=== PATIENT | female | born 1945 | race Caucasian/White ===

== ENCOUNTER 2023-09-15 21:13 | Emergency (ER) | payer MEDICARE, SELFPAY ==
--- NOTE | ~2023-09-15 | CT_ITS ---
Noncontrast CT scan of the cervical spine Technique: Multiple contiguous axial [address] images of the cervical spine were obtained and rec onstructed in 2D sagittal and coronal planes on the acquisition scanner. Dose reduction technique was used on this scan by utilizing automated exposure control, adjustment of the mA and/or kV according to patient size. The dose-length product (DLP) was 339.28 mGy-cm. Clinical History: Pain Findings: No acute fracture seen. There is 4 mm anterolisthesis of C3 over C4, with reversal normal c ervical lordosis. There is severe degenerative disc narrowing throughout the cervical spine. There is fusion of the facet joints at C4-C5, with partial fusion across this disc space. There is advanced d egenerative change at the articulation of the odontoid process with the anterior arch of C1. There is left neural foraminal narrowing at C2-C3 with probable left facet arthropathy. There is bilateral ne ural foraminal narrowing at C3-C4 with severe facet arthropathy bilaterally. There is bilateral neura l foraminal narrowing at C4-C5 and C5-C6. There is moderate canal stenosis at C5-C6. There is bilater al neural foraminal narrowing at C6-C7, with moderate canal stenosis. No prevertebral soft tissue swe lling. Impression: No acute fracture. 4 mm anterolisthesis of C3 over C4. Severe degenerative spondylosis, as above. Reviewed, dictated and finalized at [facility]. Impression: No acute fracture. 4 mm anterolisthesis of C3 over C4. Severe degenerative spondylosis, as above.
--- NOTE | ~2023-09-15 | XR_ITS ---
EXAM: XR hip LT 2V w AP pelvis DATE: 09/15/2023 23:06 HISTORY: fall . COMPARISON: None available. FINDINGS: Decreased mineralization. Lumbar degenerative disc disease. 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 Scattered vascular calcifications. IMPRESSION: No acute osseous finding in the pelvis. Reviewed, dictated and finalized at location K.
--- NOTE | ~2023-09-15 | XR_ITS ---
EXAMINATION: XR chest 1V portable Exam Date/Time: 09/15/2023 21:55 CDT HISTORY: weakness Comparison: None. RESULT: Lines, tubes, and devices: None. Lungs and pleura: Rightward rotation. Possible right suprahilar mass with adjacent atelectasis. [place] scent/emphysematous changes in the lungs.. Cardiomediastinal silhouette: Unremarkable. Other: No acute osseous or upper abdominal finding. IMPRESSION: Rotation limited examination, possible right hilar mass. Consider CT of the chest with contrast for f urther evaluation. Reviewed, dictated and finalized at location K. IMPRESSION: Rotation limited examination, possible right hilar mass. Consider CT of the [address] st with contrast for further evaluation.
--- NOTE | ~2023-09-15 | CT_ITS ---
CT head without contrast Indication: Status post fall Technique: Serial scans were obtained through the brain without the administration of contrast. Dose reduction technique was used on this scan by utilizing automated exposure control and iterative recon struction technique. The dose-length product (DLP) was 605.33 mGy-cm. Findings: There is no evidence of intracranial hemorrhage, mass lesion, or acute infarct. The ventri cles and subarachnoid spaces are dilated, consistent with mild atrophy. Low attenuation regions are seen within the periventricular white matter bilaterally, likely representing changes from chronic mi crovascular ischemic disease. There is no evidence of edema, mass effect or midline shift. The visu alized paranasal sinuses and mastoid air cells are clear. Impression: No intracranial hemorrhage, mass, or acute infarct. Atrophy and chronic white matter changes, as above. Reviewed, dictated and finalized at location . Impression: No intracranial hemorrhage, mass, or acute infarct. Atrophy and chronic white matter changes, as above.
--- NOTE | ~2023-09-15 | XR_ITS ---
EXAM: XR knee LT 3V, XR tibia fibula LT 2V, XR ankle LT min 3V DATE: 09/15/2023 23:06 HISTORY: fall this evening; bruising to left lower leg . COMPARISON: None available. FINDINGS: Decreased mineralization. Comminuted fracture of the distal left tibial metaphysis, with e xtension of fracture lines to the ankle joint, 6 mm medial displacement, 5 mm anterior displacement, and minimal 3 degrees lateral angulation. Comminuted fracture of the distal left fibula above the lev el of the joint line, with 3 mm lateral displacement, 2 mm anterior displacement, minimal 2 degrees o f medial angulation, and 8 degrees anterior angulation. No lytic or blastic lesion. Degenerative olguin ges in the knee and ankle joint. Achilles enthesopathy No erosion or periosteal change. Soft tissues within normal limits. IMPRESSION: No acute osseous finding in the knee. Comminuted intra-articular fracture of the distal left tibial metaphysis, with mild anteromedial disp lacement and minimal lateral angulation. Comminuted distal left fibular fracture, with minimal juan lateral displacement and mild anterior angulation. Reviewed, dictated and finalized at location K. IMPRESSION: No acute osseous finding in the knee. Comminuted intra-articular fracture of the distal left tibial metaphysis, with mild anteromedial displacement and minimal lateral angulation. Comminuted dista l left fibular fracture, with minimal anterolateral displacement and mild anter ior angulation. IMPRESSION: No acute osseous finding in the knee. Comminuted intra-articular fracture of the distal left tibial metaphysis, with mild anteromedial displacement and minimal lateral angulation. Comminuted dista l left fibular fracture, with minimal anterolateral displacement and mild anter ior angulation.
[2023-09-15 21:14] VITALS: BP 125/63; PULSE 109; RESP 15; TEMP 37.1; O2SAT 97
--- NOTE | 2023-09-15 21:30 | ECG_ITS ---
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 Measurements Intervals [place] Rate: 125 P: 42 WV: 145 QRS: 42 QRSD: 78 T: 50 QT: 290 QTc: 419 Interpretive Statements SINUS TACHYCARDIA WITH OCCASIONAL SUPRAVENTRICULAR PREMATURE COMPLEXES SEPTAL MYOCARDIAL INFARCTION , PROBABLY OLD [40+ ms Q WAVE IN V1/V2] No previous ECG available for comparison Electronically Signed On 09-16-2023 13:56:24 CDT by Ricarda Gonzales M.D.
[2023-09-15 21:31] VITALS: BP 129/73; PULSE 130; RESP 14; O2SAT 96
[2023-09-15 21:42] LABS: Basophils Percent Auto 0.2 % (0.2-1.2); Eosinophils Percent Auto 0.1 % (0-4.4); Hemoglobin 13.3 g/dL (12.0-15.0); Immature Granulocyte Absolute 0.07 K/mm3 (0.00-0.031); Immature Granulocyte Percent A 0.5 % (0-0.5); Lymphocytes Absolute Auto 1.34 K/mm3 (0.9-3.2); Lymphocytes Percent Auto 9.6 % (18.3-44.2); Mean Corpuscular HGB Conc 32.4 g/dl (32-36); Mean Corpuscular Hemoglobin 29.6 pg (26-34); Mean Corpuscular Volume 91.1 fl (80-100); Monocytes Absolute Auto 1.5 K/mm3 (0.1-0.6); Monocytes Percent Auto 10.8 % (2.6-8.5); Neutrophils Percent Auto 78.8 % (45.5-73.1); Platelet Count Result 233 k/mm3 (150-375); Red Cell Distribution Width 12.8 % (11.5-14.5); White Blood Count 13.9 K/mm3 (4.5-10.0)
[2023-09-15 21:44] LABS: Appearance Urine Clear (Clear); Bilirubin Urine Negative (Negative); Blood Urine 2+ (Negative); Color Urine Dark Yellow (Yellow); Glucose Urine UA Negative (Negative); Ketones Urine 3+ mg/dL (Negative); Leukocyte Esterase Ur Negative LEU/UL (Negative); Nitrate Urine Negative (Negative); Protein Urine 3+ mg/dL (Negative); Specific Grav Ur 1.026 (1.001-1.035); pH Urine 5.5 (5.0-9.0)
[2023-09-15 21:45] LABS: Bacteria Urine None Seen /hpf; Non Pathogenic Casts 0-2; Squamous Epithelial Cell Urine None Seen /hpf (Few); WBC Urine 0-5 /hpf (0-3)
[2023-09-15 21:48] LABS: Add Urine Microscopic? YES
[2023-09-15 21:52] LABS: Alanine Aminotransferase 35 U/L (6-35); Albumin Level 3.8 g/dL (3.5-5.1); Alkaline Phosphatase 83 U/L (38-126); Anion Gap 6 mmol/L (4-12); Aspartate Amino Transferase 85 U/L (14-36); Bilirubin,Total 1.3 mg/dL (0.2-1.3); Blood Urea Nitrogen 17 mg/dL (7-17); Calcium 8.8 mg/dL (8.4-10.2); Carbon Dioxide 27 mmol/L (22-30); Chloride 102 mmol/L (98-107); Estimated CRCL calculation 72 ml/min; Estimated Glomerular Filt Rate > 60; Glucose 102 mg/dL (65-110); Potassium 3.8 mmol/L (3.4-5.0); Sodium 135 mmol/L (137-145)
[2023-09-15 22:01] VITALS: BP 114/71; PULSE 103; RESP 20; O2SAT 96
[2023-09-15 22:31] VITALS: BP 132/81; PULSE 122; RESP 20; O2SAT 95
[2023-09-15 23:05] VITALS: BP 128/106; O2SAT 97
--- NOTE | 2023-09-15 23:19 | ED.FALL ---
HPI - Fall General Chief Complaint: Fall <HE Snider Last Filed: 09/16/23 01:18> Stated Complaint: fall <HE Snider Last Filed: 09/16/23 01:18> Time Seen by Provider: 09/15/23 22:56 <HE Snider Last Filed: 09/16/23 01:18> Source: patient <HE Snider Last Filed: 09/16/23 01:18> Mode of arrival: ambulatory <HE Snider Last Filed: 09/16/23 01:18> Limitations: no limitations <HE Snider Last Filed: 09/16/23 01:18> History of Present Illness HPI Narrative: Patient is a 78-year-old female who presents to the ED via EMS with report of a fall. Patient reports she fell yesterday morning (Thursday) around 430am in her bathroom. She states the floor was slick and her walker rolled forward, causing her to fall. She twisted her left leg in the fall. Was unable to get up off the ground due to pain in her left leg/ankle. She states she laid on the ground until Thursday evening when she was able to crawl to her phone to call her daughter. Daughter was unable to lift her off the floor, EMS was called around 7pm. Patient complains of pain to her left ankle. Denies left knee or hip pain. Also reports that her right fingers feel tingly. Denies numbness. Denies neck or back pain. She does not believe that she hit her head in the fall. Denies chest or abdominal pain. <HE Snider Last Filed: 09/16/23 01:18> Related Data Allergies/Adverse Reactions: Allergies Allergy/AdvReac Type Severity Reaction Status Date / Time No Known Allergies Allergy Verified 09/15/23 23:23 <HE Snider Last Filed: 09/16/23 01:18> Review of Systems Review of Systems: CONSTITUTIONAL: Denies fever, chills, or sweats. ENT: Denies vision changes. CARDIOVASCULAR: Denies chest pain. RESPIRATORY: Denies dyspnea. GASTROINTESTINAL: Denies abdominal pain, nausea, vomiting. MUSCULOSKELETAL: See HPI. NEUROLOGIC: See HPI. <Christine Wilcox PA-C - Last Filed: 09/16/23 01:18> All systems reviewed & are unremarkable except as noted in HPI and below <Christine Wilcox PA-C - Last Filed: 09/16/23 01:18> Exam Narrative: GENERAL: Elderly, obese with BMI of 30.6, non-toxic, in no acute distress. HEAD: Normocephalic, atraumatic. ENT: Edentulous. RESPIRATORY: Airway patent, respirations nonlabored. Clear to auscultation bilaterally, no rales, rhonchi, wheezing. CARDIOVASCULAR: Regular rate and rhythm without murmurs, rubs, or gallops. peripheral pulses easily palpable. MUSCULOSKELETAL: Limited range of motion of left lower extremity due to pain. Significant bruising noted to left lower leg. Tenderness to palpation diffusely throughout left ankle joint. Mild swelling noted, some pitting edema noted throughout left lower extremity. Sensation is intact throughout foot and ankle. Capillary refill intact. No significant tenderness throughout left knee or hip joint. Sensation intact throughout right arm but patient reporting subjective decreased sensation throughout right fingers. Sharp touch sensation is intact. Capillary refill intact. No significant tenderness throughout right upper extremity. No tenderness throughout cervical spine. SKIN: Warm, dry, normal color. NEURO: A&O X3. Speech clear. PSYCHIATRIC: Appropriate mood and affect. Normal interaction. <Christine Wilcox PA-C - Last Filed: 09/16/23 01:18> Course [employer]/PA Physician Supervision For this patient encounter, I reviewed the [employer] or PA documentation, treatment plan, and medical decision making and had [id number] time with this patient. I performed all aspects of the MDM as documented. <Mandy Martinez MD - Last Filed: 09/16/23 03:49> Vital Signs Vital signs: Vital Signs Temperature 98.8 F 09/15/23 21:14 Pulse Rate 109 H 09/15/23 21:14 Respiratory Rate 15 09/15/23 21:14 Blood
[2023-09-15 23:32] LABS: Magnesium 1.7 mg/dL (1.6-2.3)
[2023-09-15] MEDS: ONDANSETRON INJ 4 MG/2 ML VIAL IV PUSH (23:44)
[2023-09-15] MEDS: MORPHINE SULFATE (*CRX) 2 MG/ML INJ IV PUSH (23:44)
[2023-09-15] MEDS: ACETAMINOPHEN 325 MG TABLET 650 MG PO (23:44)
[2023-09-15] MEDS: SODIUM CHLORIDE 0.9% IV 1,000 ML 999 ML IV CONT (23:45)
[2023-09-16 00:09] LABS: Creatine Kinase 2029 U/L (30-135)
[2023-09-16 00:19] LABS: NT Pro B Type Natriuretic Pept 615 pg/mL (19.9-100)
[2023-09-16] MEDS: MAGNESIUM SULF 1 GM/D5W 100 ML 1 GM/100 ML BAG IVPB (00:43)
[2023-09-16] MEDS: SODIUM CHLORIDE 0.9% IV 1,000 ML 999 ML IV CONT (00:44)
[2023-09-16 01:01] VITALS: BP 118/61; PULSE 97; RESP 15; O2SAT 98
[2023-09-16] MEDS: ONDANSETRON INJ 4 MG/2 ML VIAL IV PUSH (01:29)
[2023-09-16] MEDS: MORPHINE SULFATE (*CRX) 4 MG/ML INJ IV PUSH (01:29)
[2023-09-16 01:31] VITALS: BP 98/57; PULSE 92; RESP 20; O2SAT 94
== END 2023-09-16 02:00 | disposition short-term general hospital (02) ==
PROVIDERS: Student in an Organized Health Care Education/Training Program; Emergency Provider Physician Assistant
DX: S89.192A Other physeal fracture of lower end of left tibia, initial encounter for closed fracture (principal); S82.832A Other fracture of upper and lower end of left fibula, initial encounter for closed fracture; T79.6XXA Traumatic ischemia of muscle, initial encounter; E86.0 Dehydration; E66.9 Obesity, unspecified; Z68.30 Body mass index [BMI] 30.0-30.9, adult; M47.812 Spondylosis without myelopathy or radiculopathy, cervical region; R00.0 Tachycardia, unspecified; I49.1 Atrial premature depolarization; R94.31 Abnormal electrocardiogram [ECG] [EKG]; W01.0XXA Fall on same level from slipping, tripping and stumbling without subsequent striking against object, initial encounter
CPT/HCPCS: 36415; 70450; 71045; 72125; 73502; 73562; 73590; 73610; 80053; 81001; 82550; 83735; 83880; 85025; 93005; 96361; 96365; 96375; 96376; 99285; A9270; J2270; J2405; J3475; J7030

== ENCOUNTER 2023-11-29 14:07 | Emergency (ER) | payer MEDICARE, SELFPAY ==
--- NOTE | ~2023-11-29 | CT_ITS ---
EXAMINATION: CT cervical spine wo con DATE: 11/29/2023 16:24 INDICATION: Neck pain. TECHNIQUE: Computed tomography (CT) of the cervical spine was performed without intravenous contrast. Automated exposure control and iterative reconstruction technique were employed. The dose-length pro duct was 238.98 mGy-cm. COMPARISON: CT cervical spine 09/16/2023 FINDINGS: There is mild emphysema. There is mild scarring at the lung apices. There is 5 degrees levo curvature of cervical spine. There is 2 mm anterolisthesis of C4 on C5. There is kyphosis of cervical spine. There are changes of posterior fusion procedure from C2 to C7 with lateral mass screws and pe dicle screws at some levels. There are laminectomies from C3 to C6. Vertebral body heights are normal . There is severely decreased disc height from C3-C4 through C7-T1 with interbody fusion at C4-C5. Th e following disc levels are specifically discussed: C2-C3: There is mild bilateral uncovertebral joint osteoarthritis. There is severe bilateral facet mauro int osteoarthritis. There is mild right and moderate left neural foraminal stenosis. There is mild ce ntral canal stenosis. C3-C4: There is severe bilateral uncovertebral joint osteoarthritis. There is severe right and modera te left facet joint osteoarthritis. There is moderate right and mild left neural foraminal stenosis. There is mild central canal stenosis with posterior decompression. C4-C5: There is severe right and moderate left uncovertebral joint hypertrophy. There is mild right a nd severe left facet joint hypertrophy. There is mild right and moderate left neural foraminal stenos is. There is mild central canal stenosis with posterior decompression. C5-C6: There is severe bilateral uncovertebral joint osteoarthritis. There is severe bilateral facet joint osteoarthritis. There is moderate bilateral neural foraminal stenosis. There is mild central ca nal stenosis with posterior decompression. C6-C7: There is severe bilateral uncovertebral joint osteoarthritis. There is moderate bilateral face t joint osteoarthritis. There is mild right and moderate left neural foraminal stenosis. There is mil d central canal stenosis with posterior decompression. C7-T1: There is severe bilateral uncovertebral joint osteoarthritis. There is severe bilateral facet joint osteoarthritis. There is moderate bilateral neural foraminal stenosis. There is mild central ca nal stenosis. IMPRESSION: 1. No fracture. 2. Severe cervical spondylosis. 3. Posterior fusion procedure from C2 to C7. Reviewed, dictated and finalized at location E.
--- NOTE | ~2023-11-29 | CT_ITS ---
EXAMINATION: CT thoracic lumbar wo con DATE: 11/29/2023 16:25 INDICATION: Back pain. TECHNIQUE: Computed tomography (CT) of the thoracic and lumbar spine was performed without intravenou s contrast. Automated exposure control and iterative reconstruction technique were employed. The dose -length product was 1479.10 mGy-cm. COMPARISON: None FINDINGS: CT THORACIC SPINE: There is a moderate-sized sliding hiatal hernia. There is mild scarring at the zaid g apices. Bone alignment is normal. There is mild chronic anterior wedging of T6 and T12 vertebral juanjose dies. There is decreased disc height at most levels, severe from T1-T2 through T6-T7 and at T12-L1. T here is multilevel facet joint osteoarthritis, severe at some levels. There is multilevel mild neural foraminal stenosis. On the right, there is moderate neural foraminal stenosis at T1-T2 and T2-T3. On the left, there is moderate neural foraminal stenosis at T1-T2 and T2-T3. There is mildly decreased disc height at most levels. CT LUMBAR SPINE: There is 9 degrees dextrocurvature of lumbar spine. There is 3 mm anterolisthesis of L5 on S1. There is mild chronic anterior wedging of L1 vertebral body. There is severely decreased d isc height from L1-L2 through L5-S1. The following disc levels are specifically discussed: L1-L2: The disc is bulging. There is severe bilateral facet joint osteoarthritis. There is moderate b ilateral neural foraminal stenosis. There is mild central canal stenosis. L2-L3: The disc is bulging. There is severe bilateral moderate bilateral facet joint osteoarthritis. There is no neural foraminal stenosis. There is severe central canal stenosis. L3-L4: The disc is bulging. There is severe bilateral facet joint osteoarthritis. There is moderate r ight and mild left neural foraminal stenosis. There is moderate central canal stenosis. L4-L5: The disc is bulging. There is severe bilateral facet joint osteoarthritis. There is moderate b ilateral neural foraminal stenosis. There is mild central canal stenosis. L5-S1: The disc is bulging. There is severe bilateral facet joint osteoarthritis. There is moderate b ilateral neural foraminal stenosis. There is mild central canal stenosis. IMPRESSION: 1. No fracture. 2. Superior thoracic and lumbar spondylosis. 3. Moderate-sized sliding hiatal hernia. Reviewed, dictated and finalized at location E.
[2023-11-29 14:13] VITALS: BP 149/77; PULSE 70; RESP 20; TEMP 36.4; O2SAT 97
[2023-11-29] MEDS: MORPHINE SULFATE (*CRX) 4 MG/ML INJ IV PUSH (15:53)
[2023-11-29] MEDS: diazePAM INJ (*CRX) 10 MG/2 ML SYRINGE 5 MG IV PUSH (15:54)
[2023-11-29 16:00] VITALS: BP 148/74; PULSE 100; RESP 18; TEMP 36.8; O2SAT 96
[2023-11-29 16:10] LABS: Basophils Percent Auto 0.3 % (0.2-1.2); Eosinophils Absolute Auto 0.2 K/mm3 (0-0.3); Eosinophils Percent Auto 1.5 % (0-4.4); Hematocrit 42.3 % (37.0-47.0); Hemoglobin 12.7 g/dL (12.0-15.0); Immature Granulocyte Absolute 0.03 K/mm3 (0.00-0.031); Immature Granulocyte Percent A 0.3 % (0-0.5); Lymphocytes Absolute Auto 1.56 K/mm3 (0.9-3.2); Mean Corpuscular Hemoglobin 26.4 pg (26-34); Mean Corpuscular Volume 87.9 fl (80-100); Mean Platelet Volume 9.7 fl (7.4-10.4); Monocytes Absolute Auto 0.9 K/mm3 (0.1-0.6); Monocytes Percent Auto 8.7 % (2.6-8.5); Neutrophils Absolute Auto 7.1 K/mm3 (1.3-6.7); Neutrophils Percent Auto 73.2 % (45.5-73.1); Platelet Count Result 359 k/mm3 (150-375); Red Blood Count 4.81 M/mm3 (4.2-5.4); Red Cell Distribution Width 14.5 % (11.5-14.5); White Blood Count 9.8 K/mm3 (4.5-10.0)
[2023-11-29 16:20] LABS: Alanine Aminotransferase 7 U/L (6-35); Albumin Level 3.9 g/dL (3.5-5.1); Alkaline Phosphatase 86 U/L (38-126); Anion Gap 7 mmol/L (4-12); Aspartate Amino Transferase 18 U/L (14-36); Bilirubin,Total 0.6 mg/dL (0.2-1.3); Blood Urea Nitrogen 9 mg/dL (7-17); Carbon Dioxide 30 mmol/L (22-30); Chloride 100 mmol/L (98-107); Estimated CRCL calculation 72 ml/min; Estimated Glomerular Filt Rate > 60; Glucose 121 mg/dL (65-110); Magnesium 1.7 mg/dL (1.6-2.3); Potassium 3.9 mmol/L (3.4-5.0); Sodium 137 mmol/L (137-145)
[2023-11-29] MEDS: MAGNESIUM SULF 2 GM/WATER 50ML 2 GM/50 ML BAG IVPB (17:45)
--- NOTE | 2023-11-29 18:30 | ED.GENADULT ---
HPI - General Adult General Chief complaint: Back Pain/Injury Stated complaint: body spasms Time Seen by Provider: 11/29/23 15:22 History of Present Illness HPI narrative: Patient is a 78-year-old female who presents emergency department from intercourse in [facility] where he has been undergoing rehab after having cervical surgery at a another hospital. Patient reports that she has been having spasms for the last several days has been multiple different antispasmodics the been given to her without relief. The patient reports that the most ambulation she has been able do was get up to a chair or to a wheelchair. The patient reports no new focal weakness reports that she has had no fever denies drainage from the wounds. Related Data Allergies Allergy/AdvReac Type Severity Reaction Status Date / Time No Known Allergies Allergy Verified 09/15/23 23:23 Review of Systems Review of Systems: A 10 system review of systems was completed on the patient and is negative except for what is stated in the HPI. Nursing and ancillary documentation was reviewed. Exam Narrative: GENERAL: Well-appearing, well-nourished, and in moderate acute pain distress. HEAD: Normocephalic, atraumatic. EYES: PERRLA and EOMI. ENT: Nares clear, no rhinorrhea or epistaxis. Mucous membranes moist. NECK: Supple. CHEST: Clear to auscultation. No respiratory distress. HEART: Regular rate and rhythm. No murmur heard. Normal peripheral pulses. ABDOMEN: Soft, nontender, nondistended, normal active bowel sounds. EXTREMITIES: Normal range of motion. No edema. SKIN: Warm, dry, no rash. NEURO: No focal deficits. Alert and oriented x3. PSYCH: Normal mood and affect. Course Vital Signs Vital signs: Vital Signs Temperature 36.4 C 11/29/23 14:13 Pulse Rate 70 11/29/23 14:13 Respiratory Rate 20 11/29/23 14:13 Blood Pressure 149/77 H 11/29/23 14:13 Pulse Oximetry 97 11/29/23 14:13 Oxygen Delivery Room Air 11/29/23 14:13 Temperature 36.8 C 11/29/23 16:00 Pulse Rate 100 11/29/23 16:00 Respiratory Rate 18 11/29/23 16:00 Blood Pressure 148/74 H 11/29/23 16:00 Pulse Oximetry 96 11/29/23 16:00 Oxygen Delivery Room Air 11/29/23 14:13 Medical Decision Making [facility] Narrative Medical decision making narrative: Differential diagnosis includes muscle spasms, infectious process, failure of surgery, postoperative pain Laboratory studies were obtained on the patient showed a white count of 9.8 electrolytes are within normal limits CT cervical spine showed 1. No fracture. 2. Severe cervical spondylosis. 3. Posterior fusion procedure from C2 to C7. CT thoracic lumbar spine showed 1. No fracture. 2. Superior thoracic and lumbar spondylosis. 3. Moderate-sized sliding hiatal hernia. Patient was given Valium and additional pain control and the patient reports her spasms are doing much better the patient will be added to a prescription with Valium for spasm control in the patient should follow-up with her spine surgeon this week Vital Signs Vital Signs: Vital Signs Temperature 36.4 C 11/29/23 14:13 Pulse Rate 70 11/29/23 14:13 Respiratory Rate 20 11/29/23 14:13 Blood Pressure 149/77 H 11/29/23 14:13 Pulse Oximetry 97 11/29/23 14:13 Oxygen Delivery Room Air 11/29/23 14:13 Temperature 36.8 C 11/29/23 16:00 Pulse Rate 100 11/29/23 16:00 Respiratory Rate 18 11/29/23 16:00 Blood Pressure 148/74 H 11/29/23 16:00 Pulse Oximetry 96 11/29/23 16:00 Oxygen Delivery Room Air 11/29/23 14:13 Lab Data 11/29/23 16:04 11/29/23 16:04 Labs: Lab Results 11/29/23 Range/Units 16:04 WBC 9.8 (4.5-10.0) K/mm3 RBC 4.81 (4.2-5.4) M/mm3 Hgb 12.7 (12.0-15.0) g/dL Hct 42.3 (37.0-47.0) % MCV 87.9 (80-100) fl MCH 26.4 (26-34) pg MCHC 30.0 L (32-36) g/dl RDW 14.5 (11.5-14.5) % Plt Count 359 D (150-375) k/mm3 MPV 9.7 (7.
--- NOTE | 2023-11-29 18:42 | PC.NURSE ---
11/29/23 18:37 - Nurse Note by Quynh Savage, RN Pts Director Of Infection Prevention Franca Melo notified of POC to transfer pt back to [facility] with RX for spams & pt to follow up with surgeon at [facility]. Franca voices understanding & is agreeable. RN called [facility] spoke with Yesi who states nurse unavailable, RN left message with contact number to return call. RN verified facility address with Yesi Initialized on 11/29/23 18:37 - END OF NOTE
[2023-11-29 19:14] VITALS: BP 131/80; PULSE 90; RESP 16; TEMP 36.7; O2SAT 98
--- NOTE | 2023-12-23 08:58 | PC.NURSE ---
LATE ENTRY This note is being entered to document information to the patient's record. The following information was omitted on [11/29/23], by [Quynh Savage RN]. Magnesium stop time 184.
== END 2023-11-29 19:17 ==
PROVIDERS: Emergency Provider Emergency Medicine
DX: R25.2 Cramp and spasm (principal); Z98.1 Arthrodesis status; M47.816 Spondylosis without myelopathy or radiculopathy, lumbar region; M47.814 Spondylosis without myelopathy or radiculopathy, thoracic region; M47.812 Spondylosis without myelopathy or radiculopathy, cervical region; K44.9 Diaphragmatic hernia without obstruction or gangrene
CPT/HCPCS: 36415; 72125; 72128; 72131; 80053; 83735; 85025; 96365; 96375; 99284; J2270; J3360; J3475

== ENCOUNTER 2023-12-21 20:47 | Inpatient (IN) | payer MEDICARE, SELFPAY ==
[2023-12-21] VITALS (17 sets, daily range): BP systolic 92–139; BP diastolic 72–95; PULSE 88–141; RESP 15–36; TEMP 36–36.8; O2SAT 91–100
--- NOTE | ~2023-12-21 | XR_ITS ---
EXAM: XR foot LT min 3V DATE: 12/21/2023 22:01 HISTORY: Calcaneus ulceration. COMPARISON: None available. FINDINGS: Status post internal fixation of the distal tibia and fibula. Severely decreased mineraliza tion. No fracture or dislocation. No lytic or blastic lesion. Joint spaces are maintained. Minimal Ac hilles and plantar enthesopathy. Possible erosion at the proximal fifth metatarsal. Forefoot soft tis geovanni swelling. IMPRESSION: Severe osteopenia, which limits radiographic sensitivity. Possible subtle erosion at the proximal fifth metatarsal tuberosity, without definite overlying soft tissue defect, may be an artifact of osteopenic change, correlate for pain/tenderness or other overly ing soft tissue pathology. No definite radiology evidence of osteomyelitis involving the calcaneus. Reviewed, dictated and finalized at location K. IMPRESSION: Severe osteopenia, which limits radiographic sensitivity. Possible subtle erosion at the proximal fifth metatarsal tuberosity, without de finite overlying soft tissue defect, may be an artifact of osteopenic change, c orrelate for pain/tenderness or other overlying soft tissue pathology. No definite radiology evidence of osteomyelitis involving the calcaneus.
--- NOTE | ~2023-12-21 | CT_ITS ---
CT head without contrast Indication: Altered mental status COMPARISON: 09/15/2023 Technique: Serial scans were obtained through the brain without the administration of contrast. Dose reduction technique was used on this scan by utilizing automated exposure control and iterative recon struction technique. The dose-length product (DLP) was 605.33 mGy-cm. Findings: There is no evidence of intracranial hemorrhage, mass lesion, or acute infarct. The ventri cles and subarachnoid spaces are dilated, consistent with mild atrophy. Low attenuation regions are seen within the periventricular white matter bilaterally, likely representing changes from chronic mi crovascular ischemic disease. There is no evidence of edema, mass effect or midline shift. The visu alized paranasal sinuses and mastoid air cells are clear. Impression: No intracranial hemorrhage, mass, or acute infarct. Atrophy and chronic white matter changes, as above. Reviewed, dictated and finalized at location . Impression: No intracranial hemorrhage, mass, or acute infarct. Atrophy and chronic white matter changes, as above.
--- NOTE | ~2023-12-21 | XR_ITS ---
EXAMINATION: XR chest port-a-cath/central DATE: 12/23/2023 11:16 INDICATION: Central line placement. TECHNIQUE: A single frontal view of the chest was obtained. COMPARISON: Chest view 12/21/2023, CT abdomen and pelvis 12/22/2023 FINDINGS: There is mild atelectasis in the lower lung zones. No pleural effusion or pneumothorax. The heart size is normal. There are changes of posterior fusion procedure in cervical spine. A right int ernal jugular central venous catheter is seen with tip in the superior vena cava. IMPRESSION: 1. Central line tip in the superior vena cava. 2. Mild atelectasis in the lower lung zones. Reviewed, dictated and finalized at location A.
--- NOTE | ~2023-12-21 | CT_ITS ---
Non-contrast CT scan of the Abdomen and Pelvis Clinical indication: Sepsis Technique: 2.5 mm axial scans were obtained through the abdomen and pelvis without intravenous or or al contrast. Dose reduction technique was used on this scan by utilizing automated exposure control a nd iterative reconstruction technique. The dose-length product (DLP) was 649.36 mGy-cm. Findings: Images through the lung bases reveal no abnormalities. There is moderate bilateral hydroureteronephrosis. No radiopaque stones. The liver, spleen, pancreas, and adrenals appear normal. Large gallstone present. There are atheroscl erotic calcifications of the aorta. There is no evidence of bowel obstruction. Images through the pelvis were performed. There is no evidence of ascites or lymphadenopathy. Guerrier c atheter and small amount of air present in distended urinary bladder. No pelvic mass evident. There is severe bilateral hip joint degenerative change. There is degenerative spondylosis of the lum bar spine. Probable sacral decubitus ulcer present at the level of the distal coccygeal tip and just distal. Impression: Sacral decubitus ulcer. Moderate bilateral hydroureteronephrosis, without evidence of stone. Cholelithiasis. Reviewed, dictated and finalized at [facility]. Impression: Sacral decubitus ulcer. Moderate bilateral hydroureteronephrosis, without evidence of stone. Cholelithiasis.
--- NOTE | ~2023-12-21 | XR_ITS ---
EXAMINATION: XR abdomen gastric tube insert DATE: 12/23/2023 11:16 INDICATION: Nasogastric tube placement. TECHNIQUE: A semierect view of the abdomen was obtained. COMPARISON: CT abdomen and pelvis 12/22/2023 FINDINGS: There are no dilated loops of bowel. The lower abdomen is excluded. The nasogastric tube ti p is in the stomach. The central line tip is in the superior vena cava. IMPRESSION: 1. Nasogastric tube tip in the stomach. Reviewed, dictated and finalized at location A.
--- NOTE | ~2023-12-21 | XR_ITS ---
EXAMINATION: XR chest 1V portable Exam Date/Time: 12/21/2023 21:45 CDT HISTORY: sepsis Comparison: 09/15/2023. RESULT: Lines, tubes, and devices: Incompletely visualized cervical fusion hardware. Lungs and pleura: Rightward rotation. No focal consolidation, pleural effusion, or pneumothorax. Cardiomediastinal silhouette: Stable enlargement of the aortic knob. Other: No acute osseous or upper abdominal finding. IMPRESSION: No acute cardiopulmonary process. Reviewed, dictated and finalized at location K.
--- NOTE | 2023-12-21 21:07 | ECG_ITS ---
Test Date: 2023-12-21 22:36:09 Measurements Intervals [place] Rate: 120 P: 78 UT: 160 QRS: 39 QRSD: 81 T: 67 QT: 293 QTc: 415 Interpretive Statements SINUS TACHYCARDIA WITH FREQUENT SUPRAVENTRICULAR PREMATURE COMPLEXES BASELINE ARTIFACT- I, II, III, AVR, AVL, AVF, V1-V6 ABNORMAL ECG Compared to ECG 09/15/2023 21:22:20 NO SIGNIFICANT CHANGE Electronically Signed On 12-22-2023 06:22:08 CDT by Marcin Bond D.O.
--- NOTE | 2023-12-21 21:25 | ED.GENADULT ---
HPI - General Adult General Chief complaint: Unspecified Stated complaint: failure to thrive Time Seen by Provider: 12/21/23 20:50 History of Present Illness HPI narrative: This is a 78-year-old female presented to the emergency department via EMS for failure to thrive. A wellness check was called to the patient's household where she was found the composing in her wheelchair. Patient was initially at a rehab facility at the end of November for debility and previous back surgery, muscle spasms. She left [facility] and went home. She has no family in the immediate vicinity close family members live in [place]. A family friend came and checked on her this morning and found that she was in same position she was at for a week, sitting in the wheelchair with stool and maggots around her. No visible food. Patient herself is normally alert oriented x4 on review of the documentation from previous visits but presently she is only alert x2, confused on where she is and how she got here. She she is complaining of feeling weak, but otherwise has no specific complaints. She is able to answer questions. Seems to be quite debilitated and contractured, with foul odor about her, so a clothing, maggots present on clothing. Related Data Allergies Allergy/AdvReac Type Severity Reaction Status Date / Time No Known Allergies Allergy Verified 09/15/23 23:23 Review of Systems Review of Systems: Unable to obtain secondary to patient's medical condition and mental status ROS unobtainable: Yes unobtainable due to medical condition and unobtainable due to mental status Exam Narrative: GENERAL: Septic appearing, not in any acute distress, answers questions, alert x2 HEAD: [Normocephalic, atraumatic.] EYES: [PERRLA and EOMI.] ENT: Nares clear, no rhinorrhea or epistaxis. Very dry mucous membranes NECK: Supple. CHEST: Coarse breath sounds, no respiratory distress HEART: [Regular rate and rhythm]. No murmur heard. [Normal peripheral pulses.] Cool extremities ABDOMEN: [Soft, nondistended], [nontender], [No rigidity or guarding] EXTREMITIES: Generalized weakness with limited active range of motion. 2+ peripheral edema SKIN: Stage II ulcerations around the trunk, elbows, knees. Stage III to stage IV ulcers in the sacrum with purulence and maggots present. Excoriations under the breast tissue and stage III ulcers underneath the breast tissue on the right side NEURO: No obvious focal deficits but alert oriented x2 PSYCH: Pleasant Course Vital Signs Vital signs: Vital Signs Temperature 36.8 C 12/21/23 20:47 Pulse Rate 88 12/21/23 20:47 Respiratory Rate 22 H 12/21/23 20:47 Pulse Oximetry 91 12/21/23 20:47 Oxygen Delivery Room Air 12/21/23 20:47 Temperature 36.1 C L 12/22/23 00:01 Pulse Rate 111 H 12/22/23 00:01 Respiratory Rate 18 12/22/23 00:01 Blood Pressure 178/154 H 12/22/23 00:01 Pulse Oximetry 95 12/22/23 00:01 Oxygen Delivery Room Air 12/21/23 20:47 Medical Decision Making MDM Narrative Medical decision making narrative: This is a 78-year-old female presenting for failure to thrive. She has diffuse excoriations and staging ulcers between 2 and 4 on her extremities, chest, sacrum. She was found sitting in a wheelchair for week. She has maggots and feces on her clothing. Patient is alert x2 but normally is wheelchair bound and alert x4 on previous documentation. She is afebrile here but saturating 91% saturation on room air with a difficult to obtain blood pressure. She is awake and able to ask questions and answer questions. Sacrum has a stage IV ulceration with feces and maggots present. Left heel has a dry dark appearing ulcer does not have any active weepage or drainage. 2+ pitting edema noted likely from protein calorie malnutrition and decompensation. Differential diagnosis at this time includes failure to thrive, sepsis, intra-abdominal process such as abscess formation, intracranial process
[2023-12-21 22:21] LABS: Basophils Absolute Auto 0.1 K/mm3 (0.0-0.1); Basophils Percent Auto 0.3 % (0.2-1.2); Hematocrit 38.6 % (37.0-47.0); Hemoglobin 12.6 g/dL (12.0-15.0); Immature Granulocyte Absolute 0.62 K/mm3 (0.00-0.031); Immature Granulocyte Percent A 1.4 % (0-0.5); Lymphocytes Absolute Auto 1.08 K/mm3 (0.9-3.2); Lymphocytes Percent Auto 2.4 % (18.3-44.2); Mean Corpuscular HGB Conc 32.6 g/dl (32-36); Mean Corpuscular Hemoglobin 26.2 pg (26-34); Mean Corpuscular Volume 80.2 fl (80-100); Mean Platelet Volume 11.2 fl (7.4-10.4); Monocytes Absolute Auto 1.5 K/mm3 (0.1-0.6); Monocytes Percent Auto 3.3 % (2.6-8.5); Neutrophils Absolute Auto 41.2 K/mm3 (1.3-6.7); Neutrophils Percent Auto 92.6 % (45.5-73.1); Platelet Count Result 363 k/mm3 (150-375); Red Blood Count 4.81 M/mm3 (4.2-5.4); Red Cell Distribution Width 15.6 % (11.5-14.5); White Blood Count 44.5 K/mm3 (4.5-10.0)
[2023-12-21] MEDS: LACTATED RINGERS 1,000 ML 999 ML IV CONT ×2 (22:29→22:30)
[2023-12-21 22:32] LABS: INR 1.3; Prothrombin Time 16.8 Seconds (11.1-14.7)
--- NOTE | 2023-12-21 22:32 | PC.NURSE ---
Lab states that they are unable to run the CRP due to a machine malfunction. Dr Jyotsna varma.
[2023-12-21 22:33] LABS: Partial Thromboplastin Time 23.1 Seconds (22.3-36.8)
[2023-12-21 22:36] LABS: Lactic Acid Reflex 3.7 mmol/L (0.7-2.0)
[2023-12-21 22:47] LABS: Troponin I < 0.012 ng/mL (0.000-0.034)
[2023-12-21 22:59] LABS: Add Urine Microscopic? YES; Appearance Urine Cloudy (Clear); Bacteria Urine 4+ /hpf; Bilirubin Urine 1+ (Negative); Blood Urine 1+ (Negative); Color Urine Dark Yellow (Yellow); Glucose Urine UA Negative (Negative); Ketones Urine Negative (Negative); Leukocyte Esterase Ur 3+ LEU/UL (Negative); Nitrate Urine Negative (Negative); Non Pathogenic Casts 0-2; Protein Urine 1+ mg/dL (Negative); RBC Urine 0-2 /hpf (0-2); Specific Grav Ur 1.017 (1.001-1.035); Squamous Epithelial Cell Urine None Seen /hpf (Few); WBC Urine >100 /hpf (0-3); pH Urine 5.5 (5.0-9.0)
--- NOTE | 2023-12-21 23:43 | PC.NURSE ---
warm blankets placed on patient to assist with increasing temperature. Patient to ED covered in feces, urine, blood, and other bodily fluids. patient was cleaned up, clothing required being cut off. patient had multiple wounds throughout body coccyx- a very large wound dark in color, slough, unstagable. groin right side- very deep wound in the fold of top of the thigh, runs the length of the leg/labia. has a lot of drainage, and slough maggots were not present in any of the wounds, but one maggot was found in the blankets while cleaning the patient. patient inner labia was necrotic looking with large hardened tissue and wounds. patient has multiple other wounds throughout body. Patient has been bathed, changed, had linen changes patient is continent of and a collado catheter was placed. daughter was called with an update and is unable to come to the hospital but would like continued updates. patient noncompliant with medications.
[2023-12-21 23:51] LABS: Bilirubin,Total 0.9 mg/dL (0.2-1.3)
[2023-12-22] VITALS (50 sets, daily range): BP systolic 70–178; BP diastolic 46–154; PULSE 103–185; RESP 14–27; TEMP 36.1–37.5; O2SAT 91–100; BMI 27.8
--- NOTE | 2023-12-22 | ECHO_ITS ---
Patient Info Name: Aidee Domínguez Age: 78 years : 1945 Gender: Female Ht: 65 in Wt: 167 lbs BSA: 1.88 m2 HR: 131 bpm BP: 134 / 63 mmHg Heart Rhythm: Tachycardia Technical Quality: Fair Exam Date: 12/22/2023 1:10 PM Exam Location: Echo Lab Patient Status: Inpatient Admit Date: 12/22/2023 Staff Ordering Physician: Rodolfo Morton MD Mechanical Project Manager: Loren Culp RDCS Attending Provider: Manjit Flynn MD Exam Type: CA echo dop color flow w con Study Info Indications - LE edema Complete two-dimensional, color flow and Doppler transthoracic echocardiogram is performed. Contrast/Agitated Saline Contrast/Ag. Saline: Definity Amount: 2.00 ml Administered By: Loren Culp RDCS Existing IV Access: Yes IV Access Condition: patent with no signs of infiltration Summary 1. Left ventricular chamber dimension is normal. 2. Left ventricular systolic function is hyperdynamic, estimated at >70%. 3. There is mild asymmetric septal increased left ventricular wall thickness. 4. The left ventricular diastolic function is grade I diastolic dysfunction. 5. Right ventricular systolic function is normal. 6. Left atrial chamber dimension is mildly enlarged. 7. There is mild tricuspid valve regurgitation. 8. Normal inferior vena cava with >50% collapse upon inspiration consistent with normal right atrial pressure, 3 mmHg. Left Ventricle Left ventricular chamber dimension is normal. Left ventricular systolic function is hyperdynamic, estimated at >70%. There is mild asymmetric septal increased left ventricular wall thickness. The left ventricular diastolic function is grade I diastolic dysfunction. Right Ventricle Right ventricular chamber dimension is normal. Right ventricular systolic function is normal. Left Atria Left atrial chamber dimension is mildly enlarged. Right Atria Right atrial chamber dimension is normal. Atrial Septum Intact interatrial septum visualized by color flow imaging. Aortic Valve The aortic valve is trileaflet. There is no aortic valve stenosis. There is no aortic valve regurgitation. There is moderate aortic valve calcification. Pulmonic Valve The pulmonic valve is not well visualized. There is no pulmonic regurgitation. Mitral Valve There is trace mitral valve regurgitation. Tricuspid Valve There is mild tricuspid valve regurgitation. Pericardium/Pleural There is no pericardial effusion. Inferior Vena Cava Normal inferior vena cava with >50% collapse upon inspiration consistent with normal right atrial pressure, 3 mmHg. Aorta The aortic root size at the sinus of Valsalva is normal. Left Ventricular Outflow Tract Name Value Normal LVOT 2D LVOT Diameter 2.00 cm LVOT Doppler LVOT Peak Gradient 10 mmHg LVOT Mean Gradient 7 mmHg LVOT VTI 21.04 cm LVOT VTI/AV VTI Ratio 0.74 LVOT Stroke Volume 65.79 ml LVOT CO 11.24 l/min LVOT CI 5.97 L/min/m2 Pulmonic Valve
[2023-12-22 00:03] LABS: CRP 8.3 mg/dL (<1.0)
[2023-12-22] MEDS: CEFEPIME 2 GM/NS 50 ML 2 GM/50 ML BAG IVPB (00:04)
[2023-12-22 00:12] LABS: Blood Urea Nitrogen 140 mg/dL (7-17)
[2023-12-22 00:59] LABS: Alanine Aminotransferase 40 U/L (6-35); Albumin Level 3.6 g/dL (3.5-5.1); Alkaline Phosphatase 138 U/L (38-126); Anion Gap 22 mmol/L (4-12); Aspartate Amino Transferase 53 U/L (14-36); Calcium 8.8 mg/dL (8.4-10.2); Carbon Dioxide 13 mmol/L (22-30); Chloride 90 mmol/L (98-107); Glucose 135 mg/dL (65-110); Sodium 125 mmol/L (137-145)
[2023-12-22 01:18] LABS: Glucose Point of Care 105 mg/dl (65-105)
[2023-12-22 01:19] LABS: Reflex Lactic Acid Yes or No Add Lactic
[2023-12-22] MEDS: SODIUM BICARBONATE 8.4% 50 MEQ/50 ML SYRINGE IV PUSH (01:19)
[2023-12-22] MEDS: CALCIUM GLUCONATE 1,000 MG/10 ML VIAL 1000 MG IV PUSH (01:19)
[2023-12-22] MEDS: DEXTROSE 50% 25 GM/50 ML SYRINGE IV PUSH (01:19)
[2023-12-22] MEDS: INSULIN HUMAN REGULAR (*BKC) 100 UNITS/ML IV PUSH (01:26)
[2023-12-22 01:38] LABS: Estimated CRCL calculation 12 ml/min; Estimated Glomerular Filt Rate 12
[2023-12-22 01:48] LABS: Lactic Acid 2.5 mmol/L (0.7-2.0)
[2023-12-22 02:28] LABS: Anion Gap 18 mmol/L (4-12); Calcium 8.4 mg/dL (8.4-10.2); Carbon Dioxide 15 mmol/L (22-30); Chloride 94 mmol/L (98-107); Glucose 144 mg/dL (65-110); Potassium 5.2 mmol/L (3.4-5.0); Sodium 127 mmol/L (137-145)
[2023-12-22] MEDS: VANCOMYCIN 1,250 MG/NS 250 ML 1,250 MG/250 ML BAG 166.67 MG IVPB (02:30)
[2023-12-22 02:32] LABS: Estimated CRCL calculation 14 ml/min; Estimated Glomerular Filt Rate 13
[2023-12-22 02:37] LABS: Glucose Point of Care 114 mg/dl (65-105)
[2023-12-22 03:00] LABS: Blood Urea Nitrogen 139 mg/dL (7-17)
[2023-12-22 03:17] LABS: MRSA (PCR) NOT DETECTED (NOT DETECTE)
--- NOTE | 2023-12-22 05:46 | ADMGEN ---
This patient, Aidee Domínguez, was admitted to Intensive Care Unit-2. Patient/family oriented to hospital policies and general routines including ID bracelet, bed and alarms, visiting hours, pain management, procedures, bathroom and other care routines, personal items, smoking policy, room service/diet, and visiting hours. Information on how to activate the Rapid Response Team has been discussed. Patient/Family are encouraged to report perceived risks to care and to ask questions if they do not understand what they are told or what they should do.
[2023-12-22 06:18] LABS: Potassium 6.2 mmol/L (3.4-5.0)
[2023-12-22] MEDS: LACTATED RINGERS 1,000 ML 125 ML IV CONT (06:26)
[2023-12-22 06:54] LABS: Basophils Absolute Auto 0.1 K/mm3 (0.0-0.1); Basophils Percent Auto 0.2 % (0.2-1.2); Hematocrit 38.6 % (37.0-47.0); Hemoglobin 12.1 g/dL (12.0-15.0); Immature Granulocyte Absolute 0.41 K/mm3 (0.00-0.031); Immature Granulocyte Percent A 1.1 % (0-0.5); Lymphocytes Absolute Auto 0.99 K/mm3 (0.9-3.2); Lymphocytes Percent Auto 2.6 % (18.3-44.2); Mean Corpuscular HGB Conc 31.3 g/dl (32-36); Mean Corpuscular Hemoglobin 25.7 pg (26-34); Mean Corpuscular Volume 82.1 fl (80-100); Mean Platelet Volume 11.5 fl (7.4-10.4); Monocytes Absolute Auto 0.9 K/mm3 (0.1-0.6); Monocytes Percent Auto 2.3 % (2.6-8.5); Neutrophils Absolute Auto 35.3 K/mm3 (1.3-6.7); Neutrophils Percent Auto 93.8 % (45.5-73.1); Nucleated Red Blood Cells Perc 0.1 % (0.0-0.2); Platelet Count Result 304 k/mm3 (150-375); Red Cell Distribution Width 15.9 % (11.5-14.5); White Blood Count 37.7 K/mm3 (4.5-10.0)
[2023-12-22 07:03] LABS: Alanine Aminotransferase 35 U/L (6-35); Albumin Level 3.1 g/dL (3.5-5.1); Alkaline Phosphatase 110 U/L (38-126); Anion Gap 18 mmol/L (4-12); Aspartate Amino Transferase 59 U/L (14-36); Bilirubin,Total 1.2 mg/dL (0.2-1.3); Calcium 8.4 mg/dL (8.4-10.2); Carbon Dioxide 15 mmol/L (22-30); Chloride 96 mmol/L (98-107); Glucose 97 mg/dL (65-110); Magnesium 2.1 mg/dL (1.6-2.3); Potassium 5.1 mmol/L (3.4-5.0); Sodium 129 mmol/L (137-145)
[2023-12-22 07:04] LABS: Creatine Kinase 491 U/L (30-135)
[2023-12-22 07:18] LABS: Creatinine Urine 73.8 mg/dL; Total Protein Urine Random 104 mg/dL; Urea Random Urine 893 MG/DL
[2023-12-22 07:19] LABS: Sodium Urine Random 16 meq/L
[2023-12-22 07:36] LABS: Hepatitis B Surface Antigen Negative (Negative)
[2023-12-22 07:40] LABS: Estimated CRCL calculation 17 ml/min; Estimated Glomerular Filt Rate 17
[2023-12-22 07:47] LABS: Blood Urea Nitrogen 128 mg/dL (7-17)
[2023-12-22 07:54] LABS: Hepatitis B Surface Anti Res Negative
[2023-12-22 08:12] LABS: Eosinophil Urine None Seen % (None Seen); Urine Eos QC 2nd Tech Confirmed
[2023-12-22] MEDS: LACTATED RINGERS 1,000 ML 999 ML IV CONT (08:39)
[2023-12-22] MEDS: SODIUM ZIRCONIUM CYCLOSILICATE 10 GM POWD.PACK PO (08:41)
--- NOTE | 2023-12-22 08:45 | WPDCNINT ---
Assessment and Plan Assessment and plan (1) Sepsis: Code(s): A41.9 - Sepsis, unspecified organism Status: Acute Assessment and Plan: Patient appears to have sepsis secondary to decubitus wound which is likely infected and UTI. There is also component of cellulitis of right foot Patient received 2 L fluid bolus in the ER and I will give additional 1 L Continue IV fluids Blood and urine cultures have been sent Continue vancomycin and add meropenem General surgery consult for sacral decubitus wound, order entry technician consult for necrosis of labia, urology consult CT does not show any free air and on the exam I do not see any crepitus or free air concerning of Jen's gangrene at this time Local Wound care as per Wound Care Service (2) Adult failure to thrive: Code(s): R62.7 - Adult failure to thrive Status: Acute Assessment and Plan: Once patient is seen by surgery patient will be started on diet depending on surgical plane I will consult dietitian (3) Acute renal failure: Code(s): N17.9 - Acute kidney failure, unspecified Status: Acute Assessment and Plan: Patient presented with acute renal failure likely 2nd dehydration which has progressed to ATN and along with possible rhabdomyolysis Patient received IV fluid bolus and IV fluids will be continued. Patient is now producing urine and will monitor urine output electrolytes and creatinine Hyperkalemia was treated with insulin and dextrose along with calcium in the ER and improved 5.1 will start IV fluid bicarb and will also give 1 dose of Lokelma monitor Monitor electrolytes creatinine and urine output CT scan shows bilateral hydroureteronephrosis but no obstructing stone Nephrology neurology has been consulted (4) Acute hyperkalemia: Code(s): E87.5 - Hyperkalemia Status: Acute Assessment and Plan: Treatment as above (5) Decubitus ulcer: Code(s): L89.90 - Pressure ulcer of unspecified site, unspecified stage Status: Acute Assessment and Plan: See above (6) Rhabdomyolysis: Qualifiers: Encounter type: initial encounter Rhabdomyolysis type: traumatic Qualified Code(s): T79.6XXA - Traumatic ischemia of muscle, initial encounter Code(s): M62.82 - Rhabdomyolysis Status: Inactive Assessment and Plan: See above (7) Dehydration: Code(s): E86.0 - Dehydration Status: Inactive Assessment and Plan: See above (8) Encephalopathy: Code(s): G93.40 - Encephalopathy, unspecified Status: Acute Assessment and Plan: Likely secondary to uremia which is partially improved since admission as patient is now AO x3 Check ammonia level Head CT was negative for any acute change TSH was negative Monitor (9) Cellulitis: Code(s): L03.90 - Cellulitis, unspecified Status: Acute Assessment and Plan: See above Plan DVT prophylaxis -Lovenox Nutrition - npo Code Status - Full Code I spoke to patient's daughter Jennifer Domínguez by phone who has not seen patient since November and is currently in the rehab for her own medical issues. I also spoke to Jennifer's friend Sonali who was checking on patient or last 10 days. I will also requested records from [facility] and [facility] Total Critical Care Time - 60 minutes Due to a high probability of clinically significant, life threatening deterioration, the patient required my highest level of preparedness to intervene emergently and I personally spent this critical care time directly and personally managing the patient. This critical care time included obtaining a history; examining the patient; pulse oximetry; ordering and review of studies; arranging urgent treatment with development of a management plan; evaluation of patient's response to treatment; frequent reassessment; and discussions with other providers. It was exclusive of separately billable procedures and treating other patients and teach
[2023-12-22] MEDS: MEROPENEM 500 MG/NS 100 ML 500 MG/100 ML BAG 200 MG IVPB ×3 (08:51→22:39)
[2023-12-22] MEDS: SODIUM BICARBONATE 8.4% 150 MEQ in DEXTROSE 5% 1,000 ML 950 ML 125 MEQ IV CONT (09:01)
[2023-12-22] MEDS: ENOXAPARIN 30 MG/0.3 ML SYRINGE SUB-Q (09:23)
--- NOTE | 2023-12-22 09:38 | P.CONNP_ITS ---
Assessment and Plan Assessment and plan (1) CHRISTIANA (acute kidney injury): Code(s): N17.9 - Acute kidney failure, unspecified Status: Acute Assessment and Plan: * normal creatinine/renal function at baseline * creatinine of 3.8mg/dl on admission with improvement noted * suspect due to volume depletion/dehydration with possible component of renal hypoperfusion/ATN complicated by obstructive uropathy (given admission imaging) * s/p aggressive IVF resuscitation with UOP noted as well * evaluation to date noted: * urine electrolytes prerenal * urine eosinophils negative * UA c/w with infection * CPK mildly elevated - not enough to affect kidney function * Admission CT abd/pelvis with hydronephrosis (Urology following * collado catheter in place * follow repeat labs and UOP (2) Sepsis: Code(s): A41.9 - Sepsis, unspecified organism Status: Acute Assessment and Plan: * presumably secondary to sacral decubitus wound and UTI along with possible right foot cellulitis * s/p aggressive IVF resuscitation and on maintenance IVFs * follow culture (blood, urine and wound) data * on IV antibiotics * General Surgery consulted for sacral decubitus ulcer * wound care following (3) Hyperkalemia: Code(s): E87.5 - Hyperkalemia Status: Acute Assessment and Plan: * resolved * due to #1 * s/p medical management in ER * dosed with lokelma as well * follow trend of repeat K+ levels (4) Decubitus ulcer: Qualifiers: Pressure injury location: sacral region Pressure injury stage: stage 4 Qualified Code(s): L89.154 - Pressure ulcer of sacral region, stage 4 Code(s): L89.90 - Pressure ulcer of unspecified site, unspecified stage Status: Acute Assessment and Plan: * Surgery consulted * likely to need possible debridement * local wound care (5) Cellulitis: Code(s): L03.90 - Cellulitis, unspecified Status: Acute Assessment and Plan: * based on appearance/exam of right foot * follow culture data * on antibiotics (6) Encephalopathy: Code(s): G93.40 - Encephalopathy, unspecified Status: Acute Assessment and Plan: * improvement noted * suspect secondary to CHRISTIANA and associated uremia * Head CT negative * TSH okay * follow-up on ammonia level * follow mentation (7) Adult failure to thrive: Code(s): R62.7 - Adult failure to thrive Status: Acute Assessment and Plan: * as noted by history * dietary consulted I will continue to follow the patient with you while he remains hospitalized and make further recommendations as deemed necessary. Thank you for allowing me to participate in the care of this patient. History of Present Illness Reason for Consult Consult date: 12/22/23 Reason for consult: acute renal failure Chief Complaint Chief complaint: Sepsis, Failure to thrive, Acute renal failure, Ur History of Present Illness Narrative: Almost all the information that I have obtained is from review of the electronic medical record as well as discussion with the physician/ nurses involved in the patient's care as is difficult to get full and complete history from the patient as she is an extremely poor historian. The patient is a 78-year-old female with a past medical history as outlined below who presented to [facility] Emergency room due to failure to thrive. The patient apparent had a leg fracture after a fall in September of this year and was appa
--- NOTE | 2023-12-22 09:38 | PM.CNNEP ---
Assessment and Plan Assessment and plan (1) CHRISTIANA (acute kidney injury): Code(s): N17.9 - Acute kidney failure, unspecified Status: Acute Assessment and Plan: normal creatinine/renal function at baseline creatinine of 3.8mg/dl on admission with improvement noted suspect due to volume depletion/dehydration with possible component of renal hypoperfusion/ATN complicated by obstructive uropathy (given admission imaging) s/p aggressive IVF resuscitation with UOP noted as well evaluation to date noted: urine electrolytes prerenal urine eosinophils negative UA c/w with infection CPK mildly elevated - not enough to affect kidney function Admission CT abd/pelvis with hydronephrosis (Urology following collado catheter in place follow repeat labs and UOP (2) Sepsis: Code(s): A41.9 - Sepsis, unspecified organism Status: Acute Assessment and Plan: presumably secondary to sacral decubitus wound and UTI along with possible right foot cellulitis s/p aggressive IVF resuscitation and on maintenance IVFs follow culture (blood, urine and wound) data on IV antibiotics General Surgery consulted for sacral decubitus ulcer wound care following (3) Hyperkalemia: Code(s): E87.5 - Hyperkalemia Status: Acute Assessment and Plan: resolved due to #1 s/p medical management in ER dosed with lokelma as well follow trend of repeat K+ levels (4) Decubitus ulcer: Qualifiers: Pressure injury location: sacral region Pressure injury stage: stage 4 Qualified Code(s): L89.154 - Pressure ulcer of sacral region, stage 4 Code(s): L89.90 - Pressure ulcer of unspecified site, unspecified stage Status: Acute Assessment and Plan: Surgery consulted likely to need possible debridement local wound care (5) Cellulitis: Code(s): L03.90 - Cellulitis, unspecified Status: Acute Assessment and Plan: based on appearance/exam of right foot follow culture data on antibiotics (6) Encephalopathy: Code(s): G93.40 - Encephalopathy, unspecified Status: Acute Assessment and Plan: improvement noted suspect secondary to CHRISTIANA and associated uremia Head CT negative TSH okay follow-up on ammonia level follow mentation (7) Adult failure to thrive: Code(s): R62.7 - Adult failure to thrive Status: Acute Assessment and Plan: as noted by history dietary consulted I will continue to follow the patient with you while he remains hospitalized and make further recommendations as deemed necessary. Thank you for allowing me to participate in the care of this patient. History of Present Illness Reason for Consult Consult date: 12/22/23 Reason for consult: acute renal failure Chief Complaint Chief complaint: Sepsis, Failure to thrive, Acute renal failure, Ur History of Present Illness Narrative: Almost all the information that I have obtained is from review of the electronic medical record as well as discussion with the physician/ nurses involved in the patient's care as is difficult to get full and complete history from the patient as she is an extremely poor historian. The patient is a 78-year-old female with a past medical history as outlined below who presented to [facility] Emergency room due to failure to thrive. The patient apparent had a leg fracture after a fall in September of this year and was apparently hospitalized at [facility]. Following his hospital stay, she apparently was discharged to [facility] rehab up until late November when she apparently left against medical advice. The patient barely called her daughter's friend Wyatt to pick her up telling her that she has been discharged and is able to walk with assistance of a walker. However, when caring arrived to pick her up, the patient was unable to get out of her wheelchair and unable to even transfer to the car. She
--- NOTE | 2023-12-22 09:54 | WPDURCON ---
Assessment and Plan Assessment and plan (1) Hydronephrosis: Code(s): N13.30 - Unspecified hydronephrosis Status: Acute Assessment and Plan: Now s/p collado catheter placement which is draining well and creatinine is improving. Will continue to monitor creatinine and consider repeat renal US in next 1-2 days to ensure resolution of hydronephrosis (2) Acute renal failure: Code(s): N17.9 - Acute kidney failure, unspecified Status: Acute Assessment and Plan: Creatinine trending down, 2.7 today. Continue to monitor closely. Urology Consult Note HPI Date Seen: 12/22/23 Requesting Physician: Manjit Flynn MD Primary Care Provider: RN TELEPHONE TRIAGE PHYSICIAN Consult Narrative Narrative: Aidee Domínguez is a 78 year old female [facility] who presented to the emergency department on 12/21/2023 failure to thrive after completion of a wellness check which found the patient to be in her wheelchair in the same position for many days, covered in stool, urine, and maggots. On arrival, she was tachycardic and tachypneic with additional vital signs stable, WBC elevated at 44.5, multiple electrolyte abnormalities noted, UA grossly abnormal with dark, cloudy urine, positive leukocytes and white blood cells, and lactic slightly elevated at 2.5. A CT of her abdomen/pelvis was completed which demonstrated moderate bilateral hydroureteronephrosis with no evidence of stones. She had a Collado catheter placed on admission but was still noted to have distended bladder with small amount of air on CT. At the time of my evaluation, patient is resting comfortably in bed, not able to provide much reliable history. Her Collado catheter is draining without difficulty. RN at bedside reports that she had quite a bit of sediment initially which likely explains the distended bladder on CT, however this cleared following irrigation and is now draining freely. Also noted to have sacral decubitus ulcers. Urine and blood cultures are pending at this time. Review of Systems Review of Systems: All systems reviewed & are unremarkable except as noted in HPI and below PMFSH Past Medical History Medical History Dysphagia requiring a soft diet Fracture of left tibia Insomnia Mobility impaired Solitary pulmonary nodule Spondylosis of cervical joint Vitamin A deficiency Surgical History Surgical History H/O cervical spine surgery H/O lumbosacral spine surgery History of surgery on lower extremity Family History Family History Other Unknown family medical history Social History Social History Smoking status: Former smoker Alcohol intake: never Substance use: never Substance use type: does not use Do You Feel Safe in your Home?: Yes Lack of Transportation: YES Lack of Food: Never True Current Housing: I Have Housing Concerned About Future Housing: No Difficulty Paying Gas/Electric Bills: No Difficulty Paying for Meds: No Currently Unemployed: No Education: Associate Degree Difficulty w/ Childcare or Family Care: No Spiritual care concerns: No Meds Home Medications and Allergies Home Medications Medication Instructions Recorded Confirmed Type aspirin 325 mg tablet (Harley 325 mg PO DAILY 12/22/23 12/22/23 History Aspirin) Allergies Allergy/AdvReac Type Severity Reaction Status Date / Time No Known Allergies Allergy Verified 09/15/23 23:23 Vital Signs Vital Signs - 24 hr 12/21/23 20:47 12/21/23 21:47 12/21/23 22:00 Temperature 98.2 F Pulse Rate 88 126 H 128 H Respiratory Rate 22 H 23 H 23 H Blood Pressure Pulse Oximetry 91 Oxygen Delivery Room Air Oxygen Flow Rate 12/21/23 22:13 12/21/23 22:15
--- NOTE | 2023-12-22 09:56 | PM.CNGS ---
Assessment and Plan Assessment and plan (1) Decubitus ulcer: Code(s): L89.90 - Pressure ulcer of unspecified site, unspecified stage Status: Acute Assessment and Plan: The patient has multiple wounds and the largest wound of concern is a large unstageable sacral decubitus ulcer that extends anteriorly towards the perineum and onto the labia and over the mons pubis. The sacral wound has a soft eschar with a foul odor overlying the entire wound that will likely require surgical debridement. There is no CT evidence of subcutaneous gas or clinical findings that are concerning for necrotizing fasciitis. There is also no findings of osteomyelitis on the CT scan. We will initiate local wound care with Dakin's soaked gauze dressing changes. Continue with critical care management treating her sepsis, CHRISTIANA, rhabdomyolysis, and electrolyte abnormalities. We will follow along to decide on timing of surgical debridement in the next few days depending on how she is progressing. Continue frequent turning and local wound care for now. (2) Sepsis: Code(s): A41.9 - Sepsis, unspecified organism Status: Acute Assessment and Plan: Sepsis secondary to decubitus ulcers versus UTI. Continue with critical care management, fluid resuscitation, and IV antibiotics. Blood and urine cultures pending. Will plan to proceed with surgical debridement as mentioned above. (3) Acute renal failure: Code(s): N17.9 - Acute kidney failure, unspecified Status: Acute (4) Adult failure to thrive: Code(s): R62.7 - Adult failure to thrive Status: Acute (5) Acute hyperkalemia: Code(s): E87.5 - Hyperkalemia Status: Acute (6) Mobility impaired: Code(s): Z74.09 - Other reduced mobility Status: Acute (7) Encephalopathy: Code(s): G93.40 - Encephalopathy, unspecified Status: Acute Plan I have discussed the patient's case and plan of care with Dr. Harrington. Thank you for allowing us to see the patient in consultation and we will continue to follow along with you. History of Present Illness Consult details Consult date: 12/22/23 Reason for consult: other (Infected decubitus ulcers) Requesting physician: Sha Jarrell MD Narrative: This is a 78-year-old woman with multiple medical problems, who we have been asked to see in surgical consultation for infected decubitus ulcers. She is alert and oriented this morning, but is a poor historian. Her history is primarily obtained by review of her electronic medical record. She was brought into the ED from home yesterday with failure to thrive. Apparently patient fell in September and had surgery on her leg for fracture at [facility]. Per daughter patient also had a broken rib and also had neck surgery where C2-C7 were fused. Patient was at [facility] at rehab until December 11, when she left [place]. She had a friend pick her up, who took her daughter's home where she resided alone due her her daughter also being in the hospital and then going to rehab. She was at her home alone over the past 10 days. Her friend would try to check on her and was always sitting in the same wheelchair in the same position. She apparently had a fall at one point that prompted a 911 call from the friend, but the patient refused to go to the hospital. The department of aging was called and attempted to visit her but she did not open the door when they came to visit. Her friend was persistently requesting she go to the hospital and she finally agreed yesterday and was brought in by EMS. She was only drinking water and Gatorade. She had some protein bars but not eating much else. Per the ED report, she was found soiled with feces and maggots on her clothes. In the ED, she was tachycardic, tachypneic, and slightly hypotensive. Labs showed a WBC count of 44,500, sodium 125, potassium 6.2, chloride 90, carbon dioxide 13, anion gap 22, BUN 140, creatinine 3.8, lactic acid 3.7, CRP 8.3, A
--- NOTE | 2023-12-22 11:27 | P.PNCROSS_ITS ---
Event Note Event Note Event Note: Records obtained from skilled nursing were reviewed. Patient has history of fracture of shaft of left tibia Generalized muscle weakness Dysphagia requiring mechanical soft diet Gait and mobility issues Spondylosis and myelopathy of cervical region Balance abnormality History of coronavirus infection Pressure ulcer of left heel stage II Vitamin-D deficiency Constipation Insomnia Cervical spine fusion Cervical spine stenosis Solitary pulmonary nodule Patient had C-collar on while ambulation She was on 2 L nasal cannula She had left heel wound and decubitus wound on coccyx at the skilled nursing
--- NOTE | 2023-12-22 12:06 | ECG_ITS ---
Test Date: 2023-12-22 12:05:44 Measurements Intervals [place] Rate: 124 P: 62 NH: 171 QRS: 28 QRSD: 84 T: 64 QT: 310 QTc: 446 Interpretive Statements SINUS TACHYCARDIA WITH FREQUENT SUPRAVENTRICULAR PREMATURE COMPLEXES BASELINE ARTIFACT- V2 ABNORMAL ECG Compared to ECG 12/21/2023 22:36:09 No significant changes Electronically Signed On 12-22-2023 12:11:35 CDT by Marcin Bond D.O.
[2023-12-22] MEDS: ALBUMIN HUMAN 25% 25 GM/100 ML 100 ML IVPB ×2 (12:15→17:08)
[2023-12-22 12:23] LABS: Glucose Point of Care 127 mg/dl (65-105)
--- NOTE | 2023-12-22 12:26 | PC.NURSE ---
Heart monitor alarming Afib. Pt's heart rate remains elevated in the 1-teens to 150's. 12-lead EKG obtained to assess if there is indeed any rhythm change. EKG interprets heart rate as ST w/ frequent PVC's. EKG shown to Cuff Slitter and he's in agreement. also notified of pt's BP decreasing. No new orders
--- NOTE | 2023-12-22 12:41 | P.CDI_ITS ---
CDI Query Clarification Request BMI: 27.8 Nutritional Diagnostic Statement: Please refer to the comprehensive nutrition assessment for further information. If you agree with diagnosis of Severe Protein Calorie Malnutrition as related to inadequate protein energy intake with increased protein energy needs in setting of chronic disease as evidenced by minimal oral intake for at least 1 month; significant weight loss of 7% (13 ibs) in 3 weeks; severe subcutaneous fat loss (orbital fat pads) and severe muscle wasting (temporalis, clavicle). Please specify severity if known: * Mild * Moderate * Severe * Other/Unknown
[2023-12-22 12:51] LABS: Anion Gap 11 mmol/L (4-12); Blood Urea Nitrogen 114 mg/dL (7-17); Carbon Dioxide 22 mmol/L (22-30); Chloride 97 mmol/L (98-107); Glucose 134 mg/dL (65-110); Magnesium 1.8 mg/dL (1.6-2.3); Potassium 3.9 mmol/L (3.4-5.0); Sodium 130 mmol/L (137-145)
[2023-12-22] MEDS: SODIUM CHLORIDE 0.9% IV 1,000 ML 100 ML IV CONT (13:08)
[2023-12-22] MEDS: PERFLUTREN LIPID MICROSPHERES 1.5 ML VIAL DILUTED TO 10 ML TOTAL VOLUME IV PUSH (13:20)
[2023-12-22] MEDS: CALCIUM GLUC 2,000 MG/NS 100ML 2,000 MG/100 ML BAG 100 MG IVPB (13:27)
[2023-12-22 13:30] LABS: Estimated CRCL calculation 21 ml/min; Estimated Glomerular Filt Rate 23
[2023-12-22] MEDS: ALBUMIN HUMAN 5% 250 ML IV CONT (13:45)
[2023-12-22] MEDS: SOD HYPOCHLORITE 1/4 STRENGTH 473 ML 1 APPLIC TOPICAL (14:00)
[2023-12-22] MEDS: TOLNAFTATE 1% POWDER 45 GM BTL 1 APPLIC TOPICAL (14:00)
[2023-12-22] MEDS: AMIODARONE 150 MG/D5W 100 ML 150 MG/100 ML BAG 600 MG IV CONT ×3 (14:36→20:32)
--- NOTE | 2023-12-22 14:40 | PC.NURSE ---
Pt's heart rate increased to the 200's. Dr. Morton to bedside. Amiodarone IV ordered by . Order received to administer another Amiodarone bolus if pt's heart rate remains tachy 30 minutes after first bolus has infused.
[2023-12-22] MEDS: AMIODARONE 360 MG/D5W 200 ML 360 MG/200 ML BAG 33.33 MG IV CONT ×2 (14:57→20:49)
[2023-12-22] MEDS: PHENYLEPHRINE HCL INJ 50 MG in DEXTROSE 5% IN WATER 250 ML/245 ML BAG 12 ML IV CONT (15:30)
--- NOTE | 2023-12-22 15:55 | IVDEFINITY ---
Prior to administration of IV Definity the patient was educated on the risks and benefits of the imaging enhancing agent including potential adverse side effects. The patient verbalized understanding. Allergies were verified. No exclusion criteria were identified and at least one of the following inclusion criteria were met: 1) physician request, 2) patient technically difficult to image (per the [place] [employer]chocardi[employer] guidelines of two or more segments not discernable within the apical view), or 3) questionable left ventricular function. ?
--- NOTE | 2023-12-22 15:58 | PM.IMHP ---
H&P: HPI History of Present Illness Date/Time: 12/22/23 15:58 Chief Complaint: failure to thrive Narrative: Aidee Domínguez is a 78 year old female with past medical history of cervical neck surgery, lumbar disc surgery, ORIF of leg was brought in from home yesterday with complaint of failure to thrive. Patient is unable to provide full detailed history. History mentioned below has been obtained from seismic prospecting observer helper phone conversation with patient's daughter and daughter's friend. Apparently patient fell in September and had surgery on her leg for fracture at [facility]. Per daughter patient also had a broken rib and also had neck surgery where C2-C7 were fused. Patient's daughter did not know which leg she had surgery on. She also stated the patient had disc surgery in lumbar area more than 30 years ago. She is unaware of any any other major medical problem the patient had. Patient was at [facility] at rehab until 11 of December when she left [place]. She called her daughter's friend Sonali to pick her up telling her that she has been discharged and she can walk with the help of walker. When Sonali arrived to pick her up patient was unable to get out of wheelchair and unable to transfer to car. Since patient already checked out of prison daughter's friend was forced to bring her to her daughters home. Patient's daughter herself was in the hospital and then went to rehab and was never at home during this time. Over last 10 days patient stayed at her daughter's home by herself and Sonali checked on her once or twice a day. She states the patient was always seen sitting in wheelchair all the time although she claimed to her daughter's friend that she was able to transfer to bed herself. She was wearing diaper which she never mentioned to the daughter's friend. Her daughter's friend called 911 next day after she fell from wheelchair but patient refused to go to the hospital. As per Sonali she also called department of aging to help her but patient never opened the door when they came to visit her. She states the patient kept on drinking water and Gatorade and only ate protein bars. Sonali brought food but she ate minimal amount . Sonali states the patient had minimal strength in her legs and could only picker operator things with her arms. The only physical complaint she mention to her was that she had spasms in her leg and weakness and pain from her surgery of her lumbar spine decades ago. Obviously she was not drinking alcohol or smoking cigarettes at home. Sonali has no information about patient's medication. Finally after requesting her daily, patient finally agreed to come to the hospital yesterday and was brought to [facility] by EMS In ER CT head read by stat read showed no acute abnormalities, old strokes evident. leukocytosis of 44.5, hyperkalemia at 6.2, sodium of 125 and a chloride 90, anion gap metabolic acidosis with an anion gap of 22 and a bicarb of 13. Significant BUN of a 140 elevated creatinine. Hepatic function panel slightly elevated. Negative troponin, elevated CRP. Urinalysis revealed white blood cells, leukocyte esterase, bacteria consistent with urinary tract infection. Her Guerrier catheter was draining significant tea-colored urine likely from the uremia.Patient was given IV fluid bolus started on IV antibiotics and admitted to ICU. Nephrology and General surgery were consulted. Review of Systems Review of Systems: All systems reviewed & are unremarkable except as noted in HPI and below ROS unobtainable: Yes unobtainable due to medical condition and unobtainable due to mental status PMFSH Past Medical History Medical History Dysphagia requiring a soft diet Fracture of left tibia Insomnia Mobility impaired Solitary pulmonary nodule Spondylosis of cervical joint Vitamin A deficiency Surgical History Surgical History (Reviewed 12/22/23 @ 12:40 by HAIM Gamez
--- NOTE | 2023-12-22 16:56 | PC.NURSE ---
Dr. Morton notified of pt's heart rate remaining in the 140's-150's after receiving second bolus of Amiodarone. Pt is now also on Phenylephrine with SBP in the 70's-80's with parameters for MAP of 60-65. Pt does meet this criteria even with the soft BP. Clarification on if MD would like a SBP parameter on the phenylephrine order as well. No new orders received regarding HR or BP.
[2023-12-22 17:04] LABS: Lactic Acid Reflex 1.9 mmol/L (0.7-2.0)
[2023-12-22 17:26] LABS: Glucose Point of Care 108 mg/dl (65-105)
--- NOTE | 2023-12-22 17:30 | PC.NURSE ---
Pt moved to specialty mattress.
--- NOTE | 2023-12-22 18:42 | PC.NURSE ---
Updated Dr. Morton regarding pt's elevated HR. Pt's HR remains in the 120's-150's. Pt unable to take PO. New order received for 2mg IVP Morphine q3h for severe pain. Dr. Morton updated on all VS st this time as well, HR 137, R 17, 92% on RA, BP 77/59 on 70mcg/min of Phenylephrine. New order to have night RN complete Cheetah and call MD if pt is fluid responsive.
[2023-12-22] MEDS: MORPHINE SULFATE (*CRX) 2 MG/ML INJ IV PUSH (19:01)
[2023-12-22 20:42] LABS: Glucose Point of Care 108 mg/dl (65-105)
--- NOTE | 2023-12-22 22:33 | WPDCN ---
Assessment and Plan Assessment and plan (1) Vulvar lesion: Code(s): N90.89 - Other specified noninflammatory disorders of vulva and perineum Status: Acute Assessment and Plan: No signs of vulvar necrotizing fascitis, no CT finding or crepitus on exam. I suspect she has a chronic superficial inflammatory process of the vulvar and the necrotic area could be due to pressure of the inflamed area. Agree with wound care plan of care in addition to IV antibiotics. She could be reassessed outpatient after she is stable and has had the wound care. At that time consider outpatient biopsy of area if no improvement with wound care. It would be of benefit to have vulvar area more exposed to air, though this is difficult with her limited mobility. Culture obtained of area. HPI Data of Consult Date/Time: 12/22/23 1030 Requesting Physician: Manjit Flynn MD Primary Care Provider: ROD FINISHER PHYSICIAN Consult Narrative Reason for consult: Necrotic area on labia Narrative: Aidee Domínguez is a 78 year old female admitted for sepsis most likely secondary to debub ulcers and UTI. She was noted to have necrotic area at labia. Abd/CT did not show any pelvic lymphadenopathy or fat stranding or gas in the pelvis. Patient awake but unable to obtain history. She has been seen by wound team. [facility] Past Medical History Medical History Dysphagia requiring a soft diet Fracture of left tibia Insomnia Mobility impaired Solitary pulmonary nodule Spondylosis of cervical joint Vitamin A deficiency Surgical History Surgical History H/O cervical spine surgery H/O lumbosacral spine surgery History of surgery on lower extremity Family History Family History Other Unknown family medical history Social History Social History Smoking status: Former smoker Alcohol intake: never Substance use: never Substance use type: does not use Do You Feel Safe in your Home?: Yes Lack of Transportation: YES Lack of Food: Never True Current Housing: I Have Housing Concerned About Future Housing: No Difficulty Paying Gas/Electric Bills: No Difficulty Paying for Meds: No Currently Unemployed: No Education: Associate Degree Difficulty w/ Childcare or Family Care: No Spiritual care concerns: No Meds Home Medications and Allergies Home Medications Medication Instructions Recorded Confirmed Type aspirin 325 mg tablet (Harley 325 mg PO DAILY 12/22/23 12/22/23 History Aspirin) Allergies Allergy/AdvReac Type Severity Reaction Status Date / Time No Known Allergies Allergy Verified 09/15/23 23:23 Vital Signs Vital Signs - 24 hr 12/21/23 23:10 12/21/23 22:52 12/21/23 23:00 Temperature 96.8 F L 96.8 F L Pulse Rate 123 H 122 H Respiratory Rate 24 H 24 H 25 H Blood Pressure Pulse Oximetry 98 98 99 Oxygen Delivery Oxygen Flow Rate 12/21/23 23:03 12/21/23 23:04 12/21/23 23:29 Temperature 96.9 F L 96.9 F L 96.9 F L Pulse Rate 118 H 106 H 122 H Respiratory Rate 24 H 26 H 15 Blood Pressure 110/89 Pulse Oximetry 97 98 Oxygen Delivery Oxygen Flow Rate 12/21/23 23:30 12/21/23 23:31 12/21/23 23:56 Temperature 96.9 F L 96.9 F L 96.9 F L Pulse Rate 120 H 120 H 141 H Respiratory Rate 27 H 17 23 H Blood Pressure 139/95 H Pulse Oximetry 98 100 Oxygen Delivery Oxygen Flow Rate 12/22/23 00:00 12/22/23 00:01 12/22/23 01:16 Temperature 97.0 F L 97.0 F L 97.4 F L Pulse Rate 108 H 111 H 119 H Respiratory Rate 27 H 18 20 Blood Pressure 178/154 H 124/56 L Pulse Oximetry 97 95 97 Oxygen Delivery Oxygen Flow Rate 12/22/23 02:45 12/22/23 03:07 12/22/23 03:15 Temperature 98.2 F 98.4 F 98.5 F Pulse Rate 128 H 130 H 124 H Re
[2023-12-23] VITALS (29 sets, daily range): BP systolic 84–114; BP diastolic 53–79; PULSE 97–166; RESP 12–21; TEMP 36.9–38.2; O2SAT 93–100
[2023-12-23] MEDS: ALBUMIN HUMAN 25% 25 GM/100 ML 100 ML IVPB ×5 (00:24→23:11)
[2023-12-23] MEDS: SOD HYPOCHLORITE 1/4 STRENGTH 473 ML 1 APPLIC TOPICAL ×3 (00:25→21:51)
[2023-12-23] MEDS: TOLNAFTATE 1% POWDER 45 GM BTL 1 APPLIC TOPICAL ×3 (00:25→21:51)
[2023-12-23] MEDS: PHENYLEPHRINE HCL INJ 50 MG in DEXTROSE 5% IN WATER 250 ML/245 ML BAG 33 ML IV CONT ×2 (01:18→08:54)
[2023-12-23] MEDS: AMIODARONE 360 MG/D5W 200 ML 360 MG/200 ML BAG 33.33 MG IV CONT ×2 (02:28→19:54)
[2023-12-23 04:16] LABS: Hematocrit 26.6 % (37.0-47.0); Hemoglobin 8.6 g/dL (12.0-15.0); Mean Corpuscular HGB Conc 32.3 g/dl (32-36); Mean Corpuscular Hemoglobin 26.1 pg (26-34); Mean Corpuscular Volume 80.9 fl (80-100); Mean Platelet Volume 10.7 fl (7.4-10.4); Platelet Count Result 214 k/mm3 (150-375); Red Blood Count 3.29 M/mm3 (4.2-5.4); Red Cell Distribution Width 15.7 % (11.5-14.5); White Blood Count 26.2 K/mm3 (4.5-10.0)
[2023-12-23 04:31] LABS: Alanine Aminotransferase 19 U/L (6-35); Alkaline Phosphatase 64 U/L (38-126); Anion Gap 11 mmol/L (4-12); Aspartate Amino Transferase 28 U/L (14-36); Bilirubin,Total 0.8 mg/dL (0.2-1.3); Blood Urea Nitrogen 77 mg/dL (7-17); Calcium 8.2 mg/dL (8.4-10.2); Carbon Dioxide 25 mmol/L (22-30); Chloride 99 mmol/L (98-107); Creatine Kinase 235 U/L (30-135); Estimated CRCL calculation 39 ml/min; Estimated Glomerular Filt Rate 48; Glucose 117 mg/dL (65-110); Magnesium 1.8 mg/dL (1.6-2.3); Phosphorus 3.1 mg/dL (2.5-4.5); Potassium 2.7 mmol/L (3.4-5.0); Sodium 135 mmol/L (137-145)
[2023-12-23 04:34] LABS: Vancomycin Random 7.6 ug/mL (10-20)
[2023-12-23] MEDS: MORPHINE SULFATE (*CRX) 2 MG/ML INJ IV PUSH ×5 (04:41→23:11)
[2023-12-23] MEDS: SODIUM CHLORIDE 0.9% IV 1,000 ML 100 ML IV CONT (04:47)
[2023-12-23] MEDS: VANCOMYCIN 1,500 MG/NS 500 ML 1,500 MG/500 ML BAG 250 MG IVPB (05:28)
[2023-12-23] MEDS: MEROPENEM 500 MG/NS 100 ML 500 MG/100 ML BAG 200 MG IVPB (05:29)
[2023-12-23] MEDS: POTASSIUM CHLORIDE INJ 40 MEQ in SODIUM CHLORIDE 0.9% IV 500 ML 130 MEQ IVPB (07:51)
[2023-12-23] MEDS: AMIODARONE 360 MG/D5W 200 ML 360 MG/200 ML BAG 16.67 MG IV CONT ×2 (08:00→08:40)
--- NOTE | 2023-12-23 08:47 | WPDINTPN ---
Progress Note: A&P Assessment and Plan (1) Sepsis: Code(s): A41.9 - Sepsis, unspecified organism Status: Acute Assessment and Plan: Patient appears to have sepsis secondary to decubitus wound which is likely infected and UTI. There is also component of cellulitis of right foot Urine and blood culture growing Gram-negative rods Patient received IV fluid bolus in the ER followed by additional bolus in the ICU Continue IV fluids but decrease rate now Continue vancomycin and add meropenem General surgery consult for sacral decubitus wound and there is a plan for taking patient to OR for debridement Patient was also evaluated by Ballast Cleaning Operator and local wound care was recommended CT does not show any free air and on the exam I do not see any crepitus or free air concerning of Jen's gangrene at this time Local Wound care as per Wound Care Service (2) Adult failure to thrive: Code(s): R62.7 - Adult failure to thrive Status: Acute Assessment and Plan: Patient confused at this time. Will insert NG tube. Will wait until surgery sees the patient to see what is the plan for OR before starting tube feeds Dietitian consult (3) Acute renal failure: Code(s): N17.9 - Acute kidney failure, unspecified Status: Acute Assessment and Plan: Patient presented with acute renal failure likely 2nd dehydration which has progressed to ATN and along with possible rhabdomyolysis Patient received IV fluid bolus and IV fluids were continued. Patient is now producing urine Creatinine is improving and down to 1.1 Hyperkalemia was treated with insulin and dextrose along with calcium in the ER and improved 5.1 will start IV fluid bicarb and will also give 1 dose of Lokelma monitor and has resolved Monitor electrolytes creatinine and urine output CT scan shows bilateral hydroureteronephrosis but no obstructing stone Nephrology and Urology has been consulted (4) Acute hyperkalemia: Code(s): E87.5 - Hyperkalemia Status: Acute Assessment and Plan: Resolved and patient is now hypokalemic and electrolytes will be replaced. (5) Decubitus ulcer: Code(s): L89.90 - Pressure ulcer of unspecified site, unspecified stage Status: Acute Assessment and Plan: See above (6) Rhabdomyolysis: Qualifiers: Encounter type: initial encounter Rhabdomyolysis type: traumatic Qualified Code(s): T79.6XXA - Traumatic ischemia of muscle, initial encounter Code(s): M62.82 - Rhabdomyolysis Status: Acute Assessment and Plan: See above (7) Dehydration: Code(s): E86.0 - Dehydration Status: Inactive Assessment and Plan: See above (8) Encephalopathy: Code(s): G93.40 - Encephalopathy, unspecified Status: Acute Assessment and Plan: Likely secondary to uremia and delirium Uremia has improved Head CT was negative for any acute change TSH was normal Monitor (9) Cellulitis: Code(s): L03.90 - Cellulitis, unspecified Status: Acute Assessment and Plan: See above (10) Atrial fibrillation with RVR: Code(s): I48.91 - Unspecified atrial fibrillation Status: Acute Assessment and Plan: Patient went to AFib with RVR yesterday likely sepsis. Continue amiodarone infusion for rate control due to hypertension. Holding aspirin anticoagulation due to anticipated surgery today (11) Hypotension: Code(s): I95.9 - Hypotension, unspecified Status: Acute Assessment and Plan: Patient will hypotension yesterday after she went to AFib with RVR Lactic acid level has normalized She has received good amount of IV fluids and was not further fluid responsive on nicom assessment She was started on phenylephrine infusion and is requiring low-dose to maintain a mean arterial pressure (12) Electrolyte abnormality: Code(s): E87.8 - Other disorders of electrolyte and fluid balance, not elsewhere classified
[2023-12-23] MEDS: ENOXAPARIN 40 MG/0.4 ML SYRINGE SUB-Q (09:07)
[2023-12-23 09:12] LABS: Glucose Point of Care 106 mg/dl (65-105)
[2023-12-23] MEDS: POTASSIUM CHLORIDE 20 MEQ PACKET (FOR LIQUID) 40 MEQ FEED TUBE (09:13)
--- NOTE | 2023-12-23 09:22 | PC.NURSE ---
Patient remains semi confused at this time, stating she knows we're in a hospital and who she is but unaware of what led up to this admission. Follows commands and answers appropriately aside from time and exact location of where she is. Powder Cutting Operator ordered NG tube for supplemental PO potassium due to patient fluctuating orientation and alertness. She is very reluctant to proceeding with insertion and refuses at this time. Powder Cutting Operator aware and will attempt again later if necessary but we are okay to proceed with mixing Potassium with water to drink. Patient tolerated well with HOB @ 45 degrees.
--- NOTE | 2023-12-23 10:04 | WPDUROPN2 ---
Progress Note: A&P Assessment and Plan (1) Hydronephrosis: Code(s): N13.30 - Unspecified hydronephrosis Status: Acute Assessment and Plan: Now s/p collado catheter placement which is draining well and creatinine has greatly improved, down to 1.1 today. Will plan to continue collado especially given extensive sacral decubitus ulcers (2) Acute renal failure: Code(s): N17.9 - Acute kidney failure, unspecified Status: Acute Assessment and Plan: Essentially resolved. Creatinine down to 1.1 today (3) Urinary tract infection: Code(s): N39.0 - Urinary tract infection, site not specified Status: Acute Assessment and Plan: Preliminary urine culture with growth of Proteus. Continue empiric abx while awaiting final culture Subjective Subjective Date/Time Seen: 12/23/23 10:04 Interval history: Resting comfortably in bed. Not able to provide any reliable history. RN at bedside reports mental status has been fluctuant. Collado catheter draining clear yellow urine. Urine output has improved. Review of Systems Review of Systems: ROS unobtainable: Yes unobtainable due to mental status Exam Narrative: General: Awake, comfortable, no acute distress HEENT: Normocephalic, atraumatic, sclerae anicteric Respiratory: Normal respiratory effort, no accessory muscle use Abdomen: Nondistended, soft, nontender : Collado catheter draining clear yellow urine Skin: Normal coloration, warm and dry Neurologic: No focal neuro deficits noted, slightly confused Psychiatric: Appropriate mood and affect, judgment and insight poor Objective Data Vital Signs Vital Signs: Vital Signs - 24 hr 12/22/23 12:00 12/22/23 12:00 12/22/23 12:00 Temperature 99.1 F Pulse Rate 123 H 126 H Respiratory Rate 20 Blood Pressure 85/64 L Pulse Oximetry 91 95 Oxygen Delivery Room Air Oxygen Flow Rate 12/22/23 14:36 12/22/23 14:57 12/22/23 14:47 Temperature Pulse Rate 185 H 176 H 153 H Respiratory Rate Blood Pressure 91/58 L 83/58 L 73/50 L Pulse Oximetry Oxygen Delivery Oxygen Flow Rate 12/22/23 15:09 12/22/23 15:30 12/22/23 15:47 Temperature Pulse Rate 160 H 137 H 147 H Respiratory Rate Blood Pressure 73/50 L 74/58 L 82/72 L Pulse Oximetry Oxygen Delivery Oxygen Flow Rate 12/22/23 15:48 12/22/23 16:00 12/22/23 16:01 Temperature Pulse Rate 141 H 135 H 137 H Respiratory Rate Blood Pressure 74/58 L 88/57 L 88/57 L Pulse Oximetry Oxygen Delivery Oxygen Flow Rate 12/22/23 16:16 12/22/23 14:00 12/22/23 16:00 Temperature 99.5 F 98.8 F Pulse Rate 147 H 117 H 145 H Respiratory Rate 21 H 16 Blood Pressure 78/67 L 94/58 L 88/57 L Pulse Oximetry 92 95 Oxygen Delivery Oxygen Flow Rate 12/22/23 14:00 12/22/23 16:00 12/22/23 16:32 Temperature Pulse Rate 117 H 142 H 145 H Respiratory Rate Blood Pressure 85/61 L Pulse Oximetry Oxygen Delivery Oxygen Flow Rate 12/22/23 16:46 12/22/23 17:02 12/22/23 17:15 Temperature Pulse Rate 148 H 148 H 143 H Respiratory Rate Blood Pressure 93/46 L 88/68 L 86/69 L Pulse Oximetry Oxygen Delivery Oxygen Flow Rate 12/22/23 17:33 12/22/23 16:00 12/22/23 17:46 Temperature Pulse Rate 151 H 130 H Respiratory Rate Blood Pressure 82/58 L 70/58 L Pulse Oximetry 94 Oxygen Delivery Room Air Oxygen Flow Rate 12/22/23 18:02 12/22/23 18:02 12/22/23 18:00 Temperature Pulse Rate 155 H 155 H 146 H Respiratory Rate Blood Pressure 89/57 L 89/57 L Pulse Oximetry Oxygen Delivery Oxygen Flow Rate 12/22/23 18:01 12/22/23 18:15 12/22/23 18:32 Temperature 99.5 F Pulse Rate 156 H 144 H 143 H Respiratory Rate 20 Blood Pressure 89/57 L 85/59 L 77/59 L Pulse Oximetry 95 Oxygen Delivery Oxygen Flow Rate 12/22/23 18:45 12/22/23 19:00 12/22/23 19:20 Temperature Pulse Rate 151
[2023-12-23] MEDS: MIDAZOLAM HCL (*CRX) 2 MG/2 ML VIAL IV PUSH (10:46)
--- NOTE | 2023-12-23 10:50 | PCFNICU ---
ICU Rounding Note: Pt current nutrition is NPO. Nutrition recommendation: Jevity 1.5 at 20 ml/hr Last recorded weight is 80.8 kg, up from 75.8 kg on admit. Bowel Motility: No BM reported. Labs Reviewed:Glu 117, Cr 1.1,GFR 48, K 2.7, Na 135, Alb 3.0,Hct 26.6,Hgb 8.6 Meds Noted:Lovenox, Vancomycin. Skin:See wound assessment for pressure ulcers. Additional Notes: Patient is currently NPO. Confused per nursing. Spoke with [employer] Supervisor today, plans to start NGT feedings of Jevity 1.5 at 20 ml/hr today. Flush 30 ml q 4hours. Agree with diet orders at this time. Following daily in ICU rounds. Will monitor weight labs, skin, tube feeding tolerance, meds every Thursday and Thursday.
--- NOTE | 2023-12-23 11:40 | PM.PNGS ---
Progress Note: A&P Assessment and Plan (1) Decubitus ulcer: Code(s): L89.90 - Pressure ulcer of unspecified site, unspecified stage Status: Acute Assessment and Plan: Continue local wound care with Dakin's soaked gauze dressing changes. Will plan on scheduling her for excisional debridement of the necrotic sacral decubitus ulcer in the next few days if she continues to improve and is medically stable for surgery. (2) Sepsis: Code(s): A41.9 - Sepsis, unspecified organism Status: Acute Assessment and Plan: Sepsis secondary to decubitus ulcers versus UTI. Blood cultures and urine cultures growing gram negative bacilli. Continue IV antibiotics and critical care management, wean vasopressors as tolerated. (3) Acute renal failure: Code(s): N17.9 - Acute kidney failure, unspecified Status: Acute Assessment and Plan: Improving with medical management. BUN down to 77 and creatinine 1.1. (4) Adult failure to thrive: Code(s): R62.7 - Adult failure to thrive Status: Acute (5) Mobility impaired: Code(s): Z74.09 - Other reduced mobility Status: Acute (6) Encephalopathy: Code(s): G93.40 - Encephalopathy, unspecified Status: Acute Plan I have discussed the patient's case and plan of care with Dr. Harrington. Subjective Subjective Date/Time Seen: 12/23/23 11:40 Patient reports: afebrile Interval history: Patient seen in ICU. She went into A fib with RVR yesterday and was started on an amiodarone infusion. She became more hypotensive and is currently requiring vasopressors. Labs are improving. She is alert and oriented again this morning, but still confused regarding her care and very forgetful. She does not recall seeing me yesterday. Her only complaint this morning is generalized pain. She cannot describe a location or what type of pain. No other complaints at this time. Exam Const: General: no acute distress and ill appearing Orientation/consciousness: patient oriented x3 Urinary Catheter: Urinary Catheter: patent and draining and urine clear (not as dark and more of a yellow color today) Skin: Other: Sacral wound with dressing dry and intact. Bilateral feet in waffle boots with dressings dry and intact. Objective Data Vital Signs Vital Signs: Vital Signs - 24 hr 12/22/23 12:00 12/22/23 12:00 12/22/23 12:00 Temperature 99.1 F Pulse Rate 123 H 126 H Respiratory Rate 20 Blood Pressure 85/64 L Pulse Oximetry 91 95 Oxygen Delivery Room Air Oxygen Flow Rate 12/22/23 14:36 12/22/23 14:57 12/22/23 14:47 Temperature Pulse Rate 185 H 176 H 153 H Respiratory Rate Blood Pressure 91/58 L 83/58 L 73/50 L Pulse Oximetry Oxygen Delivery Oxygen Flow Rate 12/22/23 15:09 12/22/23 15:30 12/22/23 15:47 Temperature Pulse Rate 160 H 137 H 147 H Respiratory Rate Blood Pressure 73/50 L 74/58 L 82/72 L Pulse Oximetry Oxygen Delivery Oxygen Flow Rate 12/22/23 15:48 12/22/23 16:00 12/22/23 16:01 Temperature Pulse Rate 141 H 135 H 137 H Respiratory Rate Blood Pressure 74/58 L 88/57 L 88/57 L Pulse Oximetry Oxygen Delivery Oxygen Flow Rate 12/22/23 16:16 12/22/23 14:00 12/22/23 16:00 Temperature 99.5 F 98.8 F Pulse Rate 147 H 117 H 145 H Respiratory Rate 21 H 16 Blood Pressure 78/67 L 94/58 L 88/57 L Pulse Oximetry 92 95 Oxygen Delivery Oxygen Flow Rate 12/22/23 14:00 12/22/23 16:00 12/22/23 16:32 Temperature Pulse Rate 117 H 142 H 145 H Respiratory Rate Blood Pressure 85/61 L Pulse Oximetry Oxygen Delivery Oxygen Flow Rate 12/22/23 16:46 12/22/23 17:02 12/22/23 17:15 Temperature Pulse Rate 148 H 148 H 143 H Respiratory Rate Blood Pressure 93/46 L 88/68 L 86/69 L Pulse Oximetry Oxygen Delivery Oxygen Flow Rate 12/22/23 17:33 12/22/23 16:00 12/22/23 17:46 Temperature Puls
--- NOTE | 2023-12-23 11:49 | WPDPROCEDUR ---
Procedures Central Line Placement Right IJ: Central Line Date: 12/23/23 Central Line Time: 11:00 Discussed w/ the patient/family/POA,the placement of a central venous catheter, including its clinical necessity/indication & associated potential risks, benifits and alternatives.: Yes The patient/family/POA understand(s) and acknowledge(s) the need to proceed with central venous catheter insertion as an important element of the patient's clinical management.: Yes Consent: Consent was obtained from patient's granddaughter by phone. Patient is unable to provide consent. Discussed the non-emergent placement of a central venous catheter, including its clinical necessity/indication and associated potential risks and complications. The patient and/or surrogate understand(s) and acknowledge(s) the need to proceed with central venous catheter insertion as an important element of the patient's clinical management. Time Out Performed: Yes Patient Position: supine Patient placed on monitor/pulse ox: Yes Provider Prep: mask, sterile gown, sterile gloves, Max. sterile barrier precautions, cap and hand hygiene with conventional soap/water or alcohol based hand rub Central line prep: Povidone-Iodine 1% Local anesthesia used: lidocaine 1% Amount of anesthesia used (ml): 4 Sterile US Technique with sterile gel/sterile probe covers: Yes Central line lumen inserted: triple Length (cm): 16 Depth of Insertion (cm): 16 Post Procedure: sutured in place, good blood return, all ports aspirated, flushed, capped, transparent dressing and aseptic technique maintained throughout procedure Post procedure x-ray: tip of catheter in good position and no pneumothorax seen Patient tolerated procedure: well Complications: none
[2023-12-23 12:18] LABS: Glucose Point of Care 101 mg/dl (65-105)
[2023-12-23] MEDS: MEROPENEM 1 GM/NS 100 ML 1 GM/100 ML BAG IVPB ×2 (12:45→20:25)
--- NOTE | 2023-12-23 13:28 | PM.PNNEP ---
Progress Note: A&P Assessment and Plan (1) CHRISTIANA (acute kidney injury): Code(s): N17.9 - Acute kidney failure, unspecified Status: Acute Assessment and Plan: improvement noted normal creatinine/renal function at baseline creatinine of 3.8mg/dl on admission with improvement noted suspect due to volume depletion/dehydration with possible component of renal hypoperfusion/ATN complicated by obstructive uropathy (given admission imaging) s/p aggressive IVF resuscitation with reasonable UOP noted evaluation to date noted: urine electrolytes prerenal urine eosinophils negative UA c/w with infection CPK mildly elevated - not enough to affect kidney function Admission CT abd/pelvis with hydronephrosis (Urology following collado catheter in place follow trend of repeat labs and UOP (2) Sepsis: Code(s): A41.9 - Sepsis, unspecified organism Status: Acute Assessment and Plan: presumably secondary to sacral decubitus wound and UTI along with possible right foot cellulitis s/p aggressive IVF resuscitation and on maintenance IVFs follow culture (blood, urine and wound) data blood and urine cultures with GNB on IV antibiotics vasopressor therapy to maintain MAP General Surgery following for sacral decubitus ulcer wound care following (3) Hyperkalemia: Code(s): E87.5 - Hyperkalemia Status: Acute Assessment and Plan: resolved - now with issues of hypokalemia due to #1 s/p medical management in ER follow trend of repeat K+ levels (4) Decubitus ulcer: Qualifiers: Pressure injury location: sacral region Pressure injury stage: stage 4 Qualified Code(s): L89.154 - Pressure ulcer of sacral region, stage 4 Code(s): L89.90 - Pressure ulcer of unspecified site, unspecified stage Status: Acute Assessment and Plan: Surgery consulted likely to need possible debridement local wound care (5) Cellulitis: Code(s): L03.90 - Cellulitis, unspecified Status: Acute Assessment and Plan: based on appearance/exam of right foot follow culture data on antibiotics (6) Encephalopathy: Code(s): G93.40 - Encephalopathy, unspecified Status: Acute Assessment and Plan: improvement noted suspect secondary to CHRISTIANA and associated uremia Head CT negative TSH okay follow-up on ammonia level follow mentation (7) Adult failure to thrive: Code(s): R62.7 - Adult failure to thrive Status: Acute Assessment and Plan: as noted by history dietary following NG tube placed for feeding Will continue to follow. Subjective Date/time seen: 12/23/23 13:28 Interval history: Follow-up for acute kidney injury/acute renal failure. Renal function/creatinine continues to improve with ongoing therapy/interventions with good urine output noted; she remains awake/alert but confused; central line placed for IV medications/vasopressor therapy given issues with hypotension and Afib with RVR. Exam Narrative: General: elderly and malnourished female in NAD Heart: normal S1 and S2; no rub Lungs: clear to auscultation Abdomen: soft, nontender, nondistended, positive bowel sounds Extremities: no cyanosis or clubbing; trace - 1+ edema Skin: wounds as noted Objective Data Vital Signs Vital Signs: Vital Signs Temp Pulse Resp BP Pulse Ox O2 Del Method O2 Flow Rate 12/23/23 12:00 111 H 12/23/23 12:00 115 H 108/68 12/23/23 10:00 119 H 103/70 12/23/23 10:00 111 H 103/70 12/23/23 08:00 110 H 96/62 L 12/23/23 12:00 118 H 12 108/68 97 12/23/23 10:00 119 H 15 103/70 94 12/23/23 10:00 126 H 12/23/23 08:00 116 H 12/23/23 08:00 98.4 F 116 H 15 96/62 L 98 12/23/23 12:00 110 H 108/68 12/23/23 08:54 123 H 100/70 12/23/23 08:53 117 H 105/63 12/23/23 08:40 121 H
--- NOTE | 2023-12-23 13:28 | P.PNNP_ITS ---
Progress Note: A&P Assessment and Plan (1) CHRISTIANA (acute kidney injury): Code(s): N17.9 - Acute kidney failure, unspecified Status: Acute Assessment and Plan: * improvement noted * normal creatinine/renal function at baseline * creatinine of 3.8mg/dl on admission with improvement noted * suspect due to volume depletion/dehydration with possible component of renal hypoperfusion/ATN complicated by obstructive uropathy (given admission imaging) * s/p aggressive IVF resuscitation with reasonable UOP noted * evaluation to date noted: * urine electrolytes prerenal * urine eosinophils negative * UA c/w with infection * CPK mildly elevated - not enough to affect kidney function * Admission CT abd/pelvis with hydronephrosis (Urology following * collado catheter in place * follow trend of repeat labs and UOP (2) Sepsis: Code(s): A41.9 - Sepsis, unspecified organism Status: Acute Assessment and Plan: * presumably secondary to sacral decubitus wound and UTI along with possible right foot cellulitis * s/p aggressive IVF resuscitation and on maintenance IVFs * follow culture (blood, urine and wound) data * blood and urine cultures with GNB * on IV antibiotics * vasopressor therapy to maintain MAP * General Surgery following for sacral decubitus ulcer * wound care following (3) Hyperkalemia: Code(s): E87.5 - Hyperkalemia Status: Acute Assessment and Plan: * resolved - now with issues of hypokalemia * due to #1 * s/p medical management in ER * follow trend of repeat K+ levels (4) Decubitus ulcer: Qualifiers: Pressure injury location: sacral region Pressure injury stage: stage 4 Qualified Code(s): L89.154 - Pressure ulcer of sacral region, stage 4 Code(s): L89.90 - Pressure ulcer of unspecified site, unspecified stage Status: Acute Assessment and Plan: * Surgery consulted * likely to need possible debridement * local wound care (5) Cellulitis: Code(s): L03.90 - Cellulitis, unspecified Status: Acute Assessment and Plan: * based on appearance/exam of right foot * follow culture data * on antibiotics (6) Encephalopathy: Code(s): G93.40 - Encephalopathy, unspecified Status: Acute Assessment and Plan: * improvement noted * suspect secondary to CHRISTIANA and associated uremia * Head CT negative * TSH okay * follow-up on ammonia level * follow mentation (7) Adult failure to thrive: Code(s): R62.7 - Adult failure to thrive Status: Acute Assessment and Plan: * as noted by history * dietary following * NG tube placed for feeding Will continue to follow. Subjective Date/time seen: 12/23/23 13:28 Interval history: Follow-up for acute kidney injury/acute renal failure. Renal function/creatinine continues to improve with ongoing therapy/intervention s with good urine output noted; she remains awake/alert but confused; central line placed for IV medications/vasopressor therapy given issues with hypotension and Afib with RVR. Exam Narrative: General: elderly and malnourished female in NAD Heart: normal S1 and S2; no rub Lungs: clear to auscultation Abdomen: soft, nontender, nondistended, positive bowel sounds Extremities: no cyanosis or clubbing; trace - 1+ edema Skin: wounds as noted Objective Data Vital Signs Vital Signs:
[2023-12-23] MEDS: CENTRAL LINE FLUSH 10 ML IV PUSH ×2 (14:29→20:27)
--- NOTE | 2023-12-23 17:26 | PM.IMPN ---
Progress Note: A&P Assessment and Plan (1) Hydronephrosis: Code(s): N13.30 - Unspecified hydronephrosis Status: Acute Assessment and Plan: Now s/p collado catheter placement which is draining well and creatinine is improving. Will continue to monitor creatinine and consider repeat renal US in next 1-2 days to ensure resolution of hydronephrosis (2) Acute renal failure: Code(s): N17.9 - Acute kidney failure, unspecified Status: Acute Assessment and Plan: Patient presented with acute renal failure likely 2nd dehydration which has progressed to ATN and along with possible rhabdomyolysis Patient received IV fluid bolus and IV fluids will be continued. Patient is now producing urine and will monitor urine output electrolytes and creatinine Hyperkalemia was treated with insulin and dextrose along with calcium in the ER and improved 5.1 will start IV fluid bicarb and will also give 1 dose of Lokelma monitor Monitor electrolytes creatinine and urine output CT scan shows bilateral hydroureteronephrosis but no obstructing stone Nephrology neurology has been consulted (3) Sepsis: Code(s): A41.9 - Sepsis, unspecified organism Status: Acute Assessment and Plan: Patient appears to have sepsis secondary to decubitus wound which is likely infected and UTI. There is also component of cellulitis of right foot Patient received 2 L fluid bolus in the ER and I will give additional 1 L Continue IV fluids Blood and urine cultures have been sent Continue vancomycin and add meropenem General surgery consult for sacral decubitus wound, laboratory machinist consult for necrosis of labia, urology consult CT does not show any free air and on the exam I do not see any crepitus or free air concerning of Jen's gangrene at this time Local Wound care as per Wound Care Service (4) Adult failure to thrive: Code(s): R62.7 - Adult failure to thrive Status: Acute Assessment and Plan: Consult dietian Subjective Date/time seen: 12/23/23 17:26 Interval history: Patient was placed on central line. Surgery was consulted and she will undergo excisional debridement of necrotic sacral decubitus ulcer if patient is medically stable.urology is consulted current patient status post Collado catheter placement draining well and the creatinine has been improving. Review of Systems Review of Systems: All systems reviewed & are unremarkable except as noted in HPI and below ROS unobtainable: Yes unobtainable due to medical condition and unobtainable due to mental status Exam Narrative: General: Awake, comfortable, no acute distress HEENT: Normocephalic, atraumatic, sclerae anicteric Respiratory: Normal respiratory effort, no accessory muscle use Abdomen: Nondistended, soft, nontender : Collado catheter draining clear yellow urine Skin: Normal coloration, warm and dry Neurologic: No focal neuro deficits noted, slightly confused Psychiatric: Appropriate mood and affect, judgment and insight poor Objective Data Vital Signs Vital Signs: Vital Signs - 24 hr 12/22/23 17:33 12/22/23 17:46 12/22/23 18:02 Temperature Pulse Rate 151 H 130 H 155 H Respiratory Rate Blood Pressure 82/58 L 70/58 L 89/57 L Pulse Oximetry Oxygen Delivery Oxygen Flow Rate 12/22/23 18:02 12/22/23 18:00 12/22/23 18:01 Temperature 99.5 F Pulse Rate 155 H 146 H 156 H Respiratory Rate 20 Blood Pressure 89/57 L 89/57 L Pulse Oximetry 95 Oxygen Delivery Oxygen Flow Rate 12/22/23 18:15 12/22/23 18:32 12/22/23 18:45 Temperature Pulse Rate 144 H 143 H 151 H Respiratory Rate Blood Pressure 85/59 L 77/59 L 93/67 L Pulse Oximetry Oxygen Delivery Oxygen Flow Rate 12/22/23 19:00 12/22/23 19:20 12/22/23 20:00 Temperature 99.2 F Pulse Rate 143 H 141 H 139 H Respiratory Rate 15 Blood Pressure 93/65 L 79/63 L 91/63 L Pulse Oximetry 94 Oxygen Delivery Oxygen Flow Rate
[2023-12-23] MEDS: PHENYLEPHRINE HCL INJ 50 MG in DEXTROSE 5% IN WATER 250 ML/245 ML BAG 24 ML IV CONT (17:45)
[2023-12-23 17:54] LABS: Glucose Point of Care 97 mg/dl (65-105)
[2023-12-23 19:07] LABS: Potassium 3.7 mmol/L (3.4-5.0)
[2023-12-23] MEDS: AMIODARONE 150 MG/D5W 100 ML 150 MG/100 ML BAG 600 MG IV CONT (19:52)
[2023-12-23] MEDS: POTASSIUM CHLORIDE 20 MEQ PACKET (FOR LIQUID) FEED TUBE (20:03)
[2023-12-23] MEDS: ACETAMINOPHEN ELIXIR 325 MG/10.15 ML UDC 650 MG PO (20:03)
[2023-12-23 20:43] LABS: Glucose Point of Care 134 mg/dl (65-105)
--- NOTE | 2023-12-23 23:26 | PC.NURSE ---
Dr Flynn notified for increased pain during dressing change, new order received.
[2023-12-23] MEDS: fentaNYL CITRATE INJ (*CRX) 100 MCG/2 ML VIAL 50 MCG IV PUSH (23:30)
[2023-12-24] VITALS (49 sets, daily range): BP systolic 95–141; BP diastolic 47–94; PULSE 73–144; RESP 12–71; TEMP 36.6–38.1; O2SAT 92–99
[2023-12-24 00:22] LABS: Glucose Point of Care 128 mg/dl (65-105)
[2023-12-24] MEDS: AMIODARONE 360 MG/D5W 200 ML 360 MG/200 ML BAG 33.33 MG IV CONT (02:02)
--- NOTE | 2023-12-24 02:45 | ECG_ITS ---
Test Date: 2023-12-24 02:54:17 Measurements Intervals [place] Rate: 79 P: 79 MT: 157 QRS: 55 QRSD: 89 T: 51 QT: 407 QTc: 469 Interpretive Statements SINUS RHYTHM WITH OCCASIONAL SUPRAVENTRICULAR PREMATURE COMPLEXES DELAYED PRECORDIAL R/S TRANSITION BASELINE ARTIFACT- I, II, III, AVR, AVL, AVF, V1-V6 BORDERLINE ECG Compared to ECG 12/22/2023 12:05:44 HEART RATE HAS DECREASED Electronically Signed On 12-24-2023 05:29:05 CDT by Marcin Bond D.O.
--- NOTE | 2023-12-24 02:50 | PC.NURSE ---
Patient converted from Afib RVR to Sinus Rhythm at 0223. Verified by 12 lead EKG. Patient continues on Amiodarone drip at 1 mg/min. HR 72.
[2023-12-24] MEDS: PHENYLEPHRINE HCL INJ 50 MG in DEXTROSE 5% IN WATER 250 ML/245 ML BAG 21 ML IV CONT (03:45)
[2023-12-24] MEDS: ALBUMIN HUMAN 25% 25 GM/100 ML 100 ML IVPB (05:25)
[2023-12-24] MEDS: MORPHINE SULFATE (*CRX) 2 MG/ML INJ IV PUSH ×4 (05:26→21:01)
[2023-12-24] MEDS: CENTRAL LINE FLUSH 10 ML IV PUSH ×3 (05:28→20:57)
[2023-12-24 06:15] LABS: Glucose Point of Care 148 mg/dl (65-105)
[2023-12-24 06:19] LABS: Hematocrit 26.3 % (37.0-47.0); Hemoglobin 7.9 g/dL (12.0-15.0); Mean Corpuscular Hemoglobin 25.2 pg (26-34); Mean Corpuscular Volume 83.8 fl (80-100); Mean Platelet Volume 11.1 fl (7.4-10.4); Platelet Count Result 217 k/mm3 (150-375); Red Blood Count 3.14 M/mm3 (4.2-5.4); Red Cell Distribution Width 16.1 % (11.5-14.5); White Blood Count 23.4 K/mm3 (4.5-10.0)
[2023-12-24 06:33] LABS: Alanine Aminotransferase 15 U/L (6-35); Albumin Level 3.4 g/dL (3.5-5.1); Alkaline Phosphatase 56 U/L (38-126); Anion Gap 9 mmol/L (4-12); Aspartate Amino Transferase 21 U/L (14-36); Bilirubin,Total 0.9 mg/dL (0.2-1.3); Blood Urea Nitrogen 42 mg/dL (7-17); Calcium 8.3 mg/dL (8.4-10.2); Carbon Dioxide 27 mmol/L (22-30); Chloride 103 mmol/L (98-107); Creatine Kinase 77 U/L (30-135); Estimated CRCL calculation 73 ml/min; Estimated Glomerular Filt Rate > 60; Glucose 136 mg/dL (65-110); Magnesium 1.6 mg/dL (1.6-2.3); Phosphorus 1.7 mg/dL (2.5-4.5); Potassium 3.5 mmol/L (3.4-5.0); Sodium 139 mmol/L (137-145)
--- NOTE | 2023-12-24 08:50 | WPDINTPN ---
Progress Note: A&P Assessment and Plan (1) Sepsis: Code(s): A41.9 - Sepsis, unspecified organism Status: Acute Assessment and Plan: Patient appears to have sepsis secondary to decubitus wound which is likely infected and UTI. There is also component of cellulitis of right foot Urine culture is growing Pseudomonas Blood culture is growing Proteus and Gram-negative bacilli Patient received IV fluid bolus in the ER followed by additional bolus in the ICU and now off IV fluid Continue low-dose Roberto-Synephrine to support blood pressure Continue vancomycin and meropenem General surgery consult for sacral decubitus wound and patient is scheduled to go to OR today for debridement Patient was also evaluated by Commercial Correspondent and local wound care was recommended CT does not show any free air and on the exam I do not see any crepitus or free air concerning of Jen's gangrene at this time Local Wound care as per Wound Care Service (2) Adult failure to thrive: Code(s): R62.7 - Adult failure to thrive Status: Acute Assessment and Plan: Patient confused at this time. NG tube inserted and patient is currently on tube feeds. Will hold tube feeds for surgery and resume post surgery. Dietitian consult (3) Acute renal failure: Code(s): N17.9 - Acute kidney failure, unspecified Status: Acute Assessment and Plan: Patient presented with acute renal failure likely 2nd dehydration which has progressed to ATN and along with possible rhabdomyolysis Patient received IV fluid bolus and IV fluids were continued. Patient is now producing urine Creatinine is improving and down to normal range Hyperkalemia was treated with insulin and dextrose along with calcium in the ER and improved 5.1 will start IV fluid bicarb and will also give 1 dose of Lokelma monitor and has resolved Monitor electrolytes creatinine and urine output CT scan shows bilateral hydroureteronephrosis but no obstructing stone Nephrology and Urology has been consulted (4) Acute hyperkalemia: Code(s): E87.5 - Hyperkalemia Status: Acute Assessment and Plan: Resolved and patient is now hypokalemic and electrolytes will be replaced. (5) Decubitus ulcer: Code(s): L89.90 - Pressure ulcer of unspecified site, unspecified stage Status: Acute Assessment and Plan: See above (6) Rhabdomyolysis: Qualifiers: Encounter type: initial encounter Rhabdomyolysis type: traumatic Qualified Code(s): T79.6XXA - Traumatic ischemia of muscle, initial encounter Code(s): M62.82 - Rhabdomyolysis Status: Acute Assessment and Plan: See above (7) Dehydration: Code(s): E86.0 - Dehydration Status: Inactive Assessment and Plan: See above (8) Encephalopathy: Code(s): G93.40 - Encephalopathy, unspecified Status: Acute Assessment and Plan: Likely secondary to uremia and delirium Uremia has improved Head CT was negative for any acute change TSH was normal Monitor (9) Cellulitis: Code(s): L03.90 - Cellulitis, unspecified Status: Acute Assessment and Plan: See above (10) Atrial fibrillation with RVR: Code(s): I48.91 - Unspecified atrial fibrillation Status: Acute Assessment and Plan: Patient went to AFib with RVR yesterday likely sepsis. Converted to sinus rhythm. Will discontinue amiodarone. Echocardiogram reviewed. Not on anti anticoagulation as patient will be going for surgery today. Will start aspirin post surgery and if patient does develops recurrence of AFib will proceed with anticoagulation if possible. (11) Hypotension: Code(s): I95.9 - Hypotension, unspecified Status: Acute Assessment and Plan: Patient will hypotension yesterday after she went to AFib with RVR Lactic acid level has normalized She has received good amount of IV fluids and was not further fluid responsive on nicom assessment S
[2023-12-24] MEDS: POTASSIUM PHOS,M-BASIC-D-BASIC 20 MMOL in SODIUM CHLORIDE 0.9% IV 250 ML 64.17 MMOL IVPB (08:55)
[2023-12-24] MEDS: MAGNESIUM SULF 2 GM/WATER 50ML 2 GM/50 ML BAG IVPB (08:55)
[2023-12-24] MEDS: MEROPENEM 1 GM/NS 100 ML 1 GM/100 ML BAG IVPB ×2 (08:56→17:27)
[2023-12-24] MEDS: SOD HYPOCHLORITE 1/4 STRENGTH 473 ML 1 APPLIC TOPICAL ×2 (08:56→20:57)
[2023-12-24] MEDS: TOLNAFTATE 1% POWDER 45 GM BTL 1 APPLIC TOPICAL ×2 (08:56→20:57)
--- NOTE | 2023-12-24 10:43 | PCFNICU ---
ICU Rounding Note: Pt current nutrition is NPO. Nutrition recommendation: Goal rate 55 ml/hr Last recorded weight is 84.4 kg, up from 75.8 kg on admit. Bowel Motility:No BM reported. Labs Reviewed:Glu 136, BUN 42, Cr 0.6, Alb 3.4 Meds Noted:Vancomycin, Meropenem Skin: WNL Additional Notes: Patient started on tube feedings of Jevity 1.5 at 20 ml/hr on 12/22. Spoke with Manager Supply today, plans for tube feedings at 30 ml/hr with flush 30 ml q 4 hours to restart after procedure. Goal rate recommending at 55 ml/hr, providing 1815 kcal/77 gm protein/920 ml water. Following daily in ICU rounds. Will monitor weight labs, skin, oral intake, meds every Thursday and Thursday.
[2023-12-24 11:47] LABS: Glucose Point of Care 107 mg/dl (65-105)
--- NOTE | 2023-12-24 12:15 | PM.PNNEP ---
Progress Note: A&P Assessment and Plan (1) CHRISTIANA (acute kidney injury): Code(s): N17.9 - Acute kidney failure, unspecified Status: Acute Assessment and Plan: improvement noted normal creatinine/renal function at baseline creatinine of 3.8mg/dl on admission with improvement noted suspect due to volume depletion/dehydration with possible component of renal hypoperfusion/ATN complicated by obstructive uropathy (given admission imaging) s/p aggressive IVF resuscitation with reasonable UOP noted evaluation to date noted: urine electrolytes prerenal urine eosinophils negative UA c/w with infection CPK mildly elevated - not enough to affect kidney function Admission CT abd/pelvis with hydronephrosis (Urology following) collado catheter in place follow trend of repeat labs and UOP (2) Sepsis: Code(s): A41.9 - Sepsis, unspecified organism Status: Acute Assessment and Plan: presumably secondary to sacral decubitus wound and UTI along with possible right foot cellulitis s/p aggressive IVF resuscitation and on maintenance IVFs follow culture (blood, urine and wound) data blood cultures with Proteus urine cultures with Pseudomonas wound cultures with Proteus on IV antibiotics follow repeat blood cultures vasopressor therapy to maintain MAP General Surgery following for sacral decubitus ulcer wound care following (3) Hyperkalemia: Code(s): E87.5 - Hyperkalemia Status: Resolved Assessment and Plan: resolved - now with issues of hypokalemia due to #1 s/p medical management in ER follow trend of repeat K+ levels (4) Decubitus ulcer: Qualifiers: Pressure injury location: sacral region Pressure injury stage: stage 4 Qualified Code(s): L89.154 - Pressure ulcer of sacral region, stage 4 Code(s): L89.90 - Pressure ulcer of unspecified site, unspecified stage Status: Acute Assessment and Plan: Surgery following possible debridement in OR today local wound care (5) Cellulitis: Code(s): L03.90 - Cellulitis, unspecified Status: Acute Assessment and Plan: based on appearance/exam of right foot follow culture data on antibiotics (6) Encephalopathy: Code(s): G93.40 - Encephalopathy, unspecified Status: Acute Assessment and Plan: improvement noted suspect secondary to CHRISTIANA and associated uremia Head CT negative TSH okay follow-up on ammonia level follow mentation (7) Adult failure to thrive: Code(s): R62.7 - Adult failure to thrive Status: Acute Assessment and Plan: as noted by history dietary following NG tube placed for feeding Not much else to add -- will continue to follow from a distance. Subjective Date/time seen: 12/24/23 12:15 Interval history: Follow-up for acute kidney injury/acute renal failure. Mentaion appears stable if not a bit better (awake/alert but still confused); remains on low vasopressor (pheylephrine) to maintain MAP and renal function/creatinine continues to improve if not normalized with good urine output noted; noted possible plans for OR for debridement of sacral decubitus ulcer. Exam Narrative: General: elderly and malnourished female in NAD Heart: normal S1 and S2; no rub Lungs: clear to auscultation Abdomen: soft, nontender, nondistended, positive bowel sounds Extremities: no cyanosis or clubbing; trace - 1+ edema Skin: multiple wounds as noted previously Objective Data Vital Signs Vital Signs: Vital Signs Temp Pulse Resp BP Pulse Ox O2 Del Method O2 Flow Rate 12/24/23 12:00 99.9 F H 88 16 108/62 94 12/24/23 12:00 94 Nasal Cannula 2 12/24/23 12:00 91 12/24/23 12:45 90 108/57 L 12/24/23 12:30 91 107/57 L 12/24/23 12:15 88 96/51 L 12/24/23 12:00 88 108/62 12/24/23 11:45 91 109/61 12/24/23 11:30 8
--- NOTE | 2023-12-24 12:15 | P.PNNP_ITS ---
Progress Note: A&P Assessment and Plan (1) CHRISTIANA (acute kidney injury): Code(s): N17.9 - Acute kidney failure, unspecified Status: Acute Assessment and Plan: * improvement noted * normal creatinine/renal function at baseline * creatinine of 3.8mg/dl on admission with improvement noted * suspect due to volume depletion/dehydration with possible component of renal hypoperfusion/ATN complicated by obstructive uropathy (given admission imaging) * s/p aggressive IVF resuscitation with reasonable UOP noted * evaluation to date noted: * urine electrolytes prerenal * urine eosinophils negative * UA c/w with infection * CPK mildly elevated - not enough to affect kidney function * Admission CT abd/pelvis with hydronephrosis (Urology following) * collado catheter in place * follow trend of repeat labs and UOP (2) Sepsis: Code(s): A41.9 - Sepsis, unspecified organism Status: Acute Assessment and Plan: * presumably secondary to sacral decubitus wound and UTI along with possible right foot cellulitis * s/p aggressive IVF resuscitation and on maintenance IVFs * follow culture (blood, urine and wound) data * blood cultures with Proteus * urine cultures with Pseudomonas * wound cultures with Proteus * on IV antibiotics * follow repeat blood cultures * vasopressor therapy to maintain MAP * General Surgery following for sacral decubitus ulcer * wound care following (3) Hyperkalemia: Code(s): E87.5 - Hyperkalemia Status: Resolved Assessment and Plan: * resolved - now with issues of hypokalemia * due to #1 * s/p medical management in ER * follow trend of repeat K+ levels (4) Decubitus ulcer: Qualifiers: Pressure injury location: sacral region Pressure injury stage: stage 4 Qualified Code(s): L89.154 - Pressure ulcer of sacral region, stage 4 Code(s): L89.90 - Pressure ulcer of unspecified site, unspecified stage Status: Acute Assessment and Plan: * Surgery following * possible debridement in OR today * local wound care (5) Cellulitis: Code(s): L03.90 - Cellulitis, unspecified Status: Acute Assessment and Plan: * based on appearance/exam of right foot * follow culture data * on antibiotics (6) Encephalopathy: Code(s): G93.40 - Encephalopathy, unspecified Status: Acute Assessment and Plan: * improvement noted * suspect secondary to CHRISTIANA and associated uremia * Head CT negative * TSH okay * follow-up on ammonia level * follow mentation (7) Adult failure to thrive: Code(s): R62.7 - Adult failure to thrive Status: Acute Assessment and Plan: * as noted by history * dietary following * NG tube placed for feeding Not much else to add -- will continue to follow from a distance. Subjective Date/time seen: 12/24/23 12:15 Interval history: Follow-up for acute kidney injury/acute renal failure. Mentaion appears stable if not a bit better (awake/alert but still confused); remains on low vasopressor (pheylephrine) to maintain MAP and renal func tion/creatinine continues to improve if not normalized with good urine output noted; noted possible plans for OR for debridement of sacral decubitus ulcer. Exam Narrative: General: elderly and malnourished female in NAD Heart: normal S1 and S2; no rub Lungs: clear to auscultation Abdomen: soft, nontender, nondistended, positive bowel sounds
--- NOTE | 2023-12-24 12:54 | PM.GYNPNOP ---
POT PULLER - A/P Assessment and plan (1) Vulvar inflammation: Code(s): N76.2 - Acute vulvitis Status: Acute Assessment and Plan: Improving with local wound care. Continue plan per wound care. Cultures pos for mathew Guerrero. She is on antibiotic coverage for this. Will sign off. Call if any concerning change in vulvar area. Postoperative Procedures: Procedures Operation Date: 12/24/23 15:30 <No data on this case meets the specified criteria> Time Spent With Patient Time: Total time spent is greater than 50% in coordination of care (as documented) at patient's floor/unit and/or counseling patient: Time with patient: less than 15 minutes POT PULLER- PN:Subj Post-Op Subjective Date/time seen: 12/24/23 12:54 Interval history: Follow up on vulvar inflammation. Patient confused. Exam Const: General: confusion : Other: difficult exam, pt forcing legs closed, from visualization, labia improved, the dark area improved. POT PULLER - PN: Obj Data Vital Signs Vital Signs: Vital Signs - 24 hr 12/23/23 14:15 12/23/23 14:30 12/23/23 14:00 Temperature Pulse Rate 108 H 113 H 117 H Respiratory Rate Blood Pressure 100/78 107/71 Pulse Oximetry Oxygen Delivery Oxygen Flow Rate Fraction of Inspired Oxygen 12/23/23 14:00 12/23/23 16:00 12/23/23 14:45 Temperature 99.0 F Pulse Rate 116 H 113 H 114 H Respiratory Rate 15 Blood Pressure 100/78 84/63 L 96/63 L Pulse Oximetry 100 Oxygen Delivery Oxygen Flow Rate Fraction of Inspired Oxygen 12/23/23 14:00 12/23/23 14:00 12/23/23 16:00 Temperature Pulse Rate 116 H 116 H 97 Respiratory Rate Blood Pressure 100/78 100/78 84/63 L Pulse Oximetry Oxygen Delivery Oxygen Flow Rate Fraction of Inspired Oxygen 12/23/23 17:44 12/23/23 17:45 12/23/23 16:00 Temperature Pulse Rate 130 H 130 H 130 H Respiratory Rate Blood Pressure 91/62 L 91/62 L Pulse Oximetry Oxygen Delivery Oxygen Flow Rate Fraction of Inspired Oxygen 12/23/23 16:00 12/23/23 18:00 12/23/23 18:00 Temperature 99.5 F Pulse Rate 130 H 119 H 119 H Respiratory Rate 15 15 Blood Pressure 90/59 L 91/62 L Pulse Oximetry 98 98 Oxygen Delivery Oxygen Flow Rate Fraction of Inspired Oxygen 12/23/23 16:00 12/23/23 18:00 12/23/23 18:00 Temperature Pulse Rate 123 H 113 H Respiratory Rate Blood Pressure 108/79 108/79 Pulse Oximetry 97 Oxygen Delivery Room Air Oxygen Flow Rate Fraction of Inspired Oxygen 12/23/23 19:52 12/23/23 19:54 12/23/23 20:03 Temperature 100.8 F H Pulse Rate 148 H 166 H Respiratory Rate Blood Pressure 106/65 106/65 Pulse Oximetry Oxygen Delivery Oxygen Flow Rate Fraction of Inspired Oxygen 12/23/23 20:00 12/23/23 20:00 12/23/23 20:03 Temperature Pulse Rate 144 H 144 H 144 H Respiratory Rate Blood Pressure 100/72 100/72 100/72 Pulse Oximetry Oxygen Delivery Oxygen Flow Rate Fraction of Inspired Oxygen 12/23/23 19:54 12/23/23 20:00 12/23/23 20:48 Temperature 100.7 F H Pulse Rate 166 H 144 H 131 H Respiratory Rate 21 H Blood Pressure 106/65 100/72 85/56 L Pulse Oximetry 98 Oxygen Delivery Oxygen Flow Rate Fraction of Inspired Oxygen 12/23/23 20:00 12/23/23 20:00 12/23/23 21:03 Temperature 100.5 F H Pulse Rate 150 H Respiratory Rate Blood Pressure Pulse Oximetry 98 Oxygen Delivery Room Air Oxygen Flow Rate Fraction of Inspired Oxygen 12/23/23 22:00 12/23/23 22:00 12/23/23 22:00 Temperature 99.9 F H Pulse Rate 129 H 129 H 129 H Respiratory Rate 18 Blood Pressure 109/60 109/60 Pulse Oximetry 98 Oxygen Delivery Oxygen Flow Rate Fraction of Inspired Oxygen 12/23/23 20:04 12/23/23 22:00 12/23/23 21:00 Temperature Pulse Rate 144 H 129 H 133 H Respiratory Rate Blood Pressure 100/72 106/60 97/75 L Pulse Oximetry Oxygen Deliver
--- NOTE | 2023-12-24 14:06 | WPDHPUPDATE1 ---
History and Physical Update Update Date/Time: 12/24/23 14:06 History and Physical has been reviewed, including an updated exam of the patient. There are NO changes in the patient's condition. Risks, benefits, and alternatives have been discussed and questions answered. Patient agrees to proceed with procedure.
--- NOTE | 2023-12-24 15:30 | PC.NURSE ---
patient to OR via bed and on OR monitor; report given to anesthesia about naman gtt going at 20mcg/min
--- NOTE | 2023-12-24 15:39 | WPDANESEPPF ---
Anes - Initial Pre Proc Eval Procedure: Operation Date: 12/24/23 15:30 Proposed Procedures p Debridement Sacral Decubitus Ulcer - Jericho Harrington DO Date/Time: 12/24/23 15:39 Surgeon: Manjit Flynn MD Pre Op Diagnosis: Sepsis, Failure to thrive, Acute renal failure, Ur Patient Data Age: 78 Gender: F Height: 1.65 m Weight: 84.4 kg Last Vital Signs Temp 37.7 C H 12/24/23 14:00 Pulse 91 12/24/23 14:30 Resp 14 12/24/23 14:00 BP 108/56 L 12/24/23 14:30 Pulse Ox 95 12/24/23 14:00 O2 Del Method Nasal Cannula 12/24/23 12:00 O2 Flow Rate 2 12/24/23 12:00 FiO2 28 12/24/23 08:17 Allergies Allergy/AdvReac Type Severity Reaction Status Date / Time No Known Allergies Allergy Verified 09/15/23 23:23 Home Medications Medication Instructions Recorded Confirmed Type aspirin 325 mg tablet (Harley 325 mg PO DAILY 12/22/23 12/22/23 History Aspirin) Laboratory Tests 12/23/23 12/23/23 12/23/23 17:50 18:36 20:15 WBC RBC Hgb Hct MCV MCH MCHC RDW Plt Count MPV Sodium Potassium 3.7 mmol/L (3.4-5.0) Chloride Carbon Dioxide Anion Gap BUN Creatinine Estim Creat Clear Calc Estimated GFR Glucose POC Capillary Glucose 97 mg/dl 134 H mg/dl (65-105) (65-105) Calcium Phosphorus Magnesium Total Bilirubin AST ALT Alkaline Phosphatase Total Creatine Kinase Total Protein Albumin 12/24/23 12/24/23 12/24/23 00:12 06:01 06:08 WBC 23.4 H K/mm3 (4.5-10.0) RBC 3.14 L M/mm3 (4.2-5.4) Hgb 7.9 L g/dL (12.0-15.0) Hct 26.3 L % (37.0-47.0) MCV 83.8 fl (80-100) MCH 25.2 L pg (26-34) MCHC 30.0 L g/dl (32-36) RDW 16.1 H % (11.5-14.5) Plt Count 217 k/mm3 (150-375) MPV 11.1 H fl (7.4-10.4) Sodium 139 mmol/L (137-145) Potassium 3.5 mmol/L (3.4-5.0) Chloride 103 mmol/L (98-107) Carbon Dioxide 27 mmol/L (22-30) Anion Gap 9 mmol/L (4-12) BUN 42 H D mg/dL (7-17) Creatinine 0.60 L mg/dL (0.7-1.0) Estim Creat Clear Calc 73 ml/min Estimated GFR > 60 (59 - ) Glucose 136 H mg/dL (65-110) POC Capillary Glucose 128 H mg/dl 148 H mg/dl (65-105) (65-105) Calcium 8.3 L mg/dL (8.4-10.2) Phosphorus 1.7 L mg/dL (2.5-4.5) Magnesium 1.6 mg/dL (1.6-2.3) Total Bilirubin 0.9 mg/dL (0.2-1.3) AST 21 U/L (14-36) ALT 15 U/L (6-35) Alkaline Phosphatase 56 U/L (38-126) Total Creatine Kinase 77 U/L (30-135) Total Protein 6.0 L g/dL (6.3-8.2) Albumin 3.4 L g/dL (3.5-5.1) 12/24/23 11:44 WBC RBC Hgb Hct MCV MCH MCHC RDW Plt Count MPV Sodium Potassium Chloride Carbon Dioxide Anion Gap BUN Creatinine Estim Creat Clear Calc Estimated GFR Glucose POC Capillary Glucose 107 H mg/dl (65-105) Calcium Phosphorus Magnesium Total Bilirubin AST ALT Alkaline Phosphatase Total Creatine Kinase Total Protein Albumin Patient hx anesthesia problems: none Family hx anesthesia problems: none Results Review: All pre-operative results and documents have been reviewed as part of the pre-operative evaluation. [facility] Past Medical History Medical History (Reviewed 12/22/23 @ 22:45 by Johnny Gutierrez
--- NOTE | 2023-12-24 15:55 | P.PNIM_ITS ---
Progress Note: A&P Assessment and Plan (1) Sepsis: Code(s): A41.9 - Sepsis, unspecified organism Status: Acute Assessment and Plan: Patient appears to have sepsis secondary to decubitus wound which is likely in fected and UTI. There is also component of cellulitis of right foot Urine culture is growing Pseudomonas Blood culture is growing Proteus and Gram-negative bacilli Patient received IV fluid bolus in the ER followed by additional bolus in the ICU and now off IV fluid Continue low-dose Roberto-Synephrine to support blood pressure Continue vancomycin and meropenem General surgery consult for sacral decubitus wound and patient is scheduled to go to OR today for debridement Patient was also evaluated by Water Technician and local wound care was recommended CT does not show any free air and on the exam I do not see any crepitus or free air concerning of Jen's gangrene at this time Local Wound care as per Wound Care Service (2) Adult failure to thrive: Code(s): R62.7 - Adult failure to thrive Status: Acute Assessment and Plan: Patient confused at this time. NG tube inserted and patient is currently on tube feeds. Will hold tube feeds for surgery and resume post surgery. Dietitian consult (3) Acute renal failure: Code(s): N17.9 - Acute kidney failure, unspecified Status: Acute Assessment and Plan: Patient presented with acute renal failure likely 2nd dehydration which has progressed to ATN and along with possible rhabdomyolysis Patient received IV fluid bolus and IV fluids were continued. Patient is now producing urine Creatinine is improving and down to normal range Hyperkalemia was treated with insulin and dextrose along with calcium in the ER and improved 5.1 will start IV fluid bicarb and will also give 1 dose of Lokelma monitor and has resolved Monitor electrolytes creatinine and urine output CT scan shows bilateral hydroureteronephrosis but no obstructing stone Nephrology and Urology has been consulted (4) Acute hyperkalemia: Code(s): E87.5 - Hyperkalemia Status: Acute Assessment and Plan: Resolved and patient is now hypokalemic and electrolytes will be replaced. (5) Decubitus ulcer: Code(s): L89.90 - Pressure ulcer of unspecified site, unspecified stage Status: Acute Assessment and Plan: See above (6) Rhabdomyolysis: Qualifiers: Encounter type: initial encounter Rhabdomyolysis type: traumatic Qualified Code(s): T79.6XXA - Traumatic ischemia of muscle, initial encounter Code(s): M62.82 - Rhabdomyolysis Status: Acute Assessment and Plan: See above (7) Dehydration: Code(s): E86.0 - Dehydration Status: Inactive Assessment and Plan: See above (8) Encephalopathy: Code(s): G93.40 - Encephalopathy, unspecified Status: Acute Assessment and Plan: Likely secondary to uremia and delirium Uremia has improved Head CT was negative for any acute change TSH was normal Monitor (9) Cellulitis: Code(s): L03.90 - Cellulitis, unspecified Status: Acute Assessment and Plan: See above (10) Atrial fibrillation with RVR: Code(s): I48.91 - Unspecified atrial fibrillation Status: Acute Assessment and Plan: Patient went to AFib with RVR yesterday likely sepsis. Converted to sinus rhythm. Will discontinue amiodarone. Echocardiogram reviewed. Not on anti anticoagulation as patient will be going for surgery today. Will start aspirin post surgery and if patient does develops recur
--- NOTE | 2023-12-24 16:55 | P.OP_ITS ---
Procedure Note - Detailed Date of Procedure 12/24/23 Pre-op Diagnosis Unstageable sacral decubitus ulcer Post-op Diagnosis Other (Stage IV sacral decubitus ulcer) Procedure Performed Sharp excisional debridement of sacral decubitus ulcer including skin, subcutaneous fat, muscle, and fascia measuring 20 cm x 15 cm Surgeon Jericho Harrington, DO Anesthesia General Indications This is a 78-year-old woman who presented to the emergency department with multiple wounds. She was found at home by herself in a wheelchair and had been there for probably at least a week. She was sitting in her own feces and urine. She has a large sacral decubitus ulcer we will with soft tissue deep to it. The surface of the skin is necrotic but unstageable due to the intact necrotic surface. She came in septic with acute renal failure and electrolyte abnormalities. She has been resuscitated in the ICU and decision was made to proceed with debridement of the sacral ulcer. Findings Sharp excisional debridement was performed on the sacral ulcer. The total measurement underneath the skin surface of all of the debridement measured 20 cm x 15 cm. This included skin, subcutaneous fat, muscle, and fascia. The wound was tunneling cephalad about 6-8 cm above the skin. It was also tunneling to the left for about 6-8 cm. The right side was able to be adequately sharply debrided. There was still some necrotic surface within the wound bed but most of the tissue was debrided back to healthy-appearing bleeding tissue. No specimens were obtained for pathology. Description of Procedure Procedure as well as risks, benefits, and alternatives were discussed with the family of the patient. Verbal consent was obtained and placed chart prior to procedure. The patient was brought back to the surgical suite. She was placed supine on the operating table. She was then intubated by the anesthesia department. She was then repositioned to the right lateral decubitus position. Time-out was done to confirm patient and procedure. Her sacral area was prepped and draped in sterile fashion using Betadine prep. Sharp excisional debridement was performed using a 15 blade scalpel and curved Lopze scissors. Debridement w as carried out through the skin and subcutaneous tissue down to the level of healthy appearing bleeding tissue. This included sharp excision of skin, subcutaneous fat, muscle, and fascia. The wound appeared to go all the way down to the sacrum, but the bone appeared to be intact. Electrocautery was used for hemostasis in areas where bleeding was noted. I debrided back until the majority of the tissue appeared healthy and viable. There was still some necrotic appearing slough in the left sacral region. Most of the rest of the tissue appeared healthy and viable. The wound was then irrigated with sterile saline. The wound was then packed with Dakin's soaked Kerlix gauze. A total of 3 Kerlix gauzes were placed within the sacral wound. Fluff gauze, ABD pads, and mesh underwear were then applied. The patient was then awakened from anesthesia, extubated, and transferred back to the ICU. Estimated Blood Loss 20 Urine Output 1,100 Complications No immediate complications Condition Critical Disposition ICU [facility] Billing Surgery - Charge Forward: Surgery Billing
--- NOTE | 2023-12-24 17:00 | PC.NURSE ---
pt back from OR; 8L of oxygen via face mask and naman gtt still at 20mcg/min; pt drowsy but awakes easily, only alert to self
[2023-12-24 17:30] LABS: Glucose Point of Care 88 mg/dl (65-105)
[2023-12-24] MEDS: VANCOMYCIN 1,250 MG/NS 250 ML 1,250 MG/250 ML BAG 166.67 MG IVPB (18:35)
[2023-12-25] VITALS (15 sets, daily range): BP systolic 100–133; BP diastolic 54–99; PULSE 97–116; RESP 13–20; TEMP 37.2–38.6; O2SAT 92–99
[2023-12-25] MEDS: MEROPENEM 1 GM/NS 100 ML 1 GM/100 ML BAG IVPB ×3 (00:05→17:41)
[2023-12-25 00:09] LABS: Glucose Point of Care 139 mg/dl (65-105)
[2023-12-25] MEDS: MORPHINE SULFATE (*CRX) 2 MG/ML INJ IV PUSH ×3 (02:21→21:07)
[2023-12-25 05:28] LABS: Hematocrit 27.6 % (37.0-47.0); Hemoglobin 8.5 g/dL (12.0-15.0); Mean Corpuscular HGB Conc 30.8 g/dl (32-36); Mean Corpuscular Hemoglobin 25.8 pg (26-34); Mean Corpuscular Volume 83.6 fl (80-100); Mean Platelet Volume 10.6 fl (7.4-10.4); Platelet Count Result 217 k/mm3 (150-375); Red Cell Distribution Width 16.4 % (11.5-14.5); White Blood Count 21.2 K/mm3 (4.5-10.0)
[2023-12-25 05:47] LABS: Alanine Aminotransferase 16 U/L (6-35); Albumin Level 2.9 g/dL (3.5-5.1); Alkaline Phosphatase 62 U/L (38-126); Anion Gap 6 mmol/L (4-12); Aspartate Amino Transferase 31 U/L (14-36); Bilirubin,Total 1.2 mg/dL (0.2-1.3); Blood Urea Nitrogen 23 mg/dL (7-17); Carbon Dioxide 31 mmol/L (22-30); Chloride 107 mmol/L (98-107); Creatine Kinase 76 U/L (30-135); Estimated CRCL calculation 100 ml/min; Estimated Glomerular Filt Rate > 60; Glucose 136 mg/dL (65-110); Magnesium 1.5 mg/dL (1.6-2.3); Phosphorus 1.3 mg/dL (2.5-4.5); Sodium 144 mmol/L (137-145)
[2023-12-25] MEDS: CENTRAL LINE FLUSH 10 ML IV PUSH ×3 (05:50→20:55)
[2023-12-25] MEDS: POTASSIUM/PHOSPHORUS/SODIUM 1.5 GM PACKET 1 PACKET PO (08:23)
[2023-12-25] MEDS: MAGNESIUM SULF 2 GM/WATER 50ML 2 GM/50 ML BAG IVPB (08:23)
[2023-12-25] MEDS: ASPIRIN 325 MG TABLET PO (08:23)
[2023-12-25] MEDS: ENOXAPARIN 40 MG/0.4 ML SYRINGE SUB-Q (08:23)
[2023-12-25] MEDS: TOLNAFTATE 1% POWDER 45 GM BTL 1 APPLIC TOPICAL ×2 (08:24→20:55)
[2023-12-25] MEDS: SOD HYPOCHLORITE 1/4 STRENGTH 473 ML 1 APPLIC TOPICAL ×2 (08:24→20:55)
[2023-12-25] MEDS: SODIUM PHOSPHATE 20 MM in DEXTROSE 5% IN WATER 250 ML 50 MM IVPB (08:24)
[2023-12-25] MEDS: ACETAMINOPHEN ELIXIR 325 MG/10.15 ML UDC 650 MG PO ×2 (08:25→17:48)
--- NOTE | 2023-12-25 09:27 | P.PNINT_ITS ---
Progress Note: A&P Assessment and Plan (1) Sepsis: Code(s): A41.9 - Sepsis, unspecified organism Status: Acute Assessment and Plan: Patient appears to have sepsis secondary to decubitus wound which is likely in fected and UTI. There is also component of cellulitis of right foot Urine culture is growing Pseudomonas Blood culture is growing Proteus and Gram-negative bacilli 12/23 repeat blood culture sent Patient received IV fluid bolus in the ER followed by additional bolus in the ICU and now off IV fluid Off vasopressors Continue vancomycin and meropenem General surgery consult for sacral decubitus wound and patient underwent surgical debridement on 12/23 Patient was also evaluated by Refractory Products Supervisor and local wound care was recommended CT does not show any free air and on the exam I do not see any crepitus or free air concerning of Jen's gangrene at this time Local Wound care as per Wound Care Service (2) Adult failure to thrive: Code(s): R62.7 - Adult failure to thrive Status: Acute Assessment and Plan: Patient confused at this time. NG tube inserted and patient is currently on tube feeds. Consult speech for swallow evaluation Dietitian consult (3) Acute renal failure: Code(s): N17.9 - Acute kidney failure, unspecified Status: Acute Assessment and Plan: Patient presented with acute renal failure likely 2nd dehydration which has progressed to ATN and along with possible rhabdomyolysis Patient received IV fluid bolus and IV fluids were continued. Patient is now producing urine Creatinine is improving and down to normal range Hyperkalemia was treated with insulin and dextrose along with calcium in the ER and improved 5.1 will start IV fluid bicarb and will also give 1 dose of Lokelma monitor and has resolved Monitor electrolytes creatinine and urine output CT scan shows bilateral hydroureteronephrosis but no obstructing stone Nephrology and Urology has been consulted (4) Decubitus ulcer: Code(s): L89.90 - Pressure ulcer of unspecified site, unspecified stage Status: Acute Assessment and Plan: See above (5) Rhabdomyolysis: Qualifiers: Encounter type: initial encounter Rhabdomyolysis type: traumatic Qualified Code(s): T79.6XXA - Traumatic ischemia of muscle, initial encounter Code(s): M62.82 - Rhabdomyolysis Status: Acute Assessment and Plan: See above (6) Dehydration: Code(s): E86.0 - Dehydration Status: Inactive Assessment and Plan: See above (7) Encephalopathy: Code(s): G93.40 - Encephalopathy, unspecified Status: Acute Assessment and Plan: Likely secondary to uremia and delirium Uremia has improved Head CT was negative for any acute change TSH was normal Monitor (8) Cellulitis: Code(s): L03.90 - Cellulitis, unspecified Status: Acute Assessment and Plan: See above (9) Atrial fibrillation with RVR: Code(s): I48.91 - Unspecified atrial fibrillation Status: Acute Assessment and Plan: Patient went to AFib with RVR yesterday likely sepsis. She was started on amiodarone infusion and Converted to sinus rhythm. Now off of amiodarone. Echocardiogram reviewed. Not on anti anticoagulation as patient was going for surgery and also AFib was pre has converted back to sinus rhythm. Continue aspirin If patient does develops recurrence of AFib will proceed with therapeutic dose anticoagulation if possible. (10) Hypotension: Code(s): I95.9 - Hypotension, unspecified
--- NOTE | 2023-12-25 10:30 | PCSTNOTE ---
Please refer to the Bedside Swallow Evaluation in the EMR. Please note, silent aspiration cannot be ruled out at bedside.
--- NOTE | 2023-12-25 11:22 | PCNFU ---
Nutrition Follow-Up Complete: Severe Protein Calorie Malnutrition as related to inadequate protein energy intake with increased protein energy needs in setting of chronic disease as evidenced by minimal oral intake for at least 1 month; significant weight loss of 7% (13 ibs) in 3 weeks; severe subcutaneous fat loss (orbital fat pads) and severe muscle wasting (temporalis, clavicle). goal: Meet estimated nutritional needs. Patient is progressing towards goal. We will continue current goal. Pt current nutrition is Pureed, Level 4. Last recorded weight is 78.2 kg, up from 75.8 kg on admit. Bowel Motility: No BM reported. Labs Reviewed:Mg 1.5,BUN 23, ,Cr 0.4,Glu 136, Alb 2.9 Meds Noted:Lovenox, Vancomycin Skin: See wound assessment for pressure injures Additional Notes: Patient had debridement on 12/23. Bedside swallow performed today, recommend diet order advancement of Pureed, Level 4 diet. Tube feedings have been discontined. Diet supplements of Ensure Enlive added TID for additional 350 kcal and 20 gm protein as well as protein modular of Leonard BID for wound healing. Agree with diet orders. Will monitor weight labs, skin, oral intake, meds every 3 days.
[2023-12-25 11:59] LABS: Glucose Point of Care 178 mg/dl (65-105)
--- NOTE | 2023-12-25 12:42 | PM.PNGS ---
Progress Note: A&P Assessment and Plan (1) Decubitus ulcer: Code(s): L89.90 - Pressure ulcer of unspecified site, unspecified stage Status: Acute (2) Sepsis: Code(s): A41.9 - Sepsis, unspecified organism Status: Acute (3) Acute renal failure: Code(s): N17.9 - Acute kidney failure, unspecified Status: Acute (4) Adult failure to thrive: Code(s): R62.7 - Adult failure to thrive Status: Acute (5) Mobility impaired: Code(s): Z74.09 - Other reduced mobility Status: Acute (6) Encephalopathy: Code(s): G93.40 - Encephalopathy, unspecified Status: Acute Plan Continue local wound care and broad spectrum antibiotics at this time. Possibility of repeat debridement if more necrotic tissue develops. Patient overall has very poor prognosis and will never heal from a wound this large. With aggressive wound care, best outlook would be to avoid infections in the wounds and limit recurrent sepsis. Subjective Subjective Date/Time Seen: 12/25/23 12:42 Interval history: Nurse reports still low grade fever at times. Doing a little better this AM. Off vasopressors. Wound care dressing changes performed this AM. Exam Back/Spine/Pelvis: Other: Sacral ulcer very large and down to fascia just above sacrum. Mostly viable tissue now, but still some necrotic surface to the wound bed. Skin: Other: Right groin wound with packing in place. Objective Data Vital Signs Vital Signs: Vital Signs - 24 hr 12/24/23 12:45 12/24/23 13:00 12/24/23 14:00 Temperature Pulse Rate 90 88 85 Respiratory Rate Blood Pressure 108/57 L 99/53 L Pulse Oximetry Oxygen Delivery Oxygen Flow Rate 12/24/23 14:00 12/24/23 13:15 12/24/23 13:30 Temperature 37.7 C H Pulse Rate 85 93 87 Respiratory Rate 14 Blood Pressure 101/57 L 114/60 108/54 L Pulse Oximetry 95 Oxygen Delivery Oxygen Flow Rate 12/24/23 13:45 12/24/23 14:00 12/24/23 14:15 Temperature Pulse Rate 90 85 91 Respiratory Rate Blood Pressure 110/58 L 101/57 L 109/59 L Pulse Oximetry Oxygen Delivery Oxygen Flow Rate 12/24/23 14:30 12/24/23 15:30 12/24/23 15:30 Temperature 37.7 C H Pulse Rate 91 97 Respiratory Rate 22 H Blood Pressure 108/56 L 124/88 Pulse Oximetry 92 92 Oxygen Delivery Nasal Cannula Oxygen Flow Rate 2 12/24/23 14:45 12/24/23 15:00 12/24/23 15:15 Temperature Pulse Rate 90 90 94 Respiratory Rate Blood Pressure 107/62 115/61 112/78 Pulse Oximetry Oxygen Delivery Oxygen Flow Rate 12/24/23 15:30 12/24/23 17:00 12/24/23 17:00 Temperature Pulse Rate 97 78 79 Respiratory Rate Blood Pressure 124/88 118/71 Pulse Oximetry Oxygen Delivery Oxygen Flow Rate 12/24/23 17:00 12/24/23 17:30 12/24/23 17:15 Temperature 36.7 C 36.6 C Pulse Rate 79 93 90 Respiratory Rate 18 18 Blood Pressure 118/71 128/78 97/66 L Pulse Oximetry 98 96 Oxygen Delivery Oxygen Flow Rate 12/24/23 17:30 12/24/23 17:45 12/24/23 18:00 Temperature 36.6 C 36.8 C Pulse Rate 92 96 104 H Respiratory Rate 18 18 Blood Pressure 128/78 133/90 Pulse Oximetry 97 96 Oxygen Delivery Oxygen Flow Rate 12/24/23 18:00 12/24/23 17:00 12/24/23 17:30 Temperature 37.1 C Pulse Rate 104 H Respiratory Rate 22 H Blood Pressure 141/79 H Pulse Oximetry 94 98 97 Oxygen Delivery Simple Face Mask Simple Face Mask Oxygen Flow Rate 8 4 12/24/23 18:00 12/24/23 20:00 12/24/23 21:00 Temperature Pulse Rate 102 H 102 H Respiratory Rate 22 H Blood Pressure 103/55 L Pulse Oximetry 93 93 Oxygen Delivery Nasal Cannula Nasal Cannula Oxygen Flow Rate 3 3 12/24/23 20:00 12/24/23 22:15 12/24/23 20:00 Temperature 38.1 C H Pulse Rate 111 H 106 H 111 H Respiratory Rate 14 14 Blood Pressure 103/55 L 95/52 L Pulse Oximetry 93 96 Oxygen Delivery Oxygen Flow Rate
[2023-12-25] MEDS: VANCOMYCIN 1,250 MG/NS 250 ML 1,250 MG/250 ML BAG 166.67 MG IVPB (13:21)
--- NOTE | 2023-12-25 17:23 | PM.IMPN ---
Progress Note: A&P Assessment and Plan (1) Sepsis: Code(s): A41.9 - Sepsis, unspecified organism Status: Acute Assessment and Plan: Patient appears to have sepsis secondary to decubitus wound which is likely infected and UTI. There is also component of cellulitis of right foot Urine culture is growing Pseudomonas Blood culture is growing Proteus and Gram-negative bacilli 12/23 repeat blood culture sent Patient received IV fluid bolus in the ER followed by additional bolus in the ICU and now off IV fluid Off vasopressors Continue vancomycin and meropenem General surgery consult for sacral decubitus wound and patient underwent surgical debridement on 12/23 Patient was also evaluated by Networking Specialist and local wound care was recommended CT does not show any free air and on the exam I do not see any crepitus or free air concerning of Jen's gangrene at this time Local Wound care as per Wound Care Service (2) Adult failure to thrive: Code(s): R62.7 - Adult failure to thrive Status: Acute Assessment and Plan: Patient confused at this time. NG tube inserted and patient is currently on tube feeds. Consult speech for swallow evaluation Dietitian consult (3) Acute renal failure: Code(s): N17.9 - Acute kidney failure, unspecified Status: Acute Assessment and Plan: Patient presented with acute renal failure likely 2nd dehydration which has progressed to ATN and along with possible rhabdomyolysis Patient received IV fluid bolus and IV fluids were continued. Patient is now producing urine Creatinine is improving and down to normal range Hyperkalemia was treated with insulin and dextrose along with calcium in the ER and improved 5.1 will start IV fluid bicarb and will also give 1 dose of Lokelma monitor and has resolved Monitor electrolytes creatinine and urine output CT scan shows bilateral hydroureteronephrosis but no obstructing stone Nephrology and Urology has been consulted (4) Decubitus ulcer: Code(s): L89.90 - Pressure ulcer of unspecified site, unspecified stage Status: Acute Assessment and Plan: See above (5) Rhabdomyolysis: Qualifiers: Encounter type: initial encounter Rhabdomyolysis type: traumatic Qualified Code(s): T79.6XXA - Traumatic ischemia of muscle, initial encounter Code(s): M62.82 - Rhabdomyolysis Status: Acute Assessment and Plan: See above (6) Dehydration: Code(s): E86.0 - Dehydration Status: Inactive Assessment and Plan: See above (7) Encephalopathy: Code(s): G93.40 - Encephalopathy, unspecified Status: Acute Assessment and Plan: Likely secondary to uremia and delirium Uremia has improved Head CT was negative for any acute change TSH was normal Monitor (8) Cellulitis: Code(s): L03.90 - Cellulitis, unspecified Status: Acute Assessment and Plan: See above (9) Atrial fibrillation with RVR: Code(s): I48.91 - Unspecified atrial fibrillation Status: Acute Assessment and Plan: Patient went to AFib with RVR yesterday likely sepsis. She was started on amiodarone infusion and Converted to sinus rhythm. Now off of amiodarone. Echocardiogram reviewed. Not on anti anticoagulation as patient was going for surgery and also AFib was pre has converted back to sinus rhythm. Continue aspirin If patient does develops recurrence of AFib will proceed with therapeutic dose anticoagulation if possible. (10) Hypotension: Code(s): I95.9 - Hypotension, unspecified Status: Acute Assessment and Plan: Patient will hypotension after she went to AFib with RVR Lactic acid level has normalized Hypotension has resolved and patient is now off of vasopressors and IV fluids (11) Electrolyte abnormality: Code(s): E87.8 - Other disorders of electrolyte and fluid balance, not elsewhere classified Status: Acute Assessment and Melly
[2023-12-25 17:53] LABS: Glucose Point of Care 100 mg/dl (65-105)
[2023-12-26] VITALS (15 sets, daily range): BP systolic 110–141; BP diastolic 60–129; PULSE 102–113; RESP 12–19; TEMP 36.4–37.9; O2SAT 96–100; BMI 10.0
[2023-12-26 00:21] LABS: Glucose Point of Care 105 mg/dl (65-105)
[2023-12-26] MEDS: CENTRAL LINE FLUSH 10 ML IV PUSH ×2 (06:16→14:40)
[2023-12-26 06:17] LABS: Glucose Point of Care 105 mg/dl (65-105)
[2023-12-26 06:23] LABS: Hematocrit 27.8 % (37.0-47.0); Hemoglobin 8.4 g/dL (12.0-15.0); Mean Corpuscular HGB Conc 30.2 g/dl (32-36); Mean Corpuscular Hemoglobin 25.5 pg (26-34); Mean Corpuscular Volume 84.2 fl (80-100); Mean Platelet Volume 10.8 fl (7.4-10.4); Platelet Count Result 222 k/mm3 (150-375); Red Cell Distribution Width 16.7 % (11.5-14.5); White Blood Count 20.2 K/mm3 (4.5-10.0)
[2023-12-26 06:36] LABS: Alanine Aminotransferase 19 U/L (6-35); Albumin Level 2.7 g/dL (3.5-5.1); Alkaline Phosphatase 58 U/L (38-126); Anion Gap 6 mmol/L (4-12); Aspartate Amino Transferase 30 U/L (14-36); Bilirubin,Total 1.1 mg/dL (0.2-1.3); Blood Urea Nitrogen 22 mg/dL (7-17); Calcium 7.7 mg/dL (8.4-10.2); Carbon Dioxide 30 mmol/L (22-30); Chloride 103 mmol/L (98-107); Creatine Kinase 43 U/L (30-135); Estimated CRCL calculation 129 ml/min; Estimated Glomerular Filt Rate > 60; Glucose 97 mg/dL (65-110); Magnesium 1.4 mg/dL (1.6-2.3); Phosphorus 1.5 mg/dL (2.5-4.5); Potassium 4.1 mmol/L (3.4-5.0); Sodium 139 mmol/L (137-145)
[2023-12-26 06:39] LABS: Vancomycin Trough 9.4 ug/mL (10.0-20.0)
--- NOTE | 2023-12-26 07:07 | PC.NURSE ---
This patient, Aidee Domínguez, was transferred to [facility] on 12/26/23 at 0645. Personal belongings sent with patient. Report given to Breann SCOTT. Appropriate documentation sent with patient.
[2023-12-26] MEDS: VANCOMYCIN 1,250 MG/NS 250 ML 1,250 MG/250 ML BAG 166.67 MG IVPB ×2 (09:13→18:24)
[2023-12-26] MEDS: ASPIRIN 325 MG TABLET PO (09:14)
[2023-12-26] MEDS: MEROPENEM 1 GM/NS 100 ML 1 GM/100 ML BAG IVPB ×3 (09:14→17:04)
[2023-12-26] MEDS: SOD HYPOCHLORITE 1/4 STRENGTH 473 ML 1 APPLIC TOPICAL ×2 (09:15→20:43)
[2023-12-26] MEDS: TOLNAFTATE 1% POWDER 45 GM BTL 1 APPLIC TOPICAL ×2 (09:15→20:43)
--- NOTE | 2023-12-26 09:26 | PM.PNGS ---
Progress Note: A&P Assessment and Plan (1) Decubitus ulcer: Qualifiers: Pressure injury location: sacral region Pressure injury stage: stage 4 Qualified Code(s): L89.154 - Pressure ulcer of sacral region, stage 4 Code(s): L89.90 - Pressure ulcer of unspecified site, unspecified stage Status: Acute (2) Sepsis: Code(s): A41.9 - Sepsis, unspecified organism Status: Acute (3) Acute renal failure: Code(s): N17.9 - Acute kidney failure, unspecified Status: Acute (4) Adult failure to thrive: Code(s): R62.7 - Adult failure to thrive Status: Acute (5) Mobility impaired: Code(s): Z74.09 - Other reduced mobility Status: Acute (6) Encephalopathy: Code(s): G93.40 - Encephalopathy, unspecified Status: Acute Plan Continue local wound care and broad spectrum antibiotics at this time. Possibility of repeat debridement if more necrotic tissue develops. Patient overall has very poor prognosis and will never heal from a wound this large. With aggressive wound care, best outlook would be to avoid infections in the wounds and limit recurrent sepsis. Discussed that continued stool around the wound will only increase the likelihood of infection. Diverting colostomy might be necessary to help control infection. Patient is agreeable to this plan if it will help prevent infections. I discussed with her that it would most likely be permanent given her overall health status and extensive nature of her wounds. Will try to plan diverting colostomy to be done sometime next week. Subjective Subjective Date/Time Seen: 12/26/23 09:26 Interval history: Patient now moved to IMU. Has Fecal tube in place. Liquid stool leaking around tube. Exam Back/Spine/Pelvis: Other: Sacral wound with some necrotic tissue overlying sacrum, but mostly healthy tissue everywhere else. Other wounds mostly unchanged. Objective Data Vital Signs Vital Signs: Vital Signs - 24 hr 12/25/23 10:00 12/25/23 10:00 12/25/23 12:00 Temperature 37.4 C Pulse Rate 102 H 102 H Respiratory Rate 15 15 Blood Pressure 109/79 Pulse Oximetry 96 94 Oxygen Delivery Room Air Oxygen Flow Rate 12/25/23 12:00 12/25/23 12:00 12/25/23 14:00 Temperature 37.2 C Pulse Rate 97 108 H 106 H Respiratory Rate 15 16 Blood Pressure 116/68 102/61 Pulse Oximetry 94 92 Oxygen Delivery Oxygen Flow Rate 12/25/23 14:00 12/25/23 16:00 12/25/23 16:00 Temperature 37.4 C Pulse Rate 103 H 108 H Respiratory Rate 13 19 Blood Pressure 114/59 L Pulse Oximetry 93 95 Oxygen Delivery Nasal Cannula Oxygen Flow Rate 2 12/25/23 18:00 12/25/23 16:00 12/25/23 18:00 Temperature 37.6 C H Pulse Rate 110 H 110 H 108 H Respiratory Rate 19 Blood Pressure 133/99 H Pulse Oximetry 96 Oxygen Delivery Oxygen Flow Rate 12/25/23 20:00 12/25/23 20:00 12/25/23 20:00 Temperature 37.6 C Pulse Rate 110 H 111 H Respiratory Rate 20 Blood Pressure 128/70 Pulse Oximetry 95 95 Oxygen Delivery Nasal Cannula Oxygen Flow Rate 2 12/25/23 22:00 12/26/23 00:00 12/26/23 00:00 Temperature 37.8 C H Pulse Rate 116 H 106 H Respiratory Rate 14 Blood Pressure 119/82 Pulse Oximetry 96 96 Oxygen Delivery Nasal Cannula Oxygen Flow Rate 2 12/26/23 00:00 12/26/23 02:00 12/26/23 04:00 Temperature 37.9 C H Pulse Rate 103 H 104 H 102 H Respiratory Rate 17 Blood Pressure 141/129 H Pulse Oximetry 96 Oxygen Delivery Oxygen Flow Rate 12/26/23 04:24 12/26/23 04:00 12/26/23 04:00 Temperature Pulse Rate 106 H Respiratory Rate Blood Pressure 110/77 Pulse Oximetry 96 Oxygen Delivery Nasal Cannula Oxygen Flow Rate 2 12/26/23 06:00 12/26/23 07:52 Temperature 37.1 C Pulse Rate 107 H 110 H Respiratory Rate 18 Blood Pressure 127/75 Pulse Oximetry 98 Oxygen Delivery Oxygen Flow Rate Intake/Outp
[2023-12-26] MEDS: ENOXAPARIN 40 MG/0.4 ML SYRINGE SUB-Q (09:30)
--- NOTE | 2023-12-26 10:26 | P.PNIM_ITS ---
Progress Note: A&P Assessment and Plan (1) Sepsis: Code(s): A41.9 - Sepsis, unspecified organism Status: Acute Assessment and Plan: Patient appears to have sepsis secondary to decubitus wound which is likely in fected and UTI. There is also component of cellulitis of right foot Urine culture is growing Pseudomonas Blood culture is growing Proteus and Gram-negative bacilli 12/23 repeat blood culture sent Patient received IV fluid bolus in the ER followed by additional bolus in the ICU and now off IV fluid Off vasopressors Continue vancomycin and meropenem General surgery consult for sacral decubitus wound and patient underwent surgical debridement on 12/23 Patient was also evaluated by Sulfide Head Operator and local wound care was recommended CT does not show any free air and on the exam I do not see any crepitus or free air concerning of Jen's gangrene at this time Local Wound care as per Wound Care Service (2) Adult failure to thrive: Code(s): R62.7 - Adult failure to thrive Status: Acute Assessment and Plan: Patient confused at this time. NG tube inserted and patient is currently on tube feeds. Consult speech for swallow evaluation Dietitian consult (3) Acute renal failure: Code(s): N17.9 - Acute kidney failure, unspecified Status: Acute Assessment and Plan: Patient presented with acute renal failure likely 2nd dehydration which has progressed to ATN and along with possible rhabdomyolysis Patient received IV fluid bolus and IV fluids were continued. Patient is now producing urine Creatinine is improving and down to normal range Hyperkalemia was treated with insulin and dextrose along with calcium in the ER and improved 5.1 will start IV fluid bicarb and will also give 1 dose of Lokelma monitor and has resolved Monitor electrolytes creatinine and urine output CT scan shows bilateral hydroureteronephrosis but no obstructing stone Nephrology and Urology has been consulted (4) Decubitus ulcer: Qualifiers: Pressure injury location: sacral region Pressure injury stage: stage 4 Qualified Code(s): L89.154 - Pressure ulcer of sacral region, stage 4 Code(s): L89.90 - Pressure ulcer of unspecified site, unspecified stage Status: Acute Assessment and Plan: -Continue local wound care and broad spectrum antibiotics at this time. Possibility of repeat debridement if more necrotic tissue develops. Patient overall has very poor prognosis and will never heal from a wound this large. With aggressive wound care, best outlook would be to avoid infections in the wounds and limit recurrent sepsis. -Discussed that continued stool around the wound will only increase the likelihood of infection. Diverting colostomy might be necessary to help control infection. Patient is agreeable to this plan if it will help prevent infections. I discussed with her that it would most likely be permanent given her overall health status and extensive nature of her wounds. Will try to plan diverting colostomy to be done sometime next week. (5) Rhabdomyolysis: Qualifiers: Encounter type: initial encounter Rhabdomyolysis type: traumatic Qualified Code(s): T79.6XXA - Traumatic ischemia of muscle, initial encounter Code(s): M62.82 - Rhabdomyolysis Status: Acute Assessment and Plan: See above (6) Dehydration: Code(s): E86.0 - Dehydration Status: Inactive Assessment and Plan: See above (7) Encephalopathy: Code(s): G93.40 - Encephalopathy, unspecified Status: Acute Assessment and Plan: Likely secondary to ure
[2023-12-26 12:20] LABS: Glucose Point of Care 102 mg/dl (65-105)
[2023-12-26] MEDS: MAGNESIUM SULF 2 GM/WATER 50ML 2 GM/50 ML BAG IVPB (14:40)
[2023-12-26 15:41] LABS: Glucose Point of Care 120 mg/dl (65-105)
[2023-12-26 18:00] LABS: Glucose Point of Care 111 mg/dl (65-105)
[2023-12-26] MEDS: MORPHINE SULFATE (*CRX) 2 MG/ML INJ IV PUSH (22:14)
[2023-12-27] VITALS (18 sets, daily range): BP systolic 93–146; BP diastolic 60–72; PULSE 95–118; RESP 16–24; TEMP 36.3–37.2; O2SAT 94–98
[2023-12-27] MEDS: MEROPENEM 1 GM/NS 100 ML 1 GM/100 ML BAG IVPB ×3 (00:13→17:02)
[2023-12-27 00:41] LABS: Glucose Point of Care 96 mg/dl (65-105)
[2023-12-27 04:47] LABS: Hematocrit 24.6 % (37.0-47.0); Hemoglobin 7.6 g/dL (12.0-15.0); Mean Corpuscular HGB Conc 30.9 g/dl (32-36); Mean Corpuscular Hemoglobin 25.4 pg (26-34); Mean Corpuscular Volume 82.3 fl (80-100); Mean Platelet Volume 10.9 fl (7.4-10.4); Platelet Count Result 239 k/mm3 (150-375); Red Blood Count 2.99 M/mm3 (4.2-5.4); Red Cell Distribution Width 16.7 % (11.5-14.5); White Blood Count 16.5 K/mm3 (4.5-10.0)
[2023-12-27 04:58] LABS: Alanine Aminotransferase 24 U/L (6-35); Albumin Level 2.5 g/dL (3.5-5.1); Alkaline Phosphatase 57 U/L (38-126); Anion Gap 5 mmol/L (4-12); Aspartate Amino Transferase 41 U/L (14-36); Blood Urea Nitrogen 18 mg/dL (7-17); Calcium 7.4 mg/dL (8.4-10.2); Carbon Dioxide 30 mmol/L (22-30); Chloride 100 mmol/L (98-107); Creatine Kinase 32 U/L (30-135); Estimated CRCL calculation 134 ml/min; Estimated Glomerular Filt Rate > 60; Glucose 83 mg/dL (65-110); Magnesium 1.5 mg/dL (1.6-2.3); Phosphorus 1.3 mg/dL (2.5-4.5); Potassium 3.7 mmol/L (3.4-5.0); Sodium 135 mmol/L (137-145)
[2023-12-27 06:03] LABS: Glucose Point of Care 84 mg/dl (65-105)
[2023-12-27] MEDS: VANCOMYCIN 1,250 MG/NS 250 ML 1,250 MG/250 ML BAG 166.67 MG IVPB (06:10)
--- NOTE | 2023-12-27 08:28 | P.PNCROSS_ITS ---
Event Note Event Note Event Note: Creatinine is normal. Dr. Rasheed checked this patient out as follow from samuel santos . He will resume this tomorrow.
--- NOTE | 2023-12-27 08:28 | PM.EVENT ---
Event Note Event Note Event Note: Creatinine is normal. Dr. Rasheed checked this patient out as follow from a distance . He will resume this tomorrow.
[2023-12-27] MEDS: TOLNAFTATE 1% POWDER 45 GM BTL 1 APPLIC TOPICAL ×2 (09:14→20:30)
[2023-12-27] MEDS: SOD HYPOCHLORITE 1/4 STRENGTH 473 ML 1 APPLIC TOPICAL ×2 (09:15→20:30)
[2023-12-27] MEDS: ASPIRIN 325 MG TABLET PO (09:16)
[2023-12-27] MEDS: ENOXAPARIN 40 MG/0.4 ML SYRINGE SUB-Q (09:16)
--- NOTE | 2023-12-27 09:56 | PM.IMPN ---
Progress Note: A&P Assessment and Plan (1) Sepsis: Code(s): A41.9 - Sepsis, unspecified organism Status: Acute Assessment and Plan: Patient appears to have sepsis secondary to decubitus wound which is likely infected and UTI. There is also component of cellulitis of right foot Urine culture is growing Pseudomonas Blood culture is growing Proteus and Gram-negative bacilli 12/23 repeat blood culture sent Patient received IV fluid bolus in the ER followed by additional bolus in the ICU and now off IV fluid Off vasopressors Continue vancomycin and meropenem General surgery consult for sacral decubitus wound and patient underwent surgical debridement on 12/23 Patient was also evaluated by Health Care Law Specialist and local wound care was recommended CT does not show any free air and on the exam I do not see any crepitus or free air concerning of Jen's gangrene at this time Local Wound care as per Wound Care Service (2) Adult failure to thrive: Code(s): R62.7 - Adult failure to thrive Status: Acute Assessment and Plan: Patient confused at this time. NG tube inserted and patient is currently on tube feeds. Consult speech for swallow evaluation Dietitian consult (3) Acute renal failure: Code(s): N17.9 - Acute kidney failure, unspecified Status: Acute Assessment and Plan: Patient presented with acute renal failure likely 2nd dehydration which has progressed to ATN and along with possible rhabdomyolysis Patient received IV fluid bolus and IV fluids were continued. Patient is now producing urine Creatinine is improving and down to normal range Hyperkalemia was treated with insulin and dextrose along with calcium in the ER and improved 5.1 will start IV fluid bicarb and will also give 1 dose of Lokelma monitor and has resolved Monitor electrolytes creatinine and urine output CT scan shows bilateral hydroureteronephrosis but no obstructing stone Nephrology and Urology has been consulted (4) Decubitus ulcer: Qualifiers: Pressure injury location: sacral region Pressure injury stage: stage 4 Qualified Code(s): L89.154 - Pressure ulcer of sacral region, stage 4 Code(s): L89.90 - Pressure ulcer of unspecified site, unspecified stage Status: Acute Assessment and Plan: -Continue local wound care and broad spectrum antibiotics at this time. Possibility of repeat debridement if more necrotic tissue develops. Patient overall has very poor prognosis and will never heal from a wound this large. With aggressive wound care, best outlook would be to avoid infections in the wounds and limit recurrent sepsis. -Discussed that continued stool around the wound will only increase the likelihood of infection. Diverting colostomy might be necessary to help control infection. Patient is agreeable to this plan if it will help prevent infections. I discussed with her that it would most likely be permanent given her overall health status and extensive nature of her wounds. Will try to plan diverting colostomy to be done sometime next week. (5) Rhabdomyolysis: Qualifiers: Encounter type: initial encounter Rhabdomyolysis type: traumatic Qualified Code(s): T79.6XXA - Traumatic ischemia of muscle, initial encounter Code(s): M62.82 - Rhabdomyolysis Status: Acute Assessment and Plan: See above (6) Dehydration: Code(s): E86.0 - Dehydration Status: Inactive Assessment and Plan: See above (7) Encephalopathy: Code(s): G93.40 - Encephalopathy, unspecified Status: Acute Assessment and Plan: Likely secondary to uremia and delirium Uremia has improved Head CT was negative for any acute change TSH was normal Monitor (8) Cellulitis: Code(s): L03.90 - Cellulitis, unspecified Status: Acute Assessment and Plan: See above (9) Atrial fibrillation with RVR: Code(s): I48.91 - Unspecified atrial fibrillation S
[2023-12-27] MEDS: MAGNESIUM SULF 2 GM/WATER 50ML 2 GM/50 ML BAG IVPB (11:30)
[2023-12-27 13:32] LABS: Glucose Point of Care 96 mg/dl (65-105)
--- NOTE | 2023-12-27 14:09 | PM.PNGS ---
Progress Note: A&P Assessment and Plan (1) Decubitus ulcer: Qualifiers: Pressure injury location: sacral region Pressure injury stage: stage 4 Qualified Code(s): L89.154 - Pressure ulcer of sacral region, stage 4 Code(s): L89.90 - Pressure ulcer of unspecified site, unspecified stage Status: Acute (2) Sepsis: Code(s): A41.9 - Sepsis, unspecified organism Status: Acute (3) Acute renal failure: Code(s): N17.9 - Acute kidney failure, unspecified Status: Acute (4) Adult failure to thrive: Code(s): R62.7 - Adult failure to thrive Status: Acute (5) Mobility impaired: Code(s): Z74.09 - Other reduced mobility Status: Acute (6) Encephalopathy: Code(s): G93.40 - Encephalopathy, unspecified Status: Acute Plan Continue local wound care and broad spectrum antibiotics at this time. Possibility of repeat debridement if more necrotic tissue develops. Patient overall has very poor prognosis and will never heal from a wound this large. With aggressive wound care, best outlook would be to avoid infections in the wounds and limit recurrent sepsis. Patient still thinking about agreeing to colostomy placement. Will try to have answer from patient tomorrow and plan for this to be done Thursday or Thursday depending on OR availability. Subjective Subjective Date/Time Seen: 12/27/23 14:09 Interval history: No significant changes. Patient much more alert and aware the past couple days. Exam Back/Spine/Pelvis: Other: Sacral wound with some necrotic tissue overlying sacrum, but mostly healthy tissue everywhere else. Other wounds mostly unchanged. Objective Data Vital Signs Vital Signs: Vital Signs - 24 hr 12/26/23 15:43 12/26/23 16:00 12/26/23 18:00 Temperature 98.3 F Pulse Rate 107 H 107 H 107 H Respiratory Rate 12 Blood Pressure 110/68 Pulse Oximetry 97 Oxygen Delivery Fraction of Inspired Oxygen 12/26/23 20:00 12/26/23 20:00 12/26/23 22:00 Temperature 97.6 F Pulse Rate 109 H 107 H 105 H Respiratory Rate 19 Blood Pressure 125/60 Pulse Oximetry 97 Oxygen Delivery Fraction of Inspired Oxygen 12/27/23 00:00 12/27/23 00:00 12/27/23 02:00 Temperature 97.7 F Pulse Rate 118 H 111 H 109 H Respiratory Rate 18 Blood Pressure 121/60 Pulse Oximetry 98 Oxygen Delivery Fraction of Inspired Oxygen 12/27/23 04:00 12/27/23 04:00 12/27/23 06:00 Temperature 98.4 F Pulse Rate 99 109 H 101 H Respiratory Rate 24 H Blood Pressure 93/68 L Pulse Oximetry 97 Oxygen Delivery Fraction of Inspired Oxygen 12/27/23 08:00 12/27/23 08:30 12/27/23 08:00 Temperature 97.6 F Pulse Rate 100 101 H Respiratory Rate 18 Blood Pressure 139/71 Pulse Oximetry 96 94 Oxygen Delivery Room Air Fraction of Inspired Oxygen 21 12/27/23 10:00 12/27/23 11:41 12/27/23 12:00 Temperature 97.3 F L Pulse Rate 98 96 95 Respiratory Rate 20 Blood Pressure 123/72 Pulse Oximetry 97 Oxygen Delivery Fraction of Inspired Oxygen Intake/Output Intake/Output: Intake & Output 12/24/23 12/25/23 12/26/23 12/27/23 23:59 23:59 23:59 23:59 Intake Total 2096.8 1955 1710 300 Output Total 1850 1150 1485 1400 Balance 246.8 805 225 -1100 Meds/Results Medications: Active Medications Generic Name Dose Route Start Last Admin Trade Name Freq PRN Reason Stop Dose Admin Acetaminophen 650 mg 12/23/23 19:29 12/25/23 17:48 Acetaminophen Elixir 325 Mg/10.15 Ml Udc PO 650 mg Q4H PRN Administration Mild Pain (1-3) or Fever Aspirin 325 mg 12/25/23 08:00 12/27/23 09:16 Aspirin 325 Mg Tablet PO 325 mg DAILY@0800 LILA Administration Dextrose 12.5 gm 12/22/23 11:21 Dextrose 50% 25 Gm/50 Ml Syringe IV PUSH PRN PRN Hypoglycemia Protocol Enoxaparin Sodium 40 mg 12/23/23 09:00 12/27/23 09:16 Enoxaparin 40 Mg/0.4 Ml Syringe HELLER
--- NOTE | 2023-12-27 16:17 | PC.NURSE ---
Reviewed and Approved [facility] SN Mendoza Charting
[2023-12-27 16:36] LABS: Glucose Point of Care 94 mg/dl (65-105)
[2023-12-27 18:39] LABS: Vancomycin Trough 14.6 ug/mL (10.0-20.0)
[2023-12-27] MEDS: VANCOMYCIN 1,500 MG/NS 500 ML 1,500 MG/500 ML BAG 250 MG IVPB (18:55)
[2023-12-27] MEDS: ACETAMINOPHEN ELIXIR 325 MG/10.15 ML UDC 650 MG PO (20:29)
[2023-12-27] MEDS: MORPHINE SULFATE (*CRX) 2 MG/ML INJ IV PUSH (20:30)
[2023-12-27 22:05] LABS: Glucose Point of Care 108 mg/dl (65-105)
[2023-12-28] VITALS (16 sets, daily range): BP systolic 116–152; BP diastolic 55–88; PULSE 87–108; RESP 20–22; TEMP 36.2–37.2; O2SAT 93–100
[2023-12-28] MEDS: MEROPENEM 1 GM/NS 100 ML 1 GM/100 ML BAG IVPB ×3 (01:28→17:45)
[2023-12-28 05:11] LABS: Hematocrit 27.5 % (37.0-47.0); Hemoglobin 8.3 g/dL (12.0-15.0); Mean Corpuscular HGB Conc 30.2 g/dl (32-36); Mean Corpuscular Hemoglobin 25.1 pg (26-34); Mean Corpuscular Volume 83.1 fl (80-100); Mean Platelet Volume 10.4 fl (7.4-10.4); Platelet Count Result 295 k/mm3 (150-375); Red Blood Count 3.31 M/mm3 (4.2-5.4); Red Cell Distribution Width 16.9 % (11.5-14.5); White Blood Count 18.6 K/mm3 (4.5-10.0)
[2023-12-28 05:29] LABS: Albumin Level 2.6 g/dL (3.5-5.1); Chloride 98 mmol/L (98-107); Potassium 3.8 mmol/L (3.4-5.0); Sodium 134 mmol/L (137-145)
[2023-12-28 05:51] LABS: Alanine Aminotransferase 47 U/L (6-35); Alkaline Phosphatase 65 U/L (38-126); Anion Gap 6 mmol/L (4-12); Aspartate Amino Transferase 93 U/L (14-36); Bilirubin,Total 0.9 mg/dL (0.2-1.3); Blood Urea Nitrogen 13 mg/dL (7-17); Calcium 7.5 mg/dL (8.4-10.2); Carbon Dioxide 30 mmol/L (22-30); Estimated CRCL calculation 130 ml/min; Estimated Glomerular Filt Rate > 60; Glucose 86 mg/dL (65-110)
[2023-12-28 07:06] LABS: Glucose Point of Care 82 mg/dl (65-105)
--- NOTE | 2023-12-28 09:00 | PCPTNOTE ---
The patient treatment was not able to be completed at this time due to patient receiving new IV. Will plan to continue treatment per plan of care.
[2023-12-28] MEDS: SOD HYPOCHLORITE 1/4 STRENGTH 473 ML 1 APPLIC TOPICAL ×2 (09:30→22:47)
[2023-12-28] MEDS: TOLNAFTATE 1% POWDER 45 GM BTL 1 APPLIC TOPICAL ×2 (09:30→22:47)
[2023-12-28] MEDS: VANCOMYCIN 1,500 MG/NS 500 ML 1,500 MG/500 ML BAG 250 MG IVPB (09:45)
--- NOTE | 2023-12-28 10:36 | PM.PNGS ---
Progress Note: A&P Assessment and Plan (1) Decubitus ulcer: Qualifiers: Pressure injury location: sacral region Pressure injury stage: stage 4 Qualified Code(s): L89.154 - Pressure ulcer of sacral region, stage 4 Code(s): L89.90 - Pressure ulcer of unspecified site, unspecified stage Status: Acute Assessment and Plan: Continue local wound care and broad spectrum antibiotics at this time. Patient overall has very poor prognosis and will never heal from a wound this large. With aggressive wound care, best outlook would be to avoid infections in the wounds and limit recurrent sepsis. Patient wishes to consider Hospice. Will call her daughter today to discuss plans with the patient in terms of her wounds. Colostomy is still a consideration if she does not want to proceed with Hospice. (2) Sepsis: Code(s): A41.9 - Sepsis, unspecified organism Status: Acute (3) Acute renal failure: Code(s): N17.9 - Acute kidney failure, unspecified Status: Acute (4) Adult failure to thrive: Code(s): R62.7 - Adult failure to thrive Status: Acute (5) Mobility impaired: Code(s): Z74.09 - Other reduced mobility Status: Acute (6) Encephalopathy: Code(s): G93.40 - Encephalopathy, unspecified Status: Acute Plan I have discussed the patient's case and plan of care with Dr. Reich. Subjective Subjective Date/Time Seen: 12/28/23 10:36 Interval history: Patient seen and dressing changed with nurse at the bedside. Patient is asking for me to call her daughter and discuss current plan and treatment with her daughter. Patient also expressed wishes to consider Hospice at this time. Exam Const: General: no acute distress and ill appearing Skin: Other: Large sacral decubitus ulcer extending to bone with the fascia over the sacrum exposed and a small amount of loose necrotic escobedo tissue in that area. Majority of the wound is pink with no significant areas of necrotic tissue or purulent drainage. Left ischial wound dry and appears stable. No purulent drainage, thin layer of a forde eschar appears to be forming on the wound with no crepitus. Silver gel applied. Objective Data Vital Signs Vital Signs: Vital Signs - 24 hr 12/27/23 11:41 12/27/23 12:00 12/27/23 14:00 Temperature 97.3 F L Pulse Rate 96 95 98 Respiratory Rate 20 Blood Pressure 123/72 Pulse Oximetry 97 Oxygen Delivery Oxygen Flow Rate Fraction of Inspired Oxygen 12/27/23 15:48 12/27/23 16:00 12/27/23 18:00 Temperature 97.9 F Pulse Rate 102 H 102 H 118 H Respiratory Rate 16 Blood Pressure 130/69 Pulse Oximetry 97 Oxygen Delivery Oxygen Flow Rate Fraction of Inspired Oxygen 12/27/23 19:40 12/27/23 20:00 12/27/23 22:00 Temperature 98.2 F Pulse Rate 105 H 110 H 101 H Respiratory Rate 20 Blood Pressure 146/72 H Pulse Oximetry 96 Oxygen Delivery Oxygen Flow Rate Fraction of Inspired Oxygen 12/27/23 23:12 12/27/23 23:30 12/28/23 00:00 Temperature 99.0 F Pulse Rate 114 H 99 Respiratory Rate 20 Blood Pressure 127/64 Pulse Oximetry 97 96 Oxygen Delivery Nasal Cannula Oxygen Flow Rate 2 Fraction of Inspired Oxygen 12/28/23 02:00 12/28/23 03:24 12/28/23 04:00 Temperature 98.9 F Pulse Rate 89 89 Respiratory Rate 20 Blood Pressure 116/55 L Pulse Oximetry 95 95 Oxygen Delivery Nasal Cannula Oxygen Flow Rate 2 Fraction of Inspired Oxygen 12/28/23 04:00 12/28/23 06:00 12/28/23 07:00 Temperature 98.9 F Pulse Rate 87 87 87 Respiratory Rate 20 Blood Pressure 128/70 Pulse Oximetry 94 Oxygen Delivery Oxygen Flow Rate Fraction of Inspired Oxygen 12/28/23 08:25 Temperature Pulse Rate Respiratory Rate Blood Pressure Pulse Oximetry 95 Oxygen Delivery Nasal Cannula Oxygen Flow Rate 2 Fraction of Inspired Oxygen 28 Intake/Output Intake/Output: Intake
[2023-12-28 10:47] LABS: Glucose Point of Care 81 mg/dl (65-105)
--- NOTE | 2023-12-28 12:20 | PM.IMPN ---
Progress Note: A&P Assessment and Plan (1) Sepsis: Code(s): A41.9 - Sepsis, unspecified organism Status: Acute Assessment and Plan: Patient appears to have sepsis secondary to decubitus wound which is likely infected and UTI. There is also component of cellulitis of right foot Urine culture is growing Pseudomonas Blood culture is growing Proteus and Gram-negative bacilli 12/23 repeat blood culture sent Patient received IV fluid bolus in the ER followed by additional bolus in the ICU and now off IV fluid Off vasopressors Continue meropenem DC vancomycin General surgery consult for sacral decubitus wound and patient underwent surgical debridement on 12/23 Patient was also evaluated by Sanitary Aide and local wound care was recommended CT does not show any free air and on the exam I do not see any crepitus or free air concerning of Jen's gangrene at this time Local Wound care as per Wound Care Service (2) Adult failure to thrive: Code(s): R62.7 - Adult failure to thrive Status: Acute Assessment and Plan: Consult speech for swallow evaluation Dietitian consult (3) Acute renal failure: Code(s): N17.9 - Acute kidney failure, unspecified Status: Acute Assessment and Plan: Patient presented with acute renal failure likely 2nd dehydration which has progressed to ATN and along with possible rhabdomyolysis Patient received IV fluid bolus and IV fluids were continued. Patient is now producing urine Creatinine is improving and down to normal range Hyperkalemia was treated with insulin and dextrose along with calcium in the ER and improved 5.1 will start IV fluid bicarb and will also give 1 dose of Lokelma monitor and has resolved Monitor electrolytes creatinine and urine output CT scan shows bilateral hydroureteronephrosis but no obstructing stone Nephrology and Urology has been consulted (4) Decubitus ulcer: Qualifiers: Pressure injury location: sacral region Pressure injury stage: stage 4 Qualified Code(s): L89.154 - Pressure ulcer of sacral region, stage 4 Code(s): L89.90 - Pressure ulcer of unspecified site, unspecified stage Status: Acute Assessment and Plan: -Continue local wound care and broad spectrum antibiotics at this time. Possibility of repeat debridement if more necrotic tissue develops. Patient overall has very poor prognosis and will never heal from a wound this large. With aggressive wound care, best outlook would be to avoid infections in the wounds and limit recurrent sepsis. -Discussed that continued stool around the wound will only increase the likelihood of infection. Diverting colostomy might be necessary to help control infection. Patient wants to discuss with her daughter to this plan if it will help prevent infections. I believe patients wants to be in comfort measures and she wanted to discuss with her daughter and officially document it. (5) Rhabdomyolysis: Qualifiers: Encounter type: initial encounter Rhabdomyolysis type: traumatic Qualified Code(s): T79.6XXA - Traumatic ischemia of muscle, initial encounter Code(s): M62.82 - Rhabdomyolysis Status: Acute Assessment and Plan: See above (6) Dehydration: Code(s): E86.0 - Dehydration Status: Inactive Assessment and Plan: See above (7) Encephalopathy: Code(s): G93.40 - Encephalopathy, unspecified Status: Acute Assessment and Plan: Likely secondary to uremia and delirium Uremia has improved Head CT was negative for any acute change TSH was normal Monitor (8) Cellulitis: Code(s): L03.90 - Cellulitis, unspecified Status: Acute Assessment and Plan: See above (9) Atrial fibrillation with RVR: Code(s): I48.91 - Unspecified atrial fibrillation Status: Acute Assessment and Plan: Patient went to AFib with RVR yesterday likely sepsis. She was started on amiodarone infusion and
[2023-12-28 16:19] LABS: Glucose Point of Care 110 mg/dl (65-105)
[2023-12-28] MEDS: ASPIRIN 325 MG TABLET PO (17:13)
[2023-12-28] MEDS: ENOXAPARIN 40 MG/0.4 ML SYRINGE SUB-Q (17:14)
[2023-12-28] MEDS: MORPHINE SULFATE (*CRX) 2 MG/ML INJ IV PUSH ×2 (17:30→22:38)
[2023-12-28 19:50] LABS: Toxigenic C. Diff NEGATIVE (NEGATIVE)
[2023-12-28 20:44] LABS: Glucose Point of Care 110 mg/dl (65-105)
[2023-12-28] MEDS: CENTRAL LINE FLUSH 10 ML IV PUSH (22:47)
[2023-12-28] MEDS: HYDROcodone/acetaminophen (*CRX) 5-325 MG TABLET 1 TAB PO (23:29)
[2023-12-29] VITALS (21 sets, daily range): BP systolic 107–127; BP diastolic 5–64; PULSE 92–108; RESP 18–24; TEMP 36.4–37.8; O2SAT 94–100
[2023-12-29] MEDS: MEROPENEM 1 GM/NS 100 ML 1 GM/100 ML BAG IVPB ×3 (00:13→18:28)
[2023-12-29 05:14] LABS: Hematocrit 25.9 % (37.0-47.0); Hemoglobin 7.8 g/dL (12.0-15.0); Mean Corpuscular HGB Conc 30.1 g/dl (32-36); Mean Corpuscular Hemoglobin 25.2 pg (26-34); Mean Corpuscular Volume 83.5 fl (80-100); Mean Platelet Volume 10.4 fl (7.4-10.4); Platelet Count Result 311 k/mm3 (150-375); Red Cell Distribution Width 17.2 % (11.5-14.5); White Blood Count 16.8 K/mm3 (4.5-10.0)
[2023-12-29 05:29] LABS: Alanine Aminotransferase 33 U/L (6-35); Albumin Level 2.4 g/dL (3.5-5.1); Alkaline Phosphatase 52 U/L (38-126); Anion Gap 4 mmol/L (4-12); Aspartate Amino Transferase 40 U/L (14-36); Bilirubin,Total 0.7 mg/dL (0.2-1.3); Blood Urea Nitrogen 14 mg/dL (7-17); Calcium 7.5 mg/dL (8.4-10.2); Carbon Dioxide 31 mmol/L (22-30); Chloride 99 mmol/L (98-107); Estimated CRCL calculation 102 ml/min; Estimated Glomerular Filt Rate > 60; Glucose 111 mg/dL (65-110); Potassium 3.9 mmol/L (3.4-5.0); Sodium 134 mmol/L (137-145)
[2023-12-29 08:48] LABS: Glucose Point of Care 97 mg/dl (65-105)
[2023-12-29] MEDS: ASPIRIN 325 MG TABLET PO (09:05)
[2023-12-29] MEDS: ENOXAPARIN 40 MG/0.4 ML SYRINGE SUB-Q (09:05)
[2023-12-29] MEDS: TOLNAFTATE 1% POWDER 45 GM BTL 1 APPLIC TOPICAL ×2 (09:06→22:00)
[2023-12-29 11:33] LABS: Glucose Point of Care 94 mg/dl (65-105)
--- NOTE | 2023-12-29 12:41 | PCNFU ---
Nutrition Follow-Up Complete: Severe Protein Calorie Malnutrition as related to inadequate protein energy intake with increased protein energy needs in setting of chronic disease as evidenced by minimal oral intake for at least 1 month; significant weight loss of 7% (13 ibs) in 3 weeks; severe subcutaneous fat loss (orbital fat pads) and severe muscle wasting (temporalis, clavicle). Goal:Meet estimated nutritional needs. Pt slowly progressing towards goal. Continue with same goal Pt current nutrition is Minced and Moist level 5, Ensure enlive TID, MEGHANA TID. Nutrition recommendation: continue with current plan of care Last recorded weight is 81 kg. Bowel Motility: +BM 12/26 Labs Reviewed: Hgb:7.8, HCT:25.9, NA:134, Cr:0.4 Meds Noted: lovenox Skin: unstagabel to sacrum, heel Additional Notes: Pt diet upgraded to minced and moist level 5, intake 25-50% of meals, supplements in place TID for additional calories and protein for wound healing. Encourage po intake. Will monitor weight labs, skin, oral intake, meds every 5 days.
[2023-12-29] MEDS: SOD HYPOCHLORITE 1/4 STRENGTH 473 ML 1 APPLIC TOPICAL ×2 (14:00→22:00)
--- NOTE | 2023-12-29 14:12 | PCOTNOTE ---
Attempted to see pt for OT treatment this afternoon. At 1st attempt, pt and family were with the doctor discussing upcoming procedure. At 2nd attempt pt is with wound care.
--- NOTE | 2023-12-29 14:47 | PM.PNGS ---
Progress Note: A&P Assessment and Plan (1) Decubitus ulcer: Qualifiers: Pressure injury location: sacral region Pressure injury stage: stage 4 Qualified Code(s): L89.154 - Pressure ulcer of sacral region, stage 4 Code(s): L89.90 - Pressure ulcer of unspecified site, unspecified stage Status: Acute Assessment and Plan: Continue local wound care and broad spectrum antibiotics at this time. Patient overall has very poor prognosis and will never heal from a wound this large. With aggressive wound care, best outlook would be to avoid infections in the wounds and limit recurrent sepsis. I have discussed long-term treatment of the wounds with the patient. Her daughter is also at the bedside for this discussion. She is currently bed ridden and not strong enough to be ambulatory. She will need continued aggressive wound care treatment to avoid recurrent infections or worsening wounds. Even with this, sacral wound is probably too large to heal. Patient wants to proceed with colostomy placement to limit risk of wound infection. I discussed proceeding with open diverting colostomy placement under general anesthesia. Patient is agreeable to proceeding. Will plan for surgery tomorrow. Will not perform bowel prep due to risk of worsening contamination of the sacral wounds. Patient will be NPO after midnight in plans for surgery tomorrow. (2) Sepsis: Code(s): A41.9 - Sepsis, unspecified organism Status: Acute (3) Acute renal failure: Code(s): N17.9 - Acute kidney failure, unspecified Status: Acute (4) Adult failure to thrive: Code(s): R62.7 - Adult failure to thrive Status: Acute (5) Mobility impaired: Code(s): Z74.09 - Other reduced mobility Status: Acute (6) Encephalopathy: Code(s): G93.40 - Encephalopathy, unspecified Status: Acute Subjective Subjective Date/Time Seen: 12/29/23 14:47 Interval history: Patient still wanting to continue with wound care and is wanting to proceed with diverting colostomy placement. Exam Const: General: no acute distress and ill appearing Skin: Other: Large sacral decubitus ulcer extending to bone with the fascia over the sacrum exposed and a small amount of loose necrotic escobedo tissue in that area. Majority of the wound is pink with no significant areas of necrotic tissue or purulent drainage. Left ischial wound dry and appears stable. No purulent drainage, thin layer of a forde eschar appears to be forming on the wound with no crepitus. Silver gel applied. Objective Data Vital Signs Vital Signs: Vital Signs - 24 hr 12/28/23 16:00 12/28/23 16:00 12/28/23 16:00 Temperature 97.1 F L Pulse Rate 98 98 Respiratory Rate 22 H Blood Pressure 123/63 Pulse Oximetry 100 96 Oxygen Delivery Nasal Cannula Oxygen Flow Rate 2 Fraction of Inspired Oxygen 12/28/23 18:00 12/28/23 20:31 12/28/23 21:00 Temperature 99.0 F Pulse Rate 98 108 H Respiratory Rate 20 Blood Pressure 138/72 Pulse Oximetry 96 94 Oxygen Delivery Nasal Cannula Oxygen Flow Rate 2 Fraction of Inspired Oxygen 28 12/28/23 20:00 12/28/23 20:00 12/29/23 00:00 Temperature Pulse Rate 105 H Respiratory Rate Blood Pressure Pulse Oximetry 96 96 Oxygen Delivery Nasal Cannula Nasal Cannula Oxygen Flow Rate 1 1 Fraction of Inspired Oxygen 12/29/23 00:42 12/28/23 22:00 12/29/23 00:00 Temperature 100.1 F H Pulse Rate 107 H 100 100 Respiratory Rate 20 Blood Pressure 127/62 Pulse Oximetry 100 Oxygen Delivery Oxygen Flow Rate Fraction of Inspired Oxygen 12/29/23 02:00 12/29/23 03:37 12/29/23 03:42 Temperature 100.0 F H Pulse Rate 103 H 101 H Respiratory Rate 20 Blood Pressure 108/5 L Pulse Oximetry 96 96 Oxygen Delivery Nasal Cannula Oxygen Flow Rate 1 Fraction of Inspired Oxygen 12/29/23 04:00 12/29/23 06:00 12/29/23 07:37 Temperature
--- NOTE | 2023-12-29 14:47 | PM.PNGS ---
Progress Note: A&P Assessment and Plan (1) Decubitus ulcer: Qualifiers: Pressure injury location: sacral region Pressure injury stage: stage 4 Qualified Code(s): L89.154 - Pressure ulcer of sacral region, stage 4 Code(s): L89.90 - Pressure ulcer of unspecified site, unspecified stage Status: Acute Assessment and Plan: Continue local wound care and broad spectrum antibiotics at this time. The patient and her daughter have discussed her treatment options, and the patient decided she wishes to proceed with a diverting colostomy. We will make her NPO after midnight and Dr. Reich has added her onto the surgery schedule tomorrow for an open diverting colostomy. Description of the procedure, risks, benefits, alternatives, and expected recovery were discussed. (2) Sepsis: Code(s): A41.9 - Sepsis, unspecified organism Status: Acute (3) Acute renal failure: Code(s): N17.9 - Acute kidney failure, unspecified Status: Acute (4) Adult failure to thrive: Code(s): R62.7 - Adult failure to thrive Status: Acute (5) Mobility impaired: Code(s): Z74.09 - Other reduced mobility Status: Acute (6) Encephalopathy: Code(s): G93.40 - Encephalopathy, unspecified Status: Acute Plan I have discussed the patient's case and plan of care with Dr. Reich. Subjective Subjective Date/Time Seen: 12/29/23 14:47 Interval history: I had a long discussion with the patient's daughter yesterday afternoon on the phone regarding the patient's wounds, prognosis, and treatment options. She decided to come visit the patient today to discuss all of her options and the patient has decided to proceed with diverting colostomy. Exam Const: General: no acute distress Orientation/consciousness: patient oriented x3 GI: Inspection: non-distended GI Palp: Yes Soft to palpation, No Tenderness to palpation present (GI) and No Guarding due to palpation present (GI) Auscultation: normal bowel sounds Other: Sacral wound with dressing dry and intact Objective Data Vital Signs Vital Signs: Vital Signs - 24 hr 12/28/23 16:00 12/28/23 16:00 12/28/23 16:00 Temperature 97.1 F L Pulse Rate 98 98 Respiratory Rate 22 H Blood Pressure 123/63 Pulse Oximetry 100 96 Oxygen Delivery Nasal Cannula Oxygen Flow Rate 2 Fraction of Inspired Oxygen 12/28/23 18:00 12/28/23 20:31 12/28/23 21:00 Temperature 99.0 F Pulse Rate 98 108 H Respiratory Rate 20 Blood Pressure 138/72 Pulse Oximetry 96 94 Oxygen Delivery Nasal Cannula Oxygen Flow Rate 2 Fraction of Inspired Oxygen 28 12/28/23 20:00 12/28/23 20:00 12/29/23 00:00 Temperature Pulse Rate 105 H Respiratory Rate Blood Pressure Pulse Oximetry 96 96 Oxygen Delivery Nasal Cannula Nasal Cannula Oxygen Flow Rate 1 1 Fraction of Inspired Oxygen 12/29/23 00:42 12/28/23 22:00 12/29/23 00:00 Temperature 100.1 F H Pulse Rate 107 H 100 100 Respiratory Rate 20 Blood Pressure 127/62 Pulse Oximetry 100 Oxygen Delivery Oxygen Flow Rate Fraction of Inspired Oxygen 12/29/23 02:00 12/29/23 03:37 12/29/23 03:42 Temperature 100.0 F H Pulse Rate 103 H 101 H Respiratory Rate 20 Blood Pressure 108/5 L Pulse Oximetry 96 96 Oxygen Delivery Nasal Cannula Oxygen Flow Rate 1 Fraction of Inspired Oxygen 12/29/23 04:00 12/29/23 06:00 12/29/23 07:37 Temperature 99.2 F Pulse Rate 102 H 101 H 92 Respiratory Rate 24 H Blood Pressure 112/52 L Pulse Oximetry 100 Oxygen Delivery Oxygen Flow Rate Fraction of Inspired Oxygen 12/29/23 08:11 12/29/23 08:00 12/29/23 08:00 Temperature Pulse Rate 97 Respiratory Rate Blood Pressure Pulse Oximetry 97 97 Oxygen Delivery Nasal Cannula Nasal Cannula Oxygen Flow Rate 1 1 Fraction of Inspired Oxygen 12/29/23 10:00 12/29/23 11:52 12/29/23 12:00 Temperat
--- NOTE | 2023-12-29 14:58 | PCWOUND ---
WOCN NOTE Received orders to my patient for colostomy placement. Patient with a large soft abdomen, that bulges out with thick adipose tissue when in a sitting position. Marking was placed closer to the naval as it has the least amount of adipose and is not in a skin fold. Black X was placed and covered with a tegaderm dressing. Will follow post-op for colostomy teaching is applicable.
[2023-12-29 16:29] LABS: Glucose Point of Care 117 mg/dl (65-105)
--- NOTE | 2023-12-29 16:47 | PM.IMPN ---
Progress Note: A&P Assessment and Plan (1) Sepsis: Code(s): A41.9 - Sepsis, unspecified organism Status: Acute Assessment and Plan: Patient appears to have sepsis secondary to decubitus wound which is likely infected and UTI. There is also component of cellulitis of right foot Urine culture is growing Pseudomonas Blood culture is growing Proteus and Gram-negative bacilli 12/23 repeat blood culture sent Patient received IV fluid bolus in the ER followed by additional bolus in the ICU and now off IV fluid Off vasopressors Continue meropenem DC vancomycin General surgery consult for sacral decubitus wound and patient underwent surgical debridement on 12/23 Patient was also evaluated by Evaluation Assistant and local wound care was recommended CT does not show any free air and on the exam I do not see any crepitus or free air concerning of Jen's gangrene at this time Local Wound care as per Wound Care Service (2) Adult failure to thrive: Code(s): R62.7 - Adult failure to thrive Status: Acute Assessment and Plan: Consult speech for swallow evaluation Dietitian consult (3) Acute renal failure: Code(s): N17.9 - Acute kidney failure, unspecified Status: Acute Assessment and Plan: Patient presented with acute renal failure likely 2nd dehydration which has progressed to ATN and along with possible rhabdomyolysis Patient received IV fluid bolus and IV fluids were continued. Patient is now producing urine Creatinine is improving and down to normal range Hyperkalemia was treated with insulin and dextrose along with calcium in the ER and improved 5.1 will start IV fluid bicarb and will also give 1 dose of Lokelma monitor and has resolved Monitor electrolytes creatinine and urine output CT scan shows bilateral hydroureteronephrosis but no obstructing stone Nephrology and Urology has been consulted (4) Decubitus ulcer: Qualifiers: Pressure injury location: sacral region Pressure injury stage: stage 4 Qualified Code(s): L89.154 - Pressure ulcer of sacral region, stage 4 Code(s): L89.90 - Pressure ulcer of unspecified site, unspecified stage Status: Acute Assessment and Plan: -Continue local wound care and broad spectrum antibiotics at this time. Possibility of repeat debridement if more necrotic tissue develops. Patient overall has very poor prognosis and will never heal from a wound this large. With aggressive wound care, best outlook would be to avoid infections in the wounds and limit recurrent sepsis. -Discussed that continued stool around the wound will only increase the likelihood of infection. Diverting colostomy might be necessary to help control infection. Family now okay with going ahead with a diverting colostomy. Surgical deformity. (5) Rhabdomyolysis: Qualifiers: Encounter type: initial encounter Rhabdomyolysis type: traumatic Qualified Code(s): T79.6XXA - Traumatic ischemia of muscle, initial encounter Code(s): M62.82 - Rhabdomyolysis Status: Acute Assessment and Plan: See above (6) Dehydration: Code(s): E86.0 - Dehydration Status: Inactive Assessment and Plan: See above (7) Encephalopathy: Code(s): G93.40 - Encephalopathy, unspecified Status: Acute Assessment and Plan: Likely secondary to uremia and delirium Uremia has improved Head CT was negative for any acute change TSH was normal Monitor (8) Cellulitis: Code(s): L03.90 - Cellulitis, unspecified Status: Acute Assessment and Plan: See above (9) Atrial fibrillation with RVR: Code(s): I48.91 - Unspecified atrial fibrillation Status: Acute Assessment and Plan: Patient went to AFib with RVR yesterday likely sepsis. She was started on amiodarone infusion and Converted to sinus rhythm. Now off of amiodarone. Echocardiogram reviewed. Not on anti anticoagulation as patient was going for
[2023-12-29] MEDS: HYDROcodone/acetaminophen (*CRX) 5-325 MG TABLET 1 TAB PO (18:27)
[2023-12-29 21:19] LABS: Glucose Point of Care 101 mg/dl (65-105)
[2023-12-29] MEDS: MORPHINE SULFATE (*CRX) 2 MG/ML INJ IV PUSH (21:22)
[2023-12-30] VITALS (28 sets, daily range): BP systolic 95–139; BP diastolic 55–98; PULSE 86–109; RESP 15–22; TEMP 36.2–37.1; O2SAT 94–100
[2023-12-30] MEDS: MEROPENEM 1 GM/NS 100 ML 1 GM/100 ML BAG IVPB ×3 (00:50→17:00)
[2023-12-30 05:34] LABS: Basophils Percent Auto 0.1 % (0.2-1.2); Eosinophils Absolute Auto 0.2 K/mm3 (0-0.3); Eosinophils Percent Auto 1.4 % (0-4.4); Hematocrit 25.9 % (37.0-47.0); Hemoglobin 7.9 g/dL (12.0-15.0); Immature Granulocyte Absolute 0.14 K/mm3 (0.00-0.031); Immature Granulocyte Percent A 0.9 % (0-0.5); Lymphocytes Absolute Auto 1.75 K/mm3 (0.9-3.2); Lymphocytes Percent Auto 11.5 % (18.3-44.2); Mean Corpuscular HGB Conc 30.5 g/dl (32-36); Mean Corpuscular Hemoglobin 25.6 pg (26-34); Mean Corpuscular Volume 84.1 fl (80-100); Monocytes Absolute Auto 1.1 K/mm3 (0.1-0.6); Neutrophils Percent Auto 79.1 % (45.5-73.1); Platelet Count Result 331 k/mm3 (150-375); Red Blood Count 3.08 M/mm3 (4.2-5.4); Red Cell Distribution Width 17.8 % (11.5-14.5); White Blood Count 15.2 K/mm3 (4.5-10.0)
[2023-12-30 05:47] LABS: Alanine Aminotransferase 26 U/L (6-35); Albumin Level 2.3 g/dL (3.5-5.1); Alkaline Phosphatase 56 U/L (38-126); Anion Gap 4 mmol/L (4-12); Aspartate Amino Transferase 28 U/L (14-36); Bilirubin,Total 0.7 mg/dL (0.2-1.3); Blood Urea Nitrogen 12 mg/dL (7-17); Calcium 7.7 mg/dL (8.4-10.2); Carbon Dioxide 30 mmol/L (22-30); Chloride 100 mmol/L (98-107); Estimated CRCL calculation 102 ml/min; Estimated Glomerular Filt Rate > 60; Glucose 83 mg/dL (65-110); Magnesium 1.4 mg/dL (1.6-2.3); Potassium 3.9 mmol/L (3.4-5.0); Sodium 134 mmol/L (137-145)
[2023-12-30 08:20] LABS: Glucose Point of Care 90 mg/dl (65-105)
[2023-12-30] MEDS: TOLNAFTATE 1% POWDER 45 GM BTL 1 APPLIC TOPICAL ×2 (09:11→19:52)
[2023-12-30] MEDS: ALBUMIN HUMAN 25% 25 GM/100 ML 100 ML IVPB (09:49)
[2023-12-30 11:53] LABS: Glucose Point of Care 84 mg/dl (65-105)
[2023-12-30 12:33] LABS: Glucose Point of Care 76 mg/dl (65-105)
[2023-12-30] MEDS: LACTATED RINGERS 1,000 ML 30 ML IV CONT ×2 (12:33→18:10)
[2023-12-30 13:27] LABS: Glucose Point of Care 81 mg/dl (65-105)
--- NOTE | 2023-12-30 14:41 | WPDANESEPPF ---
Anes - Initial Pre Proc Eval Procedure: Operation Date: 12/24/23 15:30 Proposed Procedures p Debridement Sacral Decubitus Ulcer - Jericho Harrington DO Operation Date: 12/30/23 13:00 Proposed Procedures p Open Diverting Colostomy - Jericho OlgaAlon Harrington DO Date/Time: 12/30/23 14:41 Surgeon: Manjit Flynn MD Pre Op Diagnosis: Sepsis, Failure to thrive, Acute renal failure, Ur Patient Data Age: 78 Gender: F Height: 1.65 m Weight: 80.4 kg Last Vital Signs Temp 98.1 F 12/30/23 12:08 Pulse 98 12/30/23 12:08 Resp 16 12/30/23 12:08 BP 136/70 12/30/23 12:08 Pulse Ox 96 12/30/23 12:08 O2 Del Method Room Air 12/30/23 12:08 O2 Flow Rate 1 12/30/23 03:52 FiO2 24 12/29/23 23:29 Allergies Allergy/AdvReac Type Severity Reaction Status Date / Time No Known Allergies Allergy Verified 09/15/23 23:23 Home Medications Medication Instructions Recorded Confirmed Type aspirin 325 mg tablet (Harley 325 mg PO DAILY 12/22/23 12/22/23 History Aspirin) Laboratory Tests 12/29/23 12/29/23 12/30/23 15:44 19:59 05:08 WBC 15.2 H K/mm3 (4.5-10.0) RBC 3.08 L M/mm3 (4.2-5.4) Hgb 7.9 L g/dL (12.0-15.0) Hct 25.9 L % (37.0-47.0) MCV 84.1 fl (80-100) MCH 25.6 L pg (26-34) MCHC 30.5 L g/dl (32-36) RDW 17.8 H % (11.5-14.5) Plt Count 331 k/mm3 (150-375) MPV 10.0 fl (7.4-10.4) Immature Gran % (Auto) 0.9 H % (0-0.5) Neut % (Auto) 79.1 H % (45.5-73.1) Lymph % (Auto) 11.5 L % (18.3-44.2) [place] % (Auto) 7.0 % (2.6-8.5) Eos % (Auto) 1.4 % (0-4.4) Baso % (Auto) 0.1 L % (0.2-1.2) Lymph # (Auto) 1.75 K/mm3 (0.9-3.2) [place] # (Auto) 1.1 H K/mm3 (0.1-0.6) Eos # (Auto) 0.2 K/mm3 (0-0.3) Baso # (Auto) 0.0 K/mm3 (0.0-0.1) Abs Immat Gran (auto) 0.14 H K/mm3 (0.00-0.031) Absolute Neuts (auto) 12.0 H K/mm3 (1.3-6.7) Absolute Nucleated RBC 0.000 K/mm3 (0.0-0.012) Nucleated RBC % 0.0 % (0.0-0.2) Sodium 134 L mmol/L (137-145) Potassium 3.9 mmol/L (3.4-5.0) Chloride 100 mmol/L (98-107) Carbon Dioxide 30 mmol/L (22-30) Anion Gap 4 mmol/L (4-12) BUN 12 mg/dL (7-17) Creatinine 0.40 L mg/dL (0.7-1.0) Estim Creat Clear Calc 102 ml/min Estimated GFR > 60 (59 - ) Glucose 83 mg/dL (65-110) POC Capillary Glucose 117 H mg/dl 101 mg/dl (65-105) (65-105) Calcium 7.7 L mg/dL (8.4-10.2) Magnesium 1.4 L mg/dL (1.6-2.3) Total Bilirubin 0.7 mg/dL (0.2-1.3) AST 28 U/L (14-36) ALT 26 U/L (6-35) Alkaline Phosphatase 56 U/L (38-126) Total Protein 5.0 L g/dL (6.3-8.2) Albumin 2.3 L g/dL (3.5-5.1) Blood Type Antibody Screen 12/30/23 12/30/23 12/30/23 08:02 09:26 11:22 WBC RBC Hgb Hct MCV MCH MCHC RDW Plt Count MPV Immature Gran % (Auto) Neut % (Auto) Lymph % (Auto) [place] % (Auto) Eos % (Auto) Baso % (Auto) Lymph # (Auto) [place] # (Auto) Eos # (Auto) Baso # (Auto) Abs Immat Gran (auto) Absolute Neuts (auto) Absolute Nucleated RBC Nucleated RBC % Sodium Potassium Chloride Carbon Dioxide Anion Gap BUN Creatinine Estim Creat Clear Calc Estimated GFR Glucose POC Capillary Glucose 90 mg/dl
--- NOTE | 2023-12-30 16:14 | WPDHPUPDATE1 ---
History and Physical Update Update Date/Time: 12/30/23 16:14 History and Physical has been reviewed, including an updated exam of the patient. There are NO changes in the patient's condition. Risks, benefits, and alternatives have been discussed and questions answered. Patient agrees to proceed with procedure.
--- NOTE | 2023-12-30 16:45 | P.PNIM_ITS ---
Progress Note: A&P Assessment and Plan (1) Sepsis: Code(s): A41.9 - Sepsis, unspecified organism Status: Acute Assessment and Plan: Patient appears to have sepsis secondary to decubitus wound which is likely in fected and UTI. There is also component of cellulitis of right foot Urine culture is growing Pseudomonas Blood culture is growing Proteus and Gram-negative bacilli 12/23 repeat blood culture sent Patient received IV fluid bolus in the ER followed by additional bolus in the ICU and now off IV fluid Off vasopressors Continue meropenem DC vancomycin General surgery consult for sacral decubitus wound and patient underwent surgical debridement on 12/23 Patient was also evaluated by Telephone Cleaner and local wound care was recommended CT does not show any free air and on the exam I do not see any crepitus or free air concerning of Jen's gangrene at this time Local Wound care as per Wound Care Service (2) Adult failure to thrive: Code(s): R62.7 - Adult failure to thrive Status: Acute Assessment and Plan: Consult speech for swallow evaluation Dietitian consult (3) Acute renal failure: Code(s): N17.9 - Acute kidney failure, unspecified Status: Acute Assessment and Plan: Patient presented with acute renal failure likely 2nd dehydration which has progressed to ATN and along with possible rhabdomyolysis Patient received IV fluid bolus and IV fluids were continued. Patient is now producing urine Creatinine is improving and down to normal range Hyperkalemia was treated with insulin and dextrose along with calcium in the ER and improved 5.1 will start IV fluid bicarb and will also give 1 dose of Lokelma monitor and has resolved Monitor electrolytes creatinine and urine output CT scan shows bilateral hydroureteronephrosis but no obstructing stone Nephrology and Urology has been consulted (4) Decubitus ulcer: Qualifiers: Pressure injury location: sacral region Pressure injury stage: stage 4 Qualified Code(s): L89.154 - Pressure ulcer of sacral region, stage 4 Code(s): L89.90 - Pressure ulcer of unspecified site, unspecified stage Status: Acute Assessment and Plan: -Continue local wound care and broad spectrum antibiotics at this time. Possibility of repeat debridement if more necrotic tissue develops. Patient overall has very poor prognosis and will never heal from a wound this large. With aggressive wound care, best outlook would be to avoid infections in the wounds and limit recurrent sepsis. -Discussed that continued stool around the wound will only increase the likelihood of infection. Diverting colostomy might be necessary to help control infection. For diverting colostomy. Surgical on board (5) Rhabdomyolysis: Qualifiers: Encounter type: initial encounter Rhabdomyolysis type: traumatic Qualified Code(s): T79.6XXA - Traumatic ischemia of muscle, initial encounter Code(s): M62.82 - Rhabdomyolysis Status: Acute Assessment and Plan: See above (6) Dehydration: Code(s): E86.0 - Dehydration Status: Inactive Assessment and Plan: See above (7) Encephalopathy: Code(s): G93.40 - Encephalopathy, unspecified Status: Acute Assessment and Plan: Likely secondary to uremia and delirium Uremia has improved Head CT was negative for any acute change TSH was normal Monitor (8) Cellulitis: Code(s): L03.90 - Cellulitis, unspecified Status: Acute Assessment and Plan: See above (9) Atrial fibrillation with RV
--- NOTE | 2023-12-30 18:17 | SUR.PHASEI ---
1816- Notified Britt Martinez CRNA and Dr. Harrington patient's blood glucose 75. Per BASIM De La Torre and Dr. Harrington no treatment needed for blood glucose at this time as patient will be receiving clear liquids once upstairs in IMU room.
[2023-12-30 18:20] LABS: Glucose Point of Care 75 mg/dl (65-105)
--- NOTE | 2023-12-30 18:24 | W.PM.PROC2 ---
Procedure Note - Detailed Date of Procedure 12/30/23 Pre-op Diagnosis Stage IV sacral decubitus ulcer Post-op Diagnosis Same Procedure Performed Open diverting colostomy placement Surgeon Jericho Harrington, DO Anesthesia General Indications This is a 78-year-old woman who presented to the hospital with multiple wounds involving her sacrum and multiple other areas. She has a large unstageable necrotic ulcer the looked infected on her sacrum. She was taken for surgical debridement and was found to have stage IV sacral decubitus ulcer. Has been having liquid stools does not much in terms of fecal continence right now. Discussed with her and her family about possible need for colostomy placement to prevent continued stool leaking around the wound. After further discussions ostomy placement verses considering comfort measures patient decided to proceed ostomy placement. Findings Diverting colostomy was performed. Patient was found some clear ascites within her abdomen but her small bowel and colon appeared normal. Chose a location on the distal sigmoid colon to bring up for the colostomy. The distal sigmoid was transected this location leaving her with a rectal stump and end colostomy. No other intra-abdominal abnormalities were noted. Description of Procedure Procedure as well as risks, benefits, and alternatives were discussed with the patient. Written consent was obtained and placed in chart prior to procedure. Patient was brought back to surgical suite. She was placed supine on operating table. Time-out was done to confirm patient and procedure. She was then intubated by the anesthesia department. Her abdomen was prepped and draped in sterile fashion using chlorhexidine prep. A 10 cm vertical midline incision was made in the lower abdomen inferior to the umbilicus using a 10 blade scalpel. Electrocautery was used for hemostasis and for dissection through the subcutaneous tissue. Linea alba was then identified and incised using electrocautery. The peritoneal cavity was then entered using electrocautery. The abdomen was inspected. The sigmoid colon was identified and then traced down to the rectum. There appeared to plenty sigmoid colon to bring for a colostomy. The distal sigmoid colon was identified window was created in the mesocolon using electrocautery. Contour blue load stapler was then advanced across colon at this point was clamped fired. LigaSure bipolar cautery was then used to take down the mesentery for a long enough distance to allow mobilization to bring up for the colostomy. I then made a 2 cm circular incision the left lower quadrant near the marking for the colostomy. The circular section of skin was excised with electrocautery. Dissection was then carried down to the anterior rectus sheath and a vertical incision was made on the anterior rectus sheath with electrocautery. The rectus muscle was then split along its fibers and the posterior rectus sheath was incised with electrocautery. The peritoneum was then entered with electrocautery. The tract was dilated wide enough to allow for the colostomy. The sigmoid colon was then delivered through the colostomy incision and oriented properly without any twisting along its path. The colostomy was sitting in proper position without any tension. I then moved my attention back to the midline incision to close the abdomen. The peritoneum was closed using 0 Vicryl running suture. The fascia was then closed using 0 PDS running absorbable suture. Ermelinda's fascia was reapproximated using 3-0 Vicryl simple interrupted sutures. The skin was then approximated using 4-0 Monocryl running subcuticular suture. Exofin glue was then applied on top. I then excised the staple line from the colostomy site using electrocautery. The colostomy was then matured using 3-0 chromic sutures at the 4 corners and then 4-0 chromic sutures between. Once the entire circumference of the colostomy was adequately se
[2023-12-30] MEDS: fentaNYL CITRATE INJ (*CRX) 100 MCG/2 ML VIAL 25 MCG IV PUSH (18:46)
[2023-12-30 19:21] LABS: Glucose Point of Care 78 mg/dl (65-105)
[2023-12-30] MEDS: HYDROcodone/acetaminophen (*CRX) 5-325 MG TABLET 1 TAB PO (19:50)
--- NOTE | 2023-12-30 19:53 | PC.NURSE ---
193: Patient back from surgery.
[2023-12-30 20:11] LABS: Glucose Point of Care 90 mg/dl (65-105)
[2023-12-30 22:26] LABS: Iron 26 ug/dL (37-170)
[2023-12-30 22:52] LABS: Percent Iron Saturation 15 % (20-50)
[2023-12-30] MEDS: MORPHINE SULFATE (*CRX) 2 MG/ML INJ IV PUSH (23:13)
[2023-12-30] MEDS: SOD HYPOCHLORITE 1/4 STRENGTH 473 ML 1 APPLIC TOPICAL (23:15)
[2023-12-31] VITALS (15 sets, daily range): BP systolic 98–126; BP diastolic 49–69; PULSE 86–103; RESP 12–18; TEMP 36.7–37.3; O2SAT 94–98; BMI 10.0
[2023-12-31] MEDS: HYDROcodone/acetaminophen (*CRX) 5-325 MG TABLET 1 TAB PO ×2 (00:38→06:13)
[2023-12-31] MEDS: MEROPENEM 1 GM/NS 100 ML 1 GM/100 ML BAG IVPB ×3 (00:39→19:32)
[2023-12-31 05:30] LABS: Basophils Percent Auto 0.1 % (0.2-1.2); Hematocrit 27.3 % (37.0-47.0); Hemoglobin 8.2 g/dL (12.0-15.0); Immature Granulocyte Absolute 0.19 K/mm3 (0.00-0.031); Immature Granulocyte Percent A 0.8 % (0-0.5); Lymphocytes Absolute Auto 0.94 K/mm3 (0.9-3.2); Lymphocytes Percent Auto 3.9 % (18.3-44.2); Mean Corpuscular Hemoglobin 25.4 pg (26-34); Mean Corpuscular Volume 84.5 fl (80-100); Mean Platelet Volume 10.4 fl (7.4-10.4); Monocytes Absolute Auto 0.4 K/mm3 (0.1-0.6); Monocytes Percent Auto 1.7 % (2.6-8.5); Neutrophils Absolute Auto 22.5 K/mm3 (1.3-6.7); Neutrophils Percent Auto 93.5 % (45.5-73.1); Platelet Count Result 399 k/mm3 (150-375); Red Blood Count 3.23 M/mm3 (4.2-5.4); Red Cell Distribution Width 18.2 % (11.5-14.5); White Blood Count 24.1 K/mm3 (4.5-10.0)
[2023-12-31 05:53] LABS: Hypochromasia 1+; Ovalocytes 1+; Platelet Estimate Slightly Increased (Adequate); Schistocytes None Seen
[2023-12-31 05:56] LABS: Alanine Aminotransferase 21 U/L (6-35); Albumin Level 2.6 g/dL (3.5-5.1); Alkaline Phosphatase 54 U/L (38-126); Anion Gap 3 mmol/L (4-12); Aspartate Amino Transferase 20 U/L (14-36); Bilirubin,Total 0.7 mg/dL (0.2-1.3); Blood Urea Nitrogen 10 mg/dL (7-17); Carbon Dioxide 31 mmol/L (22-30); Chloride 100 mmol/L (98-107); Estimated CRCL calculation 102 ml/min; Estimated Glomerular Filt Rate > 60; Glucose 112 mg/dL (65-110); Magnesium 1.5 mg/dL (1.6-2.3); Potassium 4.5 mmol/L (3.4-5.0); Sodium 134 mmol/L (137-145)
[2023-12-31 08:39] LABS: Glucose Point of Care 107 mg/dl (65-105)
[2023-12-31] MEDS: ASPIRIN 325 MG TABLET PO (09:45)
--- NOTE | 2023-12-31 10:52 | PM.PNGS ---
Progress Note: A&P Assessment and Plan (1) Decubitus ulcer: Qualifiers: Pressure injury location: sacral region Pressure injury stage: stage 4 Qualified Code(s): L89.154 - Pressure ulcer of sacral region, stage 4 Code(s): L89.90 - Pressure ulcer of unspecified site, unspecified stage Status: Acute Assessment and Plan: Continue local wound care and broad spectrum antibiotics at this time. Routine ostomy care OK to discharge in 1-2 days if continuing to improve (2) Sepsis: Code(s): A41.9 - Sepsis, unspecified organism Status: Acute (3) Acute renal failure: Code(s): N17.9 - Acute kidney failure, unspecified Status: Acute (4) Adult failure to thrive: Code(s): R62.7 - Adult failure to thrive Status: Acute (5) Mobility impaired: Code(s): Z74.09 - Other reduced mobility Status: Acute (6) Encephalopathy: Code(s): G93.40 - Encephalopathy, unspecified Status: Acute Subjective Subjective Date/Time Seen: 12/31/23 10:52 Interval history: Doing well today. Pain controlled. Rectal tube removed. Tolerating diet. Exam Const: General: no acute distress Orientation/consciousness: patient oriented x3 GI: Inspection: non-distended, incision (intact with glue) and other (Ostomy pink and functioning--stool and gas in bag) GI Palp: Yes Soft to palpation and Yes Tenderness to palpation present (GI) (incisional) Auscultation: normal bowel sounds Other: Sacral wound with dressing dry and intact Objective Data Vital Signs Vital Signs: Vital Signs - 24 hr 12/30/23 11:23 12/30/23 11:41 12/30/23 12:08 Temperature 98.1 F 98.1 F 98.1 F Pulse Rate 105 H 105 H 98 Respiratory Rate 18 18 16 Blood Pressure 138/66 138/66 136/70 Pulse Oximetry 98 98 96 Oxygen Delivery Room Air Oxygen Flow Rate 12/30/23 18:10 12/30/23 18:25 12/30/23 18:30 Temperature 98.7 F Pulse Rate 108 H 108 H 109 H Respiratory Rate 20 18 16 Blood Pressure 137/88 120/82 116/57 L Pulse Oximetry 100 100 99 Oxygen Delivery Simple Face Mask Simple Face Mask Room Air Oxygen Flow Rate 8 8 12/30/23 18:45 12/30/23 19:00 12/30/23 19:15 Temperature 97.2 F L Pulse Rate 108 H 90 86 Respiratory Rate 15 15 18 Blood Pressure 105/74 95/59 L 105/58 L Pulse Oximetry 94 96 96 Oxygen Delivery Room Air Nasal Cannula Nasal Cannula Oxygen Flow Rate 2 2 12/30/23 19:35 12/30/23 19:57 12/30/23 20:05 Temperature 98 F 98 F Pulse Rate 92 91 Respiratory Rate 18 20 Blood Pressure 108/58 L 118/56 L Pulse Oximetry 96 96 96 Oxygen Delivery Nasal Cannula Oxygen Flow Rate 2 12/30/23 20:50 12/30/23 21:05 12/30/23 20:00 Temperature 97.8 F Pulse Rate 91 102 H Respiratory Rate 20 Blood Pressure 132/67 Pulse Oximetry 96 100 Oxygen Delivery Nasal Cannula Oxygen Flow Rate 2 12/30/23 22:00 12/30/23 23:18 12/31/23 00:00 Temperature 98.4 F Pulse Rate 95 89 Respiratory Rate 20 Blood Pressure 139/73 Pulse Oximetry 95 95 Oxygen Delivery Room Air Oxygen Flow Rate 12/31/23 00:00 12/31/23 02:00 12/31/23 04:00 Temperature Pulse Rate 98 91 88 Respiratory Rate Blood Pressure Pulse Oximetry Oxygen Delivery Oxygen Flow Rate 12/31/23 04:00 12/31/23 06:00 12/31/23 04:00 Temperature 99.1 F Pulse Rate 88 88 Respiratory Rate 12 Blood Pressure 126/69 Pulse Oximetry 96 96 Oxygen Delivery Room Air Oxygen Flow Rate 12/31/23 08:00 12/31/23 09:58 Temperature 98.2 F Pulse Rate 90 Respiratory Rate 18 Blood Pressure 118/61 Pulse Oximetry 95 94 Oxygen Delivery Room Air Oxygen Flow Rate Intake/Output Intake/Output: Intake & Output 12/28/23 12/29/23 12/30/23 12/31/23 23:59 23:59 23:59 23:59 Intake Total 5225 995 4606 680 Output Total 1600 1700 2950 1000 [facility] [phone] Meds/Results Medications: Active Medications Generic Name Dose Route Start Last
[2023-12-31] MEDS: ENOXAPARIN 40 MG/0.4 ML SYRINGE SUB-Q (11:55)
[2023-12-31] MEDS: COLLAGENASE OINT 30 GM TUBE 1 APPLIC TOPICAL (11:55)
[2023-12-31] MEDS: TOLNAFTATE 1% POWDER 45 GM BTL 1 APPLIC TOPICAL (11:56)
[2023-12-31] MEDS: SOD HYPOCHLORITE 1/4 STRENGTH 473 ML 1 APPLIC TOPICAL (11:56)
--- NOTE | 2023-12-31 12:38 | WPDANESPN ---
Anes - Prog Note Post-Op Date/Time: 12/31/23 12:38 Cardiovascular status: normal Respiratory status: normal Airway patency: baseline Mental status: baseline Post-Op hydration status: normal Vital Signs: Last Vital Signs Temp 36.7 C 12/31/23 12:00 Pulse 100 12/31/23 12:00 Resp 16 12/31/23 12:00 BP 98/50 L 12/31/23 12:00 Pulse Ox 96 12/31/23 12:00 O2 Del Method Room Air 12/31/23 09:58 O2 Flow Rate 2 12/30/23 20:50 FiO2 24 12/29/23 23:29 Pain Score (VAS): 3 I/O: Intake & Output 12/30/23 12/31/23 12/31/23 23:59 07:59 15:59 Intake Total 400 480 300 Output Total 350 1000 Balance 50 -520 300 Laboratory Tests 12/31/23 04:31 12/31/23 04:31 12/30/23 12/30/23 12/30/23 13:24 18:17 19:18 WBC RBC Hgb Hct MCV MCH MCHC RDW Plt Count MPV Immature Gran % (Auto) Neut % (Auto) Lymph % (Auto) [place] % (Auto) Eos % (Auto) Baso % (Auto) Lymph # (Auto) [place] # (Auto) Eos # (Auto) Baso # (Auto) Abs Immat Gran (auto) Absolute Neuts (auto) Absolute Nucleated RBC Nucleated RBC % Platelet Estimate Hypochromasia Ovalocytes Schistocytes Sodium Potassium Chloride Carbon Dioxide Anion Gap BUN Creatinine Estim Creat Clear Calc Estimated GFR Glucose POC Capillary Glucose 81 75 78 Calcium Magnesium Iron TIBC % Saturation Ferritin Total Bilirubin AST ALT Alkaline Phosphatase Total Protein Albumin 12/30/23 12/30/23 12/31/23 20:07 20:27 04:31 WBC 24.1 H RBC 3.23 L Hgb 8.2 L Hct 27.3 L MCV 84.5 MCH 25.4 L MCHC 30.0 L RDW 18.2 H Plt Count 399 H MPV 10.4 Immature Gran % (Auto) 0.8 H Neut % (Auto) 93.5 H Lymph % (Auto) 3.9 L [place] % (Auto) 1.7 L Eos % (Auto) 0.0 Baso % (Auto) 0.1 L Lymph # (Auto) 0.94 [place] # (Auto) 0.4 Eos # (Auto) 0.0 Baso # (Auto) 0.0 Abs Immat Gran (auto) 0.19 H Absolute Neuts (auto) 22.5 H Absolute Nucleated RBC 0.000 Nucleated RBC % 0.0 Platelet Estimate Slightly increased Hypochromasia 1+ Ovalocytes 1+ Schistocytes None seen Sodium 134 L Potassium 4.5 Chloride 100 Carbon Dioxide 31 H Anion Gap 3 L BUN 10 Creatinine 0.40 L Estim Creat Clear Calc 102 Estimated GFR > 60 Glucose 112 H POC Capillary Glucose 90 Calcium 8.0 L Magnesium 1.5 L Iron 26 L TIBC 171 L % Saturation 15 L Ferritin 104.00 Total Bilirubin 0.7 AST 20 ALT 21 Alkaline Phosphatase 54 Total Protein 5.0 L Albumin 2.6 L 12/31/23 08:08 WBC RBC Hgb Hct MCV MCH MCHC RDW Plt Count MPV Immature Gran % (Auto) Neut % (Auto) Lymph % (Auto) [place] % (Auto) Eos % (Auto) Baso % (Auto) Lymph # (Auto) [place] # (Auto) Eos # (Auto) Baso # (Auto) Abs Immat Gran (auto) Absolute Neuts (auto) Absolute Nucleated RBC Nucleated RBC % Platelet Estimate Hypochromasia Ovalocytes Schistocytes Sodium Potassium Chloride Carbon Dioxide Anion Gap BUN Creatinine Estim Creat Clear Calc Estimated GFR Glucose POC Capillary Glucose 107 H Calcium Magnesium Iron TIBC % Saturation Ferritin Total Bilirubin AST ALT Alkaline Phosphatase Total Protein Albumin Post-procedural complaints: none Patient Feedback: Patient satisfied with anesthetic care.
[2023-12-31 12:54] LABS: Glucose Point of Care 148 mg/dl (65-105)
--- NOTE | 2023-12-31 14:34 | PCWOUND ---
WOCN NOTE Patient and family requesting ostomy teaching. Provided a ostomy folder and verbally educated on the ostomy daily care and changing process. All expressed understanding. Educated we do not want to remove the appliance on first day post op if not leaking to allow the incision areas to heal. We will do hands on teaching in a couple of days. Patient states she does not think she will be able to change the appliance by herself as she can not cut an appliance with scissors, she will need good help when she leaves the hospital. I reassured the patient that the hospital staff will take care of her while here. Plan is to teach on Thursday.
--- NOTE | 2023-12-31 15:17 | PM.IMPN ---
Progress Note: A&P Assessment and Plan (1) Sepsis: Code(s): A41.9 - Sepsis, unspecified organism Status: Acute Assessment and Plan: Patient appears to have sepsis secondary to decubitus wound which is likely infected and UTI. There is also component of cellulitis of right foot Urine culture is growing Pseudomonas Blood culture is growing Proteus and Gram-negative bacilli 12/23 repeat blood culture sent Patient received IV fluid bolus in the ER followed by additional bolus in the ICU and now off IV fluid Off vasopressors Continue meropenem DC vancomycin General surgery consult for sacral decubitus wound and patient underwent surgical debridement on 12/23 Patient was also evaluated by Aviation Consultant and local wound care was recommended CT does not show any free air and on the exam I do not see any crepitus or free air concerning of Jen's gangrene at this time Local Wound care as per Wound Care Service S/p diverting colostomy continue Meropenem will switch to Cefepime on discharge per culture (2) Adult failure to thrive: Code(s): R62.7 - Adult failure to thrive Status: Acute Assessment and Plan: Consult speech for swallow evaluation Dietitian consult (3) Acute renal failure: Code(s): N17.9 - Acute kidney failure, unspecified Status: Acute Assessment and Plan: Patient presented with acute renal failure likely 2nd dehydration which has progressed to ATN and along with possible rhabdomyolysis Patient received IV fluid bolus and IV fluids were continued. Patient is now producing urine resolved Hyperkalemia resolved s/p give 1 dose of Lokelma and IVF Monitor electrolytes creatinine and urine output CT scan shows bilateral hydroureteronephrosis but no obstructing stone Nephrology and Urology has been consulted (4) Decubitus ulcer: Qualifiers: Pressure injury location: sacral region Pressure injury stage: stage 4 Qualified Code(s): L89.154 - Pressure ulcer of sacral region, stage 4 Code(s): L89.90 - Pressure ulcer of unspecified site, unspecified stage Status: Acute Assessment and Plan: -Continue local wound care and broad spectrum antibiotics at this time. Possibility of repeat debridement if more necrotic tissue develops. Patient overall has very poor prognosis and will never heal from a wound this large. With aggressive wound care, best outlook would be to avoid infections in the wounds and limit recurrent sepsis. -Discussed that continued stool around the wound will only increase the likelihood of infection. Diverting colostomy might be necessary to help control infection. s/p diverting colostomy continue abx as above Appreciate gen surgery input (5) Rhabdomyolysis: Qualifiers: Encounter type: initial encounter Rhabdomyolysis type: traumatic Qualified Code(s): T79.6XXA - Traumatic ischemia of muscle, initial encounter Code(s): M62.82 - Rhabdomyolysis Status: Acute Assessment and Plan: See above (6) Dehydration: Code(s): E86.0 - Dehydration Status: Inactive Assessment and Plan: See above (7) Encephalopathy: Code(s): G93.40 - Encephalopathy, unspecified Status: Acute Assessment and Plan: Likely secondary to uremia and delirium Uremia has improved Head CT was negative for any acute change TSH was normal Monitor (8) Cellulitis: Code(s): L03.90 - Cellulitis, unspecified Status: Acute Assessment and Plan: See above (9) Atrial fibrillation with RVR: Code(s): I48.91 - Unspecified atrial fibrillation Status: Acute Assessment and Plan: Patient went to AFib with RVR yesterday likely sepsis. She was started on amiodarone infusion and Converted to sinus rhythm. Now off of amiodarone. Echocardiogram reviewed. Not on anti anticoagulation as patient was going for surgery and also AFib was pre has converted back to sinus rhythm. Co
[2023-12-31 16:37] LABS: Glucose Point of Care 100 mg/dl (65-105)
--- NOTE | 2023-12-31 20:30 | PC.NURSE ---
Documentation correction: pain reassessment 12/30 13-
[2023-12-31 20:39] LABS: Glucose Point of Care 127 mg/dl (65-105)
[2024-01-01] VITALS (15 sets, daily range): BP systolic 90–130; BP diastolic 49–75; PULSE 75–104; RESP 16–20; TEMP 36.4–37.5; O2SAT 94–98
[2024-01-01] MEDS: MORPHINE SULFATE (*CRX) 2 MG/ML INJ IV PUSH ×3 (00:05→23:29)
--- NOTE | 2024-01-01 00:52 | PC.NURSE ---
[id number]: Upon assessment pt was crying and begging RN not to make her do anything right now. RN asked if she could do anything to make the patient comfortable and she stated she was just so tired of having to do things, she wasn't hot or cold to just please let her be.
[2024-01-01 04:03] LABS: Basophils Percent Auto 0.1 % (0.2-1.2); Eosinophils Absolute Auto 0.1 K/mm3 (0-0.3); Eosinophils Percent Auto 0.8 % (0-4.4); Hematocrit 23.7 % (37.0-47.0); Hemoglobin 7.4 g/dL (12.0-15.0); Immature Granulocyte Absolute 0.07 K/mm3 (0.00-0.031); Immature Granulocyte Percent A 0.5 % (0-0.5); Lymphocytes Absolute Auto 1.76 K/mm3 (0.9-3.2); Lymphocytes Percent Auto 12.4 % (18.3-44.2); Mean Corpuscular HGB Conc 31.2 g/dl (32-36); Mean Corpuscular Hemoglobin 26.1 pg (26-34); Mean Corpuscular Volume 83.5 fl (80-100); Mean Platelet Volume 9.9 fl (7.4-10.4); Monocytes Absolute Auto 0.8 K/mm3 (0.1-0.6); Monocytes Percent Auto 5.5 % (2.6-8.5); Neutrophils Absolute Auto 11.5 K/mm3 (1.3-6.7); Neutrophils Percent Auto 80.7 % (45.5-73.1); Platelet Count Result 366 k/mm3 (150-375); Red Blood Count 2.84 M/mm3 (4.2-5.4); Red Cell Distribution Width 17.9 % (11.5-14.5); White Blood Count 14.3 K/mm3 (4.5-10.0)
[2024-01-01 04:12] LABS: Lactic Acid Reflex 0.8 mmol/L (0.7-2.0)
[2024-01-01 04:14] LABS: Alanine Aminotransferase 19 U/L (6-35); Albumin Level 2.4 g/dL (3.5-5.1); Alkaline Phosphatase 54 U/L (38-126); Anion Gap 3 mmol/L (4-12); Aspartate Amino Transferase 32 U/L (14-36); Bilirubin,Total 0.6 mg/dL (0.2-1.3); Blood Urea Nitrogen 13 mg/dL (7-17); Calcium 7.7 mg/dL (8.4-10.2); Carbon Dioxide 30 mmol/L (22-30); Chloride 99 mmol/L (98-107); Estimated CRCL calculation 105 ml/min; Estimated Glomerular Filt Rate > 60; Glucose 93 mg/dL (65-110); Magnesium 1.5 mg/dL (1.6-2.3); Potassium 3.9 mmol/L (3.4-5.0); Sodium 132 mmol/L (137-145)
[2024-01-01] MEDS: MEROPENEM 1 GM/NS 100 ML 1 GM/100 ML BAG IVPB ×2 (05:22→09:00)
[2024-01-01] MEDS: HYDROcodone/acetaminophen (*CRX) 5-325 MG TABLET 1 TAB PO (05:29)
[2024-01-01] MEDS: ENOXAPARIN 40 MG/0.4 ML SYRINGE SUB-Q (09:00)
[2024-01-01] MEDS: ASPIRIN 325 MG TABLET PO (09:00)
[2024-01-01 09:15] LABS: Glucose Point of Care 101 mg/dl (65-105)
--- NOTE | 2024-01-01 10:07 | PCNFU ---
Nutrition Follow-Up Complete: Severe Protein Calorie Malnutrition as related to inadequate protein energy intake with increased protein energy needs in setting of chronic disease as evidenced by minimal oral intake for at least 1 month; significant weight loss of 7% (13 ibs) in 3 weeks; severe subcutaneous fat loss (orbital fat pads) and severe muscle wasting (temporalis, clavicle). Meet estimated nutritional needs. - Progressing toward goal. Advanced diet after NPO yesterday Goal: Pt current nutrition is Minced & moist diet, Ensure Enlive TID for additional 350 kcal and 20 g protein each, Leonard BID for additional 90 kcal and 2.5 g protein each for wound healing support. Nutrition recommendation: No new nutrition recommendations. Continue current nutrition care plan and orders. Agree with orders. Last recorded weight is 85.2 kg. Bowel Motility: Fecal catheter draining Labs Reviewed:Hgb 7.4, Hct 23, Alb 2.4, Na 132, Cre 0.4 Meds Noted: Lovenox, vancomycin Skin: Unstageable sacrum, unstageable heel Additional Notes: Pt had diverting colostomy yesterday, NPO yesterday. Intakes fair 25-50%. Agree with nutrition orders Will monitor weight labs, skin, oral intake, meds every 3 days.
--- NOTE | 2024-01-01 11:20 | PM.PNGS ---
Progress Note: A&P Assessment and Plan (1) Decubitus ulcer: Qualifiers: Pressure injury location: sacral region Pressure injury stage: stage 4 Qualified Code(s): L89.154 - Pressure ulcer of sacral region, stage 4 Code(s): L89.90 - Pressure ulcer of unspecified site, unspecified stage Status: Acute Assessment and Plan: Continue local wound care and broad spectrum antibiotics at this time. Routine ostomy care Surgically stable for discharge. Will see PRN. (2) Sepsis: Code(s): A41.9 - Sepsis, unspecified organism Status: Acute (3) Acute renal failure: Code(s): N17.9 - Acute kidney failure, unspecified Status: Acute (4) Adult failure to thrive: Code(s): R62.7 - Adult failure to thrive Status: Acute (5) Mobility impaired: Code(s): Z74.09 - Other reduced mobility Status: Acute (6) Encephalopathy: Code(s): G93.40 - Encephalopathy, unspecified Status: Acute Subjective Subjective Date/Time Seen: 01/01/24 11:20 Interval history: Ostomy functioning. Tolerating diet. Exam Const: General: no acute distress Orientation/consciousness: patient oriented x3 GI: Inspection: non-distended, incision (intact with glue) and other (Ostomy pink and functioning--stool and gas in bag) GI Palp: Yes Soft to palpation and Yes Tenderness to palpation present (GI) (incisional) Auscultation: normal bowel sounds Other: Sacral wound with dressing dry and intact Objective Data Vital Signs Vital Signs: Vital Signs - 24 hr 12/31/23 12:00 12/31/23 14:45 12/31/23 15:01 Temperature 98.1 F Pulse Rate 100 Respiratory Rate 16 Blood Pressure 98/50 L Pulse Oximetry 96 Oxygen Delivery Room Air Room Air Fraction of Inspired Oxygen 12/31/23 15:54 12/31/23 12:00 12/31/23 12:00 Temperature 98.0 F Pulse Rate 86 86 Respiratory Rate 18 Blood Pressure 99/49 L Pulse Oximetry 97 Oxygen Delivery Room Air Fraction of Inspired Oxygen 12/31/23 14:00 12/31/23 16:00 12/31/23 16:00 Temperature Pulse Rate 86 98 98 Respiratory Rate 18 Blood Pressure Pulse Oximetry 97 Oxygen Delivery Room Air Fraction of Inspired Oxygen 12/31/23 18:00 12/31/23 20:44 12/31/23 20:00 Temperature 99.2 F Pulse Rate 101 H 103 H 101 H Respiratory Rate 18 Blood Pressure 107/59 L Pulse Oximetry 98 Oxygen Delivery Fraction of Inspired Oxygen 12/31/23 21:57 12/31/23 20:00 01/01/24 00:15 Temperature 99.5 F Pulse Rate 99 104 H Respiratory Rate 18 Blood Pressure 118/64 Pulse Oximetry 98 98 Oxygen Delivery Room Air Fraction of Inspired Oxygen 01/01/24 00:00 01/01/24 00:00 01/01/24 03:57 Temperature 99.1 F Pulse Rate 103 H 101 H Respiratory Rate 20 Blood Pressure 118/65 Pulse Oximetry 98 96 Oxygen Delivery Room Air Fraction of Inspired Oxygen 01/01/24 02:00 01/01/24 04:00 01/01/24 04:00 Temperature Pulse Rate 98 99 Respiratory Rate Blood Pressure Pulse Oximetry 96 Oxygen Delivery Room Air Fraction of Inspired Oxygen 01/01/24 06:00 01/01/24 08:00 Temperature 98 F Pulse Rate 94 104 H Respiratory Rate 20 Blood Pressure 117/54 L Pulse Oximetry 94 Oxygen Delivery Fraction of Inspired Oxygen Intake/Output Intake/Output: Intake & Output 12/29/23 12/30/23 12/31/23 01/01/24 23:59 23:59 23:59 23:59 Intake Total 982 1320 1460 1012 Output Total 1700 2950 1400 500 Balance -718 -2850 60 512 Meds/Results Medications: Active Medications Generic Name Dose Route Start Last Admin Trade Name Freq PRN Reason Stop Dose Admin Acetaminophen 650 mg 12/23/23 19:29 12/27/23 20:29 Acetaminophen Elixir 325 Mg/10.15 Ml Udc PO 650 mg Q4H PRN Administration Mild Pain (1-3) or Fever Hydrocodone Bitart/Acetaminophen 1 tab 12/28/23 08:21 01/01/24 05:29 Hydrocodone/Acetaminophen (*Crx) 5-325 Mg Tablet PO
[2024-01-01 12:29] LABS: Glucose Point of Care 98 mg/dl (65-105)
[2024-01-01] MEDS: SOD HYPOCHLORITE 1/4 STRENGTH 473 ML 1 APPLIC TOPICAL ×2 (14:00→23:28)
[2024-01-01] MEDS: TOLNAFTATE 1% POWDER 45 GM BTL 1 APPLIC TOPICAL ×2 (14:00→23:29)
[2024-01-01] MEDS: COLLAGENASE OINT 30 GM TUBE 1 APPLIC TOPICAL (14:00)
[2024-01-01] MEDS: AMOXICILLIN/CLAVULANATE K 875-125 MG TAB 1 TABLET PO ×2 (15:59→22:16)
[2024-01-01] MEDS: levoFLOXacin 750 MG TABLET PO (16:00)
--- NOTE | 2024-01-01 17:42 | P.PNIM_ITS ---
Progress Note: A&P Assessment and Plan (1) Sepsis: Code(s): A41.9 - Sepsis, unspecified organism Status: Acute Assessment and Plan: Patient appears to have sepsis secondary to decubitus wound which is likely in fected and UTI. There is also component of cellulitis of right foot Urine culture is growing Pseudomonas Blood culture is growing Proteus and Gram-negative bacilli 12/23 repeat blood culture sent Patient received IV fluid bolus in the ER followed by additional bolus in the ICU and now off IV fluid Off vasopressors Continue meropenem DC vancomycin General surgery consult for sacral decubitus wound and patient underwent surgical debridement on 12/23 Patient was also evaluated by Teaching Manager and local wound care was recommended CT does not show any free air and on the exam I do not see any crepitus or free air concerning of Jen's gangrene at this time Local Wound care as per Wound Care Service S/p diverting colostomy continue Meropenem will switch to Cefepime on discharge per culture (2) Adult failure to thrive: Code(s): R62.7 - Adult failure to thrive Status: Acute Assessment and Plan: Consult speech for swallow evaluation Dietitian consult (3) Acute renal failure: Code(s): N17.9 - Acute kidney failure, unspecified Status: Acute Assessment and Plan: Patient presented with acute renal failure likely 2nd dehydration which has progressed to ATN and along with possible rhabdomyolysis Patient received IV fluid bolus and IV fluids were continued. Patient is now producing urine resolved Hyperkalemia resolved s/p give 1 dose of Lokelma and IVF Monitor electrolytes creatinine and urine output CT scan shows bilateral hydroureteronephrosis but no obstructing stone Nephrology and Urology has been consulted (4) Decubitus ulcer: Qualifiers: Pressure injury location: sacral region Pressure injury stage: stage 4 Qualified Code(s): L89.154 - Pressure ulcer of sacral region, stage 4 Code(s): L89.90 - Pressure ulcer of unspecified site, unspecified stage Status: Acute Assessment and Plan: -Continue local wound care and broad spectrum antibiotics at this time. Possibility of repeat debridement if more necrotic tissue develops. Patient overall has very poor prognosis and will never heal from a wound this large. With aggressive wound care, best outlook would be to avoid infections in the wounds and limit recurrent sepsis. -Discussed that continued stool around the wound will only increase the likelihood of infection. Diverting colostomy might be necessary to help control infection. s/p diverting colostomy continue abx as above Appreciate gen surgery input (5) Rhabdomyolysis: Qualifiers: Encounter type: initial encounter Rhabdomyolysis type: traumatic Qualified Code(s): T79.6XXA - Traumatic ischemia of muscle, initial encounter Code(s): M62.82 - Rhabdomyolysis Status: Acute Assessment and Plan: See above (6) Dehydration: Code(s): E86.0 - Dehydration Status: Inactive Assessment and Plan: See above (7) Encephalopathy: Code(s): G93.40 - Encephalopathy, unspecified Status: Acute Assessment and Plan: Likely secondary to uremia and delirium Uremia has improved Head CT was negative for any acute change TSH was normal Monitor (8) Cellulitis: Code(s): L03.90 - Cellulitis, unspecified Status: Acute Assessment and Plan: See above (9) Atrial fibrillation with RVR: C
[2024-01-01 18:03] LABS: Glucose Point of Care 119 mg/dl (65-105)
[2024-01-01 20:05] LABS: Glucose Point of Care 105 mg/dl (65-105)
[2024-01-02] MEDS: AMOXICILLIN/CLAVULANATE K 875-125 MG TAB 1 TABLET PO ×3 (06:08→21:02)
[2024-01-02 06:19] LABS: Basophils Percent Auto 0.2 % (0.2-1.2); Eosinophils Absolute Auto 0.1 K/mm3 (0-0.3); Eosinophils Percent Auto 0.7 % (0-4.4); Hematocrit 25.5 % (37.0-47.0); Hemoglobin 7.7 g/dL (12.0-15.0); Immature Granulocyte Absolute 0.08 K/mm3 (0.00-0.031); Immature Granulocyte Percent A 0.7 % (0-0.5); Lymphocytes Percent Auto 11.6 % (18.3-44.2); Mean Corpuscular HGB Conc 30.2 g/dl (32-36); Mean Corpuscular Hemoglobin 25.5 pg (26-34); Mean Corpuscular Volume 84.4 fl (80-100); Mean Platelet Volume 10.2 fl (7.4-10.4); Monocytes Absolute Auto 0.7 K/mm3 (0.1-0.6); Monocytes Percent Auto 5.6 % (2.6-8.5); Neutrophils Absolute Auto 9.8 K/mm3 (1.3-6.7); Neutrophils Percent Auto 81.2 % (45.5-73.1); Platelet Count Result 402 k/mm3 (150-375); Red Blood Count 3.02 M/mm3 (4.2-5.4); White Blood Count 12.1 K/mm3 (4.5-10.0)
[2024-01-02 06:28] VITALS: BP 119/58; PULSE 71; RESP 16; TEMP 36.6; O2SAT 96
[2024-01-02 06:28] LABS: Lactic Acid Reflex 1.5 mmol/L (0.7-2.0)
[2024-01-02 06:34] LABS: Alanine Aminotransferase 17 U/L (6-35); Albumin Level 2.6 g/dL (3.5-5.1); Alkaline Phosphatase 65 U/L (38-126); Anion Gap 3 mmol/L (4-12); Aspartate Amino Transferase 24 U/L (14-36); Bilirubin,Total 0.7 mg/dL (0.2-1.3); Blood Urea Nitrogen 10 mg/dL (7-17); Calcium 7.9 mg/dL (8.4-10.2); Carbon Dioxide 31 mmol/L (22-30); Chloride 99 mmol/L (98-107); Estimated CRCL calculation 105 ml/min; Estimated Glomerular Filt Rate > 60; Glucose 108 mg/dL (65-110); Magnesium 1.4 mg/dL (1.6-2.3); Potassium 3.8 mmol/L (3.4-5.0); Sodium 133 mmol/L (137-145)
[2024-01-02 07:45] LABS: Glucose Point of Care 112 mg/dl (65-105)
[2024-01-02] MEDS: BENZOCAINE/MENTHOL (*BKC) 18 EA LOZENGE 1 LOZENGE PO (09:53)
[2024-01-02] MEDS: ASPIRIN 325 MG TABLET PO (09:59)
[2024-01-02] MEDS: IRON SUCROSE COMPLEX 400 MG, IRON SUCROSE COMPLEX 100 MG in SODIUM CHLORIDE 0.9% IV 250 ML 78.57 MG IVPB (10:00)
[2024-01-02] MEDS: ENOXAPARIN 40 MG/0.4 ML SYRINGE SUB-Q (10:01)
[2024-01-02] MEDS: COLLAGENASE OINT 30 GM TUBE 1 APPLIC TOPICAL (10:02)
[2024-01-02 11:13] VITALS: BP 105/59
[2024-01-02 11:40] LABS: Glucose Point of Care 113 mg/dl (65-105)
--- NOTE | 2024-01-02 11:47 | PM.IMPN ---
Progress Note: A&P Assessment and Plan (1) Sepsis: Code(s): A41.9 - Sepsis, unspecified organism Status: Acute Assessment and Plan: Patient appears to have sepsis secondary to decubitus wound which is likely infected and UTI. There is also component of cellulitis of right foot Urine culture is growing Pseudomonas Blood culture is growing Proteus and Gram-negative bacilli 12/23 repeat blood culture sent Patient received IV fluid bolus in the ER followed by additional bolus in the ICU and now off IV fluid Off vasopressors Continue meropenem DC vancomycin General surgery consult for sacral decubitus wound and patient underwent surgical debridement on 12/23 Patient was also evaluated by Printed Circuit Board Reworker and local wound care was recommended CT does not show any free air and on the exam I do not see any crepitus or free air concerning of Jen's gangrene at this time Local Wound care as per Wound Care Service S/p diverting colostomy Abx switched to High dose Augmentin and Levaquin to conclude on 12/2623 (2) Adult failure to thrive: Code(s): R62.7 - Adult failure to thrive Status: Acute Assessment and Plan: Consult speech for swallow evaluation Dietitian consult oral intake now markedly improved (3) Acute renal failure: Code(s): N17.9 - Acute kidney failure, unspecified Status: Acute Assessment and Plan: Patient presented with acute renal failure likely 2nd dehydration which has progressed to ATN and along with possible rhabdomyolysis Patient received IV fluid bolus and IV fluids were continued. Patient is now producing urine resolved Hyperkalemia resolved s/p give 1 dose of Lokelma and IVF Monitor electrolytes creatinine and urine output CT scan shows bilateral hydroureteronephrosis but no obstructing stone Nephrology and Urology has been consulted (4) Decubitus ulcer: Qualifiers: Pressure injury location: sacral region Pressure injury stage: stage 4 Qualified Code(s): L89.154 - Pressure ulcer of sacral region, stage 4 Code(s): L89.90 - Pressure ulcer of unspecified site, unspecified stage Status: Acute Assessment and Plan: -Continue local wound care and broad spectrum antibiotics at this time. Possibility of repeat debridement if more necrotic tissue develops. Patient overall has very poor prognosis and will never heal from a wound this large. With aggressive wound care, best outlook would be to avoid infections in the wounds and limit recurrent sepsis. -Discussed that continued stool around the wound will only increase the likelihood of infection. Diverting colostomy might be necessary to help control infection. s/p diverting colostomy continue abx as above Appreciate gen surgery input (5) Rhabdomyolysis: Qualifiers: Encounter type: initial encounter Rhabdomyolysis type: traumatic Qualified Code(s): T79.6XXA - Traumatic ischemia of muscle, initial encounter Code(s): M62.82 - Rhabdomyolysis Status: Acute Assessment and Plan: See above (6) Dehydration: Code(s): E86.0 - Dehydration Status: Inactive Assessment and Plan: resolved now has adequate oral intake (7) Encephalopathy: Code(s): G93.40 - Encephalopathy, unspecified Status: Acute Assessment and Plan: Likely secondary to uremia and delirium Uremia has improved Head CT was negative for any acute change TSH was normal resolved now alert and oriented and carrying on conversations appropriately (8) Cellulitis: Code(s): L03.90 - Cellulitis, unspecified Status: Acute Assessment and Plan: See above (9) Atrial fibrillation with RVR: Code(s): I48.91 - Unspecified atrial fibrillation Status: Acute Assessment and Plan: Patient went to AFib with RVR yesterday likely sepsis. She was started on amiodarone infusion and Converted to sinus rhythm. Now off of amiodarone. Echocar
[2024-01-02] MEDS: MORPHINE SULFATE (*CRX) 2 MG/ML INJ IV PUSH (14:00)
[2024-01-02] MEDS: levoFLOXacin 750 MG TABLET PO (14:01)
[2024-01-02] MEDS: MAGNESIUM SULFATE 3GM/D5W100ML 3 GM/100 ML BAG IVPB (14:13)
[2024-01-02] MEDS: TOLNAFTATE 1% POWDER 45 GM BTL 1 APPLIC TOPICAL ×2 (15:00→21:01)
[2024-01-02] MEDS: SOD HYPOCHLORITE 1/4 STRENGTH 473 ML 1 APPLIC TOPICAL ×2 (15:00→21:02)
[2024-01-02] MEDS: SODIUM CHLORIDE 0.9% IV 100 ML 25 ML (16:20)
[2024-01-02 16:32] VITALS: BP 105/62; PULSE 108; RESP 12; TEMP 36.9; O2SAT 96
[2024-01-02 16:59] LABS: Glucose Point of Care 92 mg/dl (65-105)
[2024-01-02 17:26] LABS: IFOB Positive Control Positive; Immunochemical Fecal Occult Bl Positive (N)
[2024-01-02 20:25] LABS: Glucose Point of Care 126 mg/dl (65-105)
[2024-01-02 21:09] VITALS: BP 115/51; PULSE 66; RESP 17; TEMP 36.7; O2SAT 96
[2024-01-02 21:53] VITALS: O2SAT 96
[2024-01-03] MEDS: HYDROcodone/acetaminophen (*CRX) 5-325 MG TABLET 1 TAB PO ×3 (01:02→12:45)
[2024-01-03] MEDS: MORPHINE SULFATE (*CRX) 2 MG/ML INJ IV PUSH (04:52)
[2024-01-03 05:49] VITALS: BP 105/48; PULSE 94; RESP 12; TEMP 36.6; O2SAT 95
[2024-01-03] MEDS: AMOXICILLIN/CLAVULANATE K 875-125 MG TAB 1 TABLET PO ×3 (06:37→20:28)
[2024-01-03 08:00] VITALS: BP 110/38; PULSE 86; RESP 18; TEMP 37.2; O2SAT 100
[2024-01-03 08:08] LABS: Glucose Point of Care 90 mg/dl (65-105)
[2024-01-03] MEDS: ASPIRIN 325 MG TABLET PO (09:26)
[2024-01-03] MEDS: BENZOCAINE/MENTHOL (*BKC) 18 EA LOZENGE 1 LOZENGE PO (09:26)
[2024-01-03] MEDS: SOD HYPOCHLORITE 1/4 STRENGTH 473 ML 1 APPLIC TOPICAL ×2 (09:27→20:30)
[2024-01-03] MEDS: COLLAGENASE OINT 30 GM TUBE 1 APPLIC TOPICAL (09:27)
[2024-01-03] MEDS: TOLNAFTATE 1% POWDER 45 GM BTL 1 APPLIC TOPICAL ×2 (09:27→20:29)
[2024-01-03] MEDS: ENOXAPARIN 40 MG/0.4 ML SYRINGE SUB-Q (09:40)
[2024-01-03 10:26] LABS: Basophils Percent Auto 0.3 % (0.2-1.2); Eosinophils Absolute Auto 0.2 K/mm3 (0-0.3); Eosinophils Percent Auto 1.7 % (0-4.4); Hematocrit 25.3 % (37.0-47.0); Hemoglobin 7.7 g/dL (12.0-15.0); Immature Granulocyte Absolute 0.05 K/mm3 (0.00-0.031); Immature Granulocyte Percent A 0.5 % (0-0.5); Lymphocytes Absolute Auto 1.43 K/mm3 (0.9-3.2); Mean Corpuscular HGB Conc 30.4 g/dl (32-36); Mean Corpuscular Hemoglobin 26.1 pg (26-34); Mean Corpuscular Volume 85.8 fl (80-100); Mean Platelet Volume 9.4 fl (7.4-10.4); Monocytes Absolute Auto 0.6 K/mm3 (0.1-0.6); Monocytes Percent Auto 6.3 % (2.6-8.5); Neutrophils Absolute Auto 7.2 K/mm3 (1.3-6.7); Neutrophils Percent Auto 76.2 % (45.5-73.1); Platelet Count Result 371 k/mm3 (150-375); Red Blood Count 2.95 M/mm3 (4.2-5.4); Red Cell Distribution Width 19.4 % (11.5-14.5); White Blood Count 9.5 K/mm3 (4.5-10.0)
[2024-01-03 10:38] LABS: Alanine Aminotransferase 16 U/L (6-35); Albumin Level 2.5 g/dL (3.5-5.1); Alkaline Phosphatase 61 U/L (38-126); Anion Gap 5 mmol/L (4-12); Aspartate Amino Transferase 21 U/L (14-36); Bilirubin,Total 0.5 mg/dL (0.2-1.3); Blood Urea Nitrogen 8 mg/dL (7-17); Carbon Dioxide 28 mmol/L (22-30); Chloride 103 mmol/L (98-107); Estimated CRCL calculation 103 ml/min; Estimated Glomerular Filt Rate > 60; Glucose 117 mg/dL (65-110); Potassium 3.7 mmol/L (3.4-5.0); Sodium 136 mmol/L (137-145)
[2024-01-03 12:01] LABS: Glucose Point of Care 121 mg/dl (65-105)
--- NOTE | 2024-01-03 15:26 | P.PNIM_ITS ---
Progress Note: A&P Assessment and Plan (1) Sepsis: Code(s): A41.9 - Sepsis, unspecified organism Status: Acute Assessment and Plan: Patient appears to have sepsis secondary to decubitus wound which is likely in fected and UTI. There is also component of cellulitis of right foot Urine culture is growing Pseudomonas Blood culture is growing Proteus and Gram-negative bacilli 12/23 repeat blood culture sent Patient received IV fluid bolus in the ER followed by additional bolus in the ICU and now off IV fluid Off vasopressors Continue meropenem DC vancomycin General surgery consult for sacral decubitus wound and patient underwent surgical debridement on 12/23 Patient was also evaluated by Glass Bead Maker and local wound care was recommended CT does not show any free air and on the exam I do not see any crepitus or free air concerning of Jen's gangrene at this time Local Wound care as per Wound Care Service S/p diverting colostomy Abx switched to High dose Augmentin and Levaquin to conclude on 01/07/24 (2) Adult failure to thrive: Code(s): R62.7 - Adult failure to thrive Status: Acute Assessment and Plan: Consult speech for swallow evaluation Dietitian consult oral intake now markedly improved (3) Acute renal failure: Code(s): N17.9 - Acute kidney failure, unspecified Status: Acute Assessment and Plan: Patient presented with acute renal failure likely 2nd dehydration which has progressed to ATN and along with possible rhabdomyolysis Patient received IV fluid bolus and IV fluids were continued. Patient is now producing urine resolved Hyperkalemia resolved s/p give 1 dose of Lokelma and IVF Monitor electrolytes creatinine and urine output CT scan shows bilateral hydroureteronephrosis but no obstructing stone Nephrology and Urology has been consulted (4) Decubitus ulcer: Qualifiers: Pressure injury location: sacral region Pressure injury stage: stage 4 Qualified Code(s): L89.154 - Pressure ulcer of sacral region, stage 4 Code(s): L89.90 - Pressure ulcer of unspecified site, unspecified stage Status: Acute Assessment and Plan: -Continue local wound care and broad spectrum antibiotics at this time. Possibility of repeat debridement if more necrotic tissue develops. Patient overall has very poor prognosis and will never heal from a wound this large. With aggressive wound care, best outlook would be to avoid infections in the wounds and limit recurrent sepsis. -Discussed that continued stool around the wound will only increase the likelihood of infection. Diverting colostomy might be necessary to help control infection. s/p diverting colostomy continue abx as above Appreciate gen surgery input (5) Rhabdomyolysis: Qualifiers: Encounter type: initial encounter Rhabdomyolysis type: traumatic Qualified Code(s): T79.6XXA - Traumatic ischemia of muscle, initial encounter Code(s): M62.82 - Rhabdomyolysis Status: Acute Assessment and Plan: See above (6) Dehydration: Code(s): E86.0 - Dehydration Status: Inactive Assessment and Plan: resolved now has adequate oral intake (7) Encephalopathy: Code(s): G93.40 - Encephalopathy, unspecified Status: Acute Assessment and Plan: Likely secondary to uremia and delirium Uremia has improved Head CT was negative for any acute change TSH was normal resolved now alert and oriented and carrying on conversations appropriately (8) Cellulitis: Code(s): L03.
[2024-01-03 16:00] VITALS: BP 110/56; PULSE 94; RESP 18; TEMP 36.6; O2SAT 98
[2024-01-03 16:12] LABS: Glucose Point of Care 146 mg/dl (65-105)
[2024-01-03] MEDS: levoFLOXacin 750 MG TABLET PO (16:50)
[2024-01-03 20:17] LABS: Glucose Point of Care 112 mg/dl (65-105)
[2024-01-03 21:26] VITALS: BP 104/49; PULSE 66; RESP 12; TEMP 36.1; O2SAT 97
[2024-01-03 21:29] VITALS: O2SAT 97
[2024-01-04 00:33] LABS: Glucose Point of Care 98 mg/dl (65-105)
[2024-01-04] MEDS: MORPHINE SULFATE (*CRX) 2 MG/ML INJ IV PUSH (03:35)
[2024-01-04 05:30] VITALS: BP 138/77; PULSE 91; RESP 16; TEMP 36.8; O2SAT 97
[2024-01-04 06:30] LABS: Basophils Percent Auto 0.3 % (0.2-1.2); Eosinophils Absolute Auto 0.2 K/mm3 (0-0.3); Eosinophils Percent Auto 2.4 % (0-4.4); Hematocrit 24.1 % (37.0-47.0); Hemoglobin 7.5 g/dL (12.0-15.0); Immature Granulocyte Absolute 0.09 K/mm3 (0.00-0.031); Immature Granulocyte Percent A 0.9 % (0-0.5); Lymphocytes Absolute Auto 1.46 K/mm3 (0.9-3.2); Lymphocytes Percent Auto 14.7 % (18.3-44.2); Mean Corpuscular HGB Conc 31.1 g/dl (32-36); Mean Corpuscular Hemoglobin 26.6 pg (26-34); Mean Corpuscular Volume 85.5 fl (80-100); Mean Platelet Volume 9.6 fl (7.4-10.4); Monocytes Absolute Auto 0.8 K/mm3 (0.1-0.6); Monocytes Percent Auto 8.4 % (2.6-8.5); Neutrophils Absolute Auto 7.3 K/mm3 (1.3-6.7); Neutrophils Percent Auto 73.3 % (45.5-73.1); Platelet Count Result 427 k/mm3 (150-375); Red Blood Count 2.82 M/mm3 (4.2-5.4); Red Cell Distribution Width 19.8 % (11.5-14.5)
[2024-01-04] MEDS: AMOXICILLIN/CLAVULANATE K 875-125 MG TAB 1 TABLET PO ×3 (06:35→21:01)
[2024-01-04 06:46] LABS: Alanine Aminotransferase 16 U/L (6-35); Albumin Level 2.6 g/dL (3.5-5.1); Alkaline Phosphatase 64 U/L (38-126); Anion Gap 5 mmol/L (4-12); Aspartate Amino Transferase 19 U/L (14-36); Bilirubin,Total 0.6 mg/dL (0.2-1.3); Blood Urea Nitrogen 9 mg/dL (7-17); Calcium 7.9 mg/dL (8.4-10.2); Carbon Dioxide 26 mmol/L (22-30); Chloride 102 mmol/L (98-107); Estimated CRCL calculation 99 ml/min; Estimated Glomerular Filt Rate > 60; Glucose 90 mg/dL (65-110); Magnesium 1.6 mg/dL (1.6-2.3); Potassium 3.8 mmol/L (3.4-5.0); Sodium 133 mmol/L (137-145)
[2024-01-04 07:49] LABS: Glucose Point of Care 97 mg/dl (65-105)
[2024-01-04 08:00] VITALS: BP 112/61; PULSE 95; RESP 18; TEMP 36.5; O2SAT 98
[2024-01-04] MEDS: ASPIRIN 325 MG TABLET PO (09:04)
[2024-01-04] MEDS: ENOXAPARIN 40 MG/0.4 ML SYRINGE SUB-Q (09:04)
[2024-01-04] MEDS: COLLAGENASE OINT 30 GM TUBE 1 APPLIC TOPICAL (09:06)
[2024-01-04] MEDS: TOLNAFTATE 1% POWDER 45 GM BTL 1 APPLIC TOPICAL ×2 (09:06→21:02)
[2024-01-04] MEDS: SOD HYPOCHLORITE 1/4 STRENGTH 473 ML 1 APPLIC TOPICAL ×2 (09:06→21:02)
--- NOTE | 2024-01-04 10:24 | PC.NURSE ---
On 01/04/24, the student, [Krista Sahni], provided care and completed [employer] documentation on this patient. I have reviewed the student's documentation and agree with the findings.
--- NOTE | 2024-01-04 11:09 | PCPTNOTE ---
Patient declined PT at this time stating she felt sick earlier this morning and wants to keep things calm for a while before I do therapy. PT will continue to follow per plan of care.
--- NOTE | 2024-01-04 11:40 | PC.NURSE ---
On 01/04/24, the student, [Soraida Tobar], provided care and completed [facility] documentation on this patient. I have reviewed the student's documentation and agree with the findings.
--- NOTE | 2024-01-04 11:45 | PM.IMPN ---
Progress Note: A&P Assessment and Plan (1) Sepsis: Code(s): A41.9 - Sepsis, unspecified organism Status: Acute Assessment and Plan: Patient appears to have sepsis secondary to decubitus wound which is likely infected and UTI. There is also component of cellulitis of right foot Urine culture is growing Pseudomonas Blood culture is growing Proteus and Gram-negative bacilli 12/23 repeat blood culture sent Patient received IV fluid bolus in the ER followed by additional bolus in the ICU and now off IV fluid Off vasopressors Continue meropenem DC vancomycin General surgery consult for sacral decubitus wound and patient underwent surgical debridement on 12/23 Patient was also evaluated by Pattern And Chain Maker and local wound care was recommended CT does not show any free air and on the exam I do not see any crepitus or free air concerning of Jen's gangrene at this time Local Wound care as per Wound Care Service S/p diverting colostomy Abx switched to High dose Augmentin and Levaquin to conclude on 01/07/24 (2) Adult failure to thrive: Code(s): R62.7 - Adult failure to thrive Status: Acute Assessment and Plan: Reolved Consult speech for swallow evaluation Dietitian consult oral intake now at baseline (3) Acute renal failure: Code(s): N17.9 - Acute kidney failure, unspecified Status: Acute Assessment and Plan: Patient presented with acute renal failure likely 2nd dehydration which has progressed to ATN and along with possible rhabdomyolysis Patient received IV fluid bolus and IV fluids were continued. Patient is now producing urine resolved Hyperkalemia resolved s/p give 1 dose of Lokelma and IVF Monitor electrolytes creatinine and urine output CT scan shows bilateral hydroureteronephrosis but no obstructing stone Nephrology and Urology has been consulted (4) Decubitus ulcer: Qualifiers: Pressure injury location: sacral region Pressure injury stage: stage 4 Qualified Code(s): L89.154 - Pressure ulcer of sacral region, stage 4 Code(s): L89.90 - Pressure ulcer of unspecified site, unspecified stage Status: Acute Assessment and Plan: -Continue local wound care and broad spectrum antibiotics at this time. Possibility of repeat debridement if more necrotic tissue develops. Patient overall has very poor prognosis and will never heal from a wound this large. With aggressive wound care, best outlook would be to avoid infections in the wounds and limit recurrent sepsis. -Discussed that continued stool around the wound will only increase the likelihood of infection. Diverting colostomy might be necessary to help control infection. s/p diverting colostomy continue abx as above Appreciate gen surgery input continue wound care (5) Rhabdomyolysis: Qualifiers: Encounter type: initial encounter Rhabdomyolysis type: traumatic Qualified Code(s): T79.6XXA - Traumatic ischemia of muscle, initial encounter Code(s): M62.82 - Rhabdomyolysis Status: Acute Assessment and Plan: See above (6) Dehydration: Code(s): E86.0 - Dehydration Status: Inactive Assessment and Plan: resolved now has adequate oral intake (7) Encephalopathy: Code(s): G93.40 - Encephalopathy, unspecified Status: Acute Assessment and Plan: Likely secondary to uremia and delirium Uremia has improved Head CT was negative for any acute change TSH was normal resolved now alert and oriented and carrying on conversations appropriately (8) Cellulitis: Code(s): L03.90 - Cellulitis, unspecified Status: Acute Assessment and Plan: See above (9) Atrial fibrillation with RVR: Code(s): I48.91 - Unspecified atrial fibrillation Status: Acute Assessment and Plan: Patient went to AFib with RVR yesterday likely sepsis. She was started on amiodarone infusion and Converted to sinus rhythm. Now o
[2024-01-04 11:49] LABS: Glucose Point of Care 100 mg/dl (65-105)
--- NOTE | 2024-01-04 12:33 | PC.NURSE ---
On 01/04/24, the student, [Krista Sahni], provided care and completed [facility] documentation on this patient. I have reviewed the student's documentation and agree with the findings.
[2024-01-04 14:24] VITALS: O2SAT 98
[2024-01-04] MEDS: levoFLOXacin 750 MG TABLET PO (14:30)
[2024-01-04 16:00] VITALS: BP 134/70; PULSE 83; RESP 16; TEMP 36.6; O2SAT 100
[2024-01-04 16:41] LABS: Glucose Point of Care 158 mg/dl (65-105)
[2024-01-04 19:58] LABS: Glucose Point of Care 126 mg/dl (65-105)
[2024-01-04 20:30] VITALS: BP 104/64; PULSE 118; RESP 18; TEMP 37.3; O2SAT 98
[2024-01-04] MEDS: MELATONIN 5 MG TABLET PO (21:01)
[2024-01-04] MEDS: HYDROcodone/acetaminophen (*CRX) 5-325 MG TABLET 1 TAB PO (21:01)
[2024-01-05] MEDS: HYDROcodone/acetaminophen (*CRX) 5-325 MG TABLET 1 TAB PO ×2 (01:25→08:21)
[2024-01-05 05:29] VITALS: BP 101/52; PULSE 85; RESP 16; TEMP 37.1; O2SAT 97
[2024-01-05] MEDS: AMOXICILLIN/CLAVULANATE K 875-125 MG TAB 1 TABLET PO (06:36)
[2024-01-05 06:37] LABS: Basophils Percent Auto 0.3 % (0.2-1.2); Eosinophils Absolute Auto 0.3 K/mm3 (0-0.3); Eosinophils Percent Auto 3.3 % (0-4.4); Hematocrit 25.3 % (37.0-47.0); Hemoglobin 7.6 g/dL (12.0-15.0); Immature Granulocyte Absolute 0.04 K/mm3 (0.00-0.031); Immature Granulocyte Percent A 0.5 % (0-0.5); Lymphocytes Absolute Auto 1.58 K/mm3 (0.9-3.2); Lymphocytes Percent Auto 21.2 % (18.3-44.2); Mean Corpuscular Volume 86.6 fl (80-100); Mean Platelet Volume 9.7 fl (7.4-10.4); Monocytes Absolute Auto 0.8 K/mm3 (0.1-0.6); Monocytes Percent Auto 11.1 % (2.6-8.5); Neutrophils Absolute Auto 4.8 K/mm3 (1.3-6.7); Neutrophils Percent Auto 63.6 % (45.5-73.1); Platelet Count Result 452 k/mm3 (150-375); Red Blood Count 2.92 M/mm3 (4.2-5.4); Red Cell Distribution Width 20.5 % (11.5-14.5); White Blood Count 7.5 K/mm3 (4.5-10.0)
[2024-01-05 06:48] LABS: Lactic Acid Reflex 0.8 mmol/L (0.7-2.0)
[2024-01-05 06:49] LABS: Alanine Aminotransferase 14 U/L (6-35); Albumin Level 2.6 g/dL (3.5-5.1); Alkaline Phosphatase 57 U/L (38-126); Anion Gap 3 mmol/L (4-12); Aspartate Amino Transferase 19 U/L (14-36); Bilirubin,Total 0.6 mg/dL (0.2-1.3); Blood Urea Nitrogen 8 mg/dL (7-17); Calcium 8.2 mg/dL (8.4-10.2); Carbon Dioxide 31 mmol/L (22-30); Chloride 100 mmol/L (98-107); Estimated CRCL calculation 99 ml/min; Estimated Glomerular Filt Rate > 60; Glucose 94 mg/dL (65-110); Magnesium 1.6 mg/dL (1.6-2.3); Sodium 134 mmol/L (137-145)
[2024-01-05 07:53] LABS: Glucose Point of Care 91 mg/dl (65-105)
[2024-01-05 08:00] VITALS: PULSE 85; RESP 16; O2SAT 97
[2024-01-05] MEDS: ENOXAPARIN 40 MG/0.4 ML SYRINGE SUB-Q (08:21)
[2024-01-05] MEDS: ASPIRIN 325 MG TABLET PO (08:21)
[2024-01-05] MEDS: TOLNAFTATE 1% POWDER 45 GM BTL 1 APPLIC TOPICAL (08:22)
[2024-01-05] MEDS: SOD HYPOCHLORITE 1/4 STRENGTH 473 ML 1 APPLIC TOPICAL (08:23)
[2024-01-05] MEDS: COLLAGENASE OINT 30 GM TUBE 1 APPLIC TOPICAL (08:23)
[2024-01-05 11:44] LABS: Glucose Point of Care 140 mg/dl (65-105)
[2024-01-05 14:00] VITALS: BP 99/57; PULSE 94; RESP 18; TEMP 36.8; O2SAT 99
--- NOTE | 2024-01-05 14:07 | PM.DS ---
DS: Admitting Diagnosis Discharge Date 01/05/2024 Admitting Diagnosis failure to thrive DS: Discharge Diagnosis Discharge Diagnosis (1) Adult failure to thrive: Code(s): R62.7 - Adult failure to thrive Status: Acute (2) Acute hyperkalemia: Code(s): E87.5 - Hyperkalemia Status: Acute (3) Sepsis: Code(s): A41.9 - Sepsis, unspecified organism Status: Acute (4) Acute renal failure: Code(s): N17.9 - Acute kidney failure, unspecified Status: Acute (5) Atrial fibrillation with RVR: Code(s): I48.91 - Unspecified atrial fibrillation Status: Acute (6) CHRISTIANA (acute kidney injury): Code(s): N17.9 - Acute kidney failure, unspecified Status: Acute DS: Summary Hospital Course Hospital Course: Ptient presented to ER with leukocytosis of 44.5, hyperkalemia at 6.2, sodium of 125 and a chloride 90, anion gap metabolic acidosis with an anion gap of 22 and a bicarb of 13. Significant BUN of a 140 elevated creatinine. Hepatic function panel slightly elevated. Negative troponin, elevated CRP. Urinalysis revealed white blood cells, leukocyte esterase, bacteria consistent with urinary tract infection. Her Guerrier catheter was draining significant tea-colored urine likely from the uremia.Patient was given IV fluid bolus started on IV antibiotics and admitted to ICU. Nephrology and General surgery were consulted. Patient appears to have sepsis secondary to decubitus wound which is likely infected and UTI. There is also component of cellulitis of right foot Urine culture is growing Pseudomonas Blood culture is growing Proteus and Gram-negative bacilli 12/23 repeat blood culture sent Patient received IV fluid bolus in the ER followed by additional bolus in the ICU and now off IV fluid Off vasopressors Continue meropenem DC vancomycin General surgery consult for sacral decubitus wound and patient underwent surgical debridement on 12/23 Patient was also evaluated by Road Train Driver and local wound care was recommended CT does not show any free air and on the exam I do not see any crepitus or free air concerning of Jen's gangrene at this time Local Wound care as per Wound Care Service S/p diverting colostomy Abx switched to High dose Augmentin and Levaquin to conclude on 01/07/24 Patient has completed course of abx and there is no growth on repeat blood culture, patient is clinically stable and wants to go home. Time Spent with Patient Time attestation: Total time spent providing and/or coordinating discharge services: Exam Narrative: General: Pt is alert awake and in NAD. Malnourished old female Lungs/Chest: Trachea central Clear BS B/L, No crackles or wheezing. Cardiac: Tachycardia. Normal S1 S2. No murmurs Abdomen: Normal bowel sounds.. Soft. NT. ND., Colostomy in place Extremities: Bilateral pitting edema present. Scar from surgery present on the right leg. : Guerrier in place with clear urine Neurologic: Follows commands. Moves all 4 extremities see much more awake as compared to yesterday. PERRL AO x2 Skin: Patient was examined with female system support analyst, patient's nurse, wound care nurse. Patient has redness of skin of both feet with warmth right more than left. There are deep tissue injuries on both feet. There is an open wound on left heel which is stage III with some necrotic area but no discharge or purulence. Patient has a wound in the right inguinal fold extending down to perineum. There appears to be necrosis of labia on the right side. The whole perineum is macerated and foul-smelling. Guerrier is in place. There is a deep tissue injury to the right posterior aspect of upper arm. Patient has a large lumbosacral decubitus wound with necrotic area which extends into perineum. HEENT: Dry oral mucosa DS: Data Data Completed and Pending Labs on day of discharge: Labs from last 24 hours 01/05/24 01/05/24 01/05/24 11:39 07:47 06:30 WBC 7.5 RBC 2.92 L
== END 2024-01-05 14:40 | DRG 853 ==
LOC: ANHED 12-22 03:07 → ANHICU 12-22 03:26 → ANHIMU 12-26 05:51 → ANH3MEDSUR 01-01 18:41
PROVIDERS: General Practice; Internal Medicine; Internal Medicine Nephrology; Surgery; Admitting Provider Internal Medicine; Emergency Provider Student in an Organized Health Care Education/Training Program; PCP Internal Medicine; Visit Provider Family Medicine
PROC: 0KBP0ZZ Excision of Left Hip Muscle, Open Approach (ICD-10-PCS; principal; 2023-12-24 15:30)
PROC: 0D1N0Z4 Bypass Sigmoid Colon to Cutaneous, Open Approach (ICD-10-PCS; CPT 49000; principal; 2023-12-30 13:00)
DX: A41.9 Sepsis, unspecified organism (principal); E43 Unspecified severe protein-calorie malnutrition; L89.154 Pressure ulcer of sacral region, stage 4; L89.623 Pressure ulcer of left heel, stage 3; L89.893 Pressure ulcer of other site, stage 3; N17.0 Acute kidney failure with tubular necrosis; L03.115 Cellulitis of right lower limb; M62.82 Rhabdomyolysis; G93.49 Other encephalopathy; N13.6 Pyonephrosis; L89.022 Pressure ulcer of left elbow, stage 2; L89.012 Pressure ulcer of right elbow, stage 2; B96.5 Pseudomonas (aeruginosa) (mallei) (pseudomallei) as the cause of diseases classified elsewhere; B96.4 Proteus (mirabilis) (morganii) as the cause of diseases classified elsewhere; K80.20 Calculus of gallbladder without cholecystitis without obstruction; I48.91 Unspecified atrial fibrillation; E87.5 Hyperkalemia; R62.7 Adult failure to thrive; D50.9 Iron deficiency anemia, unspecified; N76.3 Subacute and chronic vulvitis; Z68.27 Body mass index [BMI] 27.0-27.9, adult; E86.0 Dehydration; Z98.1 Arthrodesis status; Z86.16 Personal history of COVID-19
CPT/HCPCS: 36415; 70450; 71045; 73630; 74176; 80048; 80053; 80202; 81001; 81050; 82274; 82550; 82570; 82728; 82948; 83540; 83550; 83605; 83735; 84100; 84132; 84156; 84300; 84443; 84484; 84540; 85025; 85027; 85610; 85730; 85999; 86140; 86706; 86850; 86900; 86901; 87040; 87070; 87077; 87086; 87088; 87186; 87205; 87340; 87493; 87641; 92610; 93005; 96361; 96365; 96375; 97110; 97162; 97164; 97166; 97167; 97530; 99291; A9270; C1751; C8929; J0282; J0330; J0612; J0613; J0692; J1100; J1650; J1756; J1815; J2185; J2250; J2270; J2371; J2405; J2704; J3010; J3370; J3475; J3480; J7030; J7040; J7050; J7060; J7070; J7120; P9041; P9047; Q9957

== ENCOUNTER 2024-03-27 23:15 | Inpatient (IN) | payer MEDICARE, MEDICAID, SELFPAY ==
--- NOTE | ~2024-03-27 | XR_ITS ---
Portable chest x-ray Comparison: 12/23/2023 Clinical History: Infected wound Findings: There is probable left basilar hazy airspace disease. Right lung clear. Cardiomediastinal silhouette is stable. Bones and soft tissues are unremarkable. Impression: Left basilar atelectasis versus pneumonia. Correlate clinically. Reviewed, dictated and finalized at [facility]. CIATE APPLICATION DEVELOPER Impression: Left basilar atelectasis versus pneumonia. Correlate clinically.
--- NOTE | ~2024-03-27 | XR_ITS ---
Portable chest x-ray Comparison: 03/28/2024 Clinical History: Sepsis Findings: Small left pleural effusion present. Probable COPD pattern or other chronic interstitial d isease. Cardiomediastinal silhouette is stable. Bones and soft tissues are unremarkable. Impression: COPD and/or chronic interstitial disease. Small left pleural effusion. Reviewed, dictated and finalized at [facility]. R RESOURCE ENGINEER Impression: COPD and/or chronic interstitial disease. Small left pleural effusion.
--- NOTE | ~2024-03-27 | CT_ITS ---
EXAMINATION: CT chest abdomen pelvis wo con DATE: 03/28/2024 11:17 INDICATION: Pneumonia TECHNIQUE: Computed tomography (CT) of the chest, abdomen, and pelvis was performed without intraveno us contrast. Automated exposure control and iterative reconstruction technique were employed. The dos e-length product was 895.36 mGy-cm. COMPARISON: None FINDINGS: CHEST CT: There are small bilateral posterior layering pleural effusions with dependent atelectasis in the bila teral lower lobes. 11 x 6 mm pleural-based nodule at the lateral right lower lobe. Calcified nodules in the right lower lobe consistent with old granulomatous disease. Heart size is normal. Atherosclero tic coronary artery calcific location. Aortic valve location. No pericardial effusion. No pathologica lly enlarged thoracic lymphadenopathy. Moderate to severe thoracic and severe lower cervical spondylo sis with completely visualized instrumentation for lower cervical posterior spinal fusion. ABDOMEN/PELVIS CT: Calcified gallstone within the decompressed gallbladder. Liver, spleen, pancreas, bilateral adrenal g lands and bilateral kidneys are normal. There is subtle increased density of the urine in the renal p elvises sees and surrounding a Guerrier catheter in the bladder which could represent excreted contrast. There is a left paraumbilical end colostomy with long Bush's pouch. No bowel obstruction. Uterus and bilateral adnexa are unremarkable. No abscess or free intraperitoneal gas or fluid. There is a la rge decubitus ulcer posterior overlying the right side of the sacrum and the right posterior iliac sp ine with osteophytes at the inferior sacrum consistent with osteomyelitis. 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 Mild lumbar dextroscoliosis with severe spondylosis. IMPRESSION: 1. Significant interval increase in a now large right sacral decubitus ulcer with osteomyelitis at th e inferior sacrum. 2. Interval left paraumbilical end colostomy with Buhs's pouch. 3. Very small bilateral pleural effusions with dependent atelectasis in the bilateral lower lobes. 4. Indeterminate 11 x 6 mm right lower lobe pulmonary nodule. Recommend malacia with any prior outsid e imaging. If unavailable would recommend 3 month follow-up low-dose noncontrast chest CT or PET/CT f or further evaluation. 5. Cholelithiasis. 6. High attenuation fluid within the bladder and bilateral renal collecting systems suggesting excret ed IV contrast with differential including hematuria. Correlate with clinical history and urinalysis. Reviewed, dictated and finalized at location A. UNICATIONS TECHNICIAN IMPRESSION: 1. Significant interval increase in a now large right sacral decubitus ulcer wi th osteomyelitis at the inferior sacrum. 2. 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 3. Very small bilateral pleural effusions with dependent atelectasis in the ibrahima ateral lower lobes. 4. Indeterminate 11 x 6 mm right lower lobe pulmonary nodule. Recommend malacia with any prior outside imaging. If unavailable would recommend 3 month follow- up low-dose noncontrast chest CT or PET/CT for further evaluation. 5. Cholelithiasis. 6. High attenuation fluid within the bladder and bilateral renal collecting sys tems suggesting excreted IV contrast with differential including hematuria. Cor relate with clinical history and urinalysis.
[2024-03-27 23:27] VITALS: BMI 25.4
--- NOTE | 2024-03-27 23:28 | ECG_ITS ---
Test Date: 2024-03-27 23:31:03 Measurements Intervals [place] Rate: 136 P: 0 KS: 0 QRS: 48 QRSD: 79 T: 53 QT: 278 QTc: 418 Interpretive Statements ATRIAL FIBRILLATION WITH RAPID VENTRICULAR RESPONSE ABNORMAL RHYTHM ECG WARNING: DATA QUALITY MAY AFFECT INTERPRETATION Compared to ECG 12/24/2023 02:54:17 Sinus rhythm no longer present Electronically Signed On 03-28-2024 12:02:21 NEWSPAPER EDITOR MANAGING by Guillermo Delaney M.D.
[2024-03-28] VITALS (19 sets, daily range): BP systolic 93–147; BP diastolic 56–88; PULSE 98–140; RESP 16–25; TEMP 36.4–37.3; O2SAT 93–100; BMI 22.3
--- NOTE | 2024-03-28 | ECHO_ITS ---
Patient Info Name: Aidee Domínguez Age: 78 years : 1945 Gender: Female Ht: 65 in Wt: 134 lbs BSA: 1.67 m2 HR: 101 bpm BP: 107 / 64 mmHg Technical Quality: Fair Exam Date: 03/28/2024 1:46 PM Exam Location: Echo Lab Patient Status: Inpatient Admit Date: 03/28/2024 Staff Ordering Physician: Flavio Gaytan MD Quantometer Operator: Griselda Torrez RDCS Attending Provider: Jersey Funez MD Referring Physician: Lucila PATEL; Exam Type: CA echo doppler color flow Study Info Indications - NEW ATRIAL FIBRILLATION Complete two-dimensional, color flow and Doppler transthoracic echocardiogram is performed. Summary 1. Complete two-dimensional, color flow and Doppler transthoracic echocardiogram is performed. 2. Left ventricular systolic function is normal, estimated at 65-70%. 3. The left ventricular diastolic function is abnormal. 4. There is no increased left ventricular wall thickness. 5. Left atrial chamber dimension is normal. 6. There is mild tricuspid valve regurgitation. 7. Mild pulmonary hypertension, estimated pulmonary arterial systolic pressure is 41 mmHg. 8. There is mild aortic valve calcification. Left Ventricle Left ventricular chamber dimension is normal. Left ventricular systolic function is normal, estimated at 65-70%. There is no increased left ventricular wall thickness. Left ventricular septal wall motion is normal. The left ventricular diastolic function is abnormal. Right Ventricle Right ventricular chamber dimension is normal. Right ventricular systolic function is normal. Left Atria Left atrial chamber dimension is normal. Right Atria Right atrial chamber dimension is normal. Aortic Valve The aortic valve is not well visualized. There is no aortic valve stenosis. There is no aortic valve regurgitation. There is mild aortic valve calcification. Pulmonic Valve The pulmonic valve is normal. There is no pulmonic valve stenosis. There is no pulmonic regurgitation. Mitral Valve The mitral valve has normal leaflets. There is no mitral valve stenosis. There is no mitral valve regurgitation. Tricuspid Valve The tricuspid valve leaflets are normal. There is no significant tricuspid valve stenosis. There is mild tricuspid valve regurgitation. Mild pulmonary hypertension, estimated pulmonary arterial systolic pressure is 41 mmHg. Pericardium/Pleural The pericardium appears normal. There is no pericardial effusion. Inferior Vena Cava Normal inferior vena cava with >50% collapse upon inspiration consistent with Empty right atrial pressure, 5 mmHg. Aorta The aortic root size at the sinus of Valsalva is normal. The prox ascending aorta size is normal. Left Ventricular Outflow Tract Name Value Normal LVOT 2D LVOT Diameter 1.9 cm LVOT Doppler LVOT Peak Gradient 9 mmHg LVOT Mean Gradient 5 mmHg LVOT VTI 29 cm LVOT VTI/AV VTI Ratio 0.9 LVOT Stroke Volume 72 ml LVOT CO 10.6 l/min LVOT CI 6.3 l/min/m2 Pulmonic Valve Name Value Normal RVOT Doppler RVOT Peak Gradient 3 mmHg PV Doppler PV Peak Gradient 5 mmHg Mitral Valve Name Value Normal MV Doppler MV Decel [place] 454 cm/s2 MV PHT 42 ms MV Area (PHT) 5.3 cm2 4.0-5.0 MV Diastolic Function MV E Peak Velocity 65 cm/s MV A Peak Velocity 108 cm/s MV E/A 0.6 MV Decel Time 144 ms MV Annular TDI MV E/e' (Septal) 8.2 <=8.0 MV E/e' (Lateral) 5.5 <=8.0 MV E/e' (Average) 6.9 Tricuspid Valve Name Value Normal TV Regurgitation Doppler TR Peak Velocity 298 cm/s TR Peak Gradient 35 mmHg Estimated PAP/RSVP RA Pressure 5 mmHg <=5 PA Systolic Pressure 41 mmHg <36 RV Systolic Pressure 41 mmHg <36 Aorta Name Value Normal Ascending Aorta Ao Root Diameter (MM) 3.8 cm Ao Root Diam Index (MM) 2.3 cm/m2 Aortic Valve Name Value Normal AV Doppler AV Peak Velocity 194 cm/s AV Peak Gradient 10 mmHg AV Mean Gradient 6 mmHg AV VTI 32 cm AV Area (Cont Eq VTI) 3.0 cm2 >=3.0 AV Area (Cont Eq Owen) 2.5 cm2 AV Regurgitation 2D LVOT Area 2.9 cm2 Ventricles Name Value Normal LV Dimensions 2D/MM IVS Diastolic Thickness (2D) 1.1 cm 0.6-1.0 LVID Diastole (2D) 3.8 cm 3.8-5.2 LVIW Diastolic Thickness (2D) 1.1 cm 0.6-0.9 LVID Systole (2D) 2.2 cm 2.2-3.5 LVOT Diameter 1.9 cm LV Mass (2D Cubed) 138.48 g 67.00-162.00 LV Mass Index (2D Cubed) 83 g/m2 43-95 Relative Wall Thickness (2D) 0.60 LV Fractional Shortening/Ejection Fraction 2D/MM LV Fractional Shortening (2D) 44 % 27-45 LV EF (2D Teicholz) 76 % 54-74 LV Diastolic Volume (4C MOD) 60 ml LV EF (4C MOD) 62 % LV Diastolic Volume (2C MOD) 63 ml LV EF (2C MOD) 75 % LV Diastolic Volume (BP MOD) 64 ml 46-106 LV Diastolic Volume Index (BP MOD) 38 ml/m2 29-61 LV Systolic Volume (BP MOD) 19 ml 14-42 LV Systolic Volume Index (BP MOD) 11 ml/m2 8-24 LV EF (BP MOD) 70 % 54-74 LV Diastolic Length (4C) 7.2 cm LV Systolic Length (4C) 5.5 cm LV Stroke Volume (4C MOD) 37 ml Atria Name Value Normal LA Dimensions LA Dimension (MM) 3.1 cm 2.7-3.8 LA Volume (4C A-L) 59 ml LA Volume (BP A-L) 48 ml RA Dimensions RA Area (4C) 15.5 cm2 <=18.0 Report Signatures
--- NOTE | 2024-03-28 00:07 | P.HP_ITS ---
H&P: HPI History of Present Illness Date/Time: 03/28/24 00:07 Chief Complaint: altered mental status Narrative: This is a 78-year-old female with past medical history significant for sacral decubitus ulcer, patient is status post diverting colostomy, patient is bedbound. Patient comes acid transfer from [facility] due to altered mental status patient found to have worsening decubitus ulcer patient is not able to contribute in a meaningful way to history taking. patient has been admitted to intensive care unit. Portable chest x-ray Comparison: 12/23/2023 Clinical History: Infected wound Findings: There is probable left basilar hazy airspace disease. Right lung clear. Cardiomediastinal silhouette is stable. Bones and soft tissues are unremarkable. Impression: Left basilar atelectasis versus pneumonia. Correlate clinically. Review of Systems Review of Systems: ROS unobtainable: Yes unobtainable due to mental status ( Lethargy) [facility] Past Medical History Medical History (Updated 03/28/24 @ 11:23 by Flavio Gaytan MD) Solitary pulmonary nodule Vitamin A deficiency Spondylosis of cervical joint Mobility impaired Fracture of left tibia Dysphagia requiring a soft diet Insomnia Surgical History Surgical History History of colostomy H/O lumbosacral spine surgery H/O cervical spine surgery History of surgery on lower extremity Family History Family History Other Unknown family medical history Social History Social History Smoking status: Former smoker Alcohol intake: never Substance use: never Substance use type: does not use Do You Feel Safe in your Home?: Yes Lack of Transportation: YES Lack of Food: Never True Current Housing: I Have Housing Concerned About Future Housing: No Difficulty Paying Gas/Electric Bills: No Difficulty Paying for Meds: No Currently Unemployed: No Education: Associate Degree Difficulty w/ Childcare or Family Care: No Spiritual care concerns: No Meds Home Medications and Allergies Home Medications ?Medication ?Instructions ?Recorded ?Confirmed ?Type aspirin 325 mg tablet (Harley 325 mg PO DAILY 12/22/23 03/27/24 History Aspirin) benzocaine 6 mg-menthol 10 mg 1 maxim PO PRN PRN Sore Throat #30 ea 01/05/24 03/27/24 Rx lozenges (Chloraseptic Sore Throat) collagenase clostridium histo. 250 1 applic topical QAM #60 grams 01/05/24 03/27/24 Rx unit/gram topical ointment (Santyl) hydrocodone 5 mg-acetaminophen 325 1 tablet PO Q4H PRN Pain Rated 4-6 01/05/24 03/27/24 Rx mg tablet #10 tabs levofloxacin 750 mg tablet 750 mg PO DAILY #2 tabs 01/05/24 03/28/24 Rx melatonin 5 mg tablet 5 mg PO HS PRN Sleep #30 tabs 01/05/24 03/28/24 Rx sodium hypochlorite 0.125 % 1 applic topical Q12HR #100 mL 01/05/24 03/28/24 Rx solution (Dakin's Solution) tolnaftate 1 % topical powder 1 applic topical Q12HR #60 grams 01/05/24 03/27/24 Rx acetaminophen 500 mg capsule 1,000 mg PO Q6H PRN pain 03/27/24 03/27/24 History calcium carbonate (Oyster Shell 500 mg PO BID 03/27/24 03/27/24 History Calcium) diazepam 5 mg tablet 5 mg PO .unknown 03/27/24 03/27/24 History fluticasone propionate 50 2 spray intranasal DAILY PRN 03/27/24 03/27/24 History mcg/actuation nasal allergy symptoms spray,suspension (24 Hour Allergy Relief) methocarbamol 500 mg tablet 500 mg PO Q4H PRN muscle spasm 03/27/24 03/27/24 History silver sulfadiazine 1 % topical 1 applic topical DAILY 03/27/24 03/27/24 History cream (Silvadene) Allergies Allergy/AdvReac Type Severity Reaction Status Date / Time melatonin Allergy Unknown Unknown Verified 03/27/24 23:37 Exam Narrative: patient is laying in bed Const: General: comfortable, no acute distress, well developed, alert, awake, ill appearing, tired appearing and average body habitus Nutritional Appearance: average body habitus Orientation/consciousness: oriented to person and oriented to place HENMT: Head: normal to inspection, normocephalic and atraumatic Ears: hearing grossly normal bilaterally Face/Nose/Sinus: normal facial exam Face and sinus: normal facial exam Eyes: General: appearance normal, both eyes and all related structures Pupils: Equal, round and reactive pupils present EOM: EOMs intact bilaterally Neck: Neck: full ROM, no lymphadenopathy and no JVD Thyroid: thyroid normal Lymphatic: no lymphadenopathy noted Resp: Effort & Inspection: normal respiratory effort and able to speak in complete sentences Auscultation: clear to auscultation bilaterally Cardio: Jugular venous distension: no JVD Rate: regular rate Rhythm: regular rhythm Heart sounds: S1 normal heart sound present and S2 normal heart sound present GI: Inspection: other ( colostomy bag in place) GI Palp: Yes Soft to palpation and Yes No hepatosplenomegaly present : General: Yes deferred Skin: Rashes: no rashes Wounds: wounds noted ( sacral ulcer) Neuro: General: oriented to person, oriented to place and CN's II-XI intact bilaterally Cranial nerves: Yes CN's II-XII intact bilaterally and Yes Equal, round and reactive pupils present Cognition (Neuro): abnormal cognition ( lethargy) Speech: normal speech Gait exam (Neuro): Other gait observations present ( bed ridden) Motor exam (neuro): 5/5 motor strength present throughout Extrem: General: normal to inspection, full ROM, no joint enlargement and no pedal edema Other: bilateral lower extremity edema Assessment and Plan Assessment and plan (1) Sepsis: Code(s): A41.9 - Sepsis, unspecified organism Status: Acute Assessment and Plan: Secondary to infected decubitus ulcer patient started on broad-spectrum antibiotics (2) Acute renal failure: Code(s): N17.9 - Acute kidney failure, unspecified Status: Acute Assessment and Plan: likely secondary to pre renal azotemia in a setting of hypotension and sepsis continue to monitor BUN and creatinine (3) Atrial fibrillation with RVR: Code(s): I48.91 - Unspecified atrial fibrillation Status: Acute Assessment and Plan: patient received digoxin (4) Protein-calorie malnutrition, severe: Code(s): E43 - Unspecified severe protein-calorie malnutrition Status: Acute Assessment and Plan: continue to monitor calorie intake (5) Decubitus ulcer: Qualifiers: Pressure injury location: sacral region Pressure injury stage: stage 4 Qualified Code(s): L89.154 - Pressure ulcer of sacral region, stage 4 Code(s): L89.90 - Pressure ulcer of unspecified site, unspecified stage Status: Acute Assessment and Plan: general surgery consult
--- NOTE | 2024-03-28 00:28 | PC.NURSE ---
Admission completed via transfer sheet from [facility] and recall from previous visit; copy of DNR placed in patient chart. Dr. Flynn updated. Admission report to TYLER Cao.
[2024-03-28 01:07] LABS: Estimated Glomerular Filt Rate > 60
[2024-03-28 01:08] LABS: Lactic Acid Reflex 1.1 mmol/L (0.7-2.0); Magnesium 1.5 mg/dL (1.6-2.3); Phosphorus 3.3 mg/dL (2.5-4.5)
[2024-03-28 01:09] LABS: INR 1.3; Prothrombin Time 16.5 Seconds (11.1-14.7)
[2024-03-28 01:10] LABS: Partial Thromboplastin Time 27.4 Seconds (22.3-36.8)
--- NOTE | 2024-03-28 01:15 | ADMGEN ---
This patient, Aidee Domínguez, was admitted to Intensive Care Unit-2 03/27/24 at 2320. Patient/family oriented to hospital policies and general routines including ID bracelet, bed and alarms, visiting hours, pain management, procedures, bathroom and other care routines, personal items, smoking policy, room service/diet, and visiting hours. Information on how to activate the Rapid Response Team has been discussed. Patient/Family are encouraged to report perceived risks to care and to ask questions if they do not understand what they are told or what they should do.
--- NOTE | 2024-03-28 01:15 | PC.NURSE ---
Dr Flynn made aware of blood pressure and heart rate still in 130's. Reported [facility] results of 10.2% change. Order for digoxin .125mg received.
[2024-03-28] MEDS: DIGOXIN INJ 250 MCG/ML 2 ML AMP (*BKC) 125 MCG IV PUSH (01:30)
[2024-03-28] MEDS: CEFEPIME 1 GM/NS 50 ML 1 GM/50 ML BAG IVPB (01:45)
[2024-03-28] MEDS: metroNIDAZOLE 500 MG/ISO 100ML 500 MG/100 ML BAG 100 MG IVPB ×4 (02:03→21:11)
[2024-03-28] MEDS: VANCOMYCIN 1,750 MG/NS 500 ML 1,750 MG/500 ML BAG 250 MG IVPB (02:29)
[2024-03-28 02:51] LABS: Hemoglobin A1C 4.8 % (<5.7)
[2024-03-28 02:56] LABS: Add Urine Microscopic? YES; Appearance Urine Cloudy (Clear); Bacteria Urine None Seen /hpf; Bilirubin Urine Negative (Negative); Blood Urine Non-Hemolyzed Trace (Negative); Color Urine Dark Yellow (Yellow); Glucose Urine UA Negative (Negative); Ketones Urine 2+ mg/dL (Negative); Leukocyte Esterase Ur 2+ LEU/UL (Negative); Need Manual Microscopic Reviewed; Nitrate Urine Positive (Negative); Protein Urine 1+ mg/dL (Negative); Specific Grav Ur 1.043 (1.001-1.035); Squamous Epithelial Cell Urine Occasional /hpf (Few); WBC Urine 21-50 /hpf (0-3); pH Urine 6.5 (5.0-9.0)
[2024-03-28] MEDS: DIGOXIN INJ 250 MCG/ML 2 ML AMP (*BKC) IV PUSH (03:27)
[2024-03-28 03:35] LABS: MRSA (PCR) NOT DETECTED (NOT DETECTE)
[2024-03-28] MEDS: HYDROcodone/acetaminophen (*CRX) 5-325 MG TABLET 1 TAB PO (04:34)
[2024-03-28] MEDS: dilTIAZem HCl INJ 25 MG/5 ML VIAL 10 MG IV PUSH (06:15)
--- NOTE | 2024-03-28 06:41 | PC.NURSE ---
0600 Dr Flynn called to report heart rate still in the 120s; patient previously received 125mcg and 250mcg dose of digoxin IVP. Blood pressure reviewed and order for 10mg diltiazem IVP received.
--- NOTE | 2024-03-28 06:43 | PC.NURSE ---
Checking orders for morning labs and magnesium level noted to be 1.5. Dr Flynn notified and 2gram mag sulfate ordered IV PIGGY BACK.
[2024-03-28] MEDS: MAGNESIUM SULF 2 GM/WATER 50ML 2 GM/50 ML BAG IVPB (07:03)
[2024-03-28 07:08] LABS: Hematocrit 22.7 % (37.0-47.0); Mean Corpuscular HGB Conc 30.8 g/dl (32-36); Mean Corpuscular Hemoglobin 25.6 pg (26-34); Mean Corpuscular Volume 83.2 fl (80-100); Mean Platelet Volume 8.7 fl (7.4-10.4); Platelet Count Result 511 k/mm3 (150-375); Red Blood Count 2.73 M/mm3 (4.2-5.4); Red Cell Distribution Width 17.7 % (11.5-14.5); White Blood Count 32.3 K/mm3 (4.5-10.0)
[2024-03-28 07:34] LABS: Alanine Aminotransferase 11 U/L (6-35); Albumin Level 1.8 g/dL (3.5-5.1); Alkaline Phosphatase 90 U/L (38-126); Anion Gap 2 mmol/L (4-12); Aspartate Amino Transferase 28 U/L (14-36); Bilirubin,Total 0.6 mg/dL (0.2-1.3); Blood Urea Nitrogen 8 mg/dL (7-17); Calcium 7.2 mg/dL (8.4-10.2); Carbon Dioxide 25 mmol/L (22-30); Chloride 102 mmol/L (98-107); Estimated CRCL calculation 87 ml/min; Estimated Glomerular Filt Rate > 60; Glucose 72 mg/dL (65-110); Potassium 3.4 mmol/L (3.4-5.0); Sodium 129 mmol/L (137-145)
[2024-03-28 08:00] LABS: Band Neutrophils Percent 12 % (0-6); Lymphocytes Absolute Manual 0.64 K/mm3 (1.1-4.5); Lymphocytes Percent Manual 2 % (18-44); Monocytes Absolute Manual 0.96 K/mm3 (0.1-0.90); Monocytes Percent Manual 3 % (3-9); Neutrophils Absolute Manual 30.68 K/mm3 (1.7-7.2); Neutrophils Percent Manual 83 % (46-73); Platelet Estimate Increased (Adequate); Total Cells Counted 100
[2024-03-28 08:01] LABS: Schistocytes None Seen
[2024-03-28] MEDS: ALBUMIN HUMAN 25% 25 GM/100 ML 100 ML IVPB ×3 (08:53→20:33)
[2024-03-28] MEDS: POTASSIUM CHLORIDE 20 MEQ PACKET (FOR LIQUID) 40 MEQ PO (08:53)
--- NOTE | 2024-03-28 09:51 | P.CONIN_ITS ---
Assessment and Plan Assessment and plan (1) Severe sepsis: Code(s): A41.9 - Sepsis, unspecified organism; R65.20 - Severe sepsis without septic shock Status: Acute Assessment and Plan: Patient presented the outside hospital lactic acidosis, hypotension, tachycardia, leukocytosis -source of infection: Decubitus ulcer with purulent drainage, UTI, possible pneumonia -received adequate amount of IV fluids at the outside hospital -lactic acidosis has resolved -will give additional albumin for volume expansion -03/28: Blood cultures have been obtained and pending -03/28: Urine cultures obtained and pending -patient started on cefepime, Flagyl and vancomycin (03/28) will deescalate antibiotics once the cultures are resulted -not requiring any pressors at this time -leukocytosis improving (2) Decubitus ulcer: Qualifiers: Pressure injury location: sacral region Pressure injury stage: stage 4 Qualified Code(s): L89.154 - Pressure ulcer of sacral region, stage 4 Code(s): L89.90 - Pressure ulcer of unspecified site, unspecified stage Status: Acute Assessment and Plan: 14 cm x 15 cm decubitus ulcer at the coccyx. With purulent drainage, pictures have been reviewed -surgery has been consulted -wound Care has been consulted (3) Atrial fibrillation with RVR: Code(s): I48.91 - Unspecified atrial fibrillation Status: Acute Assessment and Plan: Patient went to [facility] RVR overnight likely related to severe sepsis, does not of a history of atrial fibrillation -patient quickly converted back to sinus rhythm with digoxin and diltiazem IV -cardiology be consulted -will discuss with Cardiology regarding anticoagulation (4) Encephalopathy: Code(s): G93.40 - Encephalopathy, unspecified Status: Acute Assessment and Plan: Patient presented the outside hospital with acute altered mental status, likely related to hypotension and sepsis -patient more awake, alert this morning, oriented place, person -continue to monitor and treat underlying cause (5) Iron deficiency anemia: Code(s): D50.9 - Iron deficiency anemia, unspecified Status: Acute Assessment and Plan: Patient with hemoglobin of 7.0 this morning (baseline hemoglobin during last admission has been between 7.5 and 8.2) -will transfuse 1 unit of packed RBCs -monitor H&H (6) Protein-calorie malnutrition, severe: Code(s): E43 - Unspecified severe protein-calorie malnutrition Status: Acute Assessment and Plan: Albumin is 1.8 -severe protein calorie malnutrition -dietitian has been consulted -will start oral diet once if surgery is not planning to perform any procedure -will also encourage supplements (7) Electrolyte abnormality: Code(s): E87.8 - Other disorders of electrolyte and fluid balance, not elsewhere classified Status: Acute Assessment and Plan: Replace potassium and magnesium Plan DVT prophylaxis: Heparin subQ Stress ulcer prophylaxis: Not indicated Nutrition: Diabetic consistent diet Code Status: Do not resuscitate Critical Care Time Spent: 49 minutes Due to a high probability of clinically significant, life threatening deterioration, the patient required my highest level of preparedness to intervene emergently and I personally spent this critical care time directly and personally managing the patient. This critical care time included obtaining a history; examining the patient; pulse oximetry; ordering and review of studies; arranging urgent treatment with development of a management plan; evaluation of patient's response to treatment; frequent reassessment; and discussions with other providers. It was exclusive of separately billable procedures and treating other patients and teaching time. Please see Assessment and Plan section and the rest of the note for further information on patient assessment and treatment This dictation may have been done utilizing a voice recognition system. Attempts have been made to correct errors. However, there may be uncorrected grammatical, spelling, and recognitions errors present. 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 Patient was given 3 L IV fluid bolus at the outside hospital, and transferred to [facility] for continuity of care since the decubitus ulcer will manage by surgery in December 2023. Started on cefepime, vancomycin and Flagyl. Patient seen and examined the ICU this morning, is awake, alert, answers to questions, hard of hearing, follows simple commands. Hemodynamically stable, adequate urine output. Denies any shortness on breath, abdominal pain, nausea, vomiting at this time. Urine output has been adequate, afebrile. Remains on room air, hemoglobin dropped to 7.0 this morning. Patient into AFib RVR overnight requiring IV diltiazem and IV digoxin, patient converted to sinus rhythm, rate controlled Review of Systems 2 Review of Systems: All systems reviewed & are unremarkable except as noted in HPI and below PMFSH Past Medical History Medical History Dysphagia requiring a soft diet Fracture of left tibia Insomnia Mobility impaired Solitary pulmonary nodule Spondylosis of cervical joint Vitamin A deficiency Surgical History Surgical History H/O cervical spine surgery H/O lumbosacral spine surgery History of surgery on lower extremity Family History Family History Other Unknown family medical history Social History Social History Smoking status: Former smoker Alcohol intake: never Substance use: never Substance use type: does not use Do You Feel Safe in your Home?: Yes Lack of Transportation: YES Lack of Food: Never True Current Housing: I Have Housing Concerned About Future Housing: No Difficulty Paying Gas/Electric Bills: No Difficulty Paying for Meds: No Currently Unemployed: No Education: Associate Degree Difficulty w/ Childcare or Family Care: No Spiritual care concerns: No Meds Home Medications and Allergies Home Medications ?Medication ?Instructions ?Recorded ?Confirmed ?Type aspirin 325 mg tablet (Harley 325 mg PO DAILY 12/22/23 03/27/24 History Aspirin) benzocaine 6 mg-menthol 10 mg 1 maxim PO PRN PRN Sore Throat #30 ea 01/05/24 03/27/24 Rx lozenges (Chloraseptic Sore Throat) collagenase clostridium histo. 250 1 applic topical QAM #60 grams 01/05/24 03/27/24 Rx unit/gram topical ointment (Santyl) hydrocodone 5 mg-acetaminophen 325 1 tablet PO Q4H PRN Pain Rated 4-6 01/05/24 03/27/24 Rx mg tablet #10 tabs levofloxacin 750 mg tablet 750 mg PO DAILY #2 tabs 01/05/24 03/28/24 Rx melatonin 5 mg tablet 5 mg PO HS PRN Sleep #30 tabs 01/05/24 03/28/24 Rx sodium hypochlorite 0.125 % 1 applic topical Q12HR #100 mL 01/05/24 03/28/24 Rx solution (Dakin's Solution) tolnaftate 1 % topical powder 1 applic topical Q12HR #60 grams 01/05/24 03/27/24 Rx acetaminophen 500 mg capsule 1,000 mg PO Q6H PRN pain 03/27/24 03/27/24 History calcium carbonate (Oyster Shell 500 mg PO BID 03/27/24 03/27/24 History Calcium) diazepam 5 mg tablet 5 mg PO .unknown 03/27/24 03/27/24 History fluticasone propionate 50 2 spray intranasal DAILY PRN 03/27/24 03/27/24 History mcg/actuation nasal allergy symptoms spray,suspension (24 Hour Allergy Relief) methocarbamol 500 mg tablet 500 mg PO Q4H PRN muscle spasm 03/27/24 03/27/24 History silver sulfadiazine 1 % topical 1 applic topical DAILY 03/27/24 03/27/24 History cream (Silvadene) Allergies Allergy/AdvReac Type Severity Reaction Status Date / Time melatonin Allergy Unknown Unknown Verified 03/27/24 23:37 Vital Signs Vital Signs - 24 hr 03/28/24 00:00 03/28/24 00:00 03/28/24 00:00 Temperature Pulse Rate 137 H 137 H 137 H Respiratory Rate 22 H 22 H Blood Pressure 97/59 L Pulse Oximetry 97 97 Oxygen Delivery Room Air 03/28/24 00:06 03/28/24 01:30 03/28/24 02:00 Temperature Pulse Rate 140 H 132 H 133 H Respiratory Rate Blood Pressure Pulse Oximetry Oxygen Delivery 03/28/24 02:00 03/28/24 03:27 03/28/24 04:00 Temperature 97.6 F Pulse Rate 134 H 122 H 118 H Respiratory Rate 23 H 23 H Blood Pressure 104/62 Pulse Oximetry 96 98 Oxygen Delivery Room Air 03/28/24 04:00 03/28/24 04:00 03/28/24 06:00 Temperature 97.8 F Pulse Rate 128 H 118 H 120 H Respiratory Rate 23 H Blood Pressure 115/60 Pulse Oximetry 98 Oxygen Delivery 03/28/24 06:00 03/28/24 08:00 Temperature 98.4 F Pulse Rate 120 H 102 H Respiratory Rate 22 H 17 Blood Pressure 108/62 93/56 L Pulse Oximetry 95 93 Oxygen Delivery Exam 2 Narrative: General: Patient is awake, alert, ill-appearing HEENT:? Pupils equal and reactive, sclera is clear Neck:? Supple Respiratory:? Coarse breath sounds bilateral bases, otherwise clear, adequate air entry Cardiac:? S1-S2 is normal, sinus rhythm, with tachycardia Abdomen:? Soft, nontender, nondistended, hypoactive bowel sounds Extremities:? Bilateral lower extremity edema pitting in nature, palpable pedal pulses Neuro:? Patient is awake, alert, oriented to place and person, follows simple commands and answers to questions Skin:? Large decubitus ulcer at the coccyx, bilateral lower extremity ulcers noted, left upper thigh wound Psych:? Flat affect, normal mentation Results Labs 03/28/24 07:00 03/28/24 07:00 Labs: Short CBC 03/28/24 Range/Units 07:00 WBC 32.3 H (4.5-10.0) K/mm3 Hgb 7.0 L (12.0-15.0) g/dL Hct 22.7 L (37.0-47.0) % Plt Count 511 H (150-375) k/mm3 BMP 03/28/24 03/28/24 00:43 07:00 Sodium 129 L Potassium 3.4 Chloride 102 Carbon Dioxide 25 BUN 8 Creatinine 0.40 L 0.40 L Glucose 72 Calcium 7.2 L Liver Function 03/28/24 Range/Units 07:00 Total Bilirubin 0.6 (0.2-1.3) mg/dL AST 28 (14-36) U/L ALT 11 (6-35) U/L Alkaline Phosphatase 90 (38-126) U/L Albumin 1.8 L (3.5-5.1) g/dL Urine 03/28/24 Range/Units 02:11 Urine Color Dark yellow (Yellow) Urine Appearance Cloudy H (Clear) Urine pH 6.5 (5.0-9.0) Ur Specific [place] 1.043 H (1.001-1.035) Urine Protein 1+ H (Negative) mg/dL Urine Glucose (UA) Negative (Negative) mg/dL Quality VTE Prophylaxis VTE prophylaxis: pharmacologic ordered Hospitalist MIPS Advance Care Plan I have confirmed that the patient's Advanced Care Plan is present, code status is documented, or surrogate decision maker is listed in patient medical record.: Yes Medication Reconciliation I have utilized all available resources to obtain, update and review the patients current medications (includes all prescriptions, OTC, herbals, cannabis, and nutritional supplements).: Yes
[2024-03-28 11:16] LABS: Iron < 10 ug/dL (37-170)
[2024-03-28 11:35] LABS: Percent Iron Saturation < 10 % (20-50)
[2024-03-28] MEDS: ALBUMIN HUMAN 5% 25 GM/500 ML BTL IV CONT (11:37)
[2024-03-28] MEDS: THIAMINE HCL 200 MG/2 ML VIAL 100 MG IV PUSH (11:37)
[2024-03-28] MEDS: SODIUM CHLORIDE 0.9% IV 250 ML 30 ML IV CONT (11:38)
[2024-03-28] MEDS: CEFEPIME 2 GM/NS 50 ML 2 GM/50 ML BAG IVPB ×2 (11:38→22:13)
--- NOTE | 2024-03-28 12:44 | P.CONGS_ITS ---
Assessment and Plan Assessment and plan (1) Decubitus ulcer: Qualifiers: Pressure injury location: sacral region Pressure injury stage: stage 4 Qualified Code(s): L89.154 - Pressure ulcer of sacral region, stage 4 Code(s): L89.90 - Pressure ulcer of unspecified site, unspecified stage Status: Acute Assessment and Plan: * The patient has a large stage IV sacral decubitus ulcer that required surgical debridement in December and eventually she had a diverting colostomy, which is functioning well. Her chronic sacral decubitus ulcer is complicated by her immobility and severe malnutrition. It has extended in size, but appears stable. The wound is completely clean with granulating healthy tissue, and no purulent drainage or necrotic tissue on my exam. There is bone exposed at the inferior sacrum, which is where the CT scan today is showing osteomyelitis. Continue IV antibiotics as mentioned below for her sepsis. There is no indication for any surgical intervention for the sacral decubitus ulcer. Would recommend to continue local wound care with Dakin's dressing changes. She also has a smaller right ischial ulcer that appears clean with no signs of infection. Continue local wound care for this as well. * Her nutritional status is also very poor. If she has no issues with swallowing, then it is okay from a surgical standpoint to start advancing her diet. It would be beneficial to have the Dietitian consulted for nutritional support. * I will also order a specialty mattress given the multiple decubitus ulcers and her immobility. She will need frequent turning and repositioning. She already has heel boots in [facility] from the [facility]. (2) Severe sepsis: Code(s): A41.9 - Sepsis, unspecified organism; R65.20 - Severe sepsis without septic shock Status: Acute Assessment and Plan: * Patient presents with lactic acidosis, hypotension, tachycardia, and leukocytosis. Source could be UTI vs pulmonary. Her sacral decubitus ulcer is chronic and appears clean with no purulent drainage to suggest acute infection and no necrotic tissue. There are new findings of osteomyelitis of the inferior sacrum on CT, which could also be a source. * Continue broad-spectrum IV antibiotics and medical management. She is not requiring any vasopressors at this time. * Blood cx pending. Urine cx pending. (3) Atrial fibrillation with RVR: Code(s): I48.91 - Unspecified atrial fibrillation Status: Acute Assessment and Plan: * A fib with RVR overnight and has since converted to sinus rhythm. Cardiology being consulted. Okay to anticoagulate from a surgical standpoint if it is recommended by Cardiology. (4) Encephalopathy: Code(s): G93.40 - Encephalopathy, unspecified Status: Acute (5) Iron deficiency anemia: Code(s): D50.9 - Iron deficiency anemia, unspecified Status: Acute (6) Mobility impaired: Code(s): Z74.09 - Other reduced mobility Status: Acute Assessment and Plan: * She is bedbound [facility] a [facility]. Will order specialty mattress. (7) Protein-calorie malnutrition, severe: Code(s): E43 - Unspecified severe protein-calorie malnutrition Status: Acute Assessment and Plan: * Failure to thrive with severe malnutrition. Albumin is 1.8. This would contribute to complications with wound healing and progression of her sacral decubitus ulcer. I stressed the importance of nutrition in terms of wound healing. Plan I have discussed the patient's case and plan of care with Dr. Pacheco. Thank you for allowing us to see the patient in consultation and we will continue to follow along with you. History of Present Illness Consult details Consult date: 03/28/24 Reason for consult: other (Sacral decubitus ulcer) Requesting physician: Flavio Gaytan MD Narrative: Aidee Domínguez is a 78 year old female with past medical history of dysphagia, fracture of the left tibia, insomnia, spondylosis of cervical joint, vitamin-A deficiency, who is known to our service from previous hospitalization in December for sacral decubitus ulcer s/p excisional debridement and eventual diverting colostomy. She was brought into the ED to an outside hospital in [place], [place] on 01/26/2024 and directedly admitted for altered mental status, large decubitus ulcer with purulent drainage, hypotension, acute kidney injury, and failure to thrive. She is a poor historian, therefore history is obtained by review of EMR and discussion with nursing staff. Patient was given 3 L IV fluid bolus at the outside hospital and transferred to [facility] for management of her sepsis and surgical evaluation of the sacral decubitus ulcer. She was started on IV cefepime, vancomycin and Flagyl. Patient seen and examined the ICU this morning. She is alert and able to answer simple questions. She is hemodynamically stable. No specific complaints to me during my evaluation. Denies any shortness on breath, abdominal pain, nausea, vomiting at this time. Patient went into AFib RVR overnight requiring IV diltiazem and IV digoxin, but has since converted to sinus rhythm. She is not on any anticoagulation. WBC count on arrival is 32,300 and she appears to have chronic anemia with hemoglobin 7.0, which was stable from 7.6 in December. UA grossly abnormal, urine culture pending. Blood cultures drawn. CXR this morning showed left basilar atelectasis vs pneumonia. CT chest, abdomen, and pelvis done this morning and showed significant interval increase in a now large right sacral decubitus ulcer with osteomyelitis at the dear sacrum, interval left paraumbilical and colostomy with Lorena's pouch, very stable bilateral pleural effusions with dependent atelectasis in the bilateral lower lobes, indeterminate 11 x 6 mm right lower lobe pulmonary nodule, cholelithiasis, and high attenuation fluid within the bladder and bilateral renal collecting systems suggesting excreted IV contrast with differential including hematuria. Review of Systems 2 Review of Systems: ROS unobtainable: Yes unobtainable due to mental status [facility] Past Medical History Medical History (Updated 03/28/24 @ 11:23 by Flavio Gaytan MD) Solitary pulmonary nodule Vitamin A deficiency Spondylosis of cervical joint Mobility impaired Fracture of left tibia Dysphagia requiring a soft diet Insomnia Surgical History Surgical History History of colostomy H/O lumbosacral spine surgery H/O cervical spine surgery History of surgery on lower extremity Family History Family History Other Unknown family medical history Social History Social History Smoking status: Former smoker Alcohol intake: never Substance use: never Substance use type: does not use Do You Feel Safe in your Home?: Yes Lack of Transportation: YES Lack of Food: Never True Current Housing: I Have Housing Concerned About Future Housing: No Difficulty Paying Gas/Electric Bills: No Difficulty Paying for Meds: No Currently Unemployed: No Education: Associate Degree Difficulty w/ Childcare or Family Care: No Spiritual care concerns: No Meds Home Medications and Allergies Home Medications ?Medication ?Instructions ?Recorded ?Confirmed ?Type aspirin 325 mg tablet (Harley 325 mg PO DAILY 12/22/23 03/27/24 History Aspirin) benzocaine 6 mg-menthol 10 mg 1 maxim PO PRN PRN Sore Throat #30 ea 01/05/24 03/27/24 Rx lozenges (Chloraseptic Sore Throat) collagenase clostridium histo. 250 1 applic topical QAM #60 grams 01/05/24 03/27/24 Rx unit/gram topical ointment (Santyl) hydrocodone 5 mg-acetaminophen 325 1 tablet PO Q4H PRN Pain Rated 4-6 01/05/24 03/27/24 Rx mg tablet #10 tabs levofloxacin 750 mg tablet 750 mg PO DAILY #2 tabs 01/05/24 03/28/24 Rx melatonin 5 mg tablet 5 mg PO HS PRN Sleep #30 tabs 01/05/24 03/28/24 Rx sodium hypochlorite 0.125 % 1 applic topical Q12HR #100 mL 01/05/24 03/28/24 Rx solution (Dakin's Solution) tolnaftate 1 % topical powder 1 applic topical Q12HR #60 grams 01/05/24 03/27/24 Rx acetaminophen 500 mg capsule 1,000 mg PO Q6H PRN pain 03/27/24 03/27/24 History calcium carbonate (Oyster Shell 500 mg PO BID 03/27/24 03/27/24 History Calcium) diazepam 5 mg tablet 5 mg PO .unknown 03/27/24 03/27/24 History fluticasone propionate 50 2 spray intranasal DAILY PRN 03/27/24 03/27/24 History mcg/actuation nasal allergy symptoms spray,suspension (24 Hour Allergy Relief) methocarbamol 500 mg tablet 500 mg PO Q4H PRN muscle spasm 03/27/24 03/27/24 History silver sulfadiazine 1 % topical 1 applic topical DAILY 03/27/24 03/27/24 History cream (Silvadene) Allergies Allergy/AdvReac Type Severity Reaction Status Date / Time melatonin Allergy Unknown Unknown Verified 03/27/24 23:37 Vital Signs Vital Signs - 24 hr 03/28/24 00:00 03/28/24 00:00 12/16/24 00:00 Temperature Pulse Rate 137 H 137 H 137 H Respiratory Rate 22 H 22 H Blood Pressure 97/59 L Pulse Oximetry 97 97 Oxygen Delivery Room Air 03/28/24 00:06 03/28/24 01:30 03/28/24 02:00 Temperature Pulse Rate 140 H 132 H 133 H Respiratory Rate Blood Pressure Pulse Oximetry Oxygen Delivery 03/28/24 02:00 03/28/24 03:27 03/28/24 04:00 Temperature 97.6 F Pulse Rate 134 H 122 H 118 H Respiratory Rate 23 H 23 H Blood Pressure 104/62 Pulse Oximetry 96 98 Oxygen Delivery Room Air 03/28/24 04:00 03/28/24 04:00 03/28/24 06:00 Temperature 97.8 F Pulse Rate 128 H 118 H 120 H Respiratory Rate 23 H Blood Pressure 115/60 Pulse Oximetry 98 Oxygen Delivery 03/28/24 06:00 03/28/24 08:00 03/28/24 10:00 Temperature 98.4 F Pulse Rate 120 H 102 H 98 Respiratory Rate 22 H 17 17 Blood Pressure 108/62 93/56 L 95/61 L Pulse Oximetry 95 93 95 Oxygen Delivery 03/28/24 12:00 Temperature 98.1 F Pulse Rate 101 H Respiratory Rate 16 Blood Pressure 107/64 Pulse Oximetry 95 Oxygen Delivery Exam 2 Const: General: comfortable and no acute distress Nutritional Appearance: a verage body habitus Orientation/consciousness: oriented to person and oriented to place HENMT: Head: normocephalic and atraumatic Ears: hearing grossly abnormal bilaterally (Hard of hearing) Mouth: Yes moist mucous membranes Eyes: General: appearance normal, both eyes and all related structures P upils: Equal, round and reactive pupils present Neck: Neck: normal visual inspection and full ROM Resp: Effort & Inspection: no respiratory distress Auscultation: clear to auscultation bilaterally Cardio: Rate: regular rate Rhythm: regular rhythm Peripheral pulses: P eripheral pulses 2+ throughout GI: Inspection: non-distended and other (Colostomy functioning well with soft forde stool in bag) GI Palp: Yes Soft to palpation, No Tenderness to palpation present (GI), No Guarding due to palpation present (GI) and No Rebound tenderness present Auscultation: normal bowel sounds Urinary Catheter: Urinary Catheter: patent and draining Skin: General skin exam: normal color Other: Large stage IV sacral decubitus ulcer with bone exposed at the inferior sacrum and significant undermining nearly the entire circumference of the wound that is most extensive towards the left. The wound bed has healthy bleeding tissue with areas of granulation. There is also some epithelialization around the edges of the wound on the right buttock. No necrotic tissue or purulent drainage noted. No foul odor or crepitus. (See wound care note for measurements) Stage 3 right ischial decubitus ulcer with 100% pink tissue with some granulation. No bone exposed on exam. There is no necrotic tissue or purulent drainage. No surrounding erythema. Small superficial left heel ulcer with no surrounding erythema, no purulent drainage, does not probe to bone. Base of the wound appears to have some yellow slough. Neuro: General: no focal motor deficits Speech: normal speech Extrem: General: normal to inspection and edema bilateral (diffuse edema bilaterally) Psych: Mental Status: mental status grossly normal Attitude: cooperative Insight: Limited insight present (Psych) Judgement: Limited judgement present (Psych) Results Labs 03/28/24 07:00 03/28/24 07:00 Labs: Abnormal lab results 03/28/24 03/28/24 03/28/24 Range/Units 00:43 02:11 06:58 WBC (4.5-10.0) K/mm3 RBC (4.2-5.4) M/mm3 Hgb (12.0-15.0) g/dL Hct (37.0-47.0) % MCH (26-34) pg MCHC (32-36) g/dl RDW (11.5-14.5) % Plt Count (150-375) k/mm3 Neutrophils % (Manual) (46-73) % Band Neutrophils % (0-6) % Lymphocytes % (Manual) (18-44) % Abs Neuts (Manual) (1.7-7.2) K/mm3 Abs Lymphs (Manual) (1.1-4.5) K/mm3 Abs Monocytes (Manual) (0.1-0.90) K/mm3 PT 16.5 H (11.1-14.7) Seconds Sodium (137-145) mmol/L Anion Gap (4-12) mmol/L Creatinine 0.40 L (0.7-1.0) mg/dL Calcium (8.4-10.2) mg/dL Magnesium 1.5 L (1.6-2.3) mg/dL Iron (37-170) ug/dL TIBC (261-462) ug/dL % Saturation (20-50) % Ferritin (11.1-264) ng/mL Total Protein (6.3-8.2) g/dL Albumin (3.5-5.1) g/dL Urine Appearance Cloudy H (Clear) Ur Specific [place] 1.043 H (1.001-1.035) Urine Protein 1+ H (Negative) mg/dL Urine Ketones 2+ H (Negative) mg/dL Ur Blood (Man) Non-hemolyzed trace H (Negative) Urine Nitrate Positive H (Negative) Leukocyte Esterase Rfl 2+ H (Negative) LISA/UL Urine RBC 6-10 H (0-2) /hpf Urine WBC 21-50 H (0-3) /hpf Crossmatch See Detail 03/28/24 Range/Units 07:00 WBC 32.3 H (4.5-10.0) K/mm3 RBC 2.73 L (4.2-5.4) M/mm3 Hgb 7.0 L (12.0-15.0) g/dL Hct 22.7 L (37.0-47.0) % MCH 25.6 L (26-34) pg MCHC 30.8 L (32-36) g/dl RDW 17.7 H (11.5-14.5) % Plt Count 511 H (150-375) k/mm3 Neutrophils % (Manual) 83 H (46-73) % Band Neutrophils % 12 H (0-6) % Lymphocytes % (Manual) 2 L (18-44) % Abs Neuts (Manual) 30.68 H (1.7-7.2) K/mm3 Abs Lymphs (Manual) 0.64 L (1.1-4.5) K/mm3 Abs Monocytes (Manual) 0.96 H (0.1-0.90) K/mm3 PT (11.1-14.7) Seconds Sodium 129 L (137-145) mmol/L Anion Gap 2 L (4-12) mmol/L Creatinine 0.40 L (0.7-1.0) mg/dL Calcium 7.2 L (8.4-10.2) mg/dL Magnesium (1.6-2.3) mg/dL Iron < 10 L (37-170) ug/dL TIBC 105 L (261-462) ug/dL % Saturation < 10 L (20-50) % Ferritin 275.00 H (11.1-264) ng/mL Total Protein 5.0 L (6.3-8.2) g/dL Albumin 1.8 L (3.5-5.1) g/dL Urine Appearance (Clear) Ur Specific [place] (1.001-1.035) Urine Protein (Negative) mg/dL Urine Ketones (Negative) mg/dL Ur Blood (Man) (Negative) Urine Nitrate (Negative) Leukocyte Esterase Rfl (Negative) LISA/UL Urine RBC (0-2) /hpf Urine WBC (0-3) /hpf Crossmatch Diabetes panel 03/28/24 03/28/24 Range/Units 00:43 07:00 Sodium 129 L (137-145) mmol/L Potassium 3.4 (3.4-5.0) mmol/L Chloride 102 (98-107) mmol/L Carbon Dioxide 25 (22-30) mmol/L BUN 8 (7-17) mg/dL Creatinine 0.40 L 0.40 L (0.7-1.0) mg/dL Glucose 72 (65-110) mg/dL Hemoglobin A1c 4.8 (<5.7) % Calcium 7.2 L (8.4-10.2) mg/dL AST 28 (14-36) U/L ALT 11 (6-35) U/L Alkaline Phosphatase 90 (38-126) U/L Total Protein 5.0 L (6.3-8.2) g/dL Albumin 1.8 L (3.5-5.1) g/dL Calcium panel 03/28/24 03/28/24 Range/Units 00:43 07:00 Calcium 7.2 L (8.4-10.2) mg/dL Phosphorus 3.3 (2.5-4.5) mg/dL Albumin 1.8 L (3.5-5.1) g/dL Pituitary panel 03/28/24 03/28/24 Range/Units 00:43 07:00 Sodium 129 L (137-145) mmol/L Potassium 3.4 (3.4-5.0) mmol/L Chloride 102 (98-107) mmol/L Carbon Dioxide 25 (22-30) mmol/L BUN 8 (7-17) mg/dL Creatinine 0.40 L 0.40 L (0.7-1.0) mg/dL Glucose 72 (65-110) mg/dL Calcium 7.2 L (8.4-10.2) mg/dL Adrenal panel 03/28/24 03/28/24 Range/Units 00:43 07:00 Sodium 129 L (137-145) mmol/L Potassium 3.4 (3.4-5.0) mmol/L Chloride 102 (98-107) mmol/L Carbon Dioxide 25 (22-30) mmol/L BUN 8 (7-17) mg/dL Creatinine 0.40 L 0.40 L (0.7-1.0) mg/dL Glucose 72 (65-110) mg/dL Calcium 7.2 L (8.4-10.2) mg/dL Total Bilirubin 0.6 (0.2-1.3) mg/dL AST 28 (14-36) U/L ALT 11 (6-35) U/L Alkaline Phosphatase 90 (38-126) U/L Total Protein 5.0 L (6.3-8.2) g/dL Albumin 1.8 L (3.5-5.1) g/dL All other labs normal. Imaging Additional studies: ITS Impressions Chest X-Ray 03/28/24 06:35 Impression: Left basilar atelectasis versus pneumonia. Correlate clinically. Chest/Abdomen/Pelvis CT 03/28/24 12:00 IMPRESSION: 1. 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 2. 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 3. Very small bilateral pleural effusions with dependent atelectasis in the bilateral lower lobes. 4. Indeterminate 11 x 6 mm right lower lobe pulmonary nodule. Recommend malacia with any prior outside imaging. If unavailable would recommend 3 month follow-up low-dose noncontrast chest CT or PET/CT for further evaluation. 5. Cholelithiasis. 6. High attenuation fluid within the bladder and bilateral renal collecting systems suggesting excreted IV contrast with differential including hematuria. Correlate with clinical history and urinalysis.
--- NOTE | 2024-03-28 14:04 | PM.CNCAR ---
Assessment and Plan Assessment and plan (1) Atrial fibrillation with RVR: Code(s): I48.91 - Unspecified atrial fibrillation Status: Acute (2) Iron deficiency anemia: Code(s): D50.9 - Iron deficiency anemia, unspecified Status: Acute Plan Assessment: 1. New onset atrial fibrillation with RVR (rates in the 120s-130s range) secondary to sepsis- asymptomatic; [id number] score 3 (age >75, female sex) ----Normal LVEF by TTE in 12/2023 Summary 1. Left ventricular chamber dimension is normal. 2. Left ventricular systolic function is hyperdynamic, estimated at >70%. 3. There is mild asymmetric septal increased left ventricular wall thickness. 4. The left ventricular diastolic function is grade I diastolic dysfunction. 5. Right ventricular systolic function is normal. 6. Left atrial chamber dimension is mildly enlarged. 7. There is mild tricuspid valve regurgitation. 8. Normal inferior vena cava with >50% collapse upon inspiration consistent with normal right atrial pressure, 3 mmHg. ----No h/o bleeding per patient 2. Chronic iron deficiency anemia- Hg 7; blood transfusion has been ordered 3. Sepsis secondary to infected decubitus ulcer; osteomyelitis on CT- on broad spectrum antibiotics 4. Hypokalemia- potassium 3.4 5. Hypotension secondary to sepsis- now resolved 6. BL LE swelling- suspect HFpEF Plan: -Recommend anticoagulation with IV heparin to reduce risk of stroke -Blood transfusion has been ordered. Monitor H and H and keep Hg>8 -Replace potassium and other electrolytes as needed. Keep K>4 and Mg>2 -Check TSH and free T4 -Check BNP -Start metoprolol 25mg BID for rate control if SBP>110mm Hg History of Present Illness History of Present Illness Consult date/time: 03/28/24 14:04 Consult reason: atrial fibrillation Reason For Visit: Sepsis, Decub. Ulcer Narrative: Ms. Hoskins is a 78-year-old female with PMH of dysphagia, fracture of the left tibia, insomnia, spondylosis of cervical joint, vitamin-A deficiency, sacral decubitus ulcer s/p excisional debridement and eventual diverting colostomy, chronic iron deficiency anemia who was admitted for sepsis secondary to infected decubitus ulcer with purulent drainage, [place]RISTIA[place], and failure to thrive. She was noted to have atrial fibrillation and Cardiology was consulted for new onset atrial fibrillation with rapid ventricular response. Patient was treated with IV diltiazem and digoxin for her A fib. Her heart rates are in the 120s to 130s range at the time of my interview with her. She states that she has never had atrial fibrillation in the past. She denies any chest pain, shortness of breath, palpitations, dizziness, lightheadedness, presyncope, or syncope. She reports bilateral lower extremity swelling and some swelling in her upper extremities. She denies recent weight gain. No pain, nausea, emesis, abdominal pain, headache. She does not have any other cardiac history. She has no family history of premature CAD. Cardiac work up: TTE 12/2023: Summary 1. Left ventricular chamber dimension is normal. 2. Left ventricular systolic function is hyperdynamic, estimated at >70%. 3. There is mild asymmetric septal increased left ventricular wall thickness. 4. The left ventricular diastolic function is grade I diastolic dysfunction. 5. Right ventricular systolic function is normal. 6. Left atrial chamber dimension is mildly enlarged. 7. There is mild tricuspid valve regurgitation. 8. Normal inferior vena cava with >50% collapse upon inspiration consistent with normal right atrial pressure, 3 mmHg. Review of Systems Review of Systems: A complete review of systems was performed and pertinent positives are noted in the HPI. [facility] [place] Past Medical History Medical History (Updated 03/28/24 @ 11:23 by Flavio Gaytan MD) Solitary pulmonary nodule Vitamin A deficiency Spondylosis of cervical joint Mobility impaired Fracture of left tibia Dysphagia requiring a soft diet Insomnia Surgical History Surgical History History of colostomy H/O lumbosacral spine surgery H/O cervical spine surgery History of surgery on lower extremity Family History Family History Other Unknown family medical history Social History Social History Smoking status: Former smoker Alcohol intake: never Substance use: never Substance use type: does not use Do You Feel Safe in your Home?: Yes Lack of Transportation: YES Lack of Food: Never True Current Housing: I Have Housing Concerned About Future Housing: No Difficulty Paying Gas/Electric Bills: No Difficulty Paying for Meds: No Currently Unemployed: No Education: Associate Degree Difficulty w/ Childcare or Family Care: No Spiritual care concerns: No Meds Home Medications and Allergies Home Medications ?Medication ?Instructions ?Recorded ?Confirmed ?Type aspirin 325 mg tablet (Harley 325 mg PO DAILY 12/22/23 03/27/24 History Aspirin) benzocaine 6 mg-menthol 10 mg 1 maxim PO PRN PRN Sore Throat #30 ea 01/05/24 03/27/24 Rx lozenges (Chloraseptic Sore Throat) collagenase clostridium histo. 250 1 applic topical QAM #60 grams 01/05/24 03/27/24 Rx unit/gram topical ointment (Santyl) hydrocodone 5 mg-acetaminophen 325 1 tablet PO Q4H PRN Pain Rated 4-6 01/05/24 03/27/24 Rx mg tablet #10 tabs levofloxacin 750 mg tablet 750 mg PO DAILY #2 tabs 01/05/24 03/28/24 Rx melatonin 5 mg tablet 5 mg PO HS PRN Sleep #30 tabs 01/05/24 03/28/24 Rx sodium hypochlorite 0.125 % 1 applic topical Q12HR #100 mL 01/05/24 03/28/24 Rx solution (Dakin's Solution) tolnaftate 1 % topical powder 1 applic topical Q12HR #60 grams 01/05/24 03/27/24 Rx acetaminophen 500 mg capsule 1,000 mg PO Q6H PRN pain 03/27/24 03/27/24 History calcium carbonate (Oyster Shell 500 mg PO BID 03/27/24 03/27/24 History Calcium) diazepam 5 mg tablet 5 mg PO .unknown 03/27/24 03/27/24 History fluticasone propionate 50 2 spray intranasal DAILY PRN 03/27/24 03/27/24 History mcg/actuation nasal allergy symptoms spray,suspension (24 Hour Allergy Relief) methocarbamol 500 mg tablet 500 mg PO Q4H PRN muscle spasm 03/27/24 03/27/24 History silver sulfadiazine 1 % topical 1 applic topical DAILY 03/27/24 03/27/24 History cream (Silvadene) Allergies Allergy/AdvReac Type Severity Reaction Status Date / Time melatonin Allergy Unknown Unknown Verified 03/27/24 23:37 Vital Signs Vital Signs - 24 hr 03/28/24 00:00 03/28/24 00:00 03/28/24 00:00 Temperature Pulse Rate 137 H 137 H 137 H Respiratory Rate 22 H 22 H Blood Pressure 97/59 L Pulse Oximetry 97 97 Oxygen Delivery Room Air 03/28/24 00:06 03/28/24 01:30 03/28/24 02:00 Temperature Pulse Rate 140 H 132 H 133 H Respiratory Rate Blood Pressure Pulse Oximetry Oxygen Delivery 03/28/24 02:00 03/28/24 03:27 03/28/24 04:00 Temperature 36.4 C Pulse Rate 134 H 122 H 118 H Respiratory Rate 23 H 23 H Blood Pressure 104/62 Pulse Oximetry 96 98 Oxygen Delivery Room Air 03/28/24 04:00 03/28/24 04:00 03/28/24 06:00 Temperature 36.6 C Pulse Rate 128 H 118 H 120 H Respiratory Rate 23 H Blood Pressure 115/60 Pulse Oximetry 98 Oxygen Delivery 03/28/24 06:00 03/28/24 08:00 03/28/24 08:00 Temperature 36.9 C Pulse Rate 120 H 102 H 100 Respiratory Rate 22 H 17 Blood Pressure 108/62 93/56 L Pulse Oximetry 95 93 Oxygen Delivery 03/28/24 08:00 03/28/24 10:00 03/28/24 10:00 Temperature Pulse Rate 98 98 Respiratory Rate 17 Blood Pressure 95/61 L Pulse Oximetry 95 Oxygen Delivery Room Air 03/28/24 12:00 03/28/24 12:00 Temperature 36.7 C Pulse Rate 101 H 104 H Respiratory Rate 16 Blood Pressure 107/64 Pulse Oximetry 95 Oxygen Delivery Exam Resp: Other: Bilateral clear to asucultation No rales or rhonchi Cardio: Other: Rhythm irregular S1 S2+ No murmurs or rubs Bilateral lower extremity pitting edema 2+ Results Labs and Meds 03/28/24 07:00 03/28/24 07:00 Lab results: Cardiac Enzymes 03/28/24 Range/Units 07:00 AST 28 (14-36) U/L Coagulation 03/28/24 Range/Units 00:43 PT 16.5 H (11.1-14.7) Seconds APTT 27.4 (22.3-36.8) Seconds CBC 03/28/24 Range/Units 07:00 WBC 32.3 H (4.5-10.0) K/mm3 RBC 2.73 L (4.2-5.4) M/mm3 Hgb 7.0 L (12.0-15.0) g/dL Hct 22.7 L (37.0-47.0) % Plt Count 511 H (150-375) k/mm3 Lymph # (Auto) Not Reportable [place] # (Auto) Not Reportable Eos # (Auto) Not Reportable Baso # (Auto) Not Reportable Comprehensive Metabolic Panel 03/28/24 03/28/24 Range/Units 00:43 07:00 Sodium 129 L (137-145) mmol/L Potassium 3.4 (3.4-5.0) mmol/L Chloride 102 (98-107) mmol/L Carbon Dioxide 25 (22-30) mmol/L BUN 8 (7-17) mg/dL Creatinine 0.40 L 0.40 L (0.7-1.0) mg/dL Glucose 72 (65-110) mg/dL Calcium 7.2 L (8.4-10.2) mg/dL AST 28 (14-36) U/L ALT 11 (6-35) U/L Alkaline Phosphatase 90 (38-126) U/L Total Protein 5.0 L (6.3-8.2) g/dL Albumin 1.8 L (3.5-5.1) g/dL Intake and Output 03/27/24 03/28/24 03/28/24 23:59 07:59 15:59 Intake Total 270 120 Output Total 610 Balance -340 120 Intake: IV 150 Cefepime 1 gm/Ns 50 ml 1 gm In 50 50 ml @ 100 mls/hr IVPB ONCE ONE Rx#:[id number] metroNIDAZOLE 500 MG/ISO 100ML 100 500 mg In 100 ml @ 100 mls/hr IVPB Q8HR LILA Rx#:[id number] Oral 120 120 Output: Urine 610 Stool 0 Other: Number of Bowel Movements Today 1 Patient Weight 03/28/24 23:59 Weight 60.9 kg
[2024-03-28] MEDS: SOD HYPOCHLORITE 1/4 STRENGTH 473 ML 1 APPLIC TOPICAL (14:29)
--- NOTE | 2024-03-28 15:00 | P.PNCROSS_ITS ---
Event Note Event Note Event Note: Discussed with Dr. Judge, health science specialist, She wanted pt to be on Heparin Inf usion. She is aware that pt is anemic and that will be receiving a PRBC transfusion. I ordered the Heparin infusion per protocol for Atrial fibrillation
--- NOTE | 2024-03-28 15:00 | PM.EVENT ---
Event Note Event Note Event Note: Discussed with Dr. Judge, director client, She wanted pt to be on Heparin Infusion. She is aware that pt is anemic and that will be receiving a PRBC transfusion. I ordered the Heparin infusion per protocol for Atrial fibrillation
[2024-03-28] MEDS: VANCOMYCIN 1,000 MG/NS 250 ML 1,000 MG/250 ML BAG 250 MG IVPB (15:25)
[2024-03-28 15:35] LABS: Basophils Percent Auto 0.1 % (0.2-1.2); Hematocrit 24.5 % (37.0-47.0); Immature Granulocyte Absolute 0.38 K/mm3 (0.00-0.031); Immature Granulocyte Percent A 1.3 % (0-0.5); Lymphocytes Absolute Auto 0.92 K/mm3 (0.9-3.2); Lymphocytes Percent Auto 3.2 % (18.3-44.2); Mean Corpuscular HGB Conc 27.3 g/dl (32-36); Mean Corpuscular Hemoglobin 25.2 pg (26-34); Mean Corpuscular Volume 92.1 fl (80-100); Mean Platelet Volume 9.5 fl (7.4-10.4); Monocytes Absolute Auto 1.1 K/mm3 (0.1-0.6); Monocytes Percent Auto 3.8 % (2.6-8.5); Neutrophils Percent Auto 91.6 % (45.5-73.1); Platelet Count Result 395 k/mm3 (150-375); Red Blood Count 2.66 M/mm3 (4.2-5.4); Red Cell Distribution Width 17.9 % (11.5-14.5); White Blood Count 28.5 K/mm3 (4.5-10.0)
[2024-03-28 15:38] LABS: Hemoglobin 6.7 g/dL (12.0-15.0)
[2024-03-28 15:39] LABS: INR 1.5; Prothrombin Time 18.3 Seconds (11.1-14.7)
[2024-03-28 15:40] LABS: Partial Thromboplastin Time 30.5 Seconds (22.3-36.8)
--- NOTE | 2024-03-28 15:49 | P.PNIM_ITS ---
Progress Note: A&P Assessment and Plan (1) Severe sepsis: Code(s): A41.9 - Sepsis, unspecified organism; R65.20 - Severe sepsis without septic shock Status: Acute Assessment and Plan: Patient presented the outside hospital lactic acidosis, hypotension, tachycardia, leukocytosis -source of infection: Decubitus ulcer with purulent drainage, UTI, possible pneumonia -received adequate amount of IV fluids at the outside hospital -lactic acidosis has resolved -will give additional albumin for volume expansion -03/28: Blood cultures have been obtained and pending -03/28: Urine cultures obtained and pending -patient started on cefepime, Flagyl and vancomycin (03/28) will deescalate antibiotics once the cultures are resulted -not requiring any pressors at this time -leukocytosis improving (2) Decubitus ulcer: Qualifiers: Pressure injury location: sacral region Pressure injury stage: stage 4 Qualified Code(s): L89.154 - Pressure ulcer of sacral region, stage 4 Code(s): L89.90 - Pressure ulcer of unspecified site, unspecified stage Status: Acute Assessment and Plan: 14 cm x 15 cm decubitus ulcer at the coccyx. With purulent drainage, pictures have been reviewed -surgery evaluated noted no surgical intervention and recommends continuing abx and wound care -wound Care following (3) Atrial fibrillation with RVR: Code(s): I48.91 - Unspecified atrial fibrillation Status: Acute Assessment and Plan: Patient went to [facility] RVR overnight likely related to severe sepsis, does not of a history of atrial fibrillation -patient quickly converted back to sinus rhythm with digoxin and diltiazem IV continue Metoprolol and Heparin infusion per cards cards following (4) Encephalopathy: Code(s): G93.40 - Encephalopathy, unspecified Status: Acute Assessment and Plan: Patient presented the outside hospital with acute altered mental status, likely related to hypotension and sepsis -patient more awake, alert this morning, oriented place, person -continue to monitor and treat underlying cause (5) Iron deficiency anemia: Code(s): D50.9 - Iron deficiency anemia, unspecified Status: Acute Assessment and Plan: Patient with hemoglobin of 7.0 this morning (baseline hemoglobin during last admission has been between 7.5 and 8.2) -will transfuse 1 unit of packed RBCs -monitor H&H - Iron panel pending (6) Protein-calorie malnutrition, severe: Code(s): E43 - Unspecified severe protein-calorie malnutrition Status: Acute Assessment and Plan: Albumin is 1.8 -severe protein calorie malnutrition -dietitian has been consulted advance diet (7) Electrolyte abnormality: Code(s): E87.8 - Other disorders of electrolyte and fluid balance, not elsewhere classif ied Status: Acute Assessment and Plan: Replace potassium and magnesium Plan DVT prophylaxis: Heparin subQ Stress ulcer prophylaxis: Not indicated Nutrition: Diabetic consistent diet Code Status: Do not resuscitate Subjective Date/time seen: 03/28/24 15:49 Interval history: Patient comfortable at bedside GEn surgery eval noted, no surgical intervention recommended Abx and local wound care Review of Systems Review of Systems: All systems reviewed & are unremarkable except as noted in HPI and below ROS unobtainable: Yes unobtainable due to mental status ( Lethargy) Exam Narrative: General: Patient is awake, alert, ill-appearing HEENT:? Pupils equal and reactive, sclera is clear Neck:? Supple Respiratory:? Coarse breath sounds bilateral bases, otherwise clear, adequate air entry Cardiac:? S1-S2 is normal, sinus rhythm, with tachycardia Abdomen:? Soft, nontender, nondistended, hypoactive bowel sounds Extremities:? Bilateral lower extremity edema pitting in nature, palpable pedal pulses Neuro:? Patient is awake, alert, oriented to place and person, follows simple commands and answers to questions Skin:? Large decubitus ulcer at the coccyx, bilateral lower extremity ulcers noted, left upper thigh wound Psych:? Flat affect, normal mentation Const: General: comfortable, no acute distress, well developed, alert, awake, ill appearing, tired appearing and average body habitus Nutritional Appearance: average body habitus Orientation/consciousness: oriented to person and oriented to place HENMT: Head: normal to inspection, normocephalic and atraumatic Ears: hearing grossly normal bilaterally Face/Nose/Sinus: normal facial exam Face and sinus: normal facial exam Eyes: General: appearance normal, both eyes and all related structures Pupils: Equal, round and reactive pupils present EOM: EOMs intact bilaterally Neck: Neck: full ROM, no lymphadenopathy and no JVD Thyroid: thyroid normal Lymphatic: no lymphadenopathy noted Resp: Effort & Inspection: normal respiratory effort and able to speak in complete sentences Auscultation: clear to auscultation bilaterally Cardio: Jugular venous distension: no JVD Rate: regular rate Rhythm: regular rhythm Heart sounds: S1 normal heart sound present and S2 normal heart sound present GI: Inspection: other ( colostomy bag in place) : General: Yes deferred Skin: General skin exam: wounds noted ( sacral ulcer) Rashes: no rashes Wounds: wounds noted ( sacral ulcer) Neuro: General: oriented to person, oriented to place and CN's II-XI intact bilaterally Cranial nerves: Yes CN's II-XII intact bilaterally and Yes Equal, round and reactive pupils present Cognition (Neuro): abnormal cognition ( lethargy) Speech: normal speech Gait exam (Neuro): Other gait observations present ( bed ridden) Motor exam (neuro): 5/5 motor strength present throughout Extrem: General: normal to inspection, full ROM, no joint enlargement and no pedal edema Other: bilateral lower extremity edema Objective Data Vital Signs Vital Signs: Vital Signs - 24 hr 03/28/24 00:00 03/28/24 00:00 03/28/24 00:00 Temperature Pulse Rate 137 H 137 H 137 H Respiratory Rate 22 H 22 H Blood Pressure 97/59 L Pulse Oximetry 97 97 Oxygen Delivery Room Air 03/28/24 00:06 03/28/24 01:30 03/28/24 02:00 Temperature Pulse Rate 140 H 132 H 133 H Respiratory Rate Blood Pressure Pulse Oximetry Oxygen Delivery 03/28/24 02:00 03/28/24 03:27 03/28/24 04:00 Temperature 97.6 F Pulse Rate 134 H 122 H 118 H Respiratory Rate 23 H 23 H Blood Pressure 104/62 Pulse Oximetry 96 98 Oxygen Delivery Room Air 03/28/24 04:00 03/28/24 04:00 03/28/24 06:00 Temperature 97.8 F Pulse Rate 128 H 118 H 120 H Respiratory Rate 23 H Blood Pressure 115/60 Pulse Oximetry 98 Oxygen Delivery 03/28/24 06:00 03/28/24 08:00 03/28/24 08:00 Temperature 98.4 F Pulse Rate 120 H 102 H 100 Respiratory Rate 22 H 17 Blood Pressure 108/62 93/56 L Pulse Oximetry 95 93 Oxygen Delivery 03/28/24 08:00 03/28/24 10:00 03/28/24 10:00 Temperature Pulse Rate 98 98 Respiratory Rate 17 Blood Pressure 95/61 L Pulse Oximetry 95 Oxygen Delivery Room Air 03/28/24 12:00 03/28/24 12:00 03/28/24 12:00 Temperature 98.1 F Pulse Rate 101 H 104 H Respiratory Rate 16 Blood Pressure 107/64 Pulse Oximetry 95 Oxygen Delivery Room Air 03/28/24 14:00 03/28/24 14:00 Temperature Pulse Rate 120 H 120 H Respiratory Rate 20 Blood Pressure 105/59 L Pulse Oximetry 96 Oxygen Delivery Intake/Output Intake/Output: Intake & Output 03/25/24 03/26/24 03/27/24 03/28/24 23:59 23:59 23:59 23:59 Intake Total 490 Output Total 610 Balance -120 Meds/Results Medications: Active Medications Generic Name Dose Route Start Last Admin Trade Name Freq PRN Reason Stop Dose Admin Acetaminophen 650 mg 03/28/24 07:22 Acetaminophen 325 Mg Tablet PO Q6H PRN Mild Pain (1-3) or Fever Hydrocodone Bitart/Acetaminophen 1 tab 03/28/24 00:08 03/28/24 04:34 Hydrocodone/Acetaminophen (*Crx) 5-325 Mg Tablet PO 1 tab Q4H PRN Administration Pain Rated 4-6 Al Hydrox/Mg Hydrox/Simethicone 30 ml 03/28/24 00:13 Mag Hydrox/Al Hydrox/Simeth 30 Ml Udc PO QID PRN Dyspepsia Benzocaine 1 lozenge 03/28/24 00:08 Benzocaine/Menthol (*Bkc) 18 Ea Lozenge PO PRN PRN Sore Throat Calcium Carbonate 500 mg 03/28/24 09:00 Calcium Carbonate (Oscal) 500 Mg Tablet PO BID LILA Collagenase 1 applic 03/28/24 09:00 Collagenase Oint 30 Gm Tube TOPICAL QAM [facility] Fluticasone Propionate 2 spray 03/28/24 00:08 Fluticasone Propionate 0.05% Na Spr 16 Gm Btl (*Bkc) NASAL DAILY PRN allergy symptoms Heparin Sodium (Porcine) 5,000 units 03/28/24 15:00 Heparin Sodium 5,000 Units/Ml Vial IV PUSH PRN PRN aPTT less than 55 seconds Heparin Sodium (Porcine) 2,500 units 03/28/24 15:00 Heparin Sodium 5,000 Units/Ml Vial IV PUSH PRN PRN aPTT 55 - 70 seconds Cefepime HCl 2 gm in 50 mls @ 100 mls/hr 03/28/24 12:00 03/28/24 11:38 Maxipime 2 Gm/Ns 50 Ml IVPB 100 mls/hr Q12HR LILA Administration Metronidazole 500 mg in 100 mls @ 100 mls/hr 03/28/24 00:15 03/28/24 15:26 Flagyl 500 Mg/Iso Soln 100 Ml IVPB 100 mls/hr Q8HR LILA Administration Vancomycin HCl 1,000 mg in 250 mls @ 250 mls/hr 03/28/24 14:00 03/28/24 15:25 Vancomycin 1,000 Mg/Ns 250 Ml IVPB 250 mls/hr Q12H LILA Administration Sodium Chloride 250 mls @ 30 mls/hr 03/28/24 08:00 03/28/24 11:38 Normal Saline Iv IV CONT 03/28/24 16:19 30 mls/hr .Q8H20M STA Administration Albumin Human 100 mls @ 60 mls/hr 03/28/24 15:00 03/28/24 15:37 Albutein IVPB 03/29/24 04:39 60 mls/hr Q6H LILA Administration Heparin Sodium/Dextrose 25,000 units in 250 mls @ 11 mls/hr 03/28/24 15:00 Heparin Sodium/D5w 100 Units/Ml IV CONT .[id number] LILA Protocol 1,100 UNITS/HR Magnesium Hydroxide 30 ml 03/28/24 00:13 Magnesium Hydroxide Susp 30 Ml Udc PO DAILY PRN Constipation Methocarbamol 500 mg 03/28/24 00:08 Methocarbamol 500 Mg Tablet PO Q4H PRN muscle spasm Ondansetron HCl 4 mg 03/28/24 07:23 Ondansetron Inj 4 Mg/2 Ml Vial IV PUSH Q6H PRN Nausea And Vomiting Perflutren Lipid Microsphere 0 ml 03/28/24 11:28 Perflutren Lipid Microspheres 1.5 Ml Vial Diluted To 10 Ml Total Volume IV PUSH 03/31/24 11:28 ONCE PRN adequate visualization Protocol Silver Sulfadiazine 1 applic 03/28/24 09:00 Silver Sulfadiazine 1% Cr 400 Gm Jar (*Bkc) TOPICAL DAILY LILA Sodium Hypochlorite 1 applic 03/28/24 09:00 03/28/24 14:29 Sod Hypochlorite 1/4 Strength 473 Ml TOPICAL 1 applic Q12HR [facility] Administration Thiamine HCl 100 mg 03/29/24 09:00 Thiamine Hcl 200 Mg/2 Ml Vial IV PUSH QAM [facility] Radiology Results: ITS Impressions Chest X-Ray 03/28/24 06:35 Impression: Left basilar atelectasis versus pneumonia. Correlate clinically. Chest/Abdomen/Pelvis CT 03/28/24 12:00 IMPRESSION: 1. 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 2. 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 3. Very small bilateral pleural effusions with dependent atelectasis in the bilateral lower lobes. 4. Indeterminate 11 x 6 mm right lower lobe pulmonary nodule. Recommend malacia with any prior outside imaging. If unavailable would recommend 3 month follow-up low-dose noncontrast chest CT or PET/CT for further evaluation. 5. Cholelithiasis. 6. High attenuation fluid within the bladder and bilateral renal collecting systems suggesting excreted IV contrast with differential including hematuria. Correlate with clinical history and urinalysis. Labs Labs: Laboratory Results - last 24 hr 03/28/24 03/28/24 03/28/24 00:43 02:10 02:11 WBC RBC Hgb Hct MCV MCH MCHC RDW Plt Count MPV Immature Gran % (Auto) Neut % (Auto) Lymph % (Auto) [place] % (Auto) Eos % (Auto) Baso % (Auto) Lymph # (Auto) [place] # (Auto) Eos # (Auto) Baso # (Auto) Abs Immat Gran (auto) Absolute Neuts (auto) Absolute Nucleated RBC Total Counted Neutrophils % (Manual) Band Neutrophils % Lymphocytes % (Manual) Monocytes % (Manual) Nucleated RBC % Abs Neuts (Manual) Abs Lymphs (Manual) Abs Monocytes (Manual) Platelet Estimate Schistocytes PT 16.5 H INR 1.3 APTT 27.4 Sodium Potassium Chloride Carbon Dioxide Anion Gap BUN Creatinine 0.40 L Estim Creat Clear Calc Not Reportable Estimated GFR > 60 Glucose Hemoglobin A1c 4.8 Lactic Acid 1.1 Calcium Phosphorus 3.3 Magnesium 1.5 L Iron TIBC % Saturation Ferritin Total Bilirubin AST ALT Alkaline Phosphatase Total Protein Albumin Urine Color Dark yellow Urine Appearance Cloudy H Urine pH 6.5 Ur Specific [place] 1.043 H Urine Protein 1+ H Urine Glucose (UA) Negative Urine Ketones 2+ H Ur Blood (Man) Non-hemolyzed trace H Urine Nitrate Positive H Urine Bilirubin Negative Urine Urobilinogen 1.0 Add Ur Microanalysis Reviewed Leukocyte Esterase Rfl 2+ H Urine RBC 6-10 H Urine WBC 21-50 H Ur Squamous Epith Cells Occasional Urine Bacteria None seen Urine Casts 3-5 Nasal MRSA (PCR) Not detected Blood Type Antibody Screen Crossmatch 03/28/24 03/28/24 03/28/24 06:58 07:00 15:23 WBC 32.3 H 28.5 H RBC 2.73 L 2.66 L Hgb 7.0 L 6.7 L* Hct 22.7 L 24.5 L MCV 83.2 92.1 D MCH 25.6 L 25.2 L MCHC 30.8 L 27.3 L RDW 17.7 H 17.9 H Plt Count 511 H 395 H MPV 8.7 9.5 Immature Gran % (Auto) Not Reportable 1.3 H Neut % (Auto) Not Reportable 91.6 H Lymph % (Auto) Not Reportable 3.2 L [place] % (Auto) Not Reportable 3.8 Eos % (Auto) Not Reportable 0.0 Baso % (Auto) Not Reportable 0.1 L Lymph # (Auto) Not Reportable 0.92 [place] # (Auto) Not Reportable 1.1 H Eos # (Auto) Not Reportable 0.0 Baso # (Auto) Not Reportable 0.0 Abs Immat Gran (auto) Not Reportable 0.38 H Absolute Neuts (auto) Not Reportable 26.0 H Absolute Nucleated RBC Not Reportable 0.000 Total Counted 100 Neutrophils % (Manual) 83 H Band Neutrophils % 12 H Lymphocytes % (Manual) 2 L Monocytes % (Manual) 3 Nucleated RBC % Not Reportable 0.0 Abs Neuts (Manual) 30.68 H Abs Lymphs (Manual) 0.64 L Abs Monocytes (Manual) 0.96 H Platelet Estimate Increased Schistocytes None seen PT 18.3 H INR 1.5 APTT 30.5 Sodium 129 L Potassium 3.4 Chloride 102 Carbon Dioxide 25 Anion Gap 2 L BUN 8 Creatinine 0.40 L Estim Creat Clear Calc 87 Estimated GFR > 60 Glucose 72 Hemoglobin A1c Lactic Acid Calcium 7.2 L Phosphorus Magnesium Iron < 10 L TIBC 105 L % Saturation < 10 L Ferritin 275.00 H Total Bilirubin 0.6 AST 28 ALT 11 Alkaline Phosphatase 90 Total Protein 5.0 L Albumin 1.8 L Urine Color Urine Appearance Urine pH Ur Specific [place] Urine Protein Urine Glucose (UA) Urine Ketones Ur Blood (Man) Urine Nitrate Urine Bilirubin Urine Urobilinogen Add Ur Microanalysis Leukocyte Esterase Rfl Urine RBC Urine WBC Ur Squamous Epith Cells Urine Bacteria Urine Casts Nasal MRSA (PCR) Blood Type O Positive Antibody Screen Negative Crossmatch See Detail Quality VTE Prophylaxis VTE prophylaxis: pharmacologic ordered
[2024-03-28 16:00] LABS: Hypochromasia 1+; Platelet Estimate Adequate (Adequate); Schistocytes Rare
[2024-03-28 16:01] LABS: Poikilocytosis 1+
[2024-03-28] MEDS: HEPARIN SOD/D5W 100 UNITS/ML 25,000 UNITS/250 ML BAG 11 UNITS IV CONT (18:41)
[2024-03-28] MEDS: ACETAMINOPHEN 325 MG TABLET 650 MG PO (20:42)
[2024-03-29] VITALS (19 sets, daily range): BP systolic 118–164; BP diastolic 67–99; PULSE 97–137; RESP 15–25; TEMP 36.4–38.2; O2SAT 93–100
--- NOTE | 2024-03-29 00:06 | PC.NURSE ---
patient transferred into bed with specialty air mattress per ceiling lift.
[2024-03-29 01:08] LABS: Basophils Percent Auto 0.1 % (0.2-1.2); Eosinophils Percent Auto 0.1 % (0-4.4); Hematocrit 23.6 % (37.0-47.0); Hemoglobin 7.4 g/dL (12.0-15.0); Immature Granulocyte Absolute 0.28 K/mm3 (0.00-0.031); Immature Granulocyte Percent A 1.3 % (0-0.5); Lymphocytes Absolute Auto 1.32 K/mm3 (0.9-3.2); Mean Corpuscular HGB Conc 31.4 g/dl (32-36); Mean Corpuscular Hemoglobin 26.1 pg (26-34); Mean Corpuscular Volume 83.1 fl (80-100); Mean Platelet Volume 8.8 fl (7.4-10.4); Monocytes Percent Auto 4.3 % (2.6-8.5); Neutrophils Absolute Auto 19.5 K/mm3 (1.3-6.7); Neutrophils Percent Auto 88.2 % (45.5-73.1); Platelet Count Result 460 k/mm3 (150-375); Red Blood Count 2.84 M/mm3 (4.2-5.4); Red Cell Distribution Width 16.9 % (11.5-14.5); White Blood Count 22.1 K/mm3 (4.5-10.0)
[2024-03-29 01:17] LABS: Alanine Aminotransferase 14 U/L (6-35); Albumin Level 2.5 g/dL (3.5-5.1); Alkaline Phosphatase 114 U/L (38-126); Anion Gap 2 mmol/L (4-12); Aspartate Amino Transferase 43 U/L (14-36); Bilirubin,Total 1.7 mg/dL (0.2-1.3); Blood Urea Nitrogen 6 mg/dL (7-17); Calcium 7.7 mg/dL (8.4-10.2); Carbon Dioxide 26 mmol/L (22-30); Chloride 106 mmol/L (98-107); Estimated CRCL calculation 111 ml/min; Estimated Glomerular Filt Rate > 60; Glucose 103 mg/dL (65-110); Lactic Acid Reflex 0.6 mmol/L (0.7-2.0); Magnesium 1.8 mg/dL (1.6-2.3); Phosphorus 2.5 mg/dL (2.5-4.5); Potassium 3.3 mmol/L (3.4-5.0); Sodium 134 mmol/L (137-145)
[2024-03-29 01:21] LABS: Partial Thromboplastin Time 32.5 Seconds (22.3-36.8)
[2024-03-29] MEDS: HEPARIN SODIUM 5,000 UNITS/ML VIAL 5000 UNITS IV PUSH ×2 (02:13→10:15)
[2024-03-29 02:30] LABS: Platelet Estimate Increased (Adequate)
[2024-03-29 02:31] LABS: Hypochromasia 1+; Ovalocytes 1+; Schistocytes Rare
[2024-03-29] MEDS: ACETAMINOPHEN 325 MG TABLET 650 MG PO (02:41)
[2024-03-29] MEDS: VANCOMYCIN 1,000 MG/NS 250 ML 1,000 MG/250 ML BAG 250 MG IVPB (02:49)
[2024-03-29] MEDS: ALBUMIN HUMAN 25% 25 GM/100 ML 100 ML IVPB (02:53)
[2024-03-29] MEDS: SOD HYPOCHLORITE 1/4 STRENGTH 473 ML 1 APPLIC TOPICAL ×3 (03:00→21:44)
[2024-03-29] MEDS: metroNIDAZOLE 500 MG/ISO 100ML 500 MG/100 ML BAG 100 MG IVPB ×3 (06:12→21:43)
[2024-03-29] MEDS: MAGNESIUM SULF 2 GM/WATER 50ML 2 GM/50 ML BAG IVPB (09:18)
[2024-03-29] MEDS: CEFEPIME 2 GM/NS 50 ML 2 GM/50 ML BAG IVPB ×2 (09:18→21:43)
[2024-03-29] MEDS: THIAMINE HCL 200 MG/2 ML VIAL 100 MG IV PUSH (09:19)
[2024-03-29] MEDS: POTASSIUM CHLORIDE 20 MEQ PACKET (FOR LIQUID) 40 MEQ FEED TUBE (09:19)
[2024-03-29] MEDS: CALCIUM GLUC 2,000 MG/NS 100ML 2,000 MG/100 ML BAG 100 MG IVPB (09:26)
[2024-03-29 09:41] LABS: Partial Thromboplastin Time 40.3 Seconds (22.3-36.8)
--- NOTE | 2024-03-29 09:58 | PC.NURSE ---
PT states she is unable to take the potassium powder. Notified MD who gave order to change Potassium to tablet now and then 4hours later. Order read back and verified.
[2024-03-29] MEDS: POTASSIUM CHLORIDE 20 MEQ ER TABLET 40 MEQ PO ×2 (10:18→14:38)
--- NOTE | 2024-03-29 10:18 | PCFNICU ---
Addendum entered by Xiao Patel, RD, LDN 03/29/24 11:42: weight changed noted and nursing is aware. Original Note: ICU Rounding Note: Pt current nutrition is DBCC with Glucerna shakes and Leonard BID. Last recorded weight is 78.2 kg, up from 60.9 kg on admit. Bowel Motility: +BM reported 03/29 Labs Reviewed:Cr 0.3, Na 134, Alb 2.5 Meds Noted: Thiamine, Flagyl, Vancomycin. Skin: stage IV-coccyx, DTI Bilateral feet, Stage III-thigh Additional Notes: Patient remains on a DBCC diet, patient is tolerating diet. Diet supplements of Leonard BID for wound healing and Glucerna Shake BID for additional 240 kcal and 10 gm protein. Agree with diet orders. Plans to downgrade today. Following daily in ICU rounds. Monitoring intakes, weights, labs, supplement tolerance, output, plan of care, wound healing Follow up every 5 days.
--- NOTE | 2024-03-29 10:27 | WPDINTPN ---
Progress Note: A&P Assessment and Plan (1) Severe sepsis: Code(s): A41.9 - Sepsis, unspecified organism; R65.20 - Severe sepsis without septic shock Status: Acute Assessment and Plan: -source of infection: Decubitus ulcer with purulent drainage, osteomyelitis, UTI -received adequate amount of IV fluids at the outside hospital -lactic acidosis has resolved -receiving albumin for volume expansion -03/28: Blood cultures have been obtained and pending -03/28: Urine cultures obtained and pending -continue cefepime, Flagyl and vancomycin (03/28) will deescalate antibiotics once the cultures are resulted -not requiring any pressors at this time and blood pressures and -leukocytosis improving (2) Decubitus ulcer: Qualifiers: Pressure injury location: sacral region Pressure injury stage: stage 4 Qualified Code(s): L89.154 - Pressure ulcer of sacral region, stage 4 Code(s): L89.90 - Pressure ulcer of unspecified site, unspecified stage Status: Acute Assessment and Plan: 14 cm x 15 cm decubitus ulcer at the coccyx. With purulent drainage, pictures have been reviewed -surgery is following and no plan for any surgical intervention -wound Care has evaluated the patient and continue local wound care (3) Atrial fibrillation with RVR: Code(s): I48.91 - Unspecified atrial fibrillation Status: Acute Assessment and Plan: Patient went to [facility] RVR overnight likely related to severe sepsis, does not of a history of atrial fibrillation -patient quickly converted back to sinus rhythm with digoxin and diltiazem IV -cardiology following -patient on heparin infusion as per cardiology recommendations (4) Encephalopathy: Code(s): G93.40 - Encephalopathy, unspecified Status: Acute Assessment and Plan: Patient presented the outside hospital with acute altered mental status, likely related to hypotension and sepsis -patient patient now alert awake and oriented -continue to monitor and treat underlying cause (5) Iron deficiency anemia: Code(s): D50.9 - Iron deficiency anemia, unspecified Status: Acute Assessment and Plan: Patient with hemoglobin of 7.0 this morning (baseline hemoglobin during last admission has been between 7.5 and 8.2) -patient was transfuse 1 unit of packed RBCs 04/28 -monitor H&H (6) Protein-calorie malnutrition, severe: Code(s): E43 - Unspecified severe protein-calorie malnutrition Status: Acute Assessment and Plan: Albumin is 1.8 -severe protein calorie malnutrition -dietitian has been consulted -oral diet and supplements ordered (7) Electrolyte abnormality: Code(s): E87.8 - Other disorders of electrolyte and fluid balance, not elsewhere classified Status: Acute Assessment and Plan: Replace potassium and magnesium Plan DVT prophylaxis: Heparin infusion Stress ulcer prophylaxis: Not indicated Nutrition: Diabetic consistent diet Code Status: Patient has a POLST form stating her wishes to be Do not resuscitate/DNI which I confirmed with the patient. Code status updated in the chart as per patient's wishes. Incentive spirometry Subjective Date/time seen: 03/29/24 Overnight events reviewed. Afebrile On nasal cannula 2 L She denies any new complaints. Review of system was positive for chronic lower extremity pain which she states has been going on for years. Patient denies fever, chest pain, shortness of breath, cough, nausea vomiting, abdominal pain,, diarrhea, headache or constipation. All other systems were reviewed and were negative. Continues to be on heparin infusion Good urine output. Other Vitals acceptable Review of Systems Review of Systems: All systems reviewed & are unremarkable except as noted in HPI and below Exam Narrative: General: Patient is awake, alert, ill-appearing, not in any distress HEENT:? Pupils equal and reactive, sclera is clear Neck:? Supple Respiratory:? Coarse breath sounds bilateral bases, otherwise clear, adequate air entry Cardiac:? S1-S2 is normal, sinus rhythm, with tachycardia Abdomen:? Soft, nontender, nondistended, hypoactive bowel sounds Extremities:? Bilateral lower extremity edema pitting in nature, palpable pedal pulses Neuro:? Patient is awake, alert, oriented to place and person, follows simple commands and answers to questions Skin:? Large decubitus ulcer at the coccyx, bilateral lower extremity ulcers noted, left upper thigh wound Psych:? Flat affect, normal mentation Objective Data Vital Signs Vital Signs: Vital Signs - 24 hr 03/28/24 12:00 03/28/24 12:00 03/28/24 12:00 Temperature 36.7 C Pulse Rate 101 H 104 H Respiratory Rate 16 Blood Pressure 107/64 Pulse Oximetry 95 Oxygen Delivery Room Air Oxygen Flow Rate 03/28/24 14:00 03/28/24 14:00 03/28/24 16:00 Temperature 37.2 C Pulse Rate 120 H 120 H 123 H Respiratory Rate 20 21 H Blood Pressure 105/59 L 123/70 Pulse Oximetry 96 96 Oxygen Delivery Oxygen Flow Rate 03/28/24 16:00 03/28/24 16:00 03/28/24 16:27 Temperature 37.2 C Pulse Rate 118 H 118 H 121 H Respiratory Rate 19 25 H Blood Pressure 134/70 Pulse Oximetry 100 97 Oxygen Delivery Room Air Oxygen Flow Rate 03/28/24 16:46 03/28/24 17:46 03/28/24 18:00 Temperature 36.6 C 37.2 C Pulse Rate 115 H 115 H 117 H Respiratory Rate 21 H 20 Blood Pressure 131/75 136/80 Pulse Oximetry 98 98 Oxygen Delivery Oxygen Flow Rate 03/28/24 18:00 03/28/24 18:40 03/28/24 20:00 Temperature 37.1 C Pulse Rate 117 H 117 H 115 H Respiratory Rate 20 20 21 H Blood Pressure 137/78 137/78 Pulse Oximetry 96 96 97 Oxygen Delivery Nasal Cannula Oxygen Flow Rate 2 03/28/24 20:00 03/28/24 20:00 03/28/24 22:00 Temperature 37.3 C Pulse Rate 114 H 124 H 105 H Respiratory Rate 21 H Blood Pressure 147/88 H Pulse Oximetry 97 Oxygen Delivery Oxygen Flow Rate 03/28/24 22:00 03/29/24 00:00 03/29/24 00:00 Temperature Pulse Rate 105 H 109 H Respiratory Rate 22 H 22 H Blood Pressure 125/70 Pulse Oximetry 100 96 97 Oxygen Delivery Nasal Cannula Nasal Cannula Oxygen Flow Rate 2 2 03/29/24 00:00 03/29/24 01:07 03/29/24 01:45 Temperature 36.5 C Pulse Rate 107 H 109 H 104 H Respiratory Rate 22 H Blood Pressure 124/71 Pulse Oximetry 97 Oxygen Delivery Oxygen Flow Rate 03/29/24 01:45 03/29/24 03:25 03/29/24 04:00 Temperature Pulse Rate 105 H 105 H 107 H Respiratory Rate 15 21 H Blood Pressure 129/82 Pulse Oximetry 96 100 Oxygen Delivery Nasal Cannula Oxygen Flow Rate 2 03/29/24 04:00 03/29/24 06:00 03/29/24 06:00 Temperature 36.8 C Pulse Rate 107 H 111 H 111 H Respiratory Rate 20 19 Blood Pressure 121/74 133/86 Pulse Oximetry 97 99 Oxygen Delivery Oxygen Flow Rate 03/29/24 08:00 Temperature 36.9 C Pulse Rate 110 H Respiratory Rate 23 H Blood Pressure 164/99 H Pulse Oximetry 99 Oxygen Delivery Oxygen Flow Rate Intake/Output Intake/Output: Intake & Output 03/26/24 03/27/24 03/28/24 03/29/24 23:59 23:59 23:59 23:59 Intake Total 1321.5 1390.6 Output Total 1360 710 Balance -38.5 680.6 Meds/Results Medications: Active Medications Generic Name Dose Route Start Last Admin Trade Name Freq PRN Reason Stop Dose Admin Acetaminophen 650 mg 03/28/24 07:22 03/29/24 02:41 Acetaminophen 325 Mg Tablet PO 650 mg Q6H PRN Administration Mild Pain (1-3) or Fever Hydrocodone Bitart/Acetaminophen 1 tab 03/28/24 00:08 03/28/24 04:34 Hydrocodone/Acetaminophen (*Crx) 5-325 Mg Tablet PO 1 tab Q4H PRN Administration Pain Rated 4-6 Al Hydrox/Mg Hydrox/Simethicone 30 ml 03/28/24 00:13 Mag Hydrox/Al Hydrox/Simeth 30 Ml Udc PO QID PRN Dyspepsia Benzocaine 1 lozenge 03/28/24 00:08 Benzocaine/Menthol (*Bkc) 18 Ea Lozenge PO PRN PRN Sore Throat Calcium Carbonate 500 mg 03/28/24 09:00 Calcium Carbonate (Oscal) 500 Mg Tablet PO BID LILA Collagenase 1 applic 03/28/24 09:00 Collagenase Oint 30 Gm Tube TOPICAL QAM [facility] Fluticasone Propionate 2 spray 03/28/24 00:08 Fluticasone Propionate 0.05% Na Spr 16 Gm Btl (*Bkc) NASAL DAILY PRN allergy symptoms Heparin Sodium (Porcine) 5,000 units 03/28/24 15:00 03/29/24 10:15 Heparin Sodium 5,000 Units/Ml Vial IV PUSH 5,000 units PRN PRN Administration aPTT less than 55 seconds Heparin Sodium (Porcine) 2,500 units 03/28/24 15:00 Heparin Sodium 5,000 Units/Ml Vial IV PUSH PRN PRN aPTT 55 - 70 seconds Cefepime HCl 2 gm in 50 mls @ 100 mls/hr 03/28/24 12:00 03/29/24 09:18 Maxipime 2 Gm/Ns 50 Ml IVPB 100 mls/hr Q12HR LILA Administration Metronidazole 500 mg in 100 mls @ 100 mls/hr 03/28/24 00:15 03/29/24 06:12 Flagyl 500 Mg/Iso Soln 100 Ml IVPB 100 mls/hr Q8HR LILA Administration Vancomycin HCl 1,000 mg in 250 mls @ 250 mls/hr 03/28/24 14:00 03/29/24 04:46 Vancomycin 1,000 Mg/Ns 250 Ml IVPB Infused Q12H LILA Infusion Heparin Sodium/Dextrose 25,000 units in 250 mls @ 15 mls/hr 03/28/24 15:00 03/29/24 10:14 Heparin Sodium/D5w 100 Units/Ml IV CONT 1,500 units/hr .[id number] LILA 15 mls/hr Titration Protocol 1,500 UNITS/HR Magnesium Hydroxide 30 ml 03/28/24 00:13 Magnesium Hydroxide Susp 30 Ml Udc PO DAILY PRN Constipation Methocarbamol 500 mg 03/28/24 00:08 Methocarbamol 500 Mg Tablet PO Q4H PRN muscle spasm Ondansetron HCl 4 mg 03/28/24 07:23 Ondansetron Inj 4 Mg/2 Ml Vial IV PUSH Q6H PRN Nausea And Vomiting Perflutren Lipid Microsphere 0 ml 03/28/24 11:28 Perflutren Lipid Microspheres 1.5 Ml Vial Diluted To 10 Ml Total Volume IV PUSH 03/31/24 11:28 ONCE PRN adequate visualization Protocol Potassium Chloride 40 meq 03/29/24 14:15 Potassium Chloride 20 Meq Er Tablet PO 03/29/24 14:16 ONCE ONE Silver Sulfadiazine 1 applic 03/28/24 09:00 Silver Sulfadiazine 1% Cr 400 Gm Jar (*Bkc) TOPICAL DAILY LILA Sodium Hypochlorite 1 applic 03/28/24 09:00 03/29/24 09:19 Sod Hypochlorite 1/4 Strength 473 Ml TOPICAL 1 applic Q12HR LILA Administration Thiamine HCl 100 mg 03/29/24 09:00 03/29/24 09:19 Thiamine Hcl 200 Mg/2 Ml Vial IV PUSH 100 mg QAM LILA Administration Radiology Results: ITS Impressions Chest/Abdomen/Pelvis CT 03/28/24 12:00 IMPRESSION: 1. 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 2. 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 3. Very small bilateral pleural effusions with dependent atelectasis in the bilateral lower lobes. 4. Indeterminate 11 x 6 mm right lower lobe pulmonary nodule. Recommend malacia with any prior outside imaging. If unavailable would recommend 3 month follow-up low-dose noncontrast chest CT or PET/CT for further evaluation. 5. Cholelithiasis. 6. High attenuation fluid within the bladder and bilateral renal collecting systems suggesting excreted IV contrast with differential including hematuria. Correlate with clinical history and urinalysis. Chest X-Ray 03/29/24 07:05 Impression: COPD and/or chronic interstitial disease. Small left pleural effusion. Labs Labs: Laboratory Results - last 24 hr 03/28/24 03/28/24 03/28/24 06:58 07:00 15:23 WBC 28.5 H RBC 2.66 L Hgb 6.7 L* Hct 24.5 L MCV 92.1 D MCH 25.2 L MCHC 27.3 L RDW 17.9 H Plt Count 395 H MPV 9.5 Immature Gran % (Auto) 1.3 H Neut % (Auto) 91.6 H Lymph % (Auto) 3.2 L [place] % (Auto) 3.8 Eos % (Auto) 0.0 Baso % (Auto) 0.1 L Lymph # (Auto) 0.92 [place] # (Auto) 1.1 H Eos # (Auto) 0.0 Baso # (Auto) 0.0 Abs Immat Gran (auto) 0.38 H Absolute Neuts (auto) 26.0 H Absolute Nucleated RBC 0.000 Nucleated RBC % 0.0 Platelet Estimate Adequate Hypochromasia 1+ Poikilocytosis 1+ Ovalocytes Schistocytes Rare PT 18.3 H INR 1.5 APTT 30.5 Sodium Potassium Chloride Carbon Dioxide Anion Gap BUN Creatinine Estim Creat Clear Calc Estimated GFR Glucose Lactic Acid Calcium Phosphorus Magnesium Iron < 10 L TIBC 105 L % Saturation < 10 L Ferritin 275.00 H Total Bilirubin AST ALT Alkaline Phosphatase Total Protein Albumin Blood Type O Positive Antibody Screen Negative Crossmatch See Detail 03/29/24 03/29/24 01:01 08:10 WBC 22.1 H RBC 2.84 L Hgb 7.4 L Hct 23.6 L MCV 83.1 D MCH 26.1 MCHC 31.4 L RDW 16.9 H Plt Count 460 H MPV 8.8 Immature Gran % (Auto) 1.3 H Neut % (Auto) 88.2 H Lymph % (Auto) 6.0 L [place] % (Auto) 4.3 Eos % (Auto) 0.1 Baso % (Auto) 0.1 L Lymph # (Auto) 1.32 [place] # (Auto) 1.0 H Eos # (Auto) 0.0 Baso # (Auto) 0.0 Abs Immat Gran (auto) 0.28 H Absolute Neuts (auto) 19.5 H Absolute Nucleated RBC 0.000 Nucleated RBC % 0.0 Platelet Estimate Increased Hypochromasia 1+ Poikilocytosis Ovalocytes 1+ Schistocytes Rare PT INR APTT 32.5 40.3 H Sodium 134 L Potassium 3.3 L Chloride 106 Carbon Dioxide 26 Anion Gap 2 L BUN 6 L Creatinine 0.30 L Estim Creat Clear Calc 111 Estimated GFR > 60 Glucose 103 Lactic Acid 0.6 L Calcium 7.7 L Phosphorus 2.5 Magnesium 1.8 Iron TIBC % Saturation Ferritin Total Bilirubin 1.7 H AST 43 H ALT 14 Alkaline Phosphatase 114 Total Protein 5.0 L Albumin 2.5 L Blood Type Antibody Screen Crossmatch Quality VTE Prophylaxis VTE prophylaxis: pharmacologic ordered
--- NOTE | 2024-03-29 11:12 | PM.IMPN ---
Progress Note: A&P Assessment and Plan (1) Severe sepsis: Code(s): A41.9 - Sepsis, unspecified organism; R65.20 - Severe sepsis without septic shock Status: Acute (2) Iron deficiency anemia: Code(s): D50.9 - Iron deficiency anemia, unspecified Status: Acute (3) Adult failure to thrive: Code(s): R62.7 - Adult failure to thrive Status: Acute (4) Uremic encephalopathy: Code(s): G93.49 - Other encephalopathy; N19 - Unspecified kidney failure Status: Acute (5) Decubitus ulcer: Qualifiers: Pressure injury location: sacral region Pressure injury stage: stage 4 Qualified Code(s): L89.154 - Pressure ulcer of sacral region, stage 4 Code(s): L89.90 - Pressure ulcer of unspecified site, unspecified stage Status: Acute (6) Atrial fibrillation with RVR: Code(s): I48.91 - Unspecified atrial fibrillation Status: Acute (7) Hypotension: Code(s): I95.9 - Hypotension, unspecified Status: Acute (8) CHRISTIANA (acute kidney injury): Code(s): N17.9 - Acute kidney failure, unspecified Status: Acute Plan Severe sepsis: Code(s): A41.9 - Sepsis, unspecified organism; R65.20 - Severe sepsis without septic shock Status: Acute Assessment and Plan: Patient presented the outside hospital lactic acidosis, hypotension, tachycardia, leukocytosis -source of infection: Decubitus ulcer with purulent drainage, UTI, possible pneumonia -received adequate amount of IV fluids at the outside hospital -lactic acidosis has resolved -will give additional albumin for volume expansion -03/28: Blood cultures have been obtained and pending -03/28: Urine cultures obtained and pending -patient started on cefepime, Flagyl and vancomycin (03/28) deescalate antibiotics once the cultures are resulted off pressors at this time -leukocytosis improving Decubitus ulcer: Qualifiers: Pressure injury location: sacral region Pressure injury stage: stage 4 Qualified Code(s): L89.154 - Pressure ulcer of sacral region, stage 4 Code(s): L89.90 - Pressure ulcer of unspecified site, unspecified stage Status: Acute Assessment and Plan: 14 cm x 15 cm decubitus ulcer at the coccyx. With purulent drainage, pictures have been reviewed -surgery evaluated noted no surgical intervention and recommends continuing abx and wound care -wound Care following Atrial fibrillation with RVR: Code(s): I48.91 - Unspecified atrial fibrillation Status: Acute Assessment and Plan: Patient went to [facility] RVR overnight likely related to severe sepsis, does not of a history of atrial fibrillation -patient quickly converted back to sinus rhythm with digoxin and diltiazem IV continue Metoprolol and Heparin infusion per cards cards following Rate is not controlled, telemetry showed monitor about 130 Encephalopathy: Code(s): G93.40 - Encephalopathy, unspecified Status: Acute Assessment and Plan: Patient presented the outside hospital with acute altered mental status, likely related to hypotension and sepsis Currently patient is oriented place, person, possible baseline now continue to monitor and treat underlying cause Iron deficiency anemia: Code(s): D50.9 - Iron deficiency anemia, unspecified Status: Acute Assessment and Plan: Hemoglobin dropped to 7 transfused 1 unit of packed RBCs -monitor H&H - Iron panel Iron level low Start ferrous sulfate 325 mg once daily Protein-calorie malnutrition, severe: Code(s): E43 - Unspecified severe protein-calorie malnutrition Status: Acute Assessment and Plan: Albumin is 1.8 -severe protein calorie malnutrition -dietitian has been consulted advance diet Electrolyte abnormality: Code(s): E87.8 - Other disorders of electrolyte and fluid balance, not elsewhere classified Status: Acute Assessment and Plan: Replace potassium and magnesium Plan DVT prophylaxis: Heparin subQ Stress ulcer prophylaxis: Not indicated Nutrition: Diabetic consistent diet Code Status: Do not resuscitate Subjective Date/time seen: 03/29/24 11:12 Interval history: I saw examined patient in ICU, patient is off vasopressors. Telemetry showed AFib RVR, heart rate above 130. Patient feel tired, denies chest pain, shortness are breath in bed. Patient also denies abdomen pain dysuria. Labs reviewed Exam Narrative: GENERAL: Pleasant, in no acute distress. Well-nourished. - EYES: EOMI. Anicteric. - HENT: Moist mucous membranes. - LUNGS: Clear to auscultation bilaterally, no wheezing, rhonchi, or rales. - CARDIOVASCULAR: Regular rate and rhythm. No murmur. No JVD. - ABDOMEN: Soft, non-tender and non-distended. No palpable masses. - EXTREMITIES: No edema. Peripheral pulses 2+. Non-tender. - NEUROLOGIC: No focal neurological deficits. CN II-XII grossly intact. - PSYCHIATRIC: Awake, Alert and oriented x 3. Appropriate mood and affect. - SKIN: No rashes or lesions. Warm. - LYMPH: No cervical lymphadenopathy. Objective Data Vital Signs Vital Signs: Vital Signs - 24 hr 03/28/24 12:00 03/28/24 12:00 03/28/24 12:00 Temperature 98.1 F Pulse Rate 101 H 104 H Respiratory Rate 16 Blood Pressure 107/64 Pulse Oximetry 95 Oxygen Delivery Room Air Oxygen Flow Rate 03/28/24 14:00 03/28/24 14:00 03/28/24 16:00 Temperature 99.0 F Pulse Rate 120 H 120 H 123 H Respiratory Rate 20 21 H Blood Pressure 105/59 L 123/70 Pulse Oximetry 96 96 Oxygen Delivery Oxygen Flow Rate 03/28/24 16:00 03/28/24 16:00 03/28/24 16:27 Temperature 99.0 F Pulse Rate 118 H 118 H 121 H Respiratory Rate 19 25 H Blood Pressure 134/70 Pulse Oximetry 100 97 Oxygen Delivery Room Air Oxygen Flow Rate 03/28/24 16:46 03/28/24 17:46 03/28/24 18:00 Temperature 97.8 F 99.0 F Pulse Rate 115 H 115 H 117 H Respiratory Rate 21 H 20 Blood Pressure 131/75 136/80 Pulse Oximetry 98 98 Oxygen Delivery Oxygen Flow Rate 03/28/24 18:00 03/28/24 18:40 03/28/24 20:00 Temperature 98.8 F Pulse Rate 117 H 117 H 115 H Respiratory Rate 20 20 21 H Blood Pressure 137/78 137/78 Pulse Oximetry 96 96 97 Oxygen Delivery Nasal Cannula Oxygen Flow Rate 2 03/28/24 20:00 03/28/24 20:00 03/28/24 22:00 Temperature 99.1 F Pulse Rate 114 H 124 H 105 H Respiratory Rate 21 H Blood Pressure 147/88 H Pulse Oximetry 97 Oxygen Delivery Oxygen Flow Rate 03/28/24 22:00 03/29/24 00:00 03/29/24 00:00 Temperature Pulse Rate 105 H 109 H Respiratory Rate 22 H 22 H Blood Pressure 125/70 Pulse Oximetry 100 96 97 Oxygen Delivery Nasal Cannula Nasal Cannula Oxygen Flow Rate 2 2 03/29/24 00:00 03/29/24 01:07 03/29/24 01:45 Temperature 97.7 F Pulse Rate 107 H 109 H 104 H Respiratory Rate 22 H Blood Pressure 124/71 Pulse Oximetry 97 Oxygen Delivery Oxygen Flow Rate 03/29/24 01:45 03/29/24 03:25 03/29/24 04:00 Temperature Pulse Rate 105 H 105 H 107 H Respiratory Rate 15 21 H Blood Pressure 129/82 Pulse Oximetry 96 100 Oxygen Delivery Nasal Cannula Oxygen Flow Rate 2 03/29/24 04:00 03/29/24 06:00 03/29/24 06:00 Temperature 98.2 F Pulse Rate 107 H 111 H 111 H Respiratory Rate 20 19 Blood Pressure 121/74 133/86 Pulse Oximetry 97 99 Oxygen Delivery Oxygen Flow Rate 03/29/24 08:00 03/29/24 08:00 03/29/24 10:00 Temperature 98.4 F 97.5 F L Pulse Rate 110 H 112 H 111 H Respiratory Rate 23 H 23 H 22 H Blood Pressure 164/99 H 118/68 Pulse Oximetry 99 99 96 Oxygen Delivery Room Air Oxygen Flow Rate Intake/Output Intake/Output: Intake & Output 03/26/24 03/27/24 03/28/24 03/29/24 23:59 23:59 23:59 23:59 Intake Total 1321.5 1640.6 Output Total 1360 710 Balance -38.5 930.6 Meds/Results Medications: Active Medications Generic Name Dose Route Start Last Admin Trade Name Freq PRN Reason Stop Dose Admin Acetaminophen 650 mg 03/28/24 07:22 03/29/24 02:41 Acetaminophen 325 Mg Tablet PO 650 mg Q6H PRN Administration Mild Pain (1-3) or Fever Hydrocodone Bitart/Acetaminophen 1 tab 03/28/24 00:08 03/28/24 04:34 Hydrocodone/Acetaminophen (*Crx) 5-325 Mg Tablet PO 1 tab Q4H PRN Administration Pain Rated 4-6 Al Hydrox/Mg Hydrox/Simethicone 30 ml 03/28/24 00:13 Mag Hydrox/Al Hydrox/Simeth 30 Ml Udc PO QID PRN Dyspepsia Benzocaine 1 lozenge 03/28/24 00:08 Benzocaine/Menthol (*Bkc) 18 Ea Lozenge PO PRN PRN Sore Throat Calcium Carbonate 500 mg 03/28/24 09:00 Calcium Carbonate (Oscal) 500 Mg Tablet PO BID [facility] Collagenase 1 applic 03/28/24 09:00 Collagenase Oint 30 Gm Tube TOPICAL QAM [facility] Fluticasone Propionate 2 spray 03/28/24 00:08 Fluticasone Propionate 0.05% Na Spr 16 Gm Btl (*Bkc) NASAL DAILY PRN allergy symptoms Heparin Sodium (Porcine) 5,000 units 03/28/24 15:00 03/29/24 10:15 Heparin Sodium 5,000 Units/Ml Vial IV PUSH 5,000 units PRN PRN Administration aPTT less than 55 seconds Heparin Sodium (Porcine) 2,500 units 03/28/24 15:00 Heparin Sodium 5,000 Units/Ml Vial IV PUSH PRN PRN aPTT 55 - 70 seconds Cefepime HCl 2 gm in 50 mls @ 100 mls/hr 03/28/24 12:00 03/29/24 10:18 Maxipime 2 Gm/Ns 50 Ml IVPB Infused Q12HR [facility] Infusion Metronidazole 500 mg in 100 mls @ 100 mls/hr 03/28/24 00:15 03/29/24 07:15 Flagyl 500 Mg/Iso Soln 100 Ml IVPB Infused Q8HR [facility] In[facility] Vancomycin HCl 1,000 mg in 250 mls @ 250 mls/hr 03/28/24 14:00 03/29/24 04:46 Vancomycin 1,000 Mg/Ns 250 Ml IVPB Infused Q12H [facility] Infusion Heparin Sodium/Dextrose 25,000 units in 250 mls @ 15 mls/hr 03/28/24 15:00 03/29/24 10:14 Heparin Sodium/D5w 100 Units/Ml IV CONT 1,500 units/hr .[id number] [facility] 15 mls/hr Titration Protocol 1,500 UNITS/HR Magnesium Hydroxide 30 ml 03/28/24 00:13 Magnesium Hydroxide Susp 30 Ml Udc PO DAILY PRN Constipation Methocarbamol 500 mg 03/28/24 00:08 Methocarbamol 500 Mg Tablet PO Q4H PRN muscle spasm Ondansetron HCl 4 mg 03/28/24 07:23 Ondansetron Inj 4 Mg/2 Ml Vial IV PUSH Q6H PRN Nausea And Vomiting Perflutren Lipid Microsphere 0 ml 03/28/24 11:28 Perflutren Lipid Microspheres 1.5 Ml Vial Diluted To 10 Ml Total Volume IV PUSH 03/31/24 11:28 ONCE PRN adequate visualization Protocol Potassium Chloride 40 meq 03/29/24 14:15 Potassium Chloride 20 Meq Er Tablet PO 03/29/24 14:16 ONCE ONE Silver Sulfadiazine 1 applic 03/28/24 09:00 Silver Sulfadiazine 1% Cr 400 Gm Jar (*Bkc) TOPICAL DAILY [facility] Sodium Hypochlorite 1 applic 03/28/24 09:00 03/29/24 09:19 Sod Hypochlorite 1/4 Strength 473 Ml TOPICAL 1 applic Q12HR [facility] Administration Thiamine HCl 100 mg 03/29/24 09:00 03/29/24 09:19 Thiamine Hcl 200 Mg/2 Ml Vial IV PUSH 100 mg QAM [facility] Administration Radiology Results: ITS Impressions Chest/Abdomen/Pelvis CT 03/28/24 12:00 IMPRESSION: 1. 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 2. 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 3. Very small bilateral pleural effusions with dependent atelectasis in the bilateral lower lobes. 4. Indeterminate 11 x 6 mm right lower lobe pulmonary nodule. Recommend malacia with any prior outside imaging. If unavailable would recommend 3 month follow-up low-dose noncontrast chest CT or PET/CT for further evaluation. 5. Cholelithiasis. 6. High attenuation fluid within the bladder and bilateral renal collecting systems suggesting excreted IV contrast with differential including hematuria. Correlate with clinical history and urinalysis. Chest X-Ray 03/29/24 07:05 Impression: COPD and/or chronic interstitial disease. Small left pleural effusion. Labs Labs: Laboratory Results - last 24 hr 03/28/24 03/28/24 03/28/24 06:58 07:00 15:23 WBC 28.5 H RBC 2.66 L Hgb 6.7 L* Hct 24.5 L MCV 92.1 D MCH 25.2 L MCHC 27.3 L RDW 17.9 H Plt Count 395 H MPV 9.5 Immature Gran % (Auto) 1.3 H Neut % (Auto) 91.6 H Lymph % (Auto) 3.2 L [place] % (Auto) 3.8 Eos % (Auto) 0.0 Baso % (Auto) 0.1 L Lymph # (Auto) 0.92 [place] # (Auto) 1.1 H Eos # (Auto) 0.0 Baso # (Auto) 0.0 Abs Immat Gran (auto) 0.38 H Absolute Neuts (auto) 26.0 H Absolute Nucleated RBC 0.000 Nucleated RBC % 0.0 Platelet Estimate Adequate Hypochromasia 1+ Poikilocytosis 1+ Ovalocytes Schistocytes Rare PT 18.3 H INR 1.5 APTT 30.5 Sodium Potassium Chloride Carbon Dioxide Anion Gap BUN Creatinine Estim Creat Clear Calc Estimated GFR Glucose Lactic Acid Calcium Phosphorus Magnesium Iron < 10 L TIBC 105 L % Saturation < 10 L Ferritin 275.00 H Total Bilirubin AST ALT Alkaline Phosphatase Total Protein Albumin Blood Type O Positive Antibody Screen Negative Crossmatch See Detail 03/29/24 03/29/24 01:01 08:10 WBC 22.1 H RBC 2.84 L Hgb 7.4 L Hct 23.6 L MCV 83.1 D MCH 26.1 MCHC 31.4 L RDW 16.9 H Plt Count 460 H MPV 8.8 Immature Gran % (Auto) 1.3 H Neut % (Auto) 88.2 H Lymph % (Auto) 6.0 L [place] % (Auto) 4.3 Eos % (Auto) 0.1 Baso % (Auto) 0.1 L Lymph # (Auto) 1.32 [place] # (Auto) 1.0 H Eos # (Auto) 0.0 Baso # (Auto) 0.0 Abs Immat Gran (auto) 0.28 H Absolute Neuts (auto) 19.5 H Absolute Nucleated RBC 0.000 Nucleated RBC % 0.0 Platelet Estimate Increased Hypochromasia 1+ Poikilocytosis Ovalocytes 1+ Schistocytes Rare PT INR APTT 32.5 40.3 H Sodium 134 L Potassium 3.3 L Chloride 106 Carbon Dioxide 26 Anion Gap 2 L BUN 6 L Creatinine 0.30 L Estim Creat Clear Calc 111 Estimated GFR > 60 Glucose 103 Lactic Acid 0.6 L Calcium 7.7 L Phosphorus 2.5 Magnesium 1.8 Iron TIBC % Saturation Ferritin Total Bilirubin 1.7 H AST 43 H ALT 14 Alkaline Phosphatase 114 Total Protein 5.0 L Albumin 2.5 L Blood Type Antibody Screen Crossmatch
--- NOTE | 2024-03-29 11:15 | P.PNGS_ITS ---
Progress Note: A&P Assessment and Plan (1) Decubitus ulcer: Qualifiers: Pressure injury location: sacral region Pressure injury stage: stage 4 Qualified Code(s): L89.154 - Pressure ulcer of sacral region, stage 4 Code(s): L89.90 - Pressure ulcer of unspecified site, unspecified stage Status: Acute Assessment and Plan: * Large stage IV sacral decubitus ulcer with exposed sacrum that is extensive, but appears stable. There is no necrotic tissue that would require surgical debridement and no purulent drainage noted. * Continue local wound care with Dakin's gauze dressing changes. No indication for surgical intervention at this time. * Patient is refusing turning/repositioning, we had a thorough discussion today about the importance of this in regards to her decubitus ulcers. By the end of our conversation, she agreed to be compliant. Continue frequent turning, heel boots, and specialty mattress. (2) Severe sepsis: Code(s): A41.9 - Sepsis, unspecified organism; R65.20 - Severe sepsis without septic shock Status: Acute Assessment and Plan: * Improving. Patient presented with lactic acidosis, hypotension, tachycardia, and leukocytosis. WBC trending down. * Source could be UTI vs pulmonary vs osteomyelitis * Continue broad-spectrum IV antibiotics and medical management. (3) Atrial fibrillation with RVR: Code(s): I48.91 - Unspecified atrial fibrillation Status: Acute Assessment and Plan: * Cardiology consulted and patient started on a Heparin infusion. (4) Protein-calorie malnutrition, severe: Code(s): E43 - Unspecified severe protein-calorie malnutrition Status: Acute Assessment and Plan: * Failure to thrive with severe malnutrition. Encouraged oral intake again today. Although patient is oriented, she does not seem to comprehend the severity of her wound or the factors contributing to this issue after a thorough discussion. (5) Sacral osteomyelitis: Code(s): M46.28 - Osteomyelitis of vertebra, sacral and sacrococcygeal region Status: Acute Assessment and Plan: * CT showing evidence of acute osteomyelitis of the inferior sacrum, which was not present at the time of her original debridement and hospitalization in December. * This typically requires treatment with 6 weeks of IV antibiotics. Management per Hospitalist. Plan I have discussed the patient's case and plan of care with Dr. Pacheco. Subjective Subjective Date/Time Seen: 03/29/24 11:15 Patient reports: no new complaints and afebrile Interval history: Patient seen in ICU. Started on heparin infusion per Cardiology for A.fib. No acute changes overnight. Per nursing, patient is refusing turning this morning and has refused some meals due to wanting to rest. I had an extensive conversation with her today about the severity of her wounds and the importance of complying with recommended treatment and getting adequate nutrition. The patient is alert and oriented x 2-3 but did not seem to comprehend our discussion. Exam Const: General: comfortable and no acute distress Orientation/consciousness: oriented to person and oriented to place GI: Inspection: non-distended GI Palp: Yes Soft to palpation, No Tenderness to palpation present (GI), No Guarding due to palpation present (GI) and No Rebound tenderness present Auscultation: normal bowel sounds Other: Ostomy functioning well with stool in bag Skin: Other: Sacral wound with dressing dry and intact, examined yesterday Objective Data Vital Signs Vital Signs: Vital Signs - 24 hr 03/28/24 12:00 03/28/24 12:00 03/28/24 12:00 Temperature 98.1 F Pulse Rate 101 H 104 H Respiratory Rate 16 Blood Pressure 107/64 Pulse Oximetry 95 Oxygen Delivery Room Air Oxygen Flow Rate 03/28/24 14:00 03/28/24 14:00 03/28/24 16:00 Temperature 99.0 F Pulse Rate 120 H 120 H 123 H Respiratory Rate 20 21 H Blood Pressure 105/59 L 123/70 Pulse Oximetry 96 96 Oxygen Delivery Oxygen Flow Rate 03/28/24 16:00 03/28/24 16:00 03/28/24 16:27 Temperature 99.0 F Pulse Rate 118 H 118 H 121 H Respiratory Rate 19 25 H Blood Pressure 134/70 Pulse Oximetry 100 97 Oxygen Delivery Room Air Oxygen Flow Rate 03/28/24 16:46 03/28/24 17:46 03/28/24 18:00 Temperature 97.8 F 99.0 F Pulse Rate 115 H 115 H 117 H Respiratory Rate 21 H 20 Blood Pressure 131/75 136/80 Pulse Oximetry 98 98 Oxygen Delivery Oxygen Flow Rate 03/28/24 18:00 03/28/24 18:40 03/28/24 20:00 Temperature 98.8 F Pulse Rate 117 H 117 H 115 H Respiratory Rate 20 20 21 H Blood Pressure 137/78 137/78 Pulse Oximetry 96 96 97 Oxygen Delivery Nasal Cannula Oxygen Flow Rate 2 03/28/24 20:00 03/28/24 20:00 03/28/24 22:00 Temperature 99.1 F Pulse Rate 114 H 124 H 105 H Respiratory Rate 21 H Blood Pressure 147/88 H Pulse Oximetry 97 Oxygen Delivery Oxygen Flow Rate 03/28/24 22:00 03/29/24 00:00 03/29/24 00:00 Temperature Pulse Rate 105 H 109 H Respiratory Rate 22 H 22 H Blood Pressure 125/70 Pulse Oximetry 100 96 97 Oxygen Delivery Nasal Cannula Nasal Cannula Oxygen Flow Rate 2 2 03/29/24 00:00 03/29/24 01:07 03/29/24 01:45 Temperature 97.7 F Pulse Rate 107 H 109 H 104 H Respiratory Rate 22 H Blood Pressure 124/71 Pulse Oximetry 97 Oxygen Delivery Oxygen Flow Rate 03/29/24 01:45 03/29/24 03:25 03/29/24 04:00 Temperature Pulse Rate 105 H 105 H 107 H Respiratory Rate 15 21 H Blood Pressure 129/82 Pulse Oximetry 96 100 Oxygen Delivery Nasal Cannula Oxygen Flow Rate 2 03/29/24 04:00 03/29/24 06:00 03/29/24 06:00 Temperature 98.2 F Pulse Rate 107 H 111 H 111 H Respiratory Rate 20 19 Blood Pressure 121/74 133/86 Pulse Oximetry 97 99 Oxygen Delivery Oxygen Flow Rate 03/29/24 08:00 03/29/24 08:00 03/29/24 08:00 Temperature 98.4 F Pulse Rate 110 H 112 H 113 H Respiratory Rate 23 H 23 H Blood Pressure 164/99 H Pulse Oximetry 99 99 Oxygen Delivery Room Air Oxygen Flow Rate 03/29/24 10:00 Temperature 97.5 F L Pulse Rate 111 H Respiratory Rate 22 H Blood Pressure 118/68 Pulse Oximetry 96 Oxygen Delivery Oxygen Flow Rate Intake/Output Intake/Output: Intake & Output 03/26/24 03/27/24 03/28/24 03/29/24 23:59 23:59 23:59 23:59 Intake Total 1321.5 1640.6 Output Total 1360 710 Balance -38.5 930.6 Meds/Results Medications: Active Medications Generic Name Dose Route Start Last Admin Trade Name Freq PRN Reason Stop Dose Admin Acetaminophen 650 mg 03/28/24 07:22 03/29/24 02:41 Acetaminophen 325 Mg Tablet PO 650 mg Q6H PRN Administration Mild Pain (1-3) or Fever Hydrocodone Bitart/Acetaminophen 1 tab 03/28/24 00:08 03/28/24 04:34 Hydrocodone/Acetaminophen (*Crx) 5-325 Mg Tablet PO 1 tab Q4H PRN Administration Pain Rated 4-6 Al Hydrox/Mg Hydrox/Simethicone 30 ml 03/28/24 00:13 Mag Hydrox/Al Hydrox/Simeth 30 Ml Udc PO QID PRN Dyspepsia Benzocaine 1 lozenge 03/28/24 00:08 Benzocaine/Menthol (*Bkc) 18 Ea Lozenge PO PRN PRN Sore Throat Calcium Carbonate 500 mg 03/28/24 09:00 Calcium Carbonate (Oscal) 500 Mg Tablet PO BID LILA Collagenase 1 applic 03/28/24 09:00 Collagenase Oint 30 Gm Tube TOPICAL QAM LILA Fluticasone Propionate 2 spray 03/28/24 00:08 Fluticasone Propionate 0.05% Na Spr 16 Gm Btl (*Bkc) NASAL DAILY PRN allergy symptoms Heparin Sodium (Porcine) 5,000 units 03/28/24 15:00 03/29/24 10:15 Heparin Sodium 5,000 Units/Ml Vial IV PUSH 5,000 units PRN PRN Administration aPTT less than 55 seconds Heparin Sodium (Porcine) 2,500 units 03/28/24 15:00 Heparin Sodium 5,000 Units/Ml Vial IV PUSH PRN PRN aPTT 55 - 70 seconds Cefepime HCl 2 gm in 50 mls @ 100 mls/hr 03/28/24 12:00 03/29/24 10:18 Maxipime 2 Gm/Ns 50 Ml IVPB Infused Q12HR LILA Infusion Metronidazole 500 mg in 100 mls @ 100 mls/hr 03/28/24 00:15 03/29/24 07:15 Flagyl 500 Mg/Iso Soln 100 Ml IVPB Infused Q8HR LILA Infusion Vancomycin HCl 1,000 mg in 250 mls @ 250 mls/hr 03/28/24 14:00 03/29/24 04:46 Vancomycin 1,000 Mg/Ns 250 Ml IVPB Infused Q12H LILA Infusion Heparin Sodium/Dextrose 25,000 units in 250 mls @ 15 mls/hr 03/28/24 15:00 03/29/24 10:14 Heparin Sodium/D5w 100 Units/Ml IV CONT 1,500 units/hr .[id number] LILA 15 mls/hr Titration Protocol 1,500 UNITS/HR Magnesium Hydroxide 30 ml 03/28/24 00:13 Magnesium Hydroxide Susp 30 Ml Udc PO DAILY PRN Constipation Methocarbamol 500 mg 03/28/24 00:08 Methocarbamol 500 Mg Tablet PO Q4H PRN muscle spasm Ondansetron HCl 4 mg 03/28/24 07:23 Ondansetron Inj 4 Mg/2 Ml Vial IV PUSH Q6H PRN Nausea And Vomiting Perflutren Lipid Microsphere 0 ml 03/28/24 11:28 Perflutren Lipid Microspheres 1.5 Ml Vial Diluted To 10 Ml Total Volume IV PUSH 03/31/24 11:28 ONCE PRN adequate visualization Protocol Potassium Chloride 40 meq 03/29/24 14:15 Potassium Chloride 20 Meq Er Tablet PO 03/29/24 14:16 ONCE ONE Silver Sulfadiazine 1 applic 03/28/24 09:00 Silver Sulfadiazine 1% Cr 400 Gm Jar (*Bkc) TOPICAL DAILY LILA Sodium Hypochlorite 1 applic 03/28/24 09:00 03/29/24 09:19 Sod Hypochlorite 1/4 Strength 473 Ml TOPICAL 1 applic Q12HR LILA Administration Thiamine HCl 100 mg 03/29/24 09:00 03/29/24 09:19 Thiamine Hcl 200 Mg/2 Ml Vial IV PUSH 100 mg QAM LILA Administration Radiology Results: ITS Impressions Chest/Abdomen/Pelvis CT 03/28/24 12:00 IMPRESSION: 1. 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 2. 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 3. Very small bilateral pleural effusions with dependent atelectasis in the bilateral lower lobes. 4. Indeterminate 11 x 6 mm right lower lobe pulmonary nodule. Recommend malacia with any prior outside imaging. If unavailable would recommend 3 month follow-up low-dose noncontrast chest CT or PET/CT for further evaluation. 5. Cholelithiasis. 6. High attenuation fluid within the bladder and bilateral renal collecting systems suggesting excreted IV contrast with differential including hematuria. Correlate with clinical history and urinalysis. Chest X-Ray 03/29/24 07:05 Impression: COPD and/or chronic interstitial disease. Small left pleural effusion. Labs Labs: Laboratory Results - last 24 hr 03/28/24 03/28/24 03/28/24 06:58 07:00 15:23 WBC 28.5 H RBC 2.66 L Hgb 6.7 L* Hct 24.5 L MCV 92.1 D MCH 25.2 L MCHC 27.3 L RDW 17.9 H Plt Count 395 H MPV 9.5 Immature Gran % (Auto) 1.3 H Neut % (Auto) 91.6 H Lymph % (Auto) 3.2 L [place] % (Auto) 3.8 Eos % (Auto) 0.0 Baso % (Auto) 0.1 L Lymph # (Auto) 0.92 [place] # (Auto) 1.1 H Eos # (Auto) 0.0 Baso # (Auto) 0.0 Abs Immat Gran (auto) 0.38 H Absolute Neuts (auto) 26.0 H Absolute Nucleated RBC 0.000 Nucleated RBC % 0.0 Platelet Estimate Adequate Hypochromasia 1+ Poikilocytosis 1+ Ovalocytes Schistocytes Rare PT 18.3 H INR 1.5 APTT 30.5 Sodium Potassium Chloride Carbon Dioxide Anion Gap BUN Creatinine Estim Creat Clear Calc Estimated GFR Glucose Lactic Acid Calcium Phosphorus Magnesium Iron < 10 L TIBC 105 L % Saturation < 10 L Ferritin 275.00 H Total Bilirubin AST ALT Alkaline Phosphatase Total Protein Albumin Blood Type O Positive Antibody Screen Negative Crossmatch See Detail 03/29/24 03/29/24 01:01 08:10 WBC 22.1 H RBC 2.84 L Hgb 7.4 L Hct 23.6 L MCV 83.1 D MCH 26.1 MCHC 31.4 L RDW 16.9 H Plt Count 460 H MPV 8.8 Immature Gran % (Auto) 1.3 H Neut % (Auto) 88.2 H Lymph % (Auto) 6.0 L [place] % (Auto) 4.3 Eos % (Auto) 0.1 Baso % (Auto) 0.1 L Lymph # (Auto) 1.32 [place] # (Auto) 1.0 H Eos # (Auto) 0.0 Baso # (Auto) 0.0 Abs Immat Gran (auto) 0.28 H Absolute Neuts (auto) 19.5 H Absolute Nucleated RBC 0.000 Nucleated RBC % 0.0 Platelet Estimate Increased Hypochromasia 1+ Poikilocytosis Ovalocytes 1+ Schistocytes Rare PT INR APTT 32.5 40.3 H Sodium 134 L Potassium 3.3 L Chloride 106 Carbon Dioxide 26 Anion Gap 2 L BUN 6 L Creatinine 0.30 L Estim Creat Clear Calc 111 Estimated GFR > 60 Glucose 103 Lactic Acid 0.6 L Calcium 7.7 L Phosphorus 2.5 Magnesium 1.8 Iron TIBC % Saturation Ferritin Total Bilirubin 1.7 H AST 43 H ALT 14 Alkaline Phosphatase 114 Total Protein 5.0 L Albumin 2.5 L Blood Type Antibody Screen Crossmatch
--- NOTE | 2024-03-29 12:01 | PC.NURSE ---
PT has increased restlessness, pulling at IV lines, monitor cords, is Alert to self and year but unsure of what hospital she is at. PT is moresuspicious today, states staff are lying to her. THis RN has reviewed every medication being given before adminsitration, has explained the plan of care as well. PT states she just wants to know what is going on . PT has removed another IV line, notified Dr Morton who gave order for mitt restraints. ORder read back and verified.
--- NOTE | 2024-03-29 12:45 | PC.NURSE ---
Dr Hackett at bedside to see the patient. Received order to change transfer order to IMU. Notified cardiology of review PT due to her currently being in afib with a rate of 130. Dr Gonzales to review and place orders
--- NOTE | 2024-03-29 12:45 | PC.NURSE ---
Lifted pt with in room lift and zeroed the bed. New weight placed in chart.
--- NOTE | 2024-03-29 13:34 | PM.PNCARD ---
Progress Note: A&P Assessment and Plan (1) Atrial fibrillation with RVR: Code(s): I48.91 - Unspecified atrial fibrillation Status: Acute Plan Assessment: 1. New onset parxoysmal atrial fibrillation with RVR secondary to sepsis - asymptomatic; [id number] score 3 (age >75, female sex) 2. Chronic iron deficiency anemia, requiring blood transfusion this admission 3. Sepsis secondary to infected decubitus ulcer; osteomyelitis on CT 4. Hypokalemia 5. Hypotension secondary to sepsis - now resolved Plan: -Anticoagulation indicated for stroke risk reduction, currently on Heparin drip, will switch to therapeutic Lovenox. Recommend NOAC prior to discharge. -Start Metoprolol 26mg Q6H. PRN IV Metoprolol ordered. -Replace potassium and other electrolytes as needed. Keep K>4 and Mg>2 Subjective Date/time seen: 03/29/24 13:34 Interval history: Reason for visit: Atrial fibrillation with RVR HPI: Ms. Hoskins is a 78-year-old female with PMH of dysphagia, fracture of the left tibia, insomnia, spondylosis of cervical joint, vitamin-A deficiency, sacral decubitus ulcer s/p excisional debridement and eventual diverting colostomy, chronic iron deficiency anemia who was admitted for sepsis secondary to infected decubitus ulcer with purulent drainage, CHRISTIANA, and failure to thrive. She was noted to have atrial fibrillation and Cardiology was consulted for new onset atrial fibrillation with rapid ventricular response. Patient was treated with IV diltiazem and digoxin for her A fib. Her heart rates are in the 120s to 130s range at the time of my interview with her. She states that she has never had atrial fibrillation in the past. She denies any chest pain, shortness of breath, palpitations, dizziness, lightheadedness, presyncope, or syncope. She reports bilateral lower extremity swelling and some swelling in her upper extremities. She denies recent weight gain. No pain, nausea, emesis, abdominal pain, headache. She does not have any other cardiac history. She has no family history of premature CAD. Date of service 03/29: Has paroxysmal AFIB on tele, currently in RVR with heart rates in the 130s. Review of Systems Review of Systems: All systems reviewed & are unremarkable except as noted in HPI and below (HPI) Exam Const: General: no acute distress Eyes: General: appearance normal, both eyes and all related structures Sclera: sclerae normal Resp: Effort & Inspection: normal respiratory effort Cardio: Rate: tachycardic Rhythm: abnormal rhythm irregularly irregular Neuro: Speech: normal speech Objective Data Vital Signs Vital Signs: Vital Signs - 24 hr 03/28/24 14:00 03/28/24 14:00 03/28/24 16:00 Temperature 37.2 C Pulse Rate 120 H 120 H 123 H Respiratory Rate 20 21 H Blood Pressure 105/59 L 123/70 Pulse Oximetry 96 96 Oxygen Delivery Oxygen Flow Rate 03/28/24 16:00 03/28/24 16:00 03/28/24 16:27 Temperature 37.2 C Pulse Rate 118 H 118 H 121 H Respiratory Rate 19 25 H Blood Pressure 134/70 Pulse Oximetry 100 97 Oxygen Delivery Room Air Oxygen Flow Rate 03/28/24 16:46 03/28/24 17:46 03/28/24 18:00 Temperature 36.6 C 37.2 C Pulse Rate 115 H 115 H 117 H Respiratory Rate 21 H 20 Blood Pressure 131/75 136/80 Pulse Oximetry 98 98 Oxygen Delivery Oxygen Flow Rate 03/28/24 18:00 03/28/24 18:40 03/28/24 20:00 Temperature 37.1 C Pulse Rate 117 H 117 H 115 H Respiratory Rate 20 20 21 H Blood Pressure 137/78 137/78 Pulse Oximetry 96 96 97 Oxygen Delivery Nasal Cannula Oxygen Flow Rate 2 03/28/24 20:00 03/28/24 20:00 03/28/24 22:00 Temperature 37.3 C Pulse Rate 114 H 124 H 105 H Respiratory Rate 21 H Blood Pressure 147/88 H Pulse Oximetry 97 Oxygen Delivery Oxygen Flow Rate 03/28/24 22:00 03/29/24 00:00 03/29/24 00:00 Temperature Pulse Rate 105 H 109 H Respiratory Rate 22 H 22 H Blood Pressure 125/70 Pulse Oximetry 100 96 97 Oxygen Delivery Nasal Cannula Nasal Cannula Oxygen Flow Rate 2 2 03/29/24 00:00 03/29/24 01:07 03/29/24 01:45 Temperature 36.5 C Pulse Rate 107 H 109 H 104 H Respiratory Rate 22 H Blood Pressure 124/71 Pulse Oximetry 97 Oxygen Delivery Oxygen Flow Rate 03/29/24 01:45 03/29/24 03:25 03/29/24 04:00 Temperature Pulse Rate 105 H 105 H 107 H Respiratory Rate 15 21 H Blood Pressure 129/82 Pulse Oximetry 96 100 Oxygen Delivery Nasal Cannula Oxygen Flow Rate 2 03/29/24 04:00 03/29/24 06:00 03/29/24 06:00 Temperature 36.8 C Pulse Rate 107 H 111 H 111 H Respiratory Rate 20 19 Blood Pressure 121/74 133/86 Pulse Oximetry 97 99 Oxygen Delivery Oxygen Flow Rate 03/29/24 08:00 03/29/24 08:00 03/29/24 08:00 Temperature 36.9 C Pulse Rate 110 H 112 H 113 H Respiratory Rate 23 H 23 H Blood Pressure 164/99 H Pulse Oximetry 99 99 Oxygen Delivery Room Air Oxygen Flow Rate 03/29/24 10:00 03/29/24 10:00 03/29/24 12:00 Temperature 36.4 C L 36.9 C Pulse Rate 111 H 106 H 120 H Respiratory Rate 22 H 25 H Blood Pressure 118/68 138/88 Pulse Oximetry 96 93 Oxygen Delivery Oxygen Flow Rate 03/29/24 12:00 03/29/24 12:00 Temperature Pulse Rate 122 H Respiratory Rate Blood Pressure Pulse Oximetry Oxygen Delivery Room Air Oxygen Flow Rate Intake/Output Intake/Output: Intake & Output 03/26/24 03/27/24 03/28/24 03/29/24 23:59 23:59 23:59 23:59 Intake Total 1321.5 1760.6 Output Total 1360 710 Balance -38.5 1050.6 Meds/Results Medications: Active Medications Generic Name Dose Route Start Last Admin Trade Name Freq PRN Reason Stop Dose Admin Acetaminophen 650 mg 03/28/24 07:22 03/29/24 02:41 Acetaminophen 325 Mg Tablet PO 650 mg Q6H PRN Administration Mild Pain (1-3) or Fever Hydrocodone Bitart/Acetaminophen 1 tab 03/28/24 00:08 03/28/24 04:34 Hydrocodone/Acetaminophen (*Crx) 5-325 Mg Tablet PO 1 tab Q4H PRN Administration Pain Rated 4-6 Al Hydrox/Mg Hydrox/Simethicone 30 ml 03/28/24 00:13 Mag Hydrox/Al Hydrox/Simeth 30 Ml Udc PO QID PRN Dyspepsia Benzocaine 1 lozenge 03/28/24 00:08 Benzocaine/Menthol (*Bkc) 18 Ea Lozenge PO PRN PRN Sore Throat Calcium Carbonate 500 mg 03/28/24 09:00 Calcium Carbonate (Oscal) 500 Mg Tablet PO BID LILA Collagenase 1 applic 03/28/24 09:00 Collagenase Oint 30 Gm Tube TOPICAL QAM [facility] Fluticasone Propionate 2 spray 03/28/24 00:08 Fluticasone Propionate 0.05% Na Spr 16 Gm Btl (*Bkc) NASAL DAILY PRN allergy symptoms Heparin Sodium (Porcine) 5,000 units 03/28/24 15:00 03/29/24 10:15 Heparin Sodium 5,000 Units/Ml Vial IV PUSH 5,000 units PRN PRN Administration aPTT less than 55 seconds Heparin Sodium (Porcine) 2,500 units 03/28/24 15:00 Heparin Sodium 5,000 Units/Ml Vial IV PUSH PRN PRN aPTT 55 - 70 seconds Cefepime HCl 2 gm in 50 mls @ 100 mls/hr 03/28/24 12:00 03/29/24 10:18 Maxipime 2 Gm/Ns 50 Ml IVPB Infused Q12HR LILA Infusion Metronidazole 500 mg in 100 mls @ 100 mls/hr 03/28/24 00:15 03/29/24 07:15 Flagyl 500 Mg/Iso Soln 100 Ml IVPB Infused Q8HR LILA Infusion Vancomycin HCl 1,000 mg in 250 mls @ 250 mls/hr 03/28/24 14:00 03/29/24 04:46 Vancomycin 1,000 Mg/Ns 250 Ml IVPB Infused Q12H LILA Infusion Heparin Sodium/Dextrose 25,000 units in 250 mls @ 15 mls/hr 03/28/24 15:00 03/29/24 10:14 Heparin Sodium/D5w 100 Units/Ml IV CONT 1,500 units/hr .[id number] LILA 15 mls/hr Titration Protocol 1,500 UNITS/HR Magnesium Hydroxide 30 ml 03/28/24 00:13 Magnesium Hydroxide Susp 30 Ml Udc PO DAILY PRN Constipation Methocarbamol 500 mg 03/28/24 00:08 Methocarbamol 500 Mg Tablet PO Q4H PRN muscle spasm Metoprolol Tartrate 25 mg 03/29/24 13:20 Metoprolol Tartrate 25 Mg Tablet PO Q6H [facility] Metoprolol Tartrate 5 mg 03/29/24 13:18 Metoprolol Tartrate Inj 5 Mg/5 Ml Vial IV PUSH Q4H PRN Tachycardia Ondansetron HCl 4 mg 03/28/24 07:23 Ondansetron Inj 4 Mg/2 Ml Vial IV PUSH Q6H PRN Nausea And Vomiting Perflutren Lipid Microsphere 0 ml 03/28/24 11:28 Perflutren Lipid Microspheres 1.5 Ml Vial Diluted To 10 Ml Total Volume IV PUSH 03/31/24 11:28 ONCE PRN adequate visualization Protocol Potassium Chloride 40 meq 03/29/24 14:15 Potassium Chloride 20 Meq Er Tablet PO 03/29/24 14:16 ONCE ONE Silver Sulfadiazine 1 applic 03/28/24 09:00 Silver Sulfadiazine 1% Cr 400 Gm Jar (*Bkc) TOPICAL DAILY LILA Sodium Hypochlorite 1 applic 03/28/24 09:00 03/29/24 09:19 Sod Hypochlorite 1/4 Strength 473 Ml TOPICAL 1 applic Q12HR LILA Administration Thiamine HCl 100 mg 03/29/24 09:00 03/29/24 09:19 Thiamine Hcl 200 Mg/2 Ml Vial IV PUSH 100 mg QAM LILA Administration Radiology Results: ITS Impressions Chest/Abdomen/Pelvis CT 03/28/24 12:00 IMPRESSION: 1. 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 2. 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 3. Very small bilateral pleural effusions with dependent atelectasis in the bilateral lower lobes. 4. Indeterminate 11 x 6 mm right lower lobe pulmonary nodule. Recommend malacia with any prior outside imaging. If unavailable would recommend 3 month follow-up low-dose noncontrast chest CT or PET/CT for further evaluation. 5. Cholelithiasis. 6. High attenuation fluid within the bladder and bilateral renal collecting systems suggesting excreted IV contrast with differential including hematuria. Correlate with clinical history and urinalysis. Chest X-Ray 03/29/24 07:05 Impression: COPD and/or chronic interstitial disease. Small left pleural effusion. Labs Labs: Laboratory Results - last 24 hr 03/28/24 03/28/24 03/29/24 06:58 15:23 01:01 WBC 28.5 H 22.1 H RBC 2.66 L 2.84 L Hgb 6.7 L* 7.4 L Hct 24.5 L 23.6 L MCV 92.1 D 83.1 D MCH 25.2 L 26.1 MCHC 27.3 L 31.4 L RDW 17.9 H 16.9 H Plt Count 395 H 460 H MPV 9.5 8.8 Immature Gran % (Auto) 1.3 H 1.3 H Neut % (Auto) 91.6 H 88.2 H Lymph % (Auto) 3.2 L 6.0 L [place] % (Auto) 3.8 4.3 Eos % (Auto) 0.0 0.1 Baso % (Auto) 0.1 L 0.1 L Lymph # (Auto) 0.92 1.32 [place] # (Auto) 1.1 H 1.0 H Eos # (Auto) 0.0 0.0 Baso # (Auto) 0.0 0.0 Abs Immat Gran (auto) 0.38 H 0.28 H Absolute Neuts (auto) 26.0 H 19.5 H Absolute Nucleated RBC 0.000 0.000 Nucleated RBC % 0.0 0.0 Platelet Estimate Adequate Increased Hypochromasia 1+ 1+ Poikilocytosis 1+ Ovalocytes 1+ Schistocytes Rare Rare PT 18.3 H INR 1.5 APTT 30.5 32.5 Sodium 134 L Potassium 3.3 L Chloride 106 Carbon Dioxide 26 Anion Gap 2 L BUN 6 L Creatinine 0.30 L Estim Creat Clear Calc 111 Estimated GFR > 60 Glucose 103 Lactic Acid 0.6 L Calcium 7.7 L Phosphorus 2.5 Magnesium 1.8 Total Bilirubin 1.7 H AST 43 H ALT 14 Alkaline Phosphatase 114 Total Protein 5.0 L Albumin 2.5 L Blood Type O Positive Antibody Screen Negative Crossmatch See Detail 03/29/24 08:10 WBC RBC Hgb Hct MCV MCH MCHC RDW Plt Count MPV Immature Gran % (Auto) Neut % (Auto) Lymph % (Auto) [place] % (Auto) Eos % (Auto) Baso % (Auto) Lymph # (Auto) [place] # (Auto) Eos # (Auto) Baso # (Auto) Abs Immat Gran (auto) Absolute Neuts (auto) Absolute Nucleated RBC Nucleated RBC % Platelet Estimate Hypochromasia Poikilocytosis Ovalocytes Schistocytes PT INR APTT 40.3 H Sodium Potassium Chloride Carbon Dioxide Anion Gap BUN Creatinine Estim Creat Clear Calc Estimated GFR Glucose Lactic Acid Calcium Phosphorus Magnesium Total Bilirubin AST ALT Alkaline Phosphatase Total Protein Albumin Blood Type Antibody Screen Crossmatch
[2024-03-29 13:36] LABS: Vancomycin Trough 11.5 ug/mL (10.0-20.0)
[2024-03-29] MEDS: METOPROLOL TARTRATE 25 MG TABLET PO ×2 (14:36→18:18)
[2024-03-29] MEDS: VANCOMYCIN 1,500 MG/NS 500 ML 1,500 MG/500 ML BAG 250 MG IVPB (14:38)
[2024-03-29] MEDS: ENOXAPARIN 80 MG/0.8 ML SYRINGE 77 MG SUB-Q (14:38)
[2024-03-29] MEDS: METOPROLOL TARTRATE INJ 5 MG/5 ML VIAL IV PUSH (15:49)
[2024-03-29] MEDS: HYDROcodone/acetaminophen (*CRX) 5-325 MG TABLET 1 TAB PO ×2 (17:34→22:26)
--- NOTE | 2024-03-29 18:37 | PC.NURSE ---
Report given to Penny Rodriguez (daughter) at bedside and updated on PT transfer. PT transferred to IMU.
[2024-03-30] VITALS (14 sets, daily range): BP systolic 97–133; BP diastolic 59–79; PULSE 88–133; RESP 8–20; TEMP 37.2–37.3; O2SAT 96–99
[2024-03-30] MEDS: ENOXAPARIN 80 MG/0.8 ML SYRINGE 77 MG SUB-Q ×2 (02:21→14:03)
[2024-03-30] MEDS: VANCOMYCIN 1,500 MG/NS 500 ML 1,500 MG/500 ML BAG 250 MG IVPB ×2 (02:21→16:05)
[2024-03-30] MEDS: METOPROLOL TARTRATE 25 MG TABLET PO ×4 (02:22→20:23)
[2024-03-30 05:13] LABS: Estimated CRCL calculation 127 ml/min; Estimated Glomerular Filt Rate > 60
[2024-03-30] MEDS: metroNIDAZOLE 500 MG/ISO 100ML 500 MG/100 ML BAG 100 MG IVPB ×3 (05:51→22:47)
[2024-03-30 07:35] LABS: Glucose Point of Care 74 mg/dl (65-105)
[2024-03-30] MEDS: FERROUS SULFATE 325 MG TABLET DR PO (07:59)
[2024-03-30] MEDS: CEFEPIME 2 GM/NS 50 ML 2 GM/50 ML BAG IVPB ×2 (07:59→20:23)
[2024-03-30] MEDS: THIAMINE HCL 200 MG/2 ML VIAL 100 MG IV PUSH (07:59)
[2024-03-30] MEDS: SOD HYPOCHLORITE 1/4 STRENGTH 473 ML 1 APPLIC TOPICAL ×2 (08:00→20:24)
--- NOTE | 2024-03-30 09:36 | P.PNIM_ITS ---
Progress Note: A&P Assessment and Plan (1) Severe sepsis: Code(s): A41.9 - Sepsis, unspecified organism; R65.20 - Severe sepsis without septic shock Status: Acute (2) Iron deficiency anemia: Code(s): D50.9 - Iron deficiency anemia, unspecified Status: Acute (3) Adult failure to thrive: Code(s): R62.7 - Adult failure to thrive Status: Acute (4) Uremic encephalopathy: Code(s): G93.49 - Other encephalopathy; N19 - Unspecified kidney failure Status: Acute (5) Decubitus ulcer: Qualifiers: Pressure injury location: sacral region Pressure injury stage: stage 4 Qualified Code(s): L89.154 - Pressure ulcer of sacral region, stage 4 Code(s): L89.90 - Pressure ulcer of unspecified site, unspecified stage Status: Acute (6) Atrial fibrillation with RVR: Code(s): I48.91 - Unspecified atrial fibrillation Status: Acute (7) Hypotension: Code(s): I95.9 - Hypotension, unspecified Status: Acute (8) CHRISTIANA (acute kidney injury): Code(s): N17.9 - Acute kidney failure, unspecified Status: Acute Plan Severe sepsis: Code(s): A41.9 - Sepsis, unspecified organism; R65.20 - Severe sepsis without septic shock Status: Acute Assessment and Plan: Patient presented the outside hospital lactic acidosis, hypotension, tachycardia, leukocytosis -source of infection: Decubitus ulcer with purulent drainage, UTI, possible pneumonia -received adequate amount of IV fluids at the outside hospital -lactic acidosis has resolved -will give additional albumin for volume expansion -03/28: Blood cultures: No growth -03/28: Urine cultures: Contaminated with genital floors on cefepime, Flagyl and vancomycin (03/28) deescalate antibiotics once the cultures are resulted off pressors at this time leukocytosis improving CXR 03/29 COPD and/or chronic interstitial disease.Small left pleural effusion. Decubitus ulcer: Qualifiers: Pressure injury location: sacral region Pressure injury stage: stage 4 Qualified Code(s): L89.154 - Pressure ulcer of sacral region, stage 4 Code(s): L89.90 - Pressure ulcer of unspecified site, unspecified stage Status: Acute Assessment and Plan: 14 cm x 15 cm decubitus ulcer at the coccyx. purulent drainage, pictures have been reviewed -surgery evaluated noted no surgical intervention and recommends continuing abx and wound care wound Care following Wound culture grows Pseudomonas aeruginosa susceptible to cefepime, Levaquin, also growth of Proteus mirabilis susceptible to Augmentin and Unasyn Lab showed leukocytosis persists, 28,300 Follow-up procalcitonin Continue current treatment Repeat wound culture Atrial fibrillation with RVR: Code(s): I48.91 - Unspecified atrial fibrillation Status: Acute Assessment and Plan: Patient went to AFib RVR overnight likely related to severe sepsis, does not of a history of atrial fibrillation -patient quickly converted back to sinus rhythm with digoxin and diltiazem IV continue Metoprolol and Heparin infusion per cards cards following Rate is not controlled, telemetry showed monitor about 130 Encephalopathy: Code(s): G93.40 - Encephalopathy, unspecified Status: Acute Assessment and Plan: Patient presented the outside hospital with acute altered mental status, likely related to hypotension and sepsis Currently patient is oriented place, person, possible baseline now continue to monitor and treat underlying cause Iron deficiency anemia: Code(s): D50.9 - Iron deficiency anemia, unspecified Status: Acute Assessment and Plan: Hemoglobin dropped to , transfused 1 unit of packed RBCs -monitor H&H - Iron panel: Iron level low Start ferrous sulfate 325 mg once daily Protein-calorie malnutrition, severe: Code(s): E43 - Unspecified severe protein-calorie malnutrition Status: Acute Assessment and Plan: Albumin is 1.8 -severe protein calorie malnutrition -dietitian has been consulted advance diet Electrolyte abnormality: Code(s): E87.8 - Other disorders of electrolyte and fluid balance, not elsewhere classified Status: Acute Assessment and Plan: Replace potassium and magnesium Plan DVT prophylaxis: Heparin subQ Stress ulcer prophylaxis: Not indicated Nutrition: Diabetic consistent diet Code Status: Do not resuscitate Subjective Date/time seen: 03/30/24 09:36 Interval history: I saw examined patient. Patient was lying in the bed, no obvious distress, patient feels better, denies chest pain abdomen pain nausea vomiting. Labs reviewed Exam Narrative: GENERAL: Pleasant, in no acute distress. Well-nourished. - EYES: EOMI. Anicteric. - HENT: Moist mucous membranes. - LUNGS: Clear to auscultation bilateral ly, no wheezing, rhonchi, or rales. - CARDIOVASCULAR: Regular rate and rhyth m. No murmur. No JVD. - ABDOMEN: Soft, non-tender and non-dist ended. No palpable masses. - EXTREMITIES: No edema. Peripheral puls es 2+. Non-tender. - NEUROLOGIC: No focal neurological defi cits. CN II-XII grossly intact. - PSYCHIATRIC: Awake, Alert and oriented x 3. Appropriate mood and affect. - SKIN: No rashes or lesions. Warm. - LYMPH: No cervical lymphadenopathy. Objective Data Vital Signs Vital Signs: Vital Signs - 24 hr 03/29/24 10:00 03/29/24 10:00 03/29/24 12:00 Temperature 97.5 F L 98.4 F Pulse Rate 111 H 106 H 120 H Respiratory Rate 22 H 25 H Blood Pressure 118/68 138/88 Pulse Oximetry 96 93 Oxygen Delivery Oxygen Flow Rate 03/29/24 12:00 03/29/24 12:00 03/29/24 14:00 Temperature 100.7 F H Pulse Rate 122 H 128 H Respiratory Rate 22 H Blood Pressure 120/67 Pulse Oximetry 93 Oxygen Delivery Room Air Oxygen Flow Rate 03/29/24 14:00 03/29/24 14:36 03/29/24 15:20 Temperature Pulse Rate 127 H 137 H 134 H Respiratory Rate 25 H Blood Pressure Pulse Oximetry 93 Oxygen Delivery Room Air Oxygen Flow Rate 03/29/24 15:49 03/29/24 16:00 03/29/24 16:00 Temperature 99.3 F Pulse Rate 131 H 97 131 H Respiratory Rate 25 H Blood Pressure 129/92 H Pulse Oximetry 93 Oxygen Delivery Oxygen Flow Rate 03/29/24 18:00 03/29/24 18:00 03/29/24 18:18 Temperature Pulse Rate 107 H 111 H 111 H Respiratory Rate Blood Pressure Pulse Oximetry Oxygen Delivery Oxygen Flow Rate 03/29/24 20:00 03/29/24 20:00 03/29/24 20:43 Temperature 98.3 F Pulse Rate 100 100 109 H Respiratory Rate 16 16 Blood Pressure 121/81 Pulse Oximetry 99 99 Oxygen Delivery Nasal Cannula Oxygen Flow Rate 2 03/29/24 22:00 03/30/24 00:00 03/30/24 00:00 Temperature Pulse Rate 102 H 101 H 101 H Respiratory Rate 16 Blood Pressure Pulse Oximetry 99 Oxygen Delivery Nasal Cannula Oxygen Flow Rate 2 03/30/24 00:00 03/30/24 02:00 03/30/24 02:22 Temperature 99.1 F Pulse Rate 112 H 101 H 100 Respiratory Rate 16 Blood Pressure 133/79 Pulse Oximetry 98 Oxygen Delivery Oxygen Flow Rate 03/30/24 04:00 03/30/24 04:00 03/30/24 04:18 Temperature 99.0 F Pulse Rate 101 H 100 98 Respiratory Rate 16 18 Blood Pressure 132/75 Pulse Oximetry 98 98 Oxygen Delivery Nasal Cannula Oxygen Flow Rate 2 03/30/24 06:00 03/30/24 07:28 03/30/24 07:59 Temperature Pulse Rate 88 102 H 114 H Respiratory Rate 20 Blood Pressure 124/75 Pulse Oximetry 99 Oxygen Delivery Oxygen Flow Rate Intake/Output Intake/Output: Intake & Output 03/27/24 03/28/24 03/29/24 03/30/24 23:59 23:59 23:59 23:59 Intake Total 1321.5 2750.6 600 Output Total 1360 1735 1150 Balance -38.5 1015.6 -550 Meds/Results Medications: Active Medications Generic Name Dose Route Start Last Admin Trade Name Freq PRN Reason Stop Dose Admin Acetaminophen 650 mg 03/28/24 07:22 03/29/24 02:41 Acetaminophen 325 Mg Tablet PO 650 mg Q6H PRN Administration Mild Pain (1-3) or Fever Hydrocodone Bitart/Acetaminophen 1 tab 03/28/24 00:08 03/29/24 22:26 Hydrocodone/Acetaminophen (*Crx) 5-325 Mg Tablet PO 1 tab Q4H PRN Administration Pain Rated 4-6 Al Hydrox/Mg Hydrox/Simethicone 30 ml 03/28/24 00:13 Mag Hydrox/Al Hydrox/Simeth 30 Ml Udc PO QID PRN Dyspepsia Benzocaine 1 lozenge 03/28/24 00:08 Benzocaine/Menthol (*Bkc) 18 Ea Lozenge PO PRN PRN Sore Throat Calcium Carbonate 500 mg 03/28/24 09:00 Calcium Carbonate (Oscal) 500 Mg Tablet PO BID LILA Collagenase 1 applic 03/28/24 09:00 Collagenase Oint 30 Gm Tube TOPICAL QAM [facility] Enoxaparin Sodium 77 mg 03/29/24 15:00 03/30/24 02:21 Enoxaparin 80 Mg/0.8 Ml Syringe SUB-Q 77 mg Q12H LILA Administration Ferrous Sulfate 325 mg 03/30/24 09:00 03/30/24 07:59 Ferrous Sulfate [address] PO 325 mg DAILY LILA Administration Fluticasone Propionate 2 spray 03/28/24 00:08 Fluticasone Propionate 0.05% Na Spr 16 Gm Btl (*Bkc) NASAL DAILY PRN allergy symptoms Cefepime HCl 2 gm in 50 mls @ 100 mls/hr 03/28/24 12:00 03/30/24 07:59 Maxipime 2 Gm/Ns 50 Ml IVPB 100 mls/hr Q12HR LILA Administration Metronidazole 500 mg in 100 mls @ 100 mls/hr 03/28/24 00:15 03/30/24 06:50 Flagyl 500 Mg/Iso Soln 100 Ml IVPB Infused Q8HR LILA Infusion Vancomycin HCl 1,500 mg in 500 mls @ 250 mls/hr 03/29/24 15:00 03/30/24 04:20 Vancomycin 1,500 Mg/Ns 500 Ml IVPB Infused Q12H LILA Infusion Magnesium Hydroxide 30 ml 03/28/24 00:13 Magnesium Hydroxide Susp 30 Ml Udc PO DAILY PRN Constipation Methocarbamol 500 mg 03/28/24 00:08 Methocarbamol 500 Mg Tablet PO Q4H PRN muscle spasm Metoprolol Tartrate 25 mg 03/29/24 13:20 03/30/24 07:59 Metoprolol Tartrate 25 Mg Tablet PO 25 mg Q6H LILA Administration Metoprolol Tartrate 5 mg 03/29/24 13:18 03/29/24 15:49 Metoprolol Tartrate Inj 5 Mg/5 Ml Vial IV PUSH 5 mg Q4H PRN Administration Tachycardia Ondansetron HCl 4 mg 03/28/24 07:23 Ondansetron Inj 4 Mg/2 Ml Vial IV PUSH Q6H PRN Nausea And Vomiting Perflutren Lipid Microsphere 0 ml 03/28/24 11:28 Perflutren Lipid Microspheres 1.5 Ml Vial Diluted To 10 Ml Total Volume IV PUSH 03/31/24 11:28 ONCE PRN adequate visualization Protocol Silver Sulfadiazine 1 applic 03/28/24 09:00 Silver Sulfadiazine 1% Cr 400 Gm Jar (*Bkc) TOPICAL DAILY LILA Sodium Hypochlorite 1 applic 03/28/24 09:00 03/30/24 08:00 Sod Hypochlorite 1/4 Strength 473 Ml TOPICAL 1 applic Q12HR LILA Administration Thiamine HCl 100 mg 03/29/24 09:00 03/30/24 07:59 Thiamine Hcl 200 Mg/2 Ml Vial IV PUSH 100 mg QAM LILA Administration Radiology Results: ITS Impressions Chest/Abdomen/Pelvis CT 03/28/24 12:00 IMPRESSION: 1. 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 2. 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 3. Very small bilateral pleural effusions with dependent atelectasis in the bilateral lower lobes. 4. Indeterminate 11 x 6 mm right lower lobe pulmonary nodule. Recommend malacia with any prior outside imaging. If unavailable would recommend 3 month follow-up low-dose noncontrast chest CT or PET/CT for further evaluation. 5. Cholelithiasis. 6. High attenuation fluid within the bladder and bilateral renal collecting systems suggesting excreted IV contrast with differential including hematuria. Correlate with clinical history and urinalysis. Chest X-Ray 03/29/24 07:05 Impression: COPD and/or chronic interstitial disease. Small left pleural effusion. Labs Labs: Laboratory Results - last 24 hr 03/29/24 03/29/24 03/30/24 08:10 12:59 04:50 APTT 40.3 H Creatinine 0.30 L Estim Creat Clear Calc 127 Estimated GFR > 60 POC Capillary Glucose Vancomycin Trough 11.5 03/30/24 07:27 APTT Creatinine Estim Creat Clear Calc Estimated GFR POC Capillary Glucose 74 Vancomycin Trough
[2024-03-30 10:40] LABS: Anion Gap 4 mmol/L (4-12); Blood Urea Nitrogen 6 mg/dL (7-17); Calcium 7.6 mg/dL (8.4-10.2); Carbon Dioxide 20 mmol/L (22-30); Chloride 109 mmol/L (98-107); Estimated CRCL calculation 127 ml/min; Estimated Glomerular Filt Rate > 60; Glucose 76 mg/dL (65-110); Potassium 4.3 mmol/L (3.4-5.0); Sodium 133 mmol/L (137-145)
[2024-03-30 10:54] LABS: Hematocrit 26.8 % (37.0-47.0); Hemoglobin 8.2 g/dL (12.0-15.0); Mean Corpuscular HGB Conc 30.6 g/dl (32-36); Mean Corpuscular Hemoglobin 25.9 pg (26-34); Mean Corpuscular Volume 84.8 fl (80-100); Mean Platelet Volume 9.1 fl (7.4-10.4); Platelet Count Result 555 k/mm3 (150-375); Red Blood Count 3.16 M/mm3 (4.2-5.4); Red Cell Distribution Width 17.4 % (11.5-14.5); White Blood Count 28.3 K/mm3 (4.5-10.0)
[2024-03-30 11:22] LABS: Anisocytosis 1+; Hypochromasia 1+; Platelet Estimate Adequate (Adequate)
[2024-03-30 11:23] LABS: Schistocytes None Seen
--- NOTE | 2024-03-30 12:54 | P.PNCA_ITS ---
Progress Note: A&P Assessment and Plan (1) Atrial fibrillation with RVR: Code(s): I48.91 - Unspecified atrial fibrillation Status: Acute Assessment and Plan: Assessment: 1. New onset parxoysmal atrial fibrillation with RVR secondary to sepsis - asymptomatic; [id number] score 3 (age >75, female sex) 2. Chronic iron deficiency anemia, requiring blood transfusion this admission- anticoagulation was started on this admission 3. Sepsis secondary to infected decubitus ulcer; osteomyelitis on CT- on broad- spectrum antibiotics 4. Hypokalemia 5. Hypotension secondary to sepsis - now resolved Plan Plan: -Anticoagulation indicated for stroke risk reduction, currently on therapeutic Lovenox. Recommend NOAC prior to discharge -Given chronic iron deficiency anemia with lowest Hg of 6.7 on this admission, she may be a good candidate for left atrial appendage occlusion -Treatment of iron deficiency anemia per primary team. Keep hemoglobin greater than 8 while she is on anticoagulation -she is on metoprolol 25 mg q.i.d. Can up titrate to 50 mg q.i.d as rates are still uncontrolled in the 110s to 130s. Given underlying sepsis and asymptomatic state, will continue beta-oli for now hoping that her rates will be better controlled as her infection gets treated. Also her systolic blood pressure is in the 120s to 130s range and she may not tolerate more medications that drop her blood pressure, particularly given the sepsis. The next option would be amiodarone if the increased dose of beta-oli does not help control her heart rate -Replace potassium and other electrolytes as needed. Keep K>4 and Mg>2 Subjective Date/time seen: 03/30/24 12:54 Interval history: Interval history: HPI: Ms. Hoskins is a 78-year-old female with PMH of dysphagia, fracture of the left tibia, insomnia, spondylosis of cervical joint, vitamin-A deficiency, sacral decubitus ulcer s/p excisional debridement and eventual diverting colostomy, chronic iron deficiency anemia who was admitted for sepsis secondary to infected decubitus ulcer with purulent drainage, CHRISTIANA, and failure to thrive. She was noted to have atrial fibrillation and Cardiology was consulted for new onset atrial fibrillation with rapid ventricular response. Patient was treated with IV diltiazem and digoxin for her A fib. Her heart rates are in the 120s to 130s range at the time of my interview with her. She states that she has never had atrial fibrillation in the past. She denies any chest pain, shortness of breath, palpitations, dizziness, lightheadedness, presyncope, or syncope. She reports bilateral lower extremity swelling and some swelling in her upper extremities. She denies recent weight gain. No pain, nausea, emesis, abdominal pain, headache. She does not have any other cardiac history. She has no family history of premature CAD. Date of service 03/30: Has paroxysmal AFIB on tele, currently in RVR with heart rates in the 130s. No chest pain, shortness of breath, palpitations, dizziness, or lightheadedness. Review of Systems Review of Systems: All systems reviewed & are unremarkable except as noted in HPI and below Exam Const: General: no acute distress Eyes: General: appearance normal, both eyes and all related structures Sclera: sclerae normal Resp: Effort & Inspection: normal respiratory effort Cardio: Rate: tachycardic Rhythm: abnormal rhythm irregularly irregular Neuro: Speech: normal speech Objective Data Vital Signs Vital Signs: Vital Signs - 24 hr 03/29/24 14:00 03/29/24 14:00 03/29/24 14:36 Temperature 38.2 C H Pulse Rate 128 H 127 H 137 H Respiratory Rate 22 H Blood Pressure 120/67 Pulse Oximetry 93 Oxygen Delivery Oxygen Flow Rate 03/29/24 15:20 03/29/24 15:49 03/29/24 16:00 Temperature Pulse Rate 134 H 131 H 97 Respiratory Rate 25 H Blood Pressure Pulse Oximetry 93 Oxygen Delivery Room Air Oxygen Flow Rate 03/29/24 16:00 03/29/24 18:00 03/29/24 18:00 Temperature 37.4 C Pulse Rate 131 H 107 H 111 H Respiratory Rate 25 H Blood Pressure 129/92 H Pulse Oximetry 93 Oxygen Delivery Oxygen Flow Rate 03/29/24 18:18 03/29/24 20:00 03/29/24 20:00 Temperature Pulse Rate 111 H 100 100 Respiratory Rate 16 Blood Pressure Pulse Oximetry 99 Oxygen Delivery Nasal Cannula Oxygen Flow Rate 2 03/29/24 20:43 03/29/24 22:00 03/30/24 00:00 Temperature 36.8 C Pulse Rate 109 H 102 H 101 H Respiratory Rate 16 16 Blood Pressure 121/81 Pulse Oximetry 99 99 Oxygen Delivery Nasal Cannula Oxygen Flow Rate 2 03/30/24 00:00 03/30/24 00:00 03/30/24 02:00 Temperature 37.3 C Pulse Rate 101 H 112 H 101 H Respiratory Rate 16 Blood Pressure 133/79 Pulse Oximetry 98 Oxygen Delivery Oxygen Flow Rate 03/30/24 02:22 03/30/24 04:00 03/30/24 04:00 Temperature Pulse Rate 100 101 H 100 Respiratory Rate 16 Blood Pressure Pulse Oximetry 98 Oxygen Delivery Nasal Cannula Oxygen Flow Rate 2 03/30/24 04:18 03/30/24 06:00 03/30/24 07:28 Temperature 37.2 C Pulse Rate 98 88 102 H Respiratory Rate 18 20 Blood Pressure 132/75 124/75 Pulse Oximetry 98 99 Oxygen Delivery Oxygen Flow Rate 03/30/24 07:59 03/30/24 08:00 03/30/24 08:00 Temperature Pulse Rate 114 H 114 H 114 H Respiratory Rate 20 Blood Pressure Pulse Oximetry 99 Oxygen Delivery Nasal Cannula Oxygen Flow Rate 2 03/30/24 10:00 Temperature Pulse Rate 93 Respiratory Rate Blood Pressure Pulse Oximetry Oxygen Delivery Oxygen Flow Rate Intake/Output Intake/Output: Intake & Output 03/27/24 03/28/24 03/29/24 03/30/24 23:59 23:59 23:59 23:59 Intake Total 1321.5 2750.6 650 Output Total 1360 1735 1150 Balance -38.5 1015.6 -500 Meds/Results Medications: Active Medications Generic Name Dose Route Start Last Admin Trade Name Freq PRN Reason Stop Dose Admin Acetaminophen 650 mg 03/28/24 07:22 03/29/24 02:41 Acetaminophen 325 Mg Tablet PO 650 mg Q6H PRN Administration Mild Pain (1-3) or Fever Hydrocodone Bitart/Acetaminophen 1 tab 03/28/24 00:08 03/29/24 22:26 Hydrocodone/Acetaminophen (*Crx) 5-325 Mg Tablet PO 1 tab Q4H PRN Administration Pain Rated 4-6 Al Hydrox/Mg Hydrox/Simethicone 30 ml 03/28/24 00:13 Mag Hydrox/Al Hydrox/Simeth 30 Ml Udc PO QID PRN Dyspepsia Benzocaine 1 lozenge 03/28/24 00:08 Benzocaine/Menthol (*Bkc) 18 Ea Lozenge PO PRN PRN Sore Throat Calcium Carbonate 500 mg 03/28/24 09:00 Calcium Carbonate (Oscal) 500 Mg Tablet PO BID LILA Collagenase 1 applic 03/28/24 09:00 Collagenase Oint 30 Gm Tube TOPICAL QAM [facility] Enoxaparin Sodium 77 mg 03/29/24 15:00 03/30/24 02:21 Enoxaparin 80 Mg/0.8 Ml Syringe SUB-Q 77 mg Q12H LILA Administration Ferrous Sulfate 325 mg 03/30/24 09:00 03/30/24 07:59 Ferrous Sulfate [address] PO 325 mg DAILY LILA Administration Fluticasone Propionate 2 spray 03/28/24 00:08 Fluticasone Propionate 0.05% Na Spr 16 Gm Btl (*Bkc) NASAL DAILY PRN allergy symptoms Cefepime HCl 2 gm in 50 mls @ 100 mls/hr 03/28/24 12:00 03/30/24 07:59 Maxipime 2 Gm/Ns 50 Ml IVPB 100 mls/hr Q12HR LILA Administration Metronidazole 500 mg in 100 mls @ 100 mls/hr 03/28/24 00:15 03/30/24 06:50 Flagyl 500 Mg/Iso Soln 100 Ml IVPB Infused Q8HR LILA Infusion Vancomycin HCl 1,500 mg in 500 mls @ 250 mls/hr 03/29/24 15:00 03/30/24 04:20 Vancomycin 1,500 Mg/Ns 500 Ml IVPB Infused Q12H LILA Infusion Magnesium Hydroxide 30 ml 03/28/24 00:13 Magnesium Hydroxide Susp 30 Ml Udc PO DAILY PRN Constipation Methocarbamol 500 mg 03/28/24 00:08 Methocarbamol 500 Mg Tablet PO Q4H PRN muscle spasm Metoprolol Tartrate 25 mg 03/29/24 13:20 03/30/24 07:59 Metoprolol Tartrate 25 Mg Tablet PO 25 mg Q6H LILA Administration Metoprolol Tartrate 5 mg 03/29/24 13:18 03/29/24 15:49 Metoprolol Tartrate Inj 5 Mg/5 Ml Vial IV PUSH 5 mg Q4H PRN Administration Tachycardia Ondansetron HCl 4 mg 03/28/24 07:23 Ondansetron Inj 4 Mg/2 Ml Vial IV PUSH Q6H PRN Nausea And Vomiting Perflutren Lipid Microsphere 0 ml 03/28/24 11:28 Perflutren Lipid Microspheres 1.5 Ml Vial Diluted To 10 Ml Total Volume IV PUSH 03/31/24 11:28 ONCE PRN adequate visualization Protocol Silver Sulfadiazine 1 applic 03/28/24 09:00 Silver Sulfadiazine 1% Cr 400 Gm Jar (*Bkc) TOPICAL DAILY LILA Sodium Hypochlorite 1 applic 03/28/24 09:00 03/30/24 08:00 Sod Hypochlorite 1/4 Strength 473 Ml TOPICAL 1 applic Q12HR LILA Administration Thiamine HCl 100 mg 03/29/24 09:00 03/30/24 07:59 Thiamine Hcl 200 Mg/2 Ml Vial IV PUSH 100 mg QAM LILA Administration Radiology Results: ITS Impressions Chest/Abdomen/Pelvis CT 03/28/24 12:00 IMPRESSION: 1. 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 2. 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 3. Very small bilateral pleural effusions with dependent atelectasis in the bilateral lower lobes. 4. Indeterminate 11 x 6 mm right lower lobe pulmonary nodule. Recommend malacia with any prior outside imaging. If unavailable would recommend 3 month follow-up low-dose noncontrast chest CT or PET/CT for further evaluation. 5. Cholelithiasis. 6. High attenuation fluid within the bladder and bilateral renal collecting systems suggesting excreted IV contrast with differential including hematuria. Correlate with clinical history and urinalysis. Chest X-Ray 03/29/24 07:05 Impression: COPD and/or chronic interstitial disease. Small left pleural effusion. Labs Labs: Laboratory Results - last 24 hr 03/29/24 03/30/24 03/30/24 12:59 04:50 04:50 WBC RBC Hgb Hct MCV MCH MCHC RDW Plt Count MPV Immature Gran % (Auto) Neut % (Auto) Lymph % (Auto) Bacon % (Auto) Eos % (Auto) Baso % (Auto) Lymph # (Auto) Bacon # (Auto) Eos # (Auto) Baso # (Auto) Abs Immat Gran (auto) Absolute Neuts (auto) Absolute Nucleated RBC Nucleated RBC % Platelet Estimate Hypochromasia Anisocytosis Schistocytes Sodium 133 L Potassium 4.3 Chloride 109 H Carbon Dioxide 20 L Anion Gap 4 BUN 6 L Creatinine 0.30 L 0.30 L Estim Creat Clear Calc 127 Estimated GFR Glucose POC Capillary Glucose Calcium Vancomycin Trough 11.5 03/30/24 03/30/24 03/30/24 04:50 04:50 07:27 WBC RBC Hgb Hct MCV MCH MCHC RDW Plt Count MPV Immature Gran % (Auto) Neut % (Auto) Lymph % (Auto) Bacon % (Auto) Eos % (Auto) Baso % (Auto) Lymph # (Auto) Bacon # (Auto) Eos # (Auto) Baso # (Auto) Abs Immat Gran (auto) Absolute Neuts (auto) Absolute Nucleated RBC Nucleated RBC % Platelet Estimate Hypochromasia Anisocytosis Schistocytes Sodium Potassium Chloride Carbon Dioxide Anion Gap BUN Creatinine Estim Creat Clear Calc 127 Estimated GFR > 60 > 60 Glucose 76 POC Capillary Glucose 74 Calcium 7.6 L Vancomycin Trough 03/30/24 10:49 WBC 28.3 H RBC 3.16 L Hgb 8.2 L Hct 26.8 L MCV 84.8 MCH 25.9 L MCHC 30.6 L RDW 17.4 H Plt Count 555 H MPV 9.1 Immature Gran % (Auto) Not Reportable Neut % (Auto) Not Reportable Lymph % (Auto) Not Reportable Bacon % (Auto) Not Reportable Eos % (Auto) Not Reportable Baso % (Auto) Not Reportable Lymph # (Auto) Not Reportable Bacon # (Auto) Not Reportable Eos # (Auto) Not Reportable Baso # (Auto) Not Reportable Abs Immat Gran (auto) Not Reportable Absolute Neuts (auto) Not Reportable Absolute Nucleated RBC Not Reportable Nucleated RBC % Not Reportable Platelet Estimate Adequate Hypochromasia 1+ Anisocytosis 1+ Schistocytes None seen Sodium Potassium Chloride Carbon Dioxide Anion Gap BUN Creatinine Estim Creat Clear Calc Estimated GFR Glucose POC Capillary Glucose Calcium Vancomycin Trough
[2024-03-30] MEDS: HYDROcodone/acetaminophen (*CRX) 5-325 MG TABLET 1 TAB PO (14:01)
[2024-03-31] VITALS (9 sets, daily range): BP systolic 100–121; BP diastolic 59–68; PULSE 81–127; RESP 16–22; TEMP 36.5–38; O2SAT 95–98
[2024-03-31 02:43] LABS: Vancomycin Trough 15.3 ug/mL (10.0-20.0)
[2024-03-31] MEDS: METOPROLOL TARTRATE 25 MG TABLET PO ×4 (03:21→18:24)
[2024-03-31] MEDS: VANCOMYCIN 1,500 MG/NS 500 ML 1,500 MG/500 ML BAG 250 MG IVPB ×2 (03:22→17:00)
[2024-03-31] MEDS: ENOXAPARIN 80 MG/0.8 ML SYRINGE 77 MG SUB-Q (03:22)
[2024-03-31] MEDS: metroNIDAZOLE 500 MG/ISO 100ML 500 MG/100 ML BAG 100 MG IVPB ×3 (06:34→21:26)
[2024-03-31 09:20] LABS: Basophils Absolute Auto 0.1 K/mm3 (0.0-0.1); Basophils Percent Auto 0.2 % (0.2-1.2); Eosinophils Absolute Auto 0.2 K/mm3 (0-0.3); Eosinophils Percent Auto 0.5 % (0-4.4); Hemoglobin 7.7 g/dL (12.0-15.0); Immature Granulocyte Absolute 0.51 K/mm3 (0.00-0.031); Immature Granulocyte Percent A 1.6 % (0-0.5); Lymphocytes Absolute Auto 1.86 K/mm3 (0.9-3.2); Mean Corpuscular HGB Conc 30.8 g/dl (32-36); Mean Corpuscular Volume 84.5 fl (80-100); Monocytes Absolute Auto 1.6 K/mm3 (0.1-0.6); Monocytes Percent Auto 5.2 % (2.6-8.5); Neutrophils Absolute Auto 26.9 K/mm3 (1.3-6.7); Neutrophils Percent Auto 86.5 % (45.5-73.1); Platelet Count Result 510 k/mm3 (150-375); Red Blood Count 2.96 M/mm3 (4.2-5.4); White Blood Count 31.1 K/mm3 (4.5-10.0)
[2024-03-31 09:29] LABS: Anion Gap 1 mmol/L (4-12); Blood Urea Nitrogen 11 mg/dL (7-17); Calcium 7.6 mg/dL (8.4-10.2); Carbon Dioxide 27 mmol/L (22-30); Chloride 107 mmol/L (98-107); Estimated CRCL calculation 126 ml/min; Estimated Glomerular Filt Rate > 60; Glucose 110 mg/dL (65-110); Potassium 3.5 mmol/L (3.4-5.0); Sodium 135 mmol/L (137-145)
[2024-03-31] MEDS: THIAMINE HCL 200 MG/2 ML VIAL 100 MG IV PUSH (09:30)
[2024-03-31] MEDS: FERROUS SULFATE 325 MG TABLET DR PO (09:30)
[2024-03-31] MEDS: SOD HYPOCHLORITE 1/4 STRENGTH 473 ML 1 APPLIC TOPICAL ×2 (09:30→21:33)
[2024-03-31] MEDS: CEFEPIME 2 GM/NS 50 ML 2 GM/50 ML BAG IVPB ×2 (09:30→20:38)
--- NOTE | 2024-03-31 09:36 | PM.IMPN ---
Progress Note: A&P Assessment and Plan (1) Severe sepsis: Code(s): A41.9 - Sepsis, unspecified organism; R65.20 - Severe sepsis without septic shock Status: Acute (2) Iron deficiency anemia: Code(s): D50.9 - Iron deficiency anemia, unspecified Status: Acute (3) Adult failure to thrive: Code(s): R62.7 - Adult failure to thrive Status: Acute (4) Uremic encephalopathy: Code(s): G93.49 - Other encephalopathy; N19 - Unspecified kidney failure Status: Acute (5) Decubitus ulcer: Qualifiers: Pressure injury location: sacral region Pressure injury stage: stage 4 Qualified Code(s): L89.154 - Pressure ulcer of sacral region, stage 4 Code(s): L89.90 - Pressure ulcer of unspecified site, unspecified stage Status: Acute (6) Atrial fibrillation with RVR: Code(s): I48.91 - Unspecified atrial fibrillation Status: Acute (7) Hypotension: Code(s): I95.9 - Hypotension, unspecified Status: Acute (8) CHRISTIANA (acute kidney injury): Code(s): N17.9 - Acute kidney failure, unspecified Status: Acute Plan Severe sepsis: Code(s): A41.9 - Sepsis, unspecified organism; R65.20 - Severe sepsis without septic shock Status: Acute Assessment and Plan: Patient presented the outside hospital lactic acidosis, hypotension, tachycardia, leukocytosis -source of infection: Decubitus ulcer with purulent drainage, UTI, possible pneumonia -received adequate amount of IV fluids at the outside hospital -lactic acidosis has resolved -will give additional albumin for volume expansion -03/28: Blood cultures: No growth -03/28: Urine cultures: Contaminated with genital floors on cefepime, Flagyl and vancomycin (03/28) deescalate antibiotics once the cultures are resulted off pressors at this time leukocytosis improving CXR 03/29 COPD and/or chronic interstitial disease.Small left pleural effusion. Decubitus ulcer: Qualifiers: Pressure injury location: sacral region Pressure injury stage: stage 4 Qualified Code(s): L89.154 - Pressure ulcer of sacral region, stage 4 Code(s): L89.90 - Pressure ulcer of unspecified site, unspecified stage Status: Acute Assessment and Plan: 14 cm x 15 cm decubitus ulcer at the coccyx. purulent drainage, pictures have been reviewed -surgery evaluated noted no surgical intervention and recommends continuing abx and wound care wound Care following Wound culture grows Pseudomonas aeruginosa susceptible to cefepime, Levaquin, also growth of Proteus mirabilis susceptible to Augmentin and Unasyn Lab showed leukocytosis persists, 28,300 03/30/24 Follow-up procalcitonin Continue current treatment Repeat wound culture per wound care pt's wbc is trending up patient may need to bone bisopsy for guiding antibiotics selection call patient's daughter Jennifer Keller and left a message. pt has poor prognosis, we need to discuss with her daughter about goals of care Atrial fibrillation with RVR: Code(s): I48.91 - Unspecified atrial fibrillation Status: Acute Assessment and Plan: Patient went to AFib RVR overnight likely related to severe sepsis, does not of a history of atrial fibrillation -patient quickly converted back to sinus rhythm with digoxin and diltiazem IV continue Metoprolol and Heparin infusion per cards cards following Rate is not controlled, telemetry showed monitor about 130 Encephalopathy: Code(s): G93.40 - Encephalopathy, unspecified Status: Acute Assessment and Plan: Patient presented the outside hospital with acute altered mental status, likely related to hypotension and sepsis Currently patient is oriented place, person, possible baseline now continue to monitor and treat underlying cause Iron deficiency anemia: Code(s): D50.9 - Iron deficiency anemia, unspecified Status: Acute Assessment and Plan: Hemoglobin dropped to , transfused 1 unit of packed RBCs -monitor H&H - Iron panel: Iron level low Start ferrous sulfate 325 mg once daily Protein-calorie malnutrition, severe: Code(s): E43 - Unspecified severe protein-calorie malnutrition Status: Acute Assessment and Plan: Albumin is 1.8 -severe protein calorie malnutrition -dietitian has been consulted advance diet Electrolyte abnormality: Code(s): E87.8 - Other disorders of electrolyte and fluid balance, not elsewhere classified Status: Acute Assessment and Plan: Provide potassium chloride 40 mEq b.i.d. p.o., magnesium sulfate 2 g IV Follow-up BMP, magnesium level To keep potassium above 4 and magnesium about 2 Plan DVT prophylaxis: Heparin subQ Stress ulcer prophylaxis: Not indicated Nutrition: Diabetic consistent diet Code Status: Do not resuscitate Subjective Date/time seen: 03/31/24 09:36 Interval history: I saw examined patient. Patient was lying in the bed, no obvious distress, patient is alert, not oriented to time, patient knows her age. Patient does not have obvious distress. Patient feels better, denies chest pain abdomen pain nausea vomiting. Labs reviewed Exam Narrative: GENERAL: Pleasant, in no acute distress. Well-nourished. - EYES: EOMI. Anicteric. - HENT: Moist mucous membranes. - LUNGS: Clear to auscultation bilaterally, no wheezing, rhonchi, or rales. - CARDIOVASCULAR: Irregular rhythm. No murmur. No JVD. - ABDOMEN: Soft, non-tender and non-distended. No palpable masses. Decubital ulcer unstageable, bilateral heel ulcers protected - EXTREMITIES: No edema. Peripheral pulses 2+. Non-tender. - NEUROLOGIC: No focal neurological deficits. CN II-XII grossly intact. - PSYCHIATRIC: Awake, Alert and oriented x 1. Appropriate mood and affect. - LYMPH: No cervical lymphadenopathy. Objective Data Vital Signs Vital Signs: Vital Signs - 24 hr 03/30/24 10:00 03/30/24 14:02 03/30/24 15:50 Temperature 99.1 F Pulse Rate 93 133 H 97 Respiratory Rate 8 L Blood Pressure 97/59 L Pulse Oximetry 96 Oxygen Delivery Oxygen Flow Rate 03/30/24 20:00 03/30/24 20:23 03/31/24 00:41 Temperature 100.4 F H Pulse Rate 100 100 103 H Respiratory Rate 8 L 20 Blood Pressure 113/67 Pulse Oximetry 96 97 Oxygen Delivery Nasal Cannula Oxygen Flow Rate 2 03/31/24 03:21 03/31/24 07:25 03/31/24 09:29 Temperature 98.7 F Pulse Rate 88 99 120 H Respiratory Rate 22 H Blood Pressure 121/60 Pulse Oximetry 98 Oxygen Delivery Oxygen Flow Rate Intake/Output Intake/Output: Intake & Output 03/28/24 03/29/24 03/30/24 03/31/24 23:59 23:59 23:59 23:59 Intake Total 1321.5 2750.6 1570 940 Output Total 1360 1735 1875 450 Balance -38.5 1015.6 -305 490 Meds/Results Medications: Active Medications Generic Name Dose Route Start Last Admin Trade Name Freq PRN Reason Stop Dose Admin Acetaminophen 650 mg 03/28/24 07:22 03/29/24 02:41 Acetaminophen 325 Mg Tablet PO 650 mg Q6H PRN Administration Mild Pain (1-3) or Fever Hydrocodone Bitart/Acetaminophen 1 tab 03/28/24 00:08 03/30/24 14:01 Hydrocodone/Acetaminophen (*Crx) 5-325 Mg Tablet PO 1 tab Q4H PRN Administration Pain Rated 4-6 Al Hydrox/Mg Hydrox/Simethicone 30 ml 03/28/24 00:13 Mag Hydrox/Al Hydrox/Simeth 30 Ml Udc PO QID PRN Dyspepsia Benzocaine 1 lozenge 03/28/24 00:08 Benzocaine/Menthol (*Bkc) 18 Ea Lozenge PO PRN PRN Sore Throat Calcium Carbonate 500 mg 03/28/24 09:00 Calcium Carbonate (Oscal) 500 Mg Tablet PO BID LILA Collagenase 1 applic 03/28/24 09:00 Collagenase Oint 30 Gm Tube TOPICAL QAM [facility] Enoxaparin Sodium 77 mg 03/29/24 15:00 03/31/24 03:22 Enoxaparin 80 Mg/0.8 Ml Syringe SUB-Q 77 mg Q12H LILA Administration Ferrous Sulfate 325 mg 03/30/24 09:00 03/31/24 09:30 Ferrous Sulfate [address] PO 325 mg DAILY LILA Administration Fluticasone Propionate 2 spray 03/28/24 00:08 Fluticasone Propionate 0.05% Na Spr 16 Gm Btl (*Bkc) NASAL DAILY PRN allergy symptoms Cefepime HCl 2 gm in 50 mls @ 100 mls/hr 03/28/24 12:00 03/31/24 09:30 Maxipime 2 Gm/Ns 50 Ml IVPB 100 mls/hr Q12HR LILA Administration Metronidazole 500 mg in 100 mls @ 100 mls/hr 03/28/24 00:15 03/31/24 06:34 Flagyl 500 Mg/Iso Soln 100 Ml IVPB 100 mls/hr Q8HR LILA Administration Vancomycin HCl 1,500 mg in 500 mls @ 250 mls/hr 03/29/24 15:00 03/31/24 05:25 Vancomycin 1,500 Mg/Ns 500 Ml IVPB Infused Q12H LILA Infusion Magnesium Hydroxide 30 ml 03/28/24 00:13 Magnesium Hydroxide Susp 30 Ml Udc PO DAILY PRN Constipation Methocarbamol 500 mg 03/28/24 00:08 Methocarbamol 500 Mg Tablet PO Q4H PRN muscle spasm Metoprolol Tartrate 25 mg 03/29/24 13:20 03/31/24 09:29 Metoprolol Tartrate 25 Mg Tablet PO 25 mg Q6H LILA Administration Metoprolol Tartrate 5 mg 03/29/24 13:18 03/29/24 15:49 Metoprolol Tartrate Inj 5 Mg/5 Ml Vial IV PUSH 5 mg Q4H PRN Administration Tachycardia Ondansetron HCl 4 mg 03/28/24 07:23 Ondansetron Inj 4 Mg/2 Ml Vial IV PUSH Q6H PRN Nausea And Vomiting Perflutren Lipid Microsphere 0 ml 03/28/24 11:28 Perflutren Lipid Microspheres 1.5 Ml Vial Diluted To 10 Ml Total Volume IV PUSH 03/31/24 11:28 ONCE PRN adequate visualization Protocol Silver Sulfadiazine 1 applic 03/28/24 09:00 Silver Sulfadiazine 1% Cr 400 Gm Jar (*Bkc) TOPICAL DAILY LILA Sodium Hypochlorite 1 applic 03/28/24 09:00 03/31/24 09:30 Sod Hypochlorite 1/4 Strength 473 Ml TOPICAL 1 applic Q12HR LILA Administration Thiamine HCl 100 mg 03/29/24 09:00 03/31/24 09:30 Thiamine Hcl 200 Mg/2 Ml Vial IV PUSH 100 mg QAM LILA Administration Radiology Results: ITS Impressions Chest/Abdomen/Pelvis CT 03/28/24 12:00 IMPRESSION: 1. 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 2. 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 3. Very small bilateral pleural effusions with dependent atelectasis in the bilateral lower lobes. 4. Indeterminate 11 x 6 mm right lower lobe pulmonary nodule. Recommend malacia with any prior outside imaging. If unavailable would recommend 3 month follow-up low-dose noncontrast chest CT or PET/CT for further evaluation. 5. Cholelithiasis. 6. High attenuation fluid within the bladder and bilateral renal collecting systems suggesting excreted IV contrast with differential including hematuria. Correlate with clinical history and urinalysis. Chest X-Ray 03/29/24 07:05 Impression: COPD and/or chronic interstitial disease. Small left pleural effusion. Labs Labs: Laboratory Results - last 24 hr 03/30/24 03/30/24 03/31/24 04:50 10:49 01:55 WBC 28.3 H RBC 3.16 L Hgb 8.2 L Hct 26.8 L MCV 84.8 MCH 25.9 L MCHC 30.6 L RDW 17.4 H Plt Count 555 H MPV 9.1 Immature Gran % (Auto) Not Reportable Neut % (Auto) Not Reportable Lymph % (Auto) Not Reportable [place] % (Auto) Not Reportable Eos % (Auto) Not Reportable Baso % (Auto) Not Reportable Lymph # (Auto) Not Reportable [place] # (Auto) Not Reportable Eos # (Auto) Not Reportable Baso # (Auto) Not Reportable Abs Immat Gran (auto) Not Reportable Absolute Neuts (auto) Not Reportable Absolute Nucleated RBC Not Reportable Nucleated RBC % Not Reportable Platelet Estimate Adequate Hypochromasia 1+ Anisocytosis 1+ Schistocytes None seen Sodium 133 L Potassium 4.3 Chloride 109 H Carbon Dioxide 20 L Anion Gap 4 BUN 6 L Creatinine 0.30 L Estim Creat Clear Calc 127 Estimated GFR > 60 Glucose 76 Calcium 7.6 L Vancomycin Trough 15.3 03/31/24 09:06 WBC RBC Hgb Hct MCV MCH MCHC RDW Plt Count MPV Immature Gran % (Auto) Neut % (Auto) Lymph % (Auto) [place] % (Auto) Eos % (Auto) Baso % (Auto) Lymph # (Auto) [place] # (Auto) Eos # (Auto) Baso # (Auto) Abs Immat Gran (auto) Absolute Neuts (auto) Absolute Nucleated RBC Nucleated RBC % Platelet Estimate Hypochromasia Anisocytosis Schistocytes Sodium 135 L Potassium 3.5 Chloride 107 Carbon Dioxide 27 Anion Gap 1 L BUN 11 D Creatinine 0.30 L Estim Creat Clear Calc 126 Estimated GFR > 60 Glucose 110 Calcium 7.6 L Vancomycin Trough
[2024-03-31 10:02] LABS: Anisocytosis 1+; Hypochromasia 2+; Platelet Estimate Increased (Adequate)
[2024-03-31 10:03] LABS: Schistocytes None Seen
[2024-03-31] MEDS: HYDROcodone/acetaminophen (*CRX) 5-325 MG TABLET 1 TAB PO (12:50)
[2024-03-31 16:32] LABS: Procalcitonin 1.2 ng/mL
[2024-03-31] MEDS: ENOXAPARIN 80 MG/0.8 ML SYRINGE SUB-Q (17:00)
[2024-04-01] MEDS: METOPROLOL TARTRATE 25 MG TABLET PO ×4 (02:00→18:08)
[2024-04-01] MEDS: VANCOMYCIN 1,500 MG/NS 500 ML 1,500 MG/500 ML BAG 250 MG IVPB (02:01)
[2024-04-01 06:00] VITALS: BP 139/76; PULSE 111; RESP 16; TEMP 36.7; O2SAT 95
[2024-04-01] MEDS: metroNIDAZOLE 500 MG/ISO 100ML 500 MG/100 ML BAG 100 MG IVPB ×2 (06:02→13:34)
[2024-04-01] MEDS: ENOXAPARIN 80 MG/0.8 ML SYRINGE SUB-Q ×2 (06:03→18:09)
[2024-04-01 06:21] VITALS: PULSE 80
[2024-04-01 07:19] LABS: Basophils Percent Auto 0.2 % (0.2-1.2); Eosinophils Absolute Auto 0.3 K/mm3 (0-0.3); Eosinophils Percent Auto 1.2 % (0-4.4); Hematocrit 25.6 % (37.0-47.0); Hemoglobin 7.8 g/dL (12.0-15.0); Immature Granulocyte Absolute 0.52 K/mm3 (0.00-0.031); Immature Granulocyte Percent A 2.2 % (0-0.5); Lymphocytes Absolute Auto 2.12 K/mm3 (0.9-3.2); Lymphocytes Percent Auto 8.9 % (18.3-44.2); Mean Corpuscular HGB Conc 30.5 g/dl (32-36); Mean Corpuscular Hemoglobin 25.9 pg (26-34); Mean Platelet Volume 9.8 fl (7.4-10.4); Monocytes Absolute Auto 1.7 K/mm3 (0.1-0.6); Monocytes Percent Auto 7.2 % (2.6-8.5); Neutrophils Absolute Auto 19.1 K/mm3 (1.3-6.7); Neutrophils Percent Auto 80.3 % (45.5-73.1); Platelet Count Result 517 k/mm3 (150-375); Red Blood Count 3.01 M/mm3 (4.2-5.4); White Blood Count 23.7 K/mm3 (4.5-10.0)
[2024-04-01 07:32] LABS: Anion Gap 2 mmol/L (4-12); Blood Urea Nitrogen 14 mg/dL (7-17); Calcium 7.5 mg/dL (8.4-10.2); Carbon Dioxide 26 mmol/L (22-30); Chloride 105 mmol/L (98-107); Estimated CRCL calculation 126 ml/min; Estimated Glomerular Filt Rate > 60; Glucose 90 mg/dL (65-110); Potassium 3.7 mmol/L (3.4-5.0); Sodium 133 mmol/L (137-145)
[2024-04-01 07:54] LABS: Procalcitonin 0.9 ng/mL
[2024-04-01 08:20] LABS: Anisocytosis 1+; Hypochromasia 1+; Ovalocytes 1+; Platelet Estimate Increased (Adequate); Schistocytes None Seen
[2024-04-01] MEDS: CEFEPIME 2 GM/NS 50 ML 2 GM/50 ML BAG IVPB (08:53)
[2024-04-01] MEDS: FERROUS SULFATE 325 MG TABLET DR PO (08:53)
[2024-04-01] MEDS: THIAMINE HCL 200 MG/2 ML VIAL 100 MG IV PUSH (08:53)
[2024-04-01 09:26] VITALS: BP 126/75; PULSE 97; RESP 18; TEMP 36.7; O2SAT 96
[2024-04-01 12:23] VITALS: PULSE 79
[2024-04-01] MEDS: HYDROcodone/acetaminophen (*CRX) 5-325 MG TABLET 1 TAB PO (12:23)
--- NOTE | 2024-04-01 15:02 | PM.DS ---
DS: Admitting Diagnosis Discharge Date 04/01/2024 Admitting Diagnosis Sepsis DS: Discharge Diagnosis Discharge Diagnosis (1) Severe sepsis: Code(s): A41.9 - Sepsis, unspecified organism; R65.20 - Severe sepsis without septic shock Status: Acute (2) Iron deficiency anemia: Code(s): D50.9 - Iron deficiency anemia, unspecified Status: Acute (3) Adult failure to thrive: Code(s): R62.7 - Adult failure to thrive Status: Acute (4) Uremic encephalopathy: Code(s): G93.49 - Other encephalopathy; N19 - Unspecified kidney failure Status: Acute (5) Decubitus ulcer: Qualifiers: Pressure injury location: sacral region Pressure injury stage: stage 4 Qualified Code(s): L89.154 - Pressure ulcer of sacral region, stage 4 Code(s): L89.90 - Pressure ulcer of unspecified site, unspecified stage Status: Acute (6) Atrial fibrillation with RVR: Code(s): I48.91 - Unspecified atrial fibrillation Status: Acute (7) Hypotension: Code(s): I95.9 - Hypotension, unspecified Status: Acute (8) CHRISTIANA (acute kidney injury): Code(s): N17.9 - Acute kidney failure, unspecified Status: Acute DS: Summary Hospital Course Hospital Course: Aidee Domínguez is a 78 year old female with past medical history of dysphagia, fracture of the left tibia, insomnia, spondylosis of cervical joint, vitamin-A deficiency, pressure ulcers status post open diverting colostomy presented from outside hospital in [facility] on 01/26/2024 with complains of altered mental status, large decubitus ulcer with purulent drainage, hypotension, acute kidney injury, failure to thrive. Patient was given 3 L IV fluid bolus at the outside hospital, and transferred to [facility] for continuity of care since the decubitus ulcer will manage by surgery in December 2023. Started on cefepime, vancomycin and Flagyl. Blood culture shows no growth. Urine culture contaminated with genital ian. Decubitus ulcer was evaluated by surgery and advised medical management no surgical intervention. Follow-up with wound care. During the hospitalization patient had AFib with RVR possibly due to the sepsis. Continue metoprolol. Metabolic encephalopathy possibly due to the sepsis and other comorbid conditions. Patient also has iron-deficiency anemia and continue ferrous sulfate. Patient antibiotics per de-escalated to Augmentin, levofloxacin, doxycycline for 6 weeks. As mentioned above patient has multiple comorbid conditions. Patient family decided to admit her under hospice. We recommend re conciliation of medications from hospice. Status at Discharge Cognitive/behavioral status at discharge: Prognosis guarded Time Spent with Patient Time attestation: Total time spent providing and/or coordinating discharge services: 45 minutes Exam Narrative: GENERAL: Pleasant, in no acute distress. Well-nourished. - EYES: EOMI. Anicteric. - HENT: Moist mucous membranes. - LUNGS: Clear to auscultation bilaterally, no wheezing, rhonchi, or rales. - CARDIOVASCULAR: Irregular rhythm. No murmur. No JVD. - ABDOMEN: Soft, non-tender and non-distended. No palpable masses. Decubital ulcer unstageable, bilateral heel ulcers protected - EXTREMITIES: No edema. Peripheral pulses 2+. Non-tender. - NEUROLOGIC: No focal neurological deficits. CN II-XII grossly intact. - PSYCHIATRIC: Awake, Alert and oriented x 1. Appropriate mood and affect. - LYMPH: No cervical lymphadenopathy. Const: General: comfortable, no acute distress, well developed, alert, awake, ill appearing, tired appearing and average body habitus Nutritional Appearance: average body habitus Orientation/consciousness: oriented to person and oriented to place HENMT: Head: normal to inspection, normocephalic and atraumatic Ears: hearing grossly normal bilaterally Face/Nose/Sinus: normal facial exam Face and sinus: normal facial exam Eyes: General: appearance normal, both eyes and all related structures Pupils: Equal, round and reactive pupils present EOM: EOMs intact bilaterally Neck: Neck: full ROM, no lymphadenopathy and no JVD Thyroid: thyroid normal Lymphatic: no lymphadenopathy noted Resp: Effort & Inspection: normal respiratory effort and able to speak in complete sentences Auscultation: clear to auscultation bilaterally Cardio: Jugular venous distension: no JVD Rate: regular rate Rhythm: regular rhythm Heart sounds: S1 normal heart sound present and S2 normal heart sound present GI: Inspection: other ( colostomy bag in place) : General: Yes deferred Skin: General skin exam: wounds noted ( sacral ulcer) Rashes: no rashes Wounds: wounds noted ( sacral ulcer) Neuro: General: oriented to person, oriented to place and CN's II-XI intact bilaterally Cranial nerves: Yes CN's II-XII intact bilaterally and Yes Equal, round and reactive pupils present Cognition (Neuro): abnormal cognition ( lethargy) Speech: normal speech Gait exam (Neuro): Other gait observations present ( bed ridden) Motor exam (neuro): 5/5 motor strength present throughout Extrem: General: normal to inspection, full ROM, no joint enlargement and no pedal edema Other: bilateral lower extremity edema DS: Data Data Completed and Pending Labs on day of discharge: Labs from last 24 hours 04/01/24 03/31/24 03/31/24 06:41 14:21 14:13 WBC 23.7 H RBC 3.01 L Hgb 7.8 L Hct 25.6 L MCV 85.0 MCH 25.9 L MCHC 30.5 L RDW 19.0 H Plt Count 517 H MPV 9.8 Immature Gran % (Auto) 2.2 H Neut % (Auto) 80.3 H Lymph % (Auto) 8.9 L [place] % (Auto) 7.2 Eos % (Auto) 1.2 Baso % (Auto) 0.2 Lymph # (Auto) 2.12 [place] # (Auto) 1.7 H Eos # (Auto) 0.3 Baso # (Auto) 0.0 Abs Immat Gran (auto) 0.52 H Absolute Neuts (auto) 19.1 H Absolute Nucleated RBC 0.000 Nucleated RBC % 0.0 Platelet Estimate Increased Hypochromasia 1+ Anisocytosis 1+ Ovalocytes 1+ Schistocytes None seen Sodium 133 L Potassium 3.7 Chloride 105 Carbon Dioxide 26 Anion Gap 2 L BUN 14 Creatinine 0.30 L Estim Creat Clear Calc 126 Estimated GFR > 60 Glucose 90 Calcium 7.5 L Procalcitonin 0.9 1.2 Prolactin Pending Preliminary micro results at discharge 03/28/24 00:43 Blood Culture - Preliminary Blood 03/28/24 00:43 Blood Culture - Preliminary Blood Discharge Plan Discharge Attending physician on discharge: Narayan Michele Consulting providers: Flavio Gaytan; Dash Pacheco; Isidra Etienne Discharging Clinician: Narayan Michele Anticipated Discharge Date/Time: 04/01/24 14:54 Patient Disposition: Hospice - Medical Facility Activity: as tolerated Diet: regular Discharge Instructions: Patient is discharged on hospice Patient needs medicine reconciliation as per hospice protocol after the discharge Patient Instructions: Heparin (By injection), Pain Management (DC) Patient Language: Burundian Stand Alone Forms: General Discharge Information Discharge Medications: New doxycycline hyclate 100 mg Tablet 100 mg PO Q12HR Qty: 84 0RF metoprolol tartrate 25 mg Tablet 25 mg PO Q6H Qty: 30 0RF amoxicillin-pot clavulanate 875-125 mg tablet 1 tablet PO Q12H Qty: 90 0RF Rx Instructions: 2 tabs a day for 6 weeks(End date April) Continued Santyl 250 unit/gram Ointment 1 applic topical QAM Qty: 60 0RF Chloraseptic Sore Throat 6-10 mg Lozenge 1 maxim PO PRN PRN (Reason: Sore Throat) Qty: 30 0RF tolnaftate 1 % Powder 1 applic topical Q12HR Qty: 60 0RF Dakin's Solution 0.125 % Solution 1 applic topical Q12HR Qty: 100 0RF melatonin 5 mg Tablet 5 mg PO HS PRN (Reason: Sleep) Qty: 30 0RF acetaminophen 500 mg capsule 1,000 mg PO Q6H PRN (Reason: pain) calcium carbonate [Oyster Shell Calcium] 500 mg calcium (1,250 mg) tablet 500 mg PO BID diazepam 5 mg tablet 5 mg PO .unknown fluticasone propionate [24 Hour Allergy Relief] 50 mcg/actuation spray,suspension 2 spray intranasal DAILY PRN (Reason: allergy symptoms) Rx Instructions: administer into each nostril methocarbamol 500 mg tablet 500 mg PO Q4H PRN (Reason: muscle spasm) silver sulfadiazine [Silvadene] 1 % cream 1 applic topical DAILY Rx Instructions: apply to (L) heel topically levofloxacin 750 mg tablet 750 mg PO DAILY Qty: 42 0RF Discontinued aspirin [Harley Aspirin] 325 mg Tablet 325 mg PO DAILY hydrocodone-acetaminophen 5-325 mg Tablet 1 tablet PO Q4H PRN (Reason: Pain Rated 4-6) Qty: 10 0RF Date of admission: 03/28/24 00:13 Primary Care Provider: ChristianAaron Admitting Provider: Jersey Funez Attending physician on admission: Jersey Funez Condition: Guarded Prognosis
[2024-04-01] MEDS: SOD HYPOCHLORITE 1/4 STRENGTH 473 ML 1 APPLIC TOPICAL (16:59)
[2024-04-01] MEDS: DOXYCYCLINE HYCLATE 100 MG TABLET PO (16:59)
[2024-04-01 18:08] VITALS: PULSE 98
[2024-04-02 02:28] LABS: Prolactin 19.4 ng/mL
--- OUTSIDE RECORDS SUMMARY | 2024-04-02 06:28 | XMS_ITS | Encounter Summary ---
Author Organization [facility] Address [address] [place] [address]. [place] [address] [place] [address] Care Team Providers Care Packer Denture Name Role Phone Chavo Castañeda MD Primary Care Provider [phone] Encounter Details Date Type Department Care Team (Late st Contact Info) Description 03/23/2024 Orders Only [facility] [address] [place], [place] [id number] Chavo Castañ[place] [address] [place], [place] [id number] Social History Tobacco Use Types Packs/Day Years Used Date Smoking Tobacco: Unknown Comments No Sex and Gender Information Value Date Recorded Sex Assigned at Not on file Legal Sex Female 2:42 PM CDT Gender Identity Not on file Sexual Orientation Not on file documented as of this encounter Plan of Treatment Not on file documented as of this encounter Results * (ABNORMAL) C-REACTIVE PROTEIN, HIGH SENSI (03/23/2024 9:05 AM [employer]) HS-CRP 14.80(H) <0.3 mg/dL 03/23/2024 2:42 PM [employer] [facility] 03/23/2024 9:05 AM [employer] AND [employer] us Chavo Castañeda MD LABORATORY Final Resul t [facility] [address] [place] [address], [place] [phone] * (ABNORMAL) SED RATE, ERYTHROCYTE (ESR) (03/23/2024 9:05 AM [employer]KER) Pathologist [facility] ESR 89(H) 0 - 20 MM/HR 03/23/2024 10:02 AM [facility] 03/23/2024 9:05 AM [employer] us Chavo Castañeda MD LABORATORY Final Resul t [facility] [address] [place] [address], [place] [phone] * (ABNORMAL) CBC W/DIFF AUTOMATED (03/23/2024 9:05 AM [employer]) Pathologist [facility] WBC 11.75(H) 4.4 - 11.0 x10'3/uL 03/23/2024 9:58 AM [facility] RBC 3.07(L) 4.50 - 5.10 x10'6/uL 03/23/2024 9:58 AM [facility] HGB 7.8(L) 12.3 - 15.3 G/DL 03/23/2024 9:58 AM [facility] HCT 25.7(L) 35.9 - 44.6 % 03/23/2024 9:58 AM [facility] MCV 83.7 80.0 - 96.0 FL 03/23/2024 9:58 AM [facility] MCH 25.4 25.3 - 30.9 PG 03/23/2024 9:58 AM [facility] MCHC 30.4(L) 31.0 - 34.1 G/DL 03/23/2024 9:58 AM [facility] RDW 17.1(H) 12.4 - 15.1 % 03/23/2024 9:58 AM [facility] PLT 635(H) 151 - 353 x10'3/uL 03/23/2024 9:58 AM [facility] MPV 9.0(L) 9.6 - 12.0 FL 03/23/2024 9:58 AM [facility] RBC MORPHOLOGY NORMAL 03/23/2024 9:58 AM [facility] PLT MORPH. NORMAL 03/23/2024 9:58 AM [facility] WBC MORPHOLOGY NORMAL 03/23/2024 9:58 AM [facility] LYMPHOCYTES % 8.7(L) 15.8 - 45.0 % 03/23/2024 9:58 AM [facility] NEUTROPHILS % 83.2(H) 42.1 - 71.9 % 03/23/2024 9:58 AM [facility] MONOCYTES % 6.6 5.7 - 12.5 % 03/23/2024 9:58 AM [facility] EOSINOPHILS 0.6 0.0 - 5.6 % 03/23/2024 9:58 AM [facility] BASOPHILS 0.2 0.0 - 1.3 % 03/23/2024 9:58 AM [facility] ABS. NEUTROPHILS 9.78(H) 1.40 - 6.00 x10'3/uL 03/23/2024 9:58 AM [facility] IMMATURE GRANS % 0.7(H) 0.0 - 0.5 % 03/23/2024 9:58 AM [facility] ABS. LYMPHOCYTES 1.02 0.80 - 4.70 x10'3/uL 03/23/2024 9:58 AM [facility] 03/23/2024 9:05 AM [employer] Chavo Castañeda MD LABORATORY Final Resul t [facility] [address] [place] [address], documented in this encounter Visit Diagnoses Diagnosis Stage 4 pressure ulcer (CMS/HCC HHS/HCC)- Primary Pressure ulcer, unspecified site Delayed wound healing Open wound(s) (multiple) of unspecified site(s), complicated documented in this encounter Care Teams Packer Denture Relationship Specialty Start Date End Date Chavo Castañ[place] [address] [place] [address] PCP - General FAMILY PRACTICE 01/11/24 documented as of this encounter
--- OUTSIDE RECORDS SUMMARY | 2024-04-02 06:28 | XMS_ITS | Encounter Summary ---
Author Organization [facility] Address [address] [place] [address]. [place] [address] [place] [address] Care Team Providers Care Registered Dental Assistant Rda Name Role Phone Chavo Castañeda MD Primary Care Provider Encounter Details Date Type Department Care Team (Latest Contact Info) Description 03/23/2024 9:37 AM SOLE TACKER - 03/23/2024 11:59 PM [facility] Hospital Encounter [facility] [address] [place], [place] [id number] Chavo Castañ[place] [address] [place], [place] [id number] Discharge Disposition: Home or Self Care (Routine Discharge) Social History Tobacco Use Types Packs/Day Years Used Date Smoking Tobacco: Unknown Comments No Sex and Gender Information Value Date Recorded Sex Assigned at Not on file Legal Sex Female 2:42 PM CDT Gender Identity Not on file Sexual Orientation Not on file documented as of this encounter Medications at Time of Discharge Acetaminophen 500 MG Cap Take 1,000 mg by mouth every 6 (six) hours. 09/29/2023 aspirin 81 MG chewable tablet Chew 1 tablet (81 mg total) by mouth daily. 09/29/2023 calcium carbonate-vitamin D (OYSTER SHELL CALCIUM W/D) 500-5 MG-MCG Tab tablet Take 1 tablet by mouth 2 (two) times daily. cyclobenzaprine (FLEXERIL) 10 MG tablet Take 1 tablet (10 mg total) by mouth every 12 (twelve) hours. 11/13/2023 diazePAM (VALIUM) 5 MG tablet 11/30/2023 gabapentin (NEURONTIN) 300 MG capsule Take 1 capsule (300 mg total) by mouth 2 (two) times daily. 09/29/2023 09/28/2024 lidocaine 4 % patch Place 2 patches onto the skin daily. 09/30/2023 methocarbamol (ROBAXIN) 500 MG tablet Take 2 tablets (1,000 mg total) by mouth 4 (four) times daily. 09/29/2023 oxyCODONE immediate release (ROXICODONE) 5 MG immediate release tablet Take 1 tablet (5 mg total) by mouth. 09/29/2023 polyethylene glycol (GLYCOLAX) 17 GM/SCOOP powder Take 17 g by mouth daily. 09/29/2023 rOPINIRole (REQUIP) 0.5 MG tablet Take 1 tablet (0.5 mg total) by mouth 3 (three) times daily. 11/23/2023 11/22/2024 SANTYL ointment 11/12/2023 senna-docusate (SENOKOT-S) 8.6-50 MG tablet Take 1 tablet by mouth 2 (two) times daily. 09/29/2023 traZODone (DESYREL) 50 MG tablet Take 1 tablet (50 mg total) by mouth daily. 09/29/2023 documented as of this encounter Progress Notes * Chavo Castañeda MD - 03/23/2024 9:37 AM CST Sed rate and wbc are elevated H/H is low and needs to repeat it in three days TACKER * Margy Schmidt RN - 03/23/2024 9:37 AM CST Pt at [facility]. Results faxed there. TACKER * Margy Schmidt RN - 03/23/2024 9:37 AM CST Results faxed to [facility]. TACKER documented in this encounter Plan of Treatment Not on file documented as of this encounter Procedures Procedure Name Priority Date/Time Associated Diagnosis Comments SED RATE, ERYTHROCYTE (ESR) Routine 03/23/2024 9:05 AM SOLE TACKER Stage 4 pressure ulcer (CMS/HCC HHS/HCC) Delayed wound healing C-REACTIVE PROTEIN, HIGH SENSI Routine 03/23/2024 9:05 AM SOLE TACKER Stage 4 pressure ulcer (CMS/HCC HHS/HCC) Delayed wound healing CBC W/DIFF AUTOMATED Routine 03/23/2024 9:05 AM SOLE TACKER Stage 4 pressure ulcer (CMS/HCC HHS/HCC) Delayed wound healing documented in this encounter Results * (ABNORMAL) CBC W/DIFF AUTOMATED (03/23/2024 9:05 AM SOLE TACKER) WBC 11.75(H) 4.4 - 11.0 x10'3/uL 03/23/2024 9:58 AM SOLE TACKER [facility] RBC 3.07(L) 4.50 - 5.10 x10'6/uL 03/23/2024 9:58 AM [facility] HGB 7.8(L) 12.3 - 15.3 G/DL 03/23/2024 9:58 AM SOLE TACKER [facility] HCT 25.7(L) 35.9 - 44.6 % 03/23/2024 9:58 AM SOLE TACKER [facility] MCV 83.7 80.0 - 96.0 FL 03/23/2024 9:58 AM SOLE TACKER [facility] MCH 25.4 25.3 - 30.9 PG 03/23/2024 9:58 AM SOLE TACKER [facility] MCHC 30.4(L) 31.0 - 34.1 G/DL 03/23/2024 9:58 AM SOLE TACKER [facility] RDW 17.1(H) 12.4 - 15.1 % 03/23/2024 9:58 AM SOLE TACKER [facility] PLT 635(H) 151 - 353 x10'3/uL 03/23/2024 9:58 AM [facility] MPV 9.0(L) 9.6 - 12.0 FL 03/23/2024 9:58 AM [facility] RBC MORPHOLOGY NORMAL 03/23/2024 9:58 AM [facility] PLT MORPH. NORMAL 03/23/2024 9:58 AM [facility] WBC MORPHOLOGY NORMAL 03/23/2024 9:58 AM [facility] LYMPHOCYTES % 8.7(L) 15.8 - 45.0 % 03/23/2024 9:58 AM [facility] NEUTROPHILS % 83.2(H) 42.1 - 71.9 % 03/23/2024 9:58 AM [facility] MONOCYTES % 6.6 5.7 - 12.5 % 03/23/2024 9:58 AM [facility] EOSINOPHILS 0.6 0.0 - 5.6 % 03/23/2024 9:58 AM [facility] BASOPHILS 0.2 0.0 - 1.3 % 03/23/2024 9:58 AM [facility] ABS. NEUTROPHILS 9.78(H) 1.40 - 6.00 x10'3/uL 03/23/2024 9:58 AM [facility] IMMATURE GRANS % 0.7(H) 0.0 - 0.5 % 03/23/2024 9:58 AM [facility] ABS. LYMPHOCYTES 1.02 0.80 - 4.70 x10'3/uL 03/23/2024 9:58 AM [facility] 03/23/2024 9:05 AM SOLE TACKER us Chavo Castañeda MD LABORATORY Final Resul t [facility] [address] [place] [address], [place] [phone] * (ABNORMAL) SED RATE, ERYTHROCYTE (ESR) (03/23/2024 9:05 AM SOLE TACKER) ESR 89(H) 0 - 20 MM/HR 03/23/2024 10:02 AM SOLE TACKER [facility] 03/23/2024 9:05 AM SOLE TACKER Chavo Castañeda MD LABORATORY Final Resul t Performing Organization Address City/[facility]/ZIP Co de Phone Number [facility] [address] [place] [address], [place] [phone] * (ABNORMAL) C-REACTIVE PROTEIN, HIGH SENSI (03/23/2024 9:05 AM SOLE TACKER) HS-CRP 14.80(H) <0.3 mg/dL 03/23/2024 2:42 PM SOLE TACKER [facility] 03/23/2024 9:05 AM SOLE TACKER us Chavo Castañeda MD LABORATORY Final Resul t [facility] [address] [place] [address], [place] [phone] documented in this encounter Visit Diagnoses Diagnosis Stage 4 pressure ulcer (CMS/HCC HHS/HCC) Pressure ulcer, unspecified site Delayed wound healing Open wound(s) (multiple) of unspecified site(s), complicated documented in this encounter Care Teams Registered Dental Assistant Rda Relationship Specialty Start Date End Date Chavo Castañ[place] [address] [place] [address] PCP - General FAMILY PRACTICE 01/11/24 documented as of this encounter
--- OUTSIDE RECORDS SUMMARY | 2024-04-02 06:28 | XMS_ITS | Encounter Summary ---
Author Organization [facility] Address [address] [place] [address]. [place], [place] [id number] [place] [id number] Care Team Providers Care Chief Cardiopulmonary Technologist Name Role Phone Chavo Castañeda MD Primary Care Provider Encounter Details Date Type Department Care Team (Latest Contact Info) Description 03/27/2024 Travel Social History Tobacco Use Types Packs/Day Years Used Date Smoking Tobacco: Unknown Comments No Sex and Gender Information Value Date Recorded Sex Assigned at Not on file Legal Sex Female 2:42 PM CDT Gender Identity Not on file Sexual Orientation Not on file documented as of this encounter Plan of Treatment Not on file documented as of this encounter Visit Diagnoses Not on filedocumented in this encounter Care Teams Chief Cardiopulmonary Technologist Relationship Specialty Start Date End Date Chavo [place] [address] [place] [address] PCP - General FAMILY PRACTICE 01/11/24 documented as of this encounter
--- OUTSIDE RECORDS SUMMARY | 2024-04-02 06:28 | XMS_ITS | Clinical Summary ---
Author Organization [facility] Address [address] [place] [address]. [place] [address] [place] [address] Care Team Providers Care Medical Doctor Md Name Role Phone Chavo Castañeda MD Primary Care Provider Allergies Active Allergy Reactions Criticality Noted Date Comments Melatonin Unknown 03/27/2024 Medications Acetaminophen 500 MG Cap Take 1,000 mg by mouth every 6 (six) hours. 09/29/2023 Active aspirin 81 MG chewable tablet Chew 1 tablet (81 mg total) by mouth daily. 09/29/2023 Active calcium carbonate-vitam in D (OYSTER SHELL CALCIUM W/D) 500-5 MG-MCG Tab tablet Take 1 tablet by mouth 2 (two) times daily. Active SANTYL ointment 11/12/2023 Act davey cyclobenzaprine (FLEXERIL) 10 MG tablet Take 1 tablet (10 mg total) by mouth every 12 (twelve) hours. 11/13/2023 Active diazePAM (VALIUM) 5 MG tablet 11/30/2023 Active gabapentin (NEURONTIN) 300 MG capsule Take 1 capsule (300 mg total) by mouth 2 (two) times daily. 09/29/2023 Active lidocaine 4 % patch Place 2 patches onto the skin daily. 09/30/2023 Active methocarbamol (ROBAXIN) 500 MG tablet Take 2 tablets (1,000 mg total) by mouth 4 (four) times daily. 09/29/2023 Active oxyCODONE immediate release (ROXICODONE) 5 MG immediate release tablet Take 1 tablet (5 mg total) by mouth. 09/29/2023 Active polyethylene glycol (GLYCOLAX) 17 GM/SCOOP powder Take 17 g by mouth daily. 09/29/2023 Active rOPINIRole (REQUIP) 0.5 MG tablet Take 1 tablet (0.5 mg total) by mouth 3 (three) times daily. 11/23/2023 Active senna-docusate (SENOKOT-S) 8.6-50 MG tablet Take 1 tablet by mouth 2 (two) times daily. 09/29/2023 Active traZODone (DESYREL) 50 MG tablet Take 1 tablet (50 mg total) by mouth daily. 09/29/2023 Active Active Problems Problem Noted Date Diagnosed Date Closed fracture of part of tibia 10/12/2023 Electrolyte imbalance 09/19/2023 Overview (01/12/2024): Last Assessment & Plan: - 09/17: Mg 1.7, Phos 2.9, K 3.1 - Magnesium and KPhos treated - 09/17: Mg 1.7, Phos 2.2, K 3.7 - Magnesium and KPhos treated - Monitor electrolytes 09/25: Lytes stable: DC'ed daily labs Weakness of both arms 09/18/2023 Overview (01/12/2024): Last Assessment & Plan: - Pe patient, weakness started after fall. No weakness of arms prior to fall - CT c spine without injury, however spinal cord and neuroforaminal stenosis noted on CT. MRI: Severe high-grade spinal canal stenosis at C3-C4 level secondary to congenitally narrowed spinal canal, multilevel disc osteophyte complex, and ligamentum flavum thickening. Cord edema noted at the C3-C4 level - 09/17: Ortho Spine consulted - 09/19: OR w/ spine: posterior cervical fusion+ instrumentation from C2-7; C3-6 laminectomies, C4-5 bilateral foraminotomies -09/19 In SICU on [place] for MAP augmentation 80-95 for 48h postop - 09/24: RUE US for localized swelling: (-) for DVT; (+) superficial vein thrombus - 09/25: [place] J and upright cspine Xrs completed - 09/26: BUE motor exam stable. Cont PT/OT - 09/28: Doing well, tolerating diet and activity with well controlled pain; [place] J in place; PMNR c/s for recs Acute pain due to trauma 09/17/2023 Overview (01/12/2024): Last Assessment & Plan: - Tylenol 1000 mg q6h - Robaxin 1000 mg qid - Oxycodone 5 mg q4h PRN -gabapentin 300 mg bid - Lidocaine patch daily Bowel regimen senna , Miralax Discharge planning issues 09/17/2023 Overview (01/12/2024): Last Assessment & Plan: 09/25: pending SNF placement. Seen by PT/OT Patient is medically stable for discharge, SW/CM updated. Discharge pending facility acceptance 09/27 Patient is medically stable for discharge, SW/CM updated. Discharge pending patient daughter to select a facility from the list of accepting facilities for disposition. Encounter for medication review 09/17/2023 Overview (01/12/2024): Last Assessment & Plan: - No past medical history, takes no medications at home Pulmonary nodule 09/17/2023 Overview (01/12/2024): Last Assessment & Plan: - CT C/A/P (09/15): Indeterminate right lower lobe pulmonary nodule with broad base along the pleura. Recommend comparison with prior imaging if available to document stability. If no prior imaging is available, recommend follow-up CT in 6-12 months. Cervical spondylosis with myelopathy 09/16/2023 Closed fracture of shaft of left tibia, unspecified fracture morphology, initial encounter 09/16/2023 Overview (01/12/2024): Last Assessment & Plan: #Left tib fib fracture - Orthopedic consult - s/p OR 09/15 IMN - NWB LLE - Maintain SLS - PT/OT - Pain control - Bone health referral at discharge Encounters Date Type Department Care Team Description 03/27/2024 10:19 AM CYTOTECHNOLOGIST - 03/27/2024 10:40 PM CYTOTECHNOLOGIST Emergency [facility] Emergency Room [address] [place] [id number] Raji Bernal MD Wound Recheck Discharge Disposition: Transfer to Acute Care Hospital 03/27/2024 Travel 03/23/2024 9:37 AM CYTOTECHNOLOGIST - 03/23/2024 11:59 PM CYTOTECHNOLOGIST Hospital Encounter [facility] [address] [place] [id number] Chavo Castañeda MD Discharge Disposition: Home or Self Care (Routine Discharge) 03/23/2024 Orders Only [facility] [address] [place] [id number] Chavo Castañeda MD 02/02/2024 3:20 PM CDT Residential [facility] [address] [address] Chavo Castañeda MD Residential (routine) 01/19/2024 6:00 PM CDT Residential [facility] [address] [address] Chavo Castañeda MD Residential (Poss sinus infection ) 01/19/2024 Orders Only [facility] [address] [phone] Chavo Castañeda MD 01/12/2024 1:20 PM CDT Residential [facility] [address] [address] Chavo Castañeda MD Residential (New admit) from Last 3 Months Social History Tobacco Use Types Packs/Day Years Used Date Smoking Tobacco: Unknown Tobacco Cessation:Counseling Given: No Comments No Sex and Gender Information Value Date Recorded Sex Assigned at Not on file Legal Sex Female 2:42 PM CDT Gender Identity Not on file Sexual Orientation Not on file Last Filed Vital Signs Vital Sign Reading Time Taken Comments Blood Pressure 95/59 03/27/2024 10:30 PM CYTOTECHNOLOGIST Pulse 131 03/27/2024 10:30 PM CYTOTECHNOLOGIST Temperature 37.1 ??C (98.7 ??F) 03/27/2024 5:20 PM CS T Respiratory Rate 24 03/27/2024 10:30 PM CYTOTECHNOLOGIST Oxygen Saturation 100% 03/27/2024 10:30 PM CYTOTECHNOLOGIST Inhaled Oxygen Concentration - - Weight 73.6 kg (162 lb 4.1 oz) 03/27/2024 10:20 AM CYTOTECHNOLOGIST Height 162.6 cm (5' 4 ) 03/27/2024 10:20 AM CYTOTECHNOLOGIST Body Mass Index 27.85 03/27/2024 10:20 AM CYTOTECHNOLOGIST Plan of Treatment Health Maintenance Due Date Last Done Comments Hepatitis C 1965 DTaP, Tdap and Td Vaccines ( 1 - Tdap) 1966 Zoster Vaccines (1 of 2) 1997 Annual Medicare Wellness Visit 2012 Dexa Scan (General) 2012 Pneumococcal Vaccine: 65+ Ye ars (1 of 1 - PCV) 2012 RSV Immunization or 60+ Years (1 - 1-dose 75+ series) 2022 COVID-19 Vaccine ( - 2023-2 5 season) 2023 Influenza Adult (#1) 2024 Meningococcal Vaccine Aged Out No chelsea edmundo eligible based on patient's age to complete this topic RSV Immunizations Under 20 Months Aged Out No longer eligible based on patient's age to complete this topic Procedures Procedure Name Priority Date/Time Associated Diagnosis Comments CT ABD+PEL W CON STAT 03/27/2024 12:2 5 PM CYTOTECHNOLOGIST URINE BACTERIA CULTURE STAT 11:57 AM CYTOTECHNOLOGIST URINALYSIS, AUTO, COMPLETE STAT 03/27/2024 11:57 AM CYTOTECHNOLOGIST XR CHEST PORTABLE STAT 03/27/2024 10: 55 AM CYTOTECHNOLOGIST CULTURE, BACTERIA, BLOOD STAT 03/27/2024 10:50 AM CYTOTECHNOLOGIST LACTIC ACID W REFLEX (SEPSIS) STAT 03/27/2024 10:50 AM CYTOTECHNOLOGIST LIPASE STAT 03/27/2024 10:50 AM CYTOTECHNOLOGIST TROPONIN, QUANT STAT 03/27/2024 10:50 AM CYTOTECHNOLOGIST COMPREHENSIVE METABOLIC PANEL STAT 03/27/2024 10:50 AM CYTOTECHNOLOGIST CBC W/DIFF AUTOMATED STAT 03/27/2024 10:50 AM CYTOTECHNOLOGIST ECG 12-LEAD Routine 03/27/2024 10:47 AM CYTOTECHNOLOGIST HC SMEAR GRAM/GIEMSA STAT 03/27/2024 10:40 AM CYTOTECHNOLOGIST CRITICAL CARE Routine 03/27/2024 10:29 AM CYTOTECHNOLOGIST CBC W/DIFF AUTOMATED Routine 03/23/2024 9:05 AM CYTOTECHNOLOGIST Stage 4 pressure ulcer (CMS/HCC HHS/HCC) Delayed wound healing SED RATE, ERYTHROCYTE (ESR) Routine 03/23/2024 9:05 AM CYTOTECHNOLOGIST Stage 4 pressure ulcer (CMS/HCC HHS/HCC) Delayed wound healing C-REACTIVE PROTEIN, HIGH SENSI Routine 03/23/2024 9:05 AM CYTOTECHNOLOGIST Stage 4 pressure ulcer (CMS/HCC HHS/HCC) Delayed wound healing from Last 3 Months Results * CT ABD+PEL W IV CON ONLY (03/27/2024 12:25 PM CYTOTECHNOLOGIST) Anatomical Region Laterality Modality Abdomen Computed Tomogra phy 03/27/2024 12:3 8 PM CYTOTECHNOLOGIST Impressions 03/27/2024 12:50 PM CYTOTECHNOLOGIST IMPRESSION: 1) Large decubitus ulcer with underlying soft tissue infection extending into the presacral space. 2. Destruction and osteomyelitis of the distal sacrum. No definite drainable abscess. 3. Severe arthritic changes at the hips especially on the left. Hypertrophy of the synovium and effusion in the left hip. Sequelae of chronic infection with superimposed acute infection cannot be excluded. 4. Postoperative changes in the abdomen with a stoma. 5. Underdistended segments of the colon including in the pelvis where inflammation and thickening of the rectal wall is difficult to exclude. Uncomplicated diverticula in the distal colon within the pelvis. Postoperative changes in the distal colon. 6. The remainder of the GI tract shows nonspecific appearance Hiatal hernia. 7. Gallstone. 8. Catheterized urinary bladder. 9. Prominent edema in the pelvic wall in the abdominal wall. Ordered By: RAJI BERNAL Interpreted By: Jagdish Durant MD, 03/27/2024 12:38 PM Narrative 03/27/2024 12:50 PM CYTOTECHNOLOGIST [facility] [address] [place] [id number] Examination: CT ABD+PEL W CON Exam time: 03/27/2024 12:06 PM Clinical history: There is difficult due to sulci are in the sacral region. Comparison: No priors. Technique: A dose lowering technique was used for this procedure, which may include, but is not limited to dose reduction technique, automated exposure control and the use of a iterative reconstruction and ALARA (as low as reasonably achievable)/image gently techniques. Images are performed with contrast and patient received 75 mL of Isovue-370. Findings: The base of the chest shows the heart size in the upper normal limits. In the lung bases small atelectatic changes. Mild elevation of the right hemidiaphragm. There is a hiatal hernia. Mild thickening of the distal esophagus. ABDOMEN: The size of the liver is borderline with fatty changes. The spleen is unremarkable. Gallstones. The gallbladder is not well distended. There is no biliary dilatation. Pancreas shows atrophy with homogeneous parenchyma and no focal lesions. In the perla hepatis there are no enlarged lymph nodes. No adrenal masses or nodules. Kidneys: Homogeneous nephrograms. In the right kidney there are no stones. There is no hydronephrosis. In the left kidney no stones or hydronephrosis. There is suggestion of parapelvic cysts in the left kidney. The right ureter shows no stones. In the left ureter no stones. Urinary bladder is catheterized. There is small pockets of air in the bladder lumen which may be iatrogenic although infection cannot be excluded. Borderline wall thickness of the urinary bladder. In the pelvis there is no midline mass or adnexal mass. Retroverted uterus with calcifications. Aorta: At least moderately calcified aorta. The major branches as visualized appear patent. Prominent calcifications are also seen including in the right renal artery and the proximal iliac arteries. Mesentery: There is no free air. Smooth peritoneal contours. In the mid abdomen there is no mass. The root of the mesentery shows no infiltration and portal vein is patent. No enlarged lymph nodes. GI tract: The stomach is not well distended for satisfactory assessment. Hiatal hernia as described. The small bowel loops are nonspecific. Mild retention of fluid and air in the duodenum and the mid abdominal small bowel loops. There is no obstructing pattern. There is no thickening of the small bowel wall. In the right lower quadrant no focal inflammation. Colon is very redundant with mild stool retention and mild spasm in the left and distal colon. The sigmoid is not well evaluated due to underdistention to rule out inflammation. Postoperative changes in the distal colon within the pelvis. Suggestion of few uncomplicated diverticula. There is also some concern about mild thickening of the rectal wall where inflammation may be present. In the left anterior abdominal wall left to the midline and there is a stoma. Adjacent bowel loops are unremarkable. In the posterior pelvis right to the midline and there is a large ulcerated with a skin defect and underlying infection extending from the skin to the presacral space. There is associated osteomyelitis and destruction of the distal sacrum. There is no definite drainable abscess. In the pelvis severe arthritic changes at the hip joints especially on the left. There is small effusion in the left hip. Sequelae of chronic infection perhaps with acute exacerbation in the left hip cannot be excluded. Please correlate clinically. Patchy osteopenia. Degenerative changes at the spine with mild scoliosis and osteopenia. In the abdominal wall there is no mass. There is however at least moderate edema in the abdominal wall at the pelvic wall which may represent third spacing of fluid. Procedure Note Jagdish Durant MD - 03/27/2024 [facility] [address] [place] [address] Examination: CT ABD+PEL W CON Exam time: 03/27/2024 12:06 PM Clinical history: There is difficult due to sulci are in the sacralregion. Comparison: No priors. Technique: A dose lowering technique was used for this procedure, whichmay include, but is not limited to dose reduction technique, automatedexposure control and the use of a iterative reconstruction and ALARA (aslow as reasonably achievable)/image gently techniques. Images areperformed with contrast and patient received 75 mL of Isovue-370. Findings: The base of the chest shows the heart size in the upper normallimits. In the lung bases small atelectatic changes. Mild elevation of theright hemidiaphragm. There is a hiatal hernia. Mild thickening of thedistal esophagus. ABDOMEN: The size of the liver is borderline with fatty changes. The spleen is unremarkable. Gallstones. The gallbladder is not well distended. There is no biliarydilatation. Pancreas shows atrophy with homogeneous parenchyma and no focal lesions.In the perla hepatis there are no enlarged lymph nodes. No adrenal masses or nodules. Kidneys: Homogeneous nephrograms. In the right kidney there are no stones.There is no hydronephrosis. In the left kidney no stones orhydronephrosis. There is suggestion of parapelvic cysts in the leftkidney. The right ureter shows no stones. In the left ureter no stones. Urinary bladder is catheterized. There is small pockets of air in thebladder lumen which may be iatrogenic although infection cannot beexcluded. Borderline wall thickness of the urinary bladder. In the pelvis there is no midline mass or adnexal mass. Retroverted uteruswith calcifications. Aorta: At least moderately calcified aorta. The major branches asvisualized appear patent. Prominent calcifications are also seen includingin the right renal artery and the proximal iliac arteries. Mesentery: There is no free air. Smooth peritoneal contours. In the midabdomen there is no mass. The root of the mesentery shows no infiltrationand portal vein is patent. No enlarged lymph nodes. GI tract: The stomach is not well distended for satisfactory assessment.Hiatal hernia as described. The small bowel loops are nonspecific. Mildretention of fluid and air in the duodenum and the mid abdominal smallbowel loops. There is no obstructing pattern. There is no thickening ofthe small bowel wall. In the right lower quadrant no focal inflammation. Colon is very redundant with mild stool retention and mild spasm in theleft and distal colon. The sigmoid is not well evaluated due tounderdistention to rule out inflammation. Postoperative changes in thedistal colon within the pelvis. Suggestion of few uncomplicateddiverticula. There is also some concern about mild thickening of therectal wall where inflammation may be present. In the left anterior abdominal wall left to the midline and there is astoma. Adjacent bowel loops are unremarkable. In the posterior pelvis right to the midline and there is a largeulcerated with a skin defect and underlying infection extending from theskin to the presacral space. There is associated osteomyelitis anddestruction of the distal sacrum. There is no definite drainableabscess. In the pelvis severe arthritic changes at the hip joints especially on theleft. There is small effusion in the left hip. Sequelae of chronicinfection perhaps with acute exacerbation in the left hip cannot beexcluded. Please correlate clinically. Patchy osteopenia. Degenerative changes at the spine with mild scoliosis and osteopenia. In the abdominal wall there is no mass. There is however at least moderateedema in the abdominal wall at the pelvic wall which may represent thirdspacing of fluid. IMPRESSION: 1) Large decubitus ulcer with underlying soft tissue infection extendinginto the presacral space. 2. Destruction and osteomyelitis of the distal sacrum. No definitedrainable abscess. 3. Severe arthritic changes at the hips especially on the left.Hypertrophy of the synovium and effusion in the left hip. Sequelae ofchronic infection with superimposed acute infection cannot be excluded. 4. Postoperative changes in the abdomen with a stoma. 5. Underdistended segments of the colon including in the pelvis whereinflammation and thickening of the rectal wall is difficult to exclude.Uncomplicated diverticula in the distal colon within the pelvis.Postoperative changes in the distal colon. 6. The remainder of the GI tract shows nonspecific appearance Hiatalhernia. 7. Gallstone. 8. Catheterized urinary bladder. 9. Prominent edema in the pelvic wall in the abdominal wall. Ordered By: RAJI BERNAL Interpreted By: Jagdish Durant MD, 03/27/2024 12:38 PM us Raji Bernal MD CT Final R esult * URINE BACTERIA CULTURE (03/27/2024 11:57 AM CYTOTECHNOLOGIST) SPEC DESCRIPTION URINE CLEAN CATCH 03/27/2024 11:58 AM CYTOTECHNOLOGIST [facility] SPECIAL REQUESTS NO SPECIAL REQUEST 03/27/2024 11:58 AM CYTOTECHNOLOGIST [facility] CULTURE RESULT MULTIPLE ORGANISMS PRESENT, PROBABLE CONTAMINATION . SUGGEST REPEAT CULTURE. 03/29/2024 9:32 AM CYTOTECHNOLOGIST [facility] URINE SPECIMEN OBTAINED BY CLEAN CATCH PROCEDURE / Unknown 03/27/2024 11:57 AM CYTOTECHNOLOGIST 03/27/2024 12:02 PM CYTOTECHNOLOGIST us Raji Bernal MD MICROBIOLOGY - GENERAL ORDERABLES Final Result [facility] [address] [place] [address], [place] [phone] [facility] [address] [place] [address], [place] [phone] * (ABNORMAL) URINALYSIS, AUTO, COMPLETE (03/27/2024 11:57 AM CYTOTECHNOLOGIST) COLOR (U) YELLOW 03/27/2024 12:11 PM [facility] TRANSPARENCY CLEAR 03/27/2024 12:11 PM [facility] SPECIFIC GRAVITY (U) <1.005 1.000 - 1.030 03/27/2024 12:11 PM [facility] U PH 7.0 5.0 - 9.0 03/27/2024 12:11 PM [facility] LEUKOCYTES (U) 3+(A) NEGATIVE 03/27/2024 12:11 PM [facility] NITRITES NEGATIVE NEGATIVE 03/27/2024 12:11 PM [facility] PROTEIN RANDOM (U) TRACE(A) NEGATIVE 03/27/2024 12:11 PM [facility] GLUCOSE (U) NEGATIVE NEGATIVE 03/27/2024 12:11 PM [facility] KETONES MG/DL (U) TRACE(A) NEGATIVE 03/27/2024 12:11 PM [facility] BILIRUBIN (U) NEGATIVE NEGATIVE 03/27/2024 12:11 PM [facility] BLOOD (U) TRACE(A) NEGATIVE 03/27/2024 12:11 PM [facility] WBC/HPF 10-25 0 - 5 /HPF 03/27/2024 12:11 PM [facility] RBC/HPF 0-5 0 - 5 /HPF 03/27/2024 12:11 PM [facility] EPI/HPF NONE SEEN /HPF 03/27/2024 12:11 PM [facility] BACTERIA (U) RARE /HPF 03/27/2024 12:11 PM [facility] URINE SPECIMEN OBTAINED BY CLEAN CATCH PROCEDURE / Unknown 03/27/2024 11:57 AM CYTOTECHNOLOGIST Raji Bernal MD URINE ORDERABLES Final Result Performing Organization Address City/State/[facility] de Phone Number [facility] [address] [place] [address], * XR CHEST PORTABLE (03/27/2024 10:55 AM CYTOTECHNOLOGIST) Anatomical Region Laterality Modality Chest Radiographic Kait ging 03/27/2024 11:0 3 AM CYTOTECHNOLOGIST Impressions 03/27/2024 11:05 AM CYTOTECHNOLOGIST IMPRESSION: 1. Possible small left pleural effusion. Ordered By: RAJI BERNAL Interpreted By: Carloz Aguillon MD, 03/27/2024 11:03 AM Narrative 03/27/2024 11:05 [place] [address] Examination: X-ray chest, 1 view Exam time: 03/27/2024 Clinical history: Sepsis. Comparison: None available Technique: Single frontal upright view of the chest obtained. FINDINGS: No parenchymal consolidation. Blunting of left costophrenic angle. No discrete pneumothorax or large pleural effusion. Possible tortuous ectatic aorta. Degenerative changes shoulders. Spondylosis. Spinal fusion. Procedure Note Carloz Aguillon MD - 03/27/[address] [place] [address] Examination: X-ray chest, 1 view Exam time: 03/27/2024 Clinical history: Sepsis. Comparison: None available Technique: Single frontal upright view of the chest obtained. FINDINGS: No parenchymal consolidation. Blunting of left costophrenic angle. Nodiscrete pneumothorax or large pleural effusion. Possible tortuous ectaticaorta. Degenerative changes shoulders. Spondylosis. Spinal fusion. IMPRESSION: 1. Possible small left pleural effusion. Ordered By: RAJI BERNAL Interpreted By: Carloz Aguillon MD, 03/27/2024 11:03 AM us Raji Bernal MD GENERAL IMAGING Final R esult * LACTIC ACID W REFLEX (SEPSIS) (03/27/2024 10:50 AM CYTOTECHNOLOGIST) LACTIC ACID VENOUS 1.8 0.4 - 2.0 MMOL/L 03/27/2024 11:26 AM CYTOTECHNOLOGIST [facility] 03/27/2024 10:5 0 AM CYTOTECHNOLOGIST us Raji Bernal MD LABORATORY Final R esult [facility] [id number] [place], [place] [id number], * (ABNORMAL) COMPREHENSIVE METABOLIC PANEL (03/27/2024 10:50 AM CYTOTECHNOLOGIST) [facility] GLUCOSE 97 70 - 99 MG/DL 03/27/2024 11:21 AM [facility] BUN 10 7 - 18 MG/DL 03/27/2024 11:21 AM [facility] CREATININE S/P/B 0.64 0.55 - 1.02 MG/DL 03/27/2024 11:21 AM [facility] SODIUM S/P/B 130(L) 136 - 145 MMOL/L 03/27/2024 11:21 AM [facility] POTASSIUM S/P/B 3.6 3.5 - 5.1 MMOL/L 03/27/2024 11:21 AM [facility] CHLORIDE S/P/B 96(L) 100 - 108 MMOL/L 03/27/2024 11:21 AM [facility] CO2 28.4 21 - 32 MMOL/L 03/27/2024 11:21 AM [facility] CALCIUM S/P/B 7.9(L) 8.5 - 10.1 MG/DL 03/27/2024 11:21 AM [facility] BILIRUBIN TOTAL S/P/B 0.7 0.2 - 1.2 MG/DL 03/27/2024 11:21 AM [facility] TOTAL PROTEIN S/P/B 5.6(L) 6.4 - 8.2 G/DL 03/27/2024 11:21 AM [facility] ALBUMIN S/P/B 1.2(L) 3.4 - 5.0 G/DL 03/27/2024 11:21 AM [facility] AST 21 15 - 37 U/L 03/27/2024 11:21 AM [facility] ALT 11(L) 14 - 55 U/L 03/27/2024 11:21 AM [facility] ALKALINE PHOSPHATASE S/P/B 93 50 - 136 U/L 03/27/2024 11:21 AM [facility] ANION GAP 5.6 5 - 15 MMOL/L 03/27/2024 11:21 AM [facility] BUN CREATININE RATIO 15.6 6 - 26 03/27/2024 11:21 AM [facility] A/G RATIO 0.3(L) 1.0 - 2.0 RATIO 03/27/2024 11:21 AM [facility] GFR ESTIMATE >90 >90 ML/MIN/1.7 3 M2 03/27/2024 11:21 AM [facility] Comment: NOTE: eGFR is not calculated for patients <18 years of age. This is an estimated GFR calculation using the new CKD EPI creatinine equation without race and so does not require a correction factor for race. This estimated GFR should not be used for calculating drug doses. 03/27/2024 10:5 0 AM CYTOTECHNOLOGIST us Raji Bernal MD LABORATORY Final R esult [facility] [address] [place] [address], * (ABNORMAL) BLOOD CULTURE #1 (03/27/2024 10:50 AM CYTOTECHNOLOGIST) SPEC DESCRIPTION BLOOD 03/27/2024 10:31 AM [facility] SPECIAL REQUESTS NO SPECIAL REQUEST 03/27/2024 10:31 AM [facility] GRAM STAIN RESULT GRAM POSITIVE COCCI RESEMBLING STREPTOCOCCUS SPECIES 03/28/2024 4:43 PM [facility] GRAM STAIN RESULT GRAM STAIN RESULTS CALLED TO AND REPEATED BACK BY JEFE LOVELACE AT 16:21 ON 03/28/2024 [facility] 03/28/2024 4:43 PM [facility] GRAM STAIN RESULT CALLED AND FAXED TO [facility] 03/28/2024 1642/DVO 03/28/2024 4:43 PM [facility] CULTURE RESULT GROWTH OF STREPTOCOCCI, BETA HEMOLYTIC GROUP A (AA) 03/30/2024 7:00 AM [facility] BLOOD SPECIMEN OBTAINED FOR BLOOD CULTURE / Unknown 03/27/2024 10:50 AM CYTOTECHNOLOGIST 03/27/2024 11:03 AM CYTOTECHNOLOGIST Narrative Organism Antibiotic Method Susceptibility Streptococci, beta hemolytic group a CEFTRIAXONE RADHA (ETEST) 0.016: Sensitive Streptococci, beta hemolytic group a PENICILLIN G RADHA (ETEST) 0.016: Sensitive Raji Bernal MD MICROBIOLOGY - GENERAL ORDERABLES Final Result Performing Organization Address City/State/[facility] Co de Phone Number [facility] [address] [place] [address], [place] [phone] [facility] [address] [place] [address], [place] [phone] * (ABNORMAL) CBC W/DIFF AUTOMATED (03/27/2024 10:50 AM CYTOTECHNOLOGIST) Only the most recent of2 resultswithin the time period is included. WBC 41.56(H) 4.4 - 11.0 x10'3/uL 03/27/2024 11:11 AM CYTOTECHNOLOGIST [facility] RBC 3.22(L) 4.50 - 5.10 x10'6/uL 03/27/2024 11:11 AM [facility] HGB 8.2(L) 12.3 - 15.3 G/DL 03/27/2024 11:11 AM [facility] HCT 26.1(L) 35.9 - 44.6 % 03/27/2024 11:11 AM [facility] MCV 81.1 80.0 - 96.0 FL 03/27/2024 11:11 AM [facility] MCH 25.5 25.3 - 30.9 PG 03/27/2024 11:11 AM [facility] MCHC 31.4 31.0 - 34.1 G/DL 03/27/2024 11:11 AM [facility] RDW 17.3(H) 12.4 - 15.1 % 03/27/2024 11:11 AM [facility] PLT 643(H) 151 - 353 x10'3/uL 03/27/2024 11:11 AM [facility] MPV 9.0(L) 9.6 - 12.0 FL 03/27/2024 11:11 AM [facility] RBC MORPHOLOGY NORMAL 03/27/2024 11:11 AM [facility] PLT MORPH. NORMAL 03/27/2024 11:11 AM [facility] WBC MORPHOLOGY NORMAL 03/27/2024 11:11 AM [facility] LYMPHOCYTES % 3.5(L) 15.8 - 45.0 % 03/27/2024 11:11 AM [facility] NEUTROPHILS % 88.6(H) 42.1 - 71.9 % 03/27/2024 11:11 AM [facility] MONOCYTES % 4.8(L) 5.7 - 12.5 % 03/27/2024 11:11 AM [facility] EOSINOPHILS 0.1 0.0 - 5.6 % 03/27/2024 11:11 AM [facility] BASOPHILS 0.2 0.0 - 1.3 % 03/27/2024 11:11 AM CYTOTECHNOLOGIST [facility] ABS. NEUTROPHILS 36.82(H) 1.40 - 6.00 x10'3/uL 03/27/2024 11:11 AM [facility] IMMATURE GRANS % 2.8(H) 0.0 - 0.5 % 03/27/2024 11:11 AM CYTOTECHNOLOGIST [facility] ABS. LYMPHOCYTES 1.44 0.80 - 4.70 x10'3/uL 03/27/2024 11:11 AM CYTOTECHNOLOGIST [facility] 03/27/2024 10:5 0 AM CYTOTECHNOLOGIST Raji Bernal MD LABORATORY Final R esult Performing Organization Address City/[facility]/ZIP Co de Phone Number [facility] [address] [place] [address], [place] [phone] * TROPONIN, QUANT (03/27/2024 10:50 AM CYTOTECHNOLOGIST) Pathologist [facility] TROPONIN I HIGH SENSITIVITY 7 0 - 50 ng/L 03/27/2024 11:26 AM CYTOTECHNOLOGIST [facility] Comment: HIGH DOSES OF BIOTIN, TROPONIN-SPECIFIC AUTOANTIBODIES, AND ANTIBODY THERAPY CONTAINING HAMA MAY INTERFERE WITH THIS TEST RESULT. CORRELATION TO CLINICAL HISTORY AND PRESENTATION RECOMMENDED. 03/27/2024 10:5 0 AM CYTOTECHNOLOGIST Raji Bernal MD LABORATORY Final R esult [facility] [address] [place] [address], [place] [phone] * (ABNORMAL) LIPASE (03/27/2024 10:50 AM CYTOTECHNOLOGIST) LIPASE 7(L) 16 - 77 UNITS/L 03/27/2024 11:21 AM CYTOTECHNOLOGIST [facility] 03/27/2024 10:5 0 AM CYTOTECHNOLOGIST us Raji Bernal MD LABORATORY Final R esult Performing Organization Address [facility]/State/ZIP Co de Phone Number [facility] [address] [place] [address], * ECG 12 lead (03/27/2024 10:47 AM CYTOTECHNOLOGIST) 03/27/2024 10:4 7 AM CYTOTECHNOLOGIST Narrative [facility] ([facility]) RAD - 03/27/2024 11:30 AM CYTOTECHNOLOGIST ?[facility] ? Test Date: ?2024-03-27 Pat Name: ? AIDEE PADRON ? Department: ?? 85 ? Room: ? TRA1 TR1 Gender: ? Female ? 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 : ?1945 ? Requested By: RAJI BERNAL Order Number: [id number] ? Reading : ?? Chavo Castañeda ? Measurements Intervals ?[employer] ? Rate: ? 154 ?P: ? MD: ? 0 ?QRS: ?52 QRSD: ? 82 ? T: ?53 QT: ? 250 ? QTc: ?400 ? Interpretive Statements ATRIAL FIBRILLATION WITH RAPID VENTRICULAR RESPONSE +++ CRITICAL TEST RESULT +++ No previous ECG available for comparison TECHNOLOGIST Procedure Note Chavo Castañeda MD - 03/27/2024 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: : 1945 Requested By: RAJI BERNAL Order Number: [id number] Reading MD: Chavo Castañeda Measurements Intervals [employer] Rate: 154 P: MD: 0 QRS: 52 QRSD: 82 T: 53 QT: 250 QTc: 400 Interpretive Statements ATRIAL FIBRILLATION WITH RAPID VENTRICULAR RESPONSE +++ CRITICAL TEST RESULT +++ No previous ECG available for comparison TECHNOLOGIST us Raji Bernal MD ECG ORDERABLES Final R esult [facility] ([facility]) RAD * (ABNORMAL) CULTURE, WOUND, W/GRAM STAIN (03/27/2024 10:40 AM CYTOTECHNOLOGIST) SPEC DESCRIPTION BACK 03/27/2024 11:04 AM CYTOTECHNOLOGIST [facility] SPECIAL REQUESTS NO SPECIAL REQUEST 03/27/2024 11:04 AM CYTOTECHNOLOGIST [facility] GRAM STAIN RESULT NO WHITE BLOOD CELLS SEEN 03/29/2024 9:52 AM CYTOTECHNOLOGIST [facility] GRAM STAIN RESULT MANY RED BLOOD CELLS SEEN 03/29/2024 9:52 AM CYTOTECHNOLOGIST [facility] GRAM STAIN RESULT MODERATE GRAM POSITIVE COCCI 03/29/2024 9:52 AM CYTOTECHNOLOGIST [facility] CULTURE RESULT SPARSE GROWTH OF PROTEUS MIRABILIS (A) 2024 7:41 AM CYTOTECHNOLOGIST [facility] CULTURE RESULT LIGHT GROWTH OF STREPTOCOCCI, BETA HEMOLYTIC GROUP A SUSCEPTIBILTY NOT ROUTINELY PERFORMED. SAVING ISOLATE FOR 5 DAYS. CONTACT MICROBIOLOGY DEPARTMENT IF FURTHER WORKUP IS INDICATED. (A) 2024 7:41 AM CYTOTECHNOLOGIST [facility] CULTURE RESULT SPARSE GROWTH OF KLEBSIELLA PNEUMONIAE PROBABLE EXTENDED SPECTRUM BETA LACTAMASE VACUUM COOKER OPERATOR (A) 2024 7:41 AM CYTOTECHNOLOGIST [facility] SPECIMEN FROM TRUNK / Unknown 03/27/2024 10:40 AM CYTOTECHNOLOGIST 03/27/2024 11:29 AM CYTOTECHNOLOGIST Narrative Organism Antibiotic Method Susceptibility Proteus mirabilis AMPICILLIN RADHA (VITEK) >=32: Resistant Proteus mirabilis AMPICILLIN/SULBACTAM RADHA (VITEK) 8: Sensitive Proteus mirabilis CEFEPIME RADHA (VITEK) <=1: Resistant Proteus mirabilis CEFTRIAXONE RADHA (VITEK) 2: Resistant Proteus mirabilis CEFTAZIDIME RADHA (VITEK) <=1: Resistant Proteus mirabilis CEFAZOLIN RADHA (VITEK) >=64: Resistant Proteus mirabilis GENTAMICIN RADHA (VITEK) <=1: Sensitive Proteus mirabilis LEVOFLOXACIN RADHA (VITEK) <=0.12: Sensitive Proteus mirabilis MEROPENEM RADHA (VITEK) <=0.25: Sensitive Proteus mirabilis PIPRACIL/TAZO RADHA (VITEK) <=4: Sensitive Proteus mirabilis TRIMETH-SULFAMETH. RADHA (VITEK) <=20: Sensitive Klebsiella pneumoniae AMPICILLIN RADHA (VITEK) >=32: Resistant Klebsiella pneumoniae AMIKACIN RADHA (VITEK) 4: Sensitive Klebsiella pneumoniae AMPICILLIN/SULBACTAM RADHA (VITEK) >=32: Resistant Klebsiella pneumoniae CEFEPIME RADHA (VITEK) 32: Resistant Klebsiella pneumoniae CEFTRIAXONE RADHA (VITEK) >=64: Resistant Klebsiella pneumoniae CEFTAZIDIME RADHA (VITEK) 16: Resistant Klebsiella pneumoniae CEFAZOLIN RADHA (VITEK) >=64: Resistant Klebsiella pneumoniae ESBL RADHA (VITEK) POS: Resistant Klebsiella pneumoniae GENTAMICIN RADHA (VITEK) >=16: Resistant Klebsiella pneumoniae LEVOFLOXACIN RADHA (VITEK) 1: Sensitive Klebsiella pneumoniae MEROPENEM RADHA (VITEK) <=0.25: Sensitive Klebsiella pneumoniae PIPRACIL/TAZO RADHA (VITEK) 16: Sensitive Klebsiella pneumoniae TRIMETH-SULFAMETH. RADHA (VITEK) >=320: Resistant Klebsiella pneumoniae TOBRAMYCIN RADHA (VITEK) >=16: Resistant Raji Bernal MD MICROBIOLOGY - GENERAL ORDERABLES Final Result [facility] [address] [place] [address], [place] [phone] [facility] [address] [place] [address], [place] [phone] * Critical Care (03/27/2024 10:29 AM CYTOTECHNOLOGIST) Narrative Raji Bernal MD - 03/27/2024 10:29 AM CYTOTECHNOLOGIST Raji Bernal MD ? 03/27/2024 ??5:38 PM Critical Care Performed by: Raji Bernal MD Authorized by: Raji Bernal MD ?? Critical care provider statement: ??Critical care time (minutes): ??55 ??Critical care was necessary to treat or prevent imminent or life-threatening deterioration of the following conditions: ??Cardiac failure, sepsis and dehydration ??Critical care was time spent personally by me on the following activities: ??Blood draw for specimens, development of treatment plan with patient or surrogate, discussions with consultants, evaluation of patient's response to treatment, examination of patient, ordering and performing treatments and interventions, ordering and review of radiographic studies and re-evaluation of patient's condition ??I assumed direction of critical care for this patient from another provider in my specialty: no ?Care discussed with: accepting provider at another facility ?? Raji Bernal MD PROCEDURE/MINOR SURGICA L ORDERABLES Final Result * (ABNORMAL) SED RATE, ERYTHROCYTE (ESR) (03/23/2024 9:05 AM CYTOTECHNOLOGIST) ESR 89(H) 0 - 20 MM/HR 03/23/2024 10:02 AM CYTOTECHNOLOGIST [facility] 03/23/2024 9:05 AM CYTOTECHNOLOGIST Chavo Castañeda MD LABORATORY Final Resul t Performing Organization Address [facility]/State/[facility] Co de Phone Number [facility] [address] [place] [address], * (ABNORMAL) C-REACTIVE PROTEIN, HIGH SENSI (03/23/2024 9:05 AM CYTOTECHNOLOGIST) HS-CRP 14.80(H) <0.3 mg/dL 03/23/2024 2:42 PM CYTOTECHNOLOGIST [facility] 03/23/2024 9:05 AM CYTOTECHNOLOGIST Chavo Castañeda MD LABORATORY Final Resul t [facility] [address] [place] [address], from Last 3 Months Additional Health Concerns Infection Onset Date Last Indicated ESBL - Extended Spectrum Bet a-lactamase Comment:03/27/24 back (RR) 03/27/2024 03/27/2024 Insurance [employer] Care Teams Medical Doctor Md Relationship Specialty Start Date End Date Chavo Castañ[place] [address] [place] [address] PCP - General FAMILY PRACTICE 01/11/24
--- OUTSIDE RECORDS SUMMARY | 2024-04-02 06:28 | XMS_ITS | Encounter Summary ---
Author Organization [facility] Address [address] [place] [address]. [place], [place] [address] [place] [address] Care Team Providers Care Aquatics Instructor Name Role Phone Chavo Castañeda MD Primary Care Provider [phone]- [phone] Reason for Visit * Reason Comments Snf Poss sinus infection Encounter Details Date Type Department Care Team (Late st Contact Info) Description 01/19/2024 6:00 PM CDT Snf [facility] Family & Internal Medicine [address] [phone] Chavo Castañeda MD [address] [place] [address] Snf (Poss sinus infection ) Social History Tobacco Use Types Packs/Day Years Used Date Smoking Tobacco: Unknown Tobacco Cessation:Counseling Given: No Comments Unknown Sex and Gender Information Value Date Recorded Sex Assigned at Not on file Legal Sex Female 2:42 PM CDT Gender Identity Not on file Sexual Orientation Not on file documented as of this encounter Last Filed Vital Signs Vital Sign Reading Time Taken Comments Blood Pressure 148/82 01/19/2024 12:00 PM CDT unable to completed 2nd bp [facility] PT Pulse 80 01/19/2024 12:00 PM CDT Temperature 36.6 ??C (97.8 ??F) 01/19/2024 1 2:00 PM CDT Respiratory Rate 16 01/19/2024 12:0 0 PM CDT Oxygen Saturation 98% 01/19/2024 12: 00 PM CDT Inhaled Oxygen Concentration - - Weight 74.8 kg (165 lb) 01/19/2024 12:0 0 PM CDT Height - - Body Mass Index - - documented in this encounter Patient Instructions * Patient Instructions* Chavo Castañeda MD - 01/19/2024 6:00 PM CDT 1) Acute sinusitis: will start mucinex, aftrin and continue antibiotics. Recommend pushing fluid and tylenol as needed documented in this encounter Progress Notes * Chavo Castañeda MD - 01/19/2024 6:00 PM CDT Images from the original note were not included. Office Progress Note Reason for Visit: Snf (Poss sinus infection ) History of Present Illness: HPI Pt with a history of a-fib, had a fall resulting in a closed fracture of her tibia and was admittedin the hospital and had a pinning. She presents today for sinus congestion with post nasal drainageand productive cough, with no sob, fever, sore throat, wheezing ROS: Review of Systems Constitutional: Positive for malaise/fatigue and weight loss. Negative for fever. HENT: Negative for congestion, hearing loss and tinnitus. Eyes: Negative for blurred vision and double vision. Respiratory: Positive for cough and sputum production. Negative for shortness of breath and wheezing. Cardiovascular: Negative for chest pain, palpitations and leg swelling. Gastrointestinal: Negative for blood in stool, constipation, diarrhea, heartburn, melena and nausea. Genitourinary: Negative for dysuria and hematuria. Musculoskeletal: Positive for back pain, falls and myalgias. Skin: Large sacral and hip skin ulcers Neurological: Positive for sensory change. Negative for dizziness, focal weakness and headaches. Endo/Heme/Allergies: Does not bruise/bleed easily. Psychiatric/Behavioral: Positive for depression. Negative for memory loss and substance abuse. The patient does not have insomnia. Medications: Current Outpatient Medications: Acetaminophen 500 MG Cap, Take 1,000 mg by mouth every 6 (six) hours., Disp: , Rfl: aspirin 81 MG chewable tablet, Chew 1 tablet (81 mg total) by mouth daily., Disp: , Rfl: calcium carbonate-vitamin D (OYSTER SHELL CALCIUM W/D) 500-5 MG-MCG Tab tablet, Take 1 tablet by mouth 2 (two) times daily., Disp: , Rfl: cyclobenzaprine (FLEXERIL) 10 MG tablet, Take 1 tablet (10 mg total) by mouth every 12 (twelve) hours., Disp: , Rfl: diazePAM (VALIUM) 5 MG tablet, , Disp: , Rfl: gabapentin (NEURONTIN) 300 MG capsule, Take 1 capsule (300 mg total) by mouth 2 (two) times daily.,Disp: , Rfl: lidocaine 4 % patch, Place 2 patches onto the skin daily., Disp: , Rfl: methocarbamol (ROBAXIN) 500 MG tablet, Take 2 tablets (1,000 mg total) by mouth 4 (four) times daily., Disp: , Rfl: oxyCODONE immediate release (ROXICODONE) 5 MG immediate release tablet, Take 1 tablet (5 mg total) by mouth., Disp: , Rfl: polyethylene glycol (GLYCOLAX) 17 GM/SCOOP powder, Take 17 g by mouth daily., Disp: , Rfl: rOPINIRole (REQUIP) 0.5 MG tablet, Take 1 tablet (0.5 mg total) by mouth 3 (three) times daily., Disp: , Rfl: SANTYL ointment, , Disp: , Rfl: senna-docusate (SENOKOT-S) 8.6-50 MG tablet, Take 1 tablet by mouth 2 (two) times daily., Disp: , Rfl: traZODone (DESYREL) 50 MG tablet, Take 1 tablet (50 mg total) by mouth daily., Disp: , Rfl: Allergies: Review of patient's allergies indicates: No Known Allergies Medical History: History reviewed. No pertinent past medical history. Surgical History: History reviewed. No pertinent surgical history. Social History: Social History Tobacco Use Smoking status: Unknown Family History: No family history on file. PE: Physical Exam Vitals and nursing note reviewed. Constitutional: General: She is not in acute distress. HENT: Head: Normocephalic and atraumatic. Nose: Congestion present. No rhinorrhea. Mouth/Throat: Mouth: Mucous membranes are moist. Eyes: General: No scleral icterus. Conjunctiva/sclera: Conjunctivae normal. Pupils: Pupils are equal, round, and reactive to light. Neck: Vascular: No carotid bruit. Cardiovascular: Rate and Rhythm: Normal rate and regular rhythm. Pulses: Normal pulses. Pulmonary: Effort: Pulmonary effort is normal. Breath sounds: No wheezing, rhonchi or rales. Abdominal: General: Abdomen is flat. There is no distension. Palpations: There is no mass. Musculoskeletal: General: No swelling. Normal range of motion. Cervical back: Normal range of motion. Lymphadenopathy: Cervical: No cervical adenopathy. Skin: General: Skin is warm. Coloration: Skin is not jaundiced. Comments: Large stage 4 decub of the sacrum and small ones of the hip and leg Neurological: General: No focal deficit present. Mental Status: She is alert and oriented to person, place, and time. Cranial Nerves: No cranial nerve deficit. Psychiatric: Mood and Affect: Mood normal. Behavior: Behavior normal. Filed Vitals: 01/19/24 1200 BP: (!) 148/82 Pulse: 80 Resp: 16 Temp: 97.8 ??F (36.6 ??C) TempSrc: Temporal SpO2: 98% Weight: 74.8 kg (165 lb) There is no height or weight on file to calculate BMI. Diagnoses/Impression: 1. Acute non-recurrent frontal sinusitis Recommendations and Plan: Patient Instructions 1) Acute sinusitis: will start mucinex, aftrin and continue antibiotics. Recommend pushing fluid and tylenol as needed PCP: CHAVO CASTAÑEDA MD 01/23/2024 documented in this encounter Plan of Treatment Not on file documented as of this encounter Visit Diagnoses Diagnosis Acute non-recurrent frontal sinusitis- Primary documented in this encounter Care Teams Aquatics Instructor Relationship Specialty Start Date End Date Chavo Castañ[place] [address] [place] [address] PCP - General FAMILY PRACTICE 01/11/24 documented as of this encounter
--- OUTSIDE RECORDS SUMMARY | 2024-04-02 06:28 | XMS_ITS | Encounter Summary ---
Author Organization [facility] Address [address] [place] [address]. [place], [place] [id number] [place] [address] Care Team Providers Care Senior Safety Support Manager Name Role Phone Chavo Castañeda MD Primary Care Provider [phone]- [phone] Reason for Visit * Reason Comments CT (SCAN) Encounter Details Date Type Department Care Team (Latest Contact Info) Description 09/16/2023 Scan HEALTH INFO [facility]CS Scanned, Doc Med Group CT (SCAN) Social History Tobacco Use Types Packs/Day Years Used Date Smoking Tobacco: Never Assessed Comments Unknown Sex and Gender Information Value Date Recorded Sex Assigned at Not on file Legal Sex Female 2:42 PM CDT Gender Identity Not on file Sexual Orientation Not on file documented as of this encounter Plan of Treatment Not on file documented as of this encounter Procedures Procedure Name Priority Date/Time Associated Diagnosis Comments CT GENERIC 09/16/2023 documented in this encounter Results * CT GENERIC (09/16/2023) Anatomical Region Laterality Modality Other 09/16/2023 us Doc Med [facility] Scanned SCANNING Final Resu lt documented in this encounter Visit Diagnoses Not on filedocumented in this encounter Care Teams Senior Safety Support Manager Relationship Specialty Start Date End Date Chavo Castañeda [place] [address] [place] [address] PCP - General FAMILY PRACTICE 01/11/24 documented as of this encounter
--- OUTSIDE RECORDS SUMMARY | 2024-04-02 06:28 | XMS_ITS | Encounter Summary ---
Author Organization [facility] Address [address] [place] [address]. [place], [place] [id number] [place], [place] [id number] Care Team Providers Care Planning And Analysis Manager Name Role Phone Chavo Castañeda MD Primary Care Provider [phone] Reason for Visit * Reason Comments Mcc routine Encounter Details Date Type Department Care Team (Late st Contact Info) Description 02/02/2024 3:20 PM CDT Mcc [facility] Family & Internal Medicine [facility] [id number] [place] [phone] Chavo Castañeda MD [address] [place] [address] Mcc (routine) Social History Tobacco Use Types Packs/Day Years [...] Sign Reading Time Taken Comments Blood Pressure 106/56 02/02/2024 9:44 AM CDT Pulse 63 02/02/2024 9:44 AM CDT Temperature 36.7 ??C (98 ??F) 02/02/2024 9:44 AM CDT Respiratory Rate 18 02/02/2024 9:44 AM CDT Oxygen Saturation 94% 02/02/2024 9:44 AM CDT Inhaled Oxygen Concentration - - Weight 74.8 kg (165 lb) 02/02/2024 9:44 AM CDT Height - - Body Mass Index - - documented in this encounter Patient Instructions * Patient Instructions* Chavo Castañeda MD - 02/02/2024 3:20 PM CDT I have reviewed her chart and have examined the patient and will continue wound care, she has declined wound care out side the hospital and will follow her cbc,c-reactive protein, esr renal,electrolytes and lipids documented in this encounter Progress Notes * Chavo Castañeda MD - 02/02/2024 3:20 PM CDT Images from the original note were not included. Office Progress Note Reason for Visit: Mcc (routine) History of Present Illness: HPI Pt with a history of a-fib, had a fall resulting in a closed fracture of her left tibia and was admitted in the hospital and had a pinning. She left AMA taken to her daughters house who was not thereand was immobile for over ten days then taken to a rehab facility and developed a large sacral and right hip decub has been admitted to [facility] for rehab due to deconditioning. States has pain, but no fever, chest pain, palpitations, dizziness, sob, anorexia, focal weakness or paresthesia and wound hasimproved. Today presents for routine physical ROS: Review of Systems Constitutional: Positive for malaise/fatigue and weight loss. Negative for fever. HENT: Negative for congestion, hearing loss and tinnitus. Eyes: Negative for blurred vision and double vision. Respiratory: Negative for cough, shortness of breath and wheezing. Cardiovascular: Negative [...] not have insomnia. Medications: Current Outpatient Medications: ??? Acetaminophen 500 MG Cap, Take 1,000 mg by mouth every 6 (six) hours., Disp: , Rfl: ??? aspirin 81 MG chewable tablet, Chew 1 tablet (81 mg total) by mouth daily., Disp: , Rfl: ??? calcium carbonate-vitamin D (OYSTER SHELL CALCIUM W/D) 500-5 MG-MCG Tab tablet, Take 1 tablet by mouth 2 (two) times daily., Disp: , Rfl: ??? cyclobenzaprine (FLEXERIL) 10 MG tablet, Take 1 tablet (10 mg total) by mouth every 12 (twelve)hours., Disp: , Rfl: ??? diazePAM (VALIUM) 5 MG tablet, , Disp: , Rfl: ??? gabapentin (NEURONTIN) 300 MG capsule, Take 1 capsule (300 mg total) by mouth 2 (two) times daily., Disp: , Rfl: ??? lidocaine 4 % patch, Place 2 patches onto the skin daily., Disp: , Rfl: ??? methocarbamol (ROBAXIN) 500 MG tablet, Take 2 tablets (1,000 mg total) by mouth 4 (four) times daily., Disp: , Rfl: ??? oxyCODONE immediate release (ROXICODONE) 5 MG immediate release tablet, Take 1 tablet (5 mg total) by mouth., Disp: , Rfl: ??? polyethylene glycol (GLYCOLAX) 17 GM/SCOOP powder, Take 17 g by mouth daily., Disp: , Rfl: ??? rOPINIRole (REQUIP) 0.5 MG tablet, Take 1 tablet (0.5 mg total) by mouth 3 (three) times daily., Disp: , Rfl: ??? SANTYL ointment, , Disp: , Rfl: ??? senna-docusate (SENOKOT-S) 8.6-50 MG tablet, Take 1 tablet by mouth 2 (two) times daily., Disp:, Rfl: ??? traZODone (DESYREL) 50 MG tablet, Take 1 tablet (50 mg total) by mouth daily., Disp: , Rfl: Allergies: Review of patient's allergies indicates: No Known Allergies Medical History: History reviewed. No pertinent past medical history. Surgical History: History reviewed. No pertinent surgical history. Social History: Social History Tobacco Use ??? Smoking status: Unknown Family History: No family history on file. PE: Physical Exam Vitals and nursing note reviewed. Constitutional: General: She is not in acute distress. HENT: Head: Normocephalic and atraumatic. Nose: Nose normal. Mouth/Throat: Mouth: Mucous membranes are moist. Eyes: General: No scleral icterus. Conjunctiva/sclera: Conjunctivae normal. Pupils: Pupils are equal, round, and reactive to light. Neck: Vascular: No carotid bruit. Cardiovascular: Rate and Rhythm: Normal rate and regular rhythm. Pulses: Normal pulses. Pulmonary: Effort: Pulmonary effort is normal. Breath sounds: No wheezing or rales. Abdominal: General: Abdomen is flat. There is no distension. Musculoskeletal: General: No swelling. Normal range of [...] Mood normal. Behavior: Behavior normal. Filed Vitals: 02/02/24 0944 BP: 106/56 Pulse: 63 Resp: 18 Temp: 98 ??F (36.7 ??C) TempSrc: Skin Probe SpO2: 94% Weight: 74.8 kg (165 lb) There is no height or weight on file to calculate BMI. Diagnoses/Impression: 1. Closed fracture of shaft of left tibia, unspecified fracture morphology, initial encounter 2. Weakness of both arms 3. Pressure injury of sacral region, stage 4 (CMS/HCC HHS/HCC) 4. Pressure injury of right hip, stage 4 (CMS/HCC HHS/HCC) Recommendations and Plan: Patient Instructions I have reviewed her chart and have examined the patient and will continue wound care, she has declined wound care out side the hospital and will follow her cbc,c-reactive protein, esr renal,electrolytes and lipids PCP: CHAVO CASTAÑEDA MD 03/15/2024 [employer] documented in this encounter Plan of Treatment Not on file documented as of this encounter Visit Diagnoses Diagnosis Closed fracture of shaft of left tibia, unspecified fracture morphology, initial encounter- Primary Weakness of both arms Other musculoskeletal symptoms referable to limbs Pressure injury of sacral region, stage 4 (CMS/HCC HHS/HCC) Pressure injury of right hip, stage 4 (CMS/HCC HHS/HCC) documented in this encounter Care Teams Planning And Analysis Manager Relationship Specialty Start Date End Date Chavo Castañ[place] [address] [place] [address] PCP - General FAMILY PRACTICE 01/11/24 documented as of this encounter
--- OUTSIDE RECORDS SUMMARY | 2024-04-02 06:28 | XMS_ITS | Encounter Summary ---
Author Organization [facility] Address [address] [place] [address]. [place] [id number] [place], [place] [id number] Care Team Providers Care Unindentured Apprentice Name Role Phone Chavo Castañeda MD Primary Care Provider [phone] Reason for Referral * Imaging (Routine) - Authorized Specialty Diagnoses / Procedures Referred By Clovis cole Referred To Contact RADIOLOGY Diagnoses Thyroid nodule Procedures [place] Chavo Castañeda [place] [address] [place] [address] Phone: tel: fax: Referral ID Status Reason Start Date Expiration Date V isits Requested Visits Authorized [id number] Authorized 01/19/2024 01/18/2025 1 1 Encounter Details Date Type Department Care Team (Late st Contact Info) Description 01/19/2024 Orders Only [facility] Medical [facility] Family & Internal Medicine [address] [phone] Chavo Castañ[place] [address] [place] [address] Social History Tobacco Use Types Packs/Day Years Used Date Smoking Tobacco: Unknown Comments Unknown Sex and Gender Information Value Date Recorded Sex Assigned at Not on file Legal Sex Female 2:42 PM CDT Gender Identity Not on file Sexual Orientation Not on file documented as of this encounter Plan of Treatment Scheduled Orders Name Type Priority Associated Diagnoses Orde r Schedule US THYROID Ultrasound Routine Thyroid nodule Expected: 01/19/2024, Expires: 01/18/2025 documented as of this encounter Visit Diagnoses Diagnosis Thyroid nodule- Primary Nontoxic uninodular goiter documented in this encounter Care Teams Unindentured Apprentice Relationship Specialty Start Date End Date Chavo Castañeda [place] [address] [place] [address] PCP - General FAMILY PRACTICE 01/11/24 documented as of this encounter
--- OUTSIDE RECORDS SUMMARY | 2024-04-02 06:28 | XMS_ITS | Encounter Summary ---
Author Organization [facility] Address [address] [place] [address]. [place], [place] [id number] [place], [place] [id number] Care Team Providers Care Property Management Supervisor Name Role Phone Chavo Castañeda MD Primary Care Provider [phone] Reason for Visit * Reason Comments Intermediate New admit Encounter Details Date Type Department Care Team (Late st Contact Info) Description 01/12/2024 1:20 PM CDT Intermediate [facility] Medical Group Family & Internal Medicine [address] [phone] Chavo Castañeda MD [address] [place] [address] Intermediate (New admit) Social History Tobacco Use Types Packs/Day Years [...] Sign Reading Time Taken Comments Blood Pressure 135/72 01/12/2024 1:07 PM CDT Pulse 76 01/12/2024 1:07 PM CDT Temperature 36.6 ??C (97.8 ??F) 01/12/2024 1:07 PM CD T Respiratory Rate 16 01/12/2024 1:07 PM CDT Oxygen Saturation 95% 01/12/2024 1:07 PM CDT Inhaled Oxygen Concentration - - Weight 74.8 kg (165 lb) 01/12/2024 1:07 PM CDT Height - - Body Mass Index - - documented in this encounter Patient Instructions * Patient Instructions* Chavo Castañeda MD - 01/12/2024 1:20 PM CDT I have examined the patient and reviewed her chart and will admit her to the floor with her currentmedications unchanged will continue wound care and refer her to Dr Hair. Will follow her cbc,renal function,electrolytes, esr and c- reactive protein documented in this encounter Progress Notes * Chavo Castañeda MD - 01/12/2024 1:20 PM CDT Images from the original note were not included. Office Progress Note Reason for Visit: Intermediate (New admit) History of Present Illness: HPI Pt with a history of a-fib, had a fall resulting in a closed fracture of her tibia and was admittedin the hospital and had a pinning. She left AMA taken to her daughters house who was not there and was immobile for over ten days then taken to a rehab facility and developed a large sacral and righthip decub now being admitted to [facility] for rehab due to deconditioning. States has pain, but no fever,chest pain, palpitations, dizziness, sob, anorexia, focal weakness or paresthesia ROS: Review of Systems Constitutional: Positive for [...] total) by mouth daily., Disp: , Rfl: cyclobenzaprine (FLEXERIL) 10 [...] 2 (two) times daily., Disp: , Rfl: Allergies: Review of [...] Mood normal. Behavior: Behavior normal. Filed Vitals: 01/12/24 1307 BP: 135/72 Pulse: 76 Resp: 16 Temp: 97.8 ??F (36.6 ??C) SpO2: 95% Weight: 74.8 kg (165 lb) There is no height or weight on file to calculate BMI. Diagnoses/Impression: 1. Closed fracture of shaft of left tibia, unspecified fracture morphology, initial encounter 2. Weakness of both arms 3. Pressure injury of sacral region, stage 4 (CMS/HCC HHS/HCC) 4. Pressure injury of right hip, stage 3 (CMS/HCC HHS/HCC) Recommendations and Plan: Patient Instructions I have examined the patient and reviewed her chart and will admit her to the floor with her currentmedications unchanged will continue wound care and refer her to Dr Hair. Will follow her cbc,renal function,electrolytes, esr and c- reactive protein PCP: CHAVO CASTAÑEDA MD 01/16/2024 documented in this encounter Plan of Treatment Not on file documented as of this encounter Visit Diagnoses Diagnosis Closed fracture of shaft of left tibia, unspecified fracture morphology, initial encounter- Primary Weakness of both arms Other musculoskeletal symptoms referable to limbs Pressure injury of sacral region, stage 4 (CMS/HCC HHS/HCC) Pressure injury of right hip, stage 3 (CMS/HCC HHS/HCC) documented in this encounter Care Teams Property Management Supervisor Relationship Specialty Start Date End Date Chavo Castañ[place] [address] [place] [address] PCP - General FAMILY PRACTICE 01/11/24 documented as of this encounter
--- OUTSIDE RECORDS SUMMARY | 2024-04-02 06:28 | XMS_ITS | Encounter Summary ---
Author Organization [facility] Address [address] [place] [address]. [place], [place] [id number] [place], [place] [id number] Care Team Providers Care Edge Sander Name Role Phone Chavo Castañeda MD Primary Care Provider [phone] Reason for Referral * (Routine) - New Request Specialty Diagnoses / Procedures Referred By Clovis cole Referred To Contact Procedures Critical Care Raji Bernal MD [address] [place] [address] Phone: tel: fax: Referral ID Status Reason Start Date Expiration Date V isits Requested Visits Authorized [id number] New Request 03/27/2024 03/27/2025 1 1 ER SWITCHBOARD OPERATOR * Imaging (Emergency) - New Request Specialty Diagnoses / Procedures Referred By Clovis cole Referred To Contact RADIOLOGY Procedures CT ABD+PEL W IV CON ONLY Raji Bernal MD [address] [place] [address] Phone: tel: fax: Referral ID Status Reason Start Date Expiration Date V isits Requested Visits Authorized [id number] New Request 03/27/2024 03/27/2025 1 1 ER SWITCHBOARD OPERATOR Reason for Visit * Reason Comments Wound Recheck Encounter Details Date Type Department Care Team (Late st Contact Info) Description 03/27/2024 10:19 AM FEEDER SWITCHBOARD OPERATOR - 03/27/2024 10:40 PM FEEDER SWITCHBOARD OPERATOR Emergency [facility] Emergency Room [id number] [place] [address] Raji Bernal MD [address] [place] [address] Wound Recheck Discharge Disposition: Transfer to Acute Care Hospital Social History Tobacco Use Types Packs/Day Years [...] Comments Blood Pressure 95/59 03/27/2024 10:30 PM FEEDER SWITCHBOARD OPERATOR Pulse 131 03/27/2024 10:30 PM FEEDER SWITCHBOARD OPERATOR Temperature 37.1 ??C (98.7 ??F) 03/27/2024 5:20 PM CS T Respiratory Rate 24 03/27/2024 10:30 PM FEEDER SWITCHBOARD OPERATOR Oxygen Saturation 100% 03/27/2024 10:30 PM FEEDER SWITCHBOARD OPERATOR Inhaled Oxygen Concentration - - Weight 73.6 kg (162 lb 4.1 oz) 03/27/2024 10:20 AM FEEDER SWITCHBOARD OPERATOR Height 162.6 cm (5' 4 ) 03/27/2024 10:20 AM FEEDER SWITCHBOARD OPERATOR Body Mass Index 27.85 03/27/2024 10:20 AM FEEDER SWITCHBOARD OPERATOR documented in this encounter Medications at Time of Discharge [...] as of this encounter Progress Notes * Latanya Arreola, PharmD - 03/27/2024 1:04 PM CST Vancomycin Pharmacy to Dose Progress Note Day 1 of therapy. Aidee Domínguez is a 78-year-old female for which pharmacy has been consulted to dose vancomycin for the treatment of Sepsis. Other antibiotics ordered include pip/tazo x1. Actual HT/WT: Height: 1.626 m (5' 4 ) Weight: 73.6 kg (162 lb 4.1 oz) BMI: Body mass index is 27.85 kg/m??. Recent labs and vitals: WBC: Lab Results Component Value Date/Time WBC 41.56 (H) 03/27/2024 10:50 AM WBC 11.75 (H) 03/23/2024 09:05 AM SCr: Lab Results Component Value Date/Time CR 0.64 03/27/2024 10:50 AM CrCl: estimated creatinine clearance is 73.5 mL/min (by C-G formula based on SCr of 0.64 mg/dL). Tmax: Temp Av.3 ??F (39.1 ??C) Min: 102.3 ??F (39.1 ??C) Max: 102.3 ??F (39.1 ??C) Vancomycin: No results found for: VANCR Pertinent Cultures: Date Drawn Site Organism Pertinent Sensitivity 03/27 Back wound In process 03/27 Blood In process 03/27 Urine In process Plan: Start vancomycin 1500 mg IV every 18 hours. This is predicted to result in an estimated trough of 14.2 mcg/ml and estimated AUC of 569 mg/L.hr (goal AUC 400-600mg/L.hr). The next level is scheduled 03/29 with AM labs. Pharmacy will follow cultures, clinical status, levels, and adjust as clinically appropriate. Thank you for the consult. LATANYA RAREOLA PharmD 03/27/2024 1:04 PM ER SWITCHBOARD OPERATOR documented in this encounter ED Notes * Salima Mendez RN - 03/27/2024 8:42 PM CST Updated ETA for [facility] is one hour from now. Boom from [facility] states that crew was dispatched out to a 911 call. ER SWITCHBOARD OPERATOR * Cesia Mathews RN - 03/27/2024 5:45 PM CST Call to patients alirio Rodriguez per request to update on patient plan to transfer and room number [facility]. No further questions at this time. [phone] ER SWITCHBOARD OPERATOR * Summer Lim RN - 03/27/2024 5:37 PM CST [facility] called and they are unable to take the transfer at this time. ER SWITCHBOARD OPERATOR * Summer Lim RN - 03/27/2024 5:37 PM CST Call to [facility] for patient transport, spoke with Bill. ETA is 2-3 hours, if sooner, he will giveus a call. ER SWITCHBOARD OPERATOR * Summer Lim RN - 03/27/2024 5:33 PM CST [facility] called at this time, will page it out at this time. ER SWITCHBOARD OPERATOR * Cesia Mathews RN - 03/27/2024 5:32 PM CST Report called to receiving TYLER Turner at [facility] for patient going into room 1721. All questions answered at this time, will call back with ETA. [phone] ER SWITCHBOARD OPERATOR * Cesia Mathews RN - 03/27/2024 3:12 PM CST Call received from house moving supervisor Jose A at [facility], no bed assignment at this time. Will call back when ICU bed is available. ER SWITCHBOARD OPERATOR * Cesia Mathews RN - 03/27/2024 1:25 PM CST ED provider at bedside speaking with patient and family regarding plan of care. ER SWITCHBOARD OPERATOR * Cesia Mathews RN - 03/27/2024 11:10 AM CST EMS Lactated ringers 1,000 ml bolus completed at this time. ED provider notified. ER SWITCHBOARD OPERATOR * Cesia Mathews RN - 03/27/2024 10:41 AM CST 78 year old female in per EMS from [facility] with complaints of AMS and wound. Patient has wound present prior to arrival, patient warm to touch and EMS states they are unsure what her baseline mentation is staff at [facility] stated to EMS this was not her normal . Patient arrives with collado in place. VS per EMS 142 HR sinus tach on monitor 16 resp 20 G placed en route with 100 cc LR administered per EMS en route ER SWITCHBOARD OPERATOR * Raji Bernal MD - 03/27/2024 10:29 AM CSTAssociated Order(s): Critical Care Summary: ED NOTE Images from the original note were not included. Chief Complaint Chief Complaint Patient presents with Wound Recheck History of Present Illness Patient is a 78-year-old female reportedly negative past medical history who presents emergency department with altered mental status. Patient was at [facility]. She was sent here due to altered mental status and concern for sepsis. When I talk to patient she reports that her mouth feels very dry. She denies any pain. She tells me that the year is 19 and then cannot complete the year after that. I suspect the history is limited due to altered mental status. EMS is well gives us a very limitedhistory and is only able to tell us that patient is sent in for being altered and tachycardic with an elevated glucose. Medical History ALLERGIES: Review of patient's allergies indicates: Allergen Reactions Melatonin Unknown MEDICATIONS: Prior to Admission medications Medication Sig Start Date End Date Taking? Authorizing Provider Acetaminophen 500 MG Cap Take 1,000 mg by mouth every 6 (six) hours. 09/29/23 Default History Genericprovider aspirin 81 MG chewable tablet Chew 1 tablet (81 mg total) by mouth daily. 09/29/23 Default History Genericprovider calcium carbonate-vitamin D (OYSTER SHELL CALCIUM W/D) 500-5 MG-MCG Tab tablet Take 1 tablet by mouth 2 (two) times daily. Default History Genericprovider cyclobenzaprine (FLEXERIL) 10 MG tablet Take 1 tablet (10 mg total) by mouth every 12 (twelve) hours. 11/13/23 Default History Genericprovider diazePAM (VALIUM) 5 MG tablet 11/30/23 Default History Genericprovider gabapentin (NEURONTIN) 300 MG capsule Take 1 capsule (300 mg total) by mouth 2 (two) times daily. 09/29/23 09/28/24 Default History Genericprovider lidocaine 4 % patch Place 2 patches onto the skin daily. 09/30/23 Default History Genericprovider methocarbamol (ROBAXIN) 500 MG tablet Take 2 tablets (1,000 mg total) by mouth 4 (four) times daily. 09/29/23 Default History Genericprovider oxyCODONE immediate release (ROXICODONE) 5 MG immediate release tablet Take 1 tablet (5 mg total) by mouth. 09/29/23 Default History Genericprovider polyethylene glycol (GLYCOLAX) 17 GM/SCOOP powder Take 17 g by mouth daily. 09/29/23 Default HistoryGenericprovider rOPINIRole (REQUIP) 0.5 MG tablet Take 1 tablet (0.5 mg total) by mouth 3 (three) times daily. 11/23/23 11/22/24 Default History Genericprovider SANTYL ointment 11/12/23 Default History Genericprovider senna-docusate (SENOKOT-S) 8.6-50 MG tablet Take 1 tablet by mouth 2 (two) times daily. 09/29/23 Default History Genericprovider traZODone (DESYREL) 50 MG tablet Take 1 tablet (50 mg total) by mouth daily. 09/29/23 Default History Genericprovider PAST MEDICAL HISTORY: Past Medical History: Diagnosis Date A-fib (CMS/HCC HHS/HCC) Encephalopathy Failure to thrive in adult Rhabdomyolysis TIA (transient ischemic attack) PAST SURGICAL HISTORY: History reviewed. No pertinent surgical history. FAMILY HISTORY: No family history on file. SOCIAL HISTORY: Social History Tobacco Use Smoking status: Unknown Review of Systems Review of Systems Reason unable to perform ROS: altered. Physical Exam Filed Vitals: 03/27/24 1630 03/27/24 1710 03/27/24 1720 03/27/24 1722 BP: 95/54 97/52 99/61 Pulse: (!) 130 (!) 124 (!) 142 (!) 128 Resp: 23 24 27 27 Temp: 98.7 ??F (37.1 ??C) TempSrc: SpO2: 98% 100% 98% 100% Weight: Height: Physical Exam Constitutional: General: She is not in acute distress. Comments: Very dry oral mucous membranes pale HENT: Head: Normocephalic. Nose: Nose normal. Mouth/Throat: Mouth: Mucous membranes are moist. Pharynx: Oropharynx is clear. Eyes: Conjunctiva/sclera: Conjunctivae normal. Pupils: Pupils are equal, round, and reactive to light. Cardiovascular: Rate and Rhythm: Regular rhythm. Tachycardia present. Heart sounds: No murmur heard. No gallop. Pulmonary: Effort: Pulmonary effort is normal. No respiratory distress. Breath sounds: No wheezing or rales. Abdominal: General: There is no distension. Tenderness: There is no abdominal tenderness. There is no guarding. Genitourinary: Comments: Collado catheter in place Patient has a large decubitus ulcer that has purulent discharge Musculoskeletal: General: No swelling. Cervical back: Neck supple. Skin: General: Skin is warm and dry. Capillary Refill: Capillary refill takes less than 2 seconds. Neurological: Mental Status: Mental status is at baseline. She is disoriented. Psychiatric: Mood and Affect: Mood normal. Please note pooling of fluid Diagnostic Studies / Procedures ELECTROCARDIOGRAMS: Results for orders placed or performed during the hospital encounter of 03/27/24 ECG 12 lead Narrative [facility] Date: 2024-03-27 Pat Name: AIDEE DOMÍNGUEZ Department: Room: [place] [address] Gender: Female Facilities Engineer: : [id number] Requested By: RAJI BERNAL Order Number: [id number] Reading MD: Chavo Castañeda Measurements Intervals [place] Rate: 154 P: NC: 0 QRS: 52 QRSD: 82 T: 53 QT: 250 QTc: 400 Interpretive Statements ATRIAL FIBRILLATION WITH RAPID VENTRICULAR RESPONSE +++ CRITICAL TEST RESULT +++ No previous ECG available for comparison ER SWITCHBOARD OPERATOR EKG obtained at 1047. Rate 154. Rhythm atrial fibrillation with rapid ventricular rate. [place] normal. Intervals QRS 82. QTc 337. There are no obvious ischemic changes LABORATORY STUDIES: Results for orders placed or performed during the hospital encounter of 03/27/24 CBC W/DIFF AUTOMATED Result Value Ref Range WBC 41.56 (H) 4.4 - 11.0 x10'3/uL RBC 3.22 (L) 4.50 - 5.10 x10'6/uL HGB 8.2 (L) 12.3 - 15.3 G/DL HCT 26.1 (L) 35.9 - 44.6 % MCV 81.1 80.0 - 96.0 FL MCH 25.5 25.3 - 30.9 PG MCHC 31.4 31.0 - 34.1 G/DL RDW 17.3 (H) 12.4 - 15.1 % PLT 643 (H) 151 - 353 x10'3/uL MPV 9.0 (L) 9.6 - 12.0 FL RBC MORPHOLOGY NORMAL PLT MORPH. NORMAL WBC MORPHOLOGY NORMAL LYMPHOCYTES % 3.5 (L) 15.8 - 45.0 % NEUTROPHILS % 88.6 (H) 42.1 - 71.9 % MONOCYTES % 4.8 (L) 5.7 - 12.5 % EOSINOPHILS 0.1 0.0 - 5.6 % BASOPHILS 0.2 0.0 - 1.3 % ABS. NEUTROPHILS 36.82 (H) 1.40 - 6.00 x10'3/uL IMMATURE GRANS % 2.8 (H) 0.0 - 0.5 % ABS. LYMPHOCYTES 1.44 0.80 - 4.70 x10'3/uL COMPREHENSIVE METABOLIC PANEL Result Value Ref Range GLUCOSE 97 70 - 99 MG/DL BUN 10 7 - 18 MG/DL CREATININE S/P/B 0.64 0.55 - 1.02 MG/DL SODIUM S/P/B 130 (L) 136 - 145 MMOL/L POTASSIUM S/P/B 3.6 3.5 - 5.1 MMOL/L CHLORIDE S/P/B 96 (L) 100 - 108 MMOL/L CO2 28.4 21 - 32 MMOL/L CALCIUM S/P/B 7.9 (L) 8.5 - 10.1 MG/DL BILIRUBIN TOTAL S/P/B 0.7 0.2 - 1.2 MG/DL TOTAL PROTEIN S/P/B 5.6 (L) 6.4 - 8.2 G/DL ALBUMIN S/P/B 1.2 (L) 3.4 - 5.0 G/DL AST 21 15 - 37 U/L ALT 11 (L) 14 - 55 U/L ALKALINE PHOSPHATASE S/P/B 93 50 - 136 U/L ANION GAP 5.6 5 - 15 MMOL/L BUN CREATININE RATIO 15.6 6 - 26 A/G RATIO 0.3 (L) 1.0 - 2.0 RATIO GFR ESTIMATE >90 >90 ML/MIN/1.73 M2 TROPONIN, QUANT Result Value Ref Range TROPONIN I HIGH SENSITIVITY 7 0 - 50 ng/L LIPASE Result Value Ref Range LIPASE 7 (L) 16 - 77 UNITS/L LACTIC ACID W REFLEX (SEPSIS) Result Value Ref Range LACTIC ACID VENOUS 1.8 0.4 - 2.0 MMOL/L URINALYSIS, AUTO, COMPLETE Result Value Ref Range COLOR (U) YELLOW TRANSPARENCY CLEAR SPECIFIC GRAVITY (U) <1.005 1.000 - 1.030 U PH 7.0 5.0 - 9.0 LEUKOCYTES (U) 3+ (A) NEGATIVE NITRITES NEGATIVE NEGATIVE PROTEIN RANDOM (U) TRACE (A) NEGATIVE GLUCOSE (U) NEGATIVE NEGATIVE KETONES MG/DL (U) TRACE (A) NEGATIVE BILIRUBIN (U) NEGATIVE NEGATIVE BLOOD (U) TRACE (A) NEGATIVE WBC/HPF 10-25 0 - 5 /HPF RBC/HPF 0-5 0 - 5 /HPF EPI/HPF NONE SEEN /HPF BACTERIA (U) RARE /HPF IMAGING STUDIES CT ABD+PEL W IV CON ONLY Final Result by User, [id number] (03/27 1253) [facility] [address] [place] [address] Examination: CT ABD+PEL W CON Exam time: [...] which may represent third spacing of fluid. IMPRESSION: 1) Large decubitus ulcer [...] By: Jagdish Durant MD, 03/27/2024 12:38 PM XR CHEST PORTABLE Final Result by User, [email or web address] (03/27 3191) [facility] [address] [place] [address] Examination: X-ray chest, 1 view Exam time: 03/27/2024 Clinical history: Sepsis. Comparison: None available Technique: Single frontal upright view of the chest obtained. FINDINGS: No parenchymal consolidation. Blunting of left costophrenic angle. No discrete pneumothorax or large pleural effusion. Possible tortuous ectatic aorta. Degenerative changes shoulders. Spondylosis. Spinal fusion. IMPRESSION: 1. Possible small left pleural effusion. Ordered By: RAJI BERNAL Interpreted By: Carloz Aguillon MD, 03/27/2024 11:03 AM Critical Care Performed by: Raji Bernal MD Authorized by: Raji Bernal MD Critical care provider statement: Critical care time (minutes): 55 Critical care was necessary to treat or prevent imminent or life-threatening deterioration of the following conditions: Cardiac failure, sepsis and dehydration Critical care was time spent personally by me on the following activities: Blood draw for specimens, development of treatment plan with patient or surrogate, discussions with consultants, evaluation of patient's response to treatment, examination of patient, ordering and performing treatments and interventions, ordering and review of radiographic studies and re-evaluation of patient's condition I assumed direction of critical care for this patient from another provider in my specialty: no Care discussed with: accepting provider at another facility ED Course / Medical Decision Making Ddx: Severe sepsis, sepsis, soft tissue infection, necrotizing fasciitis, osteomyelitis, renal failure, liver failure, Patient is a 78-year-old female reportedly negative past medical history who presents emergency department with altered mental status. On arrival vitals were remarkable for a heart rate of 42. Additionally patient's temperature is 102.5 ??F. On exam patient has a very large sacral decubitus ulcer that has purulent drainage. See photo above. Above differentials were considered. Labs were obtained.Patient's white count was 40. Surprisingly renal function was normal. Patient's troponin was negative. Lactic acid was negative. CT scan is showing large decubitus ulcer with underlying soft tissue infection and going to the presacral space. Additionally there is destruction and osteomyelitis of the distal sacrum. Initially patient was given 3 L of crystalloid. Blood culture was obtained. A second blood culture was not done because of blood culture shortages. Lactic acid was negative. Patient was started on vancomycin and Zosyn. On sepsis reevaluation patient's heart rate has come down to the 130s. Her bloodpressure continues to be in the 90s over 60s. She does not need pressors yet. A 4th L was given of crystalloid. ED Course as of 03/27/241737 [place] Mar 27, [address] Funez accepts to [facility] [FUENTES] ED Course User Index [FUENTES] Raji Bernal MD Clinical Impression Sacral decubitus ulcer (Primary) Infected wound Tachycardia Fever Disposition: Transfer to Another Facility Raji Bernal MD 03/27/241737 ER SWITCHBOARD OPERATOR documented in this encounter Plan of Treatment Not on file documented as of this encounter Procedures Procedure Name Priority Date/Time Associated Diagnosis Comments CT ABD+PEL W CON STAT 03/27/2024 12:2 5 PM FEEDER SWITCHBOARD OPERATOR URINE BACTERIA CULTURE STAT 11:57 AM FEEDER SWITCHBOARD OPERATOR URINALYSIS, AUTO, COMPLETE STAT 03/27/2024 11:57 AM FEEDER SWITCHBOARD OPERATOR XR CHEST PORTABLE STAT 03/27/2024 10: 55 AM FEEDER SWITCHBOARD OPERATOR LACTIC ACID W REFLEX (SEPSIS) STAT 03/27/2024 10:50 AM FEEDER SWITCHBOARD OPERATOR COMPREHENSIVE METABOLIC PANEL STAT 03/27/2024 10:50 AM FEEDER SWITCHBOARD OPERATOR CULTURE, BACTERIA, BLOOD STAT 03/27/2024 10:50 AM FEEDER SWITCHBOARD OPERATOR CBC W/DIFF AUTOMATED STAT 03/27/2024 10:50 AM FEEDER SWITCHBOARD OPERATOR TROPONIN, QUANT STAT 03/27/2024 10:50 AM FEEDER SWITCHBOARD OPERATOR LIPASE STAT 03/27/2024 10:50 AM FEEDER SWITCHBOARD OPERATOR ECG 12-LEAD Routine 03/27/2024 10:47 AM FEEDER SWITCHBOARD OPERATOR HC SMEAR GRAM/GIEMSA STAT 03/27/2024 10:40 AM FEEDER SWITCHBOARD OPERATOR CRITICAL CARE Routine 03/27/2024 10:29 AM FEEDER SWITCHBOARD OPERATOR documented in this encounter Results * CT ABD+PEL W IV CON ONLY (03/27/2024 12:25 PM FEEDER SWITCHBOARD OPERATOR) Anatomical Region Laterality Modality Abdomen Computed Tomogra phy 03/27/2024 12:3 8 PM FEEDER SWITCHBOARD OPERATOR Impressions 03/27/2024 12:50 PM FEEDER SWITCHBOARD OPERATOR IMPRESSION: 1) Large decubitus ulcer with underlying [...] 03/27/2024 12:38 PM Narrative 03/27/2024 12:50 PM FEEDER SWITCHBOARD OPERATOR [facility] [address] [place] [address] Examination: CT ABD+PEL W CON Exam time: [...] Procedure Note Jagdish Durant MD - 03/27/2024 [facility] [address] [place] [address] Examination: CT ABD+PEL W CON Exam time: [...] * URINE BACTERIA CULTURE (03/27/2024 11:57 AM FEEDER SWITCHBOARD OPERATOR) SPEC DESCRIPTION URINE CLEAN CATCH 03/27/2024 11:58 AM FEEDER SWITCHBOARD OPERATOR [facility] SPECIAL REQUESTS NO SPECIAL REQUEST 03/27/2024 11:58 AM FEEDER SWITCHBOARD OPERATOR [facility] CULTURE RESULT MULTIPLE ORGANISMS PRESENT, PROBABLE CONTAMINATION . SUGGEST REPEAT CULTURE. 03/29/2024 9:32 AM FEEDER SWITCHBOARD OPERATOR [facility] URINE SPECIMEN OBTAINED BY CLEAN CATCH PROCEDURE / Unknown 03/27/2024 11:57 AM FEEDER SWITCHBOARD OPERATOR 03/27/2024 12:02 PM FEEDER SWITCHBOARD OPERATOR Raji Bernal MD MICROBIOLOGY - GENERAL ORDERABLES Final Result [facility] [address] [place] [address], [place] [phone] [facility] [address] [place] [address], [place] [phone] * (ABNORMAL) URINALYSIS, AUTO, COMPLETE (03/27/2024 11:57 AM FEEDER SWITCHBOARD OPERATOR) COLOR (U) YELLOW 03/27/2024 12:11 PM [facility] TRANSPARENCY CLEAR 03/27/2024 12:11 PM [facility] SPECIFIC GRAVITY (U) <1.005 1.000 - 1.030 03/27/2024 12:11 PM [facility] U PH 7.0 5.0 - 9.0 03/27/2024 12:11 PM [facility] LEUKOCYTES (U) 3+(A) NEGATIVE 03/27/2024 12:11 PM [facility] NITRITES NEGATIVE NEGATIVE 03/27/2024 12:11 PM [facility] PROTEIN RANDOM (U) TRACE(A) NEGATIVE 03/27/2024 12:11 PM [facility] GLUCOSE (U) NEGATIVE NEGATIVE 03/27/2024 12:11 PM [facility] KETONES MG/DL (U) TRACE(A) NEGATIVE 03/27/2024 12:11 PM FEEDER SWITCHBOARD OPERATOR [facility] BILIRUBIN (U) NEGATIVE NEGATIVE 03/27/2024 12:11 PM FEEDER SWITCHBOARD OPERATOR [facility] BLOOD (U) TRACE(A) NEGATIVE 03/27/2024 12:11 PM FEEDER SWITCHBOARD OPERATOR [facility] WBC/HPF 10-25 0 - 5 /HPF 03/27/2024 12:11 PM FEEDER SWITCHBOARD OPERATOR [facility] RBC/HPF 0-5 0 - 5 /HPF 03/27/2024 12:11 PM FEEDER SWITCHBOARD OPERATOR [facility] EPI/HPF NONE SEEN /HPF 03/27/2024 12:11 PM FEEDER SWITCHBOARD OPERATOR [facility] BACTERIA (U) RARE /HPF 03/27/2024 12:11 PM [facility] URINE SPECIMEN OBTAINED BY CLEAN CATCH PROCEDURE / Unknown 03/27/2024 11:57 AM FEEDER SWITCHBOARD OPERATOR us Raji Bernal MD URINE ORDERABLES Final Result [facility] [address] [place] [address], [place] [phone] * XR CHEST PORTABLE (03/27/2024 10:55 AM FEEDER SWITCHBOARD OPERATOR) Anatomical Region Laterality Modality Chest Radiographic Kait ging 03/27/2024 11:0 3 AM FEEDER SWITCHBOARD OPERATOR Impressions 03/27/2024 11:05 AM FEEDER SWITCHBOARD OPERATOR IMPRESSION: 1. Possible small left pleural effusion. Ordered By: RAJI BERNAL Interpreted By: Carloz Aguillon MD, 03/27/2024 11:03 AM Narrative 03/27/2024 11:05 AM FEEDER SWITCHBOARD OPERATOR [facility] [address] [place] [address] Examination: X-ray chest, 1 view Exam time: 03/27/2024 Clinical history: Sepsis. Comparison: None available Technique: Single frontal upright view of the chest obtained. FINDINGS: No parenchymal consolidation. Blunting of left costophrenic angle. No discrete pneumothorax or large pleural effusion. Possible tortuous ectatic aorta. Degenerative changes shoulders. Spondylosis. Spinal fusion. Procedure Note Carloz Aguillon MD - 03/27/2024 [facility] [address] [place] [address] Examination: X-ray chest, 1 view Exam time: [...] By: Carloz Aguillon MD, 03/27/2024 11:03 AM Raji Bernal MD GENERAL IMAGING Final R esult * (ABNORMAL) BLOOD CULTURE #1 (03/27/2024 10:50 AM FEEDER SWITCHBOARD OPERATOR) SPEC DESCRIPTION BLOOD 03/27/2024 10:31 AM [facility] SPECIAL REQUESTS NO SPECIAL REQUEST 03/27/2024 10:31 AM [facility] GRAM STAIN RESULT GRAM POSITIVE COCCI RESEMBLING STREPTOCOCCUS SPECIES 03/28/2024 4:43 PM [facility] GRAM STAIN RESULT GRAM STAIN RESULTS CALLED TO AND REPEATED BACK BY JEFE LOVELACE AT 16:21 ON 03/28/2024 [facility] 03/28/2024 4:43 PM [facility] GRAM STAIN RESULT CALLED AND FAXED TO [facility] 03/28/2024 1642/DVO 03/28/2024 4:43 PM FEEDER SWITCHBOARD OPERATOR [facility] CULTURE RESULT GROWTH OF STREPTOCOCCI, BETA HEMOLYTIC GROUP A (AA) 03/30/2024 7:00 AM FEEDER SWITCHBOARD OPERATOR [facility] BLOOD SPECIMEN OBTAINED FOR BLOOD CULTURE / Unknown 03/27/2024 10:50 AM FEEDER SWITCHBOARD OPERATOR 03/27/2024 11:03 AM FEEDER SWITCHBOARD OPERATOR Narrative Organism Antibiotic Method Susceptibility Streptococci, beta hemolytic group a CEFTRIAXONE RADHA (ETEST) 0.016: Sensitive Streptococci, beta hemolytic group a PENICILLIN G RADHA (ETEST) 0.016: Sensitive Raji Bernal MD MICROBIOLOGY - GENERAL ORDERABLES Final Result Performing Organization Address City/[facility]/ZIP Co de Phone Number [facility] [address] [place] [address], [place] [phone] [facility] [address] [place] [address], [place] [phone] * LACTIC ACID W REFLEX (SEPSIS) (03/27/2024 10:50 AM FEEDER SWITCHBOARD OPERATOR) LACTIC ACID VENOUS 1.8 0.4 - 2.0 MMOL/L 03/27/2024 11:26 AM FEEDER SWITCHBOARD OPERATOR [facility] 03/27/2024 10:5 0 AM FEEDER SWITCHBOARD OPERATOR Raji Bernal MD LABORATORY Final R esult [facility] [address] [place] [address], [place] [phone] * (ABNORMAL) LIPASE (03/27/2024 10:50 AM FEEDER SWITCHBOARD OPERATOR) LIPASE 7(L) 16 - 77 UNITS/L 03/27/2024 11:21 AM FEEDER SWITCHBOARD OPERATOR [facility] 03/27/2024 10:5 0 AM FEEDER SWITCHBOARD OPERATOR Raji Bernal MD LABORATORY Final R esult Performing Organization Address [facility]/ZIP Co de Phone Number [facility] [address] [place] [address], * TROPONIN, QUANT (03/27/2024 10:50 AM FEEDER SWITCHBOARD OPERATOR) TROPONIN I HIGH SENSITIVITY 7 0 - 50 ng/L 03/27/2024 11:26 AM FEEDER SWITCHBOARD OPERATOR [facility] Comment: HIGH DOSES OF BIOTIN, TROPONIN-SPECIFIC AUTOANTIBODIES, AND ANTIBODY THERAPY CONTAINING HAMA MAY INTERFERE WITH THIS TEST RESULT. CORRELATION TO CLINICAL HISTORY AND PRESENTATION RECOMMENDED. 03/27/2024 10:5 0 AM FEEDER SWITCHBOARD OPERATOR Raji Bernal MD LABORATORY Final R esult Performing Organization Address [facility] Co de Phone Number [facility] [address] [place] [address], [place] [phone] * (ABNORMAL) COMPREHENSIVE METABOLIC PANEL (03/27/2024 10:50 AM FEEDER SWITCHBOARD OPERATOR) [facility] GLUCOSE 97 70 - 99 MG/DL 03/27/2024 11:21 AM [facility] BUN 10 7 - 18 MG/DL 03/27/2024 11:21 AM [facility] CREATININE S/P/B 0.64 0.55 - 1.02 MG/DL 03/27/2024 11:21 AM [facility] SODIUM S/P/B 130(L) 136 - 145 MMOL/L 03/27/2024 11:21 AM [facility] POTASSIUM S/P/B 3.6 3.5 - 5.1 MMOL/L 03/27/2024 11:21 AM [facility] CHLORIDE S/P/B 96(L) 100 - 108 MMOL/L 03/27/2024 11:21 AM [facility] CO2 28.4 21 - 32 MMOL/L 03/27/2024 11:21 AM [facility] CALCIUM S/P/B 7.9(L) 8.5 - 10.1 MG/DL 03/27/2024 11:21 AM [facility] BILIRUBIN TOTAL S/P/B 0.7 0.2 - 1.2 MG/DL 03/27/2024 11:21 AM [facility] TOTAL PROTEIN S/P/B 5.6(L) 6.4 - 8.2 G/DL 03/27/2024 11:21 AM [facility] ALBUMIN S/P/B 1.2(L) 3.4 - 5.0 G/DL 03/27/2024 11:21 AM [facility] AST 21 15 - 37 U/L 03/27/2024 11:21 AM [facility] ALT 11(L) 14 - 55 U/L 03/27/2024 11:21 AM [facility] ALKALINE PHOSPHATASE S/P/B 93 50 - 136 U/L 03/27/2024 11:21 AM [facility] ANION GAP 5.6 5 - 15 MMOL/L 03/27/2024 11:21 AM [facility] BUN CREATININE RATIO 15.6 6 - 26 03/27/2024 11:21 AM [facility] A/G RATIO 0.3(L) 1.0 - 2.0 RATIO 03/27/2024 11:21 AM [facility] GFR ESTIMATE >90 >90 ML/MIN/1.7 3 M2 03/27/2024 11:21 AM [facility] Comment: NOTE: eGFR is not calculated for patients <18 years of age. This is an estimated GFR calculation using the new CKD EPI creatinine equation without race and so does not require a correction factor for race. This estimated GFR should not be used for calculating drug doses. 03/27/2024 10:5 0 AM FEEDER SWITCHBOARD OPERATOR us Raji Bernal MD LABORATORY Final R esult [facility] [address] [place] [address], [place] [phone] * (ABNORMAL) CBC W/DIFF AUTOMATED (03/27/2024 10:50 AM FEEDER SWITCHBOARD OPERATOR) WBC 41.56(H) 4.4 - 11.0 x10'3/uL 03/27/2024 11:11 AM [facility] RBC 3.22(L) 4.50 - 5.10 x10'6/uL 03/27/2024 11:11 AM [facility] HGB 8.2(L) 12.3 - 15.3 G/DL 03/27/2024 11:11 AM [facility] HCT 26.1(L) 35.9 - 44.6 % 03/27/2024 11:11 AM [facility] MCV 81.1 80.0 - 96.0 FL 03/27/2024 11:11 AM [facility] MCH 25.5 25.3 - 30.9 PG 03/27/2024 11:11 AM [facility] MCHC 31.4 31.0 - 34.1 G/DL 03/27/2024 11:11 AM [facility] RDW 17.3(H) 12.4 - 15.1 % 03/27/2024 11:11 AM [facility] PLT 643(H) 151 - 353 x10'3/uL 03/27/2024 11:11 AM [facility] MPV 9.0(L) 9.6 - 12.0 FL 03/27/2024 11:11 AM [facility] RBC MORPHOLOGY NORMAL 03/27/2024 11:11 AM [facility] PLT MORPH. NORMAL 03/27/2024 11:11 AM [facility] WBC MORPHOLOGY NORMAL 03/27/2024 11:11 AM [facility] LYMPHOCYTES % 3.5(L) 15.8 - 45.0 % 03/27/2024 11:11 AM [facility] NEUTROPHILS % 88.6(H) 42.1 - 71.9 % 03/27/2024 11:11 AM [facility] MONOCYTES % 4.8(L) 5.7 - 12.5 % 03/27/2024 11:11 AM [facility] EOSINOPHILS 0.1 0.0 - 5.6 % 03/27/2024 11:11 AM [facility] BASOPHILS 0.2 0.0 - 1.3 % 03/27/2024 11:11 AM [facility] ABS. NEUTROPHILS 36.82(H) 1.40 - 6.00 x10'3/uL 03/27/2024 11:11 AM [facility] IMMATURE GRANS % 2.8(H) 0.0 - 0.5 % 03/27/2024 11:11 AM [facility] ABS. LYMPHOCYTES 1.44 0.80 - 4.70 x10'3/uL 03/27/2024 11:11 AM [facility] 03/27/2024 10:5 0 AM FEEDER SWITCHBOARD OPERATOR us Raji Bernal MD LABORATORY Final R esult [facility] [address] [place] [phone], * ECG 12 lead (03/27/2024 10:47 AM FEEDER SWITCHBOARD OPERATOR) 03/27/2024 10:4 7 AM FEEDER SWITCHBOARD OPERATOR Narrative [facility] RAD - 03/27/2024 11:30 AM FEEDER SWITCHBOARD OPERATOR ?[facility] ? Test Date: ?2024-03-27 Pat Name: ? AIDEE DOMÍNGUEZ ? Department: ?? 85 ? Room: ? TRA1 TR1 Gender: ? Female ? Facilities Engineer: ?? : ?[id number] ? Requested By: RAJI BERNAL Order Number: [id number] ? Reading MD: ?? Chavo Castañeda ? Measurements Intervals ?[place] ? Rate: ? 154 ?P: ? NC: ? 0 ?QRS: ?52 QRSD: ? 82 ? T: ?53 QT: ? 250 ? QTc: ?400 ? Interpretive Statements ATRIAL FIBRILLATION WITH RAPID VENTRICULAR RESPONSE +++ CRITICAL TEST RESULT +++ No previous ECG available for comparison ER SWITCHBOARD OPERATOR Procedure Note Chavo Castañeda MD - 03/27/2024 [facility] Test Date: 2024-03-27 Pat Name: AIDEE DOMÍNGUEZ Department: 85 Room: [place] [address] Gender: Female Facilities Engineer: : [id number] Requested By: RAJI BERNAL Order Number: [id number] Dell MD: Chavo Castañeda Measurements Intervals [place] Rate: 154 P: NC: 0 QRS: 52 QRSD: 82 T: 53 QT: 250 QTc: 400 Interpretive Statements ATRIAL FIBRILLATION WITH RAPID VENTRICULAR RESPONSE +++ CRITICAL TEST RESULT +++ No previous ECG available for comparison ER SWITCHBOARD OPERATOR us Raji Bernal MD ECG ORDERABLES Final R esult [facility] * (ABNORMAL) CULTURE, WOUND, W/GRAM STAIN (03/27/2024 10:40 AM FEEDER SWITCHBOARD OPERATOR) SPEC DESCRIPTION BACK 03/27/2024 11:04 AM [facility] SPECIAL REQUESTS NO SPECIAL REQUEST 03/27/2024 11:04 AM [facility] GRAM STAIN RESULT NO WHITE BLOOD CELLS SEEN 03/29/2024 9:52 AM FEEDER SWITCHBOARD OPERATOR [facility] GRAM STAIN RESULT MANY RED BLOOD CELLS SEEN 03/29/2024 9:52 AM [facility] GRAM STAIN RESULT MODERATE GRAM POSITIVE COCCI 03/29/2024 9:52 AM [facility] CULTURE RESULT SPARSE GROWTH OF PROTEUS MIRABILIS (A) 2024 7:41 AM FEEDER SWITCHBOARD OPERATOR [facility] CULTURE RESULT LIGHT GROWTH OF STREPTOCOCCI, BETA HEMOLYTIC GROUP A SUSCEPTIBILTY NOT ROUTINELY PERFORMED. SAVING ISOLATE FOR 5 DAYS. CONTACT MICROBIOLOGY DEPARTMENT IF FURTHER WORKUP IS INDICATED. (A) 2024 7:41 AM [facility] CULTURE RESULT SPARSE GROWTH OF KLEBSIELLA PNEUMONIAE PROBABLE EXTENDED SPECTRUM BETA LACTAMASE ASBESTOS WORKER (A) 2024 7:41 AM [facility] SPECIMEN FROM TRUNK / Unknown 03/27/2024 10:40 AM FEEDER SWITCHBOARD OPERATOR 03/27/2024 11:29 AM FEEDER SWITCHBOARD OPERATOR Narrative Organism Antibiotic Method Susceptibility Proteus mirabilis [...] GENERAL ORDERABLES Final Result Performing Organization Address City/State/[facility] de Phone Number [facility] [address] [place] [address], [place] [phone] [facility] [address] [place] [address], [place] [phone] * Critical Care (03/27/2024 10:29 AM FEEDER SWITCHBOARD OPERATOR) Raji Bella MD - 03/27/2024 10:29 AM FEEDER SWITCHBOARD OPERATOR Raji Bernal MD ? 03/27/2024 ??5:38 PM [...] with: accepting provider at another facility ?? us Raji Bernal MD PROCEDURE/MINOR SURGICA L ORDERABLES Final Result documented in this encounter Visit Diagnoses Diagnosis Sacral decubitus ulcer- Primary Pressure ulcer, lower back Infected wound Posttraumatic wound infection not elsewhere classified Tachycardia Tachycardia, unspecified Fever Fever, unspecified documented in this encounter Administered Medications Inactive Administered Medications - up to 3 most recent administrations Medication Order MAR Action Action Date Dose Rate Site acetaminophen (TYLENOL) suppository 650 mg 650 mg, Rectal, Once, 1 dose, On 03/27/24 at 1045, Maximum dose of acetaminophen is 4000 mg from all sources in 24 hours. Given 03/27/2024 10:59 AM FEEDER SWITCHBOARD OPERATOR 650 mg iopamidol (ISOVUE-370) 76 % injection 75 mL 75 mL, Intravenous, IMG once as needed, Contrast, 1 dose, Starting on 03/27/24 at 1225, Until 03/27/24 at 1225 Given 03/27/2024 12:25 PM FEEDER SWITCHBOARD OPERATOR 75 mLs Left Arm lactated ringers bolus infusion 1,000 mL 1,000 mL, Intravenous, Administer over 15 Minutes, Once, 1 dose, On 03/27/24 at 1045 New Bag 03/27/2024 10:58 AM FEEDER SWITCHBOARD OPERATOR 1,000 mLs 4000 mL/hr lactated ringers bolus infusion 1,000 mL 1,000 mL, Intravenous, Administer over 15 Minutes, Once, 1 dose, On 03/27/24 at 1730 New Bag 03/27/2024 5:50 PM FEEDER SWITCHBOARD OPERATOR 1,000 mLs 4000 mL/hr LORazepam (ATIVAN) injection 0.5 mg 0.5 mg, Intravenous, Once, 1 dose, On 03/27/24 at 1415, For IV use, further dilute with an equal volume of saline. Do not exceed a rate of 2 mg/min. Given 03/27/2024 2:19 PM FEEDER SWITCHBOARD OPERATOR 0.5 mg piperacillin-tazobactam (ZOSYN) 4.5 g in sodium chloride 0.9 % 100 mL IVPB 4.5 g, Intravenous, Administer over 30 Minutes, Once, 1 dose, On Thu03/27/24 at 1100 New Bag 03/27/2024 11:13 AM FEEDER SWITCHBOARD OPERATOR 4.5 g 200 mL/hr sodium chloride 0.9% bolus infusion 1,000 mL 1,000 mL, Intravenous, Administer over 60 Minutes, Once, 1 dose, On Thu03/27/24 at 1215 New Bag 03/27/2024 12:36 PM FEEDER SWITCHBOARD OPERATOR 1,000 mLs 1000 mL/hr vancomycin (VANCOCIN) 1,500 mg in sodium chloride 0.9 % 500 mL IVPB 1,500 mg, Intravenous, at 257.5 mL/hr, Once, 1 dose, On Thu03/27/24 at 1230 New Bag 03/27/2024 12:35 PM FEEDER SWITCHBOARD OPERATOR 1,500 mg 257.5 mL/hr vancomycin (VANCOCIN) 1,500 mg in sodium chloride 0.9 % 500 mL IVPB 1,500 mg, Intravenous, at 257.5 mL/hr, Every 18 hours, First dose on Thu03/28/24 at 0800, Until Discontinued vancomycin pharmacy to dose placeholder Intravenous, See admin instructions, Starting on Thu03/27/24 at 1152, Until Thu03/28/24 at 0040, Vancomycin Placeholder Only: Do NOT document administrations on this placeholder.(Use medication on JUN to document administrations or contact pharmacy if medication order not entered.) documented in this encounter Active and Recently Administered Medications Times are shown in FEEDER SWITCHBOARD OPERATOR. Scheduled Medication Order 03/25/2024 03/26/2024 03/27/2024 acetaminophen (TYLENOL) suppository 650 mg (COMPLETED) 650 mg, Rectal, Once, 1 dose, On Thu03/27/24 at 1045, Maximum dose of acetaminophen is 4000 mg from all sources in 24 hours. 1059 (Given - Provid er: Cesia Mathews RN) lactated ringers bolus infusion 1,000 mL (COMPLETED) 1,000 mL, Intravenous, Administer over 15 Minutes, Once, 1 dose, On Thu03/27/24 at 1045 1058 (New Bag - Prov ider: Cesia Mathews RN)1155 (Infusion Stop Time - Provider: Cesia Mathews RN) lactated ringers bolus infusion 1,000 mL (COMPLETED) 1,000 mL, Intravenous, Administer over 15 Minutes, Once, 1 dose, On Thu03/27/24 at 1730 1750 (New Bag - Prov ider: Cesia Mathews RN)1942 (Infusion Stop Time - Provider: Salima Mendez RN) LORazepam (ATIVAN) injection 0.5 mg (COMPLETED) 0.5 mg, Intravenous, Once, 1 dose, On Thu03/27/24 at 1415, For IV use, further dilute with an equal volume of saline. Do not exceed a rate of 2 mg/min. 1419 (Given - Provid er: Cesia Mathews RN) piperacillin-tazobactam (ZOSYN) 4.5 g in sodium chloride 0.9 % 100 mL IVPB (COMPLETED) 4.5 g, Intravenous, Administer over 30 Minutes, Once, 1 dose, On Thu03/27/24 at 1100 1113 (New Bag - Prov ider: Cesia Mathews RN)1155 (Infusion Stop Time - Provider: Cesia Mathews RN) sodium chloride 0.9% bolus infusion 1,000 mL (COMPLETED) 1,000 mL, Intravenous, Administer over 60 Minutes, Once, 1 dose, On Thu03/27/24 at 1215 1236 (New Bag - Prov ider: Cesia Mathews RN)1307 (Infusion Stop Time - Provider: Cesia Mathews RN) vancomycin (VANCOCIN) 1,500 mg in sodium chloride 0.9 % 500 mL IVPB (COMPLETED) 1,500 mg, Intravenous, at 257.5 mL/hr, Once, 1 dose, On Thu03/27/24 at 1230 1235 (New Bag - Prov ider: Cesia Mathews RN)1508 (Infusion Stop Time - Provider: Cesia Mathews RN) vancomycin (VANCOCIN) 1,500 mg in sodium chloride 0.9 % 500 mL IVPB 1,500 mg, Intravenous, at 257.5 mL/hr, Every 18 hours, First dose on Thu03/28/24 at 0800, Until Discontinued vancomycin pharmacy to dose placeholder(Linked Group 1) Intravenous, See admin instructions, Starting on Thu03/27/24 at 1152, Until 03/28/24 at 0040, Vancomycin Placeholder Only: Do NOT document administrations on this placeholder.(Use medication on MAR to document administrations or contact pharmacy if medication order not entered.) PRN Medication Order 03/25/2024 03/26/2024 03/27/2024 iopamidol (ISOVUE-370) 76 % injection 75 mL (COMPLETED) 75 mL, Intravenous, IMG once as needed, Contrast, 1 dose, Starting on 03/27/24 at 1225, Until 03/27/24 at 1225 1225 (Given - Provid er: Kelsey San RTR) Linked Groups Order Group 1: Pharmacy to dose vancomycin (CANCELED) STAT, Once, On 03/27/24 at 1153, For 1 occurrence, Indications: Skin & Soft tissue infection And vancomycin pharmacy to dose placeholderJump to med Intravenous, See admin instructions, Starting on 03/27/24 at 1152, Until 03/28/24 at 0040, Vancomycin Placeholder Only: Do NOT document administrations on this placeholder.(Use medication on MAR to document administrations or contact pharmacy if medication order not entered.) documented in this encounter Care Teams Edge Sander Relationship Specialty Start Date [place] Date Chavo [place] [address] [place] [address] PCP - General FAMILY PRACTICE 01/11/24 documented as of this encounter
--- OUTSIDE RECORDS SUMMARY | 2024-04-02 06:29 | XMS_ITS | Clinical Summary ---
Author Organization [facility] Address [address] [place] [address] Care Team Providers Care Cell Installer Name Role Phone Chavo Castañeda MD Primary Care Provider [phone] Allergies No known active allergies Medications aspirin 81 mg chewable tabletIndicatio ns:prevention of thrombosis Take 1 tablet (81 mg total) by mouth daily for 14 days 4 Active acetaminophen 500 mg capsuleIndicati ons:Pain Take 2 capsules (1,000 mg total) by mouth every 6 (six) hours 4 Active gabapentin (NEURONTIN) 300 mg capsule Take 1 capsule (300 mg total) by mouth 2 (two) times a day 4 09/29/19 25 Active lidocaine (ASPERCREME) 4 % adhesive patch,medicated Place 2 patches on the skin daily 4 Active Additional Information Patient not taking.Reported on 10/16/2023 methocarbamoL (ROBAXIN) 500 mg tablet Take 2 tablets (1,000 mg total) by mouth 4 (four) times a day 4 Active oxyCODONE (ROXICODONE) 5 mg immediate release tabletIndicatio ns:Pain Take 1 tablet (5 mg total) by mouth every 4 (four) hours as needed for pain for up to 20 doses 20 tablet 4 Active polyethylene glycol (MIRALAX) 17 gram/dose bulk powderIndicatio ns:constipation Take 17 g by mouth daily 4 Active senna-docusate (PERICOLACE) 8.6-50 mgIndications:c onstipation Take 1 tablet by mouth 2 (two) times a day 4 Active traZODone (DESYREL) 50 mg tablet Take 1 tablet (50 mg total) by mouth nightly 4 Active Additional Information Patient not taking.Reported on 10/16/2023 SantyL ointment 4 Active calcium carbonate-vitam in D3 1,250mg (500mg elemental) - 5 mcg (200 units) per tablet Take 1 tablet by mouth 2 (two) times a day with meals Active cyclobenzaprine (FLEXERIL) 10 mg tablet Take 1 tablet (10 mg total) by mouth every 12 (twelve) hours 60 tablet 1 4 Active rOPINIRole (REQUIP) 0.5 mg tabletIndicatio ns:Fusion of spine of cervical region Take 1 tablet (0.5 mg total) by mouth 3 (three) times a day 90 tablet 4 11/23/19 25 Active Active Problems Problem Noted Date Diagnosed Date Closed fracture of part of tibia 10/12/2023 Electrolyte imbalance 09/19/2023 Assessment & Plan (09/26/2023 11:24 AM CDT): - 09/17: Mg 1.7, Phos 2.9, K 3.1 - Magnesium and KPhos treated - 09/17: Mg 1.7, Phos 2.2, K 3.7 - Magnesium and KPhos treated - Monitor electrolytes 09/25: Lytes stable: DC'ed daily labs Weakness of both arms 09/18/2023 Assessment & Plan (09/29/2023 12:41 PM CDT): - Pe patient, weakness started after fall. No weakness of arms prior to fall - CT c spine without injury, however spinal cord and neuroforaminal stenosis noted on CT. MRI: Severe high-grade spinal canal stenosis at C3-C4 level secondary to congenitally narrowed spinal canal, multilevel disc osteophyte complex, and ligamentum flavum thickening. Cord edema noted at the C3-C4 level - 7: Ortho Spine consulted - 09/19: OR w/ spine: posterior cervical fusion+ instrumentation from C2-7; C3-6 laminectomies, C4-5 bilateral foraminotomies -09/19 In SICU on naman for MAP augmentation 80-95 for 48h postop - 09/24: RUE US for localized swelling: (-) for DVT; (+) superficial vein thrombus - 09/25: Gervais J and upright cspine Xrs completed - 09/26: BUE motor exam stable. Cont PT/OT - 09/28: Doing well, tolerating diet and activity with well controlled pain; Gervais J in place; PMNR c/s for recs Acute pain due to trauma 09/17/2023 Assessment & Plan (09/28/2023 10:57 AM CDT): - Tylenol 1000 mg q6h - Robaxin 1000 mg qid - Oxycodone 5 mg q4h PRN -gabapentin 300 mg bid - Lidocaine patch daily Bowel regimen senna , Miralax Encounter for medication review 09/17/2023 Assessment & Plan (09/17/2023 2:31 PM CDT): - No past medical history, takes no medications at home Discharge planning issues 09/17/2023 Assessment & Plan (09/28/2023 10:59 AM CDT): 09/25: pending SNF placement. Seen by PT/OT Patient is medically stable for discharge, SW/CM updated. Discharge pending facility acceptance 09/27 Patient is medically stable for discharge, SW/CM updated. Discharge pending patient daughter to select a facility from the list of accepting facilities for disposition. Pulmonary nodule 09/17/2023 Assessment & Plan (09/17/2023 2:32 PM CDT): - CT C/A/P (09/15): Indeterminate right lower lobe pulmonary nodule with broad base along the pleura. Recommend comparison with prior imaging if available to document stability. If no prior imaging is available, recommend follow-up CT in 6-12 months. Closed fracture of shaft of left tibia, unspecified fracture morphology, initial encounter 09/16/2023 Assessment & Plan (09/17/2023 2:29 PM CDT): #Left tib fib fracture - Orthopedic consult - s/p OR 09/15 IMN - NWB LLE - Maintain SLS - PT/OT - Pain control - Bone health referral at discharge Cervical spondylosis with myelopathy 09/16/2023 Encounters Date Type Department Care Team Description 04/01/2024 Orders Only [facility] Cardiology [address] [place] [id number] Isidra Etienne NP Paroxysmal atrial fibrillation (CMS/HCC) (HCC) (Primary Dx) from Last 3 Months Surgical History Surgery Date Site/Laterality Comments CERVICAL FUSION 09/20/2023 C2-7 PCF/I- Dr. Hans Rodriguez Social History Tobacco Use Types Packs/Day Years Used Date Smoking Tobacco: Former Cigarettes Q uit: 1964 Tobacco Cessation:Counseling Given: Not Answered [facility] Utilities Answer Date Recorded In the past 12 months has th e [employer], gas, oil, or water [employer] threatened to shut off services in your home? No 09/16/2023 Humiliation, Afraid, Rape, and Kick questionnair e Answer Date Recorded Within the last year, have y ou been afraid of your partner or ex-partner? No 09/16/2023 Within the last year, have y ou been humiliated or emotionally abused in other ways by your partner or ex-partner? No Within the last year, have y ou been kicked, hit, slapped, or otherwise physically hurt by your partner or ex-partner? No 09/16/2023 Within the last year, have y ou been raped or forced to have any kind of sexual activity by your partner or ex-partner? No 09/16/2023 Social Connection and Isolat ion Panel [NHANES] Answer Date Recorded In a typical week, how many times do you talk on the phone with family, friends, or neighbors? More than three times a week 09/16/2023 How often do you get togethe r with friends or relatives? Twice a week 09/16/2023 How often do you attend chur ch or jehovah's witness services? Never 09/16/2023 Do you belong to any clubs o r organizations such as mosque groups, unions, fraternal or athletic groups, or school groups? No 09/16/2023 How often do you attend meet ings of the clubs or organizations you belong to? Never 09/16/2023 Are you , , di vorced, , never , or living with a partner? 09/16/2023 AUDIT-C Answer Date Recorded Q1: How often do you have a drink containing alc ohol? Monthly or less 09/16/2023 Q2: How many drinks containi ng alcohol do you have on a typical day when you are drinking? 1 or 2 09/16/2023 Q3: How often do you have si x or more drinks on one occasion? Never 09/16/2023 Overall Financial Resource Strain (CARDIA) Answe r Date Recorded How hard is it for you to pa y for the very basics like food, housing, medical care, and heating? Not very hard 09/16/2023 [facility] Helper of Occupat ional Health - Occupational Stress Questionnaire Answer Date Recorded Do you feel stress - tense, restless, nervous, or anxious, or unable to sleep at night because your mind is troubled all the time - these days? Not at all 09/16/2023 Exercise Vital Sign Answer Date Recorde d On average, how many days pe r week do you engage in moderate to strenuous exercise (like a brisk walk)? 2 days 09/16/2023 On average, how many minutes do you engage in exercise at this level? 20 min 09/16/2023 Hunger Vital Sign Answer Date Recorded Within the past 12 months, y ou worried that your food would run out before you got the money to buy more. Never true 09/16/19 24 Within the past 12 months, t he food you bought just didn't last and you didn't have money to get more. Never true 09/16/2023 PRAPARE - Transportation Answer Date Re corded In the past 12 months, has l ack of transportation kept you from medical appointments or from getting medications? No 08/2023 In the past 12 months, has l ack of transportation kept you from meetings, work, or from getting things needed for daily living? No 09/16/2023 Housing Stability Vital Sign Answer Gavin e Recorded In the last 12 months, was t here a time when you were not able to pay the mortgage or rent on time? No 09/16/2023 In the past 12 months, how m any times have you moved where you were living? 2 09/16/2023 At any time in the past 12 m [facility], were you homeless or living in a snf (including now)? No 09/16/2023 Personal Safety Answer Date Recorded Have you ever been in or are you currently in a harmful physical or emotional relationship or is someone making you feel afraid or unsafe? Denies 09/16/2023 Comments No Sex and Gender Information Value Date Recorded Sex Assigned at Not on file Legal Sex Female 12:52 AM CDT Gender Identity Not on file Sexual Orientation Not on file Obstetrics History Last Filed Vital Signs Vital Sign Reading Time Taken Comments Blood Pressure 121/74 09/29/2023 8:00 AM CDT Pulse 116 09/29/2023 8:00 AM CDT Temperature 36.8 ??C (98.2 ??F) 09/29/2023 8:00 AM CD T Respiratory Rate 18 09/29/2023 8:00 AM CDT Oxygen Saturation 93% 09/29/2023 8:00 AM CDT Inhaled Oxygen Concentration - - Weight 82.4 kg (181 lb 10.5 oz) 024 11:00 AM CDT Height 165.1 cm (5' 5 ) 09/23/2023 8:55 AM CDT Body Mass Index 30.23 09/23/2023 8:55 AM CDT Plan of Treatment Health Maintenance Due Date Last Done Comments Depression Screening 1945 Hepatitis C Screening 1945 Osteoporosis Screening-Bone Density Scan 1945 DTaP/Tdap/Td Vaccine (1 - Tdap) 1958 Hepatitis B Screening 1965 Zoster Vaccine (1 of 2) 1997 Pneumococcal vaccine 65+ (1 of 1 - PCV) 2012 Well Visit 65+ 2012 Influenza Vaccine (#1) 2023 Fall Risk Assessment 09/28/2024 09/29/2023 Medical Devices Implanted Type Area Arts Therapist Device Identifier Shelf Expiration Date Model / Serial / Lot Synthes Nail Im Tibial Ti Tn Advanced [id number] 04.043.430s - [id number] Implanted:Qty: 1 on 09/16/2023 by Hammad Taylor MD at [facility] Left: Tibia Synthes I 11/10/2032 04.043.430 S / / [id number] Synthes Screw Bone Locking Cannulated Femoral Threaded 5.0x36mm 04.045.336s - [id number] Implanted:Qty: 1 on 09/16/2023 by Hammad Taylor MD at [facility] Synthes I 04.045.336 S / / Synthes Screw Locking Im Nail 5mm 34mm 04.045.034 - [id number] Implanted:Qty: 2 on 09/16/2023 by Hammad Taylor MD at [facility] Synthes I 04.045.034 / / Synthes 3.5mm 440mm Elastic Nail Intramedullary Titanium Pediatric 475.935 - [id number] Implanted:Qty: 1 on 09/16/2023 by Hammad Taylor MD at [facility] Synthes I 475.935 / / Synthes Screw Locking Threaded 5.0x44mm 04.045.344s - [id number] Implanted:Qty: 2 on 09/16/2023 by Hammad Taylor MD at [facility] Synthes I 04.045.344 S / / Nuvasive Inc Screw Spine Reline C Lock Open Non-Sterile Latex Free [id number] - [id number] Implanted:Qty: 9 on 09/20/2023 by Hans Rodriguez MD at [facility] N/A: Spine Cervical Nuvasive Inc [id number] / / Globus Medical Quartex 4mm 65mm Curve Jasen Spinal Nonsterile Latex Free 1149.7565 - [id number] Implanted:Qty: 1 on 09/20/2023 by Hans Rodriguez MD at [facility] N/A: Spine Cervical [employer] 1149.7565 / / [employer] Connector Spinal Curved Quartex 4.0x70mm Titanium 1149.7570 - [id number] Implanted:Qty: 1 on 09/20/2023 by Hans Rodriguez MD at [facility] N/A: Spine Cervical [employer] 1149.7570 / / Nuvasive Inc Screw Spinal Posterior Cervical Full Thread Solid Reline 4.0x22mm Titanium [id number] - [id number] Implanted:Qty: 2 on 09/20/2023 by Hans Rodriguez MD at [facility] N/A: Spine Cervical Nuvasive Inc [id number] / / Medtronic Inc Infuse 20ga 2x1in Vial Absorbable Syringe Needle Medium Graft 5.6 [id number] - [id number] Implanted:Qty: 1 on 09/20/2023 by Hans Rodriguez MD at [facility] N/A: Spine Cervical Medtronic Inc [id number] 09/11/2024 [id number] / / [id number] Allosource Crushed Fresh Frozen Cancellous 1-4mm Graft 15ml Bone [id number] - [id number] Implanted:Qty: 1 on 09/20/2023 by Hans Rodriguez MD at [facility] N/A: Spine Cervical Allosource 10/12/2027 [id number] / / [id number] Nuvasive Inc Screw Spinal Posterior Cervical Full Thread Solid Reline C 3.5x24mm Titanium [id number] - [id number] Implanted:Qty: 2 on 09/20/2023 by Hans Rodriguez MD at [facility] N/A: Spine Cervical Nuvasive Inc [id number] / / Nuvasive Inc Screw Spinal Posterior Cervical Solid Reline C 3.5x14mm [id number] - [id number] Implanted:Qty: 5 on 09/20/2023 by Hans Rodriguez MD at [facility] N/A: Spine Cervical Nuvasive Inc [id number] / / Insurance [facility] MEDICARE HMO [employer] MEDICARE HMO Advance Directives For more information, please contact: [phone] * Full Code (Latest Code Status on File) Date Activated Date Inactivated Comments 09/16/2023 9:50 PM 09/29/2023 11:49 PM * Full Code Date Activated Date Inactivated Comments 09/16/2023 9:50 PM 09/16/2023 9:50 PM Care Teams Cell Installer Relationship Specialty Start Date End Date Chavo [place]añ[place] [address] [place] [address] PCP - General Family Practice 01/18/24
--- OUTSIDE RECORDS SUMMARY | 2024-04-02 06:29 | XMS_ITS ---
Author Organization [facility] Address Unknown Allergies, Adverse Reactions, Alerts Substance Reaction Status Noted Date Resolved Date Melatonin active Medications Medication Dose Frequency Directions Start Date End Gavin e Aspirin Oral Tablet 325 MG 1 {tbl} Give 1 tablet by mouth in the morning for cardiac 01/06/2024 03/28/2024 HYDROcodone-Acetaminophe n Oral Tablet 5-325 MG 1 {tbl} Give 1 tablet by mouth every 4 hours as needed for pain 01/05/2024 03/28/2024 Sore Throat Mouth/Throat Lozenge 15-3.6 MG 1 Give 1 lozenge by mouth as needed for sore throat 01/05/2024 03/28/2024 Tolnaftate External Powder 1 % Apply to breasts-b/l , LLQ/RLQ topically every day shift for skin management 01/06/2024 03/28/2024 Methocarbamol Oral Tablet 500 MG 1 {tbl} Give 1 tablet by mouth every 4 hours as needed for muscle spasms 01/08/2024 03/28/2024 Silvadene External Cream 1 % Apply to (L) Heel topically every day shift for wound care (L) Heel: Cleanse with NS. Apply Silvadene, Collagen Hydrogel, Collagen and Calcium Alginate. Cover with Bordered Gauze daily and PRN. 01/13/2024 03/28/2024 Dakins (1/2 strength) External Solution 0.25 % Apply to Buttoc k topically every day shift for wound care cleanse area with NS or wound cleanser, apply Dakin's soaked gauze, cover with ABD. Secure with tape. Change if dressing becomes loose or soiled 01/20/2024 03/08/2024 Dakins (1/2 strength) External Solution 0.25 % Apply to (R) Po st Thigh topically every day shift for wound care cleanse area with NS or wound cleanser, apply Dakin's soaked gauze, cover with ABD. Secure with tape. Change if dressing becomes loose or soiled 01/20/2024 03/08/2024 Fluticasone Propionate Nasal Suspension 50 MCG/ACT 2 2 spray in both nostrils as needed for Allergies Daily 01/22/2024 03/28/2024 Medications Administered Medication Dose Frequency Status Start Date End Date Aspirin Oral Tablet 325 MG 1 {tbl} HYDROcodone-Acetaminophen Or al Tablet 5-325 MG 1 {tbl} 03/27/2024 Sore Throat Mouth/Throat Jenny enge 15-3.6 MG 1 01/05/2024 Tolnaftate External Powder 1 % 03/27/2024 Methocarbamol Oral Tablet 500 MG 1 {tbl} 03/27/2024 Silvadene External Cream 1 % 1 05/28/2023 Dakins (1/2 strength) Auto Clutch Rebuilder al Solution 0.25 % 03/07/2024 Dakins (1/2 strength) Auto Clutch Rebuilder al Solution 0.25 % 03/07/2024 Fluticasone Propionate Nasal Suspension 50 MCG/ACT 2 03/25/2024 Problems Problem Status Start Date End Date ENCEPHALOPATHY, UNSPECIFIED (Primary) (G93.40 - ICD-10-CM) ACTIVE 01/05/2024 URINARY TRACT INFECTION, SIT E NOT SPECIFIED (N39.0 - ICD-10-CM) RESOLVED 01/05/2024 01/19/2024 SEPSIS, UNSPECIFIED ORGANISM (A41.9 - ICD-10-CM) ACTIV E 01/05/2024 TRAUMATIC ISCHEMIA OF MUSCLE , SUBSEQUENT ENCOUNTER (T79.6XXD - ICD-10-CM) ACTIVE 01/05/2024 CELLULITIS, UNSPECIFIED (L03.90 - ICD-10-CM) ACTIVE 01/05/2024 UNSPECIFIED SEVERE PROTEIN-C ALORIE MALNUTRITION (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 - ICD-10-CM) ACTIVE 01/05/2024 PRESSURE ULCER OF SACRAL REG ION, STAGE 4 (L89.154 - ICD-10-CM) ACTIVE 01/05/2024 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 - ICD-10-CM) ACTIVE 01/05/2024 OTHER SPECIFIED SPONDYLOPATH IES, CERVICAL REGION (M48.8X2 - ICD-10-CM) ACTIVE 01/05/2024 UNSPECIFIED OPEN WOUND OF VA ANNA AND VULVA, SUBSEQUENT ENCOUNTER (S31.40XD - ICD-10-CM) ACTIVE 01/05/2024 HYPERKALEMIA (E87.5 - ICD-10-CM) ACTIVE 01/05/20 LOCAL INFECTION OF THE SKIN AND SUBCUTANEOUS TISSUE, UNSPECIFIED (L08.9 - ICD-10-CM) ACTIVE 01/05/2024 OBSTRUCTIVE AND REFLUX UROPA THY, UNSPECIFIED (N13.9 - ICD-10-CM) ACTIVE 01/05/2024 ELEVATED WHITE BLOOD CELL CO UNT, UNSPECIFIED (D72.829 - ICD-10-CM) ACTIVE 01/05/2024 ADULT FAILURE TO THRIVE (R62.7 - ICD-10-CM) ACTIVE 01/05/2024 INSOMNIA, UNSPECIFIED (G47.00 - ICD-10-CM) ACTIVE 01/05/2024 SOLITARY PULMONARY NODULE (R91.1 - ICD-10-CM) ACTIVE 01/05/2024 UNSPECIFIED ATRIAL FIBRILLATION (I48.91 - ICD-10-CM) A CTIVE 01/05/2024 HYPOTENSION, UNSPECIFIED (I95.9 - ICD-10-CM) ACTIVE 01/05/2024 PERSONAL HISTORY OF (HEALED) TRAUMATIC FRACTURE (Z87.81 - ICD-10-CM) ACTIVE 01/05/2024 PERSONAL HISTORY OF TRANSIEN T ISCHEMIC ATTACK (TIA), AND CEREBRAL INFARCTION WITHOUT RESIDUAL DEFICITS (Z86.73 - ICD-10-CM) ACTIVE 01/05/2024 RHABDOMYOLYSIS (M62.82 - ICD-10-CM) ACTIVE 01/04 UNSPECIFIED HYDRONEPHROSIS (N13.30 - ICD-10-CM) ACTIVE 01/05/2024 Encounters Encounter Performer Performer Role Encounter Diagnoses Location Date Discharge - Discharged / Transferred to another [facility] 01/05/2024 04:47 pm EDT - 03/27/2024 12:25 pm EST Reason For Referral Skin wound or Ulcer Immunizations Vaccine Date influenza, unspecified formulation pneumococcal, unspecified formulation Social History Vital Signs Vital Sign Reading Time Taken oxygenSaturation 97 % 03/27/2024 12:2 3 pm EST oxygenSaturation 98 % 03/27/2024 09:4 6 am EST oxygenSaturation 98 % 03/26/2024 09:4 6 am EST oxygenSaturation 96 % 03/25/2024 01:2 6 pm EST oxygenSaturation 98 % 03/24/2024 11:5 6 am EST bloodSugar 207 mg/dL 03/27/2024 12:23 pm EST respirations 16 /min 03/27/2024 12:23 pm EST respirations 18 /min 03/27/2024 09:46 am EST respirations 18 /min 03/26/2024 05:09 pm EST respirations 18 /min 03/26/2024 09:46 am EST respirations 18 /min 03/25/2024 01:26 pm EST respirations 17 /min 03/24/2024 11:56 am EST heartrate 143 /min 03/27/2024 12:22 pm EST heartrate 68 /min 03/27/2024 09:46 am EST heartrate 74 /min 03/26/2024 05:09 pm EST heartrate 68 /min 03/26/2024 09:46 am EST heartrate 89 /min 03/25/2024 01:26 pm EST heartrate 75 /min 03/24/2024 11:56 am EST systolicValue 99 mm[Hg] 03/27/2024 12:21 pm EST diastolicValue 64 mm[Hg] 03/27/2024 12:21 pm EST systolicValue 128 mm[Hg] 03/27/2024 09:46 am EST diastolicValue 76 mm[Hg] 03/27/2024 09:46 am EST systolicValue 122 mm[Hg] 03/26/2024 05:09 pm EST diastolicValue 89 mm[Hg] 03/26/2024 05:09 pm EST systolicValue 122 mm[Hg] 03/26/2024 09:46 am EST diastolicValue 66 mm[Hg] 03/26/2024 09:46 am EST systolicValue 116 mm[Hg] 03/25/2024 01:26 pm EST diastolicValue 71 mm[Hg] 03/25/2024 01:26 pm EST systolicValue 126 mm[Hg] 03/24/2024 11:56 am EST diastolicValue 72 mm[Hg] 03/24/2024 11:56 am EST painLevel 0 {score} 03/27/2024 09:47 am EST painLevel 0 {score} 03/27/2024 09:46 am EST painLevel 2 {score} 03/27/2024 03:51 am EST painLevel 6 {score} 03/26/2024 10:52 pm EST painLevel 0 {score} 03/26/2024 05:10 pm EST painLevel 0 {score} 03/26/2024 09:47 am EST painLevel 0 {score} 03/26/2024 09:47 am EST painLevel 0 {score} 03/25/2024 01:58 pm EST painLevel 6 {score} 03/25/2024 01:26 pm EST painLevel 5 {score} 03/25/2024 12:57 pm EST painLevel 1 {score} 03/25/2024 12:34 am EST painLevel 5 {score} 03/24/2024 09:10 pm EST painLevel 5 {score} 03/24/2024 09:07 pm EST painLevel 1 {score} 03/24/2024 02:47 pm EST painLevel 8 {score} 03/24/2024 01:01 pm EST painLevel 2 {score} 03/24/2024 11:52 am EST painLevel 7 {score} 03/24/2024 08:22 am EST temperature 98.6 [degF] 03/27/2024 09:46 am EST temperature 98.8 [degF] 03/26/2024 05:09 pm EST temperature 98.6 [degF] 03/26/2024 09:46 am EST temperature 99.4 [degF] 03/25/2024 01:26 pm EST temperature 97.8 [degF] 03/24/2024 11:56 am EST
--- OUTSIDE RECORDS SUMMARY | 2024-04-02 06:30 | XMS_ITS | Encounter Summary ---
Author Organization [facility] Healthcare Address [address] [place] [address] Care Team Providers Care Reptile Farmer Name Role Phone No, Physician Primary Care Provider [phone] Encounter Details Date Type Department Care Team (Latest Contact Info) Description 11/17/2023 3:00 PM CDT - 11/17/2023 11:59 PM CDT Hospital Encounter [facility] [place], [place] [id number] Closed fracture of shaft of left tibia, unspecified fracture morphology, initial encounter Discharge Disposition: Discharge to home or self care Social History Tobacco Use Types Packs/Day Years Used Date Smoking Tobacco: Former Cigarettes Q uit: 1962 [facility] Utilities Answer Date Recorded In the past 12 months has [facility] [employer], gas, oil, or water [employer] threatened to shut off services in your [...] often do you attend chur ch or druze services? Never 09/16/2023 Do you belong to any clubs o r organizations such as hinduism groups, unions, fraternal or athletic groups, or [...] care, and heating? Not very hard 09/16/2023 [facility] of Occupat ional Health - Occupational Stress [...] any time in the past 12 m [facility], were you homeless or living in a nursing home (including now)? No 09/16/2023 Personal Safety Answer [...] this encounter Medications at Time of Discharge acetaminophen 500 mg capsuleIndicatio ns:Pain Take 2 capsules (1,000 mg total) by mouth every 6 (six) hours 09/29/2023 calcium carbonate-vitami n D3 1,250mg (500mg elemental) - 5 mcg (200 units) per tablet Take 1 tablet by mouth 2 (two) times a day with meals cyclobenzaprine (FLEXERIL) 10 mg tablet Take 1 tablet (10 mg total) by mouth every 12 (twelve) hours 60 tablet 1 11/13/2023 gabapentin (NEURONTIN) 300 mg capsule Take 1 capsule (300 mg total) by mouth 2 (two) times a day 09/29/2023 09/28/2024 lidocaine (ASPERCREME) 4 % adhesive patch,medicated Place 2 patches on the skin daily 09/30/2023 methocarbamoL (ROBAXIN) 500 mg tablet Take 2 tablets (1,000 mg total) by mouth 4 (four) times a day 09/29/2023 oxyCODONE (ROXICODONE) 5 mg immediate release tabletIndication s:Pain Take 1 tablet (5 mg total) by mouth every 4 (four) hours as needed for pain for up to 20 doses 20 tablet 09/29/2023 polyethylene glycol (MIRALAX) 17 gram/dose bulk powderIndication s:constipation Take 17 g by mouth daily 09/29/2023 SantyL ointment 11/12/2023 senna-docusate (PERICOLACE) 8.6-50 mgIndications:co nstipation Take 1 tablet by mouth 2 (two) times a day 09/29/2023 rOPINIRole (REQUIP) 0.25 mg tablet 11/06/2023 11/20/2023 documented as of this encounter Discharge Disposition Disposition Code Departure Means Destination Discharge to home or self care documented in this encounter Plan of Treatment Not on file documented as of this encounter Procedures Procedure Name Priority Date/Time Associated Diagnosis Comments XR TIBIA FIBULA LEFT 2 VIEWS Schedule Routine, Read Routine (OP Routine) 11/17/2023 3:21 PM CDT Closed fracture of shaft of left tibia, unspecified fracture morphology, initial encounter documented in this encounter Results * X-ray tibia fibula left 2 views (11/17/2023 3:21 PM CDT) Anatomical Region Laterality Modality Lower Extremities, Lower Leg Left Com puted Radiography 11/17/2023 3:50 PM CDT Impressions 11/17/2023 4:06 PM CDT Healing, reduced and nailed distal tibial and fibular shaft fractures. Dictated by: Ponce Stringer M.D. The radiology attending physician has personally reviewed this study, and had reviewed and/or edited this written report and agrees with it. Electronically signed by: Anjali Henderson MD Narrative 11/17/2023 4:06 PM CDT EXAMINATION: XR TIBIA FIBULA LEFT 2 VIEWS HISTORY: Tibia and fibular fracture, follow-up FINDINGS: 2 exposures of the left tibia and fibula are submitted for interpretation with 09/16/2023 comparison. Again seen are healing, reduced and nailed distal tibial and fibular shaft fractures. ??There is disuse osteopenia. ??Diffuse lower extremity edema. ??There is unchanged valgus orientation of the ankle on this nonweightbearing examination. ??No acute fractures. ??Knee joint spaces are intact. Procedure Note Anjali Henderson MD - 11/17/2023 EXAMINATION: XR TIBIA FIBULA LEFT 2 VIEWS HISTORY: Tibia and fibular fracture, follow-up FINDINGS: 2 exposures of the left tibia and fibula are submitted for interpretation with 09/16/2023 comparison. Again seen are healing, reduced and nailed distal tibial and fibular shaft fractures. There is disuse osteopenia. Diffuse lower extremity edema. There is unchanged valgus orientation of the ankle on this nonweightbearing examination. No acute fractures. Knee joint spaces are intact. IMPRESSION: Healing, reduced and nailed distal tibial and fibular shaft fractures. Dictated by: Ponce Stringer M.D. The radiology attending physician has personally reviewed this study, and had reviewed and/or edited this written report and agrees with it. Electronically signed by: Anjali Henderson MD us Hammad Taylor MD IMG XR PROCEDURES Final R esult documented in this encounter Visit Diagnoses Diagnosis Closed fracture of shaft of left tibia, unspecified fracture morphology, initial encounter documented in this encounter Care Teams Reptile Farmer Relationship Specialty Start Date End Date No, Physician PCP - General 09/16/23 01/17/24 documented as of this encounter
--- OUTSIDE RECORDS SUMMARY | 2024-04-02 06:30 | XMS_ITS | Encounter Summary ---
Author Organization [facility] Address [address] [facility] [address] [place] [address] Phone Care Team Providers Care Electric Wheelchair Repairer Name Role Phone No, Physician Primary Care Provider [phone] Reason for Referral * Consultation (Routine) - Pending Review Specialty Diagnoses / Procedures Referred By Clovis cole Referred To Contact Neurology Diagnoses Muscle spasms of both lower extremities Hans Rodriguez MD [address] [place] [address] Phone: tel: fax: [facility] Movement Disorders [address] [place] [phone] Phone: tel: fax: Referral ID Status Reason Start Date Expiration Date Visits Requested Visits Authorized [id number] Pending Review Specialty Services Required 11/23/2023 12/22/2024 1 1 Question Answer Please select the performing region: [facility] (All Locations) [167] # of visits: 1 Comments Spasms per patient Encounter Details Date Type Department Care Team (Late st Contact Info) Description 11/23/2023 Orders Only [facility] Orthopaedic Surgery [address] [facility] 2nd [address] [place] [phone] Hans Rodriguez MD [address] [place] [address] Muscle spasms of both lower extremities (Primary Dx) Social History Tobacco Use Types Packs/Day Years Used Date Smoking Tobacco: Former Cigarettes Q uit: 1962 [facility] Utilities Answer Date Recorded In the past 12 months has th e electric, gas, oil, or water company threatened to shut off services in your [...] often do you attend chur ch or synagogue services? Never 09/16/2023 Do you belong to any clubs o r organizations such as zoroastrian groups, unions, fraternal or athletic groups, or [...] care, and heating? Not very hard 09/16/2023 [facility] of Occupat ional Health - Occupational Stress [...] any time in the past 12 m [facility], were you homeless or living in a chcf (including now)? No 09/16/2023 Personal Safety Answer [...] of this encounter Plan of Treatment Scheduled Referrals Name Type Priority Associated Diagnoses Orde r Schedule Ambulatory referral to Neurology Outpatient Referral Routine Muscle spasms of both lower extremities Expected: 12/07/2023 (Approximate), Expires: 11/22/2024 documented as of this encounter Visit Diagnoses Diagnosis Muscle spasms of both lower extremities- Primary documented in this encounter Care Teams Electric Wheelchair Repairer Relationship Specialty Start Date End Date No, Physician PCP - General 09/16/23 01/17/24 documented as of this encounter
--- OUTSIDE RECORDS SUMMARY | 2024-04-02 06:30 | XMS_ITS | Encounter Summary ---
Author Organization [facility] Address [address] [place] [address] Phone Care Team Providers Care Assistant Chief Train Dispatcher Name Role Phone No, Physician Primary Care Provider [phone] Encounter Details Date Type Department Care Team (Late st Contact Info) Description 12/16/2023 Telephone [facility] Orthopaedic Surgery [address] [facility]th [place] [address] [place] [address] Mony Mcneill RMA Social History Tobacco Use Types Packs/Day Years Used Date Smoking Tobacco: Former Cigarettes Q uit: 1962 [facility] Utilities Answer Date Recorded In the past 12 months has e [employer], gas, oil, or water [employer] threatened to shut off services in your [...] often do you attend chur ch or yazidism services? Never 09/16/2023 Do you belong to any clubs o r organizations such as mormonism groups, unions, fraternal or athletic groups, or [...] care, and heating? Not very hard 09/16/2023 [facility] of Occupat ional Health - Occupational Stress [...] any time in the past 12 m [facility], were you homeless or living in a skilled nursing (including now)? No 09/16/2023 Personal Safety Answer [...] on file documented as of this encounter Miscellaneous Notes * Telephone Encounter - Mony Mcneill RMA - 12/16/2023 12:54 PM CDT Received a call from Shu( nurse with [facility]), she states that the patient is refusing home health, she refused to go to a nursing facility, she is refusing to get out of her wheelchair, she refuse to use the bathroom, patient states that she has on a depend so she does not need to go tothe bathroom. Shu called to inform the office that since the patient is refusing home health and her home conditions are not safe they are unable to see the patient and they have to hotline the patient due to the conditions of the home and that patient does not have any help right now. documented in this encounter Plan of Treatment Not on file documented as of this encounter Visit Diagnoses Not on filedocumented in this encounter Care Teams Assistant Chief Train Dispatcher Relationship Specialty Start Date End Date No, Physician PCP - General 09/16/23 01/17/24 documented as of this encounter
--- OUTSIDE RECORDS SUMMARY | 2024-04-02 06:30 | XMS_ITS | Encounter Summary ---
Author Organization [facility] Address [address] [facility] [address] [place] [address] Phone Care Team Providers Care Oil Field Pumper Name Role Phone No, Physician Primary Care Provider [phone] Encounter Details Date Type Department Care Team (Late st Contact Info) Description 12/16/2023 Telephone [facility] [employer] [place] [address] [place] [address] Janice Briscoe LCSW Social History Tobacco Use Types Packs/Day Years Used Date Smoking Tobacco: Former Cigarettes Q uit: 1962 [facility] Utilities Answer Date Recorded In the past 12 months has e electric, gas, oil, or water company [...] often do you attend chur ch or protestant services? Never 09/16/2023 Do you belong to any clubs o r organizations such as anabaptist groups, unions, fraternal or athletic groups, or [...] care, and heating? Not very hard 09/16/2023 [facility] of Occupat ional Health - Occupational Stress [...] any time in the past 12 m onths, were you homeless or living in a [place] (including now)? No 09/16/2023 Personal Safety Answer [...] encounter Miscellaneous Notes * Telephone Encounter - Janice Briscoe LCSW - 12/24/2023 11:36 AM CDT Follow-Up Social Work Follow-Up Progress Note: Ernestine received incoming call from pt's cardroom manager, Nereyda Melo ([phone]). She reported that pt is currently admitted to ICU in Critical Care at [facility] in [place]. She shared that diagnosis is failure to thrive and TYLER MILLS believes there could be amental health component to pt's condition as well. She shared that pt recently checked herself out of SNF rehab due to concerns regarding costs of care and then pt declined once home. Pt typically has support from her dtr who lives with her however pt's dtr (age 5252 years old) is presently in a SNF rehab following a major health concern. TYLER MILLS reported that she is working with pt's granddaughter who lives in [place] however this is limited due to distance and pt's granddaughter's family circumstances. Ernestine highly encouraged pt's RN GENE to work closely with SW and CM team at the hospital where pt is admitted for safe discharge plan and any resources that might be needed for assistance if/when pt is ready to go back home. TYLER MILLS verbalized agreement and did not indicate any addtl SW needs or concerns at this time. Social Work Intervention/Follow-Up Plan: Sw confirmed with RN GENE that pt is currently admitted to ICU and TYLER MILLS plans to work closely with SW/CM team at hospital Sw to proceed with closing referral to SW as pt is not in ambulatory setting at this time as she isadmitted to hospital. Sw to defer to inpt SW/CM team at the hospital where pt is presently admittedfor safe discharge planning and any addtl acute SW needs or concerns. * Telephone Encounter - Janice Briscoe LCSW - 12/23/2023 11:37 AM CDT Follow-Up Social Work Follow-Up Progress Note: Sw received referral for pt which stated, Patient needs assistance with chore work Social Work Intervention/Follow-Up Plan: Ernestine sent [employer] message to pt on 12/23/23 which stated, Dear Aidee Domínguez, My name is Janice and I am one of the outpatient social workers at [facility]. Our team supports all of the [facility] outpatient clinicsby providing resources and support to patients and families. I am trying to reach you to follow up on a referral that we received from your physician, Dr. Taylor. The referral indicated that you are interested in in-home assistance with chore work. Please feel free to respond by this [employer] message or contact me at [phone], Thursday through Thursday, from 8:00 a.m. to 4:30 p.m. Thank you, 2. Sw to continue attempting to reach pt within the next week in order to follow-up on Social Work referral * Telephone Encounter - Janice Briscoe LCSW - 12/17/2023 2:36 PM CDT Follow-Up Social Work Follow-Up Progress Note: Sw received referral for pt which stated, Patient needs assistance with chore work Social Work Intervention/Follow-Up Plan: Ernestine contacted pt via telephone ([phone]) but was unable to speak with pt. Sw left message asking pt to return call when available. Ernestine sent letter to pt's home address on 12/17/23 which stated, Dear Aidee Domínguez, My name is Janice and I am one of the outpatient social workers at [facility]. Our team supports all of the [facility] outpatient clinicsby providing resources and support to patients and families. I am trying to reach you to follow up on a referral that we received from your physician, Dr. Taylor. The referral indicated that you are interested in in-home assistance with chore work. Please contact me at [phone], Thursday through Thursday, from 8:00 a.m. to 4:30 p.m. Thank you, 3. Sw to continue attempting to reach pt within the next week in order to follow-up on Social Work referral * Telephone Encounter - Jancie Briscoe LCSW - 12/16/2023 1:48 PM CDT [facility] Ambulatory Social Work Referral Intake Assessment Priority Level: MODERATE Reason Referral was submitted by ordering user (copy & pasted from referral): Patient needs assistance with chore work CLINICAL NOTE:This referral has been received by the [facility] Social Work Team. A social service agency director has assessed the level of need and this referral is considered High Priority. Dental Office Assistant will contact this patient within 4-7 business days to provide assistance and support. Please referto [facility] Chart Encounters and Notes for follow-up information regarding this referral moving forward. Thank you. Social Work Intervention/Follow-Up Plan: [facility] Plan Dental Office Assistant will follow-up with patient and/or caregiver to complete intakeand assist. documented in this encounter Plan of Treatment Not on file documented as of this encounter Visit Diagnoses Not on filedocumented in this encounter Care Teams Oil Field Pumper Relationship Specialty Start Date End Date No, Physician PCP - General 09/16/23 01/17/24 documented as of this encounter
--- OUTSIDE RECORDS SUMMARY | 2024-04-02 06:30 | XMS_ITS | Encounter Summary ---
Author Organization [facility] Address [address] [place] [address] Phone Care Team Providers Care Piece Worker Name Role Phone No, Physician Primary Care Provider [phone] Reason for Referral * Consultation (Routine) - Closed Specialty Diagnoses / Procedures Referred By Clovis cole Referred To Contact Behavioral Health Diagnoses Closed fracture of shaft of left tibia, unspecified fracture morphology, initial encounter Hammad Taylor MD Phone: tel: fax: [facility] (All Locations) Referral ID Status Reason Start Date Expiration Date V isits Requested Visits Authorized [id number] Closed Specialty Services Required 12/16/2023 01/14/2025 1 1 Question Answer Are you a Physician/Resident within the [facility]? No Please select the performing region: [facility] (All Locations) [167] Please select the performing department: [facility] [[id number]] WARNING PLEASE NOTE: YOUR REFERRAL MAY BE REJECTED IF YOU ARE OUTSIDE A [facility] REASON FOR REFERRAL: TREE SHEAR OPERATOR FOR PATIENT? S WITH MEDICAID INSURANCE, REHABILITATION RESOURCES DO NOT USE THIS REFERRAL FOR THE FOLLOWING: HOME HEALTH ORDERS # of visits: 1 Comments Patient needs assistance with chore work Encounter Details Date Type Department Care Team (Late st Contact Info) Description 12/16/2023 Orders Only [facility] Orthopaedic Surgery [address] 6th [place] [address] [place] [phone] Hammad Taylor MD [address] [facility] [address] [place] [address] Closed fracture of shaft of left tibia, unspecified fracture morphology, initial encounter (Primary Dx) Social History Tobacco Use Types Packs/Day Years Used Date Smoking Tobacco: Former Cigarettes Q uit: 1961 [facility] Utilities Answer Date Recorded In the past 12 months has e [email or web address], gas, oil, or water company threatened to [...] 09/16/2023 How often do you attend chur or alevism services? Never 09/16/2023 Do you belong to any clubs o r organizations such as denominational groups, unions, fraternal or athletic groups, or [...] care, and heating? Not very hard 09/16/2023 [facility] - Occupational Stress Questionnaire Answer Date Recorded [...] any time in the past 12 m [facility], were you homeless or living in [...] Diagnoses Orde r Schedule Ambulatory referral to Social Work Outpatient Referral Routine Closed fracture of shaft of left tibia, unspecified fracture morphology, initial encounter Expected: 12/30/2023 (Approximate), Expires: 12/15/2024 documented as of this encounter Visit Diagnoses Diagnosis Closed fracture of shaft of left tibia, unspecified fracture morphology, initial encounter- Primary documented in this encounter Care Teams Piece Worker Relationship Specialty Start Date End Date No, Physician PCP - General 09/16/23 01/17/24 documented as of this encounter
--- OUTSIDE RECORDS SUMMARY | 2024-04-02 06:31 | XMS_ITS | Encounter Summary ---
Author Organization [facility] Healthcare Address [address] [place] [address] Care Team Providers Care Flag Signalman Name Role Phone No, Physician Primary Care Provider [phone] Reason for Visit * Diagnostic Imaging (Routine) - Pending Review Specialty Diagnoses / Procedures Referred By Clovis cole Referred To Contact Diagnoses Fusion of spine of cervical region Lumbar spine pain Procedures XR Spine Lumbar 4 or More Views Hans Rodriguez MD [address] [facility] [place] [address] Phone: tel: fax: [facility] Referral ID Status Reason Start Date Expiration Date V isits Requested Visits Authorized [id number] Pending Review 11/13/2023 12/12/2024 1 1 Encounter Details Date Type Department Care Team (Latest Contact Info) Description 11/13/2023 9:15 AM CDT - 11/13/2023 11:59 PM CDT Hospital Encounter [facility] [address] [place] [address] [id number] Discharge Disposition: Discharge to home or self care Social History Tobacco Use Types Packs/Day Years Used Date Smoking Tobacco: Former Cigarettes Q uit: 1962 [facility] Utilities Answer Date Recorded In the past 12 months has e [employer], gas, oil, or water company threatened to [...] How often do you attend chur or caodaism services? Never 09/16/2023 Do you belong to any clubs o r organizations such as jewish groups, unions, fraternal or athletic groups, or [...] care, and heating? Not very hard 09/16/2023 [facility] of Occupat ional Health - Occupational Stress [...] any time in the past 12 m [facility], were you homeless or living in a prison (including now)? No 09/16/2023 Personal Safety Answer [...] Name Priority Date/Time Associated Diagnosis Comments XR SPINE LUMBAR ROUTINE Schedule Routine, Read Routine (OP Routine) 11/13/2023 9:39 AM CDT Fusion of spine of cervical region Lumbar spine pain documented in this encounter Results * XR Spine Lumbar 4 or More Views (11/13/2023 9:39 AM CDT) Anatomical Region Laterality Modality L-spine N/A Computed Radiogr aphy 11/13/2023 11:0 7 AM CDT Impressions 11/13/2023 11:53 AM CDT Severe multilevel degenerative disc disease in the lumbar spine. Dictated by: Ponce Stringer M.D. The radiology attending physician has personally reviewed this study, and had reviewed and/or edited this written report and agrees with it. Electronically signed by: Anjali Henderson MD Narrative 11/13/2023 11:53 AM CDT EXAMINATION: XR SPINE LUMBAR 4 OR MORE VIEWS HISTORY: Back pain FINDINGS: 4 exposures of the lumbar spine study for interpretation with 09/16/2023 CT as comparison. There is long segment dextrocurvature of the lumbar spine. ??Slight retrolisthesis of L1 on L2, which does not change with flexion-extension. ??There is severe multilevel degenerative disc disease throughout the lumbar spine. ??Multilevel facet osteoarthropathy. ??No acute fracture or compression fracture deformity. ??Vascular calcifications. 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 Procedure Note Anjali Henderson MD - 11/13/2023 EXAMINATION: XR SPINE LUMBAR 4 OR MORE VIEWS HISTORY: Back pain FINDINGS: 4 exposures of the lumbar spine study for interpretation with 09/16/2023 CT as comparison. There is long segment dextrocurvature of the lumbar spine. Slight retrolisthesis of L1 on L2, which does not change with flexion-extension. There is severe multilevel degenerative disc disease throughout the lumbar spine. Multilevel facet osteoarthropathy. No acute fracture or compression fracture deformity. Vascular calcifications. 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 IMPRESSION: Severe multilevel degenerative disc disease in the lumbar spine. Dictated by: Ponce Stringer M.D. The radiology attending physician has personally reviewed this study, and had reviewed and/or edited this written report and agrees with it. Electronically signed by: Anjali Henderson MD Hans Rodriguez MD IMG XR PROCEDURES Final Result documented in this encounter Visit Diagnoses Not on filedocumented in this encounter Care Teams Flag Signalman Relationship Specialty Start Date End Date No, Physician PCP - General 09/16/23 01/17/24 documented as of this encounter
--- OUTSIDE RECORDS SUMMARY | 2024-04-02 06:31 | XMS_ITS | Encounter Summary ---
Author Organization [facility] Address [address] [place] [address] Phone Care Team Providers Care Continuing Education Specialist Name Role Phone No, Physician Primary Care Provider [phone] Encounter Details Date Type Department Care Team (Late st Contact Info) Description 10/12/2023 Orders Only [facility] Orthopaedic Surgery [address] [facility] 2nd [address] [place] [address] Hans Rodriguez MD [address] [facility] [address] Social History Tobacco Use Types Packs/Day Years Used Date Smoking Tobacco: Former Cigarettes Q uit: 1962 [facility] Utilities Answer Date Recorded In the past 12 months has [facility], gas, oil, or water [facility] [employer] threatened to shut off services in your [...] often do you attend chur ch or congregation services? Never 09/16/2023 Do you belong to any clubs o r organizations such as pentecostalism groups, unions, fraternal or athletic groups, or [...] care, and heating? Not very hard 09/16/2023 [facility] of Occupat ional Health - Occupational Stress [...] any time in the past 12 m [facility], were you homeless or living in a [...] on filedocumented in this encounter Care Teams Continuing Education Specialist Relationship Specialty Start Date End Date No, Physician PCP - General 09/16/23 01/17/24 documented as of this encounter
--- OUTSIDE RECORDS SUMMARY | 2024-04-02 06:31 | XMS_ITS | Encounter Summary ---
Author Organization [facility] Address [address] [place] [address] Phone Care Team Providers Care Mobile Heavy Equipment Operator Name Role Phone No, Physician Primary Care Provider [phone] Reason for Referral * Diagnostic Imaging (Routine) - Pending Review Specialty Diagnoses / Procedures Referred By Contac t Referred To Contact Diagnoses Fusion of spine of cervical region Lumbar spine pain Procedures XR Spine Lumbar 4 or More Views Hans Rodriguez MD [address] [facility] [address] [place] [address] Phone: tel: fax: [facility] Referral ID Status Reason Start Date Expiration Date V isits Requested Visits Authorized [id number] Pending Review 11/13/2023 12/12/2024 1 1 * Diagnostic Imaging (Routine) - Pending Review Specialty Diagnoses / Procedures Referred By Contac t Referred To Contact Diagnoses Lumbar spine pain Procedures XR Spine Lumbar 4 or More Views Hans Rodriguez MD [address] [facility] [address]6B[address] [place] [address] Phone: tel: fax: [facility] Referral ID Status Reason Start Date Expiration Date V isits Requested Visits Authorized [id number] Pending Review 11/13/2023 12/12/2024 1 1 * Diagnostic Imaging (Routine) - Closed Specialty Diagnoses / Procedures Referred By Clovis t Referred To Contact Diagnoses Fusion of spine of cervical region Procedures XR Spine Cervical 2 or 3 Views Hans Rodriguez MD [address] [facility] [place] [address] Phone: tel: fax: [facility] Referral ID Status Reason Start Date Expiration Date Visits Re quested Visits Authorized [id number] Closed 10/29/2023 11/27/2024 1 1 Reason for Visit * Reason Comments Post-op Encounter Details Date Type Department Care Team (Late st Contact Info) Description 11/13/2023 8:10 AM CDT Office Visit [facility] Orthopaedic Surgery [address] [facility] 12th [place] [address] [place] [address] Hans Rodriguez MD [address] [facility] [place] [address] Fusion of spine of cervical region (Primary Dx); Lumbar spine pain Social History Tobacco Use Types Packs/Day Years Used Date Smoking Tobacco: Former Cigarettes Q uit: 1962 [facility] Utilities Answer Date Recorded In the past 12 months has [facility] [employer], gas, oil, or water [employer] threatened to shut off services in your [...] often do you attend chur ch or methodist services? Never 09/16/2023 Do you belong to [...] care, and heating? Not very hard 09/16/2023 [facility] of Occupat ional Health - Occupational [...] were you homeless or living in a penitentiary (including now)? No 09/16/2023 Personal Safety Answer [...] on file documented as of this encounter Patient Instructions * Patient Instructions* Mel Ivory - 11/13/2023 8:10 AM CDT Thank you for your visit today. Dr. Rodriguez has recommended the following treatment: Lumbar x-rays. Follow up for your 3 month postoperative visit (see as scheduled). Please let me know if you have any questions. Cordelia Ivory, RN, BSN Nurse Clinical Coordinator to Dr. Hans Rodriguez Department of Orthopedic Spine Surgery [facility] Important Phone Numbers: Kaylan Sales Representative [employer] to Dr. Rodriguez: [phone] Cordelia Nurse Coordinator to Dr. Rodriguez: [phone] or [phone] documented in this encounter Progress Notes * Hans Rodriguez MD - 11/13/2023 8:10 AM CDT Images from the original note were not included. Established Patient Visit Interim History Aidee Domínguez returns to our office today for her 7 week postop evaluation status post C2-C7 posterior cervical fusion and decompression. She states that her physical function has significantly improved and she is able to eat again. She is able to use her arms to perform normal daily activities of living. She has started to increase her ambulation. She was told that she should be able to get out of the walking boot in a couple of weeks. Physical Examination On exam, she has 5/5 strength in the bilateral deltoids, biceps, wrist extensors, triceps finger flexors, and hand intrinsics. She has sensation intact to light touch in the bilateral upper extremitydermatomes. Her incision is completely healed without drainage. PROMIS Scores 10/06/2023 10/16/2023 PROMIS Pain Interference 72.1 74.1 Physical Function V2.0 16.8 14.7 Anxiety V1.0 65.4 38.3 Depression 49.9 39.8 Review of Plain Radiographs/Studies I personally reviewed and interpreted the cervical spine radiographs dated 11/13/2023. They are unchanged in appearance compared to her prior films. Impression/Diagnosis Status post posterior cervical C2-7 fusion Treatment Plan I discussed with Aidee that she is making really good progress. She is having some muscle crampingin her legs and we will get lumbar spine x-rays today. Regarding her collar she can take it off except for when she is mobilizing out of the wheelchair. I would like her to continue to wear when she is ambulating in case she has a fall. I would like her to continue using it only for mobilizing for the next 5 weeks until I see her again in clinic. At that time we will likely allow her to come out of the collar completely. At 5 weeks we will get a repeat clinical and radiographic examination. Hans Rodriguez M.D. Furnace Mechanic of Orthopaedic Surgery Department of Orthopaedic Surgery [facility] [employer] [place], [place] Medical Auditor done by [employer]; therefore, variances and inaccuracies may occur. I reviewed the patient problem list pertinent to the visit today, but the entire patient problem list was not reviewed today. documented in this encounter Plan of Treatment Scheduled Orders Name Type Priority Associated Diagnoses Orde r Schedule XR Spine Lumbar 4 or More Views Imaging Schedule Routine, Read Routine (OP Routine) Lumbar spine pain Expected: 11/13/2023, Expires: 11/12/2024 documented as of this encounter Results * XR Spine Lumbar [...] by: Anjali Henderson MD Hans Rodriguez MD [facility] [place]R PROCEDURES Final Result * XR Spine Cervical 2 or 3 Views (11/13/2023 8:26 AM CDT) Anatomical Region Laterality Modality Spine N/A Computed Radiogr aphy 11/13/2023 8:33 AM CDT Impressions 11/13/2023 9:11 AM CDT 1. ??Unchanged C2-C7 posterior instrumented fusion. Dictated by: Denis Mckay D.O. The radiology attending physician has personally reviewed this study, and had reviewed and/or edited this written report and agrees with it. Electronically signed by: Lc Washington M.D. Narrative 11/13/2023 9:11 AM CDT EXAMINATION: XR SPINE CERVICAL 2 OR 3 VIEWS HISTORY: ??Neck pain FINDINGS: 2 views of the cervical spine were obtained with comparison 10/16/2023. There is unchanged posterior decompression and instrumented fusion from C2 to C7. ??The hardware is intact. ??There is no non instrumented anterior fusion at C4-C5. 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 Procedure Note Lc Washington MD PhD - 11/13/2023 EXAMINATION: XR SPINE CERVICAL 2 OR 3 VIEWS HISTORY: Neck pain FINDINGS: 2 views of the cervical spine were obtained with comparison 10/16/2023. There is unchanged posterior decompression and instrumented fusion from C2 to C7. The hardware is intact. There is no non instrumented anterior fusion at C4-C5. 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 IMPRESSION: 1. Unchanged C2-C7 posterior instrumented fusion. Dictated by: Denis Mckay D.O. The radiology attending physician has personally reviewed this study, and had reviewed and/or edited this written report and agrees with it. Electronically signed by: Lc Washington M.D. Hans Rodriguez MD IMG XR PROCEDURES Final Result documented in this encounter Visit Diagnoses Diagnosis Fusion of spine of cervical region- Primary Lumbar spine pain Fusion of spine of cervical region documented in this encounter Historical Medications * This list may reflect changes made after this encounter. calcium carbonate-vitamin D3 1,250mg (500mg elemental) - 5 mcg (200 units) per tablet Take 1 tablet by mouth 2 (two) times a day with meals SantyL ointment 11/12/2023 rOPINIRole (REQUIP) 0.25 mg tablet 11/06/2023 11/20/2023 added in this encounter Care Teams Mobile Heavy Equipment Operator Relationship Specialty Start Date End Date No, Physician PCP - General 09/16/23 01/17/24 documented as of this encounter
--- OUTSIDE RECORDS SUMMARY | 2024-04-02 06:31 | XMS_ITS | Encounter Summary ---
Author Organization [facility] Healthcare Address [address] [place] [address] Care Team Providers Care Teradata Solution Architect Name Role Phone No, Physician Primary Care Provider [phone] Reason for Referral * Diagnostic Imaging (Routine) - Closed Specialty Diagnoses / Procedures Referred By Clovis cole Referred To Contact Diagnoses Fusion of spine of cervical region Procedures XR Spine Cervical 2 or 3 Views Hans Rodriguez MD [address] [employer] [address] [place] [address] Phone: tel: fax: [facility] Referral ID Status Reason Start Date Expiration Date Visits Re quested Visits Authorized [id number] Closed 10/08/2023 11/06/2024 1 1 Reason for Visit * Diagnostic Imaging (Routine) - Closed Specialty Diagnoses / Procedures Referred By Contac t Referred To Contact Diagnoses Fusion of spine of cervical region Procedures XR Spine Cervical 2 or 3 Views Hans Rodriguez MD [address] [employer] [address] [place] [address] Phone: tel: fax: [facility] Referral ID Status Reason Start Date Expiration Date Visits Re quested Visits Authorized [id number] Closed 10/08/2023 11/06/2024 1 1 Encounter Details Date Type Department Care Team (Latest Contact Info) Description 10/16/2023 3:15 PM CDT - 10/16/2023 11:59 PM CDT Hospital Encounter [facility] [address] [place] [address] Fusion of spine of cervical region Discharge Disposition: Discharge to home or self care Social History Tobacco Use Types Packs/Day Years Used Date Smoking Tobacco: Former Cigarettes Q uit: 1962 [facility] Utilities Answer Date Recorded In [...] How often do you attend chur or jew services? Never 09/16/2023 Do you belong to any clubs o r organizations such as latter-day groups, unions, fraternal or athletic groups, or [...] care, and heating? Not very hard 09/16/2023 [facility]ational Stress Questionnaire Answer Date [...] any time in the past 12 m [facility], were you homeless or living in a detention (including now)? No 09/16/2023 Personal Safety Answer [...] by mouth every 6 (six) hours 09/29/2023 gabapentin (NEURONTIN) 300 mg capsule Take 1 [...] Take 17 g by mouth daily 09/29/2023 senna-docusate (PERICOLACE) 8.6-50 mgIndications:co nstipation Take 1 tablet by mouth 2 (two) times a day 09/29/2023 traZODone (DESYREL) 50 mg tablet Take 1 tablet (50 mg total) by mouth nightly 09/29/2023 documented as of this encounter Discharge Disposition Disposition Code Departure Means Destination Discharge to home or self care documented in this encounter Plan of Treatment Not on file documented as of this encounter Procedures Procedure Name Priority Date/Time Associated Diagnosis Comments XR SPINE CERVICAL 2 OR 3 VIEWS Schedule Routine, Read Routine (OP Routine) 10/16/2023 3:45 PM CDT Fusion of spine of cervical region documented in this encounter Results * XR Spine Cervical 2 or 3 Views (10/16/2023 3:45 PM CDT) Anatomical Region Laterality Modality Spine N/A Computed Radiogr aphy 10/16/2023 4:47 PM CDT Impressions 10/16/2023 4:47 PM CDT 1. ??Unchanged C2-C7 posterior instrumented fusion with posterior decompression. Electronically signed by: Yimi Hansen M.D. Narrative 10/16/2023 4:47 PM CDT EXAMINATION: XR SPINE CERVICAL 2 OR 3 VIEWS HISTORY: Cervical spondylosis FINDINGS: 3 view examination of the cervical spine is compared with a study from 09/26/2023. ??There is unchanged posterior decompression and instrumented fusion of C2-C7. ??Instrumentation is intact. ??There is noninstrumented anterior fusion at C4-C5. ??There is severe osteoarthritis at the atlantodental joint. ??The patient is edentulous. ??The patient is seated in a wheelchair. Procedure Note Yimi Hansen MD - 10/16/2023 EXAMINATION: XR SPINE CERVICAL 2 OR 3 VIEWS HISTORY: Cervical spondylosis FINDINGS: 3 view examination of the cervical spine is compared with a study from 09/26/2023. There is unchanged posterior decompression and instrumented fusion of C2-C7. Instrumentation is intact. There is noninstrumented anterior fusion at C4-C5. There is severe osteoarthritis at the atlantodental joint. The patient is edentulous. The patient is seated in a wheelchair. IMPRESSION: 1. Unchanged C2-C7 posterior instrumented fusion with posterior decompression. Electronically signed by: Yimi Hansen M.D. Hans Rodriguez MD IMG XR PROCEDURES Final Result documented in this encounter Visit Diagnoses Diagnosis Fusion of spine of cervical region documented in this encounter Care Teams Teradata Solution Architect Relationship Specialty Start Date End Date No, Physician PCP - General 09/16/23 01/17/24 documented as of this encounter
--- OUTSIDE RECORDS SUMMARY | 2024-04-02 06:31 | XMS_ITS | Encounter Summary ---
Author Organization [facility] Address [address] [place] [address] Phone Care Team Providers Care Space Operations Officer Name Role Phone No, Physician Primary Care Provider [phone] Reason for Referral * Diagnostic Imaging (Routine) - Closed Specialty Diagnoses / Procedures Referred By Clovis cole Referred To Contact Diagnoses Fusion of spine of cervical region Procedures XR Spine Cervical 2 or 3 Views Hans Rodriguez MD [address] [facility] [place] [address] Phone: tel: fax: [facility] Referral ID Status Reason Start Date Expiration Date Visits Re quested Visits Authorized [id number] Closed 10/08/2023 11/06/2024 1 1 Reason for Visit * Reason Comments Post-op Encounter Details Date Type Department Care Team (Late st Contact Info) Description 10/16/2023 3:50 PM CDT Office Visit [facility] Orthopaedic Surgery [address] [facility] 12th [place] [address] [place] [address] Hans Rodriguez MD [address] [facility] [address] [address] [address] Fusion of spine of cervical region (Primary Dx) Social History Tobacco Use Types Packs/Day Years Used Date Smoking Tobacco: Former Cigarettes Q uit: 1962 [facility] Utilities Answer Date Recorded In the past 12 months has th e electric, gas, oil, or water [place] threatened to shut off services in your [...] often do you attend chur ch or jewish services? Never 09/16/2023 Do you belong to any clubs o r organizations such as worship groups, unions, fraternal or athletic groups, or [...] care, and heating? Not very hard 09/16/2023 [facility] of Occupat ional Health - Occupational Stress [...] any time in the past 12 m [facility], were you homeless or living in a usp (including now)? No 09/16/2023 Personal Safety Answer [...] Instructions * Patient Instructions* Mel Ivory - 10/16/2023 3:50 PM CDT Thank you for your visit today. Dr. Rodriguez has recommended the following treatment: Follow up for your 6 week postoperative visit (see as scheduled). Please let me know if you have any questions. Cordelia Ivory RN, BSN Nurse Clinical Coordinator to Dr. Hans Rodriguez Department of Orthopedic Spine Surgery [facility] Important Phone Numbers: Kaylan Speech Lang Path to Dr. Rodriguez: [phone] Cordelia Nurse Coordinator to Dr. Rodriguez: [phone] or [phone] documented in this encounter Progress Notes * Hans Rodriguez MD - 10/16/2023 3:50 PM CDT Images from the original note were not included. Established Patient Visit Interim History Aidee Domínguez returns to our office today for her three-week follow-up status post C3-6 laminectomy with bilateral C4-5 foraminotomies and a C2-C7 posterior cervical fusion. Ms. Domínguez is doing well with significant improvement in her muscle strength, but she is still unable to eat due to some hand weakness. Physical Examination On exam, she has 5/5 strength in the bilateral deltoids, biceps, wrist extensors, and triceps. She has 4/5 strength in the bilateral finger flexors and hand intrinsics. She is sensation intact to light touch in the bilateral upper extremity dermatomes. Her incision is well healed. There is no drainage. There is no surrounding erythema. PROMIS Scores 10/06/2023 10/16/2023 PROMIS Pain Interference 72.1 74.1 Physical Function V2.0 16.8 14.7 Anxiety V1.0 65.4 38.3 Depression 49.9 39.8 Review of Plain Radiographs/Studies I personally reviewed and interpreted the cervical spine radiographs dated 10/16/2023. They are unchanged in appearance compared to her prior films. Impression/Diagnosis Status post C2-7 posterior cervical fusion Treatment Plan Ms. Domínguez is significantly improving following spinal cord decompression surgery. Her strength has significantly improved. She continues to have some difficulty eating and using her hands. I discussed with her that it has only been 3 weeks and that she can still have significant improvements. I would like her to continue to wear her cervical collar for the next 3 weeks until I see her again in clinic and we will re-evaluate wearing it at that time. Hans Rodriguez M.D. Tile Picker of Orthopaedic Surgery Department of Orthopaedic Surgery [facility] [place], [place] Ham Rolling Machine Operator done by [employer]; therefore, variances and inaccuracies may occur. I reviewed the patient problem list pertinent to the visit today, but the entire patient problem list was not reviewed today. documented in this encounter Plan of Treatment Not on file documented as of this encounter Results * XR Spine Cervical [...] decompression. Electronically signed by: Yimi Hansen M.D. us Hans Rodriguez MD IMG XR PROCEDURES Final Result documented in this encounter Visit Diagnoses Diagnosis Fusion of spine of cervical region- Primary Fusion of spine of cervical region documented in this encounter Care Teams Space Operations Officer Relationship Specialty Start Date End Date No, Physician PCP - General 09/16/23 01/17/24 documented as of this encounter
--- OUTSIDE RECORDS SUMMARY | 2024-04-02 06:31 | XMS_ITS | Encounter Summary ---
Author Organization [facility] Address [address] [place] [address] Phone Care Team Providers Care Revenue Cycle Analyst Name Role Phone No, Physician Primary Care Provider [phone] Reason for Visit * Reason Comments Follow-up Encounter Details Date Type Department Care Team (Late st Contact Info) Description 11/17/2023 3:30 PM CDT Office Visit [facility] Orthopaedic Surgery [facility] 6th [place] [address] [place] [address] Hammad Taylor MD [address] [facility] [address] [place] [address] Closed fracture of shaft of left tibia, unspecified fracture morphology, initial encounter (Primary Dx) Social History Tobacco Use Types Packs/Day Years Used Date Smoking Tobacco: Former Cigarettes Q uit: 1962 [facility] Utilities Answer Date Recorded In the past 12 months has [facility] [employer] gas, oil, or water [employer] threatened to shut off services in your [...] How often do you attend chur or sabianism services? Never 09/16/2023 Do you belong to any clubs o r organizations such as jainism groups, unions, fraternal or athletic groups, or [...] care, and heating? Not very hard 09/16/2023 [facility] of Occupat ional Health - Occupational Stress [...] any time in the past 12 m [facility], were you homeless or living in a [...] on file documented as of this encounter Progress Notes * Hammad Taylor MD - 11/17/2023 3:30 PM CDT Images from the original note were not included. Orthopaedic Trauma Service Postoperative Patient Visit Diagnosis: Left distal tibia and fibula fractures Surgery: -September 16, 2023: Intramedullary nailing left tibia and left fibula (MRO) INTERIM HISTORY The patient returns to clinic today for their postoperative visit. They are now approximately 8 weeks out from the above procedure. Overall continues to improve. She has no pain in her left lower extremity. Her incisions are all well healed. She has not been able to weight bear all that much secondary to significant muscle spasms that she is getting throughout bilateral lower extremities. Aside from that she is otherwise happy with her progress. PHYSICAL EXAMINATION Well-developed well-nourished in no acute distress. Alert and oriented ??3. Normal respirations without dyspnea with speaking. Left lower extremity Incision: Well healed surgical incisions Knee joint range of motion: Full extension to 120?? of flexion Foot warm and well-perfused, capillary refill <2 seconds. Palpable dorsalis pedis and posterior tibial pulses. Hip flexion 4/5. Knee flexion/extension 4/5. Ankle plantar/dorsiflexion 4+/5. FHL/EHL strength 4+/5. Tibial, superficial and deep peroneal nerve sensation normal. REVIEW OF X-RAYS/STUDIES I have ordered, reviewed, and interpreted xrays of the patient's left tibia. This displays a comminuted left distal tibial shaft and fibula fracture that is status post intramedullary nailing. When compared to prior films there has been interval valgus deformity of the tibia and fibula fractures with loosening of a distal interlocking screw. There is callus formation noted throughout the tibia and fibula fracture sites. All implants are intact. The ankle joint remains well reduced. ASSESSMENT Ms. Domínguez is a 78 y.o. female who sustained the above injury and is now approximately 8 weeks out from surgery. From a clinical standpoint she is overall doing very well. She has remained in her facility at this time, and much of this is secondary to the severe muscle spasms that she is getting throughout her lower extremities. They are currently working on getting her treated, as this will allowher to begin to mobilize. We went over and discussed her current radiographs today and discussed the plan. She is in agreement with the plan and will follow up in 6-8 weeks. PLAN 1) weightbearing as tolerated left lower extremity. 2) Return to clinic in 6-8 weeks with repeat radiographs left tibia 3) Pain management: [id number] 4) DVT prophylaxis: Complete 5) Splinting/bracing/casting: None 6) Physical therapy: Continue 7) Call with any questions. 8) Work status: Retired Hammad Taylor MD Consultant Teacher Orthopedic Trauma Service [facility] Hammad Taylor MD dictating using [employer] Software. Manager Sales And Marketing variances may occur. documented in this encounter Plan of Treatment Not on file documented as of this encounter Results * X-ray tibia fibula [...] it. Electronically signed by: Anjali Henderson MD Hammad Taylor MD IMG XR PROCEDURES Final R esult documented in this encounter Visit Diagnoses Diagnosis Closed fracture of shaft of left tibia, unspecified fracture morphology, initial encounter- Primary Closed fracture of shaft of left tibia, unspecified fracture morphology, initial encounter documented in this encounter Care Teams Revenue Cycle Analyst Relationship Specialty Start Date End Date No, Physician PCP - General 09/16/23 01/17/24 documented as of this encounter
--- OUTSIDE RECORDS SUMMARY | 2024-04-02 06:31 | XMS_ITS | Encounter Summary ---
Author Organization [facility] Address [address] [place] [address] Phone Care Team Providers Care Agency Operator Name Role Phone No, Physician Primary Care Provider [phone] Reason for Referral * Consultation (Routine) - Pending Review Specialty Diagnoses / Procedures Referred By Clovis cole Referred To Contact Physical Therapy Diagnoses Closed fracture of shaft of left tibia, unspecified fracture morphology, initial encounter Hammad Taylor MD Phone: tel: fax: External Order Referral ID Status Reason Start Date Expiration Date Visits Requested Visits Authorized [id number] Pending Review Evaluate and Treat 10/06/2023 11/04/2024 12 12 Question Answer PTRFR PT Evaluate and Treat Therapy options discussed with patient? Yes Location provided for therapy services is: Patient requested/Patient preferred Please select the performing region: External Order [[id number]] # of visits: 12 Comments PT Evaluate and Treat Dx: Left distal tibia and fibula fracture Surgery: Intramedullary nailing left tibia and fibula Weight Bearing Status: Weight-bearing as tolerated left tibia and fibula in Cam boot for 3 weeks Frequency: 2-3 times per week x 8 weeks Instruct Home Exercise Program Goals: increase range of motion, prevent muscle atrophy, decrease pain and inflammation PHASE 1: Weeks 1-3 postoperative or until first clinic visit Goals: Improve range of motion Nonweightbearing left lower extremity in splint Improve ROM PROM/AROM/AAROM of hip and knee in all planes Manual stretching Wiggle toes Improve Strength Core strengthening Lower back stabilizer muscle strengthening Isometric strengthening of quads, hamstrings, abductors, and adductors Gait training and balance PHASE 2: Weeks 3-6 postoperative Goals: Improve range of motion Weightbearing as tolerated in Cam boot Improve ROM PROM/AROM/AAROM of hip, knee, ankle, and subtalar joint in all planes Focus on ankle range of motion Manual stretching Toe stretching Avoid internal or external rotation stress to ankle Improve Strength Core strengthening Lower back stabilizer muscle strengthening Isometric strengthening of quads, hamstrings, abductors, adductors, and ankle dorsiflexors and plantar flexors Gait training and balance PHASE 3: Week 7 postoperative and beyond Goals: Improve range of motion, strength, and stability Weightbearing as tolerated Improve ROM PROM/AROM/AAROM of hip, knee, ankle, and subtalar joint in all planes Focus on ankle range of motion Manual stretching Toe stretching Improve Strength Core strengthening Lower back stabilizer muscle strengthening Isometric strengthening of quads, hamstrings, abductors, adductors, and ankle dorsiflexors and plantar flexors Stationary bicycle, increase resistance as tolerated, 20 minutes 5 times a week or as tolerated Gait training and balance Modalities PRN Massage Heat Ice Compression Hammad Taylor MD Encounter Details Date Type Department Care Team (Late st Contact Info) Description 10/06/2023 8:00 AM CDT Office [facility] [address] [facility] 6th [place] [address] [place] [address] Hammad Taylor MD [address] [facility] [address] [place] [address] Closed fracture of shaft of left tibia, unspecified fracture morphology, initial encounter (Primary Dx) Social History Tobacco Use Types Packs/Day Years Used Date Smoking Tobacco: Former Cigarettes Q uit: 1962 [facility] Utilities Answer Date Recorded In the past 12 months has e [employer], gas, oil, or water [employer] threatened to shut off services in your [...] How often do you attend chur or bahai services? Never 09/16/2023 Do you belong to any clubs o r organizations such as holiness groups, unions, fraternal or athletic groups, or [...] care, and heating? Not very hard 09/16/2023 [facility] [place] of Occupat ional Health - Occupational Stress [...] were you homeless or living in a senior living (including now)? No 09/16/2023 Personal Safety Answer [...] Progress Notes * Hammad Taylor MD - 10/06/2023 8:00 AM CDT Images from the original note were not included. Orthopaedic Trauma Service Postoperative Patient Visit Diagnosis: Left distal tibia and fibula fractures Surgery: -September 16, 2023: Intramedullary nailing left tibia and left fibula (MRO) INTERIM HISTORY The patient returns to clinic today for their postoperative visit. They are now approximately 3 weeks out from the above procedure. Overall she is doing well. She has currently at a rehab facility. She has been nonweightbearing in her splint. She has currently wearing a cervical collar for her prior neck surgery. She denies any numbness or tingling in her left lower extremity. Her pain is well controlled. PHYSICAL EXAMINATION Well-developed well-nourished in no acute distress. Alert and oriented ??3. Normal respirations without dyspnea with speaking. Left lower extremity Incision: Well-healed surgical incisions throughout the left lower extremity Knee joint range of motion: Full extension to 100?? of flexion Ankle joint range of motion: Neutral dorsiflexion to 30?? of plantar flexion Foot warm and well-perfused, capillary refill <2 seconds. Palpable dorsalis pedis and posterior tibial pulses. Knee flexion/extension 4/5. Ankle plantar/dorsiflexion 4/5. FHL/EHL strength 4/5. Tibial, superficial and deep peroneal nerve sensation normal. REVIEW OF X-RAYS/STUDIES No radiographs were ordered today. ASSESSMENT Ms. Domínguez is a 78 y.o. female who sustained the above injuries is now 3 weeks out from surgery. Overall doing well. We again discussed her expected postoperative course and recovery today. She will be transitioned to a cam boot on her left leg and she can now begin full weight-bearing and work withphysical therapy. PLAN 1) weightbearing as tolerated left lower extremity in cam boot for 3 weeks, then wean from cam boot. 2) Return to clinic in 3 weeks with repeat radiographs left tibia 3) Pain management: [id number] 4) DVT prophylaxis: Complete 5) Splinting/bracing/casting: Cam boot 6) Physical therapy: Provided 7) Call with any questions. 8) Work status: no work Hammad Taylor MD Division Merchandise Manager Orthopedic Trauma Service [facility] Hammad Taylor MD dictating using [employer] Software. Driver Examiner variances may occur. documented in this encounter Plan of Treatment Scheduled Referrals Name Type Priority Associated Diagnoses Orde r Schedule Ambulatory referral order to Physical Therapy - Outpatient Referral Routine Closed fracture of shaft of left tibia, unspecified fracture morphology, initial encounter Expected: 10/20/2023 (Approximate), Expires: 10/05/2024 documented as of this encounter Visit Diagnoses Diagnosis Closed fracture of shaft of left tibia, unspecified fracture morphology, initial encounter- Primary documented in this encounter Care Teams Agency Operator Relationship Specialty Start Date End Date No, Physician PCP - General 09/16/23 01/17/24 documented as of this encounter
--- OUTSIDE RECORDS SUMMARY | 2024-04-02 06:31 | XMS_ITS | Encounter Summary ---
Author Organization [facility] Address [address] [place] [address] Care Team Providers Care Lcpc Name Role Phone No, Physician Primary Care Provider [phone] Reason for Referral * Diagnostic Imaging (Routine) - Closed Specialty Diagnoses / Procedures Referred By Clovis cole Referred To Contact Diagnoses Fusion of spine of cervical region Procedures XR Spine Cervical 2 or 3 Views Hans Rodriguez MD [address] [place] [address] Phone: tel: fax: [facility] Referral ID Status Reason Start Date Expiration Date Visits Re quested Visits Authorized [id number] Closed 10/29/2023 11/27/2024 1 1 Reason for Visit * Diagnostic Imaging (Routine) - Closed Specialty Diagnoses / Procedures Referred By Contac t Referred To Contact Diagnoses Fusion of spine of cervical region Procedures XR Spine Cervical 2 or 3 Views Hans Rodriguez MD [address] [place] [address] Phone: tel: fax: [facility] Referral ID Status Reason Start Date Expiration Date Visits Re quested Visits Authorized [id number] Closed 10/29/2023 11/27/2024 1 1 Encounter Details Date Type Department Care Team (Latest Contact Info) Description 11/13/2023 7:30 AM CDT - 11/13/2023 11:59 PM CDT Hospital Encounter [facility] [address] [place] [address] Fusion of spine of cervical region Discharge Disposition: Discharge to home or self care Social History Tobacco Use Types Packs/Day Years Used Date Smoking Tobacco: Former Cigarettes Q uit: 1962 [facility] Utilities Answer Date Recorded In the [...] How often do you attend chur or adventist services? Never 09/16/2023 Do you belong to any clubs o r organizations such as religion groups, unions, fraternal or athletic groups, or [...] care, and heating? Not very hard 09/16/2023 [facility] - Occupational Stress Questionnaire Answer Date [...] any time in the past 12 m [facility], were you homeless or living in [...] VIEWS Schedule Routine, Read Routine (OP Routine) 11/13/2023 8:26 AM CDT Fusion of spine of cervical [...] region documented in this encounter Care Teams Lcpc Relationship Specialty Start Date End Date No, Physician PCP - General 09/16/23 01/17/24 documented as of this encounter
--- OUTSIDE RECORDS SUMMARY | 2024-04-02 06:31 | XMS_ITS | Encounter Summary ---
Author Organization [facility] Address [address] [place] [address] Phone Care Team Providers Care Supervisor Hot Strip Mill Name Role Phone No, Physician Primary Care Provider [phone] Encounter Details Date Type Department Care Team (Late st Contact Info) Description 10/08/2023 Telephone [facility] Orthopaedic Surgery [address] [facility] [address] [place] [address] Hans Rodriguez MD [address] [place] [address] Social History Tobacco Use Types Packs/Day Years Used Date Smoking Tobacco: Former Cigarettes Q uit: 1962 [facility] Utilities Answer Date Recorded In the past 12 months has [facility] electric, gas, oil, or water [employer] threatened to shut off services in your [...] often do you attend chur ch or latter day services? Never 09/16/2023 Do you belong to [...] encounter Miscellaneous Notes * Telephone Encounter - Mel Ivory - 10/08/2023 12:09 PM CDT I attempted to return a voicemail from the patient's daughter, Jennifer, regarding the patient's scheduled appointment with Dr. Rodriguez on 10/16/23. I have provided my contact information where I can be reached for follow up. documented in this encounter Plan of Treatment Not on file documented as of this encounter Visit Diagnoses Not on filedocumented in this encounter Care Teams Supervisor [employer] Relationship Specialty Start Date End Date No, Physician PCP - General 09/16/23 01/17/24 documented as of this encounter
--- OUTSIDE RECORDS SUMMARY | 2024-04-02 06:32 | XMS_ITS | Encounter Summary ---
Author Organization [facility] Address [address] [place] [address] Phone Care Team Providers Care Customs Guard Name Role Phone No, Physician Primary Care Provider [phone] Encounter Details Date Type Department Care Team (Late st Contact Info) Description 09/25/2023 8:25 AM CDT Ancillary Procedure [facility] IP [address] [facility] [address] [place] [address] Social History Tobacco Use Types Packs/Day Years Used Date Smoking Tobacco: Former Cigarettes Q uit: 1962 [facility] Utilities Answer Date Recorded In the [...] often do you attend chur ch or gnosticist services? Never 09/16/2023 Do you belong to any clubs o r organizations such as quaker groups, unions, fraternal or athletic groups, or [...] care, and heating? Not very hard 09/16/2023 [facility] - [...] Procedure Name Priority Date/Time Associated Diagnosis Comments US VEIN DUPLEX UPPER EXTREMITY RIGHT LIMITED ED Urgent/IP Urgent 09/25/2023 10:27 AM CDT documented in this encounter Results * US Vein Duplex Upper Extremity Right Limited, Unilateral (09/25/2023 10:27 AM CDT) Anatomical Region Laterality Modality Vascular Right Ultrasound 09/25/2023 9:24 AM CDT Narrative 09/27/2023 8:50 PM CDT [facility] - Department of Vascular Surgery, Vascular Laboratory [address] [place] [address] Upper Extremity Venous Ultrasound Report Patient Name: AIDEE PADRON : 1945 (78y 5m) Study Date: 09/25/2023 9:24:11 AM Gender: F Tech: DX Location: [id number] Ref Provider: BARB WAKEFIELD ?Quality: Adequate Order Provider: BARB WAKEFIELD PROCEDURES: Vascular Report: Venous Duplex imaging was performed in the right upper extremity. The internal jugular, subclavian and axillary veins were evaluated for patency, spontaneity and phasicity with Doppler, compression and augmentation maneuvers. The brachial, basilic and cephalic veins were also evaluated with compression maneuvers. INDICATIONS: Localized edema. FINDINGS: Performing Drapery Operator: Erick Garay RVT. Right: Unable to obtain right internal jugular vein due to neck brace. Venous Doppler signals in the right subclavian vein, axillary vein, and brachial veins are within normal limits for spontaneity and phasicity; normal response to compression maneuvers. Positive for superficial vein thrombus in the right upper extremity. Superficial veins involved include the Superficial thrombus length is >5cm. Comments: Contralateral subclavian vein is imaged for comparison and is patent. CONCLUSIONS: 1. No evidence of acute deep vein thrombosis in the right upper extremity. 2. Superficial vein thrombus in the right upper extremity. HISTORY: Not identified. PREVIOUS STUDIES: No previous studies for comparison. DISCLAIMER: The study images and the final report will be retained in the patient chart by the Vascular Laboratory for the legally required time period. This chart constitutes the legal record of any testing performed. ATTESTATION: I have reviewed and interpreted the pertinent images and measurements of this study. I attest to the conclusions in the final report that is provided above. Electronically Signed By: Paul Moran MD [facility] 2023-09-27 20:49:52 CDT Procedure Note Paul Moran MD - 09/27/2023 [facility] - Department of Vascular Surgery,Vascular Laboratory [address] [place] [address] Upper Extremity Venous Ultrasound Report Patient Name: AIDEE PADRON : 1945 (78y 5m) Study Date: 09/25/2023 9:24:11 AM Gender: F Tech: DX Location: [id number] Ref Provider: BARB WAKEFIELD Quality: Adequate Order Provider: BARB WAKEFIELD PROCEDURES: Vascular Report: Venous Duplex imaging was performed in the right upper extremity. Theinternal jugular, subclavian and axillary veins were evaluated for patency, spontaneity andphasicity with Doppler, compression and augmentation maneuvers. The brachial, basilic andcephalic veins were also evaluated with compression maneuvers. INDICATIONS: Localized edema. FINDINGS: Performing Drapery Operator: Erick Garay RVT. Right: Unable to obtain right internal jugular vein due to neck brace. VenousDoppler signals in the right subclavian vein, axillary vein, and brachial veins are withinnormal limits for spontaneity and phasicity; normal response to compression maneuvers.Positive for superficial vein thrombus in the right upper extremity. Superficial veinsinvolved include the Superficial thrombus length is >5cm. Comments: Contralateral subclavian vein is imaged for comparison and is patent. CONCLUSIONS: 1. No evidence of acute deep vein thrombosis in the right upperextremity. 2. Superficial vein thrombus in the right upper extremity. HISTORY: Not identified. PREVIOUS STUDIES: No previous studies for comparison. DISCLAIMER: The study images and the final report will be retained in the patientchart by the Vascular Laboratory for the legally required time period. This chartconstitutes the legal record of any testing performed. ATTESTATION: I have reviewed and interpreted the pertinent images and measurements ofthis study. I attest to the conclusions in the final report that is provided above. Electronically Signed By: Paul Moran MD [facility] 2023-09-27 20:49:52 CDT us Barb Wakefield MD IMG US PROCEDURES Final Res ult documented in this encounter Visit Diagnoses Not on filedocumented in this encounter Care Teams Customs Guard Relationship Specialty Start Date End Date No, Physician PCP - General 09/16/23 01/17/24 documented as of this encounter
--- OUTSIDE RECORDS SUMMARY | 2024-04-02 06:32 | XMS_ITS | Encounter Summary ---
Author Organization [facility] Address [address] [place] [address] Phone Care Team Providers Care Embedded Linux Engineer Name Role Phone No, Physician Primary Care Provider [phone] Reason for Referral * Consultation (Routine) - Closed Specialty Diagnoses / Procedures Referred By Clovis cole Referred To Contact [facility] Diagnoses Closed fracture of shaft of left tibia, unspecified fracture morphology, initial encounter Hammad Taylor MD Phone: tel: fax: [facility] (All Locations) Referral ID Status Reason Start Date Expiration Date V isits Requested Visits Authorized [id number] Closed Specialty Services Required 09/16/2023 10/15/2024 1 1 Question Answer Please select the performing region: [facility] (All Locations) [167] # of visits: 1 Comments Fall resulting in L distal tib/fib fx Encounter Details Date Type Department Care Team (Late st Contact Info) Description 09/16/2023 Orders Only [facility] Orthopaedic Surgery [address] [facility] 6[address] [place] [address] [place] [address] Hammad Taylor MD [address] [facility] [address] [place] [address] Closed fracture of shaft of left tibia, unspecified fracture morphology, initial encounter (Primary Dx) Social History Tobacco Use Types Packs/Day Years Used Date Smoking Tobacco: Former Cigarettes Q uit: 1962 [facility] Utilities Answer Date Recorded In the [...] often do you attend chur ch or gnosticism services? Never 09/16/2023 Do you belong to any clubs o r organizations such as zoroastrianism groups, unions, fraternal or athletic groups, or [...] care, and heating? Not very hard 09/16/2023 [facility] [place] [facility] - Occupational Stress [...] any time in the past 12 m [facility], were you homeless or living in a intermediate (including now)? No 09/16/2023 Personal Safety Answer [...] Diagnoses Orde r Schedule Ambulatory referral to [facility] Outpatient Referral Routine Closed fracture of shaft of left tibia, unspecified fracture morphology, initial encounter Expected: 09/30/2023 (Approximate), Expires: 09/15/2024 documented as of this encounter Visit Diagnoses Diagnosis Closed fracture of shaft of left tibia, unspecified fracture morphology, initial encounter- Primary documented in this encounter Care Teams Embedded Linux Engineer Relationship Specialty Start Date End Date No, Physician PCP - General 09/16/23 01/17/24 documented as of this encounter
--- OUTSIDE RECORDS SUMMARY | 2024-04-02 06:32 | XMS_ITS | Encounter Summary ---
Author Organization [facility] Healthcare Address [address] [place] [address] Care Team Providers Care Retail Marketing Executive Name Role Phone No, Physician Primary Care Provider [phone] Reason for Visit * Auth/Cert (Routine) Specialty Diagnoses / Procedures Referred By Clovis cole Referred To Contact Diagnoses Hypocalcemia Closed fracture of shaft of left tibia, unspecified fracture morphology, initial encounter Other closed fracture of distal end of left tibia, initial encounter Fall/left leg fracture/level 2 Procedures NA Referral ID Status Reason Start Date Expiration Date Visits Re quested Visits Authorized [id number] 1 1 Encounter Details Date Type Department Care Team (Late st Contact Info) Description 09/20/2023 8:09 AM CDT Anesthesia Event [facility] Operating Room [address] [place] [address] Lowell Gamez MD [address] [place] [address] Hans Brady CRNA [address] [place] [address] Anesthesia Record Procedure Summary Procedure Name Responsible Anesthesiologist Anesthesia Start Time Anesthesia Stop Time FUSION CERVICAL - POSTERIOR WITH INSTRUMENTATION C2-7; C3-6 Decompression; C4-5 Foraminotomies (Spine Cervical) Lowell Gamez MD 09/20/23 0809 09/20/23 1427 Events Date Time Event Comment 09/20/2023 0714 In Preop 0809 0809 An Start 0811 In Room 0812 An Start Data 0825 An Induction The patient was reevaluated immediately before moderate or deep sedation use and before anesthesia induction. 0827 An Intubation 0931 Head in cranial pins 1001 Quick Note Flipped, BS equ al ibrahima. 1020 Incision Start 1020 Proc Start 1313 Quick Note Monitoring comp lete 1337 Proc Fin 1400 An Extubation 1409 an stop data 1410 Out of Room 1427 Handoff to RN I completed my handoff to the receiving nurse during which we: 1. Patient identified 2. Responsible provider identified 3. Pertinent medical history reviewed 4. Procedure type and surgical course discussed 5. Intraoperative anesthetic management and any significant issues discussed 6. Expectations and concerns for postop period discussed 7. Questions solicited from receiving nurse 8. Patient disposition at the time of handoff: No value filed. 1427 An Stop 1505 Release from the [facility] Med Name Total lidocaine (cardiac) syringe 2 % 40 mg propofol 150 mg propofol 1,912.28 mg fentaNYL 300 mcg fentaNYL infusion 340.01 mcg succinylcholine 60 mg phenylephrine 100 mcg/mL 200 mcg ondansetron PF (ZOFRAN) 2 mg/mL injectio n 4 mg vancomycin 1,000 mg 1,000 mg norepinephrine 64 mcg phenylephrine infusion (100 mcg/mL) 4.22 mg ceFAZolin 2,000 mg niCARdipine 100 mcg LR 1,300 mL LR 0 mL Lactated Ringer's (LR) infusion 700 mL albumin human bottle 5 % 250 mL NS 0.9% 1,000 mL * Agents Name O2% N2O O2 Air Sevoflurane Inspired Sevoflurane * Blood No blood administrations on file. Lines, Drains, and Airways Type Details Placement Removal Peripheral IV Placement Date: 09/20/23; Placement Time: 938 (created via procedure documentation); Catheter Size: 20 G; Orientation: Left; Location: Arm; Site Prep: Chlorhexidine; Insertion Attempts: 2 09/20/23 0939 by Hans Brady CRNA RETIRED Surgical Site 09/16/23; 1305; Le ft; Leg; 03/15/24 (Retired LDA, Removed/Completed by [facility] with LDA Utility); 1213 (Retired LDA, Removed/Completed by [facility] with LDA Utility) 09/16/23 1305 by Cesia Cervantes RN 03/15/24 1213 by Discharge Provider, Automatic Peripheral IV Placement Date: 09/18/23; Placement Time: 1754; Catheter Size: 22 G; Orientation: Left, Posterior; Location: Hand; Technique: Transillumination; Inserted by: Priscila SCOTT; Removal Date: 09/21/23; Removal Reason: Occluded 09/18/23 1755 by Mireya Mcdaniel RN 09/21/23 0000 by Felipa Martinez RN Arterial Line Placement Date: 09/20/23; Placemnt Time: 937 (created via procedure documentation); Size: 20 G; Orientation: Left; Location: Radial; Securement: Transparent dressing; Removal Date: 09/22/23; Removal Time: 219909/20/23937 by Hans Brady CRNA 09/22/232199 by Brianne Bañuelos RN Peripheral IV Placement Date: 09/20/23; Placement Time: 938 (created via procedure documentation); Catheter Size: 16 G; Orientation: Right; Location: Wrist; Site Prep: Chlorhexidine; Insertion Attempts: 1; Removal Date: 09/23/23; Removal Time: 211309/20/23938 by Hans Brady CRNA 09/23/232113 by Brianne Bañuelos RN Urethral Catheter Placement Date: 09/20/23; Placement Time: 09; Inserted by: Mally HENRY; Type: Double-lumen, Temperature probe, Straight-tip; Balloon Size: 10 mL; Urine Returned: Yes; Removal Date: 09/24/23; Removal Time: 1110; Removal Reason: Therapy complete 09/20/23 0950 by Jessica Jerry RN 09/24/23 1110 by Claire Tena, TYLER ETT Placement Date: 09/20/23; Placement Time: 09 (created via procedure documentation); Mask Ventilation: 0; Technique: Video laryngoscopy; Type: ETT - single; Single Lumen Tube Size: 7 mm; Cuffed: Yes; Laryngoscope: Gwen; Blade Size: 3; Location: Oral; Insertion Attempts: 1; Placement Verification: Auscultation, Capnometry; Removal Date: 09/20/23; Removal Time: 1400 09/20/23 0953 by Hans Brady CRNA 09/20/23 1400 by Brady, Hans A., STENOTYPIST Closed/Suction/Open Drain 09/20/23; 1310; 1; Right; Neck; Bulb; 15 Fr.; Therapy complete 09/20/23 1310 by Jessica Jerry RN 09/24/23 0718 by Claire Tena RN RETIRED Surgical Site 09/20/23; 1320; Ne ck; Bacitracin, Telfa, 4x4s, Tegaderm; 03/15/24 (Retired LDA, Removed/Completed by [facility] with LDA Utility); 1213 (Retired LDA, Removed/Completed by [facility] with LDA Utility) 09/20/23 1320 by Jessica Jerry RN 03/15/24 1213 by Discharge Provider, Automatic RETIRED Wound 09/20/23; 1425; Yes; Skin tear; Right; Calf; 03/15/24 (Retired LDA, Removed/Completed by [facility] with LDA Utility); 1213 (Retired LDA, Removed/Completed by [facility] with LDA Utility) 09/20/23 1425 by Hannah Ghotra RN 03/15/24 1213 by Discharge Provider, Automatic documented in this encounter Social History Tobacco Use Types Packs/Day Years Used Date Smoking Tobacco: Former Cigarettes Q uit: 1962 [facility] Utilities Answer Date Recorded In the past 12 months has [facility] [employer], gas, oil, or water [email or web address] threatened to shut off services in your [...] often do you attend chur ch or samaritan services? Never 09/16/2023 Do you belong to any clubs o r organizations such as bahai groups, unions, fraternal or athletic groups, or [...] care, and heating? Not very hard 09/16/2023 [facility] - [...] were you homeless or living in a correction (including now)? No 09/16/2023 Personal Safety Answer [...] on file documented as of this encounter OR Notes * Anesthesia Postprocedure Evaluation - Lowell Gamez MD - 09/20/2023 2:27 PM CDT Patient: Aidee Domínguez Procedure Summary Date: 09/20/23 Room / Location: [facility] OR POD 5 ROOM 236 / [facility] OR POD 5 Anesthesia Start: 808 Anesthesia Stop: 1426 Procedure: FUSION CERVICAL - POSTERIOR WITH INSTRUMENTATION C2-7; C3-6 Decompression; C4-5 Foraminotomies (Spine Cervical) Diagnosis: Cervical spondylosis with myelopathy (Cervical spondylosis with myelopathy [M47.12]) Surgeons: Hans Rodriguez MD Responsible Provider: Lowell Gamez MD Anesthesia Type: general ASA Status: 3 Anesthesia Type: general Last vitals BP 147/65 Pulse 100 Temp 36.5 ??C (97.7 ??F) (Bladder) Resp 19 SpO2 100% Anesthesia Post Evaluation Patient location during evaluation: ICU Patient participation: complete - patient cannot participate Level of consciousness: follows simple commands Pain score: unable to evaluate Pain management: adequate Airway patency: adequate Evidence of recall: no Cardiovascular status: acceptable and hemodynamically stable Respiratory status: face mask Hydration status: acceptable Pt is: normothermic Nausea/Vomiting status: none Comments: Pt transported to ICU fully monitored. No notable events documented. * Anesthesia Procedure Notes - Hans Brady CRNA - 09/20/2023 9:53 AM CDT Associated Order(s): Airway Airway Patient location: OR Urgency: elective Indications for airway management: anesthesia Difficult airway: no Airway prep: Preoxygenated: yes Patient position: sniffing Mask difficulty assessment: 0 - not attempted Spontaneous ventilation during airway: absent Sedation level during airway: GA Final airway details: Final airway type: endotracheal airway Tube type: ETT ETT size: 7.0 mm Cuffed: yes Technique used for successful ETT placement: video laryngoscopy Devices/Methods used in placement: intubating stylet Insertion site: oral Blade type: Gwen Video blade type: Mayen Blade size: 3 Cormack-Lehane (video): grade I - full view of glottis Initial cuff pressure: 25 cm H2O Cuff volume: 7 mL Cuff inflated with: air ETT to gums: 21 cm Placement verified by: auscultation and CO2 detection Airway secured with: prone view tape and tegaderm Number of attempts: 1 * Anesthesia Procedure Notes - Hans Brady CRNA - 09/20/2023 9:39 AM CDT Associated Order(s): Peripheral IV Catheter Peripheral IV Catheter Patient location: OR Preprocedure prep: Prep solution: chlorhexadine PPE: gloves Skin infiltrated with lidocaine 1%: yes PIV line: Laterality: left Site: forearm Catheter size: 20 g Technique: direct visualization Procedure details: good blood return and occlusive dressing applied Number of attempts: 2 Assessment: Events: patient tolerated procedure well with no complications * Anesthesia Procedure Notes - Hans Brady CRNA - 09/20/2023 9:39 AM CDT Associated Order(s): Peripheral IV Catheter Peripheral IV Catheter Patient location: OR Preprocedure prep: Prep solution: chlorhexadine PPE: gloves Skin infiltrated with lidocaine 1%: yes PIV line: Laterality: right Site: wrist Catheter size: 16 g Technique: direct visualization Procedure details: good blood return and occlusive dressing applied Number of attempts: 1 Assessment: Events: patient tolerated procedure well with no complications * Anesthesia Procedure Notes - Hans Brady CRNA - 09/20/2023 9:38 AM CDT Associated Order(s): Arterial Line Arterial Line Patient location: pre-op holding Indication: continuous blood pressure monitoring Procedure prep: Prep solution: chlorhexadine/alcohol Prep: provider hat/mask and sterile gloves Skin infiltrated with lidocaine 1%: yes Arterial line: Catheter size: 20 gauge Catheter length: 1 and 3/4 inch Catheter type: wire-guided catheter Seldinger technique: yes Laterality: left Site: radial artery Line secured: Tegaderm Results: good waveform and good blood return Number of attempts: 1 Assessment: Events: patient tolerated procedure well with no complications * Anesthesia Preprocedure Evaluation - Lowell Gamez MD - 09/20/2023 8:09 AM CDT Anesthesia Evaluation Aidee Domínguez is a 78 y.o. female FUSION CERVICAL/THORACIC - POSTERIOR WITH INSTRUMENTATION (Spine Cervical) Pre-Op Diagnosis Codes: * Cervical spondylosis with myelopathy [M47.12] Patient Active Problem List Diagnosis Date Noted Electrolyte imbalance 09/19/2023 Weakness of both arms 09/18/2023 Acute pain due to trauma 09/17/2023 Encounter for medication review 09/17/2023 Discharge planning issues 09/17/2023 Pulmonary nodule 09/17/2023 Closed fracture of shaft of left tibia, unspecified fracture morphology, initial encounter 09/16/2023 Cervical spondylosis with myelopathy 09/16/2023 No past medical history on file. History reviewed. No pertinent surgical history. OB History No obstetric history on file. No Known Allergies No medications reported. Current Facility-Administered Medications: [Transfer Hold] acetaminophen (TYLENOL) tablet 1,000 mg, 1,000 mg, oral, Q6H, 1,000 mg at 09/19/232114 [Transfer Hold] Carrier Fluids for Secondary Infusion - 0.9% Sodium Chloride, 30 mL, intravenous, PRN [Held by Provider] enoxaparin (LOVENOX) syringe 30 mg, 30 mg, subcutaneous, Q12H LILA, 30 mg at 09/18/232044 [Transfer Hold] famotidine (PEPCID) tablet 20 mg, 20 mg, oral, Daily, 20 mg at 09/18/23 1024 Lactated Ringer's (LR) infusion, 30 mL/hr, intravenous, Continuous, Last Rate: 30 mL/hr at 809, Rate Verify at 09/20/23 0809 Lactated Ringer's (LR) infusion, 30 mL/hr, intravenous, Continuous [Transfer Hold] lidocaine (ASPERCREME) 4 % patch 2 patch, 2 patch, transdermal, Q24H, 2 patch at 09/19/23 1341 [Transfer Hold] magnesium oxide (MAG-OX) tablet 800 mg, 800 mg, oral, Daily, 800 mg at 09/19/23 1116 [Transfer Hold] methocarbamoL (ROBAXIN) tablet 750 mg, 750 mg, oral, QID, 750 mg at 09/19/232114 [Transfer Hold] oxyCODONE (ROXICODONE) tablet 2.5 mg, 2.5 mg, oral, Q4H PRN, 2.5 mg at 09/18/23 0334 [Transfer Hold] polyethylene glycol (MIRALAX) packet 17 g, 17 g, oral, Daily [Transfer Hold] senna-docusate (PERICOLACE) 8.6-50 mg per tablet 1 tablet, 1 tablet, oral, BID, 1 tablet at 09/19/232114 [Transfer Hold] sodium chloride 0.9% flush 0.5-20 mL, 0.5-20 mL, intra-catheter, Q8H LILA, 10 mL at 09/20/23 0428 [Transfer Hold] sodium chloride 0.9% flush 0.5-20 mL, 0.5-20 mL, intra-catheter, PRN [Transfer Hold] traZODone (DESYREL) tablet 50 mg, 50 mg, oral, Nightly, 50 mg at 09/19/232114 Facility-Administered Medications Ordered in Other Encounters: fentaNYL (SUBLIMAZE) preservative free injection, , intravenous, PRN, 100 mcg at 09/20/23 0903 norepinephrine (LEVOPHED) injection, , intravenous, PRN, 16 mcg at 09/20/23 0915 phenylephrine (TIAGO-SYNEPHRINE) 1 mg/10 mL (100 mcg/mL) in sodium chloride 0.9% (premix), , intravenous, PRN, 100 mcg at 09/20/23 0848 vancomycin (VANCOCIN) solution, , intravenous, PRN, 1,000 mg at 09/20/23 0811 Social History Tobacco Use Smoking Status Former Current packs/day: 0.00 Types: Cigarettes Quit date: 1964 Years since quittin.4 Smokeless Tobacco Not on file Alcohol Use: Not At Risk (09/16/2023) AUDIT-C Frequency of Alcohol Consumption: Monthly or less Average Number of Drinks: 1 or 2 Frequency of Binge Drinking: Never Substance and Sexual Activity Drug Use Not on file No family history on file. Vitals: 09/20/23 0750 09/20/23 0755 09/20/23 0800 BP: 136/64 147/65 Pulse: 88 89 87 Resp: 17 20 17 Temp: SpO2: 98% 98% 98% PT: 09/19/2023: 14.4 sec (H) INR: 09/19/2023: 1.26 (H) APTT: 09/19/2023: 30 sec Hgb A1C: No results found for requested labs within last 30 days. CBC RBC: 09/19/2023: 3.37 M/cumm (L) RDW: No results found for requested labs within last 30 days. MCHC: 09/19/2023: 31.8 g/dL (L) MCH: 09/19/2023: 29.1 pg MCV: 09/19/2023: 91.4 fL Hct: 09/19/2023: 30.8 % (L) Hgb: 09/19/2023: 9.8 g/dL (L) WBC: 09/19/2023: 9.5 K/cumm MPV: 09/19/2023: 10.7 fL Platelets: 09/19/2023: 270 K/cumm RDW CV: 09/19/2023: 13.2 % RDW Sd: 09/19/2023: 43.8 fL BMP Glucose: 09/19/2023: 125 mg/dL Calcium: 09/19/2023: 8.4 mg/dL (L) Sodium: 09/19/2023: 141 mmol/L Potassium: 09/19/2023: 3.6 mmol/L CO2: 09/19/2023: 29 mmol/L Chloride: 09/19/2023: 103 mmol/L BUN: 09/19/2023: 8 mg/dL Creatinine: 09/19/2023: 0.44 mg/dL (L) Short Blessed Total Score: 12 DOS Physical Exam Medical history, medications, and allergies reviewed. Attestation: This PAT evaluation 09/20/2023. Airway Exam: Mallampati: III Cervical ROM: FROM Cardiovascular Exam: Rate: regular Rhythm: regular Pulmonary Exam: LCTA, bilat EENT Exam: trachea midline Dental Exam: Edentulous Current state: Patient's current state is cooperative and interactive. Anesthesia Plan ASA 3 My patient is approved for the Anesthesia Controlled Medication protocol when under care of a STENOTYPIST Planned anesthesia: General Team communication plan: oral ET tube Induction: Induction: intravenous. Postoperative Plan: No plan for postoperative opioid use. No postoperative mechanical ventilation intended. Patient's planned disposition post procedure is Floor. Informed Consent: Discussed plan with STENOTYPIST. Anesthesia plan and risks discussed with patient. Consent and Attending signature: I and/or my designee have discussed the anesthesia plan, benefits, possible alternatives, parental presence at time of induction (if indicated), and clinically relevant risks that may include dental injury, unintentional awareness, and/or other complications. The patient and/or parent/legal guardian understand, and agree to proceed. All questions answered. documented in this encounter Plan of Treatment Not on file documented as of this encounter Procedures Procedure Name Priority Date/Time Associated Diagnosis Comments TX AN PROCEDURE PLACEHOLDER Routine 09/20/2023 9:53 AM CDT TX AN ELECTIVE ENDOTRACHEAL AIRWAY Routine 09/20/2023 9:53 AM CDT TX AN PROCEDURE PLACEHOLDER Routine 09/20/2023 9:39 AM CDT TX AN PROCEDURE PLACEHOLDER Routine 09/20/2023 9:39 AM CDT TX AN PROCEDURE PLACEHOLDER Routine 09/20/2023 9:38 AM CDT documented in this encounter Results * TX AN ELECTIVE ENDOTRACHEAL AIRWAY, TX AN PROCEDURE PLACEHOLDER (09/20/2023 9:53 AM CDT) Hans Guan CRNA - 09/20/2023 9:53 AM CDT Hans Brady CRNA ? 09/20/2023 ??9:53 AM Airway Patient location: OR Urgency: elective Indications for airway management: anesthesia Difficult airway: no Airway prep: Preoxygenated: yes Patient position: sniffing Mask difficulty assessment: 0 - not attempted Spontaneous ventilation during airway: absent Sedation level during airway: GA Final airway details: Final airway type: endotracheal airway Tube type: ETT ETT size: 7.0 mm Cuffed: yes Technique used for successful ETT placement: video laryngoscopy Devices/Methods used in placement: intubating stylet Insertion site: oral Blade type: Gwen Video blade type: Mayen Blade size: 3 Cormack-Lehane (video): grade I - full view of glottis Initial cuff pressure: 25 cm H2O Cuff volume: 7 mL Cuff inflated with: air ETT to gums: 21 cm Placement verified by: auscultation and CO2 detection Airway secured with: prone view tape and tegaderm Number of attempts: 1 us Lowell Gamez MD ANESTHESIA ORDERABLES Final Result * TX AN PROCEDURE PLACEHOLDER (09/20/2023 9:39 AM CDT) aHns Guan CRNA - 09/20/2023 9:39 AM CDT Hans Brady CRNA ? 09/20/2023 ??9:39 AM Peripheral IV Catheter Patient location: OR Preprocedure prep: Prep solution: chlorhexadine PPE: gloves Skin infiltrated with lidocaine 1%: yes PIV line: Laterality: left Site: forearm Catheter size: 20 g Technique: direct visualization Procedure details: good blood return and occlusive dressing applied Number of attempts: 2 Assessment: Events: patient tolerated procedure well with no complications Lowell Gamez MD ANESTHESIA ORDERABLES Final Result * TX AN PROCEDURE PLACEHOLDER (09/20/2023 9:39 AM CDT) Hans Guan CRNA - 09/20/2023 9:39 AM CDT Hans Brady CRNA ? 09/20/2023 ??9:39 AM Peripheral IV Catheter Patient location: OR Preprocedure prep: Prep solution: chlorhexadine PPE: gloves Skin infiltrated with lidocaine 1%: yes PIV line: Laterality: right Site: wrist Catheter size: 16 g Technique: direct visualization Procedure details: good blood return and occlusive dressing applied Number of attempts: 1 Assessment: Events: patient tolerated procedure well with no complications Result [facility] Lowell Gamez MD ANESTHESIA ORDERABLES Final Result * TX AN PROCEDURE PLACEHOLDER (09/20/2023 9:38 AM CDT) Hans Guan CRNA - 09/20/2023 9:38 AM CDT Hans Brady CRNA ? 09/20/2023 ??9:38 AM Arterial Line Patient location: pre-op holding Indication: continuous blood pressure monitoring Procedure prep: Prep solution: chlorhexadine/alcohol Prep: provider hat/mask and sterile gloves Skin infiltrated with lidocaine 1%: yes Arterial line: Catheter size: 20 gauge Catheter length: 1 and 3/4 inch Catheter type: wire-guided catheter Seldinger technique: yes Laterality: left Site: radial artery Line secured: Tegaderm Results: good waveform and good blood return Number of attempts: 1 Assessment: Events: patient tolerated procedure well with no complications Result [facility] Lowell Gamez MD ANESTHESIA ORDERABLES Final Result documented in this encounter Visit Diagnoses Not on filedocumented in this encounter Administered Medications Inactive Administered Medications - up to 3 most recent administrations Medication Order MAR Action Action Date Dose Rate Site albumin 5 % bottle intravenous, Continuous PRN, Starting on Thu09/20/23 at 0844, Anesthesia Intra-op New Bag 09/20/2023 8:44 AM CDT ceFAZolin (ANCEF) injection intravenous, Administer over 3 Minutes, As needed, Starting on 09/20/23 at 1015, Anesthesia Intra-op Given 09/20/2023 10:15 AM CDT 2,000 mg fentaNYL (SUBLIMAZE) preservative free injection intravenous, As needed, Starting on Thu09/20/23 at 0819, Anesthesia Intra-op Given 09/20/2023 11:55 AM CDT 50 mcg Given 09/20/2023 10:22 AM CDT 50 mcg Given 09/20/2023 9:31 AM CDT 50 mcg fentaNYL (SUBLIMAZE) preservative free injection intravenous, Continuous PRN, Starting on [place] 09/20/23 at 0829, Anesthesia Intra-op New Bag 09/20/2023 8:29 AM CDT 1 mcg/kg/hr 1.452 mL/hr Lactated Ringer's (LR) infusion 30 mL/hr, intravenous, Continuous, Starting on [place] 09/20/23 at 0815, Pre-Op Restarted 09/20/2023 1:28 PM CDT Rate/Dose Verify 09/20/2023 8:09 AM CDT 30 mL/h r New Bag 09/20/2023 8:01 AM CDT 30 mL/hr 30 mL/hr Lactated Ringer's (LR) infusion intravenous, Continuous PRN, Starting on Thu09/20/23 at 0828, Anesthesia Intra-op New Bag 09/20/2023 8:43 AM CDT New Bag 09/20/2023 8:28 AM CDT Lactated Ringer's (LR) infusion intravenous, Continuous PRN, Starting on Thu09/20/23 at 1146, Anesthesia Intra-op New Bag 09/20/2023 11:46 AM CDT lidocaine (cardiac) (XYLOCAINE) preservative free injection intravenous, As needed, Starting on [place] 09/20/23 at 0825, Anesthesia Intra-op, Indications: Ventricular ArrhythmiasIndications:Ventricular Arrhythmias Given 09/20/2023 8:25 AM CDT 40 mg niCARdipine (CARDENE) injection intravenous, As needed, Starting on [place] 09/20/23 at 1355, Anesthesia Intra-op, Indications: hypertensionIndications:hypertension Given 09/20/2023 1:55 PM CDT 100 mcg norepinephrine (LEVOPHED) injection intravenous, As needed, Starting on Thu09/20/23 at 0851, Anesthesia Intra-op Given 09/20/2023 9:15 AM CDT 16 mcg Given 09/20/2023 9:12 AM CDT 16 mcg Given 09/20/2023 8:51 AM CDT 16 mcg ondansetron (ZOFRAN) injection intravenous, Administer over 2 Minutes, As needed, Starting on Thu09/20/23 at 1315, Anesthesia Intra-op Given 09/20/2023 1:15 PM CDT 4 mg phenylephrine (TIAGO-SYNEPHRINE) 1 mg/10 mL (100 mcg/mL) in sodium chloride 0.9% (premix) intravenous, As needed, Starting on Thu09/20/23 at 0848, Anesthesia Intra-op Given 09/20/2023 10:18 AM CDT 100 mcg Given 09/20/2023 8:48 AM CDT 100 mcg phenylephrine (TIAGO-SYNEPHRINE) 5 mg/50 mL (100 mcg/mL) in sodium chloride 0.9% (premix) intravenous, Continuous PRN, Starting on Thu09/20/23 at 0828, Anesthesia Intra-op Restarted 09/20/2023 1:21 PM CDT 0.2 mcg/kg/min 8.712 mL/hr Restarted 09/20/2023 10:54 AM CDT 0.2 mcg/kg/min 8.712 mL /hr Rate/Dose Change 09/20/2023 8:59 AM CDT 0.4 mcg/kg/min 17. 424 mL/hr propofoL (DIPRIVAN) 10 mg/mL IV intravenous, As needed, Starting on Thu09/20/23 at 0912, Anesthesia Intra-op Given 09/20/2023 9:12 AM CDT 30 mg Given 09/20/2023 8:25 AM CDT 120 mg propofoL (DIPRIVAN) 10 mg/mL IV intravenous, Continuous PRN, Starting on Thu09/20/23 at 0829, Anesthesia Intra-op Rate/Dose Change 09/20/2023 1:05 PM CDT 80 mcg/kg/min 34.848 mL/hr Rate/Dose Change 09/20/2023 9:15 AM CDT 100 mcg/kg/min 43. 56 mL/hr Restarted 09/20/2023 8:55 AM CDT 75 mcg/kg/min 32.67 mL/h r sodium chloride 0.9% infusion intravenous, Continuous PRN, Starting on 09/20/23 at 0847, Anesthesia Intra-op New Bag 09/20/2023 8:47 AM CDT succinylcholine syringe intravenous, As needed, Starting on Thu09/20/23 at 0825, Anesthesia Intra-op Given 09/20/2023 8:25 AM CDT 60 mg vancomycin (VANCOCIN) solution intravenous, As needed, Starting on [place] 09/20/23 at 0811, Anesthesia Intra-op Given 09/20/2023 8:28 AM CDT 1,000 mg documented in this encounter Care Teams Retail Marketing Executive Relationship Specialty Start Date End Date No, Physician PCP - General 09/16/23 01/17/24 documented as of this encounter
--- OUTSIDE RECORDS SUMMARY | 2024-04-02 06:32 | XMS_ITS | Encounter Summary ---
Author Organization [facility] Healthcare Address [address] [place] [address] Care Team Providers Care Sugar Reprocess Operator Head Name Role Phone No, Physician Primary Care Provider [phone] Reason for Visit * Auth/Cert (Routine) Specialty Diagnoses / Procedures Referred By Clovis cole Referred To Contact Diagnoses Hypocalcemia Closed fracture of shaft of left tibia, unspecified fracture morphology, initial encounter Other closed fracture of distal end of left tibia, initial encounter Fall/left leg fracture/level 2 Procedures NA Referral ID Status Reason Start Date Expiration Date Visits Re quested Visits Authorized [id number] 1 1 Encounter Details Date Type Department Care Team (Late st Contact Info) Description 09/16/2023 12:09 PM CDT Anesthesia Event [facility] Operating Room [address] [place] [address] Júnior Velazquez MD [address] [place] [address] Hans Brizuela MD [address] [place] [address] Anesthesia Record Procedure Summary Procedure Name Responsible Anesthesiologist Anesthesia Start Time Anesthesia Stop Time INTRAMEDULLARY NAIL - TIBIAL and FIBULA (Left: Leg Lower) Júnior Velazquez MD 09/16/23 1209 09/16/23 1547 Events Date Time Event Comment 09/16/2023 1101 In Preop 1136 1209 An Start 1214 In Room 1215 An Start Data 1223 An Induction The patient was reevaluated immediately before moderate or deep sedation use and before anesthesia induction. 1225 An Intubation 1234 Anesthesia Ready 1255 Proc Start 1256 Incision Start 1539 An Extubation 1541 Proc Fin 1542 Out of Room 1547 Handoff to RN I completed my handoff [...] the time of handoff: No value filed. 1547 An Stop Meds Name Total propofol 80 mg fentaNYL 50 mcg HYDROmorphone 2 mg/mL 0.5 mg succinylcholine 60 mg rocuronium 70 mg phenylephrine 1 mg/10 mL syringe (100 mc g/mL) 400 mcg phenylephrine 100 mcg/mL 4.81 mg ePHEDrine 25 mg ondansetron PF (ZOFRAN) 2 mg/mL injectio n 4 mg ceFAZolin 2,000 mg calcium chloride 1 g sugammadex 200 mg sodium chloride 0.9% infusion 2,000 mL * Agents Name O2% N2O O2 N2O Air Sevoflurane Inspired Sevoflurane * Blood No blood administrations on file. Lines, Drains, and Airways Type Details Placement Removal Urethral Catheter Placement Date: 09/16/23; Existing LDA Placed by: Other hospital; Removal Date: 09/17/23; Removal Time: 1134; Removal Reason: Per order 09/16/23 0000 by Teresa Lee RN 09/17/23 1134 by Mireya Mcdaniel RN Peripheral IV Placement Date: 09/16/23; Placement Time: 0320; Catheter Size: 20 G; Orientation: Anterior, Left; Location: Forearm; Removal Date: 09/18/23; Removal Time: 1700; Removal Reason: Other (Comment) (leaking) 09/16/23 0320 by Teresa Lee RN 09/18/23 1700 by Mireya Mcdaniel RN Peripheral IV Placement Date: 09/16/23; Placement Time: 0759; Catheter Size: 20 G; Orientation: Anterior, Right; Location: Hand; Removal Date: 09/18/23; Removal Time: 1700; Removal Reason: Occluded 09/16/23 0759 by Adriana Handley RN 09/18/23 1700 by Mireya Mcdaniel RN ETT Placement Date: 09/16/23; Placement Time: 1235 (created via procedure documentation); Mask Ventilation: 1; Technique: Video laryngoscopy; Type: ETT - single; Single Lumen Tube Size: 7 mm; Cuffed: Yes; Laryngoscope: Gwen; Blade Size: 3; Location: Oral; Insertion Attempts: 1; Placement Verification: Auscultation; Removal Date: 09/16/23; Removal Time: 1539 09/16/23 1235 by Morgan Duke III, CRNA 09/16/23 1539 by Morgan Duke III, [employer] RETIRED Surgical Site 09/16/23; 1305; Le ft; Leg; 03/15/24 (Retired LDA, Removed/Completed by [employer] with LDA Utility); 1213 (Retired LDA, Removed/Completed by [employer] with LDA Utility) 09/16/23 1305 by Cesia Cervantes RN 03/15/24 1213 by Discharge Provider, Automatic documented in this encounter Social History Tobacco Use Types Packs/Day Years Used Date Smoking Tobacco: Former Cigarettes Q uit: 1962 [facility] Utilities Answer Date Recorded In the past 12 months has fflap, gas, oil, or water [email or web address] threatened to shut off services in your [...] often do you attend chur ch or mu-ism services? Never 09/16/2023 Do you belong to [...] care, and heating? Not very hard 09/16/2023 [facility] Occupat ional Health - Occupational Stress [...] were you homeless or living in a care home (including now)? No 09/16/2023 Personal Safety [...] OR Notes * Anesthesia Postprocedure Evaluation - Shiv Barboza MD - 09/16/2023 5:17 PM CDT Patient: Aidee Domínguez Procedure Summary Date: 09/16/23 Room / Location: [facility] OR POD 2 ROOM 204 / [facility] OR POD 2 Anesthesia Start: 1209 Anesthesia Stop: 1547 Procedure: INTRAMEDULLARY NAIL - TIBIAL and FIBULA (Left: Leg Lower) Diagnosis: Other closed fracture of distal end of left tibia, initial encounter (Other closed fracture of distal end of left tibia, initial encounter [S82.392A]) Surgeons: Hammad Taylor MD Responsible Provider: Júnior Velazquez MD Anesthesia Type: general ASA Status: 3 Anesthesia Type: general Last vitals BP 96/49 Pulse 75 Temp 36.2 ??C (97.2 ??F) (Temporal) Resp 10 SpO2 99% Anesthesia Post Evaluation Patient location during evaluation: PACU Patient participation: complete - patient participated Level of consciousness: fully awake Pain management: satisfactory to patient Airway patency: adequate Evidence of recall: no Cardiovascular status: acceptable Respiratory status: acceptable and nasal cannula Hydration status: acceptable Pt is: normothermic Nausea/Vomiting status: none Comments: Transfer to the floor. No notable events documented. * Anesthesia Procedure Notes - Morgan Duke III, CRNA - 09/16/2023 12:34 PM CDTAssociated Order(s): Airway Airway Patient location: OR Urgency: elective Indications for airway management: anesthesia Difficult airway: no Staff: Placed by: [employer]: Morgan Duke III, CRNA Emergent airway documentation: Risks and benefits discussed: yes Consent obtained: yes Consent given by: patient Airway prep: Preoxygenated: yes Patient position: sniffing MILS maintained throughout: yes Mask difficulty assessment: 1 - vent by mask Spontaneous ventilation during airway: absent Sedation level during airway: GA Final airway details: Final airway type: endotracheal airway Tube type: ETT ETT size: 7.0 mm Cuffed: yes Technique used for successful ETT placement: video laryngoscopy Insertion site: oral Blade type: Gwen Video blade type: Mayen Blade size: 3 Cormack-Lehane (video): grade I - full view of glottis Cuff volume: 10 mL Cuff inflated with: air ETT to lips: 22 cm Placement verified by: auscultation Airway secured with: silk tape Number of attempts: 1 * Anesthesia Preprocedure Evaluation - Júnior Velazquez MD - 09/16/2023 8:00 AM CDT [facility] Planning Preoperative Evaluation Record Evaluation type/location: IPAP at [facility] Planned procedure site: [facility] (Pods 2/3/5/RELIGIOUS STUDIES PROFESSOR) Date: 09/16/23 Anesthesia Evaluation OPEN REDUCTION INTERNAL FIXATION TIBIA - DISTAL / PILON - SYNTHES (Left: Leg Lower) Pre-Op Diagnosis Codes: * Other closed fracture of distal end of left tibia, initial encounter [S82.392A] HISTORY HPI 78 y/o female with limited healthcare follow up who presented to OSH with left tibia/fibula fracture to undergo LLE ORIF. Past Medical History Information obtained from: patient and chart. Information obtained during: In Person Neurological Pertinent negatives: seizures; neuromuscular disease; CVA/stroke; TIA; CEA; ICA stenosis; dementia/mild cognitive impairment and carotid artery stent Cardiovascular Pertinent negatives: hypertension ; CAD ; [place] ; CABG ; valvular heart disease; valve replacement; atrial fibrillation; arrhythmia; pacemaker/ICD; PVD; DVT/PE; negative for CHF; drug-eluting stent(s); bare metal stent(s) and coronary angioplasty Respiratory Pertinent negatives: COPD; asthma; sleep apnea (ALIRIO); pulmonary hypertension; no O2 use outside thehospital; non-smoker and no tracheostomy Hepatic / Heme Pertinent negatives: liver disease; history of anemia; history of thrombocytopenia and history of Alejandrina positive Gastrointestinal + GERD - PRN medication use only. Symptoms < 1x/week. Pertinent negatives: hiatal hernia Renal / + Renal disease Pertinent negatives: dialysis and nephrolithiasis Musculoskeletal/Pain + Chronic pain (knees: left worse than right) + Osteoarthritis Pertinent negatives: chronic opioid use and previous treatment for opioid use disorder Endocrine / Other Pertinent negatives: diabetes mellitus; thyroid disease; obesity (BMI >30); cancer history; rheumatological disease and transplanted organ Functional Capacity Functional capacity: <4 METs Comments: Pt with OA, ambulates with walker at baseline. Pt denies exertional chest pain or dyspnea. Day of Surgery assessments + Possibility of assessed - ruled out by patient's provided history. Review of Systems + pedal edema (mild, per patient) + muscle weakness (left leg due to knee OA) + chronic pain (knees: left worse than right) + hard of hearing + dentures/partials (upper/lower dentures) Pertinent negatives: productive cough; wheezing; SOB; recent cold/flu; fever; chest pain; palpitations; orthopnea; PND; heavy menses; Sickle Cell disease/trait; previous transfusion; transfusion reaction; melena/hematochezia; easy bruising; bleeding problems; syncope; dizziness; numbness/tingling; vision loss; heartburn; nausea; dysphagia; diarrhea; chipped/loose teeth; abdominal pain; diaphoresis and no unexpected weight change PAT Summary and Plans Cardiac risk classification of planned procedure: intermediate cardiac risk. Recommendations for patient: follow-up appointment with physician. Preoperative assessment status: complete. Initial preoperative evaluation discussed with: Klever Collins MD Additional comments: Aidee Domínguez is a 78 y.o. female who is being evaluated prior to undergoing anintermediate cardiac risk surgery. Revised Cardiac Risk Index factors are (none) for a total RCRI of 0 out of 6. Functional capacity is <4 METs (specifically:limited mobility due to bilateral kneepain, pt uses a walker for ambulation. Pt denies exertional chest pain or dyspnea). Obstructive sleep apnea (ALIRIO) screening status is STOP-Bang=1 suggesting low risk for ALIRIO Blood bank needs for day of procedure: Type and Screen only Finalized labs/tests include: CBC (09/16/2023-WBC 12.7, H/H 11.5/35.2, platelets 128615), CMP (09/16/2023-Creatinine 0.58, calcium 8.4, Protein 5.9, albumin 3.1, AST 84),T&S (09/16/2023-Alejandrina negative), PT (09/16/2023-14/1.23), PTT (09/16/2023-27) Preoperative evaluation performed by Cassandra Martínez NP on 09/16/23 at 8:08 AM. . Patient Active Problem List Diagnosis Date Noted ??? Closed fracture of part of tibia 09/16/2023 ??? Closed fracture of shaft of left tibia, unspecified fracture morphology, initial encounter 09/16/2023 No past medical history on file. No past surgical history on file. OB History No obstetric history on file. No Known Allergies No medications on file. Current Facility-Administered Medications: ??? calcium gluconate 2 g/100 mL in sodium chloride (premix) solution 2 g, 2 g, intravenous, Once, 2 g at 09/16/23 0750 ??? dextrose 5% and Lactated Ringer's infusion, 150 mL/hr, intravenous, Continuous, Last Rate: 150 mL/hr at 09/16/23 0644, 150 mL/hr at 09/16/23 0644 ??? morphine injection 4 mg, 4 mg, intravenous, Q4H PRN, 4 mg at 09/16/23 0338 No current outpatient medications on file. Social History Tobacco Use Smoking Status Not on file Smokeless Tobacco Not on file Alcohol Use: Not on file Substance and Sexual Activity Drug Use Not on file No family history on file. PAT Physical Exam Airway Exam: Mallampati: I Cervical ROM: FROM TM distance: 3 Cardiovascular Exam: Rate: regular Rhythm: regular Murmur: grade II/ Peripheral edema: trace edema (Murmur best heard on left chest) Pulmonary Exam: LCTA, bilat Decreased, bilat EENT Exam: trachea midline Dental Exam: Lower dentures and upper dentures Skin Exam: Skin is warm. Capillary refill is < 3 seconds. Turgor is normal. Abdominal exam: Abdomen is soft. Bowel sounds are present. Current state: Patient's current state is cooperative. Line/Drains/Tubes/Devices: Lines in situ (Peripheral IV x2 (#20 LFA; #20 RFA)): Vitals: 09/16/23 0545 09/16/23 0700 09/16/23 0730 BP: 105/57 119/71 112/63 Pulse: 83 89 89 Resp: 13 12 13 Temp: SpO2: 98% 90% 94% Relevant diagnostics: ECG(s): -09/16/2023-SR 94 bpm, PVC Echocardiogram(s): N/A Stress test(s): N/A Cardiac catheterization(s): N/A PFT(s): N/A Vascular studies: N/A Other: N/A PT: 09/16/2023: 14.0 sec (H) INR: 09/16/2023: 1.23 (H) APTT: 09/16/2023: 27 sec (L) Hgb A1C: No results found for requested labs within last 30 days. CBC RBC: 09/16/2023: 3.93 M/cumm RDW: No results found for requested labs within last 30 days. MCHC: 09/16/2023: 32.7 g/dL MCH: 09/16/2023: 29.3 pg MCV: 09/16/2023: 89.6 fL Hct: 09/16/2023: 35.2 % (L) Hgb: 09/16/2023: 11.5 g/dL (L) WBC: 09/16/2023: 12.7 K/cumm (H) MPV: 09/16/2023: 11.2 fL Platelets: 09/16/2023: 209 K/cumm RDW CV: 09/16/2023: 12.8 % RDW Sd: 09/16/2023: 42.1 fL BMP Glucose: 09/16/2023: 101 mg/dL Calcium: 09/16/2023: 8.4 mg/dL (L) Sodium: 09/16/2023: 137 mmol/L Potassium: 09/16/2023: 3.7 mmol/L CO2: 09/16/2023: 23 mmol/L Chloride: 09/16/2023: 105 mmol/L BUN: 09/16/2023: 20 mg/dL Creatinine: 09/16/2023: 0.58 mg/dL (L) DOS Physical Exam Medical history, medications, and allergies reviewed. Attestation: I endorse the findings of the anesthesia pre-evaluation assessment dated: 09/16/2023. Airway Exam: Mallampati: II Cervical ROM: limited extension TM distance: >4 Cardiovascular Exam: Rate: regular Rhythm: regular Pulmonary Exam: LCTA, bilat Dental Exam: Edentulous Current state: Patient's current state is cooperative. Anesthesia Plan ASA 3 My patient is approved for the Anesthesia Controlled Medication protocol when under care of a [employer] Planned anesthesia: General Team communication plan: oral ET tube Induction: Induction: intravenous. Postoperative Plan: Postoperative administration opioids intended. No postoperative mechanical ventilation intended. Patient's planned disposition post procedure is Floor. Planned trial extubation. Informed Consent: Discussed plan with [employer]. Anesthesia plan and risks discussed with patient. Plan and Consent Comments: No known cardiac disease, but patient has limited mobility, <4 METs, can only walk with cane Consent and Attending signature: I and/or my [...] Procedure Name Priority Date/Time Associated Diagnosis Comments AR AN PROCEDURE PLACEHOLDER Routine 09/16/2023 12:34 PM CDT AR AN ELECTIVE ENDOTRACHEAL AIRWAY Routine 09/16/2023 12:34 PM CDT documented in this encounter Results * AR AN ELECTIVE ENDOTRACHEAL AIRWAY, AR AN PROCEDURE PLACEHOLDER (09/16/2023 12:34 PM CDT) Narrative Morgan Duke III, CRNA - 09/16/2023 12:34 PM CDT Morgan Duke III, CRNA ? 09/16/2023 12:35 PM Airway Patient location: OR Urgency: elective Indications for airway management: anesthesia Difficult airway: no Staff: Placed by: [employer]: Morgan Duke III, CRNA Emergent airway documentation: Risks and benefits discussed: yes Consent obtained: yes Consent given by: patient Airway prep: Preoxygenated: yes Patient position: sniffing MILS maintained throughout: yes Mask difficulty assessment: 1 - vent by mask Spontaneous ventilation during airway: absent Sedation level during airway: GA Final airway details: Final airway type: endotracheal airway Tube type: ETT ETT size: 7.0 mm Cuffed: yes Technique used for successful ETT placement: video laryngoscopy Insertion site: oral Blade type: Gwen Video blade type: Mayen Blade size: 3 Cormack-Lehane (video): grade I - full view of glottis Cuff volume: 10 mL Cuff inflated with: air ETT to lips: 22 cm Placement verified by: auscultation Airway secured with: silk tape Number of attempts: 1 us Júnior Velazquez MD ANESTHESIA ORDERABLES Fi nal Result documented in this encounter Visit Diagnoses Not on filedocumented in this encounter Administered Medications Inactive Administered Medications - up to 3 most recent administrations Medication Order MAR Action Action Date Dose Rate Site calcium chloride IV syringe intravenous, As needed, Starting on Thu09/16/23 at 1234, Anesthesia Intra-op Given 09/16/2023 12:34 PM CDT 1 g ceFAZolin (ANCEF) injection intravenous, Administer over 3 Minutes, As needed, Starting on Thu09/16/23 at 1232, Anesthesia Intra-op Given 09/16/2023 12:32 PM CDT 2,000 mg ePHEDrine injection intravenous, Administer over 5 Minutes, As needed, Starting on Thu09/16/23 at 1238, Anesthesia Intra-op Given 09/16/2023 12:38 PM CDT 25 mg fentaNYL (SUBLIMAZE) preservative free injection intravenous, As needed, Starting on Thu09/16/23 at 1223, Anesthesia Intra-op Given 09/16/2023 12:23 PM CDT 50 mcg HYDROmorphone (DILAUDID) injection intravenous, Administer over 2 Minutes, As needed, Starting on Thu09/16/23 at 1507, Anesthesia Intra-op Given 09/16/2023 3:07 PM CDT 0.5 mg ondansetron (ZOFRAN) injection intravenous, Administer over 2 Minutes, As needed, Starting on Thu09/16/23 at 1237, Anesthesia Intra-op Given 09/16/2023 12:37 PM CDT 4 mg phenylephrine (TIAGO-SYNEPHRINE) 1 mg/10 mL (100 mcg/mL) in sodium chloride 0.9% (premix) intravenous, Continuous PRN, Starting on Thu09/16/23 at 1223, Anesthesia Intra-op Rate/Dose Change 09/16/2023 3:25 PM CDT 0.3 mcg/kg/min 13.068 mL/hr Rate/Dose Change 09/16/2023 3:12 PM CDT 0.1 mcg/kg/min 4.3 56 mL/hr Rate/Dose Change 09/16/2023 2:48 PM CDT 0.3 mcg/kg/min 13. 068 mL/hr phenylephrine (TIAGO-SYNEPHRINE) 1 mg/10 mL (100 mcg/mL) in sodium chloride 0.9% (premix) intravenous, As needed, Starting on Thu09/16/23 at 1234, Anesthesia Intra-op Given 09/16/2023 12:34 PM CDT 400 mcg propofoL (DIPRIVAN) 10 mg/mL IV intravenous, As needed, Starting on Thu09/16/23 at 1223, Anesthesia Intra-op Given 09/16/2023 12:23 PM CDT 80 mg rocuronium (ZEMURON) injection intravenous, As needed, Starting on Thu09/16/23 at 1228, Anesthesia Intra-op Given 09/16/2023 1:33 PM CDT 20 mg Given 09/16/2023 12:28 PM CDT 50 mg sodium chloride 0.9% infusion 30 mL/hr, intravenous, Continuous, Starting on Thu09/16/23 at 1145, Pre-Op New Bag 09/16/2023 3:03 PM CDT New Bag 09/16/2023 1:07 PM CDT Restarted 09/16/2023 12:09 PM CDT succinylcholine syringe intravenous, As needed, Starting on Thu09/16/23 at 1223, Anesthesia Intra-op Given 09/16/2023 12:23 PM CDT 60 mg sugammadex (BRIDION) 100 mg/mL intravenous solution intravenous, As needed, Starting on Thu09/16/23 at 1534, Anesthesia Intra-op Given 09/16/2023 3:34 PM CDT 200 mg documented in this encounter Care Teams Sugar Reprocess Operator Head Relationship Specialty Start Date End Date No, Physician PCP - General 09/16/23 01/17/24 documented as of this encounter
--- OUTSIDE RECORDS SUMMARY | 2024-04-02 06:32 | XMS_ITS | Encounter Summary ---
Author Organization [facility] Healthcare Address [address] [place] [address] Care Team Providers Care Security Program Manager Name Role Phone No, Physician Primary Care Provider [phone] Reason for Visit * Reason Comments Fall * Auth/Cert (Routine) Specialty Diagnoses / Procedures Referred By Contac t Referred To Contact Diagnoses Hypocalcemia Closed fracture of shaft of left tibia, unspecified fracture morphology, initial encounter Other closed fracture of distal end of left tibia, initial encounter Fall/left leg fracture/level 2 Procedures NA Referral ID Status Reason Start Date Expiration Date Visits Re quested Visits Authorized [id number] 1 1 Encounter Details Date Type Department Care Team (Late st Contact Info) Description 09/20/2023 10:10 AM CDT - 09/20/2023 3:00 PM CDT Surgery [facility] Operating Room [address] [place] [address] Hans Rodriguez MD [address] [facility] 6A[address]6B[address] [place] [address] FUSION CERVICAL - POSTERIOR WITH INSTRUMENTATION C2-7; C3-6 Decompression; C4-5 Foraminotomies Surgery Details Date/Time Status Location OR Service Patient Class Case Class Case Type Trauma Case? 09/20/2023 10:10 AM Posted [facility] OR POD 5 236 Orthopaedics Inpatient Urgent - 12 hours Panel 1 Procedure LRB Anes Op Region Wound Class Comments FUSION CERVICAL - POSTERIOR WITH INSTRUMENTATION C2-7; C3-6 Decompression; C4-5 Foraminotomies N/A General Spine Cervical Class I - Clean c2-7 psf w c3-6 decompression, neuromonitoring Surgeon Surgeon Role Service Panel Hans Rodriguez MD Primary Orthopaedics 1 Yas Fuller MD Fellow Orthopaedic Spine 1 documented in this encounter Social History Tobacco Use Types Packs/Day Years Used Date Smoking Tobacco: Former Cigarettes Q uit: 1964 Tobacco Cessation:Counseling Given: Not Answered [facility] Utilities Answer Date Recorded In the [...] How often do you attend chur or evangelical services? Never 09/16/2023 Do you belong to any clubs o r organizations such as anabaptism groups, unions, fraternal or athletic groups, or [...] care, and heating? Not very hard 09/16/2023 [facility] - Occupational Stress Questionnaire Answer Date [...] were you homeless or living in a mcfp (including now)? No 09/16/2023 Personal Safety Answer [...] Sign Reading Time Taken Comments Blood Pressure 147/65 09/20/2023 8:00 AM CDT Pulse 118 09/20/2023 3:00 PM CDT Temperature 36.6 ??C (97.9 ??F) 09/20/2023 3:00 PM CD T Respiratory Rate 20 09/20/2023 3:00 PM CDT Oxygen Saturation 91% 09/20/2023 2:45 PM CDT Inhaled Oxygen Concentration - - Weight 72.6 kg (160 lb) 09/16/2023 10:00 PM CDT Height 165.1 cm (5' 5 ) 09/16/2023 10:00 PM CDT Body Mass Index 30.23 09/23/2023 8:55 AM CDT documented in this encounter Discharge Summaries * Penny Luna, [employer]KER AND WEIGHER - 09/29/2023 1:43 PM CDT Images from the original note were not included. [facility] Inpatient Discharge Summary This is a clinical resume for patient Aidee Domínguez for attending Ibrahima Middleton MD Admission Date: 09/16/2023 Admitting Provider: Hans Rodriguez MD Discharge Date: 09/29/2023 Hospitalization: Total duration of encounter: 13 days Team: Acute Care Surgery Primary Care Provider: Angelia, Physician History of Present Illness: TRAUMA C - RED 78 y.o. female denies PMH s/p GLF. #L distal tib/fib fx #C3-C4 spinal stenosis Procedures: 09/15: L tib fib IMN 09/19: PSF C2-C7 + C3-C6 laminectomies Edited by: Ayesha Liu MD at 09/21/2023 0605 Discharge Diagnosis(es): Cervical spondylosis with myelopathy Secondary Discharge Diagnosis: Principal Problem: Cervical spondylosis with myelopathy Active Problems: Closed fracture of shaft of left tibia, unspecified fracture morphology, initial encounter Acute pain due to trauma Encounter for medication review Discharge planning issues Pulmonary nodule Weakness of both arms Electrolyte imbalance Resolved Problems: No resolved hospital problems. Active Issues Requiring Follow Up: See Below Anticoagulation: unilateral LE injury; ASA 81 BID x 14 days and Followup with your primary care doctor for ongoing management of your chronic medical issues - [facility] has a primary care clinic that may be able to help if you don't have a primary care doctor - call [phone] to see if they can establish care. Hospital Course: Electrolyte imbalance Assessment & Plan - 09/17: Mg 1.7, Phos 2.9, K 3.1 - 09/25: Lytes stable: DC'ed daily labs Weakness of both arms Assessment & Plan - Pe patient, weakness started after fall. [...] DVT; (+) superficial vein thrombus - 09/25: Iroquois J and upright cspine Xrs completed - 09/26: BUE motor exam stable. Cont PT/OT - 09/28: Doing well, tolerating diet and activity with well controlled pain; Iroquois J in place; PMNR c/s for recs Pulmonary nodule Assessment & Plan - CT C/A/P (09/15): Indeterminate right lower lobe pulmonary nodule with broad base along the pleura.Recommend comparison with prior imaging if available to document stability. If no prior imaging is available, recommend follow-up CT in 6-12 months. Acute pain due to trauma Assessment & Plan - Tylenol 1000 mg q6h - Robaxin 1000 mg qid - Oxycodone 5 mg q4h PRN -gabapentin 300 mg bid - Lidocaine patch daily Bowel regimen senna , Miralax Closed fracture of shaft of left tibia, unspecified fracture morphology, initial encounter Assessment & Plan #Left tib fib fracture - Orthopedic consult - s/p OR 09/15 IMN - NWB LLE - Maintain SLS - PT/OT - Pain control - Bone health referral at discharge Operative Procedures Performed: FUSION CERVICAL/THORACIC - POSTERIOR WITH INSTRUMENTATION (Spine Cervical) INTRAMEDULLARY NAIL - TIBIAL and FIBULA - Left Discharge Physical Exam: Discharge Condition: good Pulse: 116 Resp: 18 BP: 121/74 Temp: 36.8 ??C (98.2 ??F) Weight: 82.4 kg (181 lb 10.5 oz) Physical Exam Vitals and nursing note reviewed. Constitutional: Appearance: Normal appearance. HENT: Head: Normocephalic. Mouth/Throat: Mouth: Mucous membranes are moist. Eyes: Extraocular Movements: Extraocular movements intact. Cardiovascular: Rate and Rhythm: Normal rate. Pulmonary: Effort: Pulmonary effort is normal. Abdominal: Palpations: Abdomen is soft. Musculoskeletal: Cervical back: Normal range of motion. Skin: General: Skin is warm and dry. Neurological: General: No focal deficit present. Mental Status: She is alert and oriented to person, place, and time. Psychiatric: Mood and Affect: Mood normal. Behavior: Behavior normal. Diet: Diet Instructions Adult Discharge Diet Diet Type: Return to previous diet Discharge Disposition: Discharge to SNF Code Status at Discharge: Full Code Activity: Activity Instructions Discharge Activity: Walking -You may walk as tolerated. Weight bearing status Restrictions RUE: Weight Bearing as Tolerated Restrictions LUE: Weight Bearing as Tolerated Restrictions RLE: Weight Bearing as Tolerated Restrictions LLE: Weight Bearing as Tolerated Wound Care: Carries out hygiene routine on a regular basis and Requires assistance keep wound clean and dry none Discharge Medications: Your medication list as of September 24, 2023 11:51 AM Current Medications TAKE these medications acetaminophen 500 mg capsule Take 2 capsules (1,000 mg total) by mouth every 6 (six) hours For: pain aspirin 81 mg chewable tablet Take 1 tablet (81 mg total) by mouth daily for 14 days For: prevention of thrombosis gabapentin 300 mg capsule Take 1 capsule (300 mg total) by mouth 2 (two) times a day Commonly known as: NEURONTIN lidocaine 4 % adhesive patch,medicated Place 2 patches on the skin daily Commonly known as: ASPERCREME Start taking on: September 30, 2023 methocarbamoL 500 mg tablet Take 2 tablets (1,000 mg total) by mouth 4 (four) times a day Commonly known as: ROBAXIN oxyCODONE 5 mg immediate release tablet Take 1 tablet (5 mg total) by mouth every 4 (four) hours as needed for pain for up to 20 doses For: pain Commonly known as: ROXICODONE polyethylene glycol 17 gram/dose bulk powder Take 17 g by mouth daily For: constipation Commonly known as: MIRALAX senna-docusate 8.6-50 mg Take 1 tablet by mouth 2 (two) times a day For: constipation Commonly known as: PERICOLACE traZODone 50 mg tablet Take 1 tablet (50 mg total) by mouth nightly Commonly known as: DESYREL Discharge Instructions: Other Instructions Call provider for: increased temperature -Temperature greater than 101 degrees F Call provider for: nausea, vomiting, diarrhea -If you have persistent nausea, vomiting or diarrhea that does not stop Call provider for: severe uncontrolled pain Call provider for: any other concerns or questions Call provider if: you feel dizzy, very tired or like you may faint Care Instructions: Precautions: cervical precautions Immobilization: Iroquois J Activity: Up ad guy Therapy: PT/OT for OOB/mobilization as tolerated Follow-Up: Patient has follow up scheduled on 10/16/[address] Rodriguez located at [facility] 12. Care Instructions: Incentive Spirometer - Continue to use your incentive spirometer Care Instructions: Shower -You may shower Discharge instructions WB Status: Non-weight bearing left lower extremity Immobilization: SLS Activity: Ambulate with assist Therapy: PT/OT for OOB/mobilization as tolerated. Precautions: None DVT ppx: Unilateral lower extremity injury on discharge transition to Aspirin 81mg BID x 14 days totake with food Wound Care: Maintain surgical dressing until follow up with orthopedi Sutures/Pearson: Will be removed 3 weeks after surgical date. (10/07/2023) Please include on discharge orders if patient is going to a facility. Diet: Regular Additional Needs: Bone health referral at discharge Follow-Up: Patient has follow up scheduled on 10/06/[address] Taylor located at [facility] Follow up Contact Information for Follow-ups No, Physician Relationship: PCP - General Next Steps: Follow up Future Appointments Date Time Provider Department Center 10/06/2023 8:00 AM Hammad Taylor MD [facility] 6A OS 10/16/2023 1:00 PM Caron Main MD [facility] 10/16/2023 3:50 PM Hans Rodriguez MD [facility] 11/13/2023 8:10 AM Hans Rodriguez MD [facility] All care plans discussed with rounding/operative attending: Hans Thompson Md, PhD I spent 30 minutes completing this hospital discharge. Penny Luna NP 09/29/23 CC: No, Physician Cosigned by Hans Thompson MD at 09/30/2023 11:29 AM CDT documented in this encounter Medications at Time of Discharge acetaminophen 500 mg capsuleIndicatio ns:Pain Take 2 capsules (1,000 mg total) by mouth every 6 (six) hours 09/29/2023 aspirin 81 mg chewable tabletIndication s:prevention of thrombosis Take 1 tablet (81 mg total) by mouth daily for 14 days 09/29/2023 gabapentin (NEURONTIN) 300 mg capsule Take [...] nightly 09/29/2023 documented as of this encounter Ordered Prescriptions Prescription Sig Dispense Quantity Refills Last Filled Start Date End Date traZODone (DESYREL) 50 mg tablet Take 1 tablet (50 mg total) by mouth nightly 09/29/2023 senna-docusate (PERICOLACE) 8.6-50 mgIndications:cons tipation Take 1 tablet by mouth 2 (two) times a day 09/29/2023 polyethylene glycol (MIRALAX) 17 gram/dose bulk powderIndications: constipation Take 17 g by mouth daily 09/29/2023 oxyCODONE (ROXICODONE) 5 mg immediate release tabletIndications: Pain Take 1 tablet (5 mg total) by mouth every 4 (four) hours as needed for pain for up to 20 doses 20 tablet 09/29/2023 methocarbamoL (ROBAXIN) 500 mg tablet Take 2 tablets (1,000 mg total) by mouth 4 (four) times a day 09/29/2023 lidocaine (ASPERCREME) 4 % adhesive patch,medicated Place 2 patches on the skin daily 09/30/2023 gabapentin (NEURONTIN) 300 mg capsule Take 1 capsule (300 mg total) by mouth 2 (two) times a day 09/29/2023 5 acetaminophen 500 mg capsuleIndications :Pain Take 2 capsules (1,000 mg total) by mouth every 6 (six) hours 09/29/2023 aspirin 81 mg chewable tabletIndications: prevention of thrombosis Take 1 tablet (81 mg total) by mouth daily for 14 days 09/29/2023 traZODone (DESYREL) 50 mg tablet Take 1 tablet (50 mg total) by mouth nightly 09/29/2023 4 senna-docusate (PERICOLACE) 8.6-50 mgIndications:cons tipation Take 1 tablet by mouth 2 (two) times a day 09/29/2023 polyethylene glycol (MIRALAX) 17 gram/dose bulk powderIndications: constipation Take 17 g by mouth daily 09/29/2023 4 methocarbamoL (ROBAXIN) 500 mg tablet Take 2 tablets (1,000 mg total) by mouth 4 (four) times a day 09/29/2023 4 lidocaine (ASPERCREME) 4 % adhesive patch,medicated Place 2 patches on the skin daily 09/30/2023 4 gabapentin (NEURONTIN) 300 mg capsule Take 1 capsule (300 mg total) by mouth 2 (two) times a day 09/29/2023 4 acetaminophen 500 mg capsuleIndications :Pain Take 2 capsules (1,000 mg total) by mouth every 6 (six) hours 09/29/2023 4 documented in this encounter Discharge Disposition Disposition Code Departure Means Destination Comment s Discharge to [facility] documented in this encounter Progress Notes * Caroline Jarquin, RN - 09/29/2023 1:45 PM CDT 09/29/23 1343 Discharge Summary Discharge Disposition senior living facility (short term care) Specify Facility [facility] Facility Contact Number [phone] Discharge Records Transfer Form Completed;Chart Copied Anticipated discharge level of care senior living facility Actual Discharge Level of Care senior living facility Does Actual Level of Care Match Care Team Recommendation? Yes Post Acute Care Plan Home Care Services N/A OP Services N/A DME N/A Post Acute Care Facility N/A Discharge Additional Assistance Does the patient need discharge transport arranged? Yes Type of Transportation Ambulance Has discharge transport been arranged? Yes Details of Transportation [facility] Trip #[id number] D/C Transport Anticipated Date 09/29/23 D/C Transport Anticipated Time 1630 Discharge Transportation Communication Mode of transport has been discussed with the patient/family. All are agreeable to the plan and understand their responsibilities to ensure the safe transfer. No further CM/SW intervention is anticipated at this time. Post Discharge Care Provider Post Discharge Care Plan DC Summary has been faxed to next level of care provider (see Follow Up Providers) 09/29/23 1300 Communications Important Message from Medicare notice given to patient? Yes Per medical team, patient is medically stable for discharge at this time. Patient has been [facility]. CM spoke with the patient/family, admissions, medical team, and RNregarding discharge planning, and all are agreeable to discharge. Post-acute care transfer packet completed and will be sent with the patient. RN provided with report number to nurses station. Room #515A provided by facility. Mode of transport has been discussed with the patient/family, MD, nursing staff. All are agreeable to plan and understand their responsibilities to ensure the safe transfer. Patient/family informed patient may require ambulance transport. pmo project manager informed patient/family that even if the patient's insurance benefit includes ambulance transport, it may not cover the full cost of the transportation. The patient may be responsible for any [id number] cost, includingmileage beyond the nearest appropriate facility. Patient/family voiced understanding. IM letter completed with patient at bedside. Patient were informed of the planned discharge date, the date the beneficiary's financial liability begins, the beneficiary's appeal rights, and how and when to initiate an appeal. Patient were provided a copy of the IM letter and IM letter was placed inunit???s designated medical record bin to be uploaded into the patient???s chart. Patient verbalized understanding IM letter right. CM confirmed with [facility] liaison, that bed was available and collected the following information: Report: [phone] (500 ashley RN) Room: [facility] CM relayed all information to the team. CM faxed DC summary to facility as requested. CM noted EMS scheduled pickup time to liaison. All parties agreeable to DC. MINESH Vernon system configuration specialist * Naheed Cruz MD - 09/29/2023 8:40 AM CDT Images from the original note were not included. [facility] Service- Floor Daily Progress Note Admit: 09/16/2023 2:23 AM Date: September 29, 2023 Length of Stay: 13 Attending: Ibrahima Middleton MD POD:10 Days Post-Op Procedure(s): FUSION CERVICAL - POSTERIOR WITH INSTRUMENTATION C2-7; C3-6 Decompression; C4-5 Foraminotomies Subjective History: TRAUMA C - RED 78 y.o. female denies PMH s/p GLF. #L distal tib/fib fx #C3-C4 spinal stenosis Procedures: 09/15: L tib fib IMN 09/19: PSF C2-C7 + C3-C6 laminectomies Edited by: Ayesha Liu MD at 09/21/2023 0605 Interval History: No acute events overnight. Patient afebrile with stable vital signs No new interval labs Tolerating diet and activity with well controlled pain UOP = 650 Pending PMNR c/s Pending SNF placement Objective Medications: Current Facility-Administered Medications: acetaminophen (TYLENOL) tablet 1,000 mg, 1,000 mg, oral, Q6H, Amy Lara NP, 1,000 mg at 09/29/23 1207 benzocaine-menthoL (CHLORASEPTIC) lozenge 1 lozenge, 1 lozenge, mouth/throat, Q2H PRN, Xiao Gomez MD, 1 lozenge at 09/24/23 1102 bisacodyL (DULCOLAX) suppository 10 mg, 10 mg, rectal, BID PRN, Klever Phillips MD, 10 mg at09/23/23 1248 gabapentin (NEURONTIN) capsule 300 mg, 300 mg, oral, BID, Klever Phillips MD, 300 mg at 09/29/23 0814 heparin 5,000 unit/mL injection 5,000 Units, 5,000 Units, subcutaneous, Q8H [facility], Naheed Cruz MD, 5,000 Units at 09/29/23 0536 lidocaine (ASPERCREME) 4 % patch 2 patch, 2 patch, transdermal, Q24H, Hannah Chun NP, 2 patch at 09/26/23 1318 methocarbamoL (ROBAXIN) tablet 1,000 mg, 1,000 mg, oral, QID, Klever Phillips MD, 1,000 mg at 09/29/23 1207 naloxone (NARCAN) 0.4 mg/mL injection 0.04-0.4 mg, 0.04-0.4 mg, intravenous, Q10 Min PRN, Gwendolyn Bee MD ondansetron (ZOFRAN) injection 4 mg, 4 mg, intravenous, Q6H PRN, Gwendolyn Bee MD oxyCODONE (ROXICODONE) tablet 5 mg, 5 mg, oral, Q4H PRN, Klever Phillips MD, 5 mg at 09/29/23 1208 polyethylene glycol (MIRALAX) packet 17 g, 17 g, oral, Daily, Hannah Chun NP, 17 g at 09/25/23 0900 senna-docusate (PERICOLACE) 8.6-50 mg per tablet 1 tablet, 1 tablet, oral, BID, Marcos [facility] MD, 1 tablet at 09/29/23 0814 sodium chloride (OCEAN) 0.65 % nasal spray 2 spray, 2 spray, each nostril, Q2H PRN, Klever Phillips MD, 2 spray at 09/28/23 0524 sodium chloride 0.9% flush 0.5-20 mL, 0.5-20 mL, intra-catheter, Q8H LILA, Marcos [facility] MD, 10 mL at 09/29/23 0543 sodium chloride 0.9% flush 0.5-20 mL, 0.5-20 mL, intra-catheter, PRN, Marcos [facility] MD traZODone (DESYREL) tablet 50 mg, 50 mg, oral, Nightly, Hannah Chun NP, 50 mg at 003 Past Medical: No past medical history on file. Surgical History: History reviewed. No pertinent surgical history. Is&Os: I/O last 2 completed shifts: In: 1250 [P.O.:1250] Out: 650 [Urine:650] I/O this shift: In: 60 [P.O.:60] Out: 600 [Urine:600] Physical Exam: 24hr Min/Max: Temp Min: 36.7 ??C (98.1 ??F) Max: 37.4 ??C (99.3 ??F) Pulse Min: 99 Max: 122 BP Min: 110/64 Max: 140/87 Resp Min: 14 Max: 18 SpO2 Min: 93 % Max: 97 % Physical Exam Constitutional: no acute distress, awake/conversant, pleasant HEENT: Iroquois J collar in place; normocephalic/atraumatic CV: tachycardic, palpable radial pulses bilaterally, warm and well perfused Resp: breathing unlabored on room air Abd: soft, non-tender, non-distended. No rebound or guarding Ext: warm, moves all extremities, no cyanosis/edema, LLE in orthopedic dressing 4/5 bilateral shoulder abduction, 4/5 elbow flexion Neuro: alert and oriented to person/place/date, motor/sensory grossly intact Labs/Imaging: Recent Labs Lab Units 09/24/23211509/23/23 1604 09/22/232003 WBC K/cumm 12.2* 13.9* 10.6* HEMOGLOBIN g/dL 9.2* 9.5* 8.4* HEMATOCRIT % 29.1* 30.3* 27.3* PLATELETS K/cumm 521* 425* 352 Recent Labs Lab Units 09/25/23 2251 09/25/23 1406 09/25/23 0725 09/24/23 2116 09/23/23 1604 SODIUM mmol/L 137 -- -- 140 141 POTASSIUM PLASMA mmol/L 4.3 -- -- 4.5 4.5 CHLORIDE mmol/L 100 -- -- 104 104 CO2 mmol/L 30 -- -- 29 32 BUN SERUM mg/dL 12 -- -- 10 10 CREATININE mg/dL 0.49* -- -- 0.46* 0.45* GLUCOSE mg/dL 102 -- -- 125 121 POC GLUCOSE MONITOR mg/dL -- 127 127 -- -- CALCIUM mg/dL 8.5 -- -- 8.5 8.4* XR Spine Cervical 2 or 3 Views Result Date: 09/24/2023 1. New posterior instrumented fusion from C2 to C7 with posterior decompression of C3-C6. Dictated by: Juanito Almeida MD PHD The radiology attending physician has personally reviewed this study, and had reviewed and/or edited this written report and agrees with it. Electronically signed by: Nathaniel Christianson MD I have independently reviewed and interpreted all relevant lab and radiographic data. Assessment/Plan Trauma Surgical Assessment and Plan Electrolyte imbalance Assessment & Plan - 09/17: Mg 1.7, Phos 2.9, K 3.1 - Magnesium and KPhos treated - 09/17: Mg 1.7, Phos 2.2, K 3.7 - Magnesium and KPhos treated - Monitor electrolytes 09/25: Lytes stable: DC'ed daily labs Weakness of both arms Assessment & Plan - Pe patient, weakness started after fall. [...] DVT; (+) superficial vein thrombus - 09/25: Iroquois J and upright cspine Xrs completed - 09/26: BUE motor exam stable. Cont PT/OT - 09/28: Doing well, tolerating diet and activity with well controlled pain; Iroquois J in place; PMNR c/s for recs Pulmonary nodule Assessment & Plan - CT C/A/P (09/15): Indeterminate right lower lobe pulmonary nodule with broad base along the pleura.Recommend comparison with prior imaging if available to document stability. If no prior imaging is available, recommend follow-up CT in 6-12 months. Discharge planning issues Assessment & Plan 09/25: pending SNF placement. Seen by PT/OT Patient is medically stable for discharge, SW/CM updated. Discharge pending facility acceptance 09/27 Patient is medically stable for discharge, SW/CM updated. Discharge pending patient daughter to select a facility from the list of accepting facilities for disposition. Encounter for medication review Assessment & Plan - No past medical history, takes no medications at home Acute pain due to trauma Assessment & Plan - Tylenol 1000 mg q6h - Robaxin 1000 mg qid - Oxycodone 5 mg q4h PRN -gabapentin 300 mg bid - Lidocaine patch daily Bowel regimen senna , Miralax Closed fracture of shaft of left tibia, unspecified fracture morphology, initial encounter Assessment & Plan #Left tib fib fracture - Orthopedic consult - s/p OR 09/15 IMN - NWB LLE - Maintain SLS - PT/OT - Pain control - Bone health referral at discharge FEN: These fluid and electrolyte abnormalities are being treated, evaluated or monitored: No fluid or electrolyte disorders Lines/Drains/Tubes: PIVs DVT Prophylaxis: Heparin Diet: Adult Diet Regular Activity: As tolerated, NWB LLE GI Prophylaxis: None Code Status: Full Code All care plans discussed with rounding/operative attending: Jay Cruz MD Cosigned by Hans Thompson MD at 09/30/2023 11:39 AM CDT Associated attestation - Hans Thompson MD - 09/30/2023 11:39 AM CDT I have personally seen and examined this patient on the date of service as documented on the Resident note and have reviewed and confirmed the history, physical exam, laboratory,radiographic data, assessment and plan as documented by the resident. Hans Thompson MD Section of Acute and Critical Care Surgery * Ramon Meléndez - 09/28/2023 7:18 PM CDT Spiritual Care Ramon Meléndez 09/28/23 [id number] 09/28/23 1900 Time Spent Start Time 1820 Stop Time 1835 Time Calculation (min) 15 min Patient Spiritual Assessment Spirituality Assessed Yes Christianity Affiliation Islam Active in Orthodoxy Yes Clinical Encounter Type Visited With Patient and family together Response Type Routine visit Routine Visit Follow-up Reason for visit Support Outcomes and Progress Aligning care with patient's values Achieved Preserve dignity and respect Achieved Demonstrating care and respect Achieved Arielle affirmation Achieved Establish rapport and connectedness Achieved Sense of peace Achieved Interventions Interventions Offer emotional support;Offer spiritual/evangelical support;Prayer;Active listening * Carmencita Funez - 09/28/2023 2:26 PM CDT Physical Therapy Progress Note NOTE: This is a summary note of the moran components of the treatment session. For full details, review chart for all flowsheets documented on by this physical therapy clinician on this date. Vital signs documented in vital signs flowsheet. Care plan progress documented in Care Plan Activity. For questions, please review the treatment team and contact the PT or TURPENTINE FARMER currently assigned to this patient. If a physical therapy clinician is not assigned to this patient, please call [phone]. 09/28/23 1426 PT Last Visit Session Type Treatment PT Received On 09/28/23 Safe Environment Arm band checked;Patient found in supine;Session completed bedside;Gait belt utilized for all out of bed mobility Subjective Agreeable to Therapy Family/Caregiver Present No Precautions Precautions Cervical spine;Fall risk Weight Bearing Restrictions Yes RLE Weight Bearing WBAT LLE Weight Bearing NWB Braces/Orthoses Cervical collar;Other ([place], SLS LLE) Precaution Handout Issued No Precaution Comments PT reviewd precautions with pt who verbalized understanding Activity Tolerance Activity Tolerance Comments Nancy Pain Assessment Pain Assessment 0-10 Pain Score 3 Pain Type Surgical pain Pain Location Leg Pain Orientation Right Cognition Arousal/Alertness Alert;Appropriate responses to stimuli Orientation Oriented X4 (person, place, time, situation) Following Commands Follows all commands and directions without difficulty Compliance/Behavior Easy to engage Balance Balance Yes Static Sitting Balance Static Sitting-Balance Support Bilateral upper extremity supported;Feet unsupported;Posterior support (posterior support from PT) Static Sitting-Sitting Surface Bed Static Sitting-Level of Assistance Maximum assistance Static Sitting-Comment/# of Minutes assist for maintaining upright position in sitting. Verbal cuesfor weight shifting. Pt able to weight shift with cues but unable to maintain shift without assist from PT Static Standing Balance Static Standing-Balance Support Bilateral upper extremity supported (on 2 PT) Static Standing-Standing Surface Floor Static Standing-Level of Assistance Maximum assistance (of 2) Static Standing-Comment/# of Minutes assist to maintain upright positioning and maintian NWB LLE. Bed Mobility Bed Mobility Yes Bed Mobility 1 Bed Mobility From 1 Supine Bed Mobility Type 1 To Bed Mobility to 1 Edge of bed Level of Assistance 1 Maximum Assist;Moderate verbal cues Bed Mobility Comments 1 assist to maneauver B LE and force production to raise trunk off bed. Assist to scoot forward to EOB. Verbal cues for technique and hand positioning. Pt required assist for hand placement 2/2 decreased ROM in BUE Transfers Transfer Yes Transfer 1 Transfer From 1 Bed;Sit Transfer Type 1 To Transfer to 1 Chair with arms;Sit Technique 1 Stand pivot;To right Transfer Device 1 No device;Hand held assist (x2 PT) Transfer Level of Assistance 1 Maximum Assist;Moderate verbal cues (of 2) Trials/Comments 1 assist for force production, steadying to maintain upright positioning, pivot andassist to maintain NWB on LLE during pivot. Verbal cues for technique and positioning Transfers 2 Transfer From 2 Sit;Chair with arms Transfer Type 2 To and from Transfer to 2 Stand Technique 2 Sit to stand;Stand to sit Transfer Device 2 No device;Hand held assist (of 2 PT) Transfer Level of Assistance 2 Maximum Assist;Moderate verbal cues (of 2) Trials/Comments 2 2 STS performed. Assist with force production and maintaining upright positioning. Assist to control descent into chair. Verbal cues for positioning Ambulation Functional Ambulation Category 0 Ambulation No Basic Mobility - 6 Click How much difficulty does the patient have: Turning over in bed 2 How much difficulty does the patient currently have: Sitting down and standing up from a chair witharms? 2 How much difficulty does the patient have: Moving from lying on back to sitting on the side of the bed? 2 How much difficulty does the patient have: Moving to and from a bed to a chair including wheelchair? 2 How much help does the patient currently need: Walk in hospital room? 1 How much help from another person does the patient currently need: Climbing 3-5 steps with a railing? 1 Total 6 Click Score (range 6-24) 10 Score Interpretation 28.13 Safe Environment End of Therapy Session Safe Environment End of Therapy Session Patient left in recliner;RN notified;Chair alarm in place and activated;Call light within reach;Overbed table within reach Assessment Prognosis Good Problem List Decreased strength;Gait deviations;Decreased range of motion;Decreased endurance;Impaired balance;Decreased mobility;Pain Barriers to Discharge Current Mobility Status;Decreased caregiver support;Home environment challenged Plan Plan Continue with current plan;If this is the last note, consider this the discharge summary Recommendation/Plan PT Recommendation/Plan (S) Residential Facility Patient at high risk for Falls;Readmission;Injury due to decreased ability to care for self;Injury due to reduced functional status;Injury due to balance deficits;Injury at home as patient has not returned to prior level of function;Prolonged dependence for self care tasks Recommend SNF due to Risk of injury at home;Unable to safely care for self in the home;Skilled therapy needed to address functional deficits;Skilled therapy needed for patient to return to prior level of independence;Skilled therapy needed to address care for self in the home PT Recommendation/Plan Comments pt agreeable with PT POC PT Frequency during current admission 5-7x/wk Treatment/Interventions during current admission Balance Training;Bed mobility;Positioning;Range ofmotion;Strengthening;Therapeutic activity;Therapeutic exercise;Transfer training Progress during current admission Progressing toward goals PT - Next Appointment 09/29/23 Time Calculation Start Time 1426 Stop Time 1520 Time Calculation (min) 54 min Multi-Disciplinary Problems (from Physical Therapy) Active Problems Problem: Mobility Start Date: 09/28/23 Goal Start Date Expected End Date End Date LTG - Patient will ambulate household distance with LRAD 09/28/23 12/12/23 -- Problem: Transfers Start Date: 09/28/23 Goal Start Date Expected End Date End Date STG - Transfer from bed to chair Mod A with LRAD 09/28/23 10/12/23 -- Goal Start Date Expected End Date End Date STG - Patient to transfer to and from sit to supine min A 09/28/23 10/12/23 -- Goal Start Date Expected End Date End Date STG - Patient will transfer sit to and from stand Mod A 09/28/23 10/12/23 -- Problem: PT Misc Start Date: 09/28/23 Goal Start Date Expected End Date End Date PT STG - Patient and caregivers will participate in and demonstrate understanding of therapeutic exercise and safe mobility strategies to improve independence with functional mobility. 09/28/23 10/12/23 -- Cosigned by Daniel Nichole PT at 09/28/2023 5:24 PM CDT * Penny Luna NP - 09/28/2023 10:55 AM CDT Images from the original note were not included. Trauma C Service - Continuation of Care Note Disposition update from DCAM meetings: pt has many accepting facilities, daughter need to select a facility so pt can discharge. Per CM daughter feels pt can go to [facility] with current injuries and eval from therapy pt recommended for SNF with trauma team in agreement. CM will reach out to daughter today, All care plans discussed with rounding/operative attending: Hans Thompson Md, PhD My total encounter time on 09/28/2023 was 15 minutes which was spent in the management of traumatic injuries performing the activities documented in the note. This includes time spent prior to the visit and after the visit in direct care of the patient. This time does not include time spent in any separately reportable services. Penny Luna NP Section of Acute and Critical Care Surgery * An Youngblood, IFEANYI - 09/28/2023 10:04 AM CDT Occupational Therapy Occupational Therapy Progress Note NOTE: This is a summary note of the moran components of the treatment session. For full details, review chart for all flowsheets documented on by this occupational therapy clinician on this date. Vitalsigns documented in vital signs flowsheet. Care plan progress documented in Care Plan Activity. For questions, please review the treatment team and contact the occupational therapist currently assigned to this patient. If an occupational therapist is not assigned to this patient, please call [phone]. 09/28/23 1004 General Session Type Treatment OT Received On 09/28/23 Safe Environment Arm band checked;Patient found in supine;Session completed bedside;Gait belt not utilized, see comment (no OOB mobility) Subjective Agreeable to Therapy Family/Caregiver Present No Precautions Precautions Cervical spine;Fall risk Weight Bearing Restrictions Yes LLE Weight Bearing NWB Braces/Orthoses Cervical collar;Other ([place]; SLS LLE) Precaution Handout Issued No Precaution Comments verbally reviewed prior to mobility Pain Assessment Pain Assessment 0-10 Pain Score 9 Pain Location Leg Pain Orientation Left Pain Interventions RN Notified (in room, addressing) Static Sitting Balance Static Sitting-Balance Support Bilateral upper extremity supported;Feet supported Static Sitting-Sitting Surface Bed Static Sitting-Level of Assistance Moderate assistance Static Sitting-Comment/# of Minutes mod A for truncal support, LOB in all planes Dynamic Sitting Balance Dynamic Sitting-Balance Support Bilateral upper extremity supported;Feet supported Dynamic Sitting-Balance Lateral lean;Forward lean Dynamic Sitting-Sitting Surface Bed Dynamic Sitting-Level of Assistance Maximum assistance Dynamic Sitting-Comments max A to maintain balance w/ dynamic weight-shifting ADL ADLS (WDL) X Feeding Feeding: Where assessed Supine, bed Feeding: Equipment utilized Built up utensils Feeding: Level of assistance Maximum Assist Feeding: Assistance with Manipulation of containers;Beverage management;Cutting food;Balance;Safety Grooming Grooming: Where assessed Supine, bed Grooming: Level of assistance Maximum Assist Grooming: Assistance with Teeth care;Manipulation of containers;Reaching all areas of head/face;Balance;Safety LE Dressing LE Dressing: Where assessed Supine, bed LE Dressing: Level of assistance Dependent Toileting Toileting: Where assessed Supine, bed Toileting: Level of assistance Dependent Bed Mobility 1 Bed Mobility From 1 Supine Bed Mobility Type 1 To and from Bed Mobility to 1 Rolling right;Rolling left Level of Assistance 1 Maximum Assist Bed Mobility Comments 1 max A force production, LE management, controlled descent Bed Mobility 2 Bed Mobility From 2 Supine Bed Mobility Type 2 To and from Bed Mobility to 2 Edge of Bed Level of Assistance 2 Maximum Assist Bed Mobility Comments 2 via logroll; max A force production, LE management, trunk elevation/descent Transfers Transfer No (increased pain sitting at EOB, pt requests to return to supine) Cognition Arousal/Alertness Alert;Appropriate responses to stimuli Attention Span Attends with cues to redirect Memory Decreased short term memory (per SBT) Current communication Appears Intact Orientation Oriented X4 (person, place, time, situation) Following Commands Follows all commands and directions without difficulty Safety Judgment Decreased awareness of need for assistance Awareness of Errors Assistance required to identify errors made;Assistance required to correct errors made Insight Decreased awareness of deficits Problem Solving Assistance required to identify errors made;Assistance required to generate solutions;Assistance required to implement solutions Compliance/Behavior Easy to engage Perseveration Not present Other Comments Comments Pt would continue to benefit from skilled OT to increase strength, endurance and indep with ADLs. Daily Activity - 6 Clicks Putting on and taking off regular lower body clothing 1 Bathing 1 Toileting 1 Putting on and taking off upper body clothing 1 Personal Grooming 2 Eating Meals 2 Total Score (range 6-24) 8 Score Interpretation 22.86 Safe Environment End of Therapy Session Safe Environment End of Therapy Session Patient left supine in bed;Bed alarm in place and activated;RN notified;Call light within reach;Overbed table within reach Assessment Problem List Decreased upper extremity range of motion;Decreased upper extremity strength;Decreasedsafe judgment during ADL;Decreased cognition;Decreased endurance;Visual deficit;Decreased functional mobility;Decreased ADL independence;Decreased IADL independence;Decreased UE function;Decreased trunk control for functional activities Barriers to Discharge Current Mobility Status;Current ADL Status;Decreased caregiver support;Cognition;Decreased safety awareness Barrier Comments fall risk Plan Plan Continue with current plan;If this is the last note, consider this the discharge summary Recommendation/Plan OT Recommendation (S) Residential Facility Patient at high risk for Falls;Readmission;Injury due to decreased ability to care for self;Injury due to reduced functional status;Injury due to impaired cognition;Injury due to balance deficits;Injury at home as patient has not returned to prior level of function;Developing impaired skin integrity;Prolonged dependence for self care tasks;Developing secondary complications: poor health management;Difficulty maintaining orthopedic restrictions Recommend SNF due to Risk of injury at home;Unable to safely care for self in the home;Skilled therapy needed to address care for self in the home;Skilled therapy needed to address functional deficits;Skilled therapy needed for patient to return to prior level of independence OT Frequency during current admission 5-7x/wk Treatment/Interventions during current admission ADL/IADL retraining;Balance Training;Bed mobility;Cognitive retraining;Compensatory technique education;Endurance training;Functional activity;Functional mobility training;Functional transfer training;Parent/caregiver training and education;Strengthening;Therapeutic activity;Therapeutic exercise Progress during current admission Slow progress, medical status limitations OT - Next Appointment 09/29/23 Time Calculation Start Time 1004 Stop Time 1047 Time Calculation (min) 43 min Multi-Disciplinary Problems (from Occupational Therapy) Active Problems Problem: Dressing Upper Extremities Start Date: 09/18/23 Goal Start Date Expected End Date End Date STG - Patient will dress upper body 09/18/23 10/05/23 -- Goal Details: With Min A Problem: Grooming Start Date: 09/18/23 Goal Start Date Expected End Date End Date STG - Patient will complete grooming 09/18/23 10/05/23 -- Goal Details: Seated EOB with Min A Problem: Transfers Start Date: 09/18/23 Goal Start Date Expected End Date End Date STG - Patient will perform toilet transfer 09/18/23 10/05/23 -- Goal Details: With Mod A Problem: OT Misc Start Date: 09/18/23 Goal Start Date Expected End Date End Date OT LTG - Misc 1 09/18/23 10/28/23 -- Goal Details: Pt. Will perform all ADLs with Mod (I) using AE/adaptive device PRN. * Naheed Cruz MD - 09/28/2023 6:36 AM CDT Images from the original note were not included. [facility] Trauma C Service- Floor Daily Progress Note Admit: 09/16/2023 2:23 AM Date: September 28, 2023 Length of Stay: 12 Attending: Ibrahima Middleton MD POD:9 Days Post-Op Procedure(s): FUSION CERVICAL - POSTERIOR WITH INSTRUMENTATION C2-7; C3-6 Decompression; C4-5 Foraminotomies Subjective History: TRAUMA C - RED 78 y.o. female denies PMH s/p GLF. #L distal tib/fib fx #C3-C4 spinal stenosis Procedures: 09/15: L tib fib IMN 09/19: PSF C2-C7 + C3-C6 laminectomies Edited by: Ayesha Liu MD at 09/21/2023 0605 Interval History: No acute events overnight. Patient afebrile with stable vital signs No new interval labs Tolerating diet, voiding UOP = 1200 Pending SNF placement Objective Medications: Current Facility-Administered Medications: acetaminophen (TYLENOL) tablet 1,000 mg, 1,000 mg, oral, Q6H, Amy Lara NP, 1,000 mg at 09/28/23 0510 benzocaine-menthoL (CHLORASEPTIC) lozenge 1 lozenge, 1 lozenge, mouth/throat, Q2H PRN, Xiao Gomez MD, 1 lozenge at 09/24/23 1102 bisacodyL (DULCOLAX) suppository 10 mg, 10 mg, rectal, BID PRN, Klever Phillips MD, 10 mg at09/23/23 1248 gabapentin (NEURONTIN) capsule 300 mg, 300 mg, oral, BID, Klever Phillips MD, 300 mg at 09/27/23 2053 heparin 5,000 unit/mL injection 5,000 Units, 5,000 Units, subcutaneous, Q8H LILA, Naheed Cruz MD, 5,000 Units at 09/28/23 0510 HYDROmorphone (DILAUDID) injection 0.2 mg, 0.2 mg, intravenous, Q4H PRN, Sterling Patrick MD, 0.2 mg at 09/27/23 0226 lidocaine (ASPERCREME) 4 % patch 2 patch, 2 patch, transdermal, Q24H, Hannah Chun NP, 2 patch at 09/26/23 1318 methocarbamoL (ROBAXIN) tablet 1,000 mg, 1,000 mg, oral, QID, Klever Phillips MD, 1,000 mg at 09/27/23 2130 naloxone (NARCAN) 0.4 mg/mL injection 0.04-0.4 mg, 0.04-0.4 mg, intravenous, Q10 Min PRN, Gwendolyn Bee MD ondansetron (ZOFRAN) injection 4 mg, 4 mg, intravenous, Q6H PRN, Gwendolyn Bee MD oxyCODONE (ROXICODONE) tablet 5 mg, 5 mg, oral, Q4H PRN, Klever Phillips MD, 5 mg at 09/27/23 1509 polyethylene glycol (MIRALAX) packet 17 g, 17 g, oral, Daily, Hannah Chun NP, 17 g at 09/25/23 0900 senna-docusate (PERICOLACE) 8.6-50 mg per tablet 1 tablet, 1 tablet, oral, BID, Marcos Salazar MD, 1 tablet at 09/27/232052 sodium chloride (OCEAN) 0.65 % nasal spray 2 spray, 2 spray, each nostril, Q2H PRN, Klever Phillips MD, 2 spray at 09/28/23 0524 sodium chloride 0.9% flush 0.5-20 mL, 0.5-20 mL, intra-catheter, Q8H LILA, Marcos Salazar MD, 10 mL at 09/28/23 0514 sodium chloride 0.9% flush 0.5-20 mL, 0.5-20 mL, intra-catheter, PRN, Marcos Salazar MD traZODone (DESYREL) tablet 50 mg, 50 mg, oral, Nightly, Hannah Chun NP, 50 mg at 053 Past Medical: No past medical history on file. Surgical History: History reviewed. No pertinent surgical history. Is&Os: I/O last 2 completed shifts: In: 270 [P.O.:270] Out: 825 [Urine:825] I/O this shift: In: - Out: 575 [Urine:575] Physical Exam: 24hr Min/Max: Temp Min: 36.6 ??C (97.8 ??F) Max: 36.9 ??C (98.4 ??F) Pulse Min: 82 Max: 123 BP Min: 104/58 Max: 129/82 Resp Min: 16 Max: 20 SpO2 Min: 94 % Max: 98 % Physical Exam Constitutional: no acute distress, awake/conversant, pleasant HEENT: [place] collar in place; normocephalic/atraumatic CV: tachycardic, palpable radial pulses bilaterally, warm and well perfused Resp: breathing unlabored on room air Abd: soft, non-tender, non-distended. No rebound or guarding Ext: warm, moves all extremities, no cyanosis/edema, LLE in orthopedic dressing 4/5 bilateral shoulder abduction, 4/5 elbow flexion Neuro: alert and oriented to person/place/date, motor/sensory grossly intact Labs/Imaging: Recent Labs Lab Units 09/24/23211509/23/23 1604 09/22/232003 WBC K/cumm 12.2* 13.9* 10.6* HEMOGLOBIN g/dL 9.2* 9.5* 8.4* HEMATOCRIT % 29.1* 30.3* 27.3* PLATELETS K/cumm 521* 425* 352 Recent Labs Lab Units 09/25/23 2251 09/25/23 1406 09/25/23 0725 09/24/23211509/23/23 1604 SODIUM mmol/L 137 -- -- 140 141 POTASSIUM PLASMA mmol/L 4.3 -- -- 4.5 4.5 CHLORIDE mmol/L 100 -- -- 104 104 CO2 mmol/L 30 -- -- 29 32 BUN SERUM mg/dL 12 -- -- 10 10 CREATININE mg/dL 0.49* -- -- 0.46* 0.45* GLUCOSE mg/dL 102 -- -- 125 121 POC GLUCOSE MONITOR mg/dL -- 127 127 -- -- CALCIUM mg/dL 8.5 -- -- 8.5 8.4* XR Spine Cervical 2 or 3 Views Result Date: 09/24/2023 1. New posterior instrumented fusion from C2 to C7 with posterior decompression of C3-C6. Dictated by: Juanito Almeida MD PHD The radiology attending physician has personally reviewed this study, and had reviewed and/or edited this written report and agrees with it. Electronically signed by: Nathaniel Christianson MD I have independently reviewed and interpreted all relevant lab and radiographic data. Assessment/Plan Trauma Surgical Assessment and Plan Electrolyte imbalance Assessment & Plan - 09/17: Mg 1.7, Phos 2.9, K 3.1 - Magnesium and KPhos treated - 09/17: Mg 1.7, Phos 2.2, K 3.7 - Magnesium and KPhos treated - Monitor electrolytes 09/25: Lytes stable: DC'ed daily labs Weakness of both arms Assessment & Plan - Pe patient, weakness started after fall. No weakness of arms prior to fall - No pain or resistance with passive movement. - CT c spine without injury, however spinal cord and neuroforaminal stenosis noted on CT - MRI: Severe high-grade spinal canal stenosis at C3-C4 level secondary to congenitally narrowed spinal canal, multilevel disc osteophyte complex, and ligamentum flavum thickening. Cord edema noted at the C3-C4 level - 09/17: Ortho Spine consulted - 09/18: Operative intervention recommended, patient discussing with family and spine team - PT/OT consult - Elevate arms for swelling - 09/19: OR w/ spine: posterior cervical fusion+ instrumentation from C2-7; C3-6 laminectomies, C4-5 bilateral foraminotomies - In SICU on [place] for MAP augmentation 80-95 for 48h postop - - 09/22: MAP goals liberalized; off pressor support - 09/23: Transferred to the floor; hemodynamically stable - 09/24: RUE US for localized swelling: (-) for DVT; (+) superficial vein thrombus - 09/25: [x] [place] and [x]upright cspine XRs - 09/26: BUE motor exam stable. Cont PT/OT Pulmonary nodule Assessment & Plan - CT C/A/P (09/15): Indeterminate right lower lobe pulmonary nodule with broad base along the pleura.Recommend comparison with prior imaging if available to document stability. If no prior imaging is available, recommend follow-up CT in 6-12 months. Discharge planning issues Assessment & Plan 09/25: pending SNF placement. Seen by PT/OT Encounter for medication review Assessment & Plan - No past medical history, takes no medications at home Acute pain due to trauma Assessment & Plan - Tylenol 1000 mg q6h - Robaxin 500 mg TID, increased to 750 QID on 09/18 - Oxycodone 5 mg q4h PRN Closed fracture of shaft of left tibia, unspecified fracture morphology, initial encounter Assessment & Plan #Left tib fib fracture - Orthopedic consult - s/p OR 09/15 IMN - NWB LLE - Maintain SLS - PT/OT - Pain control - Bone health referral at discharge FEN: These fluid and electrolyte abnormalities are being treated, evaluated or monitored: No fluid or electrolyte disorders Lines/Drains/Tubes: PIVs DVT Prophylaxis: Heparin Diet: Adult Diet Regular Activity: As tolerated, NWB LLE GI Prophylaxis: None Code Status: Full Code All care plans discussed with rounding/operative attending: Jay Cruz MD Cosigned by Hans Thompson MD at 09/29/2023 11:52 AM CDT Associated attestation - Hans Thompson MD - 09/29/2023 11:52 AM CDT I have personally seen and examined this patient on the date of service as documented on the Resident note and have reviewed and confirmed the history, physical exam, laboratory,radiographic data, assessment and plan as documented by the resident. Hans Thompson MD Section of Acute and Critical Care Surgery * Nette Middleton MD PhD - 09/28/2023 6:21 AM CDT Orthopaedic Spine Service Daily Progress Note Admit Date: 09/16/2023 Hospital Day: 12 [facility] Dx: C/f cervical myelopathy Relevant PMHx: None per patient Procedure(s): 09/20/2023 - C2-7 PSF w/ C3-6 decompression and bilateral C4-5 foraminotomies Interval History: 09/28/23: NAEON. Tachy to 120s, o/w AFVSS overnight. No new labs. Exam: RUE weaker than LUE. Alert and conversant. No facial asymmetry. RUE 4-/5 deltoid/biceps/triceps/WF/WE/IO, LUE 4-/5 deltoid, 4/5biceps/triceps/WF/WE/IO. SILT throughout. RLE IP/Q 3/5 (limited by participation), o/w 5/5, LLE limited by splint. SILT throughout BLE. PT/OT recommending SNF. Plan: Q4h neurochecks. PT/OT. Dispo perprimary. Pending referrals/acceptance to SNF. Objective Vitals: 24hr Min/Max: Temp Min: 36.6 ??C (97.8 ??F) Max: 36.9 ??C (98.4 ??F) Pulse Min: 82 Max: 123 BP Min: 104/58 Max: 129/82 Resp Min: 16 Max: 20 SpO2 Min: 94 % Max: 98 % I/O last 2 completed shifts: In: 270 [P.O.:270] Out: 825 [Urine:825] I/O this shift: In: - Out: 575 [Urine:575] Physical Exam: Gen: no acute distress Neuro: A&Ox3 Dressing: clean/dry/intact Wound Vac(s): Not applicable Hemo Vac(s): Not applicable Motor: Muscle Strength Right Left Shoulder abduction (C5) 4-/5 4-/5 Elbow flexion (C5/6) 4-/5 4/5 Elbow extension (C7) 4-/5 4/5 Wrist extension (C6) 4-/5 4/5 Wrist flexion (C7) 4-/5 4/5 Wedding Consultant (C8) 4-/5 4/5 Interosseous of hand (T1) 4-/5 4/5 Iliopsoas (L2/3) 3/5 Splint Quadriceps (L3/4) 5/5 Splint Tibialis anterior (L4/5) 5/5 Splint Extensor hallicus longus (L5) 5/5 Splint Gastrocsoleus complex (S1) 5/5 Splint Sensation Left upper extremity: SILT C5 to T1 dermatomes. Right upper extremity: SILT C5 to T1 dermatomes. Left lower extremity: SILT L2 to S1 dermatomes. Right lower extremity: SILT L2 to S1 dermatomes. Vascular: Bilateral Upper Extremity: 2+ radial pulse, fingers WWP Bilateral Lower Extremity: 2+ DP pulse, toes WWP Lab/Diagnostic Review: Recent Labs Lab Units 09/25/23 2251 09/25/23 0725 09/24/23 2116 SODIUM mmol/L 137 -- 140 POTASSIUM PLASMA mmol/L 4.3 -- 4.5 CHLORIDE mmol/L 100 -- 104 CO2 mmol/L 30 -- 29 ANIONGAP mmol/L 7 -- 7 GLUCOSE mg/dL 102 -- 125 POC GLUCOSE MONITOR -- < > -- BUN SERUM mg/dL 12 -- 10 CREATININE mg/dL 0.49* -- 0.46* CALCIUM mg/dL 8.5 -- 8.5 WBC K/cumm -- -- 12.2* HEMOGLOBIN g/dL -- -- 9.2* HEMATOCRIT % -- -- 29.1* PLATELETS K/cumm -- -- 521* < > = values in this interval not displayed. Micro: Lab Results Component Value Date MICROBIOLOGY Final Report: No growth 09/21/2023 MICROBIOLOGY Final Report: No growth 09/21/2023 Assessment/Plan: 78 y.o. female with above injury/deformity. Patient is now status post C2-7 PSF w C3-6 decompression and bilateral C4-5 foraminotomies. Precautions: cervical precautions Immobilization: Iroquois J Activity: Up ad guy DVT ppx: SQH Therapy: PT/OT for OOB/mobilization as tolerated Drain: removed Antibiotics: Periop ancef Cultures: n/a Guerrier: Per primary Wound Care: Maintain surgical dressing, will be managed by Ortho team Diet: per primary Imaging: post-op upright c-spine XR, completed Additional Needs: none Ortho Spine will continue to follow this patient's hospital course. Dispo: Pending progress, postoperative recovery, and progress with therapy Follow-Up: Patient has follow up scheduled on 10/16/[address] Rodriguez located at [address] Nette Middleton MD, PhD Department of Orthopaedic Surgery PGY-1 [facility] in [facility] Please call with questions during daytime. See below for overnight issues. If you know the resident's name on the appropriate orthopaedic surgery team, please use [email or web address] to page resident directly. If questions arise and the appropriate resident can't be reached or you are calling overnight, please contact [phone] ([facility] 7:30 PM - 6:30 AM - Floor Resident) or [phone] (24 hours/day - Consult Resident) Cosigned by Hans Rodriguez MD at 09/28/2023 8:00 AM CDT * Naheed Cruz MD - 09/27/2023 1:13 PM CDT Images from the original note were not included. [facility] Trauma C Service- Floor Daily Progress Note Admit: 09/16/2023 2:23 AM Date: September 27, 2023 Length of Stay: 11 Attending: Ibrahima Middleton MD POD:8 Days Post-Op Procedure(s): FUSION CERVICAL - POSTERIOR WITH INSTRUMENTATION C2-7; C3-6 Decompression; C4-5 Foraminotomies Subjective History: TRAUMA C - RED 78 y.o. female denies PMH s/p GLF. #L distal tib/fib fx #C3-C4 spinal stenosis Procedures: 09/15: L tib fib IMN 09/19: PSF C2-C7 + C3-C6 laminectomies Edited by: Ayesha Liu MD at 09/21/2023 0605 Interval History: No acute events overnight. Patient afebrile with stable vital signs Saturating well on 2-3 L NC supplementation C-spine xrays done yesterday No new interval labs Tolerating diet, voiding UOP = 800 Pending placement today 4/5 bilateral shoulder abduction Objective Medications: Current Facility-Administered Medications: acetaminophen (TYLENOL) tablet 1,000 mg, 1,000 mg, oral, Q6H, Amy Lara NP, 1,000 mg at 09/27/23 1234 benzocaine-menthoL (CHLORASEPTIC) lozenge 1 lozenge, 1 lozenge, mouth/throat, Q2H PRN, Xiao Gomez MD, 1 lozenge at 09/24/23 1102 bisacodyL (DULCOLAX) suppository 10 mg, 10 mg, rectal, BID PRN, Klever Phillips MD, 10 mg at09/23/23 1248 gabapentin (NEURONTIN) capsule 300 mg, 300 mg, oral, BID, Klever Phillips MD, 300 mg at 09/27/23 0822 heparin 5,000 unit/mL injection 5,000 Units, 5,000 Units, subcutaneous, Q8H LILA, Naheed Cruz MD, 5,000 Units at 09/27/23 0515 HYDROmorphone (DILAUDID) injection 0.2 mg, 0.2 mg, intravenous, Q4H PRN, Sterling Patrick MD, 0.2 mg at 09/27/23 0226 lidocaine (ASPERCREME) 4 % patch 2 patch, 2 patch, transdermal, Q24H, Hannah Chun NP, 2 patch at 09/26/23 1318 methocarbamoL (ROBAXIN) tablet 1,000 mg, 1,000 mg, oral, QID, Klever Phillips MD, 1,000 mg at 09/27/23 1234 naloxone (NARCAN) 0.4 mg/mL injection 0.04-0.4 mg, 0.04-0.4 mg, intravenous, Q10 Min PRN, Gwendolyn Bee MD ondansetron (ZOFRAN) injection 4 mg, 4 mg, intravenous, Q6H PRN, Gwendolyn Bee MD oxyCODONE (ROXICODONE) tablet 5 mg, 5 mg, oral, Q4H PRN, Klever Phillips MD, 5 mg at 09/27/23 0823 polyethylene glycol (MIRALAX) packet 17 g, 17 g, oral, Daily, Hannah Chun NP, 17 g at 09/25/23 0900 senna-docusate (PERICOLACE) 8.6-50 mg per tablet 1 tablet, 1 tablet, oral, BID, Marcos Salazar MD, 1 tablet at 09/26/23 2020 sodium chloride (OCEAN) 0.65 % nasal spray 2 spray, 2 spray, each nostril, Q2H PRN, Klever Phillips MD sodium chloride 0.9% flush 0.5-20 mL, 0.5-20 mL, intra-catheter, Q8H LILA, Marcos Salazar MD, 10 mL at 09/27/23 0517 sodium chloride 0.9% flush 0.5-20 mL, 0.5-20 mL, intra-catheter, PRN, Marcos Salazar MD traZODone (DESYREL) tablet 50 mg, 50 mg, oral, Nightly, Hannah Chun LUIGI, 50 mg at 020 Past Medical: No past medical history on file. Surgical History: History reviewed. No pertinent surgical history. Is&Os: I/O last 2 completed shifts: In: 60 [P.O.:50; I.V.:10] Out: 800 [Urine:800] I/O this shift: In: - Out: 400 [Urine:400] Physical Exam: 24hr Min/Max: Temp Min: 36.6 ??C (97.8 ??F) Max: 36.7 ??C (98.1 ??F) Pulse Min: 98 Max: 116 BP Min: 128/73 Max: 143/77 Resp Min: 18 Max: 20 SpO2 Min: 95 % Max: 99 % Physical Exam Constitutional: no acute distress, awake/conversant, pleasant HEENT: Iroquois J collar in place; normocephalic/atraumatic CV: tachycardic, palpable radial pulses bilaterally, warm and well perfused Resp: breathing unlabored on room air Abd: soft, non-tender, non-distended. No rebound or guarding Ext: warm, moves all extremities, no cyanosis/edema, LLE in orthopedic dressing 4/5 bilateral shoulder abduction, 4/5 elbow flexion Neuro: alert and oriented to person/place/date, motor/sensory grossly intact Labs/Imaging: Recent Labs Lab Units 09/24/23211509/23/23 1604 09/22/232003 WBC K/cumm 12.2* 13.9* 10.6* HEMOGLOBIN g/dL 9.2* 9.5* 8.4* HEMATOCRIT % 29.1* 30.3* 27.3* PLATELETS K/cumm 521* 425* 352 Recent Labs Lab Units 09/25/23 2251 09/25/23 1406 09/25/23 0725 09/24/23211509/23/23 1604 SODIUM mmol/L 137 -- -- 140 141 POTASSIUM PLASMA mmol/L 4.3 -- -- 4.5 4.5 CHLORIDE mmol/L 100 -- -- 104 104 CO2 mmol/L 30 -- -- 29 32 BUN SERUM mg/dL 12 -- -- 10 10 CREATININE mg/dL 0.49* -- -- 0.46* 0.45* GLUCOSE mg/dL 102 -- -- 125 121 POC GLUCOSE MONITOR mg/dL -- 127 127 -- -- CALCIUM mg/dL 8.5 -- -- 8.5 8.4* XR Spine Cervical 2 or 3 Views Result Date: 09/24/2023 1. New posterior instrumented fusion from C2 to C7 with posterior decompression of C3-C6. Dictated by: Juanito Almeida MD PHD The radiology attending physician has personally reviewed this study, and had reviewed and/or edited this written report and agrees with it. Electronically signed by: Nathaniel Christianson MD I have independently reviewed and interpreted all relevant lab and radiographic data. Assessment/Plan Trauma Surgical Assessment and Plan Electrolyte imbalance Assessment & Plan - 09/17: Mg 1.7, Phos 2.9, K 3.1 - Magnesium and KPhos treated - 09/17: Mg 1.7, Phos 2.2, K 3.7 - Magnesium and KPhos treated - Monitor electrolytes 09/25: Lytes stable: DC'ed daily labs Weakness of both arms Assessment & Plan - Pe patient, weakness started after fall. No weakness of arms prior to fall - No pain or resistance with passive movement. - CT c spine without injury, however spinal cord and neuroforaminal stenosis noted on CT - MRI: Severe high-grade spinal canal stenosis at C3-C4 level secondary to congenitally narrowed spinal canal, multilevel disc osteophyte complex, and ligamentum flavum thickening. Cord edema noted at the C3-C4 level - 09/17: Ortho Spine consulted - 09/18: Operative intervention recommended, patient discussing with family and spine team - PT/OT consult - Elevate arms for swelling - 09/19: OR w/ spine: posterior cervical fusion+ instrumentation from C2-7; C3-6 laminectomies, C4-5 bilateral foraminotomies - In SICU on naman for MAP augmentation 80-95 for 48h postop - - 09/22: MAP goals liberalized; off pressor support - 09/23: Transferred to the floor; hemodynamically stable - 09/24: RUE US for localized swelling: (-) for DVT; (+) superficial vein thrombus - 09/25: [x] Iroquois J and [x]upright cspine XRs - 09/26: BUE motor exam stable. Cont PT/OT Pulmonary nodule Assessment & Plan - CT C/A/P (09/15): Indeterminate right lower lobe pulmonary nodule with broad base along the pleura.Recommend comparison with prior imaging if available to document stability. If no prior imaging is available, recommend follow-up CT in 6-12 months. Discharge planning issues Assessment & Plan 09/25: pending SNF placement. Seen by PT/OT Encounter for medication review Assessment & Plan - No past medical history, takes no medications at home Acute pain due to trauma Assessment & Plan - Tylenol 1000 mg q6h - Robaxin 500 mg TID, increased to 750 QID on 09/18 - Oxycodone 5 mg q4h PRN Closed fracture of shaft of left tibia, unspecified fracture morphology, initial encounter Assessment & Plan #Left tib fib fracture - Orthopedic consult - s/p OR 09/15 IMN - NWB LLE - Maintain SLS - PT/OT - Pain control - Bone health referral at discharge FEN: These fluid and electrolyte abnormalities are being treated, evaluated or monitored: No fluid or electrolyte disorders Lines/Drains/Tubes: PIVs DVT Prophylaxis: Heparin Diet: Adult Diet Regular Activity: As tolerated, NWB LLE GI Prophylaxis: None Code Status: Full Code All care plans discussed with rounding/operative attending: Jay Cruz MD Cosigned by Hans Thompson MD at 09/29/2023 11:52 AM CDT Associated attestation - Hans Thompson MD - 09/29/2023 11:52 AM CDT I have personally seen and examined this patient on the date of service as documented on the Resident note and have reviewed and confirmed the history, physical exam, laboratory,radiographic data, assessment and plan as documented by the resident. Hans Thompson MD Section of Acute and Critical Care Surgery * Fernando Barrios MD - 09/26/2023 8:43 AM CDT Orthopaedic Spine Service Daily Progress Note Admit Date: 09/16/2023 [facility] Dx: C/f cervical myelopathy Relevant PMHx: None per patient Procedure(s): 09/20/2023 - C2-7 PSF w/ C3-6 decompression and bilateral C4-5 foraminotomies Interval History: 09/26/23: POD6. AFVSS. NAEON. Voiding. DVT ppx restarted. H/H: 9.2/29.1, WBC: 12.2, Cr: 0.49. Exam:BUE 4-/5 deltoid, BUE 4/5 biceps/triceps/WF/WE/IO. SILT throughout. RLE IP/Q 3/5 (limited by participation), o/w /5, LLE limited by splint. SILT throughout BLE. Plan: Q4h neurochecks. PT/OT. Dispo per primary. Objective Vitals: 24hr Min/Max: Temp Min: 36.6 ??C (97.9 ??F) Max: 37 ??C (98.6 ??F) Pulse Min: 91 Max: 101 BP Min: 105/65 Max: 135/84 Resp Min: 16 Max: 20 SpO2 Min: 92 % Max: 99 % I/O last 2 completed shifts: In: 945 [P.O.:925; I.V.:20] Out: 550 [Urine:550] I/O this shift: In: 0 Out: 200 [Urine:200] Physical Exam: Gen: no acute distress Neuro: A&Ox3 Dressing: clean/dry/intact Wound Vac(s): Not applicable Hemo Vac(s): Not applicable Motor: Muscle Strength Right Left Shoulder abduction (C5) 4-/5 4-/5 Elbow flexion (C5/6) 4-/5 4-/5 Elbow extension (C7) 4/5 4/5 Wrist extension (C6) 4/5 4/5 Wrist flexion (C7) 4/5 4/5 Wedding Consultant (C8) 4/5 4/5 Interosseous of hand (T1) 4/5 4/5 Iliopsoas (L2/3) 5/5 Limited by LLE splint Quadriceps (L3/4) 5/5 Limited by LLE splint Tibialis anterior (L4/5) 5/5 Limited by LLE splint Extensor hallicus longus (L5) 5/5 5/5 Gastrocsoleus complex (S1) 5/5 Limited by LLE splint Sensation Left upper extremity: SILT C5 to T1 dermatomes. Right upper extremity: SILT C5 to T1 dermatomes. Left lower extremity: SILT L2 to S1 dermatomes. Right lower extremity: SILT L2 to S1 dermatomes. Vascular: Bilateral Upper Extremity: 2+ radial pulse, fingers WWP Bilateral Lower Extremity: 2+ DP pulse, toes WWP Lab/Diagnostic Review: Recent Labs Lab Units 09/25/23 2251 09/25/23 0725 09/24/23 2116 09/20/23 0952 09/19/23 2358 SODIUM mmol/L 137 -- 140 < > 141 POTASSIUM PLASMA mmol/L 4.3 -- 4.5 < > 3.6 CHLORIDE mmol/L 100 -- 104 < > 103 CO2 mmol/L 30 -- 29 < > 29 ANIONGAP mmol/L 7 -- 7 < > 9 GLUCOSE mg/dL 102 -- 125 < > 125 POC GLUCOSE MONITOR -- < > -- < > -- BUN SERUM mg/dL 12 -- 10 < > 8 CREATININE mg/dL 0.49* -- 0.46* < > 0.44* CALCIUM mg/dL 8.5 -- 8.5 < > 8.4* WBC K/cumm -- -- 12.2* < > 9.5 HEMOGLOBIN, POC -- -- -- < > -- HEMOGLOBIN g/dL -- -- 9.2* < > 9.8* HEMATOCRIT % -- -- 29.1* < > 30.8* HEMATOCRIT POC -- -- -- < > -- PLATELETS K/cumm -- -- 521* < > 270 APTT sec -- -- -- -- 30 INR -- -- -- -- 1.26* < > = values in this interval not displayed. Micro: Lab Results Component Value Date MICROBIOLOGY Final Report: No growth 09/21/2023 MICROBIOLOGY Final Report: No growth 09/21/2023 Assessment/Plan: 78 y.o. female p/w the above injuries. Patient is now status post above WB Status: Non-weight bearing left lower extremity Immobilization: SLS Activity: Ambulate with assist Therapy: PT/OT for OOB/mobilization as tolerated. Precautions: None DVT ppx: Unilateral lower extremity injury: Lovenox 40mg QHS postop while in the hospital, on discharge transition to Aspirin 81mg BID x 14 days to take with food OR continue Lovenox 40mg QHS if patient will return for further orthopaedic surgery Drain: n/a Antibiotics: Periop: Ancef 1-2gm IV Q8hrs for 24 hours postoperative Cultures: None Wound Care: Maintain surgical dressing until follow-up Sutures/Pearson: Will be removed 3 weeks after surgical date. Please include on discharge orders ifpatient is going to a facility. If the patient is still in the hospital at that time they will be removed by the orthopedic team. Guerrier: n/a Diet: Regular Additional Needs: Bone health referral at discharge Ortho Trauma will sign off at this time, and follow their hospital course peripherally. Please callwith any concerns. Dispo: Pending progress, postoperative recovery, and progress with therapy Follow-Up: Patient has follow up scheduled on 10/06/[address] Taylor located at [facility] Assessment/Plan: 78 y.o. female with above injury/deformity. Patient is now status post C2-7 PSF w C3-6 decompression and bilateral C4-5 foraminotomies. Precautions: cervical precautions Immobilization: Iroquois J Activity: Up ad guy DVT ppx: SQH Therapy: PT/OT for OOB/mobilization as tolerated Drain: removed Antibiotics: Periop ancef Cultures: n/a Guerrier: Per primary Wound Care: Maintain surgical dressing, will be managed by Ortho team Diet: per primary Imaging: upright c-spine XR Additional Needs: none Ortho Spine will continue to follow this patient's hospital course. Dispo: Pending progress, postoperative recovery, and progress with therapy Follow-Up: Patient has follow up scheduled on 10/16/[address] Rodriguez located at [address] Fernando Barrios MD, [facility] [place] Orthopaedic Surgery PGY-2 Please call with questions during daytime. See below for overnight issues. If you know the resident's name on the appropriate orthopaedic surgery team, please use [email or web address] to page resident directly. If questions arise and the appropriate resident can't be reached or you are calling overnight, please contact [phone] ( 7:30 PM - 6:30 AM - Floor Resident) or [phone] (24 hours/day - Consult Resident) Cosigned by Hans Rodriguez MD at 09/26/2023 7:43 PM CDT Associated attestation - Hans Rodriguez MD - 09/26/2023 7:43 PM CDT I personally examined Ms. Domínguez this morning. I agree with the assessment and plan by Dr. Barrios. * Bruce Jack MD - 09/26/2023 5:16 AM CDT Images from the original note were not included. [facility] Trauma C Service- Floor Daily Progress Note Admit: 09/16/2023 2:23 AM Date: September 26, 2023 Length of Stay: 10 Attending: Ibrahima Middleton MD POD:7 Days Post-Op Procedure(s): FUSION CERVICAL - POSTERIOR WITH INSTRUMENTATION C2-7; C3-6 Decompression; C4-5 Foraminotomies Subjective History: TRAUMA C - RED 78 y.o. female denies PMH s/p GLF. #L distal tib/fib fx #C3-C4 spinal stenosis Procedures: 09/15: L tib fib IMN 09/19: PSF C2-C7 + C3-C6 laminectomies Edited by: Ayesha Liu MD at 09/21/2023 0605 Interval History: VSS, on 3 L nasal cannula. Pain score ranging from 6-9 (Tylenol, Robaxin, Oxy). UOP 300 + 2x. Citbn3u. BMP stable. No DVT RUE on Duplex. Pending SNF placement. Objective Medications: Current Facility-Administered Medications: acetaminophen (TYLENOL) tablet 1,000 mg, 1,000 mg, oral, Q6H, Amy Lara NP, 1,000 mg at 09/26/23 0439 benzocaine-menthoL (CHLORASEPTIC) lozenge 1 lozenge, 1 lozenge, mouth/throat, Q2H PRN, Xiao Gomez MD, 1 lozenge at 09/24/23 1102 bisacodyL (DULCOLAX) suppository 10 mg, 10 mg, rectal, BID PRN, Klever Phillips MD, 10 mg at09/23/23 1248 gabapentin (NEURONTIN) capsule 300 mg, 300 mg, oral, BID, Klever Phillips MD, 300 mg at 09/26/23 0820 heparin 5,000 unit/mL injection 5,000 Units, 5,000 Units, subcutaneous, Q8H LILA, Naheed Cruz MD, 5,000 Units at 09/26/23 0439 HYDROmorphone (DILAUDID) injection 0.2 mg, 0.2 mg, intravenous, Q4H PRN, Sterling Patrick MD, 0.2 mg at 09/25/23 0554 lidocaine (ASPERCREME) 4 % patch 2 patch, 2 patch, transdermal, Q24H, Hannah Chun NP, 2 patch at 09/24/23 1341 methocarbamoL (ROBAXIN) tablet 1,000 mg, 1,000 mg, oral, QID, Klever Phillips MD, 1,000 mg at 09/26/23 0820 naloxone (NARCAN) 0.4 mg/mL injection 0.04-0.4 mg, 0.04-0.4 mg, intravenous, Q10 Min PRN, Gwendolyn Bee MD ondansetron (ZOFRAN) injection 4 mg, 4 mg, intravenous, Q6H PRN, Gwendolyn Bee MD oxyCODONE (ROXICODONE) tablet 5 mg, 5 mg, oral, Q4H PRN, Klever Phillips MD, 5 mg at 09/26/23 0446 polyethylene glycol (MIRALAX) packet 17 g, 17 g, oral, Daily, Hannah Chun, LUIGI, 17 g at 09/25/23 0900 senna-docusate (PERICOLACE) 8.6-50 mg per tablet 1 tablet, 1 tablet, oral, BID, Marcos Salazar MD, 1 tablet at 09/26/23 0820 sodium chloride (OCEAN) 0.65 % nasal spray 2 spray, 2 spray, each nostril, Q2H PRN, Klever Phillips MD sodium chloride 0.9% flush 0.5-20 mL, 0.5-20 mL, intra-catheter, Q8H LILA, Marcos Salazar MD, 10 mL at 09/26/23 0441 sodium chloride 0.9% flush 0.5-20 mL, 0.5-20 mL, intra-catheter, PRN, Marcos Salazar MD traZODone (DESYREL) tablet 50 mg, 50 mg, oral, Nightly, Hannah Chun, LUIGI, 50 mg at 147 Past Medical: No past medical history on file. Surgical History: History reviewed. No pertinent surgical history. Is&Os: I/O last 2 completed shifts: In: 945 [P.O.:925; I.V.:20] Out: 550 [Urine:550] I/O this shift: In: 0 Out: 300 [Urine:300] Physical Exam: 24hr Min/Max: Temp Min: 36.6 ??C (97.9 ??F) Max: 37 ??C (98.6 ??F) Pulse Min: 91 Max: 101 BP Min: 105/65 Max: 135/84 Resp Min: 16 Max: 20 SpO2 Min: 92 % Max: 99 % Physical Exam Constitutional: no acute distress, awake/conversant, pleasant HEENT: Iroquois J collar in place; normocephalic/atraumatic CV: tachycardic, palpable radial pulses bilaterally, warm and well perfused Resp: breathing unlabored on room air Abd: soft, non-tender, non-distended. No rebound or guarding Ext: warm, moves all extremities well, no cyanosis/edema, LLE in orthopedic dressing Neuro: alert and oriented to person/place/date, motor/sensory grossly intact Labs/Imaging: Recent Labs Lab Units 09/24/23 2116 09/23/23 1604 09/22/232003 WBC K/cumm 12.2* 13.9* 10.6* HEMOGLOBIN g/dL 9.2* 9.5* 8.4* HEMATOCRIT % 29.1* 30.3* 27.3* PLATELETS K/cumm 521* 425* 352 Recent Labs Lab Units 09/25/23 2251 09/25/23 1406 09/25/23 0725 09/24/23 2116 09/23/23 1604 SODIUM mmol/L 137 -- -- 140 141 POTASSIUM PLASMA mmol/L 4.3 -- -- 4.5 4.5 CHLORIDE mmol/L 100 -- -- 104 104 CO2 mmol/L 30 -- -- 29 32 BUN SERUM mg/dL 12 -- -- 10 10 CREATININE mg/dL 0.49* -- -- 0.46* 0.45* GLUCOSE mg/dL 102 -- -- 125 121 POC GLUCOSE MONITOR mg/dL -- 127 127 -- -- CALCIUM mg/dL 8.5 -- -- 8.5 8.4* Recent Labs Lab Units 09/19/23 2358 PROTIME (PT) sec 14.4* INR 1.26* XR Spine Cervical 2 or 3 Views Result Date: 09/24/2023 1. New posterior instrumented fusion from C2 to C7 with posterior decompression of C3-C6. Dictatedby: Juanito Almeida MD PHD The radiology attending physician has personally reviewed this study, and had reviewed and/or edited this written report and agrees with it. Electronically signed by: Nathaniel Christianson MD I have independently reviewed and interpreted all relevant lab and radiographic data. Assessment/Plan Trauma Surgical Assessment and Plan Electrolyte imbalance Assessment & Plan - 09/17: Mg 1.7, Phos 2.9, K 3.1 - Magnesium and KPhos treated - 09/17: Mg 1.7, Phos 2.2, K 3.7 - Magnesium and KPhos treated - Monitor electrolytes 09/25: Lytes stable: DC'ed daily labs Weakness of both arms Assessment & Plan - Pe patient, weakness started after fall. No weakness of arms prior to fall - No pain or resistance with passive movement. - CT c spine without injury, however spinal cord and neuroforaminal stenosis noted on CT - MRI: Severe high-grade spinal canal stenosis at C3-C4 level secondary to congenitally narrowed spinal canal, multilevel disc osteophyte complex, and ligamentum flavum thickening. Cord edema noted at the C3-C4 level - 09/17: Ortho Spine consulted - 09/18: Operative intervention recommended, patient discussing with family and spine team - PT/OT consult - Elevate arms for swelling - 09/19: OR w/ spine: posterior cervical fusion+ instrumentation from C2-7; C3-6 laminectomies, C4-5 bilateral foraminotomies - In SICU on naman for MAP augmentation 80-95 for 48h postop - - 09/22: MAP goals liberalized; off pressor support - 09/23: Transferred to the floor; hemodynamically stable - 09/24: RUE US for localized swelling: (-) for DVT; (+) superficial vein thrombus - 09/25: [x] Iroquois J and [x]upright cspine XRs Pulmonary nodule Assessment & Plan - CT C/A/P (09/15): Indeterminate right lower lobe pulmonary nodule with broad base along the pleura.Recommend comparison with prior imaging if available to document stability. If no prior imaging is available, recommend follow-up CT in 6-12 months. Discharge planning issues Assessment & Plan 09/25: pending SNF placement. Seen by PT/OT Encounter for medication review Assessment & Plan - No past medical history, takes no medications at home Acute pain due to trauma Assessment & Plan - Tylenol 1000 mg q6h - Robaxin 500 mg TID, increased to 750 QID on 09/18 - Oxycodone 5 mg q4h PRN Closed fracture of shaft of left tibia, unspecified fracture morphology, initial encounter Assessment & Plan #Left tib fib fracture - Orthopedic consult - s/p OR 09/15 IMN - NWChi LLE - Maintain SLS - PT/OT - Pain control - Bone health referral at discharge FEN: These fluid and electrolyte abnormalities are being treated, evaluated or monitored: No fluid or electrolyte disorders Lines/Drains/Tubes: PIVs DVT Prophylaxis: Heparin Diet: Adult Diet Regular Activity: As tolerated, NWB LLE GI Prophylaxis: None Code Status: Full Code All care plans discussed with rounding/operative attending: Jay Jack MD Cosigned by Hans Thompson MD at 09/27/2023 11:40 AM CDT Associated attestation - Hans Thompson MD - 09/27/2023 11:40 AM CDT I have personally seen and examined this patient on the date of service as documented on the Resident note and have reviewed and confirmed the history, physical exam, laboratory,radiographic data, assessment and plan as documented by the resident. Hans Thompson MD Section of Acute and Critical Care Surgery * Raven Rothman, PT - 09/25/2023 3:07 PM CDT Physical Therapy 09/25/23 1500 General PT Missed Visit Reason (large amount of liquid stool, PT unable to return today) * Greer Waller, OT - 09/25/2023 2:52 PM CDT Occupational Therapy Occupational Therapy Progress Note NOTE: This is a summary note of the moran components of the treatment session. For full details, review chart for all flowsheets documented on by this occupational therapy clinician on this date. Vitalsigns documented in vital signs flowsheet. Care plan progress documented in Care Plan Activity. For questions, please review the treatment team and contact the occupational therapist currently assigned to this patient. If an occupational therapist is not assigned to this patient, please call [phone]. 09/25/23 6889 General Session Type Treatment OT Received On 09/25/23 Safe Environment Arm band checked;Patient found in supine;Gait belt not utilized, see comment (no OOB mobility on this date) Subjective Agreeable to Therapy Family/Caregiver Present No Precautions Precautions Fall risk Weight Bearing Restrictions Yes LLE Weight Bearing NWB Braces/Orthoses Cervical collar (Iroquois J) Precaution Comments verbally reviewed precautions with pt prior to mobility Pain Assessment Pain Assessment 0-10 Pain Score 8 Pain Location Leg Pain Orientation Left;Right Pain Interventions Repositioned;RN Notified Balance Balance Yes Static Sitting Balance Static Sitting-Balance Support Bilateral upper extremity supported;Feet supported Static Sitting-Sitting Surface Bed Static Sitting-Level of Assistance Moderate assistance;Minimum assistance Static Sitting-Comment/# of Minutes fluctuating between mod and min assist to maintain upright posture and trunk control; increased lateral leaning on this date; RLE increasingly rigid after bed mobility making sitting EOB more difficult for the pt ADL ADLS (WDL) X Grooming Grooming: Where assessed Supine, bed Grooming: Level of assistance Maximum Assist (mod A for task, unable to tolerate in standing) Grooming: Assistance with Increased time to complete;Manipulation of containers;Reaching all areas of head/face;Balance;Safety Toileting Toileting: Where assessed Supine, bed Toileting: Level of assistance Dependent Toileting: Assistance with (all components) Bed Mobility Bed Mobility Yes Bed Mobility 1 Bed Mobility From 1 Supine Bed Mobility Type 1 To and from Bed Mobility to 1 Rolling right;Rolling left Level of Assistance 1 Maximum Assist Bed Mobility Comments 1 max A for force production and BLE management Bed Mobility 2 Bed Mobility From 2 Supine Bed Mobility Type 2 To and from Bed Mobility to 2 Edge of Bed Level of Assistance 2 Maximum Assist Bed Mobility Comments 2 max A for trunk elevation/ controlled descent, BLE management, and repositioning; VC for technique and safety Transfers Transfer No (2/2 pt declined after toileting) Therapeutic Exercise - ROM/STRENGTH ROM/STRENGTH Yes All Joints - ROM/Strength - Right R Motion All Joints AAROM;PROM R Position All Joints Supine R Weight/Reps/Sets All Joints 10 reps x1 set- all joints All Joints - ROM/STRENGTH - Left L Motion All Joints AAROM;PROM L Position All Joints Supine L Weight/Reps/Sets All Joints 10 reps x1 set - all joints Cognition Arousal/Alertness Alert;Appropriate responses to stimuli Attention Span Attends with cues to redirect;Distractability Current communication Appears Intact Orientation Oriented X4 (person, place, time, situation) Following Commands Follows multistep commands with repetition Safety Judgment Decreased awareness of need for safety Awareness of Errors Assistance required to identify errors made;Assistance required to correct errors made Insight Decreased awareness of deficits Problem Solving Assistance required to identify errors made;Assistance required to generate solutions Compliance/Behavior Easy to engage Other Comments Comments Increased time required for trice care and toileting. RLE became increasingly rigid after toileting and bed mobility making sitting EOB more difficult for the pt. Pt would continue to benefitfrom skilled OT to increase strength, endurance and indep with ADLs. Daily Activity - 6 Clicks Putting on and taking off regular lower body clothing 1 Bathing 1 Toileting 1 Putting on and taking off upper body clothing 1 Personal Grooming 2 Eating Meals 2 Total Score (range 6-24) 8 Score Interpretation 22.86 Safe Environment End of Therapy Session Safe Environment End of Therapy Session Patient left supine in bed;Bed alarm in place and activated;RN notified;Call light within reach;Overbed table within reach Assessment Problem List Decreased upper extremity range of motion;Decreased upper extremity strength;Decreasedsafe judgment during ADL;Decreased cognition;Decreased endurance;Decreased balance;Decreased functional mobility;Decreased ADL independence;Decreased fine motor control;Decreased gross motor control;D ecreased trunk control for functional activities;Pain Barriers to Discharge Current Mobility Status;Current ADL Status Barrier Comments fall risk Plan Plan Continue with current plan;If this is the last note, consider this the discharge summary Recommendation/Plan OT Recommendation Residential Facility Patient at high risk for Falls;Readmission;Injury due to decreased ability to care for self;Injury due to reduced functional status;Injury due to impaired cognition;Injury due to balance deficits;Injury at home as patient has not returned to prior level of function Recommend SNF due to Risk of injury at home;Unable to safely care for self in the home;Skilled therapy needed to address care for self in the home;Skilled therapy needed to address functional deficits;Skilled therapy needed for patient to return to prior level of independence OT Frequency during current admission 5-7x/wk Treatment/Interventions during current admission ADL/IADL retraining;Balance Training;Bed mobility;Cognitive retraining;Compensatory technique education;Endurance training;Equipment eval/education;Functional activity;Functional mobility training;Functional transfer training;Strengthening;Therapeutic activity;Therapeutic exercise;Transfer training Progress during current admission Progressing toward goals OT - Next Appointment 09/28/23 Time Calculation Start Time 1452 Stop Time 1540 Time Calculation (min) 48 min * Naheed Cruz MD - 09/25/2023 10:37 AM CDT Images from the original note were not included. [facility] Trauma [facility] Service- Floor Daily Progress Note Admit: 09/16/2023 2:23 AM Date: September 25, 2023 Length of Stay: 9 Attending: Ibrahima Middleton MD POD:6 Days Post-Op Procedure(s): FUSION CERVICAL - POSTERIOR WITH INSTRUMENTATION C2-7; C3-6 Decompression; C4-5 Foraminotomies Subjective History: TRAUMA C - RED 78 y.o. female denies PMH s/p GLF. #L distal tib/fib fx #C3-C4 spinal stenosis Procedures: 09/15: L tib fib IMN 09/19: PSF C2-C7 + C3-C6 laminectomies Edited by: Ayesha Liu MD at 09/21/2023 0605 Interval History: Transferred to the floor yesterday afternoon No acute events overnight. Patient afebrile, hemodynamically stable Intermittently tachycardic to 120s, EKG normal sinus with some premature complexes H/H: 9.2/29.1, WBC: 12.2, Cr: 0.46. Voiding (1675 UOP) DVT PPx changed to Heparin from Lovenox Right upper extremity US negative for DVT, positive for superficial vein thrombus Objective Medications: Current Facility-Administered Medications: acetaminophen (TYLENOL) tablet 1,000 mg, 1,000 mg, oral, Q6H, Amy Lara NP, 1,000 mg at 09/25/23 1301 benzocaine-menthoL (CHLORASEPTIC) lozenge 1 lozenge, 1 lozenge, mouth/throat, Q2H PRN, Xiao Gomez MD, 1 lozenge at 09/24/23 1102 bisacodyL (DULCOLAX) suppository 10 mg, 10 mg, rectal, BID PRN, Klever Phillips MD, 10 mg at09/23/23 1248 gabapentin (NEURONTIN) capsule 300 mg, 300 mg, oral, BID, Klever Phillips MD, 300 mg at 09/25/23 0900 heparin 5,000 unit/mL injection 5,000 Units, 5,000 Units, subcutaneous, Q8H LILA, Naheed Cruz MD, 5,000 Units at 09/25/23 1301 HYDROmorphone (DILAUDID) injection 0.2 mg, 0.2 mg, intravenous, Q4H PRN, Sterling Patrick MD, 0.2 mg at 09/25/23 0554 lidocaine (ASPERCREME) 4 % patch 2 patch, 2 patch, transdermal, Q24H, Hannah Chun NP, 2 patch at 09/24/23 1341 methocarbamoL (ROBAXIN) tablet 1,000 mg, 1,000 mg, oral, QID, Klever Phillips MD, 1,000 mg at 09/25/23 1301 naloxone (NARCAN) 0.4 mg/mL injection 0.04-0.4 mg, 0.04-0.4 mg, intravenous, Q10 Min PRN, Gwendolyn Bee MD ondansetron (ZOFRAN) injection 4 mg, 4 mg, intravenous, Q6H PRN, Gwendolyn Bee MD oxyCODONE (ROXICODONE) tablet 5 mg, 5 mg, oral, Q4H PRN, Klever Phillips MD, 5 mg at 09/25/23 1301 polyethylene glycol (MIRALAX) packet 17 g, 17 g, oral, Daily, Hannah Chun, LUIGI, 17 g at 09/25/23 0900 senna-docusate (PERICOLACE) 8.6-50 mg per tablet 1 tablet, 1 tablet, oral, BID, Marcos Salazar MD, 1 tablet at 09/25/23 0900 sodium chloride (OCEAN) 0.65 % nasal spray 2 spray, 2 spray, each nostril, Q2H PRN, Klever Phillips MD sodium chloride 0.9% flush 0.5-20 mL, 0.5-20 mL, intra-catheter, Q8H LILA, Marcos Salazar MD, 10 mL at 09/25/23 0510 sodium chloride 0.9% flush 0.5-20 mL, 0.5-20 mL, intra-catheter, PRN, Marcos Salazar MD traZODone (DESYREL) tablet 50 mg, 50 mg, oral, Nightly, Hannah Chun NP, 50 mg at Past Medical: No past medical history on file. Surgical History: History reviewed. No pertinent surgical history. Is&Os: I/O last 2 completed shifts: In: 660 [P.O.:660] Out: 2375 [Urine:2375] I/O this shift: In: 225 [P.O.:225] Out: 200 [Urine:200] Physical Exam: 24hr Min/Max: Temp Min: 36.6 ??C (97.9 ??F) Max: 37.3 ??C (99.1 ??F) Pulse Min: 94 Max: 127 BP Min: 126/65 Max: 159/69 Resp Min: 18 Max: 20 SpO2 Min: 92 % Max: 99 % Physical Exam Constitutional: no acute distress, awake/conversant, pleasant HEENT: Iroquois J collar in place; normocephalic/atraumatic CV: tachycardic, palpable radial pulses bilaterally, warm and well perfused Resp: breathing unlabored on room air Abd: soft, non-tender, non-distended. No rebound or guarding Ext: warm, moves all extremities well, no cyanosis/edema, LLE in orthopedic dressing Neuro: alert and oriented to person/place/date, motor/sensory grossly intact Labs/Imaging: Recent Labs Lab Units 09/24/23211509/23/23 1604 09/22/232003 WBC K/cumm 12.2* 13.9* 10.6* HEMOGLOBIN g/dL 9.2* 9.5* 8.4* HEMATOCRIT % 29.1* 30.3* 27.3* PLATELETS K/cumm 521* 425* 352 Recent Labs Lab Units 09/25/23 1406 09/25/23 0725 09/24/23211509/23/23 1604 09/22/232003 SODIUM mmol/L -- -- 140 141 138 POTASSIUM PLASMA mmol/L -- -- 4.5 4.5 4.5 CHLORIDE mmol/L -- -- 104 104 102 CO2 mmol/L -- -- 29 32 30 BUN SERUM mg/dL -- -- 10 10 9 CREATININE mg/dL -- -- 0.46* 0.45* 0.42* GLUCOSE mg/dL -- -- 125 121 135 POC GLUCOSE MONITOR mg/dL 127 127 -- -- -- CALCIUM mg/dL -- -- 8.5 8.4* 8.0* Recent Labs Lab Units 09/19/23 2358 PROTIME (PT) sec 14.4* INR 1.26* XR Spine Cervical 2 or 3 Views Result Date: 09/24/2023 1. New posterior instrumented fusion from C2 to C7 with posterior decompression of C3-C6. Dictated by: Juanito Almeida MD PHD The radiology attending physician has personally reviewed this study, and had reviewed and/or edited this written report and agrees with it. Electronically signed by: Nathaniel Christianson MD I have independently reviewed and interpreted all relevant lab and radiographic data. Assessment/Plan Trauma Surgical Assessment and Plan Electrolyte imbalance Assessment & Plan - 09/17: Mg 1.7, Phos 2.9, K 3.1 - Magnesium and KPhos treated - 09/17: Mg 1.7, Phos 2.2, K 3.7 - Magnesium and KPhos treated - Monitor electrolytes Weakness of both arms Assessment & Plan - Pe patient, weakness started after fall. No weakness of arms prior to fall - No pain or resistance with passive movement. - CT c spine without injury, however spinal cord and neuroforaminal stenosis noted on CT - MRI: Severe high-grade spinal canal stenosis at C3-C4 level secondary to congenitally narrowed spinal canal, multilevel disc osteophyte complex, and ligamentum flavum thickening. Cord edema noted at the C3-C4 level - 09/17: Ortho Spine consulted - 09/18: Operative intervention recommended, patient discussing with family and spine team - PT/OT consult - Elevate arms for swelling - 09/19: OR w/ spine: posterior cervical fusion+ instrumentation from C2-7; C3-6 laminectomies, C4-5 bilateral foraminotomies - In SICU on naman for MAP augmentation 80-95 for 48h postop - Needs Iroquois J and upright cspine XRs - 09/22: MAP goals liberalized; off pressor support - 09/23: Transferred to the floor; hemodynamically stable - 09/24: RUE US for localized swelling: (-) for DVT; (+) superficial vein thrombus Pulmonary nodule Assessment & Plan - CT C/A/P (09/15): Indeterminate right lower lobe pulmonary nodule with broad base along the pleura.Recommend comparison with prior imaging if available to document stability. If no prior imaging is available, recommend follow-up CT in 6-12 months. Discharge planning issues Assessment & Plan 09/16: Pending PT/OT for discharge planning Encounter for medication review Assessment & Plan - No past medical history, takes no medications at home Acute pain due to trauma Assessment & Plan - Tylenol 1000 mg q6h - Robaxin 500 mg TID, increased to 750 QID on 09/18 - Oxycodone 5 mg q4h PRN Closed fracture of shaft of left tibia, unspecified fracture morphology, initial encounter Assessment & Plan #Left tib fib fracture - Orthopedic consult - s/p OR 09/15 IMN - NWB LLE - Maintain SLS - PT/OT - Pain control - Bone health referral at discharge FEN: These fluid and electrolyte abnormalities are being treated, evaluated or monitored: No fluid or electrolyte disorders Lines/Drains/Tubes: PIVs DVT Prophylaxis: Heparin Diet: Adult Diet Regular Activity: As tolerated, NWB LLE GI Prophylaxis: None Code Status: Full Code All care plans discussed with rounding/operative attending: MD Naheed Kong MD Cosigned by Desirae Akins MD at 10/05/2023 7:47 AM CDT Associated attestation - Desirae Akins MD - 10/05/2023 7:47 AM CDT I have seen and examined the patient on 09/25/23. I agree with the findings and plan of care as discussed with the resident. I spent 5 minutes reviewing the chart, discussing the plan with the patient/family, discussing the plan with the team, and documenting in the medical record. This does not include any time spent on separately billable procedures. Ami Akins MD -[facility], [facility] Acute and Critical Care Surgery [facility] * Klever Phillips MD - 09/24/2023 7:16 AM CDT Surgical ICU Daily Progress Team: Red AM 1 Subjective Patient is a 78 y.o. female admitted on 09/16/2023 2:23 AM. Patient presented 09/15 to ED after ground level fall, found to have L distal tib/fib fracture s/p IMN repair with ortho on 09/15. Found to have possibly worsening upper extremity weakness, MRI findings of spinal cord deformity, and ultimately went to OR with ortho spine for spinal decompression. In OR patient had stable neuromonitoring exceptfor waxing and waning C5. Interval History: 09/23 AM - Ortho spine: q4h NC - TTF when bed available - D/c tobias 09/22 PM: - Ortho spine: q3h neurochecks, Iroquois J, OOBTC/PT as tolerated, upright c-spine XR - given 1g Mg Objective Physical Exam: Physical Exam HENT: Head: Normocephalic and atraumatic. Right Ear: External ear normal. Left Ear: External ear normal. Nose: Nose normal. Mouth/Throat: Mouth: Mucous membranes are moist. Eyes: Conjunctiva/sclera: Conjunctivae normal. Cardiovascular: Rate and Rhythm: Normal rate and regular rhythm. Pulses: Normal pulses. Heart sounds: Normal heart sounds. Pulmonary: Effort: Pulmonary effort is normal. Breath sounds: Normal breath sounds. Abdominal: General: Abdomen is flat. Bowel sounds are normal. There is no distension. Palpations: Abdomen is soft. Tenderness: There is no abdominal tenderness. Musculoskeletal: Right lower leg: No edema. Left lower leg: No edema. Skin: General: Skin is warm and dry. Capillary Refill: Capillary refill takes less than 2 seconds. Neurological: Mental Status: She is alert and oriented to person, place, and time. Comments: SILT bilateral upper extremities. Reports 50% decreased sensation on L vs R at site of IVrelated swelling. Sensation equal at shoulders. 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/5 apparently limited by hand swelling Biceps 4/5 bilaterally Deltoids 4/5 bilaterally Vital signs for last 24 hours: Temp: [37.3 ??C (99.1 ??F)-37.8 ??C (100 ??F)] 37.3 ??C (99.1 ??F) Pulse: [86-122] 86 BP: (91-144)/(46-88) 123/54 Resp: [12-24] 12 SpO2: [95 %-100 %] 95 % Hemodynamics: MAP (mmHg): [55-95] 70 Pulmonary Support: O2 Therapy: Supplemental oxygen O2 Del Method: Nasal cannula O2 Flow Rate (L/min): 2 L/min Intake/Output: Intake/Output Summary (Last 24 hours) at 09/24/2023 0716 Last data filed at 09/24/2023 0600 Gross per 24 hour Intake 990 ml Output 2025 ml Net -1035 ml Lab/Radiology/Diagnostic Review: Laboratory review: Lab results in the last 12 hours: No results found for this or any previous visit (from the past 12 hour(s)). Assessment/Plan Principal Problem: Cervical spondylosis with myelopathy Active Problems: Closed fracture of shaft of left tibia, unspecified fracture morphology, initial encounter Acute pain due to trauma Encounter for medication review Discharge planning issues Pulmonary nodule Weakness of both arms Electrolyte imbalance ICU SYSTEMS ASSESSMENT: Patient presented 09/15 to ED after ground level fall, found to have L distal tib/fib fracture and cervical myelopathy, now s/p IMN repair with ortho on 09/15 and PSF C2-7 Neuro: # Acute pain - Tylenol 1000 mg q6h lila - gabapentin 200mg TID - Robaxin 750 QID lila - oxy 5mg q4, dilaudid 0.2mg q4 prn #upper extremity weakness #cervical myelopathy # posterior cervical fusion from C2-C7 # C3, C4, C5 and C6 laminectomies # C4-5 bilateral foraminotomies - mixed reports in chart, appears to be acute on chronic upper extremity weakness noted during admission 09/18 - No pain or resistance with passive movement. 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 Cord edema noted at the C3-C4 level - ortho spine c/s: s/p PSF 09/19 -Ortho spine: q4h neurochecks, transfer to [facility] floor - PT/OT consult #at risk for delirium - delirium precautions/sleep hygiene - trazodone 50mg nightly #safety evaluation #concern for SI, resolved - on arrival to floor patient waking up from anesthesia, disoriented - at times stating I want to , please let me - on further prompting, patient denies thoughts of wanting to hurt herself or plans to hurt self, appears to not remember what she was saying - for further evaluation when more awake - Reassessment 09/20 PM onwards with patient AO x 3: no SI, daughter also reports no prior history of SI or concern for depression CV: #No acute concerns Off pressors MAP >60 Pulmonary: - SpO2 > 92% 09/23: SpO2 97% on 2L NC #pulmonary nodule - CT C/A/P (09/15): Indeterminate right lower lobe pulmonary nodule with broad base along the pleura.Recommend comparison with prior imaging if available to document stability. If no prior imaging is available, recommend follow-up CT in 6-12 months. GI: Diet: regular PUD PPx: not indicated Bowel regimen: miralax, senna Endo: #No acute concerns BG 120-140s Renal: Fluid balance goal- auto IVF: carrier D/c guerrier Electrolyte abnormality Replace PRN Heme: - Hgb > 7 - Last Hgb 9.5 < 8.4 - CTM daily CBC DVT PPX: SCDs, lovenox 09/23: H/H 9.5/30.3 from 8.4/27.3 ID: - WBC 13.9 from 10.6 - TMax 37.7 - s/p vanc and ancef in OR, no further abx indicated - will CTM for s/s infection (rising leukocytosis, fever) - daily CBC Cultures: 09/20: BCx NGTD MSK: #Left tib fib fracture - Orthopedic consult - s/p OR 09/15 IMN - NWB LLE - Maintain SLS - PT/OT - Pain control - Bone health referral at discharge #cervical myelopathy s/p PSF - as above #likely osteoporosis - intraoperative finding during PSF - bone health referral as above on discharge ICU standards of care: Restraints: None Physical therapy/Activity: as tolerated, NWB LLE Access: PIVs Other: Dispo: PT/OT evaluation for placement Code status: full code Klever Phillips MD 09/24/23 7:16 AM Cosigned by Bryan Acuna MD at 09/24/2023 12:12 PM CDT * Nette Middleton MD PhD - 09/24/2023 7:02 AM CDT Orthopaedic Spine Service Daily Progress Note Admit Date: 09/16/2023 Hospital Day: 8 [facility] Dx: C/f cervical myelopathy Relevant PMHx: None per patient Procedure(s): 09/20/2023 - C2-7 PSF w/ C3-6 decompression and bilateral C4-5 foraminotomies Interval History: 09/24/23: NAEON. AFVSS overnight. H/H: 9.5/30.3, WBC: 13.9, Cr: 0.45. D1 10/10, pulled this AM. Exam: BUE 4-/5 deltoid, BUE 4/5 biceps/triceps/WF/WE/IO. SILT throughout. RLE IP/Q 3/5 (limited by participation), o/w 5/5, LLE limited by splint. SILT throughout BLE. Plan: Q4h neurochecks. Please obtain upright c- spine XRs. Objective Vitals: 24hr Min/Max: Temp Min: 37.3 ??C (99.1 ??F) Max: 37.8 ??C (100 ??F) Pulse Min: 86 Max: 122 BP Min: 91/46 Max: 144/78 Resp Min: 12 Max: 24 SpO2 Min: 95 % Max: 100 % I/O last 2 completed shifts: In: 990 [P.O.:890; IV Piggyback:100] Out: 2024 [Urine:1985; Drains:40] No intake/output data recorded. Physical Exam: Gen: no acute distress Neuro: A&Ox3 Dressing: clean/dry/intact Wound Vac(s): Not applicable Hemo Vac(s): removed today Motor: Muscle Strength Right Left Shoulder abduction (C5) 4-/5 4-/5 Elbow flexion (C5/6) 4-/5 4-/5 Elbow extension (C7) 4/5 4/5 Wrist extension (C6) 4/5 4/5 Wrist flexion (C7) 4/5 4/5 Wedding Consultant (C8) 4/5 4/5 Interosseous of hand (T1) 4/5 4/5 Iliopsoas (L2/3) 5/5 Limited by LLE splint Quadriceps (L3/4) 5/5 Limited by LLE splint Tibialis anterior (L4/5) 5/5 Limited by LLE splint Extensor hallicus longus (L5) 5/5 5/5 Gastrocsoleus complex (S1) 5/5 Limited by LLE splint Sensation Left upper extremity: SILT C5 to T1 dermatomes. Right upper extremity: SILT C5 to T1 dermatomes. Left lower extremity: SILT L2 to S1 dermatomes. Right lower extremity: SILT L2 to S1 dermatomes. Vascular: Bilateral Upper Extremity: 2+ radial pulse, fingers WWP Bilateral Lower Extremity: 2+ DP pulse, toes WWP Lab/Diagnostic Review: Recent Labs Lab Units 09/23/23 1604 09/20/23 0952 09/19/23 2358 SODIUM mmol/L 141 < > 141 POTASSIUM PLASMA mmol/L 4.5 < > 3.6 CHLORIDE mmol/L 104 < > 103 CO2 mmol/L 32 < > 29 ANIONGAP mmol/L 5 < > 9 GLUCOSE mg/dL 121 < > 125 POC GLUCOSE MONITOR -- < > -- BUN SERUM mg/dL 10 < > 8 CREATININE mg/dL 0.45* < > 0.44* CALCIUM mg/dL 8.4* < > 8.4* WBC K/cumm 13.9* < > 9.5 HEMOGLOBIN, POC -- < > -- HEMOGLOBIN g/dL 9.5* < > 9.8* HEMATOCRIT % 30.3* < > 30.8* HEMATOCRIT POC -- < > -- PLATELETS K/cumm 425* < > 270 APTT sec -- -- 30 INR -- -- 1.26* < > = values in this interval not displayed. Micro: Lab Results Component Value Date MICROBIOLOGY Preliminary Report: No growth to date. 09/21/2023 MICROBIOLOGY Preliminary Report: No growth to date. 09/21/2023 Assessment/Plan: 78 y.o. female with above injury/deformity. Patient is now status post C2-7 PSF w C3-6 decompression and bilateral C4-5 foraminotomies. Precautions: cervical precautions Immobilization: Iroquois J Activity: Up ad guy DVT ppx: SQH Therapy: PT/OT for OOB/mobilization as tolerated Drain: removed Antibiotics: Periop ancef Cultures: n/a Guerrier: Per primary Wound Care: Maintain surgical dressing, will be managed by Ortho team Diet: per primary Imaging: upright c-spine XR Additional Needs: none Ortho Spine will continue to follow this patient's hospital course. Dispo: Pending progress, postoperative recovery, and progress with therapy Follow-Up: Patient has follow up scheduled on 10/16/[address] Rodriguez located at [address] Nette Middleton MD, PhD Department of Orthopaedic Surgery PGY-1 [facility] in [facility] Please call with questions during daytime. See below for overnight issues. If you know the resident's name on the appropriate orthopaedic surgery team, please use [email or web address] to page resident directly. If questions arise and the appropriate resident can't be reached or you are calling overnight, please contact [phone] ([facility] 7:30 PM - 6:30 AM - Floor Resident) or [phone] (24 hours/day - Consult Resident) Cosigned by Hans Rodriguez MD at 09/24/2023 11:41 AM CDT * Isidro Gomes MD - 09/24/2023 6:24 AM CDT Images from the original note were not included. [facility] Trauma C Service- Floor Daily Progress Note Admit: 09/16/2023 2:23 AM Date: September 24, 2023 Length of Stay: 8 Attending: Ibrahima Middleton MD POD:5 Days Post-Op Procedure(s): FUSION CERVICAL - POSTERIOR WITH INSTRUMENTATION C2-7; C3-6 Decompression; C4-5 Foraminotomies Subjective History: TRAUMA C 78 y.o. female denies PMH s/p GLF. #L distal tib/fib fx #C3-C4 spinal stenosis Procedures: 09/15: L tib fib IMN 09/19: PSF C2-C7 + C3-C6 laminectomies Interval History: She is POD 4 from posterior cervical fusion+ instrumentation from C2-7; C3-6 laminectomies, C4-5 bilateral foraminotomies Afebrile; NGTD in BCx Plan: OOB for PT OT Pain control Appreciate ortho spine recs regarding neuro check frequency Needs upright cspine XRs per ortho spine Pulm hygiene, IS Can transfer out of the ICU, to floor Objective Medications: Current Facility-Administered Medications: acetaminophen (TYLENOL) tablet 1,000 mg, 1,000 mg, oral, Q6H, Amy Lara NP, 1,000 mg at 09/23/23 231 benzocaine-menthoL (CHLORASEPTIC) lozenge 1 lozenge, 1 lozenge, mouth/throat, Q2H PRN, Xiao Gomez MD, 1 lozenge at 09/22/232101 bisacodyL (DULCOLAX) suppository 10 mg, 10 mg, rectal, BID PRN, Klever Phillips MD, 10 mg at09/23/23 124 enoxaparin (LOVENOX) syringe 30 mg, 30 mg, subcutaneous, Q12H LILA, Klever Phillips MD, 30 mgat 09/23/232029 gabapentin (NEURONTIN) capsule 300 mg, 300 mg, oral, BID, Klever Phillips MD, 300 mg at 09/23/232023 HYDROmorphone (DILAUDID) injection 0.2 mg, 0.2 mg, intravenous, Q4H PRN, Sterling Patrick MD, 0.2 mg at 09/24/23 0534 lidocaine (ASPERCREME) 4 % patch 2 patch, 2 patch, transdermal, Q24H, Hannah Chun NP, 2 patch at 09/23/23 1359 methocarbamoL (ROBAXIN) tablet 1,000 mg, 1,000 mg, oral, QID, Klever Phillips MD, 1,000 mg at 09/23/23 2020 naloxone (NARCAN) 0.4 mg/mL injection 0.04-0.4 mg, 0.04-0.4 mg, intravenous, Q10 Min PRN, Gwendolyn Bee MD ondansetron (ZOFRAN) injection 4 mg, 4 mg, intravenous, Q6H PRN, Gwendolyn Bee MD oxyCODONE (ROXICODONE) tablet 5 mg, 5 mg, oral, Q4H PRN, Klever Phillips MD, 5 mg at 09/24/23 0404 polyethylene glycol (MIRALAX) packet 17 g, 17 g, oral, Daily, Hannah Chun NP, 17 g at 09/22/23 0830 senna-docusate (PERICOLACE) 8.6-50 mg per tablet 1 tablet, 1 tablet, oral, BID, Marcos Salazar MD, 1 tablet at 09/23/23 0853 sodium chloride (OCEAN) 0.65 % nasal spray 2 spray, 2 spray, each nostril, Q2H PRN, Klever Phillips MD sodium chloride 0.9% flush 0.5-20 mL, 0.5-20 mL, intra-catheter, Q8H LILA, Marcos Salazar MD, 10 mL at 09/23/23 1359 sodium chloride 0.9% flush 0.5-20 mL, 0.5-20 mL, intra-catheter, PRN, Marcos Salazar MD traZODone (DESYREL) tablet 50 mg, 50 mg, oral, Nightly, Hannah Chun NP, 50 mg at 024 Past Medical: No past medical history on file. Surgical History: History reviewed. No pertinent surgical history. Is&Os: I/O last 2 completed shifts: In: 1040 [P.O.:990; IV Piggyback:50] Out: 1959 [Urine:1940; Drains:20] I/O this shift: In: 640 [P.O.:540; IV Piggyback:100] Out: 1110 [Urine:1080; Drains:30] Physical Exam: 24hr Min/Max: Temp Min: 37.3 ??C (99.1 ??F) Max: 37.8 ??C (100 ??F) Pulse Min: 86 Max: 122 BP Min: 91/46 Max: 144/78 Resp Min: 12 Max: 24 SpO2 Min: 95 % Max: 100 % Physical Exam Vitals reviewed. Constitutional: Appearance: Normal appearance. Neck: Comments: Neck in c-collar Cardiovascular: Rate and Rhythm: Normal rate. Pulmonary: Effort: Pulmonary effort is normal. Abdominal: Palpations: Abdomen is soft. Musculoskeletal: General: Tenderness present. Normal range of motion. Cervical back: Normal range of motion. Comments: LLE in splint Skin: General: Skin is warm. Neurological: General: No focal deficit present. Mental Status: She is alert and oriented to person, place, and time. Labs/Imaging: Recent Labs Lab Units 09/23/23160309/22/23200309/21/232050 WBC K/cumm 13.9* 10.6* 12.3* HEMOGLOBIN g/dL 9.5* 8.4* 9.1* HEMATOCRIT % 30.3* 27.3* 28.1* PLATELETS K/cumm 425* 352 348 Recent Labs Lab Units 09/23/23 16009/22/23200309/22/23 0716 09/21/23 2334 09/21/232050 SODIUM mmol/L 141 138 -- -- 139 POTASSIUM PLASMA mmol/L 4.5 4.5 -- -- 4.3 CHLORIDE mmol/L 104 102 -- -- 105 CO2 mmol/L 32 30 -- -- 29 BUN SERUM mg/dL 10 9 -- -- 6 CREATININE mg/dL 0.45* 0.42* -- -- 0.37* GLUCOSE mg/dL 121 135 -- -- 143 POC GLUCOSE MONITOR mg/dL -- -- 105 < > -- CALCIUM mg/dL 8.4* 8.0* -- -- 7.8* < > = values in this interval not displayed. Recent Labs Lab Units 09/19/23 2358 PROTIME (PT) sec 14.4* INR 1.26* MRI Cervical Spine WO Contrast Result Date: 09/19/2023 1. Severe high-grade spinal canal stenosis at C3-C4 level secondary to congenitally narrowed spinalcanal, multilevel disc osteophyte complex, and ligamentum flavum thickening. Cord edema is noted atthe C3-C4 level. 2. Other severe multilevel degenerative changes and multilevel severe spinal canal stenosis as detailed above. Findings regarding high-grade severe spinal canal stenosis and cord edema at C3-C4 were discussed with Dr. Hans Chance at 09/18/2023 8:[address] Cuate Mauricio. Dictated by: Cuate Mauricio MD The radiology attending physician has personally reviewed this study, and had reviewed and/or edited this written report and agrees with it. Electronically signed by: Inocencio Hilario M.D. I have independently reviewed and interpreted all relevant lab and radiographic data. Assessment/Plan Trauma Surgical Assessment and Plan Electrolyte imbalance Assessment & Plan - 09/17: Mg 1.7, Phos 2.9, K 3.1 - Magnesium and KPhos treated - 09/17: Mg 1.7, Phos 2.2, K 3.7 - Magnesium and KPhos treated - Monitor electrolytes Weakness of both arms Assessment & Plan - Pe patient, weakness started after fall. No weakness of arms prior to fall - No pain or resistance with passive movement. - CT c spine without injury, however spinal cord and neuroforaminal stenosis noted on CT - MRI: Severe high-grade spinal canal stenosis at C3-C4 level secondary to congenitally narrowed spinal canal, multilevel disc osteophyte complex, and ligamentum flavum thickening. Cord edema noted at the C3-C4 level - 09/17: Ortho Spine consulted - 09/18: Operative intervention recommended, patient discussing with family and spine team - PT/OT consult - Elevate arms for swelling - 09/19: OR w/ spine: posterior cervical fusion+ instrumentation from C2-7; C3-6 laminectomies, C4-5 bilateral foraminotomies - In SICU on naman for MAP augmentation 80-95 for 48h postop - Needs Iroquois J and upright cspine XRs - 09/22: MAP goals liberalized; off pressor support Pulmonary nodule Assessment & Plan - CT C/A/P (09/15): Indeterminate right lower lobe pulmonary nodule with broad base along the pleura.Recommend comparison with prior imaging if available to document stability. If no prior imaging is available, recommend follow-up CT in 6-12 months. Discharge planning issues Assessment & Plan 09/16: Pending PT/OT for discharge planning Encounter for medication review Assessment & Plan - No past medical history, takes no medications at home Acute pain due to trauma Assessment & Plan - Tylenol 1000 mg q6h - Robaxin 500 mg TID, increased to 750 QID on 09/18 - Oxycodone 5 mg q4h PRN Closed fracture of shaft of left tibia, unspecified fracture morphology, initial encounter Assessment & Plan #Left tib fib fracture - Orthopedic consult - s/p OR 09/15 IMN - NWB LLE - Maintain SLS - PT/OT - Pain control - Bone health referral at discharge FEN: These fluid and electrolyte abnormalities are being treated, evaluated or monitored: Hypokalemia--potassium replacement Hypomagnesemia--replace and monitor Hypophosphatemia--replace and monitor Lines/Drains/Tubes: PIV DVT Prophylaxis: Lovenox Diet: Adult Diet Regular Activity: as tolerated, NWB LLE GI Prophylaxis: none Code Status: Full Code Total time spent included the following activities caring for this patient: Patient chart review, Examination and evaluation, Counseling/educating patient/family/caregiver, Ordering medications/tests/procedures, Referring & communicating with other health career coach, and Independent inte rpretation of results 45 minutes All care plans discussed with rounding/operative attending: MD Isidro Kong MD Cosigned by Desirae Akins MD at 09/24/2023 5:20 PM CDT Associated attestation - Desirae Akins MD - 09/24/2023 5:20 PM CDT I have seen and examined the patient on 09/24/23. I agree with the findings and plan of care as discussed with the resident. I spent 5 minutes reviewing the chart, discussing the plan with the patient/family, discussing the plan with the team, and documenting in the medical record. This does not include any time spent on separately billable procedures. MD Maryluo Kong-[facility] Acute and Critical Care Surgery [facility] * Plog, Trevor Celestin MD PhD - 09/23/2023 6:20 PM CDT Surgical ICU Daily Progress Team: Red PM 1 Subjective Patient is a 78 y.o. female admitted on 09/16/2023 2:23 AM. Patient presented 09/15 to ED after ground level fall, found to have L distal tib/fib fracture s/p IMN repair with ortho on 09/15. Found to have possibly worsening upper extremity weakness, MRI findings of spinal cord deformity, and ultimately went to OR with ortho spine for spinal decompression. In OR patient had stable neuromonitoring exceptfor waxing and waning C5. Interval History: 09/22 AM -Ortho spine: q3h neurochecks, Iroquois J, OOBTC/PT as tolerated, upright c-spine XR -PE weaned -TTOU pending bed Objective Physical Exam: Physical Exam HENT: Head: Normocephalic and atraumatic. Right Ear: External ear normal. Left Ear: External ear normal. Nose: Nose normal. Mouth/Throat: Mouth: Mucous membranes are moist. Eyes: Conjunctiva/sclera: Conjunctivae normal. Cardiovascular: Rate and Rhythm: Normal rate and regular rhythm. Pulses: Normal pulses. Heart sounds: Normal heart sounds. Pulmonary: Effort: Pulmonary effort is normal. Breath sounds: Normal breath sounds. Abdominal: General: Abdomen is flat. Bowel sounds are normal. There is no distension. Palpations: Abdomen is soft. Tenderness: There is no abdominal tenderness. Musculoskeletal: Right lower leg: No edema. Left lower leg: No edema. Skin: General: Skin is warm and dry. Capillary Refill: Capillary refill takes less than 2 seconds. Neurological: Mental Status: She is alert and oriented to person, place, and time. Comments: SILT bilateral upper extremities. Reports 50% decreased sensation on L vs R at site of IVrelated swelling. Sensation equal at shoulders. 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/5 apparently limited by hand swelling Biceps 4/5 bilaterally Deltoids 4/5 bilaterally Vital signs for last 24 hours: Temp: [37.3 ??C (99.1 ??F)-37.9 ??C (100.2 ??F)] 37.7 ??C (99.9 ??F) Pulse: [90-122] 122 BP: (100-143)/(45-88) 100/50 Resp: [11-26] 16 SpO2: [91 %-100 %] 95 % Arterial Line BP: (92-114)/(47-63) 113/63 Hemodynamics: MAP (mmHg): [55-95] 55 Pulmonary Support: O2 Therapy: Supplemental oxygen O2 Del Method: Nasal cannula O2 Flow Rate (L/min): 2 L/min Intake/Output: Intake/Output Summary (Last 24 hours) at 09/23/2023 1820 Last data filed at 09/23/2023 1700 Gross per 24 hour Intake 1040 ml Output 1960 ml Net -920 ml Lab/Radiology/Diagnostic Review: Laboratory review: Lab results in the last 12 hours: Recent Results (from the past 12 hour(s)) CBC without differential Collection Time: 09/23/23 4:04 PM Result Value Ref Range WBC 13.9 (H) 3.8 - 9.9 K/cumm Hgb 9.5 (L) 11.9 - 15.5 g/dL Hct 30.3 (L) 35.6 - 45.5 % Plt 425 (H) 150 - 400 K/cumm MPV 10.0 9.1 - 12.3 fL RBC 3.25 (L) 3.90 - 5.20 M/cumm MCV 93.2 81.3 - 96.4 fL MCH 29.2 27.1 - 33.3 pg MCHC 31.4 (L) 32.3 - 35.7 g/dL RDW CV 13.8 11.1 - 14.9 % RDW SD 46.5 35.7 - 48.1 fL NRBC abs 0.00 0.00 - 0.01 K/cumm Magnesium Collection Time: 09/23/23 4:04 PM Result Value Ref Range Magnesium 1.9 1.4 - 2.5 mg/dL Assessment/Plan Principal Problem: Cervical spondylosis with myelopathy Active Problems: Closed fracture of shaft of left tibia, unspecified fracture morphology, initial encounter Acute pain due to trauma Encounter for medication review Discharge planning issues Pulmonary nodule Weakness of both arms Electrolyte imbalance ICU SYSTEMS ASSESSMENT: Patient presented 09/15 to ED after ground level fall, found to have L distal tib/fib fracture and cervical myelopathy, now s/p IMN repair with ortho on 09/15 and PSF C2-7 Neuro: # Acute pain - Tylenol 1000 mg q6h lila - gabapentin 200mg TID - Robaxin 750 QID lila - oxy 5mg q4, dilaudid 0.2mg q4 prn #upper extremity weakness #cervical myelopathy # posterior cervical fusion from C2-C7 # C3, C4, C5 and C6 laminectomies # C4-5 bilateral foraminotomies - mixed reports in chart, appears to be acute on chronic upper extremity weakness noted during admission 09/18 - No pain or resistance with passive movement. 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 Cord edema noted at the C3-C4 level - ortho spine c/s: s/p PSF 09/19 -Ortho spine: q3h neurochecks, transfer to ACCS OU - PT/OT consult #at risk for delirium - delirium precautions/sleep hygiene - trazodone 50mg nightly #safety evaluation #concern for SI, resolved - on arrival to floor patient waking up from anesthesia, disoriented - at times stating I want to , please let me - on further prompting, patient denies thoughts of wanting to hurt herself or plans to hurt self, appears to not remember what she was saying - for further evaluation when more awake - Reassessment 09/20 PM onwards with patient AO x 3: no SI, daughter also reports no prior history of SI or concern for depression CV: #No acute concerns Off pressors MAP >60 Pulmonary: - SpO2 > 92% 09/22: SpO2 97% on 2L NC #pulmonary nodule - CT C/A/P (09/15): Indeterminate right lower lobe pulmonary nodule with broad base along the pleura.Recommend comparison with prior imaging if available to document stability. If no prior imaging is available, recommend follow-up CT in 6-12 months. GI: Diet: regular PUD PPx: not indicated Bowel regimen: miralax, senna Endo: #No acute concerns BG 120-140s Renal: Fluid balance goal- auto IVF: carrier Guerrier to gravity Electrolyte abnormality Replace PRN Heme: - Hgb > 7 - Last Hgb 9.5 < 8.4 - CTM daily CBC DVT PPX: SCDs, lovenox ID: - WBC 13.9 < 10.6 - TMax 37.7 - s/p vanc and ancef in OR, no further abx indicated - will CTM for s/s infection (rising leukocytosis, fever) - daily CBC Cultures: 09/20: BCx NGTD MSK: #Left tib fib fracture - Orthopedic consult - s/p OR 09/15 IMN - NWB LLE - Maintain SLS - PT/OT - Pain control - Bone health referral at discharge #cervical myelopathy s/p PSF - as above #likely osteoporosis - intraoperative finding during PSF - bone health referral as above on discharge ICU standards of care: Restraints: None Physical therapy/Activity: as tolerated, NWB LLE Access: PIVs Other: Dispo: PT/OT evaluation for placement Code status: full code Trevor Olivares MD PhD 09/23/23 6:22 PM Cosigned by Mally Roberts MD at 09/24/2023 5:03 AM CDT Associated attestation - Mally Roberts MD - 09/24/2023 5:03 AM CDT I have seen and examined the patient on 09/23/2023. I agree with the findings and plan of care as documented in the resident's/fellow's note.. * Hannah Ludwig OT - 09/23/2023 8:45 AM CDT Occupational Therapy Occupational Therapy Progress Note NOTE: This is a summary note of the moran components of the treatment session. For full details, review chart for all flowsheets documented on by this occupational therapy clinician on this date. Vitalsigns documented in vital signs flowsheet. Care plan progress documented in Care Plan Activity. For questions, please review the treatment team and contact the occupational therapist currently assigned to this patient. If an occupational therapist is not assigned to this patient, please call [phone]. 09/23/23 0870 General Session Type Re-Evaluation (s/p cervical spinal fusion) OT Received On 09/23/23 Safe Environment Arm band checked Subjective Agreeable to Therapy Family/Caregiver Present No Precautions Precautions Fall risk Weight Bearing Restrictions Yes LLE Weight Bearing NWB Braces/Orthoses Cervical collar (Iroquois J) Precaution Handout Issued No Precaution Comments verbally reviewed precautions with patient Pain Assessment Pain Assessment No/denies pain Pain Score 5 - Moderate pain Patient's Stated Pain Goal No pain Pain Type Surgical pain Pain Location Back (Cervical) Pain Orientation Left Pain Interventions Repositioned Balance Tests Balance Tests Yes Tinetti Sitting Balance 0 Arises 0 Attempts to Arise 0 Immediate Standing Balance (First 5 Seconds) 0 Standing Balance 0 Nudged 0 Eyes Closed 0 Turned 360 Degrees: Steadiness 0 Turned 360 Degrees: Continuity of Steps 0 Sitting Down 0 Balance Score 0 Balance Balance Yes Static Sitting Balance Static Sitting-Balance Support Feet supported;Bilateral upper extremity supported Static Sitting-Sitting Surface Bed Static Sitting-Level of Assistance Moderate assistance Static Sitting-Comment/# of Minutes Mod A for trunk control and support due to posterior and left lateral lean. Pt with increased pain in BUE and difficulty to grasp bed rail to help hold self in upright seated position ADL ADLS (WDL) X Feeding Feeding: Where assessed Sitting;Chair Feeding: Level of assistance Maximum Assist Feeding: Assistance with Manipulation of containers;Scooping food;Hand to mouth;Appropriate use of utensils Grooming Grooming: Where assessed Chair Grooming: Level of assistance Maximum Assist Grooming: Assistance with Increased time to complete;Use of adaptive equipment;Manipulation of containers;Reaching all areas of head/face LE Dressing LE Dressing: Where assessed Supine, bed LE Dressing: Level of assistance Dependent Toileting Toileting: Where assessed Supine, bed Toileting: Level of assistance Dependent Bed Mobility Bed Mobility Yes Bed Mobility 1 Bed Mobility From 1 Supine Bed Mobility Type 1 To and from Bed Mobility to 1 Rolling right;Rolling left Level of Assistance 1 Maximum Assist Bed Mobility Comments 1 Max A for trunk rotation, BLE management, and force production Bed Mobility 2 Bed Mobility From 2 Supine Bed Mobility Type 2 To Bed Mobility to 2 Edge of Bed Level of Assistance 2 Maximum Assist Bed Mobility Comments 2 Max A for trunk elevation, BLE management, and force production Transfers Transfer Yes Transfer 1 Transfer From 1 Bed Transfer Type 1 To Transfer to 1 Chair with arms Technique 1 Lateral Transfer Device 1 Mechanical device Transfer Level of Assistance 1 Dependent Trials/Comments 1 Use of frantz Toilet Transfers Toilet Transfer From Bed Toilet Transfer Type To Toilet Transfer to Standard bedside commode (simulated with chair) Toilet Transfer Technique Lateral Toilet Transfer: Equipment Mechanical Device Toilet Transfers Dependent Toilet Transfers Comments Use of frantz RUE Assessment RUE Assessment X RUE Comments Decreased buckle stringer strength noted LUE Assessment LUE Assessment X LUE Comments Decreased buckle stringer strength noted Cognition Arousal/Alertness Alert;Appropriate responses to stimuli Attention Span Attends with cues to redirect Memory Decreased short term memory Current communication Appears Intact Orientation Oriented X4 (person, place, time, situation) Following Commands Follows multistep commands with repetition Safety Judgment Decreased awareness of need for safety Awareness of Errors Assistance required to correct errors made;Assistance required to identify errors made Insight Decreased awareness of deficits Problem Solving Assistance required to implement solutions;Assistance required to generate solutions;Assistance required to identify errors made Compliance/Behavior Easy to engage Perseveration Present - verbal Daily Activity - 6 Clicks Putting on and taking off regular lower body clothing 1 Bathing 1 Toileting 1 Putting on and taking off upper body clothing 1 Personal Grooming 2 Eating Meals 2 Total Score (range 6-24) 8 Score Interpretation 22.86 Safe Environment End of Therapy Session Safe Environment End of Therapy Session Patient left in chair;RN notified;Overbed table within reach;Call light within reach Assessment Problem List Decreased upper extremity range of motion;Decreased upper extremity strength;Decreasedsafe judgment during ADL;Decreased cognition;Decreased endurance;Decreased balance;Decreased functional mobility;Decreased fine motor control;Decreased gross motor control;Decreased ADL independence;Decreased IADL independence;Decreased UE function;Decreased trunk control for functional activities;Decreased response to environment;Poor/Decreased functional positioning;Decreased upper extremity function;Decreased feeding skills;Decreased ROM;Pain Barriers to Discharge Current Mobility Status;Current ADL Status;Decreased caregiver support;Decreased safety awareness;Cognition Barrier Comments fall risk Plan Plan Continue with current plan;If this is the last note, consider this the discharge summary Recommendation/Plan OT Recommendation Residential Facility Patient at high risk for Falls;Readmission;Injury due to balance deficits;Injury due to impaired cognition;Injury due to reduced functional status;Injury due to decreased ability to care for self Recommend SNF due to Risk of injury at home;Unable to safely care for self in the home;Skilled therapy needed to address care for self in the home;Skilled therapy needed to address functional deficits;Skilled therapy needed for patient to return to prior level of independence OT Frequency during current admission 5-7x/wk Treatment/Interventions during current admission Balance Training;Bed mobility;ADL/IADL retraining;Endurance training;Functional activity;Functional mobility training;Functional transfer training;Strengthening;Therapeutic activity;Therapeutic exercise;Transfer training Progress during current admission Progressing toward goals OT - Next Appointment 09/24/23 Time Calculation Start Time 0845 Stop Time 0910 Time Calculation (min) 25 min Multi-Disciplinary Problems (from Occupational Therapy) Active Problems Problem: Dressings Lower Extremities Start Date: 09/18/23 Problem: Dressing Upper Extremities Start Date: 09/18/23 Goal Start Date Expected End Date End Date STG - Patient will dress upper body 09/18/23 09/25/23 -- Goal Details: With Min A Problem: Grooming Start Date: 09/18/23 Goal Start Date Expected End Date End Date STG - Patient will complete grooming 09/18/23 09/25/23 -- Goal Details: Seated EOB with Min A Problem: Transfers Start Date: 09/18/23 Goal Start Date Expected End Date End Date STG - Patient will perform toilet transfer 09/18/23 09/25/23 -- Goal Details: With Mod A Problem: OT Misc Start Date: 09/18/23 Goal Start Date Expected End Date End Date OT LTG - Misc 1 09/18/23 10/02/23 -- Goal Details: Pt. Will perform all ADLs with Mod (I) using AE/adaptive device PRN. * Nette Middleton MD PhD - 09/23/2023 7:41 AM CDT Orthopaedic Spine Service Daily Progress Note Admit Date: 09/16/2023 Hospital Day: 7 Michael/Alina Dx: C/f cervical myelopathy Relevant PMHx: None per patient Procedure(s): 09/20/2023 - C2-7 PSF w/ C3-6 decompression and bilateral C4-5 foraminotomies Interval History: 09/23/23: NAEON. AFVSS overnight. H/H: 8.4/27.3, WBC: 10.6, Cr: 0.42. D1 output overnight not charted, 30 during AM shift. Exam: RUE 2/5 deltoid, LUE 3/5 deltoid, BUE 4/5 biceps/triceps, 4/5 WF/WE/IO. SILT throughout. RLE 5/5, LLE limited by splint. SILT throughout BLE. Plan: Q3h neurochecks. Maintain drain. Please obtain upright c-spine XRs. Objective Vitals: 24hr Min/Max: Temp Min: 37.3 ??C (99.1 ??F) Max: 37.9 ??C (100.2 ??F) Pulse Min: 80 Max: 110 BP Min: 88/37 Max: 143/76 Resp Min: 5 Max: 26 SpO2 Min: 91 % Max: 99 % I/O last 2 completed shifts: In: 2175.7 [P.O.:1720; I.V.:405.7; IV Piggyback:50] Out: 1710 [Urine:1670; Drains:40] No intake/output data recorded. Physical Exam: Gen: no acute distress Neuro: A&Ox3 Dressing: clean/dry/intact Wound Vac(s): Not applicable Hemo Vac(s): Holding suction nicely, no apparent leaks Motor: Muscle Strength Right Left Shoulder abduction (C5) 2/5 3/5 Elbow flexion (C5/6) 4/5 4/5 Elbow extension (C7) 4/5 4/5 Wrist extension (C6) 4/5 4/5 Wrist flexion (C7) 4/5 4/5 Wedding Consultant (C8) 4/5 4/5 Interosseous of hand (T1) 4/5 4/5 Iliopsoas (L2/3) 5/5 Limited by LLE splint Quadriceps (L3/4) 5/5 Limited by LLE splint Tibialis anterior (L4/5) 5/5 Limited by LLE splint Extensor hallicus longus (L5) 5/5 5/5 Gastrocsoleus complex (S1) 5/5 Limited by LLE splint Sensation Left upper extremity: SILT C5 to T1 dermatomes. Right upper extremity: SILT C5 to T1 dermatomes. Left lower extremity: SILT L2 to S1 dermatomes. Right lower extremity: SILT L2 to S1 dermatomes. Vascular: Bilateral Upper Extremity: 2+ radial pulse, fingers WWP Bilateral Lower Extremity: 2+ DP pulse, toes WWP Lab/Diagnostic Review: Recent Labs Lab Units 09/22/23200309/20/2395109/19/23 2358 SODIUM mmol/L 138 < > 141 POTASSIUM PLASMA mmol/L 4.5 < > 3.6 CHLORIDE mmol/L 102 < > 103 CO2 mmol/L 30 < > 29 ANIONGAP mmol/L 6 < > 9 GLUCOSE mg/dL 135 < > 125 POC GLUCOSE MONITOR -- < > -- BUN SERUM mg/dL 9 < > 8 CREATININE mg/dL 0.42* < > 0.44* CALCIUM mg/dL 8.0* < > 8.4* WBC K/cumm 10.6* < > 9.5 HEMOGLOBIN, POC -- < > -- HEMOGLOBIN g/dL 8.4* < > 9.8* HEMATOCRIT % 27.3* < > 30.8* HEMATOCRIT POC -- < > -- PLATELETS K/cumm 352 < > 270 APTT sec -- -- 30 INR -- -- 1.26* < > = values in this interval not displayed. Micro: Lab Results Component Value Date MICROBIOLOGY Preliminary Report: No growth to date. 09/21/2023 MICROBIOLOGY Preliminary Report: No growth to date. 09/21/2023 Assessment/Plan: 78 y.o. female with above injury/deformity. Patient is now status post C2-7 PSF w C3-6 decompression and bilateral C4-5 foraminotomies. Precautions: n/a Immobilization: Iroquois J Activity: Up ad guy DVT ppx: Holding for OR today Therapy: PT/OT for OOB/mobilization as tolerated Drain: Continue until dry Antibiotics: Periop ancef Cultures: n/a Guerrier: Per primary Wound Care: Maintain surgical dressing, will be managed by Ortho team Diet: per primary Imaging: upright c-spine XR Additional Needs: none Ortho Spine will continue to follow this patient's hospital course. Dispo: Pending progress, postoperative recovery, and progress with therapy Follow-Up: We have not yet scheduled this patient for an appointment, but we will contact the patient with the details including the timing and location of their appointment once it is scheduled Nette Middleton MD, PhD Department of Orthopaedic Surgery PGY-1 [facility] in [facility] Please call with questions during daytime. See below for overnight issues. If you know the resident's name on the appropriate orthopaedic surgery team, please use [email or web address] to page resident directly. If questions arise and the appropriate resident can't be reached or you are calling overnight, please contact [phone] ([place]- 7:30 PM - 6:30 AM - Floor Resident) or [phone] (24 hours/day - Consult Resident) Cosigned by Hans Rodriguez MD at 09/23/2023 8:44 AM CDT Associated attestation - Hans Rodriguez MD - 09/23/2023 8:44 AM CDT I personally examined Ms. Domínguez this morning. She is slowly getting improvement in her bilateral deltoids. On exam, she had 4-/5 strength in the bilateral deltoids. Her mentation also seems significantly improved. I agree with the remainder of the exam by Dr. Middleton. * Klever Phillips MD - 09/23/2023 7:14 AM CDT Surgical ICU Daily Progress Team: Red AM 1 Subjective Patient is a 78 y.o. female admitted on 09/16/2023 2:23 AM. Patient presented 09/15 to ED after ground level fall, found to have L distal tib/fib fracture s/p IMN repair with ortho on 09/15. Found to have possibly worsening upper extremity weakness, MRI findings of spinal cord deformity, and ultimately went to OR with ortho spine for spinal decompression. In OR patient had stable neuromonitoring exceptfor waxing and waning C5. Interval History: 6/12 AM -Ortho spine: q3h neurochecks, Maxx Negro, OOBTC/PT as tolerated -PE weaned -TTOU pending bed Objective Physical Exam: Physical Exam HENT: Head: Normocephalic and atraumatic. Right Ear: External ear normal. Left Ear: External ear normal. Nose: Nose normal. Mouth/Throat: Mouth: Mucous membranes are moist. Eyes: Conjunctiva/sclera: Conjunctivae normal. Cardiovascular: Rate and Rhythm: Normal rate and regular rhythm. Pulses: Normal pulses. Heart sounds: Normal heart sounds. Pulmonary: Effort: Pulmonary effort is normal. Breath sounds: Normal breath sounds. Abdominal: General: Abdomen is flat. Bowel sounds are normal. There is no distension. Palpations: Abdomen is soft. Tenderness: There is no abdominal tenderness. Musculoskeletal: Right lower leg: No edema. Left lower leg: No edema. Skin: General: Skin is warm and dry. Capillary Refill: Capillary refill takes less than 2 seconds. Neurological: Mental Status: She is alert and oriented to person, place, and time. Comments: SILT bilateral upper extremities. Reports 50% decreased sensation on L vs R at site of IVrelated swelling. Sensation equal at shoulders. 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/5 apparently limited by hand swelling Biceps 4/5 bilaterally Deltoids 4/5 bilaterally Vital signs for last 24 hours: Temp: [37.3 ??C (99.1 ??F)-37.9 ??C (100.2 ??F)] 37.6 ??C (99.7 ??F) Pulse: [80-110] 95 BP: (88-143)/(37-76) 116/54 Resp: [5-26] 12 SpO2: [91 %-99 %] 97 % Arterial Line BP: (92-144)/(47-90) 113/63 Hemodynamics: MAP (mmHg): [47-91] 69 Pulmonary Support: O2 Therapy: Supplemental oxygen O2 Del Method: Nasal cannula O2 Flow Rate (L/min): 2 L/min Intake/Output: Intake/Output Summary (Last 24 hours) at 09/23/2023 0714 Last data filed at 09/23/2023 0600 Gross per 24 hour Intake 2165.7 ml Output 1630 ml Net 535.7 ml Lab/Radiology/Diagnostic Review: Laboratory review: Lab results in the last 12 hours: Recent Results (from the past 12 hour(s)) Basic metabolic panel Collection Time: 09/22/23 8:04 PM Result Value Ref Range Sodium 138 135 - 145 mmol/L Potassium, pl 4.5 3.3 - 4.9 mmol/L Chloride 102 97 - 110 mmol/L CO2 30 22 - 32 mmol/L Anion gap 6 2 - 15 mmol/L BUN 9 6 - 25 mg/dL Creatinine 0.42 (L) 0.60 - 1.10 mg/dL Glucose 135 70 - 199 mg/dL Calcium 8.0 (L) 8.5 - 10.3 mg/dL CBC without differential Collection Time: 09/22/23 8:04 PM Result Value Ref Range WBC 10.6 (H) 3.8 - 9.9 K/cumm Hgb 8.4 (L) 11.9 - 15.5 g/dL Hct 27.3 (L) 35.6 - 45.5 % Plt 352 150 - 400 K/cumm MPV 10.0 9.1 - 12.3 fL RBC 2.91 (L) 3.90 - 5.20 M/cumm MCV 93.8 81.3 - 96.4 fL MCH 28.9 27.1 - 33.3 pg MCHC 30.8 (L) 32.3 - 35.7 g/dL RDW CV 13.7 11.1 - 14.9 % RDW SD 46.5 35.7 - 48.1 fL NRBC abs 0.00 0.00 - 0.01 K/cumm Magnesium Collection Time: 09/22/23 8:04 PM Result Value Ref Range Magnesium 1.8 1.4 - 2.5 mg/dL Phosphorus Collection Time: 09/22/23 8:04 PM Result Value Ref Range Phosphorus, pl 1.9 (L) 2.3 - 4.5 mg/dL Type and screen Collection Time: 09/22/23 8:04 PM Result Value Ref Range ABO Rh O Positive Alejandrina, indirect Negative eGFR Collection Time: 09/22/23 8:04 PM Result Value Ref Range eGFR >90 >=60 mL/min/1.73 m2 Assessment/Plan Principal Problem: Cervical spondylosis with myelopathy Active Problems: Closed fracture of shaft of left tibia, unspecified fracture morphology, initial encounter Acute pain due to trauma Encounter for medication review Discharge planning issues Pulmonary nodule Weakness of both arms Electrolyte imbalance ICU SYSTEMS ASSESSMENT: Patient presented 09/15 to ED after ground level fall, found to have L distal tib/fib fracture and cervical myelopathy, now s/p IMN repair with ortho on 09/15 and PSF C2-7 Neuro: # Acute pain - Tylenol 1000 mg q6h lila - gabapentin 200mg TID - Robaxin 750 QID lila - oxy 5mg q4, dilaudid 0.2mg q4 prn #upper extremity weakness #cervical myelopathy # posterior cervical fusion from C2-C7 # C3, C4, C5 and C6 laminectomies # C4-5 bilateral foraminotomies - mixed reports in chart, appears to be acute on chronic upper extremity weakness noted during admission 09/18 - No pain or resistance with passive movement. 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 Cord edema noted at the C3-C4 level - ortho spine c/s: s/p PSF 09/19 -Ortho spine: q3h neurochecks, transfer to ACCS OU - PT/OT consult #at risk for delirium - delirium precautions/sleep hygiene - trazodone 50mg nightly #safety evaluation #concern for SI, resolved - on arrival to floor patient waking up from anesthesia, disoriented - at times stating I want to , please let me - on further prompting, patient denies thoughts of wanting to hurt herself or plans to hurt self, appears to not remember what she was saying - for further evaluation when more awake - Reassessment 09/20 PM onwards with patient AO x 3: no SI, daughter also reports no prior history of SI or concern for depression CV: #No acute concerns Off pressors MAP >60 Pulmonary: - SpO2 > 92% 09/22: SpO2 97% on 2L NC #pulmonary nodule - CT C/A/P (09/15): Indeterminate right lower lobe pulmonary nodule with broad base along the pleura.Recommend comparison with prior imaging if available to document stability. If no prior imaging is available, recommend follow-up CT in 6-12 months. GI: Diet: regular PUD PPx: not indicated Bowel regimen: miralax, senna Endo: #No acute concerns BG 120-140s Renal: Fluid balance goal- auto IVF: carrier Guerrier to gravity Electrolyte abnormality Replace PRN 09/22 AM: UOP 0.95 Heme: - Hgb > 7 09/22 AM: H/H 8.4/27.3 from 9.1/28.1 DVT PPX: SCDs, lovenox ID: - s/p vanc and ancef in OR, no further abx indicated - blood culture x1 for fever Tmax 101.7 overnight 09/22 AM: WBC 10.6 from 12.3 Cultures: 09/20: BCx NGTD MSK: #Left tib fib fracture - Orthopedic consult - s/p OR 09/15 IMN - NWB LLE - Maintain SLS - PT/OT - Pain control - Bone health referral at discharge #cervical myelopathy s/p PSF - as above #likely osteoporosis - intraoperative finding during PSF - bone health referral as above on discharge ICU standards of care: Restraints: None Physical therapy/Activity: as tolerated, NWB LLE Access: PIVs Other: Dispo: PT/OT evaluation for placement Code status: full code S. Jose Phillips MD, EMMANUEL, MS Department of Orthopaedic Surgery, PGY1 [facility] in [place] 09/23/23 7:14 AM Cosigned by Amy Juárez MD at 10/10/2023 4:08 PM CDT * Ayesha Liu MD - 09/23/2023 5:05 AM CDT Images from the original note were not included. [facility] Trauma C Service- Floor Daily Progress Note Admit: 09/16/2023 2:23 AM Date: September 23, 2023 Length of Stay: 7 Attending: Ibrahima Middleton MD POD:4 Days Post-Op Procedure(s): FUSION CERVICAL - POSTERIOR WITH INSTRUMENTATION C2-7; C3-6 Decompression; C4-5 Foraminotomies Subjective History: TRAUMA C 78 y.o. female denies PMH s/p GLF. #L distal tib/fib fx #C3-C4 spinal stenosis Procedures: 09/15: L tib fib IMN 09/19: PSF C2-C7 + C3-C6 laminectomies Interval History: She is POD 3 from posterior cervical fusion+ instrumentation from C2-7; C3-6 laminectomies, C4-5 bilateral foraminotomies Off levo since 11am yesterday - MAP goals liberalized Afebrile; NGTD in BCx Improving strength in her upper extremity; feeling cramps in BL LE Plan: OOB for PT OT Pain control Appreciate ortho spine recs regarding neuro check frequency Needs upright cspine XRs per ortho spine Pulm hygiene, IS Can transfer out of the ICU, likely to floor Objective Medications: Current Facility-Administered Medications: acetaminophen (TYLENOL) tablet 1,000 mg, 1,000 mg, oral, Q6H, Amy Lara NP, 1,000 mg at 09/22/232158 benzocaine-menthoL (CHLORASEPTIC) lozenge 1 lozenge, 1 lozenge, mouth/throat, Q2H PRN, Xiao Gomez MD, 1 lozenge at 09/22/232101 dextrose 5% and Lactated Ringer's infusion, 10 mL/hr, intravenous, Continuous, Shabnam Farmer NP, Stopped at 09/22/23 170 enoxaparin (LOVENOX) syringe 30 mg, 30 mg, subcutaneous, Q12H LILA, Klever Phillips MD, 30 mgat 09/22/232100 gabapentin (NEURONTIN) capsule 200 mg, 200 mg, oral, BID, Xiao Gomez MD, 200 mg at 09/22/232047 HYDROmorphone (DILAUDID) injection 0.2 mg, 0.2 mg, intravenous, Q4H PRN, Sterling Patrick MD, 0.2 mg at 09/23/23 0144 labetaloL (NORMODYNE,TRANDATE) injection 20 mg, 20 mg, intravenous, Q2H PRN, Gwendolyn Bee MD lidocaine (ASPERCREME) 4 % patch 2 patch, 2 patch, transdermal, Q24H, Hannah Chun NP, 2 patch at 09/22/23 1349 methocarbamoL (ROBAXIN) tablet 1,000 mg, 1,000 mg, oral, QID, Klever Phillips MD, 1,000 mg at 09/22/23 2047 naloxone (NARCAN) 0.4 mg/mL injection 0.04-0.4 mg, 0.04-0.4 mg, intravenous, Q10 Min PRN, Gwendolyn Bee MD ondansetron (ZOFRAN) injection 4 mg, 4 mg, intravenous, Q6H PRN, Gwendolyn Bee MD oxyCODONE (ROXICODONE) tablet 5 mg, 5 mg, oral, Q4H PRN, Klever Phillips MD, 5 mg at 09/23/23 0038 phenoL (CHLORASEPTIC) 1.4 % oral spray 1 spray, 1 spray, mouth/throat, Q2H PRN, Xiao Gomez MD phenylephrine in 0.9% sodium chloride (NAMAN-SYNEPHRINE) 25,000 mcg/250 mL (100 mcg/mL) infusion (premix) solution, 0-2.5 mcg/kg/min, intravenous, Titrated, Klevre Phillips MD, Stopped at 09/22/23 1500 polyethylene glycol (MIRALAX) packet 17 g, 17 g, oral, Daily, Hannah Chun NP, 17 g at 09/22/23 0830 potassium, sodium phosphates (PHOS-NAK) 280-160-250 mg packet 2 packet, 2 packet, oral, QID (AC & HS), Sterling Patrick MD, 2 packet at 09/22/23 2159 senna-docusate (PERICOLACE) 8.6-50 mg per tablet 1 tablet, 1 tablet, oral, BID, Marcos Salazar MD, 1 tablet at 09/22/23 2046 sodium chloride (OCEAN) 0.65 % nasal spray 2 spray, 2 spray, each nostril, Q2H PRN, Klever Phillips MD sodium chloride 0.9% flush 0.5-20 mL, 0.5-20 mL, intra-catheter, Q8H LILA, Marcos Salazar MD, 10 mL at 09/22/23 1351 sodium chloride 0.9% flush 0.5-20 mL, 0.5-20 mL, intra-catheter, PRN, Marcos Salazar MD traZODone (DESYREL) tablet 50 mg, 50 mg, oral, Nightly, Hannah Chun, LUIGI, 50 mg at 048 Past Medical: No past medical history on file. Surgical History: History reviewed. No pertinent surgical history. Is&Os: I/O last 2 completed shifts: In: 2116.2 [P.O.:1080; I.V.:986.2; IV Piggyback:50] Out: 1960 [Urine:1930; Drains:30] I/O this shift: In: 290 [P.O.:240; IV Piggyback:50] Out: 845 [Urine:845] Physical Exam: 24hr Min/Max: Temp Min: 37.1 ??C (98.8 ??F) Max: 37.9 ??C (100.2 ??F) Pulse Min: 80 Max: 110 BP Min: 88/37 Max: 139/63 Resp Min: 5 Max: 26 SpO2 Min: 91 % Max: 100 % Physical Exam Vitals reviewed. Constitutional: Appearance: Normal appearance. She is diaphoretic. Neck: Comments: Neck in c-collar Cardiovascular: Rate and Rhythm: Normal rate. Pulmonary: Effort: Pulmonary effort is normal. Abdominal: Palpations: Abdomen is soft. Musculoskeletal: General: Tenderness and signs of injury present. Normal range of motion. Cervical back: Normal range of motion. Comments: LLE in splint Skin: General: Skin is warm. Neurological: General: No focal deficit present. Mental Status: She is alert and oriented to person, place, and time. Labs/Imaging: Recent Labs Lab Units 09/22/23200309/21/23205009/20/232026 WBC K/cumm 10.6* 12.3* 10.7* HEMOGLOBIN g/dL 8.4* 9.1* 9.1* HEMATOCRIT % 27.3* 28.1* 28.2* PLATELETS K/cumm 352 348 270 Recent Labs Lab Units 09/22/23200309/22/23 0716 09/22/23 0323 09/21/23 2334 09/21/23205009/21/23 0026 09/20/232026 SODIUM mmol/L 138 -- -- -- 139 -- 137 POTASSIUM PLASMA mmol/L 4.5 -- -- -- 4.3 -- 4.2 CHLORIDE mmol/L 102 -- -- -- 105 -- 103 CO2 mmol/L 30 -- -- -- 29 -- 28 BUN SERUM mg/dL 9 -- -- -- 6 -- 7 CREATININE mg/dL 0.42* -- -- -- 0.37* -- 0.36* GLUCOSE mg/dL 135 -- -- -- 143 -- 125 POC GLUCOSE MONITOR mg/dL -- 105 104 < > -- < > -- CALCIUM mg/dL 8.0* -- -- -- 7.8* -- 7.7* < > = values in this interval not displayed. Recent Labs Lab Units 09/19/238 PROTIME (PT) sec 14.4* INR 1.26* MRI Cervical Spine WO Contrast Result Date: 09/19/2023 1. Severe high-grade spinal canal stenosis at C3-C4 level secondary to congenitally narrowed spinalcanal, multilevel disc osteophyte complex, and ligamentum flavum thickening. Cord edema is noted atthe C3-C4 level. 2. Other severe multilevel degenerative changes and multilevel severe spinal canal stenosis as detailed above. Findings regarding high-grade severe spinal canal stenosis and cord edema at C3-C4 were discussed with Dr. Hans Chance at 09/18/2023 8:[address] Cuate Mauricio. Dictated by: Cuate Mauricio MD The radiology attending physician has personally reviewed this study, and had reviewed and/or edited this written report and agrees with it. Electronically signed by: Inocencio Hilario M.D. I have independently reviewed and interpreted all relevant lab and radiographic data. Assessment/Plan Trauma Surgical Assessment and Plan Electrolyte imbalance Assessment & Plan - 09/17: Mg 1.7, Phos 2.9, K 3.1 - Magnesium and KPhos treated - 09/17: Mg 1.7, Phos 2.2, K 3.7 - Magnesium and KPhos treated - Monitor electrolytes Weakness of both arms Assessment & Plan - Pe patient, weakness started after fall. No weakness of arms prior to fall - No pain or resistance with passive movement. - CT c spine without injury, however spinal cord and neuroforaminal stenosis noted on CT - MRI: Severe high-grade spinal canal stenosis at C3-C4 level secondary to congenitally narrowed spinal canal, multilevel disc osteophyte complex, and ligamentum flavum thickening. Cord edema noted at the C3-C4 level - 09/17: Ortho Spine consulted - 09/18: Operative intervention recommended, patient discussing with family and spine team - PT/OT consult - Elevate arms for swelling - 09/19: OR w/ spine: posterior cervical fusion+ instrumentation from C2-7; C3-6 laminectomies, C4-5 bilateral foraminotomies - In SICU on naman for MAP augmentation 80-95 for 48h postop - Needs Iroquois J and upright cspine XRs - 09/22: MAP goals liberalized; off pressor support Pulmonary nodule Assessment & Plan - CT C/A/P (09/15): Indeterminate right lower lobe pulmonary nodule with broad base along the pleura.Recommend comparison with prior imaging if available to document stability. If no prior imaging is available, recommend follow-up CT in 6-12 months. Discharge planning issues Assessment & Plan 09/16: Pending PT/OT for discharge planning Encounter for medication review Assessment & Plan - No past medical history, takes no medications at home Acute pain due to trauma Assessment & Plan - Tylenol 1000 mg q6h - Robaxin 500 mg TID, increased to 750 QID on 09/18 - Oxycodone 5 mg q4h PRN Closed fracture of shaft of left tibia, unspecified fracture morphology, initial encounter Assessment & Plan #Left tib fib fracture - Orthopedic consult - s/p OR 09/15 IMN - NWB LLE - Maintain SLS - PT/OT - Pain control - Bone health referral at discharge FEN: These fluid and electrolyte abnormalities are being treated, evaluated or monitored: Hypokalemia--potassium replacement Hypomagnesemia--replace and monitor Hypophosphatemia--replace and monitor Lines/Drains/Tubes: PIV DVT Prophylaxis: Lovenox Diet: Adult Diet Regular Activity: as tolerated, NWB LLE GI Prophylaxis: none Code Status: Full Code Total time spent included the following activities caring for this patient: Patient chart review, Examination and evaluation, Counseling/educating patient/family/caregiver, Ordering medications/tests/procedures, Referring & communicating with other health career coach, and Independent inte rpretation of results 45 minutes All care plans discussed with rounding/operative attending: MD Ayesha Kong MD Cosigned by Desirae Akins MD at 09/24/2023 5:20 PM CDT Associated attestation - Desirae Akins MD - 09/24/2023 5:20 PM CDT I have seen and examined the patient on 09/23/2023. I agree with the findings and plan of care as discussed with the resident. I spent 10 minutes reviewing the chart, discussing the plan with the patient/family, discussing the plan with the team, and documenting in the medical record. This does not include any time spent on separately billable procedures. Ami Akins MD -[facility], [facility] Acute and Critical Care Surgery [facility] [employer] * Gama Arteaga - 09/22/2023 8:45 PM CDT Spiritual Care Note: Chaplain Gama Arteaga M.Div., [facility] [phone] 09/22/23 1745 Time Spent Start Time 1745 Stop Time 1755 Time Calculation (min) 10 min Patient Spiritual Assessment Spirituality Assessed Unable to assess Clinical Encounter Type Visited With Health care provider Response Type Routine visit Routine Visit Introduction Reason for visit Support Referral From (Initated) * Sterling Patrick MD - 09/22/2023 7:39 PM CDT Surgical ICU Daily Progress Team: Red AM 1 Subjective Patient is a 78 y.o. female admitted on 09/16/2023 2:23 AM. Patient presented 09/15 to ED after ground level fall, found to have L distal tib/fib fracture s/p IMN repair with ortho on 09/15. Found to have possibly worsening upper extremity weakness, MRI findings of spinal cord deformity, and ultimately went to OR with ortho spine for spinal decompression. In OR patient had stable neuromonitoring exceptfor waxing and waning C5. Interval History: 09/21 AM -Ortho spine: q3h neurochecks, MAP goals liberated, Iroquois J, OOBTC/PT as tolerated -MAP 70-100s on PE wean -D/c a-line pending PE wean -Dilaudid DIRECTOR OF ANNUAL GIVING to oxy q4h PRN -Start LVX 09/21 PM D/c art line TTOU Replete Mg and phos Objective Physical Exam: Physical Exam HENT: Head: Normocephalic and atraumatic. Right Ear: External ear normal. Left Ear: External ear normal. Nose: Nose normal. Mouth/Throat: Mouth: Mucous membranes are moist. Eyes: Conjunctiva/sclera: Conjunctivae normal. Cardiovascular: Rate and Rhythm: Normal rate and regular rhythm. Pulses: Normal pulses. Heart sounds: Normal heart sounds. Pulmonary: Effort: Pulmonary effort is normal. Breath sounds: Normal breath sounds. Abdominal: General: Abdomen is flat. Bowel sounds are normal. There is no distension. Palpations: Abdomen is soft. Tenderness: There is no abdominal tenderness. Musculoskeletal: Right lower leg: No edema. Left lower leg: No edema. Skin: General: Skin is warm and dry. Capillary Refill: Capillary refill takes less than 2 seconds. Neurological: Mental Status: She is alert and oriented to person, place, and time. Comments: SILT bilateral upper extremities. Reports 50% decreased sensation on L vs R at site of IVrelated swelling. Sensation equal at shoulders. 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/5 apparently limited by hand swelling Biceps 4/5 bilaterally Deltoids 4/5 bilaterally Vital signs for last 24 hours: Temp: [37.1 ??C (98.8 ??F)-38.4 ??C (101.1 ??F)] 37.9 ??C (100.2 ??F) Pulse: [80-125] 102 BP: (88-140)/(37-72) 114/48 Resp: [5-23] 11 SpO2: [91 %-100 %] 93 % Arterial Line BP: (83-152)/(47-90) 92/47 Hemodynamics: MAP (mmHg): [47-89] 62 Pulmonary Support: O2 Therapy: Supplemental oxygen O2 Del Method: Nasal cannula O2 Flow Rate (L/min): 1 L/min Intake/Output: Intake/Output Summary (Last 24 hours) at 09/22/2023 1939 Last data filed at 09/22/2023 1800 Gross per 24 hour Intake 2106.22 ml Output 1885 ml Net 221.22 ml Lab/Radiology/Diagnostic Review: Laboratory review: Lab results in the last 12 hours: No results found for this or any previous visit (from the past 12 hour(s)). Assessment/Plan Principal Problem: Cervical spondylosis with myelopathy Active Problems: Closed fracture of shaft of left tibia, unspecified fracture morphology, initial encounter Acute pain due to trauma Encounter for medication review Discharge planning issues Pulmonary nodule Weakness of both arms Electrolyte imbalance ICU SYSTEMS ASSESSMENT: Patient presented 09/15 to ED after ground level fall, found to have L distal tib/fib fracture and cervical myelopathy, now s/p IMN repair with ortho on 09/15 and PSF C2-7 Neuro: # Acute pain - Tylenol 1000 mg q6h lila - gabapentin 200mg TID - Robaxin 750 QID lila - oxy 5mg q4, dilaudid 0.2mg q4 prn #upper extremity weakness #cervical myelopathy # posterior cervical fusion from C2-C7 # C3, C4, C5 and C6 laminectomies # C4-5 bilateral foraminotomies - mixed reports in chart, appears to be acute on chronic upper extremity weakness noted during admission 09/18 - No pain or resistance with passive movement. 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 Cord edema noted at the C3-C4 level - ortho spine c/s: s/p PSF 09/19 -Ortho spine: q3h neurochecks, transfer to [facility] OU - PT/OT consult #at risk for delirium - delirium precautions/sleep hygiene - trazodone 50mg nightly #safety evaluation #concern for SI, resolved - on arrival to floor patient waking up from anesthesia, disoriented - at times stating I want to , please let me - on further prompting, patient denies thoughts of wanting to hurt herself or plans to hurt self, appears to not remember what she was saying - for further evaluation when more awake - Reassessment 09/20 PM onwards with patient AO x 3: no SI, daughter also reports no prior history of SI or concern for depression CV: Pulmonary: - SpO2 > 92% 09/21: SpO2 97% on RL NC #pulmonary nodule - CT C/A/P (09/15): Indeterminate right lower lobe pulmonary nodule with broad base along the pleura.Recommend comparison with prior imaging if available to document stability. If no prior imaging is available, recommend follow-up CT in 6-12 months. GI: Diet: regular PUD PPx: not indicated Bowel regimen: miralax, senna Endo: Renal: Fluid balance goal- auto IVF: carrier Guerrier to gravity Electrolyte abnormality Replace PRN Heme: - Hgb > 7 DVT PPX: SCDs, lovenox ID: - s/p vanc and ancef in OR, no further abx indicated - blood culture x1 for fever Tmax 101.7 overnight Cultures: 09/20: BCx NGTD MSK: #Left tib fib fracture - Orthopedic consult - s/p OR 09/15 IMN - NWB LLE - Maintain SLS - PT/OT - Pain control - Bone health referral at discharge #cervical myelopathy s/p PSF - as above #likely osteoporosis - intraoperative finding during PSF - bone health referral as above on discharge ICU standards of care: Restraints: None Physical therapy/Activity: as tolerated, NWB LLE Access: PIVs Other: Dispo: PT/OT evaluation for placement Code status: full code Sterling Patrick MD, PhD Anesthesiology CA-1 09/22/23 7:39 PM Cosigned by Mally Roberts MD at 09/23/2023 6:13 AM CDT Associated attestation - Mally Roberts MD - 09/23/2023 6:13 AM CDT I have seen and examined the patient on 09/22/2023. I agree with the findings and plan of care as documented in the resident's/fellow's note.. * Nette Middleton MD PhD - 09/22/2023 7:58 AM CDT Orthopaedic Spine Service Daily Progress Note Admit Date: 09/16/2023 Hospital Day: [facility] Dx: C/f cervical myelopathy Relevant PMHx: None per patient Procedure(s): 09/20/2023 - C2-7 PSF w/ C3-6 decompression and bilateral C4-5 foraminotomies Interval History: 09/22/23: NAEON. Febrile to 38.4, most recent 37.7, requiring naman up to 1.2 for MAP goals, weaned to 0.1 on rounds. H/H: 9.1/28.1, WBC: 12.3, Cr: 0.37. BCx 09/20 pending. D1 output not charted last night, 90 during AM shift. Exam: UE 2/5 deltoid, LUE 3/5 deltoid, BUE 4/5 biceps/triceps, 4/5 WF/WE/IO. SILT throughout. RLE 5/5, LLE limited by splint. SILT throughout BLE. Plan: MAP around 80-85 for 48 hours post-op. Q3h neurochecks. Maintain drain. Objective Vitals: 24hr Min/Max: Temp Min: 37.1 ??C (98.8 ??F) Max: 38.4 ??C (101.1 ??F) Pulse Min: 80 Max: 125 BP Min: 90/51 Max: 140/54 Resp Min: 9 Max: 23 SpO2 Min: 93 % Max: 100 % I/O last 2 completed shifts: In: 1224.6 [I.V.:1174.6; IV Piggyback:50] Out: 3205 [Urine:3115; Drains:90] I/O this shift: In: 10 [I.V.:10] Out: 80 [Urine:80] PPhysical Exam: Gen: no acute distress Neuro: A&Ox3 Dressing: clean/dry/intact Wound Vac(s): Not applicable Hemo Vac(s): Holding suction nicely, no apparent leaks Motor: Muscle Strength Right Left Shoulder abduction (C5) 2/5 3/5 Elbow flexion (C5/6) 4/5 4/5 Elbow extension (C7) 4/5 4/5 Wrist extension (C6) 4/5 4/5 Wrist flexion (C7) 4/5 4/5 Wedding Consultant (C8) 4/5 4/5 Interosseous of hand (T1) 4/5 4/5 Iliopsoas (L2/3) 5/5 Limited by LLE splint Quadriceps (L3/4) 5/5 Limited by LLE splint Tibialis anterior (L4/5) 5/5 Limited by LLE splint Extensor hallicus longus (L5) 5/5 5/5 Gastrocsoleus complex (S1) 5/5 Limited by LLE splint Sensation Left upper extremity: SILT C5 to T1 dermatomes. Right upper extremity: SILT C5 to T1 dermatomes. Left lower extremity: SILT L2 to S1 dermatomes. Right lower extremity: SILT L2 to S1 dermatomes. Vascular: Bilateral Upper Extremity: 2+ radial pulse, fingers WWP Bilateral Lower Extremity: 2+ DP pulse, toes WWP Lab/Diagnostic Review: Recent Labs Lab Units 09/22/23 0716 09/21/23 2334 09/21/231 09/20/23 0952 09/19/23 2358 09/16/23 2259 09/16/23 0302 SODIUM mmol/L -- -- 139 < > 141 < > 137 POTASSIUM PLASMA mmol/L -- -- 4.3 < > 3.6 < > 3.7 CHLORIDE mmol/L -- -- 105 < > 103 < > 105 CO2 mmol/L -- -- 29 < > 29 < > 23 ANIONGAP mmol/L -- -- 5 < > 9 < > 9 GLUCOSE mg/dL -- -- 143 < > 125 < > 101 POC GLUCOSE MONITOR mg/dL 105 < > -- < > -- -- -- BUN SERUM mg/dL -- -- 6 < > 8 < > 20 CREATININE mg/dL -- -- 0.37* < > 0.44* < > 0.58* CALCIUM mg/dL -- -- 7.8* < > 8.4* < > 8.4* ALBUMIN g/dL -- -- -- -- -- -- 3.1* ALK PHOS Units/L -- -- -- -- -- -- 78 ALT Units/L -- -- -- -- -- -- 33 AST Units/L -- -- -- -- -- -- 84* BILIRUBIN TOTAL mg/dL -- -- -- -- -- -- 0.8 WBC K/cumm -- -- 12.3* < > 9.5 < > 12.7* HEMOGLOBIN, POC -- -- -- < > -- -- -- HEMOGLOBIN g/dL -- -- 9.1* < > 9.8* < > 11.5* HEMATOCRIT % -- -- 28.1* < > 30.8* < > 35.2* HEMATOCRIT POC -- -- -- < > -- -- -- PLATELETS K/cumm -- -- 348 < > 270 < > 209 NEUTROS PCT % -- -- -- -- -- -- 78.6 LYMPHS PCT % -- -- -- -- -- -- 7.9 MONOS PCT % -- -- -- -- -- -- 12.6 EOS PCT % -- -- -- -- -- -- 0.1 APTT sec -- -- -- -- 30 -- 27* INR -- -- -- -- 1.26* -- 1.23* < > = values in this interval not displayed. Micro: Lab Results Component Value Date MICROBIOLOGY Preliminary Report: No growth to date. 09/21/2023 MICROBIOLOGY Preliminary Report: No growth to date. 09/21/2023 Assessment/Plan: 78 y.o. female with above injury/deformity. Patient is now status post C2-7 PSF w C3-6 decompression and bilateral C4-5 foraminotomies. Precautions: n/a Immobilization: Iroquois J Activity: Up ad guy DVT ppx: Holding for OR today Therapy: PT/OT for OOB/mobilization as tolerated Drain: Continue until dry Antibiotics: Periop ancef Cultures: n/a Guerrier: Per primary Wound Care: Maintain surgical dressing, will be managed by Ortho team Diet: per primary Imaging: upright c-spine XR Additional Needs: none Ortho Spine will continue to follow this patient's hospital course. Dispo: Pending progress, postoperative recovery, and progress with therapy Follow-Up: We have not yet scheduled this patient for an appointment, but we will contact the patient with the details including the timing and location of their appointment once it is scheduled Nette Middleton MD, PhD Department of Orthopaedic Surgery PGY-1 [facility] in [facility] Please call with questions during daytime. See below for overnight issues. If you know the resident's name on the appropriate orthopaedic surgery team, please use [email or web address] to page resident directly. If questions arise and the appropriate resident can't be reached or you are calling overnight, please contact [phone] (Thu- 7:30 PM - 6:30 AM - Floor Resident) or [phone] (24 hours/day - Consult Resident) Cosigned by Hans Rodriguez MD at 09/22/2023 9:06 AM CDT Associated attestation - Hans Rodriguez MD - 09/22/2023 9:06 AM CDT I personally examined Ms. Domínguez this morning. I agree with the assessment and plan by Dr. Middleton. The patient feels like her strength is improving and she now has about 3+/5 strength in her left deltoid. She states her right deltoid is similar in strength but she is having pain in her right should and deferred the exam on that side. * Klever Phillips MD - 09/22/2023 7:12 AM CDT Surgical ICU Daily Progress Team: Red AM 1 Subjective Patient is a 78 y.o. female admitted on 09/16/2023 2:23 AM. Patient presented 09/15 to ED after ground level fall, found to have L distal tib/fib fracture s/p IMN repair with ortho on 09/15. Found to have possibly worsening upper extremity weakness, MRI findings of spinal cord deformity, and ultimately went to OR with ortho spine for spinal decompression. In OR patient had stable neuromonitoring exceptfor waxing and waning C5. Interval History: 09/21 AM -Ortho spine: q3h neurochecks, MAP goals liberated, Iroquois J, OOBTC/PT as tolerated -MAP 70-100s on PE wean -D/c a-line pending PE wean -Dilaudid DIRECTOR OF ANNUAL GIVING to oxy q4h PRN -Start LVX 610 PM Replete Mg Objective Physical Exam: Physical Exam HENT: Head: Normocephalic and atraumatic. Right Ear: External ear normal. Left Ear: External ear normal. Nose: Nose normal. Mouth/Throat: Mouth: Mucous membranes are moist. Eyes: Conjunctiva/sclera: Conjunctivae normal. Cardiovascular: Rate and Rhythm: Normal rate and regular rhythm. Pulses: Normal pulses. Heart sounds: Normal heart sounds. Pulmonary: Effort: Pulmonary effort is normal. Breath sounds: Normal breath sounds. Abdominal: General: Abdomen is flat. Bowel sounds are normal. There is no distension. Palpations: Abdomen is soft. Tenderness: There is no abdominal tenderness. Musculoskeletal: Right lower leg: No edema. Left lower leg: No edema. Skin: General: Skin is warm and dry. Capillary Refill: Capillary refill takes less than 2 seconds. Neurological: Mental Status: She is alert and oriented to person, place, and time. Comments: SILT bilateral upper extremities. Reports 50% decreased sensation on L vs R at site of IVrelated swelling. Sensation equal at shoulders. 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/5 apparently limited by hand swelling Biceps 4/5 bilaterally Deltoids 4/5 bilaterally Vital signs for last 24 hours: Temp: [37.1 ??C (98.8 ??F)-38.4 ??C (101.1 ??F)] 37.2 ??C (99 ??F) Pulse: [80-125] 85 BP: (90-140)/(44-72) 103/63 Resp: [9-18] 12 SpO2: [93 %-100 %] 97 % Arterial Line BP: (83-171)/(50-90) 101/77 Hemodynamics: MAP (mmHg): [60-89] 72 Pulmonary Support: O2 Therapy: Supplemental oxygen O2 Del Method: Nasal cannula O2 Flow Rate (L/min): 2 L/min Intake/Output: Intake/Output Summary (Last 24 hours) at 09/22/2023 0712 Last data filed at 09/22/2023 0600 Gross per 24 hour Intake 1173.23 ml Output 3145 ml Net -1971.77 ml Lab/Radiology/Diagnostic Review: Laboratory review: Lab results in the last 12 hours: Recent Results (from the past 12 hour(s)) POCT glucose Collection Time: 09/21/23 7:59 PM Result Value Ref Range Glucose, POC 142 70 - 199 mg/dL Basic metabolic panel Collection Time: 09/21/23 8:51 PM Result Value Ref Range Sodium 139 135 - 145 mmol/L Potassium, pl 4.3 3.3 - 4.9 mmol/L Chloride 105 97 - 110 mmol/L CO2 29 22 - 32 mmol/L Anion gap 5 2 - 15 mmol/L BUN 6 6 - 25 mg/dL Creatinine 0.37 (L) 0.60 - 1.10 mg/dL Glucose 143 70 - 199 mg/dL Calcium 7.8 (L) 8.5 - 10.3 mg/dL CBC without differential Collection Time: 09/21/23 8:51 PM Result Value Ref Range WBC 12.3 (H) 3.8 - 9.9 K/cumm Hgb 9.1 (L) 11.9 - 15.5 g/dL Hct 28.1 (L) 35.6 - 45.5 % Plt 348 150 - 400 K/cumm MPV 10.4 9.1 - 12.3 fL RBC 3.04 (L) 3.90 - 5.20 M/cumm MCV 92.4 81.3 - 96.4 fL MCH 29.9 27.1 - 33.3 pg MCHC 32.4 32.3 - 35.7 g/dL RDW CV 13.6 11.1 - 14.9 % RDW SD 45.5 35.7 - 48.1 fL NRBC abs 0.00 0.00 - 0.01 K/cumm Magnesium Collection Time: 09/21/23 8:51 PM Result Value Ref Range Magnesium 1.8 1.4 - 2.5 mg/dL Phosphorus Collection Time: 09/21/23 8:51 PM Result Value Ref Range Phosphorus, pl 2.5 2.3 - 4.5 mg/dL eGFR Collection Time: 09/21/23 8:51 PM Result Value Ref Range eGFR >90 >=60 mL/min/1.73 m2 POCT glucose Collection Time: 09/21/23 11:34 PM Result Value Ref Range Glucose, POC 115 70 - 199 mg/dL POCT glucose Collection Time: 09/22/23 3:23 AM Result Value Ref Range Glucose, POC 104 70 - 199 mg/dL Assessment/Plan Principal Problem: Cervical spondylosis with myelopathy Active Problems: Closed fracture of shaft of left tibia, unspecified fracture morphology, initial encounter Acute pain due to trauma Encounter for medication review Discharge planning issues Pulmonary nodule Weakness of both arms Electrolyte imbalance ICU SYSTEMS ASSESSMENT: Patient presented 09/15 to ED after ground level fall, found to have L distal tib/fib fracture and cervical myelopathy, now s/p IMN repair with ortho on 09/15 and PSF C2-7 Neuro: # Acute pain - Tylenol 1000 mg q6h lila - gabapentin 200mg TID - Robaxin 750 QID lila - dilaudid DIRECTOR OF ANNUAL GIVING 0.2/10m/1.2mg 09/21: Switch dilaudid DIRECTOR OF ANNUAL GIVING to oxy 5mg q4h PRN #upper extremity weakness #cervical myelopathy # posterior cervical fusion from C2-C7 # C3, C4, C5 and C6 laminectomies # C4-5 bilateral foraminotomies - mixed reports in chart, appears to be acute on chronic upper extremity weakness noted during admission 09/18 - No pain or resistance with passive movement. 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 Cord edema noted at the C3-C4 level - ortho spine c/s: s/p PSF 09/19 -Ortho spine: q3h neurochecks, continue MAP > 80 through 48h postop, Iroquois J collar to be fitted, OOBTC/PT as tolerated - PT/OT consult #at risk for delirium - delirium precautions/sleep hygiene - trazodone 50mg nightly #safety evaluation #concern for SI, resolved - on arrival to floor patient waking up from anesthesia, disoriented - at times stating I want to , please let me - on further prompting, patient denies thoughts of wanting to hurt herself or plans to hurt self, appears to not remember what she was saying - for further evaluation when more awake - Reassessment 09/20 PM onwards with patient AO x 3: no SI, daughter also reports no prior history of SI or concern for depression CV: MAP > 80 through 48h postop then MAP >65 - Phenylephrine gtt to maintain MAP > 80 09/21 PE 1, MAP 70-100s, plan to liberate MAP goals per ortho spine recs D/c A-line wean PE weaned Pulmonary: - SpO2 > 92% 09/21: SpO2 97% on RL NC #pulmonary nodule - CT C/A/P (09/15): Indeterminate right lower lobe pulmonary nodule with broad base along the pleura.Recommend comparison with prior imaging if available to document stability. If no prior imaging is available, recommend follow-up CT in 6-12 months. GI: Diet: regular PUD PPx: not indicated Bowel regimen: miralax, senna Endo: - ICU LD SSI Renal: Fluid balance goal - permissive IVF: carrier Guerrier to gravity Electrolyte abnormality Replace PRN Heme: - Hgb > 7 DVT PPX: SCDs, hold chemoppx until POD2 per ortho spine ID: - s/p vanc and ancef in OR, no further abx indicated - blood culture x1 for fever Tmax 101.7 overnight Cultures: 09/20: BCx NGTD MSK: #Left tib fib fracture - Orthopedic consult - s/p OR 09/15 IMN - NWB LLE - Maintain SLS - PT/OT - Pain control - Bone health referral at discharge #cervical myelopathy s/p PSF - as above #likely osteoporosis - intraoperative finding during PSF - bone health referral as above on discharge ICU standards of care: Restraints: None Physical therapy/Activity: as tolerated, NWB LLE Access: PIVs, L radial art line Other: Dispo: PT/OT evaluation for placement Code status: full code Ladonna Jose Phillips MD, EMMANUEL, MS Department of Orthopaedic Surgery, PGY1 [facility] in [place] 09/22/23 7:12 AM Cosigned by Amy Juárez MD at 10/10/2023 4:08 PM CDT * Isidro Gomes MD - 09/22/2023 6:02 AM CDT Images from the original note were not included. [facility] Trauma C Service- Floor Daily Progress Note Admit: 09/16/2023 2:23 AM Date: September 22, 2023 Length of Stay: 6 Attending: Ibrahima Middleton MD POD:3 Days Post-Op Procedure(s): FUSION CERVICAL - POSTERIOR WITH INSTRUMENTATION C2-7; C3-6 Decompression; C4-5 Foraminotomies Subjective History: TRAUMA C 78 y.o. female denies PMH s/p GLF. #L distal tib/fib fx #C3-C4 spinal stenosis Procedures: 09/15: L tib fib IMN 09/19: PSF C2-C7 + C3-C6 laminectomies Interval History: She is POD 2 from posterior cervical fusion+ instrumentation from C2-7; C3-6 laminectomies, C4-5 bilateral foraminotomies On 1.0 naman for MAP augmentation Remains febrile, Tmax 100.6; CXR unremarkable; BCx pending, UA not sent Plan: OOB for PT OT Pain control Appreciate ortho spine recs regarding neuro check frequency Remove MAP augmentation parameters today and wean naman Needs Iroquois J and upright cspine XRs per ortho spine Pulm hygiene, IS Objective Medications: Current Facility-Administered Medications: acetaminophen (TYLENOL) tablet 1,000 mg, 1,000 mg, oral, Q6H, Amy Lara, [employer], 1,000 mg at 09/22/23 0417 benzocaine-menthoL (CHLORASEPTIC) lozenge 1 lozenge, 1 lozenge, mouth/throat, Q2H PRN, Xiao Gomez MD dextrose gel in packet 15 g, 15 g, oral, Q15 Min PRN OR dextrose (D10W) 10% bolus 250 mL, 250 mL, intravenous, Q15 Min PRN, Gwendolyn Bee MD dextrose 5% and Lactated Ringer's infusion, 10 mL/hr, intravenous, Continuous, Shabnam Farmer NP, Last Rate: 10 mL/hr at 09/22/23 0500, 10 mL/hr at 09/22/23 0500 [Held by Provider] enoxaparin (LOVENOX) syringe 30 mg, 30 mg, subcutaneous, Q12H [facility], Hannah Chun NP, 30 mg at 09/18/232044 gabapentin (NEURONTIN) capsule 200 mg, 200 mg, oral, BID, Xiao Gomez MD, 200 mg at 09/21/232046 glucagon injection 1 mg, 1 mg, intramuscular, Q30 Min PRN, Gwendolyn Bee MD HYDROmorphone in 0.9% sodium chloride (DILAUDID) 20 mg/100 mL (0.2 mg/mL) (premix), , intravenous, Continuous, Gwendolyn Bee MD, Rate Verify at 09/20/23 1655 insulin lispro (HumaLOG, ADMELOG) 100 unit/mL injection 1-3 Units, 1-3 Units, subcutaneous, Q4H [facility], Gwendolyn Bee MD labetaloL (NORMODYNE,TRANDATE) injection 20 mg, 20 mg, intravenous, Q2H PRN, Gwendolyn Bee MD Lactated Ringer's (LR) bolus 500 mL, 500 mL, intravenous, Once, Gwendolyn Bee MD lidocaine (ASPERCREME) 4 % patch 2 patch, 2 patch, transdermal, Q24H, Hannah Chun NP, 2 patch at 09/19/23 1341 methocarbamoL (ROBAXIN) tablet 750 mg, 750 mg, oral, QID, Hannah Chun NP, 750 mg at 09/21/23 204 naloxone (NARCAN) 0.4 mg/mL injection 0.04-0.4 mg, 0.04-0.4 mg, intravenous, Q10 Min PRN, Gwendolyn Bee MD ondansetron (ZOFRAN) injection 4 mg, 4 mg, intravenous, Q6H PRN, Gwendolyn Bee MD phenoL (CHLORASEPTIC) 1.4 % oral spray 1 spray, 1 spray, mouth/throat, Q2H PRN, Xiao Gomez MD phenylephrine in 0.9% sodium chloride (NAMAN-SYNEPHRINE) 25,000 mcg/250 mL (100 mcg/mL) infusion (premix) solution, 0-2.5 mcg/kg/min, intravenous, Titrated, Xiao Gomez MD, Last Rate: 43.6 mL/hr at 09/22/23 0500, 1 mcg/kg/min at 09/22/23 0500 polyethylene glycol (MIRALAX) packet 17 g, 17 g, oral, Daily, Hannah Chun NP, 17 g at 09/21/23 0816 senna-docusate (PERICOLACE) 8.6-50 mg per tablet 1 tablet, 1 tablet, oral, BID, Marcos Salazar MD, 1 tablet at 09/21/23 204 sodium chloride 0.9% flush 0.5-20 mL, 0.5-20 mL, intra-catheter, Q8H LILA, Marcos Salazar MD, 10 mL at 09/22/23 0519 sodium chloride 0.9% flush 0.5-20 mL, 0.5-20 mL, intra-catheter, PRN, Marcos Salazar MD traZODone (DESYREL) tablet 50 mg, 50 mg, oral, Nightly, Hannah Chun NP, 50 mg at 046 Past Medical: No past medical history on file. Surgical History: History reviewed. No pertinent surgical history. Is&Os: I/O last 2 completed shifts: In: 1408 [I.V.:908; IV Piggyback:500] Out: 2625 [Urine:2495; Drains:130] I/O this shift: In: 495.4 [I.V.:445.4; IV Piggyback:50] Out: 1295 [Urine:1295] Physical Exam: 24hr Min/Max: Temp Min: 37.5 ??C (99.5 ??F) Max: 38.5 ??C (101.3 ??F) Pulse Min: 80 Max: 125 BP Min: 90/51 Max: 140/54 Resp Min: 9 Max: 18 SpO2 Min: 93 % Max: 100 % Physical Exam Vitals reviewed. Constitutional: Appearance: Normal appearance. She is diaphoretic. Neck: Comments: Neck in c-collar Cardiovascular: Rate and Rhythm: Normal rate. Pulmonary: Effort: Pulmonary effort is normal. Abdominal: Palpations: Abdomen is soft. Musculoskeletal: General: Tenderness and signs of injury present. Normal range of motion. Cervical back: Normal range of motion. Comments: LLE in splint Skin: General: Skin is warm. Neurological: General: No focal deficit present. Mental Status: She is alert and oriented to person, place, and time. Labs/Imaging: Recent Labs Lab Units 09/21/23205009/20/23202609/20/23 1534 WBC K/cumm 12.3* 10.7* 9.9 HEMOGLOBIN g/dL 9.1* 9.1* 9.8* HEMATOCRIT % 28.1* 28.2* 30.7* PLATELETS K/cumm 348 270 277 Recent Labs Lab Units 09/22/23 0323 09/21/23 2334 09/21/23205009/21/23 0026 09/20/23202609/20/23 1600 09/20/23 1534 SODIUM mmol/L -- -- 139 -- 137 -- 140 POTASSIUM PLASMA mmol/L -- -- 4.3 -- 4.2 -- 3.7 CHLORIDE mmol/L -- -- 105 -- 103 -- 102 CO2 mmol/L -- -- 29 -- 28 -- 27 BUN SERUM mg/dL -- -- 6 -- 7 -- 7 CREATININE mg/dL -- -- 0.37* -- 0.36* -- 0.35* GLUCOSE mg/dL -- -- 143 -- 125 -- 136 POC GLUCOSE MONITOR mg/dL 104 115 -- < > -- < > -- CALCIUM mg/dL -- -- 7.8* -- 7.7* -- 7.9* < > = values in this interval not displayed. Recent Labs Lab Units 09/19/23 2358 PROTIME (PT) sec 14.4* INR 1.26* MRI Cervical Spine WO Contrast Result Date: 09/19/2023 1. Severe high-grade spinal canal stenosis at C3-C4 level secondary to congenitally narrowed spinalcanal, multilevel disc osteophyte complex, and ligamentum flavum thickening. Cord edema is noted atthe C3-C4 level. 2. Other severe multilevel degenerative changes and multilevel severe spinal canal stenosis as detailed above. Findings regarding high-grade severe spinal canal stenosis and cord edema at C3-C4 were discussed with Dr. Hans Chance at 09/18/2023 8:[address] Cuate Mauricio. Dictated by: Cuate Mauricio MD The radiology attending physician has personally reviewed this study, and had reviewed and/or edited this written report and agrees with it. Electronically signed by: Inocencio Hilario M.D. I have independently reviewed and interpreted all relevant lab and radiographic data. Assessment/Plan Trauma Surgical Assessment and Plan Electrolyte imbalance Assessment & Plan - 09/17: Mg 1.7, Phos 2.9, K 3.1 - Magnesium and KPhos treated - 09/17: Mg 1.7, Phos 2.2, K 3.7 - Magnesium and KPhos treated - Monitor electrolytes Weakness of both arms Assessment & Plan - Pe patient, weakness started after fall. No weakness of arms prior to fall - No pain or resistance with passive movement. - CT c spine without injury, however spinal cord and neuroforaminal stenosis noted on CT - MRI: Severe high-grade spinal canal stenosis at C3-C4 level secondary to congenitally narrowed spinal canal, multilevel disc osteophyte complex, and ligamentum flavum thickening. Cord edema noted at the C3-C4 level - 6/7: Ortho Spine consulted - 09/18: Operative intervention recommended, patient discussing with family and spine team - PT/OT consult - Elevate arms for swelling - 09/19: OR w/ spine: posterior cervical fusion+ instrumentation from C2-7; C3-6 laminectomies, C4-5 bilateral foraminotomies - In SICU on naman for MAP augmentation 80-95 for 48h postop - Needs Iroquois J and upright cspine XRs Pulmonary nodule Assessment & Plan - CT C/A/P (09/15): Indeterminate right lower lobe pulmonary nodule with broad base along the pleura.Recommend comparison with prior imaging if available to document stability. If no prior imaging is available, recommend follow-up CT in 6-12 months. Discharge planning issues Assessment & Plan 09/16: Pending PT/OT for discharge planning Encounter for medication review Assessment & Plan - No past medical history, takes no medications at home Acute pain due to trauma Assessment & Plan - Tylenol 1000 mg q6h - Robaxin 500 mg TID, increased to 750 QID on 09/18 - Oxycodone 5 mg q4h PRN Closed fracture of shaft of left tibia, unspecified fracture morphology, initial encounter Assessment & Plan #Left tib fib fracture - Orthopedic consult - s/p OR 09/15 IMN - NWB LLE - Maintain SLS - PT/OT - Pain control - Bone health referral at discharge FEN: These fluid and electrolyte abnormalities are being treated, evaluated or monitored: Hypokalemia--potassium replacement Hypomagnesemia--replace and monitor Hypophosphatemia--replace and monitor Lines/Drains/Tubes: PIV DVT Prophylaxis: Lovenox Diet: Adult Diet Regular Activity: as tolerated, NWB LLE GI Prophylaxis: none Code Status: Full Code Total time spent included the following activities caring for this patient: Patient chart review, Examination and evaluation, Counseling/educating patient/family/caregiver, Ordering medications/tests/procedures, Referring & communicating with other health career coach, and Independent inte rpretation of results 45 minutes All care plans discussed with rounding/operative attending: MD Isidro Kong MD Cosigned by Desirae Akins MD at 09/22/2023 2:37 PM CDT Associated attestation - Desirae Akins MD - 09/22/2023 2:37 PM CDT I have seen and examined the patient on 09/22/23. I agree with the findings and plan of care as discussed with the resident. I spent 15 minutes reviewing the chart, discussing the plan with the patient/family, discussing the plan with the team, and documenting in the medical record. This does not include any time spent on separately billable procedures. Appreciate excellent ICU care. Infectious work up pending. Remains on low-dose phenylephrine for MAP augmentation, which should end today. Once BP goals normalized and BP stable off of vasopressors, can transfer out of ICU from Trauma standpoint. Ami Akins MD [facility], [facility] Acute and Critical Care Surgery [facility] * Sterling Patrick MD - 09/21/2023 8:02 PM CDT Surgical ICU Daily Progress Team: Red AM 1 Subjective Patient is a 78 y.o. female admitted on 09/16/2023 2:23 AM. Patient presented 09/15 to ED after ground level fall, found to have L distal tib/fib fracture s/p IMN repair with ortho on 09/15. Found to have possibly worsening upper extremity weakness, MRI findings of spinal cord deformity, and ultimately went to OR with ortho spine for spinal decompression. In OR patient had stable neuromonitoring exceptfor waxing and waning C5. Interval History: 09/20 AM -AOx4 mental status improved, pain control adequate -500cc bolus -Ortho spine: q3h neurochecks, continue MAP > 80 through 48h postop, Iroquois J collar to be fitted, OOBTC/PT as tolerated 09/20 PM Replete Mg Objective Physical Exam: Physical Exam HENT: Head: Normocephalic and atraumatic. Right Ear: External ear normal. Left Ear: External ear normal. Nose: Nose normal. Mouth/Throat: Mouth: Mucous membranes are moist. Eyes: Conjunctiva/sclera: Conjunctivae normal. Cardiovascular: Rate and Rhythm: Normal rate and regular rhythm. Pulses: Normal pulses. Heart sounds: Normal heart sounds. Pulmonary: Effort: Pulmonary effort is normal. Breath sounds: Normal breath sounds. Abdominal: General: Abdomen is flat. Bowel sounds are normal. There is no distension. Palpations: Abdomen is soft. Tenderness: There is no abdominal tenderness. Musculoskeletal: Right lower leg: No edema. Left lower leg: No edema. Skin: General: Skin is warm and dry. Capillary Refill: Capillary refill takes less than 2 seconds. Neurological: Mental Status: She is alert and oriented to person, place, and time. Comments: SILT bilateral upper extremities. Reports 50% decreased sensation on L vs R at site of IVrelated swelling. Sensation equal at shoulders. 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/5 apparently limited by hand swelling Biceps 4/5 bilaterally Deltoids 4/5 bilaterally Vital signs for last 24 hours: Temp: [37.4 ??C (99.3 ??F)-38.7 ??C (101.7 ??F)] 38.3 ??C (100.9 ??F) Pulse: [83-129] 109 Resp: [8-19] 16 SpO2: [93 %-100 %] 95 % Arterial Line BP: (99-171)/(50-84) 110/67 Hemodynamics: Pulmonary Support: O2 Therapy: Supplemental oxygen O2 Del Method: Nasal cannula O2 Flow Rate (L/min): 2 L/min Intake/Output: Intake/Output Summary (Last 24 hours) at 09/21/20232001 Last data filed at 09/21/2023 1800 Gross per 24 hour Intake 1408.04 ml Output 2480 ml Net -1071.96 ml Lab/Radiology/Diagnostic Review: Laboratory review: Lab results in the last 12 hours: Recent Results (from the past 12 hour(s)) POCT glucose Collection Time: 09/21/23 3:43 PM Result Value Ref Range Glucose, POC 129 70 - 199 mg/dL POCT glucose Collection Time: 09/21/23 7:59 PM Result Value Ref Range Glucose, POC 142 70 - 199 mg/dL Assessment/Plan Principal Problem: Cervical spondylosis with myelopathy Active Problems: Closed fracture of shaft of left tibia, unspecified fracture morphology, initial encounter Acute pain due to trauma Encounter for medication review Discharge planning issues Pulmonary nodule Weakness of both arms Electrolyte imbalance ICU SYSTEMS ASSESSMENT: Neuro: # Acute pain - Tylenol 1000 mg q6h lila - gabapentin 200mg TID - Robaxin 750 QID lila - dilaudid DIRECTOR OF ANNUAL GIVING 0.2/10m/1.2mg #upper extremity weakness #cervical myelopathy # posterior cervical fusion from C2-C7 # C3, C4, C5 and C6 laminectomies # C4-5 bilateral foraminotomies - mixed reports in chart, appears to be acute on chronic upper extremity weakness noted during admission 09/18 - No pain or resistance with passive movement. 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 Cord edema noted at the C3-C4 level - ortho spine c/s: s/p PSF 09/19 -Ortho spine: q3h neurochecks, continue MAP > 80 through 48h postop, Iroquois J collar to be fitted, OOBTC/PT as tolerated - PT/OT consult #at risk for delirium - delirium precautions/sleep hygiene - trazodone 50mg nightly #safety evaluation #concern for SI, resolved - on arrival to floor patient waking up from anesthesia, disoriented - at times stating I want to , please let me - on further prompting, patient denies thoughts of wanting to hurt herself or plans to hurt self, appears to not remember what she was saying - for further evaluation when more awake - Reassessment 6/10 PM onwards with patient AO x 3: no SI, daughter also reports no prior history of SI or concern for depression CV: MAP > 80 through 48h postop - Phenylephrine gtt to maintain MAP > 80 Pulmonary: - SpO2 > 92% #pulmonary nodule - CT C/A/P (09/15): Indeterminate right lower lobe pulmonary nodule with broad base along the pleura.Recommend comparison with prior imaging if available to document stability. If no prior imaging is available, recommend follow-up CT in 6-12 months. GI: Diet: regular PUD PPx: not indicated Bowel regimen: miralax, senna Endo: - ICU LD SSI Renal: Fluid balance goal - permissive IVF: carrier Guerrier to gravity Electrolyte abnormality Replace PRN Heme: - Hgb > 7 DVT PPX: SCDs, hold chemoppx until POD2 per ortho spine ID: - s/p vanc and ancef in OR, no further abx indicated - blood culture x1 for fever Tmax 101.7 overnight Cultures: 09/20: blood cultures pending MSK: #Left tib fib fracture - Orthopedic consult - s/p OR 09/15 IMN - NWB LLE - Maintain SLS - PT/OT - Pain control - Bone health referral at discharge #cervical myelopathy s/p PSF - as above #likely osteoporosis - intraoperative finding during PSF - bone health referral as above on discharge ICU standards of care: Restraints: None Physical therapy/Activity: as tolerated, NWB LLE Access: PIVs, L radial art line Other: Dispo: PT/OT evaluation for placement Code status: full code Sterling Patrick MD, PhD Anesthesiology CA-1 09/21/23 8:02 PM Cosigned by Mally Roberts MD at 09/22/2023 9:39 PM CDT Associated attestation - Mally Roberts MD - 09/22/2023 9:39 PM CDT I have seen and examined the patient on 09/21/2023. I agree with the findings and plan of care as documented in the resident's/fellow's note.. * Doris Ibarra OT - 09/21/2023 2:14 PM CDT 09/21/23 1414 General OT Missed Visit Reason Patient declined (pt reports fatigue after recently finishing switching beds with PT; will continue to follow and evaluate as able) * Glenroy Rush, PT - 09/21/2023 1:32 PM CDT Physical Therapy Physical Therapy Progress Note NOTE: This is a summary note of the moran components of the treatment session. For full details, review chart for all flowsheets documented on by this physical therapy clinician on this date. Vital signs documented in vital signs flowsheet. Care plan progress documented in Care Plan Activity. For questions, please review the treatment team and contact the PT or TURPENTINE FARMER currently assigned to this patient. If a physical therapy clinician is not assigned to this patient, please call [phone]. 09/21/23 1332 PT Last Visit Session Type Treatment PT Received On 09/21/23 Safe Environment Arm band checked;Session completed bedside;Patient found in supine;Gait belt not utilized, see comment (no OOB mobility performed this visit) Subjective Agreeable to Therapy Family/Caregiver Present Yes (Daughter) Precautions Precautions Fall risk Weight Bearing Restrictions Yes LLE Weight Bearing NWB Braces/Orthoses Cervical collar (Iroquois J on throughout session) Precaution Handout Issued No Precaution Comments Verbally reviewed precautions, patient verbalized understanding Activity Tolerance Activity Tolerance Comments Nancy: TING () Pain Assessment Pain Assessment No/denies pain Cognition Arousal/Alertness Alert;Appropriate responses to stimuli Orientation Oriented to person;Oriented to place;Oriented to time Following Commands Follows multistep commands without difficulty Balance Balance Yes Static Sitting Balance Static Sitting-Balance Support Bilateral upper extremity supported;Feet supported Static Sitting-Sitting Surface Bed Static Sitting-Level of Assistance Minimum assistance Static Sitting-Comment/# of Minutes Min A for steadying assist ICU Mobility Scale ICU Mobility Scale 3 FSS-ICU Functional Status Score (ICU scale) Rolling 2 Supine to Sit 2 Sitting 4 Sit to Stand 0 Ambulation or Wheelchair Mobility? Wheelchair Mobility Wheelchair Mobility 0 Score (Out of 35) 8 Bed Mobility Bed Mobility Yes Bed Mobility 1 Bed Mobility From 1 Supine Bed Mobility Type 1 To and from Bed Mobility to 1 Edge of bed Level of Assistance 1 Maximum Assist Bed Mobility Comments 1 Max A via log roll for trunk elevation, LE positioning, and hip scooting Bed Mobility 2 Bed Mobility From 2 Supine Bed Mobility Type 2 To and from Bed Mobility to 2 Rolling right Level of Assistance 2 Maximum Assist Bed Mobility Comments 2 Max A for trunk rotation Bed Mobility 3 Bed Mobility From 3 Supine Bed Mobility Type 3 To and from Bed Mobility to 3 Rolling left Level of Assistance 3 Moderate Assist Bed Mobility Comments 3 Mod A for trunk rotation, patient able to participate more rolling to L dueto use of RLE for force production Transfers Transfer Yes Transfer 1 Transfer From 1 Bed (edge of bed) Transfer Type 1 To Transfer to 1 Bed Technique 1 Lateral Transfer Device 1 Mechanical device (overhead lift) Transfer Level of Assistance 1 Dependent Trials/Comments 1 use of overhead lift given patient's current mobility status and precautions Ambulation Ambulation No Stairs Stairs No Other Comments Other PT Comments Patient denied significant LE spasming this session, able to participate more this session Basic Mobility - 6 Click How much difficulty does the patient have: Turning over in bed 2 How much difficulty does the patient currently have: Sitting down and standing up from a chair witharms? 2 How much difficulty does the patient have: Moving from lying on back to sitting on the side of the bed? 3 How much difficulty does the patient have: Moving to and from a bed to a chair including wheelchair? 1 How much help does the patient currently need: Walk in hospital room? 1 How much help from another person does the patient currently need: Climbing 3-5 steps with a railing? 1 Total 6 Click Score (range 6-24) 10 Score Interpretation 28.13 Safe Environment End of Therapy Session Safe Environment End of Therapy Session RN notified;Call light within reach;Overbed table within reach;Patient left supine in bed Assessment Prognosis Good Problem List Decreased strength;Decreased endurance;Impaired balance;Decreased mobility;Pain;Orthopedic restrictions;Edema;Decreased active movement;Impaired tone Problem List Comments PT Diagnosis: SLMF with Left distal tib/fib fx ORIF and IMN Left distal tib/fib fx, cervical myelopathy now s/p C2-7 PSF w C3-6 decompression and bilateral C4-5 foraminotomies (09/19), admit to SICU for postoperative monitoring results in above listed activity deficits and impair ments which prevent full participation in home and community mobility Barriers to Discharge Current Mobility Status;Decreased caregiver support;Home environment challenged Plan Plan Continue with current plan;If this is the last note, consider this the discharge summary Recommendation/Plan PT Recommendation/Plan Residential Facility Patient at high risk for Readmission;Falls;Injury due to decreased ability to care for self;Injury due to reduced functional status;Injury due to balance deficits;Injury at home as patient has not returned to prior level of function;Prolonged dependence for self care tasks Recommend SNF due to Risk of injury at home;Unable to safely care for self in the home;Skilled therapy needed to address functional deficits;Skilled therapy needed to address care for self in the home;Skilled therapy needed for patient to return to prior level of independence PT Recommendation/Plan Comments Patient agreeable with current plan of care PT Frequency during current admission 5-7x/wk Treatment/Interventions during current admission Balance Training;Bed mobility;Endurance training;Functional activity;Functional transfer training;Transfer training;Therapeutic exercise;Therapeutic ac tivity;Strengthening PT Equipment Recommended Other (Comment) (Pending progress) Progress during current admission Progressing toward goals PT - Next Appointment 09/22/23 PT Evaluation Complete Yes Time Calculation Start Time 1332 Stop Time 1425 Time Calculation (min) 53 min Multi-Disciplinary Problems (from Physical Therapy) Active Problems Problem: Transfers Start Date: 09/17/23 Goal Start Date Expected End Date End Date STG - Transfer from bed to chair 09/17/23 10/01/23 -- Goal Details: Mod A Goal Start Date Expected End Date End Date STG - Patient to transfer to and from sit to supine 09/17/23 10/01/23 -- Goal Details: Min A Goal Start Date Expected End Date End Date STG - Patient will transfer sit to and from stand 09/17/23 10/01/23 -- Goal Details: Mod A * Isidro Gomes MD - 09/21/2023 9:19 AM CDT Images from the original note were not included. [facility]- Floor Daily Progress Note Admit: 09/16/2023 2:23 AM Date: September 21, 2023 Length of Stay: 5 Attending: Ibrahima Middleton MD POD:1 Day Post-Op Procedure(s): FUSION CERVICAL - POSTERIOR WITH INSTRUMENTATION C2-7; C3-6 Decompression; C4-5 Foraminotomies Subjective History: TRAUMA C 78 y.o. female denies PMH s/p GLF. #L distal tib/fib fx #C3-C4 spinal stenosis Procedures: 09/15: L tib fib IMN 09/19: PSF C2-C7 + C3-C6 laminectomies Interval History: She is POD 1 from posterior cervical fusion+ instrumentation from C2-7; C3-6 laminectomies, C4-5 bilateral foraminotomies On 0.3 naman for MAP augmentation Febrile to 38.7 overnight, per RNs patient very agitated and in pain, receiving scheduled tylenol Plan: PT OT Pain control Appreciate ortho spine recs Remain in SICU for MAP augmentation to 80-85 for 48h postop Objective Medications: Current Facility-Administered Medications: acetaminophen (TYLENOL) tablet 1,000 mg, 1,000 mg, oral, Q6H, Amy Lara NP, 1,000 mg at 09/21/23 0457 benzocaine-menthoL (CHLORASEPTIC) lozenge 1 lozenge, 1 lozenge, mouth/throat, Q2H PRN, Xiao Gomez MD Carrier Fluids for Secondary Infusion - 0.9% Sodium Chloride, 30 mL, intravenous, PRN, Marcos Salazar MD dextrose gel in packet 15 g, 15 g, oral, Q15 Min PRN OR dextrose (D10W) 10% bolus 250 mL, 250 mL, intravenous, Q15 Min PRN, Gwendolyn Bee MD dextrose 5% and Lactated Ringer's infusion, 25 mL/hr, intravenous, Continuous, Gwendolyn Bee MD, Last Rate: 25 mL/hr at 09/21/23 0700, 25 mL/hr at 09/21/23 0700 [Held by Provider] enoxaparin (LOVENOX) syringe 30 mg, 30 mg, subcutaneous, Q12H LILA, Hannah Chun NP, 30 mg at 09/18/23 2045 famotidine (PEPCID) tablet 20 mg, 20 mg, oral, Daily, Hannah Chun NP, 20 mg at 09/21/23 0816 gabapentin (NEURONTIN) capsule 200 mg, 200 mg, oral, BID, Xiao Gomez MD, 200 mg at 09/21/23 0329 glucagon injection 1 mg, 1 mg, intramuscular, Q30 Min PRN, Gwendolyn Bee MD HYDROmorphone in 0.9% sodium chloride (DILAUDID) 20 mg/100 mL (0.2 mg/mL) (premix), , intravenous, Continuous, Gwendolyn Bee MD, Rate Verify at 09/20/23 1655 insulin lispro (HumaLOG, ADMELOG) 100 unit/mL injection 1-3 Units, 1-3 Units, subcutaneous, Q4H LILA, Gwendolyn Bee MD labetaloL (NORMODYNE,TRANDATE) injection 20 mg, 20 mg, intravenous, Q2H PRN, Gwendolyn Bee MD Lactated Ringer's (LR) bolus 500 mL, 500 mL, intravenous, Once, Gwendolyn Bee MD lidocaine (ASPERCREME) 4 % patch 2 patch, 2 patch, transdermal, Q24H, Hannah Chun NP, 2 patch at 09/19/23 1341 methocarbamoL (ROBAXIN) tablet 750 mg, 750 mg, oral, QID, Hannah Chun NP, 750 mg at 09/21/23 0816 naloxone (NARCAN) 0.4 mg/mL injection 0.04-0.4 mg, 0.04-0.4 mg, intravenous, Q10 Min PRN, Gwendolyn Bee MD ondansetron (ZOFRAN) injection 4 mg, 4 mg, intravenous, Q6H PRN, Gwendolyn Bee MD oxyCODONE (ROXICODONE) tablet 5 mg, 5 mg, oral, Q4H PRN, Xiao Gomez MD phenoL (CHLORASEPTIC) 1.4 % oral spray 1 spray, 1 spray, mouth/throat, Q2H PRN, Xiao Gomez MD phenylephrine in 0.9% sodium chloride (NAMAN-SYNEPHRINE) 25,000 mcg/250 mL (100 mcg/mL) infusion (premix) solution, 0-2.5 mcg/kg/min, intravenous, Titrated, Xioa Gomez MD, Last Rate: 43.6 mL/hr at 09/21/23 0800, 1 mcg/kg/min at 09/21/23 0800 polyethylene glycol (MIRALAX) packet 17 g, 17 g, oral, Daily, Hannah Chun NP, 17 g at 09/21/23 0816 senna-docusate (PERICOLACE) 8.6-50 mg per tablet 1 tablet, 1 tablet, oral, BID, Marcos Salazar MD, 1 tablet at 09/21/23 0816 sodium chloride 0.9% flush 0.5-20 mL, 0.5-20 mL, intra-catheter, Q8H LILA, Marcos Salazar MD, 10 mL at 09/21/23 0707 sodium chloride 0.9% flush 0.5-20 mL, 0.5-20 mL, intra-catheter, PRN, Marcos Salazar MD traZODone (DESYREL) tablet 50 mg, 50 mg, oral, Nightly, Hannah Chun, [employer]HER, 50 mg at Past Medical: No past medical history on file. Surgical History: History reviewed. No pertinent surgical history. Is&Os: I/O last 2 completed shifts: In: 4245.2 [I.V.:3395.2; IV Piggyback:850] Out: 2595 [Urine:2215; Drains:180; Blood:200] I/O this shift: In: 110.1 [I.V.:110.1] Out: 460 [Urine:460] Physical Exam: 24hr Min/Max: Temp Min: 36.5 ??C (97.7 ??F) Max: 38.7 ??C (101.7 ??F) Pulse Min: 78 Max: 129 Resp Min: 8 Max: 21 SpO2 Min: 87 % Max: 100 % Physical Exam Vitals reviewed. Constitutional: Appearance: Normal appearance. She is diaphoretic. Neck: Comments: Neck in c-collar Cardiovascular: Rate and Rhythm: Normal rate. Pulmonary: Effort: Pulmonary effort is normal. Abdominal: Palpations: Abdomen is soft. Musculoskeletal: General: Tenderness and signs of injury present. Normal range of motion. Cervical back: Normal range of motion. Comments: LLE in splint Skin: General: Skin is warm. Neurological: General: No focal deficit present. Mental Status: She is alert and oriented to person, place, and time. Labs/Imaging: Recent Labs Lab Units 09/20/23202624 1534 09/20/2395109/19/232357 WBC K/cumm 10.7* 9.9 -- 9.5 HEMOGLOBIN, POC g/dL -- -- 9.4* -- HEMOGLOBIN g/dL 9.1* 9.8* -- 9.8* HEMATOCRIT % 28.2* 30.7* -- 30.8* HEMATOCRIT POC % -- -- 28.0* -- PLATELETS K/cumm 270 277 -- 270 Recent Labs Lab Units 09/21/23 0734 09/21/23 0347 09/21/23 0026 09/20/23202609/20/23 1600 09/20/23 15309/20/2395109/19/232357 SODIUM mmol/L -- -- -- 137 -- 140 -- 141 POTASSIUM PLASMA mmol/L -- -- -- 4.2 -- 3.7 -- 3.6 CHLORIDE mmol/L -- -- -- 103 -- 102 -- 103 CO2 mmol/L -- -- -- 28 -- 27 -- 29 BUN SERUM mg/dL -- -- -- 7 -- 7 -- 8 CREATININE mg/dL -- -- -- 0.36* -- 0.35* -- 0.44* GLUCOSE mg/dL -- -- -- 125 -- 136 -- 125 POC GLUCOSE MONITOR mg/dL 110 107 110 -- < > -- < > -- CALCIUM mg/dL -- -- -- 7.7* -- 7.9* -- 8.4* < > = values in this interval not displayed. Recent Labs Lab Units 09/19/232357 PROTIME (PT) sec 14.4* INR 1.26* MRI Cervical Spine WO Contrast Result Date: 09/19/2023 1. Severe high-grade spinal canal stenosis at C3-C4 level secondary to congenitally narrowed spinalcanal, multilevel disc osteophyte complex, and ligamentum flavum thickening. Cord edema is noted atthe C3-C4 level. 2. Other severe multilevel degenerative changes and multilevel severe spinal canal stenosis as detailed above. Findings regarding high-grade severe spinal canal stenosis and cord edema at C3-C4 were discussed with Dr. Hans Chance at 09/18/2023 8:[address] Cuate Mauricio. Dictated by: Cuate Mauricio MD The radiology attending physician has personally reviewed this study, and had reviewed and/or edited this written report and agrees with it. Electronically signed by: Inocencio Hilario M.D. I have independently reviewed and interpreted all relevant lab and radiographic data. Assessment/Plan Trauma Surgical Assessment and Plan Electrolyte imbalance Assessment & Plan - 09/17: Mg 1.7, Phos 2.9, K 3.1 - Magnesium and KPhos treated - 09/17: Mg 1.7, Phos 2.2, K 3.7 - Magnesium and KPhos treated - Monitor electrolytes Weakness of both arms Assessment & Plan - Pe patient, weakness started after fall. No weakness of arms prior to fall - No pain or resistance with passive movement. - CT c spine without injury, however spinal cord and neuroforaminal stenosis noted on CT - MRI: Severe high-grade spinal canal stenosis at C3-C4 level secondary to congenitally narrowed spinal canal, multilevel disc osteophyte complex, and ligamentum flavum thickening. Cord edema noted at the C3-C4 level - 09/17: Ortho Spine consulted - 09/18: Operative intervention recommended, patient discussing with family and spine team - PT/OT consult - Elevate arms for swelling - 09/19: OR w/ spine: posterior cervical fusion+ instrumentation from C2-7; C3-6 laminectomies, C4-5 bilateral foraminotomies Pulmonary nodule Assessment & Plan - CT C/A/P (09/15): Indeterminate right lower lobe pulmonary nodule with broad base along the pleura.Recommend comparison with prior imaging if available to document stability. If no prior imaging is available, recommend follow-up CT in 6-12 months. Discharge planning issues Assessment & Plan 09/16: Pending PT/OT for discharge planning Encounter for medication review Assessment & Plan - No past medical history, takes no medications at home Acute pain due to trauma Assessment & Plan - Tylenol 1000 mg q6h - Robaxin 500 mg TID, increased to 750 QID on 09/18 - Oxycodone 5 mg q4h PRN Closed fracture of shaft of left tibia, unspecified fracture morphology, initial encounter Assessment & Plan #Left tib fib fracture - Orthopedic consult - s/p OR 09/15 IMN - NWB LLE - Maintain SLS - PT/OT - Pain control - Bone health referral at discharge FEN: These fluid and electrolyte abnormalities are being treated, evaluated or monitored: Hypokalemia--potassium replacement Hypomagnesemia--replace and monitor Hypophosphatemia--replace and monitor Lines/Drains/Tubes: PIV DVT Prophylaxis: Lovenox Diet: Adult Diet Regular Activity: as tolerated, NWB LLE GI Prophylaxis: none Code Status: Full Code Total time spent included the following activities caring for this patient: Patient chart review, Examination and evaluation, Counseling/educating patient/family/caregiver, Ordering medications/tests/procedures, Referring & communicating with other health career coach, and Independent inte rpretation of results 45 minutes All care plans discussed with rounding/operative attending: MD Isidro Kong MD Cosigned by Desirae Akins MD at 09/22/2023 2:37 PM CDT Associated attestation - Desirae Akins MD - 09/22/2023 2:37 PM CDT I have seen and examined the patient on 09/21/2023. I agree with the findings and plan of care as discussed with the resident. I spent 8 minutes reviewing the chart, discussing the plan with the patient/family, discussing the plan with the team, and documenting in the medical record. This does not include any time spent on separately billable procedures. Ami Akins MD [facility], [facility] Acute and Critical Care Surgery [employer] * Nette Middleton MD PhD - 09/21/2023 7:53 AM CDT Orthopaedic Spine Service Daily Progress Note Admit Date: 09/16/2023 Hospital Day: 5 Yas/Michael Dx: C/f cervical myelopathy Relevant PMHx: None per patient Procedure(s): - 09/20/2023: C2-7 PSF w C3-6 decompression and bilateral C4-5 foraminotomies Interval History: 09/21/23: POD1 s/p C2-7 PSF w C3-6 decompression and bilateral C4-5 foraminotomies. In SICU for MAPgoals, naman weaned overnight. Febrile to 38.5 overnight, tachy to 120s. H/H: 9.1/28.2, WBC: 10.7, Cr: 0.36. +UOP. D1 30/170. Exam: RUE 2/5 deltoid, LUE 3/5 deltoid, BUE 4/5 biceps/triceps, 4/5 WF/WE/IO. SILT throughout. RLE 5/5, LLE limited by splint. SILT throughout BLE. Plan: MAP around 80-85 for 48 hours post-op. Q3h neurochecks. Maintain drain. Okay to discontinue abx from ortho spine perspective. Objective Vitals: 24hr Min/Max: Temp Min: 36.5 ??C (97.7 ??F) Max: 38.7 ??C (101.7 ??F) Pulse Min: 78 Max: 129 BP Min: 147/65 Max: 147/65 Resp Min: 8 Max: 21 SpO2 Min: 87 % Max: 100 % I/O last 2 completed shifts: In: 4245.2 [I.V.:3395.2; IV Piggyback:850] Out: 2595 [Urine:2215; Drains:180; Blood:200] I/O this shift: In: 51.4 [I.V.:51.4] Out: 60 [Urine:60] Physical Exam: Gen: no acute distress Neuro: A&Ox3 Dressing: clean/dry/intact Wound Vac(s): Not applicable Hemo Vac(s): Holding suction nicely, no apparent leaks Motor: Muscle Strength Right Left Shoulder abduction (C5) 2/5 3/5 Elbow flexion (C5/6) 4/5 4/5 Elbow extension (C7) 4/5 4/5 Wrist extension (C6) 4/5 4/5 Wrist flexion (C7) 4/5 4/5 Wedding Consultant (C8) 4/5 4/5 Interosseous of hand (T1) 4/5 4/5 Iliopsoas (L2/3) 5/5 Limited by LLE splint Quadriceps (L3/4) 5/5 Limited by LLE splint Tibialis anterior (L4/5) 5/5 Limited by LLE splint Extensor hallicus longus (L5) 5/5 5/5 Gastrocsoleus complex (S1) 5/5 Limited by LLE splint RUE 2/5 deltoid, LUE 3/5 deltoid, BUE 4/5 biceps/triceps, 4/5 WF/WE/IO. SILT throughout. RLE 5/5, LLE limited by splint. SILT throughout BLE. Sensation Left upper extremity: SILT C5 to T1 dermatomes. Right upper extremity: SILT C5 to T1 dermatomes. Left lower extremity: SILT L2 to S1 dermatomes. Right lower extremity: SILT L2 to S1 dermatomes. Vascular: Bilateral Upper Extremity: 2+ radial pulse, fingers WWP Bilateral Lower Extremity: 2+ DP pulse, toes WWP Lab/Diagnostic Review: Recent Labs Lab Units 09/21/23 0734 09/21/23 0026 09/20/23202609/20/23 0952 09/19/23 3868 09/16/23 2259 09/16/23 0302 SODIUM mmol/L -- -- 137 < > 141 < > 137 POTASSIUM PLASMA mmol/L -- -- 4.2 < > 3.6 < > 3.7 CHLORIDE mmol/L -- -- 103 < > 103 < > 105 CO2 mmol/L -- -- 28 < > 29 < > 23 ANIONGAP mmol/L -- -- 6 < > 9 < > 9 GLUCOSE mg/dL -- -- 125 < > 125 < > 101 POC GLUCOSE MONITOR mg/dL 110 < > -- < > -- -- -- BUN SERUM mg/dL -- -- 7 < > 8 < > 20 CREATININE mg/dL -- -- 0.36* < > 0.44* < > 0.58* CALCIUM mg/dL -- -- 7.7* < > 8.4* < > 8.4* ALBUMIN g/dL -- -- -- -- -- -- 3.1* ALK PHOS Units/L -- -- -- -- -- -- 78 ALT Units/L -- -- -- -- -- -- 33 AST Units/L -- -- -- -- -- -- 84* BILIRUBIN TOTAL mg/dL -- -- -- -- -- -- 0.8 WBC K/cumm -- -- 10.7* < > 9.5 < > 12.7* HEMOGLOBIN, POC -- -- -- < > -- -- -- HEMOGLOBIN g/dL -- -- 9.1* < > 9.8* < > 11.5* HEMATOCRIT % -- -- 28.2* < > 30.8* < > 35.2* HEMATOCRIT POC -- -- -- < > -- -- -- PLATELETS K/cumm -- -- 270 < > 270 < > 209 NEUTROS PCT % -- -- -- -- -- -- 78.6 LYMPHS PCT % -- -- -- -- -- -- 7.9 MONOS PCT % -- -- -- -- -- -- 12.6 EOS PCT % -- -- -- -- -- -- 0.1 APTT sec -- -- -- -- 30 -- 27* INR -- -- -- -- 1.26* -- 1.23* < > = values in this interval not displayed. Micro: No results found for: MICROBIOLOGY Assessment/Plan: 78 y.o. female with above injury/deformity. Patient is now status post C2-7 PSF w C3-6 decompression and bilateral C4-5 foraminotomies. Precautions: n/a Immobilization: Iroquois J Activity: Up ad ugy DVT ppx: Holding for OR today Therapy: PT/OT for OOB/mobilization as tolerated Drain: Continue until dry Antibiotics: Periop ancef Cultures: n/a Guerrier: Per primary Wound Care: Maintain surgical dressing, will be managed by Ortho team Diet: per primary Imaging: upright c-spine XR Additional Needs: none Ortho Spine will continue to follow this patient's hospital course. Dispo: Pending progress, postoperative recovery, and progress with therapy Follow-Up: We have not yet scheduled this patient for an appointment, but we will contact the patient with the details including the timing and location of their appointment once it is scheduled Nette Middleton MD, PhD Department of Orthopaedic Surgery PGY-1 [facility] in [facility] Please call with questions during daytime. See below for overnight issues. If you know the resident's name on the appropriate orthopaedic surgery team, please use [email or web address] to page resident directly. If questions arise and the appropriate resident can't be reached or you are calling overnight, please contact [phone] ([place]- 7:30 PM - 6:30 AM - Floor Resident) or [phone] (24 hours/day - Consult Resident) Cosigned by Hans Rodriguez MD at 09/21/2023 8:37 AM CDT Associated attestation - Hans Rodriguez MD - 09/21/2023 8:37 AM CDT I personally examined Ms. Domínguez this morning. I agree with the assessment and plan by Dr. Middleton. She may start subq heparin tomorrow for DVT prophylaxis. * [facility] Services[facility]ol[facility] Davalos MD - 09/21/2023 6:43 AM CDT Surgical ICU Daily Progress Team: Red AM 1 Subjective Patient is a 78 y.o. female admitted on 09/16/2023 2:23 AM. Patient presented 09/15 to ED after ground level fall, found to have L distal tib/fib fracture s/p IMN repair with ortho on 09/15. Found to have possibly worsening upper extremity weakness, MRI findings of spinal cord deformity, and ultimately went to OR with ortho spine for spinal decompression. In OR patient had stable neuromonitoring exceptfor waxing and waning C5. Interval History: 09/20 AM -AOx4 mental status improved, pain control adequate -500cc bolus -Ortho spine: q3h neurochecks, continue MAP > 80 through 48h postop, Iroquois J collar to be fitted, OOBTC/PT as tolerated Objective Physical Exam: Physical Exam HENT: Head: Normocephalic and atraumatic. Right Ear: External ear normal. Left Ear: External ear normal. Nose: Nose normal. Mouth/Throat: Mouth: Mucous membranes are moist. Eyes: Conjunctiva/sclera: Conjunctivae normal. Cardiovascular: Rate and Rhythm: Normal rate and regular rhythm. Pulses: Normal pulses. Heart sounds: Normal heart sounds. Pulmonary: Effort: Pulmonary effort is normal. Breath sounds: Normal breath sounds. Abdominal: General: Abdomen is flat. Bowel sounds are normal. There is no distension. Palpations: Abdomen is soft. Tenderness: There is no abdominal tenderness. Musculoskeletal: Right lower leg: No edema. Left lower leg: No edema. Skin: General: Skin is warm and dry. Capillary Refill: Capillary refill takes less than 2 seconds. Neurological: Mental Status: She is alert and oriented to person, place, and time. Comments: SILT bilateral upper extremities. Reports 50% decreased sensation on L vs R at site of IVrelated swelling. Sensation equal at shoulders. 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/5 apparently limited by hand swelling Biceps 4/5 bilaterally Deltoids 4/5 bilaterally Vital signs for last 24 hours: Temp: [36.5 ??C (97.7 ??F)-38.7 ??C (101.7 ??F)] 37.9 ??C (100.2 ??F) Pulse: [78-129] 115 Resp: [8-21] 11 SpO2: [87 %-100 %] 98 % Arterial Line BP: (107-195)/(50-90) 111/50 Hemodynamics: Pulmonary Support: O2 Therapy: Supplemental oxygen O2 Del Method: Nasal cannula O2 Flow Rate (L/min): 2 L/min Intake/Output: Intake/Output Summary (Last 24 hours) at 09/21/2023 1150 Last data filed at 09/21/2023 1000 Gross per 24 hour Intake 2267.56 ml Output 2940 ml Net -672.44 ml Lab/Radiology/Diagnostic Review: Laboratory review: Lab results in the last 12 hours: Recent Results (from the past 12 hour(s)) POCT glucose Collection Time: 09/21/23 12:26 AM Result Value Ref Range Glucose, POC 110 70 - 199 mg/dL POCT glucose Collection Time: 09/21/23 3:47 AM Result Value Ref Range Glucose, POC 107 70 - 199 mg/dL POCT glucose Collection Time: 09/21/23 7:34 AM Result Value Ref Range Glucose, POC 110 70 - 199 mg/dL Assessment/Plan Principal Problem: Cervical spondylosis with myelopathy Active Problems: Closed fracture of shaft of left tibia, unspecified fracture morphology, initial encounter Acute pain due to trauma Encounter for medication review Discharge planning issues Pulmonary nodule Weakness of both arms Electrolyte imbalance ICU SYSTEMS ASSESSMENT: Neuro: # Acute pain - Tylenol 1000 mg q6h lila - gabapentin 200mg TID - Robaxin 750 QID lila - dilaudid DIRECTOR OF ANNUAL GIVING 0.2/10m/1.2mg #upper extremity weakness #cervical myelopathy # posterior cervical fusion from C2-C7 # C3, C4, C5 and C6 laminectomies # C4-5 bilateral foraminotomies - mixed reports in chart, appears to be acute on chronic upper extremity weakness noted during admission 09/18 - No pain or resistance with passive movement. 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 Cord edema noted at the C3-C4 level - ortho spine c/s: s/p PSF 09/19 -Ortho spine: q3h neurochecks, continue MAP > 80 through 48h postop, Iroquois J collar to be fitted, OOBTC/PT as tolerated - PT/OT consult #at risk for delirium - delirium precautions/sleep hygiene - trazodone 50mg nightly #safety evaluation #concern for SI, resolved - on arrival to floor patient waking up from anesthesia, disoriented - at times stating I want to , please let me - on further prompting, patient denies thoughts of wanting to hurt herself or plans to hurt self, appears to not remember what she was saying - for further evaluation when more awake - Reassessment 6/10 PM onwards with patient AO x 3: no SI, daughter also reports no prior history of SI or concern for depression CV: - MAP > 80 through 48h postop - Phenylephrine gtt to maintain MAP > 80 Pulmonary: - SpO2 > 92% #pulmonary nodule - CT C/A/P (09/15): Indeterminate right lower lobe pulmonary nodule with broad base along the pleura.Recommend comparison with prior imaging if available to document stability. If no prior imaging is available, recommend follow-up CT in 6-12 months. GI: Diet: regular PUD PPx: not indicated Bowel regimen: miralax, senna Endo: - ICU LD SSI Renal: Fluid balance goal - permissive IVF: carrier Guerrier to gravity Electrolyte abnormality Replace PRN Heme: - Hgb > 7 DVT PPX: SCDs, hold chemoppx until POD2 per ortho spine ID: - s/p vanc and ancef in OR, no further abx indicated - blood culture x1 for fever Tmax 101.7 overnight Cultures: 09/20: blood cultures pending MSK: #Left tib fib fracture - Orthopedic consult - s/p OR 09/15 IMN - NWB LLE - Maintain SLS - PT/OT - Pain control - Bone health referral at discharge #cervical myelopathy s/p PSF - as above #likely osteoporosis - intraoperative finding during PSF - bone health referral as above on discharge ICU standards of care: Restraints: None Physical therapy/Activity: as tolerated, NWB LLE Access: PIVs, L radial art line Other: Dispo: PT/OT evaluation for placement Code status: full code Umberto Bee MD PhD Obstetrics & Gynecology - PGY 1 09/21/23 11:50 AM Cosigned by Noel Armijo MD at 10/12/2023 1:48 AM CDT * Xiao Gomez MD - 09/21/2023 2:13 AM CDT Surgical ICU Daily Progress Team: Red PM Subjective Patient is a 78 y.o. female admitted on 09/16/2023 2:23 AM. Patient presented 09/15 to ED after ground level fall, found to have L distal tib/fib fracture s/p IMN repair with ortho on 09/15. Found to have possibly worsening upper extremity weakness, MRI findings of spinal cord deformity, and ultimately went to OR with ortho spine for spinal decompression. In OR patient had stable neuromonitoring exceptfor waxing and waning C5. Interval History: 09/19 PM -Naman for MAP 80 or above augmentation -500 mL of IV fluids -patient reaffirmed no SI or HI Objective Physical Exam: Physical Exam General: Sleepy but interactive. No acute distress. Non-toxic appearing. Head: Atraumatic. Eyes: No scleral icterus. Eye movements and pupils grossly congruent and intact. Ears: Normal external ears. Nose: Grossly normal. No rhinorrhea. No ecchymoses. Mouth: No erythema or lesions. Neck: In c collar Lungs: No respiratory distress. Lungs CTAB. Heart: RRR on auscultation. No edema. No JVD. Abdomen: Soft, non-distended. No tenderness to light or deep palpation. No guarding. MSK: Left cast in place with well perfused toes. Otherwise - no joint swelling or redness. No decreased range of motion. No gross deformities. Skin: No rashes, petechiae, lesions. Moist mucus membranes. Capillary refill < 2. Neuro: Grossly intact. Mild weakness in the bilateral upper extremities, although potentially limited by sleepiness/effort but unable to tell. Psych: Appropriate behavior and mood for situation. No SI or HI. Vital signs for last 24 hours: Temp: [36.4 ??C (97.5 ??F)-37.9 ??C (100.2 ??F)] 37.9 ??C (100.2 ??F) Pulse: [78-122] 99 BP: (126-147)/(59-68) 147/65 Resp: [8-21] 15 SpO2: [87 %-100 %] 94 % Arterial Line BP: (115-195)/(50-90) 158/79 Hemodynamics: MAP (mmHg): [80-88] 88 Pulmonary Support: O2 Therapy: Supplemental oxygen O2 Del Method: Nasal cannula O2 Flow Rate (L/min): 2 L/min Intake/Output: Intake/Output Summary (Last 24 hours) at 09/21/2023 0214 Last data filed at 09/21/2023 0100 Gross per 24 hour Intake 4081.25 ml Output 2835 ml Net 1246.25 ml Lab/Radiology/Diagnostic Review: Laboratory review: Lab results in the last 12 hours: Recent Results (from the past 12 hour(s)) Basic metabolic panel Collection Time: 09/20/23 3:34 PM Result Value Ref Range Sodium 140 135 - 145 mmol/L Potassium, pl 3.7 3.3 - 4.9 mmol/L Chloride 102 97 - 110 mmol/L CO2 27 22 - 32 mmol/L Anion gap 11 2 - 15 mmol/L BUN 7 6 - 25 mg/dL Creatinine 0.35 (L) 0.60 - 1.10 mg/dL Glucose 136 70 - 199 mg/dL Calcium 7.9 (L) 8.5 - 10.3 mg/dL Magnesium Collection Time: 09/20/23 3:34 PM Result Value Ref Range Magnesium 1.5 1.4 - 2.5 mg/dL Phosphorus Collection Time: 09/20/23 3:34 PM Result Value Ref Range Phosphorus, pl 3.3 2.3 - 4.5 mg/dL CBC without differential Collection Time: 09/20/23 3:34 PM Result Value Ref Range WBC 9.9 3.8 - 9.9 K/cumm Hgb 9.8 (L) 11.9 - 15.5 g/dL Hct 30.7 (L) 35.6 - 45.5 % Plt 277 150 - 400 K/cumm MPV 10.2 9.1 - 12.3 fL RBC 3.35 (L) 3.90 - 5.20 M/cumm MCV 91.6 81.3 - 96.4 fL MCH 29.3 27.1 - 33.3 pg MCHC 31.9 (L) 32.3 - 35.7 g/dL RDW CV 13.3 11.1 - 14.9 % RDW SD 44.0 35.7 - 48.1 fL NRBC abs 0.00 0.00 - 0.01 K/cumm eGFR Collection Time: 09/20/23 3:34 PM Result Value Ref Range eGFR >90 >=60 mL/min/1.73 m2 POCT glucose Collection Time: 09/20/23 4:00 PM Result Value Ref Range Glucose, POC 116 70 - 199 mg/dL POCT glucose Collection Time: 09/20/23 7:44 PM Result Value Ref Range Glucose, POC 122 70 - 199 mg/dL Basic metabolic panel Collection Time: 09/20/23 8:27 PM Result Value Ref Range Sodium 137 135 - 145 mmol/L Potassium, pl 4.2 3.3 - 4.9 mmol/L Chloride 103 97 - 110 mmol/L CO2 28 22 - 32 mmol/L Anion gap 6 2 - 15 mmol/L BUN 7 6 - 25 mg/dL Creatinine 0.36 (L) 0.60 - 1.10 mg/dL Glucose 125 70 - 199 mg/dL Calcium 7.7 (L) 8.5 - 10.3 mg/dL CBC without differential Collection Time: 09/20/23 8:27 PM Result Value Ref Range WBC 10.7 (H) 3.8 - 9.9 K/cumm Hgb 9.1 (L) 11.9 - 15.5 g/dL Hct 28.2 (L) 35.6 - 45.5 % Plt 270 150 - 400 K/cumm MPV 10.3 9.1 - 12.3 fL RBC 3.08 (L) 3.90 - 5.20 M/cumm MCV 91.6 81.3 - 96.4 fL MCH 29.5 27.1 - 33.3 pg MCHC 32.3 32.3 - 35.7 g/dL RDW CV 13.2 11.1 - 14.9 % RDW SD 44.2 35.7 - 48.1 fL NRBC abs 0.00 0.00 - 0.01 K/cumm Magnesium Collection Time: 09/20/23 8:27 PM Result Value Ref Range Magnesium 2.4 1.4 - 2.5 mg/dL Phosphorus Collection Time: 09/20/23 8:27 PM Result Value Ref Range Phosphorus, pl 3.5 2.3 - 4.5 mg/dL eGFR Collection Time: 09/20/23 8:27 PM Result Value Ref Range eGFR >90 >=60 mL/min/1.73 m2 POCT glucose Collection Time: 09/21/23 12:26 AM Result Value Ref Range Glucose, POC 110 70 - 199 mg/dL Assessment/Plan Principal Problem: Cervical spondylosis with myelopathy Active Problems: Closed fracture of shaft of left tibia, unspecified fracture morphology, initial encounter Acute pain due to trauma Encounter for medication review Discharge planning issues Pulmonary nodule Weakness of both arms Electrolyte imbalance ICU SYSTEMS ASSESSMENT: Neuro: # Acute pain - Tylenol 1000 mg q6h lila - Robaxin 750 QID lila - PRN dilaudid > dPCA when awake from OR #upper extremity weakness #cervical myelopathy # posterior cervical fusion from C2-C7 # C3, C4, C5 and C6 laminectomies # C4-5 bilateral foraminotomies - mixed reports in chart, appears to be acute on chronic upper extremity weakness noted during admission 6/8 - No pain or resistance with passive movement. 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 Cord edema noted at the C3-C4 level - ortho spine c/s: s/p PSF 09/19 - PT/OT consult #at risk for delirium - delirium precautions/sleep hygiene - trazodone 50mg nightly #safety evaluation - on arrival to floor patient waking up from anesthesia, disoriented - at times stating I want to , please let me - on further prompting, patient denies thoughts of wanting to hurt herself or plans to hurt self, appears to not remember what she was saying - for further evaluation when more awake - Reassessment 09/20 PM notable for AO x 3 patient, no SI, daughter also reports no prior history ofSI or concern from a depression standpoint CV: - MAP > 80-85 through 48h postop - Phenylephrine gtt to maintain MAP > 80-85 Pulmonary: - SpO2 > 92% #pulmonary nodule - CT C/A/P (09/15): Indeterminate right lower lobe pulmonary nodule with broad base along the pleura.Recommend comparison with prior imaging if available to document stability. If no prior imaging is available, recommend follow-up CT in 6-12 months. GI: Diet: regular PUD PPx: not indicated Bowel regimen: miralax, senna Endo: - ICU LD SSI Renal: Fluid balance goal - permissive IVF: D5LR@25, dc when taking appropriate PO Guerrier to gravity Electrolyte abnormality Replace PRN Heme: - Hgb > 7 DVT PPX: SCDs, hold chemoppx until POD2 per ortho spine ID: - s/p vanc and ancef in OR MSK: #Left tib fib fracture - Orthopedic consult - s/p OR 09/15 IMN - NWB LLE - Maintain SLS - PT/OT - Pain control - Bone health referral at discharge #cervical myelopathy s/p PSF - as above #likely osteoporosis - intraoperative finding during PSF - bone health referral as above on discharge ICU standards of care: Restraints: None Physical therapy/Activity: as tolerated, NWB LLE Access: PIVs, L radial art line Other: Dispo: PT/OT evaluation for placement Goals of care: Full code Code status: full code Xiao Gomez MD 09/21/23 2:14 AM Cosigned by Mally Roberts MD at 09/21/2023 2:39 AM CDT Associated attestation - Mally Roberts MD - 09/21/2023 2:39 AM CDT I have seen and examined the patient on 09/21/23. I agree with the findings and plan of care as documented in the resident's/fellow's note.. * Nette Middleton MD PhD - 09/20/2023 8:06 AM CDT Orthopaedic Spine Service Daily Progress Note Admit Date: 09/16/2023 Hospital Day: 4 [facility] Dx: C/f cervical myelopathy Relevant PMHx: None per patient Plan: pending C2-7 PSF w C3-6 decompression and C4-5 foraminotomies Procedure(s): pending C2-7 PSF w C3-6 decompression and C4-5 foraminotomies Interval History: 09/20/23: NAEON. AFVSS overnight. H/H: 9.8/30.8, WBC: 9.5, Cr: 0.44. Exam: Refusing to be examined this morning. Plan: OR today for C2-7 PSF w C3-6 decompression and C4-5 foraminotomies. Objective Vitals: 24hr Min/Max: Temp Min: 36.4 ??C (97.5 ??F) Max: 37.4 ??C (99.3 ??F) Pulse Min: 86 Max: 124 BP Min: 120/62 Max: 160/79 Resp Min: 15 Max: 22 SpO2 Min: 90 % Max: 99 % I/O last 2 completed shifts: In: - Out: 1949 [Urine:1950] No intake/output data recorded. Physical Exam: Gen: no acute distress Neuro: refusing to participate in exam Motor/Sensation Unable to evaluate motor or sensory exam as patient refusing to participate Vascular: Bilateral Upper Extremity: fingers WWP Bilateral Lower Extremity: toes WWP Lab/Diagnostic Review: Recent Labs Lab Units 09/19/23 2358 09/16/23 2259 09/16/23 0302 SODIUM mmol/L 141 < > 137 POTASSIUM PLASMA mmol/L 3.6 < > 3.7 CHLORIDE mmol/L 103 < > 105 CO2 mmol/L 29 < > 23 ANIONGAP mmol/L 9 < > 9 GLUCOSE mg/dL 125 < > 101 BUN SERUM mg/dL 8 < > 20 CREATININE mg/dL 0.44* < > 0.58* CALCIUM mg/dL 8.4* < > 8.4* ALBUMIN g/dL -- -- 3.1* ALK PHOS Units/L -- -- 78 ALT Units/L -- -- 33 AST Units/L -- -- 84* BILIRUBIN TOTAL mg/dL -- -- 0.8 WBC K/cumm 9.5 < > 12.7* HEMOGLOBIN g/dL 9.8* < > 11.5* HEMATOCRIT % 30.8* < > 35.2* PLATELETS K/cumm 270 < > 209 NEUTROS PCT % -- -- 78.6 LYMPHS PCT % -- -- 7.9 MONOS PCT % -- -- 12.6 EOS PCT % -- -- 0.1 APTT sec 30 -- 27* INR 1.26* -- 1.23* < > = values in this interval not displayed. Micro: No results found for: MICROBIOLOGY Assessment/Plan: 78 y.o. female with above injury/deformity. Ortho is planning OR today for C2-7 PSF w C3-6 decompression and C4-5 foraminotomies. Precautions: n/a Immobilization: none Activity: Up ad guy DVT ppx: Holding for OR today Therapy: PT/OT for OOB/mobilization as tolerated Drain: n/a Antibiotics: Periop ancef Cultures: n/a Guerrier: Per primary Wound Care: Maintain surgical dressing, will be managed by Ortho team Diet: NPO Imaging: none Additional Needs: none Ortho Spine will continue to follow this patient's hospital course. Dispo: Pending progress, postoperative recovery, and progress with therapy Follow-Up: We have not yet scheduled this patient for an appointment, but we will contact the patient with the details including the timing and location of their appointment once it is scheduled Please call with questions during daytime. See below for overnight issues. If you know the resident's name on the appropriate orthopaedic surgery team, please use [email or web address] to page resident directly. If questions arise and the appropriate resident can't be reached or you are calling overnight, please contact [phone] ([place]- 7:30 PM - 6:30 AM - Floor Resident) or [phone] (24 hours/day - Consult Resident) Cosigned by Hans Rodriguez MD at 09/20/2023 9:10 AM CDT Associated attestation - Hans Rodriguez MD - 09/20/2023 9:10 AM CDT I saw Ms. Domínguez this morning. I agree with the assessment and plan by Dr. Middleton. * Hans Rodriguez MD - 09/19/2023 8:42 PM CDT I talked to Aidee again this evening. I described the procedure in detail including the risks and benefits and the patient wished to proceed with surgery tomorrow morning. Risks of surgery include C5 palsy, spinal cord injury including paralysis, spinal nonunion, spinal fluid leak, infection, nerve root injury, adjacent segment disease, instrumentation failure including bertin or screw fracture, need for revision surgery, hematoma/seroma formation, blood clots and anesthesia related complications. I also called her daughter and discussed the plan for surgery tomorrow. They both wished to proceed. * Hannah Chun NP - 09/19/2023 1:26 PM CDT [facility] Tra[facility] Service- Floor Daily Progress Note Admit: 09/16/2023 2:23 AM Date: September 19, 2023 Length of Stay: 3 Attending: Ibrahima Middleton MD POD:Day of Surgery Procedure(s): FUSION CERVICAL/THORACIC - POSTERIOR WITH INSTRUMENTATION Subjective History: TRAUMA C 78 y.o. female denies PMH s/p GLF. #L distal tib/fib fx Procedures: 09/15: L tib fib IMN Edited by: Ayesha Liu MD at 09/17/2023 0614 Interval History: BUE weakness continues, MRI demonstrated severe cervical spine stenosis, Ortho Spine consulted. Operative intervention recommended. Pt refused intervention this am. Continues to endorse BLE muscle spasms. Robaxin increased, KPhos, Mg treated. Pt encouraged to get OOB and work withtherapy. Objective Medications: Current Facility-Administered Medications: acetaminophen (TYLENOL) tablet 1,000 mg, 1,000 mg, oral, Q6H, Amy Lara NP, 1,000 mg at 09/18/23 1715 Carrier Fluids for Secondary Infusion - 0.9% Sodium Chloride, 30 mL, intravenous, PRN, Marcos Salazar MD enoxaparin (LOVENOX) syringe 30 mg, 30 mg, subcutaneous, Q12H LILA, Hannah Chun NP, 30 mg at 09/18/235 famotidine (PEPCID) tablet 20 mg, 20 mg, oral, Daily, Hannah Chun NP, 20 mg at 09/18/23 1024 lidocaine (ASPERCREME) 4 % patch 2 patch, 2 patch, transdermal, Q24H, Hannah Chun NP magnesium oxide (MAG-OX) tablet 800 mg, 800 mg, oral, Daily, Hannah Chun NP, 800 mg at 09/19/23 1116 methocarbamoL (ROBAXIN) tablet 750 mg, 750 mg, oral, QID, Hannah Chun NP methocarbamoL (ROBAXIN) tablet 750 mg, 750 mg, oral, Once, Hannah Chun NP oxyCODONE (ROXICODONE) tablet 2.5 mg, 2.5 mg, oral, Q4H PRN, Marcos Salazar MD, 2.5 mg at 09/18/23 0334 polyethylene glycol (MIRALAX) packet 17 g, 17 g, oral, Daily, Hannah Chun, LUIGI senna-docusate (PERICOLACE) 8.6-50 mg per tablet 1 tablet, 1 tablet, oral, BID, Marcos Salazar MD, 1 tablet at 09/18/23 0916 sodium chloride 0.9% flush 0.5-20 mL, 0.5-20 mL, intra-catheter, Q8H LILA, Marcos Salazar MD, 10 mL at 09/19/23 0519 sodium chloride 0.9% flush 0.5-20 mL, 0.5-20 mL, intra-catheter, PRN, Marcos Salazar MD Past Medical: No past medical history on file. Surgical History: History reviewed. No pertinent surgical history. Is&Os: I/O last 2 completed shifts: In: - Out: 1150 [Urine:1150] I/O this shift: In: - Out: 450 [Urine:450] Physical Exam: 24hr Min/Max: Temp Min: 36.8 ??C (98.2 ??F) Max: 37.4 ??C (99.3 ??F) Pulse Min: 101 Max: 124 BP Min: 138/82 Max: 160/79 Resp Min: 17 Max: 22 SpO2 Min: 91 % Max: 97 % Physical Exam Vitals and nursing note reviewed. Constitutional: Appearance: She is obese. Cardiovascular: Rate and Rhythm: Normal rate. Pulmonary: Effort: Pulmonary effort is normal. Abdominal: Palpations: Abdomen is soft. Musculoskeletal: General: Tenderness and signs of injury present. Normal range of motion. Cervical back: Normal range of motion. Comments: LLE in splint Skin: General: Skin is warm and dry. Neurological: General: No focal deficit present. Mental Status: She is alert and oriented to person, place, and time. Comments: Pt appeared suspicious of staff Labs/Imaging: Recent Labs Lab Units 09/19/23 0135 09/18/23 0125 09/16/23 2259 WBC K/cumm 8.8 8.4 10.4* HEMOGLOBIN g/dL 9.3* 9.3* 10.3* HEMATOCRIT % 28.6* 28.4* 32.3* PLATELETS K/cumm 217 175 179 Recent Labs Lab Units 09/19/23 0135 09/18/23 0125 09/16/23 2259 SODIUM mmol/L 144 140 141 POTASSIUM PLASMA mmol/L 3.7 3.1* 3.8 CHLORIDE mmol/L 107 106 108 CO2 mmol/L 29 27 28 BUN SERUM mg/dL 6 9 12 CREATININE mg/dL 0.41* 0.45* 0.54* GLUCOSE mg/dL 87 97 130 CALCIUM mg/dL 8.2* 7.8* 8.0* Recent Labs Lab Units 09/16/23 0302 PROTIME (PT) sec 14.0* INR 1.23* MRI Cervical Spine WO Contrast Result Date: 09/19/2023 1. Severe high-grade spinal canal stenosis at C3-C4 level secondary to congenitally narrowed spinalcanal, multilevel disc osteophyte complex, and ligamentum flavum thickening. Cord edema is noted atthe C3-C4 level. 2. Other severe multilevel degenerative changes and multilevel severe spinal canal stenosis as detailed above. Findings regarding high-grade severe spinal canal stenosis and cord edema at C3-C4 were discussed with Dr. Hans Chance at 09/18/2023 8:[address] Cuate Mauricio. Dictated by: Cuate Mauricio MD The radiology attending physician has personally reviewed this study, and had reviewed and/or edited this written report and agrees with it. Electronically signed by: Inocencio Hilario M.D. I have independently reviewed and interpreted all relevant lab and radiographic data. Assessment/Plan Trauma Surgical Assessment and Plan Closed fracture of shaft of left tibia, unspecified fracture morphology, initial encounter Assessment & Plan #Left tib fib fracture - Orthopedic consult - s/p OR 09/15 IMN - NWB LLE - Maintain SLS - PT/OT - Pain control - Bone health referral at discharge Electrolyte imbalance Assessment & Plan - 09/17: Mg 1.7, Phos 2.9, K 3.1 - Magnesium and KPhos treated - 09/17: Mg 1.7, Phos 2.2, K 3.7 - Magnesium and KPhos treated - Monitor electrolytes Weakness of both arms Assessment & Plan - Pe patient, weakness started after fall. No weakness of arms prior to fall - No pain or resistance with passive movement. - CT c spine without injury, however spinal cord and neuroforaminal stenosis noted on CT - MRI: Severe high-grade spinal canal stenosis at C3-C4 level secondary to congenitally narrowed spinal canal, multilevel disc osteophyte complex, and ligamentum flavum thickening. Cord edema noted at the C3-C4 level - 09/17: Ortho Spine consulted - 09/18: Operative intervention recommended, patient discussing with family and spine team - PT/OT consult - Elevate arms for swelling. Acute pain due to trauma Assessment & Plan - Tylenol 1000 mg q6h - Robaxin 500 mg TID, increased to 750 QID on 09/18 - Oxycodone 5 mg q4h PRN Pulmonary nodule Assessment & Plan - CT C/A/P (09/15): Indeterminate right lower lobe pulmonary nodule with broad base along the pleura.Recommend comparison with prior imaging if available to document stability. If no prior imaging is available, recommend follow-up CT in 6-12 months. Discharge planning issues Assessment & Plan 09/16: Pending PT/OT for discharge planning Encounter for medication review Assessment & Plan - No past medical history, takes no medications at home FEN: These fluid and electrolyte abnormalities are being treated, evaluated or monitored: Hypokalemia--potassium replacement Hypomagnesemia--replace and monitor Hypophosphatemia--replace and monitor Lines/Drains/Tubes: PIV DVT Prophylaxis: Lovenox Diet: Adult Diet Regular Activity: as tolerated, NWB LLE GI Prophylaxis: none Code Status: Full Code Total time spent included the following activities caring for this patient: Patient chart review, Examination and evaluation, Counseling/educating patient/family/caregiver, Ordering medications/tests/procedures, Referring & communicating with other health career coach, and Independent inte rpretation of results 45 minutes All care plans discussed with rounding/operative attending: MD Hannah Kong NP Cosigned by Desirae Akins MD at 09/20/2023 2:10 PM CDT * Hans Rodriguez MD - 09/19/2023 10:17 AM CDT I just got off the phone with Aidee Rodriguez's daughter. She states that the upper extremity weaknessis new since at least her injury. She is unsure if it occurred before or after the surgery. I discussed that the 24 hour surgery window hat optimizes the likelihood of spinal cord recovery has passedso performing the surgery to remove spinal cord compression today versus in the next couple days would not make much difference in her intermediate recovery. Jennifer plans to see her mother today to evaluate her mental status and decision making compared to baseline and to assess her arm function compared to baseline as well. That will help make a decision on whether or not to proceed with surgery. I did discuss my physical exam and discussed with her the findings on the cervical spine MRI. Right nowboth Aidee and Jennifer do not want to proceed with surgery. If they do change their minds we will proceed with surgery at that time. * Hans Rodriguez MD - 09/19/2023 7:47 AM CDT Orthopaedic Trauma Service Daily Progress Note Admit Date: 09/16/2023 Hospital Day: 3 MRO Dx: L distal tib/fib fx Injury Mechanism: SLMF OI: none PMHx: none Procedure(s): 09/16/23 ORIF + IMN L distal tib/fib fx Interval History: POD3. Tachy to the 110s o/w AFVSS. Pain controlled. AM labs pending. Primary team obtained MRI cervical spine due to upper extrmeity weakness. MRI concerning for severe cervical stenosis and cord signal change at C3-C4. Ortho spine consulted. Per pt, weakness is improving. Splint/dressings c/d/I. OTS will plan to s/o and follow peripherally. Please call with additional questions/concerns Objective Vitals: 24hr Min/Max: Temp Min: 36.8 ??C (98.2 ??F) Max: 37.1 ??C (98.8 ??F) Pulse Min: 101 Max: 125 BP Min: 118/64 Max: 147/81 Resp Min: 18 Max: 18 SpO2 Min: 90 % Max: 94 % I/O last 2 completed shifts: In: - Out: 1150 [Urine:1150] No intake/output data recorded. Physical Exam: Gen: No acute distress Alert and oriented: x3 Extremity Left Lower extremity Dressing/wound: dressing clean/dry/intact Immobilization: splint intact, tolerating well Sensation: intact to light touch in the superficial peroneal, deep peroneal, and tibial distributions Motor: wiggles all toes Perfusion: toes WWP Lab/Diagnostic Review: Recent Labs Lab Units 09/19/23 0135 09/16/23 2259 09/16/23 0302 SODIUM mmol/L 144 < > 137 POTASSIUM PLASMA mmol/L 3.7 < > 3.7 CHLORIDE mmol/L 107 < > 105 CO2 mmol/L 29 < > 23 ANIONGAP mmol/L 8 < > 9 GLUCOSE mg/dL 87 < > 101 BUN SERUM mg/dL 6 < > 20 CREATININE mg/dL 0.41* < > 0.58* CALCIUM mg/dL 8.2* < > 8.4* ALBUMIN g/dL -- -- 3.1* ALK PHOS Units/L -- -- 78 ALT Units/L -- -- 33 AST Units/L -- -- 84* BILIRUBIN TOTAL mg/dL -- -- 0.8 WBC K/cumm 8.8 < > 12.7* HEMOGLOBIN g/dL 9.3* < > 11.5* HEMATOCRIT % 28.6* < > 35.2* PLATELETS K/cumm 217 < > 209 NEUTROS PCT % -- -- 78.6 LYMPHS PCT % -- -- 7.9 MONOS PCT % -- -- 12.6 EOS PCT % -- -- 0.1 APTT sec -- -- 27* INR -- -- 1.23* < > = values in this interval not displayed. Micro: No results found for: MICROBIOLOGY Assessment/Plan: 78 y.o. female p/w the above injuries. Patient is now status post above WB Status: Non-weight bearing left lower extremity Immobilization: SLS Activity: Ambulate with assist Therapy: PT/OT for OOB/mobilization as tolerated. Precautions: None DVT ppx: Unilateral lower extremity injury: Lovenox 40mg QHS postop while in the hospital, on discharge transition to Aspirin 81mg BID x 14 days to take with food OR continue Lovenox 40mg QHS if patient will return for further orthopaedic surgery Drain: n/a Antibiotics: Periop: Ancef 1-2gm IV Q8hrs for 24 hours postoperative Cultures: None Wound Care: Maintain surgical dressing until follow-up Sutures/Dee Dee: Will be removed 3 weeks after surgical date. Please include on discharge orders ifpatient is going to a facility. If the patient is still in the hospital at that time they will be removed by the orthopedic team. Guerrier: n/a Diet: Regular Additional Needs: Bone health referral at discharge Ortho Trauma will sign off at this time, and follow their hospital course peripherally. Please callwith any concerns. Dispo: Pending progress, postoperative recovery, and progress with therapy Follow-Up: Patient has follow up scheduled on 10/06/[address] Taylor located at [facility] Chon Miner MD Orthopaedic Surgery PGY2 Please call with questions during daytime. See below for overnight issues. If you know the resident's name on the appropriate orthopaedic surgery team, please use [email or web address] to page resident directly. If questions arise and the appropriate resident can't be reached or you are calling overnight, please contact [phone] ([place]- 7:30 PM - 6:30 AM - Floor Resident) or [phone] (24 hours/day - Consult Resident) I personally examined Ms. Domínguez this morning and reviewed the cervical spine MRI on 09/19/2023. Thereis severe central canal stenosis with spinal cord deformity and signal change at C3-4 with some ligamentum flavum infolding at the inferior aspect of C2 that may prevent some spinal cord float back. There is also severe spinal cord deformity at C5-6 and C6-7. She has severe neuroforaminal stenosis a t C4-5 with already very weak deltoids. On my exam, she had 2/5 deltoids bilaterally, 3/5 biceps and wrist extension bilaterally, 3/5 triceps, 3/5 buckle stringer, and 2/5 interossei bilaterally. She was able to follow commands but is a little confused. Given the amount of weakness and spinal cord deformity with the weakness being new onset we willdecompress the spinal cord in an urgent manner. This will include C2-7 posterior cervical fusion, C3-6 laminectomies, and a C7 dome laminectomy, and C4-5 foraminotomies. She is at high risk of weak deltoids postoperatively given the severity of her C4-5 neuroforaminal stenosis and this could worsenwith spinal cord float back. The risks of the surgery were discussed with the patient and include spinal fluid leak, paralysis, failure to have improvement in motor function, greater nerve weakness following surgery, spinal nonunion, adjacent segment disease, hematoma/seroma formation, need for revision surgery, infection, blood clots, and anesthesia related complications. * Hannah Chun NP - 09/18/2023 2:30 PM CDT Images from the original note were not included. Trauma C Service - Continuation of Care Note Summary of Plan from Rounds: patient lying in bed in no distress, noted her BUE weakness improved this am. No nausea, oriented x4, awaiting OT recs Significant events occurring after rounds: family at bedside, pt endorsed stable but continued weakness to both arms. Having difficulty eating, drinking due to weakness, family asking about dischargeplan, plan for arms, order MRI c spine [facility]: attended in person. Not medically ready for d/c. Requires therapy recs Labs and test results reviewed: CT head and neck with no cervical fracture, severe multilevel DDD with up to severe stenosis at C3-C4 and up to severe neuroforaminal stenosis at R C5-C^ and left C4-C5, C3-C4 Counseling/educating patient/family/caregiver pertaining to plan for placement after hospitalization, role of CM, contacting CM, plan for BUE weakness work up All care plans discussed with rounding/operative attending: Blane Vidal MD My total encounter time on 09/18/2023 was 30 minutes which was spent in the management of traumatic injuries performing the activities documented in the note. This includes time spent prior to the visit and after the visit in direct care of the patient. This time does not include time spent in any separately reportable services. Hannah Chun NP Section of Acute and Critical Care Surgery * Naheed Cruz MD - 09/18/2023 8:00 AM CDT [facility] Trauma C Service- Floor Daily Progress Note Admit: 09/16/2023 2:23 AM Date: September 18, 2023 Length of Stay: 2 Attending: Ibrahima Middleton MD POD:2 Days Post-Op Procedure(s): INTRAMEDULLARY NAIL - TIBIAL and FIBULA Subjective History: TRAUMA C 78 y.o. female denies H s/p GLF. #L distal tib/fib fx Procedures: 09/15: L tib fib IMN Edited by: Ayesha Liu MD at 09/17/2023 0614 Interval History: Doing well on the floor. Examined for proximal upper extremity muscle weakness. Known significant C3-C5 spinal stenosis, and likely super imposed weakness. K 3.1 repeated, patient stable on repeat exams. Motor and sensation intact in all hand distributions, no bony tenderness. Weakness mostly in deltoids, biceps, Improved on exam this morning. Plan for cont. recovery, PT/OT. Objective Medications: Current Facility-Administered Medications: acetaminophen (TYLENOL) tablet 1,000 mg, 1,000 mg, oral, Q6H, Amy Lara NP, 1,000 mg at 09/18/23 0334 Carrier Fluids for Secondary Infusion - 0.9% Sodium Chloride, 30 mL, intravenous, PRN, Marcos Salazar MD enoxaparin (LOVENOX) syringe 30 mg, 30 mg, subcutaneous, Q12H [facility], Amy Lara NP, 30 mg at 09/17/232009 famotidine (PEPCID) 20 mg/50 mL in sodium chloride 0.9% (premix) 20 mg, 20 mg, intravenous, Q24H LILA, Marcos Salazar MD, Last Rate: 150 mL/hr at 09/17/23 0952, 20 mg at 09/17/23 0952 magnesium oxide (MAG-OX) tablet 800 mg, 800 mg, oral, Once, Hannah Chun, LUIGI methocarbamoL (ROBAXIN) tablet 500 mg, 500 mg, oral, TID, Amy Lara NP, 500 mg at 09/17/232009 oxyCODONE (ROXICODONE) tablet 2.5 mg, 2.5 mg, oral, Q4H PRN, Marcos Salazar MD, 2.5 mg at 09/18/23 0334 potassium chloride 40 mEq/520 mL in sodium chloride 0.9% (premix) 40 mEq, 40 mEq, intravenous, Once, Naheed Cruz MD, Last Rate: 130 mL/hr at 09/18/23 0548, 40 mEq at 09/18/23 0548 senna-docusate (PERICOLACE) 8.6-50 mg per tablet 1 tablet, 1 tablet, oral, BID, Marcos Salazar MD, 1 tablet at 09/17/232009 sodium chloride 0.9% flush 0.5-20 mL, 0.5-20 mL, intra-catheter, Q8H [facility] Hor[facility] Guillermo, MD, 10 mL at 09/18/23 0553 sodium chloride 0.9% flush 0.5-20 mL, 0.5-20 mL, intra-catheter, PRN, Marcos Salazar MD Past Medical: No past medical history on file. Surgical History: History reviewed. No pertinent surgical history. Is&Os: I/O last 2 completed shifts: In: - Out: 300 [Urine:300] No intake/output data recorded. Physical Exam: 24hr Min/Max: Temp Min: 36.6 ??C (97.9 ??F) Max: 37.6 ??C (99.7 ??F) Pulse Min: 103 Max: 117 BP Min: 100/66 Max: 140/83 Resp Min: 16 Max: 18 SpO2 Min: 90 % Max: 94 % Physical Exam Constitutional: no acute distress, awake/conversant, appropriate HEENT: normocephalic/atraumatic, anicteric sclerae CV: palpable pulses bilaterally Resp: breathing unlabored on room air Abd: soft, non-tender, non-distended Ext: warm, moves all extremities , no cyanosis/edema - proximal upper extremity weakness - motor/sensory grossly intact Neuro: alert and oriented to person/place/date Labs/Imaging: Recent Labs Lab Units 09/18/2312409/16/23225809/16/23 0302 WBC K/cumm 8.4 10.4* 12.7* HEMOGLOBIN g/dL 9.3* 10.3* 11.5* HEMATOCRIT % 28.4* 32.3* 35.2* PLATELETS K/cumm 175 179 209 Recent Labs Lab Units 09/18/2312409/16/23225809/16/23 0302 SODIUM mmol/L 140 141 137 POTASSIUM PLASMA mmol/L 3.1* 3.8 3.7 CHLORIDE mmol/L 106 108 105 CO2 mmol/L 27 28 23 BUN SERUM mg/dL 9 12 20 CREATININE mg/dL 0.45* 0.54* 0.58* GLUCOSE mg/dL 97 130 101 CALCIUM mg/dL 7.8* 8.0* 8.4* Recent Labs Lab Units 09/16/23 0302 PROTIME (PT) sec 14.0* INR 1.23* XR Tibia Fibula Left 2 Views Result Date: 09/17/2023 1. Interval nailing and reduction of the comminuted, minimally displaced distal tibia and fibula fractures Electronically signed by: Khoa Tao MD, PHD I have independently reviewed and interpreted all relevant lab and radiographic data. Assessment/Plan Trauma Surgical Assessment and Plan Pulmonary nodule Assessment & Plan - CT C/A/P (09/15): Indeterminate right lower lobe pulmonary nodule with broad base along the pleura.Recommend comparison with prior imaging if available to document stability. If no prior imaging is available, recommend follow-up CT in 6-12 months. Discharge planning issues Assessment & Plan 09/16: Pending PT/OT for discharge planning Encounter for medication review Assessment & Plan - No past medical history, takes no medications at home Acute pain due to trauma Assessment & Plan - Tylenol 1000 mg q6h - Robaxin 500 mg TID - Oxycodone 5 mg q4h PRN Closed fracture of shaft of left tibia, unspecified fracture morphology, initial encounter Assessment & Plan #Left tib fib fracture - Orthopedic consult - s/p OR 09/15 IMN - NWB LLE - Maintain SLS - PT/OT - Pain control - Bone health referral at discharge FEN: These fluid and electrolyte abnormalities are being treated, evaluated or monitored: Hypokalemia--potassium replacement Lines/Drains/Tubes: see summary DVT Prophylaxis: Lovenox Diet: Adult Diet Regular Activity: Ambulate with assist GI Prophylaxis: Pepsid Code Status: Full Code All care plans discussed with rounding/operative attending: MD Naheed Jaramillo MD Cosigned by Blane Vidal MD at 09/18/2023 1:55 PM CDT Associated attestation - Blane Vidal MD - 09/18/2023 1:55 PM CDT I have personally seen and examined this patient on the date of service as documented on the resident note and have reviewed and confirmed the history, physical exam, laboratory,radiographic data, assessment and plan as documented by the resident. Blane Vidal MD Section of Acute and Critical Care Surgery Department of Surgery [facility] Office: [phone] * Alicia Mills OT - 09/18/2023 7:56 AM CDT Occupational Therapy Occupational Therapy Evaluation Note NOTE: This is a summary note of the moran components of the evaluation session. For full details, review chart for all flowsheets documented on by this occupational therapy clinician on this date. Vital signs are documented in vital signs flowsheet. For questions, please review the treatment team and contact the occupational therapist currently assigned to this patient. If an occupational therapist is not assigned to this patient, please call [phone]. 09/18/23 0756 General Chart Reviewed Yes Session Type Evaluation OT Received On 09/18/23 Safe Environment Arm band checked;Patient found in supine;Gait belt not utilized, see comment (no OOB mobility) Subjective Agreeable to Therapy Family/Caregiver Present No Occupational Therapy-Patient Goal Agreeable to POC Precautions Precautions Fall risk Weight Bearing Restrictions Yes LLE Weight Bearing NWB Braces/Orthoses Other (SLS) Precaution Comments Reviewed with pt Home Living Type of Home Condo/Townhome/[place] Home Layout One level Home Access Stairs to enter without rails Entrance Stairs-Rails None Entrance Stairs-Number of Steps 1 Bathroom Shower/Tub Tub/shower unit Bathroom Toilet Raised Bathroom Equipment Grab bars in shower/tub;Grab bars around toilet Home Mobility Equipment-Available 4-Wheeled walker;Single point cane Home Mobility Equipment-Currently Using 4-Wheeled walker Home ADL Equipment-Available None Home ADL Equipment-Currently Using None Prior Function Level of [place] Independent with ADLs;Independent functional transfers;Independent with ambulation;Independent with homemaking with ambulation Lives With Alone Receives Help From Spouse/Significant other ([employer]ARM[employer] from daughter) Driving Yes Mode of Transportation Car ADL Assistance Independent Instrumental ADL (IADL) Assistance Independent Vocational/Occupation Retired Type of Occupation PCT Fall within the last 6 months Yes Fall within the last 6 months comment 4 at home ADL ADLS (WDL) X Feeding Feeding: Where assessed Sitting (in bed) Feeding: Level of assistance Dependent Feeding: Assistance with Beverage management Response to foods trialed Pt unable to grasp cup and bring to mouth. Grooming Grooming: Where assessed Supine, bed Grooming: Level of assistance Dependent Grooming: Assistance with (all parts of task) LE Dressing LE Dressing: Where assessed Supine, bed LE Dressing: Level of assistance Dependent LE Dressing: Assistance with (all parts of task) Toileting Toileting: Where assessed Supine, bed Toileting: Level of assistance Dependent Toileting: Assistance with (all parts of task) Toilet Transfers Toilet Transfers Not tested Toilet Transfers Comments NT 2/2 safety concerns Pain Assessment Pain Assessment No/denies pain Cognition Arousal/Alertness Alert Attention Span Appears intact Memory Decreased short term memory (per SBT) Current communication Appears Intact Orientation Oriented X4 (person, place, time, situation) Following Commands Follows one step commands without difficulty Safety Judgment Decreased awareness of need for assistance Awareness of Errors Assistance required to identify errors made;Assistance required to correct errors made Insight Decreased awareness of deficits Problem Solving Assistance required to identify errors made;Assistance required to generate solutions;Assistance required to implement solutions Compliance/Behavior Easy to engage Perseveration Not present Cognitive Tests Cognitive Tests Yes Short Blessed Test What year is it now? 0 What month is it now? 0 Repeat this name and address after me Kirk Goodman [address] [place] [address] Without looking at the clock, tell me what time it is 0 Count aloud backwards from 20-1 0 Say the months of the year backwards in reverse order 4 Repeat the name and address I asked you to remember 8 Short Blessed Total Score 12 Short Blessed Comments Impaired cognition Balance Tests Balance Tests No (unable to complete 2/2 safety concerns) Balance Balance Yes Static Sitting Balance Static Sitting-Balance Support Feet supported;No upper extremity supported Static Sitting-Sitting Surface Bed Static Sitting-Level of Assistance Maximum assistance Static Sitting-Comment/# of Minutes assist for trunk support, posterior lean Bed Mobility Bed Mobility Yes Bed Mobility 1 Bed Mobility From 1 Supine Bed Mobility Type 1 To and from Bed Mobility to 1 Edge of bed Level of Assistance 1 Maximum Assist Bed Mobility Comments 1 assist to move BLE, hips to EOB, and trunk elevation/descent. BLE rigid when moving Bed Mobility 2 Bed Mobility From 2 Supine Bed Mobility Type 2 To and from Bed Mobility to 2 Rolling left;Rolling right Level of Assistance 2 Maximum Assist Bed Mobility Comments 2 X 2 assist Transfers Transfer No (NT 2/2 safety concerns) RUE Assessment RUE Assessment X RUE Comments PROM WFL, strength 1/5. Reported normal use of UE at PLOF LUE Assessment LUE Assessment X LUE Comments PROM WFL, strength 1/5. Reported normal use of UE at PLOF Daily Activity - 6 Clicks Putting on and taking off regular lower body clothing 1 Bathing 1 Toileting 1 Putting on and taking off upper body clothing 2 Personal Grooming 1 Eating Meals 1 Total Score (range 6-24) 7 Score Interpretation 20.13 Safe Environment End of Therapy Session Safe Environment End of Therapy Session Patient left supine in bed;Bed alarm in place and activated;RN notified;Call light within reach;Overbed table within reach Assessment Problem List Decreased upper extremity range of motion;Decreased upper extremity strength;Decreasedsafe judgment during ADL;Decreased cognition;Decreased endurance;Visual deficit;Decreased functional mobility;Decreased ADL independence;Decreased IADL independence;Decreased UE function;Decreased trunk control for functional activities Barriers to Discharge Current Mobility Status;Current ADL Status;Decreased caregiver support;Cognition;Decreased safety awareness Barrier Comments fall risk Plan Plan Plan of care initiated;If this is the last note, consider this the discharge summary Recommendation/Plan OT Recommendation (S) Residential Facility Patient at high risk for Falls;Readmission;Injury due to decreased ability to care for self;Injury due to reduced functional status;Injury due to impaired cognition;Injury due to balance deficits;Injury at home as patient has not returned to prior level of function;Developing impaired skin integrity;Prolonged dependence for self care tasks;Developing secondary complications: poor health management;Difficulty maintaining orthopedic restrictions Recommend SNF due to Risk of injury at home;Unable to safely care for self in the home;Skilled therapy needed to address care for self in the home;Skilled therapy needed to address functional deficits;Skilled therapy needed for patient to return to prior level of independence OT Frequency during current admission 5-7x/wk Treatment/Interventions during current admission ADL/IADL retraining;Balance Training;Bed mobility;Cognitive retraining;Compensatory technique education;Endurance training;Functional activity;Functional mobility training;Functional transfer training;Parent/caregiver training and education;Strengthening;Therapeutic activity;Therapeutic exercise OT - Next Appointment 09/21/23 OT Evaluation Complete Yes Time Calculation Start Time 0756 Stop Time 0834 Time Calculation (min) 38 min Multi-Disciplinary Problems (from Occupational Therapy) Active Problems Problem: Dressings Lower Extremities Start Date: 09/18/23 Problem: Dressing Upper Extremities Start Date: 09/18/23 Goal Start Date Expected End Date End Date STG - Patient will dress upper body 09/18/23 09/25/23 -- Goal Details: With Min A Problem: Grooming Start Date: 09/18/23 Goal Start Date Expected End Date End Date STG - Patient will complete grooming 09/18/23 09/25/23 -- Goal Details: Seated EOB with Min A Problem: Transfers Start Date: 09/18/23 Goal Start Date Expected End Date End Date STG - Patient will perform toilet transfer 09/18/23 09/25/23 -- Goal Details: With Mod A Problem: OT Misc Start Date: 09/18/23 Goal Start Date Expected End Date End Date OT LTG - Misc 1 09/18/23 10/02/23 -- Goal Details: Pt. Will perform all ADLs with Mod (I) using AE/adaptive device PRN. * Amy Lara NP - 09/17/2023 2:32 PM CDT Images from the original note were not included. Trauma C Service - Continuation of Care Note Summary of Plan from Rounds: Needs post op PT/OT evaluations for discharge planning Disposition update from DCAM meetings: attended in person, requested PCP clinic referral for patient Medication adjustments: Added Robaxin to pain regimen Home medication review performed Labs and test results reviewed: WBC 10.4, Hgb 10.3. Mag 1.5, repletion given Counseling/educating patient/family/caregiver pertaining to plan of care, including working with PT/OT for dispo planning, and adjusting pain regimen All care plans discussed with rounding/operative attending: Blane Vidal MD My total encounter time on 09/17/2023 was 30 minutes which was spent in the management of traumatic injuries performing the activities documented in the note. This includes time spent prior to the visit and after the visit in direct care of the patient. This time does not include time spent in any separately reportable services. Amy Lara NP Section of Acute and Critical Care Surgery * Cuate Tellez PT - 09/17/2023 1:47 PM CDT Physical Therapy Physical Therapy Evaluation Note NOTE: This is a summary note of the moran components of the evaluation session. For full details, review chart for all flowsheets documented on by this physical therapy clinician on this date. Vital signs are documented in the vital signs flowsheet. For questions, please review the treatment team and contact the PT or TURPENTINE FARMER currently assigned to this patient. If a physical therapy clinician is not assigned to this patient, please call [phone]. Multi-Disciplinary Problems (from Physical Therapy) Active Problems Problem: Transfers Start Date: 09/17/23 Goal Start Date Expected End Date End Date STG - Transfer from bed to chair 09/17/23 10/01/23 -- Goal Details: Mod A Goal Start Date Expected End Date End Date STG - Patient to transfer to and from sit to supine 09/17/23 10/01/23 -- Goal Details: Min A Goal Start Date Expected End Date End Date STG - Patient will transfer sit to and from stand 09/17/23 10/01/23 -- Goal Details: Mod A 09/17/23 1347 General Chart Reviewed Yes Session Type Evaluation PT Received On 09/17/23 Safe Environment Arm band checked;Patient found in supine;Gait belt not utilized, see comment (no OOB mobility) Subjective Agreeable to Therapy Family/Caregiver Present No Physical Therapy-Patient Goal to return home Precautions Precautions Fall risk Weight Bearing Restrictions Yes LLE Weight Bearing NWB Precaution Handout Issued No Precaution Comments reviewed precautions Home Living Type of Home [facility] Home Layout One level Home Access Stairs to enter without rails Entrance Stairs-Rails None Entrance Stairs-Number of Steps 2 Home Mobility Equipment-Available 4-Wheeled walker Home Mobility Equipment-Currently Using 4-Wheeled walker Additional Comments Use of 4WW at baseline Prior Function Level of [place] Independent functional transfers;Independent with ambulation Lives With Alone Receives Help From Other (Comment) (limited assist) Fall within the last 6 months Yes Fall within the last 6 months comment 1 fall leading to current admission Activity Tolerance Activity Tolerance Comments nancy: not assessed Pain Assessment Pain Assessment 0-10 Pain Score 7 Patient's Stated Pain Goal No pain Pain Type Surgical pain Pain Interventions RN Notified (RN Mireya) Cognition Arousal/Alertness Alert;Appropriate responses to stimuli Orientation Oriented X4 (person, place, time, situation) Following Commands Follows all commands and directions without difficulty Sensation Numbness/Tingling No (BLE) Balance Tests Balance Tests No (unable to perform due to limited mobility at this time) Balance Balance No Bed Mobility Bed Mobility Yes Bed Mobility 1 Bed Mobility From 1 Supine Bed Mobility Type 1 To and from Bed Mobility to 1 Rolling right Level of Assistance 1 Dependent Bed Mobility Comments 1 assist for all components Bed Mobility 2 Bed Mobility Comments 2 attempt to bring BLE towards EOB, but patient reporting significant BLE spasms Transfers Transfer No Ambulation Ambulation No Stairs Stairs No RLE Assessment RLE Comments limited assessment due to spasms with limited mobility, pt able to demonstrate ankle dorsiflexion and plantarflexion and quadriceps contraction LLE Assessment LLE Comments unable to move actively against gravity or gravity assisted; formal MMT deferred due to procedure Other Comments Other PT Comments Limited mobility assessment due to patient reporting BLE spasms with limited BLE and BUE movement. Patient reports significant pain with BLE spasms. Unable to get EOB due to pain with spasms. Patient demonstrates significant BUE weakness at this time, reporting onset since procedure. Basic Mobility - 6 Click How much difficulty does the patient have: Turning over in bed 1 How much difficulty does the patient currently have: Sitting down and standing up from a chair witharms? 1 How much difficulty does the patient have: Moving from lying on back to sitting on the side of the bed? 1 How much difficulty does the patient have: Moving to and from a bed to a chair including wheelchair? 1 How much help does the patient currently need: Walk in hospital room? 1 How much help from another person does the patient currently need: Climbing 3-5 steps with a railing? 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 IMN Left distal tib/fib fx results in above listed activity deficits and impairments which prevent full participation in home and community mobility Barriers to Discharge Current Mobility Status;Decreased caregiver support;Home environment challenged Plan Plan Plan of care initiated;If this is the last note, consider this the discharge summary Recommendation/Plan PT Recommendation/Plan Residential Facility Patient at high risk for Readmission;Falls;Injury due to decreased ability to care for self;Injury due to reduced functional status;Injury due to balance deficits;Injury at home as patient has not returned to prior level of function;Prolonged dependence for self care tasks Recommend SNF due to Risk of injury at home;Unable to safely care for self in the home;Skilled therapy needed to address care for self in the home;Skilled therapy needed to address functional deficits;Skilled therapy needed for patient to return to prior level of independence PT Recommendation/Plan Comments Pending progress PT Frequency during current admission 5-7x/wk Treatment/Interventions during current admission Balance Training;Bed mobility;Endurance training;Functional activity;Functional transfer training;Transfer training;Therapeutic exercise;Therapeutic ac tivity;Strengthening PT - Next Appointment 09/18/23 PT Evaluation Complete Yes Time Calculation Start Time 1347 Stop Time 1418 Time Calculation (min) 31 min * Chon Miner MD - 09/17/2023 5:39 AM CDT Orthopaedic Trauma Service Daily Progress Note Admit Date: 09/16/2023 Hospital Day: 1 [facility] Dx: L distal tib/fib fx Injury Mechanism: SLMF OI: none PMHx: none Procedure(s): 09/16/23 ORIF + IMN L distal tib/fib fx Interval History: POD1. AFVSS. Hgb 10.3. WBC 10.4. Pain controlled. Dressings c/d/I. NVI LLE. Plan PT/OT for OOB mobilization, NWB LLE in SLS. Edited by: Chon Miner MD at 09/17/2023 0539 Objective Vitals: 24hr Min/Max: Temp Min: 36 ??C (96.8 ??F) Max: 37 ??C (98.6 ??F) Pulse Min: 72 Max: 112 BP Min: 87/46 Max: 137/79 Resp Min: 8 Max: 18 SpO2 Min: 90 % Max: 100 % I/O last 2 completed shifts: In: 1999 [I.V.:1999] Out: 365 [Urine:215; Blood:150] I/O this shift: In: - Out: 225 [Urine:225] Physical Exam: Gen: No acute distress Alert and oriented: x3 Extremity Left Lower extremity Dressing/wound: dressing clean/dry/intact Immobilization: splint intact, tolerating well Sensation: regional block still in effect Motor: regional block still in effect Perfusion: toes WWP Wound Vac(s): n/a Hemovac(s): n/a Tertiary Exam Findings: negative, there are no other apparent painful joints or extremities on exam Lab/Diagnostic Review: Recent Labs Lab Units 09/16/23 2259 09/16/23 0302 SODIUM mmol/L 141 137 POTASSIUM PLASMA mmol/L 3.8 3.7 CHLORIDE mmol/L 108 105 CO2 mmol/L 28 23 ANIONGAP mmol/L 5 9 GLUCOSE mg/dL 130 101 BUN SERUM mg/dL 12 20 CREATININE mg/dL 0.54* 0.58* CALCIUM mg/dL 8.0* 8.4* ALBUMIN g/dL -- 3.1* ALK PHOS Units/L -- 78 ALT Units/L -- 33 AST Units/L -- 84* BILIRUBIN TOTAL mg/dL -- 0.8 WBC K/cumm 10.4* 12.7* HEMOGLOBIN g/dL 10.3* 11.5* HEMATOCRIT % 32.3* 35.2* PLATELETS K/cumm 179 209 NEUTROS PCT % -- 78.6 LYMPHS PCT % -- 7.9 MONOS PCT % -- 12.6 EOS PCT % -- 0.1 APTT sec -- 27* INR -- 1.23* Micro: No results found for: MICROBIOLOGY Assessment/Plan: 78 y.o. female p/w the above injuries. Patient is now status post above WB Status: Non-weight bearing left lower extremity Immobilization: SLS Activity: Ambulate with assist Therapy: PT/OT for OOB/mobilization as tolerated. Precautions: None DVT ppx: Unilateral lower extremity injury: Lovenox 40mg QHS postop while in the hospital, on discharge transition to Aspirin 81mg BID x 14 days to take with food OR continue Lovenox 40mg QHS if patient will return for further orthopaedic surgery Drain: n/a Antibiotics: Periop: Ancef 1-2gm IV Q8hrs for 24 hours postoperative Cultures: None Wound Care: Maintain surgical dressing until follow-up Sutures/Pearson: Will be removed 3 weeks after surgical date. Please include on discharge orders ifpatient is going to a facility. If the patient is still in the hospital at that time they will be removed by the orthopedic team. Guerrier: n/a Diet: Regular Additional Needs: Bone health referral at discharge Ortho Trauma is the primary team, and will manage this patient's hospital course. Dispo: Pending progress, postoperative recovery, and progress with therapy Follow-Up: We have not yet scheduled this patient for an appointment, but we will contact the patient with the details including the timing and location of their appointment once it is scheduled. Chon Miner MD Orthopaedic Surgery PGY2 Please call with questions during daytime. See below for overnight issues. If you know the resident's name on the appropriate orthopaedic surgery team, please use [email or web address] to page resident directly. If questions arise and the appropriate resident can't be reached or you are calling overnight, please contact [phone] ([place]- 7:30 PM - 6:30 AM - Floor Resident) or [phone] (24 hours/day - Consult Resident) Cosigned by Diogo Lao MD at 09/18/2023 10:14 AM CDT * Otto Dotson MD - 09/16/2023 6:39 PM CDT Ortho Trauma Post-Op Note Diagnosis: L distal tibia and fibula fractures Surgical Procedure: Procedure(s) (LRB): INTRAMEDULLARY NAIL - TIBIAL and FIBULA (Left) Subjective Aidee Domínguez seen post-operatively in PACU. Patient is awake and alert to verbal stimuli. Pain is controlled. The patient denies chest pain, denies nausea/emesis, and denies shortness of breath. Objective Vitals: Most Recent: Vitals: 09/16/23 1730 BP: 106/50 Pulse: 80 Resp: 10 Temp: SpO2: 100% Physical Exam: Left Lower extremity: Dressing/Splint: dressing clean/dry/intact Sensation: intact to light touch in the superficial peroneal, deep peroneal, and tibial distributions Motor: wiggles all toes Perfusion: toes WWP Wound Vac(s): holding suction, no apparent leaks Hemovac(s): holding suction, no apparent leaks Guerrier: n/a Assessment/Plan: 78 y.o. female p/w the above injuries. Patient is now status post above WB Status: Weight bearing as tolerated left lower extremity Immobilization: None Activity: Ambulate with assist Therapy: PT/OT for OOB/mobilization as tolerated. Precautions: None DVT ppx: Unilateral lower extremity injury: Lovenox 40mg QHS postop while in the hospital, on discharge transition to Aspirin 81mg BID x 14 days to take with food OR continue Lovenox 40mg QHS if patient will return for further orthopaedic surgery Drain: n/a Antibiotics: Periop: Ancef 1-2gm IV Q8hrs for 24 hours postoperative Cultures: None Wound Care: Maintain surgical dressing until follow-up Sutures/[place]: Will be removed 3 weeks after surgical date. Please include on discharge orders ifpatient is going to a facility. If the patient is still in the hospital at that time they will be removed by the orthopedic team. Guerrier: n/a Diet: Regular Additional Needs: Bone health referral at discharge Ortho Trauma is the primary team, and will manage this patient's hospital course. Dispo: Pending progress, postoperative recovery, and progress with therapy Follow-Up: We have not yet scheduled this patient for an appointment, but we will contact the patient with the details including the timing and location of their appointment once it is scheduled. Otto Dotson MD Department of Orthopaedic Surgery, PGY-3 [facility] [place]/[facility] Please use [email or web address] to find phone number. Cosigned by Hammad Taylor MD at 09/16/2023 6:41 PM CDT documented in this encounter H&P Notes * Gwendolyn Bee MD - 09/20/2023 1:26 PM CDT Images from the original note were not included. Critical Care Medicine Consult / History and Physical Team: Red AM Reason for Consult: postoperative monitoring Requesting Provider: Dr. Rodriguez Subjective Patient is a 78 y.o. female with no known past medical history chief complaint of ground level fallwith L distal tib/fib fractures s/p IMN, found to have cervical myelopathy and is now Day of Surgery from [facility] C2-C7, C3-6 laminectomy, C4-5 foraminotomies, a/f postoperative monitoring with q1h neurochecks. HPI: Patient presented 09/15 to ED after ground level fall, found to have L distal tib/fib fracture s/p IMN repair with ortho on 09/15. Found to have possibly worsening upper extremity weakness, MRI findings of spinal cord deformity, and ultimately went to OR with ortho spine for spinal decompression. In ORpatient had stable neuromonitoring except for waxing and waning C5. On arrival to 4400 patient is drowsy but responsive to verbal stimuli, reports pain at operative site. Hypertensive to 180-190s systolic No past medical history on file. History reviewed. No pertinent surgical history. No Known Allergies Social History Tobacco Use Smoking status: Former Current packs/day: 0.00 Types: Cigarettes Quit date: 1963 Years since quittin.4 Smokeless tobacco: None Substance and Sexual Activity Drug use: None Sexual activity: None Alcohol Use: Not At Risk (09/16/2023) AUDIT-C Frequency of Alcohol Consumption: Monthly or less Average Number of Drinks: 1 or 2 Frequency of Binge Drinking: Never No family history on file. HOME MEDICATIONS : Not on File Medications: No medications prior to admission. Scheduled Medications Medication Dose Route Frequency acetaminophen (TYLENOL) tablet 1,000 mg 1,000 mg oral Q6H [Held by Provider] enoxaparin (LOVENOX) syringe 30 mg 30 mg subcutaneous Q12H [facility] famotidine (PEPCID) tablet 20 mg 20 mg oral Daily insulin lispro (HumaLOG, ADMELOG) 100 unit/mL injection 1-3 Units 1-3 Units subcutaneous Q4H [facility] lidocaine (ASPERCREME) 4 % patch 2 patch 2 patch transdermal Q24H magnesium oxide (MAG-OX) tablet 800 mg 800 mg oral Daily methocarbamoL (ROBAXIN) tablet 750 mg 750 mg oral QID polyethylene glycol (MIRALAX) packet 17 g 17 g oral Daily senna-docusate (PERICOLACE) 8.6-50 mg per tablet 1 tablet 1 tablet oral BID sodium chloride 0.9% flush 0.5-20 mL 0.5-20 mL intra-catheter Q8H [facility] traZODone (DESYREL) tablet 50 mg 50 mg oral Nightly Continuous Medications: Current Facility-Administered Medications Medication Dose Route Frequency Last Admin dextrose 5% and Lactated Ringer's 25 mL/hr intravenous Continuous 25 mL/hr at 09/20/23 1445 PRN Medications: sodium chloride 0.9%, 30 mL dextrose, 15 g OR dextrose, 250 mL glucagon, 1 mg HYDROmorphone, 0.5 mg naloxone, 0.04-0.4 mg ondansetron, 4 mg sodium chloride 0.9%, 0.5-20 mL Review of Systems: As per HPI Objective Vitals: Arrival Vitals Temp 09/16/23 0230 37.3 ??C (99.1 ??F) Pulse 09/16/23 0230 97 Resp 09/16/23 0230 17 BP 09/16/23 0230 123/64 SpO2 09/16/23 0230 94 % Temp src 09/16/23 0230 Oral Heart Rate Source 09/16/23 1115 Monitor Patient Position 09/16/23 1550 Lying BP Location 09/16/23 2200 Left arm FiO2 (%) -- 24hr Min/Max: Temp Min: 36.4 ??C (97.5 ??F) Max: 37.1 ??C (98.8 ??F) Pulse Min: 86 Max: 123 BP Min: 120/62 Max: 147/65 Resp Min: 14 Max: 20 SpO2 Min: 90 % Max: 100 % Current Vitals: BP 147/65 Pulse 100 Temp 36.5 ??C (97.7 ??F) (Bladder) Resp 19 Ht 165.1 cm (5' 5 ) Wt 72.6 kg (160 lb) SpO2 100% BMI 26.63 kg/m?? Intake/Output: I/O last 2 completed shifts: In: - Out: 1950 [Urine:1950] I/O this shift: In: 3250 [I.V.:3000; IV Piggyback:250] Out: 825 [Urine:595; Drains:30; Blood:200] LDA: Arterial Line 09/20/23 Left Radial (Active) Placement Date/Time: 09/20/23 (c) 0992 Size: 20 G Orientation: Left Location: Radial Securement Method: Transparent dressing Number of days: 0 ETT ETT - single 7 mm (Active) Placement Date/Time: 09/20/23 (c) 0953 Mask Ventilation: Not attempted Technique: Video laryngoscopy ETT Type: ETT - single Single Lumen Tube Size: 7 mm Cuffed: Yes Laryngoscope: Gwen Blade Size: 3 Location: Oral Airway Insertion Attemp... Number of days: 0 Urethral Catheter Double-lumen;Temperature probe;Straight-tip (Active) Placement Date/Time: 09/20/23 0950 Inserted by: Mally HENRY Catheter Type: Double-lumen;Temperature probe;Straight-tip Tube Size (Fr.): 16 Fr Catheter Balloon Size: 10 mL Urine Returned: Yes Number of days: 0 Closed/Suction/Open Drain 1 Right Neck Bulb 15 Fr. (Active) Placement Date/Time: 09/20/23 1310 Tube Number: 1 Orientation: Right Location: Neck Drain Tube Type: Bulb Size (Fr.): 15 Fr. Drain [place] Size (mL): 100 mL Number of days: 0 Vent settings for last 24 hours: Hemodynamic parameters for last 24 hours: Physical Exam: Physical Exam Constitutional: Comments: Drowsy but arousable, in mild distress HENT: Head: Normocephalic and atraumatic. Right Ear: External ear normal. Left Ear: External ear normal. Nose: Nose normal. Mouth/Throat: Mouth: Mucous membranes are moist. Eyes: Conjunctiva/sclera: Conjunctivae normal. Cardiovascular: Rate and Rhythm: Normal rate and regular rhythm. Pulses: Normal pulses. Heart sounds: Normal heart sounds. Pulmonary: Effort: Pulmonary effort is normal. Breath sounds: Normal breath sounds. Comments: Low vibratory upper airway noises in upper lung davis Abdominal: General: Abdomen is flat. Bowel sounds are normal. There is no distension. Palpations: Abdomen is soft. Tenderness: There is no abdominal tenderness. Musculoskeletal: Comments: LLE operative site wrapped RLE posterior calf with wound covered with polymem pad Skin: General: Skin is warm and dry. Capillary Refill: Capillary refill takes less than 2 seconds. Neurological: Mental Status: She is disoriented. Comments: Oriented to self, drowsy but arousable. Moves all extremeties spontaneously and to command. Not able to participate in full strength exam. Patient at times states I want to , when further prompted, denies desire to harm self or plansto harm self, appears to not remember what she said Lab/Radiology/Diagnostic Review: Laboratory review: Lab results in the last 12 hours: Recent Results (from the past 12 hour(s)) POC Blood Gas and Chemistries, Arterial - Collection Time: 09/20/23 9:52 AM Result Value Ref Range pH, Art POC 7.53 (H) 7.35 - 7.45 pCO2, Art POC 41 35 - 45 mmHg pO2, Art POC 401 (H) 83 - 108 mmHg Na, POC 137 135 - 145 mmol/L K POC 3.6 3.3 - 4.9 mmol/L Cl, POC 108 97 - 110 mmol/L Ionized Ca, POC 4.64 4.50 - 5.10 mg/dL Glucose, POC 137 70 - 199 mg/dL Lactate, POC 1.2 0.7 - 2.2 mmol/L SO2 (cee) arterial 100 (H) 90 - 95 % Base excess, POC 10.6 mmol/L HCO3, Art POC 34 (H) 20 - 30 mmol/L Hct, POC 28.0 (L) 36.3 - 45.3 % O2 Sat, Art POC (Calc) 100 % Total Hb, POC 9.4 (L) 11.9 - 15.5 g/dL Plan: Neuro: # Acute pain - Tylenol 1000 mg q6h lila - Robaxin 750 QID lila - PRN dilaudid > dPCA when awake from OR #upper extremity weakness #cervical myelopathy # posterior cervical fusion from C2-C7 # C3, C4, C5 and C6 laminectomies # C4-5 bilateral foraminotomies - mixed reports in chart, appears to be acute on chronic upper extremity weakness noted during admission 09/18 - No pain or resistance with passive movement. 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 Cord edema noted at the C3-C4 level - ortho spine c/s: s/p PSF 09/19 - PT/OT consult #at risk for delirium - delirium precautions/sleep hygiene - trazodone 50mg nightly #safety evaluation - on arrival to floor patient waking up from anesthesia, disoriented - at times stating I want to , please let me - on further prompting, patient denies thoughts of wanting to hurt herself or plans to hurt self, appears to not remember what she was saying - for further evaluation when more awake CV: - MAP > 80-85 through 48h postop - unsupported Pulmonary: - SpO2 > 92% #pulmonary nodule - CT C/A/P (09/15): Indeterminate right lower lobe pulmonary nodule with broad base along the pleura.Recommend comparison with prior imaging if available to document stability. If no prior imaging is available, recommend follow-up CT in 6-12 months. GI: Diet: regular PUD PPx: not indicated Bowel regimen: miralax, senna Endo: - ICU LD SSI Renal Fluid balance goal - permissive IVF: D5LR@25, dc when taking appropriate PO Guerrier to gravity Electrolyte abnormality Replace PRN Heme: - Hgb > 7 DVT PPX: SCDs, hold chemoppx until POD2 per ortho spine ID: - s/p vanc and ancef in OR MSK: #Left tib fib fracture - Orthopedic consult - s/p OR 09/15 IMN - NWB LLE - Maintain SLS - PT/OT - Pain control - Bone health referral at discharge #cervical myelopathy s/p PSF - as above #likely osteoporosis - intraoperative finding during PSF - bone health referral as above on discharge ICU standards of care: Restraints: None Physical therapy/Activity: as tolerated, NWB LLE Access: PIVs, L radial art line Other: Dispo: PT/OT evaluation for placement Goals of care: Full code Red AM Assessment and plan has been reviewed with attending, Dr. Sam Bee MD PhD Obstetrics & Gynecology - PGY 1 09/20/2023 3:12 PM Cosigned by Sam Jean MD PhD at 09/20/2023 5:24 PM CDT documented in this encounter Procedure Notes * Mally Roberts MD - 09/23/2023 6:20 PM CDTAssociated Order(s): Critical Care Post-Procedure Diagnose(s): Other closed fracture of distal end of left tibia, initial encounter Critical Care Performed by: Mally Roberts MD Authorized by: Mally Roberts MD CRITICAL CARE: Team: SICU RED Shift: PM Level of Billing: Critical Care My time spent with this patient was 30 minutes: Critical Provider Statement: I have seen and examined the patient on this day of service. I have reviewed and confirmed the history, physical exam, laboratory and radiologic data as documented in thesigned ICU note. I have reviewed and discussed my treatment plan with the ICU team and other medical/senior microsoft consultant staff, making frequent assessments and decisions regarding this patient's complex medical care. Critical Care time was exclusive of time spent performing separately billed procedures, treating other patients, and teaching. This time was in addition to and separate from critical care provided by other practitioners in my group on this day of service. Critical Care was necessary to treat or prevent imminent or life-threatening deterioration of the following conditions: Acute pain/acute postoperative pain Severe long-bone fracture and Spinal cord injury/spine fracture This time was spent by me doing the following: Acute pain control Advanced wound care and Spinal immobilization * Mally Roberts MD - 09/22/2023 7:39 PM CDTAssociated Order(s): Critical Care Post-Procedure Diagnose(s): Other closed fracture of distal end of left tibia, initial encounter Critical Care Performed by: Mally Roberts MD Authorized by: Mally Roberts MD CRITICAL CARE: Team: SICU RED Shift: PM Level of Billing: Critical Care My time spent with this patient was 30 minutes: Critical Provider Statement: I have seen and examined the patient on this day of service. I have reviewed and confirmed the history, physical exam, laboratory and radiologic data as documented in thesigned ICU note. I have reviewed and discussed my treatment plan with the ICU team and other medical/senior microsoft consultant staff, making frequent assessments and decisions regarding this patient's complex medical care. Critical Care time was exclusive of time spent performing separately billed procedures, treating other patients, and teaching. This time was in addition to and separate from critical care provided by other practitioners in my group on this day of service. Critical Care was necessary to treat or prevent imminent or life-threatening deterioration of the following conditions: Acute pain/acute postoperative pain Spinal cord injury/spine fracture and Severe long-bone fracture This time was spent by me doing the following: Serial bedside patient exams and Serial laboratory checks Acute pain control Spinal immobilization and Acute fracture care I spent time reviewing and interpreting data from bedside monitors, laboratory results, and imaging * Mally Roberts MD - 09/21/2023 8:02 PM CDTAssociated Order(s): Critical Care Post-Procedure Diagnose(s): Other closed fracture of distal end of left tibia, initial encounter Critical Care Performed by: Mally Roberts MD Authorized by: Mally Roberts MD CRITICAL CARE: Team: SICU RED Shift: PM Level of Billing: Critical Care My time spent with this patient was 30 minutes: Critical Provider Statement: I have seen and examined the patient on this day of service. I have reviewed and confirmed the history, physical exam, laboratory and radiologic data as documented in thesigned ICU note. I have reviewed and discussed my treatment plan with the ICU team and other medical/senior microsoft consultant staff, making frequent assessments and decisions regarding this patient's complex medical care. Critical Care time was exclusive of time spent performing separately billed procedures, treating other patients, and teaching. This time was in addition to and separate from critical care provided by other practitioners in my group on this day of service. Critical Care was necessary to treat or prevent imminent or life-threatening deterioration of the following conditions: Acute pain/acute postoperative pain Spinal cord injury/spine fracture This time was spent by me doing the following: Serial bedside patient exams and Serial laboratory checks Acute pain control Spinal immobilization and Acute fracture care I spent time reviewing and interpreting data from bedside monitors, laboratory results, and imaging * Noel Armijo MD - 09/21/2023 6:43 AM CDTAssociated Order(s): Critical Care Post-Procedure Diagnose(s): Cervical spondylosis with myelopathy; Other closed fracture of distal end of left tibia, initial encounter Critical Care Performed by: Noel Armijo MD Authorized by: Noel Armijo MD CRITICAL CARE: Team: SICU RED Shift: AM Level of Billing: Critical Care My time spent with this patient was 30 minutes: Critical Provider Statement: I have seen and examined the patient on this day of service. I have reviewed and confirmed the history, physical exam, laboratory and radiologic data as documented in thesigned ICU note. I have reviewed and discussed my treatment plan with the ICU team and other medical/senior microsoft consultant staff, making frequent assessments and decisions regarding this patient's complex medical care. Critical Care time was exclusive of time spent performing separately billed procedures, treating other patients, and teaching. This time was in addition to and separate from critical care provided by other practitioners in my group on this day of service. Critical Care was necessary to treat or prevent imminent or life-threatening deterioration of the following conditions: Acute pain/acute postoperative pain Post cervical fusion Severe long-bone fracture This time was spent by me doing the following: Serial bedside patient exams Acute pain control and Frequent neurologic exams Initiation/active titration of vasoactive medications Active and frequent reassessment of respiratory status and oxygen requirements Acute fracture care I spent time reviewing and interpreting data from bedside monitors, laboratory results, and imaging, I spent time discussing the management of this critically ill patient with consultants and the medical staff and I spent time documenting in the medical record * Mally Roberts MD - 09/21/2023 2:13 AM CDTAssociated Order(s): Critical Care Post-Procedure Diagnose(s): Other closed fracture of distal end of left tibia, initial encounter Critical Care Performed by: Mally Roberts MD Authorized by: Mally Roberts MD CRITICAL CARE: Team: SICU RED Shift: PM Level of Billing: Critical Care My time spent with this patient was 30 minutes: Critical Provider Statement: I have seen and examined the patient on this day of service. I have reviewed and confirmed the history, physical exam, laboratory and radiologic data as documented in thesigned ICU note. I have reviewed and discussed my treatment plan with the ICU team and other medical/senior microsoft consultant staff, making frequent assessments and decisions regarding this patient's complex medical care. Critical Care time was exclusive of time spent performing separately billed procedures, treating other patients, and teaching. This time was in addition to and separate from critical care provided by other practitioners in my group on this day of service. Critical Care was necessary to treat or prevent imminent or life-threatening deterioration of the following conditions: Acute pain/acute postoperative pain Spinal cord injury/spine fracture and Limb threatening condition This time was spent by me doing the following: Serial bedside patient exams and Serial laboratory checks Acute pain control and Frequent neurologic exams Initiation/active titration of vasoactive medications Active and frequent monitoring of intake/output and volumen status Advanced wound care, Acute fracture care and Spinal immobilization I spent time reviewing and interpreting data from bedside monitors, laboratory results, and imaging * Le Hurst RN - 09/18/2023 6:04 PM CDT Images from the original note were not included. Vascular Access Nurse: Procedure Note Summary of treatment provided to patient today is as follows : . Bedside Procedure Time out/Checklist (Last 4 Hours) Pre-Op Checklist Row Name 09/18/23 1550 Patient Preparation Temp 37.1 ??C (98.8 ??F) -MY User Moran (r) = Recorded By, (t) = Taken By, (c) = Cosigned By Initials Name MY Valeria Jewell Vascular Access Documentation (Last 4 Hours) [facility] Additional Procedures Row Name 09/18/23 1803 Procedures Time in 1800 -JH Time out 1805 - Time Calculation (min) 5 min - Vascular Access Procedures Canceled on arrival -JH Canceled on arrival Procedure canceled;Other (comment) PIV started by floor - Peripheral IV 09/16/23 20 G Anterior;Left Forearm IV Properties Placement Date: 09/16/23 -MH Placement Time: 319 -MH Type: Angiocath -MH Size (Gauge): 20 G -MH Location Orientation: Anterior;Left -MH Location: Forearm -MH Peripheral IV 09/16/23 20 G Anterior;Right Hand IV Properties Placement Date: 09/16/23 -AO Placement Time: 758 -AO Size (Gauge): 20 G -AO LocationOrientation: Anterior;Right -AO Location: Hand -AO Peripheral IV 09/18/23 22 G Left;Posterior Hand IV Properties Placement Date: 09/18/23 -LH Placement Time: 1754 -LH Size (Gauge): 22 G -LH LocationOrientation: Left;Posterior -LH Location: Hand -LH Technique: Transillumination -LH Inserted by: Priscila SCOTT - User Moran (r) = Recorded By, (t) = Taken By, (c) = Cosigned By Initials Name AO Adriana Handley RN Teresa Lee RN Mireya Mcdaniel RN Le Hurst RN Plan: Follow up: Le Hurts RN * Buffy Caicedo, CALVIN - 09/18/2023 8:49 AM CDTAssociated Order(s): CORN HUSKER EVALUATE AND TREAT Speech-Language Pathology: Clinical Bedside Swallow [facility]/PM 78 y.o. 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 She had a mechanical fall 2 days ago while she was ambulating with her walker but her walker slipped on the wet floor causing her to fall onto her left leg. She did not hit her head or lose consciousness but was on the ground for 24 hours until her daughter found her the next day and called EMS. She was seen outside hospital where she had imaging of her head and cervical spine as well as x-rays of her left lower extremity which showed the above fracture. Was transferred for further evaluation. 09/15- INTRAMEDULLARY NAIL - TIBIAL and FIBULA (Left) No prior ST notes. Respiratory/Intubation Status: intubated 09/15, now RA Chest CT 09/15- No pleural effusion or pneumothorax. Upper lobe predominant emphysematous changes arenoted. There is mild dependent atelectasis with components of subtle peripheral reticulation. There are mild tree-in-bud nodules in the anterior aspect of the left upper lobe, which may represent mild bronchiolitis. There is a nodule in the right lower lobe with broad base along the pleural Neuro CT 09/15- No acute intracranial process. No acute fracture of the cervical spine. Precautions: fall Current Diet Order:regular solids/thin liquids Baseline Diet: regular solids/thin liquids per pt's report General Information Aidee Domínguez 09/18/23 General Observations: Swallow evaluation completed on 6499. Pt awake, in bed upon CORN HUSKER arrival in room. PCT present and assisting with breakfast. No family/visitors present. Pt A&Ox4, pleasant andcooperative. Pain Score: 0 If pain >4, was RN notified? N/A Patient Stated Goal/Comments: Pt did not state goals related to skilled ST this date. Clinical Impression & Professional Recommendations Diet Solids Recommendation: Regular Diet Liquids Recommendations: Thin/regular Recommended Form of Medications: As tolerated Postural Recommendations: Upright Assistance with feeding/swallowing: One to one assist with meals Specialty Instructions: thorough oral care 2-3x/day including teeth brushing (gums and tongue) withsuction while upright at 90 and with 100% assistance to improve the oral biome and reduce the risk of aspiration related complications (i.e., PNA) Dysphagia Diagnosis: No suspected dysphagia, oral-pharyngeal function appears WFL Overall Clinical Impression/Additional Information: Oral mechanism exam WFL. Exam notable for edentulous status. PCT reported pt's dentures are at home. Pt reports no difficulty with mastication without dentures. CORN HUSKER assist with feeding pt breakfast. Pt observed with thin liquids via straw and regular solid consistencies from breakfast tray. Pt with slower but functional mastication of more soliditems. Good oral clearance across trials. No s/s of aspiration. Swallow appears to be WFL. Assessment Details & Results Consistencies Administered: Thin liquids, Solids MASA: Kat Assessment of Swallowing Ability (MASA) Alertness: Alert Cooperation: Cooperative Auditory Comprehension: No abnormality detected Respiration: Chest clear Respiratory Rate (for swallow): Able to control breath rate for swallow Aphasia: No abnormality detected Apraxia: No abnormality detected Dysarthria: No abnormality detected Saliva: No abnormality detected Lip Seal: No abnormality detected Tongue Movement: Full range of motion Tongue Strength: No abnormality detected Tongue Coordination: No abnormality detected Gag: No gag (did not assess) Palate: No abnormality detected Cough Reflex: No deficit noted Voluntary Cough: No abnormality detected Voice: No abnormality detected Trach: No trach Oral Preparation: No deficits noted Bolus Clearance: Fully cleared Oral Transit: No deficits noted Pharyngeal Phase: Immediate laryngeal elevation Pharyngeal Response: No deficits noted MASA Score: 196 Dysphagia: No dysphagia detected (178-200) Aspiration Risk: No aspiration risk (170-200) Plan CORN HUSKER Frequency of Services during current admission: One-time visit (Discharge from this service) CORN HUSKER Recommendation (Add'l Services): No further CORN HUSKER indicated Further Assessment/Follow up Indicated: Recommendations: (No further ST needs for swallowing.) Next Visit Plan:No further ST warranted Additional Referrals: none Please reference care plan for treatment goals, if indicated. Discharge Summary Statement If this is the last swallow therapy visit, this serves as the discharge summary. documented in this encounter Consult Notes * Dot Brown RD - 09/29/2023 1:54 PM CDT NUTRITION ASSESSMENT Nutrition Status: Patient does not meet ASPEN criteria for malnutrition at this time. REASON FOR ASSESSMENT: Length of Stay Encounter Date: 09/29/23 1:54 PM Admission Date: 09/16/2023 LOS: 13 days HPI: Patient is a 78 y.o. female no known past medical history chief complaint of ground level fall withL distal tib/fib fractures s/p IMN, found to have cervical myelopathy. OR 09/15: IMN left tibia and fibula OR 09/19: PSF C2-C7, C3-6 laminectomy, C4-5 foraminotomies Objective No past medical history on file. History reviewed. No pertinent surgical history. Social History Tobacco Use Smoking status: Former Current packs/day: 0.00 Types: Cigarettes Quit date: 1964 Years since quittin.5 Smokeless tobacco: None Substance and Sexual Activity Drug use: None Sexual activity: None Alcohol Use: Not At Risk (09/16/2023) AUDIT-C Frequency of Alcohol Consumption: Monthly or less Average Number of Drinks: 1 or 2 Frequency of Binge Drinking: Never MEDICATION/LAB REVIEW: Scheduled Meds: acetaminophen, 1,000 mg, oral, Q6H gabapentin, 300 mg, oral, BID heparin, 5,000 Units, subcutaneous, Q8H LILA lidocaine, 2 patch, transdermal, Q24H methocarbamoL, 1,000 mg, oral, QID polyethylene glycol, 17 g, oral, Daily senna-docusate, 1 tablet, oral, BID sodium chloride 0.9%, 0.5-20 mL, intra-catheter, Q8H LILA traZODone, 50 mg, oral, Nightly Continuous Infusions: PRN Meds: benzocaine-menthoL bisacodyL naloxone ondansetron oxyCODONE sodium chloride sodium chloride 0.9% Recent Labs Lab Units 09/25/23225009/24/236 09/23/23 1604 09/22/232003 SODIUM mmol/L 137 140 141 138 POTASSIUM PLASMA mmol/L 4.3 4.5 4.5 4.5 CHLORIDE mmol/L 100 104 104 102 CO2 mmol/L 30 29 32 30 BUN SERUM mg/dL 12 10 10 9 CREATININE mg/dL 0.49* 0.46* 0.45* 0.42* [id number] mL/min/1.73 m2 >90 >90 >90 >90 CALCIUM mg/dL 8.5 8.5 8.4* 8.0* PHOSPHORUS PLASMA mg/dL -- 3.3 3.8 1.9* MAGNESIUM mg/dL -- 1.9 1.9 1.8 Recent Labs Lab Units 09/25/23225009/25/23 1406 09/25/23 0725 09/24/236 09/23/23 1604 09/22/232003 GLUCOSE mg/dL 102 -- -- 125 121 135 POC GLUCOSE MONITOR mg/dL -- 127 127 -- -- -- No results found for: ALT , AST , BILIRUBIN , ALKPHOS , LIPASE No results found for: HGBA1C , HDL , LDLCALC , CHOL , TRIG NURSING ASSESSMENT: Last BM Date: 09/28/23 Bowel Sounds (All Quadrants): Active Kane Scale Score: 14 Skin Integrity: Surgical incision Type of Wound (LDA): Surgical site Edema: Mild pitting, silght indention Vital Signs BP: 121/74 Temp: 36.8 ??C (98.2 ??F) Pulse: 116 Resp: 18 SpO2: 93 % Intake/Output Summary (Last 24 hours) at 09/29/2023 1354 Last data filed at 09/29/2023 1155 Gross per 24 hour Intake 510 ml Output 1250 ml Net -740 ml Adult Malnutrition Scoring Tool (MST) What diet do you follow at home?: Regular Have You Recently Lost Weight Without Trying?: No Have you been eating poorly because of a decreased appetite?: No Malnutrition Screening Tool (MST) Score: 0 Within the past 12 months, you worried that your food would run out before you got the money to buymore.: Never true Within the past 12 months, the food you bought just didn't last and you didn't have money to get more.: Never true Anthropometrics Weight: 82.4 kg (181 lb 10.5 oz) Admission Weight : 72.6 kg Weight Change: 9.82 kg (21.65 lbs) IBW/kg (Calculated) : 56.7 kg Height: 165.1 cm (5' 5 ) Weight in (lb) to have BMI = 25: 149.9 BMI (Calculated): 30.2 Wt Readings from Last 10 Encounters: 09/24/23 82.4 kg (181 lb 10.5 oz) ESTIMATED NEEDS: Weight Used for Equation Calculations (RD Determined): 72.6 kg (160 lb 0.9 oz) Total Kcal/kg Estimated Needs : 1669.8 Kcal/k. Type of Weight Used for Estimated Kcals: RD determined Total Protein Estimated Needs (gm): 85.05 Protein Needs Based on g/k.5 Type of Weight Used for Estimated Protein : [place] Dietary Orders (From admission, onward) Start Ordered 09/23/23 1100 Oral Nutrition Supplements ([facility]) Select Supplement: VARY/multiple Flavor, Ensure Plus- Evie; Quantity (# of cans): 1 can All Meals Question Answer Comment ([facility]) Select Supplement: VARY/multiple Flavor ([facility]) Select Supplement: Ensure Plus - Evie Quantity (# of cans): 1 can 09/23/23 0809 09/20/23 1434 Adult Diet Regular Diet effective now Question: ([facility]) Diet type Answer: Regular 09/20/23 1439 Reviewed. Allergies: IMPRESSION: Pt reports she continues to eat well consuming 50-100% of most meals. No issues with a poor appetite. Pt reports no N/V. +BM yesterday. Pt has been drinking 2 ensure per day, likes any of the flavors. ASPEN MALNUTRITION ASSESSMENT: Date of completion: 09/23/2023 ASPEN/AND Malnutrition Screening: Patient does not meet malnutrition criteria NUTRITION FOCUSED PHYSICAL EXAM: Completed, patient with changes likely related to age and not nutrition status. Subcutaneous Fat Loss Orbital Region - Surrounding the Eye: Loose skin, Slightly dark circles NUTRITION DIAGNOSIS: Nutrition Diagnosis 1: Inadequate oral intake Related to: Acute illness/injury Evidenced by: Patient interview INTERVENTION(S): Summary: Medical food supplement Continue regular - provide food preferences as able. Continue Ensure Plus TID Encouraged PO intake, snacks, supplements. GOAL(S): Adequate nutrition to meet estimated needs by next assessment MONITORING/EVALUATION: Appetite, GI output, I/O, Labs, PO intake Diet Instructions Adult Discharge Diet Diet Type: Return to previous diet Dot Brown MS RD LD #[phone] * Jose Rodriguez MD - 09/29/2023 10:53 AM CDTAssociated Order(s): CONSULT TO PM&R PHYSICIAN Consult Reason: Assess rehabilitation needs Requesting Attending: Ibrahima Middleton MD HISTORY Aidee Domínguez is a 78yo Right-handed woman with pmh of no reported medical history who was transferred from [facility] 09/16/23 with BUE weakness and LLE pain after a fall whereby walker slipped on floor with reported >36hr downtime, found to have rhabdomyolysis, Left distal tib-fib fractures, and Cervical spondylosis with severe C3-C4 stenosis and anterior and posterior cord impingement, with incidental finding of RLL pulmonary nodule, undergoing Left tibial and fibular IMN with Dr. Taylor on 09/16/23, and C3-C6 laminectomies and C2- C7 PSF with Dr. Rodriguez on 09/20/23. She continues withuse of [place] orthosis and NWB LLE in splint. She is seen today for rehabilitation evaluation. She has no fever/chills, nausea, chest or abdominal pain, or dyspnea. She has had numbness in Bilateral hands which preceded the falls, without neck pain. Bowel and bladder sensation are intact. DIET: Regular/thin PMH/PSH : None reported Functional Status: Prehospitalization: Ellie with ADLs and mobility with use of Rollator, driving Current: LE Dressing total assist Toileting total assist Bed mobility maxA Transfers maxA x2 Family history: No family history on file. Social history Social History Tobacco Use Smoking status: Former Current packs/day: 0.00 Types: Cigarettes Quit date: 1963 Years since quittin.5 Smokeless tobacco: None Substance and Sexual Activity Alcohol use: None Drug use: None Sexual activity: None Plan to live near daughter in an accessible senior condominium. ALLERGIES: No Known Allergies MEDICATIONS: Current Facility-Administered Medications Medication Dose Route Frequency Provider Last Rate Last Admin acetaminophen (TYLENOL) tablet 1,000 mg 1,000 mg oral Q6H Amy Lara NP 1,000 mg at 09/28/23 2322 benzocaine-menthoL (CHLORASEPTIC) lozenge 1 lozenge 1 lozenge mouth/throat Q2H PRN Xiao Gomez MD 1 lozenge at 09/24/23 1102 bisacodyL (DULCOLAX) suppository 10 mg 10 mg rectal BID PRN Klever Phillips MD 10 mg at 09/23/23 1248 gabapentin (NEURONTIN) capsule 300 mg 300 mg oral BID Klever Phillips MD 300 mg at 09/29/23 0814 heparin 5,000 unit/mL injection 5,000 Units 5,000 Units subcutaneous Q8H Naheed Landin MD 5,000 Units at 09/29/23 0536 lidocaine (ASPERCREME) 4 % patch 2 patch 2 patch transdermal Q24H Hannah Chun NP 2 patch at 09/26/23 1318 methocarbamoL (ROBAXIN) tablet 1,000 mg 1,000 mg oral QID Klever Phillips MD 1,000 mg at 09/29/23 0814 naloxone (NARCAN) 0.4 mg/mL injection 0.04-0.4 mg 0.04-0.4 mg intravenous Q10 Min PRN Gwendolyn Bee MD ondansetron (ZOFRAN) injection 4 mg 4 mg intravenous Q6H PRN Gwendolyn Bee MD oxyCODONE (ROXICODONE) tablet 5 mg 5 mg oral Q4H PRN Klever Phillips MD 5 mg at 09/28/23 1745 polyethylene glycol (MIRALAX) packet 17 g 17 g oral Daily Hannah Cuhn NP 17 g at 900 senna-docusate (PERICOLACE) 8.6-50 mg per tablet 1 tablet 1 tablet oral BID Marcos Salazar MD 1 tablet at 09/29/23 0814 sodium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 facility-administered medications on file prior to encounter. No current outpatient medications on file prior to encounter. Immunizations: There is no immunization history on file for this patient. Past Medical History: No past medical history on file. Hospitalized: No Surgical History: No past surgical history on file. Family History: No family history on file. Social: Social History Tobacco Use Smoking status: Not on file Smokeless tobacco: Not on file Substance and Sexual Activity Drug use: Not on file Sexual activity: Not on file Alcohol Use: Not on file Last Meal: 09/14 SURVEY Primary Assessment Uncontrolled hemorrhage: No Airway: Patent Eye Opening: Spontaneous Best Verbal Response: Oriented Best Motor Response: Obeys commands Brittney Coma Scale Score: 15 C-Spine Precautions: No Breathing Effort: Normal Trachea: Midline Pulse Present: Left Radial, Right Radial, Right Pedal, Left Pedal, Left Popliteal, Right Popliteal Capillary Refill: Less than/equal to 3 seconds Cardiac Rhythm: Normal sinus rhythm L Pupil Reaction: Brisk R Pupil Reaction: Brisk Patient exposed: Yes Warming Devices: Warm Blankets Secondary Assessment Head: No injury noted TM Left: Clear TM Right: Clear Pupils: Equal, Reactive right, Reactive left EOM intact: Yes Face: No injury noted Neck: No injury noted Trachea: Midline Chest right: No injury noted Chest left: No injury noted Breath Sounds: Normal Breath Sounds Abdomen/Pelvis/Perineum injury : No injury noted Pelvic stability: Yes Perineum blood at meatus: No Is patient : No Spine/Posterior surfaces: No injury noted Extremities: Injury Site: LLE LLE inspection: Swelling, Deformity Log rolled: Yes Rectal tone: Present Resuscitation Phase & Emergency Treatments Pt received Pain Medication Trauma Team: Attending: Ibrahima Middleton MD Clarence: Sher Consultants: (name of attending) IP CONSULT TO ORTHOPEDIC SURGERY Vitals Temp: 37.3 ??C (99.1 ??F) Pulse: 83 Resp: 13 BP: 105/57 SpO2: 98 % O2 Flow Rate (L/min): 2 L/min O2 Del Method: Nasal cannula Physical Exam Constitutional: Appearance: Normal appearance. HENT: Head: Normocephalic and atraumatic. Right Ear: External ear normal. Left Ear: External ear normal. Nose: Nose normal. Mouth/Throat: Mouth: Mucous membranes are moist. Pharynx: Oropharynx is clear. Cardiovascular: Rate and Rhythm: Normal rate and regular rhythm. Pulses: Normal pulses. Pulmonary: Effort: Pulmonary effort is normal. Abdominal: General: Abdomen is flat. There is no distension. Palpations: Abdomen is soft. Tenderness: There is no abdominal tenderness. Musculoskeletal: General: Swelling, tenderness and deformity present. Cervical back: Normal range of motion and neck supple. Left lower leg: Edema present. Skin: General: Skin is warm and dry. Findings: Bruising (LLE distal ecchymosis) present. Neurological: General: No focal deficit present. Mental Status: She is alert and oriented to person, place, and time. SECONDARY DATA Data Review: Lab Results Component Value Date WBC 12.7 (H) 09/16/2023 HGB 11.5 (L) 09/16/2023 HCT 35.2 (L) 09/16/2023 MCV 89.6 09/16/2023 LABPLAT 209 09/16/2023 Lab Results Component Value Date GLUCOSE 101 09/16/2023 CALCIUM 8.4 (L) 09/16/2023 SODIUM 137 09/16/2023 POTASSIUM 3.7 09/16/2023 CO2 23 09/16/2023 CHLORIDE 105 09/16/2023 BUNSER 20 09/16/2023 CREATININE 0.58 (L) 09/16/2023 Recent Labs Lab Units 09/16/23 0302 APTT sec 27* PROTIME (PT) sec 14.0* INR 1.23* Recent Results (from the past 36 hour(s)) Urinalysis reflex to microscopic and culture Urine Collection Time: 09/16/23 3:02 AM Specimen: Urine Result Value Ref Range Color, ur Maryana Yellow Clarity, ur Clear Clear Specific gravity, ur 1.028 1.003 - 1.030 pH, urine 6.0 Protein, ur ql 3+ (A) Negative Glucose, ur ql Negative Negative Ketones, ur 2+ (A) Negative Bilirubin, ur Negative Negative Blood, ur 2+ (A) Negative Urobilinogen, ur <2.0 <2.0 mg/dL Nitrite, ur Negative Negative Leukocyte esterase, ur Negative Negative UA reflex comment Reflex to microscopic UA will be performed. CBC with auto differential Collection Time: 09/16/23 3:02 AM Result Value Ref Range WBC 12.7 (H) 3.8 - 9.9 K/cumm Hgb 11.5 (L) 11.9 - 15.5 g/dL Hct 35.2 (L) 35.6 - 45.5 % Plt 209 150 - 400 K/cumm MPV 11.2 9.1 - 12.3 fL RBC 3.93 3.90 - 5.20 M/cumm MCV 89.6 81.3 - 96.4 fL MCH 29.3 27.1 - 33.3 pg MCHC 32.7 32.3 - 35.7 g/dL RDW CV 12.8 11.1 - 14.9 % RDW SD 42.1 35.7 - 48.1 fL NRBC abs 0.00 0.00 - 0.01 K/cumm Comprehensive metabolic panel Collection Time: 09/16/23 3:02 AM Result Value Ref Range Sodium 137 135 - 145 mmol/L Potassium, pl 3.7 3.3 - 4.9 mmol/L Chloride 105 97 - 110 mmol/L CO2 23 22 - 32 mmol/L Anion gap 9 2 - 15 mmol/L BUN 20 6 - 25 mg/dL Creatinine 0.58 (L) 0.60 - 1.10 mg/dL Glucose 101 70 - 199 mg/dL Calcium 8.4 (L) 8.5 - 10.3 mg/dL Bilirubin, total 0.8 0.1 - 1.2 mg/dL Protein, pl 5.9 (L) 6.5 - 8.5 g/dL Albumin 3.1 (L) 3.5 - 5.0 g/dL Alk phos 78 40 - 130 Units/L ALT 33 7 - 45 Units/L AST 84 (H) 10 - 45 Units/L Protime-INR Collection Time: 09/16/23 3:02 AM Result Value Ref Range PT 14.0 (H) 10.3 - 13.7 sec INR 1.23 (H) 0.90 - 1.20 aPTT Collection Time: 09/16/23 3:02 AM Result Value Ref Range aPTT 27 (L) 28 - 38 sec Type and screen Collection Time: 09/16/23 3:02 AM Result Value Ref Range ABO Rh O Positive Alejandrina, indirect Negative Creatine kinase (CK), total Collection Time: 09/16/23 3:02 AM Result Value Ref Range CK 1,389 (H) 30 - 200 Units/L Differential, auto Collection Time: 09/16/23 3:02 AM Result Value Ref Range Neutrophil abs 10.0 (H) 1.5 - 6.5 K/cumm Imm gran abs 0.1 0.0 - 0.1 K/cumm Lymphocyte abs 1.0 0.8 - 3.3 K/cumm Monocyte abs 1.6 (H) 0.2 - 0.8 K/cumm Eosinophil abs 0.0 0.0 - 0.5 K/cumm Basophil abs 0.0 0.0 - 0.1 K/cumm Neutrophil pct 78.6 % Imm gran pct 0.6 % Lymphocyte pct 7.9 % Monocyte pct 12.6 % Eosinophil pct 0.1 % Basophil pct 0.2 % Urinalysis, microscopic only Collection Time: 09/16/23 3:02 AM Result Value Ref Range WBC, ur 0-5 0 - 5 /HPF RBC, ur 11-20 (A) 0 - 2 /HPF Epithelial cells, squamous, ur 1-5 0 - 5 /HPF Bacteria, ur Trace (A) Mucous, ur Present (A) Hyaline casts, ur 6-10 0 - 10 /LPF Culture Reflex Comment Reflex conditions for urine culture (WBC >10) not met. eGFR Collection Time: 09/16/23 3:02 AM Result Value Ref Range eGFR >90 >=60 mL/min/1.73 m2 Magnesium Collection Time: 09/16/23 3:02 AM Result Value Ref Range Magnesium 2.0 1.4 - 2.5 mg/dL Check Sample Collection Time: 09/16/23 4:42 AM Result Value Ref Range ABO Rh O Positive Imaging: CT Ankle Left WO Contrast Result Date: 09/16/2023 1. Comminuted, minimally displaced and foreshortened fracture of the distal left tibial metaphysis extending into the lateral aspect of the metaphysis without definite involvement of the articular surface. Evaluation is partially limited by diffuse osteopenia. 2. Comminuted and angulated distal left fibular diaphyseal fracture. Dictated by: Dennis Masters MD, PHD CT Chest Abdomen Pelvis W Contrast Result Date: 09/16/2023 1. No findings of acute trauma in the chest, abdomen or pelvis. 2. Small- moderate hiatal hernia. Otherwise, no evidence of mediastinal mass as clinically queried. 3. Nonspecific mild central intrahepatic and extrahepatic bile duct dilatation of uncertain significance in the setting of normal serum bilirubin. 4. Indeterminate right lower lobe pulmonary nodule with broad base along the pleura. Recommend comparison with prior imaging if available to document stability. If no prior imaging is available, recommend follow-up CT in 6-12 months. Dictated by: Dennis Masters MD, PHD XR Tibia Fibula Left 2 Views Result Date: 09/16/2023 FINDINGS/IMPRESSION: LEFT TIBIA/FIBULA: Comparison is made to radiograph from 09/15/2023 at 11:00 PM. Splinting of the left leg obscures fine underlying bony detail. Redemonstrated comminuted fractures involving the distal left tibia and fibula, likely with intra-articular extension and involving the syndesmosis that are not significantly changed in alignment. Continued apex lateral angulation of the fibular fracture. Associated soft tissue swelling is noted. Dictated by: Eris Goldstein M.D. Neuro CT Outside Consult Result Date: 09/16/2023 1. No acute intracranial process. 2. No acute fracture of the cervical spine. 3. Severe multilevel degenerative disc disease of the cervical spine with up to severe spinal canal stenosis at C3-C4 in up to severe neuroforaminal stenosis at multiple levels as described above. The findings, conclusions and recommendations within this report do not replace the initial findings, conclusions and recommendations made at the facility where the study was performed based upon the imaging and clinical condition at that time. Comparison with the prior report and clinical history is necessary. The provided images may or may not represent the [facility] source data set and thus may contain changes that may lower the accuracy of this second-opinion interpretation. Dictated by: Pedro Dias MD Neuro CT Outside Consult Result Date: 09/16/2023 1. No acute intracranial process. 2. No acute fracture of the cervical spine. 3. Severe multilevel degenerative disc disease of the cervical spine with up to severe spinal canal stenosis at C3-C4 in up to severe neuroforaminal stenosis at multiple levels as described above. The findings, conclusions and recommendations within this report do not replace the initial findings, conclusions and recommendations made at the facility where the study was performed based upon the imaging and clinical condition at that time. Comparison with the prior report and clinical history is necessary. The provided images may or may not represent the [facility] source data set and thus may contain changes that may lower the accuracy of this second-opinion interpretation. Dictated by: Pedro Dias MD XR Outside Reference Result Date: 09/16/2023 These images are for Reference purposes only and have not been reviewed by [facility]. There will be no report generated by a [facility]ologist. XR Outside Reference Result Date: 09/16/2023 These images are for Reference purposes only and have not been reviewed by [facility]. There will be no report generated by a [facility]ologist. XR Outside Reference Result Date: 09/16/2023 These images are for Reference purposes only and have not been reviewed by [facility]. There will be no report generated by a [facility]ologist. XR Outside Reference Result Date: 09/16/2023 These images are for Reference purposes only and have not been reviewed by [facility]. There will be no report generated by a [facility]ologist. XR Outside Reference Result Date: 09/16/2023 These images are for Reference purposes only and have not been reviewed by [facility]. There will be no report generated by a [facility]ologist. XR Outside Reference Result Date: 09/16/2023 These images are for Reference purposes only and have not been reviewed by [facility]. There will be no report generated by a [facility]iologist. Cosigned by Ibrahima Middleton MD at 09/16/2023 8:20 AM CDT Associated attestation - Ibrahima Middleton MD - 09/16/2023 8:20 AM CDT I have personally seen and examined this patient on the day of arrival and have reviewed, discussedand confirmed the history, physical exam, laboratory, radiographic data, assessment and plan as documented by the resident. Disposition of patient: Admit to GTS Ibrahima Middleton MD Section of Acute and Critical Care Surgery * Pablo Gardner MD - 09/16/2023 3:59 AM CDTAssociated Order(s): IP CONSULT TO ORTHOPEDIC SURGERY Orthopaedic Surgery Trauma Service Consult September 16, 2023 3:59 AM Reason for Consult: left tib-fib fractures Requesting Provider: ED This patient was evaluated within 30 minutes of consultation. [facility] Dx: L distal tib/fib fx Injury Mechanism: SLMF OI: none PMHx: none Plan: ORIF L distal tib/fib fx Procedure(s): PENDING ORIF L distal tib/fib fx HPI: 78 y.o. female s/p mechanical fall p/w left distal tib-fib fractures. Patient found down after24 hours, was unable to get up due to her leg. Exam: alert and oriented x3, closed, scattered ecchymosis, minimal swelling with intact wrinkles, neurovascularly intact distally OI: none. Consulting Services: trauma. PMHx: none. Soc Hx: non smoker, +social EtOH, - drugs, ambulates with a wheeled walker, retired, lives alone No past medical history on file. No past surgical history on file. Prior to Admission medications Not on File No Known Allergies Social History Tobacco Use Smoking status: Not on file Smokeless tobacco: Not on file Substance and Sexual Activity Drug use: Not on file Sexual activity: Not on file Alcohol Use: Not on file No family history on file. Review of Systems: Constitutional: Negative for chills and fever. HENT: Negative for acute hearing loss Eyes: Negative for pain and visual disturbance. Respiratory: Negative for cough and shortness of breath. Cardiovascular: Negative for chest pain and palpitations. Gastrointestinal: Negative for abdominal pain and vomiting. Genitourinary: Negative for dysuria and hematuria. Musculoskeletal: pain in injured extremity Skin: Negative for acute rash. Neurological: Negative for seizures and syncope. Review of systems per HPI and otherwise all other systems are negative. Objective Vitals: 24hr Min/Max: Temp Min: 37.3 ??C (99.1 ??F) Max: 37.3 ??C (99.1 ??F) Pulse Min: 90 Max: 114 BP Min: 105/60 Max: 123/64 Resp Min: 13 Max: 20 SpO2 Min: 92 % Max: 95 % Most Recent: Vitals: 09/16/23 0315 09/16/23 0330 09/16/23 0335 09/16/23 0345 BP: 115/63 106/58 109/50 Pulse: 114 93 95 95 Resp: 17 13 20 18 Temp: TempSrc: SpO2: 95% 94% 95% 93% Weight: Height: Physical Exam: Gen: Well-developed, well-nourished, in no acute distress. Alert and oriented: x3 Normal respirations, no dyspnea with speaking Left Lower Extremity No obvious deformity, skin intact, scattered ecchymosis Tenderness to palpation at distal leg No crepitus with passive range of motion hip, knee, ankle Fires tibialis anterior, gastroc-soleus complex, extensor hallucis longus, and flexor hallucis longus SILT superficial peroneal, deep peroneal, tibial, saphenous, and sural nerve distributions 2+ dorsalis pedis, posterior tibial pulses Toes warm and well perfused, brisk capillary refill <3 seconds Remainder of extremities examined with no other areas of tenderness or injuries noted Lab/Radiology/Diagnostic Review: Laboratory review: Recent Results (from the past 24 hour(s)) CBC with auto differential Collection Time: 09/16/23 3:02 AM Result Value Ref Range WBC 12.7 (H) 3.8 - 9.9 K/cumm Hgb 11.5 (L) 11.9 - 15.5 g/dL Hct 35.2 (L) 35.6 - 45.5 % Plt 209 150 - 400 K/cumm MPV 11.2 9.1 - 12.3 fL RBC 3.93 3.90 - 5.20 M/cumm MCV 89.6 81.3 - 96.4 fL MCH 29.3 27.1 - 33.3 pg MCHC 32.7 32.3 - 35.7 g/dL RDW CV 12.8 11.1 - 14.9 % RDW SD 42.1 35.7 - 48.1 fL NRBC abs 0.00 0.00 - 0.01 K/cumm Protime-INR Collection Time: 09/16/23 3:02 AM Result Value Ref Range PT 14.0 (H) 10.3 - 13.7 sec INR 1.23 (H) 0.90 - 1.20 aPTT Collection Time: 09/16/23 3:02 AM Result Value Ref Range aPTT 27 (L) 28 - 38 sec Differential, auto Collection Time: 09/16/23 3:02 AM Result Value Ref Range Neutrophil abs 10.0 (H) 1.5 - 6.5 K/cumm Imm gran abs 0.1 0.0 - 0.1 K/cumm Lymphocyte abs 1.0 0.8 - 3.3 K/cumm Monocyte abs 1.6 (H) 0.2 - 0.8 K/cumm Eosinophil abs 0.0 0.0 - 0.5 K/cumm Basophil abs 0.0 0.0 - 0.1 K/cumm Neutrophil pct 78.6 % Imm gran pct 0.6 % Lymphocyte pct 7.9 % Monocyte pct 12.6 % Eosinophil pct 0.1 % Basophil pct 0.2 % Radiology Review: I independently reviewed and interpreted the imaging with the following findings: XR of left knee, tib-fib, and ankle reviewed, displaying distal tib-fib fractures Clinical Images: None Procedure: Please see separate procedure note for details. Assessment/Plan: 78 y.o. female p/w left distal tib-fib fracture. Plan: OR for ORIF Recommend consultation with GTS for admission Weight Bearing: NWB LLE Diet: NPO until further notice DVT ppx: hold Further Workup: Pre-op - IPAP evaluation, rapid COVID, CBC/BMP/coags/T&S/UA/CXR/EKG Further Imaging: none Pain control: per ED Keep splint clean and dry, elevation above level of the heart Abx: n/a Will discuss with the ortho trauma team prior to further recommendations. Signed, Pablo Gardner MD Orthopaedic Surgery PGY-2 For patients or family members viewing this note through Immediately programs: This note was written as a communication tool between healthcare providers and may contain technical language, terminology and abbreviations that are difficult to interpret without advanced medical training. If you have questions or concerns regarding what is written in this note, please request tospeak with the primary medical team taking care of you or your family member or call your PCP for clarification. Please do not call the cell or pager numbers listed in this note, as the provider theyare associated with may no longer be involved in your care. Normal business hours: If you know the resident's name on the appropriate orthopaedic surgery team,please use the Directory Search at [email or web address] to page resident directly. If questions arise and the appropriate resident can't be reached or you are calling overnight, please contact [phone] ([place]- 7:30 PM - 6:30 AM - Floor Resident) or [phone] (24 hours/day - Consult Resident) Cosigned by Hammad Taylor MD at 09/16/2023 6:51 AM CDT Associated attestation - Hammad Taylor MD - 09/16/2023 6:51 AM CDT Attending Attestation I have reviewed the orthopaedic surgery consultation note, reviewed the history, and reviewed the pertinent imaging studies in this patient's chart which show left distal tibia and fibula fractures. I have seen and examined the patient on 09/16/23 in the Emergency Department. I agree with the findings, and endorse the plan of care as documented in the note by Dr. Gardner. Based on the above findings, I consider the patient to be an acceptable risk for: Open reduction internal fixation left tibia fracture, possible open reduction internal fixation left fibula fracture.I discussed with the patient the indications for the procedure, the potential risks, expected benefits, and options for both operative and non-operative treatment. After this lengthy discussion, She has given her informed consent and wishes to proceed with surgery. Hammad Taylor MD Network Communications Engineer Orthopedic Trauma Service [facility] Hammad Taylor MD dictating using [employer] Software. Missileman variances may occur. documented in this encounter Nursing Notes * Priscila Crespo RN - 09/29/2023 2:21 PM CDT Report given to Mariaa at [facility]. Faxed script to [phone]. * Claire Tena RN - 09/24/2023 12:01 PM CDT Patient transferred to [facility]. No personal belongings at bedside to send with patient. No questions from receiving RN. * Hannah Ghotra RN - 09/20/2023 5:48 PM CDT Dilaudid DIRECTOR OF ANNUAL GIVING 20mg/100ml of sodium chloride was ordered for patient with the parameters of 0.2mg [id number] with a 1.2mg lockout per hour. Dilaudid CADD started (order ID [id number]) at 1456 with dual sign from second RN. Provider then D/C'd the original Dilaudid DIRECTOR OF ANNUAL GIVING order and re-ordered it (order ID [id number]) with thesame concentration, instructions and parameters (0.2mg q10 mins with a 1.2mg lockout per hour). Dual sign RN handoff completed at 1654 after clearing pump values. At 1657 there is a canceled entry under the discontinued order stating, provider ordered DIRECTOR OF ANNUAL GIVING standard dosing 0.2 dilaudid q10 min with a 1.2mg lockout/hr then D/C order but reordered under the same parameters; DIRECTOR OF ANNUAL GIVING not stopped, see handoff with dual nurse sign at 1654 under new order. 1 CADD pulled from xis and given in total; the CADD from 1456 (order ID [id number]). * Karley Guo RN - 09/19/2023 10:03 AM CDT Patient drowsy, irritable, and not participating in neuro assessment on arrival to pre-op at 0920. Patient asking to leave hospital. I spoke with her nurse Christian on 6500 and he said this neuro statuschange from being alert and oriented was noticed around 0630. I also spoke with LUIGI Chun and she said that the patient was alert and oriented when she assessed the patient yesterday at 4pm. LUIGI Chun ordered a head CT. In CT several minutes later patient refused head CT and surgery. She answered orientation questions appropriately. LUIGI Chun notified and said she would cancel the head CT. CT not performed. Surgical spine resident present when patient arrived back in pre-op holding. He spoke with patient and patient's daughter Jennifer. Patient refused to have surgery and daughter agreed. Spinal surgery canceled. documented in this encounter ED Notes * Maximiliano Santana RN - 09/16/2023 10:34 AM CDT Bed: [place] [address] Expected date: Expected time: Means of arrival: Comments: 1R Maximiliano Santana RN 09/16/23 1034 * Sara Jimenez MD - 09/16/2023 2:48 AM CDT HPI Chief Complaint Patient presents with Fall Aidee Domínguez is a 78 y.o. 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 Patient normally ambulates with a walker. She had a mechanical fall 2 days ago while she was ambulating with her walker but her walker slipped on the wet floor causing her to fall onto her left leg. She did not hit her head or lose consciousness but was on the ground for 24 hours until her daughter found her the next day and called EMS. She was seen outside hospital where she had imaging of her head and cervical spine as well as x-rays of her left lower extremity which showed the above fracture. Was transferred for further evaluati on. The left leg was splinted prior to transfer. Patient did receive 4 mg of morphine prior to transfer and states her pain is well controlled at this time. She is not on blood thinners. She was alsonoted to have an elevated CK and received fluids outside hospital. Portions of the record may have been created with voice recognition software. Occasional wrong-wordor '[id number]' substitutions may have occurred due to the inherent limitations of voice recognition software. Read the chart carefully and recognize, using context, where substitutions have occurred. Patient History: Patient Active Problem List Diagnosis Date Noted Closed fracture of part of tibia 09/16/2023 Closed fracture of shaft of left tibia, unspecified fracture morphology, initial encounter 09/16/2023 No past medical history on file. History reviewed. No pertinent surgical history. No family history on file. Social History Tobacco Use Smoking status: Former Current packs/day: 0.00 Types: Cigarettes Quit date: 1964 Years since quittin.4 Smokeless tobacco: None Substance and Sexual Activity Alcohol use: None Drug use: None Sexual activity: None Social History Social History Narrative Not on file Review of Systems Review of Systems All other systems reviewed and are negative. Physical Exam ED Triage Vitals Temp Pulse Resp BP SpO2 09/16/23 0230 09/16/23 0230 09/16/23 0230 09/16/23 0230 09/16/23 0230 37.3 ??C (99.1 ??F) 97 17 123/64 94 % Temp src Heart Rate Source Patient Position BP Location FiO2 (%) 09/16/23 0230 09/16/23 1115 09/16/23 1550 09/16/23 2200 -- Oral Monitor Lying Left arm Height Height Method Weight Weight Method 09/16/23 0245 09/16/23 0245 09/16/23 0245 09/16/23 0245 1.651 m (5' 5 ) Stated 72.6 kg (160 lb) Stated Physical Exam Vitals and nursing note reviewed. Constitutional: General: She is not in acute distress. Appearance: She is well-developed. HENT: Head: Normocephalic and atraumatic. Eyes: Conjunctiva/sclera: Conjunctivae normal. Cardiovascular: Rate and Rhythm: Normal rate and regular rhythm. Heart sounds: No murmur heard. Pulmonary: Effort: Pulmonary effort is normal. No respiratory distress. Breath sounds: Normal breath sounds. Abdominal: Palpations: Abdomen is soft. Tenderness: There is no abdominal tenderness. Musculoskeletal: General: No swelling. Cervical back: Neck supple. No tenderness. Thoracic back: No tenderness. Lumbar back: No tenderness. Comments: + significant tenderness, ecchymoses, swelling of the left lower extremity though soft compartments neurovascularly intact distally, unable to palpate DP or PT but does have dopplerable pulses in the DP and PT Skin: General: Skin is warm and dry. Capillary Refill: Capillary refill takes less than 2 seconds. Neurological: Mental Status: She is alert. Psychiatric: Mood and Affect: Mood normal. [facility] Medical Decision Making 78-year-old female history as above presenting his transfer to outside hospital with a left tib-fibfracture due to mechanical fall the day prior. Head CT of her head and cervical spine outside hospital which were negative. Splint was removed, the fracture is not open. We will consult Orthopedic surgery further management. GTS also saw on arrival. Patient will likely admission. She also had elevated CK outside hospital, possibly from dialysis. We will obtain repeat CK as well as repeat labs including CBC, BMP, type and screen, coags. We will put an order for p.r.n. morphine the patient statesthat her pain is well controlled at this time. Amount and/or Complexity of Data Reviewed Labs: ordered. Decision-making details documented in ED Course. Radiology: ordered. Decision-making details documented in ED Course. ECG/medicine tests: ordered. Risk Prescription drug management. Decision regarding hospitalization. Attending Summary of Care ED Course as of 09/17/23 0726 Time: 09/15 0303 Comment: 78 yo F fall 2d ago down 24hrs dtr found slipped wet floor, to osh/mandeep found tib fib fx, ct head/spine and other xrays negative. Exam intact mentation, benignc ardiopulm/abd exams, leftshin ecchymosis with soft compartment. IMP: mechanical fall/left tib fib fx, rhabdo from osh, plan pain control/fluids/ortho eval and admit GTS anticiapted. By: Diogo Lee MD Time: 09/15 312 Comment: Spoke to Orthopedic surgery who will evaluate the patient and provide recommendations By: Sara Jimenez MD Time: 09/16 399 Comment: Ortho plans on surgery later today. They splinted to the left lower extremity. Recommendedleft ankle CT as well as left tib-fib postreduction films. By: Sara Jimenez MD Time: 09/15 400 Comment: Patient will be admitted to GTS under Dr. Middleton By: Sara Jimenez MD Time: 09/15 413 Comment: GTS noted a mediastinal mass on patient's chest x-ray so requested a CT chest abdomen pelvis which has been ordered. By: Sara Jimenez MD Time: 09/15 532 Value: CK(!): 1,389 Comment: (Reviewed) By: Sara Jimenez MD Time: 09/15 610 Value: XR Tibia Fibula Left 2 Views Comment: IMPRESSION: FINDINGS/IMPRESSION: LEFT TIBIA/FIBULA: Comparison is made to radiograph from 09/15/2023 at 11:00 PM. Splinting of the left leg obscures fine underlying bony detail. Redemonstrated comminuted fractures involving the distal left tibia and fibula, likely with intra-articular extension and involving the syndesmosis that are not significantly changed in alignment. Continued apex lateral angulation of the fibular fracture. Associated soft tissue swelling is noted. By: Sara Jimenez MD Time: 09/16 651 Comment: TRANSITION OF CARE: I, Miquel Bagley MD, am taking signout from outgoing doctor. I have reviewed all pertinent vital signs, allergies, and history available in the chart. Summary: 78 y.o. female with no significant PMHx presenting with fall. Mechanical fall with comminuted distal L tib/fib fx and down 24 hrs. Plan for ORIF with ortho. NPO,likely OR today. Pending/Dispo: admit to GTS post op By: Miquel Bagley MD Time: 09/15 800 Comment: Patient comfortable after CT ankle, denies pain. LLE neurovascularly intact, in plaster cast. Awaiting transfer to [facility]. Not requesting analgesia at this time. OR time 1228 per encounters By: Miquel Bagley MD Other closed fracture of distal end of left tibia, initial encounter Closed fracture of shaft of left tibia, unspecified fracture morphology, initial encounter Hypocalcemia Sara Jimenez MD Resident 09/17/23725 Cosigned by Diogo Lee MD at 09/17/2023 6:58 PM CDT Associated attestation - Diogo Lee MD - 09/17/2023 6:58 PM CDT I have seen and examined the patient on 09/16/2023. I reviewed the resident's note and agree with thefindings and plan of care as documented in the resident's note with modifications as documented in my note. * Teresa Lee RN - 09/16/2023 2:41 AM CDT Pt transferred from [facility] after unwitnessed mechanical fall on Thursday morning. Per pt she was on the ground for approx 24 hours after she was found. -hit head, -LOC, -BT. Imaging at OSH shows pt has a L distal tib fib fx. PMS intact and pulses palpable on arrival. * Ami Bragg RN - 09/16/2023 2:23 AM CDT Bed: [facility] Expected date: 09/16/23 Expected time: 1:05 AM Means of arrival: Ambulance Comments: Ami Bragg RN 09/16/23 0223 documented in this encounter Miscellaneous Notes * Plan of Care - Priscila Crespo RN - 09/29/2023 6:04 PM CDT Goals: Clinical Goals for the Shift: pain control, safety, comfort [facility] Patient Centered Goal for Treatment: safety Summary: * ECIN Note - Caroline Jarquin RN - 09/29/2023 2:12 PM CDT Images from the original note were not included. Patient COVID neg result. 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 Patient Information: Patient Header Patient Information Patient Name: AIDEE DOMÍNGUEZ Date of 1945 (78 years) Sex: Female , OT Eval and Treat Last 72 Hours OT Evaluation No documentation. OT Treatment Row Name 09/28/23 1004 09/25/23 1452 09/23/23 0810 Session Type Treatment -BS Treatment -AK Re-Evaluation s/p cervical spinal fusion -EL OT Received On 09/28/23 -BS 09/25/23 -AK 09/23/23 -EL Safe Environment Arm band checked;Patient found in supine;Session completed bedside;Gait belt not utilized, see comment no OOB mobility -BS Arm band checked;Patient found in supine;Gait belt not utilized, see comment no OOB mobility on this date -AK Arm band checked -EL Subjective Agreeable to Therapy -BS Agreeable to Therapy -AK Agreeable to Therapy -EL Family/Caregiver Present No -BS No -AK No -EL Precautions Cervical spine;Fall risk -BS Fall risk -AK Fall risk -EL Weight Bearing Restrictions Yes -BS Yes -AK Yes -EL LLE Weight Bearing NWB -BS NWB -AK NWB -EL Braces/Orthoses Cervical collar;Other [place]; [facility] LLE -BS Cervical collar [place] -AK Cervical collar [place] - Precaution Handout Issued No -BS -- No -EL Precaution Comments verbally reviewed prior to mobility -BS verbally reviewed precautions with pt prior to mobility -AK verbally reviewed precautions with patient -EL Pain Assessment 0-10 -BS 0-10 -AK No/denies pain -EL Pain Score 9 -BS 8 -AK 5 - Moderate pain -EL Patient's Stated Pain Goal -- -- No pain -EL Pain Type -- -- Surgical pain -EL Pain Location Leg -BS Leg -AK Back (Cervical) -EL Pain Orientation Left -BS Left;Right -AK Left -EL Pain Interventions RN Notified in room, addressing -BS Repositioned;RN Notified -AK Repositioned -EL Balance Tests -- -- Yes -EL Sitting Balance -- -- 0 -EL Arises -- -- 0 -EL Attempts to Arise -- -- 0 -EL Immediate Standing Balance (First 5 Seconds) -- -- 0 -EL Standing Balance -- -- 0 -EL Nudged -- -- 0 -EL Eyes Closed -- -- 0 -EL Turned 360 Degrees: Steadiness -- -- 0 -EL Turned 360 Degrees: Continuity of Steps -- -- 0 -EL Sitting Down -- -- 0 -EL Balance Score -- -- 0 -EL Balance -- Yes -AK Yes -EL Static Sitting-Balance Support Bilateral upper extremity supported;Feet supported -BS Bilateral upper extremity supported;Feet supported -AK Feet supported;Bilateral upper extremity supported -EL Static Sitting-Sitting Surface Bed -BS Bed -AK Bed -EL Static Sitting-Level of Assistance Moderate assistance -BS Moderate assistance;Minimum assistance -AK Moderate assistance -EL Static Sitting-Comment/# of Minutes mod A for truncal support, LOB in all planes -BS fluctuating between mod and min assist to maintain upright posture and trunk control; increased lateral leaning onthis date; RLE increasingly rigid after bed mobility making sitting EOB more difficult for the pt -AK Mod A for trunk control and support due to posterior and left lateral lean. Pt with increased pain in BUE and difficulty to grasp bed rail to help hold self in upright seated position -EL Dynamic Sitting-Balance Support Bilateral upper extremity supported;Feet supported -BS -- -- Dynamic Sitting-Balance Lateral lean;Forward lean -BS -- -- Dynamic Sitting-Sitting Surface Bed -BS -- -- Dynamic Sitting-Level of Assistance Maximum assistance -BS -- -- Dynamic Sitting-Comments max A to maintain balance w/ dynamic weight-shifting - BS -- -- ADLS (WDL) X -BS X -AK X -EL Feeding: Where assessed Supine, bed -BS -- Sitting;Chair -EL Feeding: Equipment utilized Built up utensils -BS -- -- Feeding: Level of assistance Maximum Assist -BS -- Maximum Assist -EL Feeding: Assistance with Manipulation of containers;Beverage management;Cutting food;Balance;Safety-BS -- Manipulation of containers;Scooping food;Hand to mouth;Appropriate use of utensils -EL Grooming: Where assessed Supine, bed -BS Supine, bed -AK Chair -EL Grooming: Level of assistance Maximum Assist -BS Maximum Assist mod A for task, unable to tolerate in standing -AK Maximum Assist -EL Grooming: Assistance with Teeth care;Manipulation of containers;Reaching all areas of head/face;Balance;Safety -BS Increased time to complete;Manipulation of containers;Reaching all areas of head/face;Balance;Safety -AK Increased time to complete;Use of adaptive equipment;Manipulation of containers;Reaching all areas of head/face -EL LE Dressing: Where assessed Supine, bed -BS -- Supine, bed -EL LE Dressing: Level of assistance Dependent -BS -- Dependent -EL Toileting: Where assessed Supine, bed -BS Supine, bed -AK Supine, bed -EL Toileting: Level of assistance Dependent -BS Dependent -AK Dependent -EL Toileting: Assistance with -- -- all components -AK -- Bed Mobility -- Yes -AK Yes -EL Bed Mobility From 1 Supine -BS Supine -AK Supine -EL Bed Mobility Type 1 To and from -BS To and from -AK To and from -EL Bed Mobility to 1 Rolling right;Rolling left -BS Rolling right;Rolling left -AK Rolling right;Rolling left -EL Level of Assistance 1 Maximum Assist -BS Maximum Assist -AK Maximum Assist -EL Bed Mobility Comments 1 max A force production, LE management, controlled descent -BS max A for force production and BLE management -AK Max A for trunk rotation, BLE management, and force production -EL Bed Mobility From 2 Supine -BS Supine -AK Supine -EL Bed Mobility Type 2 To and from -BS To and from -AK To -EL Bed Mobility to 2 Edge of Bed -BS Edge of Bed -AK Edge of Bed -EL Level of Assistance 2 Maximum Assist -BS Maximum Assist -AK Maximum Assist -EL Bed Mobility Comments 2 via logroll; max A force production, LE management, trunk elevation/descent-BS max A for trunk elevation/ controlled descent, BLE management, and repositioning; VC for technique and safety -AK Max A for trunk elevation, BLE management, and force production -EL Transfer No increased pain sitting at EOB, pt requests to return to supine -BS No 2/2 pt declined after toileting -AK Yes -EL Transfer From 1 -- -- Bed -EL Transfer Type 1 -- -- To -EL Transfer to 1 -- -- Chair with arms -EL Technique 1 -- -- Lateral -EL Transfer Device 1 -- -- Mechanical device -EL Transfer Level of Assistance 1 -- -- Dependent -EL Trials/Comments 1 -- -- Use of frantz -EL Toilet Transfer From -- -- Bed -EL Toilet Transfer Type -- -- To -EL Toilet Transfer to -- -- Standard bedside commode simulated with chair -EL Toilet Transfer Technique -- -- Lateral -EL Toilet Transfer: Equipment -- -- Mechanical Device -EL Toilet Transfers -- -- Dependent -EL Toilet Transfers Comments -- -- Use of frantz -EL ROM/STRENGTH -- Yes -AK -- R Motion All Joints -- AAROM;PROM -AK -- R Position All Joints -- Supine -AK -- R Weight/Reps/Sets All Joints -- 10 reps x1 set- all joints -AK -- L Motion All Joints -- AAROM;PROM -AK -- L Position All Joints -- Supine -AK -- L Weight/Reps/Sets All Joints -- 10 reps x1 set - all joints -AK -- RUE Assessment -- -- X -EL RUE Comments -- -- Decreased buckle stringer strength noted -EL LUE Assessment -- -- X -EL LUE Comments -- -- Decreased buckle stringer strength noted -EL Arousal/Alertness Alert;Appropriate responses to stimuli -BS Alert;Appropriate responses to stimuli-AK Alert;Appropriate responses to stimuli -EL Attention Span Attends with cues to redirect -BS Attends with cues to redirect;Distractability -AK Attends with cues to redirect -EL Memory Decreased short term memory per SBT -BS -- Decreased short term memory -EL Current communication Appears Intact -BS Appears Intact -AK Appears Intact -EL Orientation Oriented X4 (person, place, time, situation) -BS Oriented X4 (person, place, time, situation) -AK Oriented X4 (person, place, time, situation) -EL Following Commands Follows all commands and directions without difficulty -BS Follows multistep commands with repetition -AK Follows multistep commands with repetition -EL Safety Judgment Decreased awareness of need for assistance -BS Decreased awareness of need for safety -AK Decreased awareness of need for safety -EL Awareness of Errors Assistance required to identify errors made;Assistance required to correct errors made -BS Assistance required to identify errors made;Assistance required to correct errors made -AK Assistance required to correct errors made;Assistance required to identify errors made -EL Insight Decreased awareness of deficits -BS Decreased awareness of deficits -AK Decreased awarenessof deficits -EL Problem Solving Assistance required to identify errors made;Assistance required to generate solutions;Assistance required to implement solutions -BS Assistance required to identify errors made;Assistance required to generate solutions -AK Assistance required to implement solutions;Assistance required to generate solutions;Assistance required to identify errors made -EL Compliance/Behavior Easy to engage -BS Easy to engage -AK Easy to engage -EL Perseveration Not present -BS -- Present - verbal -EL Comments Pt would continue to benefit from skilled OT to increase strength, endurance and indep with ADLs. -BS Increased time required for trice care and toileting. RLE became increasingly rigid aftertoileting and bed mobility making sitting EOB more difficult for the pt. Pt would continue to benefit from skilled OT to increase strength, endurance and indep with ADLs. -AK -- Putting on and taking off regular lower body clothing 1 -BS 1 -AK 1 -EL Bathing 1 -BS 1 -AK 1 -EL Toileting 1 -BS 1 -AK 1 -EL Putting on and taking off upper body clothing 1 -BS 1 -AK 1 -EL Personal Grooming 2 -BS 2 -AK 2 -EL Eating Meals 2 -BS 2 -AK 2 -EL Total Score (range 6-24) 8 -BS 8 -AK 8 -EL Score Interpretation 22.86 -BS 22.86 -AK 22.86 -EL Safe Environment End of Therapy Session Patient left supine in bed;Bed alarm in place and activated;RN notified;Call light within reach;Overbed table within reach -BS Patient left supine in bed;Bed alarm in place and activated;RN notified;Call light within reach;Overbed table within reach -AK Patient left in chair;RN notified;Overbed table within reach;Call light within reach -EL Problem List Decreased upper extremity range of motion;Decreased upper extremity strength;Decreasedsafe judgment during ADL;Decreased cognition;Decreased endurance;Visual deficit;Decreased functional mobility;Decreased ADL independence;Decreased IADL independence;Decreased UE function;Decreased trunk control for functional activities -BS Decreased upper extremity range of motion;Decreased upper extremity strength;Decreased safe judgment during ADL;Decreased cognition;Decreased endurance;Decreased balance;Decreased functional mobility;Decreased ADL independence;Decreased fine motor control;Dec reased gross motor control;Decreased trunk control for functional activities;Pain -AK Decreased upper extremity range of motion;Decreased upper extremity strength;Decreased safe judgment during ADL;Decreased cognition;Decreased endurance;Decreased balance;Decreased functional mobility;Decreased fine motor control;Decreased gross motor control;Decreased ADL independence;Decreased IADL independence;Decreased UE function;Decreased trunk control for functional activities;Decreased response to enviro nment;Poor/Decreased functional positioning;Decreased upper extremity function;Decreased feeding skills;Decreased ROM;Pain -EL Barriers to Discharge Current Mobility Status;Current ADL Status;Decreased caregiver support;Cognition;Decreased safety awareness -BS Current Mobility Status;Current ADL Status -AK Current Mobility Status;Current ADL Status;Decreased caregiver support;Decreased safety awareness;Cognition -EL Barrier Comments fall risk -BS fall risk -AK fall risk -EL Plan Continue with current plan;If this is the last note, consider this the discharge summary -BS Continue with current plan;If this is the last note, consider this the discharge summary -AK Continuewith current plan;If this is the last note, consider this the discharge summary -EL OT Recommendation Residential Facility -BS Residential Facility -AK Residential Facility -EL Patient at high risk for Falls;Readmission;Injury due to decreased ability to care for self;Injury due to reduced functional status;Injury due to impaired cognition;Injury due to balance deficits;Injury at home as patient has not returned to prior level of function;Developing impaired skin integrity;Prolonged dependence for self care tasks;Developing secondary complications: poor health management;Difficulty maintaining orthopedic restrictions -BS Falls;Readmission;Injury due to decreased ability to care for self;Injury due to reduced functional status;Injury due to impaired cognition;Injury due to balance deficits;Injury at home as patient has not returned to prior level of function - AK Falls;Readmission;Injury due to balance deficits;Injury due to impaired cognition;Injury due to reduced functional status;Injury due to decreased ability to care for self -EL Recommend SNF due to Risk of injury at home;Unable to safely care for self in the home;Skilled therapy needed to address care for self in the home;Skilled therapy needed to address functional deficits;Skilled therapy needed for patient to return to prior level of independence -BS Risk of injury at home;Unable to safely care for self in the home;Skilled therapy needed to address care for self in the home;Skilled therapy needed to address functional deficits;Skilled therapy needed for patient to return to prior level of independence -AK Risk of injury at home;Unable to safely care for self in the home;Skilled therapy needed to address care for self in the home;Skilled therapy needed to address functional deficits;Skilled therapy needed for patient to return to prior level of independence -EL OT Frequency during current admission 5-7x/wk -BS 5-7x/wk -AK 5-7x/wk -EL Treatment/Interventions during current admission ADL/IADL retraining;Balance Training;Bed mobility;Cognitive retraining;Compensatory technique education;Endurance training;Functional activity;Functional mobility training;Functional transfer training;Parent/caregiver training and education;Strengthening;Therapeutic activity;Therapeutic exercise -BS ADL/IADL retraining;Balance Training;Bed mobility;Cognitive retraining;Compensatory technique education;Endurance training;Equipment eval/education;Functional activity;Functional mobility training;Functional transfer training;Strengthening;Therapeutic activity;Therapeutic exercise;Transfer training -AK Balance Training;Bed mobility;ADL/IADL retraining;Endurance training;Functional activity;Functional mobility training;Functional transfer training;Strengthening;Therapeutic activity;Therapeutic exercise;Transfer training -EL Progress during current admission Slow progress, medical status limitations -BS Progressing toward goals -AK Progressing toward goals -EL OT - Next Appointment 09/29/23 -BS 09/28/23 -AK 09/24/23 -EL Start Time 1004 -BS 1452 -AK 0845 -EL Stop Time 1047 -BS 1540 -AK 0910 -EL Time Calculation (min) 43 min -BS 48 min -AK 25 min -EL User Moran (r) = Recorded By, (t) = Taken By, (c) = Cosigned By Initials Name Effective Dates An Jovel, OT 03/02/23 - Hannah No, OT 11/07/22 - Greer Wheat, OT 02/20/22 - OT Notes 09/28/2023 11:06 AM Progress Notes signed by An Youngblood, OT , PT Eval and Treat Last 72 Hours PT Evaluation Row Name 09/25/23 1500 PT Missed Visit Reason -- large amount of liquid stool, PT unable to return today - User Moran (r) = Recorded By, (t) = Taken By, (c) = Cosigned By Initials Name Effective Dates Raven Rothman, PT 06/15/19 - PT TREATMENT (Last 168 Hours) PT Treatment Row Name 09/28/23 1426 PT Last Visit Session Type Treatment -MS (r) MH (c) Safe Environment Arm band checked;Patient found in supine;Session completed bedside;Gait belt utilized for all out of bed mobility -MS (r) MH (c) Subjective Agreeable to Therapy -MS (r) MH (c) Family/Caregiver Present No -MS (r) MH (c) Precautions Precautions Cervical spine;Fall risk -MS (r) MH (c) Weight Bearing Restrictions Yes -MS (r) MH (c) RLE Weight Bearing WBAT -MS (r) MH (c) LLE Weight Bearing NWB -MS (r) MH (c) Braces/Orthoses Cervical collar;Other [place], SLS LLE -MS (r) MH (c) Precaution Handout Issued No -MS (r) MH (c) Precaution Comments PT reviewd precautions with pt who verbalized understanding -MS (r) MH (c) Activity Tolerance Activity Tolerance Comments Nancy -MS (r) MH (c) Cognition Arousal/Alertness Alert;Appropriate responses to stimuli -MS (r) MH (c) Orientation Oriented X4 (person, place, time, situation) -MS (r) MH (c) Following Commands Follows all commands and directions without difficulty -MS (r) MH (c) Compliance/Behavior Easy to engage -MS (r) MH (c) Balance Balance Yes -MS (r) MH (c) Static Sitting Balance Static Sitting-Balance Support Bilateral upper extremity supported;Feet unsupported;Posterior support posterior support from PT -MS (r) MH (c) Static Sitting-Sitting Surface Bed -MS (r) MH (c) Static Sitting-Level of Assistance Maximum assistance -MS (r) MH (c) Static Sitting-Comment/# of Minutes assist for maintaining upright position in sitting. Verbal cuesfor weight shifting. Pt able to weight shift with cues but unable to maintain shift without assist from PT -MS (r) MH (c) Static Standing Balance Static Standing-Balance Support Bilateral upper extremity supported on 2 PT -MS (r) MH (c) Static Standing-Standing Surface Floor -MS (r) MH (c) Static Standing-Level of Assistance Maximum assistance of 2 -MS (r) MH (c) Static Standing-Comment/# of Minutes assist to maintain upright positioning and maintian NWB LLE. -MS (r) MH (c) Bed Mobility Bed Mobility Yes -MS (r) MH (c) Bed Mobility 1 Bed Mobility From 1 Supine -MS (r) MH (c) Bed Mobility Type 1 To -MS (r) MH (c) Bed Mobility to 1 Edge of bed -MS (r) MH (c) Level of Assistance 1 Maximum Assist;Moderate verbal cues -MS (r) MH (c) Bed Mobility Comments 1 assist to maneauver B LE and force production to raise trunk off bed. Assist to scoot forward to EOB. Verbal cues for technique and hand positioning. Pt required assist for hand placement 2/2 decreased ROM in BUE -MS (r) MH (c) Transfers Transfer Yes -MS (r) MH (c) Transfer 1 Transfer From 1 Bed;Sit -MS (r) MH (c) Transfer Type 1 To -MS (r) MH (c) Transfer to 1 Chair with arms;Sit -MS (r) MH (c) Technique 1 Stand pivot;To right -MS (r) MH (c) Transfer Device 1 No device;Hand held assist x2 PT -MS (r) MH (c) Transfer Level of Assistance 1 Maximum Assist;Moderate verbal cues of 2 -MS (r) MH (c) Trials/Comments 1 assist for force production, steadying to maintain upright positioning, pivot andassist to maintain NWB on LLE during pivot. Verbal cues for technique and positioning -MS (r) MH (c) Transfers 2 Transfer From 2 Sit;Chair with arms -MS (r) MH (c) Transfer Type 2 To and from -MS (r) MH (c) Transfer to 2 Stand -MS (r) MH (c) Technique 2 Sit to stand;Stand to sit -MS (r) MH (c) Transfer Device 2 No device;Hand held assist of 2 PT -MS (r) MH (c) Transfer Level of Assistance 2 Maximum Assist;Moderate verbal cues of 2 -MS (r) MH (c) Trials/Comments 2 2 STS performed. Assist with force production and maintaining upright positioning. Assist to control descent into chair. Verbal cues for positioning -MS (r) MH (c) Ambulation Functional Ambulation Category 0 -MS (r) MH (c) Ambulation No -MS (r) MH (c) Basic Mobility - 6 Click How much difficulty does the patient have: Turning over in bed 2 -MS (r) MH (c) How much difficulty does the patient currently have: Sitting down and standing up from a chair witharms? 2 -MS (r) MH (c) How much difficulty does the patient have: Moving from lying on back to sitting on the side of the bed? 2 -MS (r) MH (c) How much difficulty does the patient have: Moving to and from a bed to a chair including wheelchair? 2 -MS (r) MH (c) How much help does the patient currently need: Walk in hospital room? 1 -MS (r) MH (c) How much help from another person does the patient currently need: Climbing 3-5 steps with a railing? 1 -MS (r) NIKOS (c) Total 6 Click Score (range 6-24) 10 -MS Score Interpretation 28.13 -MS (r) NIKOS (c) Safe Environment End of Therapy Session Safe Environment End of Therapy Session Patient left in recliner;RN notified;Chair alarm in place and activated;Call light within reach;Overbed table within reach -MS (r) NIKOS (c) Assessment Prognosis Good -MS (r) NIKOS (c) Problem List Decreased strength;Gait deviations;Decreased range of motion;Decreased endurance;Impaired balance;Decreased mobility;Pain -MS (r) MH (c) Barriers to Discharge Current Mobility Status;Decreased caregiver support;Home environment challenged -MS (r) MH (c) Plan Plan Continue with current plan;If this is the last note, consider this the discharge summary -MS (r) NIKOS (c) Recommendation/Plan PT Recommendation/Plan Residential Facility -MS (r) NIKOS (c) Patient at high risk for Falls;Readmission;Injury due to decreased ability to care for self;Injury due to reduced functional status;Injury due to balance deficits;Injury at home as patient has not returned to prior level of function;Prolonged dependence for self care tasks -MS (r) MH (c) Recommend SNF due to Risk of injury at home;Unable to safely care for self in the home;Skilled therapy needed to address functional deficits;Skilled therapy needed for patient to return to prior level of independence;Skilled therapy needed to address care for self in the home -MS (r) NIKOS (c) PT Recommendation/Plan Comments pt agreeable with PT POC -MS (r) NIKOS (c) PT Frequency during current admission 5-7x/wk -MS (r) NIKOS (c) Treatment/Interventions during current admission Balance Training;Bed mobility;Positioning;Range ofmotion;Strengthening;Therapeutic activity;Therapeutic exercise;Transfer training -MS (r) NIKOS (c) Progress during current admission Progressing toward goals -MS (r) NIKOS (c) Time Calculation Start Time 1426 -MS (r) NIKOS (c) Stop Time 1520 -MS (r) NIKOS (c) Time Calculation (min) 54 min -MS User Moran (r) = Recorded By, (t) = Taken By, (c) = Cosigned By Initials Name Effective Dates MS Dee Dee, Carmencita CAlon 07/27/23 - Daniel Nichole, PT 08/22/21 - PT Notes Notes from 09/27/23 through 09/29/23 No notes of this type exist for this encounter. , Wound Info Only Active Wound Assessment Active Wound / Pressure injury / Thao / Negative Pressure Wound / Incision Wound 09/20/23 Skin tear Right Calf Date First Assessed 09/20/23 Site Calf Time First Assessed 1425 Days 8 Present on Hospital Admission: Yes Wound Type: Skin tear Location Orientation: Right Assessments Row Name 09/28/23 1930 09/28/23 1019 09/27/23 1928 09/27/23 1600 09/27/23 1200 Wound Status Evolving Evolving -- Healing Healing Site Assessment -- Color appropriate for ethnicity;Clean;Dry -- Clean;Color appropriate for ethnicity Clean;Color appropriate for ethnicity Trice-wound Assessment -- Intact;Dry -- Dry Dry Margins -- Unattached edges -- Defined edges Defined edges Closure -- Open to air -- Open to air Open to air Drainage Amount -- -- -- None None Drainage Odor -- -- -- No odor No odor Wound 09/21/23 MASD (Moisture associated skin damage) Gluteal Cleft (vertical) Date First Assessed 09/21/23 Site Gluteal Cleft (vertical) Time First Assessed 0900 Days 7 Wound Type: MASD (Moisture associated skin damage) Assessments Row Name 09/28/23 1930 09/28/23 1019 09/27/23 1928 09/27/23 1600 09/27/23 1200 Wound Status Evolving Evolving -- Evolving Evolving Site Assessment Clean;[place] Clean;Color appropriate for ethnicity;Dry -- Clean Clean Trice-wound Assessment Dry;Intact Intact;Dry -- Dry;Intact;Blanchable erythema Dry;Intact;Blanchableerythema Margins -- -- -- Unattached edges Unattached edges Closure -- -- -- Open to air Open to air Drainage Amount None -- -- None None Drainage Odor -- -- -- No odor No odor Dressing Status Open to Air -- -- Clean/Dry/Intact Clean/Dry/Intact Dressing Moisture barrier Foam -- Foam Foam Interventions Cleansed -- -- -- -- Surgical Site 09/16/23 Left Leg Date First Assessed 09/16/23 Site Leg Time First Assessed 1305 Days 12 Location Orientation: Left Assessments Row Name 09/28/23 1930 09/28/23 1019 09/27/238 09/27/23 1600 09/27/23 1200 Site Assessment RAFA RAFA RAFA RAFA RAFA Trice-wound Assessment RAFA RAFA RAFA RAFA RAFA Closure Unable to assess -- Unable to assess Unable to assess Unable to assess Drainage Amount None -- RAFA RAFA RAFA Dressing Status Clean, dry, intact -- Clean, dry, intact -- -- Dressing Christopher wrap -- Christopher wrap -- -- Surgical Site 09/20/23 Neck Bacitracin, Telfa, 4x4s, Tegaderm Date First Assessed 09/20/23 Site Neck Time First Assessed 1320 Days 8 Wound Description (Comments): Bacitracin, Telfa, 4x4s, Tegaderm Assessments Row Name 09/28/23 1930 09/28/23101809/27/23192709/27/23 1600 09/27/23 1200 Site Assessment RAFA RAFA RAFA RAFA RAFA Trice-wound Assessment RAFA RAFA RAFA RAFA RAFA Closure Unable to assess -- Unable to assess Unable to assess Unable to assess Drainage Amount None -- None None None Dressing Status -- -- Clean, dry, intact -- -- * Plan of Care - Caroline Jarquin, RN - 09/29/2023 8:30 AM CDT 09/28/23 [facility] Discharge Planning Support System Children (daughter Jennifer [phone]) Anticipated discharge level of care senior living facility Does the patient need discharge transport arranged? Yes Type of Transportation Ambulance Has discharge transport been arranged? No Discharge Transportation Communication Mode of transport has been discussed with the patient/family. All are agreeable to the plan and understand their responsibilities to ensure the safe transfer. No further CM/SW intervention is anticipated at this time. Post Acute Care Plan Home Care Services N/A OP Services N/A DME N/A Post Acute Care Facility N/A CM Progression of Care Update: CM called by daughter Jennifer who noted preference is [facility] placement. CM contacted [facility] liaisonJordyn [phone], who noted that facility does not have bed availabilityand have a wait list currently. CM relayed this to patient at bedside who noted to contact Jennifer regarding 2nd choice. Patient also noted frustration that [facility] cannot hold beds and now cannot accept. CM then called Jennifer back who noted 2nd choice as [facility]. CM contacted admissions liaison Margy [phone] who noted that patient is being reviewed again with possible auth start today. CM awaiting further updates. Addendum 0940: Cm called back by Margy noting that patient is accepting and auth is being started. CM relayed to patient daughter, Jennifer. Addendum 1000: CM called by Margy stating patient needs to have a following PCP for possible HH needs on DC from SNF. CM asked Jennifer via text if she'd prefer to set up with someone in her area or for CM to contact [facility] clinic for new PCP. Awaiting response. CM to relayed appt time/date/provider name to Margy when secured. Jennifer noted she'd prefer to [facility] clinic. CM messaged via [employer] and secured appt for 10/[address], [facility], [address]. CM relayed to Margy. Per Medical Chart/Rounds/IDR: 78 year old female presenting s/p GLF resulting in L tib/fib fractures, C3-4 spinal stenosis s/p cervical fusion with instrumentation and decompression. Patient is medically ready for DC. ADD: 09/29 Discharge Barriers: SNF acceptance/auth initiation Education Needs Identified (plan): None identified at this time. F/U Appointments: per medical team Patient's Identified Problem/Goal Problem:?Ensure acute medical needs are met and that patient has a safe discharge plan. Goal:?Secure a discharge plan that patient/family are agreeable with?and ensure patient has continuum of care. Patient and/or family are agreeable with plan. pmo project manager will continue to follow and assist with discharge planning as needed. If any further discharge needs arise, please contact the covering pillowcase cutter. MINESH Vrenon system configuration specialist * Plan of Care - Blake Joseph RN - 09/29/2023 6:02 AM CDT Goals: Problem: Skin Integrity Impairment Risk Goal: Mobility will improve Outcome: Progressing Goal: Understanding of ways to prevent future skin breakdown will improve Outcome: Progressing Goal: Nutritional status will improve Outcome: Progressing Goal: Risk for impaired skin integrity will decrease Outcome: Progressing Problem: Discharge Planning Goal: Understanding discharge needs will improve Outcome: Progressing Problem: General Patient Education Goal: Knowledge of disease process, condition or treatment will be improved Outcome: Progressing Problem: Physical Regulation Goal: Will remain free from infection Outcome: Progressing Problem: Safety Goal: Free from injury or harm Outcome: Progressing Problem: Fall Risk Goal: Ability to state ways to decrease the risk of falls will improve Outcome: Progressing Goal: Will remain free from falls Outcome: Progressing Goal: Will remain free from injury from falls Outcome: Progressing Problem: Restraint for Violent/Self-Destructive Behavior Goal: Remains free from injury from restraints Outcome: Progressing Problem: Lack of Knowledge Goal: Ability to develop a pain control plan will improve Outcome: Progressing Problem: Medication Goal: Satisfaction with pain management medication regimen will improve Outcome: Progressing Problem: Sensory Goal: Ability to identify factors that increase pain levels will improve while working to decrease the patient's pain levels Outcome: Progressing Clinical Goals for the Shift: VSS, pain control, safety, mantain skin intgerity, q2 turns, rest Senior Living Patient Centered Goal for Treatment: safety Summary: VSS, pain improves w/ scheduled meds and repositioning. Patient is progressing towards allgoals. * Plan of Care - Nancy Torrez - 09/28/2023 11:35 AM CDT Problem: Skin Integrity Impairment Risk Goal: Mobility will improve Outcome: Progressing Goal: Understanding of ways to prevent future skin breakdown will improve Outcome: Progressing Goal: Nutritional status will improve Outcome: Progressing Goal: Risk for impaired skin integrity will decrease Outcome: Progressing Problem: Discharge Planning Goal: Understanding discharge needs will improve Outcome: Progressing Problem: General Patient Education Goal: Knowledge of disease process, condition or treatment will be improved Outcome: Progressing Problem: Physical Regulation Goal: Will remain free from infection Outcome: Progressing Problem: Safety Goal: Free from injury or harm Outcome: Progressing Problem: Fall Risk Goal: Ability to state ways to decrease the risk of falls will improve Outcome: Progressing Goal: Will remain free from falls Outcome: Progressing Goal: Will remain free from injury from falls Outcome: Progressing Problem: Restraint for Violent/Self-Destructive Behavior Goal: Remains free from injury from restraints Outcome: Progressing Problem: Lack of Knowledge Goal: Ability to develop a pain control plan will improve Outcome: Progressing Problem: Medication Goal: Satisfaction with pain management medication regimen will improve Outcome: Progressing Problem: Sensory Goal: Ability to identify factors that increase pain levels will improve while working to decrease the patient's pain levels Outcome: Progressing Goals: Clinical Goals for the Shift: pain control, safety, and comfort Senior Living Patient Centered Goal for Treatment: safety Summary: pt doing well today. Pt worked with pt this morning. Pts pain controlled with PRN pain medications * Plan of Care - Caroline Jarquin RN - 09/28/2023 9:00 AM CDT 09/28/23 [facility] Discharge Planning Support System Children (daughter Jennifer [phone]) Anticipated discharge level of care senior living facility Does the patient need discharge transport arranged? Yes Type of Transportation Ambulance Has discharge transport been arranged? No Discharge Transportation Communication Mode of transport has been discussed with the patient/family. All are agreeable to the plan and understand their responsibilities to ensure the safe transfer. No further CM/SW intervention is anticipated at this time. Post Acute Care Plan Home Care Services N/A OP Services N/A DME N/A Post Acute Care Facility N/A CM Progression of Care Update: CM met with patient at bedside to update that multiple SNFs are accepting, CM just needs to speak with patient daughter Jennifer regarding choice. Patient agreeable. Addendum 1000: CM called daughter Jennifer who noted that she will be looking into all accepting SNFs and to follow up with CM on preference. Addendum 1200: CM left a VM by Jennifer noting that she'd like patient to have referral send to [facility]. Cm called Jennifer back describing how insurance would likely not accept coverage of patient due to rec for SNF. Jennifer stated she'd still like the referral to be sent. CM sent referral via e[employer], awaiting response. Jennifer noted that she will follow up with CM on SNF preference. Addendum 1330: CM contacted by Mellissa with [facility] via [employer] message noting that patient will need to be seen by therapy and be able to tolerate getting out of bed. She also stated that patient isnot likely to be independent 100% based on current notes in a 2 week rehab stay so patient would need a designated caregiver for d/c plan to be considered for inpatient rehab level of care. CM to relay to patient daughter with follow up call. Addendum 1500: CM called patient alirio Rodriguez with VM left regarding SNF choice and IPR requirements. Awaiting response. Per Medical Chart/Rounds/IDR: 78 year old female presenting s/p GLF resulting in L tib/fib fractures, C3-4 spinal stenosis s/p cervical fusion with instrumentation and decompression. Patient is medically ready for DC. ADD: 09/28 Discharge Barriers: SNF acceptance; daughter preference decision Education Needs Identified (plan): None identified at this time. F/U Appointments: per medical team Patient's Identified Problem/Goal Problem:?Ensure acute medical needs are met and that patient has a safe discharge plan. Goal:?Secure a discharge plan that patient/family are agreeable with?and ensure patient has continuum of care. Patient and/or family are agreeable with plan. pmo project manager will continue to follow and assist with discharge planning as needed. If any further discharge needs arise, please contact the covering pillowcase cutter. MINESH Vernon RN Case Manager * Plan of Care - Abdi Peterson RN - 09/28/2023 4:17 AM CDT Goals: Clinical Goals for the Shift: pain control, safety, and comfort Senior Living Patient Centered Goal for Treatment: safety Summary: Problem: General Patient Education Goal: Knowledge of disease process, condition or treatment will be improved Outcome: Ongoing Problem: Safety Goal: Free from injury or harm Outcome: Progressing Problem: Skin Integrity Impairment Risk Goal: Mobility will improve Outcome: Ongoing Problem: Fall Risk Goal: Will remain free from falls Outcome: Progressing Problem: Lack of Knowledge Goal: Ability to develop a pain control plan will improve Outcome: Ongoing Problem: Medication Goal: Satisfaction with pain management medication regimen will improve Outcome: Progressing * Plan of Care - Priscila Crespo RN - 09/27/2023 4:52 PM CDT Goals: Clinical Goals for the Shift: pain control, safety, and comfort Senior Living Patient Centered Goal for Treatment: safety Summary: * Plan of Care - Abdi Peterson RN - 09/27/2023 4:53 AM CDT Goals: Clinical Goals for the Shift: pain/safety management, vss, I&O, promote comfort/rest Senior Living Patient Centered Goal for Treatment: safety Summary: Problem: Safety Goal: Free from injury or harm Outcome: Progressing Problem: Skin Integrity Impairment Risk Goal: Mobility will improve Outcome: Progressing Goal: Nutritional status will improve Outcome: Ongoing Problem: Fall Risk Goal: Will remain free from falls Outcome: Progressing Problem: Lack of Knowledge Goal: Ability to develop a pain control plan will improve Outcome: Ongoing Problem: Medication Goal: Satisfaction with pain management medication regimen will improve Outcome: Progressing Problem: Sensory Goal: Ability to identify factors that increase pain levels will improve while working to decrease the patient's pain levels Outcome: Ongoing * Plan of Care - Priscila Crespo RN - 09/26/2023 5:05 PM CDT Goals: Clinical Goals for the Shift: pain control, comfort Senior Living Patient Centered Goal for Treatment: safety Summary: Patient's pain has been controlled and managed by muscle relaxer, Tylenol, and Gabapentin.Education has been given entailing what each medication does and how their potential outcomes. Swelling in patient's right arm decreased after removal of IV. Arm is elevated and returned back to normal color with some bruising. * Plan of Care - Dede Sahni RN - 09/26/2023 3:04 AM CDT Goals: Clinical Goals for the Shift: pain control Senior Living Patient Centered Goal for Treatment: safety Summary: Problem: Skin Integrity Impairment Risk Goal: Mobility will improve Outcome: Progressing Goal: Understanding of ways to prevent future skin breakdown will improve Outcome: Progressing Goal: Nutritional status will improve Outcome: Progressing Goal: Risk for impaired skin integrity will decrease Outcome: Progressing * Plan of Care - Arelis Cisse RN - 09/25/2023 5:05 PM CDT Problem: Skin Integrity Impairment Risk Goal: Mobility will improve Outcome: Progressing Goal: Understanding of ways to prevent future skin breakdown will improve Outcome: Progressing Goal: Nutritional status will improve Outcome: Progressing Goal: Risk for impaired skin integrity will decrease Outcome: Progressing Goals: Clinical Goals for the Shift: pain control Senior Living Patient Centered Goal for Treatment: safety Summary: VSS, I&Os, neuro/vasc check, safety, comfort, pain management, medications * Plan of Care - Caroline Jarquin RN - 09/25/2023 8:40 AM CDT 09/25/23 1018 Discharge Planning Support System Children (daughter Jennifer [phone]) Anticipated discharge level of care senior living facility Does the patient need discharge transport arranged? Yes Type of Transportation Ambulance Has discharge transport been arranged? No Discharge Transportation Communication Mode of transport has been discussed with the patient/family. All are agreeable to the plan and understand their responsibilities to ensure the safe transfer. No further CM/SW intervention is anticipated at this time. Post Acute Care Plan Home Care Services N/A OP Services N/A DME N/A Post Acute Care Facility N/A CM Progression of Care Update: Skin Tanner noted patient has been recommended for SNF by PT/OT. pmo project manager met with the patient at bedside to discuss recommendations by therapy and to work on a potential discharge disposition plan. Skin Tanner provided education to patient on longterm facilities and the rehabilitation process. Patient reported she was interested in short term SNF placement for rehabilitation. pmo project manager provided a list of SNF to patient and patient noted she would like CM to call daughter Jennifer for placement decisions. CM to call after IDR. Addendum 1145: CM called patient daughter Jennifer, as requested, and spoke concerning SNF recommendation. Jennifer noted that she'd like CM to send referrals as close to patient home as possible. CM sent referrals and to update patient daughter with accepting/denying facilities. Per Medical Chart/Rounds/IDR: 78 year old female presenting s/p GLF resulting in L tib/fib fractures, C3-4 spinal stenosis s/p cervical fusion with instrumentation and decompression. ADD: TBD pending IDR Discharge Barriers: None identified at this time. Education Needs Identified (plan): None identified at this time. F/U Appointments: per medical team Patient's Identified Problem/Goal Problem:?Ensure acute medical needs are met and that patient has a safe discharge plan. Goal:?Secure a discharge plan that patient/family are agreeable with?and ensure patient has continuum of care. Patient and/or family are agreeable with plan. pmo project manager will continue to follow and assist with discharge planning as needed. If any further discharge needs arise, please contact the covering pillowcase cutter. MINESH Vernon system configuration specialist * [facility] Note - Caroline Jarquin RN - 09/25/2023 7:54 AM CDT Images from the original note were not included. Patient Information: Patient Header Patient Information Patient Name: AIDEE DOMÍNGUEZ Date of 1945 (78 years) Sex: Female , OT Eval and Treat Last 72 Hours OT Evaluation Row Name 09/21/23 1414 09/18/23 2812 Chart Reviewed -- Yes -CD Session Type -- Evaluation -CD OT Received On -- 09/18/23 -CD Safe Environment -- Arm band checked;Patient found in supine;Gait belt not utilized, see comment noOOB mobility -CD Subjective -- Agreeable to Therapy -CD OT Missed Visit Reason Patient declined pt reports fatigue after recently finishing switching beds with PT; will continue to follow and evaluate as able - DR -- Family/Caregiver Present -- No -CD Occupational Therapy-Patient Goal -- Agreeable to POC -CD Precautions -- Fall risk -CD Weight Bearing Restrictions -- Yes -CD LLE Weight Bearing -- NWB -CD Braces/Orthoses -- Other SLS -CD Precaution Comments -- Reviewed with pt -CD Type of Home -- Condo/Townhome/[place] -CD Home Layout -- One level -CD Home Access -- Stairs to enter without rails -CD Entrance Stairs-Rails -- None -CD Entrance Stairs-Number of Steps -- 1 -CD Bathroom Shower/Tub -- Tub/shower unit -CD Bathroom Toilet -- Raised -CD Bathroom Equipment -- Grab bars in shower/tub;Grab bars around toilet -CD Home Mobility Equipment-Available -- 4-Wheeled walker;Single point cane -CD Home Mobility Equipment-Currently Using -- 4-Wheeled walker -CD Home ADL Equipment-Available -- None -CD Home ADL Equipment-Currently Using -- None -CD Level of [place] -- Independent with ADLs;Independent functional transfers;Independent with ambulation;Independent with homemaking with ambulation -CD Lives With -- Alone -CD Receives Help From -- Spouse/Significant other [employer] FARMER from daughter -CD Driving -- Yes -CD Mode of Transportation -- Car -CD ADL Assistance -- Independent -CD Instrumental ADL (IADL) Assistance -- Independent -CD Vocational/Occupation -- Retired -CD Type of Occupation -- [employer] -CD Fall within the last 6 months -- Yes -CD Fall within the last 6 months comment -- 4 at home -CD ADLS (WDL) -- X -CD Feeding: Where assessed -- Sitting in bed -CD Feeding: Level of assistance -- Dependent -CD Feeding: Assistance with -- Beverage management -CD Response to foods trialed -- Pt unable to grasp cup and bring to mouth. -CD Grooming: Where assessed -- Supine, bed -CD Grooming: Level of assistance -- Dependent -CD Grooming: Assistance with -- -- all parts of task -CD LE Dressing: Where assessed -- Supine, bed -CD LE Dressing: Level of assistance -- Dependent -CD LE Dressing: Assistance with -- -- all parts of task -CD Toileting: Where assessed -- Supine, bed -CD Toileting: Level of assistance -- Dependent -CD Toileting: Assistance with -- -- all parts of task -CD Toilet Transfers -- Not tested -CD Toilet Transfers Comments -- NT 2/2 safety concerns -CD Pain Assessment -- No/denies pain -CD Arousal/Alertness -- Alert -CD Attention Span -- Appears intact -CD Memory -- Decreased short term memory per SBT -CD Current communication -- Appears Intact -CD Orientation -- Oriented X4 (person, place, time, situation) -CD Following Commands -- Follows one step commands without difficulty -CD Safety Judgment -- Decreased awareness of need for assistance -CD Awareness of Errors -- Assistance required to identify errors made;Assistance required to correct errors made -CD Insight -- Decreased awareness of deficits -CD Problem Solving -- Assistance required to identify errors made;Assistance required to generate solutions;Assistance required to implement solutions -CD Compliance/Behavior -- Easy to engage -CD Perseveration -- Not present -CD Cognitive Tests -- Yes -CD What year is it now? -- 0 -CD What month is it now? -- 0 -CD Repeat this name and address after me -- Kirk Goodman [address] [place] [address] -CD Without looking at the clock, tell me what time it is -- 0 -CD Count aloud backwards from 20-1 -- 0 -CD Say the months of the year backwards in reverse order -- 4 -CD Repeat the name and address I asked you to remember -- 8 -CD Short Blessed Total Score -- 12 -CD Short Blessed Comments -- Impaired cognition -CD Balance Tests -- No unable to complete 2/2 safety concerns -CD Balance -- Yes -CD Static Sitting-Balance Support -- Feet supported;No upper extremity supported -CD Static Sitting-Sitting Surface -- Bed -CD Static Sitting-Level of Assistance -- Maximum assistance -CD Static Sitting-Comment/# of Minutes -- assist for trunk support, posterior lean -CD Bed Mobility -- Yes -CD Bed Mobility From 1 -- Supine -CD Bed Mobility Type 1 -- To and from -CD Bed Mobility to 1 -- Edge of bed -CD Level of Assistance 1 -- Maximum Assist -CD Bed Mobility Comments 1 -- assist to move BLE, hips to EOB, and trunk elevation/descent. BLE rigid when moving -CD Bed Mobility From 2 -- Supine -CD Bed Mobility Type 2 -- To and from -CD Bed Mobility to 2 -- Rolling left;Rolling right - Level of Assistance 2 -- Maximum Assist -CD Bed Mobility Comments 2 -- X 2 assist -CD Transfer -- No NT 2 safety concerns -CD RUE Assessment -- X -CD RUE Comments -- PROM WFL, strength 04/17. Reported normal use of UE at PLOF -CD LUE Assessment -- X -CD LUE Comments -- PROM WFL, strength 04/17. Reported normal use of UE at PLOF -CD Putting on and taking off regular lower body clothing -- 1 -CD Bathing -- 1 -CD Toileting -- 1 -CD Putting on and taking off upper body clothing -- 2 -CD Personal Grooming -- 1 -CD Eating Meals -- 1 -CD Total Score (range 6-24) -- 7 -CD Score Interpretation -- 20.13 -CD Safe Environment End of Therapy Session -- Patient left supine in bed;Bed alarm in place and activated;RN notified;Call light within reach;Overbed table within reach -CD Problem List -- Decreased upper extremity range of motion;Decreased upper extremity strength;Decreased safe judgment during ADL;Decreased cognition;Decreased endurance;Visual deficit;Decreased functional mobility;Decreased ADL independence;Decreased IADL independence;Decreased UE function;Decreasedtrunk control for functional activities -CD Barriers to Discharge -- Current Mobility Status;Current ADL Status;Decreased caregiver support;Cognition;Decreased safety awareness -CD Barrier Comments -- fall risk -CD Plan -- Plan of care initiated;If this is the last note, consider this the discharge summary -CD OT Recommendation -- Residential Facility -CD Patient at high risk for -- Falls;Readmission;Injury due to decreased ability to care for self;Injury due to reduced functional status;Injury due to impaired cognition;Injury due to balance deficits;Injury at home as patient has not returned to prior level of function;Developing impaired skin integrity;Prolonged dependence for self care tasks;Developing secondary complications: poor health management;Difficulty maintaining orthopedic restrictions -CD Recommend SNF due to -- Risk of injury at home;Unable to safely care for self in the home;Skilled therapy needed to address care for self in the home;Skilled therapy needed to address functional deficits;Skilled therapy needed for patient to return to prior level of independence -CD OT Frequency during current admission -- 5-7x/wk -CD Treatment/Interventions during current admission -- ADL/IADL retraining;Balance Training;Bed mobility;Cognitive retraining;Compensatory technique education;Endurance training;Functional activity;Functional mobility training;Functional transfer training;Parent/caregiver training and education;Strengthening;Therapeutic activity;Therapeutic exercise -CD OT - Next Appointment -- 09/21/23 -CD OT Evaluation Complete -- Yes -CD Start Time -- 0756 -CD Stop Time -- 0834 -CD Time Calculation (min) -- 38 min -CD User Moran (r) = Recorded By, (t) = Taken By, (c) = Cosigned By Initials Name Effective Dates CD Alicia Mills, OT 12/01/22 - Doris Lam, OT 03/02/23 - OT Treatment Row Name 09/23/23 0845 Session Type Re-Evaluation s/p cervical spinal fusion -EL OT Received On 09/23/23 -EL Safe Environment Arm band checked -EL Subjective Agreeable to Therapy -EL Family/Caregiver Present No -EL Precautions Fall risk -EL Weight Bearing Restrictions Yes -EL LLE Weight Bearing NWB -EL Braces/Orthoses Cervical collar [place]roquois J -EL Precaution Handout Issued No -EL Precaution Comments verbally reviewed precautions with patient -EL Pain Assessment No/denies pain -EL Pain Score 5 - Moderate pain -EL Patient's Stated Pain Goal No pain -EL Pain Type Surgical pain -EL Pain Location Back (Cervical) -EL Pain Orientation Left -EL Pain Interventions Repositioned -EL Balance Tests Yes -EL Sitting Balance 0 -EL Arises 0 -EL Attempts to Arise 0 -EL Immediate Standing Balance (First 5 Seconds) 0 -EL Standing Balance 0 -EL Nudged 0 -EL Eyes Closed 0 -EL Turned 360 Degrees: Steadiness 0 -EL Turned 360 Degrees: Continuity of Steps 0 -EL Sitting Down 0 -EL Balance Score 0 -EL Balance Yes -EL Static Sitting-Balance Support Feet supported;Bilateral upper extremity supported -EL Static Sitting-Sitting Surface Bed -EL Static Sitting-Level of Assistance Moderate assistance -EL Static Sitting-Comment/# of Minutes Mod A for trunk control and support due to posterior and left lateral lean. Pt with increased pain in BUE and difficulty to grasp bed rail to help hold self in upright seated position -EL ADLS (WDL) X -EL Feeding: Where assessed Sitting;Chair -EL Feeding: Level of assistance Maximum Assist -EL Feeding: Assistance with Manipulation of containers;Scooping food;Hand to mouth;Appropriate use of utensils -EL Grooming: Where assessed Chair -EL Grooming: Level of assistance Maximum Assist -EL Grooming: Assistance with Increased time to complete;Use of adaptive equipment;Manipulation of containers;Reaching all areas of head/face -EL LE Dressing: Where assessed Supine, bed -EL LE Dressing: Level of assistance Dependent -EL Toileting: Where assessed Supine, bed -EL Toileting: Level of assistance Dependent -EL Bed Mobility Yes -EL Bed Mobility From 1 Supine -EL Bed Mobility Type 1 To and from -EL Bed Mobility to 1 Rolling right;Rolling left -EL Level of Assistance 1 Maximum Assist -EL Bed Mobility Comments 1 Max A for trunk rotation, BLE management, and force production -EL Bed Mobility From 2 Supine -EL Bed Mobility Type 2 To -EL Bed Mobility to 2 Edge of Bed -EL Level of Assistance 2 Maximum Assist -EL Bed Mobility Comments 2 Max A for trunk elevation, BLE management, and force production -EL Transfer Yes -EL Transfer From 1 Bed -EL Transfer Type 1 To -EL Transfer to 1 Chair with arms -EL Technique 1 Lateral -EL Transfer Device 1 Mechanical device -EL Transfer Level of Assistance 1 Dependent -EL Trials/Comments 1 Use of frantz -EL Toilet Transfer From Bed -EL Toilet Transfer Type To -EL Toilet Transfer to Standard bedside commode simulated with chair -EL Toilet Transfer Technique Lateral -EL Toilet Transfer: Equipment Mechanical Device -EL Toilet Transfers Dependent -EL Toilet Transfers Comments Use of frantz -EL RUE Assessment X -EL RUE Comments Decreased buckle stringer strength noted -EL LUE Assessment X -EL LUE Comments Decreased buckle stringer strength noted -EL Arousal/Alertness Alert;Appropriate responses to stimuli -EL Attention Span Attends with cues to redirect -EL Memory Decreased short term memory -EL Current communication Appears Intact -EL Orientation Oriented X4 (person, place, time, situation) -EL Following Commands Follows multistep commands with repetition -EL Safety Judgment Decreased awareness of need for safety -EL Awareness of Errors Assistance required to correct errors made;Assistance required to identify errors made -EL Insight Decreased awareness of deficits -EL Problem Solving Assistance required to implement solutions;Assistance required to generate solutions;Assistance required to identify errors made -EL Compliance/Behavior Easy to engage -EL Perseveration Present - verbal -EL Putting on and taking off regular lower body clothing 1 -EL Bathing 1 -EL Toileting 1 -EL Putting on and taking off upper body clothing 1 -EL Personal Grooming 2 -EL Eating Meals 2 -EL Total Score (range 6-24) 8 -EL Score Interpretation 22.86 -EL Safe Environment End of Therapy Session Patient left in chair;RN notified;Overbed table within reach;Call light within reach -EL Problem List Decreased upper extremity range of motion;Decreased upper extremity strength;Decreasedsafe judgment during ADL;Decreased cognition;Decreased endurance;Decreased balance;Decreased functional mobility;Decreased fine motor control;Decreased gross motor control;Decreased ADL independence;Decreased IADL independence;Decreased UE function;Decreased trunk control for functional activities;Decreased response to environment;Poor/Decreased functional positioning;Decreased upper extremity function;Decreased feeding skills;Decreased ROM;Pain -EL Barriers to Discharge Current Mobility Status;Current ADL Status;Decreased caregiver support;Decreased safety awareness;Cognition -EL Barrier Comments fall risk -EL Plan Continue with current plan;If this is the last note, consider this the discharge summary -EL OT Recommendation Residential Facility -EL Patient at high risk for Falls;Readmission;Injury due to balance deficits;Injury due to impaired cognition;Injury due to reduced functional status;Injury due to decreased ability to care for self -EL Recommend SNF due to Risk of injury at home;Unable to safely care for self in the home;Skilled therapy needed to address care for self in the home;Skilled therapy needed to address functional deficits;Skilled therapy needed for patient to return to prior level of independence -EL OT Frequency during current admission 5-7x/wk -EL Treatment/Interventions during current admission Balance Training;Bed mobility;ADL/IADL retraining;Endurance training;Functional activity;Functional mobility training;Functional transfer training;Strengthening;Therapeutic activity;Therapeutic exercise;Transfer training -EL Progress during current admission Progressing toward goals -EL OT - Next Appointment 09/24/23 -EL Start Time 0845 -EL Stop Time 909 -EL Time Calculation (min) 25 min -EL User Moran (r) = Recorded By, (t) = Taken By, (c) = Cosigned By Initials Name Effective Dates EL Hannah Ludwig OT 11/07/22 - OT Notes 09/23/2023 3:15 PM Progress Notes signed by Oziel, Hannah, OT , PT Eval and Treat Last 72 Hours PT Evaluation No documentation. PT TREATMENT (Last 168 Hours) PT Treatment Row Name 09/21/23 8256 PT Last Visit Session Type Treatment -MM Safe Environment Arm band checked;Session completed bedside;Patient found in supine;Gait belt not utilized, see comment no OOB mobility performed this visit -MM Subjective Agreeable to Therapy -MM Family/Caregiver Present Yes Daughter -MM Precautions Precautions Fall risk -MM Weight Bearing Restrictions Yes -MM LLE Weight Bearing NWB -MM Braces/Orthoses Cervical collar [place] J on throughout session -MM Precaution Handout Issued No -MM Precaution Comments Verbally reviewed precautions, patient verbalized understanding -MM Activity Tolerance Activity Tolerance Comments Nancy: SH () -MM Pain Assessment Pain Assessment No/denies pain -MM Cognition Arousal/Alertness Alert;Appropriate responses to stimuli -MM Orientation Oriented to person;Oriented to place;Oriented to time -MM Following Commands Follows multistep commands without difficulty -MM Balance Balance Yes -MM Static Sitting Balance Static Sitting-Balance Support Bilateral upper extremity supported;Feet supported -MM Static Sitting-Sitting Surface Bed -MM Static Sitting-Level of Assistance Minimum assistance -MM Static Sitting-Comment/# of Minutes Min A for steadying assist -MM ICU Mobility Scale ICU Mobility Scale 3 -MM FSS-ICU Functional Status Score (ICU scale) Rolling 2 -MM Supine to Sit 2 -MM Sitting 4 -MM Sit to Stand 0 -MM Ambulation or Wheelchair Mobility? Wheelchair Mobility -MM Wheelchair Mobility 0 -MM Score (Out of 35) 8 -MM Bed Mobility Bed Mobility Yes -MM Bed Mobility 1 Bed Mobility From 1 Supine -MM Bed Mobility Type 1 To and from -MM Bed Mobility to 1 Edge of bed -MM Level of Assistance 1 Maximum Assist -MM Bed Mobility Comments 1 Max A via log roll for trunk elevation, LE positioning, and hip scooting -MM Bed Mobility 2 Bed Mobility From 2 Supine -MM Bed Mobility Type 2 To and from -MM Bed Mobility to 2 Rolling right -MM Level of Assistance 2 Maximum Assist -MM Bed Mobility Comments 2 Max A for trunk rotation -MM Bed Mobility 3 Bed Mobility From 3 Supine -MM Bed Mobility Type 3 To and from -MM Bed Mobility to 3 Rolling left -MM Level of Assistance 3 Moderate Assist -MM Bed Mobility Comments 3 Mod A for trunk rotation, patient able to participate more rolling to L dueto use of RLE for force production -MM Transfers Transfer Yes -MM Transfer 1 Transfer From 1 Bed edge of bed -MM Transfer Type 1 To -MM Transfer to 1 Bed -MM Technique 1 Lateral -MM Transfer Device 1 Mechanical device overhead lift -MM Transfer Level of Assistance 1 Dependent -MM Trials/Comments 1 use of overhead lift given patient's current mobility status and precautions -MM Ambulation Ambulation No -MM Stairs Stairs No -MM Other Comments Other PT Comments Patient denied significant LE spasming this session, able to participate more this session -MM Basic Mobility - 6 Click How much difficulty does the patient have: Turning over in bed 2 -MM How much difficulty does the patient currently have: Sitting down and standing up from a chair witharms? 2 -MM How much difficulty does the patient have: Moving from lying on back to sitting on the side of the bed? 3 -MM How much difficulty does the patient have: Moving to and from a bed to a chair including wheelchair? 1 -MM How much help does the patient currently need: Walk in hospital room? 1 -MM How much help from another person does the patient currently need: Climbing 3-5 steps with a railing? 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 Left distal tib/fib fx, cervical myelopathy now s/p C2-7 PSF w C3-6 decompression and bilateral C4-5 foraminotomies (09/19), admit to SICU for postoperative monitoring results in above listed activity deficits and impair ments which prevent full participation in home and community mobility -MM Barriers to Discharge Current Mobility Status;Decreased caregiver support;Home environment challenged -MM Plan Plan Continue with current plan;If this is the last note, consider this the discharge summary -MM Recommendation/Plan PT Recommendation/Plan Residential Facility -MM Patient at high risk for Readmission;Falls;Injury due to decreased ability to care for self;Injury due to reduced functional status;Injury due to balance deficits;Injury at home as patient has not returned to prior level of function;Prolonged dependence for self care tasks -MM Recommend SNF due to Risk of injury at home;Unable to safely care for self in the home;Skilled therapy needed to address functional deficits;Skilled therapy needed to address care for self in the home;Skilled therapy needed for patient to return to prior level of independence -MM PT Recommendation/Plan Comments Patient agreeable with current plan of care -MM PT Frequency during current admission 5-7x/wk -MM Treatment/Interventions during current admission Balance Training;Bed mobility;Endurance training;Functional activity;Functional transfer training;Transfer training;Therapeutic exercise;Therapeutic ac tivity;Strengthening -MM PT Equipment Recommended Other (Comment) Pending progress -MM Progress during current admission Progressing toward goals -MM PT Evaluation Complete Yes -MM Time Calculation Start Time 1332 -MM Stop Time 1425 -MM Time Calculation (min) 53 min -MM User Moran (r) = Recorded By, (t) = Taken By, (c) = Cosigned By Initials Name Effective Dates MM Glenroy Rush, PT 01/08/23 - PT Notes Notes from 09/23/23 through 09/25/23 No notes of this type exist for this encounter. , Wound Info Only Active Wound Assessment Active Wound / Pressure injury / Thao / Negative Pressure Wound / Incision Wound 09/20/23 Skin tear Right Calf Date First Assessed 09/20/23 Site Calf Time First Assessed 1425 Days 4 Present on Hospital Admission: Yes Wound Type: Skin tear Location Orientation: Right Assessments Row Name 09/25/23 0400 09/25/23 0000 09/24/23 1900 09/24/23 1206 09/24/23 0700 Wound Status Healing Healing Healing Healing Healing Site Assessment Clean;Dry Clean;Dry Clean;Dry Clean;Dry Clean;Dry Trice-wound Assessment Dry;Intact Dry;Intact Dry;Intact Dry;Intact Dry;Intact Margins Defined edges Defined edges Defined edges Defined edges Defined edges Closure Open to air Open to air Open to air Open to air Open to air Drainage Amount None None None None None Drainage Description -- -- -- -- -- Drainage Odor -- -- -- -- -- Dressing Status Clean/Dry/Intact Clean/Dry/Intact Clean/Dry/Intact Clean/Dry/Intact -- Dressing -- -- -- Foam Foam Interventions -- -- -- Other (Comment) monitor -- Row Name 09/23/231899 Wound Status Healing Site Assessment Red;Moist Trice-wound Assessment Dry;Intact Margins Defined edges Closure -- Drainage Amount Moderate Drainage Description Sanguineous Drainage Odor No odor Dressing Status New;Changed Dressing Foam polymem Interventions -- Wound 09/21/23 MASD (Moisture associated skin damage) Gluteal Cleft (vertical) Date First Assessed 09/21/23 Site Gluteal Cleft (vertical) Time First Assessed 0900 Days 3 Wound Type: MASD (Moisture associated skin damage) Assessments Row Name 09/25/23 0400 09/25/23 0000 09/24/23 19009/24/23 1206 09/24/23 0700 Wound Status Evolving Evolving Evolving Evolving Evolving Site Assessment Clean Clean Clean Clean;Excoriated Clean;[place];Excoriated Trice-wound Assessment Dry;Intact;Blanchable erythema Dry;Intact;Blanchable erythema Dry;Intact;Blanchable erythema Dry;Intact;Blanchable erythema Dry;Intact;Blanchable erythema Margins -- -- -- Unattached edges Unattached edges Closure Open to air Open to air Open to air -- Open to air Drainage Amount None None None None None Drainage Odor No odor No odor No odor -- No odor Dressing Status Clean/Dry/Intact Clean/Dry/Intact Clean/Dry/Intact Clean/Dry/Intact Clean/Dry/Intact Dressing Foam Foam Foam Foam -- Interventions -- -- -- Other (Comment) monitor Site care;Cleansed;Topical barrier cream Row Name 09/23/231899 Wound Status Evolving Site Assessment [place] Trice-wound Assessment Dry;Intact;Blanchable erythema Margins Unattached edges Closure Open to air Drainage Amount None Drainage Odor -- Dressing Status Clean/Dry/Intact Dressing Foam Interventions -- Surgical Site 09/16/23 Left Leg Date First Assessed 09/16/23 Site Leg Time First Assessed 1305 Days 8 Location Orientation: Left Assessments Row Name 09/25/230 09/25/23 0000 09/24/23 1900 09/24/23 1206 09/24/23 0700 Site Assessment RAFA RAFA RAFA RAFA RAFA Trice-wound Assessment RAFA RAFA RAFA RAFA Dry;Intact Closure Unable to assess Unable to assess Unable to assess Unable to assess Unable to assess Drainage Amount None None None None None Drainage Odor No odor No odor No odor -- -- Dressing Status Clean, dry, intact Clean, dry, intact Clean, dry, intact Clean, dry, intact -- Dressing Intervention -- -- -- Other (Comment) monitor -- Dressing Christopher wrap;Splint Christopher wrap;Splint Christopher wrap;Splint Christopher wrap;Splint Splint;Christopher wrap Interventions -- -- -- Other (Comment) monitor Site care Row Name 09/23/23 1900 Site Assessment RAFA Trice-wound Assessment Intact;Dry Closure Unable to assess Drainage Amount None Drainage Odor -- Dressing Status -- Dressing Intervention -- Dressing Splint;Christopher wrap Interventions -- Surgical Site 09/20/23 Neck Bacitracin, Telfa, 4x4s, Tegaderm Date First Assessed 09/20/23 Site Neck Time First Assessed 1320 Days 4 Wound Description (Comments): Bacitracin, Telfa, 4x4s, Tegaderm Assessments Row Name 09/25/23 0400 09/25/23 0000 09/24/23 1900 09/24/23 1206 09/24/23 0700 Site Assessment RAFA RAFA RAFA RAFA RAFA Trice-wound Assessment RAFA RAFA RAFA RAFA Dry;Intact Closure Unable to assess Unable to assess Unable to assess Unable to assess Unable to assess Drainage Amount None None None None None Drainage Odor No odor No odor No odor -- -- Dressing Status Clean, dry, intact Clean, dry, intact Clean, dry, intact Clean, dry, intact Clean, dry, intact Dressing Intervention -- -- -- Other (Comment) monitor -- Dressing -- -- -- [place] Dressing [place] Dressing Interventions -- -- -- Other (Comment) monitor Site care Row Name 09/23/23 1900 Site Assessment RAFA Trice-wound Assessment Dry;Intact Closure Unable to assess Drainage Amount None Drainage Odor No odor Dressing Status Clean, dry, intact Dressing Intervention -- Dressing Transparent film Interventions -- * Plan of Care - Dede Sahni RN - 09/25/2023 1:24 AM CDT Goals: Clinical Goals for the Shift: pain control Senior Living Patient Centered Goal for Treatment: safety Summary: Problem: Skin Integrity Impairment Risk Goal: Mobility will improve Outcome: Progressing Goal: Understanding of ways to prevent future skin breakdown will improve Outcome: Progressing Goal: Nutritional status will improve Outcome: Progressing Goal: Risk for impaired skin integrity will decrease Outcome: Progressing * Significant Event - Klever Phillips MD - 09/24/2023 11:16 AM CDT CHUGG-OUT (SICU to OU/Floor Transfer) SICU MD HANDOFF Patient is a 78 y.o. female admitted on 09/16/2023 2:23 AM. Patient presented 09/15 to ED after ground level fall, found to have L distal tib/fib fracture s/p IMN repair with ortho on 09/15. Found to have possibly worsening upper extremity weakness, MRI findings of spinal cord deformity, and ultimately went to OR with ortho spine for spinal decompression. In OR patient had stable neuromonitoring exceptfor waxing and waning C5. Interval History: 09/23 AM - Ortho spine: q4h NC - TTF when bed available - D/c tobias 09/22 PM: - Ortho spine: q3h neurochecks, [place], OOBTC/PT as tolerated, upright c-spine XR - given 1g Mg Objective Physical Exam: Physical Exam HENT: Head: Normocephalic and atraumatic. Right Ear: External ear normal. Left Ear: External ear normal. Nose: Nose normal. Mouth/Throat: Mouth: Mucous membranes are moist. Eyes: Conjunctiva/sclera: Conjunctivae normal. Cardiovascular: Rate and Rhythm: Normal rate and regular rhythm. Pulses: Normal pulses. Heart sounds: Normal heart sounds. Pulmonary: Effort: Pulmonary effort is normal. Breath sounds: Normal breath sounds. Abdominal: General: Abdomen is flat. Bowel sounds are normal. There is no distension. Palpations: Abdomen is soft. Tenderness: There is no abdominal tenderness. Musculoskeletal: Right lower leg: No edema. Left lower leg: No edema. Skin: General: Skin is warm and dry. Capillary Refill: Capillary refill takes less than 2 seconds. Neurological: Mental Status: She is alert and oriented to person, place, and time. Comments: SILT bilateral upper extremities. Reports 50% decreased sensation on L vs R at site of IVrelated swelling. Sensation equal at shoulders. 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/5 apparently limited by hand swelling Biceps 4/5 bilaterally Deltoids 4/5 bilaterally Vital signs for last 24 hours: Temp: [37.3 ??C (99.1 ??F)-37.8 ??C (100 ??F)] 37.3 ??C (99.1 ??F) Pulse: [86-122] 86 BP: (91-144)/(46-88) 123/54 Resp: [12-24] 12 SpO2: [95 %-100 %] 95 % Hemodynamics: MAP (mmHg): [55-95] 70 Pulmonary Support: O2 Therapy: Supplemental oxygen O2 Del Method: Nasal cannula O2 Flow Rate (L/min): 2 L/min Intake/Output: Intake/Output Summary (Last 24 hours) at 09/24/2023 0716 Last data filed at 09/24/2023 0600 Gross per 24 hour Intake 990 ml Output 2025 ml Net -1035 ml Lab/Radiology/Diagnostic Review: Laboratory review: Lab results in the last 12 hours: Recent Results No results found for this or any previous visit (from the past 12 hour(s)). Assessment/Plan Principal Problem: Cervical spondylosis with myelopathy Active Problems: Closed fracture of shaft of left tibia, unspecified fracture morphology, initial encounter Acute pain due to trauma Encounter for medication review Discharge planning issues Pulmonary nodule Weakness of both arms Electrolyte imbalance ICU SYSTEMS ASSESSMENT: Patient presented 09/15 to ED after ground level fall, found to have L distal tib/fib fracture and cervical myelopathy, now s/p IMN repair with ortho on 09/15 and PSF C2-7 Neuro: # Acute pain - Tylenol 1000 mg q6h lila - gabapentin 200mg TID - Robaxin 750 QID lila - oxy 5mg q4, dilaudid 0.2mg q4 prn #upper extremity weakness #cervical myelopathy # posterior cervical fusion from C2-C7 # C3, C4, C5 and C6 laminectomies # C4-5 bilateral foraminotomies - mixed reports in chart, appears to be acute on chronic upper extremity weakness noted during admission 09/18 - No pain or resistance with passive movement. 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 Cord edema noted at the C3-C4 level - ortho spine c/s: s/p PSF 09/19 -Ortho spine: q4h neurochecks, transfer to [facility] floor - PT/OT consult #at risk for delirium - delirium precautions/sleep hygiene - trazodone 50mg nightly #safety evaluation #concern for SI, resolved - on arrival to floor patient waking up from anesthesia, disoriented - at times stating I want to , please let me - on further prompting, patient denies thoughts of wanting to hurt herself or plans to hurt self, appears to not remember what she was saying - for further evaluation when more awake - Reassessment 09/20 PM onwards with patient AO x 3: no SI, daughter also reports no prior history of SI or concern for depression CV: #No acute concerns Off pressors MAP >60 Pulmonary: - SpO2 > 92% 09/23: SpO2 97% on 2L NC #pulmonary nodule - CT C/A/P (09/15): Indeterminate right lower lobe pulmonary nodule with broad base along the pleura.Recommend comparison with prior imaging if available to document stability. If no prior imaging is available, recommend follow-up CT in 6-12 months. GI: Diet: regular PUD PPx: not indicated Bowel regimen: miralax, senna Endo: #No acute concerns BG 120-140s Renal: Fluid balance goal- auto IVF: carrier D/c guerrier Electrolyte abnormality Replace PRN Heme: - Hgb > 7 - Last Hgb 9.5 < 8.4 - CTM daily CBC DVT PPX: SCDs, lovenox 09/23: H/H 9.5/30.3 from 8.4/27.3 ID: - WBC 13.9 from 10.6 - TMax 37.7 - s/p vanc and ancef in OR, no further abx indicated - will CTM for s/s infection (rising leukocytosis, fever) - daily CBC Cultures: 09/20: BCx NGTD MSK: #Left tib fib fracture - Orthopedic consult - s/p OR 09/15 IMN - NWB LLE - Maintain SLS - PT/OT - Pain control - Bone health referral at discharge #cervical myelopathy s/p PSF - as above #likely osteoporosis - intraoperative finding during PSF - bone health referral as above on discharge ICU standards of care: Restraints: None Physical therapy/Activity: as tolerated, NWB LLE Access: PIVs Other: Dispo: PT/OT evaluation for placement Code status: full code MD Consults: [x] ACCS [] Cardiology [] Endo [] ENT [] GI [] Hand [] ID [] Neuro [] NSGY [x] Ortho [] Pain [] PRS [] Renal [] Spine-NSGY [x] Spine-Ortho [] Urology [] Other: Rehab/Ancillary Consults: [] BI (trauma patient with LOC) [] Chemical dependency [] PT [] OT [] Speech [] PM&R [] SMART (stroke patient) [] Wound care SITUATIONAL AWARENESS PERTINENT physical exam findings on day of transfer: HENT: Head: Normocephalic and atraumatic. Right Ear: External ear normal. Left Ear: External ear normal. Nose: Nose normal. Mouth/Throat: Mouth: Mucous membranes are moist. Eyes: Conjunctiva/sclera: Conjunctivae normal. Cardiovascular: Rate and Rhythm: Normal rate and regular rhythm. Pulses: Normal pulses. Heart sounds: Normal heart sounds. Pulmonary: Effort: Pulmonary effort is normal. Breath sounds: Normal breath sounds. Abdominal: General: Abdomen is flat. Bowel sounds are normal. There is no distension. Palpations: Abdomen is soft. Tenderness: There is no abdominal tenderness. Musculoskeletal: Right lower leg: No edema. Left lower leg: No edema. Skin: General: Skin is warm and dry. Capillary Refill: Capillary refill takes less than 2 seconds. Neurological: Mental Status: She is alert and oriented to person, place, and time. Comments: SILT bilateral upper extremities. Reports 50% decreased sensation on L vs R at site of IVrelated swelling. Sensation equal at shoulders. 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/5 apparently limited by hand swelling Biceps 4/5 bilaterally Deltoids 4/5 bilaterally New findings that warrant follow-up and pending studies: [] Yes--describe: [x] None Important changes to home medications: [] Home medications stopped/on hold: [] Dose changes: [x] No notable changes New medications to consider stopping prior to hospital discharge: [] New antipsychotic (started for ICU delirium): [x] Other: trazodone CURRENT ANTICOAGULANT THERAPY [x] VTE Prophylaxis [] Heparin [x] Lovenox [] SCDs [] IVC Filter [] Other: [] None - Reason: [] Therapeutic Anticoagulation Indication: [] Heparin [] Lovenox [] Other: Any previous issues with tolerating anticoagulants? [] Yes [] No Describe: Venous duplex performed? [] Yes ---> Most recent findings: [] No CURRENT ANTIMICROBIAL THERAPY [x] N/A - No current antimicrobial therapy [Antibiotic/Antimicrobial_Name] Indication: Start Date: Planned Duration: [Antibiotic/Antimicrobial_Name] Indication: Start Date: Planned Duration: LINES/DRAINS/AIRWAYS PRESENT Peripheral IV 09/20/23 20 G Left Arm (Active) Number of days: 4 Peripheral IV 09/22/23 20 G Anterior;Right Forearm (Active) Number of days: 2 Urethral Catheter Double-lumen;Temperature probe;Straight-tip (Active) Number of days: 4 TO-DO LIST PRIOR TO TRANSFER Make sure the following monitors or precautions are ordered if indicated: Telemetry [] Yes [x] No Continuous pulse oximetry [] Yes [x] No ALIRIO precautions [] Yes [x] No Difficult airway [] Yes [x] No Trach orders/signage [] Yes [x] No Size/Type: Date placed: Did patient require insulin while in SICU? [] Yes, scheduled insulin [] Yes, sliding scale only ----> d/c SICU insulin and order floor sliding scale insulin [x] No ----> d/c SICU insulin and blood glucose checks Is the patient receiving TPN? [] Yes ----> [] Today's bag is ordered [x] No Central line necessary? [] Yes [x] No [] N/A Groin line necessary? [] Yes [x] No [] N/A [] Discontinue K/Mg/Phos repletion order (if applicable) [] Discontinue stress ulcer prophylaxis if no longer indicated [] Discontinue ICU alcohol withdrawal order set (meds and nursing communications -- replace with floor order set if ongoing therapy needed) [x] Signed & Held orders reconciled (all orders either released or discontinued) [x] Sign-out was called to Natnael Doilicho of the ACCS service. QUESTIONS? Call [phone] ([phone]). * Plan of Care - Claire Tena RN - 09/24/2023 11:09 AM CDT Goals: Clinical Goals for the Shift: OOBTC; TTF: pain control; spinal xrays Summary: Problem: Discharge Planning Goal: Understanding discharge needs will improve Outcome: Progressing Problem: Fall Risk Goal: Ability to state ways to decrease the risk of falls will improve Outcome: Progressing Goal: Will remain free from falls Outcome: Progressing Goal: Will remain free from injury from falls Outcome: Progressing Problem: Skin Integrity Impairment Risk Goal: Mobility will improve Outcome: Progressing Goal: Understanding of ways to prevent future skin breakdown will improve Outcome: Progressing Goal: Nutritional status will improve Outcome: Progressing Goal: Risk for impaired skin integrity will decrease Outcome: Progressing Problem: Lack of Knowledge Goal: Ability to develop a pain control plan will improve Outcome: Progressing Problem: Medication Goal: Satisfaction with pain management medication regimen will improve Outcome: Progressing Problem: Sensory Goal: Ability to identify factors that increase pain levels will improve while working to decrease the patient's pain levels Outcome: Progressing Problem: Coping Goal: Ability to cope will improve Outcome: Progressing Problem: Health Behavior Goal: Identification of resources available to assist in meeting health care needs will improve Outcome: Progressing Problem: Neurosensory Goal: Achieves stable or improved neurological status Outcome: Progressing Problem: Respiratory Goal: Achieves optimal ventilation and oxygenation Outcome: Progressing Problem: Cardiovascular Goal: Maintains optimal cardiac output and hemodynamic stability Outcome: Progressing Problem: Skin/Tissue Integrity Goal: Skin integrity remains intact Outcome: Progressing Problem: Musculoskeletal Goal: Return mobility to safest level of function Outcome: Progressing Problem: Gastrointestinal Goal: Minimal or absence of nausea and vomiting Outcome: Progressing Problem: Genitourinary Goal: Absence of urinary retention Outcome: Progressing Problem: Infection Goal: Absence of infection during hospitalization Outcome: Progressing Problem: Metabolic/Fluid and Electrolytes Goal: Electrolytes maintained within normal limits Outcome: Progressing Problem: Hematologic Goal: Maintains hematologic stability Outcome: Progressing * Plan of Care - Claire Tena RN - 09/23/2023 12:36 PM CDT Goals: Clinical Goals for the Shift: VSS; OOBTC; ttou; pain control Summary: Problem: Discharge Planning Goal: Understanding discharge needs will improve Outcome: Progressing Problem: Fall Risk Goal: Ability to state ways to decrease the risk of falls will improve Outcome: Progressing Goal: Will remain free from falls Outcome: Progressing Goal: Will remain free from injury from falls Outcome: Progressing Problem: Skin Integrity Impairment Risk Goal: Mobility will improve Outcome: Progressing Goal: Understanding of ways to prevent future skin breakdown will improve Outcome: Progressing Goal: Nutritional status will improve Outcome: Progressing Goal: Risk for impaired skin integrity will decrease Outcome: Progressing Problem: Lack of Knowledge Goal: Ability to develop a pain control plan will improve Outcome: Progressing Problem: Medication Goal: Satisfaction with pain management medication regimen will improve Outcome: Progressing Problem: Sensory Goal: Ability to identify factors that increase pain levels will improve while working to decrease the patient's pain levels Outcome: Progressing Problem: Coping Goal: Ability to cope will improve Outcome: Progressing Problem: Health Behavior Goal: Identification of resources available to assist in meeting health care needs will improve Outcome: Progressing * Plan of Care - Miladys Cardenas RN - 09/22/2023 9:38 AM CDT Problem: Discharge Planning Goal: Understanding discharge needs will improve 09/22/2023937 by Miladys Cardenas RN Outcome: Progressing 09/22/2023935 by Miladys Cardenas RN Outcome: Progressing Problem: Fall Risk Goal: Ability to state ways to decrease the risk of falls will improve 09/22/2023937 by Miladys Cardenas RN Outcome: Progressing 09/22/2023935 by Miladys Cardenas RN Outcome: Progressing Goal: Will remain free from falls 09/22/2023937 by Miladys Cardenas RN Outcome: Progressing 09/22/2023935 by Miladys Cardenas RN Outcome: Progressing Goal: Will remain free from injury from falls 09/22/2023937 by Miladys Cardenas RN Outcome: Progressing 09/22/2023935 by Miladys Cardenas RN Outcome: Progressing Problem: Skin Integrity Impairment Risk Goal: Mobility will improve 09/22/2023937 by Miladys Cardenas RN Outcome: Progressing 09/22/2023935 by Miladys Cardenas RN Outcome: Progressing Goal: Understanding of ways to prevent future skin breakdown will improve 09/22/2023937 by Miladys Cardenas RN Outcome: Progressing 09/22/2023935 by Miladys Cardenas RN Outcome: Progressing Goal: Nutritional status will improve 09/22/2023937 by Miladys Cardenas RN Outcome: Progressing 09/22/2023935 by Miladys Cardenas RN Outcome: Progressing Goal: Risk for impaired skin integrity will decrease 09/22/2023937 by Miladys Cardenas RN Outcome: Progressing 09/22/2023935 by Miladys Cardenas RN Outcome: Progressing Problem: Lack of Knowledge Goal: Ability to develop a pain control plan will improve 09/22/2023937 by Miladys Cardenas RN Outcome: Progressing 09/22/2023935 by Miladys Cardenas RN Outcome: Progressing Problem: Medication Goal: Satisfaction with pain management medication regimen will improve 09/22/2023937 by Miladys Cardenas RN Outcome: Progressing 09/22/2023935 by Miladys Cardenas RN Outcome: Progressing Problem: Sensory Goal: Ability to identify factors that increase pain levels will improve while working to decrease the patient's pain levels 09/22/2023937 by Miladys Cardenas RN Outcome: Progressing 09/22/2023935 by Miladys Cardenas RN Outcome: Progressing Problem: Coping Goal: Ability to cope will improve 09/22/2023937 by Miladys Cardenas RN Outcome: Progressing 09/22/2023935 by Miladys Cardenas RN Outcome: Progressing Problem: Health Behavior Goal: Identification of resources available to assist in meeting health care needs will improve 09/22/2023 0938 by Miladys Cardenas RN Outcome: Progressing 09/22/2023 0936 by Miladys Cardenas RN Outcome: Progressing Goals: Clinical Goals for the Shift: oob w/ PT OT, PO pain meds, map >80 till 1100 Summary: * Plan of Care - Miladys Cardenas RN - 09/22/2023 9:36 AM CDT Problem: Discharge Planning Goal: Understanding discharge needs will improve Outcome: Progressing Problem: Fall Risk Goal: Ability to state ways to decrease the risk of falls will improve Outcome: Progressing Goal: Will remain free from falls Outcome: Progressing Goal: Will remain free from injury from falls Outcome: Progressing Problem: Skin Integrity Impairment Risk Goal: Mobility will improve Outcome: Progressing Goal: Understanding of ways to prevent future skin breakdown will improve Outcome: Progressing Goal: Nutritional status will improve Outcome: Progressing Goal: Risk for impaired skin integrity will decrease Outcome: Progressing Problem: Lack of Knowledge Goal: Ability to develop a pain control plan will improve Outcome: Progressing Problem: Medication Goal: Satisfaction with pain management medication regimen will improve Outcome: Progressing Problem: Sensory Goal: Ability to identify factors that increase pain levels will improve while working to decrease the patient's pain levels Outcome: Progressing Problem: Coping Goal: Ability to cope will improve Outcome: Progressing Problem: Health Behavior Goal: Identification of resources available to assist in meeting health care needs will improve Outcome: Progressing Goals: Clinical Goals for the Shift: oob w/ PT OT, PO pain meds, map >80 till 1100 Summary: * Plan of [place] - Yannick Jenkins RN - 09/22/2023 12:36 AM CDT Goals: Clinical Goals for the Shift: wean naman, stable VS, maintain maps>80 as per orders, sleep hygiene, pain control Summary: * Provider Query - Gwendolyn Bee MD - 09/21/2023 11:59 AM CDT Specify the condition you are evaluating, treating or monitoring and document in the medical recordand the form below. ____ Acute blood loss anemia ____ Chronic blood loss anemia ___x_ Acute blood loss anemia on baseline chronic anemia ____ Precipitous drop in Hemoglobin or Hematocrit ____ Other (specify below) Additional Provider Response: Chronic anemia of unknown etiology suspect iron deficiency anemia Clinical Indicators/Treatments: 78 y.o. 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 Patient normally ambulates with a walker. She had a mechanical fall 2 days ago while she was ambulating with her walker but her walker slipped on the wet floor causing her to fall onto her left leg. She did not hit her head or lose consciousness but was on the ground for 24 hours until her daughter found her the next day and called EMS. 09/16/23 03:02 09/16/23 22:59 09/18/23 01:25 09/19/23 01:35 09/19/23 23:58 09/20/23 09:52 09/20/23 15:34 09/20/23 20:27 Hgb 11.5 (L) 10.3 (L) 9.3 (L) 9.3 (L) 9.8 (L) 9.8 (L) 9.1 (L) Hct 35.2 (L) 32.3 (L) 28.4 (L) 28.6 (L) 30.8 (L) 30.7 (L) 28.2 (L) 6/5 Ortho surgery EBL 150 09/19 Ortho/Spine surgery EBL 200 ml Monitor/TX: - lab monitoring - monitor SICU References: Acute Blood Loss Anemia Screening Criteria Anemia Anemia is measured using the following hemoglobin levels by The WHO for persons living in the [place]: Men <13.5 g/dL Women <12.5 g/dL Acute Blood Loss Anemia Blood loss anemia is anemia due to loss of blood (enough blood to become anemic per above measurements or more anemic for patients with preexisting chronic anemia) Causes may include surgery, trauma, or GI bleeding Some patients are anemic to start with and become more anemic. To determine how much of a drop in Hgb/Hct is significant enough to warrant a diagnosis of blood loss anemia, consider the following criteria: Transfusion given Development of symptoms of anemia not previously present Drop in Hgb of 1.0-2.0 gm/dl and/or Hct 3-6% (smaller drop is more significant with a lower baseline.) >25% drop of Hgb from baseline Important Concepts Blood transfusion is not required to substantiate the diagnosis of acute blood loss anemia, but if a transfusion is necessary, acute blood loss anemia is almost certainly present and should be documented. Even if the amount of blood lost following surgery is expected and routinely associated with the procedure, acute blood loss anemia is still present if anemia occurs and warrants monitoring, evaluation, treatment, increased RN care, or extends the length of stay. Acute blood loss anemia is not classified as a complication, unlike ???postop hemorrhage?? or ???hemorrhage due to surgery.?? Failure to document acute blood loss anemia, when appropriate, may harmquality scores because severity of illness will not be adequately recorded If provider believes patient has Acute Blood Loss Anemia in the absence of above clinical indicators, please document rationale and clinical impression in detail. Acute Blood Loss Anemia References WHO. Haemoglobin concentrations for the diagnosis of anaemia and assessment of severity. Vitamin and Mineral Nutrition Information System. [place], World Health Organization, 2011 (WHO/NMH/NHD/MNM/11.1) http://www.who.int/vmnis/indicators/haemoglobin.pdf https://acphospitalist.org/archives//coding.htm https://acphospitalist.org/archives//yefevs-vwnmt-qyyq-anemia.htmhttps:// acphospitalist.org/archives//usabxn-fyyzp-zjpv-anemia.htm From the ICD-10-CM Coding Guidelines, use of terms such as likely, suspected, possible, or probable(associated with a specific diagnosis that is being evaluated, monitored, or treated as if it exists) are acceptable and can be coded in the inpatient setting when documented at the time of discharge. This documentation will become part of the patient???s medical record. Respectfully, Mer Petersen RN BSN [facility] Clinical Ladle Car Operator [email or web address] [phone] * Initial Assessments - Helen Murillo RN - 09/21/2023 11:16 AM CDT CM Initial Assessment Interview Note Information Obtained From: Patient (09/21/231113) Admission Source: transfer from OSH Impression: Patient transferred from OSH for fall. Plan Includes: CM anticipate pt d/c home with HH vs rehab. Primary Source of Transportation: Does the patient need discharge transport arranged?: No (09/21/231113) Health Insurance Coverage: [employer] Medicare Prescription Coverage: yes Pharmacy: Primary Care Provider: Daughter Jennifer ordonez pt moved home from [place] recently and is looking for a new PCP. Prior to Admission: Functional Status: Minimal assist with ADLs Primary Caregiver: Self Support System: Children Home Care Services: No Outpatient Services: No Durable Medical Equipment: Walker (wheeled) Living Arrangements: Alone Type of Residence: Apartment (09/21/231113) Potential discharge needs include: Home Health: Occupational therapy, Physical therapy, senior living (09/21/231113) OP Services: no Dialysis: no Behavioral Health Services: Behavioral Health Services: No (09/21/231113) Anticipated Level of Care: Anticipated discharge level of care: Other (Comment) Pt/Family agrees with Anticipated Level of Care: Unknown (09/21/231113) Patient expects to be Discharged to: Other (Comment) (Pt/OT recs pending), (09/21/231113) Additional Information: Patient lives in apartment alone. Patient does not have HH. Uses a walker. PT/OT evals pending. Patient's Identified Problem/Goal Problem: Ensure acute medical needs are met and that patient has a safe discharge plan. Goal: Secure a discharge plan that patient/family are agreeable with and ensure patient has continuum of care. Case management will follow for discharge planning and send referrals as needed. Goals include: To assure continuity of care, To maximize coping skills, To assure patient is in a safe environment and To assure access to community resources. Plan includes: 1. Collaboration with Patient, Provider, Direct Care Nurse, Tile Picker, and other members of theHealth Care Team to assure needed interventions completed. 2. Return patient to optimal level of self-care post discharge. 3. Skin Tanner will follow for Discharge Planning - interventions as needed 4. Anticipated level of care at discharge 5. Planned Discharge Disposition Helen Murillo RN * Provider Query - Hammad Taylor MD - 09/21/2023 10:34 AM CDT Specify the etiology of the fracture and document in the medical record and on the form below. ____Left tib/fib fracture Traumatic, Closed ____Left tib/fib fracture noted as Pathologic due to osteoporosis __x__Left tib/fib fracture due to a combination of trauma and pathological process when trauma alone would not likely be sufficient to cause the fracture ____Other, specify below Additional Provider Response: Please see above Clinical Indicators/Treatments: OP NOTE Obey PREOPERATIVE DIAGNOSIS: Left tibia fracture (fracture type: comminuted; location: distal) Left fibula fracture Status post fall from standing POSTOPERATIVE DIAGNOSIS: Same PROCEDURE: Left tibia closed reduction and intramedullary nailing Left fibula closed reduction and intramedullary nailing Left ankle stress examination under fluoroscopy OP NOTE spine surgery Severe spinal cord compression at C3-4 with very low quality bone consistent with osteoporosis Monitor/TX - follow up with Bone health outpatient References: From the ICD-10-CM Official Guidelines for Coding and Reporting, use of terms such as likely, suspected, possible, or probable (associated with a specific diagnosis that is being evaluated, monitored, or treated as if it exists) are acceptable and can be coded in the inpatient setting when documented at the time of discharge. This documentation will become part of the patient???s medical record. Respectfully, Mer [facility] Clinical Ladle Car Operator [email or web address] [phone] * Plan of Care - Felipa Martinez RN - 09/21/2023 8:50 AM CDT Problem: Discharge Planning Goal: Understanding discharge needs will improve Outcome: Progressing Problem: Fall Risk Goal: Ability to state ways to decrease the risk of falls will improve Outcome: Progressing Goal: Will remain free from falls Outcome: Progressing Goal: Will remain free from injury from falls Outcome: Progressing Problem: Skin Integrity Impairment Risk Goal: Mobility will improve Outcome: Progressing Goal: Understanding of ways to prevent future skin breakdown will improve Outcome: Progressing Goal: Nutritional status will improve Outcome: Progressing Goal: Risk for impaired skin integrity will decrease Outcome: Progressing Problem: Lack of Knowledge Goal: Ability to develop a pain control plan will improve Outcome: Progressing Problem: Medication Goal: Satisfaction with pain management medication regimen will improve Outcome: Progressing Problem: Sensory Goal: Ability to identify factors that increase pain levels will improve while working to decrease the patient's pain levels Outcome: Progressing Problem: Coping Goal: Ability to cope will improve Outcome: Progressing Problem: Health Behavior Goal: Identification of resources available to assist in meeting health care needs will improve Outcome: Progressing Goals: Clinical Goals for the Shift: VSS, pain control, PT/OT, MAP >80 * Plan of Taylor - Anais Martini RN - 09/20/2023 11:14 PM CDT Goals: Clinical Goals for the Shift: q1 neuro checks, pain control, MAP >80 Summary: Problem: Discharge Planning Goal: Understanding discharge needs will improve Outcome: Progressing Problem: Fall Risk Goal: Ability to state ways to decrease the risk of falls will improve Outcome: Progressing Goal: Will remain free from falls Outcome: Progressing Goal: Will remain free from injury from falls Outcome: Progressing Problem: Skin Integrity Impairment Risk Goal: Mobility will improve Outcome: Progressing Goal: Understanding of ways to prevent future skin breakdown will improve Outcome: Progressing Goal: Nutritional status will improve Outcome: Progressing Goal: Risk for impaired skin integrity will decrease Outcome: Progressing Problem: Lack of Knowledge Goal: Ability to develop a pain control plan will improve Outcome: Progressing Problem: Medication Goal: Satisfaction with pain management medication regimen will improve Outcome: Progressing Problem: Sensory Goal: Ability to identify factors that increase pain levels will improve while working to decrease the patient's pain levels Outcome: Progressing Problem: Coping Goal: Ability to cope will improve Outcome: Progressing Problem: Health Behavior Goal: Identification of resources available to assist in meeting health care needs will improve Outcome: Progressing * Op Note - Hans Rodriguez MD - 09/20/2023 10:20 AM CDT ..Operative Report Surgeon Hans Rodriguez MD Electrical And Instrumentation Manager(s) Surgeons and Role: * Hans Rodriguez MD - Primary * Yas Fuller MD - Fellow Anesthesia General endotracheal. Preoperative Diagnosis 1) Severe upper extremity weakness 2) Spinal cord signal change - unclear whether myelopathy or ALVARADO D spinal cord injury 3) left tibia/fibula fracture with recent history of ORIF Postoperative Diagnosis Same Procedure(s) 1) posterior cervical instrumentation from C2-C7 2) posterior cervical fusion from C2-C7 3) C3, C4, C5 and C6 laminectomies 4) C4-5 bilateral foraminotomies 5) local autograft harvest 6) intraoperative use of spinal cord monitor Indications for Surgery Aidee Domínguez is a 78 y.o. female who was a consult after sustaining a left tibia fracture. It is unclear the exact timing of the development of her upper extremity weakness. We were consulted after ORIF of the tibia fracture and ultimately proceeded to surgery after the daughter the patient were comfortable with the surgical procedure. The indications for the procedure, the potential risks, expected benefits, and alternatives to surgery were discussed with the patient and the patient gave her informed consent to proceed. Operative Findings Severe spinal cord compression at C3-4 with very low quality bone consistent with osteoporosis Description The operative site was identified and marked in the preoperative holding area. The patient was thenbrought back to the operating room supine on the hospital stretcher. She was administered a generalanesthetic and oral endotracheal intubation was performed by the anesthesiology service team. Additional intravenous access was obtained. Preoperative intravenous antibiotics consisting of Ancef and vancomycin were administered for infection prophylaxis. Spinal cord monitoring needles were placed. A Guerrier catheter was placed. Pan-Wells tongs were applied in the standard fashion for temporary intraop traction. The patient was then turned prone onto the OSI Nathaniel table. All bony prominences were properly padded and the patient's abdomen and axillae were allowed to hang free. The patient'shead and neck were supported using the Pan-Wells tongs and 15 lbs of temporary intraop traction. Once we were satisfied with the patient's position on the operating table, the patient was securedto the table. The entire posterior cervical spine was then prepped and draped in the usual sterile fashion using alcohol and ChloraPrep. A preoperative time-out was conducted correctly identifying the procedures we were about to perform. A skin incision was made with a 10 blade from the approximate level of C2-C7. Bovie electrocauterywas used to dissect through the subcutaneous tissue and fascia. The C2 spinous process and lamina were exposed. The C3, C4, C5, C6, and C7 spinous processes, lamina, and lateral masses were exposed with Bovie electrocautery. A Lor clamp was placed on the C2 spinous process. Fluoroscopic shots confirmed we were operating on the correct levels. Attention was then turned to placing the C2 screws.A [employer] 4 was placed on the inner ring of C2 bilaterally. A high-speed 1.5 mm bur was used to create a starting point. A 3.0 mm tap was used to cannulate the screw tract of approximately 20 mm. A ball-tipped probe confirmed appropriate placement of the screw tracts without any breaches. A 3.5 x 24 mm parsicle screw was placed and left approximately 4 mm proud to aid with alignment of the bertin. The a 1.5 mm bur was then used to create the starting points for the C3, C4, in C5 lateral mass screws. A 3.0 mm tap was used and taken to approximately 14 mm. A ball-tip probe confirmed appropriate placement of the screw tracts. We then created foraminotomies bilateral at C6-7 to palpate the C7 pedicles. This was performed with a 3.0 mm bur and a 2-0 Kerrison rongeur. Once the pedicles were palpated with a nerve hook, a 1.5 mm high-speed bur was used to create the starting point. A 3.0 mm tap was taken to approximately 20 mm. A 4.0 x 22 mm pedicle screw was placed bilaterally. Both of these had good purchase. We next performed the C4-5 foraminotomies bilaterally. This was performed by usinga high-speed bur. Once the beginning of the ligamentum flavum was identified, we switched to a 2 Kerrison rongeur to complete the foraminotomy. Once the C5 nerve was identified and traced out lateralpast the pedicle, which was palpated with a nerve hook, the foraminotomy was considered complete. This was performed bilaterally prior to the laminectomies. Attention was then turned to performing the C3, C4, C5, and C6 laminectomies. A high-speed bur was used to create approximately a 15 mm trough. Once the trough was created bilaterally, towel clips were placed on the C3, C4, C5, and C6 spinousprocesses of lamina. Upward pressure was applied and a nerve hook was used to remove the ligamentumflavum. Once these were free there was noted additional severe spinal cord compression at C3-4. A 2-0 Kerrison rongeur was then used to undercut the lamina at C3-4. There was significant decompression of the spinal cord at this level with cord flow back. The motor was noted this time it was noticedthat there was a small decrease in the motors of the deltoid and biceps on the right side, but the s ensory potentials were unchanged. I did perform additional decompression of the right C5 nerve rootafter the change in motor was identified and this looked and felt completely free of compression. Attention was then turned to placing the C3, C4, and C5 lateral mass screws. These had pretty poor purchase. A radiograph was obtained and found that the right C7 pedicle screw did not appear at an optimal position. This was removed and the starting point was moved a little cephalad and medial. A radiograph confirmed better placement of the screw after it was repositioned. Given the poor purchase of the lateral mass screws when trying to place the rods, the C5 right lateral mass screw was removedsince it had almost no purchase. It was also noticed that when placing the bertin and set screws the right C3 screw did change in position, but this was left in place in order to hopefully obtain some purchase compared to completely removing it. The vector traction was then changed to extension and the head was pulled towards the ceiling. This did not improve the position of her head, likely due to the underlying autofusion present. The 4.0 mm titanium rods were then placed along with set screws and the set screws were final tightened. This completed the C2- C7 posterior cervical instrumentation.The wound was then copiously irrigated with 3 L of normal saline and 1 g of Ancef. A radiograph confirmed appropriate placement of the screws and rods, with the exception of the right C3 screw as mentioned above that I thought would lead to a less strong construct if it was removed. The C3-4, C4-5,C5-6, and C6-7 bilateral facets were decorticated with a high-speed bur. The C2 lamina was decorticated. The C3, C4, C5, C6, and C7 lateral masses were decorticated with a high-speed bur bilaterally.The combination of local autograft harvested from the laminectomies and 15 cc of allograft chips were placed spanning from C2-7 to stimulate a C2-7 posterior cervical fusion. 1 g of vancomycin powderwas placed in the wound. There was no active bleeding identified. A 15 Finnish drain was placed through a separate incision deep to the fascia. The fascia was closed with 1 Vicryl. The subcutaneous tissue was closed with 2-0 Vicryl. The skin was closed with a running 3-0 nylon. A sterile dressing was applied. Neuromonitoring data remained stable during the procedure with the exception of waxing and waning C5 motors during the case. Patient's neurological examination following completion of the case is notyet known at the time of this dictation. I was scrubbed and present for all critical portions of the procedure including posterior cervical instrumentation from C2-C7, posterior cervical fusion from C2-C7, C3, C4, C5 and C6 laminectomies, and C4-5 bilateral foraminotomies. I was immediately available for all non-critical portions of the procedure. Please note that Dr. Yas Fuller MD was scrubbed and present for the entire procedure as well. He assisted during the case in its entirety including the exposure, C2-C7, posterior cervical fusion from C2-C7, C3, C4, C5 and C6 laminectomies, and C4-5 bilateral foraminotomies, and wound closure. His skilled assistance greatly helped to expedite the case thereby making the procedure safer. In addition, his skilled assistance was required as there was no qualified resident level assistants available. Implant Information Implant Name Type Inv. Item Serial No. Travel Pta Lot No. [id number] No. Used Action Jumbas Infuse 20ga 2x1in Vial Absorbable Syringe Needle Medium Graft 5.6 [id number] - [id number] [employer] Infuse 20ga 2x1in Vial Absorbable Syringe Needle Medium Graft 5.6 [id number] Med[employer] [id number] N/A 1 Implanted ALLOSOURCE Crushed Fresh Frozen Cancellous 1-4mm Graft 15ml Bone [id number] - [id number] [employer]OURCE Crushed Fresh Frozen Cancellous 1-4mm Graft 15ml Bone [id number] All[employer]ource [id number] N/A 1 Implanted [employer] Screw Spinal Posterior Cervical Full Thread Solid Reline C 3.5x24mm Titanium [id number] [employer] Screw Spinal Posterior Cervical Full Thread Solid Reline C 3.5x24mm Titanium [id number] Nuv[employer] Inc N/A 2 Implanted [employer] Screw Spinal Posterior Cervical Solid Reline C 3.5x14mm [id number] - [id number] [employer] Screw Spinal Posterior Cervical Solid Reline C 3.5x14mm [id number] Nuv[employer] Inc N/A 5 Implanted [employer] Screw Spine Reline C Lock Open Non-Sterile Latex Free [id number] - [id number] [employer] Screw Spine Reline C Lock Open Non-Sterile Latex Free [id number] Nuv[employer] Inc N/A 9 Implanted [employer] Screw Spinal Posterior Cervical Full Thread Solid Reline C 4.0x20 [employer]uv[employer] Inc N/A 2 Implanted GLOBUS [employer]ICAL QUARTEX 4MM 65MM CURVE BERTIN SPINAL NONSTERILE LATEX FREE 1149.7565 - [id number] G[employer] QUARTEX 4MM 65MM CURVE BERTIN SPINAL NONSTERILE LATEX FREE 1149.7565 [employer] N/A 1 Implanted GLOBUS MEDICAL Connector Spinal Curved Quartex 4.0x70mm Titanium 1149.7570 - [id number] GLO[employer]ICAL Connector Spinal Curved Quartex 4.0x70mm Titanium 1149.7570 [employer] N/A 1 Implanted Specimens None. Counts Correct. Estimated Blood Loss 15 mL. Total IV Fluids Please see anesthesia records Complications None. Condition on Discharge Stable. Hans Rodriguez M.D. Network Communications Engineer of Orthopaedic Surgery Department of Orthopaedic Surgery [employer] [facility] [place], [place] Operative Report dictated by Hans Rodriguez M.D. on 09/20/23 using Fluency Direct. Missileman variances may occur. * Plan of Care - Rayna Pat RN - 09/19/2023 11:37 PM CDT Goals: Clinical Goals for the Shift: Promote comfort and rest. NPO after MN for surgery tomorrow Summary: Problem: Discharge Planning Goal: Understanding discharge needs will improve Outcome: Progressing Problem: Fall Risk Goal: Ability to state ways to decrease the risk of falls will improve Outcome: Progressing Goal: Will remain free from falls Outcome: Progressing Goal: Will remain free from injury from falls Outcome: Progressing Problem: Skin Integrity Impairment Risk Goal: Mobility will improve Outcome: Progressing Goal: Understanding of ways to prevent future skin breakdown will improve Outcome: Progressing Goal: Nutritional status will improve Outcome: Progressing Goal: Risk for impaired skin integrity will decrease Outcome: Progressing Problem: Lack of Knowledge Goal: Ability to develop a pain control plan will improve Outcome: Progressing Problem: Medication Goal: Satisfaction with pain management medication regimen will improve Outcome: Progressing Problem: Sensory Goal: Ability to identify factors that increase pain levels will improve while working to decrease the patient's pain levels Outcome: Progressing Problem: Coping Goal: Ability to cope will improve Outcome: Progressing Problem: Health Behavior Goal: Identification of resources available to assist in meeting health care needs will improve Outcome: Progressing * Assessment & Plan Note - Hannah Chun NP - 09/19/2023 1:22 PM CDT Associated Problem(s): Electrolyte imbalance - 6/7: Mg 1.7, Phos 2.9, K 3.1 - Magnesium and KPhos treated - 6/7: Mg 1.7, Phos 2.2, K 3.7 - Magnesium and KPhos treated - Monitor electrolytes 09/25: Lytes stable: DC'ed daily labs * Plan of Care - Tres Bruno - 09/19/2023 12:10 AM CDT Goals: Clinical Goals for the Shift: VSS; pain management; post op care; promote comfort and rest; mobility Summary: Problem: Discharge Planning Goal: Understanding discharge needs will improve Outcome: Progressing Problem: Fall Risk Goal: Ability to state ways to decrease the risk of falls will improve Outcome: Progressing Goal: Will remain free from falls Outcome: Progressing Goal: Will remain free from injury from falls Outcome: Progressing Problem: Skin Integrity Impairment Risk Goal: Mobility will improve Outcome: Progressing Goal: Understanding of ways to prevent future skin breakdown will improve Outcome: Progressing Goal: Nutritional status will improve Outcome: Progressing Goal: Risk for impaired skin integrity will decrease Outcome: Progressing * Plan of Care - Mireya Mcdaniel RN - 09/18/2023 7:49 PM CDT Clinical Goals for the Shift: VSS; pain management; post op care; promote comfort and rest; mobility Summary: pt free of falls and medicated for pain as ordered; VSS. MRI spine and pending results. Problem: Discharge Planning Goal: Understanding discharge needs will improve Outcome: Progressing Problem: Fall Risk Goal: Ability to state ways to decrease the risk of falls will improve Outcome: Progressing Goal: Will remain free from falls Outcome: Progressing Goal: Will remain free from injury from falls Outcome: Progressing Problem: Skin Integrity Impairment Risk Goal: Mobility will improve Outcome: Progressing * Assessment & Plan Note - Hannah Chun NP - 09/18/2023 2:42 PM CDT Associated Problem(s): Weakness of both arms - Pe patient, weakness started after fall. [...] DVT; (+) superficial vein thrombus - 09/25: [place] J and upright cspine Xrs completed - 09/26: BUE motor exam stable. Cont PT/OT - 09/28: Doing well, tolerating diet and activity with well controlled pain; Iroquois J in place; PMNR c/s for recs * Plan of Care - Tres Bruno - 09/18/2023 12:21 AM CDT Goals: Clinical Goals for the Shift: VSS; pain management; surgical post op care; promote comfort and rest Summary: Problem: Discharge Planning Goal: Understanding discharge needs will improve Outcome: Progressing Problem: Fall Risk Goal: Ability to state ways to decrease the risk of falls will improve Outcome: Progressing Goal: Will remain free from falls Outcome: Progressing Goal: Will remain free from injury from falls Outcome: Progressing Problem: Skin Integrity Impairment Risk Goal: Mobility will improve Outcome: Progressing Goal: Understanding of ways to prevent future skin breakdown will improve Outcome: Progressing Goal: Nutritional status will improve Outcome: Progressing Goal: Risk for impaired skin integrity will decrease Outcome: Progressing * Plan of Care - Mireya Mcdaniel RN - 09/17/2023 5:54 PM CDT Summary: pt free of falls and medicated for pain as ordered (constant muscle spasms in BLE); VSS. Guerrier removed and no void, bladder scan 273 and per MD monitor and rescan later. Continued muscle spasms and medications regimen changed per MD. Continued weakness/inability to lift BUE-MD paged and mon itoring. Problem: Skin Integrity Impairment Risk Goal: Mobility will improve Outcome: Not Progressing Problem: Fall Risk Goal: Ability to state ways to decrease the risk of falls will improve Outcome: Progressing Goal: Will remain free from falls Outcome: Progressing Goal: Will remain free from injury from falls Outcome: Progressing Problem: Lack of Knowledge Goal: Ability to develop a pain control plan will improve Outcome: Progressing Problem: Coping Goal: Ability to cope will improve Outcome: Progressing Problem: Health Behavior Goal: Identification of resources available to assist in meeting health care needs will improve Outcome: Progressing * Assessment & Plan Note - Amy Lara NP - 09/17/2023 2:32 PM CDT Associated Problem(s): Pulmonary nodule - CT C/A/P (09/15): Indeterminate right lower lobe pulmonary nodule with broad base along the pleura.Recommend comparison with prior imaging if available to document stability. If no prior imaging is available, recommend follow-up CT in 6-12 months. * Assessment & Plan Note - Amy Lara NP - 09/17/2023 2:31 PM CDT Associated Problem(s): Discharge planning issues 09/25: pending SNF placement. Seen by PT/OT Patient is medically stable for discharge, SW/CM updated. Discharge pending facility acceptance 09/27 Patient is medically stable for discharge, SW/CM updated. Discharge pending patient daughter to select a facility from the list of accepting facilities for disposition. * Assessment & Plan Note - Amy Lara NP - 09/17/2023 2:31 PM CDT Associated Problem(s): Encounter for medication review - No past medical history, takes no medications at home * Assessment & Plan Note - Amy Lara NP - 09/17/2023 2:30 PM CDT Associated Problem(s): Acute pain due to trauma - Tylenol 1000 mg q6h - Robaxin 1000 mg qid - Oxycodone 5 mg q4h PRN -gabapentin 300 mg bid - Lidocaine patch daily Bowel regimen senna , Miralax * Assessment & Plan Note - Amy Lara NP - 09/17/2023 2:29 PM CDT Associated Problem(s): Closed fracture of shaft of left tibia, unspecified fracture morphology, initial encounter #Left tib fib fracture - Orthopedic consult - s/p OR 09/15 IMN - NWB LLE - Maintain SLS - PT/OT - Pain control - Bone health referral at discharge * Plan of Care - Tres Bruno - 09/16/2023 10:16 PM CDT Goals: Summary: Problem: Discharge Planning Goal: Understanding discharge needs will improve 09/16/20232215 by Tres Bruno Outcome: Progressing 09/16/20232215 by Tres Bruno Outcome: Progressing Problem: Fall Risk Goal: Ability to state ways to decrease the risk of falls will improve 09/16/20232215 by Tres Bruno Outcome: Progressing 09/16/20232215 by Tres Bruno Outcome: Progressing Goal: Will remain free from falls 09/16/20232215 by Tres Bruno Outcome: Progressing 09/16/20232215 by Tres Bruno Outcome: Progressing Goal: Will remain free from injury from falls 09/16/20232215 by Tres Bruno Outcome: Progressing 09/16/20232215 by Tres Bruno Outcome: Progressing Problem: Skin Integrity Impairment Risk Goal: Mobility will improve 09/16/20232215 by Tres Bruno Outcome: Progressing 09/16/20232215 by Tres Bruno Outcome: Progressing Goal: Understanding of ways to prevent future skin breakdown will improve 09/16/20232215 by Tres Bruno Outcome: Progressing 09/16/20232215 by Tres Bruno Outcome: Progressing Goal: Nutritional status will improve 09/16/20232215 by Tres Bruno Outcome: Progressing 09/16/[id number] by Tres Bruno Outcome: Progressing Goal: Risk for impaired skin integrity will decrease 09/16/20232215 by Tres Bruno Outcome: Progressing 09/16/[id number] by Tres Bruno Outcome: Progressing * Brief Op Note - Zoila Segura MD - 09/16/2023 12:56 PM CDT Operative Progress Note Surgical Team: Surgeons and Role: * Hammad Taylor MD - Primary * Otto Dotson MD - Resident - Assisting * Zoila Segura MD - Resident - Assisting Anesthesiologist: Júnior Velazquez MD SOFTWARE TEST DEVELOPER: Morgan Duke III SOFTWARE TEST DEVELOPER Business Performance Advisor: Irasema Palafox RN Business Performance Advisor Relief: Mel Salazar RN Scrub Relief: Pool Londono RN Scrub: Bambi Rees [facility] Business Performance Advisor: Cesia Cervantes RN DATE OF SURGERY : 09/16/2023 Preoperative Diagnosis: Pre-op Diagnosis * Other closed fracture of distal end of left tibia, initial encounter [S82.392A] Postoperative Diagnosis: Post-op Diagnosis * Other closed fracture of distal end of left tibia, initial encounter [S82.392A] Procedure(s): Procedure(s) (LRB): INTRAMEDULLARY NAIL - TIBIAL and FIBULA (Left) Operative Findings: L tibial IMN, L fibular Nail Estimated Blood Loss: 150 mL Intraoperative Fluids: See anesthesia note mls Specimens: No specimen collected in procedure Implants: Implant Name Type Inv. Item Serial No. Travel Pta Lot No. LRB No. Used Action SYNTHES Nail Im Tibial Ti Tn Advanced [id number] 04.043.430S - [id number] SYNTHES Nail Im Tibial Ti Tn Advanced [id number] 04.043.430S Synthes I [id number] Left 1 Implanted SYNTHES Screw Bone Locking Cannulated Femoral Threaded 5.0x36mm 04.045.336S - [id number] SYNTHES Screw Bone Locking Cannulated Femoral Threaded 5.0x36mm 04.045.336S Synthes I Left 1 Implanted SYNTHES SCREW LOCKING IM NAIL 5MM 34MM 04.045.034 - [id number] SYNTHES SCREW LOCKING IM NAIL 5MM 34MM 04.045.034 Synthes I Left 2 Implanted SYNTHES 3.5mm 440mm Elastic Nail Intramedullary Titanium Pediatric 475.935 - [id number] SYNTHES 3.5mm 440mm Elastic Nail Intramedullary Titanium Pediatric 475.935 Synthes I Left 1 Implanted SYNTHES Screw Locking Threaded 5.0x44mm 04.045.344S - [id number] SYNTHES Screw Locking Threaded 5.0x44mm 04.045.344S Synthes I Left 2 Implanted Blood/Blood Products Transfused: 0 mls Complications: None Condition on Discharge from the operating room was stable Zoila Segura MD Date: 09/16/2023 Time: 3:38 PM TEACHING ATTESTATION : I was present and directly participated in the entire procedure (including opening and closing). Cosigned by Hammad Taylor MD at 09/16/2023 4:22 PM CDT * ED Procedure Note - Diogo Lee MD - 09/16/2023 7:06 AM CDT Associated Order(s): Critical Care Procedure Critical Care Performed by: iDogo Lee MD Authorized by: Diogo Lee MD Critical care provider statement: As reflected in the history, physical exam, orders, notes, and/or MDM, I was personally present while the patient was critically ill and provided critical care services for 35 minutes, excluding timeinvolved in separately billable procedures. Critical care was necessary to treat or prevent imminent or life- threatening deterioration of the following condition(s): severe long-bone fracture Critical care was time spent by me providing the following: continuous telemetry, continuous pulse oximetry, interpretation of bedside monitors, imaging, and arterial/venous lab draws, serial bedside patient exams and resuscitation with fluids decision regarding NPO status prepared for emergent procedure/operating room and acute pain control I provided emergent necessary critical care medicine services to this patient. I ordered and reviewed test results and/or imaging studies. I spent time discussing the management of this critically ill patient with consultants and the medical staff. I spent time discussing the management and therapeutic options for this critically ill patient with the patient themselves or with the appropriate designated surrogate decision-maker. I spent time documenting in the medical record. Diogo Lee MD 09/16/23 0707 * Op Note - Hammad Taylor MD - 09/16/2023 3:48 AM CDT Date of Surgery: 09/16/2023 INDICATIONS: Ms. Domínguez is a 78 y.o.-year-old female who sustained a left distal tibia and fibula fracture. The patient was indicated for open reduction and internal fixation due to the displaced nature of the fracture and came to the operating room today for this procedure. The risks and benefits of the procedure were discussed prior to the procedure, including both operative and non- operative modalities. Risks include, but are not limited to bleeding, infection, damage to surrounding structures, failure to heal, malunion, nonunion, deep venous thrombosis, pulmonary embolism, and . At the completion of this discussion all questions were answered, and consent was obtained. PREOPERATIVE DIAGNOSIS: Left tibia fracture (fracture type: comminuted; location: distal) Left fibula fracture Status post fall from standing POSTOPERATIVE DIAGNOSIS: Same PROCEDURE: Left tibia closed reduction and intramedullary nailing Left fibula closed reduction and intramedullary nailing Left ankle stress examination under fluoroscopy SURGEON: Hammad Taylor M.D. ASSISTANT TENNIS PROFESSIONAL: Zoila Segura MD (PGY5); Otto Dotson MD (PGY3) ANESTHESIA: General ASA Status: See anesthesia. IV FLUIDS AND URINE: See anesthesia. ESTIMATED BLOOD LOSS: 150 mL. IMPLANTS: Synthes Advanced Suprapatellar Tibia Intramedullary Nail (12 mm x 330 mm) with 2 proximaland 3 distal interlocking screws; Synthes 3.5 mm titanium elastic intramedullary nail SPECIMENS: None. DRAINS: None. COMPLICATIONS: None. DESCRIPTION OF PROCEDURE: The patient was brought to the operating room supine on a hospital bed/stretcher. After the patient had anesthesia induced by the anesthesiologist, and the endotracheal tubewas placed and secured in standard fashion. The patient was then gently transferred from the hospital bed to the operating room table and placed in the supine position. At this time great care was taken to ensure that all neurovascular structures and non-operative extremities were appropriately padded and secured to the table in standard fashion. The patient had SCDs placed on the lower extremities per hospital protocol. The operative extremity was then preemptively shaved and cleaned with chlorhexidine scrub brushes and alcohol per our trauma service protocol. The operative extremity was then sterilely prepped and draped per hospital protocol. The patient received antibiotics prior to the beginning of the procedure, and these were redosed throughout the procedure as needed at the standard indicated intervals. A surgical timeout was then performed confirming that this was the correct patient, correct procedure, and correct surgical site and location. The superior border of the patella was marked out on the skin, and then an incision was marked out 2 cm proximal to the superior border of the patella. With a 10 blade scalpel the incision was sharply incised down through skin and subcutaneous tissues until the quad tendon was encountered. At this point we stopped and obtained hemostasis with electrocautery. Next the quadriceps tendon was then split sharply in line with surgical incision and its fibers from the superior pole of the patella proximally. A protective sleeve was then gently inserted within the patellofemoral joint and down to theproximal tibia. A starting guidewire was placed in the appropriate start point, and this was confirmed on orthogonal fluoroscopic views. The guidewire was then advanced into the proximal tibia and weconfirmed our trajectory on orthogonal fluoroscopic views. The opening reamer was then inserted over the guidewire and then advanced into the proximal tibia in standard fashion taking great care not to ream out the posterior cortex. A ball-tipped guidewire was then gently advanced down to the level of the fracture but not across it. The fracture was reduced with axial traction and rotation, and then further stabilized with percutaneously placed large pointed reduction tenaculums. Once the tibia fracture was appropriately reduced and the reduction was confirmed on orthogonal fluoroscopic views, the ball-tipped guidewire was gently advanced down the length of the tibia into the appropriate position and point in the distal tibia. The length was measured with the measuring device on a perfect lateral fluoroscopic image of the knee. Reaming occurred sequentially from an 8.5 mm reamer up to an 13.0 mm Reamer. A 12 mm x 330 mm intramedullary nail was then selected and assembled on the back table. It was then inserted over the guidewire and then gently malleted down to the distal tibia while taking great care not to displace the fracture reduction. We then assessed the rotation of the tibia to make sure that the tibial crest was aligned with the 2nd metatarsal. We also confirmed that the rotation of the nail was correct by obtaining a perfect lateral of the ankle and a perfect lateral of the nail. The distal interlocks were placed with perfect table mountain technique. This was done under fluoroscopic guidance by initiallyobtaining the start point and then drilling bicortically. Each drill bit was then measured with the measuring device, and the appropriate length interlock was then placed initially on power and then final tightened on hand. We again assessed our rotation by palpation of the tibial crest and ensuring that it aligned with the 2nd metatarsal. The proximal interlock screws were placed through the outrigger jig. Each of these were placed in standard fashion by making a percutaneous incision in the skin, spreading bluntly through the soft tissues, and then inserting the soft tissue sleeve down to bone, drilling, measuring, and then placing the appropriate length screw on power and final tightening on hand. A dorsiflexion external rotation stress exam under anesthesia of the ankle was then performed, and demonstrated evidence of instability. Additionally, given the valgus failure of her fracture pattern, it was felt to be beneficial to have an additional point of stability laterally by stabilizing thefibula fracture. Attention was now turned to the fibula fracture. Under fluoroscopic guidance a 1 cm percutaneous incision was made distal to the tip of the fibula. A 4.2 mm drill bit with a soft tissue sleeve was then advanced through the wound down to the tip of the fibula, and under orthogonal fluoroscopic guidance we obtained an appropriate start point on the distal tip of the fibula. The drill was then advanced in to the distal fibula while oscillating. With the soft tissue guide remaining in place, the 4.2 mm drill bit was then removed, and with a 2.5 mm drill bit the canal was opened up to the level ofthe fracture while isolating. A 3.5 mm titanium elastic intramedullary nail was selected, and then advanced through the percutaneous incision into the distal fibula and gently malleted up to the fracture site. The fracture was then reduced with closed manipulation. The nail was then advanced past the fracture site up into the proximal fibula. We then turned our attention back to the distal fibula. The elastic nail was then cut to the appropriate length, and under fluoroscopic guidance was gently malleted to the appropriate depth so that it did not remain prominent distally. A dorsiflexion external rotation stress exam under anesthesia of the ankle was then performed, and demonstrated no evidence of instability. Final fluoroscopic views were taken in AP, lateral, and mortise views to confirm the reduction, location of implants and safety of implants. Hemostasis was achieved with electrocautery. The wounds were copiously irrigated with normal saline solution. The surgical incisions were then closed in layered fashion using 1-0 Vicryl for the deep fascia and quad tendon split, 3-0 Monocryl for the subcutaneous and deep dermal layers in simple interrupted fashion, and 3-0 nylon for the skin in horizontal mattress fashion. The wounds were cleaned and dried a final time and a sterile dressing consisting of Steri-Strips, xeroform, 4x4s, and ABD was placed. The patient was then wrapped in Webril and placed in a short leg splint. The patient was then transferred back to the bed and left the operating room in stable condition. All sponge and instrument counts were correct. I was present for the entire procedure. POSTOPERATIVE PLAN: Ms. Domínguez will be nonweightbearing on the left lower extremity in a splint, andwill return in three weeks for suture removal and will not need any x-rays until the six week visit. At that time she will be transitioned to a Cam boot and will begin ankle range of motion. Ms. Domínguez will receive DVT prophylaxis based on other medications, activity level, and risk ratio of bleeding to thrombosis per the primary team; if possible, we would prefer Lovenox. * ED Procedure Note - Diogo Lee MD - 09/16/2023 3:02 AM CDT Associated Order(s): ECG 12 lead Procedure ECG 12 lead Date/Time: 09/16/2023 3:02 AM Performed by: Diogo Lee MD Authorized by: Sara Jimenez MD Rate: ECG rate: 94 ECG rate assessment: normal Rhythm: Rhythm: sinus rhythm Ectopy: Ectopy: PVCs QRS: QRS axis: Normal QRS intervals: Normal Conduction: Conduction: normal ST segments: ST segments: Normal T waves: T waves: normal Previous ECG: Previous ECG: Unavailable Interpretation: Interpretation: non-specific Recommended Follow-up: Recommended follow up: further workup in the ED Diogo Lee MD 09/16/23 030 * ED Pre-Arrival Note - Frandy Renee RN - 09/16/2023 1:05 AM CDT Pre-Arrival Note Transfer from [facility]. Patient fell Thursday at 4am, found at Thursday at 7pm. Patient foundto have a distal left tib/fib fx. Patient also found to have a CK of 2000. OSH planning to splint prior to transfer. Neuro/Vascular intact. Report given to Dr. Tamez who accepted the patient as a Level 2 trauma. Frandy Renee RN documented in this encounter Plan of Treatment Pending Results Name Type Priority Associated Diagnoses Date /Time Magnesium Lab STAT 09/16/2023 3:0 2 AM CDT Protime-INR Lab Timed 09/19/2023 11 :58 PM CDT Scheduled Orders Name Type Priority Associated Diagnoses Orde r Schedule Magnesium Lab STAT Once for 1 Occ urrences starting 09/16/2023 until 09/16/2023 Protime-INR Lab Timed Once for 1 Oc currences starting 09/19/2023 until 09/19/2023 ECG 12 lead ECG Routine As needed unt il discontinued starting 09/20/2023 ECG 12 lead ECG STAT As needed unt il discontinued starting 09/20/2023 documented as of this encounter Procedures Procedure Name Priority Date/Time Associated Diagnosis Comments COVID-19 CORONAVIRUS RNA Routine 09/29/2023 12:50 PM CDT XR SPINE CERVICAL 2 OR 3 VIEWS IP Routine 09/26/2023 11:16 AM CDT EGFR Routine 09/25/2023 10:51 PM CDT BASIC METABOLIC PANEL Routine 09/25/2023 10:51 PM CDT INFECTION PREVENTION CLEMENT AURIS PCR, SURVEILLANCE Routine 09/25/2023 6:26 PM CDT POCT GLUCOSE DEVICE Routine 09/25/2023 2 :06 PM CDT US VEIN DUPLEX UPPER EXTREMITY RIGHT LIMITED ED Urgent/IP Urgent 09/25/2023 10:27 AM CDT POCT GLUCOSE DEVICE Routine 09/25/2023 7 :25 AM CDT XR CHEST 1 VIEW ED Urgent/IP Urgent 09/24/2023 10:45 PM CDT EGFR Routine 09/24/2023 9:16 PM CDT CBC WITHOUT DIFFERENTIAL Routine 09/24/2023 9:16 PM CDT PHOSPHORUS Routine 09/24/2023 9:16 PM CDT MAGNESIUM Routine 09/24/2023 9:16 PM CDT BASIC METABOLIC PANEL Routine 09/24/2023 9:16 PM CDT XR SPINE CERVICAL 2 OR 3 VIEWS IP Routine 09/24/2023 9:36 AM CDT CRITICAL CARE Routine 09/23/2023 6:20 PM CDT Other closed fracture of distal end of left tibia, initial encounter EGFR Routine 09/23/2023 4:04 PM CDT CBC WITHOUT DIFFERENTIAL Routine 09/23/2023 4:04 PM CDT PHOSPHORUS Routine 09/23/2023 4:04 PM CDT MAGNESIUM Routine 09/23/2023 4:04 PM CDT BASIC METABOLIC PANEL Routine 09/23/2023 4:04 PM CDT EGFR Routine 09/22/2023 8:04 PM CDT CBC WITHOUT DIFFERENTIAL Routine 09/22/2023 8:04 PM CDT TYPE AND SCREEN Timed 09/22/2023 8:04 PM CDT PHOSPHORUS Routine 09/22/2023 8:04 PM CDT MAGNESIUM Routine 09/22/2023 8:04 PM CDT BASIC METABOLIC PANEL Routine 09/22/2023 8:04 PM CDT CRITICAL CARE Routine 09/22/2023 7:39 PM CDT Other closed fracture of distal end of left tibia, initial encounter POCT GLUCOSE DEVICE Routine 09/22/2023 7 :16 AM CDT POCT GLUCOSE DEVICE Routine 09/22/2023 3 :23 AM CDT POCT GLUCOSE DEVICE Routine 09/21/2023 11:34 PM CDT EGFR Routine 09/21/2023 8:51 PM CDT CBC WITHOUT DIFFERENTIAL Routine 09/21/2023 8:51 PM CDT PHOSPHORUS Routine 09/21/2023 8:51 PM CDT MAGNESIUM Routine 09/21/2023 8:51 PM CDT BASIC METABOLIC PANEL Routine 09/21/2023 8:51 PM CDT CRITICAL CARE Routine 09/21/2023 8:02 PM CDT Other closed fracture of distal end of left tibia, initial encounter POCT GLUCOSE DEVICE Routine 09/21/2023 7 :59 PM CDT POCT GLUCOSE DEVICE Routine 09/21/2023 3 :43 PM CDT BLOOD CULTURE Routine 09/21/2023 12:29 PM CDT BLOOD CULTURE Routine 09/21/2023 12:19 PM CDT POCT GLUCOSE DEVICE Routine 09/21/2023 11:36 AM CDT XR CHEST 1 VIEW ED Urgent/IP Urgent 09/21/2023 10:57 AM CDT INFECTION PREVENTION CLEMENT AURIS PCR, SURVEILLANCE Routine 09/21/2023 9:51 AM CDT POCT GLUCOSE DEVICE Routine 09/21/2023 7 :34 AM CDT CRITICAL CARE Routine 09/21/2023 6:43 AM CDT Other closed fracture of distal end of left tibia, initial encounter Cervical spondylosis with myelopathy POCT GLUCOSE DEVICE Routine 09/21/2023 3 :47 AM CDT CRITICAL CARE Routine 09/21/2023 2:13 AM CDT Other closed fracture of distal end of left tibia, initial encounter POCT GLUCOSE DEVICE Routine 09/21/2023 12:26 AM CDT EGFR Routine 09/20/2023 8:27 PM CDT CBC WITHOUT DIFFERENTIAL Routine 09/20/2023 8:27 PM CDT PHOSPHORUS Routine 09/20/2023 8:27 PM CDT MAGNESIUM Routine 09/20/2023 8:27 PM CDT BASIC METABOLIC PANEL Routine 09/20/2023 8:27 PM CDT POCT GLUCOSE DEVICE Routine 09/20/2023 7 :44 PM CDT INFECTION PREVENTION CLEMENT AURIS PCR, SURVEILLANCE Routine 09/20/2023 4:29 PM CDT POCT GLUCOSE DEVICE Routine 09/20/2023 4 :00 PM CDT EGFR STAT 09/20/2023 3:34 PM CDT CBC WITHOUT DIFFERENTIAL STAT 09/20/2023 3:34 PM CDT PHOSPHORUS STAT 09/20/2023 3:34 PM CDT MAGNESIUM STAT 09/20/2023 3:34 PM CDT BASIC METABOLIC PANEL STAT 09/20/2023 3:34 PM CDT FL FLUOROSCOPY < 1 HOUR IP Routine 09/20/2023 1:05 PM CDT POC BLOOD GAS AND CHEMISTRIES, ARTERIAL Routine 09/20/2023 9:52 AM CDT FUSION CERVICAL/THORACIC - POSTERIOR WITH INSTRUMENTATION 09/20/2023 8:11 AM CDT Cervical spondylosis with myelopathy EGFR Routine 09/19/2023 11:58 PM CDT APTT Timed 09/19/2023 11:58 PM CDT PROTIME-INR Timed 09/19/2023 11:58 PM CDT CBC WITHOUT DIFFERENTIAL Routine 09/19/2023 11:58 PM CDT TYPE AND SCREEN Timed 09/19/2023 11:58 PM CDT PHOSPHORUS Routine 09/19/2023 11:58 PM CDT MAGNESIUM Routine 09/19/2023 11:58 PM CDT BASIC METABOLIC PANEL Routine 09/19/2023 11:[address] HEAD WO CONTRAST ED Urgent/IP Urgent 09/19/2023 10:48 PM CDT EGFR Routine 09/19/2023 1:35 AM CDT CBC WITHOUT DIFFERENTIAL Routine 09/19/2023 1:35 AM CDT PHOSPHORUS Routine 09/19/2023 1:35 AM CDT MAGNESIUM Routine 09/19/2023 1:35 AM CDT BASIC METABOLIC PANEL Routine 09/19/2023 1:35 AM CDT MRI CERVICAL SPINE WO CONTRAST ED Urgent/IP Urgent 09/18/2023 7:27 PM CDT CORN HUSKER EVALUATE AND TREAT Routine 8:49 AM CDT EGFR Routine 09/18/2023 1:25 AM CDT CBC WITHOUT DIFFERENTIAL Routine 09/18/2023 1:25 AM CDT PHOSPHORUS Routine 09/18/2023 1:25 AM CDT MAGNESIUM Routine 09/18/2023 1:25 AM CDT BASIC METABOLIC PANEL Routine 09/18/2023 1:25 AM CDT EGFR Routine 09/16/2023 10:59 PM CDT CBC WITHOUT DIFFERENTIAL Routine 09/16/2023 10:59 PM CDT PHOSPHORUS Routine 09/16/2023 10:59 PM CDT MAGNESIUM Routine 09/16/2023 10:59 PM CDT BASIC METABOLIC PANEL Routine 09/16/2023 10:59 PM CDT XR TIBIA FIBULA LEFT 2 VIEWS ED Urgent/IP Urgent 09/16/2023 5:19 PM CDT FL FLUOROSCOPY < 1 HOUR IP Routine 09/16/2023 3:21 PM CDT CREATINE KINASE (CK), TOTAL STAT 09/16/2023 9:58 AM CDT [facility] CRITICAL CARE ILL/INJURED PATIENT INIT 30-74 MIN Routine 09/16/2023 7:06 AM CDT CALCIUM, IONIZED STAT 09/16/2023 6:[address] ANKLE LEFT WO CONTRAST ED Urgent/IP Urgent 09/16/2023 6:[address] CHEST ABDOMEN PELVIS W CONTRAST ED 09/16/2023 6:17 AM CDT B CHECK SAMPLE STAT 09/16/2023 4:42 AM CDT XR TIBIA FIBULA LEFT 2 VIEWS ED Urgent/IP Urgent 09/16/2023 4:27 AM CDT ECG 12-LEAD Routine 09/16/2023 3:02 AM CDT EGFR STAT 09/16/2023 3:02 AM CDT DIFFERENTIAL AUTO STAT 09/16/2023 3:0 2 AM CDT URINALYSIS AND REFLEX TO MICROSCOPIC AND CULTURE STAT 09/16/2023 3:02 AM CDT CBC WITH AUTO DIFFERENTIAL STAT 09/16/2023 3:02 AM CDT URINALYSIS, MICROSCOPIC ONLY STAT 09/16/2023 3:02 AM CDT APTT Routine 09/16/2023 3:02 AM CDT PROTIME-INR Routine 09/16/2023 3:02 AM CDT TYPE AND SCREEN Timed 09/16/2023 3:02 AM CDT MAGNESIUM STAT 09/16/2023 3:02 AM CDT CREATINE KINASE (CK), TOTAL STAT 09/16/2023 3:02 AM CDT COMPREHENSIVE METABOLIC PANEL STAT 09/16/2023 3:02 AM CDT XR TRANSFER OF OUTSIDE FILMS Routine 09/16/2023 2:57 AM CDT XR TRANSFER OF OUTSIDE FILMS Routine 09/16/2023 2:56 AM CDT XR TRANSFER OF OUTSIDE FILMS Routine 09/16/2023 2:55 AM CDT XR TRANSFER OF OUTSIDE FILMS Routine 09/16/2023 2:[address] OUTSIDE CONSULT Routine 09/16/2023 2:52 AM CDT XR TRANSFER OF OUTSIDE FILMS Routine 09/16/2023 2:[address] OUTSIDE CONSULT Routine 09/16/2023 2:50 AM CDT XR TRANSFER OF OUTSIDE FILMS ED 09/16/2023 2:42 AM CDT documented in this encounter Results * COVID-19 Coronavirus RNA Nasopharyngeal (09/29/2023 12:50 PM CDT) COVID-19 RNA Negative Negative [facility] Nasopharyngeal 09/29/2023 12 :50 PM CDT 09/29/2023 1:33 PM CDT Narrative [facility] - 09/29/2023 2:09 PM CDT Is the patient experiencing any symptoms consistent with COVID (eg. Fever, cough, shortness of breath)?->No What is the reason for testing?->Screening for post-acute care placement ??Interpretive data: Synonyms for this test include: PCR and NAAT . ??This test is performed using the [employer] Xpert Xpress plus assay. This is a real-time RT-PCR test intended for the qualitative detection of nucleic acid from the SARS-CoV-2. This assay has been reviewed by the FDA for Emergency Use Authorization (EUA). The performance characteristics have been verified by the performing laboratory. Results must be considered in the clinical context and a negative result does not rule out infection. Interpretive data last revised September 11, 2021. ??Interpretive data: Synonyms for this test include: PCR and NAAT . ??This test is performed using the [employer] Xpert Xpress plus assay. This is a real-time RT-PCR test intended for the qualitative detection of nucleic acid from the SARS-CoV-2. This assay has been reviewed by the FDA for Emergency Use Authorization (EUA). The performance characteristics have been verified by the performing laboratory. Results must be considered in the clinical context and a negative result does not rule out infection. Interpretive data last revised September 11, 2021. Penny Luna [facility] MICROBIOLOGY - G ENERAL ORDERABLES Final Result [facility] Department [place] [address] [facility] * XR Spine Cervical 2 or 3 Views (09/26/2023 11:16 AM CDT) Anatomical Region Laterality Modality Spine N/A Computed Radiogr aphy 09/26/2023 3:54 PM CDT Impressions 09/26/2023 3:54 PM CDT 1. ??Unchanged posterior instrumented spinal fusion from C2-C7 Electronically signed by: Ken Gerard MD Narrative 09/26/2023 3:54 PM CDT EXAMINATION: XR SPINE CERVICAL 2 OR 3 VIEWS HISTORY: ??Cervical fusion FINDINGS: 4 radiographs of the cervical spine are compared to 09/24/2023. The patient is imaged wearing a collar. ??Redemonstrated posterior decompression from C3-C6 and instrumented spinal fusion from C2-C7. No prevertebral soft tissue swelling. Procedure Note Josefina Gerard MD - 09/26/2023 EXAMINATION: XR SPINE CERVICAL 2 OR 3 VIEWS HISTORY: Cervical fusion FINDINGS: 4 radiographs of the cervical spine are compared to 09/24/2023. The patient is imaged wearing a collar. Redemonstrated posterior decompression from C3-C6 and instrumented spinal fusion from C2-C7. No prevertebral soft tissue swelling. IMPRESSION: 1. Unchanged posterior instrumented spinal fusion from C2-C7 Electronically signed by: Ken Gerard MD us Ibrahima Middleton MD IMG XR PROCEDURES Final Res ult * eGFR (09/25/2023 10:51 PM CDT) eGFR >90 >=60 mL/min/1. 73 m2 Comment: Interpretive Data Reference Interval Normal ?>/= 90 mL/min/1.73m2 Mildly decreased* ? 60 - 89 mL/min/1.73m2 Mildly to moderately decreased ?45 - 59 mL/min/1.73m2 Moderately to severely decreased ??30 - 44 mL/min/1.73m2 Severely decreased ?15 - 29 mL/min/1.73m2 Kidney Failure ?< 15 ??mL/min/1.73m2 *Relative to young adult level Estimated glomerular filtration rate is determined by the 2020 CKD-EPI equation recommended by the National Kidney Foundation (A Unifying Approach to GFR Estimation: Recommendations of the NKF-ASK Task Force on Reassessing the Inclusion of Race in Diagnosing Kidney Disease, JASN 202). The CKD-EPI equation should not be used for patients with unstable renal function and has not been validated in children and those over 70. Current interpretive data was last reviewed 2021. Blood 09/25/2023 10:5 1 PM CDT 09/26/2023 12:11 AM CDT us Ibrahima Middleton MD LAB BLOOD ORDERABLES Final Result [facility] [place] [address] * (ABNORMAL) Basic metabolic panel (09/25/2023 10:51 PM CDT) Sodium 137 135 - 145 mmol/L Potassium, pl 4.3 3.3 - 4.9 mmol/L [facility] Chloride 100 97 - 110 mmol/L [facility] CO2 30 22 - 32 mmol/L [facility] Anion gap 7 2 - 15 mmol/L [facility] BUN 12 6 - 25 mg/dL [facility] Creatinine 0.49(L) 0.60 - 1.10 mg/dL [facility] Glucose 102 70 - 199 mg/dL [facility] Comment: Interpretive Data Fasting glucose >/= 126 mg/dl is diagnostic for diabetes. ?? Fasting is defined as no caloric intake for at least 8 hours. Fasting glucose between 100 mg/dl to 125 mg/dl is diagnostic of prediabetes. In a patient with classic symptoms of hyperglycemia or hyperglycemic crisis, a random glucose >/= 200 mg/dl is diagnostic for diabetes. In the absence of unequivocal hyperglycemia, results should be confirmed by repeat testing. The classification and Diagnosis of Diabetes Diabetes Care 2021; 46: S19-S40. Current interpretive data was last revised 2022. Calcium 8.5 8.5 - 10.3 mg/dL [facility] Blood 09/25/2023 10:5 1 PM CDT 09/26/2023 12:11 AM CDT Ibrahima Middleton MD LAB BLOOD ORDERABLES Final Result Performing Organization Address [facility] Co de Phone Number [facility] [place] [address] * Infection Prevention Clement auris PCR, surveillance Axilla/Groin (09/25/2023 6:26 PM CDT) Pathologist [facility] Clement auris DNA Not Detected Not Detected [facility] Comment: Interpretive Data Testing performed by [facility] Molecular Infectious Disease Laboratory using the [employer] MDX Clement auris assay. ??This assay detects DNA from Clement auris using Real-Time PCR. ??This assay is laboratory developed and is not cleared by the [place] Food and Drug Administration. ??The performance characteristics have been verified by the [facility] Molecular Infectious Disease Laboratory. Interpretive data was last reviewed on 08/05/2023 Axilla/Groin 09/25/2023 6:26 PM CDT 09/25/2023 6:42 PM CDT Jacoby Nguyen MD LAB MICROBIOLOGY - GENERAL OR DERABLES Final Result Performing Organization Address [facility] Co de Phone Number [facility] [place] [address] [facility] * POCT glucose (09/25/2023 2:06 PM CDT) Pathologist [facility] Glucose, POC 127 70 - 199 mg/dL Blood 09/25/2023 2:06 PM CDT 09/25/2023 2:06 PM CDT us Ibrahima Middleton MD LAB POCT ORDERABLES - DEVIC E Final Result [facility] Department of Laboratories [place], [place] [id number] * US Vein Duplex Upper Extremity Right Limited, Unilateral (09/25/2023 10:27 AM CDT) Anatomical Region Laterality Modality Vascular Right Ultrasound 09/25/2023 9:24 AM CDT Narrative 09/27/2023 8:50 PM CDT [facility] - Department of Vascular Surgery, Vascular Laboratory [address] [place] [id number] Upper Extremity Venous Ultrasound Report Patient Name: AIDEE DOMÍNGUEZ : 1945 (78y 5m) Study Date: 09/25/2023 9:24:11 AM Gender: F Tech: DX Location: [id number] Ref Provider: IBRAHIMA MIDDLETON ?Quality: Adequate Order Provider: IBRAHIMA MIDDLETON PROCEDURES: Vascular Report: Venous Duplex imaging was performed in the right upper extremity. The internal jugular, subclavian and axillary veins were evaluated for patency, spontaneity and phasicity with Doppler, compression and augmentation maneuvers. The brachial, basilic and cephalic veins were also evaluated with compression maneuvers. INDICATIONS: Localized edema. FINDINGS: Performing Traffic Superintendent: Erick Garay RVT. Right: Unable to obtain [...] above. Electronically Signed By: Paul Moran MD [facility] 2023-09-27 20:49:52 CDT Procedure Note Paul Moran MD - 09/27/2023 [facility] - Department of Vascular Surgery,Vascular Laboratory [address] [place] [address] Upper Extremity Venous Ultrasound Report Patient Name: AIDEE DOMÍNGUEZ : 1945 (78y 5m) Study Date: 09/25/2023 9:24:11 AM Gender: F Tech: DX Location: [id number] Ref Provider: IBRAHIMA MIDDLETON Quality: Adequate Order Provider: IBRAHIMA MIDDLETON PROCEDURES: Vascular Report: Venous Duplex imaging was performed in the right upper extremity. Theinternal jugular, subclavian and axillary veins were evaluated for patency, spontaneity andphasicity with Doppler, compression and augmentation maneuvers. The brachial, basilic andcephalic veins were also evaluated with compression maneuvers. INDICATIONS: Localized edema. FINDINGS: Performing Traffic Superintendent: Erick Garay RVT. Right: Unable to obtain [...] above. Electronically Signed By: Paul Moran MD [facility] 2023-09-27 20:49:52 CDT Ibrahima Middleton MD IMG US PROCEDURES Final Res ult * POCT glucose (09/25/2023 7:25 AM CDT) Glucose, POC 127 70 - 199 mg/dL Blood 09/25/2023 7:25 AM CDT 09/25/2023 7:25 AM CDT Ibrahima Middleton MD LAB POCT ORDERABLES - DEVIC E Final Result Performing Organization Address City/State/[facility] Co ar Phone Number [facility] [place] [address] * XR Chest 1 View (09/24/2023 10:45 PM CDT) Anatomical Region Laterality Modality Body, Chest N/A Digital Radiogra phy 09/25/2023 11:2 5 AM CDT Impressions 09/25/2023 12:32 PM CDT Comparison radiographs dated 09/21/2023. Stable cardiomediastinal silhouette with mild widening of the mediastinum. ??Mild bibasilar atelectasis. ??No pleural effusion, pulmonary edema, or pneumothorax. Dictated by: Chelo Rubio MD The radiology attending physician has personally reviewed this study, and had reviewed and/or edited this written report and agrees with it. Electronically signed by: Aquilino Person M.D. Narrative 09/25/2023 12:32 PM CDT EXAMINATION: 1 view chest radiograph Procedure Note Aquilino Person MD - 09/25/2023 EXAMINATION: 1 view chest radiograph IMPRESSION: Comparison radiographs dated 09/21/2023. Stable cardiomediastinal silhouette with mild widening of the mediastinum. Mild bibasilar atelectasis. No pleural effusion, pulmonary edema, or pneumothorax. Dictated by: Chelo Rubio MD The radiology attending physician has personally reviewed this study, and had reviewed and/or edited this written report and agrees with it. Electronically signed by: Aquilino Person M.D. Ibrahima Middleton MD IMG XR PROCEDURES Final Res ult * eGFR (09/24/2023 9:16 PM CDT) eGFR >90 >=60 mL/min/1. 73 m2 Comment: Interpretive Data Reference Interval Normal ?>/= 90 mL/min/1.73m2 Mildly decreased* ? 60 - 89 mL/min/1.73m2 Mildly to moderately decreased ?45 - 59 mL/min/1.73m2 Moderately to severely decreased ??30 - 44 mL/min/1.73m2 Severely decreased ?15 - 29 mL/min/1.73m2 Kidney Failure ?< 15 ??mL/min/1.73m2 *Relative to young adult level Estimated glomerular filtration rate is determined by the 2020 CKD-EPI equation recommended by the National Kidney Foundation (A Unifying Approach to GFR Estimation: Recommendations of the NKF-ASK Task Force on Reassessing the Inclusion of Race in Diagnosing Kidney Disease, JASN 202). The CKD-EPI equation should not be used for patients with unstable renal function and has not been validated in children and those over 70. Current interpretive data was last reviewed 2021. Blood 09/24/2023 9:16 PM CDT 09/24/2023 9:46 PM CDT Ibrahima Middleton MD LAB BLOOD ORDERABLES Final Result Performing Organization Address City/[facility] [place] [address] * Phosphorus (09/24/2023 9:16 PM CDT) [facility] Phosphorus, pl 3.3 2.3 - 4.5 mg/dL Blood 09/24/2023 9:16 PM CDT 09/24/2023 9:46 PM CDT Ibrahima Middleton MD LAB BLOOD ORDERABLES Final Result Performing Organization Address [facility] [place] [address] * Magnesium (09/24/2023 9:16 PM CDT) [facility] Magnesium 1.9 1.4 - 2.5 mg/dL Blood 09/24/2023 9:16 PM CDT 09/24/2023 9:46 PM CDT Ibrahima Middleton MD LAB BLOOD ORDERABLES Final Result Performing Organization Address [facility] Co de Phone Number [facility] [place] [address] * (ABNORMAL) CBC without differential (09/24/2023 9:16 PM CDT) [facility] WBC 12.2(H) 3.8 - 9.9 K/cumm Hgb 9.2(L) 11.9 - 15.5 g/dL [facility] Hct 29.1(L) 35.6 - 45.5 % [facility] Plt 521(H) 150 - 400 K/cumm [facility] MPV 9.7 9.1 - 12.3 fL [facility] RBC 3.12(L) 3.90 - 5.20 M/cumm [facility] MCV 93.3 81.3 - 96.4 fL [facility] MCH 29.5 27.1 - 33.3 pg [facility] MCHC 31.6(L) 32.3 - 35.7 g/dL [facility] RDW CV 14.0 11.1 - 14.9 % [facility] RDW SD 47.3 35.7 - 48.1 fL [facility] NRBC abs 0.00 0.00 - 0.01 K/cumm [facility] Blood 09/24/2023 9:16 PM CDT 09/24/2023 9:53 PM CDT Ibrahima Middleton MD LAB BLOOD ORDERABLES Final Result [facility] Department [place] [address] * (ABNORMAL) Basic metabolic panel (09/24/2023 9:16 PM CDT) Pathologist [facility] Sodium 140 135 - 145 mmol/L Potassium, pl 4.5 3.3 - 4.9 mmol/L [facility] Chloride 104 97 - 110 mmol/L [facility] CO2 29 22 - 32 mmol/L [facility] Anion gap 7 2 - 15 mmol/L [facility] BUN 10 6 - 25 mg/dL [facility] Creatinine 0.46(L) 0.60 - 1.10 mg/dL [facility] Glucose 125 70 - 199 mg/dL [facility] Comment: Interpretive Data Fasting glucose >/= 126 mg/dl is diagnostic for diabetes. ?? Fasting is defined as no caloric intake for at least 8 hours. Fasting glucose between 100 mg/dl to 125 mg/dl is diagnostic of prediabetes. In a patient with classic symptoms of hyperglycemia or hyperglycemic crisis, a random glucose >/= 200 mg/dl is diagnostic for diabetes. In the absence of unequivocal hyperglycemia, results should be confirmed by repeat testing. The classification and Diagnosis of Diabetes Diabetes Care 2021; 46: S19-S40. Current interpretive data was last revised 2022. Calcium 8.5 8.5 - 10.3 mg/dL [facility] Blood 09/24/2023 9:16 PM CDT 09/24/2023 9:46 PM CDT Ibrahima Middleton MD LAB BLOOD ORDERABLES Final Result [facility] [place] [address] * XR Spine Cervical 2 or 3 Views (09/24/2023 9:36 AM CDT) Anatomical Region Laterality Modality Spine N/A Computed Radiogr aphy 09/24/2023 10:0 3 AM CDT Impressions 09/24/2023 2:15 PM CDT 1. ??New posterior instrumented fusion from C2 to C7 with posterior decompression of C3-C6. Dictated by: Juanito Almeida MD PHD The radiology attending physician has personally reviewed this study, and had reviewed and/or edited this written report and agrees with it. Electronically signed by: Nathaniel Christianson MD Narrative 09/24/2023 2:15 PM CDT EXAMINATION: XR SPINE CERVICAL 2 OR 3 VIEWS HISTORY: ??Pain. FINDINGS: 2 exposures of the cervical spine compared to MRI 09/18/2023. There is new posterior instrumented fusion from C2 to C7 with decompression from C3 to C6. ??Instrumentation is intact. ??No new acute fracture. Procedure Note Nathaniel Christianson MD - 09/24/2023 EXAMINATION: XR SPINE CERVICAL 2 OR 3 VIEWS HISTORY: Pain. FINDINGS: 2 exposures of the cervical spine compared to MRI 09/18/2023. There is new posterior instrumented fusion from C2 to C7 with decompression from C3 to C6. Instrumentation is intact. No new acute fracture. IMPRESSION: 1. New posterior instrumented fusion from C2 to C7 with posterior decompression of C3-C6. Dictated by: Juanito Almeida MD PHD The radiology attending physician has personally reviewed this study, and had reviewed and/or edited this written report and agrees with it. Electronically signed by: Nathaniel Christianson MD us Ibrahima Middleton MD IMG XR PROCEDURES Final Res ult * Critical Care (09/23/2023 6:20 PM CDT) Narrative Mally Roberts MD - 09/23/2023 6:20 PM CDT Mally Roberts MD ? 09/24/2023 ??5:04 AM Critical Care Performed by: Mally Roberts MD Authorized by: Mally Roberts MD ?? CRITICAL CARE: ??Team: ??SICU RED ??Shift: ??PM ??Level of Billing: ??Critical Care ??My time spent with this patient was 30 minutes: Critical Provider Statement: I have seen and examined the patient on this day of service. I have reviewed and confirmed the history, physical exam, laboratory and radiologic data as documented in the signed ICU note. I have reviewed and discussed my treatment plan with the ICU team and other medical/senior microsoft consultant staff, making frequent assessments and decisions regarding this patient's complex medical care. Critical Care time was exclusive of time spent performing separately billed procedures, treating other patients, and teaching. This time was in addition to and separate from critical care provided by other practitioners in my group on this day of service. Critical Care was necessary to treat or prevent imminent or life-threatening deterioration of the following conditions: ? Acute pain/acute postoperative pain ?? Severe long-bone fracture and Spinal cord injury/spine fracture ??This time was spent by me doing the following: ? Acute pain control ?? Advanced wound care and Spinal immobilization us Mally Roberts MD IN CLINIC/BEDSIDE ORDERABLES F inal Result * eGFR (09/23/2023 4:04 PM CDT) [facility] eGFR >90 >=60 mL/min/1. 73 m2 Comment: Interpretive Data Reference Interval Normal ?>/= 90 mL/min/1.73m2 Mildly decreased* ? 60 - 89 mL/min/1.73m2 Mildly to moderately decreased ?45 - 59 mL/min/1.73m2 Moderately to severely decreased ??30 - 44 mL/min/1.73m2 Severely decreased ?15 - 29 mL/min/1.73m2 Kidney Failure ?< 15 ??mL/min/1.73m2 *Relative to young adult level Estimated glomerular filtration rate is determined by the 2020 CKD-EPI equation recommended by the National Kidney Foundation (A Unifying Approach to GFR Estimation: Recommendations of the NKF-ASK Task Force on Reassessing the Inclusion of Race in Diagnosing Kidney Disease, JASN 2020). The CKD-EPI equation should not be used for patients with unstable renal function and has not been validated in children and those over 70. Current interpretive data was last reviewed 2021. Blood 09/23/2023 4:04 PM CDT 09/23/2023 4:28 PM CDT Ibrahima Middleton MD LAB BLOOD ORDERABLES Final Result Performing Organization Address City/[facility] Co de Phone Number [facility] [place] [address] * Phosphorus (09/23/2023 4:04 PM CDT) Phosphorus, pl 3.8 2.3 - 4.5 mg/dL Blood 09/23/2023 4:04 PM CDT 09/23/2023 4:28 PM CDT Ibrahima Middleton MD LAB BLOOD ORDERABLES Final Result [facility] [place] [address] * Magnesium (09/23/2023 4:04 PM CDT) Magnesium 1.9 1.4 - 2.5 mg/dL Blood 09/23/2023 4:04 PM CDT 09/23/2023 4:28 PM CDT Ibrahima Middleton MD LAB BLOOD ORDERABLES Final Result Performing Organization Address [facility] Co de Phone Number [facility] [place] [address] * (ABNORMAL) CBC without differential (09/23/2023 4:04 PM CDT) Pathologist [facility] WBC 13.9(H) 3.8 - 9.9 K/cumm Hgb 9.5(L) 11.9 - 15.5 g/dL [facility] Hct 30.3(L) 35.6 - 45.5 % [facility] Plt 425(H) 150 - 400 K/cumm [facility] MPV 10.0 9.1 - 12.3 fL [facility] RBC 3.25(L) 3.90 - 5.20 M/cumm [facility] MCV 93.2 81.3 - 96.4 fL [facility] MCH 29.2 27.1 - 33.3 pg [facility] MCHC 31.4(L) 32.3 - 35.7 g/dL [facility] RDW CV 13.8 11.1 - 14.9 % [facility] RDW SD 46.5 35.7 - 48.1 fL [facility] NRBC abs 0.00 0.00 - 0.01 K/cumm [facility] Blood 09/23/2023 4:04 PM CDT 09/23/2023 4:28 PM CDT Ibrahima Middleton MD LAB BLOOD ORDERABLES Final Result Performing Organization Address [facility]/ZIP Co de Phone Number [facility] [place] [address] * (ABNORMAL) Basic metabolic panel (09/23/2023 4:04 PM CDT) Pathologist [facility] Sodium 141 135 - 145 mmol/L Potassium, pl 4.5 3.3 - 4.9 mmol/L [facility] Chloride 104 97 - 110 mmol/L [facility] CO2 32 22 - 32 mmol/L [facility] Anion gap 5 2 - 15 mmol/L [facility] BUN 10 6 - 25 mg/dL [facility] Creatinine 0.45(L) 0.60 - 1.10 mg/dL [facility] Glucose 121 70 - 199 mg/dL [facility] Comment: Interpretive Data Fasting glucose >/= 126 mg/dl is diagnostic for diabetes. ?? Fasting is defined as no caloric intake for at least 8 hours. Fasting glucose between 100 mg/dl to 125 mg/dl is diagnostic of prediabetes. In a patient with classic symptoms of hyperglycemia or hyperglycemic crisis, a random glucose >/= 200 mg/dl is diagnostic for diabetes. In the absence of unequivocal hyperglycemia, results should be confirmed by repeat testing. The classification and Diagnosis of Diabetes Diabetes Care 202; 46: S19-S40. Current interpretive data was last revised 2022. Calcium 8.4(L) 8.5 - 10.3 mg/dL [facility] Blood 09/23/2023 4:04 PM CDT 09/23/2023 4:28 PM CDT Ibrahima Middleton MD LAB BLOOD ORDERABLES Final Result [facility] [place] [address] * eGFR (09/22/2023 8:04 PM CDT) Pathologist [facility] eGFR >90 >=60 mL/min/1. 73 m2 Comment: Interpretive Data Reference Interval Normal ?>/= 90 mL/min/1.73m2 Mildly decreased* ? 60 - 89 mL/min/1.73m2 Mildly to moderately decreased ?45 - 59 mL/min/1.73m2 Moderately to severely decreased ??30 - 44 mL/min/1.73m2 Severely decreased ?15 - 29 mL/min/1.73m2 Kidney Failure ?< 15 ??mL/min/1.73m2 *Relative to young adult level Estimated glomerular filtration rate is determined by the 2020 CKD-EPI equation recommended by the National Kidney Foundation (A Unifying Approach to GFR Estimation: Recommendations of the NKF-ASK Task Force on Reassessing the Inclusion of Race in Diagnosing Kidney Disease, JASN 2020). The CKD-EPI equation should not be used for patients with unstable renal function and has not been validated in children and those over 70. Current interpretive data was last reviewed 2021. Blood 09/22/2023 8:04 PM CDT 09/22/2023 8:20 PM CDT us Ibrahima Middleton MD LAB BLOOD ORDERABLES Final Result Performing Organization Address City/[facility] Co de Phone Number [facility] [place] [address] * Type and screen (09/22/2023 8:04 PM CDT) Pathologist [facility] ABO Rh O Positive Alejandrina, indirect Negative [facility] Blood 09/22/2023 8:04 PM CDT 09/22/2023 8:14 PM CDT Narrative [facility] - 09/22/2023 9:13 PM CDT Has the patient had Daratumumab or Isatuximab in the past 6 months?->Unknown us Sterling Patrick MD LAB BLOOD BANK TEST OR DERABLES Final Result Performing Organization Address City/[facility] Co de Phone Number [facility] [place] [address] * (ABNORMAL) Phosphorus (09/22/2023 8:04 PM CDT) Pathologist [facility] Phosphorus, pl 1.9(L) 2.3 - 4.5 mg/dL Blood 09/22/2023 8:04 PM CDT 09/22/2023 8:20 PM CDT Ibrahima Middleton MD LAB BLOOD ORDERABLES Final Result Performing Organization Address City/[facility] Co de Phone Number [facility] [place] [address] * Magnesium (09/22/2023 8:04 PM CDT) [facility] Magnesium 1.8 1.4 - 2.5 mg/dL Blood 09/22/2023 8:04 PM CDT 09/22/2023 8:20 PM CDT Ibrahima Middleton MD LAB BLOOD ORDERABLES Final Result Performing Organization Address [facility] de Phone Number [facility] [place] [address] * (ABNORMAL) CBC without differential (09/22/2023 8:04 PM CDT) [facility] WBC 10.6(H) 3.8 - 9.9 K/cumm Hgb 8.4(L) 11.9 - 15.5 g/dL [facility] Hct 27.3(L) 35.6 - 45.5 % [facility] Plt 352 150 - 400 K/cumm [facility] MPV 10.0 9.1 - 12.3 fL [facility] RBC 2.91(L) 3.90 - 5.20 M/cumm [facility] MCV 93.8 81.3 - 96.4 fL [facility] MCH 28.9 27.1 - 33.3 pg [facility] MCHC 30.8(L) 32.3 - 35.7 g/dL [facility] RDW CV 13.7 11.1 - 14.9 % [facility] RDW SD 46.5 35.7 - 48.1 fL [facility] NRBC abs 0.00 0.00 - 0.01 K/cumm [facility] Blood 09/22/2023 8:04 PM CDT 09/22/2023 8:20 PM CDT Ibrahima Middleton MD LAB BLOOD ORDERABLES Final Result Performing Organization Address City/[facility]/ZIP Co de Phone Number [facility] [place] [address] * (ABNORMAL) Basic metabolic panel (09/22/2023 8:04 PM CDT) [facility] Sodium 138 135 - 145 mmol/L Potassium, pl 4.5 3.3 - 4.9 mmol/L [facility] Chloride 102 97 - 110 mmol/L [facility] CO2 30 22 - 32 mmol/L [facility] Anion gap 6 2 - 15 mmol/L [facility] BUN 9 6 - 25 mg/dL [facility] Creatinine 0.42(L) 0.60 - 1.10 mg/dL [facility] Glucose 135 70 - 199 mg/dL [facility] Comment: Interpretive Data Fasting glucose >/= 126 mg/dl is diagnostic for diabetes. ?? Fasting is defined as no caloric intake for at least 8 hours. Fasting glucose between 100 mg/dl to 125 mg/dl is diagnostic of prediabetes. In a patient with classic symptoms of hyperglycemia or hyperglycemic crisis, a random glucose >/= 200 mg/dl is diagnostic for diabetes. In the absence of unequivocal hyperglycemia, results should be confirmed by repeat testing. The classification and Diagnosis of Diabetes Diabetes Care 2021; 46: S19-S40. Current interpretive data was last revised 2022. Calcium 8.0(L) 8.5 - 10.3 mg/dL [facility] Blood 09/22/2023 8:04 PM CDT 09/22/2023 8:20 PM CDT Ibrahima Middleton MD LAB BLOOD ORDERABLES Final Result Performing Organization Address City/[facility] Co de Phone Number [facility] [place] [address] * Critical Care (09/22/2023 7:39 PM CDT) Narrative Mally Roberts MD - 09/22/2023 7:39 PM CDT Mally Roberts MD ? 09/23/2023 ??6:16 AM Critical Care Performed by: Mally Roberts MD Authorized by: Mally Roberts MD ?? CRITICAL CARE: ??Team: ??SICU RED ??Shift: ??PM ??Level of Billing: ??Critical Care ??My time spent with this patient was 30 minutes: Critical Provider Statement: I have seen and examined the patient on this day of service. I have reviewed and confirmed the history, physical exam, laboratory and radiologic data as documented in the signed ICU note. I have reviewed and discussed my treatment plan with the ICU team and other medical/senior microsoft consultant staff, making frequent assessments and decisions regarding this patient's complex medical care. Critical Care time was exclusive of time spent performing separately billed procedures, treating other patients, and teaching. This time was in addition to and separate from critical care provided by other practitioners in my group on this day of service. Critical Care was necessary to treat or prevent imminent or life-threatening deterioration of the following conditions: ? Acute pain/acute postoperative pain ?? Spinal cord injury/spine fracture and Severe long-bone fracture ??This time was spent by me doing the following: ? Serial bedside patient exams and Serial laboratory checks ?? Acute pain control ?? Spinal immobilization and Acute fracture care ?? I spent time reviewing and interpreting data from bedside monitors, laboratory results, and imaging us Mally Roberts MD IN CLINIC/BEDSIDE ORDERABLES F inal Result * POCT glucose (09/22/2023 7:16 AM CDT) Glucose, POC 105 70 - 199 mg/dL Blood 09/22/2023 7:16 AM CDT 09/22/2023 7:16 AM CDT us Ibrahima Middleton MD LAB POCT ORDERABLES - DEVIC E Final Result Performing Organization Address [facility] de Phone Number [facility] [place] [address] * POCT glucose (09/22/2023 3:23 AM CDT) Glucose, POC 104 70 - 199 mg/dL Blood 09/22/2023 3:23 AM CDT 09/22/2023 3:23 AM CDT Ibrahima Middleton MD LAB POCT ORDERABLES - DEVIC E Final Result Performing Organization Address [facility] de Phone Number [facility] [place] [address] * POCT glucose (09/21/2023 11:34 PM CDT) Pathologist [facility] Glucose, POC 115 70 - 199 mg/dL Blood 09/21/2023 11:3 4 PM CDT 09/21/2023 11:34 PM CDT Ibrahima Middleton MD LAB POCT ORDERABLES - DEVIC E Final Result Performing Organization Address [facility] de Phone Number [facility] [place] [address] * eGFR (09/21/2023 8:51 PM CDT) eGFR >90 >=60 mL/min/1. 73 m2 Comment: Interpretive Data Reference Interval Normal ?>/= 90 mL/min/1.73m2 Mildly decreased* ? 60 - 89 mL/min/1.73m2 Mildly to moderately decreased ?45 - 59 mL/min/1.73m2 Moderately to severely decreased ??30 - 44 mL/min/1.73m2 Severely decreased ?15 - 29 mL/min/1.73m2 Kidney Failure ?< 15 ??mL/min/1.73m2 *Relative to young adult level Estimated glomerular filtration rate is determined by the 2020 CKD-EPI equation recommended by the National Kidney Foundation (A Unifying Approach to GFR Estimation: Recommendations of the NKF-ASK Task Force on Reassessing the Inclusion of Race in Diagnosing Kidney Disease, JASN 2020). The CKD-EPI equation should not be used for patients with unstable renal function and has not been validated in children and those over 70. Current interpretive data was last reviewed 2021. Blood 09/21/2023 8:51 PM CDT 09/21/2023 9:41 PM CDT Ibrahima Middleton MD LAB BLOOD ORDERABLES Final Result Performing Organization Address City/[facility]/ZIP Co de Phone Number [facility] [place] [address] * Phosphorus (09/21/2023 8:51 PM CDT) Phosphorus, pl 2.5 2.3 - 4.5 mg/dL Blood 09/21/2023 8:51 PM CDT 09/21/2023 9:41 PM CDT Ibrahima Middleton MD LAB BLOOD ORDERABLES Final Result [facility] [place] [address] * Magnesium (09/21/2023 8:51 PM CDT) Magnesium 1.8 1.4 - 2.5 mg/dL Blood 09/21/2023 8:51 PM CDT 09/21/2023 9:41 PM CDT Ibrahima Middleton MD LAB BLOOD ORDERABLES Final Result Performing Organization Address City/[facility]/ZIP Co de Phone Number [facility] [place] [address] * (ABNORMAL) CBC without differential (09/21/2023 8:51 PM CDT) [facility] WBC 12.3(H) 3.8 - 9.9 K/cumm Hgb 9.1(L) 11.9 - 15.5 g/dL [facility] Hct 28.1(L) 35.6 - 45.5 % [facility] Plt 348 150 - 400 K/cumm [facility] MPV 10.4 9.1 - 12.3 fL [facility] RBC 3.04(L) 3.90 - 5.20 M/cumm [facility] MCV 92.4 81.3 - 96.4 fL [facility] MCH 29.9 27.1 - 33.3 pg [facility] MCHC 32.4 32.3 - 35.7 g/dL [facility] RDW CV 13.6 11.1 - 14.9 % [facility] RDW SD 45.5 35.7 - 48.1 fL [facility] NRBC abs 0.00 0.00 - 0.01 K/cumm [facility] Blood 09/21/2023 8:51 PM CDT 09/21/2023 9:42 PM CDT Ibrahima Middleton MD LAB BLOOD ORDERABLES Final Result [facility] [place] [address] * (ABNORMAL) Basic metabolic panel (09/21/2023 8:51 PM CDT) Pathologist [facility] Sodium 139 135 - 145 mmol/L Potassium, pl 4.3 3.3 - 4.9 mmol/L [facility] Chloride 105 97 - 110 mmol/L [facility] CO2 29 22 - 32 mmol/L [facility] Anion gap 5 2 - 15 mmol/L [facility] BUN 6 6 - 25 mg/dL [facility] Creatinine 0.37(L) 0.60 - 1.10 mg/dL [facility] Glucose 143 70 - 199 mg/dL [facility] Comment: Interpretive Data Fasting glucose >/= 126 mg/dl is diagnostic for diabetes. ?? Fasting is defined as no caloric intake for at least 8 hours. Fasting glucose between 100 mg/dl to 125 mg/dl is diagnostic of prediabetes. In a patient with classic symptoms of hyperglycemia or hyperglycemic crisis, a random glucose >/= 200 mg/dl is diagnostic for diabetes. In the absence of unequivocal hyperglycemia, results should be confirmed by repeat testing. The classification and Diagnosis of Diabetes Diabetes Care 2021; 46: S19-S40. Current interpretive data was last revised 2022. Calcium 7.8(L) 8.5 - 10.3 mg/dL [facility] Blood 09/21/2023 8:51 PM CDT 09/21/2023 9:41 PM CDT us Ibrahima Middleton MD LAB BLOOD ORDERABLES Final Result [facility] [place] [address] * Critical Care (09/21/2023 8:02 PM CDT) Narrative Mally Roberts MD - 09/21/2023 8:02 PM CDT Mally Roberts MD ? 09/22/2023 ??9:40 PM Critical Care Performed by: Mally Roberts MD Authorized by: Mally Roberts MD ?? CRITICAL CARE: ??Team: ??SICU RED ??Shift: ??PM ??Level of Billing: ??Critical Care ??My time spent with this patient was 30 minutes: Critical Provider Statement: I have seen and examined the patient on this day of service. I have reviewed and confirmed the history, physical exam, laboratory and radiologic data as documented in the signed ICU note. I have reviewed and discussed my treatment plan with the ICU team and other medical/senior microsoft consultant staff, making frequent assessments and decisions regarding this patient's complex medical care. Critical Care time was exclusive of time spent performing separately billed procedures, treating other patients, and teaching. This time was in addition to and separate from critical care provided by other practitioners in my group on this day of service. Critical Care was necessary to treat or prevent imminent or life-threatening deterioration of the following conditions: ? Acute pain/acute postoperative pain ?? Spinal cord injury/spine fracture ??This time was spent by me doing the following: ? Serial bedside patient exams and Serial laboratory checks ?? Acute pain control ?? Spinal immobilization and Acute fracture care ?? I spent time reviewing and interpreting data from bedside monitors, laboratory results, and imaging Mally Roberts MD IN CLINIC/BEDSIDE ORDERABLES F inal Result * POCT glucose (09/21/2023 7:59 PM CDT) Glucose, POC 142 70 - 199 mg/dL Blood 09/21/2023 7:59 PM CDT 09/21/2023 7:59 PM CDT Ibrahima Middleton MD LAB POCT ORDERABLES - DEVIC E Final Result Performing Organization Address [facility] de Phone Number [facility] [place] [address] * POCT glucose (09/21/2023 3:43 PM CDT) Glucose, POC 129 70 - 199 mg/dL Blood 09/21/2023 3:43 PM CDT 09/21/2023 3:43 PM CDT Ibrahima Middleton MD LAB POCT ORDERABLES - DEVIC E Final Result Performing Organization Address [facility] Co de Phone Number [facility] [place] [address] * Blood culture Blood Arm, right (09/21/2023 12:29 PM CDT) Report Final Report: No growth Blood (Arm, right) 09/21/2023 12:29 PM CDT 09/21/2023 1:53 PM CDT Jena WILKINS - 09/25/2023 4:00 PM CDT Collection->Peripheral 1. ?Blood cultures are incubated for 4 days on a continuously monitored blood culture system. The first report of a negative culture is issued within 24 hours of receipt of the specimen in the laboratory. 2. ?Positive culture results are reported as soon as they are detected. 3. ?The most important factor for detection of microbes in the setting of bloodstream infection is the volume of blood submitted for culture. Failure to collect an optimal blood volume can result in false negative blood cultures. For pediatric patients, the recommended blood volume to collect is 1 mL of blood per year of patient age (up to 20 mL) per blood culture set. For adult patients, 20 mL of blood, divided equally between aerobic and anaerobic blood culture bottles, is recommended for each blood culture set. 4. ?For blood cultures with Gram-positive cocci, a rapid molecular test for organism identification may be performed using the [employer]ig[employer] Gram-Positive Blood Culture Assay. This assay detects microbial DNA in positive blood culture broth via hybridization of target DNA to capture oligonucleotides on a microarray. This assay has been cleared by the [place] Food and Drug Administration and its performance characteristics have been verified by the [facility] Microbiology Laboratory. 5. ?For questions about this culture, contact the Microbiology Laboratory at [phone]. Interpretive data was last revised on 2019. us Ibrahima Middleton MD LAB MICROBIOLOGY - GENERAL ORDERABLES Final Result [facility] Department [place] [address] * Blood culture Blood (09/21/2023 12:19 PM CDT) Report Final Report: No growth Blood 09/21/2023 12:1 9 PM CDT 09/21/2023 1:53 PM CDT Narrative [facility]AY WILKINS - 09/25/2023 4:00 PM CDT Collection->Peripheral 1. ?Blood cultures are incubated for 4 days on a continuously monitored blood culture system. The first report of a negative culture is issued within 24 hours of receipt of the specimen in the laboratory. 2. ?Positive culture results are reported as soon as they are detected. 3. ?The most important factor for detection of microbes in the setting of bloodstream infection is the volume of blood submitted for culture. Failure to collect an optimal blood volume can result in false negative blood cultures. For pediatric patients, the recommended blood volume to collect is 1 mL of blood per year of patient age (up to 20 mL) per blood culture set. For adult patients, 20 mL of blood, divided equally between aerobic and anaerobic blood culture bottles, is recommended for each blood culture set. 4. ?For blood cultures with Gram-positive cocci, a rapid molecular test for organism identification may be performed using the [employer]ig[employer] Gram-Positive Blood Culture Assay. This assay detects microbial DNA in positive blood culture broth via hybridization of target DNA to capture oligonucleotides on a microarray. This assay has been cleared by the [place] Food and Drug Administration and its performance characteristics have been verified by the [facility] Microbiology Laboratory. 5. ?For questions about this culture, contact the Microbiology Laboratory at [phone]. Interpretive data was last revised on 2019. Ibrahima Middleton MD LAB MICROBIOLOGY - GENERAL ORDERABLES Final Result [facility] [place] [address] * POCT glucose (09/21/2023 11:36 AM CDT) [facility] Signature Glucose, POC 128 70 - 199 mg/dL Blood 09/21/2023 11:3 6 AM CDT 09/21/2023 11:36 AM CDT Ibrahima Middleton MD LAB POCT ORDERABLES - DEVIC E Final Result [facility] [place] [address] * XR Chest 1 View (09/21/2023 10:57 AM CDT) Anatomical Region Laterality Modality Body, Chest N/A Computed Radiogr aphy 09/21/2023 11:4 6 AM CDT Impressions 09/21/2023 11:46 AM CDT A drain projects over the neck. ??Cervical fusion instrumentation is partially imaged. There are patchy airspace opacities in the lung bases which are nonspecific and could represent atelectasis versus aspiration and/or pneumonia in the appropriate clinical context. ??Small bilateral pleural effusions are present. ??No pneumothorax is identified. ??A subpleural nodule seen on the chest CT dated 09/16/2023 is not well evaluated radiographically. ??Mild atherosclerotic calcification is present at the aortic knob. ??Heart size is normal. Electronically signed by: Dash Dolan M.D. Narrative 09/21/2023 11:46 AM CDT EXAMINATION: XR CHEST 1 VIEW HISTORY: Fever COMPARISON: Chest CT dated 09/16/2023 Procedure Note Dash Dolan MD PhD - 09/21/2023 EXAMINATION: XR CHEST 1 VIEW HISTORY: Fever COMPARISON: Chest CT dated 09/16/2023 IMPRESSION: A drain projects over the neck. Cervical fusion instrumentation is partially imaged. There are patchy airspace opacities in the lung bases which are nonspecific and could represent atelectasis versus aspiration and/or pneumonia in the appropriate clinical context. Small bilateral pleural effusions are present. No pneumothorax is identified. A subpleural nodule seen on the chest CT dated 09/16/2023 is not well evaluated radiographically. Mild atherosclerotic calcification is present at the aortic knob. Heart size is normal. Electronically signed by: Dash Dolan M.D. Ibrahima Middleton MD IMG XR PROCEDURES Final Res ult * Infection Prevention Clement auris PCR, surveillance Axilla/Groin (09/21/2023 9:51 AM CDT) Clement auris DNA Not Detected Not Detected [facility] Comment: Interpretive Data Testing performed by [facility] Molecular Infectious Disease Laboratory using the [employer] MDX Clement auris assay. ??This assay detects DNA from Clement auris using Real-Time PCR. ??This assay is laboratory developed and is not cleared by the [facility] Food and Drug Administration. ??The performance characteristics have been verified by the [facility] Molecular Infectious Disease Laboratory. Interpretive data was last reviewed on 08/05/2023 Axilla/Groin 09/21/2023 9:51 AM CDT 09/21/2023 10:10 AM CDT Jacoby Nguyen MD LAB MICROBIOLOGY - GENERAL OR DERABLES Final Result Performing Organization Address City/[facility]/ZIP Co de Phone Number [facility] [place] [address] [facility] * POCT glucose (09/21/2023 7:34 AM CDT) Pathologist [facility] Glucose, POC 110 70 - 199 mg/dL Blood 09/21/2023 7:34 AM CDT 09/21/2023 7:34 AM CDT Ibrahima Middleton MD LAB POCT ORDERABLES - DEVIC E Final Result [facility] [place] [address] * Critical Care (09/21/2023 6:43 AM CDT) Narrative Noel Armijo MD - 09/21/2023 6:43 AM CDT Noel Armijo MD ? 10/12/2023 ??1:57 AM Critical Care Performed by: Noel Armijo MD Authorized by: Noel Amrijo MD ?? CRITICAL CARE: ??Team: ??SICU RED ??Shift: ??AM ??Level of Billing: ??Critical Care ??My time spent with this patient was 30 minutes: Critical Provider Statement: I have seen and examined the patient on this day of service. I have reviewed and confirmed the history, physical exam, laboratory and radiologic data as documented in the signed ICU note. I have reviewed and discussed my treatment plan with the ICU team and other medical/senior microsoft consultant staff, making frequent assessments and decisions regarding this patient's complex medical care. Critical Care time was exclusive of time spent performing separately billed procedures, treating other patients, and teaching. This time was in addition to and separate from critical care provided by other practitioners in my group on this day of service. Critical Care was necessary to treat or prevent imminent or life-threatening deterioration of the following conditions: ? Acute pain/acute postoperative pain ?? Post cervical fusion ?? Severe long-bone fracture ??This time was spent by me doing the following: ? Serial bedside patient exams ?? Acute pain control and Frequent neurologic exams ?? Initiation/active titration of vasoactive medications ?? Active and frequent reassessment of respiratory status and oxygen requirements ?? Acute fracture care ?? I spent time reviewing and interpreting data from bedside monitors, laboratory results, and imaging, I spent time discussing the management of this critically ill patient with consultants and the medical staff and I spent time documenting in the medical record us Noel Armijo MD IN CLINIC/BEDSIDE ORDERABLES Fi nal Result * POCT glucose (09/21/2023 3:47 AM CDT) Glucose, POC 107 70 - 199 mg/dL Blood 09/21/2023 3:47 AM CDT 09/21/2023 3:47 AM CDT us Ibrahima Middleton MD LAB POCT ORDERABLES - DEVIC E Final Result [facility] Department [place] [address] * Critical Care (09/21/2023 2:13 AM CDT) Narrative Niziolek, Mally, MD - 09/21/2023 2:13 AM CDT Mally Roberts MD ? 09/21/2023 ??2:40 AM Critical Care Performed by: Mally Roberts MD Authorized by: Mally Roberts MD ?? CRITICAL CARE: ??Team: ??SICU RED ??Shift: ??PM ??Level of Billing: ??Critical Care ??My time spent with this patient was 30 minutes: Critical Provider Statement: I have seen and examined the patient on this day of service. I have reviewed and confirmed the history, physical exam, laboratory and radiologic data as documented in the signed ICU note. I have reviewed and discussed my treatment plan with the ICU team and other medical/senior microsoft consultant staff, making frequent assessments and decisions regarding this patient's complex medical care. Critical Care time was exclusive of time spent performing separately billed procedures, treating other patients, and teaching. This time was in addition to and separate from critical care provided by other practitioners in my group on this day of service. Critical Care was necessary to treat or prevent imminent or life-threatening deterioration of the following conditions: ? Acute pain/acute postoperative pain ?? Spinal cord injury/spine fracture and Limb threatening condition ??This time was spent by me doing the following: ? Serial bedside patient exams and Serial laboratory checks ?? Acute pain control and Frequent neurologic exams ?? Initiation/active titration of vasoactive medications ?? Active and frequent monitoring of intake/output and volumen status ?? Advanced wound care, Acute fracture care and Spinal immobilization ?? I spent time reviewing and interpreting data from bedside monitors, laboratory results, and imaging us Mally Roberts MD IN CLINIC/BEDSIDE ORDERABLES F inal Result * POCT glucose (09/21/2023 12:26 AM CDT) Glucose, POC 110 70 - 199 mg/dL Blood 09/21/2023 12:2 6 AM CDT 09/21/2023 12:26 AM CDT Ibrahima Middleton MD LAB POCT ORDERABLES - DEVIC E Final Result Performing Organization Address City/[facility]/ZIP Co de Phone Number [facility] [place] [address] * eGFR (09/20/2023 8:27 PM CDT) Pathologist [facility] eGFR >90 >=60 mL/min/1. 73 m2 Comment: Interpretive Data Reference Interval Normal ?>/= 90 mL/min/1.73m2 Mildly decreased* ? 60 - 89 mL/min/1.73m2 Mildly to moderately decreased ?45 - 59 mL/min/1.73m2 Moderately to severely decreased ??30 - 44 mL/min/1.73m2 Severely decreased ?15 - 29 mL/min/1.73m2 Kidney Failure ?< 15 ??mL/min/1.73m2 *Relative to young adult level Estimated glomerular filtration rate is determined by the 2020 CKD-EPI equation recommended by the National Kidney Foundation (A Unifying Approach to GFR Estimation: Recommendations of the NKF-ASK Task Force on Reassessing the Inclusion of Race in Diagnosing Kidney Disease, JASN 2020). The CKD-EPI equation should not be used for patients with unstable renal function and has not been validated in children and those over 70. Current interpretive data was last reviewed 2021. Blood 09/20/2023 8:27 PM CDT 09/20/2023 8:46 PM CDT us Ibrahima Middleton MD LAB BLOOD ORDERABLES Final Result [facility] [place] [address] * Phosphorus (09/20/2023 8:27 PM CDT) Pathologist [facility] Phosphorus, pl 3.5 2.3 - 4.5 mg/dL Blood 09/20/2023 8:27 PM CDT 09/20/2023 8:46 PM CDT Ibrahima Middleton MD LAB BLOOD ORDERABLES Final Result Performing Organization Address [facility] de Phone Number [facility] [place] [address] * Magnesium (09/20/2023 8:27 PM CDT) [facility] Magnesium 2.4 1.4 - 2.5 mg/dL Blood 09/20/2023 8:27 PM CDT 09/20/2023 8:46 PM CDT Ibrahima Middleton MD LAB BLOOD ORDERABLES Final Result Performing Organization Address [facility] de Phone Number [facility] [place] [address] * (ABNORMAL) CBC without differential (09/20/2023 8:27 PM CDT) [facility] WBC 10.7(H) 3.8 - 9.9 K/cumm Hgb 9.1(L) 11.9 - 15.5 g/dL [facility] Hct 28.2(L) 35.6 - 45.5 % [facility] Plt 270 150 - 400 K/cumm [facility] MPV 10.3 9.1 - 12.3 fL [facility] RBC 3.08(L) 3.90 - 5.20 M/cumm [facility] MCV 91.6 81.3 - 96.4 fL [facility] MCH 29.5 27.1 - 33.3 pg [facility] MCHC 32.3 32.3 - 35.7 g/dL [facility] RDW CV 13.2 11.1 - 14.9 % [facility] RDW SD 44.2 35.7 - 48.1 fL [facility] NRBC abs 0.00 0.00 - 0.01 K/cumm [facility] Blood 09/20/2023 8:27 PM CDT 09/20/2023 8:45 PM CDT Ibrahima Middleton MD LAB BLOOD ORDERABLES Final Result Performing Organization Address [facility]/ZIP Co de Phone Number [facility] [place] [address] * (ABNORMAL) Basic metabolic panel (09/20/2023 8:27 PM CDT) [facility] Sodium 137 135 - 145 mmol/L Potassium, pl 4.2 3.3 - 4.9 mmol/L [facility] Chloride 103 97 - 110 mmol/L [facility] CO2 28 22 - 32 mmol/L [facility] Anion gap 6 2 - 15 mmol/L [facility] BUN 7 6 - 25 mg/dL [facility] Creatinine 0.36(L) 0.60 - 1.10 mg/dL [facility] Glucose 125 70 - 199 mg/dL [facility] Comment: Interpretive Data Fasting glucose >/= 126 mg/dl is diagnostic for diabetes. ?? Fasting is defined as no caloric intake for at least 8 hours. Fasting glucose between 100 mg/dl to 125 mg/dl is diagnostic of prediabetes. In a patient with classic symptoms of hyperglycemia or hyperglycemic crisis, a random glucose >/= 200 mg/dl is diagnostic for diabetes. In the absence of unequivocal hyperglycemia, results should be confirmed by repeat testing. The classification and Diagnosis of Diabetes Diabetes Care 2021; 46: S19-S40. Current interpretive data was last revised 2022. Calcium 7.7(L) 8.5 - 10.3 mg/dL [facility] Blood 09/20/2023 8:27 PM CDT 09/20/2023 8:46 PM CDT Ibrahima Middleton MD LAB BLOOD ORDERABLES Final Result Performing Organization Address [facility] Co de Phone Number [facility] [place] [address] * POCT glucose (09/20/2023 7:44 PM CDT) Glucose, POC 122 70 - 199 mg/dL Blood 09/20/2023 7:44 PM CDT 09/20/2023 7:44 PM CDT Ibrahima Middleton MD LAB POCT ORDERABLES - DEVIC E Final Result [facility] [place] [address] * Infection Prevention Clement auris PCR, surveillance Axilla/Groin (09/20/2023 4:29 PM CDT) [facility] Clement auris DNA Not Detected Not Detected [facility] Comment: Interpretive Data Testing performed by [facility] Molecular Infectious Disease Laboratory using the [employer] MDX Clement auris assay. ??This assay detects DNA from Clement auris using Real-Time PCR. ??This assay is laboratory developed and is not cleared by the [place] Food and Drug Administration. ??The performance characteristics have been verified by the [facility] Molecular Infectious Disease Laboratory. Interpretive data was last reviewed on 08/05/2023 Axilla/Groin 09/20/2023 4:29 PM CDT 09/20/2023 4:48 PM CDT Jacoby Nguyen MD LAB MICROBIOLOGY - GENERAL OR DERABLES Final Result [facility] [place] [address] [facility] * POCT glucose (09/20/2023 4:00 PM CDT) Glucose, POC 116 70 - 199 mg/dL Blood 09/20/2023 4:00 PM CDT 09/20/2023 4:00 PM CDT us Ibrahima Middleton MD LAB POCT ORDERABLES - DEVIC E Final Result Performing Organization Address [facility] Co de Phone Number [facility]AY [facility] [place] [address] * eGFR (09/20/2023 3:34 PM CDT) eGFR >90 >=60 mL/min/1. 73 m2 Comment: Interpretive Data Reference Interval Normal ?>/= 90 mL/min/1.73m2 Mildly decreased* ? 60 - 89 mL/min/1.73m2 Mildly to moderately decreased ?45 - 59 mL/min/1.73m2 Moderately to severely decreased ??30 - 44 mL/min/1.73m2 Severely decreased ?15 - 29 mL/min/1.73m2 Kidney Failure ?< 15 ??mL/min/1.73m2 *Relative to young adult level Estimated glomerular filtration rate is determined by the 2020 CKD-EPI equation recommended by the National Kidney Foundation (A Unifying Approach to GFR Estimation: Recommendations of the NKF-ASK Task Force on Reassessing the Inclusion of Race in Diagnosing Kidney Disease, JASN 2020). The CKD-EPI equation should not be used for patients with unstable renal function and has not been validated in children and those over 70. Current interpretive data was last reviewed 2021. Blood 09/20/2023 3:34 PM CDT 09/20/2023 3:50 PM CDT us Ibrahima Middleton MD LAB BLOOD ORDERABLES Final Result Performing Organization Address [facility] Co de Phone Number [facility] [place] [address] * (ABNORMAL) CBC without differential (09/20/2023 3:34 PM CDT) [facility] WBC 9.9 3.8 - 9.9 K/cumm Hgb 9.8(L) 11.9 - 15.5 g/dL [facility] Hct 30.7(L) 35.6 - 45.5 % [facility] Plt 277 150 - 400 K/cumm [facility] MPV 10.2 9.1 - 12.3 fL [facility] RBC 3.35(L) 3.90 - 5.20 M/cumm [facility] MCV 91.6 81.3 - 96.4 fL [facility] MCH 29.3 27.1 - 33.3 pg [facility] MCHC 31.9(L) 32.3 - 35.7 g/dL [facility] RDW CV 13.3 11.1 - 14.9 % [facility] RDW SD 44.0 35.7 - 48.1 fL [facility] NRBC abs 0.00 0.00 - 0.01 K/cumm [facility] Blood 09/20/2023 3:34 PM CDT 09/20/2023 3:50 PM CDT Ibrahima Middleton MD LAB BLOOD ORDERABLES Final Result Performing Organization Address [facility] Co de Phone Number [facility] [place] [address] * Phosphorus (09/20/2023 3:34 PM CDT) [facility] Phosphorus, pl 3.3 2.3 - 4.5 mg/dL Blood 09/20/2023 3:34 PM CDT 09/20/2023 3:50 PM CDT Ibrahima Middleton MD LAB BLOOD ORDERABLES Final Result Performing Organization Address [facility] Co de Phone Number [facility] [place] [address] * Magnesium (09/20/2023 3:34 PM CDT) Pathologist [facility] Magnesium 1.5 1.4 - 2.5 mg/dL Blood 09/20/2023 3:34 PM CDT 09/20/2023 3:50 PM CDT Ibrahima Middleton MD LAB BLOOD ORDERABLES Final Result [facility] [place] [address] * (ABNORMAL) Basic metabolic panel (09/20/2023 3:34 PM CDT) Pathologist [facility] Sodium 140 135 - 145 mmol/L Potassium, pl 3.7 3.3 - 4.9 mmol/L [facility] Chloride 102 97 - 110 mmol/L [facility] CO2 27 22 - 32 mmol/L [facility] Anion gap 11 2 - 15 mmol/L [facility] BUN 7 6 - 25 mg/dL [facility] Creatinine 0.35(L) 0.60 - 1.10 mg/dL [facility] Glucose 136 70 - 199 mg/dL [facility] Comment: Interpretive Data Fasting glucose >/= 126 mg/dl is diagnostic for diabetes. ?? Fasting is defined as no caloric intake for at least 8 hours. Fasting glucose between 100 mg/dl to 125 mg/dl is diagnostic of prediabetes. In a patient with classic symptoms of hyperglycemia or hyperglycemic crisis, a random glucose >/= 200 mg/dl is diagnostic for diabetes. In the absence of unequivocal hyperglycemia, results should be confirmed by repeat testing. The classification and Diagnosis of Diabetes Diabetes Care 202; 46: S19-S40. Current interpretive data was last revised 2022. Calcium 7.9(L) 8.5 - 10.3 mg/dL [facility] Blood 09/20/2023 3:34 PM CDT 09/20/2023 3:50 PM CDT Ibrahima Middleton MD LAB BLOOD ORDERABLES Final Result [facility] [place] [address] * [place] Fluoroscopy < 1 Hour (09/20/2023 1:05 PM CDT) Narrative [facility] - 09/20/2023 1:05 PM CDT The images from this study are not interpreted by Radiology. ??Please refer to the physician's procedure / OR operative note. us Hans Rodriguez MD IMG FLUOROSCOPY PROCEDU RES Final Result [facility] * (ABNORMAL) POC Blood Gas and Chemistries, Arterial - (09/20/2023 9:52 AM CDT) pH, Art POC 7.53(H) 7.35 - 7.45 pCO2, Art POC 41 35 - 45 mmHg [facility] pO2, Art POC 401(H) 83 - 108 mmHg [facility] Na, POC 137 135 - 145 mmol/L [facility] K POC 3.6 3.3 - 4.9 mmol/L [facility] Comment: Interpretive Data Not all point of care methods assess for hemolysis. Confirm with instrument and retest K+ if not consistent with clinical signs and symptoms. Current Interpretive Data was last revised on 2023. Cl, POC 108 97 - 110 mmol/L [facility] Ionized Ca, POC 4.64 4.50 - 5.10 mg/dL [facility] Glucose, POC 137 70 - 199 mg/dL [facility] Lactate, POC 1.2 0.7 - 2.2 mmol/L [facility] SO2 (cee) arterial 100(H) 90 - 95 % [facility] Base excess, POC 10.6 mmol/L [facility] HCO3, Art POC 34(H) 20 - 30 mmol/L [facility] Hct, POC 28.0(L) 36.3 - 45.3 % [facility] O2 Sat, Art POC (Calc) 100 % [facility] Total Hb, POC 9.4(L) 11.9 - 15.5 g/dL [facility] Blood 09/20/2023 9:52 AM CDT 09/20/2023 9:52 AM CDT Ibrahima Middleton MD LAB POCT ORDERABLES - DEVIC E Final Result Performing Organization Address [facility] de Phone Number [facility] [place] [address] * (ABNORMAL) Protime-INR (09/19/2023 11:58 PM CDT) PT 14.4(H) 10.3 - 13.7 sec INR 1.26(H) 0.90 - 1.20 [facility] Comment: Interpretive data Oral anticoagulant therapeutic ranges: Venous thromboembolism prophylaxis or treatment: 2.0-3.0 CARDIOLOGY Standard range: 2.0-3.0 High-intensity range: 2.5-3.5 Refer to indication-specific guidelines for appropriate target ranges for prosthetic heart valve replacement. Current interpretive data was last revised on 2019. Blood 09/19/2023 11:5 8 PM CDT 09/20/2023 12:40 AM CDT Ibrahima Middleton MD LAB BLOOD ORDERABLES Final Result Performing Organization Address [facility] de Phone Number [facility] [place] [address] * eGFR (09/19/2023 11:58 PM CDT) eGFR >90 >=60 mL/min/1. 73 m2 Comment: Interpretive Data Reference Interval Normal ?>/= 90 mL/min/1.73m2 Mildly decreased* ? 60 - 89 mL/min/1.73m2 Mildly to moderately decreased ?45 - 59 mL/min/1.73m2 Moderately to severely decreased ??30 - 44 mL/min/1.73m2 Severely decreased ?15 - 29 mL/min/1.73m2 Kidney Failure ?< 15 ??mL/min/1.73m2 *Relative to young adult level Estimated glomerular filtration rate is determined by the 2020 CKD-EPI equation recommended by the National Kidney Foundation (A Unifying Approach to GFR Estimation: Recommendations of the NKF-ASK Task Force on Reassessing the Inclusion of Race in Diagnosing Kidney Disease, JASN 2020). The CKD-EPI equation should not be used for patients with unstable renal function and has not been validated in children and those over 70. Current interpretive data was last reviewed 2021. Blood 09/19/2023 11:5 8 PM CDT 09/20/2023 12:44 AM CDT Ibrahima iMddleton MD LAB BLOOD ORDERABLES Final Result Performing Organization Address City/[facility] Co de Phone Number [facility] [address] * aPTT (09/19/2023 11:58 PM CDT) aPTT 30 28 - 38 sec Comment: Interpretive Data Heparin therapeutic range: 66.0 - 100.0 seconds. Range based on correlation with therapeutic heparin activity range of 0.3 - 0.7 Units/mL. Current interpretive data was last revised on 2023. Blood 09/19/2023 11:5 8 PM CDT 09/20/2023 12:40 AM CDT us Ibrahima Middleton MD LAB BLOOD ORDERABLES Final Result Performing Organization Address City/[facility]/ZIP Co de Phone Number [facility] [address] * Type and screen (09/19/2023 11:58 PM CDT) Alejandrina, indirect Negative ABO Rh O Positive [facility] Blood 09/19/2023 11:5 8 PM CDT 09/20/2023 12:55 AM CDT Narrative [facility] - 09/20/2023 2:02 AM CDT Has the patient had Daratumumab or Isatuximab in the past 6 months?->Unknown us Ibrahima Middleton MD LAB BLOOD BANK TEST ORDERAB LES Final Result [facility] [place] [address] * (ABNORMAL) Basic metabolic panel (09/19/2023 11:58 PM CDT) Pathologist [facility] Sodium 141 135 - 145 mmol/L Potassium, pl 3.6 3.3 - 4.9 mmol/L [facility] Chloride 103 97 - 110 mmol/L [facility] CO2 29 22 - 32 mmol/L [facility] Anion gap 9 2 - 15 mmol/L [facility] BUN 8 6 - 25 mg/dL [facility] Creatinine 0.44(L) 0.60 - 1.10 mg/dL [facility] Glucose 125 70 - 199 mg/dL [facility] Comment: Interpretive Data Fasting glucose >/= 126 mg/dl is diagnostic for diabetes. ?? Fasting is defined as no caloric intake for at least 8 hours. Fasting glucose between 100 mg/dl to 125 mg/dl is diagnostic of prediabetes. In a patient with classic symptoms of hyperglycemia or hyperglycemic crisis, a random glucose >/= 200 mg/dl is diagnostic for diabetes. In the absence of unequivocal hyperglycemia, results should be confirmed by repeat testing. The classification and Diagnosis of Diabetes Diabetes Care 2021; 46: S19-S40. Current interpretive data was last revised 2022. Calcium 8.4(L) 8.5 - 10.3 mg/dL [facility] Blood 09/19/2023 11:5 8 PM CDT 09/20/2023 12:44 AM CDT Ibrahima Middleton MD LAB BLOOD ORDERABLES Final Result [facility] [place] [address] * Magnesium (09/19/2023 11:58 PM CDT) Pathologist [facility] Magnesium 1.6 1.4 - 2.5 mg/dL Blood 09/19/2023 11:5 8 PM CDT 09/20/2023 12:44 AM CDT Ibrahima Middleton MD LAB BLOOD ORDERABLES Final Result Performing Organization Address [facility] de Phone Number [facility] [place] [address] * (ABNORMAL) CBC without differential (09/19/2023 11:58 PM CDT) [facility] WBC 9.5 3.8 - 9.9 K/cumm Hgb 9.8(L) 11.9 - 15.5 g/dL [facility] Hct 30.8(L) 35.6 - 45.5 % [facility] Plt 270 150 - 400 K/cumm [facility] MPV 10.7 9.1 - 12.3 fL [facility] RBC 3.37(L) 3.90 - 5.20 M/cumm [facility] MCV 91.4 81.3 - 96.4 fL [facility] MCH 29.1 27.1 - 33.3 pg [facility] MCHC 31.8(L) 32.3 - 35.7 g/dL [facility] RDW CV 13.2 11.1 - 14.9 % [facility] RDW SD 43.8 35.7 - 48.1 fL [facility] NRBC abs 0.00 0.00 - 0.01 K/cumm [facility] Blood 09/19/2023 11:5 8 PM CDT 09/20/2023 12:45 AM CDT Ibrahima Middleton MD LAB BLOOD ORDERABLES Final Result Performing Organization Address City/State/[facility] Co de Phone Number [facility] [place] [address] * Phosphorus (09/19/2023 11:58 PM CDT) Phosphorus, pl 2.7 2.3 - 4.5 mg/dL Blood 09/19/2023 11:5 8 PM CDT 09/20/2023 12:44 AM CDT Ibrahima Middleton MD LAB BLOOD ORDERABLES Final Result Performing Organization Address [facility] de Phone Number [facility] [place] [address] * CT Head WO Contrast (09/19/2023 10:48 PM CDT) Anatomical Region Laterality Modality Head and Neck N/A Computed Tomogra phy 09/19/2023 11:0 7 PM CDT Impressions 09/20/2023 9:02 AM CDT No acute intracranial process. Dictated by: Carson Vidal MD The radiology attending physician has personally reviewed this study, and had reviewed and/or edited this written report and agrees with it. Electronically signed by: Jacoby Andrew MD Narrative 09/20/2023 9:02 AM CDT EXAMINATION: CT head without contrast HISTORY: Mental status change TECHNIQUE: CT of the head was performed with images acquired from skull base to vertex without intravenous contrast. COMPARISON: 09/16/2023 FINDINGS: There is no acute intracranial hemorrhage. ??There is unchanged ex vacuo dilatation of the ventricles. ??Scattered ill-defined hypodensities in the periventricular and subcortical white matter are nonspecific, likely on the basis of chronic small vessel ischemic change. ??Again seen are chronic appearing lacunar infarcts of the left insula and right thalamus. ??There is parenchymal volume loss. There are atherosclerotic calcifications of the intracranial vessels. No mass effect or midline shift is present. The visualized portions of the orbits are normal. The visualized portions of the mastoids are normal. The visualized portions of the paranasal sinuses are normal. No fractures are identified. ??Left cerumen impaction. ??Patient is edentulous. Procedure Note Jacoby Andrew MD PhD - 09/20/2023 EXAMINATION: CT head without contrast HISTORY: Mental status change TECHNIQUE: CT of the head was performed with images acquired from skull base to vertex without intravenous contrast. COMPARISON: 09/16/2023 FINDINGS: There is no acute intracranial hemorrhage. There is unchanged ex vacuo dilatation of the ventricles. Scattered ill-defined hypodensities in the periventricular and subcortical white matter are nonspecific, likely on the basis of chronic small vessel ischemic change. Again seen are chronic appearing lacunar infarcts of the left insula and right thalamus. There is parenchymal volume loss. There are atherosclerotic calcifications of the intracranial vessels. No mass effect or midline shift is present. The visualized portions of the orbits are normal. The visualized portions of the mastoids are normal. The visualized portions of the paranasal sinuses are normal. No fractures are identified. Left cerumen impaction. Patient is edentulous. IMPRESSION: No acute intracranial process. Dictated by: Carson Vidal MD The radiology attending physician has personally reviewed this study, and had reviewed and/or edited this written report and agrees with it. Electronically signed by: Jacoby Andrew MD Hannah Chun NP IMG CT PROCEDURES Final R esult * eGFR (09/19/2023 1:35 AM CDT) eGFR >90 >=60 mL/min/1. 73 m2 Comment: Interpretive Data Reference Interval Normal ?>/= 90 mL/min/1.73m2 Mildly decreased* ? 60 - 89 mL/min/1.73m2 Mildly to moderately decreased ?45 - 59 mL/min/1.73m2 Moderately to severely decreased ??30 - 44 mL/min/1.73m2 Severely decreased ?15 - 29 mL/min/1.73m2 Kidney Failure ?< 15 ??mL/min/1.73m2 *Relative to young adult level Estimated glomerular filtration rate is determined by the 2020 CKD-EPI equation recommended by the National Kidney Foundation (A Unifying Approach to GFR Estimation: Recommendations of the NKF-ASK Task Force on Reassessing the Inclusion of Race in Diagnosing Kidney Disease, JASN 2020). The CKD-EPI equation should not be used for patients with unstable renal function and has not been validated in children and those over 70. Current interpretive data was last reviewed 2021. Blood 09/19/2023 1:35 AM CDT 09/19/2023 1:53 AM CDT us Ibrahima Middleton MD LAB BLOOD ORDERABLES Final Result [facility] Department [place] [address] * (ABNORMAL) Basic metabolic panel (09/19/2023 1:35 AM CDT) Pathologist [facility] Sodium 144 135 - 145 mmol/L Potassium, pl 3.7 3.3 - 4.9 mmol/L [facility] Chloride 107 97 - 110 mmol/L [facility] CO2 29 22 - 32 mmol/L [facility] Anion gap 8 2 - 15 mmol/L [facility] BUN 6 6 - 25 mg/dL [facility] Creatinine 0.41(L) 0.60 - 1.10 mg/dL [facility] Glucose 87 70 - 199 mg/dL [facility] Comment: Interpretive Data Fasting glucose >/= 126 mg/dl is diagnostic for diabetes. ?? Fasting is defined as no caloric intake for at least 8 hours. Fasting glucose between 100 mg/dl to 125 mg/dl is diagnostic of prediabetes. In a patient with classic symptoms of hyperglycemia or hyperglycemic crisis, a random glucose >/= 200 mg/dl is diagnostic for diabetes. In the absence of unequivocal hyperglycemia, results should be confirmed by repeat testing. The classification and Diagnosis of Diabetes Diabetes Care 2021; 46: S19-S40. Current interpretive data was last revised 2022. Calcium 8.2(L) 8.5 - 10.3 mg/dL [facility] Blood 09/19/2023 1:35 AM CDT 09/19/2023 1:53 AM CDT Ibrahima Middleton MD LAB BLOOD ORDERABLES Final Result [facility] [place] [address] * Magnesium (09/19/2023 1:35 AM CDT) Pathologist [facility] Magnesium 1.7 1.4 - 2.5 mg/dL Blood 09/19/2023 1:35 AM CDT 09/19/2023 1:53 AM CDT Ibrahima Middleton MD LAB BLOOD ORDERABLES Final Result Performing Organization Address City/[facility] Co de Phone Number [facility] [place] [address] * (ABNORMAL) CBC without differential (09/19/2023 1:35 AM CDT) WBC 8.8 3.8 - 9.9 K/cumm Hgb 9.3(L) 11.9 - 15.5 g/dL [facility] Hct 28.6(L) 35.6 - 45.5 % [facility] Plt 217 150 - 400 K/cumm [facility] MPV 10.4 9.1 - 12.3 fL [facility] RBC 3.10(L) 3.90 - 5.20 M/cumm [facility] MCV 92.3 81.3 - 96.4 fL [facility] MCH 30.0 27.1 - 33.3 pg [facility] MCHC 32.5 32.3 - 35.7 g/dL [facility] RDW CV 13.2 11.1 - 14.9 % [facility] RDW SD 44.3 35.7 - 48.1 fL [facility] NRBC abs 0.00 0.00 - 0.01 K/cumm [facility] Blood 09/19/2023 1:35 AM CDT 09/19/2023 1:54 AM CDT Ibrahima Middleton MD LAB BLOOD ORDERABLES Final Result [facility] [place] [address] * (ABNORMAL) Phosphorus (09/19/2023 1:35 AM CDT) Pathologist [facility] Phosphorus, pl 2.2(L) 2.3 - 4.5 mg/dL Blood 09/19/2023 1:35 AM CDT 09/19/2023 1:53 AM CDT Ibrahima Middleton MD LAB BLOOD ORDERABLES Final Result Performing Organization Address City/[facility] Co de Phone Number [facility] [place] [address] * MRI Cervical Spine WO Contrast (09/18/2023 7:27 PM CDT) Anatomical Region Laterality Modality Spine N/A Magnetic Resonan ce 09/18/2023 7:53 PM CDT Impressions 09/19/2023 9:57 AM CDT 1. ??Severe high-grade spinal canal stenosis at C3-C4 level secondary to congenitally narrowed spinal canal, multilevel disc osteophyte complex, and ligamentum flavum thickening. ??Cord edema is noted at the C3-C4 level. 2. ??Other severe multilevel degenerative changes and multilevel severe spinal canal stenosis as detailed above. Findings regarding high-grade severe spinal canal stenosis and cord edema at C3-C4 were discussed with Dr. Hans Chance at 09/18/2023 8:[address] Cuate Mauricio. Dictated by: Cuate Mauricio MD The radiology attending physician has personally reviewed this study, and had reviewed and/or edited this written report and agrees with it. Electronically signed by: Inocencio Hilario M.D. Narrative 09/19/2023 9:57 AM CDT EXAMINATION: Magnetic resonance imaging (MRI) of the cervical spine without contrast HISTORY: Weakness after fall TECHNIQUE: Multiplanar multi-weighted MRI of the cervical spine was performed without intravenous contrast using the standard protocol. COMPARISON: Cervical spine CT 624 FINDINGS: Motion degraded exam. There is loss of normal cervical lordosis. Likely degenerative type I Modic changes at C3-C4. No acute fracture is identified. Degenerative changes at the craniocervical junction. Partially imaged patchy/confluent white matter disease and cerebral volume loss. Probable cord edema at the C3-C4 level. No soft tissue abnormality is identified. Normal signal voids are present in the vertebral arteries. Congenitally narrowed spinal canal due to shortened pedicles. C2-C3: Mild disc height loss diffuse disc bulge and ligamentum flavum thickening results in severe spinal canal stenosis. There is mild right, moderate left facet arthropathy. There is mild bilateral uncovertebral joint disease. There is moderate right, severe left neuroforaminal stenosis. C3-C4: Severe disc height loss, posterior disc osteophyte complex, and ligamentum flavum thickening result in severe high-grade neuroforaminal stenosis. ??The anterior posterior diameter of the spinal canal measures 2 mm. ??There is moderate bilateral facet arthropathy. There is moderate bilateral uncovertebral joint disease. There is severe bilateral neuroforaminal stenosis. C4-C5: The C4-C5 vertebral bodies are fused. ??No high-grade spinal canal stenosis. ??Facet joints are fused. There is moderate bilateral uncovertebral joint disease. There is moderate right, severe left neuroforaminal stenosis. C5-C6: Severe disc height loss and posterior disc osteophyte complex resulting in severe spinal canal stenosis. There is mild bilateral facet arthropathy. There is severe bilateral uncovertebral joint disease. There is severe bilateral neuroforaminal stenosis. C6-C7: Severe disc height loss and posterior disc osteophyte complex resulting in severe spinal canal stenosis. There is mild bilateral facet arthropathy. ??The uncovertebral joints and neuroforamina are suboptimally characterized due to respiratory motion. C7-T1: Severe disc height loss and posterior disc osteophyte complex resulting in moderate spinal canal stenosis. There is mild bilateral facet arthropathy. The uncovertebral joints and neuroforamina are suboptimally characterized due to respiratory motion. Procedure Note Inocencio Hilario MD PhD - 09/19/2023 EXAMINATION: Magnetic resonance imaging (MRI) of the cervical spine without contrast HISTORY: Weakness after fall TECHNIQUE: Multiplanar multi-weighted MRI of the cervical spine was performed without intravenous contrast using the standard protocol. COMPARISON: Cervical spine CT 624 FINDINGS: Motion degraded exam. There is loss of normal cervical lordosis. Likely degenerative type I Modic changes at C3-C4. No acute fracture is identified. Degenerative changes at the craniocervical junction. Partially imaged patchy/confluent white matter disease and cerebral volume loss. Probable cord edema at the C3-C4 level. No soft tissue abnormality is identified. Normal signal voids are present in the vertebral arteries. Congenitally narrowed spinal canal due to shortened pedicles. C2-C3: Mild disc height loss diffuse disc bulge and ligamentum flavum thickening results in severe spinal canal stenosis. There is mild right, moderate left facet arthropathy. There is mild bilateral uncovertebral joint disease. There is moderate right, severe left neuroforaminal stenosis. C3-C4: Severe disc height loss, posterior disc osteophyte complex, and ligamentum flavum thickening result in severe high-grade neuroforaminal stenosis. The anterior posterior diameter of the spinal canal measures 2 mm. There is moderate bilateral facet arthropathy. There is moderate bilateral uncovertebral joint disease. There is severe bilateral neuroforaminal stenosis. C4-C5: The C4-C5 vertebral bodies are fused. No high-grade spinal canal stenosis. Facet joints are fused. There is moderate bilateral uncovertebral joint disease. There is moderate right, severe left neuroforaminal stenosis. C5-C6: Severe disc height loss and posterior disc osteophyte complex resulting in severe spinal canal stenosis. There is mild bilateral facet arthropathy. There is severe bilateral uncovertebral joint disease. There is severe bilateral neuroforaminal stenosis. C6-C7: Severe disc height loss and posterior disc osteophyte complex resulting in severe spinal canal stenosis. There is mild bilateral facet arthropathy. The uncovertebral joints and neuroforamina are suboptimally characterized due to respiratory motion. C7-T1: Severe disc height loss and posterior disc osteophyte complex resulting in moderate spinal canal stenosis. There is mild bilateral facet arthropathy. The uncovertebral joints and neuroforamina are suboptimally characterized due to respiratory motion. IMPRESSION: 1. Severe high-grade spinal canal stenosis at C3-C4 level secondary to congenitally narrowed spinal canal, multilevel disc osteophyte complex, and ligamentum flavum thickening. Cord edema is noted at the C3-C4 level. 2. Other severe multilevel degenerative changes and multilevel severe spinal canal stenosis as detailed above. Findings regarding high-grade severe spinal canal stenosis and cord edema at C3-C4 were discussed with Dr. Hans Chance at 09/18/2023 8:[address] Cuate Mauricio. Dictated by: Cuate Mauricio MD The radiology attending physician has personally reviewed this study, and had reviewed and/or edited this written report and agrees with it. Electronically signed by: Inocencio Hilario M.D. Hannah Chun NP IMG MRI PROCEDURES Final Result * [facility]N [facility]USKER Evaluation and Treatment (09/18/2023 8:49 AM CDT) Narrative Buffy Caicedo SLP - 09/18/2023 8:49 AM CDT Buffy Caicedo SLP ? 09/18/2023 ??9:41 AM Speech-Language Pathology: Clinical Bedside Swallow [facility]/PM 78 y.o. 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 She had a mechanical fall 2 days ago while she was ambulating with her walker but her walker slipped on the wet floor causing her to fall onto her left leg. ??She did not hit her head or lose consciousness but was on the ground for 24 hours until her daughter found her the next day and called EMS. ??She was seen outside hospital where she had imaging of her head and cervical spine as well as x-rays of her left lower extremity which showed the above fracture. ??Was transferred for further evaluation. 09/15- INTRAMEDULLARY NAIL - TIBIAL and FIBULA (Left) No prior ST notes. Respiratory/Intubation Status: intubated 09/15, now RA Chest CT 09/15- No pleural effusion or pneumothorax. ??Upper lobe predominant emphysematous changes are noted. ??There is mild dependent atelectasis with components of subtle peripheral reticulation. ??There are mild tree-in-bud nodules in the anterior aspect of the left upper lobe, which may represent mild bronchiolitis. There is a nodule in the right lower lobe with broad base along the pleural Neuro CT 09/15- No acute intracranial process. No acute fracture of the cervical spine. Precautions: fall Current Diet Order:regular solids/thin liquids Baseline Diet: regular solids/thin liquids per pt's report General Information Aidee Sang 09/18/23 General Observations: Swallow evaluation completed on 6499. Pt awake, in bed upon CORN HUSKER arrival in room. PCT present and assisting with breakfast. No family/visitors present. Pt A&Ox4, pleasant and cooperative. Pain Score: 0 If pain >4, was RN notified? N/A Patient Stated Goal/Comments: Pt did not state goals related to skilled ST this date. Clinical Impression & Professional Recommendations Diet Solids Recommendation: Regular Diet Liquids Recommendations: Thin/regular Recommended Form of Medications: As tolerated Postural Recommendations: Upright Assistance with feeding/swallowing: One to one assist with meals Specialty Instructions: thorough oral care 2-3x/day including teeth brushing (gums and tongue) with suction while upright at 90 and with 100% assistance to improve the oral biome and reduce the risk of aspiration related complications (i.e., PNA) Dysphagia Diagnosis: No suspected dysphagia, oral-pharyngeal function appears WFL Overall Clinical Impression/Additional Information: Oral mechanism exam WFL. Exam notable for edentulous status. PCT reported pt's dentures are at home. Pt reports no difficulty with mastication without dentures. CORN HUSKER assist with feeding pt breakfast. Pt observed with thin liquids via straw and regular solid consistencies from breakfast tray. Pt with slower but functional mastication of more solid items. Good oral clearance across trials. No s/s of aspiration. Swallow appears to be WFL. Assessment Details & Results Consistencies Administered: Thin liquids, Solids MASA: Kat Assessment of Swallowing Ability (MASA) Alertness: Alert Cooperation: Cooperative Auditory Comprehension: No abnormality detected Respiration: Chest clear Respiratory Rate (for swallow): Able to control breath rate for swallow Aphasia: No abnormality detected Apraxia: No abnormality detected Dysarthria: No abnormality detected Saliva: No abnormality detected Lip Seal: No abnormality detected Tongue Movement: Full range of motion Tongue Strength: No abnormality detected Tongue Coordination: No abnormality detected Gag: No gag (did not assess) Palate: No abnormality detected Cough Reflex: No deficit noted Voluntary Cough: No abnormality detected Voice: No abnormality detected Trach: No trach Oral Preparation: No deficits noted Bolus Clearance: Fully cleared Oral Transit: No deficits noted Pharyngeal Phase: Immediate laryngeal elevation Pharyngeal Response: No deficits noted MASA Score: 196 Dysphagia: No dysphagia detected (178-200) Aspiration Risk: No aspiration risk (170-200) Plan [facility]N [facility]ER Frequency of Services during current admission: One-time visit (Discharge from this service) CORN [facility]USKER Recommendation (Add'l Services): No further CORN HUSKER indicated Further Assessment/Follow up Indicated: Recommendations: ??(No further ST needs for swallowing.) Next Visit Plan:No further ST warranted Additional Referrals: none Please reference care plan for treatment goals, if indicated. Discharge Summary Statement If this is the last swallow therapy visit, this serves as the discharge summary. us Amy Lara NP [facility] ORDERABLES Final R esult * eGFR (09/18/2023 1:25 AM CDT) eGFR >90 >=60 mL/min/1. 73 m2 Comment: Interpretive Data Reference Interval Normal ?>/= 90 mL/min/1.73m2 Mildly decreased* ? 60 - 89 mL/min/1.73m2 Mildly to moderately decreased ?45 - 59 mL/min/1.73m2 Moderately to severely decreased ??30 - 44 mL/min/1.73m2 Severely decreased ?15 - 29 mL/min/1.73m2 Kidney Failure ?< 15 ??mL/min/1.73m2 *Relative to young adult level Estimated glomerular filtration rate is determined by the 2020 CKD-EPI equation recommended by the National Kidney Foundation (A Unifying Approach to GFR Estimation: Recommendations of the NKF-ASK Task Force on Reassessing the Inclusion of Race in Diagnosing Kidney Disease, JASN 2020). The CKD-EPI equation should not be used for patients with unstable renal function and has not been validated in children and those over 70. Current interpretive data was last reviewed 2021. Blood 09/18/2023 1:25 AM CDT 09/18/2023 2:00 AM CDT us Ibrahima Middleton MD LAB BLOOD ORDERABLES Final Result [facility] [place] [address] * (ABNORMAL) Basic metabolic panel (09/18/2023 1:25 AM CDT) [facility] Sodium 140 135 - 145 mmol/L Potassium, pl 3.1(L) 3.3 - 4.9 mmol/L [facility] Chloride 106 97 - 110 mmol/L [facility] CO2 27 22 - 32 mmol/L [facility] Anion gap 7 2 - 15 mmol/L [facility] BUN 9 6 - 25 mg/dL [facility] Creatinine 0.45(L) 0.60 - 1.10 mg/dL [facility] Glucose 97 70 - 199 mg/dL [facility] Comment: Interpretive Data Fasting glucose >/= 126 mg/dl is diagnostic for diabetes. ?? Fasting is defined as no caloric intake for at least 8 hours. Fasting glucose between 100 mg/dl to 125 mg/dl is diagnostic of prediabetes. In a patient with classic symptoms of hyperglycemia or hyperglycemic crisis, a random glucose >/= 200 mg/dl is diagnostic for diabetes. In the absence of unequivocal hyperglycemia, results should be confirmed by repeat testing. The classification and Diagnosis of Diabetes Diabetes Care 2021; 46: S19-S40. Current interpretive data was last revised 2022. Calcium 7.8(L) 8.5 - 10.3 mg/dL [facility] Blood 09/18/2023 1:25 AM CDT 09/18/2023 2:00 AM CDT Ibrahima Middleton MD LAB BLOOD ORDERABLES Final Result Performing Organization Address [facility] de Phone Number [facility] [place] [address] * Magnesium (09/18/2023 1:25 AM CDT) [facility] Magnesium 1.7 1.4 - 2.5 mg/dL Blood 09/18/2023 1:25 AM CDT 09/18/2023 2:00 AM CDT Ibrahima Middleton MD LAB BLOOD ORDERABLES Final Result Performing Organization Address [facility] de Phone Number [facility] [place] [address] * (ABNORMAL) CBC without differential (09/18/2023 1:25 AM CDT) [facility] WBC 8.4 3.8 - 9.9 K/cumm Hgb 9.3(L) 11.9 - 15.5 g/dL [facility] Hct 28.4(L) 35.6 - 45.5 % [facility] Plt 175 150 - 400 K/cumm [facility] MPV 11.1 9.1 - 12.3 fL [facility] RBC 3.14(L) 3.90 - 5.20 M/cumm [facility] MCV 90.4 81.3 - 96.4 fL [facility] MCH 29.6 27.1 - 33.3 pg [facility] MCHC 32.7 32.3 - 35.7 g/dL [facility] RDW CV 13.2 11.1 - 14.9 % [facility] RDW SD 43.3 35.7 - 48.1 fL [facility] NRBC abs 0.00 0.00 - 0.01 K/cumm [facility] Blood 09/18/2023 1:25 AM CDT 09/18/2023 1:59 AM CDT Ibrahima Middleton MD LAB BLOOD ORDERABLES Final Result Performing Organization Address [facility] de Phone Number [facility] [place] [address] * Phosphorus (09/18/2023 1:25 AM CDT) Phosphorus, pl 2.9 2.3 - 4.5 mg/dL Blood 09/18/2023 1:25 AM CDT 09/18/2023 2:00 AM CDT Ibrahima Middleton MD LAB BLOOD ORDERABLES Final Result Performing Organization Address [facility] de Phone Number [facility] [place] [address] * eGFR (09/16/2023 10:59 PM CDT) eGFR >90 >=60 mL/min/1. 73 m2 Comment: Interpretive Data Reference Interval Normal ?>/= 90 mL/min/1.73m2 Mildly decreased* ? 60 - 89 mL/min/1.73m2 Mildly to moderately decreased ?45 - 59 mL/min/1.73m2 Moderately to severely decreased ??30 - 44 mL/min/1.73m2 Severely decreased ?15 - 29 mL/min/1.73m2 Kidney Failure ?< 15 ??mL/min/1.73m2 *Relative to young adult level Estimated glomerular filtration rate is determined by the 2021 CKD-EPI equation recommended by the National Kidney Foundation (A Unifying Approach to GFR Estimation: Recommendations of the NKF-ASK Task Force on Reassessing the Inclusion of Race in Diagnosing Kidney Disease, JASN 202). The CKD-EPI equation should not be used for patients with unstable renal function and has not been validated in children and those over 70. Current interpretive data was last reviewed 2021. Blood 09/16/2023 10:5 9 PM CDT 09/17/2023 12:11 AM CDT us Ibrahima Middleton MD LAB BLOOD ORDERABLES Final Result [facility] Department [place] [address] * (ABNORMAL) Basic metabolic panel (09/16/2023 10:59 PM CDT) Sodium 141 135 - 145 mmol/L Potassium, pl 3.8 3.3 - 4.9 mmol/L [facility] Chloride 108 97 - 110 mmol/L [facility] CO2 28 22 - 32 mmol/L [facility] Anion gap 5 2 - 15 mmol/L [facility] BUN 12 6 - 25 mg/dL [facility] Creatinine 0.54(L) 0.60 - 1.10 mg/dL [facility] Glucose 130 70 - 199 mg/dL [facility] Comment: Interpretive Data Fasting glucose >/= 126 mg/dl is diagnostic for diabetes. ?? Fasting is defined as no caloric intake for at least 8 hours. Fasting glucose between 100 mg/dl to 125 mg/dl is diagnostic of prediabetes. In a patient with classic symptoms of hyperglycemia or hyperglycemic crisis, a random glucose >/= 200 mg/dl is diagnostic for diabetes. In the absence of unequivocal hyperglycemia, results should be confirmed by repeat testing. The classification and Diagnosis of Diabetes Diabetes Care 202; 46: S19-S40. Current interpretive data was last revised 2022. Calcium 8.0(L) 8.5 - 10.3 mg/dL [facility] Blood 09/16/2023 10:5 9 PM CDT 09/17/2023 12:11 AM CDT Ibrahima Middleton MD LAB BLOOD ORDERABLES Final Result Performing Organization Address [facility] Co de Phone Number [facility] [place] [address] * Magnesium (09/16/2023 10:59 PM CDT) [facility] Magnesium 1.5 1.4 - 2.5 mg/dL Blood 09/16/2023 10:5 9 PM CDT 09/17/2023 12:11 AM CDT Ibrahima Middleton MD LAB BLOOD ORDERABLES Final Result Performing Organization Address [facility] de Phone Number [facility] Department [place] [address] * (ABNORMAL) CBC without differential (09/16/2023 10:59 PM CDT) [facility] WBC 10.4(H) 3.8 - 9.9 K/cumm Hgb 10.3(L) 11.9 - 15.5 g/dL [facility] Hct 32.3(L) 35.6 - 45.5 % [facility] Plt 179 150 - 400 K/cumm [facility] MPV 11.1 9.1 - 12.3 fL [facility] RBC 3.46(L) 3.90 - 5.20 M/cumm [facility] MCV 93.4 81.3 - 96.4 fL [facility] MCH 29.8 27.1 - 33.3 pg [facility] MCHC 31.9(L) 32.3 - 35.7 g/dL [facility] RDW CV 13.1 11.1 - 14.9 % [facility] RDW SD 44.7 35.7 - 48.1 fL [facility] NRBC abs 0.00 0.00 - 0.01 K/cumm [facility] Blood 09/16/2023 10:5 9 PM CDT 09/17/2023 12:12 AM CDT Ibrahima Middleton MD LAB BLOOD ORDERABLES Final Result Performing Organization Address [facility] Co de Phone Number [facility] [place] [address] * (ABNORMAL) Phosphorus (09/16/2023 10:59 PM CDT) Phosphorus, pl 1.7(L) 2.3 - 4.5 mg/dL Blood 09/16/2023 10:5 9 PM CDT 09/17/2023 12:11 AM CDT Ibrahima Middleton MD LAB BLOOD ORDERABLES Final Result Performing Organization Address [facility] de Phone Number [facility] [place] [address] * XR Tibia Fibula Left 2 Views (09/16/2023 5:19 PM CDT) Anatomical Region Laterality Modality Lower Extremities, Lower Leg Left Dig ital Radiography 09/17/2023 6:26 AM CDT Impressions 09/17/2023 6:26 AM CDT 1. ??Interval nailing and reduction of the comminuted, minimally displaced distal tibia and fibula fractures Electronically signed by: Khoa Tao MD, PHD Narrative 09/17/2023 6:26 AM CDT EXAMINATION: Left tibia-fibula 2 views HISTORY: ??Left distal tibia and fibula fractures FINDINGS: 4 portable radiographs of the left leg are compared to prior radiographs and CT examination from the same day. ??There has been interval nailing and reduction of a comminuted, minimally displaced and foreshortened fracture of the distal left tibia and fibular shafts with overlying splint. ??Arterial atherosclerosis is present. Procedure Note Khoa Tao MD PhD - 09/17/2023 EXAMINATION: Left tibia-fibula 2 views HISTORY: Left distal tibia and fibula fractures FINDINGS: 4 portable radiographs of the left leg are compared to prior radiographs and CT examination from the same day. There has been interval nailing and reduction of a comminuted, minimally displaced and foreshortened fracture of the distal left tibia and fibular shafts with overlying splint. Arterial atherosclerosis is present. IMPRESSION: 1. Interval nailing and reduction of the comminuted, minimally displaced distal tibia and fibula fractures Electronically signed by: Khoa Tao MD, PHD us Ibrahima Middleton MD IMG XR PROCEDURES Final Res ult * FL Fluoroscopy < 1 Hour (09/16/2023 3:21 PM CDT) Narrative [facility] - 09/16/2023 3:24 PM CDT The images from this study are not interpreted by Radiology. ??Please refer to the physician's procedure / OR operative note. us Hammad Taylor MD IMG FLUOROSCOPY PROCEDURE S Final Result [facility] * (ABNORMAL) Creatine kinase (CK), total (09/16/2023 9:58 AM CDT) CK 1,157(H) 30 - 200 Units/L Blood 09/16/2023 9:58 AM CDT 09/16/2023 10:24 AM CDT us Miquel Bagley MD LAB BLOOD ORDERABLES Final Result [facility] [place] [address] * [facility] ILL/INJURED PATIENT INIT 30-74 MIN (09/16/2023 7:06 AM CDT) Narrative Diogo Lee MD - 09/16/2023 7:06 AM CDT Diogo Lee MD ? 09/16/2023 ??7:07 AM Critical Care Performed by: Diogo Lee MD Authorized by: Diogo Lee MD ?? Critical care provider statement: As reflected in the history, physical exam, orders, notes, and/or MDM, I was personally present while the patient was critically ill and provided critical care services for 35 minutes, excluding time involved in separately billable procedures. ??Critical care was necessary to treat or prevent imminent or life-threatening deterioration of the following condition(s): ?? severe long-bone fracture ??Critical care was time spent by me providing the following: ? continuous telemetry, continuous pulse oximetry, interpretation of bedside monitors, imaging, and arterial/venous lab draws, serial bedside patient exams and resuscitation with fluids ?? decision regarding NPO status ?? prepared for emergent procedure/operating room and acute pain control ?? I provided emergent necessary critical care medicine services to this patient. I ordered and reviewed test results and/or imaging studies. I spent time discussing the management of this critically ill patient with consultants and the medical staff. I spent time discussing the management and therapeutic options for this critically ill patient with the patient themselves or with the appropriate designated surrogate decision-maker. I spent time documenting in the medical record. us Diogo Lee MD IN CLINIC/[facility]ED[facility] E ORDERABLES Final Result * (ABNORMAL) Calcium, ionized (09/16/2023 6:44 AM CDT) Calcium, Ionized 4.40(L) 4.50 - 5.10 mg/dL Blood 09/16/2023 6:44 AM CDT 09/16/2023 6:57 AM CDT us Diogo Lee MD LAB BLOOD ORDERA BLES Final Result [facility] Department [place] [address] * CT Chest Abdomen Pelvis W Contrast (09/16/2023 6:17 AM CDT) Anatomical Region Laterality Modality Body N/A Computed Tomogra phy 09/16/2023 6:41 AM CDT Impressions 09/16/2023 7:42 AM CDT 1. ??No findings of acute trauma in the chest, abdomen or pelvis. 2. ??Small-moderate hiatal hernia. ??Otherwise, no evidence of mediastinal mass as clinically queried. 3. ??Nonspecific mild central intrahepatic and extrahepatic bile duct dilatation of uncertain significance in the setting of normal serum bilirubin. 4. ??Indeterminate right lower lobe pulmonary nodule with broad base along the pleura. ??Recommend comparison with prior imaging if available to document stability. ??If no prior imaging is available, recommend follow-up CT in 6-12 months. Dictated by: Dennis Masters MD, PHD The radiology attending physician has personally reviewed this study, and had reviewed and/or edited this written report and agrees with it. Electronically signed by: Carloz Lewis M.D. Narrative 09/16/2023 7:42 AM CDT EXAMINATION: ??Computed tomography of the chest, abdomen and pelvis with intravenous contrast HISTORY: 78-year-old presenting after fall on Thursday. ??Reported mediastinal mass on chest radiograph. TECHNIQUE: ??Transaxial computed tomographic images of the chest, abdomen and pelvis were obtained with intravenous contrast according to the standard protocol after the uneventful administration of 70 mL Opti-Ray 350 intravenous contrast. COMPARISON: Outside chest radiograph 09/15/2023. ??No prior CT available. FINDINGS: ?? Chest: Heart size within normal limits. ??No pericardial effusion. ??Calcified coronary artery disease. ??Aortic valve calcifications. 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 ??No mediastinal hematoma. ??No pathologically enlarged clavicular or axillary lymph nodes. ??No mediastinal or hilar lymphadenopathy. ??There is a small-moderate hiatal hernia. No pleural effusion or pneumothorax. ??Upper lobe predominant emphysematous changes are noted. ??There is mild dependent atelectasis with components of subtle peripheral reticulation. ??There are mild tree-in-bud nodules in the anterior aspect of the left upper lobe, which may represent mild bronchiolitis. ??There is a 1.4 x 0.3 cm nodule in the right lower lobe with broad base along the pleural (series 6, image 82). ??There are otherwise a few scattered tiny bilateral pulmonary nodules. Abdomen/Pelvis: No suspicious hepatic lesion. ??There is cholelithiasis without evidence of acute cholecystitis. ??There is mild extrahepatic and central intrahepatic bile duct dilatation. ??The common duct is dilated to the level of the ampulla measuring 9 mm in diameter. ??No significant main pancreatic duct dilatation. ??The pancreas is normal. Spleen is normal. ??Adrenal glands are normal. ??Kidneys enhance symmetrically. ??No hydronephrosis. ??Urinary bladder decompressed by Guerrier catheter. No ascites or pneumoperitoneum. ??Moderate rectal stool burden. ??Large bowel is normal in caliber. ??Appendix is normal. ??Small bowel is normal in caliber. ??No bowel obstruction. ??Abdominal aorta is atherosclerotic and nonaneurysmal. ??Atherosclerotic calcifications extend into the branch vessels. ??No lymphadenopathy in the abdomen or pelvis. Severe bilateral hip osteoarthritis with extensive subchondral cyst formation. ??The left femoral head and acetabulum demonstrate extensive remodeling. ??No acute fracture identified. ??Multilevel degenerative changes spine. ??No suspicious osseous lesion. Procedure Note Carloz Lewis MD - 09/16/2023 EXAMINATION: Computed tomography of the chest, abdomen and pelvis with intravenous contrast HISTORY: 78-year-old presenting after fall on Thursday. Reported mediastinal mass on chest radiograph. TECHNIQUE: Transaxial computed tomographic images of the chest, abdomen and pelvis were obtained with intravenous contrast according to the standard protocol after the uneventful administration of 70 mL Opti-Ray 350 intravenous contrast. COMPARISON: Outside chest radiograph 09/15/2023. No prior CT available. FINDINGS: Chest: Heart size within normal limits. No pericardial effusion. Calcified coronary artery disease. Aortic valve calcifications. 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 No mediastinal hematoma. No pathologically enlarged clavicular or axillary lymph nodes. No mediastinal or hilar lymphadenopathy. There is a small-moderate hiatal hernia. No pleural effusion or pneumothorax. Upper lobe predominant emphysematous changes are noted. There is mild dependent atelectasis with components of subtle peripheral reticulation. There are mild tree-in-bud nodules in the anterior aspect of the left upper lobe, which may represent mild bronchiolitis. There is a 1.4 x 0.3 cm nodule in the right lower lobe with broad base along the pleural (series 6, image 82). There are otherwise a few scattered tiny bilateral pulmonary nodules. Abdomen/Pelvis: No suspicious hepatic lesion. There is cholelithiasis without evidence of acute cholecystitis. There is mild extrahepatic and central intrahepatic bile duct dilatation. The common duct is dilated to the level of the ampulla measuring 9 mm in diameter. No significant main pancreatic duct dilatation. The pancreas is normal. Spleen is normal. Adrenal glands are normal. Kidneys enhance symmetrically. No hydronephrosis. Urinary bladder decompressed by Guerrier catheter. No ascites or pneumoperitoneum. Moderate rectal stool burden. Large bowel is normal in caliber. Appendix is normal. Small bowel is normal in caliber. No bowel obstruction. Abdominal aorta is atherosclerotic and nonaneurysmal. Atherosclerotic calcifications extend into the branch vessels. No lymphadenopathy in the abdomen or pelvis. Severe bilateral hip osteoarthritis with extensive subchondral cyst formation. The left femoral head and acetabulum demonstrate extensive remodeling. No acute fracture identified. Multilevel degenerative changes spine. No suspicious osseous lesion. IMPRESSION: 1. No findings of acute trauma in the chest, abdomen or pelvis. 2. Small-moderate hiatal hernia. Otherwise, no evidence of mediastinal mass as clinically queried. 3. Nonspecific mild central intrahepatic and extrahepatic bile duct dilatation of uncertain significance in the setting of normal serum bilirubin. 4. Indeterminate right lower lobe pulmonary nodule with broad base along the pleura. Recommend comparison with prior imaging if available to document stability. If no prior imaging is available, recommend follow-up CT in 6-12 months. Dictated by: Dennis Masters MD, PHD The radiology attending physician has personally reviewed this study, and had reviewed and/or edited this written report and agrees with it. Electronically signed by: Carloz Lewis M.D. Sara Jimenez MD IM CT PROCEDURES Final Resul t * CT Ankle Left WO Contrast (09/16/2023 6:17 AM CDT) Anatomical Region Laterality Modality Ankle Left Computed Tomogra phy 09/16/2023 6:49 AM CDT Impressions 09/16/2023 7:09 AM CDT 1. ??Splinted, comminuted, minimally displaced and foreshortened fracture of the distal left tibial shaft with suggestion of intra-articular extension at the posterior malleolus and with syndesmotic extension 2. ??Comminuted and angulated distal left fibular shaft fracture. 3. Diffuse demineralization Dictated by: Dennis Masters MD, PHD The radiology attending physician has personally reviewed this study, and had reviewed and/or edited this written report and agrees with it. Electronically signed by: Khoa Tao MD, PHD Narrative 09/16/2023 7:09 AM CDT EXAMINATION: ??Computed tomography of the left ankle without intravenous contrast HISTORY: Left tibia and fibula fractures. TECHNIQUE: ??Transaxial computed tomographic images of the left ankle were obtained without intravenous contrast according to the standard protocol. COMPARISON: Left tibia-fibula radiographs 09/16/2023. FINDINGS: ?? The ankle is in a splint. ??Diffuse soft tissue swelling about the ankle extending into the foot. Diffuse osteopenia is noted. ??There is a comminuted , minimally displaced and minimally foreshortened fracture of the distal left tibia shaft that extends into distal tibiofibular syndesmosis with suggestion of intra-articular extension at the posterior malleolus. There is also a comminuted and angulated distal left fibular shaft fracture above the level of the syndesmosis with apex dorsal and lateral angulation. The talar dome is intact. ??Small calcaneal enthesophyte. ??Diffuse soft tissue is noted without gas or organized fluid collection. The visualized flexor, extensor, and peroneal tendons appear intact. Procedure Note Khoa Tao MD PhD - 09/16/2023 EXAMINATION: Computed tomography of the left ankle without intravenous contrast HISTORY: Left tibia and fibula fractures. TECHNIQUE: Transaxial computed tomographic images of the left ankle were obtained without intravenous contrast according to the standard protocol. COMPARISON: Left tibia-fibula radiographs 09/16/2023. FINDINGS: The ankle is in a splint. Diffuse soft tissue swelling about the ankle extending into the foot. Diffuse osteopenia is noted. There is a comminuted , minimally displaced and minimally foreshortened fracture of the distal left tibia shaft that extends into distal tibiofibular syndesmosis with suggestion of intra-articular extension at the posterior malleolus. There is also a comminuted and angulated distal left fibular shaft fracture above the level of the syndesmosis with apex dorsal and lateral angulation. The talar dome is intact. Small calcaneal enthesophyte. Diffuse soft tissue is noted without gas or organized fluid collection. The visualized flexor, extensor, and peroneal tendons appear intact. IMPRESSION: 1. Splinted, comminuted, minimally displaced and foreshortened fracture of the distal left tibial shaft with suggestion of intra-articular extension at the posterior malleolus and with syndesmotic extension 2. Comminuted and angulated distal left fibular shaft fracture. 3. Diffuse demineralization Dictated by: Dennis Masters MD, PHD The radiology attending physician has personally reviewed this study, and had reviewed and/or edited this written report and agrees with it. Electronically signed by: Khoa Tao MD, PHD Sara Jimenez MD IMG CT PROCEDURES Final Resul t * Check Sample (09/16/2023 4:42 AM CDT) ABO Rh O Positive [facility] HCLL OTHER 09/16/2023 4:42 AM CDT 09/16/2023 4:58 AM CDT Ibrahima Middleton MD LAB BLOOD ORDERABLES Final Result [facility] Department [place] [address] [facility] * XR Tibia Fibula Left 2 Views (09/16/2023 4:27 AM CDT) Anatomical Region Laterality Modality Lower Extremities, Lower Leg Left Com puted Radiography 09/16/2023 5:49 AM CDT Impressions 09/16/2023 9:48 AM CDT FINDINGS/IMPRESSION: ?? LEFT TIBIA/FIBULA: Comparison is made to radiograph from 09/15/2023 at 11:00 PM. Splinting of the left leg obscures fine underlying bony detail. Redemonstrated comminuted fractures involving the distal left tibia and fibula, likely with intra-articular extension and involving the syndesmosis that are not significantly changed in alignment. Continued apex lateral angulation of the fibular fracture. Associated soft tissue swelling is noted. Dictated by: Eris Goldstein M.D. The radiology attending physician has personally reviewed this study, and had reviewed and/or edited this written report and agrees with it. Electronically signed by: Nabil Elmore M.D. Narrative 09/16/2023 9:48 AM CDT EXAMINATION: ??XR TIBIA FIBULA LEFT 2 VIEWS HISTORY: ??left tib/fib fx Procedure Note Nabil Elmore MD - 09/16/2023 EXAMINATION: XR TIBIA FIBULA LEFT 2 VIEWS HISTORY: left tib/fib fx IMPRESSION: FINDINGS/IMPRESSION: LEFT TIBIA/FIBULA: Comparison is made to radiograph from 09/15/2023 at 11:00 PM. Splinting of the left leg obscures fine underlying bony detail. Redemonstrated comminuted fractures involving the distal left tibia and fibula, likely with intra-articular extension and involving the syndesmosis that are not significantly changed in alignment. Continued apex lateral angulation of the fibular fracture. Associated soft tissue swelling is noted. Dictated by: Eris Goldstein M.D. The radiology attending physician has personally reviewed this study, and had reviewed and/or edited this written report and agrees with it. Electronically signed by: Nabil Elmore M.D. us Sara Jimenez MD IMG XR PROCEDURES Final Resul t * ECG 12-LEAD (09/16/2023 3:02 AM CDT) Narrative [facility] - 09/16/2023 3:02 AM CDT Diogo Lee MD ? 09/16/2023 ??3:03 AM ECG 12 lead Date/Time: 09/16/2023 3:02 AM Performed by: Diogo Lee MD Authorized by: Sara Jimenez MD ?? Rate: ??ECG rate: ??94 ??ECG rate assessment: normal ?? Rhythm: ??Rhythm: sinus rhythm ?? Ectopy: ??Ectopy: PVCs ?? QRS: ??QRS axis: ??Normal ??QRS intervals: ??Normal Conduction: ??Conduction: normal ?? ST segments: ??ST segments: ??Normal T waves: ??T waves: normal ?? Previous ECG: ??Previous ECG: ??Unavailable Interpretation: ??Interpretation: non-specific ?? Recommended Follow-up: ??Recommended follow up: further workup in the ED ?? Sara Jimenez MD ECG ORDERABLES Final Result Performing Organization Address City/[facility]/ZIP Co de Phone Number [facility] * Magnesium (09/16/2023 3:02 AM CDT) Pathologist [facility] Magnesium 2.0 1.4 - 2.5 mg/dL Blood 09/16/2023 3:02 AM CDT 09/16/2023 3:57 AM CDT Ibrahima Middleton MD LAB BLOOD ORDERABLES Final Result Performing Organization Address City/[facility] Co de Phone Number [facility] Department [place] [address] * eGFR (09/16/2023 3:02 AM CDT) eGFR >90 >=60 mL/min/1. 73 m2 Comment: Interpretive Data Reference Interval Normal ?>/= 90 mL/min/1.73m2 Mildly decreased* ? 60 - 89 mL/min/1.73m2 Mildly to moderately decreased ?45 - 59 mL/min/1.73m2 Moderately to severely decreased ??30 - 44 mL/min/1.73m2 Severely decreased ?15 - 29 mL/min/1.73m2 Kidney Failure ?< 15 ??mL/min/1.73m2 *Relative to young adult level Estimated glomerular filtration rate is determined by the 2020 CKD-EPI equation recommended by the National Kidney [employer] (A Unifying Approach to GFR Estimation: Recommendations of the NKF-ASK Task Force on Reassessing the Inclusion of Race in Diagnosing Kidney Disease, JASN 2020). The CKD-EPI equation should not be used for patients with unstable renal function and has not been validated in children and those over 70. Current interpretive data was last reviewed 2021. Blood 09/16/2023 3:02 AM CDT 09/16/2023 3:57 AM CDT Sara Jimenez MD LAB BLOOD ORDERABLES Final Re sult Performing Organization Address [facility] Co de Phone Number [facility] [place] [address] * (ABNORMAL) Urinalysis, microscopic only (09/16/2023 3:02 AM CDT) WBC, ur 0-5 0 - 5 /HPF RBC, ur 11-20(A) 0 - 2 /HPF [facility] Epithelial cells, squamous, ur 1-5 0 - 5 /HPF [facility] Bacteria, ur Trace(A) [facility] Mucous, ur Present(A) [facility] Hyaline casts, ur 6-10 0 - 10 /LPF [facility] Culture Reflex Comment Reflex conditions for urine culture (WBC >10) not met. [facility] Urine 09/16/2023 3:02 AM CDT 09/16/2023 3:22 AM CDT Sara Jimenez MD LAB URINE ORDERABLES Final Re sult Performing Organization Address [facility] Co de Phone Number [facility] [place] [address] * (ABNORMAL) Differential, auto (09/16/2023 3:02 AM CDT) Neutrophil abs 10.0(H) 1.5 - 6.5 K/cumm Imm gran abs 0.1 0.0 - 0.1 K/cumm [facility] Lymphocyte abs 1.0 0.8 - 3.3 K/cumm [facility] Monocyte abs 1.6(H) 0.2 - 0.8 K/cumm [facility] Eosinophil abs 0.0 0.0 - 0.5 K/cumm [facility] Basophil abs 0.0 0.0 - 0.1 K/cumm [facility] Neutrophil pct 78.6 % [facility] Comment: Interpretive Data Percent cell count reference ranges are not reported, since discordance with absolute values may lead to misinterpretation of CBC data. Current Interpretive Data was last revised on 2017. Imm gran pct 0.6 % [facility] Comment: Interpretive Data Percent cell count reference ranges are not reported, since discordance with absolute values may lead to misinterpretation of CBC data. Current Interpretive Data was last revised on 2017. Lymphocyte pct 7.9 % [facility] Comment: Interpretive Data Percent cell count reference ranges are not reported, since discordance with absolute values may lead to misinterpretation of CBC data. Current Interpretive Data was last revised on 2017. Monocyte pct 12.6 % [facility] Comment: Interpretive Data Percent cell count reference ranges are not reported, since discordance with absolute values may lead to misinterpretation of CBC data. Current Interpretive Data was last revised on 2017. Eosinophil pct 0.1 % [facility] Comment: Interpretive Data Percent cell count reference ranges are not reported, since discordance with absolute values may lead to misinterpretation of CBC data. Current Interpretive Data was last revised on 2017. Basophil pct 0.2 % [facility] Comment: Interpretive Data Percent cell count reference ranges are not reported, since discordance with absolute values may lead to misinterpretation of CBC data. Current Interpretive Data was last revised on 2017. Blood 09/16/2023 3:02 AM CDT 09/16/2023 3:49 AM CDT Sara Jimenez MD LAB BLOOD ORDERABLES Final Re sult Performing Organization Address [facility] Co de Phone Number [facility] [place] [address] * (ABNORMAL) Creatine kinase (CK), total (09/16/2023 3:02 AM CDT) CK 1,389(H) 30 - 200 Units/L Blood 09/16/2023 3:02 AM CDT 09/16/2023 3:57 AM CDT Sara Jimenez MD LAB BLOOD ORDERABLES Final Re sult Performing Organization Address [facility] [place] [address] * Type and screen (09/16/2023 3:02 AM CDT) ABO Rh O Positive Alejandrina, indirect Negative [facility] Blood 09/16/2023 3:02 AM CDT 09/16/2023 3:44 AM CDT Narrative [facility] - 09/16/2023 4:38 AM CDT Has the patient had Daratumumab or Isatuximab in the past 6 months?->Unknown Sara Jimenez MD LAB BLOOD BANK TEST ORDERABLE S Final Result Performing Organization Address [facility] Co de Phone Number [facility] [place] [address] * (ABNORMAL) aPTT (09/16/2023 3:02 AM CDT) aPTT 27(L) 28 - 38 sec Comment: Interpretive Data Heparin therapeutic range: 66.0 - 100.0 seconds. Range based on correlation with therapeutic heparin activity range of 0.3 - 0.7 Units/mL. Current interpretive data was last revised on 2023. Blood 09/16/2023 3:02 AM CDT 09/16/2023 3:31 AM CDT Sara Jimenez MD LAB BLOOD ORDERABLES Final Re sult Performing Organization Address [facility] Co de Phone Number [facility] [place] [address] * (ABNORMAL) Protime-INR (09/16/2023 3:02 AM CDT) PT 14.0(H) 10.3 - 13.7 sec INR 1.23(H) 0.90 - 1.20 [facility] Comment: Interpretive data Oral anticoagulant therapeutic ranges: Venous thromboembolism prophylaxis or treatment: 2.0-3.0 CARDIOLOGY Standard range: 2.0-3.0 High-intensity range: 2.5-3.5 Refer to indication-specific guidelines for appropriate target ranges for prosthetic heart valve replacement. Current interpretive data was last revised on 2019. Blood 09/16/2023 3:02 AM CDT 09/16/2023 3:31 AM CDT Sara Jimenez MD LAB BLOOD ORDERABLES Final Re sult Performing Organization Address City/[facility] Co de Phone Number [facility] [place] [address] * (ABNORMAL) Comprehensive metabolic panel (09/16/2023 3:02 AM CDT) Sodium 137 135 - 145 mmol/L Potassium, pl 3.7 3.3 - 4.9 mmol/L [facility] Chloride 105 97 - 110 mmol/L [facility] CO2 23 22 - 32 mmol/L [facility] Anion gap 9 2 - 15 mmol/L [facility] BUN 20 6 - 25 mg/dL [facility] Creatinine 0.58(L) 0.60 - 1.10 mg/dL [facility] Glucose 101 70 - 199 mg/dL [facility] Comment: Interpretive Data Fasting glucose >/= 126 mg/dl is diagnostic for diabetes. ?? Fasting is defined as no caloric intake for at least 8 hours. Fasting glucose between 100 mg/dl to 125 mg/dl is diagnostic of prediabetes. In a patient with classic symptoms of hyperglycemia or hyperglycemic crisis, a random glucose >/= 200 mg/dl is diagnostic for diabetes. In the absence of unequivocal hyperglycemia, results should be confirmed by repeat testing. The classification and Diagnosis of Diabetes Diabetes Care 2021; 46: S19-S40. Current interpretive data was last revised 2022. Calcium 8.4(L) 8.5 - 10.3 mg/dL [facility] Bilirubin, total 0.8 0.1 - 1.2 mg/dL [facility] Protein, pl 5.9(L) 6.5 - 8.5 g/dL [facility] Albumin 3.1(L) 3.5 - 5.0 g/dL [facility] Alk phos 78 40 - 130 Units/L [facility] ALT 33 7 - 45 Units/L [facility] AST 84(H) 10 - 45 Units/L [facility] Blood 09/16/2023 3:02 AM CDT 09/16/2023 3:57 AM CDT us Sara Jimenez MD LAB BLOOD ORDERABLES Final Re sult [facility] [place] [address] * (ABNORMAL) CBC with auto differential (09/16/2023 3:02 AM CDT) WBC 12.7(H) 3.8 - 9.9 K/cumm Hgb 11.5(L) 11.9 - 15.5 g/dL [facility] Hct 35.2(L) 35.6 - 45.5 % [facility] Plt 209 150 - 400 K/cumm [facility] MPV 11.2 9.1 - 12.3 fL [facility] RBC 3.93 3.90 - 5.20 M/cumm [facility] MCV 89.6 81.3 - 96.4 fL [facility] MCH 29.3 27.1 - 33.3 pg [facility] MCHC 32.7 32.3 - 35.7 g/dL [facility] RDW CV 12.8 11.1 - 14.9 % [facility] RDW SD 42.1 35.7 - 48.1 fL [facility] NRBC abs 0.00 0.00 - 0.01 K/cumm [facility] Blood 09/16/2023 3:02 AM CDT 09/16/2023 3:49 AM CDT us Sara Jimenez MD LAB BLOOD ORDERABLES Final Re sult [facility] [place] [address] * (ABNORMAL) Urinalysis reflex to microscopic and culture Urine (09/16/2023 3:02 AM CDT) Color, ur Maryana Yellow Clarity, ur Clear Clear [facility] Specific gravity, ur 1.028 1.003 - 1.030 [facility] pH, urine 6.0 [facility] Comment: Interpretive Data ? Urine pH is affected by diet, medications, systemic acid-base disturbances, and renal tubular function. ??pH may affect urinary stone formation. ??For example, urine pH below 6.0 may help reduce the tendency for calcium phosphate stones and pH greater than 6.0 may reduce the tendency for uric acid stone formation. Source: [facility] [employer] Current Interpretive Data was last revised on 2017 Protein, ur ql 3+(A) Negative [facility] Glucose, ur ql Negative Negative [facility] Ketones, ur 2+(A) Negative [facility] Bilirubin, ur Negative Negative [facility] Blood, ur 2+(A) Negative [facility] Urobilinogen, ur <2.0 <2.0 mg/dL [facility] Nitrite, ur Negative Negative [facility] Leukocyte esterase, ur Negative Negative [facility] UA reflex comment Reflex to microscopic [facility] will be performed. [facility] Urine 09/16/2023 3:02 AM CDT 09/16/2023 3:22 AM CDT us Sara Jimenez MD LAB MICROBIOLOGY - GENERAL OR DERABLES Final Result [facility] [place] [address] * XR Outside Reference (09/16/2023 2:57 AM CDT) Impressions [id number] - 09/16/2023 2:57 AM CDT These images are for Reference purposes only and have not been reviewed by [facility]. ??There will be no report generated by a [facility]. Narrative [facility] - 09/16/2023 2:57 AM CDT EXAMINATION: ??Images For Reference Purposes Only us Sara Jimenez MD IMG XR PROCEDURES Final Resul t Performing Organization Address City/[facility] Co de Phone Number [facility] * XR Outside Reference (09/16/2023 2:56 AM CDT) Impressions [facility] - 09/16/2023 2:56 AM CDT These images are for Reference purposes only and have not been reviewed by [facility]. ??There will be no report generated by a [facility]iologist. Narrative [facility] - 09/16/2023 2:56 AM CDT EXAMINATION: ??Images For Reference Purposes Only us Sara Jimenez MD IMG XR PROCEDURES Final Resul t Performing Organization Address City/[facility]/ZIP Co de Phone Number [facility] * XR Outside Reference (09/16/2023 2:55 AM CDT) Impressions [facility] - 09/16/2023 2:55 AM CDT These images are for Reference purposes only and have not been reviewed by [facility]. ??There will be no report generated by a [facility]iologist. Narrative [facility] - 09/16/2023 2:55 AM CDT EXAMINATION: ??Images For Reference Purposes Only Sara Jimenez MD IMG XR PROCEDURES Final Resul t Performing Organization Address [facility] de Phone Number [facility] * XR Outside Reference (09/16/2023 2:54 AM CDT) Impressions [facility] - 09/16/2023 2:54 AM CDT These images are for Reference purposes only and have not been reviewed by [facility]. ??There will be no report generated by a [facility]iologist. Narrative [facility] - 09/16/2023 2:54 AM CDT EXAMINATION: ??Images For Reference Purposes Only Sara Jimenez MD IMG XR PROCEDURES Final Resul t Performing Organization Address [facility] de Phone Number [facility] * Neuro CT Outside Consult (09/16/2023 2:52 AM CDT) Anatomical Region Laterality Modality N/A Computed Tomogra phy 09/16/2023 3:23 AM CDT Impressions 09/16/2023 12:12 PM CDT 1. ??No acute intracranial process. 2. ??No acute fracture of the cervical spine. 3. ??Severe multilevel degenerative disc disease of the cervical spine with up to severe spinal canal stenosis at C3-C4 and up to severe neuroforaminal stenosis at multiple levels as described above. 4. ??Chronic-appearing lacunar infarcts in the left insula and right thalamus. 5. ??1.8 cm right thyroid nodule. Recommend follow up of the Incidental thyroid nodule Additional Imaging in 3 Months with thyroid ultrasound. The findings, conclusions and recommendations within this report do not replace the initial findings, conclusions ??and recommendations made at the facility where the study was performed based upon the imaging and clinical condition at that time. ??Comparison with the prior report and clinical history is necessary. ??The provided images may or may not represent the [facility] source data set and thus may contain changes that may lower the accuracy of this second-opinion interpretation. Dictated by: Pedro Dias MD The radiology attending physician has personally reviewed this study, and had reviewed and/or edited this written report and agrees with it. Electronically signed by: Jason Serrato M.D. Narrative 09/16/2023 12:12 PM CDT EXAMINATION: RADIOLOGY CONSULTATION ON OUTSIDE IMAGING STUDY STUDY INITIALLY PERFORMED: 09/16/[address] [facility]. TYPE OF STUDY: Multiple CT images of the head and cervical spine without intravenous contrast are provided at the time of this interpretation. CONTRAST ROUTE: No contrast was administered. The protocol was adequate to address the clinical question. The outside final report was not available at the time of this second opinion interpretation. TYPE OF CONSULTATION: Consult on outside imaging study with images submitted through Outside Image Sharing Service DATE OF CONSULTATION: 09/16/2023 3:17 AM HISTORY: Fall with tibia-fibula fracture. COMPARISON: None available. FINDINGS: Diffuse parenchymal volume loss with ex vacuo dilatation of ventricles. ??Confluent subcortical and periventricular white matter hypodensities are nonspecific with sequela of chronic small vessel ischemic disease. ??Intracranial atherosclerotic vascular calcifications are noted. Chronic left lacunar infarct in the left insula and right thalamus. There is no acute intracranial hemorrhage. Ventricles are of normal size and morphology. No mass effect or midline shift is present. The escobedo-white matter differentiation is normal. The visualized portions of the orbits are normal. The visualized portions of the mastoids are normal. The visualized portions of the paranasal sinuses are normal. No fractures are identified. Reversal of expected cervical lordosis centered at C5-C6. ??There is anterolisthesis at C3-C4. ??Non-instrumented fusion at C4-C5. There is no acute fracture. Vertebral bodies are normal in height without compression fractures. Severe multilevel degenerative disc disease with varying degrees of uncovertebral and facet arthropathy as well as degenerative endplate sclerosis and irregularities. ??There is up to severe spinal canal stenosis at C3-C4. ??There is up to severe neural foraminal stenosis on the right at C5-C6, on the left at C4-C5, left C3-C4. The craniocervical junction is normal. Limited views of the skull base appear normal. The sphenoid sinus is well aerated. No soft tissue abnormality is identified. ??Biapical parenchymal scarring. Bone island in the left lateral process of C2. Procedure Note Jason Serrato MD - 09/16/2023 EXAMINATION: RADIOLOGY CONSULTATION ON OUTSIDE IMAGING STUDY STUDY INITIALLY PERFORMED: 09/16/[address] [facility]. TYPE OF STUDY: Multiple CT images of the head and cervical spine without intravenous contrast are provided at the time of this interpretation. CONTRAST ROUTE: No contrast was administered. The protocol was adequate to address the clinical question. The outside final report was not available at the time of this second opinion interpretation. TYPE OF CONSULTATION: Consult on outside imaging study with images submitted through Outside Image Sharing Service DATE OF CONSULTATION: 09/16/2023 3:17 AM HISTORY: Fall with tibia-fibula fracture. COMPARISON: None available. FINDINGS: Diffuse parenchymal volume loss with ex vacuo dilatation of ventricles. Confluent subcortical and periventricular white matter hypodensities are nonspecific with sequela of chronic small vessel ischemic disease. Intracranial atherosclerotic vascular calcifications are noted. Chronic left lacunar infarct in the left insula and right thalamus. There is no acute intracranial hemorrhage. Ventricles are of normal size and morphology. No mass effect or midline shift is present. The escobedo-white matter differentiation is normal. The visualized portions of the orbits are normal. The visualized portions of the mastoids are normal. The visualized portions of the paranasal sinuses are normal. No fractures are identified. Reversal of expected cervical lordosis centered at C5-C6. There is anterolisthesis at C3-C4. Non-instrumented fusion at C4-C5. There is no acute fracture. Vertebral bodies are normal in height without compression fractures. Severe multilevel degenerative disc disease with varying degrees of uncovertebral and facet arthropathy as well as degenerative endplate sclerosis and irregularities. There is up to severe spinal canal stenosis at C3-C4. There is up to severe neural foraminal stenosis on the right at C5-C6, on the left at C4-C5, left C3-C4. The craniocervical junction is normal. Limited views of the skull base appear normal. The sphenoid sinus is well aerated. No soft tissue abnormality is identified. Biapical parenchymal scarring. Bone island in the left lateral process of C2. IMPRESSION: 1. No acute intracranial process. 2. No acute fracture of the cervical spine. 3. Severe multilevel degenerative disc disease of the cervical spine with up to severe spinal canal stenosis at C3-C4 and up to severe neuroforaminal stenosis at multiple levels as described above. 4. Chronic-appearing lacunar infarcts in the left insula and right thalamus. 5. 1.8 cm right thyroid nodule. Recommend follow up of the Incidental thyroid nodule Additional Imaging in 3 Months with thyroid ultrasound. The findings, conclusions and recommendations within this report do not replace the initial findings, conclusions and recommendations made at the facility where the study was performed based upon the imaging and clinical condition at that time. Comparison with the prior report and clinical history is necessary. The provided images may or may not represent the [facility] source data set and thus may contain changes that may lower the accuracy of this second-opinion interpretation. Dictated by: Pedro Dias MD The radiology attending physician has personally reviewed this study, and had reviewed and/or edited this written report and agrees with it. Electronically signed by: Jason Serrato M.D. Sara Jimenez MD IMG CT PROCEDURES Final Resul t * XR Outside Reference (09/16/2023 2:51 AM CDT) Impressions [facility] - 09/16/2023 2:51 AM CDT These images are for Reference purposes only and have not been reviewed by [facility]. ??There will be no report generated by a [facility]. Narrative [facility] - 09/16/2023 2:51 AM CDT EXAMINATION: ??Images For Reference Purposes Only Sara Jimenez MD IMG XR PROCEDURES Final Resul t [facility] * Neuro CT Outside Consult (09/16/2023 2:50 AM CDT) Anatomical Region Laterality Modality N/A Computed Tomogra phy 09/16/2023 3:23 AM CDT Impressions 09/16/2023 12:12 PM CDT 1. ??No acute intracranial process. 2. ??No acute fracture of the cervical spine. 3. ??Severe multilevel degenerative disc disease of the cervical spine with up to severe spinal canal stenosis at C3-C4 and up to severe neuroforaminal stenosis at multiple levels as described above. 4. ??Chronic-appearing lacunar infarcts in the left insula and right thalamus. 5. ??1.8 cm right thyroid nodule. Recommend follow up of the Incidental thyroid nodule Additional Imaging in 3 Months with thyroid ultrasound. The findings, conclusions and recommendations within this report do not replace the initial findings, conclusions ??and recommendations made at the facility where the study was performed based upon the imaging and clinical condition at that time. ??Comparison with the prior report and clinical history is necessary. ??The provided images may or may not represent the [facility] source data set and thus may contain changes that may lower the accuracy of this second-opinion interpretation. Dictated by: Pedro Dias MD The radiology attending physician has personally reviewed this study, and had reviewed and/or edited this written report and agrees with it. Electronically signed by: Perla Blum 09/16/2023 12:12 PM CDT EXAMINATION: RADIOLOGY CONSULTATION ON OUTSIDE IMAGING STUDY STUDY INITIALLY PERFORMED: 09/16/[address] [facility]. TYPE OF STUDY: Multiple CT images of the head and cervical spine without intravenous contrast are provided at the time of this interpretation. CONTRAST ROUTE: No contrast was administered. The protocol was adequate to address the clinical question. The outside final report was not available at the time of this second opinion interpretation. TYPE OF CONSULTATION: Consult on outside imaging study with images submitted through Outside Image Sharing Service DATE OF CONSULTATION: 09/16/2023 3:17 AM HISTORY: Fall with tibia-fibula fracture. COMPARISON: None available. FINDINGS: Diffuse parenchymal volume loss with ex vacuo dilatation of ventricles. ??Confluent subcortical and periventricular white matter hypodensities are nonspecific with sequela of chronic small vessel ischemic disease. ??Intracranial atherosclerotic vascular calcifications are noted. Chronic left lacunar infarct in the left insula and right thalamus. There is no acute intracranial hemorrhage. Ventricles are of normal size and morphology. No mass effect or midline shift is present. The escobedo-white matter differentiation is normal. The visualized portions of the orbits are normal. The visualized portions of the mastoids are normal. The visualized portions of the paranasal sinuses are normal. No fractures are identified. Reversal of expected cervical lordosis centered at C5-C6. ??There is anterolisthesis at C3-C4. ??Non-instrumented fusion at C4-C5. There is no acute fracture. Vertebral bodies are normal in height without compression fractures. Severe multilevel degenerative disc disease with varying degrees of uncovertebral and facet arthropathy as well as degenerative endplate sclerosis and irregularities. ??There is up to severe spinal canal stenosis at C3-C4. ??There is up to severe neural foraminal stenosis on the right at C5-C6, on the left at C4-C5, left C3-C4. The craniocervical junction is normal. Limited views of the skull base appear normal. The sphenoid sinus is well aerated. No soft tissue abnormality is identified. ??Biapical parenchymal scarring. Bone island in the left lateral process of C2. Procedure Note Jason Serrato MD - 09/16/2023 EXAMINATION: RADIOLOGY CONSULTATION ON OUTSIDE IMAGING STUDY STUDY INITIALLY PERFORMED: 09/16/[address] [facility]. TYPE OF STUDY: Multiple CT images of the head and cervical spine without intravenous contrast are provided at the time of this interpretation. CONTRAST ROUTE: No contrast was administered. The protocol was adequate to address the clinical question. The outside final report was not available at the time of this second opinion interpretation. TYPE OF CONSULTATION: Consult on outside imaging study with images submitted through Outside Image Sharing Service DATE OF CONSULTATION: 09/16/2023 3:17 AM HISTORY: Fall with tibia-fibula fracture. COMPARISON: None available. FINDINGS: Diffuse parenchymal volume loss with ex vacuo dilatation of ventricles. Confluent subcortical and periventricular white matter hypodensities are nonspecific with sequela of chronic small vessel ischemic disease. Intracranial atherosclerotic vascular calcifications are noted. Chronic left lacunar infarct in the left insula and right thalamus. There is no acute intracranial hemorrhage. Ventricles are of normal size and morphology. No mass effect or midline shift is present. The escobedo-white matter differentiation is normal. The visualized portions of the orbits are normal. The visualized portions of the mastoids are normal. The visualized portions of the paranasal sinuses are normal. No fractures are identified. Reversal of expected cervical lordosis centered at C5-C6. There is anterolisthesis at C3-C4. Non-instrumented fusion at C4-C5. There is no acute fracture. Vertebral bodies are normal in height without compression fractures. Severe multilevel degenerative disc disease with varying degrees of uncovertebral and facet arthropathy as well as degenerative endplate sclerosis and irregularities. There is up to severe spinal canal stenosis at C3-C4. There is up to severe neural foraminal stenosis on the right at C5-C6, on the left at C4-C5, left C3-C4. The craniocervical junction is normal. Limited views of the skull base appear normal. The sphenoid sinus is well aerated. No soft tissue abnormality is identified. Biapical parenchymal scarring. Bone island in the left lateral process of C2. IMPRESSION: 1. No acute intracranial process. 2. No acute fracture of the cervical spine. 3. Severe multilevel degenerative disc disease of the cervical spine with up to severe spinal canal stenosis at C3-C4 and up to severe neuroforaminal stenosis at multiple levels as described above. 4. Chronic-appearing lacunar infarcts in the left insula and right thalamus. 5. 1.8 cm right thyroid nodule. Recommend follow up of the Incidental thyroid nodule Additional Imaging in 3 Months with thyroid ultrasound. The findings, conclusions and recommendations within this report do not replace the initial findings, conclusions and recommendations made at the facility where the study was performed based upon the imaging and clinical condition at that time. Comparison with the prior report and clinical history is necessary. The provided images may or may not represent the [facility] source data set and thus may contain changes that may lower the accuracy of this second-opinion interpretation. Dictated by: Pedro Dias MD The radiology attending physician has personally reviewed this study, and had reviewed and/or edited this written report and agrees with it. Electronically signed by: Jason Serrato M.D. Sara Jimenez MD IM CT PROCEDURES Final Resul t * XR Outside Reference (09/16/2023 2:42 AM CDT) Impressions [facility] - 09/16/2023 2:42 AM CDT These images are for Reference purposes only and have not been reviewed by [facility]. ??There will be no report generated by a [facility]. Narrative [facility] - 09/16/2023 2:42 AM CDT EXAMINATION: ??Images For Reference Purposes Only Sara Jimenez MD IMG XR PROCEDURES Final Resul t [facility] documented in this encounter Visit Diagnoses Diagnosis Cervical spondylosis with myelopathy- Primary Other closed fracture of distal end of left tibia, initial encounter Closed fracture of shaft of left tibia, unspecified fracture morphology, initial encounter Hypocalcemia Cervical spondylosis with myelopathy Closed fracture of shaft of left tibia, unspecified fracture morphology, initial encounter Acute pain due to trauma Encounter for medication review Discharge planning issues Pulmonary nodule Other diseases of lung, not elsewhere classified Weakness of both arms Other musculoskeletal symptoms referable to limbs Electrolyte imbalance Electrolyte and fluid disorders not elsewhere classified Cervical spondylosis with myelopathy documented in this encounter Admitting Diagnoses Diagnosis Closed fracture of part of tibia Closed fracture of unspecified part of tibia Closed fracture of shaft of left tibia, unspecified fracture morphology, initial encounter Cervical spondylosis with myelopathy documented in this encounter Administered Medications Inactive Administered Medications - up to 3 most recent administrations Medication Order MAR Action Action Date Dose Rate Site acetaminophen (TYLENOL) tablet 1,000 mg 1,000 mg, oral, Every 6 hours, First dose (after last modification) on [place] 09/17/23 at 1630, Indications: PainIndications:Pain Given 09/29/2023 5:36 PM CDT 1,000 mg Given 09/29/2023 12:07 PM CDT 1,000 mg Given 09/28/2023 11:22 PM CDT 1,000 mg benzocaine-menthoL (CHLORASEPTIC) lozenge 1 lozenge 1 lozenge, mouth/throat, Every 2 hours PRN, sore throat, Starting on Thu09/21/23 at 0538 Given 09/24/2023 11:02 AM CDT 1 lozenge Given 09/22/2023 9:02 PM CDT 1 lozenge bisacodyL (DULCOLAX) suppository 10 mg 10 mg, rectal, 2 times daily PRN, constipation, Starting on Thu09/23/23 at 1237, Indications: constipationIndications:constipa tion Given 09/23/2023 12:48 PM CDT 10 mg ceFAZolin (ANCEF) 1,000 mg in sodium chloride 0.9% 1,000 mL irrigation solution As needed, Starting on Thu09/20/23 at 1305, Intra-Op Given 09/20/2023 1:05 PM CDT Surgical Site gabapentin (NEURONTIN) capsule 300 mg 300 mg, oral, 2 times daily, First dose (after last modification) on Thu09/23/23 at 2100 Given 09/29/2023 8:14 AM CDT 300 mg Given 09/28/2023 8:03 PM CDT 300 mg Given 09/28/2023 8:22 AM CDT 300 mg heparin 5,000 unit/mL injection 5,000 Units 5,000 Units, subcutaneous, Every 8 hours scheduled, First dose on Thu09/25/23 at 1400, Indications: Deep Vein Thrombosis PreventionIndications:Deep Vein Thrombosis Prevention Given 09/29/2023 5:40 PM CDT 5,000 Units Left Lower Abdomen Given 09/29/2023 5:36 AM CDT 5,000 Units L eft Upper Abdomen Given 09/28/2023 9:13 PM CDT 5,000 Units L eft Lower Abdomen lidocaine (ASPERCREME) 4 % patch 2 patch 2 patch, transdermal, Administer over 12 Hours, Every 24 hours, First dose on Thu09/19/23 at 1315, Apply to affected area: back, neck Medication Applied 09/26/2023 1:18 PM CDT 2 patches Back Medication Applied 09/24/2023 1:41 PM CDT 2 patches Other (Comment) Medication Applied 09/23/2023 1:59 PM CDT 2 patches Other (Comment) methocarbamoL (ROBAXIN) tablet 1,000 mg 1,000 mg, oral, 4 times daily, First dose (after last modification) on Thu09/22/23 at 1700 Given 09/29/2023 5:36 PM CDT 1,000 mg Given 09/29/2023 12:07 PM CDT 1,000 mg Given 09/29/2023 8:14 AM CDT 1,000 mg naloxone (NARCAN) 0.4 mg/mL injection 0.04-0.4 mg 0.04-0.4 mg, intravenous, Every 10 min PRN, other, excessive sedation/respiratory depression, Starting on Thu09/20/23 at 1433, Dilute 0.4 mg with 9 mL NS (final concentration 0.04 mg/mL). For respiratory depression (respiratory rate less than 6), administer 0.4 mg IVP over 30 seconds. For excessive sedation administer 0.04 mg (1 mL) every 1 minute until desired level of alertness. Stop DIRECTOR OF ANNUAL GIVING and notify covering MD. This order has been ordered with DIRECTOR OF ANNUAL GIVING infusion, please review upon the discontinuation of DIRECTOR OF ANNUAL GIVING. For IV, administer over 30 seconds., Indications: Opioid ToxicityIndications:Opioid Toxicity ondansetron (ZOFRAN) injection 4 mg 4 mg, intravenous, Administer over 2 Minutes, Every 6 hours PRN, nausea, vomiting, Starting on Thu09/20/23 at 1435, Indications: nausea and vomitingIndications:nausea and vomiting oxyCODONE (ROXICODONE) tablet 5 mg 5 mg, oral, Every 4 hours PRN, 1st line for pain, Starting on Thu09/22/23 at 1143, Indications: PainIndications:Pain Given 09/29/2023 5:36 PM CDT 5 mg Given 09/29/2023 12:08 PM CDT 5 mg Given 09/28/2023 5:45 PM CDT 5 mg polyethylene glycol (MIRALAX) packet 17 g 17 g, oral, Daily, First dose on Thu09/19/23 at 0900, Indications: constipationIndications:constipation Given 09/25/2023 9:00 AM CDT 17 g Given 09/24/2023 8:39 AM CDT 17 g Given 09/22/2023 8:30 AM CDT 17 g senna-docusate (PERICOLACE) 8.6-50 mg per tablet 1 tablet 1 tablet, oral, 2 times daily, First dose on Thu09/16/23 at 2230, Hold for diarrhea., Indications: constipationIndications:constipation Given 09/29/2023 8:14 AM CDT 1 table t Given 09/28/2023 8:22 AM CDT 1 tablet Given 09/27/2023 8:53 PM CDT 1 tablet sodium chloride (OCEAN) 0.65 % nasal spray 2 spray 2 spray, each nostril, Every 2 hours PRN, congestion, Starting on Thu09/22/23 at 1703 Given 09/28/2023 5:24 AM CDT 2 sprays sodium chloride 0.9% flush 0.5-20 mL 0.5-20 mL, intra-catheter, Every 8 hours scheduled, First dose on 09/16/23 at 2230, Flush volume based on line type and size. Given 09/29/2023 5:43 AM CDT 10 mL Given 09/28/2023 8:05 PM CDT 10 mL Given 09/28/2023 1:46 PM CDT 10 mL sodium chloride 0.9% irrigation As needed, Starting on 09/20/23 at 1028, Intra-Op Given 09/20/2023 10:28 AM CDT 1,000 mL Surgical Site thrombin-recombinant 5,000 unit topical solution As needed, Starting on 09/20/23 at 1028, Intra-Op Given 09/20/2023 10:28 AM CDT 5,000 Units Surgical Site traZODone (DESYREL) tablet 50 mg 50 mg, oral, Nightly, First dose on 09/19/23 at 2100 Given 09/28/2023 8:03 PM CDT 50 mg Given 09/27/2023 8:53 PM CDT 50 mg Given 09/26/2023 8:20 PM CDT 50 mg vancomycin (VANCOCIN) solution As needed, Starting on 09/20/23 at 1315, Intra-Op Given 09/20/2023 1:15 PM CDT 1,000 mg Surgical Site documented in this encounter Discontinued Medications Medication Sig Discontinue Reason Start Date End Da te acetaminophen 500 mg capsuleIndications:Pain Take 2 capsules (1,000 mg total) by mouth every 6 (six) hours 09/29/2023 09/29/2023 gabapentin (NEURONTIN) 300 mg capsule Take 1 capsule (300 mg total) by mouth 2 (two) times a day 09/29/2023 09/29/2023 lidocaine (ASPERCREME) 4 % adhesive patch,medicated Place 2 patches on the skin daily 09/30/2023 09/29/2023 methocarbamoL (ROBAXIN) 500 mg tablet Take 2 tablets (1,000 mg total) by mouth 4 (four) times a day 09/29/2023 09/29/2023 polyethylene glycol (MIRALAX) 17 gram/dose bulk powderIndications:const ipation Take 17 g by mouth daily 09/29/2023 09/29/2023 senna-docusate (PERICOLACE) 8.6-50 mgIndications:constipat ion Take 1 tablet by mouth 2 (two) times a day 09/29/2023 09/29/2023 traZODone (DESYREL) 50 mg tablet Take 1 tablet (50 mg total) by mouth nightly 09/29/2023 09/29/2023 documented as of this encounter Active and Recently Administered Medications Times are shown in CDT. Scheduled Medication Order 09/27/2023 09/28/2023 09/29/2023 acetaminophen (TYLENOL) tablet 1,000 mg 1,000 mg, oral, Every 6 hours, First dose (after last modification) on Thu09/17/23 at 1630, Indications: Pain 0515 (Given - Provider: Abdi Peterson RN)1234 (Given - Provider: Priscila Crespo RN)1814 (Given - Provider: Priscila Crespo RN) 0053 (Given - Provider: Abdi Peterson RN)0510 (Given - Provider: Abdi Peterson RN)1206 (Given - Provider: Nancy Torrez)1719 (Given - Provider: Nancy Torrez)2322 (Given - Provider: Blake Joseph RN) 0543 (Not Given - Provider: Blake Joseph RN - Reason: Patient/family refused)1207 (Given - Provider: Priscila Crespo RN)1736 (Given - Provider: Priscila Crespo RN) gabapentin (NEURONTIN) capsule 300 mg 300 mg, oral, 2 times daily, First dose (after last modification) on Thu09/23/23 at 2100 0822 (Given - Provider: Priscila Crespo RN)2053 (Given - Provider: Abdi Peterson RN) 0822 (Given - Provider: Nancy Torrez)2002 (Given - Provider: Blake Joseph, TYLER) 0814 (Given - Provider: Priscila Crespo, TYLER) heparin 5,000 unit/mL injection 5,000 Units 5,000 Units, subcutaneous, Every 8 hours scheduled, First dose on Thu09/25/23 at 1400, Indications: Deep Vein Thrombosis Prevention 0515 (Given - Provider: Abdi Peterson, RN)1509 (Given - Provider: Priscila Crespo, TYLER)2101 (Given - Provider: Abdi Peterson RN) 0510 (Given - Provider: Abdi Peterson RN)1346 (Given - Provider: Nancy Torrez)2113 (Given - Provider: Blake Joseph, TYLER) 0536 (Given - Provider: Blake Joseph, TYLER)1740 (Given - Provider: Priscila Crespo RN) lidocaine (ASPERCREME) 4 % patch 2 patch 2 patch, transdermal, Administer over 12 Hours, Every 24 hours, First dose on Thu09/19/23 at 1315, Apply to affected area: back, neck 1623 (Not Given - Provider: Priscila Crespo RN - Reason: Patient/family refused) 1324 (Not Given - Provider: Nancy Torrez - Reason: Patient/family refused) 1257 (Not Given - Provider: Priscila Crespo RN - Reason: Patient/family refused) methocarbamoL (ROBAXIN) tablet 1,000 mg 1,000 mg, oral, 4 times daily, First dose (after last modification) on Thu09/22/23 at 1700 0822 (Given - Provider: Priscila Crespo RN)1234 (Given - Provider: Priscila Crespo, TYLER)1826 (Given - Provider: Priscila Crespo RN)2130 (Given - Provider: Dede Sahni RN) 0822 (Given - Provider: Nancy Torrez)1206 (Given - Provider: Nancy Torrez)1719 (Given - Provider: Nancy Torrez)2002 (Given - Provider: Blake Joseph, TYLER) 0814 (Given - Provider: Priscila Crespo RN)1207 (Given - Provider: Priscila Crespo RN)1736 (Given - Provider: Priscila Crespo RN) polyethylene glycol (MIRALAX) packet 17 g 17 g, oral, Daily, First dose on Thu09/19/23 at 0900, Indications: constipation 0823 (Not Given - Provider: Priscila Crespo RN - Reason: Patient/family refused) 922 (Not Given - Provider: Nancy Torrez - Reason: Patient/family refused) 104 (Not Given - Provider: Priscila Crespo RN - Reason: Patient/family refused) senna-docusate (PERICOLACE) 8.6-50 mg per tablet 1 tablet 1 tablet, oral, 2 times daily, First dose on Thu09/16/23 at 2230, Hold for diarrhea., Indications: constipation 0824 (Not Given - Provider: Priscila Crespo RN - Reason: Patient/family refused)2052 (Given - Provider: Abdi Peterson RN) 08 (Given - Provider: Nancy Torrez)2004 (Not Given - Provider: Blake Joseph RN - Reason: Order parameters not met) 08 (Given - Provider: Priscila Crespo RN) sodium chloride 0.9% flush 0.5-20 mL 0.5-20 mL, intra-catheter, Every 8 hours scheduled, First dose on Thu09/16/23 at 2230, Flush volume based on line type and size. 0517 (Given - Provider: Abdi Peterson RN)1400 (Due)2102 (Given - Provider: Abdi Peterson RN) 0514 (Given - Provider: Abdi Peterson RN)1346 (Given - Provider: Nancy Torrez)2004 (Given - Provider: Blake Joseph RN) 0543 (Given - Provider: Blake Joseph, TYLER)1400 (Due) traZODone (DESYREL) tablet 50 mg 50 mg, oral, Nightly, First dose on Thu09/19/23 at 2100 2052 (Given - Provider: Abdi Peterson RN) 2002 (Given - Provider: Blake Joseph, TYLER) PRN Medication Order 09/27/2023 09/28/2023 09/29/2023 benzocaine-menthoL (CHLORASEPTIC) lozenge 1 lozenge 1 lozenge, mouth/throat, Every 2 hours PRN, sore throat, Starting on Thu09/21/23 at 0538 bisacodyL (DULCOLAX) suppository 10 mg 10 mg, rectal, 2 times daily PRN, constipation, Starting on Thu09/23/23 at 1237, Indications: constipation HYDROmorphone (DILAUDID) injection 0.2 mg (CANCELED) 0.2 mg, intravenous, Administer over 2 Minutes, Every 4 hours PRN, breakthrough pain, Starting on Thu09/22/23 at 1818 0226 (Given - Provider: Abdi Peterson RN) naloxone (NARCAN) 0.4 mg/mL injection 0.04-0.4 mg 0.04-0.4 mg, intravenous, Every 10 min PRN, other, excessive sedation/respiratory depression, Starting on Thu09/20/23 at 1433, Dilute 0.4 mg with 9 mL NS (final concentration 0.04 mg/mL). For respiratory depression (respiratory rate less than 6), administer 0.4 mg IVP over 30 seconds. For excessive sedation administer 0.04 mg (1 mL) every 1 minute until desired level of alertness. Stop DIRECTOR OF ANNUAL GIVING and notify covering MD. This order has been ordered with DIRECTOR OF ANNUAL GIVING infusion, please review upon the discontinuation of DIRECTOR OF ANNUAL GIVING. For IV, administer over 30 seconds., Indications: Opioid Toxicity ondansetron (ZOFRAN) injection 4 mg 4 mg, intravenous, Administer over 2 Minutes, Every 6 hours PRN, nausea, vomiting, Starting on Thu09/20/23 at 1435, Indications: nausea and vomiting oxyCODONE (ROXICODONE) tablet 5 mg 5 mg, oral, Every 4 hours PRN, 1st line for pain, Starting on Thu09/22/23 at 1143, Indications: Pain 0515 (Given - Provider: Abdi Peterson RN)0823 (Given - Provider: Priscila Crespo RN - Comment: BLE/BUE)1509 (Given - Provider: Priscila Crespo RN) 1019 (Given - Provider: Nancy Torrez - Comment: scan didn't save)1745 (Given - Provider: Nancy Torrez) 1208 (Given - Provider: Priscila Crespo RN)1736 (Given - Provider: Priscila Crespo RN) sodium chloride (OCEAN) 0.65 % nasal spray 2 spray 2 spray, each nostril, Every 2 hours PRN, congestion, Starting on Thu09/22/23 at 1703 0524 (Given - Provider: Abdi Peterson RN) sodium chloride 0.9% flush 0.5-20 mL 0.5-20 mL, intra-catheter, As needed, line care, Starting on Thu09/16/23 at 2149, Flush volume based on line type and size. Flush before and after each use. documented in this encounter Orders Medications Ordered That Slava ht Not Have Been Administered Count Last Ordered Date First Ordered Date heparin 5,000 unit/mL inject ion 5,000 Units 1 09/25/2023 baclofen (LIORESAL) tablet 5 mg 1 metoprolol (LOPRESSOR) injection 5 mg 1 bisacodyL (DULCOLAX) suppository 10 mg 1 gabapentin (NEURONTIN) capsule 300 mg 1 03/2024 magnesium sulfate 1 g/100 mL in dextrose 5% (premix) 1 g 1 09/23/2023 traZODone (DESYREL) tablet 50 mg 2 09/23/19 24 09/19/2023 enoxaparin (LOVENOX) syringe 30 mg 2 202309/17/2023 HYDROmorphone (DILAUDID) injection 0.2 mg 3 09/22/2023 09/16/2023 magnesium sulfate 2 g/50 mL in water (premix) 2 g 3 09/22/2023 09/17/2023 methocarbamoL (ROBAXIN) tablet 1,000 mg 1 0 09/22/2023 oxyCODONE (ROXICODONE) tablet 5 mg 3 202309/21/2023 phenylephrine in 0.9% sodium chloride (NAMAN-SYNEPHRINE) 25,000 mcg/250 mL (100 mcg/mL) infusion (premix) solution 3 09/22/2023 09/19 potassium, sodium phosphates (PHOS-NAK) 280-160-250 mg packet 2 packet 1 09/22/2023 sodium chloride (OCEAN) 0.65 % nasal spray 2 spray 1 09/22/2023 benzocaine-menthoL (CHLORASE PTIC) lozenge 1 lozenge 1 09/21/2023 dextrose 5% and Lactated Ringer's infusion 4 09/21/2023 09/16/2023 gabapentin (NEURONTIN) capsule 200 mg 1 01/2024 HYDROmorphone (DILAUDID) injection 0.5 mg 2 09/21/2023 09/20/2023 Lactated Ringer's (LR) bolus 500 mL 2 09/2009/20/2023 lidocaine (PF) (XYLOCAINE) 1 0 mg/mL (1 %) preservative free injection 100 mg 1 09/21/2023 phenoL (CHLORASEPTIC) 1.4 % oral spray 1 spray 1 09/21/2023 dextrose (D10W) 10% bolus 250 mL 1 09/20/19 dextrose gel in packet 15 g 1 09/20/2023 glucagon injection 1 mg 1 09/20/2023 hydrALAZINE (APRESOLINE) injection 10 mg 1 09/20/2023 HYDROmorphone in 0.9% sodium chloride (DILAUDID) 20 mg/100 mL (0.2 mg/mL) (premix) 2 09/20/2023 insulin lispro (HumaLOG, ADM ELOG) 100 unit/mL injection 1-3 Units 1 09/20/2023 labetaloL (NORMODYNE,TRANDAT E) injection 20 mg 2 09/20/2023 Lactated Ringer's (LR) infusion 2 magnesium sulfate 4 g/100 mL in water (premix) 4 g 1 09/20/2023 naloxone (NARCAN) 0.4 mg/mL injection 0.04-0.4 mg 2 09/20/2023 09/16/2023 ondansetron (ZOFRAN) injection 4 mg 2 09/1909/16/2023 potassium chloride ER (KLOR- CON) extended release tablet 40 mEq 1 09/20/2023 acetaminophen (TYLENOL) tablet 1,000 mg 3 0 09/19/2023 09/16/2023 lidocaine (ASPERCREME) 4 % patch 2 patch 1 09/19/2023 magnesium oxide (MAG-OX) tablet 800 mg 3 09/18/2023 methocarbamoL (ROBAXIN) tablet 750 mg 2 11/2023 polyethylene glycol (MIRALAX) packet 17 g 1 09/19/2023 sodium chloride 0.9% infusion 2 09/19/2023 09/16/2023 sodium phosphate - potassium phosphate (K-PHOS NEUTRAL) tablet 500 mg 2 09/19/2023 famotidine (PEPCID) tablet 20 mg 1 09/18/19 OLANZapine (ZyPREXA) 5 mg in sterile water 1 mL (5 mg/mL) syringe 1 09/18/2023 potassium chloride (KLOR-CON ) packet 40 mEq 1 09/18/2023 potassium chloride 40 mEq/52 0 mL in sodium chloride 0.9% (premix) 40 mEq 1 09/18/2023 methocarbamoL (ROBAXIN) tablet 500 mg 2 09/2023 acetaminophen (TYLENOL) tablet 650 mg 1 08/2023 albuterol 2.5 mg/0.5 mL nebu lizer solution 2.5 mg 1 09/16/2023 calcium gluconate 2 g/100 mL in sodium chloride (premix) solution 2 g 1 09/16/2023 Carrier Fluids for Secondary Infusion - 0.9% Sodium Chloride 1 09/16/2023 ceFAZolin (ANCEF) 1 gram/10 mL in sterile water (premix) 1,000 mg 1 09/16/2023 ceFAZolin (ANCEF) 2,000 mg/2 0 mL in sterile water (premix) 2,000 mg 1 09/16/2023 diphenhydrAMINE (BENADRYL) 5 0 mg/mL injection 12.5 mg 1 09/16/2023 enoxaparin (LOVENOX) syringe 40 mg 1 2023 famotidine (PEPCID) 20 mg/50 mL in sodium chloride 0.9% (premix) 20 mg 1 09/16/2023 HYDROmorphone (DILAUDID) injection 0.4 mg 1 09/16/2023 ioversoL (OPTIRAY 350) syringe 75 mL 1 08/2023 Lactated Ringer's (LR) bolus 1,000 mL 1 08/2023 meperidine (DEMEROL) preserv ative free injection 12.5 mg 1 09/16/2023 morphine injection 4 mg 1 09/16/2023 oxyCODONE (ROXICODONE) tablet 2.5 mg 1 08/2023 prochlorperazine (COMPAZINE) injection 5 mg 1 09/16/2023 senna-docusate (PERICOLACE) 8.6-50 mg per tablet 1 tablet 1 09/16/2023 sodium chloride 0.9% flush 0.5-20 mL 2 08/2023 sodium chloride 0.9% irrigation 2 Lab Orders Without Results Count Last Ordered D ate First Ordered Date POCT GLUCOSE DEVICE 3 09/21/2023 09/20/19 24 MAGNESIUM 1 09/16/2023 POCT CREATININE - DEVICE 1 09/16/2023 EKG Orders Without Results Count Last Ordered D ate First Ordered Date ECG 12-LEAD 2 09/24/2023 09/16/2023 Diet Count Last Ordered Date First Orde red Date ADULT DISCHARGE DIET 1 09/29/2023 Nursing Count Last Ordered Date First Orde red Date DISCHARGE ACTIVITY 1 09/29/2023 DISCHARGE CALL PROVIDER 5 09/29/2023 DISCHARGE DRESSING 3 09/29/2023 DISCHARGE INSTRUCTIONS 1 09/29/2023 WEIGHT BEARING STATUS 1 09/29/2023 GUERRIER CATHETER - DISCONTINUE 2 09/24/2023 09/17/2023 QTC MONITORING 1 09/20/2023 WEIGH PATIENT 2 09/20/2023 09/16/2023 NURSING COMMUNICATION 1 09/19/2023 Consult Count Last Ordered Date First Orde red Date CONSULT TO PM&R PHYSICIAN 1 09/29/2023 IP CONSULT TO ORTHO SPINE 1 09/18/2023 IP CONSULT TO VASCULAR ACCESS TEAM 1 2023 IP CONSULT TO ORTHOPEDIC SURGERY 1 09/16/19 24 Admission Count Last Ordered Date First Orde red Date ADMIT TO INPATIENT 1 09/16/2023 Transfer Count Last Ordered Date First Orde red Date TRANSFER PATIENT TO NEW UNIT 3 09/24/2023 09/16/2023 Discharge Count Last Ordered Date First Orde red Date DISCHARGE PATIENT 1 09/29/2023 CORE MEASURES Count Last Ordered Date First Ord ered Date REASON FOR NO VTE PROPHYLAXI S - HOSPITAL ADMISSION - MEDICATIONS 1 09/20/2023 Case Request Count Last Ordered Date First Orde red Date CASE REQUEST OPERATING ROOM 2 09/20/2023 09/16/2023 ADT Patient Update Count Last Ordered Date Firs t Ordered Date UPDATE LEVEL OF CARE/SERVICE 1 09/20/2023 documented in this encounter Care Teams Security Program Manager Relationship Specialty Start Date End Date No, Physician PCP - General 09/16/23 01/17/24 documented as of this encounter
--- OUTSIDE RECORDS SUMMARY | 2024-04-02 06:32 | XMS_ITS | Encounter Summary ---
Author Organization [facility] Healthcare Address [address] [place] [address] Care Team Providers Care Mogul Operator Name Role Phone No, Physician Primary Care Provider [phone] Reason for Visit * Reason Comments Fall * Auth/Cert (Routine) Specialty Diagnoses / Procedures Referred By Clovis t Referred To Contact Diagnoses Hypocalcemia Closed fracture of shaft of left tibia, unspecified fracture morphology, initial encounter Other closed fracture of distal end of left tibia, initial encounter Fall/left leg fracture/level 2 Procedures NA Referral ID Status Reason Start Date Expiration Date Visits Re quested Visits Authorized [id number] 1 1 Encounter Details Date Type Department Care Team (Late st Contact Info) Description 09/16/2023 2:23 AM CDT - 09/29/2023 7:44 PM CDT Hospital Encounter [facility] [address] [place] [address] Diogo Lee MD [address] [place] [address] Ibrahima Middleton MD [address] [facility] [id number] [place] [address] Kirk Hollis MD [address] [place] [address] Hammad Taylor MD [address] [facility] 6A/6B/12A [place] [address] Other closed fracture of distal end of left tibia, initial encounter (Primary Dx); Closed fracture of shaft of left tibia, unspecified fracture morphology, initial encounter; Hypocalcemia; Cervical spondylosis with myelopathy Discharge Disposition: Discharge to SNF Social History Tobacco Use Types Packs/Day Years Used Date Smoking Tobacco: Former Cigarettes Q uit: 1964 Tobacco Cessation:Counseling Given: Not Answered [facility] Utilities Answer Date Recorded In the past 12 months has e [email or web address], [employer], or water [employer] threatened to shut off services in your [...] any clubs o r organizations such as congregational groups, unions, fraternal or athletic groups, or [...] care, and heating? Not very hard 09/16/2023 [facility] - Occupational Stress Questionnaire Answer Date Recorded [...] any time in the past 12 m [facility], were you homeless or living in [...] in this encounter Discharge Summaries * Penny Luna NP - 09/29/2023 1:43 PM CDT Images from the original note were not included. [facility] Trauma C Service Inpatient Discharge Summary This is a clinical resume for patient Aidee Domínguez for attending Ibrahima Middleton MD Admission Date: 09/16/2023 Admitting Provider: Hans Rodriguez MD Discharge Date: 09/29/2023 Hospitalization: Total duration of encounter: 13 days Team: Acute Care Surgery Primary Care Provider: No, Physician History of Present Illness: TRAUMA C [...] management of your chronic medical issues - [facility] has a primary care clinic that may be able to help if you don't have a primary care doctor - call [phone] to see if they can establish care. [...] DVT; (+) superficial vein thrombus - 09/25: [place] and upright cspine Xrs completed - 09/26: BUE motor exam stable. Cont PT/OT - 09/28: Doing well, tolerating diet and activity with well controlled pain; [place] in place; PMNR c/s for recs [...] faint Care Instructions: Precautions: cervical precautions Immobilization: [place] Activity: Up ad guy Therapy: PT/OT for OOB/mobilization as tolerated Follow-Up: Patient has follow up scheduled on 10/16/[address] Rodriguez located at [facility] 12A. Care Instructions: Incentive Spirometer - Continue to [...] surgical dressing until follow up with orthopedi Sutures/Dee Dee: Will be removed 3 weeks after surgical date. (10/07/2023) Please include on discharge orders if patient is going to a facility. Diet: Regular Additional Needs: Bone health referral at discharge Follow-Up: Patient has follow up scheduled on 10/06/[address] Taylor located at [facility] Follow up Contact Information for Follow-ups No, Physician Relationship: PCP - General Next Steps: Follow up Future Appointments Date Time Provider Department Center 10/06/2023 8:00 AM Hammad Taylor MD [facility] 6A OS 10/16/2023 1:00 PM Caron Main MD [facility] 10/16/2023 3:50 PM Hans Rodriguez MD [facility] [...] Departure Means Destination Comment s Discharge to [facility] documented in this encounter Progress Notes * Caroline Jarquin, RN - 09/29/2023 1:45 PM CDT 09/29/23 1343 Discharge Summary Discharge Disposition group home facility (short term care) Specify Facility [facility] Facility Contact Number [phone] Discharge Records Transfer Form Completed;Chart Copied Anticipated discharge level of care group home facility Actual Discharge Level of Care group home facility Does Actual Level of Care Match Care Team Recommendation? Yes Post Acute Care Plan Home Care Services N/A OP Services N/A DME N/A Post Acute Care Facility N/A Discharge Additional Assistance Does the patient need discharge transport arranged? Yes Type of Transportation Ambulance Has discharge transport been arranged? Yes Details of Transportation [facility] Trip #[id number] D/C Transport Anticipated Date 09/29/23 D/C Transport [...] at this time. Patient has been [facility]. CM spoke with the patient/family, admissions, medical team, and RNregarding discharge planning, and all are agreeable to discharge. Post-acute care transfer packet completed and will be sent with the patient. RN provided with report number to nurses station. Room #515-A provided by facility. Mode of transport has been discussed with the patient/family, MD, nursing staff. All are agreeable to plan and understand their responsibilities to ensure the safe transfer. Patient/family informed patient may require ambulance transport. software developer manager informed patient/family that even if the patient's insurance benefit includes ambulance transport, it may not cover the full cost of the transportation. The patient may be responsible for any kua-[id number]-[id number] cost, includingmileage beyond the nearest appropriate facility. [...] IM letter right. CM confirmed with [facility] facility liaison, that bed was available and collected the following information: Report: [phone] (Adi ramirez RN) Room: 515-A CM relayed all information to the team. CM faxed DC summary to facility as requested. CM noted EMS scheduled pickup time to liaison. All parties agreeable to DC. MINESH Vernon lamp decorator * Naheed Cruz MD - 09/29/2023 8:40 AM CDT Images from the original note were not included. [facility] Trauma C Service- Floor Daily Progress Note [...] injection 5,000 Units, 5,000 Units, subcutaneous, Q8H [facility], Naheed Cruz MD, 5,000 Units at 09/29/23 [...] Constitutional: no acute distress, awake/conversant, pleasant HEENT: [place] collar in place; normocephalic/atraumatic CV: tachycardic, [...] DVT; (+) superficial vein thrombus - 09/25: [place] and upright cspine Xrs completed - 09/26: BUE motor exam stable. Cont PT/OT - 09/28: Doing well, tolerating diet and activity with well controlled pain; [place] in place; PMNR c/s for recs [...] 09/28/2023 7:18 PM CDT Spiritual Care Ramon Rika 09/28/23 [id number] 09/28/23 1900 Time Spent Start Time 1820 Stop Time 1835 Time Calculation (min) 15 min Patient Spiritual Assessment Spirituality Assessed Yes Protestant Affiliation Scientology Active in Confucianism Yes Clinical Encounter Type Visited With Patient and family together Response Type Routine visit Routine Visit Follow-up Reason for visit Support Outcomes and Progress Aligning care with patient's values Achieved Preserve dignity and respect Achieved Demonstrating care and respect Achieved Arielle affirmation Achieved Establish rapport and connectedness Achieved Sense of peace Achieved Interventions Interventions Offer emotional support;Offer spiritual/alevism support;Prayer;Active listening * Carmencita Funez - 09/28/2023 [...] treatment team and contact the PT or DIESEL PLANT OPERATOR currently assigned to this patient. If a physical therapy clinician is not assigned to this patient, please call [phone]. 09/28/23 1426 PT Last Visit Session Type Treatment PT Received On 09/28/23 Safe Environment Arm band checked;Patient found in supine;Session completed bedside;Gait belt utilized for all out of bed mobility Subjective Agreeable to Therapy Family/Caregiver Present No Precautions Precautions Cervical spine;Fall risk Weight Bearing Restrictions Yes RLE Weight Bearing WBAT LLE Weight Bearing NWB Braces/Orthoses Cervical collar;Other (mentasta J, SLS LLE) Precaution Handout Issued No [...] the discharge summary Recommendation/Plan PT Recommendation/Plan (S) Fdc Facility Patient at high risk for Falls;Readmission;Injury [...] mobility. 09/28/23 10/12/23 -- Cosigned by Daniel Nichole, PT at 09/28/2023 5:24 PM CDT * [...] Acute and Critical Care Surgery * An Youngblood OT - 09/28/2023 10:04 AM CDT Occupational Therapy [...] not assigned to this patient, please call [phone]. 09/28/23 1004 General Session Type Treatment OT Received On 09/28/23 Safe Environment Arm band checked;Patient found in supine;Session completed bedside;Gait belt not utilized, see comment (no OOB mobility) Subjective Agreeable to Therapy Family/Caregiver Present No Precautions Precautions Cervical spine;Fall risk Weight Bearing Restrictions Yes LLE Weight Bearing NWB Braces/Orthoses Cervical collar;Other ([place]; SLS LLE) Precaution Handout Issued No [...] the discharge summary Recommendation/Plan OT Recommendation (S) Fdc Facility Patient at high risk for Falls;Readmission;Injury [...] from the original note were not included. [facility] Tra[facility] C Service- Floor Daily Progress Note [...] Constitutional: no acute distress, awake/conversant, pleasant HEENT: [place] collar in place; normocephalic/atraumatic CV: tachycardic, [...] Lab Units 09/25/23 2251 09/25/23 1406 09/25/23 0709/24/23211509/23/23 1604 SODIUM mmol/L 137 -- -- 140 [...] (+) superficial vein thrombus - 09/25: [x] [place] and [x]upright cspine XRs - 09/26: [...] Note Admit Date: 09/16/2023 Hospital Day: 12 [facility] Dx: C/f cervical myelopathy Relevant PMHx: [...] 4-/5 4/5 Wrist flexion (C7) 4-/5 4/5 Trade Show Manager (C8) 4-/5 4/5 Interosseous of hand (T1) [...] bilateral C4-5 foraminotomies. Precautions: cervical precautions Immobilization: [place] Marky Activity: Up ad guy DVT ppx: SQH [...] on 10/16/[address] Rodriguez located at [address] Nette Middleton MD, PhD Department of Orthopaedic Surgery PGY-1 [facility] Please call with questions during daytime. See below for overnight issues. If you know the resident's name on the appropriate orthopaedic surgery team, please use [email or web address] to page resident directly. If questions arise and the appropriate resident can't be reached or you are calling overnight, please contact [phone] ([facility] 7:30 PM - 6:30 AM - Floor Resident) or [phone] (24 hours/day - Consult Resident) Cosigned by Hans Rodriguez MD at 09/28/2023 8:00 AM CDT * Naheed Cruz MD - 09/27/2023 1:13 PM CDT Images from the original note were not included. [facility] Tra[facility] C Service- Floor Daily Progress Note [...] injection 5,000 Units, 5,000 Units, subcutaneous, [facility]8H [facility], Naheed Cruz MD, 5,000 Units at 09/27/23 0515 HYDROmorphone (DILAUDID) injection 0.2 mg, 0.2 mg, intravenous, Q4H PRN, Sterling Patrick MD, 0.2 mg at 09/27/23 0226 lidocaine (ASPERCREME) 4 % patch 2 patch, 2 patch, transdermal, Q24H, Hannah Chun, LUIGI, 2 patch at 09/26/23 1318 methocarbamoL (ROBAXIN) [...] 0.5-20 mL, 0.5-20 mL, intra-catheter, PRN, Marcos Salazarmo, MD traZODone (DESYREL) tablet 50 mg, 50 [...] Constitutional: no acute distress, awake/conversant, pleasant HEENT: [place] collar in place; normocephalic/atraumatic CV: tachycardic, [...] (+) superficial vein thrombus - 09/25: [x] [place] and [x]upright cspine XRs - 09/26: [...] Admit Date: 09/16/2023 Hospital Day: 10 [facility] Dx: C/f cervical myelopathy Relevant PMHx: [...] 4/5 4/5 Wrist flexion (C7) 4/5 4/5 Trade Show Manager (C8) 4/5 4/5 Interosseous of hand (T1) [...] WWP Lab/Diagnostic Review: Recent Labs Lab Units 09/25/231 09/25/23 0725 09/24/23 2116 09/20/23 0952 09/19/23 1568 SODIUM mmol/L 137 -- 140 < > [...] Wound Care: Maintain surgical dressing until follow-up Sutures/Atlantic: Will be removed 3 weeks after surgical [...] on 10/06/[address] Taylor located at [facility] Assessment/Plan: 78 y.o. female with above injury/deformity. Patient is now status post C2-7 PSF w C3-6 decompression and bilateral C4-5 foraminotomies. Precautions: cervical precautions Immobilization: [place] Activity: Up ad guy DVT ppx: [...] on 10/16/[address] Rodriguez located at [address] Fernando Barrios MD, [facility] Orthopaedic Surgery PGY-2 Please call with questions during daytime. See below for overnight issues. If you know the resident's name on the appropriate orthopaedic surgery team, please use [email or web address] to page resident directly. If questions arise and the appropriate resident can't be reached or you are calling overnight, please contact [phone] ([place]- 7:30 PM - 6:30 AM - Floor Resident) or [phone] (24 hours/day - Consult Resident) Cosigned by Hans Rodriguez MD at 09/26/2023 7:43 PM CDT Associated attestation - Hans Rodriguez MD - 09/26/2023 7:43 PM CDT I personally examined Ms. Domínguez this morning. I agree with the assessment and plan by Dr. Barrios. * Bruce Jack MD - 09/26/2023 5:16 AM CDT Images from the original note were not included. [facility] Trauma C Service- Floor Daily Progress Note [...] (Tylenol, Robaxin, Oxy). UOP 300 + 2x. Drlgw1v. BMP stable. No DVT RUE on Duplex. [...] Nightly, Hannah Chun NP, 50 mg at 147 Past Medical: No [...] Constitutional: no acute distress, awake/conversant, pleasant HEENT: [place] collar in place; normocephalic/atraumatic CV: tachycardic, [...] (+) superficial vein thrombus - 09/25: [x] [place] and [x]upright cspine XRs Pulmonary nodule [...] not assigned to this patient, please call [phone]. 09/25/23 3119 General Session Type Treatment OT Received On 09/25/23 Safe Environment Arm band checked;Patient found in supine;Gait belt not utilized, see comment (no OOB mobility on this date) Subjective Agreeable to Therapy Family/Caregiver Present No Precautions Precautions Fall risk Weight Bearing Restrictions Yes LLE Weight Bearing NWB Braces/Orthoses Cervical collar ([place]) Precaution Comments verbally reviewed precautions with [...] this the discharge summary Recommendation/Plan OT Recommendation Fdc Facility Patient at high risk for Falls;Readmission;Injury [...] from the original note were not included. [facility] Trauma C Service- Floor Daily Progress Note [...] injection 5,000 Units, 5,000 Units, subcutaneous, [facility]H [facility], Nhaeed Cruz MD, 5,000 Units at 09/25/23 1301 [...] flush 0.5-20 mL, 0.5-20 mL, intra-catheter, Q8H [facility], Marcos [facility] MD, 10 mL at 09/25/23 [...] Constitutional: no acute distress, awake/conversant, pleasant HEENT: [place] collar in place; normocephalic/atraumatic CV: tachycardic, [...] augmentation 80-95 for 48h postop - Needs [place] and upright cspine XRs - 09/22: [...] to document stability. If no prior imaging isavailable, recommend follow-up CT in 6-12 months. Discharge [...] time spent on separately billable procedures. MD Marylou [facility] Acute and Critical Care Surgery [facility] * Klever Phillips MD - 09/24/2023 7:16 [...] 09/22 PM: - Ortho spine: q3h neurochecks, [place], OOBTC/PT as tolerated, upright c-spine XR [...] IVrelated swelling. Sensation equal at shoulders. Hand cash posting representative L 3/5 R 2/5 apparently limited by [...] 09/19 -Ortho spine: q4h neurochecks, transfer to [facility] floor - PT/OT consult #at risk for [...] further evaluation when more awake - Reassessment / PM onwards with patient AO x 3: [...] evaluation for placement Code status: full code Kleevr Phillips MD 09/24/23 7:16 AM Cosigned by Bryan Acuna MD at 09/24/2023 12:12 PM CDT * Nette Middleton MD PhD - 09/24/2023 7:02 AM CDT Orthopaedic Spine Service Daily Progress Note Admit Date: 09/16/2023 Hospital Day: 8 [facility] Dx: C/f cervical myelopathy Relevant PMHx: [...] In: 990 [P.O.:890; IV Piggyback:100] Out: 2024 [Urine:1984; Drains:40] No intake/output data recorded. Physical Exam: Gen: no acute distress Neuro: A&Ox3 Dressing: clean/dry/intact Wound Vac(s): Not applicable Hemo Vac(s): removed today Motor: Muscle Strength Right Left Shoulder abduction (C5) 4-/5 4-/5 Elbow flexion (C5/6) 4-/5 4-/5 Elbow extension (C7) 4/5 4/5 Wrist extension (C6) 4/5 4/5 Wrist flexion (C7) 4/5 4/5 Trade Show Manager (C8) 4/5 4/5 Interosseous of hand (T1) [...] bilateral C4-5 foraminotomies. Precautions: cervical precautions Immobilization: [place] Marky Activity: Up ad guy DVT ppx: SQH [...] on 10/16/[address] Rodriguez located at [address] Nette Middleton MD, PhD Department of Orthopaedic Surgery PGY-1 [facility] Please call with questions during daytime. See below for overnight issues. If you know the resident's name on the appropriate orthopaedic surgery team, please use [email or web address] to page resident directly. If questions arise and the appropriate resident can't be reached or you are calling overnight, please contact [phone] ([place]- 7:30 PM - 6:30 AM - Floor Resident) or [phone] (24 hours/day - Consult Resident) Cosigned by Hans Rodriguez MD at 09/24/2023 11:41 AM CDT * Isidro Gomes MD - 09/24/2023 6:24 AM CDT Images from the original note were not included. [facility] Trauma C Service- Floor Daily Progress Note [...] PRN, Xiao Gomez MD, 1 lozenge at 09/22/23 210 bisacodyL (DULCOLAX) suppository 10 mg, 10 mg, rectal, BID PRN, Klever Phillips MD, 10 mg at09/23/23 1248 enoxaparin (LOVENOX) syringe 30 mg, 30 mg, subcutaneous, Q12H LILA, Klever Phillips MD, 30 mgat 09/23/23 2030 gabapentin (NEURONTIN) capsule 300 mg, 300 mg, oral, BID, Klever Phillips MD, 300 mg at 06/12/24 2024 HYDROmorphone (DILAUDID) injection 0.2 mg, 0.2 mg, intravenous, Q4H PRN, Sterling Patrick MD, 0.2 mg at 09/24/23 0534 lidocaine (ASPERCREME) 4 % patch 2 patch, 2 patch, transdermal, Q24H, Hannah Chun, LUIGI, 2 patch at 09/23/23 1359 methocarbamoL (ROBAXIN) [...] Recent Labs Lab Units 09/23/23 16009/22/23200309/22/23 0716 09/21/23233309/21/232050 SODIUM mmol/L 141 138 -- -- 139 [...] not displayed. Recent Labs Lab Units 09/19/23 9338 PROTIME (PT) sec 14.4* INR 1.26* MRI [...] augmentation 80-95 for 48h postop - Needs [place] and upright cspine XRs - 09/22: [...] medications/tests/procedures, Referring & communicating with other health rn acute care, and Independent inte rpretation of results 45 [...] on separately billable procedures. Ami Akins MD -[facility] Acute and Critical Care Surgery [facility] * Plog, Trevor Celestin MD PhD - [...] exceptfor waxing and waning C5. Interval History: 612 AM -Ortho spine: q3h neurochecks, [place], OOBTC/PT as tolerated, upright c-spine XR [...] IVrelated swelling. Sensation equal at shoulders. Hand cash posting representative L 3/5 R 2/5 apparently limited by [...] 09/19 -Ortho spine: q3h neurochecks, transfer to [facility] OU - PT/OT consult #at risk for [...] as documented in the resident's/fellow's note.. * OzielHannah francis, OT - 09/23/2023 8:45 AM CDT Occupational [...] not assigned to this patient, please call [phone]. 09/23/23 0853 General Session Type Re-Evaluation (s/p cervical spinal fusion) OT Received On 09/23/23 Safe Environment Arm band checked Subjective Agreeable to Therapy Family/Caregiver Present No Precautions Precautions Fall risk Weight Bearing Restrictions Yes LLE Weight Bearing NWB Braces/Orthoses Cervical collar ([place]) Precaution Handout Issued No Precaution Comments [...] Assessment RUE Assessment X RUE Comments Decreased cash posting representative strength noted LUE Assessment LUE Assessment X LUE Comments Decreased cash posting representative strength noted Cognition Arousal/Alertness Alert;Appropriate responses to [...] this the discharge summary Recommendation/Plan OT Recommendation Fdc Facility Patient at high risk for Falls;Readmission;Injury [...] Note Admit Date: 09/16/2023 [facility]: C/f cervical myelopathy Relevant PMHx: None [...] 4/5 4/5 Wrist flexion (C7) 4/5 4/5 Trade Show Manager (C8) 4/5 4/5 Interosseous of hand (T1) [...] WWP Lab/Diagnostic Review: Recent Labs Lab Units 09/22/23200309/20/23 0952 09/19/23 2358 SODIUM mmol/L 138 < > 141 [...] and bilateral C4-5 foraminotomies. Precautions: n/a Immobilization: [place] Activity: Up ad guy DVT ppx: [...] MD, PhD Department of Orthopaedic Surgery PGY-1 [facility] Please call with questions during daytime. See below for overnight issues. If you know the resident's name on the appropriate orthopaedic surgery team, please use [email or web address] to page resident directly. If questions arise and the appropriate resident can't be reached or you are calling overnight, please contact [phone] ([place]- 7:30 PM - 6:30 AM - Floor Resident) or [phone] (24 hours/day - Consult Resident) Cosigned by [...] History: 09/22 AM -Ortho spine: q3h neurochecks, [place], OOBTC/PT as tolerated -PE weaned -TTOU pending [...] IVrelated swelling. Sensation equal at shoulders. Hand cash posting representative L 3/5 R 2/5 apparently limited by [...] 09/19 -Ortho spine: q3h neurochecks, transfer to [facility] OU - PT/OT consult #at risk for [...] EMMANUEL, MS Department of Orthopaedic Surgery, PGY1 [facility] in [place] 09/23/23 7:14 AM Cosigned by Amy Juárez MD at 10/10/2023 4:08 PM CDT * Ayesha Liu MD - 09/23/2023 5:05 AM CDT Images from the original note were not included. [facility] Trauma C Service- Floor Daily Progress Note [...] Continuous, Shabnam Farmer NP, Stopped at 09/22/23 1700 enoxaparin (LOVENOX) syringe 30 mg, 30 mg, subcutaneous, Q12H [facility], Klever Phillips MD, 30 mgat 09/22/232100 gabapentin [...] infusion (premix) solution, 0-2.5 mcg/kg/min, intravenous, Titrated, Klever Phillips MD, Stopped at 09/22/23 1500 polyethylene [...] BID, Marcos [facility] MD, 1 tablet at 09/22/232045 sodium chloride (OCEAN) 0.65 % nasal spray [...] not displayed. Recent Labs Lab Units 09/19/23 2438 PROTIME (PT) sec 14.4* INR 1.26* MRI [...] augmentation 80-95 for 48h postop - Needs [place] and upright cspine XRs - 09/22: [...] consult - s/p OR 09/15 IMN - CHING LLE - Maintain SLS - PT/OT - [...] medications/tests/procedures, Referring & communicating with other health rn acute care, and Independent inte rpretation of results 45 [...] on separately billable procedures. Ami Akins MD -[facility] Acute and Critical Care Surgery [facility] [employer] * Gama Arteaga - 09/22/2023 8:45 PM CDT Spiritual Care Note: Chaplain Gama Arteaga M.Div., [facility] [phone] 09/22/23 1745 Time Spent Start Time 1745 [...] -Ortho spine: q3h neurochecks, MAP goals liberated, [place], OOBTC/PT as tolerated -MAP 70-100s on PE wean -D/c a-line pending PE wean -Dilaudid PHP ENGINEER to oxy q4h PRN -Start LVX 09/21 [...] IVrelated swelling. Sensation equal at shoulders. Hand cash posting representative L 3/5 R 2/5 apparently limited by [...] 09/19 -Ortho spine: q3h neurochecks, transfer to [facility] - PT/OT consult #at risk for [...] Progress Note Admit Date: 09/16/2023 Hospital Day: [facility] Dx: C/f cervical myelopathy Relevant PMHx: [...] 4/5 4/5 Wrist flexion (C7) 4/5 4/5 Trade Show Manager (C8) 4/5 4/5 Interosseous of hand (T1) [...] and bilateral C4-5 foraminotomies. Precautions: n/a Immobilization: [place] Activity: Up ad guy DVT ppx: [...] MD, PhD Department of Orthopaedic Surgery PGY-1 [facility] Please call with questions during daytime. See below for overnight issues. If you know the resident's name on the appropriate orthopaedic surgery team, please use [email or web address] to page resident directly. If questions arise and the appropriate resident can't be reached or you are calling overnight, please contact [phone] ([place]- 7:30 PM - 6:30 AM - Floor Resident) or [phone] (24 hours/day - Consult Resident) Cosigned by [...] -Ortho spine: q3h neurochecks, MAP goals liberated, [place], OOBTC/PT as tolerated -MAP 70-100s on PE wean -D/c a-line pending PE wean -Dilaudid PHP ENGINEER to oxy q4h PRN -Start LVX 6/10 PM Replete Mg Objective Physical Exam: Physical [...] IVrelated swelling. Sensation equal at shoulders. Hand cash posting representative L 3/5 R 2/5 apparently limited by [...] - Robaxin 750 QID lila - dilaudid PHP ENGINEER 0.2/10m/1.2mg 09/21: Switch dilaudid PHP ENGINEER to oxy 5mg q4h PRN #upper extremity [...] continue MAP > 80 through 48h postop, [place] collar to be fitted, OOBTC/PT as [...] EMMANUEL, MS Department of Orthopaedic Surgery, PGY1 [facility] in [place] 09/22/23 7:12 AM Cosigned by Amy Juárez MD at 10/10/2023 4:08 PM CDT * Isidro Gomes MD - 09/22/2023 6:02 AM CDT Images from the original note were not included. [facility] Trauma C Service- Floor Daily Progress Note [...] augmentation parameters today and wean naman Needs [place] and upright cspine XRs per ortho spine Pulm hygiene, IS Objective Medications: Current Facility-Administered Medications: acetaminophen (TYLENOL) tablet 1,000 mg, 1,000 mg, oral, Q6H, Amy Lara NP, 1,000 mg at 09/22/23 0417 benzocaine-menthoL (CHLORASEPTIC) [...] syringe 30 mg, 30 mg, subcutaneous, [facility]12H [facility], Hannah Chun NP, 30 mg at 09/18/232044 [...] injection 1-3 Units, 1-3 Units, subcutaneous, Q4H [facility], Gwendolyn Bee MD labetaloL (NORMODYNE,TRANDATE) injection 20 mg, 20 mg, intravenous, Q2H PRN, Gwendolyn Bee MD Lactated Ringer's (LR) bolus 500 mL, 500 mL, intravenous, Once, Gwendolyn Bee MD lidocaine (ASPERCREME) 4 % patch 2 patch, 2 patch, transdermal, Q24H, Hannah Chun, LUIGI, 2 patch at 09/19/23 1341 methocarbamoL (ROBAXIN) tablet 750 mg, 750 mg, oral, QID, Hannah Chun NP, 750 mg at 09/21/23 2047 naloxone (NARCAN) 0.4 mg/mL injection 0.04-0.4 [...] Marcos Salazar MD, 1 tablet at 09/21/23 2046 sodium chloride 0.9% flush 0.5-20 mL, 0.5-20 mL, intra-catheter, Q8H LILA, Marcos Salazar MD, 10 mL at 09/22/23 0519 sodium chloride 0.9% flush 0.5-20 mL, 0.5-20 mL, intra-catheter, PRN, Marcos Salazar MD traZODone (DESYREL) tablet 50 mg, 50 mg, oral, Nightly, Hannah Chun, LUIGI, 50 mg at 046 Past Medical: No [...] augmentation 80-95 for 48h postop - Needs [place] and upright cspine XRs Pulmonary nodule [...] medications/tests/procedures, Referring & communicating with other health rn acute care, and Independent inte rpretation of results 45 [...] ICU from Trauma standpoint. Ami Akins MD [facility] Acute and Critical Care Surgery [facility] * Sterling Patrick MD - 09/21/2023 8:02 [...] exceptfor waxing and waning C5. Interval History: 10 AM -AOx4 mental status improved, pain control adequate -500cc bolus -Ortho spine: q3h neurochecks, continue MAP > 80 through 48h postop, [place] collar to be fitted, OOBTC/PT as tolerated 6/10 PM Replete Mg Objective Physical Exam: Physical [...] IVrelated swelling. Sensation equal at shoulders. Hand cash posting representative L 3/5 R 2/5 apparently limited by [...] - Robaxin 750 QID lila - dilaudid PHP ENGINEER 0.2/10m/1.2mg #upper extremity weakness #cervical myelopathy # [...] continue MAP > 80 through 48h postop, [place] collar to be fitted, OOBTC/PT as [...] documented in the resident's/fellow's note.. * Doris Ibarra, OT - 09/21/2023 2:14 PM CDT 09/21/23 [...] treatment team and contact the PT or DIESEL PLANT OPERATOR currently assigned to this patient. If a physical therapy clinician is not assigned to this patient, please call [phone]. 09/21/23 1332 PT Last Visit Session Type Treatment PT Received On 09/21/23 Safe Environment Arm band checked;Session completed bedside;Patient found in supine;Gait belt not utilized, see comment (no OOB mobility performed this visit) Subjective Agreeable to Therapy Family/Caregiver Present Yes (Daughter) Precautions Precautions Fall risk Weight Bearing Restrictions Yes LLE Weight Bearing NWB Braces/Orthoses Cervical collar ([place] on throughout session) Precaution Handout Issued No Precaution Comments Verbally reviewed precautions, patient verbalized understanding Activity Tolerance Activity Tolerance Comments Nancy: SH () Pain Assessment Pain Assessment No/denies pain [...] this the discharge summary Recommendation/Plan PT Recommendation/Plan Fdc Facility Patient at high risk for Readmission;Falls;Injury [...] from the original note were not included. [facility] Trauma C Service- Floor Daily Progress Note [...] syringe 30 mg, 30 mg, subcutaneous, Q12H [facility], Hannah Chun NP, 30 mg at 09/18/23 204 famotidine (PEPCID) tablet 20 mg, 20 mg, [...] packet 17 g, 17 g, oral, Daily, aHnnah Chun NP, 17 g at 09/21/23 0816 senna-docusate (PERICOLACE) 8.6-50 mg per tablet 1 tablet, 1 tablet, oral, BID, Marcos Salazar MD, 1 tablet at 09/21/23 0816 sodium chloride 0.9% flush 0.5-20 mL, 0.5-20 mL, intra-catheter, Q8H ILLA, Marcos Salazar MD, 10 mL at 09/21/23 [...] and time. Labs/Imaging: Recent Labs Lab Units 09/20/23202609/20/23 1534 09/20/2395109/19/232357 WBC K/cumm 10.7* 9.9 -- 9.5 HEMOGLOBIN, POC g/dL -- -- 9.4* -- HEMOGLOBIN g/dL 9.1* 9.8* -- 9.8* HEMATOCRIT % 28.2* 30.7* -- 30.8* HEMATOCRIT POC % -- -- 28.0* -- PLATELETS K/cumm 270 277 -- 270 Recent Labs Lab Units 09/21/23 0734 09/21/23 0347 09/21/23 0026 09/20/23202609/20/23 1600 09/20/23153309/20/2395109/19/232357 SODIUM mmol/L -- -- -- 137 -- [...] medications/tests/procedures, Referring & communicating with other health rn acute care, and Independent inte rpretation of results 45 [...] on separately billable procedures. Ami Akins MD -[facility] Acute and Critical Care Surgery [facility] [employer] * Nette Middleton MD PhD - 09/21/2023 7:53 AM CDT Orthopaedic Spine Service Daily Progress Note Admit Date: 09/16/2023 Hospital Day: [facility] Dx: C/f cervical myelopathy Relevant PMHx: None [...] 4/5 4/5 Wrist flexion (C7) 4/5 4/5 Trade Show Manager (C8) 4/5 4/5 Interosseous of hand (T1) [...] 09/21/23 0734 09/21/23 0026 09/20/23202609/20/23 0952 09/19/23 2358 09/16/23 2259 09/16/23 0302 [...] and bilateral C4-5 foraminotomies. Precautions: n/a Immobilization: Max[place] Activity: Up ad guy DVT ppx: Holding [...] MD, PhD Department of Orthopaedic Surgery PGY-1 [facility] Please call with questions during daytime. See below for overnight issues. If you know the resident's name on the appropriate orthopaedic surgery team, please use [email or web address] to page resident directly. If questions arise and the appropriate resident can't be reached or you are calling overnight, please contact [phone] ([place]- 7:30 PM - 6:30 AM - Floor Resident) or [phone] (24 hours/day - Consult Resident) Cosigned by Hans Rodriguez MD at 09/21/2023 8:37 AM CDT Associated attestation - Hans Rodriguez MD - 09/21/2023 8:37 AM CDT I personally examined Ms. Domínguez this morning. I agree with the assessment and plan by Dr. Middleton. She may start subq heparin tomorrow for DVT prophylaxis. * Gwendolyn Bee MD - 09/21/2023 6:43 AM CDT Surgical [...] continue MAP > 80 through 48h postop, [place] collar to be fitted, OOBTC/PT as [...] IVrelated swelling. Sensation equal at shoulders. Hand cash posting representative L 3/5 R 2/5 apparently limited by [...] - Robaxin 750 QID lila - dilaudid PHP ENGINEER 0.2/10m/1.2mg #upper extremity weakness #cervical myelopathy # [...] continue MAP > 80 through 48h postop, [place] collar to be fitted, OOBTC/PT as [...] Progress Note Admit Date: 09/16/2023 Hospital Day: [facility] Dx: C/f cervical myelopathy Relevant PMHx: [...] the appropriate orthopaedic surgery team, please use [email or web address] to page resident directly. If questions arise and the appropriate resident can't be reached or you are calling overnight, please contact [phone] ([place]- 7:30 PM - 6:30 AM - Floor Resident) or [phone] (24 hours/day - Consult Resident) Cosigned by [...] Chun NP - 09/19/2023 1:26 PM CDT [facility] Trauma C Service- Floor Daily Progress Note [...] patch 2 patch, 2 patch, transdermal, Q24H, Hananh Chun NP magnesium oxide (MAG-OX) tablet 800 [...] g, 17 g, oral, Daily, Hannah Chun NP senna-docusate (PERICOLACE) 8.6-50 mg per tablet 1 tablet, 1 tablet, oral, BID, Marcos Salazar MD, 1 tablet at 09/18/23 0916 sodium chloride 0.9% flush 0.5-20 mL, 0.5-20 mL, intra-catheter, Q8H LILA, Marcos Salazar MD, 10 mL at 09/19/23 0519 sodium chloride 0.9% flush 0.5-20 mL, 0.5-20 mL, intra-catheter, PRN, Mracos Salazar MD Past Medical: No past medical [...] of staff Labs/Imaging: Recent Labs Lab Units 09/19/2313409/18/2312409/16/23 2259 WBC K/cumm 8.8 8.4 10.4* HEMOGLOBIN g/dL 9.3* 9.3* 10.3* HEMATOCRIT % 28.6* 28.4* 32.3* PLATELETS K/cumm 217 175 179 Recent Labs Lab Units 09/19/2313409/18/2312409/16/23 2259 SODIUM mmol/L 144 140 141 POTASSIUM [...] medications/tests/procedures, Referring & communicating with other health rn acute care, and Independent inte rpretation of results 45 [...] would not make much difference in her alf recovery. Jennifer plans to see her mother [...] Wound Care: Maintain surgical dressing until follow-up Sutures/Atlantic: Will be removed 3 weeks after surgical [...] on 10/06/[address] Taylor located at [facility] Chon Miner MD Orthopaedic Surgery PGY2 Please call with questions during daytime. See below for overnight issues. If you know the resident's name on the appropriate orthopaedic surgery team, please use [email or web address] to page resident directly. If questions arise and the appropriate resident can't be reached or you are calling overnight, please contact [phone] ([facility] 7:30 PM - 6:30 AM - Floor Resident) or [phone] (24 hours/day - Consult Resident) I personally [...] and wrist extension bilaterally, 3/5 triceps, 3/5 cash posting representative, and 2/5 interossei bilaterally. She was able [...] order MRI c spine Disposition update from [facility] meetings: attended in person. Not medically ready [...] Cruz MD - 09/18/2023 8:00 AM CDT [facility] Trauma C Service- Floor Daily Progress Note [...] 30 mg, 30 mg, subcutaneous, Q12H LILA, Amy Lara NP, 30 mg at 09/17/232009 famotidine (PEPCID) 20 mg/50 mL in sodium chloride 0.9% (premix) 20 mg, 20 mg, intravenous, Q24H Sher SHARP Horacio Guillermo, MD, Last Rate: 150 mL/hr at 09/17/23 0952, 20 mg at 09/17/23 0952 magnesium oxide (MAG-OX) tablet 800 mg, 800 mg, oral, Once, Hannah Chun NP methocarbamoL (ROBAXIN) tablet 500 mg, 500 mg, [...] flush 0.5-20 mL, 0.5-20 mL, intra-catheter, Q8H Sher SHARP Horacio Guillermo, MD, 10 mL at 09/18/23 [...] to person/place/date Labs/Imaging: Recent Labs Lab Units 09/18/23 0125 09/16/23225809/16/23 0302 WBC K/cumm 8.4 10.4* 12.7* HEMOGLOBIN g/dL 9.3* 10.3* 11.5* HEMATOCRIT % 28.4* 32.3* 35.2* PLATELETS K/cumm 175 179 209 Recent Labs Lab Units 09/18/23 0125 09/16/23225809/16/23 0302 SODIUM mmol/L 140 141 137 POTASSIUM [...] and Critical Care Surgery Department of Surgery [facility] ACCS Office: [phone] * Alicia Mills OT - 09/18/2023 7:56 [...] not assigned to this patient, please call [phone]. 09/18/23 0257 General Chart Reviewed Yes Session Type Evaluation [...] with pt Home [facility] Home Layout One level Home Access Stairs to enter without rails Entrance Stairs-Rails None Entrance Stairs-Number of Steps 1 Bathroom Shower/Tub Tub/shower unit Bathroom Toilet Raised Bathroom Equipment Grab bars in shower/tub;Grab bars around toilet Home Mobility Equipment-Available 4-Wheeled walker;Single point cane Home Mobility Equipment-Currently Using 4-Wheeled walker Home ADL Equipment-Available None Home ADL Equipment-Currently Using None Prior Function Level of [facility] Independent with ADLs;Independent functional transfers;Independent with ambulation;Independent with homemaking with ambulation Lives With Alone Receives Help From Spouse/Significant other (DIESEL PLANT OPERATOR from daughter) Driving Yes Mode of Transportation [...] name and address after me Kirk Goodman [address] [place] [address] Without looking at the clock, tell me [...] the discharge summary Recommendation/Plan OT Recommendation (S) Fdc Facility Patient at high risk for Falls;Readmission;Injury [...] treatment team and contact the PT or DIESEL PLANT OPERATOR currently assigned to this patient. If a physical therapy clinician is not assigned to this patient, please call [phone]. Multi-Disciplinary Problems (from Physical Therapy) Active Problems [...] reviewed precautions Home Living Type of [facility] Home Layout One level Home Access Stairs to enter without rails Entrance Stairs-Rails None Entrance Stairs-Number of Steps 2 Home Mobility Equipment-Available 4-Wheeled walker Home Mobility Equipment-Currently Using 4-Wheeled walker Additional Comments Use of 4WW at baseline Prior Function Level of [facility] Independent functional transfers;Independent with ambulation Lives With [...] Type Surgical pain Pain Interventions RN Notified (TYLER Gomes) Cognition Arousal/Alertness Alert;Appropriate responses to stimuli Orientation [...] this the discharge summary Recommendation/Plan PT Recommendation/Plan Fdc Facility Patient at high risk for Readmission;Falls;Injury [...] Wound Care: Maintain surgical dressing until follow-up Sutures/Atlantic: Will be removed 3 weeks after surgical [...] the appropriate orthopaedic surgery team, please use [email or web address] to page resident directly. If questions arise and the appropriate resident can't be reached or you are calling overnight, please contact [phone] ( 7:30 PM - 6:30 AM - Floor Resident) or [phone] (24 hours/day - Consult Resident) Cosigned by [...] Wound Care: Maintain surgical dressing until follow-up Sutures/Atlantic: Will be removed 3 weeks after surgical [...] Dotson MD Department of Orthopaedic Surgery, PGY-3 [facility] [place]/[facility] Please use [email or web address] to find phone number. Cosigned by Hammad [...] syringe 30 mg 30 mg subcutaneous [facility]H [facility] famotidine (PEPCID) tablet 20 mg 20 mg oral Daily insulin lispro (HumaLOG, ADMELOG) 100 unit/mL injection 1-3 Units 1-3 Units subcutaneous Q4H [facility] lidocaine (ASPERCREME) 4 % patch 2 patch 2 patch transdermal Q24H magnesium oxide (MAG-OX) tablet 800 mg 800 mg oral Daily methocarbamoL (ROBAXIN) tablet 750 mg 750 mg oral QID polyethylene glycol (MIRALAX) packet 17 g 17 g oral Daily senna-docusate (PERICOLACE) 8.6-50 mg per tablet 1 tablet 1 tablet oral BID sodium chloride 0.9% flush 0.5-20 mL 0.5-20 mL intra-catheter Q8H [facility] traZODone (DESYREL) tablet 50 mg 50 mg [...] Left Radial (Active) Placement Date/Time: 09/20/23 (c) 38 Size: 20 G Orientation: Left Location: Radial [...] Type: Bulb Size (Fr.): 15 Fr. Drain Holmen Size (mL): 100 mL Number of days: [...] mg q6h lila - Robaxin 750 QID illa - PRN dilaudid > dPCA when awake [...] plan with the ICU team and other medical/surgical consultant staff, making frequent assessments and decisions [...] plan with the ICU team and other medical/surgical consultant staff, making frequent assessments and decisions [...] plan with the ICU team and other medical/surgical consultant staff, making frequent assessments and decisions [...] plan with the ICU team and other medical/surgical consultant staff, making frequent assessments and decisions [...] plan with the ICU team and other medical/surgical consultant staff, making frequent assessments and decisions [...] Time in 1800 -JH Time out 1805 -JH Time Calculation (min) 5 min - Vascular Access Procedures Canceled on arrival -JH Canceled on arrival Procedure canceled;Other (comment) PIV started by floor - Peripheral IV 09/16/23 20 G Anterior;Left Forearm IV Properties Placement Date: 09/16/23 -MH Placement Time: 319 - Type: Angiocath -MH Size (Gauge): 20 G -MH Location Orientation: Anterior;Left -MH Location: Forearm -MH Peripheral IV 09/16/23 20 G Anterior;Right Hand IV Properties Placement Date: 09/16/23 -AO Placement Time: 758 -AO Size (Gauge): 20 G -AO Location Orientation: Anterior;Right -AO Location: Hand -AO Peripheral IV [...] Le Hurst RN Plan: Follow up: Le Hurst RN * Buffy Caicedo SLP - 09/18/2023 8:49 AM CDTAssociated Order(s): IT TRAINING SPECIALIST EVALUATE AND TREAT Speech-Language Pathology: Clinical Bedside Swallow HPI/PMH 78 y.o. 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 Pt awake, in bed upon IT TRAINING SPECIALIST arrival in room. PCT present and assisting [...] reports no difficulty with mastication without dentures. IT TRAINING SPECIALIST assist with feeding pt breakfast. Pt observed [...] Aspiration Risk: No aspiration risk (170-200) Plan IT TRAINING SPECIALIST Frequency of Services during current admission: One-time visit (Discharge from this service) IT TRAINING SPECIALIST Recommendation (Add'l Services): No further IT TRAINING SPECIALIST indicated Further Assessment/Follow up Indicated: Recommendations: (No further ST needs for swallowing.) Next Visit Plan:No further ST warranted Additional Referrals: none Please reference care plan for treatment goals, if indicated. Discharge Summary Statement If this is the last swallow therapy visit, this serves as the discharge summary. documented in this encounter Consult Notes * Dot Brown, KAROLYN - 09/29/2023 1:54 PM CDT NUTRITION ASSESSMENT [...] sodium chloride 0.9% Recent Labs Lab Units 09/25/23225009/24/23211509/23/23 1604 09/22/232003 SODIUM mmol/L 137 140 141 138 POTASSIUM PLASMA mmol/L 4.3 4.5 4.5 4.5 CHLORIDE mmol/L 100 104 104 102 CO2 mmol/L 30 29 32 30 BUN SERUM mg/dL 12 10 10 9 CREATININE mg/dL 0.49* 0.46* 0.45* 0.42* [id number] mL/min/1.73 m2 >90 >90 >90 >90 CALCIUM mg/dL 8.5 8.5 8.4* 8.0* PHOSPHORUS PLASMA mg/dL -- 3.3 3.8 1.9* MAGNESIUM mg/dL -- 1.9 1.9 1.8 Recent Labs Lab Units 09/25/23 2251 09/25/23 1406 09/25/23 0725 09/24/23211509/23/23 1604 09/22/232003 GLUCOSE mg/dL 102 -- -- [...] of Weight Used for Estimated Protein : [place] Dietary Orders (From admission, onward) Start Ordered 09/23/23 1100 Oral Nutrition Supplements ([facility]) Select Supplement: VARY/multiple Flavor, Ensure Plus- Evie; Quantity (# of cans): 1 can All Meals Question Answer Comment ([facility]) Select Supplement: VARY/multiple Flavor ([facility]) Select Supplement: Ensure Plus - Evie Quantity (# of cans): 1 can 09/23/23 0809 09/20/23 1434 Adult Diet Regular Diet effective now Question: ([facility]) Diet type Answer: Regular 09/20/23 1439 Reviewed. [...] previous diet Dot Brown MS RD LD #[phone] * Jose Rodriguez MD - 09/29/2023 10:53 AM CDTAssociated Order(s): CONSULT TO PM&R PHYSICIAN Consult Reason: Assess rehabilitation needs Requesting Attending: Ibrahima Middleton MD HISTORY Aidee Domínguez is a 78yo Right-handed woman with pmh of no reported medical history who was transferred from [facility] 09/16/23 with BUE weakness and LLE [...] Rodriguez on 09/20/23. She continues withuse of [place] orthosis and NW LLE in splint. She is seen today [...] live near [facility] in an [facility] ALLERGIES: No Known Allergies MEDICATIONS: Current Facility-Administered [...] 17 g 17 g oral Daily Hannah Chun NP 17 g at 900 senna-docusate (PERICOLACE) [...] and C3-C6 laminectomies and C2-C7 PSF 09/20/23. [place] orthosis NWB LLE in splint Recommendations: [...] safe discharge to Home; and transfer to jail facility is recommended, with continued PT and OT. Upon liberalization of LLE weight-bearing, she may benefit from intensive inpatient rehabilitation,prior to return to Home, which would necessitate completion of ADLs and transfers and mobility at Ellie-set-up level. Thank you for this consult. Please contact with any questions. Jose Rodriguez Canning Machine Operator Physical Medicine and Rehabilitation 45 minutes total collaborative time spent on hospital floor in face to face evaluation and discussion with patient, and in review and coordination and planning of patient care. * Georgia Tiwari RD - 09/23/2023 8:15 AM CDT NUTRITION [...] sodium chloride 0.9% Recent Labs Lab Units 09/22/23200309/21/23205024 2027 SODIUM mmol/L 138 139 137 POTASSIUM PLASMA mmol/L 4.5 4.3 4.2 CHLORIDE mmol/L 102 105 103 CO2 mmol/L 30 29 28 BUN SERUM mg/dL 9 6 7 CREATININE mg/dL 0.42* 0.37* 0.36* [id number] mL/min/1.73 m2 >90 >90 >90 CALCIUM mg/dL 8.0* 7.8* 7.7* PHOSPHORUS PLASMA mg/dL 1.9* 2.5 3.5 MAGNESIUM mg/dL 1.8 1.8 2.4 Recent Labs Lab Units 09/22/23 2004 09/22/23 0716 09/22/23 0323 09/21/234 09/21/23205009/21/23195809/21/23 1543 GLUCOSE mg/dL 135 -- -- [...] of Weight Used for Estimated Protein : [place] Dietary Orders (From admission, onward) Start Ordered 09/23/23 1100 Oral Nutrition Supplements ([facility]) Select Supplement: VARY/multiple Flavor, Ensure Plus- Evie; Quantity (# of cans): 1 can All Meals Question Answer Comment ([facility]) Select Supplement: VARY/multiple Flavor ([facility]) Select Supplement: Ensure Plus - Evie Quantity (# of cans): 1 can 09/23/23 0809 09/20/23 1434 Adult Diet Regular Diet effective now Question: ([facility]) Diet type Answer: Regular 09/20/23 1439 Reviewed. [...] GI output, I/O, Labs, PO intake Georgia Tiwari MS, RD-AP, LD, [facility] [phone] NSS Weekend / Consult [phone] * Yas Fuller MD - 09/18/2023 11:34 [...] extension 3/5 4-/5 Wrist flexion 3/5 4/5 Trade Show Manager 4/5 4/5 Interosseous of hand 3/5 4/5 [...] full discussion with family Plan: Admitted to S Further Workup: Post-void residual measurement Further Imaging: [...] surgery team,please use the Directory Search at [email or web address] to page resident directly. If questions arise and the appropriate resident can't be reached or you are calling overnight, please contact [phone] ([place]- 7:30 PM - 6:30 AM - Floor Resident) or [phone] (24 hours/day - Consult Resident) Fellow Addendum: [...] after recent surgery for tibia fracture Imaging: ME shows significant stenosis at C3-4 and stenosis [...] Fuller MD Orthopaedic Surgery - Spine Fellow [facility] in [place] I personally examined Ms. Domínguez on the [...] and wrist extension bilaterally, 3/5 triceps, 3/5 cash posting representative, and 2/5 interossei bilaterally. She was able [...] MD at 09/19/2023 8:53 PM CDT * Sher Sena, Marcos Negron MD - 09/16/2023 4:37 AM CDT [facility] Team C Trauma Surgery History and Physical [...] trauma service-Floor FOLLOWUP NEEDED: Patient may call [phone] - option 1 after discharge during normal businesshours (M-) to schedule a follow-up appointment if needed with the Acute [facility] Critical Care Surgery Clinic in the 3rd floor of the [place] for [facility] Trauma Surgery September 16, 2023 7:06 [...] Response: Oriented Best Motor Response: Obeys commands Arnett Coma Scale Score: 15 C-Spine Precautions: No [...] soft tissue swelling is noted. Dictated by: Eirs Goldstein M.D. Neuro CT Outside Consult Result [...] images may or may not represent the sun'aq source data set and thus may contain [...] images may or may not represent the sun'aq source data set and thus may contain changes that may lower the accuracy of this second-opinion interpretation. Dictated by: Pedro Dias MD XR Outside Reference Result Date: 09/16/2023 These images are for Reference purposes only and have not been reviewed by [facility] Radiology. There will be no report generated by a [facility] Radiologist. XR Outside Reference Result Date: 09/16/2023 These images are for Reference purposes only and have not been reviewed by [facility] Radiology. There will be no report generated by a [facility] Radiologist. XR Outside Reference Result Date: 09/16/2023 These images are for Reference purposes only and have not been reviewed by [facility] Radiology. There will be no report generated by a [facility] Radiologist. XR Outside Reference Result Date: 09/16/2023 These images are for Reference purposes only and have not been reviewed by [facility] Radiology. There will be no report generated by a [facility] Radiologist. XR Outside Reference Result Date: 09/16/2023 These images are for Reference purposes only and have not been reviewed by [facility] Radiology. There will be no report generated by a [facility] Radiologist. XR Outside Reference Result Date: 09/16/2023 These images are for Reference purposes only and have not been reviewed by [facility] Radiology. There will be no report generated by a [facility] Radiologist. Cosigned by Ibrahima Middleton MD at [...] or family members viewing this note through [employer]topia programs: This note was written as a [...] surgery team,please use the Directory Search at [email or web address] to page resident directly. If questions arise and the appropriate resident can't be reached or you are calling overnight, please contact [phone] ([place]- 7:30 PM - 6:30 AM - Floor Resident) or [phone] (24 hours/day - Consult Resident) Cosigned by [...] to proceed with surgery. Hammad Taylor MD Canning Machine Operator Orthopedic Trauma Service [facility] Orthopedics Hammad Taylor MD dictating using [employer] Software. Production Control Analyst variances may occur. documented in this encounter Nursing Notes * Priscila Crespo RN - 09/29/2023 2:21 PM CDT Report given to Mariaa at [facility]. Faxed script to [phone]. * Claire Tena RN - 09/24/2023 12:01 PM CDT Patient transferred to [facility]. No personal belongings at bedside to send with patient. No questions from receiving RN. * Hannah Ghotra RN - 09/20/2023 5:48 PM CDT Dilaudid PHP ENGINEER 20mg/100ml of sodium chloride was ordered for patient with the parameters of 0.2mg [id number] with a 1.2mg lockout per hour. Dilaudid CADD started (order ID [id number]) at 1456 with dual sign from second RN. Provider then D/C'd the original Dilaudid PHP ENGINEER order and re-ordered it (order ID [id number]) with thesame concentration, instructions and parameters (0.2mg q10 mins with a 1.2mg lockout per hour). Dual sign RN handoff completed at 1654 after clearing pump values. At 1657 there is a canceled entry under the discontinued order stating, provider ordered PHP ENGINEER standard dosing 0.2 dilaudid q10 min with a 1.2mg lockout/hr then D/C order but reordered under the same parameters; PHP ENGINEER not stopped, see handoff with dual nurse sign at 1654 under new order. 1 CADD pulled from [facility] and given in total; the CADD from 1456 (order ID [id number]). * Karley Guo RN - 09/19/2023 10:03 AM CDT Patient drowsy, irritable, and not participating in neuro assessment on arrival to pre-op at 0920. Patient asking to leave hospital. I spoke with her nurse Christian on 6500 and he said this neuro statuschange from being alert and oriented was noticed around 0630. I also spoke with DRY HOUSE OPERATOR Adiel and she said that the patient was alert and oriented when she assessed the patient yesterday at 4pm. LUIGI Chun ordered a head CT. In CT several minutes later patient refused head CT and surgery. She answered orientation questions appropriately. DRY HOUSE OPERATOR Adiel notified and said she would cancel the head CT. CT not performed. Surgical spine resident present when patient arrived back in pre-op holding. He spoke with patient and patient's daughter Jennifer. Patient refused to have surgery and daughter agreed. Spinal surgery canceled. documented in this encounter ED Notes * Maximiliano Santana RN - 09/16/2023 10:34 AM CDT Bed: ED2-4 Expected date: Expected time: Means of arrival: [...] created with voice recognition software. Occasional wrong-wordor '[id number]' substitutions may have occurred due to the [...] alert. Psychiatric: Mood and Affect: Mood normal. [facility] Medical Decision Making 78-year-old female history as [...] Course as of 09/17/23 0726 Time: 09/15 302 Comment: 78 yo F fall 2d ago [...] op By: Miquel Bagley MD Time: 09/15 08 Comment: Patient comfortable after CT ankle, denies pain. LLE neurovascularly intact, in plaster cast. Awaiting transfer to [facility]. Not requesting analgesia at this time. OR time 1228 per encounters By: Miquel Bagley MD Other closed fracture of distal end of left tibia, initial encounter Closed fracture of shaft of left tibia, unspecified fracture morphology, initial encounter Hypocalcemia Sara Jimenez MD Resident 09/17/23 0726 Cosigned by Diogo Lee MD at 09/17/2023 [...] 09/16/2023 2:41 AM CDT Pt transferred from [facility] after unwitnessed mechanical fall on Thursday morning. Per pt she was on the ground for approx 24 hours after she was found. -hit head, -LOC, -BT. Imaging at OSH shows pt has a L distal tib fib fx. PMS intact and pulses palpable on arrival. * Ami Bragg RN - 09/16/2023 2:23 AM CDT Bed: [facility] Expected date: 09/16/23 Expected time: 1:05 AM Means of arrival: Ambulance Comments: Ami Bragg RN 09/16/23 0223 documented in this encounter Miscellaneous Notes * Plan of Care - Priscila Crespo RN - 09/29/2023 6:04 PM CDT Goals: Clinical Goals for the Shift: pain control, safety, comfort Mcc Patient Centered Goal for Treatment: safety Summary: * ECIN Note - Caroline Jarquin RN - 09/29/2023 2:12 PM CDT Images from the original note were not included. Patient COVID neg result. MINESH Vernon lamp decorator * ECIN Note - Caroline Jarquin RN - 09/29/2023 8:53 AM CDT Images from the original note were not included. Patient Information: Patient Header Patient Information Patient Name: AIDEE DOMÍNGUEZ Date of 1945 (78 years) Sex: Female , OT Eval and Treat Last 72 Hours OT Evaluation No documentation. OT Treatment Row Name 09/28/23 1004 09/25/23 1452 09/23/23 0845 Session Type Treatment -BS Treatment -AK Re-Evaluation [...] NWB -AK NWB -EL Braces/Orthoses Cervical collar;Other [place]; [facility] LLE -BS Cervical collar [place] -AK Cervical collar [place] - Precaution Handout Issued No -BS [...] X -EL RUE Comments -- -- Decreased cash posting representative strength noted -EL LUE Assessment -- -- X -EL LUE Comments -- -- Decreased cash posting representative strength noted -EL Arousal/Alertness Alert;Appropriate responses to [...] this the discharge summary -EL OT Recommendation Fdc Facility -BS Fdc Facility -AK Fdc Facility -EL Patient at high risk for [...] -MS (r) MH (c) Braces/Orthoses Cervical collar;Other mentasta J, SLS LLE -MS (r) MH (c) [...] steps with a railing? 1 -MS (r) MH (c) Total 6 Click Score (range 6-24) 10 -MS Score Interpretation 28.13 -MS (r) MH (c) Safe Environment End of Therapy Session Safe Environment End of Therapy Session Patient left in recliner;RN notified;Chair alarm in place and activated;Call light within reach;Overbed table within reach -MS (r) MH (c) Assessment Prognosis Good -MS (r) MH (c) Problem List Decreased strength;Gait deviations;Decreased range of motion;Decreased endurance;Impaired balance;Decreased mobility;Pain -MS (r) MH (c) Barriers to Discharge Current Mobility Status;Decreased caregiver support;Home environment challenged -MS (r) MH (c) Plan Plan Continue with current plan;If this is the last note, consider this the discharge summary -MS (r) MH (c) Recommendation/Plan PT Recommendation/Plan Fdc Facility -MS (r) MH (c) Patient at high risk for Falls;Readmission;Injury [...] for self in the home -MS (r) MH (c) PT Recommendation/Plan Comments pt agreeable with PT POC -MS (r) MH (c) PT Frequency during current admission 5-7x/wk -MS (r) MH (c) Treatment/Interventions during current admission Balance Training;Bed mobility;Positioning;Range ofmotion;Strengthening;Therapeutic activity;Therapeutic exercise;Transfer training -MS (r) MH (c) Progress during current admission Progressing toward goals -MS (r) MH (c) Time Calculation Start Time 1426 -MS (r) MH (c) Stop Time 1520 -MS (r) MH (c) Time Calculation (min) 54 min -MS User Moran (r) = Recorded By, (t) = Taken By, (c) = Cosigned By Initials Name Effective Dates Carmencita Batista Soraida 07/27/23 - Daniel Nichole, PT 08/22/21 - [...] Location Orientation: Right Assessments Row Name 09/28/23 19309/28/23 1019 09/27/23 19209/27/23 1600 09/27/23 1200 Wound Status Evolving Evolving [...] Row Name 09/28/23 1930 09/28/23 1019 09/27/23 19209/27/23 1600 09/27/23 1200 Wound Status Evolving Evolving -- Evolving Evolving Site Assessment Clean;[place] Clean;Color appropriate for ethnicity;Dry -- Clean Clean [...] Location Orientation: Left Assessments Row Name 09/28/23 19309/28/23101809/27/238 09/27/23 1600 09/27/23 1200 Site Assessment RAFA [...] Bacitracin, Telfa, 4x4s, Tegaderm Assessments Row Name 09/28/23192909/28/23101809/27/23192709/27/23 1600 09/27/23 1200 Site Assessment RAFA RAFA RAFA RAFA RAFA Trice-wound Assessment RAFA RAFA RAFA RAFA RAFA Closure Unable to assess -- Unable to assess Unable to assess Unable to assess Drainage Amount None -- None None None Dressing Status -- -- Clean, dry, intact -- -- * Plan of Care - Caroline Jarquin RN - 09/29/2023 8:30 AM CDT 09/28/23 [facility] Discharge Planning Support System Children (daughter Jennifer [phone]) Anticipated discharge level of care group home facility Does the patient need discharge transport [...] by daughter Jennifer who noted preference is [facility] placement. CM contacted [facility] liaison, Jordyn [phone], who noted that facility does not have bed availabilityand have a wait list currently. CM relayed this to patient at bedside who noted to contact Jennifer regarding 2nd choice. Patient also noted frustration that [facility] cannot hold beds and now cannot accept. CM then called Jennifer back who noted 2nd choice as [facility]. CM contacted admissions liaison Margy [phone] who noted that patient is being reviewed [...] her area or for CM to contact [facility] clinic for new PCP. Awaiting response. CM to relayed appt time/date/provider name to Margy when secured. Jennifer noted she'd prefer to [facility] clinic. CM messaged via [employer] and secured appt for 10/[address], [address] [facility], [address]. CM relayed to Margy. Per [...] Patient and/or family are agreeable with plan. software developer manager will continue to follow and assist with discharge planning as needed. If any further discharge needs arise, please contact the covering casework manager. MINESH Vernon lamp decorator * Plan of Care - Blake Joseph [...] safety, mantain skin intgerity, q2 turns, rest Customer Experience Leader Patient Centered Goal for Treatment: safety Summary: [...] the Shift: pain control, safety, and comfort Customer Experience Leader Patient Centered Goal for Treatment: safety Summary: pt doing well today. Pt worked with pt this morning. Pts pain controlled with PRN pain medications * Plan of Care - Caroline Jarquin RN - 09/28/2023 9:00 AM CDT 09/28/23 [facility] Discharge Planning Support System Children (daughter Jennifer [phone]) Anticipated discharge level of care group home facility Does the patient need discharge transport [...] like patient to have referral send to [facility]. Cm called Jennifer back describing how insurance would likely not accept coverage of patient due to rec for SNF. Jennifer stated she'd still like the referral to be sent. CM sent referral via ecin, awaiting response. Jennifer noted that she will follow up with CM on SNF preference. Addendum 1330: CM contacted by Mellissa with [facility] via [employer] message noting that patient will need to [...] up call. Addendum 1500: CM called patient daughter Jennifer with VM left regarding SNF choice and [...] Patient and/or family are agreeable with plan. software developer manager will continue to follow and assist with discharge planning as needed. If any further discharge needs arise, please contact the covering casework manager. MINESH Vernon lamp decorator * Plan of Care - Abdi Peterson RN - 09/28/2023 4:17 AM CDT Goals: Clinical Goals for the Shift: pain control, safety, and comfort Customer Experience Leader Patient Centered Goal for Treatment: safety Summary: [...] the Shift: pain control, safety, and comfort Customer Experience Leader Patient Centered Goal for Treatment: safety Summary: * Plan of Care - Abdi Petersno RN - 09/27/2023 4:53 AM CDT Goals: Clinical Goals for the Shift: pain/safety management, vss, I&O, promote comfort/rest Customer Experience Leader Patient Centered Goal for Treatment: safety Summary: [...] Goals for the Shift: pain control, comfort Customer Experience Leader Patient Centered Goal for Treatment: safety Summary: [...] Clinical Goals for the Shift: pain control Mcc Patient Centered Goal for Treatment: safety Summary: Problem: Skin Integrity Impairment Risk Goal: Mobility will improve Outcome: Progressing Goal: Understanding of ways to prevent future skin breakdown will improve Outcome: Progressing Goal: Nutritional status will improve Outcome: Progressing Goal: Risk for impaired skin integrity will decrease Outcome: Progressing * Plan of Care - Arelis Cisse, TYLER - 09/25/2023 5:05 PM CDT Problem: Skin Integrity Impairment Risk Goal: Mobility will improve Outcome: Progressing Goal: Understanding of ways to prevent future skin breakdown will improve Outcome: Progressing Goal: Nutritional status will improve Outcome: Progressing Goal: Risk for impaired skin integrity will decrease Outcome: Progressing Goals: Clinical Goals for the Shift: pain control Mcc Patient Centered Goal for Treatment: safety Summary: VSS, I&Os, neuro/vasc check, safety, comfort, pain management, medications * Plan of Care - Caroline Jarquin RN - 09/25/2023 8:40 AM CDT 09/25/23 1018 Discharge Planning Support System Children (daughter Jennifer [phone]) Anticipated discharge level of care group home facility Does the patient need discharge transport [...] Facility N/A CM Progression of Care Update: Tack Cleaner noted patient has been recommended for SNF by PT/OT. software developer manager met with the patient at bedside to discuss recommendations by therapy and to work on a potential discharge disposition plan. Tack Cleaner provided education to patient on jail facilities and the rehabilitation process. Patient reported she was interested in short term SNF placement for rehabilitation. software developer manager provided a list of SNF to [...] Patient and/or family are agreeable with plan. software developer manager will continue to follow and assist with discharge planning as needed. If any further discharge needs arise, please contact the covering casework manager. MINESH Vernon lamp decorator * ECIN Note - Caroline Jarquin RN - 09/25/2023 7:54 AM CDT Images from the original note were not included. Patient Information: Patient Header Patient Information Patient Name: AIDEE DOMÍNGUEZ Date of 1945 (78 years) Sex: Female , OT Eval and Treat Last 72 Hours OT Evaluation Row Name 09/21/23 1414 09/18/23 2837 Chart Reviewed -- Yes -CD Session Type [...] with pt -CD [facility] -CD Home Layout -- One level -CD [...] Equipment-Currently Using -- None -CD Level of [facility] -- Independent with ADLs;Independent functional transfers;Independent with ambulation;Independent with homemaking with ambulation -CD Lives With -- Alone -CD Receives Help From -- Spouse/Significant other DIESEL PLANT OPERATOR from daughter -CD Driving -- Yes -CD [...] and address after me -- Kirk Goodman [address] [place] [address] -CD Without looking at the clock, tell [...] 2 assist -CD Transfer -- No NT 05/15 safety concerns -CD RUE Assessment -- X [...] the discharge summary -CD OT Recommendation -- Fdc Facility -CD Patient at high risk for [...] Weight Bearing NWB -EL Braces/Orthoses Cervical collar [place] -EL Precaution Handout Issued No -EL [...] RUE Assessment X -EL RUE Comments Decreased cash posting representative strength noted -EL LUE Assessment X -EL LUE Comments Decreased cash posting representative strength noted -EL Arousal/Alertness Alert;Appropriate responses to [...] this the discharge summary -EL OT Recommendation Fdc Facility -EL Patient at high risk for [...] -EL Start Time 0845 -EL Stop Time 0910 -EL Time Calculation (min) 25 min -EL User Moran (r) = Recorded By, (t) = Taken By, (c) = Cosigned By Initials Name Effective Dates EL Oziel Hannah, OT 11/07/22 - OT Notes 09/23/2023 3:15 PM Progress Notes signed by Hannah Ludwig, OT , PT Eval and Treat Last 72 Hours PT Evaluation No documentation. PT TREATMENT (Last 168 Hours) PT Treatment Row Name 09/21/23 1332 PT Last Visit Session Type Treatment -MM Safe Environment Arm band checked;Session completed bedside;Patient found in supine;Gait belt not utilized, see comment no OOB mobility performed this visit -MM Subjective Agreeable to Therapy -MM Family/Caregiver Present Yes Daughter -MM Precautions Precautions Fall risk -MM Weight Bearing Restrictions Yes -MM LLE Weight Bearing NWB -MM Braces/Orthoses Cervical collar [place] on throughout session -MM Precaution Handout Issued No -MM Precaution Comments Verbally reviewed precautions, patient verbalized understanding -MM Activity Tolerance Activity Tolerance Comments Nancy: TING () -MM Pain Assessment Pain Assessment No/denies [...] the discharge summary -MM Recommendation/Plan PT Recommendation/Plan Fdc Facility -MM Patient at high risk for [...] (Moisture associated skin damage) Assessments Row Name 09/25/2339909/25/23 0000 09/24/23189909/24/23 1206 09/24/23 0700 Wound Status Evolving Evolving Evolving Evolving Evolving Site Assessment Clean Clean Clean Clean;Excoriated Clean;[place];Excoriated Trice-wound Assessment Dry;Intact;Blanchable erythema Dry;Intact;Blanchable erythema Dry;Intact;Blanchable [...] Name 09/23/231899 Wound Status Evolving Site Assessment [place] Trice-wound Assessment Dry;Intact;Blanchable erythema Margins Unattached edges Closure Open to air Drainage Amount None Drainage Odor -- Dressing Status Clean/Dry/Intact Dressing Foam Interventions -- Surgical Site 09/16/23 Left Leg Date First Assessed 09/16/23 Site Leg Time First Assessed 1305 Days 8 Location Orientation: Left Assessments Row Name 09/25/23 0400 09/25/23 0000 09/24/23 19009/24/23 1206 09/24/23 0700 Site Assessment RAFA RAFA [...] Clinical Goals for the Shift: pain control Customer Experience Leader Patient Centered Goal for Treatment: safety Summary: [...] 09/22 PM: - Ortho spine: q3h neurochecks, [place], OOBTC/PT as tolerated, upright c-spine XR [...] IVrelated swelling. Sensation equal at shoulders. Hand cash posting representative L 3/5 R 2/5 apparently limited by [...] 09/19 -Ortho spine: q4h neurochecks, transfer to [facility] floor - PT/OT consult #at risk for [...] IVrelated swelling. Sensation equal at shoulders. Hand cash posting representative L 3/5 R 2/5 apparently limited by [...] or discontinued) [x] Sign-out was called to Naheed Cruz of the ACCS service. QUESTIONS? Call [phone] ([phone] Red 1). * Plan of Care - [...] Coping Goal: Ability to cope will improve 09/22/2023 09 by Miladys Cardenas RN Outcome: Progressing 09/22/2023 0936 by Miladys Cardenas RN Outcome: Progressing Problem: Health Behavior Goal: Identification of resources available to assist in meeting health care needs will improve 09/22/2023937 by Miladys Cardenas RN Outcome: Progressing 09/22/2023935 by Miladys Cardenas RN Outcome: Progressing Goals: [...] 1100 Summary: * Plan of Care - Yannick Jenkins RN - 09/22/2023 12:36 [...] 28.2 (L) 6/5 Ortho surgery EBL 150 6/9 Ortho/Spine surgery EBL 200 ml Monitor/TX: - [...] severity. Vitamin and Mineral Nutrition Information System. [facility] World Health Organization, 2011 (WHO/NMH/NHD/MNM/11.1) http://www.who.int/vmnis/indicators/haemoglobin.pdf https://acphospitalist.org/archives//coding.htm https://acphospitalist.org/archives//xgtifz-tbzzc-fhap-anemia.htmhttps:// acphospitalist.org/archives//iopoqa-cyeka-rsox-anemia.htm From the ICD-10-CM Coding Guidelines, use of terms such as likely, suspected, possible, or probable(associated with a specific diagnosis that is being evaluated, monitored, or treated as if it exists) are acceptable and can be coded in the inpatient setting when documented at the time of discharge. This documentation will become part of the patient???s medical record. Respectfully, Mer Petersen RN BSN CCDS Clinical Scratcher [email or web address] [phone] * Initial Assessments - Helen Murillo RN - 09/21/2023 11:16 AM CDT CM Initial Assessment Interview Note Information Obtained From: Patient (09/21/231113) Admission Source: transfer from H Impression: Patient transferred from [facility] for fall. Plan Includes: CM anticipate pt d/c home with HH vs rehab. Primary Source of Transportation: Does the patient need discharge transport arranged?: No (09/21/231113) Health Insurance Coverage: [employer] Medicare Prescription Coverage: yes Pharmacy: Primary Care Provider: [facility] pt moved home from [place] recently and is looking for a new PCP. Prior to Admission: Functional Status: Minimal assist with ADLs Primary Caregiver: Self Support System: Children Home Care Services: No Outpatient Services: No Durable Medical Equipment: Walker (wheeled) Living Arrangements: Alone Type of Residence: Apartment (09/21/231113) Potential discharge needs include: Home Health: Occupational therapy, Physical therapy, group home (09/21/231113) OP Services: no Dialysis: no Behavioral [...] Collaboration with Patient, Provider, Direct Care Nurse, Rn Security, and other members of theHealth Care Team to assure needed interventions completed. 2. Return patient to optimal level of self-care post discharge. 3. Tack Cleaner will follow for Discharge Planning - interventions [...] Please see above Clinical Indicators/Treatments: OP NOTE Brandon PREOPERATIVE DIAGNOSIS: Left tibia fracture (fracture type: [...] medical record. Respectfully, Mer Petersen RN BSN [facility] Clinical Scratcher [address] [email or web address] [email or web address] [phone] * Plan of Care - Felipa Martinez [...] control, PT/OT, MAP >80 * Plan of Care - Anais Martini RN - 09/20/2023 11:14 [...] improve Outcome: Progressing * Op Note - Hasn Rodriguez MD - 09/20/2023 10:20 AM CDT ..Operative Report Surgeon Hans Rodriguez MD Replacer(s) Surgeons and Role: * Hans Rodriguez MD [...] then turned to placing the C2 screws.A [place] 4 was placed on the inner ring [...] was no active bleeding identified. A 15 Bahraini drain was placed through a separate incision [...] Implant Name Type Inv. Item Serial No. Flat Examiner Lot No. LRB No. Used Action [employer] Infuse 20ga 2x1in Vial Absorbable Syringe Needle Medium Graft 5.6 [id number] - [id number] [employer] Infuse 20ga 2x1in Vial Absorbable Syringe Needle Medium Graft 5.6 [id number] MedtronicInc [id number] N/A 1 Implanted ALLOSOURCE Crushed Fresh Frozen Cancellous 1-4mm Graft 15ml Bone [id number] - [id number] [employer]OSOURCE Crushed Fresh Frozen Cancellous 1-4mm Graft 15ml Bone [id number] Allosource [id number] N/A 1 Implanted [employer]UV[employer] Screw Spinal Posterior Cervical Full Thread Solid Reline C 3.5x24mm Titanium [id number] [employer] Screw Spinal Posterior Cervical Full Thread Solid Reline C 3.5x24mm Titanium [id number] Nuvasive Inc N/A 2 Implanted [employer] Screw Spinal Posterior Cervical Solid Reline C 3.5x14mm [id number] - [id number] [employer] Screw Spinal Posterior Cervical Solid Reline C 3.5x14mm [id number] Nuvasive Inc N/A 5 Implanted [employer] Screw Spine Reline C Lock Open Non-Sterile Latex Free [id number] - [id number] [employer] Screw Spine Reline C Lock Open Non-Sterile Latex Free [id number] Nuv[employer] Inc N/A 9 Implanted [employer]UV[employer] Screw Spinal Posterior Cervical Full Thread Solid Reline C 4.0x20 Nuvasive Inc N/A 2 Implanted GLOBUS MEDICAL QUARTEX 4MM 65MM CURVE BERTIN SPINAL NONSTERILE LATEX FREE 1149.7565 - [id number] GLOBUS [employer]ICAL QUARTEX 4MM 65MM CURVE BERTIN SPINAL NONSTERILE LATEX FREE 1149.7565 [employer]obus [employer] N/A 1 Implanted GLOBUS MEDICAL Connector Spinal Curved Quartex 4.0x70mm Titanium 1149.7570 - [id number] GLOBUS MEDICAL Connector Spinal Curved Quartex 4.0x70mm Titanium 1149.7570 [employer] N/A 1 Implanted Specimens None. Counts Correct. Estimated Blood Loss 15 mL. Total IV Fluids Please see anesthesia records Complications None. Condition on Discharge Stable. Hans Rodriguez M.D. Canning Machine Operator of Orthopaedic Surgery Department of Orthopaedic Surgery [facility] [place], [place] Operative Report dictated by Hans Rodriguez M.D. on 09/20/23 using Fluency Direct. Production Control Analyst variances may occur. * Plan of Care [...] Progressing * Plan of Care - Mireya Mcdaniel, TYLER - 09/18/2023 7:49 PM CDT Clinical Goals [...] DVT; (+) superficial vein thrombus - 09/25: [place] and upright cspine Xrs completed - 09/26: BUE motor exam stable. Cont PT/OT - 09/28: Doing well, tolerating diet and activity with well controlled pain; [place] J in place; PMNR c/s for recs [...] Resident - Assisting Anesthesiologist: Júnior Velazquez MD PHYSICIAN VICE PRESIDENT: Morgan Duke III, CRNA Test Conductor: Irasema Palafox RN Test Conductor Relief: Mel Salazar RN Scrub Relief: Pool Londono RN Scrub: Bambi Rees [facility] Test Conductor: Cesia Cervantes RN DATE OF SURGERY : [...] Implant Name Type Inv. Item Serial No. Flat Examiner Lot No. LRB No. Used Action SYNTHES Nail Im Tibial Ti Tn Advanced [id number] 04.043.430S - [id number] SYNTHES Nail Im Tibial Ti Tn Advanced [id number] 04.043.430S Synthes I [id number] Left 1 Implanted SYNTHES Screw Bone Locking Cannulated Femoral Threaded 5.0x36mm 04.045.336S - [id number] SYNTHES Screw Bone Locking Cannulated Femoral Threaded 5.0x36mm 04.045.336S Synthes I Left 1 Implanted SYNTHES SCREW LOCKING IM NAIL 5MM 34MM 04.045.034 - [id number] SYNTHES SCREW LOCKING IM NAIL 5MM 34MM 04.045.034 Synthes I Left 2 Implanted SYNTHES 3.5mm 440mm Elastic Nail Intramedullary Titanium Pediatric 475.935 - [id number] SYNTHES 3.5mm 440mm Elastic Nail Intramedullary Titanium Pediatric 475.935 Synthes I Left 1 Implanted SYNTHES Screw Locking Threaded 5.0x44mm 04.045.344S - [id number] SYNTHES Screw Locking Threaded 5.0x44mm 04.045.344S Synthes [...] Critical Care Procedure Critical Care Performed by: Diogo Lee MD [...] examination under fluoroscopy SURGEON: Hammad Taylor M.D. BARREL HANDLER: Zoila Segura MD ([id number]); Otto Dotson MD [...] The distal interlocks were placed with perfect bear river technique. This was done under fluoroscopic guidance [...] in the ED Diogo Lee MD 09/16/23 0303 * ED Pre-Arrival Note - Frandy Renee RN - 09/16/2023 1:05 AM CDT Pre-Arrival Note Transfer [facility]. Patient fell Thursday at 4am, found [...] ED Urgent/IP Urgent 09/18/2023 7:27 PM CDT IT TRAINING SPECIALIST EVALUATE AND TREAT Routine 8:49 AM CDT [...] HOUR IP Routine 09/16/2023 3:21 PM CDT INTRAMEDULLARY NAIL - TIBIAL 09/16/2023 12:14 PM CDT Other closed fracture of distal end of left tibia, initial encounter Case Notes 24u [id number] CREATINE KINASE (CK), TOTAL STAT 09/16/2023 9:58 AM CDT [place] CRITICAL CARE ILL/INJURED PATIENT INIT 30-74 MIN [...] 12:50 PM CDT) COVID-19 RNA Negative Negative [facility] Nasopharyngeal 09/29/2023 12 :50 PM CDT 09/29/2023 1:33 PM CDT Narrative [facility] - 09/29/2023 2:09 PM CDT Is the patient experiencing any symptoms consistent with COVID (eg. Fever, cough, shortness of breath)?->No What is the reason for testing?->Screening for post-acute care placement ??Interpretive data: Synonyms for this test include: PCR and NAAT . ??This test is performed using the [employer] Xpert Xpress plus assay. This is a [...] . ??This test is performed using the [employer] Xpert Xpress plus assay. This is a [...] Interpretive data last revised September 11, 2021. us Penny S. Quintana-Lynne DRY HOUSE OPERATOR LAB MICROBIOLOGY - G ENERAL ORDERABLES Final Result [facility] Department [place] [address] BJ * XR Spine Cervical 2 or 3 [...] Middleton MD LAB BLOOD ORDERABLES Final Result [facility] Department [place] [address] * (ABNORMAL) Basic metabolic panel (09/25/2023 10:51 PM CDT) Sodium 137 135 - 145 mmol/L Potassium, pl 4.3 3.3 - 4.9 mmol/L [facility] Chloride 100 97 - 110 mmol/L [facility] CO2 30 22 - 32 mmol/L [facility] Anion gap 7 2 - 15 mmol/L [facility] BUN 12 6 - 25 mg/dL [facility] Creatinine 0.49(L) 0.60 - 1.10 mg/dL [facility] Glucose 102 70 - 199 mg/dL [facility] Comment: Interpretive Data Fasting glucose >/= [...] 2022. Calcium 8.5 8.5 - 10.3 mg/dL [facility] Blood 09/25/2023 10:5 1 PM CDT 09/26/2023 12:11 AM CDT Ibrahima Middleton MD LAB BLOOD ORDERABLES Final Result Performing Organization Address [facility] de Phone Number [facility] Department [place] [address] * Infection Prevention Clement auris PCR, surveillance Axilla/Groin (09/25/2023 6:26 PM CDT) Clement auris DNA Not Detected Not Detected [facility] Comment: Interpretive Data Testing performed by [facility] Infectious Disease [facility] using the Diasorin Liaison MDX Clement auris assay. ??This assay detects DNA from Clement auris using Real-Time PCR. ??This assay is laboratory developed and is not cleared by the [place] Food and Drug Administration. ??The performance characteristics have been verified by the [facility]. Interpretive data was last reviewed on 08/05/2023 Axilla/Groin 09/25/2023 6:26 PM CDT 09/25/2023 6:42 PM CDT Jacoby Nguyen MD LAB MICROBIOLOGY - GENERAL OR DERABLES Final Result Performing Organization Address [facility] Co de Phone Number [facility] Department [place] [address] [facility] * POCT glucose (09/25/2023 2:06 PM CDT) Glucose, POC 127 70 - 199 mg/dL Blood 09/25/2023 2:06 PM CDT 09/25/2023 2:06 PM CDT us Ibrahima Middleton MD LAB POCT ORDERABLES - DEVIC E Final Result Performing Organization Address City/State/[facility] Co de Phone Number [facility]AY [facility] Department [place] [address] * US Vein Duplex Upper Extremity Right Limited, Unilateral (09/25/2023 10:27 AM CDT) Anatomical Region Laterality Modality Vascular Right Ultrasound 09/25/2023 9:24 AM CDT Narrative 09/27/2023 8:50 PM CDT [facility] - Department of Vascular Surgery, Vascular Laboratory [address] [place] [address] Upper Extremity Venous Ultrasound Report Patient Name: AIDEE DOMÍNGUEZ : 1945 (78y 5m) Study Date: 09/25/2023 9:24:11 AM Gender: F Tech: DX Location: [id number] Ref Provider: IBRAHIMA MIDDLETON ?Quality: Adequate Order Provider: IBRAHIMA MIDDLETON PROCEDURES: Vascular Report: Venous Duplex imaging was performed in the right upper extremity. The internal jugular, subclavian and axillary veins were evaluated for patency, spontaneity and phasicity with Doppler, compression and augmentation maneuvers. The brachial, basilic and cephalic veins were also evaluated with compression maneuvers. INDICATIONS: Localized edema. FINDINGS: Performing Oil Expeller Operator: Erick Garay RVT. Right: Unable to [...] above. Electronically Signed By: Paul Moran MD [facility] 2023-09-27 20:49:52 CDT Procedure Note Paul Moran MD - 09/27/2023 [facility] - Department of Vascular Surgery,Vascular Laboratory [address] [place] [address] Upper Extremity Venous Ultrasound Report Patient Name: AIDEE DOMÍNGUEZ : 1945 (78y 5m) Study Date: 09/25/2023 9:24:11 AM Gender: F Tech: DX Location: [id number] Ref Provider: IBRAHIMA MIDDLETON Quality: Adequate Order Provider: IBRAHIMA MIDDLETON PROCEDURES: Vascular Report: Venous Duplex imaging was performed in the right upper extremity. Theinternal jugular, subclavian and axillary veins were evaluated for patency, spontaneity andphasicity with Doppler, compression and augmentation maneuvers. The brachial, basilic andcephalic veins were also evaluated with compression maneuvers. INDICATIONS: Localized edema. FINDINGS: Performing Oil Expeller Operator: Erick Garay RVT. Right: Unable to [...] above. Electronically Signed By: Paul Moran MD [facility] 2023-09-27 20:49:52 CDT Ibrahima Middleton MD IMG US PROCEDURES Final Res ult * POCT glucose (09/25/2023 7:25 AM CDT) Glucose, POC 127 70 - 199 mg/dL Blood 09/25/2023 7:25 AM CDT 09/25/2023 7:25 AM CDT Ibrahima Middleton MD LAB POCT ORDERABLES - DEVIC E Final Result [facility] Department [place] [address] * XR Chest 1 View (09/24/2023 10:45 [...] it. Electronically signed by: Aquilino Person M.D. us Ibrahima Middleton MD IMG XR PROCEDURES [...] BLOOD ORDERABLES Final Result Performing Organization Address [facility] Co de Phone Number [facility] [place] [place] [address] * Phosphorus (09/24/2023 9:16 PM CDT) Pathologist [facility] Phosphorus, pl 3.3 2.3 - 4.5 mg/dL Blood 09/24/2023 9:16 PM CDT 09/24/2023 9:46 PM CDT Ibrahima Middleton MD LAB BLOOD ORDERABLES Final Result Performing Organization Address [facility] [place] [address] * Magnesium (09/24/2023 9:16 PM CDT) [facility] Magnesium 1.9 1.4 - 2.5 mg/dL Blood 09/24/2023 9:16 PM CDT 09/24/2023 9:46 PM CDT Ibrahima Middleton MD LAB BLOOD ORDERABLES Final Result Performing Organization Address [facility] [place] [address] * (ABNORMAL) CBC without differential (09/24/2023 9:16 PM CDT) [facility] WBC 12.2(H) 3.8 - 9.9 K/cumm Hgb 9.2(L) 11.9 - 15.5 g/dL [facility] Hct 29.1(L) 35.6 - 45.5 % [facility] Plt 521(H) 150 - 400 K/cumm [facility] MPV 9.7 9.1 - 12.3 fL [facility] RBC 3.12(L) 3.90 - 5.20 M/cumm [facility] MCV 93.3 81.3 - 96.4 fL [facility] MCH 29.5 27.1 - 33.3 pg [facility] MCHC 31.6(L) 32.3 - 35.7 g/dL [facility] RDW CV 14.0 11.1 - 14.9 % [facility] RDW SD 47.3 35.7 - 48.1 fL [facility] NRBC abs 0.00 0.00 - 0.01 K/cumm [facility] Blood 09/24/2023 9:16 PM CDT 09/24/2023 9:53 PM CDT Ibrahima Middleton MD LAB BLOOD ORDERABLES Final Result [facility] Department [place] [address] * (ABNORMAL) Basic metabolic panel (09/24/2023 9:16 PM CDT) Sodium 140 135 - 145 mmol/L Potassium, pl 4.5 3.3 - 4.9 mmol/L [facility] Chloride 104 97 - 110 mmol/L [facility] CO2 29 22 - 32 mmol/L [facility] Anion gap 7 2 - 15 mmol/L [facility] BUN 10 6 - 25 mg/dL [facility] Creatinine 0.46(L) 0.60 - 1.10 mg/dL [facility] Glucose 125 70 - 199 mg/dL [facility] Comment: Interpretive Data Fasting glucose >/= [...] Calcium 8.5 8.5 - 10.3 mg/dL [facility] Blood 09/24/2023 9:16 PM CDT 09/24/2023 9:46 PM CDT us Ibrahima Middleton MD LAB BLOOD ORDERABLES Final Result [facility] Department [place] [address] * XR Spine Cervical 2 or 3 [...] plan with the ICU team and other medical/surgical consultant staff, making frequent assessments and decisions [...] Result * eGFR (09/23/2023 4:04 PM CDT) eGFR >90 >=60 mL/min/1. 73 [...] BLOOD ORDERABLES Final Result Performing Organization Address [facility] de Phone Number [facility] [place] [place] [address] * Phosphorus (09/23/2023 4:04 PM CDT) Phosphorus, pl 3.8 2.3 - 4.5 mg/dL Blood 09/23/2023 4:04 PM CDT 09/23/2023 4:28 PM CDT Ibrahima Middleton MD LAB BLOOD ORDERABLES Final Result Performing Organization Address [facility] de Phone Number [facility] Department [place] [address] * Magnesium (09/23/2023 4:04 PM CDT) [facility] Magnesium 1.9 1.4 - 2.5 mg/dL Blood 09/23/2023 4:04 PM CDT 09/23/2023 4:28 PM CDT Ibrahima Middleton MD LAB BLOOD ORDERABLES Final Result [facility] [place] [address] * (ABNORMAL) CBC without differential (09/23/2023 4:04 PM CDT) [facility] WBC 13.9(H) 3.8 - 9.9 K/cumm Hgb 9.5(L) 11.9 - 15.5 g/dL [facility] Hct 30.3(L) 35.6 - 45.5 % [facility] Plt 425(H) 150 - 400 K/cumm [facility] MPV 10.0 9.1 - 12.3 fL [facility] RBC 3.25(L) 3.90 - 5.20 M/cumm [facility] MCV 93.2 81.3 - 96.4 fL [facility] MCH 29.2 27.1 - 33.3 pg [facility] MCHC 31.4(L) 32.3 - 35.7 g/dL [facility] RDW CV 13.8 11.1 - 14.9 % [facility] RDW SD 46.5 35.7 - 48.1 fL [facility] NRBC abs 0.00 0.00 - 0.01 K/cumm [facility] Blood 09/23/2023 4:04 PM CDT 09/23/2023 4:28 PM CDT Ibrahima Middleton MD LAB BLOOD ORDERABLES Final Result [facility] Department [place] [address] * (ABNORMAL) Basic metabolic panel (09/23/2023 4:04 PM CDT) [facility] Sodium 141 135 - 145 mmol/L Potassium, pl 4.5 3.3 - 4.9 mmol/L [facility] Chloride 104 97 - 110 mmol/L [facility] CO2 32 22 - 32 mmol/L [facility] Anion gap 5 2 - 15 mmol/L [facility] BUN 10 6 - 25 mg/dL [facility] Creatinine 0.45(L) 0.60 - 1.10 mg/dL [facility] Glucose 121 70 - 199 mg/dL [facility] Comment: Interpretive Data Fasting glucose >/= [...] 2022. Calcium 8.4(L) 8.5 - 10.3 mg/dL [facility] Blood 09/23/2023 4:04 PM CDT 09/23/2023 4:28 PM CDT Ibrahima Middleton MD LAB BLOOD ORDERABLES Final Result [facility] Department [place] [address] * eGFR (09/22/2023 8:04 PM CDT) [facility] eGFR >90 >=60 mL/min/1. 73 m2 [...] BLOOD ORDERABLES Final Result Performing Organization Address City/State/[facility] de Phone Number [facility] Department [place] [address] * Type and screen (09/22/2023 8:04 PM CDT) ABO Rh O Positive Alejandrina, indirect Negative [facility] Blood 09/22/2023 8:04 PM CDT 09/22/2023 8:14 PM CDT Narrative [facility] - 09/22/2023 9:13 PM CDT Has the patient had Daratumumab or Isatuximab in the past 6 months?->Unknown us Sterling Patrick MD LAB BLOOD BANK TEST OR DERABLES Final Result [facility] Department [place] [address] * (ABNORMAL) Phosphorus (09/22/2023 8:04 PM CDT) [facility] Phosphorus, pl 1.9(L) 2.3 - 4.5 mg/dL Blood 09/22/2023 8:04 PM CDT 09/22/2023 8:20 PM CDT Ibrahima Middleton MD LAB BLOOD ORDERABLES Final Result Performing Organization Address [facility] Co de Phone Number [facility] [place] [address] * Magnesium (09/22/2023 8:04 PM CDT) [facility] Magnesium 1.8 1.4 - 2.5 mg/dL Blood 09/22/2023 8:04 PM CDT 09/22/2023 8:20 PM CDT Ibrahima Middleton MD LAB BLOOD ORDERABLES Final Result Performing Organization Address [facility] de Phone Number [facility] Department [place] [address] * (ABNORMAL) CBC without differential (09/22/2023 8:04 PM CDT) [facility] WBC 10.6(H) 3.8 - 9.9 K/cumm Hgb 8.4(L) 11.9 - 15.5 g/dL [facility] Hct 27.3(L) 35.6 - 45.5 % [facility] Plt 352 150 - 400 K/cumm [facility] MPV 10.0 9.1 - 12.3 fL [facility] RBC 2.91(L) 3.90 - 5.20 M/cumm [facility] MCV 93.8 81.3 - 96.4 fL [facility] MCH 28.9 27.1 - 33.3 pg [facility] MCHC 30.8(L) 32.3 - 35.7 g/dL [facility] RDW CV 13.7 11.1 - 14.9 % [facility] RDW SD 46.5 35.7 - 48.1 fL [facility] NRBC abs 0.00 0.00 - 0.01 K/cumm [facility] Blood 09/22/2023 8:04 PM CDT 09/22/2023 8:20 PM CDT us Ibrahima Middleton MD LAB BLOOD ORDERABLES Final Result [facility] Department [place] [address] * (ABNORMAL) Basic metabolic panel (09/22/2023 8:04 PM CDT) [facility] Sodium 138 135 - 145 mmol/L Potassium, pl 4.5 3.3 - 4.9 mmol/L [facility] Chloride 102 97 - 110 mmol/L [facility] CO2 30 22 - 32 mmol/L [facility] Anion gap 6 2 - 15 mmol/L [facility] BUN 9 6 - 25 mg/dL [facility] Creatinine 0.42(L) 0.60 - 1.10 mg/dL [facility] Glucose 135 70 - 199 mg/dL [facility] Comment: Interpretive Data Fasting glucose >/= [...] 2022. Calcium 8.0(L) 8.5 - 10.3 mg/dL [facility] Blood 09/22/2023 8:04 PM CDT 09/22/2023 8:20 PM CDT us Ibrahima Middleton MD LAB BLOOD ORDERABLES Final Result [facility] Department [place] [address] * Critical Care (09/22/2023 7:39 PM CDT) [...] plan with the ICU team and other medical/surgical consultant staff, making frequent assessments and decisions [...] 7:16 AM CDT 09/22/2023 7:16 AM CDT Ibrahima Middleton MD LAB POCT ORDERABLES - DEVIC E Final Result Performing Organization Address [facility] de Phone Number [facility] [place] [place] [address] * POCT glucose (09/22/2023 3:23 AM CDT) Glucose, POC 104 70 - 199 mg/dL Blood 09/22/2023 3:23 AM CDT 09/22/2023 3:23 AM CDT Ibrahima Middleton MD LAB POCT ORDERABLES - DEVIC E Final Result Performing Organization Address [facility] de Phone Number [facility] [place] [place] [address] * POCT glucose (09/21/2023 11:34 PM CDT) Pathologist [facility] Glucose, POC 115 70 - 199 mg/dL Blood 09/21/2023 11:3 4 PM CDT 09/21/2023 11:34 PM CDT Ibrahima Middleton MD LAB POCT ORDERABLES - DEVIC E Final Result Performing Organization Address [facility] de Phone Number [facility] [place] [place] [address] * eGFR (09/21/2023 8:51 PM CDT) Pathologist [facility] eGFR >90 >=60 mL/min/1. 73 m2 Comment: [...] BLOOD ORDERABLES Final Result Performing Organization Address [facility] Co de Phone Number [facility] [place] [place] [address] * Phosphorus (09/21/2023 8:51 PM CDT) Phosphorus, pl 2.5 2.3 - 4.5 mg/dL Blood 09/21/2023 8:51 PM CDT 09/21/2023 9:41 PM CDT Ibrahima Middleton MD LAB BLOOD ORDERABLES Final Result Performing Organization Address [facility] Co de Phone Number [facility] [place] [place] [address] * Magnesium (09/21/2023 8:51 PM CDT) [facility] Magnesium 1.8 1.4 - 2.5 mg/dL Blood 09/21/2023 8:51 PM CDT 09/21/2023 9:41 PM CDT Ibrahima Middleton MD LAB BLOOD ORDERABLES Final Result Performing Organization Address [facility]/ZIP Co de Phone Number [facility] Department [place] [place] [address] * (ABNORMAL) CBC without differential (09/21/2023 8:51 PM CDT) [facility] WBC 12.3(H) 3.8 - 9.9 K/cumm Hgb 9.1(L) 11.9 - 15.5 g/dL [facility] Hct 28.1(L) 35.6 - 45.5 % [facility] Plt 348 150 - 400 K/cumm [facility] [facility] MPV 10.4 9.1 - 12.3 fL [facility] RBC 3.04(L) 3.90 - 5.20 M/cumm [facility] MCV 92.4 81.3 - 96.4 fL [facility] MCH 29.9 27.1 - 33.3 pg [facility] MCHC 32.4 32.3 - 35.7 g/dL [facility] RDW CV 13.6 11.1 - 14.9 % [facility] RDW SD 45.5 35.7 - 48.1 fL [facility] NRBC abs 0.00 0.00 - 0.01 K/cumm [facility] Blood 09/21/2023 8:51 PM CDT 09/21/2023 9:42 PM CDT Ibrahima Middleton MD LAB BLOOD ORDERABLES Final Result Performing Organization Address City/[facility]/ZIP Co de Phone Number [facility] [place] [place] [address] * (ABNORMAL) Basic metabolic panel (09/21/2023 8:51 PM CDT) [facility] Sodium 139 135 - 145 mmol/L Potassium, pl 4.3 3.3 - 4.9 mmol/L [facility] Chloride 105 97 - 110 mmol/L [facility] CO2 29 22 - 32 mmol/L [facility] Anion gap 5 2 - 15 mmol/L [facility] BUN 6 6 - 25 mg/dL [facility] Creatinine 0.37(L) 0.60 - 1.10 mg/dL [facility] Glucose 143 70 - 199 mg/dL [facility] Comment: Interpretive Data Fasting glucose >/= [...] 2022. Calcium 7.8(L) 8.5 - 10.3 mg/dL [facility] Blood 09/21/2023 8:51 PM CDT 09/21/2023 9:41 PM CDT us Ibrahima Middleton MD LAB BLOOD ORDERABLES Final Result [facility] Department [place] [address] * Critical Care (09/21/2023 8:02 PM CDT) [...] plan with the ICU team and other medical/surgical consultant staff, making frequent assessments and decisions [...] bedside monitors, laboratory results, and imaging us Malyl Roberts MD IN CLINIC/BEDSIDE ORDERABLES F inal Result * POCT glucose (09/21/2023 7:59 PM CDT) Glucose, POC 142 70 - 199 mg/dL Blood 09/21/2023 7:59 PM CDT 09/21/2023 7:59 PM CDT us Ibrahima Middleton MD LAB POCT ORDERABLES - DEVIC E Final Result [facility] [place] [address] * POCT glucose (09/21/2023 3:43 PM CDT) Glucose, POC 129 70 - 199 mg/dL Blood 09/21/2023 3:43 PM CDT 09/21/2023 3:43 PM CDT Ibrahima Middleton MD LAB POCT ORDERABLES - DEVIC E Final Result Performing Organization Address [facility]/ZIP Co de Phone Number FAY WILKINS Anuradha [facility] Department [place] [address] * Blood culture Blood Arm, right (09/21/2023 12:29 PM CDT) Report Final Report: No growth Blood (Arm, right) 09/21/2023 12:29 PM CDT 09/21/2023 1:53 PM CDT Narrative FAY [facility] - 09/25/2023 4:00 PM CDT Collection->Peripheral 1. [...] organism identification may be performed using the BiBCOMigene Gram-Positive Blood Culture Assay. This assay detects microbial DNA in positive blood culture broth via hybridization of target DNA to capture oligonucleotides on a microarray. This assay has been cleared by the [place] Food and Drug Administration and its performance characteristics have been verified by the [facility] Microbiology Laboratory. 5. ?For questions about this culture, contact the Microbiology Laboratory at [phone]. Interpretive data was last revised on 2019. Ibrahima Middleton MD LAB MICROBIOLOGY - GENERAL ORDERABLES Final Result Performing Organization Address [facility]/ZIP Co de Phone Number FAY Ling [facility] Department [place] [address] * Blood culture Blood (09/21/2023 12:19 PM [...] organism identification may be performed using the BiBCOMigene Gram-Positive Blood Culture Assay. This assay detects microbial DNA in positive blood culture broth via hybridization of target DNA to capture oligonucleotides on a microarray. This assay has been cleared by the [place] Food and Drug Administration and its performance characteristics have been verified by the [facility]. 5. ?For questions about this culture, contact the Microbiology Laboratory at [phone]. Interpretive data was last revised on 2019. Ibrahima Middleton MD LAB MICROBIOLOGY - GENERAL ORDERABLES Final Result FAY WILKINS Anuradha [facility] Department [place] [address] * POCT glucose (09/21/2023 11:36 AM CDT) Glucose, POC 128 70 - 199 mg/dL Blood 09/21/2023 11:3 6 AM CDT 09/21/2023 11:36 AM CDT Ibrahima Middleton MD LAB POCT ORDERABLES - DEVIC E Final Result FAY [facility] Department [place] [address] * XR Chest 1 View (09/21/2023 10:57 [...] Clement auris DNA Not Detected Not Detected [facility] Comment: Interpretive Data Testing performed by [facility] Molecular Infectious Disease Laboratory using the QuickoL[employer] MDX Clement auris assay. ??This assay detects DNA from Clement auris using Real-Time PCR. ??This assay is laboratory developed and is not cleared by the [facility] Food and Drug Administration. ??The performance characteristics have been verified by the [facility] Infectious Disease Laboratory. Interpretive data was last reviewed on 08/05/2023 Axilla/Groin 09/21/2023 9:51 AM CDT 09/21/2023 10:10 AM CDT Jacoby Nguyen MD LAB MICROBIOLOGY - GENERAL OR DERABLES Final Result Performing Organization Address City/[facility]/ZIP Co de Phone Number [facility] [place] [place] [address] [facility] * POCT glucose (09/21/2023 7:34 AM CDT) Glucose, POC 110 70 - 199 mg/dL Blood 09/21/2023 7:34 AM CDT 09/21/2023 7:34 AM CDT Ibrahima Middleton MD LAB POCT ORDERABLES - DEVIC E Final Result [facility] [place] [address] * Critical Care (09/21/2023 6:43 AM CDT) Narrative Armijo, Thoi René, MD - 09/21/2023 6:43 AM CDT Noel Armijo MD ? 10/12/2023 ??1:57 AM Critical Care Performed by: Noel Armijo MD Authorized by: Noel Armijo MD ?? CRITICAL CARE: ??Team: ??SICU RED [...] plan with the ICU team and other medical/surgical consultant staff, making frequent assessments and decisions [...] spent time documenting in the medical record Noel Armijo MD IN CLINIC/BEDSIDE ORDERABLES Fi nal Result * POCT glucose (09/21/2023 3:47 AM CDT) Glucose, POC 107 70 - 199 mg/dL Blood 09/21/2023 3:47 AM CDT 09/21/2023 3:47 AM CDT Ibrahima Middleton MD LAB POCT ORDERABLES - DEVIC E Final Result [facility] Department [place] [address] * Critical Care (09/21/2023 2:13 AM CDT) Narrative Mally Roberts MD - 09/21/2023 2:13 AM CDT Mally [...] plan with the ICU team and other medical/surgical consultant staff, making frequent assessments and decisions [...] 6 AM CDT 09/21/2023 12:26 AM CDT us Ibrahima Middleton MD LAB POCT ORDERABLES - DEVIC E Final Result Performing Organization Address [facility] Phone Number [facility] Department [place] [address] * eGFR (09/20/2023 8:27 PM CDT) eGFR >90 >=60 mL/min/1. 73 [...] BLOOD ORDERABLES Final Result Performing Organization Address City/State/[facility] Co de Phone Number [facility] [place] [address] * Phosphorus (09/20/2023 8:27 PM CDT) [facility] Phosphorus, pl 3.5 2.3 - 4.5 mg/dL Blood 09/20/2023 8:27 PM CDT 09/20/2023 8:46 PM CDT Ibrahima Middleton MD LAB BLOOD ORDERABLES Final Result Performing Organization Address City/[facility] Co de Phone Number [facility] [place] [address] * Magnesium (09/20/2023 8:27 PM CDT) [facility] Magnesium 2.4 1.4 - 2.5 mg/dL Blood 09/20/2023 8:27 PM CDT 09/20/2023 8:46 PM CDT Ibrahima Middleton MD LAB BLOOD ORDERABLES Final Result Performing Organization Address [facility] de Phone Number [facility] [place] [address] * (ABNORMAL) CBC without differential (09/20/2023 8:27 PM CDT) [facility] WBC 10.7(H) 3.8 - 9.9 K/cumm Hgb 9.1(L) 11.9 - 15.5 g/dL [facility] Hct 28.2(L) 35.6 - 45.5 % [facility] Plt 270 150 - 400 K/cumm [facility] MPV 10.3 9.1 - 12.3 fL [facility] RBC 3.08(L) 3.90 - 5.20 M/cumm [facility] MCV 91.6 81.3 - 96.4 fL [facility] MCH 29.5 27.1 - 33.3 pg [facility] MCHC 32.3 32.3 - 35.7 g/dL [facility] RDW CV 13.2 11.1 - 14.9 % [facility] RDW SD 44.2 35.7 - 48.1 fL [facility] NRBC abs 0.00 0.00 - 0.01 K/cumm [facility] Blood 09/20/2023 8:27 PM CDT 09/20/2023 8:45 PM CDT us Ibrahima Middleton MD LAB BLOOD ORDERABLES Final Result [facility] Department [place] [address] * (ABNORMAL) Basic metabolic panel (09/20/2023 8:27 PM CDT) Pathologist [facility] Sodium 137 135 - 145 mmol/L Potassium, pl 4.2 3.3 - 4.9 mmol/L [facility] Chloride 103 97 - 110 mmol/L [facility] CO2 28 22 - 32 mmol/L [facility] Anion gap 6 2 - 15 mmol/L [facility] BUN 7 6 - 25 mg/dL [facility] Creatinine 0.36(L) 0.60 - 1.10 mg/dL [facility] Glucose 125 70 - 199 mg/dL [facility] Comment: Interpretive Data Fasting glucose >/= [...] 2022. Calcium 7.7(L) 8.5 - 10.3 mg/dL [facility] Blood 09/20/2023 8:27 PM CDT 09/20/2023 8:46 PM CDT Ibrahima Middleton MD LAB BLOOD ORDERABLES Final Result Performing Organization Address City/[facility] Co de Phone Number [facility] [place] [address] * POCT glucose (09/20/2023 7:44 PM CDT) Glucose, POC 122 70 - 199 mg/dL Blood 09/20/2023 7:44 PM CDT 09/20/2023 7:44 PM CDT Ibrahima Middleton MD LAB POCT ORDERABLES - DEVIC E Final Result Performing Organization Address [facility] de Phone Number [facility] [place] [address] * Infection Prevention Clement auris PCR, surveillance Axilla/Groin (09/20/2023 4:29 PM CDT) Pathologist [facility] Clement auris DNA Not Detected Not Detected [facility] Comment: Interpretive Data Testing performed by [facility] Molecular Infectious Disease Laboratory using the [employer] MDX Clement auris assay. ??This assay detects DNA from Clement auris using Real-Time PCR. ??This assay is laboratory developed and is not cleared by the [facility] Food and Drug Administration. ??The performance characteristics have been verified by the [facility] Molecular Infectious Disease Laboratory. Interpretive data was last reviewed on 08/05/2023 Axilla/Groin 09/20/2023 4:29 PM CDT 09/20/2023 4:48 PM CDT Jacoby Nguyen MD LAB MICROBIOLOGY - GENERAL OR DERABLES Final Result Performing Organization Address [facility] Co de Phone Number [facility] [place] [address] [facility] * POCT glucose (09/20/2023 4:00 PM CDT) Glucose, POC 116 70 - 199 mg/dL Blood 09/20/2023 4:00 PM CDT 09/20/2023 4:00 PM CDT us Ibrahima Middleton MD LAB POCT ORDERABLES - DEVIC E Final Result FAY [facility] Department [place] [address] * eGFR (09/20/2023 3:34 PM CDT) eGFR [...] Middleton MD LAB BLOOD ORDERABLES Final Result [facility] [place] [address] * (ABNORMAL) CBC without differential (09/20/2023 3:34 PM CDT) Pathologist [facility] WBC 9.9 3.8 - 9.9 K/cumm Hgb 9.8(L) 11.9 - 15.5 g/dL [facility] Hct 30.7(L) 35.6 - 45.5 % [facility] Plt 277 150 - 400 K/cumm [facility] MPV 10.2 9.1 - 12.3 fL [facility] RBC 3.35(L) 3.90 - 5.20 M/cumm [facility] MCV 91.6 81.3 - 96.4 fL [facility] MCH 29.3 27.1 - 33.3 pg [facility] MCHC 31.9(L) 32.3 - 35.7 g/dL [facility] RDW CV 13.3 11.1 - 14.9 % [facility] RDW SD 44.0 35.7 - 48.1 fL [facility] NRBC abs 0.00 0.00 - 0.01 K/cumm [facility] Blood 09/20/2023 3:34 PM CDT 09/20/2023 3:50 PM CDT Ibrahima Middleton MD LAB BLOOD ORDERABLES Final Result [facility] [place] [place] [address] * Phosphorus (09/20/2023 3:34 PM CDT) Pathologist [facility] Phosphorus, pl 3.3 2.3 - 4.5 mg/dL Blood 09/20/2023 3:34 PM CDT 09/20/2023 3:50 PM CDT Ibrahima Middleton MD LAB BLOOD ORDERABLES Final Result Performing Organization Address City/[facility]/ZIP Co de Phone Number [facility] [place] [address] * Magnesium (09/20/2023 3:34 PM CDT) Pathologist [facility] Magnesium 1.5 1.4 - 2.5 mg/dL Blood 09/20/2023 3:34 PM CDT 09/20/2023 3:50 PM CDT Ibrahima Middleton MD LAB BLOOD ORDERABLES Final Result Performing Organization Address [facility] de Phone Number [facility] [place] [address] * (ABNORMAL) Basic metabolic panel (09/20/2023 3:34 PM CDT) [facility] Sodium 140 135 - 145 mmol/L Potassium, pl 3.7 3.3 - 4.9 mmol/L [facility] Chloride 102 97 - 110 mmol/L [facility] CO2 27 22 - 32 mmol/L [facility] Anion gap 11 2 - 15 mmol/L [facility] BUN 7 6 - 25 mg/dL [facility] Creatinine 0.35(L) 0.60 - 1.10 mg/dL [facility] Glucose 136 70 - 199 mg/dL [facility] Comment: Interpretive Data Fasting glucose >/= [...] 2022. Calcium 7.9(L) 8.5 - 10.3 mg/dL [facility] Blood 09/20/2023 3:34 PM CDT 09/20/2023 3:50 PM CDT us Ibrahima Middleton MD LAB BLOOD ORDERABLES Final Result [facility] Department [place] [address] * FL Fluoroscopy < 1 Hour (09/20/2023 1:05 PM CDT) Narrative [email or web address] - 09/20/2023 1:05 PM CDT The images from this study are not interpreted by Radiology. ??Please refer to the physician's procedure / OR operative note. us Hans Rodriguez MD IMG FLUOROSCOPY PROCEDU RES Final Result Performing Organization Address City/[facility]/ZIP Co de Phone Number [email or web address] * (ABNORMAL) POC Blood Gas and Chemistries, Arterial - (09/20/2023 9:52 AM CDT) pH, Art POC 7.53(H) 7.35 - 7.45 pCO2, Art POC 41 35 - 45 mmHg [facility] pO2, Art POC 401(H) 83 - 108 mmHg [facility] Na, POC 137 135 - 145 mmol/L [facility] K POC 3.6 3.3 - 4.9 mmol/L [facility] Comment: Interpretive Data Not all point of care methods assess for hemolysis. Confirm with instrument and retest K+ if not consistent with clinical signs and symptoms. Current Interpretive Data was last revised on 2023. Cl, POC 108 97 - 110 mmol/L [facility] Ionized Ca, POC 4.64 4.50 - 5.10 mg/dL [facility] Glucose, POC 137 70 - 199 mg/dL [facility] Lactate, POC 1.2 0.7 - 2.2 mmol/L [facility] SO2 (cee) arterial 100(H) 90 - 95 % [facility] Base excess, POC 10.6 mmol/L [facility] HCO3, Art POC 34(H) 20 - 30 mmol/L [facility] Hct, POC 28.0(L) 36.3 - 45.3 % [facility] O2 Sat, Art POC (Calc) 100 % [facility] Total Hb, POC 9.4(L) 11.9 - 15.5 g/dL [facility] Blood 09/20/2023 9:52 AM CDT 09/20/2023 9:52 AM CDT Ibrahima Middleton MD LAB POCT ORDERABLES - DEVIC E Final Result Performing Organization Address [facility] Co de Phone Number [facility] [place] [address] * (ABNORMAL) Protime-INR (09/19/2023 11:58 PM CDT) Pathologist [facility] PT 14.4(H) 10.3 - 13.7 sec INR 1.26(H) 0.90 - 1.20 [facility] Comment: Interpretive data Oral anticoagulant therapeutic ranges: Venous thromboembolism prophylaxis or treatment: 2.0-3.0 CARDIOLOGY Standard range: 2.0-3.0 High-intensity range: 2.5-3.5 Refer to indication-specific guidelines for appropriate target ranges for prosthetic heart valve replacement. Current interpretive data was last revised on 2019. Blood 09/19/2023 11:5 8 PM CDT 09/20/2023 12:40 AM CDT Ibrahima Middleton MD LAB BLOOD ORDERABLES Final Result Performing Organization Address City/[facility]/ZIP Co de Phone Number [facility] [place] [place] [address] * eGFR (09/19/2023 11:58 PM CDT) eGFR [...] 8 PM CDT 09/20/2023 12:44 AM CDT us Ibrahima Middleton MD LAB BLOOD ORDERABLES Final Result Performing Organization Address City/State/[facility] Phone Number [facility] Department [place] [address] * aPTT (09/19/2023 11:58 PM CDT) aPTT [...] BLOOD ORDERABLES Final Result Performing Organization Address [facility] [place] [address] * Type and screen (09/19/2023 11:58 PM CDT) Pathologist [facility] Alejandrina, indirect Negative ABO Rh O Positive [facility] Blood 09/19/2023 11:5 8 PM CDT 09/20/2023 12:55 AM CDT Narrative [facility] - 09/20/2023 2:02 AM CDT Has the patient had Daratumumab or Isatuximab in the past 6 months?->Unknown Ibrahima Middleton MD LAB BLOOD BANK TEST ORDERAB LES Final Result Performing Organization Address [facility] de Phone Number [facility] [place] [address] * (ABNORMAL) Basic metabolic panel (09/19/2023 11:58 PM CDT) [facility] Sodium 141 135 - 145 mmol/L Potassium, pl 3.6 3.3 - 4.9 mmol/L [facility] Chloride 103 97 - 110 mmol/L [facility] CO2 29 22 - 32 mmol/L [facility] Anion gap 9 2 - 15 mmol/L [facility] BUN 8 6 - 25 mg/dL [facility] Creatinine 0.44(L) 0.60 - 1.10 mg/dL [facility] Glucose 125 70 - 199 mg/dL [facility] Comment: Interpretive Data Fasting glucose >/= [...] 2022. Calcium 8.4(L) 8.5 - 10.3 mg/dL [facility] Blood 09/19/2023 11:5 8 PM CDT 09/20/2023 12:44 AM CDT Ibrahima Middleton MD LAB BLOOD ORDERABLES Final Result Performing Organization Address City/[facility] Co de Phone Number [facility] [place] [place] [address] * Magnesium (09/19/2023 11:58 PM CDT) [facility] Magnesium 1.6 1.4 - 2.5 mg/dL Blood 09/19/2023 11:5 8 PM CDT 09/20/2023 12:44 AM CDT Ibrahima Middleton MD LAB BLOOD ORDERABLES Final Result Performing Organization Address City/[facility] de Phone Number [facility] [place] [place] [address] * (ABNORMAL) CBC without differential (09/19/2023 11:58 PM CDT) [facility] WBC 9.5 3.8 - 9.9 K/cumm Hgb 9.8(L) 11.9 - 15.5 g/dL [facility] Hct 30.8(L) 35.6 - 45.5 % [facility] Plt 270 150 - 400 K/cumm [facility] MPV 10.7 9.1 - 12.3 fL [facility] RBC 3.37(L) 3.90 - 5.20 M/cumm [facility] MCV 91.4 81.3 - 96.4 fL [facility] MCH 29.1 27.1 - 33.3 pg [facility] MCHC 31.8(L) 32.3 - 35.7 g/dL [facility] RDW CV 13.2 11.1 - 14.9 % [facility] RDW SD 43.8 35.7 - 48.1 fL [facility] NRBC abs 0.00 0.00 - 0.01 K/cumm [facility] Blood 09/19/2023 11:5 8 PM CDT 09/20/2023 12:45 AM CDT Ibrahima Middleton MD LAB BLOOD ORDERABLES Final Result Performing Organization Address City/[facility] Co de Phone Number [facility] [place] [address] * Phosphorus (09/19/2023 11:58 PM CDT) Pathologist [facility] Phosphorus, pl 2.7 2.3 - 4.5 mg/dL Blood 09/19/2023 11:5 8 PM CDT 09/20/2023 12:44 AM CDT Ibrahima Middleton MD LAB BLOOD ORDERABLES Final Result Performing Organization Address [facility] de Phone Number [facility] [place] [place] [address] * CT Head WO Contrast (09/19/2023 10:48 [...] BLOOD ORDERABLES Final Result Performing Organization Address City/State/[facility] Co [place] Phone Number [facility] Department [place] [address] * (ABNORMAL) Basic metabolic panel (09/19/2023 1:35 AM CDT) Sodium 144 135 - 145 mmol/L Potassium, pl 3.7 3.3 - 4.9 mmol/L [facility] Chloride 107 97 - 110 mmol/L [facility] CO2 29 22 - 32 mmol/L [facility] Anion gap 8 2 - 15 mmol/L [facility] BUN 6 6 - 25 mg/dL [facility] Creatinine 0.41(L) 0.60 - 1.10 mg/dL [facility] Glucose 87 70 - 199 mg/dL [facility] Comment: Interpretive Data Fasting glucose >/= [...] 2022. Calcium 8.2(L) 8.5 - 10.3 mg/dL [facility] Blood 09/19/2023 1:35 AM CDT 09/19/2023 1:53 AM CDT Ibrahima Middleton MD LAB BLOOD ORDERABLES Final Result Performing Organization Address City/[facility] Co de Phone Number [facility] Department [place] [place] [address] * Magnesium (09/19/2023 1:35 AM CDT) Pathologist [facility] Magnesium 1.7 1.4 - 2.5 mg/dL Blood 09/19/2023 1:35 AM CDT 09/19/2023 1:53 AM CDT Ibrahima Middleton MD LAB BLOOD ORDERABLES Final Result Performing Organization Address City/[facility] Co de Phone Number [facility] [place] [place] [address] * (ABNORMAL) CBC without differential (09/19/2023 1:35 AM CDT) Pathologist [facility] WBC 8.8 3.8 - 9.9 K/cumm Hgb 9.3(L) 11.9 - 15.5 g/dL [facility] Hct 28.6(L) 35.6 - 45.5 % [facility] Plt 217 150 - 400 K/cumm [facility] MPV 10.4 9.1 - 12.3 fL [facility] RBC 3.10(L) 3.90 - 5.20 M/cumm [facility] MCV 92.3 81.3 - 96.4 fL [facility] MCH 30.0 27.1 - 33.3 pg [facility] MCHC 32.5 32.3 - 35.7 g/dL [facility] RDW CV 13.2 11.1 - 14.9 % [facility] RDW SD 44.3 35.7 - 48.1 fL [facility] NRBC abs 0.00 0.00 - 0.01 K/cumm [facility] Blood 09/19/2023 1:35 AM CDT 09/19/2023 1:54 AM CDT Ibrahima Middleton MD LAB BLOOD ORDERABLES Final Result [facility] Department [place] [address] * (ABNORMAL) Phosphorus (09/19/2023 1:35 AM CDT) [facility] Phosphorus, pl 2.2(L) 2.3 - 4.5 mg/dL Blood 09/19/2023 1:35 AM CDT 09/19/2023 1:53 AM CDT Ibrahima Middleton MD LAB BLOOD ORDERABLES Final Result [facility] [place] [address] * MRI Cervical Spine WO Contrast (09/18/2023 [...] NP IMG MRI PROCEDURES Final Result * IT TRAINING SPECIALIST Evaluation and Treatment (09/18/2023 8:49 AM CDT) Narrative Buffy Caicedo SLP - 09/18/2023 8:49 AM CDT Buffy Caicedo SLP ? 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 Pt awake, in bed upon IT TRAINING SPECIALIST arrival in room. PCT present and assisting [...] reports no difficulty with mastication without dentures. IT TRAINING SPECIALIST assist with feeding pt breakfast. Pt observed [...] Aspiration Risk: No aspiration risk (170-200) Plan IT TRAINING SPECIALIST Frequency of Services during current admission: One-time visit (Discharge from this service) IT TRAINING SPECIALIST Recommendation (Add'l Services): No further IT TRAINING SPECIALIST indicated Further Assessment/Follow up Indicated: Recommendations: ??(No further ST needs for swallowing.) Next Visit Plan:No further ST warranted Additional Referrals: none Please reference care plan for treatment goals, if indicated. Discharge Summary Statement If this is the last swallow therapy visit, this serves as the discharge summary. us Amy Lara NP IT TRAINING SPECIALIST ORDERABLES Final R esult * eGFR (09/18/2023 [...] Middleton MD LAB BLOOD ORDERABLES Final Result [facility] Department [place] [address] * (ABNORMAL) Basic metabolic panel (09/18/2023 1:25 AM CDT) Sodium 140 135 - 145 mmol/L Potassium, pl 3.1(L) 3.3 - 4.9 mmol/L [facility] Chloride 106 97 - 110 mmol/L [facility] CO2 27 22 - 32 mmol/L [facility] Anion gap 7 2 - 15 mmol/L [facility] BUN 9 6 - 25 mg/dL [facility] Creatinine 0.45(L) 0.60 - 1.10 mg/dL [facility] Glucose 97 70 - 199 mg/dL [facility] Comment: Interpretive Data Fasting glucose >/= [...] 2022. Calcium 7.8(L) 8.5 - 10.3 mg/dL [facility] Blood 09/18/2023 1:25 AM CDT 09/18/2023 2:00 AM CDT Ibrahima Middleton MD LAB BLOOD ORDERABLES Final Result Performing Organization Address City/[facility]/ZIP Co de Phone Number [facility] Department [place] [address] * Magnesium (09/18/2023 1:25 AM CDT) [facility] Magnesium 1.7 1.4 - 2.5 mg/dL Blood 09/18/2023 1:25 AM CDT 09/18/2023 2:00 AM CDT Ibrahima Middleton MD LAB BLOOD ORDERABLES Final Result Performing Organization Address City/[facility]/ZIP Co de Phone Number [facility] [place] [address] * (ABNORMAL) CBC without differential (09/18/2023 1:25 AM CDT) [facility] WBC 8.4 3.8 - 9.9 K/cumm Hgb 9.3(L) 11.9 - 15.5 g/dL [facility] Hct 28.4(L) 35.6 - 45.5 % [facility] Plt 175 150 - 400 K/cumm [facility] MPV 11.1 9.1 - 12.3 fL [facility] RBC 3.14(L) 3.90 - 5.20 M/cumm [facility] MCV 90.4 81.3 - 96.4 fL [facility] MCH 29.6 27.1 - 33.3 pg [facility] MCHC 32.7 32.3 - 35.7 g/dL [facility] RDW CV 13.2 11.1 - 14.9 % [facility] RDW SD 43.3 35.7 - 48.1 fL [facility] NRBC abs 0.00 0.00 - 0.01 K/cumm [facility] Blood 09/18/2023 1:25 AM CDT 09/18/2023 1:59 AM CDT Ibrahima Middleton MD LAB BLOOD ORDERABLES Final Result Performing Organization Address [facility] Co de Phone Number [facility] [place] [address] * Phosphorus (09/18/2023 1:25 AM CDT) Pathologist [facility] Phosphorus, pl 2.9 2.3 - 4.5 mg/dL Blood 09/18/2023 1:25 AM CDT 09/18/2023 2:00 AM CDT Ibrahima Middleton MD LAB BLOOD ORDERABLES Final Result Performing Organization Address [facility] de Phone Number [facility] [place] [place] [address] * eGFR (09/16/2023 10:59 PM CDT) Pathologist [facility] eGFR >90 >=60 mL/min/1. 73 m2 Comment: [...] BLOOD ORDERABLES Final Result Performing Organization Address City/State/[facility] Co de Phone Number [facility] Department [place] [address] * (ABNORMAL) Basic metabolic panel (09/16/2023 10:59 PM CDT) Sodium 141 135 - 145 mmol/L Potassium, pl 3.8 3.3 - 4.9 mmol/L [facility] Chloride 108 97 - 110 mmol/L [facility] CO2 28 22 - 32 mmol/L [facility] Anion gap 5 2 - 15 mmol/L [facility] BUN 12 6 - 25 mg/dL [facility] Creatinine 0.54(L) 0.60 - 1.10 mg/dL [facility] Glucose 130 70 - 199 mg/dL [facility] Comment: Interpretive Data Fasting glucose >/= [...] 2022. Calcium 8.0(L) 8.5 - 10.3 mg/dL [facility] Blood 09/16/2023 10:5 9 PM CDT 09/17/2023 12:11 AM CDT Ibrahima Middleton MD LAB BLOOD ORDERABLES Final Result Performing Organization Address City/[facility]/ZIP Co de Phone Number [facility] [place] [address] * Magnesium (09/16/2023 10:59 PM CDT) [facility] Magnesium 1.5 1.4 - 2.5 mg/dL Blood 09/16/2023 10:5 9 PM CDT 09/17/2023 12:11 AM CDT Ibrahima Middleton MD LAB BLOOD ORDERABLES Final Result Performing Organization Address City/[facility] Co de Phone Number [facility] [place] [address] * (ABNORMAL) CBC without differential (09/16/2023 10:59 PM CDT) [facility] WBC 10.4(H) 3.8 - 9.9 K/cumm Hgb 10.3(L) 11.9 - 15.5 g/dL [facility] Hct 32.3(L) 35.6 - 45.5 % [facility] Plt 179 150 - 400 K/cumm [facility] MPV 11.1 9.1 - 12.3 fL [facility] RBC 3.46(L) 3.90 - 5.20 M/cumm [facility] MCV 93.4 81.3 - 96.4 fL [facility] MCH 29.8 27.1 - 33.3 pg [facility] MCHC 31.9(L) 32.3 - 35.7 g/dL [facility] RDW CV 13.1 11.1 - 14.9 % [facility] RDW SD 44.7 35.7 - 48.1 fL [facility] NRBC abs 0.00 0.00 - 0.01 K/cumm [facility] Blood 09/16/2023 10:5 9 PM CDT 09/17/2023 12:12 AM CDT Ibrahima Middleton MD LAB BLOOD ORDERABLES Final Result Performing Organization Address [facility] de Phone Number [facility] Department [place] [address] * (ABNORMAL) Phosphorus (09/16/2023 10:59 PM CDT) Phosphorus, pl 1.7(L) 2.3 - 4.5 mg/dL Blood 09/16/2023 10:5 9 PM CDT 09/17/2023 12:11 AM CDT Ibrahima Middleton MD LAB BLOOD ORDERABLES Final Result Performing Organization Address [facility] de Phone Number [facility] [place] [address] * XR Tibia Fibula Left 2 Views [...] splint. ??Arterial atherosclerosis is present. Procedure Note hKoa Tao MD PhD - 09/17/2023 EXAMINATION: Left [...] Electronically signed by: Khoa Tao MD, PHD Ibrahima Middlteon MD IMG XR PROCEDURES Final Res ult * FL Fluoroscopy < 1 Hour (09/16/2023 3:21 PM CDT) Narrative [facility] - 09/16/2023 3:24 PM CDT The images from this study are not interpreted by Radiology. ??Please refer to the physician's procedure / OR operative note. us Hammad Taylor MD IMG FLUOROSCOPY PROCEDURE S Final Result [facility] * (ABNORMAL) Creatine kinase (CK), total (09/16/2023 9:58 AM CDT) CK 1,157(H) 30 - 200 Units/L Blood 09/16/2023 9:58 AM CDT 09/16/2023 10:24 AM CDT Mqiuel Bagley MD LAB BLOOD ORDERABLES Final Result [facility] [place] [address] * [place] CRITICAL CARE ILL/INJURED PATIENT INIT 30-74 MIN [...] time documenting in the medical record. us Digoo Lee MD IN CLINIC/BEDSID E ORDERABLES Final Result * (ABNORMAL) Calcium, ionized (09/16/2023 6:44 AM CDT) Calcium, Ionized 4.40(L) 4.50 - 5.10 mg/dL Blood 09/16/2023 6:44 AM CDT 09/16/2023 6:57 AM CDT Diogo Lee MD LAB BLOOD ORDERA BLES Final Result [facility] Department [place] [address] * CT Chest Abdomen Pelvis W Contrast [...] by: Carloz Lewis M.D. Sara Jimenez MD IMG CT PROCEDURES Final Resul t * CT [...] 4:42 AM CDT) ABO Rh O Positive [facility] OTHER 09/16/2023 4:42 AM CDT 09/16/2023 4:58 AM CDT Ibrahima Middleton MD LAB BLOOD ORDERABLES Final Result [facility] [place] [address] [facility] * XR Tibia Fibula Left 2 Views [...] 12-LEAD (09/16/2023 3:02 AM CDT) Narrative [facility] - 09/16/2023 3:02 AM CDT Diogo Lee [...] ECG ORDERABLES Final Result Performing Organization Address City/[facility] Co de Phone Number [facility] * Magnesium (09/16/2023 3:02 AM CDT) Pathologist [facility] Magnesium 2.0 1.4 - 2.5 mg/dL Blood 09/16/2023 3:02 AM CDT 09/16/2023 3:57 AM CDT Ibrahima Middleton MD LAB BLOOD ORDERABLES Final Result Performing Organization Address City/[facility] Co de Phone Number [facility] Department [place] [address] * eGFR (09/16/2023 3:02 AM CDT) eGFR [...] MD LAB BLOOD ORDERABLES Final Re sult [facility] Department [place] [address] * (ABNORMAL) Urinalysis, microscopic only (09/16/2023 3:02 AM CDT) WBC, ur 0-5 0 - 5 /HPF RBC, ur 11-20(A) 0 - 2 /HPF [facility] Epithelial cells, squamous, ur 1-5 0 - 5 /HPF [facility] Bacteria, ur Trace(A) [facility] Mucous, ur Present(A) [facility] Hyaline casts, ur 6-10 0 - 10 /LPF [facility] Culture Reflex Comment Reflex conditions for urine culture (WBC >10) not met. [facility] Urine 09/16/2023 3:02 AM CDT 09/16/2023 3:22 AM CDT us Sara Jimenez MD LAB URINE ORDERABLES Final Re sult [facility] Department [place] [address] * (ABNORMAL) Differential, auto (09/16/2023 3:02 AM CDT) Neutrophil abs 10.0(H) 1.5 - 6.5 K/cumm Imm gran abs 0.1 0.0 - 0.1 K/cumm [facility] Lymphocyte abs 1.0 0.8 - 3.3 K/cumm [facility] Monocyte abs 1.6(H) 0.2 - 0.8 K/cumm [facility] Eosinophil abs 0.0 0.0 - 0.5 K/cumm [facility] Basophil abs 0.0 0.0 - 0.1 K/cumm [facility] Neutrophil pct 78.6 % [facility] Comment: Interpretive Data Percent cell count reference ranges are not reported, since discordance with absolute values may lead to misinterpretation of CBC data. Current Interpretive Data was last revised on 2017. Imm gran pct 0.6 % [facility] Comment: Interpretive Data Percent cell count reference ranges are not reported, since discordance with absolute values may lead to misinterpretation of CBC data. Current Interpretive Data was last revised on 2017. Lymphocyte pct 7.9 % [facility] Comment: Interpretive Data Percent cell count reference ranges are not reported, since discordance with absolute values may lead to misinterpretation of CBC data. Current Interpretive Data was last revised on 2017. Monocyte pct 12.6 % [facility] Comment: Interpretive Data Percent cell count reference ranges are not reported, since discordance with absolute values may lead to misinterpretation of CBC data. Current Interpretive Data was last revised on 2017. Eosinophil pct 0.1 % [facility] Comment: Interpretive Data Percent cell count reference ranges are not reported, since discordance with absolute values may lead to misinterpretation of CBC data. Current Interpretive Data was last revised on 2017. Basophil pct 0.2 % [facility] Comment: Interpretive Data Percent cell count reference ranges are not reported, since discordance with absolute values may lead to misinterpretation of CBC data. Current Interpretive Data was last revised on 2017. Blood 09/16/2023 3:02 AM CDT 09/16/2023 3:49 AM CDT Sara Jimenez MD LAB BLOOD ORDERABLES Final Re sult Performing Organization Address City/[facility]/ZIP Co de Phone Number [facility] [place] [address] * (ABNORMAL) Creatine kinase (CK), total (09/16/2023 3:02 AM CDT) CK 1,389(H) 30 - 200 Units/L Blood 09/16/2023 3:02 AM CDT 09/16/2023 3:57 AM CDT Sara Jimenez MD LAB BLOOD ORDERABLES Final Re sult Performing Organization Address [facility] [place] [address] * Type and screen (09/16/2023 3:02 AM CDT) ABO Rh O Positive Alejandrina, indirect Negative [facility] Blood 09/16/2023 3:02 AM CDT 09/16/2023 3:44 AM CDT Narrative [facility] - 09/16/2023 4:38 AM CDT Has the patient had Daratumumab or Isatuximab in the past 6 months?->Unknown Sara Jimenez MD LAB BLOOD BANK TEST ORDERABLE S Final Result Performing Organization Address [facility] Co de Phone Number [facility] [place] [place] [address] * (ABNORMAL) aPTT (09/16/2023 3:02 AM CDT) [...] ORDERABLES Final Re sult Performing Organization Address City/[facility]/ZIP Co de Phone Number [facility] [place] [address] * (ABNORMAL) Protime-INR (09/16/2023 3:02 AM CDT) Pathologist [facility] PT 14.0(H) 10.3 - 13.7 sec INR 1.23(H) 0.90 - 1.20 [facility] Comment: Interpretive data Oral anticoagulant therapeutic ranges: Venous thromboembolism prophylaxis or treatment: 2.0-3.0 CARDIOLOGY Standard range: 2.0-3.0 High-intensity range: 2.5-3.5 Refer to indication-specific guidelines for appropriate target ranges for prosthetic heart valve replacement. Current interpretive data was last revised on 2019. Blood 09/16/2023 3:02 AM CDT 09/16/2023 3:31 AM CDT Sara Jimenez MD LAB BLOOD ORDERABLES Final Re sult [facility] [place] [address] * (ABNORMAL) Comprehensive metabolic panel (09/16/2023 3:02 AM CDT) Sodium 137 135 - 145 mmol/L Potassium, pl 3.7 3.3 - 4.9 mmol/L [facility] Chloride 105 97 - 110 mmol/L [facility] CO2 23 22 - 32 mmol/L [facility] Anion gap 9 2 - 15 mmol/L [facility] BUN 20 6 - 25 mg/dL [facility] Creatinine 0.58(L) 0.60 - 1.10 mg/dL [facility] Glucose 101 70 - 199 mg/dL [facility] Comment: Interpretive Data Fasting glucose >/= [...] 2022. Calcium 8.4(L) 8.5 - 10.3 mg/dL [facility] Bilirubin, total 0.8 0.1 - 1.2 mg/dL [facility] Protein, pl 5.9(L) 6.5 - 8.5 g/dL [facility] Albumin 3.1(L) 3.5 - 5.0 g/dL [facility] Alk phos 78 40 - 130 Units/L [facility] ALT 33 7 - 45 Units/L [facility] AST 84(H) 10 - 45 Units/L [facility] Blood 09/16/2023 3:02 AM CDT 09/16/2023 3:57 AM CDT us Sara Jimenez MD LAB BLOOD ORDERABLES Final Re sult [facility] [place] [address] * (ABNORMAL) CBC with auto differential (09/16/2023 3:02 AM CDT) WBC 12.7(H) 3.8 - 9.9 K/cumm Hgb 11.5(L) 11.9 - 15.5 g/dL [facility] Hct 35.2(L) 35.6 - 45.5 % [facility] Plt 209 150 - 400 K/cumm [facility] MPV 11.2 9.1 - 12.3 fL [facility] RBC 3.93 3.90 - 5.20 M/cumm [facility] MCV 89.6 81.3 - 96.4 fL [facility] MCH 29.3 27.1 - 33.3 pg [facility] MCHC 32.7 32.3 - 35.7 g/dL [facility] RDW CV 12.8 11.1 - 14.9 % [facility] RDW SD 42.1 35.7 - 48.1 fL [facility] NRBC abs 0.00 0.00 - 0.01 K/cumm [facility] Blood 09/16/2023 3:02 AM CDT 09/16/2023 3:49 AM CDT Sara Jimenez MD LAB BLOOD ORDERABLES Final Re sult [facility] Department [place] [address] * (ABNORMAL) Urinalysis reflex to microscopic and culture Urine (09/16/2023 3:02 AM CDT) Color, ur Maryana Yellow Clarity, ur Clear Clear [facility] Specific gravity, ur 1.028 1.003 - 1.030 [facility] pH, urine 6.0 [facility] Comment: Interpretive Data ? Urine pH is affected by diet, medications, systemic acid-base disturbances, and renal tubular function. ??pH may affect urinary stone formation. ??For example, urine pH below 6.0 may help reduce the tendency for calcium phosphate stones and pH greater than 6.0 may reduce the tendency for uric acid stone formation. Source: [facility] Current Interpretive Data was last revised on 2017 Protein, ur ql 3+(A) Negative [facility] Glucose, ur ql Negative Negative [facility] Ketones, ur 2+(A) Negative [facility] Bilirubin, ur Negative Negative [facility] Blood, ur 2+(A) Negative [facility] Urobilinogen, ur <2.0 <2.0 mg/dL [facility] Nitrite, ur Negative Negative [facility] Leukocyte esterase, ur Negative Negative [facility] UA reflex comment Reflex to microscopic UA will be performed. [facility] Urine 09/16/2023 3:02 AM CDT 09/16/2023 3:22 AM CDT Sara Jimenez MD LAB MICROBIOLOGY - GENERAL OR DERABLES Final Result Performing Organization Address City/[facility] Co de Phone Number [facility] Department [place] [address] * XR Outside Reference (09/16/2023 2:57 AM CDT) Impressions [facility] - 09/16/2023 2:57 AM CDT These images are for Reference purposes only and have not been reviewed by [facility]. ??There will be no report generated by a [facility] Radiologist. Narrative [facility] - 09/16/2023 2:57 AM CDT EXAMINATION: ??Images For Reference Purposes Only Sara Jimenez MD IMG XR PROCEDURES Final Resul t Performing Organization Address [facility] Co de Phone Number [facility] * XR Outside Reference (09/16/2023 2:56 AM CDT) Impressions [facility] - 09/16/2023 2:56 AM CDT These images are for Reference purposes only and have not been reviewed by [facility]. ??There will be no report generated by a [facility] Radiologist. Narrative [facility] - 09/16/2023 2:56 AM CDT EXAMINATION: ??Images For Reference Purposes Only Sara Jimenez MD IMG XR PROCEDURES Final Resul t Performing Organization Address [facility] de Phone Number [facility] * XR Outside Reference (09/16/2023 2:55 AM CDT) Impressions [facility] - 09/16/2023 2:55 AM CDT These images are for Reference purposes only and have not been reviewed by [facility]. ??There will be no report generated by a [facility] Radiologist. Narrative [facility] - 09/16/2023 2:55 AM CDT EXAMINATION: ??Images For Reference Purposes Only Sara Jimenez MD IMG XR PROCEDURES Final Resul t Performing Organization Address [facility] de Phone Number [facility] * XR Outside Reference (09/16/2023 2:54 AM CDT) Impressions [facility] - 09/16/2023 2:54 AM CDT These images are for Reference purposes only and have not been reviewed by [facility]. ??There will be no report generated by a [facility] Radiologist. Narrative [facility] - 09/16/2023 2:54 AM CDT EXAMINATION: ??Images For Reference Purposes Only us Sara Jimenez MD IMG XR PROCEDURES Final Resul t Performing Organization Address [facility] de Phone Number [facility] * Neuro CT [...] images may or may not represent the sun'aq source data set and thus may contain [...] IMAGING STUDY STUDY INITIALLY PERFORMED: 09/16/2023 at [facility]. TYPE OF STUDY: Multiple CT images [...] IMAGING STUDY STUDY INITIALLY PERFORMED: 09/16/2023 at [facility]. TYPE OF STUDY: Multiple CT images [...] images may or may not represent the sun'aq source data set and thus may contain [...] Outside Reference (09/16/2023 2:51 AM CDT) Impressions [facility] - 09/16/2023 2:51 AM CDT These images are for Reference purposes only and have not been reviewed by [facility]. ??There will be no report generated by a [facility] Radiologist. Narrative [facility] - 09/16/2023 2:51 AM CDT EXAMINATION: ??Images For Reference Purposes Only Sara Jimenez MD IMG XR PROCEDURES Final Resul t [facility] * Neuro CT Outside Consult (09/16/2023 2:50 [...] images may or may not represent the sun'aq source data set and thus may contain [...] IMAGING STUDY STUDY INITIALLY PERFORMED: 09/16/2023 at [facility]. TYPE OF STUDY: Multiple CT images [...] IMAGING STUDY STUDY INITIALLY PERFORMED: 09/16/2023 at [facility]. TYPE OF STUDY: Multiple CT images [...] images may or may not represent the sun'aq source data set and thus may contain [...] only and have not been reviewed by [facility]. ??There will be no report generated by a [facility] Radiologist. Narrative [facility] - 09/16/2023 2:42 AM [...] Electrolyte and fluid disorders not elsewhere classified documented in this encounter Admitting Diagnoses Diagnosis [...] (TYLENOL) tablet 1,000 mg 1,000 mg, oral, Once, On Thu09/16/23 at 1145, For 1 dose, Pre-Op, Indications: Pre-Emptive AnalgesiaIndications:Pre-Emptiv e Analgesia Given 09/16/2023 11:22 AM CDT 1,000 mg acetaminophen (TYLENOL) tablet 1,000 mg 1,000 mg, oral, Every 6 hours, First dose (after last modification) on Darby 09/17/23 at 1630, Indications: PainIndications:Pain Given 09/29/2023 5:36 PM CDT 1,000 mg Given 09/29/2023 12:07 PM CDT 1,000 mg Given 09/28/2023 11:22 PM CDT 1,000 mg acetaminophen (TYLENOL) tablet 650 mg 650 mg, oral, Every 6 hours, First dose on Thu09/16/23 at 2230, Indications: PainIndications:Pain Given 09/17/2023 9:52 AM CDT 650 mg Given 09/16/2023 10:32 PM CDT 650 mg baclofen (LIORESAL) tablet 5 mg 5 mg, oral, Once, On Thu09/25/23 at 0000, For 1 dose Given 09/24/2023 11:50 PM CDT 5 mg benzocaine-menthoL (CHLORASEPTIC) lozenge 1 lozenge 1 lozenge, mouth/throat, Every 2 hours PRN, sore throat, Starting on Thu09/21/23 at 0538 Given 09/24/2023 11:02 AM CDT 1 lozenge Given 09/22/2023 9:02 PM CDT 1 lozenge bisacodyL (DULCOLAX) suppository 10 mg 10 mg, rectal, 2 times daily PRN, constipation, Starting on Thu09/23/23 at 1237, Indications: constipationIndications:constipa tion Given 09/23/2023 12:48 PM CDT 10 mg calcium gluconate 2 g/100 mL in sodium chloride (premix) solution 2 g 2 g, intravenous, Administer over 60 Minutes, Once, On Thu09/16/23 at 0728, For 1 dose, Room temperature only, Indications: hypocalcemiaIndications:hypocalc emia New Bag 09/16/2023 7:50 AM CDT 2 g ceFAZolin (ANCEF) 1 gram/10 mL in sterile water (premix) 1,000 mg 1,000 mg, intravenous, at 200 mL/hr, Administer over 3 Minutes, Every 8 hours, First dose on Thu09/16/23 at 2300, For 2 doses, Beginning 8 hours after pre-op dose., Indications: Prophylaxis, SurgicalIndications:Prophylaxis, Surgical Given 09/17/2023 9:52 AM CDT 1,000 mg 200 mL/hr Given 09/17/2023 12:40 AM CDT 1,000 mg 200 mL/hr dextrose 5% and Lactated Ringer's infusion 150 mL/hr, intravenous, Continuous, Starting on Thu09/16/23 at 0526, For 10 hours New Bag 09/16/2023 6:44 AM CDT 150 mL/hr 15 0 mL/hr dextrose 5% and Lactated Ringer's infusion 25 mL/hr, intravenous, Continuous, Starting on Thu09/16/23 at 2230 Restarted 09/16/2023 9:57 PM CDT 25 mL/hr 25 mL/hr New Bag 09/16/2023 9:56 PM CDT 25 mL/hr 25 mL/hr dextrose 5% and Lactated Ringer's infusion 25 mL/hr, intravenous, Continuous, Starting on Thu09/20/23 at 1515 Rate/Dose Verify 09/21/2023 10:00 AM CDT 25 mL/hr 25 mL/hr Rate/Dose Verify 09/21/2023 7:00 AM CDT 25 mL/hr 25 mL/h r Rate/Dose Verify 09/20/2023 6:00 PM CDT 25 mL/hr 25 mL/h r dextrose 5% and Lactated Ringer's infusion 10 mL/hr, intravenous, Continuous, Starting on Thu09/21/23 at 1115 Rate/Dose Verify 09/22/2023 7:00 AM CDT 10 mL/hr 10 mL/hr Rate/Dose Verify 09/22/2023 5:00 AM CDT 10 mL/hr 10 mL/h r Rate/Dose Verify 09/22/2023 4:00 AM CDT 10 mL/hr 10 mL/h r enoxaparin (LOVENOX) syringe 30 mg 30 mg, subcutaneous, Every 12 hours scheduled, First dose (after last modification) on Darby 09/17/23 at 2100, Indications: Deep Vein Thrombosis Prevention, On hold since 09/19/2023 at 2117 until manually unheldIndications:Deep Vein Thrombosis Prevention Given 09/18/2023 8:45 PM CDT 30 mg Left Lower Abdomen Given 09/18/2023 9:33 AM CDT 30 mg Le ft Lower Abdomen Given 09/17/2023 8:10 PM CDT 30 mg Le ft Lower Abdomen enoxaparin (LOVENOX) syringe 30 mg 30 mg, subcutaneous, Every 12 hours scheduled, First dose (after last modification) on Tu09/22/23 at 2100, Indications: Deep Vein Thrombosis PreventionIndications:Deep Vein Thrombosis Prevention Given 09/25/2023 9:00 AM CDT 30 mg Left Lower Abdomen Given 09/24/2023 8:51 PM CDT 30 mg Le ft Lower Abdomen Given 09/24/2023 8:39 AM CDT 30 mg Le ft Upper Abdomen enoxaparin (LOVENOX) syringe 40 mg 40 mg, subcutaneous, Daily (for enoxaparin), First dose on Thu09/16/23 at 2230, Indications: Deep Vein Thrombosis PreventionIndications:Yecenia p Vein Thrombosis Prevention Given 09/16/2023 10:32 PM CDT 40 mg Left Lower Abdomen famotidine (PEPCID) 20 mg/50 mL in sodium chloride 0.9% (premix) 20 mg 20 mg, intravenous, at 150 mL/hr, Administer over 20 Minutes, Every 24 hours scheduled, First dose on Darby 09/17/23 at 0900 New Bag 09/17/2023 9:52 AM CDT 20 mg 150 mL/hr famotidine (PEPCID) tablet 20 mg 20 mg, oral, Daily, First dose on Thu09/18/23 at 1045 Given 09/21/2023 8:16 AM CDT 20 mg Given 09/18/2023 10:24 AM CDT 20 mg gabapentin (NEURONTIN) capsule 200 mg 200 mg, oral, 2 times daily, First dose on Thu09/21/23 at 0345 Given 09/23/2023 8:54 AM CDT 200 mg Given 09/22/2023 8:48 PM CDT 200 mg Given 09/22/2023 8:30 AM CDT 200 mg gabapentin (NEURONTIN) capsule 300 mg 300 mg, [...] CDT 5,000 Units L eft Lower Abdomen HYDROmorphone (DILAUDID) 0.5 mg/0.5 mL injection - ADS Override Pull Starting on Thu09/20/23 at 1445, For 1 dose, Created by cabinet override HYDROmorphone (DILAUDID) injection 0.2 mg 0.2 mg, intravenous, Administer over 2 Minutes, Once, On Thu09/20/23 at 1515, For 1 dose Given 09/20/2023 3:00 PM CDT 0.2 mg HYDROmorphone (DILAUDID) injection 0.2 mg 0.2 mg, intravenous, Administer over 2 Minutes, Every 4 hours PRN, breakthrough pain, Starting on Thu09/22/23 at 1818 Given 09/27/2023 2:26 AM CDT 0.2 mg Given 09/25/2023 5:54 AM CDT 0.2 mg Given 09/24/2023 1:52 PM CDT 0.2 mg HYDROmorphone in 0.9% sodium chloride (DILAUDID) 20 mg/100 mL (0.2 mg/mL) (premix) Continuous: none, PHP ENGINEER dose: 0.2 mg, PHP ENGINEER lockout: 10 Minutes, 1 hour limit: 1.2 mg, intravenous, Continuous, Starting on Thu09/20/23 at 1515, Until Thu09/20/23 at 1502, 100 mL, Indications: Pain, RoutineIndications:Pain New Syringe/Cartridge 09/20/2023 2:56 PM CDT HYDROmorphone in 0.9% sodium chloride (DILAUDID) 20 mg/100 mL (0.2 mg/mL) (premix) Continuous: none, PHP ENGINEER dose: 0.2 mg, PHP ENGINEER lockout: 10 Minutes, 1 hour limit: 1.2 mg, intravenous, Continuous, Starting on Thu09/20/23 at 1600, Until Thu09/22/23 at 1143, 100 mL, Indications: Pain, RoutineIndications:Pain Rate/Dose Verify 09/20/2023 4:55 PM CDT ioversoL (OPTIRAY 350) syringe 75 mL 75 mL, intravenous, Once in imaging, contrast, Starting on Thu09/16/23 at 0552, For 1 dose Contrast Given 09/16/2023 6:19 AM CDT 70 mL labetaloL (NORMODYNE,TRANDATE) injection 20 mg 20 mg, intravenous, at 120 mL/hr, Administer over 2 Minutes, Once, On Thu09/20/23 at 1630, For 1 dose Given 09/20/2023 4:04 PM CDT 20 mg 120 mL/hr Lactated Ringer's (LR) bolus 1,000 mL 1,000 mL, intravenous, Once, On Thu09/16/23 at 0306, For 1 dose New Bag 09/16/2023 3:31 AM CDT 1,000 mL Lactated Ringer's (LR) bolus 500 mL 500 mL, intravenous, Once, On Thu09/20/23 at 2330, For 1 dose New Bag 09/20/2023 11:05 PM CDT 500 mL Lactated Ringer's (LR) infusion 30 mL/hr, intravenous, Continuous, Starting on Thu09/20/23 at 0815, Pre-Op Restarted 09/20/2023 1:28 PM CDT Rate/Dose Verify 09/20/2023 8:09 AM CDT 30 mL/h r New Bag 09/20/2023 8:01 AM CDT 30 mL/hr 30 mL/hr lidocaine (ASPERCREME) 4 % patch 2 patch 2 patch, transdermal, Administer over 12 Hours, Every 24 hours, First dose on Thu09/19/23 at 1315, Apply to affected area: back, neck Medication Applied 09/26/2023 1:18 PM CDT 2 patches Back Medication Applied 09/24/2023 1:41 PM CDT 2 patches Other (Comment) Medication Applied 09/23/2023 1:59 PM CDT 2 patches Other (Comment) lidocaine (PF) (XYLOCAINE) 10 mg/mL (1 %) preservative free injection 100 mg 100 mg (10 mL), infiltration, Once, On Thu09/21/23 at 1030, For 1 dose Given 09/21/2023 10:32 AM CDT 100 mg magnesium oxide (MAG-OX) tablet 800 mg 800 mg, oral, Once, On Thu09/18/23 at 1515, For 1 dose, 1 tablet = Magnesium oxide 400 mg = 241.3 mg elemental magnesium, Indications: hypomagnesemiaIndications:hypomagnesemia Given 09/18/2023 3:08 PM CDT 800 mg magnesium oxide (MAG-OX) tablet 800 mg 800 mg, oral, Daily, First dose on Thu09/19/23 at 0900, For 3 doses, 1 tablet = Magnesium oxide 400 mg = 241.3 mg elemental magnesium, Indications: hypomagnesemiaIndications:hypomagnesemia Given 09/19/2023 11:16 AM CDT 80 0 mg magnesium sulfate 1 g/100 mL in dextrose 5% (premix) 1 g 1 g, intravenous, Administer over 60 Minutes, Once, On Thu09/23/23 at 2045, For 1 dose 09/23/2023 10:13 PM CDT 1 g magnesium sulfate 2 g/50 mL in water (premix) 2 g 2 g, intravenous, Administer over 60 Minutes, Once, On Thu09/17/23 at 0715, For 1 dose 09/17/2023 8:03 AM CDT 2 g magnesium sulfate 2 g/50 mL in water (premix) 2 g 2 g, intravenous, Administer over 60 Minutes, Once, On Thu09/22/23 at 0245, For 1 dose 09/22/2023 2:17 AM CDT 2 g magnesium sulfate 2 g/50 mL in water (premix) 2 g 2 g, intravenous, Administer over 60 Minutes, Once, On Thu09/22/23 at 2130, For 1 dose 09/22/2023 9:59 PM CDT 2 g magnesium sulfate 4 g/100 mL in water (premix) 4 g 4 g, intravenous, Administer over 90 Minutes, Once, On Thu09/20/23 at 1715, For 1 dose, Give prior to K, Indications: hypomagnesemiaIndications:hypomagnesemia [facility] 09/20/2023 5:20 PM CDT 4 g methocarbamoL (ROBAXIN) tablet 1,000 mg 1,000 mg, oral, 4 times daily, First dose (after last modification) on Thu09/22/23 at 1700 Given 09/29/2023 5:36 PM CDT 1,000 mg Given 09/29/2023 12:07 PM CDT 1,000 mg Given 09/29/2023 8:14 AM CDT 1,000 mg methocarbamoL (ROBAXIN) tablet 500 mg 500 mg, oral, 3 times daily, First dose (after last modification) on Darby 09/17/23 at 1415 Given 09/19/2023 11:16 AM CDT 500 mg Given 09/18/2023 8:45 PM CDT 500 mg Given 09/18/2023 3:08 PM CDT 500 mg methocarbamoL (ROBAXIN) tablet 750 mg 750 mg, oral, 4 times daily, First dose (after last modification) on 09/19/23 at 1700 Given 09/22/2023 11:38 AM CDT 750 mg Given 09/22/2023 8:30 AM CDT 750 mg Given 09/21/2023 8:47 PM CDT 750 mg methocarbamoL (ROBAXIN) tablet 750 mg 750 mg, oral, Once, On 09/19/23 at 1400, For 1 dose Given 09/19/2023 1:41 PM CDT 750 mg metoprolol (LOPRESSOR) 5 mg/5 mL injection - ADS Override Pull Starting on Darby 09/24/23 at 2241, For 1 dose, Created by joset override metoprolol (LOPRESSOR) injection 5 mg 5 mg, intravenous, Administer over 1 Minutes, Once, On Darby 09/24/23 at 2315, For 1 dose Given 09/24/2023 10:47 PM CDT 5 mg morphine injection 4 mg 4 mg, intravenous, Administer over 4 Minutes, Every 4 hours PRN, 1st line for pain, Starting on Thu09/16/23 at 0256 Given 09/16/2023 3:38 AM CDT 4 mg naloxone (NARCAN) 0.4 mg/mL injection 0.04-0.4 [...] minute until desired level of alertness. Stop PHP ENGINEER and notify covering MD. This order has been ordered with PHP ENGINEER infusion, please review upon the discontinuation of PHP ENGINEER. For IV, administer over 30 seconds., Indications: Opioid ToxicityIndications:Opioid Toxicity OLANZapine (ZyPREXA) 5 mg in sterile water 1 mL (5 mg/mL) syringe 5 mg, intravenous, Administer over 1 Minutes, Once as needed, other, for MRI, Starting on Thu09/18/23 at 1512, For 1 dose, Give on the way to MRI Reconstitute 10 mg vial with 2.1 mL SWFI. Resulting solution is ~5 mg/mL. Use immediately (within 1 hour) following reconstitution. Given 09/18/2023 5:55 PM CDT 5 mg ondansetron (ZOFRAN) injection 4 mg 4 mg, intravenous, Administer over 2 Minutes, Every 6 hours PRN, nausea, vomiting, Starting on Thu09/20/23 at 1435, Indications: nausea and vomitingIndications:nausea and vomiting oxyCODONE (ROXICODONE) tablet 2.5 mg 2.5 mg, oral, Every 4 hours PRN, 1st line for pain, Starting on Thu09/16/23 at 2149, Indications: PainIndications:Pain Given 09/18/2023 3:34 AM CDT 2.5 mg Given 09/17/2023 8:10 PM CDT 2.5 mg Given 09/17/2023 8:00 AM CDT 2.5 mg oxyCODONE (ROXICODONE) tablet 5 mg 5 mg, oral, Every 4 hours PRN, 1st line for pain, Starting on Thu09/21/23 at 0600, Indications: PainIndications:Pain Given 09/21/2023 5:41 AM CDT 5 mg oxyCODONE (ROXICODONE) tablet 5 mg 5 mg, oral, Every 4 hours PRN, 1st line for pain, Starting on Thu09/22/23 at 1143, Indications: PainIndications:Pain Given 09/29/2023 5:36 PM CDT 5 mg Given 09/29/2023 12:08 PM CDT 5 mg Given 09/28/2023 5:45 PM CDT 5 mg phenylephrine in 0.9% sodium chloride (NAMAN-SYNEPHRINE) 25,000 mcg/250 mL (100 mcg/mL) infusion (premix) solution 0-2.5 mcg/kg/min ? 72.6 kg (0-108.9 mL/hr), 100 mcg/mL, intravenous, Titrated, Starting on Thu09/21/23 at 0015, Until Thu09/22/23 at 1105, Initial rate: 0.5 mcg/kg/min, Titrate: Up/Down, Titrate by: 0.1 mcg/kg/min, Every: 2 minutes, Goal: MAP, MAP Goal: Other (comment) / 80, Peripheral administration must be through an upper extremity IV in the forearm or upper arm, 20 gauge or larger. For more information on peripheral vasopressor administration see Peripheral Vasopressor Adminstration policy. Protect from light, Routine Rate/Dose Change 09/22/2023 11:05 AM CDT 1.2 mcg/kg/min 52.3 mL/hr Rate/Dose Change 09/22/2023 11:00 AM CDT 1.1 mcg/kg/min 47 .9 mL/hr Rate/Dose Change 09/22/2023 10:52 AM CDT 1.2 mcg/kg/min 52 .3 mL/hr phenylephrine in 0.9% sodium chloride (NAMAN-SYNEPHRINE) 25,000 mcg/250 mL (100 mcg/mL) infusion (premix) solution 0-2.5 mcg/kg/min ? 72.6 kg (0-108.9 mL/hr), 100 mcg/mL, intravenous, Titrated, Starting on Thu09/22/23 at 1145, Until Thu09/22/23 at 1143, Initial rate: 0.5 mcg/kg/min, Titrate: Up/Down, Titrate by: 0.1 mcg/kg/min, Every: 2 minutes, Goal: MAP, MAP Goal: Other (comment) / >65, Peripheral administration must be through an upper extremity IV in the forearm or upper arm, 20 gauge or larger. For more information on peripheral vasopressor administration see Peripheral Vasopressor Adminstration policy. Protect from light, Routine Rate/Dose Change 09/22/2023 11:37 AM CDT 0.5 mcg/kg/min 21.8 mL/hr Rate/Dose Change 09/22/2023 11:30 AM CDT 0.6 mcg/kg/min 26 .1 mL/hr Rate/Dose Change 09/22/2023 11:10 AM CDT 1 mcg/kg/min 43.6 mL/hr phenylephrine in 0.9% sodium chloride (NAMAN-SYNEPHRINE) 25,000 mcg/250 mL (100 mcg/mL) infusion (premix) solution 0-2.5 mcg/kg/min ? 72.6 kg (0-108.9 mL/hr), 100 mcg/mL, intravenous, Titrated, Starting on Thu09/22/23 at 1215, Until Thu09/23/23 at 1200, Initial rate: 0.5 mcg/kg/min, Titrate: Up/Down, Titrate by: 0.1 mcg/kg/min, Every: 2 minutes, Goal: MAP, MAP Goal: 65-75 mmHg / >65, Peripheral administration must be through an upper extremity IV in the forearm or upper arm, 20 gauge or larger. For more information on peripheral vasopressor administration see Peripheral Vasopressor Adminstration policy. Protect from light, Routine Rate/Dose Change 09/22/2023 1:46 PM CDT 0.2 mcg/kg/min 8.71 mL/hr Rate/Dose Change 09/22/2023 1:00 PM CDT 0.4 mcg/kg/min 17. 42 mL/hr Rate/Dose Verify 09/22/2023 11:47 AM CDT 0.6 mcg/kg/min 26 .1 mL/hr polyethylene glycol (MIRALAX) packet 17 g 17 g, oral, Daily, First dose on Thu09/19/23 at 0900, Indications: constipationIndications:constipation Given 09/25/2023 9:00 AM CDT 17 g Given 09/24/2023 8:39 AM CDT 17 g Given 09/22/2023 8:30 AM CDT 17 g potassium chloride (KLOR-CON) packet 40 mEq 40 mEq, feeding tube, Once, On Thu09/18/23 at 1045, For 1 dose, Dissolve one packet in at least 120 mL of cold water or other beverage prior to administration. Given 09/18/2023 10:24 AM CDT 40 mEq potassium chloride 40 mEq/520 mL in sodium chloride 0.9% (premix) 40 mEq 40 mEq, intravenous, at 130 mL/hr, Administer over 4 Hours, Once, On Thu09/18/23 at 0545, For 1 dose, Indications: hypokalemiaIndications:hypokale mina New Bag 09/18/2023 5:48 AM CDT 40 mEq 130 mL/hr potassium chloride ER (KLOR-CON) extended release tablet 40 mEq 40 mEq, oral, Once, On Thu09/20/23 at 1715, For 1 dose, After mag Tablets should not be crushed, chewed, dissolved, or otherwise manipulated. Capsules may be opened and sprinkled on a spoonful of applesauce or pudding, but the contents of the capsule should not be crushed or chewed., Indications: hypokalemiaIndications:hypokale mina Given 09/20/2023 5:30 PM CDT 40 mEq potassium, sodium phosphates (PHOS-NAK) 280-160-250 mg packet 2 packet 2 packet, oral, 4 times daily before meals & nightly, First dose on Thu09/22/23 at 2130, For 4 doses, Each packet contains elemental phosphorus 250 mg (8 mmol), potassium 280 mg (7.1 mEq), and sodium 160 mg (6.9 mEq). Given 09/23/2023 5:11 PM CDT 2 packets Given 09/23/2023 11:28 AM CDT 2 packets Given 09/23/2023 8:54 AM CDT 2 packets senna-docusate (PERICOLACE) 8.6-50 mg per tablet 1 [...] PM CDT 10 mL sodium chloride 0.9% infusion 30 mL/hr, intravenous, Continuous, Starting on Thu09/16/23 at 1145, Pre-Op New Bag 09/16/2023 3:03 PM CDT New Bag 09/16/2023 1:07 PM CDT Restarted 09/16/2023 12:09 PM CDT sodium phosphate - potassium phosphate (K-PHOS NEUTRAL) tablet 500 mg 500 mg, oral, Every 4 hours scheduled, First dose on Darby 09/17/23 at 0600, For 4 doses, Each tablet contains elemental phosphorus 250 mg (8 mmol), potassium 45 mg (1.1 mEq), and sodium 298 mg (13 mEq). Given 09/17/2023 8:10 PM CDT 500 mg Given 09/17/2023 3:39 PM CDT 500 mg Given 09/17/2023 11:24 AM CDT 500 mg sodium phosphate - potassium phosphate (K-PHOS NEUTRAL) tablet 500 mg 500 mg, oral, Once, On 09/19/23 at 0730, For 1 dose, Each tablet contains elemental phosphorus 250 mg (8 mmol), potassium 45 mg (1.1 mEq), and sodium 298 mg (13 mEq). Given 09/19/2023 11:16 AM CDT 500 mg traZODone (DESYREL) tablet 50 mg 50 mg, oral, Nightly, First dose on 09/19/23 at 2100 Given 09/28/2023 8:03 PM CDT 50 mg Given 09/27/2023 8:53 PM CDT 50 mg Given 09/26/2023 8:20 PM CDT 50 mg traZODone (DESYREL) tablet 50 mg 50 mg, oral, Once, On Darby 09/24/23 at 0000, For 1 dose Given 09/23/2023 11:25 PM CDT 50 mg documented in this encounter Discontinued Medications Medication [...] modification) on Darby 09/17/23 at 1630, Indications: Pain 0515 (Given - Provider: Abdi Peterson RN)1234 (Given - Provider: Priscila Crespo RN)1814 (Given - Provider: Priscila Crespo RN) 0053 (Given - Provider: Abdi Peterson RN)0510 (Given - Provider: Abdi Peterson RN)1206 (Given - Provider: Nancy Torrez)1719 (Given - Provider: Nancy Torrez)2322 (Given - Provider: Blake Joseph, TYLER) 0543 (Not Given - Provider: Blake Joseph RN - Reason: Patient/family refused)1207 (Given - Provider: Priscila Crespo RN)1736 (Given - Provider: Priscila Crespo RN) gabapentin (NEURONTIN) capsule 300 mg 300 mg, oral, 2 times daily, First dose (after last modification) on Thu09/23/23 at 2100 0822 (Given - Provider: Priscila Crespo RN)2052 (Given - Provider: Abdi Peterson RN) 0822 (Given - Provider: Nancy Torrez)2002 (Given - Provider: Blake Joseph RN) 0814 (Given - Provider: Priscila Crespo RN) heparin 5,000 unit/mL injection 5,000 Units 5,000 Units, subcutaneous, Every 8 hours scheduled, First dose on Thu09/25/23 at 1400, Indications: Deep Vein Thrombosis Prevention 0515 (Given - Provider: Abdi Peterson RN)1509 (Given - Provider: Priscila Crespo, TYLER)210 (Given - Provider: Abdi Peterson RN) 0510 (Given - Provider: Abdi Peterson RN)1346 (Given - Provider: Nancy Torrez)211 (Given - Provider: Blake Joseph, TYLER) 0536 (Given - Provider: Blake Joseph RN)1740 (Given - Provider: Priscila Crespo RN) lidocaine [...] Thu09/22/23 at 1700 0822 (Given - Provider: Pricsila Crespo RN)1234 (Given - Provider: Priscila Crespo RN)1826 (Given - Provider: Priscila Crespo RN)2130 (Given - Provider: Dede Sahni RN) 0822 (Given - Provider: Nancy Torrez)1206 (Given - Provider: Nancy Torrez)1719 (Given - Provider: Nancy Torrez)2002 (Given - Provider: Blake Joseph RN) 0814 (Given - Provider: Priscila Crespo RN)1207 [...] RN - Reason: Order parameters not met) 0814 (Given - Provider: Priscila Crespo RN) sodium chloride 0.9% flush 0.5-20 mL 0.5-20 mL, intra-catheter, Every 8 hours scheduled, First dose on Thu09/16/23 at 2230, Flush volume based on line type and size. 0517 (Given - Provider: Abdi Peterson RN)1400 (Due)210 (Given - Provider: Abdi Peterson RN) 0514 (Given - Provider: Abdi Peterson RN)1346 (Given - Provider: Nancy Torrez)2004 (Given - Provider: Blake Joseph RN) 0543 (Given - Provider: Blake Emy Steiniger, RN)1400 (Due) traZODone (DESYREL) tablet 50 mg 50 mg, oral, Nightly, First dose on Thu09/19/23 at 2100 205 (Given - Provider: Abdi Peterson RN) 2002 (Given - Provider: Blake Joseph RN) PRN Medication Order 09/27/2023 09/28/2023 09/29/2023 benzocaine-menthoL [...] minute until desired level of alertness. Stop PHP ENGINEER and notify covering MD. This order has been ordered with PHP ENGINEER infusion, please review upon the discontinuation of PHP ENGINEER. For IV, administer over 30 seconds., Indications: [...] Abdi Peterson RN)0823 (Given - Provider: Priscila Crespo, TYLER - Comment: BLE/BUE)1509 (Given - Provider: Priscila Crespo, TYLER) 1019 (Given - Provider: Nancy Torrez - Comment: scan didn't save)1745 (Given - Provider: Nancy Torrez) 1208 (Given - Provider: Priscila Crespo, YTLER)1736 (Given - Provider: Priscila Crespo RN) sodium [...] Count Last Ordered Date First Ordered Date HYDROmorphone (DILAUDID) injection 0.5 mg 2 09/21/2023 09/20/2023 Lactated Ringer's (LR) bolus 500 mL 1 09/20 oxyCODONE (ROXICODONE) tablet 5 mg 1 2023 phenoL (CHLORASEPTIC) 1.4 % oral spray 1 spray 1 09/21/2023 ceFAZolin (ANCEF) 1,000 mg i n sodium chloride 0.9% 1,000 mL irrigation solution 1 09/20/2023 dextrose (D10W) 10% bolus 250 mL 09/20/19 dextrose gel in packet 15 g 1 09/20/2023 glucagon injection 1 mg 1 09/20/2023 hydrALAZINE (APRESOLINE) injection 10 mg 1 09/20/2023 insulin lispro (HumaLOG, ADM ELOG) 100 unit/mL injection 1-3 Units 1 09/20/2023 labetaloL (NORMODYNE,TRANDAT E) injection 20 mg 1 09/20/2023 Lactated Ringer's (LR) infusion 1 naloxone (NARCAN) 0.4 mg/mL injection 0.04-0.4 mg 2 09/20/2023 09/16/2023 ondansetron (ZOFRAN) injection 4 mg 2 09/1909/16/2023 sodium chloride 0.9% irrigation 3 4 09/16/2023 thrombin-recombinant 5,000 u nit topical solution 1 09/20/2023 vancomycin (VANCOCIN) solution 1 09/20/2023 acetaminophen (TYLENOL) tablet 1,000 mg 1 0 09/19/2023 sodium chloride 0.9% infusion 1 09/19/2023 magnesium oxide (MAG-OX) tablet 800 mg 1 methocarbamoL (ROBAXIN) tablet 500 mg 1 09/2023 albuterol 2.5 mg/0.5 mL nebu lizer solution 2.5 mg 1 09/16/2023 Carrier Fluids for Secondary Infusion - 0.9% Sodium Chloride 1 09/16/2023 ceFAZolin (ANCEF) 2,000 mg/2 0 mL in sterile water (premix) 2,000 mg 1 09/16/2023 diphenhydrAMINE (BENADRYL) 5 0 mg/mL injection 12.5 mg 1 09/16/2023 HYDROmorphone (DILAUDID) injection 0.2 mg 1 09/16/2023 HYDROmorphone (DILAUDID) injection 0.4 mg 1 09/16/2023 meperidine (DEMEROL) preserv ative free injection 12.5 mg 1 09/16/2023 prochlorperazine (COMPAZINE) injection 5 mg 1 09/16/2023 sodium chloride 0.9% flush 0.5-20 mL 1 08/2023 Lab Orders Without Results Count Last Ordered [...] 09/20/2023 documented in this encounter Care Teams [employer]ogul Operator Relationship Specialty Start Date End Date No, Physician PCP - General 09/16/23 01/17/24 documented as of this encounter
--- OUTSIDE RECORDS SUMMARY | 2024-04-02 06:32 | XMS_ITS | Encounter Summary ---
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 Name Role Phone No, Physician Primary Care Provider [phone] Encounter Details Date Type Department Care Team (Late st Contact Info) Description 09/19/2023 11:00 AM CDT Anesthesia Event [facility] Operating Room [address] [place] [address] Júnior Velazquez MD [address] [facility] [address] [place] [address] Anesthesia Record Procedure Summary Procedure Name Responsible Anesthesiologist Anesthesia Start Time Anesthesia Stop Time FUSION CERVICAL/THORACIC - POSTERIOR WITH INSTRUMENTATION (Spine Cervical) Events Date Time Event Comment 09/19/2023 0907 In Preop Meds * Agents No agents on file. * Blood No blood administrations on file. Lines, Drains, and Airways Type Details Placement Removal Peripheral IV Placement Date: 01/04; Placement Time: 938 (created via procedure documentation); Catheter Size: 20 G; Orientation: Left; Location: Arm; Site Prep: Chlorhexidine; Insertion Attempts: 2 09/20/23 0939 by Hans Brady CRNA External Urinary Device 09/25/23 09/25/23 0000 by Carol Keys documented in this encounter Social History Tobacco Use Types Packs/Day Years Used Date Smoking Tobacco: Former Cigarettes Q uit: 1961 [facility] Utilities Answer Date Recorded In the past 12 months has [employer], gas, oil, or water company threatened to [...] week 09/16/2023 How often do you attend [facility] or sabianism services? Never 09/16/2023 Do you belong to any clubs o r organizations such as anglican groups, unions, fraternal or athletic groups, or [...] care, and heating? Not very hard 09/16/2023 [facility] [place] [facility] Occupat ional [facility] - Occupational Stress [...] any time in the past 12 m [facility], were you homeless or living in a [...] on filedocumented in this encounter Care Teams Steam Generating Powerplant Mechanic Relationship Specialty Start Date End Date No, Physician PCP - General 09/16/23 01/17/24 documented as of this encounter
--- OUTSIDE RECORDS SUMMARY | 2024-04-02 06:33 | XMS_ITS | Encounter Summary ---
Author Organization [facility] Healthcare Address [address] [place] [address] Care Team Providers Care Systems Engineer Name Role Phone No, Physician Primary Care Provider [phone] Reason for Visit * Reason Comments Fall [...] Expiration Date Visits Re quested Visits Authorized [id number] 1 1 Encounter Details Date Type Department Care Team (Late st Contact Info) Description 09/16/2023 11:32 AM CDT - 09/16/2023 3:02 PM CDT Surgery [facility] Operating Room [address] [place] [address] Hammad Taylor MD [address] [facility] [address]/6B[address] [place] [address] INTRAMEDULLARY NAIL - TIBIAL and FIBULA Surgery Details Date/Time Status Location OR Service Patient Class Case Class Case Type Trauma Case? 09/16/2023 11:32 AM Posted [facility] OR POD 2 204 Orthopaedics Emergency Urgent - 24 hours Panel 1 Procedure LRB Anes Op Region Wound Class Comments INTRAMEDULLARY NAIL - TIBIAL and FIBULA Left General Leg Lower Class II - Clean Contaminated Surgeon Surgeon Role Service Panel Zoila Segura MD Resident - Assisting Ort hopaedics 1 Hammad Taylor MD Primary Orthopaedics 1 Hammad Taylor MD Primary Orthopaedics 1 Otto Dotson MD Resident - Assisting Orthopaedics 1 Case Notes [id number] documented in this encounter Social History Tobacco Use Types Packs/Day Years Used Date Smoking Tobacco: Former Cigarettes Q uit: 1964 Tobacco Cessation:Counseling Given: Not Answered [facility] Utilities Answer Date Recorded In the [...] How often do you attend chur or adventism services? Never 09/16/2023 Do you belong to any clubs o r organizations such as protestant groups, unions, fraternal or athletic groups, or [...] care, and heating? Not very hard 09/16/2023 [facility] [place] [facility] Occupat ional Health - Occupational Stress [...] any time in the past 12 m [facility], were you homeless or living in a [...] Sign Reading Time Taken Comments Blood Pressure 125/72 09/16/2023 12:00 PM CDT Pulse 105 09/16/2023 12:00 PM CDT Temperature 36 ??C (96.8 ??F) 09/16/2023 11:15 AM CDT Respiratory Rate 16 09/16/2023 12:00 PM CDT Oxygen Saturation 98% 09/16/2023 12:00 PM CDT Inhaled Oxygen Concentration - - Weight 72.6 kg (160 lb) 09/16/2023 2:45 AM CDT Height 165.1 cm (5' 5 ) 09/16/2023 2:45 AM CDT Body Mass Index 30.23 09/23/2023 8:55 AM CDT documented in this encounter Discharge Summaries * Penny Luna, PERFORMANCE MANAGER - 09/29/2023 1:43 PM CDT Images from the original note were not included. [facility] Trauma C Service Inpatient Discharge Summary This [...] management of your chronic medical issues - [facility] has a primary care clinic that may be able to help if you don't have a primary care doctor - call [phone] to see if they can establish care. [...] DVT; (+) superficial vein thrombus - 09/25: Guidiville J and upright cspine Xrs completed - 09/26: BUE motor exam stable. Cont PT/OT - 09/28: Doing well, tolerating diet and activity with well controlled pain; Guidiville J in place; PMNR c/s for recs [...] faint Care Instructions: Precautions: cervical precautions Immobilization: Guidiville J Activity: Up ad guy Therapy: PT/OT for OOB/mobilization as tolerated Follow-Up: Patient has follow up scheduled on 10/16/[address] Rodriguez located at [facility] 12A. Care Instructions: Incentive Spirometer [...] surgical dressing until follow up with orthopedi Sutures/Winters: Will be removed 3 weeks after surgical date. (10/07/2023) Please include on discharge orders if patient is going to a facility. Diet: Regular Additional Needs: Bone health referral at discharge Follow-Up: Patient has follow up scheduled on 10/06/[address] Taylor located at [facility]6A Follow up Contact Information for Follow-ups No, Physician Relationship: PCP - General Next Steps: Follow up Future Appointments Date Time Provider Department Center 10/06/2023 8:00 AM [facility] 10/16/2023 1:00 PM Caron Main MD [facility] 10/16/2023 3:50 PM Hans Rodriguez MD [facility]12A OS 11/13/2023 8:10 AM Hans Rodriguez MD [...] Departure Means Destination Comment s Discharge to [facility] documented in this encounter Progress Notes * Carolnie Jarquin, RN - 09/29/2023 1:45 PM CDT 09/29/23 1343 Discharge Summary Discharge Disposition [facility] facility (short term care) Specify Facility [facility] Facility Contact Number [phone] Discharge Records Transfer Form Completed;Chart Copied Anticipated discharge level of care [facility] facility Actual Discharge Level of Care [facility] facility Does Actual Level of Care Match Care Team Recommendation? Yes Post Acute Care Plan Home Care Services N/A OP Services N/A DME N/A Post Acute Care Facility N/A Discharge Additional Assistance Does the patient need discharge transport arranged? Yes Type of Transportation Ambulance Has discharge transport been arranged? Yes Details of Transportation [facility] Trip #[id number] D/C Transport Anticipated Date 09/29/23 D/C Transport [...] at this time. Patient has been acceptedto [facility]. CM spoke with the patient/family, [...] Patient/family informed patient may require ambulance transport. credit and collection manager informed patient/family that even if the patient's insurance benefit includes ambulance transport, it may not cover the full cost of the transportation. The patient may be responsible for any [id number]-[id number] cost, includingmileage beyond the nearest appropriate facility. [...] IM letter right. CM confirmed with [facility] liaison, that bed was available and collected the following information: Report: [phone] (Adi ramirez RN) Room: 515A CM relayed all information to the team. CM faxed DC summary to facility as requested. CM noted EMS scheduled pickup time to liaison. All parties agreeable to DC. MINESH Vernon cushion spring assembler * Naheed Cruz MD - 09/29/2023 8:40 AM CDT Images from the original note were not included. [facility] Trauma C Service- Floor Daily Progress Note [...] LILA, Naheed Cruz MD, 5,000 Units at 09/29/23 [...] Constitutional: no acute distress, awake/conversant, pleasant HEENT: Guidiville J collar in place; normocephalic/atraumatic CV: tachycardic, [...] DVT; (+) superficial vein thrombus - 09/25: Guidiville J and upright cspine Xrs completed - 09/26: BUE motor exam stable. Cont PT/OT - 09/28: Doing well, tolerating diet and activity with well controlled pain; Guidiville J in place; PMNR c/s for recs [...] PM CDT Spiritual Care Ramon Meléndez 09/28/23 [id number] 09/28/23 1900 Time Spent Start Time 1820 Stop Time 1835 Time Calculation (min) 15 min Patient Spiritual Assessment Spirituality Assessed Yes Orthodoxy Affiliation Mormonism Active in Pentecostalism Yes Clinical Encounter Type Visited With Patient and family together Response Type Routine visit Routine Visit Follow-up Reason for visit Support Outcomes and Progress Aligning care with patient's values Achieved Preserve dignity and respect Achieved Demonstrating care and respect Achieved Arielle affirmation Achieved Establish rapport and connectedness Achieved Sense of peace Achieved Interventions Interventions Offer emotional support;Offer spiritual/adventism support;Prayer;Active listening * Carmencita FunezAlon - 09/28/2023 2:26 PM CDT Physical Therapy [...] treatment team and contact the PT or SUPERVISOR BELT AND LINK ASSEMBLY currently assigned to this patient. If a physical therapy clinician is not assigned to this patient, please call [phone]. 09/28/23 1426 PT Last Visit Session Type Treatment PT Received On 09/28/23 Safe Environment Arm band checked;Patient found in supine;Session completed bedside;Gait belt utilized for all out of bed mobility Subjective Agreeable to Therapy Family/Caregiver Present No Precautions Precautions Cervical spine;Fall risk Weight Bearing Restrictions Yes RLE Weight Bearing WBAT LLE Weight Bearing NWB Braces/Orthoses Cervical collar;Other ([place] J, SLS LLE) Precaution Handout Issued No [...] the discharge summary Recommendation/Plan PT Recommendation/Plan (S) Longterm Facility Patient at high risk for Falls;Readmission;Injury [...] not assigned to this patient, please call [phone]. 09/28/23 1004 General Session Type Treatment OT Received On 09/28/23 Safe Environment Arm band checked;Patient found in supine;Session completed bedside;Gait belt not utilized, see comment (no OOB mobility) Subjective Agreeable to Therapy Family/Caregiver Present No Precautions Precautions Cervical spine;Fall risk Weight Bearing Restrictions Yes LLE Weight Bearing NWB Braces/Orthoses Cervical collar;Other (Guidiville J; SLS LLE) Precaution Handout Issued No [...] the discharge summary Recommendation/Plan OT Recommendation (S) Longterm Facility Patient at high risk for Falls;Readmission;Injury [...] from the original note were not included. [facility] Trauma C Service- Floor Daily Progress Note [...] Constitutional: no acute distress, awake/conversant, pleasant HEENT: Guidiville J collar in place; normocephalic/atraumatic CV: tachycardic, [...] (+) superficial vein thrombus - 09/25: [x] Guidiville J and [x]upright cspine XRs - 09/26: [...] Progress Note Admit Date: 09/16/2023 Hospital Day: [facility] Dx: C/f cervical myelopathy Relevant PMHx: [...] 4-/5 4/5 Wrist flexion (C7) 4-/5 4/5 Activity Aid (C8) 4-/5 4/5 Interosseous of hand (T1) [...] bilateral C4-5 foraminotomies. Precautions: cervical precautions Immobilization: Guidiville J Activity: Up ad guy DVT ppx: [...] on 10/16/[address] Rodriguez located at [address] Nette Middleton MD, PhD Department of Orthopaedic Surgery PGY-1 [facility] in [facility] Please call with questions during daytime. See below for overnight issues. If you know the resident's name on the appropriate orthopaedic surgery team, please use [email or web address] to page resident directly. If questions arise and the appropriate resident can't be reached or you are calling overnight, please contact [phone] ([place] 7:30 PM - 6:30 AM - Floor Resident) or [phone] (24 hours/day - Consult Resident) Cosigned by Hans Rodriguez MD at 09/28/2023 8:00 AM CDT * Naheed Cruz MD - 09/27/2023 1:13 PM CDT Images from the original note were not included. [facility] Trauma C Service- Floor Daily Progress Note [...] Nightly, Hannah Chun NP, 50 mg at 020 Past Medical: No [...] Constitutional: no acute distress, awake/conversant, pleasant HEENT: Guidiville J collar in place; normocephalic/atraumatic CV: tachycardic, [...] (+) superficial vein thrombus - 09/25: [x] Guidiville J and [x]upright cspine XRs - 09/26: BUE motor exam stable. Cont PT/OT Pulmonary nodule Assessment & Plan - CT C/A/P (6/5): Indeterminate right lower lobe pulmonary nodule with [...] Admit Date: 09/16/2023 Hospital Day: 10 [facility] Dx: C/f cervical myelopathy Relevant PMHx: None per patient Procedure(s): 09/20/2023 - C2-7 PSF w/ C3-6 decompression and bilateral C4-5 foraminotomies Interval History: 09/26/23: POD6. AFVSS. NAEON. Voiding. DVT ppx restarted. H/H: 9.2/29.1, WBC: 12.2, Cr: 0.49. Exam:BUE 4-/5 deltoid, BUE 4/5 biceps/triceps/WF/WE/IO. SILT throughout. RLE IP/Q 3/5 (limited by participation), o/w /, LLE limited by splint. SILT throughout BLE. [...] 4/5 4/5 Wrist flexion (C7) 4/5 4/5 Activity Aid (C8) 4/5 4/5 Interosseous of hand (T1) [...] Wound Care: Maintain surgical dressing until follow-up Sutures/Winters: Will be removed 3 weeks after surgical [...] on 10/06/[address] Taylor located at [facility] SPINE Assessment/Plan: 78 y.o. female with above injury/deformity. Patient is now status post C2-7 PSF w C3-6 decompression and bilateral C4-5 foraminotomies. Precautions: cervical precautions Immobilization: Guidiville J Activity: Up ad guy DVT ppx: [...] on 10/16/[address] Rodriguez located at [address] Fernando Barrios MD, [facility] Orthopaedic Surgery PGY-2 Please call with questions during daytime. See below for overnight issues. If you know the resident's name on the appropriate orthopaedic surgery team, please use [email or web address] to page resident directly. If questions arise and the appropriate resident can't be reached or you are calling overnight, please contact [phone] ([place] 7:30 PM - 6:30 AM - Floor Resident) or [phone] (24 hours/day - Consult Resident) Cosigned by Hans Rodriguez MD at 09/26/2023 7:43 PM CDT Associated attestation - Hans Rodriguez MD - 09/26/2023 7:43 PM CDT I personally examined Ms. Domínguez this morning. I agree with the assessment and plan by Dr. Barrios. * Bruce Jack MD - 09/26/2023 5:16 AM CDT Images from the original note were not included. [facility] Trauma C Service- Floor Daily Progress Note [...] (Tylenol, Robaxin, Oxy). UOP 300 + 2x. Jabmh6g. BMP stable. No DVT RUE on Duplex. [...] Constitutional: no acute distress, awake/conversant, pleasant HEENT: Guidiville J collar in place; normocephalic/atraumatic CV: tachycardic, [...] (+) superficial vein thrombus - 09/25: [x] Guidiville J and [x]upright cspine XRs Pulmonary nodule [...] not assigned to this patient, please call [phone]. 09/25/23 9912 General Session Type Treatment OT Received On 09/25/23 Safe Environment Arm band checked;Patient found in supine;Gait belt not utilized, see comment (no OOB mobility on this date) Subjective Agreeable to Therapy Family/Caregiver Present No Precautions Precautions Fall risk Weight Bearing Restrictions Yes LLE Weight Bearing NWB Braces/Orthoses Cervical collar (Guidiville J) Precaution Comments verbally reviewed precautions with [...] this the discharge summary Recommendation/Plan OT Recommendation Longterm Facility Patient at high risk for Falls;Readmission;Injury [...] from the original note were not included. [facility] Trauma C Service- Floor Daily Progress Note [...] injection 5,000 Units, 5,000 Units, subcutaneous, Q8H [facility], Naheed Cruz MD, 5,000 Units at 09/25/23 [...] Constitutional: no acute distress, awake/conversant, pleasant HEENT: Guidiville J collar in place; normocephalic/atraumatic CV: tachycardic, palpable radial pulses bilaterally, warm and well perfused Resp: breathing unlabored on room air Abd: soft, non-tender, non-distended. No rebound or guarding Ext: warm, moves all extremities well, no cyanosis/edema, LLE in orthopedic dressing Neuro: alert and oriented to person/place/date, motor/sensory grossly intact Labs/Imaging: Recent Labs Lab Units 09/24/23211509/23/23 16009/22/232003 WBC K/cumm 12.2* 13.9* 10.6* HEMOGLOBIN g/dL [...] augmentation 80-95 for 48h postop - Needs Guidiville J and upright cspine XRs - 09/22: [...] on separately billable procedures. Ami Akins MD [facility] Acute and Critical Care Surgery [facility] * Klever Phillips MD - 09/24/2023 [...] 09/22 PM: - Ortho spine: q3h neurochecks, Guidiville J, OOBTC/PT as tolerated, upright c-spine XR [...] IVrelated swelling. Sensation equal at shoulders. Hand elevator service technician L 3/5 R 2/5 apparently limited by [...] 09/19 -Ortho spine: q4h neurochecks, transfer to [facility] floor - PT/OT consult #at risk for [...] Note Admit Date: 09/16/2023 Hospital Day: 8 [facility] Dx: C/f cervical myelopathy Relevant PMHx: [...] 4/5 4/5 Wrist flexion (C7) 4/5 4/5 Activity Aid (C8) 4/5 4/5 Interosseous of hand (T1) [...] bilateral C4-5 foraminotomies. Precautions: cervical precautions Immobilization: Guidiville J Activity: Up ad guy DVT ppx: [...] on 10/16/[address] Rodriguez located at [address] Nette Middleton MD, PhD Department of Orthopaedic Surgery PGY-1 [facility] in [facility] Please call with questions during daytime. See below for overnight issues. If you know the resident's name on the appropriate orthopaedic surgery team, please use [email or web address] to page resident directly. If questions arise and the appropriate resident can't be reached or you are calling overnight, please contact [phone] (Thu- 7:30 PM - 6:30 AM - Floor Resident) or [phone] (24 hours/day - Consult Resident) Cosigned by Hans Rodriguez MD at 09/24/2023 11:41 AM CDT * Isidro Gomes MD - 09/24/2023 6:24 AM CDT Images from the original note were not included. [facility] Trauma C Service- Floor Daily Progress Note [...] mg, 5 mg, oral, Q4H PRN, Klever Phililps MD, 5 mg at 09/24/23 0404 polyethylene [...] shifts: In: 1040 [P.O.:990; IV Piggyback:50] Out: 1960 [Urine:1940; Drains:20] I/O this shift: In: 640 [...] augmentation 80-95 for 48h postop - Needs Guidiville J and upright cspine XRs - 09/22: [...] medications/tests/procedures, Referring & communicating with other health pediatric critical care nurse, and Independent inte rpretation of results 45 [...] on separately billable procedures. Ami Akins MD -[facility], [facility] Acute and Critical Care Surgery [facility] * Plog, Trevor Celestin MD PhD - [...] exceptfor waxing and waning C5. Interval History: 12 AM -Ortho spine: q3h neurochecks, Guidiville J, OOBTC/PT as tolerated, upright c-spine XR [...] IVrelated swelling. Sensation equal at shoulders. Hand elevator service technician L 3/5 R 2/5 apparently limited by [...] as documented in the resident's/fellow's note.. * Hananh Ludwig OT - 09/23/2023 8:45 AM CDT [...] not assigned to this patient, please call [phone]. 09/23/23 8042 General Session Type Re-Evaluation (s/p cervical spinal fusion) OT Received On 09/23/23 Safe Environment Arm band checked Subjective Agreeable to Therapy Family/Caregiver Present No Precautions Precautions Fall risk Weight Bearing Restrictions Yes LLE Weight Bearing NWB Braces/Orthoses Cervical collar (Guidiville J) Precaution Handout Issued No Precaution Comments [...] Assessment RUE Assessment X RUE Comments Decreased elevator service technician strength noted LUE Assessment LUE Assessment X LUE Comments Decreased elevator service technician strength noted Cognition Arousal/Alertness Alert;Appropriate responses to [...] this the discharge summary Recommendation/Plan OT Recommendation Longterm Facility Patient at high risk for Falls;Readmission;Injury [...] Note Admit Date: 09/16/2023 Hospital Day: 7 [place] Dx: C/f cervical myelopathy Relevant PMHx: None [...] 4/5 4/5 Wrist flexion (C7) 4/5 4/5 Activity Aid (C8) 4/5 4/5 Interosseous of hand (T1) [...] and bilateral C4-5 foraminotomies. Precautions: n/a Immobilization: Guidiville Marky Activity: Up ad guy DVT ppx: Holding [...] MD, PhD Department of Orthopaedic Surgery PGY-1 [facility] Please call with questions during daytime. See below for overnight issues. If you know the resident's name on the appropriate orthopaedic surgery team, please use [email or web address] to page resident directly. If questions arise and the appropriate resident can't be reached or you are calling overnight, please contact [phone] ([place]- 7:30 PM - 6:30 AM - Floor Resident) or [phone] (24 hours/day - Consult Resident) Cosigned by [...] of the exam by Dr. Middleton. * lKever Phillips MD - 09/23/2023 7:14 AM CDT Surgical ICU Daily Progress Team: Red AM 1 Subjective Patient is a 78 y.o. female admitted on 09/16/2023 2:23 AM. Patient presented 09/15 to ED after ground level fall, found to have L distal tib/fib fracture s/p IMN repair with ortho on 6/5. Found to have possibly worsening upper extremity weakness, MRI findings of spinal cord deformity, and ultimately went to OR with ortho spine for spinal decompression. In OR patient had stable neuromonitoring exceptfor waxing and waning C5. Interval History: 6/ AM -Ortho spine: q3h neurochecks, Guidiville J, OOBTC/PT as tolerated -PE weaned -TTOU [...] IVrelated swelling. Sensation equal at shoulders. Hand elevator service technician L 3/5 R 2/5 apparently limited by [...] 09/19 -Ortho spine: q3h neurochecks, transfer to [facility] OU - PT/OT consult #at risk for [...] Guerrier to gravity Electrolyte abnormality Replace PRN 6/12 AM: UOP 0.95 Heme: - Hgb > 7 6 AM: H/H 8.4/27.3 from 9.1/28.1 DVT PPX: [...] EMMANUEL, MS Department of Orthopaedic Surgery, PGY1 [facility] in [place] 09/23/23 7:14 AM Cosigned by Amy Juárez MD at 10/10/2023 4:08 PM CDT * Ayesha Liu MD - 09/23/2023 5:05 AM CDT Images from the original note were not included. [facility] Trauma C Service- Floor Daily Progress Note [...] Amy Lara NP, 1,000 mg at 09/22/23 215 benzocaine-menthoL (CHLORASEPTIC) lozenge 1 lozenge, 1 lozenge, mouth/throat, Q2H PRN, Xiao Gomez MD, 1 lozenge at 09/22/232101 dextrose 5% and Lactated Ringer's infusion, 10 mL/hr, intravenous, Continuous, Shabnam Farmer NP, Stopped at 09/22/23 1700 enoxaparin (LOVENOX) syringe 30 mg, 30 mg, subcutaneous, Q12H LILA, Klever Phillips MD, 30 mgat 09/22/23 210 gabapentin (NEURONTIN) capsule 200 mg, 200 mg, oral, BID, Xiao Gomez MD, 200 mg at 09/22/23 204 HYDROmorphone (DILAUDID) injection 0.2 mg, 0.2 mg, [...] Nightly, Hannah Chun NP, 50 mg at 048 Past Medical: No past medical history on file. Surgical History: History reviewed. No pertinent surgical history. Is&Os: I/O last 2 completed shifts: In: 6.2 [P.O.:1080; I.V.:986.2; IV Piggyback:50] Out: 1960 [Urine:1930; [...] agrees with it. Electronically signed by: Inocencio S. Shimony, M.D. I have independently reviewed and interpreted [...] augmentation 80-95 for 48h postop - Needs Guidiville J and upright cspine XRs - 09/22: [...] medications/tests/procedures, Referring & communicating with other health pediatric critical care nurse, and Independent inte rpretation of results 45 [...] on separately billable procedures. Ami Akins MD [facility], [facility] Acute and Critical Care Surgery [facility] [employer] * Gama Arteaga - 09/22/2023 8:45 PM CDT Spiritual Care Note: Chaplain Gama Arteaga M.Div., [facility] [phone] 09/22/23 1745 Time Spent Start Time 1745 [...] -Ortho spine: q3h neurochecks, MAP goals liberated, Guidiville J, OOBTC/PT as tolerated -MAP 70-100s on PE wean -D/c a-line pending PE wean -Dilaudid CONSULTING SOLUTION DIRECTOR to oxy q4h PRN -Start LVX 09/21 [...] IVrelated swelling. Sensation equal at shoulders. Hand elevator service technician L 3/5 R 2/5 apparently limited by [...] 09/19 -Ortho spine: q3h neurochecks, transfer to [facility] OU - PT/OT consult #at risk for [...] Progress Note Admit Date: 09/16/2023 Hospital Day: [facility] Dx: C/f cervical myelopathy Relevant PMHx: [...] 4/5 4/5 Wrist flexion (C7) 4/5 4/5 Activity Aid (C8) 4/5 4/5 Interosseous of hand (T1) [...] and bilateral C4-5 foraminotomies. Precautions: n/a Immobilization: Guidiville Marky Activity: Up ad guy DVT ppx: Holding [...] MD, PhD Department of Orthopaedic Surgery PGY-1 [facility] in [facility] Please call with questions during daytime. See below for overnight issues. If you know the resident's name on the appropriate orthopaedic surgery team, please use [email or web address] to page resident directly. If questions arise and the appropriate resident can't be reached or you are calling overnight, please contact [phone] ([place]- 7:30 PM - 6:30 AM - Floor Resident) or [phone] (24 hours/day - Consult Resident) Cosigned by [...] -Ortho spine: q3h neurochecks, MAP goals liberated, Guidiville J, OOBTC/PT as tolerated -MAP 70-100s on PE wean -D/c a-line pending PE wean -Dilaudid CONSULTING SOLUTION DIRECTOR to oxy q4h PRN -Start LVX 10 PM Replete Mg Objective Physical Exam: Physical [...] IVrelated swelling. Sensation equal at shoulders. Hand elevator service technician L 3/5 R 2/5 apparently limited by [...] - Robaxin 750 QID lila - dilaudid CONSULTING SOLUTION DIRECTOR 0.2/10m/1.2mg 09/21: Switch dilaudid CONSULTING SOLUTION DIRECTOR to oxy 5mg q4h PRN #upper extremity [...] continue MAP > 80 through 48h postop, Guidiville J collar to be fitted, OOBTC/PT as [...] evaluation for placement Code status: full code SAlon Jose Phillips MD, EMMANUEL, MS Department of Orthopaedic Surgery, PGY1 [facility] in [place] 09/22/23 7:12 AM Cosigned by Amy Juárez MD at 10/10/2023 4:08 PM CDT * Isidro Gomes MD - 09/22/2023 6:02 AM CDT Images from the original note were not included. [facility] Trauma C Service- Floor Daily Progress Note [...] augmentation parameters today and wean naman Needs Guidiville J and upright cspine XRs per ortho [...] syringe 30 mg, 30 mg, subcutaneous, Q12H [facility], Hannah Chun NP, 30 mg at 09/18/232044 [...] injection 1-3 Units, 1-3 Units, subcutaneous, Q4H [facility], Gwendolyn Bee MD labetaloL (NORMODYNE,TRANDATE) injection 20 [...] not displayed. Recent Labs Lab Units 09/19/23 5098 PROTIME (PT) sec 14.4* INR 1.26* MRI [...] augmentation 80-95 for 48h postop - Needs Guidiville J and upright cspine XRs Pulmonary nodule [...] medications/tests/procedures, Referring & communicating with other health pediatric critical care nurse, and Independent inte rpretation of results 45 [...] transfer out of ICU from Trauma standpoint. MD Marylou Kong-[facility], [facility] Acute and Critical Care Surgery [facility] * Sterling Patrick MD - 09/21/2023 8:02 [...] continue MAP > 80 through 48h postop, Guidiville J collar to be fitted, OOBTC/PT as tolerated 10 PM Replete Mg Objective Physical Exam: Physical [...] IVrelated swelling. Sensation equal at shoulders. Hand elevator service technician L 3/5 R 2/5 apparently limited by [...] - Robaxin 750 QID lila - dilaudid CONSULTING SOLUTION DIRECTOR 0.2/10m/1.2mg #upper extremity weakness #cervical myelopathy # [...] continue MAP > 80 through 48h postop, Guidiville J collar to be fitted, OOBTC/PT as [...] treatment team and contact the PT or SUPERVISOR BELT AND LINK ASSEMBLY currently assigned to this patient. If a physical therapy clinician is not assigned to this patient, please call [phone]. 09/21/23 1336 PT Last Visit Session Type Treatment PT Received On 09/21/23 Safe Environment Arm band checked;Session completed bedside;Patient found in supine;Gait belt not utilized, see comment (no OOB mobility performed this visit) Subjective Agreeable to Therapy Family/Caregiver Present Yes (Daughter) Precautions Precautions Fall risk Weight Bearing Restrictions Yes LLE Weight Bearing NWB Braces/Orthoses Cervical collar (Guidiville J on throughout session) Precaution Handout Issued [...] this the discharge summary Recommendation/Plan PT Recommendation/Plan Longterm Facility Patient at high risk for Readmission;Falls;Injury [...] from the original note were not included. [facility] Trauma C Service- Floor Daily Progress Note [...] Labs/Imaging: Recent Labs Lab Units 09/20/23202609/20/23 1534 09/20/2352 09/19/238 WBC K/cumm 10.7* 9.9 -- 9.5 HEMOGLOBIN, POC g/dL -- -- 9.4* -- HEMOGLOBIN g/dL 9.1* 9.8* -- 9.8* HEMATOCRIT % 28.2* 30.7* -- 30.8* HEMATOCRIT POC % -- -- 28.0* -- PLATELETS K/cumm 270 277 -- 270 Recent Labs Lab Units 09/21/23 0734 09/21/23 0347 09/21/23 0026 09/20/23202609/20/23 1600 09/20/23 1534 09/20/2352 09/19/232357 SODIUM mmol/L -- -- -- 137 -- [...] medications/tests/procedures, Referring & communicating with other health pediatric critical care nurse, and Independent inte rpretation of results 45 [...] on separately billable procedures. Ami Akins MD -[facility] Acute and Critical Care Surgery [facility] [employer] * Nette Middleton MD PhD - 09/21/2023 7:53 AM CDT Orthopaedic Spine Service Daily Progress Note Admit Date: 09/16/2023 Hospital Day: [facility]/Real Dx: C/f cervical myelopathy Relevant PMHx: None [...] 4/5 4/5 Wrist flexion (C7) 4/5 4/5 Activity Aid (C8) 4/5 4/5 Interosseous of hand (T1) [...] Labs Lab Units 09/21/23 0734 09/21/23 0026 09/20/237 09/20/23 0952 09/19/23 2358 09/16/23 2259 09/16/23 [...] and bilateral C4-5 foraminotomies. Precautions: n/a Immobilization: Guidiville J Activity: Up ad guy DVT ppx: [...] MD, PhD Department of Orthopaedic Surgery PGY-1 [facility] in [facility] Please call with questions during daytime. See below for overnight issues. If you know the resident's name on the appropriate orthopaedic surgery team, please use [email or web address] to page resident directly. If questions arise and the appropriate resident can't be reached or you are calling overnight, please contact [phone] ([place]- 7:30 PM - 6:30 AM - Floor Resident) or [phone] (24 hours/day - Consult Resident) Cosigned by [...] continue MAP > 80 through 48h postop, Guidiville J collar to be fitted, OOBTC/PT as [...] IVrelated swelling. Sensation equal at shoulders. Hand elevator service technician L 3/5 R 2/5 apparently limited by [...] - Robaxin 750 QID lila - dilaudid CONSULTING SOLUTION DIRECTOR 0.2/10m/1.2mg #upper extremity weakness #cervical myelopathy # [...] continue MAP > 80 through 48h postop, Guidiville J collar to be fitted, OOBTC/PT as [...] further evaluation when more awake - Reassessment /10 PM notable for AO x 3 patient, [...] Note Admit Date: 09/16/2023 Hospital Day: 4 [facility] Dx: C/f cervical myelopathy Relevant PMHx: [...] the appropriate orthopaedic surgery team, please use [email or web address] to page resident directly. If questions arise and the appropriate resident can't be reached or you are calling overnight, please contact [phone] ([facility] 7:30 PM - 6:30 AM - Floor Resident) or [phone] (24 hours/day - Consult Resident) Cosigned by [...] Chun NP - 09/19/2023 1:26 PM CDT [facility] Trauma C Service- Floor Daily Progress Note [...] medications/tests/procedures, Referring & communicating with other health pediatric critical care nurse, and Independent inte rpretation of results 45 [...] not make much difference in her intermediate teacher recovery. Jennifer plans to see her mother [...] Wound Care: Maintain surgical dressing until follow-up Sutures/Winters: Will be removed 3 weeks after surgical [...] on 10/06/[address] Taylor located at [facility] Chon Miner MD Orthopaedic Surgery PGY2 Please call with questions during daytime. See below for overnight issues. If you know the resident's name on the appropriate orthopaedic surgery team, please use [email or web address] to page resident directly. If questions arise and the appropriate resident can't be reached or you are calling overnight, please contact [phone] ([facility] 7:30 PM - 6:30 AM - Floor Resident) or [phone] (24 hours/day - Consult Resident) I personally [...] and wrist extension bilaterally, 3/5 triceps, 3/5 elevator service technician, and 2/5 interossei bilaterally. She was able [...] clots, and anesthesia related complications. * Hannah Chun, LUIGI - 09/18/2023 2:30 PM CDT Images from [...] order MRI c spine Disposition update from DCAM meetings: attended in person. Not medically ready [...] Cruz MD - 09/18/2023 8:00 AM CDT [facility] Trauma C Service- Floor Daily Progress Note [...] LILA, Marcos Salazar MD, 10 mL at 09/18/23 0553 sodium [...] and Critical Care Surgery Department of Surgery [facility] ACCS Office: [phone] * Alicia Mills OT - 09/18/2023 7:56 [...] not assigned to this patient, please call [phone]. 09/18/23 9292 General Chart Reviewed Yes Session Type Evaluation [...] Equipment-Currently Using None Prior Function Level of [place] Independent with ADLs;Independent functional transfers;Independent with ambulation;Independent with homemaking with ambulation Lives With Alone Receives Help From Spouse/Significant other (SUPERVISOR BELT AND LINK ASSEMBLY from daughter) Driving Yes Mode of Transportation [...] name and address after me Kirk Goodman [address] [place] [address] Without looking at the clock, tell me [...] the discharge summary Recommendation/Plan OT Recommendation (S) Longterm Facility Patient at high risk for Falls;Readmission;Injury [...] time spent in any separately reportable services. mAy Lara NP Section of Acute and Critical [...] treatment team and contact the PT or SUPERVISOR BELT AND LINK ASSEMBLY currently assigned to this patient. If a physical therapy clinician is not assigned to this patient, please call [phone]. Multi-Disciplinary Problems (from Physical Therapy) Active Problems [...] reviewed precautions Home Living Type of Home [facility] Home Layout One level Home Access Stairs to enter without rails Entrance Stairs-Rails None Entrance Stairs-Number of Steps 2 Home Mobility Equipment-Available 4-Wheeled walker Home Mobility Equipment-Currently Using 4-Wheeled walker Additional Comments Use of 4WW at baseline Prior Function Level of [place] Independent functional transfers;Independent with ambulation Lives With [...] this the discharge summary Recommendation/Plan PT Recommendation/Plan Longterm Facility Patient at high risk for Readmission;Falls;Injury [...] the appropriate orthopaedic surgery team, please use [email or web address] to page resident directly. If questions arise and the appropriate resident can't be reached or you are calling overnight, please contact [phone] ([place]- 7:30 PM - 6:30 AM - Floor Resident) or [phone] (24 hours/day - Consult Resident) Cosigned by Diogo Lao MD at 09/18/2023 10:14 AM CDT * Otto Dotson MD - 09/16/2023 6:39 PM CDT Ortho Trauma Post-Op Note Diagnosis: L distal tibia and fibula fractures Surgical Procedure: Procedure(s) (LRB): INTRAMEDULLARY NAIL - TIBIAL and FIBULA (Left) Subjective Aidee Sang seen post-operatively in PACU. Patient is awake [...] Wound Care: Maintain surgical dressing until follow-up Sutures/Winters: Will be removed 3 weeks after surgical [...] Dotson MD Department of Orthopaedic Surgery, PGY-3 [facility] in [place]/[facility] Please use [email or web address] to find phone number. Cosigned by Hammad [...] syringe 30 mg 30 mg subcutaneous Q12H [facility] famotidine (PEPCID) tablet 20 mg 20 mg oral Daily insulin lispro (HumaLOG, ADMELOG) 100 unit/mL injection 1-3 Units 1-3 Units subcutaneous Q4H [facility] lidocaine (ASPERCREME) 4 % patch 2 patch 2 patch transdermal Q24H magnesium oxide (MAG-OX) tablet 800 mg 800 mg oral Daily methocarbamoL (ROBAXIN) tablet 750 mg 750 mg oral QID polyethylene glycol (MIRALAX) packet 17 g 17 g oral Daily senna-docusate (PERICOLACE) 8.6-50 mg per tablet 1 tablet 1 tablet oral BID sodium chloride 0.9% flush 0.5-20 mL 0.5-20 mL intra-catheter Q8H [facility] traZODone (DESYREL) tablet 50 mg 50 mg [...] Left Radial (Active) Placement Date/Time: 09/20/23 (c) 0906 Size: 20 G Orientation: Left Location: Radial [...] Type: Bulb Size (Fr.): 15 Fr. Drain [place] Size (mL): 100 mL Number of days: [...] plan with the ICU team and other medical/business continuity consultant staff, making frequent assessments and decisions [...] plan with the ICU team and other medical/business continuity consultant staff, making frequent assessments and decisions [...] plan with the ICU team and other medical/business continuity consultant staff, making frequent assessments and decisions [...] plan with the ICU team and other medical/business continuity consultant staff, making frequent assessments and decisions [...] plan with the ICU team and other medical/business continuity consultant staff, making frequent assessments and decisions [...] Name 09/18/23 1803 Procedures Time in 1800 - Time out 1805 - Time Calculation (min) 5 min - Vascular Access Procedures Canceled on arrival - Canceled on arrival Procedure canceled;Other (comment) PIV [...] SLP - 09/18/2023 8:49 AM CDTAssociated Order(s): SALVAGE WORKER EVALUATE AND TREAT Speech-Language Pathology: Clinical Bedside Swallow [facility]/PM 78 y.o. female with OA of bilateral knees, uses walker at baseline presenting to the Emergency Department c/o LLE pain with tib/fib fx from H. She had a mechanical fall 2 days [...] above fracture. Was transferred for further evaluation. /5- INTRAMEDULLARY NAIL - TIBIAL and FIBULA (Left) [...] 09/18/23 General Observations: Swallow evaluation completed on 0. Pt awake, in bed upon SALVAGE WORKER arrival in room. PCT present and assisting [...] reports no difficulty with mastication without dentures. SALVAGE WORKER assist with feeding pt breakfast. Pt observed [...] Aspiration Risk: No aspiration risk (170-200) Plan SALVAGE WORKER Frequency of Services during current admission: One-time visit (Discharge from this service) SALVAGE WORKER Recommendation (Add'l Services): No further SALVAGE WORKER indicated Further Assessment/Follow up Indicated: Recommendations: (No [...] 9 CREATININE mg/dL 0.49* 0.46* 0.45* 0.42* [id number] mL/min/1.73 m2 >90 >90 >90 >90 CALCIUM mg/dL 8.5 8.5 8.4* 8.0* PHOSPHORUS PLASMA mg/dL -- 3.3 3.8 1.9* MAGNESIUM mg/dL -- 1.9 1.9 1.8 Recent Labs Lab Units 09/25/23225009/25/23 1406 09/25/23 0725 09/24/23 2116 09/23/23 1604 09/22/232003 GLUCOSE mg/dL 102 -- [...] of Weight Used for Estimated Protein : [place] Dietary Orders (From admission, onward) Start Ordered 09/23/23 1100 Oral Nutrition Supplements ([facility]) Select Supplement: VARY/multiple Flavor, Ensure Plus- Evie; Quantity (# of cans): 1 can All Meals Question Answer Comment ([facility]) Select Supplement: VARY/multiple Flavor ([facility]) Select Supplement: Ensure Plus - Evie Quantity (# of cans): 1 can 09/23/23 0809 09/20/23 1434 Adult Diet Regular Diet effective now Question: ([facility]) Diet type Answer: Regular 09/20/23 9719 Reviewed. Allergies: IMPRESSION: Pt reports she continues [...] previous diet Dot Brown MS RD LD #[phone] * Jose Rodriguez MD - 09/29/2023 10:53 AM CDTAssociated Order(s): CONSULT TO PM&R PHYSICIAN Consult Reason: Assess rehabilitation needs Requesting Attending: Ibrahima Middleton MD HISTORY Aidee Domínguez is a 78yo Right-handed woman with pmh of no reported medical history who was transferred from [facility] 09/16/23 with BUE weakness and LLE pain [...] Rodriguez on 09/20/23. She continues withuse of Guidiville J orthosis and NWB LLE in splint. [...] [facility] ALLERGIES: No Known Allergies MEDICATIONS: Current Facility-Administered [...] Daily Hannah Chun NP 17 g at 09/25/23 0900 senna-docusate (PERICOLACE) [...] and C3-C6 laminectomies and C2-C7 PSF 09/20/23. Guidiville J orthosis NWB LLE in splint Recommendations: [...] safe discharge to Home; and transfer to retirement facility is recommended, with continued PT and OT. Upon liberalization of LLE weight-bearing, she may benefit from intensive inpatient rehabilitation,prior to return to Home, which would necessitate completion of ADLs and transfers and mobility at Ellie-set-up level. Thank you for this consult. Please contact with any questions. Jose Rodriguez Deburring Technician Physical Medicine and Rehabilitation 45 minutes total [...] 6 7 CREATININE mg/dL 0.42* 0.37* 0.36* [id number] mL/min/1.73 m2 >90 >90 >90 CALCIUM mg/dL [...] of Weight Used for Estimated Protein : [place] Dietary Orders (From admission, onward) Start Ordered 09/23/23 1100 Oral Nutrition Supplements ([facility]) Select Supplement: VARY/multiple Flavor, Ensure Plus- Evie; Quantity (# of cans): 1 can All Meals Question Answer Comment ([facility]) Select Supplement: VARY/multiple Flavor ([facility]) Select Supplement: Ensure Plus - Evie Quantity (# of cans): 1 can 09/23/23 0809 09/20/23 1434 Adult Diet Regular Diet effective now Question: ([facility]) Diet type Answer: Regular 09/20/23 1439 Reviewed. [...] PO intake Georgia Tiwari MS, RD-AP, LD, [facility] [phone] NSS Weekend / Consult [phone] * Yas Fuller MD - 09/18/2023 11:34 [...] extension 3/5 4-/5 Wrist flexion 3/5 4/5 Activity Aid 4/5 4/5 Interosseous of hand 3/5 4/5 [...] surgery team,please use the Directory Search at [email or web address] to page resident directly. If questions arise and the appropriate resident can't be reached or you are calling overnight, please contact [phone] ([place]- 7:30 PM - 6:30 AM - Floor Resident) or [phone] (24 hours/day - Consult Resident) Fellow Addendum: [...] after recent surgery for tibia fracture Imaging: CT shows significant stenosis at C3-4 and stenosis [...] Fuller MD Orthopaedic Surgery - Spine Fellow [facility] in [place] I personally examined Ms. Domínguez on the [...] and wrist extension bilaterally, 3/5 triceps, 3/5 elevator service technician, and 2/5 interossei bilaterally. She was able [...] Salazar MD - 09/16/2023 4:37 AM CDT [facility] Team C Trauma Surgery History and Physical [...] trauma service-Floor FOLLOWUP NEEDED: Patient may call [phone] - option 1 after discharge during normal businesshours (-) to schedule a follow-up appointment if needed with the Acute and Critical Care Surgery Clinic in the 3rd floor of the [facility] Trauma Surgery September 16, 2023 7:06 AM [...] Response: Oriented Best Motor Response: Obeys commands Brit[place]tey Coma Scale Score: 15 C-Spine Precautions: No [...] images may or may not represent the cocopah source data set and thus may contain [...] images may or may not represent the cocopah source data set and thus may contain changes that may lower the accuracy of this second-opinion interpretation. Dictated by: Pedro Dias MD XR Outside Reference Result Date: 09/16/2023 These images are for Reference purposes only and have not been reviewed by [facility] Radiology. There will be no report generated by a [facility] Radiologist. XR Outside Reference Result Date: 09/16/2023 These images are for Reference purposes only and have not been reviewed by [facility] Radiology. There will be no report generated by a [facility] Radiologist. XR Outside Reference Result Date: 09/16/2023 These images are for Reference purposes only and have not been reviewed by [facility] Radiology. There will be no report generated by a [facility] Radiologist. XR Outside Reference Result Date: 09/16/2023 These images are for Reference purposes only and have not been reviewed by [facility] Radiology. There will be no report generated by a [facility] Radiologist. XR Outside Reference Result Date: 09/16/2023 These images are for Reference purposes only and have not been reviewed by [facility] Radiology. There will be no report generated by a [facility] Radiologist. XR Outside Reference Result Date: 09/16/2023 These images are for Reference purposes only and have not been reviewed by [facility] Radiology. There will be no report generated by a [facility] Radiologist. Cosigned by Ibrahima Middleton MD at [...] or family members viewing this note through [employer] access programs: This note was written as a [...] surgery team,please use the Directory Search at [email or web address] to page resident directly. If questions arise and the appropriate resident can't be reached or you are calling overnight, please contact [phone] (Thu- 7:30 PM - 6:30 AM - Floor Resident) or [phone] (24 hours/day - Consult Resident) Cosigned by [...] to proceed with surgery. Hammad Taylor MD Deburring Technician Orthopedic Trauma Service [facility] Orthopedics Hammad Taylor MD dictating using Fluency Direct Software. Space Control Supervisor variances may occur. documented in this encounter Nursing Notes * Priscila Crespo RN - 09/29/2023 2:21 PM CDT Report given to Mariaa at [facility]. Faxed script to [phone]. * Claire Tena RN - 09/24/2023 12:01 PM CDT Patient transferred to [facility]. No personal belongings at bedside to send with patient. No questions from receiving RN. * Hannah Ghotra RN - 09/20/2023 5:48 PM CDT Dilaudid CONSULTING SOLUTION DIRECTOR 20mg/100ml of sodium chloride was ordered for patient with the parameters of 0.2mg g42vuog with a 1.2mg lockout per hour. Dilaudid CADD started (order ID [id number]) at 1456 with dual sign from second RN. Provider then D/C'd the original Dilaudid CONSULTING SOLUTION DIRECTOR order and re-ordered it (order ID [id number]) with thesame concentration, instructions and parameters (0.2mg q10 mins with a 1.2mg lockout per hour). Dual sign RN handoff completed at 1654 after clearing pump values. At 1657 there is a canceled entry under the discontinued order stating, provider ordered CONSULTING SOLUTION DIRECTOR standard dosing 0.2 dilaudid q10 min with a 1.2mg lockout/hr then D/C order but reordered under the same parameters; CONSULTING SOLUTION DIRECTOR not stopped, see handoff with dual nurse sign at 1654 under new order. 1 CADD pulled from pyxis and given in total; the CADD from 1456 (order ID [id number]). * Karley Guo RN - 09/19/2023 10:03 [...] RN - 09/16/2023 10:34 AM CDT Bed: [place] [address] Expected date: Expected time: Means of arrival: [...] created with voice recognition software. Occasional wrong-wordor '[id number]-s-[id number]' substitutions may have occurred due to the [...] alert. Psychiatric: Mood and Affect: Mood normal. [facility] Medical Decision Making 78-year-old female history as [...] 24hrs dtr found slipped wet floor, to [facility] found tib fib fx, ct head/spine and [...] Middleton By: Sara Jimenez MD Time: 09/15 7416 Comment: GTS noted a mediastinal mass on [...] intact, in plaster cast. Awaiting transfer to [facility]. Not requesting analgesia at this time. OR time 1228 per encounters By: Miquel Bagley MD Other closed fracture of distal end of left tibia, initial encounter Closed fracture of shaft of left tibia, unspecified fracture morphology, initial encounter Hypocalcemia Sara Jimenez MD Resident 09/17/23 07 Cosigned by Diogo Lee MD at 09/17/2023 [...] 09/16/2023 2:41 AM CDT Pt transferred from [facility] after unwitnessed mechanical fall on Thursday morning. Per pt she was on the ground for approx 24 hours after she was found. -hit head, -LOC, -BT. Imaging at OSH shows pt has a L distal tib fib fx. PMS intact and pulses palpable on arrival. * Ami Bragg RN - 09/16/2023 2:23 AM CDT Bed: [facility] Expected date: 09/16/23 Expected time: 1:05 [...] included. Patient COVID neg result. MINESH Vernon cushion spring assembler * ECIN Note - Caroline Jarquin RN [...] NWB -AK NWB -EL Braces/Orthoses Cervical collar;Other Guidiville J; [facility] LLE -BS Cervical collar Guidiville J -AK Cervical collar Guidiville J - Precaution Handout Issued No -BS [...] X -EL RUE Comments -- -- Decreased elevator service technician strength noted -EL LUE Assessment -- -- X -EL LUE Comments -- -- Decreased elevator service technician strength noted -EL Arousal/Alertness Alert;Appropriate responses to [...] this the discharge summary -EL OT Recommendation Longterm Facility -BS Longterm Facility -AK Longterm Facility -EL Patient at high risk for [...] = Cosigned By Initials Name Effective Dates BS An Youngblood, OT 03/02/23 - EL Hannah Ludwig, OT 11/07/22 - Greer Wheat, OT 02/20/22 [...] -MS (r) MH (c) Braces/Orthoses Cervical collar;Other [place] J, SLS LLE -MS (r) MH (c) [...] -MS (r) NIKOS (c) Recommendation/Plan PT Recommendation/Plan Longterm Facility -MS (r) NIKOS (c) Patient at [...] By Initials Name Effective Dates Carmencita Batista CAlon 07/27/23 - Daniel Nichole, PT 08/22/21 [...] (Moisture associated skin damage) Assessments Row Name 09/28/23192909/28/23 1019 09/27/23 1928 09/27/23 1600 09/27/23 1200 Wound Status Evolving Evolving -- Evolving Evolving Site Assessment Clean;[place] Clean;Color appropriate for ethnicity;Dry -- Clean Clean [...] 1019 09/27/23 1928 09/27/23 1600 09/27/23 1200 Site Assessment RAFA [...] * Plan of Care - Caroline Jarquin, TYLER - 09/29/2023 8:30 AM CDT 09/28/23 [facility] Discharge Planning Support System Children (daughter Jennifer [phone]) Anticipated discharge level of care [facility] facility Does the patient need discharge transport [...] by daughter Jennifer who noted preference is [facility] placement. CM contacted [facility] liaison, Jordyn [phone], who noted that facility does not have bed availabilityand have a wait list currently. CM relayed this to patient at bedside who noted to contact Jennifer regarding 2nd choice. Patient also noted frustration that [facility] cannot hold beds and now cannot accept. CM then called Jennifer back who noted 2nd choice as [facility]. CM contacted admissions liaison Margy [phone] who noted that patient is being reviewed [...] her area or for CM to contact PCM clinic for new PCP. Awaiting response. CM to relayed appt time/date/provider name to Margy when secured. Jennifer noted she'd prefer to PCM clinic. CM messaged via [employer] and secured appt for 10/[address], [facility], [address]. CM relayed to Margy. Per [...] Patient and/or family are agreeable with plan. credit and collection manager will continue to follow and assist with discharge planning as needed. If any further discharge needs arise, please contact the covering special education case manager. MINESH Vernon cushion spring assembler * Plan of Care - Blake Joseph [...] safety, mantain skin intgerity, q2 turns, rest Bottom Liquor Attendant Patient Centered Goal for Treatment: safety Summary: [...] RN - 09/28/2023 9:00 AM CDT 09/28/23 [facility] Discharge Planning Support System Children (daughter Jennifer [phone]) Anticipated discharge level of care [facility] facility Does the patient need discharge transport [...] [facility] Cm called Jennifer back describing how insurance would likely not accept coverage of patient due to rec for SNF. Jennifer stated she'd still like the referral to be sent. CM sent referral via e[employer], awaiting response. Jennifer noted that she will follow up with CM on SNF preference. Addendum 1330: CM contacted by Mellissa with [facility] via [employer] message noting that patient will need to [...] Patient and/or family are agreeable with plan. credit and collection manager will continue to follow and assist with discharge planning as needed. If any further discharge needs arise, please contact the covering special education case manager. MINESH Vernon RN Case Manager * Plan of Care - Abdi Petreson RN - 09/28/2023 4:17 AM CDT Goals: Clinical Goals for the Shift: pain control, safety, and comfort Bottom Liquor Attendant Patient Centered Goal for Treatment: safety Summary: [...] Clinical Goals for the Shift: pain control Bottom Liquor Attendant Patient Centered Goal for Treatment: safety Summary: VSS, I&Os, neuro/vasc check, safety, comfort, pain management, medications * Plan of Care - Caroline Jarquin RN - 09/25/2023 8:40 AM CDT 09/25/23 1018 Discharge Planning Support System Children (daughter Jennifer [phone]) Anticipated discharge level of care [facility] facility Does the patient need discharge transport [...] Facility N/A CM Progression of Care Update: Religious Education Teacher noted patient has been recommended for SNF by PT/OT. credit and collection manager met with the patient at bedside to discuss recommendations by therapy and to work on a potential discharge disposition plan. Religious Education Teacher provided education to patient on retirement facilities and the rehabilitation process. Patient reported she was interested in short term SNF placement for rehabilitation. credit and collection manager provided a list of SNF to [...] Patient and/or family are agreeable with plan. credit and collection manager will continue to follow and assist with discharge planning as needed. If any further discharge needs arise, please contact the covering special education case manager. MINESH Vernon cushion spring assembler * ECIN Note - Caroline Jarquin RN - 09/25/2023 7:54 AM CDT Images from the original note were not included. Patient Information: Patient Header Patient Information Patient Name: AIDEE DOMÍNGUEZ Date of 1945 (78 years) Sex: Female , OT Eval and Treat Last 72 Hours OT Evaluation Row Name 09/21/23 1414 09/18/23 0756 Chart Reviewed -- Yes -CD Session Type [...] with pt -CD [facility] of [facility] -CD Home Layout -- One level -CD [...] Equipment-Currently Using -- None -CD Level of [place] -- Independent with ADLs;Independent functional transfers;Independent with ambulation;Independent with homemaking with ambulation -CD Lives With -- Alone -CD Receives Help From -- Spouse/Significant other SUPERVISOR BELT AND LINK ASSEMBLY from daughter -CD Driving -- Yes -CD [...] and address after me -- Kirk Goodman [address] [place] [address] -CD Without looking at the clock, tell [...] Mobility to 2 -- Rolling left;Rolling right -CD Level of Assistance 2 -- Maximum Assist -CD Bed Mobility Comments 2 -- X 2 assist -CD Transfer -- No NT 2/ safety concerns -CD RUE Assessment -- X [...] the discharge summary -CD OT Recommendation -- Longterm Facility -CD Patient at high risk for [...] Weight Bearing NWB -EL Braces/Orthoses Cervical collar [place] J -EL Precaution Handout Issued No -EL [...] RUE Assessment X -EL RUE Comments Decreased elevator service technician strength noted -EL LUE Assessment X -EL LUE Comments Decreased elevator service technician strength noted -EL Arousal/Alertness Alert;Appropriate responses to [...] this the discharge summary -EL OT Recommendation Longterm Facility -EL Patient at high risk for [...] 3:15 PM Progress Notes signed by Hannah Ludwig OT , PT Eval and Treat Last 72 Hours PT Evaluation No documentation. PT TREATMENT (Last 168 Hours) PT Treatment Row Name 09/21/23 4546 PT Last Visit Session Type Treatment -MM Safe Environment Arm band checked;Session completed bedside;Patient found in supine;Gait belt not utilized, see comment no OOB mobility performed this visit -MM Subjective Agreeable to Therapy -MM Family/Caregiver Present Yes Daughter -MM Precautions Precautions Fall risk -MM Weight Bearing Restrictions Yes -MM LLE Weight Bearing NWB -MM Braces/Orthoses Cervical collar [place] J on throughout session -MM Precaution Handout [...] the discharge summary -MM Recommendation/Plan PT Recommendation/Plan Longterm Facility -MM Patient at high risk for [...] Evolving Site Assessment Clean Clean Clean Clean;Excoriated Clean;[place];Excoriated Trice-wound Assessment Dry;Intact;Blanchable erythema Dry;Intact;Blanchable erythema Dry;Intact;Blanchable [...] Name 09/23/231899 Wound Status Evolving Site Assessment [place] Trice-wound Assessment Dry;Intact;Blanchable erythema Margins Unattached edges [...] Clinical Goals for the Shift: pain control Bottom Liquor Attendant Patient Centered Goal for Treatment: safety Summary: [...] - TTF when bed available - D/c guerrier 09/22 PM: - Ortho spine: q3h neurochecks, [place] J, OOBTC/PT as tolerated, upright c-spine XR [...] IVrelated swelling. Sensation equal at shoulders. Hand elevator service technician L 3/5 R 2/5 apparently limited by [...] 09/19 -Ortho spine: q4h neurochecks, transfer to [facility] floor - PT/OT consult #at risk for [...] IVrelated swelling. Sensation equal at shoulders. Hand elevator service technician L 3/5 R 2/5 apparently limited by [...] Cruz of the ACCS service. QUESTIONS? Call [phone] ([phone]). * Plan of Care [...] Will remain free from injury from falls 09/22/202338 by Miladys Cardenas RN Outcome: Progressing 09/22/2023935 [...] Miladys Cardenas RN Outcome: Progressing 09/22/2023935 by Mildays Cardenas RN Outcome: Progressing Problem: Lack of [...] severity. Vitamin and Mineral Nutrition Information System. [facility] World Health Organization, 2011 (WHO/NMH/NHD/MNM/11.1) http://www.who.int/vmnis/indicators/haemoglobin.pdf https://acphospitalist.org/archives//coding.htm https://acphospitalist.org/archives//nweitd-gntqc-quqe-anemia.htmhttps:// acphospitalist.org/archives//xnusfv-ticpv-mtnn-anemia.htm From the ICD-10-CM Coding Guidelines, use of terms such as likely, suspected, possible, or probable(associated with a specific diagnosis that is being evaluated, monitored, or treated as if it exists) are acceptable and can be coded in the inpatient setting when documented at the time of discharge. This documentation will become part of the patient???s medical record. Respectfully, Mer Petersen RN BSN [facility] Clinical Locomotive Crane Operator [address] [email or web address] [phone] * Initial Assessments - Helen Murillo RN [...] Daughter Jennifer ordonez pt moved home from [place] recently and is looking for a new PCP. Prior to Admission: Functional Status: Minimal assist with ADLs Primary Caregiver: Self Support System: Children Home Care Services: No Outpatient Services: No Durable Medical Equipment: Walker (wheeled) Living Arrangements: Alone Type of Residence: Apartment (09/21/231113) Potential discharge needs include: Home Health: Occupational therapy, Physical therapy, [facility] (09/21/231113) OP Services: no Dialysis: no Behavioral [...] Collaboration with Patient, Provider, Direct Care Nurse, Able Bodied Seaman, and other members of theHealth Care Team to assure needed interventions completed. 2. Return patient to optimal level of self-care post discharge. 3. Religious Education Teacher will follow for Discharge Planning - interventions [...] of the patient???s medical record. Respectfully, Mer MARTINEZN [facility] Clinical Locomotive Crane Operator [address] [email or web address] [phone] * Plan of Care - Felipa Martinez [...] control, PT/OT, MAP >80 * Plan of Anais Hairston RN - 09/20/2023 11:14 PM CDT Goals: [...] CDT ..Operative Report Surgeon Hans Rodriguez MD Investor Relations Coordinator(s) Surgeons and Role: * Hans Rodriguez MD [...] then turned to placing the C2 screws.A Anderson 4 was placed on the inner ring [...] was no active bleeding identified. A 15 Greek drain was placed through a separate incision [...] Implant Name Type Inv. Item Serial No. Wardrobe Stylist Lot No. LRB No. Used Action Hear It First Infuse 20ga 2x1in Vial Absorbable Syringe Needle Medium Graft 5.6 [id number] - [id number] [employer] Infuse 20ga 2x1in Vial Absorbable Syringe Needle Medium Graft 5.6 [id number] MedtronicInc [id number] N/A 1 Implanted ALLOSOURCE Crushed Fresh Frozen Cancellous 1-4mm Graft 15ml Bone [id number] - [id number] ALLOSOURCE Crushed Fresh Frozen Cancellous 1-4mm Graft 15ml Bone [id number] Allosource [id number] N/A 1 Implanted NUVASIVE INC Screw Spinal Posterior Cervical Full Thread Solid Reline C 3.5x24mm Titanium [id number] -[id number] [employer]UV[employer] Screw Spinal Posterior Cervical Full Thread Solid Reline C 3.5x24mm Titanium [id number] Nuvasive Inc N/A 2 Implanted NUVASIVE INC Screw Spinal Posterior Cervical Solid Reline C 3.5x14mm [id number] - [id number] NUVASIVEINC Screw Spinal Posterior Cervical Solid Reline C 3.5x14mm [id number] Nuvasive Inc N/A 5 Implanted NUV[employer] INC Screw Spine Reline C Lock Open Non-Sterile Latex Free [id number] - [id number] [employer]UV[employer] INC Screw Spine Reline C Lock Open Non-Sterile Latex Free [id number] Nuvasive Inc N/A 9 Implanted NUVASIVE INC Screw Spinal Posterior Cervical Full Thread Solid Reline C 4.0x20 Nuvasive Inc N/A 2 Implanted GLOBUS MEDICAL QUARTEX 4MM 65MM CURVE BERTIN SPINAL NONSTERILE LATEX FREE 1149.7565 - [id number] GLOBUS MEDICAL QUARTEX 4MM 65MM CURVE BERTIN SPINAL NONSTERILE LATEX FREE 1149.7565 Globus Medical N/A 1 Implanted GLOBUS MEDICAL Connector Spinal Curved Quartex 4.0x70mm Titanium 1149.7570 - [id number] GLOBUS MEDICAL Connector Spinal Curved Quartex 4.0x70mm Titanium 1149.7570 [employer]obus Medical N/A 1 Implanted Specimens None. Counts Correct. Estimated Blood Loss 15 mL. Total IV Fluids Please see anesthesia records Complications None. Condition on Discharge Stable. Hans Rodriguez M.D. Deburring Technician of Orthopaedic Surgery Department of Orthopaedic Surgery [facility] [place], [place] Operative Report dictated by Hans Rodriguez M.D. on 09/20/23 using Fluency Direct. Space Control Supervisor variances may occur. * Plan of Care [...] DVT; (+) superficial vein thrombus - 09/25: [place] J and upright cspine Xrs completed - 09/26: BUE motor exam stable. Cont PT/OT - 09/28: Doing well, tolerating diet and activity with well controlled pain; [place] J in place; PMNR c/s for recs [...] Resident - Assisting Anesthesiologist: Júnior Velazquez MD HOOK UP: Morgan Duke III HOOK UP Foam Gun Operator: Irasema Palafox RN Foam Gun Operator Relief: Mel Salazar RN Scrub Relief: Pool Londono RN Scrub: Bambi Rees [facility] Foam Gun Operator: Cesia Cervantes RN DATE OF SURGERY : [...] Implant Name Type Inv. Item Serial No. Wardrobe Stylist Lot No. LRB No. Used Action SYNTHES Nail Im Tibial Ti Tn Advanced [id number] 04.043.430S - [id number] SYNTHES Nail Im Tibial Ti Tn Advanced [id number] 04.043.430S Synthes I [id number] Left 1 Implanted SYNTHES Screw Bone Locking Cannulated Femoral Threaded 5.0x36mm 04.045.336S - [id number] SYNTHES Screw Bone Locking Cannulated Femoral Threaded 5.0x36mm 04.045.336S Synthes I Left 1 Implanted SYNTHES SCREW LOCKING IM NAIL 5MM 34MM 04.045.034 - [id number] SYNTHES SCREW LOCKING IM NAIL 5MM 34MM 04.045.034 Synthes I Left 2 Implanted SYNTHES 3.5mm 440mm Elastic Nail Intramedullary Titanium Pediatric 475.935 - [id number] SYNTHES 3.5mm 440mm Elastic Nail Intramedullary Titanium Pediatric 475.935 Synthes I Left 1 Implanted SYNTHES Screw Locking Threaded 5.0x44mm 04.045.344S - [id number] SYNTHES Screw Locking Threaded 5.0x44mm 04.045.344S Synthes [...] CDT Date of Surgery: 09/16/2023 INDICATIONS: Ms. Domígnuez is a 78 y.o.-year-old female who sustained [...] examination under fluoroscopy SURGEON: Hammad Taylor M.D. SPECIAL AGENT IN CHARGE: Zoila Segura MD ([id number]); Otto Dotson MD [...] The distal interlocks were placed with perfect robinson technique. This was done under fluoroscopic guidance [...] 1:05 AM CDT Pre-Arrival Note Transfer from [facility]. Patient fell Thursday at 4am, found at [...] AM CDT POCT GLUCOSE DEVICE Routine 09/21/2023 1 1:34 PM CDT EGFR Routine 09/21/2023 8:51 PM [...] PM CDT POCT GLUCOSE DEVICE Routine 09/21/2023 1 1:36 AM CDT XR CHEST 1 VIEW ED [...] initial encounter POCT GLUCOSE DEVICE Routine 09/21/2023 1 2:26 AM CDT EGFR Routine 09/20/2023 8:27 PM [...] CHEMISTRIES, ARTERIAL Routine 09/20/2023 9:52 AM CDT EGFR Routine 09/19/2023 11:58 PM CDT APTT [...] ED Urgent/IP Urgent 09/18/2023 7:27 PM CDT SALVAGE WORKER EVALUATE AND TREAT Routine 09/18/2023 8:49 AM CDT EGFR Routine 09/18/2023 1:25 [...] (CK), TOTAL STAT 09/16/2023 9:58 AM CDT [facility] ILL/INJURED PATIENT INIT 30-74 MIN [...] 12:50 PM CDT) COVID-19 RNA Negative Negative [facility] Nasopharyngeal 09/29/2023 12 :50 PM CDT 09/29/2023 1:33 PM CDT Narrative [facility] - 09/29/2023 2:09 PM CDT Is the patient experiencing any symptoms consistent with COVID (eg. Fever, cough, shortness of breath)?->No What is the reason for testing?->Screening for post-acute care placement ??Interpretive data: Synonyms for this test include: PCR and NAAT . ??This test is performed using the [employer] Xpert Xpress plus assay. This is a [...] . ??This test is performed using the Cogeco Cableid Xpert Xpress plus assay. This is a [...] last revised September 11, 2021. Penny Luna PERFORMANCE MANAGER LAB MICROBIOLOGY - G ENERAL ORDERABLES Final Result [facility] Department [place] [address] [facility] * XR Spine Cervical 2 or 3 [...] Middleton MD LAB BLOOD ORDERABLES Final Result [facility] [place] [address] * (ABNORMAL) Basic metabolic panel (09/25/2023 10:51 PM CDT) Sodium 137 135 - 145 mmol/L Potassium, pl 4.3 3.3 - 4.9 mmol/L [facility] Chloride 100 97 - 110 mmol/L [facility] CO2 30 22 - 32 mmol/L [facility] Anion gap 7 2 - 15 mmol/L [facility] BUN 12 6 - 25 mg/dL [facility] Creatinine 0.49(L) 0.60 - 1.10 mg/dL [facility] Glucose 102 70 - 199 mg/dL [facility] Comment: Interpretive Data Fasting glucose >/= [...] 2022. Calcium 8.5 8.5 - 10.3 mg/dL [facility] Blood 09/25/2023 10:5 1 PM CDT 09/26/2023 12:11 AM CDT Ibrahima Middleton MD LAB BLOOD ORDERABLES Final Result Performing Organization Address [facility] Co de Phone Number [facility] Department [place] [address] * Infection Prevention Clement auris PCR, surveillance Axilla/Groin (09/25/2023 6:26 PM CDT) Pathologist [facility] Clement auris DNA Not Detected Not Detected [facility] Comment: Interpretive Data Testing performed by [facility] Molecular Infectious Disease Laboratory using the i[employer] Liaison MDX Clement auris assay. ??This assay detects DNA from Clement auris using Real-Time PCR. ??This assay is laboratory developed and is not cleared by the [place] Food and Drug Administration. ??The performance characteristics have been verified by the [facility] Infectious Disease [facility]. Interpretive data was last reviewed on 08/05/2023 Axilla/Groin 09/25/2023 6:26 PM CDT 09/25/2023 6:42 PM CDT Jacoby Nguyen MD LAB MICROBIOLOGY - GENERAL OR DERABLES Final Result Performing Organization Address [facility] Co de Phone Number [facility] Department [place] [address] [facility] * POCT glucose (09/25/2023 2:06 PM CDT) Glucose, POC 127 70 - 199 mg/dL Blood 09/25/2023 2:06 PM CDT 09/25/2023 2:06 PM CDT us Ibrahima Middleton MD LAB POCT ORDERABLES - DEVIC E Final Result [facility] Department [place] [address] * US Vein Duplex Upper Extremity Right Limited, Unilateral (09/25/2023 10:27 AM CDT) Anatomical Region Laterality Modality Vascular Right Ultrasound 09/25/2023 9:24 AM CDT Narrative 09/27/2023 8:50 PM CDT [facility] - Department of Vascular Surgery, Vascular Laboratory [address] [place] [address] Upper Extremity Venous Ultrasound Report Patient Name: AIDEE DOMÍNGUEZ : 1945 (78y 5m) Study Date: 09/25/2023 9:24:11 AM Gender: F Tech: DX Location: [id number] Ref Provider: IBRAHIMA MIDDLETON ?Quality: Adequate Order Provider: IBRAHIMA MIDDLETON PROCEDURES: Vascular Report: Venous Duplex imaging was performed in the right upper extremity. The internal jugular, subclavian and axillary veins were evaluated for patency, spontaneity and phasicity with Doppler, compression and augmentation maneuvers. The brachial, basilic and cephalic veins were also evaluated with compression maneuvers. INDICATIONS: Localized edema. FINDINGS: Performing Scoreboard Operator: Erick Garay RVT. Right: Unable to [...] above. Electronically Signed By: Paul Moran MD [facility] 2023-09-27 20:49:52 CDT Procedure Note Paul Moran MD - 09/27/2023 [facility] - Department of Vascular Surgery,Vascular Laboratory [address] [place] [address] Upper Extremity Venous Ultrasound Report Patient Name: AIDEE DOMÍNGUEZ : 1945 (78y 5m) Study Date: 09/25/2023 9:24:11 AM Gender: F Tech: DX Location: [id number] Ref Provider: IBRAHIMA MIDDLETON Quality: Adequate Order Provider: IBRAHIMA MIDDLETON PROCEDURES: Vascular Report: Venous Duplex imaging was performed in the right upper extremity. Theinternal jugular, subclavian and axillary veins were evaluated for patency, spontaneity andphasicity with Doppler, compression and augmentation maneuvers. The brachial, basilic andcephalic veins were also evaluated with compression maneuvers. INDICATIONS: Localized edema. FINDINGS: Performing Scoreboard Operator: Erick Garay RVT. Right: Unable to [...] above. Electronically Signed By: Paul Moran MD [facility] 2023-09-27 20:49:52 CDT Ibrahima Middleton MD IMG US PROCEDURES Final Res ult * POCT glucose (09/25/2023 7:25 AM CDT) Glucose, POC 127 70 - 199 mg/dL Blood 09/25/2023 7:25 AM CDT 09/25/2023 7:25 AM CDT Ibrahima Middleton MD LAB POCT ORDERABLES - DEVIC E Final Result Performing Organization Address City/State/[facility] Co la Phone Number [facility] Department [place] [address] * XR Chest 1 View (09/24/2023 10:45 [...] BLOOD ORDERABLES Final Result Performing Organization Address [facility] Co de Phone Number [facility] [place] [address] * Phosphorus (09/24/2023 9:16 PM CDT) [facility] Phosphorus, pl 3.3 2.3 - 4.5 mg/dL Blood 09/24/2023 9:16 PM CDT 09/24/2023 9:46 PM CDT Ibrahima Middleton MD LAB BLOOD ORDERABLES Final Result Performing Organization Address [facility] de Phone Number [facility] [place] [address] * Magnesium (09/24/2023 9:16 PM CDT) [facility] Magnesium 1.9 1.4 - 2.5 mg/dL Blood 09/24/2023 9:16 PM CDT 09/24/2023 9:46 PM CDT Ibrahima Middleton MD LAB BLOOD ORDERABLES Final Result Performing Organization Address [facility] de Phone Number [facility] [place] [address] * (ABNORMAL) CBC without differential (09/24/2023 9:16 PM CDT) [facility] WBC 12.2(H) 3.8 - 9.9 K/cumm Hgb 9.2(L) 11.9 - 15.5 g/dL [facility] Hct 29.1(L) 35.6 - 45.5 % [facility] Plt 521(H) 150 - 400 K/cumm [facility] MPV 9.7 9.1 - 12.3 fL [facility] RBC 3.12(L) 3.90 - 5.20 M/cumm [facility] MCV 93.3 81.3 - 96.4 fL [facility] MCH 29.5 27.1 - 33.3 pg [facility] MCHC 31.6(L) 32.3 - 35.7 g/dL [facility] RDW CV 14.0 11.1 - 14.9 % [facility] RDW SD 47.3 35.7 - 48.1 fL [facility] NRBC abs 0.00 0.00 - 0.01 K/cumm [facility] [facility] Blood 09/24/2023 9:16 PM CDT 09/24/2023 9:53 PM CDT Ibrahima Middleton MD LAB BLOOD ORDERABLES Final Result [facility] Department [place] [address] * (ABNORMAL) Basic metabolic panel (09/24/2023 9:16 PM CDT) [facility] Sodium 140 135 - 145 mmol/L Potassium, pl 4.5 3.3 - 4.9 mmol/L [facility] Chloride 104 97 - 110 mmol/L [facility] CO2 29 22 - 32 mmol/L [facility] Anion gap 7 2 - 15 mmol/L [facility] BUN 10 6 - 25 mg/dL [facility] Creatinine 0.46(L) 0.60 - 1.10 mg/dL [facility] Glucose 125 70 - 199 mg/dL [facility] Comment: Interpretive Data Fasting glucose >/= [...] 2022. Calcium 8.5 8.5 - 10.3 mg/dL [facility] Blood 09/24/2023 9:16 PM CDT 09/24/2023 9:46 PM CDT Ibrahima Middleton MD LAB BLOOD ORDERABLES Final Result [facility] [place] [address] * XR Spine Cervical 2 or 3 [...] plan with the ICU team and other medical/business continuity consultant staff, making frequent assessments and decisions [...] Result * eGFR (09/23/2023 4:04 PM CDT) Pathologist [facility] eGFR >90 >=60 mL/min/1. 73 m2 Comment: [...] BLOOD ORDERABLES Final Result Performing Organization Address [facility] Co de Phone Number [facility] [place] [address] * Phosphorus (09/23/2023 4:04 PM CDT) Phosphorus, pl 3.8 2.3 - 4.5 mg/dL Blood 09/23/2023 4:04 PM CDT 09/23/2023 4:28 PM CDT Ibrahima Middleton MD LAB BLOOD ORDERABLES Final Result [facility] [place] [address] * Magnesium (09/23/2023 4:04 PM CDT) Magnesium 1.9 1.4 - 2.5 mg/dL Blood 09/23/2023 4:04 PM CDT 09/23/2023 4:28 PM CDT Ibrahima Middleton MD LAB BLOOD ORDERABLES Final Result Performing Organization Address [facility] Co de Phone Number [facility] Department [place] [address] * (ABNORMAL) CBC without differential (09/23/2023 4:04 PM CDT) WBC 13.9(H) 3.8 - 9.9 K/cumm Hgb 9.5(L) 11.9 - 15.5 g/dL [facility] Hct 30.3(L) 35.6 - 45.5 % [facility] Plt 425(H) 150 - 400 K/cumm [facility] MPV 10.0 9.1 - 12.3 fL [facility] RBC 3.25(L) 3.90 - 5.20 M/cumm [facility] MCV 93.2 81.3 - 96.4 fL [facility] MCH 29.2 27.1 - 33.3 pg [facility] MCHC 31.4(L) 32.3 - 35.7 g/dL [facility] RDW CV 13.8 11.1 - 14.9 % [facility] RDW SD 46.5 35.7 - 48.1 fL [facility] NRBC abs 0.00 0.00 - 0.01 K/cumm [facility] Blood 09/23/2023 4:04 PM CDT 09/23/2023 4:28 PM CDT Ibrahima Middleton MD LAB BLOOD ORDERABLES Final Result Performing Organization Address City/[facility]/ZIP Co de Phone Number [facility] Department [place] [address] * (ABNORMAL) Basic metabolic panel (09/23/2023 4:04 PM CDT) Sodium 141 135 - 145 mmol/L Potassium, pl 4.5 3.3 - 4.9 mmol/L [facility] Chloride 104 97 - 110 mmol/L [facility] CO2 32 22 - 32 mmol/L [facility] Anion gap 5 2 - 15 mmol/L [facility] BUN 10 6 - 25 mg/dL [facility] Creatinine 0.45(L) 0.60 - 1.10 mg/dL [facility] Glucose 121 70 - 199 mg/dL [facility] Comment: Interpretive Data Fasting glucose >/= [...] 2022. Calcium 8.4(L) 8.5 - 10.3 mg/dL [facility] Blood 09/23/2023 4:04 PM CDT 09/23/2023 4:28 PM CDT us Ibrahima Middleton MD LAB BLOOD ORDERABLES Final Result [facility] [place] [address] * eGFR (09/22/2023 8:04 PM CDT) eGFR >90 >=60 mL/min/1. 73 [...] BLOOD ORDERABLES Final Result Performing Organization Address City/[facility]/ZIP Co de Phone Number [facility] Department [place] [address] * Type and screen (09/22/2023 8:04 PM CDT) ABO Rh O Positive Alejandrina, indirect Negative [facility] Blood 09/22/2023 8:04 PM CDT 09/22/2023 8:14 PM CDT Narrative [facility] - 09/22/2023 9:13 PM CDT Has the patient had Daratumumab or Isatuximab in the past 6 months?->Unknown us Sterling Patrick MD LAB BLOOD BANK TEST OR DERABLES Final Result [facility] [place] [address] * (ABNORMAL) Phosphorus (09/22/2023 8:04 PM CDT) Phosphorus, pl 1.9(L) 2.3 - 4.5 mg/dL Blood 09/22/2023 8:04 PM CDT 09/22/2023 8:20 PM CDT Ibrahima Middleton MD LAB BLOOD ORDERABLES Final Result Performing Organization Address [facility] Co de Phone Number [facility] Department [place] [address] * Magnesium (09/22/2023 8:04 PM CDT) [facility] Magnesium 1.8 1.4 - 2.5 mg/dL Blood 09/22/2023 8:04 PM CDT 09/22/2023 8:20 PM CDT Ibrahima Middleton MD LAB BLOOD ORDERABLES Final Result Performing Organization Address [facility] de Phone Number [facility] [place] [address] * (ABNORMAL) CBC without differential (09/22/2023 8:04 PM CDT) [facility] WBC 10.6(H) 3.8 - 9.9 K/cumm Hgb 8.4(L) 11.9 - 15.5 g/dL [facility] Hct 27.3(L) 35.6 - 45.5 % [facility] Plt 352 150 - 400 K/cumm [facility] MPV 10.0 9.1 - 12.3 fL [facility] RBC 2.91(L) 3.90 - 5.20 M/cumm [facility] MCV 93.8 81.3 - 96.4 fL [facility] MCH 28.9 27.1 - 33.3 pg [facility] MCHC 30.8(L) 32.3 - 35.7 g/dL [facility] RDW CV 13.7 11.1 - 14.9 % [facility] RDW SD 46.5 35.7 - 48.1 fL [facility] NRBC abs 0.00 0.00 - 0.01 K/cumm [facility] Blood 09/22/2023 8:04 PM CDT 09/22/2023 8:20 PM CDT Ibrahima Middleton MD LAB BLOOD ORDERABLES Final Result Performing Organization Address City/[facility]/ZIP Co de Phone Number [facility] [place] [address] * (ABNORMAL) Basic metabolic panel (09/22/2023 8:04 PM CDT) [facility] Sodium 138 135 - 145 mmol/L Potassium, pl 4.5 3.3 - 4.9 mmol/L [facility] Chloride 102 97 - 110 mmol/L [facility] CO2 30 22 - 32 mmol/L [facility] Anion gap 6 2 - 15 mmol/L [facility] BUN 9 6 - 25 mg/dL [facility] Creatinine 0.42(L) 0.60 - 1.10 mg/dL [facility] Glucose 135 70 - 199 mg/dL [facility] Comment: Interpretive Data Fasting glucose >/= [...] 2022. Calcium 8.0(L) 8.5 - 10.3 mg/dL [facility] Blood 09/22/2023 8:04 PM CDT 09/22/2023 8:20 PM CDT Ibrahima Middleton MD LAB BLOOD ORDERABLES Final Result Performing Organization Address [facility] Co de Phone Number [facility] [place] [address] * Critical Care (09/22/2023 7:39 PM CDT) [...] plan with the ICU team and other medical/business continuity consultant staff, making frequent assessments and decisions [...] DEVIC E Final Result Performing Organization Address [facility] de Phone Number [facility] [place] [address] * POCT glucose (09/22/2023 3:23 AM CDT) Glucose, POC 104 70 - 199 mg/dL Blood 09/22/2023 3:23 AM CDT 09/22/2023 3:23 AM CDT Ibrahima Middleton MD LAB POCT ORDERABLES - DEVIC E Final Result Performing Organization Address [facility] de Phone Number [facility] [place] [address] * POCT glucose (09/21/2023 11:34 PM CDT) Glucose, POC 115 70 - 199 mg/dL Blood 09/21/2023 11:3 4 PM CDT 09/21/2023 11:34 PM CDT Ibrahima Middleton MD LAB POCT ORDERABLES - DEVIC E Final Result Performing Organization Address [facility] de Phone Number [facility] [place] [address] * eGFR (09/21/2023 8:51 PM CDT) eGFR [...] MD LAB BLOOD ORDERABLES Final Result [facility] Department [place] [address] * Phosphorus (09/21/2023 8:51 PM CDT) Phosphorus, pl 2.5 2.3 - 4.5 mg/dL Blood 09/21/2023 8:51 PM CDT 09/21/2023 9:41 PM CDT Ibrahima Middleton MD LAB BLOOD ORDERABLES Final Result [facility] [place] [address] * Magnesium (09/21/2023 8:51 PM CDT) Magnesium 1.8 1.4 - 2.5 mg/dL Blood 09/21/2023 8:51 PM CDT 09/21/2023 9:41 PM CDT Ibrahima Middleton MD LAB BLOOD ORDERABLES Final Result [facility] Department [place] [address] * (ABNORMAL) CBC without differential (09/21/2023 8:51 PM CDT) Pathologist [facility] WBC 12.3(H) 3.8 - 9.9 K/cumm Hgb 9.1(L) 11.9 - 15.5 g/dL [facility] Hct 28.1(L) 35.6 - 45.5 % [facility] Plt 348 150 - 400 K/cumm [facility] MPV 10.4 9.1 - 12.3 fL [facility] RBC 3.04(L) 3.90 - 5.20 M/cumm [facility] MCV 92.4 81.3 - 96.4 fL [facility] MCH 29.9 27.1 - 33.3 pg [facility] MCHC 32.4 32.3 - 35.7 g/dL [facility] RDW CV 13.6 11.1 - 14.9 % [facility] RDW SD 45.5 35.7 - 48.1 fL [facility] NRBC abs 0.00 0.00 - 0.01 K/cumm [facility] Blood 09/21/2023 8:51 PM CDT 09/21/2023 9:42 PM CDT Ibrahima Middleton MD LAB BLOOD ORDERABLES Final Result [facility] [place] [address] * (ABNORMAL) Basic metabolic panel (09/21/2023 8:51 PM CDT) Pathologist [facility] Sodium 139 135 - 145 mmol/L Potassium, pl 4.3 3.3 - 4.9 mmol/L [facility] Chloride 105 97 - 110 mmol/L [facility] CO2 29 22 - 32 mmol/L [facility] Anion gap 5 2 - 15 mmol/L [facility] BUN 6 6 - 25 mg/dL [facility] Creatinine 0.37(L) 0.60 - 1.10 mg/dL [facility] Glucose 143 70 - 199 mg/dL [facility] Comment: Interpretive Data Fasting glucose >/= [...] 2022. Calcium 7.8(L) 8.5 - 10.3 mg/dL [facility] Blood 09/21/2023 8:51 PM CDT 09/21/2023 9:41 PM CDT us Ibrahima Middleton MD LAB BLOOD ORDERABLES Final Result [facility] [place] [address] * Critical Care (09/21/2023 8:02 PM CDT) [...] plan with the ICU team and other medical/business continuity consultant staff, making frequent assessments and decisions [...] DEVIC E Final Result Performing Organization Address [facility] Co de Phone Number [facility] [place] [address] * POCT glucose (09/21/2023 3:43 PM CDT) Glucose, POC 129 70 - 199 mg/dL Blood 09/21/2023 3:43 PM CDT 09/21/2023 3:43 PM CDT Ibrahima Middleton MD LAB POCT ORDERABLES - DEVIC E Final Result Performing Organization Address [facility] Co de Phone Number [facility] [place] [address] * Blood culture Blood Arm, right (09/21/2023 [...] organism identification may be performed using the [employer]on[employer] Gram-Positive Blood Culture Assay. This assay detects microbial DNA in positive blood culture broth via hybridization of target DNA to capture oligonucleotides on a microarray. This assay has been cleared by the [place] Food and Drug Administration and its performance characteristics have been verified by the [facility] Microbiology [facility]. 5. ?For questions about this culture, contact the Microbiology Laboratory at [phone]. Interpretive data was last revised on 2019. us Ibrahima Middleton MD LAB MICROBIOLOGY - GENERAL ORDERABLES Final Result [facility] [place] [address] * Blood culture Blood (09/21/2023 12:19 PM [...] organism identification may be performed using the [employer]on[employer] Gram-Positive Blood Culture Assay. This assay detects microbial DNA in positive blood culture broth via hybridization of target DNA to capture oligonucleotides on a microarray. This assay has been cleared by the [place] Food and Drug Administration and its performance characteristics have been verified by the [facility]. 5. ?For questions about this culture, contact the Microbiology Laboratory at [phone]. Interpretive data was last revised on 2019. Ibrahima Middleton MD LAB MICROBIOLOGY - GENERAL ORDERABLES Final Result [facility] [place] [address] * POCT glucose (09/21/2023 11:36 AM CDT) [facility] Signature Glucose, POC 128 70 - 199 mg/dL Blood 09/21/2023 11:3 6 AM CDT 09/21/2023 11:36 AM CDT Ibrahima Middleton MD LAB POCT ORDERABLES - DEVIC E Final Result [facility] [place] [address] * XR Chest 1 View (09/21/2023 10:57 [...] Clement auris DNA Not Detected Not Detected [facility] Comment: Interpretive Data Testing performed by [facility] Molecular Infectious Disease Laboratory using the [email or web address] Liaison MDX Clement auris assay. ??This assay detects DNA from Clement auris using Real-Time PCR. ??This assay is laboratory developed and is not cleared by the [facility] Food and Drug Administration. ??The performance characteristics have been verified by the [facility] Infectious Disease [facility]. Interpretive data was last reviewed on 08/05/2023 Axilla/Groin 09/21/2023 9:51 AM CDT 09/21/2023 10:10 AM CDT Jacoby Nguyen MD LAB MICROBIOLOGY - GENERAL OR DERABLES Final Result Performing Organization Address City/[facility]/ZIP Co de Phone Number [facility] Department [place] [address] [facility] * POCT glucose (09/21/2023 7:34 AM CDT) Pathologist [facility] Glucose, POC 110 70 - 199 mg/dL Blood 09/21/2023 7:34 AM CDT 09/21/2023 7:34 AM CDT Ibrahima Middleton MD LAB POCT ORDERABLES - DEVIC E Final Result [facility] Department [place] [address] * Critical Care (09/21/2023 6:43 AM CDT) [...] plan with the ICU team and other medical/business continuity consultant staff, making frequent assessments and decisions [...] ORDERABLES - DEVIC E Final Result [facility] [place] [address] * Critical Care (09/21/2023 2:13 AM CDT) [...] plan with the ICU team and other medical/business continuity consultant staff, making frequent assessments and decisions [...] DEVIC E Final Result Performing Organization Address City/[facility]/ZIP Co de Phone Number [facility] [place] [address] * eGFR (09/20/2023 8:27 PM CDT) [facility] eGFR >90 >=60 mL/min/1. 73 m2 Comment: [...] BLOOD ORDERABLES Final Result Performing Organization Address City/[facility]/ZIP Co de Phone Number [facility]ur[facility] Department [place] [address] * Phosphorus (09/20/2023 8:27 PM CDT) Pathologist [facility] Phosphorus, pl 3.5 2.3 - 4.5 mg/dL Blood 09/20/2023 8:27 PM CDT 09/20/2023 8:46 PM CDT Ibrahima Middleton MD LAB BLOOD ORDERABLES Final Result Performing Organization Address [facility] Co de Phone Number [facility] [place] [address] * Magnesium (09/20/2023 8:27 PM CDT) [facility] Magnesium 2.4 1.4 - 2.5 mg/dL Blood 09/20/2023 8:27 PM CDT 09/20/2023 8:46 PM CDT Ibrahima Middleton MD LAB BLOOD ORDERABLES Final Result Performing Organization Address [facility] de Phone Number [facility] [place] [address] * (ABNORMAL) CBC without differential (09/20/2023 8:27 PM CDT) [facility] WBC 10.7(H) 3.8 - 9.9 K/cumm Hgb 9.1(L) 11.9 - 15.5 g/dL [facility] Hct 28.2(L) 35.6 - 45.5 % [facility] Plt 270 150 - 400 K/cumm [facility] MPV 10.3 9.1 - 12.3 fL [facility] RBC 3.08(L) 3.90 - 5.20 M/cumm [facility] MCV 91.6 81.3 - 96.4 fL [facility] MCH 29.5 27.1 - 33.3 pg [facility] MCHC 32.3 32.3 - 35.7 g/dL [facility] RDW CV 13.2 11.1 - 14.9 % [facility] RDW SD 44.2 35.7 - 48.1 fL [facility] NRBC abs 0.00 0.00 - 0.01 K/cumm [facility] Blood 09/20/2023 8:27 PM CDT 09/20/2023 8:45 PM CDT Ibrahima Middleton MD LAB BLOOD ORDERABLES Final Result Performing Organization Address City/[facility]/ZIP Co de Phone Number [facility] Department [place] [address] * (ABNORMAL) Basic metabolic panel (09/20/2023 8:27 PM CDT) [facility] Sodium 137 135 - 145 mmol/L Potassium, pl 4.2 3.3 - 4.9 mmol/L [facility] Chloride 103 97 - 110 mmol/L [facility] CO2 28 22 - 32 mmol/L [facility] Anion gap 6 2 - 15 mmol/L [facility] BUN 7 6 - 25 mg/dL [facility] Creatinine 0.36(L) 0.60 - 1.10 mg/dL [facility] Glucose 125 70 - 199 mg/dL [facility] Comment: Interpretive Data Fasting glucose >/= [...] 2022. Calcium 7.7(L) 8.5 - 10.3 mg/dL [facility] Blood 09/20/2023 8:27 PM CDT 09/20/2023 8:46 PM CDT Ibrahima Middleton MD LAB BLOOD ORDERABLES Final Result Performing Organization Address [facility]/ZIP Co de Phone Number [facility] Department [place] [address] * POCT glucose (09/20/2023 7:44 PM CDT) Glucose, POC 122 70 - 199 mg/dL Blood 09/20/2023 7:44 PM CDT 09/20/2023 7:44 PM CDT Ibrahima Middleton MD LAB POCT ORDERABLES - DEVIC E Final Result [facility] [place] [address] * Infection Prevention Clement auris PCR, surveillance Axilla/Groin (09/20/2023 4:29 PM CDT) [facility] Clement auris DNA Not Detected Not Detected [facility] Comment: Interpretive Data Testing performed by [facility] Infectious Disease Laboratory using the [email or web address] Liaison MDX Clement auris assay. ??This assay detects DNA from Clement auris using Real-Time PCR. ??This assay is laboratory developed and is not cleared by the [facility] Food and Drug Administration. ??The performance characteristics have been verified by the [facility] Infectious Disease [facility]. Interpretive data was last reviewed on 08/05/2023 Axilla/Groin 09/20/2023 4:29 PM CDT 09/20/2023 4:48 PM CDT Jacoby Nguyen MD LAB MICROBIOLOGY - GENERAL OR DERABLES Final Result [facility] [place] [address] [facility] * POCT glucose (09/20/2023 4:00 PM CDT) Glucose, POC 116 70 - 199 mg/dL Blood 09/20/2023 4:00 PM CDT 09/20/2023 4:00 PM CDT us Ibrahima Middleton MD LAB POCT ORDERABLES - DEVIC E Final Result Performing Organization Address [facility] Co de Phone Number [facility] [place] [address] * eGFR (09/20/2023 3:34 PM CDT) eGFR [...] BLOOD ORDERABLES Final Result Performing Organization Address City/[facility] Co de Phone Number [facility]AY [facility] [place] [address] * (ABNORMAL) CBC without differential (09/20/2023 3:34 PM CDT) [facility] WBC 9.9 3.8 - 9.9 K/cumm Hgb 9.8(L) 11.9 - 15.5 g/dL [facility] Hct 30.7(L) 35.6 - 45.5 % [facility] Plt 277 150 - 400 K/cumm [facility] MPV 10.2 9.1 - 12.3 fL [facility] RBC 3.35(L) 3.90 - 5.20 M/cumm [facility] MCV 91.6 81.3 - 96.4 fL [facility] MCH 29.3 27.1 - 33.3 pg [facility] MCHC 31.9(L) 32.3 - 35.7 g/dL [facility] RDW CV 13.3 11.1 - 14.9 % [facility] RDW SD 44.0 35.7 - 48.1 fL [facility] NRBC abs 0.00 0.00 - 0.01 K/cumm [facility] Blood 09/20/2023 3:34 PM CDT 09/20/2023 3:50 PM CDT Ibrahima Middleton MD LAB BLOOD ORDERABLES Final Result Performing Organization Address City/[facility] Co de Phone Number [facility] [place] [address] * Phosphorus (09/20/2023 3:34 PM CDT) [facility] Phosphorus, pl 3.3 2.3 - 4.5 mg/dL Blood 09/20/2023 3:34 PM CDT 09/20/2023 3:50 PM CDT Ibrahima Middleton MD LAB BLOOD ORDERABLES Final Result Performing Organization Address City/[facility] Co de Phone Number [facility] [place] [address] * Magnesium (09/20/2023 3:34 PM CDT) Pathologist [facility] Magnesium 1.5 1.4 - 2.5 mg/dL Blood 09/20/2023 3:34 PM CDT 09/20/2023 3:50 PM CDT Ibrahima Middleton MD LAB BLOOD ORDERABLES Final Result [facility] [place] [address] * (ABNORMAL) Basic metabolic panel (09/20/2023 3:34 PM CDT) Pathologist [facility] Sodium 140 135 - 145 mmol/L Potassium, pl 3.7 3.3 - 4.9 mmol/L [facility] Chloride 102 97 - 110 mmol/L [facility] CO2 27 22 - 32 mmol/L [facility] Anion gap 11 2 - 15 mmol/L [facility] BUN 7 6 - 25 mg/dL [facility] Creatinine 0.35(L) 0.60 - 1.10 mg/dL [facility] Glucose 136 70 - 199 mg/dL [facility] Comment: Interpretive Data Fasting glucose >/= [...] 2022. Calcium 7.9(L) 8.5 - 10.3 mg/dL [facility] Blood 09/20/2023 3:34 PM CDT 09/20/2023 3:50 PM CDT Ibrahima Middleton MD LAB BLOOD ORDERABLES Final Result [facility] [place] [address] * [place] Fluoroscopy < 1 Hour (09/20/2023 1:05 PM CDT) Narrative [facility] - 09/20/2023 1:05 PM CDT The images from this study are not interpreted by Radiology. ??Please refer to the physician's procedure / OR operative note. us Hans Rodriguez MD IMG FLUOROSCOPY PROCEDU RES Final Result Performing Organization Address City/[facility]/ZIP Co de Phone Number [email or web address] * (ABNORMAL) POC Blood Gas and Chemistries, Arterial - (09/20/2023 9:52 AM CDT) pH, Art POC 7.53(H) 7.35 - 7.45 pCO2, Art POC 41 35 - 45 mmHg [facility] pO2, Art POC 401(H) 83 - 108 mmHg [facility] Na, POC 137 135 - 145 mmol/L [facility] K POC 3.6 3.3 - 4.9 mmol/L [facility] Comment: Interpretive Data Not all point of care methods assess for hemolysis. Confirm with instrument and retest K+ if not consistent with clinical signs and symptoms. Current Interpretive Data was last revised on 2023. Cl, POC 108 97 - 110 mmol/L [facility] Ionized Ca, POC 4.64 4.50 - 5.10 mg/dL [facility] Glucose, POC 137 70 - 199 mg/dL [facility] Lactate, POC 1.2 0.7 - 2.2 mmol/L [facility] SO2 (cee) arterial 100(H) 90 - 95 % [facility] Base excess, POC 10.6 mmol/L [facility] HCO3, Art POC 34(H) 20 - 30 mmol/L [facility] Hct, POC 28.0(L) 36.3 - 45.3 % [facility] O2 Sat, Art POC (Calc) 100 % [facility] Total Hb, POC 9.4(L) 11.9 - 15.5 g/dL [facility] Blood 09/20/2023 9:52 AM CDT 09/20/2023 9:52 AM CDT Ibrahima Middleton MD LAB POCT ORDERABLES - DEVIC E Final Result Performing Organization Address [facility] de Phone Number [facility] [place] [address] * (ABNORMAL) Protime-INR (09/19/2023 11:58 PM CDT) PT 14.4(H) 10.3 - 13.7 sec INR 1.26(H) 0.90 - 1.20 [facility] Comment: Interpretive data Oral anticoagulant therapeutic ranges: Venous thromboembolism prophylaxis or treatment: 2.0-3.0 CARDIOLOGY Standard range: 2.0-3.0 High-intensity range: 2.5-3.5 Refer to indication-specific guidelines for appropriate target ranges for prosthetic heart valve replacement. Current interpretive data was last revised on 2019. Blood 09/19/2023 11:5 8 PM CDT 09/20/2023 12:40 AM CDT Ibrahima Middleton MD LAB BLOOD ORDERABLES Final Result Performing Organization Address [facility] de Phone Number [facility] Department [place] [address] * eGFR (09/19/2023 11:58 PM CDT) eGFR [...] BLOOD ORDERABLES Final Result Performing Organization Address City/[facility] Co de Phone Number FAY WILKINS Anuradha [facility] [place] [address] * aPTT (09/19/2023 11:58 PM CDT) aPTT [...] BLOOD ORDERABLES Final Result Performing Organization Address City/[facility] Co de Phone Number FAY WILKINS Anuradha [facility] [place] [address] * Type and screen (09/19/2023 11:58 PM CDT) Alejandrina, indirect Negative ABO Rh O Positive [facility] Blood 09/19/2023 11:5 8 PM CDT 09/20/2023 12:55 AM CDT Narrative [facility] - 09/20/2023 2:02 AM CDT Has the patient had Daratumumab or Isatuximab in the past 6 months?->Unknown us Ibrahima Middleton MD LAB BLOOD BANK TEST ORDERAB LES Final Result [facility] Department [place] [address] * (ABNORMAL) Basic metabolic panel (09/19/2023 11:58 PM CDT) Pathologist [facility] Sodium 141 135 - 145 mmol/L Potassium, pl 3.6 3.3 - 4.9 mmol/L [facility] Chloride 103 97 - 110 mmol/L [facility] CO2 29 22 - 32 mmol/L [facility] Anion gap 9 2 - 15 mmol/L [facility] BUN 8 6 - 25 mg/dL [facility] Creatinine 0.44(L) 0.60 - 1.10 mg/dL [facility] Glucose 125 70 - 199 mg/dL [facility] Comment: Interpretive Data Fasting glucose >/= [...] 2022. Calcium 8.4(L) 8.5 - 10.3 mg/dL [facility] Blood 09/19/2023 11:5 8 PM CDT 09/20/2023 12:44 AM CDT Ibrahima Middleton MD LAB BLOOD ORDERABLES Final Result Performing Organization Address City/[facility] Co de Phone Number [facility] [place] [address] * Magnesium (09/19/2023 11:58 PM CDT) Pathologist [facility] Magnesium 1.6 1.4 - 2.5 mg/dL Blood 09/19/2023 11:5 8 PM CDT 09/20/2023 12:44 AM CDT Ibrahima Middleton MD LAB BLOOD ORDERABLES Final Result Performing Organization Address [facility] de Phone Number [facility] [place] [address] * (ABNORMAL) CBC without differential (09/19/2023 11:58 PM CDT) [facility] WBC 9.5 3.8 - 9.9 K/cumm Hgb 9.8(L) 11.9 - 15.5 g/dL [facility] Hct 30.8(L) 35.6 - 45.5 % [facility] Plt 270 150 - 400 K/cumm [facility] MPV 10.7 9.1 - 12.3 fL [facility] RBC 3.37(L) 3.90 - 5.20 M/cumm [facility] MCV 91.4 81.3 - 96.4 fL [facility] MCH 29.1 27.1 - 33.3 pg [facility] MCHC 31.8(L) 32.3 - 35.7 g/dL [facility] RDW CV 13.2 11.1 - 14.9 % [facility] RDW SD 43.8 35.7 - 48.1 fL [facility] NRBC abs 0.00 0.00 - 0.01 K/cumm [facility] Blood 09/19/2023 11:5 8 PM CDT 09/20/2023 12:45 AM CDT Ibrahima Middleton MD LAB BLOOD ORDERABLES Final Result Performing Organization Address City/[facility] Co de Phone Number FAY [facility] [place] [address] * Phosphorus (09/19/2023 11:58 PM CDT) Phosphorus, pl 2.7 2.3 - 4.5 mg/dL Blood 09/19/2023 11:5 8 PM CDT 09/20/2023 12:44 AM CDT Ibrahima Middleton MD LAB BLOOD ORDERABLES Final Result Performing Organization Address [facility] de Phone Number [facility] [place] [address] * CT Head WO Contrast (09/19/2023 10:48 [...] Middleton MD LAB BLOOD ORDERABLES Final Result [facility] [place] [address] * (ABNORMAL) Basic metabolic panel (09/19/2023 1:35 AM CDT) Sodium 144 135 - 145 mmol/L Potassium, pl 3.7 3.3 - 4.9 mmol/L [facility] Chloride 107 97 - 110 mmol/L [facility] CO2 29 22 - 32 mmol/L [facility] Anion gap 8 2 - 15 mmol/L [facility] BUN 6 6 - 25 mg/dL [facility] Creatinine 0.41(L) 0.60 - 1.10 mg/dL [facility] Glucose 87 70 - 199 mg/dL [facility] Comment: Interpretive Data Fasting glucose >/= [...] 2022. Calcium 8.2(L) 8.5 - 10.3 mg/dL [facility] Blood 09/19/2023 1:35 AM CDT 09/19/2023 1:53 AM CDT Ibrahima Middleton MD LAB BLOOD ORDERABLES Final Result Performing Organization Address City/[facility]/ZIP Co de Phone Number [facility] Department [place] [address] * Magnesium (09/19/2023 1:35 AM CDT) Pathologist [facility] Magnesium 1.7 1.4 - 2.5 mg/dL Blood 09/19/2023 1:35 AM CDT 09/19/2023 1:53 AM CDT Ibrahima Middleton MD LAB BLOOD ORDERABLES Final Result Performing Organization Address City/[facility] de Phone Number [facility] Department [place] [address] * (ABNORMAL) CBC without differential (09/19/2023 1:35 AM CDT) Pathologist [facility] WBC 8.8 3.8 - 9.9 K/cumm Hgb 9.3(L) 11.9 - 15.5 g/dL [facility] Hct 28.6(L) 35.6 - 45.5 % [facility] Plt 217 150 - 400 K/cumm [facility] MPV 10.4 9.1 - 12.3 fL [facility] RBC 3.10(L) 3.90 - 5.20 M/cumm [facility] MCV 92.3 81.3 - 96.4 fL [facility] MCH 30.0 27.1 - 33.3 pg [facility] MCHC 32.5 32.3 - 35.7 g/dL [facility] RDW CV 13.2 11.1 - 14.9 % [facility] RDW SD 44.3 35.7 - 48.1 fL [facility] NRBC abs 0.00 0.00 - 0.01 K/cumm [facility] Blood 09/19/2023 1:35 AM CDT 09/19/2023 1:54 AM CDT Ibrahima Middleton MD LAB BLOOD ORDERABLES Final Result [facility] Department [place] [address] * (ABNORMAL) Phosphorus (09/19/2023 1:35 AM CDT) Phosphorus, pl 2.2(L) 2.3 - 4.5 mg/dL Blood 09/19/2023 1:35 AM CDT 09/19/2023 1:53 AM CDT Ibrahima Middleton MD LAB BLOOD ORDERABLES Final Result Performing Organization Address City/[facility] Co de Phone Number [facility] Department [place] [address] * MRI Cervical Spine WO Contrast (09/18/2023 [...] it. Electronically signed by: Inocencio Hilario M.D. us Hannah Chun NP IMG MRI PROCEDURES Final Result * [employer] Evaluation and Treatment (09/18/2023 8:49 AM CDT) Narrative Buffy Caicedo SLP - 09/18/2023 8:49 AM CDT Buffy Caicedo SLP ? 09/18/2023 ??9:41 AM Speech-Language Pathology: Clinical Bedside Swallow [facility]/PM 78 y.o. female with OA of [...] 09/18/23 General Observations: Swallow evaluation completed on 0. Pt awake, in bed upon SALVAGE WORKER arrival in room. PCT present and assisting [...] reports no difficulty with mastication without dentures. SALVAGE WORKER assist with feeding pt breakfast. Pt observed [...] Aspiration Risk: No aspiration risk (170-200) Plan [employer] Frequency of Services during current admission: One-time visit (Discharge from this service) [employer] WORKER Recommendation (Add'l Services): No further [employer] WORKER indicated Further Assessment/Follow up Indicated: Recommendations: ??(No further ST needs for swallowing.) Next Visit Plan:No further ST warranted Additional Referrals: none Please reference care plan for treatment goals, if indicated. Discharge Summary Statement If this is the last swallow therapy visit, this serves as the discharge summary. us Amy Lara NP [employer] WORK[employer] ORDERABLES Final R esult * eGFR (09/18/2023 [...] Middleton MD LAB BLOOD ORDERABLES Final Result [facility] [place] [address] * (ABNORMAL) Basic metabolic panel (09/18/2023 1:25 AM CDT) [facility] Sodium 140 135 - 145 mmol/L Potassium, pl 3.1(L) 3.3 - 4.9 mmol/L [facility] Chloride 106 97 - 110 mmol/L [facility] CO2 27 22 - 32 mmol/L [facility] Anion gap 7 2 - 15 mmol/L [facility] BUN 9 6 - 25 mg/dL [facility] Creatinine 0.45(L) 0.60 - 1.10 mg/dL [facility] Glucose 97 70 - 199 mg/dL [facility] Comment: Interpretive Data Fasting glucose >/= [...] 2022. Calcium 7.8(L) 8.5 - 10.3 mg/dL [facility] Blood 09/18/2023 1:25 AM CDT 09/18/2023 2:00 AM CDT Ibrahima Middleton MD LAB BLOOD ORDERABLES Final Result Performing Organization Address [facility] de Phone Number [facility] [place] [address] * Magnesium (09/18/2023 1:25 AM CDT) [facility] Magnesium 1.7 1.4 - 2.5 mg/dL Blood 09/18/2023 1:25 AM CDT 09/18/2023 2:00 AM CDT Ibrahima Middleton MD LAB BLOOD ORDERABLES Final Result Performing Organization Address [facility] de Phone Number [facility] [place] [address] * (ABNORMAL) CBC without differential (09/18/2023 1:25 AM CDT) [facility] WBC 8.4 3.8 - 9.9 K/cumm Hgb 9.3(L) 11.9 - 15.5 g/dL [facility] Hct 28.4(L) 35.6 - 45.5 % [facility] Plt 175 150 - 400 K/cumm [facility] MPV 11.1 9.1 - 12.3 fL [facility] RBC 3.14(L) 3.90 - 5.20 M/cumm [facility] MCV 90.4 81.3 - 96.4 fL [facility] MCH 29.6 27.1 - 33.3 pg [facility] MCHC 32.7 32.3 - 35.7 g/dL [facility] RDW CV 13.2 11.1 - 14.9 % [facility] RDW SD 43.3 35.7 - 48.1 fL [facility] NRBC abs 0.00 0.00 - 0.01 K/cumm [facility] Blood 09/18/2023 1:25 AM CDT 09/18/2023 1:59 AM CDT Ibrahima Middleton MD LAB BLOOD ORDERABLES Final Result Performing Organization Address [facility] de Phone Number [facility] [place] [address] * Phosphorus (09/18/2023 1:25 AM CDT) Phosphorus, pl 2.9 2.3 - 4.5 mg/dL Blood 09/18/2023 1:25 AM CDT 09/18/2023 2:00 AM CDT Ibrahima Middleton MD LAB BLOOD ORDERABLES Final Result Performing Organization Address [facility] [place] [address] * eGFR (09/16/2023 10:59 PM CDT) eGFR [...] Middleton MD LAB BLOOD ORDERABLES Final Result [facility] [place] [address] * (ABNORMAL) Basic metabolic panel (09/16/2023 10:59 PM CDT) Pathologist [facility] Sodium 141 135 - 145 mmol/L Potassium, pl 3.8 3.3 - 4.9 mmol/L [facility] Chloride 108 97 - 110 mmol/L [facility] CO2 28 22 - 32 mmol/L [facility] Anion gap 5 2 - 15 mmol/L [facility] BUN 12 6 - 25 mg/dL [facility] Creatinine 0.54(L) 0.60 - 1.10 mg/dL [facility] Glucose 130 70 - 199 mg/dL [facility] Comment: Interpretive Data Fasting glucose >/= [...] 2022. Calcium 8.0(L) 8.5 - 10.3 mg/dL [facility] Blood 09/16/2023 10:5 9 PM CDT 09/17/2023 12:11 AM CDT Ibrahima Middleton MD LAB BLOOD ORDERABLES Final Result Performing Organization Address City/[facility] Co de Phone Number [facility] [place] [address] * Magnesium (09/16/2023 10:59 PM CDT) Pathologist [facility] Magnesium 1.5 1.4 - 2.5 mg/dL Blood 09/16/2023 10:5 9 PM CDT 09/17/2023 12:11 AM CDT Ibrahima Middleton MD LAB BLOOD ORDERABLES Final Result Performing Organization Address [facility] de Phone Number [facility] [place] [address] * (ABNORMAL) CBC without differential (09/16/2023 10:59 PM CDT) [facility] WBC 10.4(H) 3.8 - 9.9 K/cumm Hgb 10.3(L) 11.9 - 15.5 g/dL [facility] Hct 32.3(L) 35.6 - 45.5 % [facility] Plt 179 150 - 400 K/cumm [facility] MPV 11.1 9.1 - 12.3 fL [facility] RBC 3.46(L) 3.90 - 5.20 M/cumm [facility] MCV 93.4 81.3 - 96.4 fL [facility] MCH 29.8 27.1 - 33.3 pg [facility] MCHC 31.9(L) 32.3 - 35.7 g/dL [facility] RDW CV 13.1 11.1 - 14.9 % [facility] RDW SD 44.7 35.7 - 48.1 fL [facility] NRBC abs 0.00 0.00 - 0.01 K/cumm [facility] Blood 09/16/2023 10:5 9 PM CDT 09/17/2023 12:12 AM CDT Ibrahima Middleton MD LAB BLOOD ORDERABLES Final Result Performing Organization Address [facility] Co de Phone Number [facility] Department [place] [address] * (ABNORMAL) Phosphorus (09/16/2023 10:59 PM CDT) Phosphorus, pl 1.7(L) 2.3 - 4.5 mg/dL Blood 09/16/2023 10:5 9 PM CDT 09/17/2023 12:11 AM CDT Ibrahima Middleton MD LAB BLOOD ORDERABLES Final Result Performing Organization Address [facility] de Phone Number [facility] Department [place] [address] * XR Tibia Fibula Left 2 Views [...] 1 Hour (09/16/2023 3:21 PM CDT) Narrative [facility] - 09/16/2023 3:24 PM CDT The images [...] Bagley MD LAB BLOOD ORDERABLES Final Result [facility] [place] [address] * [place] [facility] ILL/INJURED PATIENT INIT 30-74 MIN [...] ORDERA BLES Final Result [facility] [place] [address] * CT Chest Abdomen Pelvis W Contrast [...] 4:42 AM CDT) ABO Rh O Positive [facility] OTHER 09/16/2023 4:42 AM CDT 09/16/2023 4:58 AM CDT Ibrahima Middleton MD LAB BLOOD ORDERABLES Final Result [facility] [place] [address] [facility] * XR Tibia Fibula Left 2 Views [...] 12-LEAD (09/16/2023 3:02 AM CDT) Narrative [facility] - 09/16/2023 3:02 AM CDT Diogo Lee [...] ECG ORDERABLES Final Result Performing Organization Address City/[facility] Co de Phone Number [facility] * Magnesium (09/16/2023 3:02 AM CDT) Magnesium 2.0 1.4 - 2.5 mg/dL Blood 09/16/2023 3:02 AM CDT 09/16/2023 3:57 AM CDT Ibrahima Middleton MD LAB BLOOD ORDERABLES Final Result Performing Organization Address [facility] de Phone Number [facility] Department [place] [address] * eGFR (09/16/2023 3:02 AM CDT) eGFR [...] ORDERABLES Final Re sult Performing Organization Address [facility] de Phone Number [facility] [place] [address] * (ABNORMAL) Urinalysis, microscopic only (09/16/2023 3:02 AM CDT) WBC, ur 0-5 0 - 5 /HPF RBC, ur 11-20(A) 0 - 2 /HPF [facility] Epithelial cells, squamous, ur 1-5 0 - 5 /HPF [facility] Bacteria, ur Trace(A) [facility] Mucous, ur Present(A) [facility] Hyaline casts, ur 6-10 0 - 10 /LPF [facility] Culture Reflex Comment Reflex conditions for urine culture (WBC >10) not met. [facility] Urine 09/16/2023 3:02 AM CDT 09/16/2023 3:22 AM CDT Sara Jimenez MD LAB URINE ORDERABLES Final Re sult Performing Organization Address [facility] Co de Phone Number [facility] [place] [address] * (ABNORMAL) Differential, auto (09/16/2023 3:02 AM CDT) Neutrophil abs 10.0(H) 1.5 - 6.5 K/cumm Imm gran abs 0.1 0.0 - 0.1 K/cumm [facility] Lymphocyte abs 1.0 0.8 - 3.3 K/cumm [facility] Monocyte abs 1.6(H) 0.2 - 0.8 K/cumm [facility] Eosinophil abs 0.0 0.0 - 0.5 K/cumm [facility] Basophil abs 0.0 0.0 - 0.1 K/cumm [facility] Neutrophil pct 78.6 % [facility] Comment: Interpretive Data Percent cell count reference ranges are not reported, since discordance with absolute values may lead to misinterpretation of CBC data. Current Interpretive Data was last revised on 2017. Imm gran pct 0.6 % [facility] Comment: Interpretive Data Percent cell count reference ranges are not reported, since discordance with absolute values may lead to misinterpretation of CBC data. Current Interpretive Data was last revised on 2017. Lymphocyte pct 7.9 % [facility] Comment: Interpretive Data Percent cell count reference ranges are not reported, since discordance with absolute values may lead to misinterpretation of CBC data. Current Interpretive Data was last revised on 2017. Monocyte pct 12.6 % [facility] Comment: Interpretive Data Percent cell count reference ranges are not reported, since discordance with absolute values may lead to misinterpretation of CBC data. Current Interpretive Data was last revised on 2017. Eosinophil pct 0.1 % [facility] Comment: Interpretive Data Percent cell count reference ranges are not reported, since discordance with absolute values may lead to misinterpretation of CBC data. Current Interpretive Data was last revised on 2017. Basophil pct 0.2 % [facility] Comment: Interpretive Data Percent cell count reference ranges are not reported, since discordance with absolute values may lead to misinterpretation of CBC data. Current Interpretive Data was last revised on 2017. Blood 09/16/2023 3:02 AM CDT 09/16/2023 3:49 AM CDT Sara Jimenez MD LAB BLOOD ORDERABLES Final Re sult Performing Organization Address [facility] Co de Phone Number [facility] [place] [address] * (ABNORMAL) Creatine kinase (CK), total (09/16/2023 3:02 AM CDT) CK 1,389(H) 30 - 200 Units/L Blood 09/16/2023 3:02 AM CDT 09/16/2023 3:57 AM CDT Sara Jimenez MD LAB BLOOD ORDERABLES Final Re sult Performing Organization Address [facility] [place] [address] * Type and screen (09/16/2023 3:02 AM CDT) ABO Rh O Positive Alejandrina, indirect Negative [facility] Blood 09/16/2023 3:02 AM CDT 09/16/2023 3:44 AM CDT Narrative [facility] - 09/16/2023 4:38 AM CDT Has the patient had Daratumumab or Isatuximab in the past 6 months?->Unknown Sara Jimenez MD LAB BLOOD BANK TEST ORDERABLE S Final Result Performing Organization Address [facility] Co de Phone Number [facility] [place] [address] * (ABNORMAL) aPTT (09/16/2023 3:02 AM CDT) [...] ORDERABLES Final Re sult Performing Organization Address [facility] Co de Phone Number [facility] [place] [address] * (ABNORMAL) Protime-INR (09/16/2023 3:02 AM CDT) PT 14.0(H) 10.3 - 13.7 sec INR 1.23(H) 0.90 - 1.20 [facility] Comment: Interpretive data Oral anticoagulant therapeutic ranges: Venous thromboembolism prophylaxis or treatment: 2.0-3.0 CARDIOLOGY Standard range: 2.0-3.0 High-intensity range: 2.5-3.5 Refer to indication-specific guidelines for appropriate target ranges for prosthetic heart valve replacement. Current interpretive data was last revised on 2019. Blood 09/16/2023 3:02 AM CDT 09/16/2023 3:31 AM CDT Sara Jimenez MD LAB BLOOD ORDERABLES Final Re sult Performing Organization Address City/[facility] Co de Phone Number [facility] [place] [address] * (ABNORMAL) Comprehensive metabolic panel (09/16/2023 3:02 AM CDT) Sodium 137 135 - 145 mmol/L Potassium, pl 3.7 3.3 - 4.9 mmol/L [facility] Chloride 105 97 - 110 mmol/L [facility] CO2 23 22 - 32 mmol/L [facility] Anion gap 9 2 - 15 mmol/L [facility] BUN 20 6 - 25 mg/dL [facility] Creatinine 0.58(L) 0.60 - 1.10 mg/dL [facility] Glucose 101 70 - 199 mg/dL [facility] Comment: Interpretive Data Fasting glucose >/= [...] 2022. Calcium 8.4(L) 8.5 - 10.3 mg/dL [facility] Bilirubin, total 0.8 0.1 - 1.2 mg/dL [facility] Protein, pl 5.9(L) 6.5 - 8.5 g/dL [facility] Albumin 3.1(L) 3.5 - 5.0 g/dL [facility] Alk phos 78 40 - 130 Units/L [facility] ALT 33 7 - 45 Units/L [facility] AST 84(H) 10 - 45 Units/L [facility] Blood 09/16/2023 3:02 AM CDT 09/16/2023 3:57 AM CDT us Sara Jimenez MD LAB BLOOD ORDERABLES Final Re sult [facility] Department [place] [address] * (ABNORMAL) CBC with auto differential (09/16/2023 3:02 AM CDT) Pathologist [facility] WBC 12.7(H) 3.8 - 9.9 K/cumm Hgb 11.5(L) 11.9 - 15.5 g/dL [facility] Hct 35.2(L) 35.6 - 45.5 % [facility] Plt 209 150 - 400 K/cumm [facility] MPV 11.2 9.1 - 12.3 fL [facility] RBC 3.93 3.90 - 5.20 M/cumm [facility] MCV 89.6 81.3 - 96.4 fL [facility] MCH 29.3 27.1 - 33.3 pg [facility] MCHC 32.7 32.3 - 35.7 g/dL [facility] RDW CV 12.8 11.1 - 14.9 % [facility] RDW SD 42.1 35.7 - 48.1 fL [facility] NRBC abs 0.00 0.00 - 0.01 K/cumm [facility] Blood 09/16/2023 3:02 AM CDT 09/16/2023 3:49 AM CDT us Sara Jimenez MD LAB BLOOD ORDERABLES Final Re sult [facility] [place] [address] * (ABNORMAL) Urinalysis reflex to microscopic and culture Urine (09/16/2023 3:02 AM CDT) Color, ur Maryana Yellow Clarity, ur Clear Clear [facility] Specific gravity, ur 1.028 1.003 - 1.030 [facility] pH, urine 6.0 [facility] Comment: Interpretive Data ? Urine pH is affected by diet, medications, systemic acid-base disturbances, and renal tubular function. ??pH may affect urinary stone formation. ??For example, urine pH below 6.0 may help reduce the tendency for calcium phosphate stones and pH greater than 6.0 may reduce the tendency for uric acid stone formation. Source: [facility] [employer] Current Interpretive Data was last revised on 2017 Protein, ur ql 3+(A) Negative [facility] Glucose, ur ql Negative Negative [facility] Ketones, ur 2+(A) Negative [facility] Bilirubin, ur Negative Negative [facility] Blood, ur 2+(A) Negative [facility] Urobilinogen, ur <2.0 <2.0 mg/dL [facility] Nitrite, ur Negative Negative [facility] Leukocyte esterase, ur Negative Negative [facility] UA reflex comment Reflex to microscopic UA will be performed. [facility] Urine 09/16/2023 3:02 AM CDT 09/16/2023 3:22 AM CDT Result [facility] us Sara Jimenez MD LAB MICROBIOLOGY - GENERAL OR DERABLES Final Result [facility] [place] [address] * XR Outside Reference (09/16/2023 2:57 AM CDT) Impressions [email or web address] - 09/16/2023 2:57 AM CDT These images are for Reference purposes only and have not been reviewed by [facility]iology. ??There will be no report generated by a [facility] Radiologist. Narrative [facility] - 09/16/2023 2:57 AM CDT EXAMINATION: ??Images For Reference Purposes Only Sara Jimenez MD IMG XR PROCEDURES Final Resul t Performing Organization Address City/[facility] Co de Phone Number [email or web address] * XR Outside Reference (09/16/2023 2:56 AM CDT) Impressions [email or web address] - 09/16/2023 2:56 AM CDT These images are for Reference purposes only and have not been reviewed by [facility]. ??There will be no report generated by a [facility] Radiologist. Narrative [facility] - 09/16/2023 2:56 AM CDT EXAMINATION: ??Images For Reference Purposes Only us Sara Jimenez MD IMG XR PROCEDURES Final Resul t [email or web address] * XR Outside Reference (09/16/2023 2:55 AM CDT) Impressions [facility] - 09/16/2023 2:55 AM CDT These images are for Reference purposes only and have not been reviewed by [facility]. ??There will be no report generated by a [facility] Radiologist. Narrative [facility] - 09/16/2023 2:55 AM CDT EXAMINATION: ??Images For Reference Purposes Only Sara Jimenez MD IMG XR PROCEDURES Final Resul t Performing Organization Address [facility] de Phone Number [email or web address] * XR Outside Reference (09/16/2023 2:54 AM CDT) Impressions [facility] - 09/16/2023 2:54 AM CDT These images are for Reference purposes only and have not been reviewed by [facility]. ??There will be no report generated by a [facility] Radiologist. Narrative [facility] - 09/16/2023 2:54 AM CDT EXAMINATION: ??Images For Reference Purposes Only Sara Jimenez MD IMG XR PROCEDURES Final Resul t Performing Organization Address [facility] de Phone Number [email or web address] * Neuro [...] images may or may not represent the [place] source data set and thus may contain [...] IMAGING STUDY STUDY INITIALLY PERFORMED: 09/16/2023 at [facility]. TYPE OF STUDY: Multiple CT images of [...] IMAGING STUDY STUDY INITIALLY PERFORMED: 09/16/2023 at [facility]. TYPE OF STUDY: Multiple CT images of [...] images may or may not represent the [place] source data set and thus may contain [...] only and have not been reviewed by [facility] Radiology. ??There will be no report generated by a [facility] Radiologist. Narrative [email or web address] - 09/16/2023 2:51 AM [...] images may or may not represent the [place] source data set and thus may contain changes that may lower the accuracy of this second-opinion interpretation. Dictated by: Pdero Dias MD The radiology attending physician has personally reviewed this study, and had reviewed and/or edited this written report and agrees with it. Electronically signed by: Jason Serrato M.D. Narrative 09/16/2023 12:12 PM CDT EXAMINATION: RADIOLOGY CONSULTATION ON OUTSIDE IMAGING STUDY STUDY INITIALLY PERFORMED: 09/16/2023 at [facility]. TYPE OF STUDY: Multiple CT images of [...] IMAGING STUDY STUDY INITIALLY PERFORMED: 09/16/2023 at [facility]. TYPE OF STUDY: Multiple CT images of [...] images may or may not represent the [place] source data set and thus may contain [...] only and have not been reviewed by [facility]. ??There will be no report generated by a [facility] Radiologist. Narrative [email or web address] - 09/16/2023 2:42 AM CDT EXAMINATION: ??Images For Reference Purposes Only us Sara Jimenez MD IMG XR PROCEDURES Final Resul t [email or web address] documented in this encounter Visit Diagnoses Diagnosis Cervical spondylosis with myelopathy- Primary Other closed fracture of distal end of left tibia, initial encounter Closed fracture of shaft of left tibia, unspecified fracture morphology, initial encounter Hypocalcemia Closed fracture of part of tibia Closed fracture of unspecified part of tibia Closed fracture of shaft of left tibia, unspecified fracture morphology, initial encounter Other closed fracture of distal end of left tibia, initial encounter documented in this encounter Admitting Diagnoses Diagnosis [...] constipation, Starting on Thu09/23/23 at 1237, Indications: constipationIndications:constipation Given 09/23/2023 12:48 PM CDT 10 mg gabapentin (NEURONTIN) capsule 300 mg 300 [...] minute until desired level of alertness. Stop CONSULTING SOLUTION DIRECTOR and notify covering MD. This order has been ordered with CONSULTING SOLUTION DIRECTOR infusion, please review upon the discontinuation of CONSULTING SOLUTION DIRECTOR. For IV, administer over 30 seconds., Indications: [...] chloride 0.9% irrigation As needed, Starting on Thu09/16/23 at 1303, Intra-Op Given 09/16/2023 1:03 PM CDT 1,000 mL Surgical Site sodium chloride 0.9% irrigation As needed, Starting on Thu09/16/23 at 1303, Intra-Op Given 09/16/2023 1:03 PM CDT 3,000 mL Surgical Site traZODone (DESYREL) tablet 50 mg 50 mg, oral, Nightly, First dose on 09/19/23 at 2100 Given 09/28/2023 8:03 PM CDT 50 mg Given 09/27/2023 8:53 PM CDT 50 mg Given 09/26/2023 8:20 PM CDT 50 mg documented in this [...] Abdi Peterson RN)1509 (Given - Provider: Priscila Crespo RN)210 (Given - Provider: Abdi Peterson RN) 0510 (Given - Provider: Abdi Peterson RN)1346 (Given - Provider: Nancy Torrez)211 (Given - Provider: Blake Joseph RN) 0536 (Given - Provider: Blake Joseph RN)1740 [...] Priscila Crespo RN)1234 (Given - Provider: Priscila Crespo RN)1826 (Given - Provider: Priscila Crespo RN)2130 (Given - Provider: Dede Sahni RN) 0822 (Given - Provider: Nancy Torrez)1206 (Given - Provider: Nancy Torrez)1719 (Given - Provider: Nancy Torrez)2003 (Given - Provider: Blake Joseph RN) 0814 (Given - Provider: Priscila Crespo RN)1207 (Given - Provider: Priscila Crespo RN)1736 (Given - Provider: Priscila Crespo RN) polyethylene glycol (MIRALAX) packet 17 g 17 g, oral, Daily, First dose on Thu09/19/23 at 0900, Indications: constipation 0823 (Not Given - Provider: Priscila Crespo RN - Reason: Patient/family refused) 0923 (Not Given - Provider: Nancy Torrez - Reason: Patient/family refused) 1041 (Not Given - Provider: Priscila Crespo RN - Reason: Patient/family refused) senna-docusate (PERICOLACE) 8.6-50 mg per tablet 1 tablet 1 tablet, oral, 2 times daily, First dose on Thu09/16/23 at 2230, Hold for diarrhea., Indications: constipation 823 (Not Given - Provider: Priscila Crespo RN - Reason: Patient/family refused)2052 (Given - Provider: Abdi Peterson RN) 0822 (Given - Provider: Nancy Torrez)2004 (Not Given - Provider: Blake Joseph, TYLER - Reason: Order parameters not met) 0814 [...] minute until desired level of alertness. Stop CONSULTING SOLUTION DIRECTOR and notify covering MD. This order has been ordered with CONSULTING SOLUTION DIRECTOR infusion, please review upon the discontinuation of CONSULTING SOLUTION DIRECTOR. For IV, administer over 30 seconds., Indications: [...] mL (100 mcg/mL) infusion (premix) solution 3 09/22/202309/19 potassium, sodium phosphates (PHOS-NAK) 280-160-250 mg packet [...] 09/20/2023 dextrose (D10W) 10% bolus 250 mL 1 [...] 2 09/20/2023 Lactated Ringer's (LR) infusion 2 4 magnesium sulfate 4 g/100 mL in water (premix) 4 g 1 09/20/2023 naloxone (NARCAN) 0.4 mg/mL injection 0.04-0.4 mg 2 09/20/2023 09/16/2023 ondansetron (ZOFRAN) injection 4 mg 2 09/1909/16/2023 potassium chloride ER (KLOR- CON) extended release tablet 40 mEq 1 09/20/2023 sodium chloride 0.9% irrigation 1 thrombin-recombinant 5,000 u nit topical solution 1 [...] 09/16/2023 ioversoL (OPTIRAY 350) syringe 75 mL 08/2023 Lactated Ringer's (LR) bolus 1,000 mL 08/2023 meperidine (DEMEROL) preserv ative free injection 12.5 mg 1 09/16/2023 morphine injection 4 mg 1 09/16/2023 oxyCODONE (ROXICODONE) tablet 2.5 mg 08/2023 prochlorperazine (COMPAZINE) injection 5 mg 1 09/16/2023 senna-docusate (PERICOLACE) 8.6-50 mg per tablet 1 tablet 1 09/16/2023 sodium chloride 0.9% flush 0.5-20 mL 2 08/2023 Lab Orders Without Results Count Last [...] 09/20/2023 documented in this encounter Care Teams Systems Engineer Relationship Specialty Start Date End Date No, Physician PCP - General 09/16/23 01/17/24 documented as of this encounter
== END 2024-04-01 19:44 | disposition hospice, inpatient (51) | DRG 871 ==
LOC: ANHICU 03-28 07:07 → ANHIMU 03-29 18:19 → ANH3MED 03-31 16:57
PROVIDERS: Hospitalist; Internal Medicine; Admitting Provider Internal Medicine; PCP Internal Medicine; Visit Provider General Practice
DX: A41.9 Sepsis, unspecified organism (principal); E43 Unspecified severe protein-calorie malnutrition; L89.154 Pressure ulcer of sacral region, stage 4; L89.213 Pressure ulcer of right hip, stage 3; M46.28 Osteomyelitis of vertebra, sacral and sacrococcygeal region; N17.9 Acute kidney failure, unspecified; G93.40 Encephalopathy, unspecified; R65.20 Severe sepsis without septic shock; I48.91 Unspecified atrial fibrillation; E87.6 Hypokalemia; E87.8 Other disorders of electrolyte and fluid balance, not elsewhere classified; E50.9 Vitamin A deficiency, unspecified; D50.9 Iron deficiency anemia, unspecified; M47.812 Spondylosis without myelopathy or radiculopathy, cervical region; R13.10 Dysphagia, unspecified; Z74.01 Bed confinement status; Z93.3 Colostomy status; Z79.82 Long term (current) use of aspirin; Z51.5 Encounter for palliative care; Z68.22 Body mass index [BMI] 22.0-22.9, adult
CPT/HCPCS: 36415; 36430; 71045; 71250; 74176; 80048; 80053; 80202; 81001; 82565; 82728; 82948; 83036; 83540; 83550; 83605; 83735; 84100; 84145; 84146; 85025; 85610; 85730; 86850; 86900; 86901; 86923; 87040; 87086; 87641; 93005; 93306; A9270; J0613; J0692; J1160; J1644; J1650; J1836; J3370; J3411; J3475; J7050; P9016; P9045; P9047